=== PATIENT | female | born 1955 | race Caucasian/White ===

== ENCOUNTER 2023-05-11 13:53 | Outpatient (OUT) | payer MEDICARE, OTHER, SELFPAY ==
--- NOTE | 2023-05-11 14:03 | MM_ITS ---
Patient Name: BETH DONOVAN MR#: [id number] : 1955 Exam Date: 05/11/2023 Ordering Doctor: DR ADI GRANT M.D. RADIOLOGY REPORT PROCEDURE: MM TOMOSYNTHESIS SCREENING BI COMPARISON: MG MAMM SCREEN 3D ALFA CAD, 05/11/2022. MG MAMM SCREEN 3D ALFA CAD, 05/05/2021. MG MAMM SCREEN ALFA W CAD, 05/05/2020. MG MAMM ALFA SCRN W CAD DIG, 04/19/2013. INDICATIONS: screening Calculator Name NCI Breast Cancer Risk Assessment Tool 5 Year Breast Cancer Risk 3.00% Lifetime Breast Cancer Risk 10.60% Personal Breast Cancer No Personal Ovarian Cancer No Treatments None Family Cancers Mother with breast cancer at age 75; Aunt-maternal with breast cancer at age ~70; Brother with kidney cancer at age ~50. LOCATION: [facility] BREAST COMPOSITION: Almost entirely fatty. FINDINGS: DIAGNOSTIC CATEGORY 2--BENIGN FINDING: RIGHT BREAST: No significant suspicious finding. Scattered benign-appearing calcifications are present. No significant change has occurred. LEFT BREAST: No significant suspicious finding. Scattered benign-appearing calcifications are present. No significant change has occurred. RECOMMENDATIONS: ROUTINE MAMMOGRAM AND CLINICAL EVALUATION IN 12 MONTHS. PLEASE NOTE: A NORMAL MAMMOGRAM DOES NOT EXCLUDE THE POSSIBILITY OF BREAST CANCER. A CLINICALLY SUSPICIOUS PALPABLE LUMP SHOULD BE BIOPSIED. Dictated by: Abdias Romeo M.D. on 05/11/2023 at 15:47 Approved by: Abdias Romeo M.D. on 05/11/2023 at 15:53
== END 2023-05-11 13:54 | disposition home or self-care (01) ==
LOC: MAMMO 13:58
PROVIDERS: PCP Internal Medicine; Visit Provider Internal Medicine
DX: Z12.31 Encounter for screening mammogram for malignant neoplasm of breast (principal); Z80.3 Family history of malignant neoplasm of breast; Z80.8 Family history of malignant neoplasm of other organs or systems
CPT/HCPCS: 77063; 77067

== ENCOUNTER 2023-05-14 23:20 | Inpatient (IN) | payer MEDICARE, OTHER, SELFPAY ==
[2023-05-14 23:23] VITALS: BP 176/76; PULSE 74; RESP 16; TEMP 37.1; O2SAT 95; BMI 44.6
--- OUTSIDE RECORDS SUMMARY | 2023-05-14 23:28 | XMS_ITS | CCD ---
Author Name Unknown Address [address] [place] [address] Organization [facility] Care Team Providers Care Ultimate Hoops Trainer Name Role Phone Ronnie Murphy Unavailable Unavailable Update Needed Unavailable Unavailable Asad Joiner Unavailable Unavailable Unavailable Unavailable Unavailable Ronnie Murphy Unavailable Unavailable Luana Cox Unavailable Unavailable Update Needed Unavailable Unavailable Unavailable Unavailable Unavailable Unavailable Unavailable Unavailable Bello Hilton II Primary Care Unavail able Irma, Dr. Nguyễn Referring Unavaila ble Traboulssyevgeniy, Dr. Nguyễn Attending Unavaila ble LAVERTU, Dr. RONNIE Clark Referring Unavailabl e KATHERINE, Dr. RONNIE Clark Attending UnavailBello Whatley IIxton Primary Care Unavail able Lilliam Montejo Unavailable Nikki Manning Unavailable MISC, DR GONZALEZ Attending Unavailable MISC, DR GONZALEZ Consulting Unavailable MISC, DR GONZALEZ Primary Care Unavailable MISC, DR GONZALEZ Admitting Unavailable ZIEBER, DR ABDIAS Chowdhury Consulting Unavailable DR BELLO HILTON Primary Care Unavailable HEMMER, DR MIKALA Greenberg Attending Unavailable HEMMER, DR MIKALA Greenberg Admitting Unavailable HEMMER, DR MIKALA Greenberg Consulting Unavailable LILLIAM MONTEJO Admitting Unavailable MISCortez, DR GONZALEZ Primary Care Unavailable LILLIAM MONTEJO Attending Unavailable LILLIAM MONTEJO Consulting Unavailable MISC, DR GONZALEZ Primary Care Unavailable MAYCO RENEE Attending Unavailable MAYCO RENEE Consulting Unavailable MAYCO RENEE Admitting Unavailable ANASTACIO BARBOZA Consulting Unavailable [place], Zeyad Consulting Unavailable Unavailable Primary Care Provider UnavailRONNIE Pierson Attending Unavailable Ben Wasserman Admitting Unavailab Ben Melendez Attending Unavailab Bello Yost Primary Care Unavailable Bello Hilton Primary Care Unavailable Lilliam Montejo Admitting Unavailable Lilliam Montejo Attending Unavailable Medications Current Medications Medication Drug Class(es) Dates Sig (Normalized) Sig (Original) 0.5 ML tirzepatide 5 MG/ML Auto-Injector [Mounjaro] (7 sources) Start: 10-19-2022 Mounjaro 2.5 MG/0.5ML as directed Subcutaneous weekly for 30 days E11.65 Rx Bin [id number], Group: [id number], PCN 3F, ID: [id number] Sep, Active Mounjaro 2.5 MG/ 0.5ML as directed Subcutaneous weekly for 30 days E11 Rx Bin [id number], Group: [id number], PCN 3F, ID: [id number]-- NOT covered Not-Taking Mounjaro 2.5 MG/ 0.5ML as directed Subcutaneous weekly for 30 days E11 Rx Bin [id number], Group: [id number], PCN 3F, ID: [id number]-- NOT covered Active Cholecalciferol (14 sources) Vitamin D Vitamin D3 1.25 MG (18725 UT) TAKE 1 CAPSULE BY MOUTH WEEKLY FOR 56 DAYS for 56 Not-Taking/PRN take 1 capsule by mouth once rishi ly Cholecalciferol 1.25 MG (15340 UT) 1 capsule Orally weekly for 56 days when complete take 4000 u daily OTC Active levothyroxine sodium 0.1 mg oral tablet (20 sources) l-Thyroxine Start: 01-09-2021 take 1 tablet by mouth once daily levothyroxine (Synthroid, Levoxyl) 100 mcg tablet Take 1 tablet (100 mcg) by mouth once daily. 0 01/09/2021 Active Start: 01-09-2021 Levothyroxine Sodium 100 MCG Oral Tablet Quantity: 30 Refills: 0 Ordered: 07-Feb-2021 DO Start : 09-Jan-2021 Active take 1 tablet by poli th once daily in the morning Synthroid 100 MCG 1 tablet in the morning on an empty stomach Orally Once a day Active End: 02-22-2023 levothyroxine (Synthroid) 25 mcg tablet Synthroid 25 MCG Oral Tablet Refills: 0 Active 0 02/22/2023 Discontinued (Therapy completed) Synthroid 25 MCG Oral Tablet Quantity: 0 Refills: 0 Ordered: 11-Dec-2013 DO Active LORazepam 0.5 mg oral tablet (14 sources) Benzodiazepine LORazepam (Ativa n) 0.5 mg tablet Ativan 0.5 MG Oral Tablet Refills: 0 Active 0 Active Ativan 0.5 MG Or al Tablet Quantity: 0 Refills: 0 Ordered: 11-Dec-2013 DO Active metFORMIN hydrochloride 500 mg oral tablet (16 sources) Biguanide take 1 tablet by poli th every twenty-four hours metFORMIN HCl 500 MG 1 tablet with a meal Orally Once a day Active take 1 tablet by poli th twice daily at mealtime metFORMIN (Glucophage) 500 mg tablet Adal e 1 tablet (500 mg) by mouth 2 times a day with meals. 0 Active omeprazole 20 mg delayed release oral capsule (20 sources) Proton Pump Inhibitor Start: 08-02-2019 take 1 capsule by mouth twice daily omeprazole (PriLOSEC) [address] capsule Take 1 capsule (20 mg) by mouth 2 times a day. 0 02/12/2020 Active Start: 05-11-2018 take 1 tablet by poli th twice daily Omeprazole 20 MG Oral Tablet Delayed Release TAKE 1 TABLET BY MOUTH TWICE DAILY Quantity: 180 Refills: 2 Ronnie Murphy MD Start : 11-May-2018 Active risperiDONE 2 mg oral tablet (20 sources) Atypical Antipsychotic Start: 11-28-2014 take 1 tablet by mouth once daily at bedtime risperiDONE (RisperDAL) 2 mg tablet Take 1 tablet (2 mg) by mouth once daily at bedtime. 0 11/28/2014 Active Start: 11-28-2014 risperiDONE 2 MG Oral Tablet Quantity: 30 Refills: 0 Ordered: 17-Jan-2015 DO Start : 28-Nov-2014 Active simvastatin 40 mg oral tablet (20 sources) HMG-CoA Reductase Inhibitor take 1 tablet by mouth every twenty-four hours Zocor 40 MG 1 tablet in the evening Orally Once a day Active Simvastatin 40 M G Oral Tablet Quantity: 0 Refills: 0 Ordered: 11-Dec-2013 DO Active 24 hr venlafaxine 75 mg extended release oral capsule (20 sources) Serotonin and Norepinephrine Reuptake Inhibitor take 1 capsule by mouth every twelve hours Effexor XR 75 MG 1 capsule with food Orally bid Active take 1 tablet by poli th twice daily at mealtime venlafaxine (Effexor) 75 mg tablet Take 1 tablet (75 mg) by mouth 2 times a day with meals. 0 Active Effexor 75 MG TA BS Quantity: 0 Refills: 0 Ordered: 11-Dec-2013 DO Active Completed/Discontinued Medications Medication Drug Class(es) Dates Sig (Normalized) Sig (Original) dexamethasone 6 mg oral tablet (12 sources) Corticosteroid Start: 04-20-2020 take 1 tablet by mouth every twenty-four hours dexAMETHasone 6 MG 1 tablet Orally Once a day for 5 day(s) Apr, Not-Taking/PRN dextromethorphan hydrobromide 30 mg / pyrilamine maleate 30 mg oral tablet (12 sources) Uncompetitive F-cvxajw-H-aspartat e Receptor Antagonist, Sigma-1 Agonist Start: 04-20-2020 take 1 tablet by mouth every six hours [place] DMT 30-30 MG 1 tablet Orally every 6 hours for 7 days Apr, Not-Taking/PRN 12 hr hyoscyamine sulfate 0.375 mg extended release oral tablet (4 sources) Start: 10-17-2014 take 1 tablet by mouth every twelve hours as needed Hyoscyamine Sulfate ER 0.375 MG Oral Tablet Extended Release 12 Hour TAKE 1 TABLET BY MOUTH EVERY 12 HOURS NEEDED FOR SWEATING Quantity: 60 Refills: 0 Start : 17-Oct-2014 Active 3 ml liraglutide 6 mg/ml pen injector (4 sources) GLP-1 Receptor Agonist Start: 02-01-2023 Victoza 18 MG/3ML 0.6 mg Subcutaneous daily for 30 days Start Victoza at 0.6 mg sq daily x 1 week, increase by 0.6 mg weekly to max dose of 1.8 mg. Hold escalation for toleration issues and call prescriber for instructions. Jan, Not-Taking/PRN mounjaro 2.5 mg/0.5ml solution pen-injector (1 source) Mounjaro 2.5 MG/0.5ML as directed Subcutaneous weekly for 30 days E11.65 Rx Bin [id number], Group: [id number], PCN 3F, ID: [id number]-- NOT covered Not-Taking/PRN 0.25 mg, 0.5 mg dose 1.5 ml semaglutide 1.34 mg/ml pen injector (8 sources) End: 02-22-2023 semaglutide (Ozempic) 0.25 mg or 0.5 mg(2 mg/1.5 mL) pen injector 1 (one) time per week. 0 02/22/2023 Discontinued (Therapy completed) Ozempic (0.25 or 0.5 MG/DOSE) 2 MG/1.5ML SOPN weekly Quantity: 0 Refills: 0 Ordered: 01-Jun-2022 DO Active terbinafine 250 mg oral tablet (4 sources) Allylamine Antifungal Start: 09-25-2015 take 1 tablet by mouth once daily Terbinafine HCl - 250 MG Oral Tablet TAKE 1 TABLET EVERY DAY Quantity: 30 Refills: 0 Start : 25-Sep-2015 Active Problems Active Problems Problem Classification Problem Date Documented Da te Episodic/Chronic Acute bronchitis (16 sources) Acute bronchitis; Translations: [Acute bronchitis] Episodic Anxiety disorders (16 sources) Mixed anxiety and depressive disorder; Translations: [Other specified anxiety disorders] Chronic Chronic obstructive pulmonary disease and bronchiectasis (16 sources) Bronchitis; Translations: [Bronchitis, not specified as acute or chronic] Episodic Diabetes mellitus with complications (17 sources) Type II diabetes mellitus uncontrolled; Translations: [Type 2 diabetes mellitus with hyperglycemia] Onset: 3 Chronic Diabetes mellitus without complication (4 sources) Diabetes mellitus; Translations: [Diabetes mellitus without mention of complication, type II or unspecified type, not stated as uncontrolled] Onset: 3 01-23-2023 Chronic Disorders of lipid metabolism (20 sources) Hyperlipidemia; Translations: [Other and unspecified hyperlipidemia] Onset: 3 Chronic Esophageal disorders (17 sources) Gastroesophageal reflux disease; Translations: [Esophageal reflux] Onset: 3 01-23-2023 Chronic Fluid and electrolyte disorders (1 source) Dehydration; Translations: [DEHYDRATION] Onset: 3 Episodic Genitourinary symptoms and ill-defined conditions (1 source) Personal history of urinary (tract) infections; Translations: [PERS HX URINARY TRACT INFECTIONS] Onset: 3 Episodic Heart valve disorders (1 source) Rheumatic disorders of both mitral and aortic valves; Translations: [RHEUMATIC D/O MITRAL AORTIC VALVES] Onset: 3 Chronic Malaise and fatigue (6 sources) Other fatigue; Translations: [Weakness] Onset: 3 Episodic Menopausal disorders (1 source) Hormone replacement therapy; Translations: [HORMONE REPLACEMENT THERAPY] Onset: 3 Episodic Nausea and vomiting (1 source) Nausea with vomiting, unspecified; Translations: [NAUSEA WITH VOMITING UNSPECIFIED] Onset: 3 Episodic Nutritional deficiencies (14 sources) Vitamin D deficiency; Translations: [Vitamin D deficiency, unspecified] Onset: 3 Chronic Other aftercare (1 source) intermodal dispatcher (current) use of oral hypoglycemic drugs; Translations: [PRODUCT DEVELOPMENT WORKER USE ORAL HYPOGLYCEMIC DX] Onset: 3 Episodic Other aftercare (1 source) Other intermodal dispatcher (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; Translations: [OTH PRODUCT DEVELOPMENT WORKER CURRENT DRUG THERAPY] Onset: 3 Episodic Other ear and sense organ disorders (12 sources) Impacted cerumen; Translations: [Impacted cerumen] Episodic Other gastrointestinal disorders (17 sources) Dysphagia; Translations: [Dysphagia, unspecified] Onset: 3 01-23-2023 Episodic Other gastrointestinal disorders (5 sources) Heartburn; Translations: [HEARTBURN] Onset: 3 Episodic Other gastrointestinal disorders (1 source) Diarrhea, unspecified; Translations: [DIARRHEA UNSPECIFIED] Onset: 3 Episodic Other lower respiratory disease (4 sources) Dyspnea; Translations: [Other respiratory abnormalities] Onset: 3 01-23-2023 Episodic Other lower respiratory disease (4 sources) Snoring Episodic Other nutritional; endocrine; and metabolic disorders (16 sources) Body mass index 40+ - severely obese; Translations: [Morbid obesity] Onset: 3 01-23-2023 Chronic Other nutritional; endocrine; and metabolic disorders (20 sources) Obesity; Translations: [Obesity, unspecified] Chronic Other nutritional; endocrine; and metabolic disorders (12 sources) Obesity, unspecified; Translations: [OBESITY UNSPECIFIED] Onset: 3 Chronic Other nutritional; endocrine; and metabolic disorders (8 sources) Body mass index (BMI) 40.0-44.9, adult Chronic Other screening for suspected conditions (not mental disorders or infectious disease) (8 sources) Echocardiogram abnormal; Translations: [Nonspecific (abnormal) findings on radiological and other examination of other intrathoracic organs] Onset: 3 Episodic Other upper respiratory disease (18 sources) Stenosis of trachea; Translations: [Other diseases of trachea and bronchus] Onset: 3 02-22-2023 Episodic Other upper respiratory disease (2 sources) Other specified diseases of upper respiratory tract; Translations: [Other specified diseases of upper respiratory tract] Onset: 3 Episodic Residual codes; unclassified (3 sources) Sleep apnea; Translations: [Unspecified sleep apnea] Chronic Residual codes; unclassified (13 sources) Obstructive sleep apnea syndrome; Translations: [Obstructive sleep apnea (adult) (pediatric)] Onset: 3 01-23-2023 Chronic Residual codes; unclassified (9 sources) Obstructive sleep apnea (adult) (pediatric); Translations: [OBSTRUCTIVE SLEEP APNEA] Onset: 3 Chronic Residual codes; unclassified (1 source) Never smoked any substance; Translations: [Other specified health status] Onset: 3 01-23-2023 Episodic Thyroid disorders (20 sources) Hypothyroidism; Translations: [Unspecified acquired hypothyroidism] Onset: 3 Chronic Comment on above: Added by Problem Lis t Migration; 2013-02-28; Moved to Suppressed Mar 24 2013 9:03PM; Unclassified (1 source) CONTACT W/AND (SUSP) EXPOS COVID-19; Translations: [CONTACT W/AND (SUSP) EXPOS COVID-19] Onset: 3 Unclassified (1 source) Dietary counseling and surveillance; Translations: [Dietary counseling and surveillance] Onset: 3 Past or Other Problems Problem Classification Problem Date Documented Da te Episodic/Chronic Other lower respiratory disease (1 source) Other forms of dyspnea; Translations: [OTHER FORMS OF DYSPNEA] Onset: 05-13-2022 Episodic Residual codes; unclassified (1 source) Localized edema; Translations: [LOCALIZED EDEMA] Onset: 05-13-2022 Episodic Residual codes; unclassified (1 source) Family history of malignant neoplasm of breast; Translations: [FAMILY HX MALIG NEOPLASM OF BREAST] Onset: 05-13-2022 Episodic Residual codes; unclassified (1 source) Family history of malignant neoplasm of kidney; Translations: [FAM HX MALIGNANT NEOPLASM KIDNEY] Onset: 05-13-2022 Episodic Unclassified (1 source) Exposure to 2019 novel coronavirus; Translations: [Contact with and (suspected) exposure to COVID19] Unclassified (3 sources) Never smoked tobacco; Translations: [Never a smoker] Unclassified (1 source) Onset: 02-22-2023 02-22-2023 NEGATED: Highlighted row has not occurred!Residual codes; unclassified (12 sources) Disease Episodic Results Test Name Value Interpretation Reference Range Facility GLYCOHEMOGLOBIN A1Con 2022 ADA RECOMMENDATION SEE BELOW Normal [facility] Comment on above: Result Comment: ADA RECOMMENDED LIMIT 4.0 - 6.0 ADA THERAPEUTIC TARGET < 7.0 ACTION SUGGESTED > 7.0 Performed By: #### P TT, PT #### [facility] [address] [place] [address] Dr. Vivian Fall Glucose [Mass/Vol] 120 mg/dL Normal [facility] Comment on above: Performed By: #### P TT, PT #### [facility] [address] [place] [address] Dr. Vivian Fall HbA1c (Bld) [Mass fraction] 5.8 % Normal 4.5-6.2 [facility] Comment on above: Performed By: #### P TT, PT #### [facility] [address] [place] [address] Dr. Vivian Fall LIPID PROFILEon 09-02-2022 CHOL-HDL RATIO NORM SEE BELOW Normal [facility] Comment on above: Result Comment: 3.3 - 4.4 LOW RISK 4.4 - 7.1 AVERAGE RISK 7.1 - 11.0 MODERATE RISK >11.0 HIGH RISK Performed By: #### P TT, PT #### [facility] [address] [place] [address] Dr. Vivian Fall Cholesterol [Mass/Vol] 171 mg/dL Normal <=200 [facility] Comment on above: Performed By: #### P TT, PT #### [facility] [address] [place] [address] Dr. Vivian Fall Cholesterol in HDL [Mass/Vol] 52 mg/dL Normal 40-60 [facility] Comment on above: Performed By: #### P TT, PT #### [facility] [address] [address] [address] Vivian Fall Cholesterol in LDL [Mass/Vol] 89.8 mg/dL Normal [facility] Comment on above: Performed By: #### P TT, PT #### [facility] [address] [place] [address] Dr. Vivian Fall Cholesterol.total/ Cholesterol in HDL [Mass ratio] 3.3 {ratio} Normal [facility] Comment on above: Performed By: #### P TT, PT #### [facility] [address] [place] [address] Dr. Vivian Fall HDL NORMAL > or = 60 mg/dl - LO W CARDIOVASCULAR RISK <40 mg/dl - HIGH CARDIOVASCULAR RISK Normal [facility] Comment on above: Performed By: #### P TT, PT #### [facility] [address] [place] [address] Dr. Vivian Fall LDL CALC NORMAL SEE BELOW Normal [facility] Comment on above: Result Comment: <100 mg/dl OPTIMAL 100 - 129 mg/dl NEAR OR ABOVE OPTIMAL 130 - 159 mg/dl BORDERLINE HIGH 160 - 189 mg/dl HIGH >190 mg/dl VERY HIGH Performed By: #### P TT, PT #### [facility] [address] [place] [address] Dr. Vivian Fall Triglyceride [Mass/Vol] 146 mg/dL Normal <=150 [facility] Comment on above: Performed By: #### P TT, PT #### [facility] [address] [place] [address] Dr. Vivian Fall VLDL CALC 29.2 mg/dL Normal [facility] Comment on above: Performed By: #### P TT, PT #### [facility] [address] [place] [address] Dr. Vivian Fall PROF 14(COMP METB)on 023 Albumin [Mass/Vol] 3.6 g/dL Normal 3.4-5.0 [facility] Comment on above: Performed By: #### C MP, LIPID #### [facility] [address] [place] [address] Dr. Vivian Fall Albumin/Globulin [Mass ratio] 0.9 {ratio} Normal [facility] Comment on above: Performed By: #### C MP, LIPID #### [facility] [address] [place] [address] Dr. Vivian Fall ALP [Catalytic activity/Vol] 81 U/L Normal 46-116 [facility] Comment on above: Performed By: #### C MP, LIPID #### [facility] [address] [place] [address] Dr. Vivian Fall ALT [Catalytic activity/Vol] 22 U/L Normal 14-59 [facility] Comment on above: Performed By: #### C MP, LIPID #### [facility] [address] [place] [address] Dr. iVvian Fall Anion gap [Moles/Vol] 12.5 mmol/L Normal [facility] Comment on above: Performed By: #### C MP, LIPID #### [facility] [address] [place] [address] Dr. Vivian Fall AST [Catalytic activity/Vol] 15 U/L Normal 15-37 [facility] Comment on above: Performed By: #### C MP, LIPID #### [facility] [address] [place] [address] Dr. Vivian Fall Bilirubin [Mass/Vol] 0.6 mg/dL Normal 0.2-1.0 [facility] Comment on above: Performed By: #### C MP, LIPID #### [facility] [address] [place] [address] Dr. Vivian Fall Calcium [Mass/Vol] 9.1 mg/dL Normal 8.5-10.1 [facility] Comment on above: Performed By: #### C MP, LIPID #### [facility] [address] [place] [address] Dr. Vivian Fall Chloride [Moles/Vol] 103 mmol/L Normal 98-107 [facility] Comment on above: Performed By: #### C MP, LIPID #### [facility] [address] [place] [address] Dr. Vivian Fall CO2 [Moles/Vol] 27.6 mmol/L Normal 21.0-32.0 [facility] Comment on above: Performed By: #### C MP, LIPID #### [facility] [address] [place] [address] Dr. Vivian Fall Creatinine [Mass/Vol] 0.78 mg/dL Normal 0.55-1.02 [facility] Comment on above: Performed By: #### C MP, LIPID #### [facility] [address] [place] [address] Dr. Vivian Fall EGFR-AF BRAZILIAN >60 Normal >=60 [facility] Comment on above: Performed By: #### C MP, LIPID #### [facility] [address] [place] [address] Dr. Vivian Fall EGFR-NON AF BRAZILIAN >60 Normal >=60 [facility] Comment on above: Performed By: #### C MP, LIPID #### [facility] [address] [place] [address] Dr. Vivian Fall Globulin (S) [Mass/Vol] 3.8 g/dL Normal [facility] Comment on above: Performed By: #### C MP, LIPID #### [facility] [address] [place] [address] Dr. Vivian Fall Glucose [Mass/Vol] 105 mg/dL Normal 74-106 [facility] Comment on above: Performed By: #### C MP, LIPID #### [facility] [address] [place] [address] Dr. Vivian Fall Potassium [Moles/Vol] 4.1 mmol/L Normal 3.5-5.1 [facility] Comment on above: Performed By: #### C MP, LIPID #### [facility] [address] [place] [address] Dr. Vivian Fall Protein [Mass/Vol] 7.4 g/dL Normal 6.4-8.2 [facility] Comment on above: Performed By: #### C MP, LIPID #### [facility] [address] [place] [address] Dr. Vivian Fall Sodium [Moles/Vol] 139 mmol/L Normal 136-145 [facility] Comment on above: Performed By: #### C MP, LIPID #### [facility] [address] [place] [address] Dr. Vivian Fall Urea nitrogen [Mass/Vol] 11.0 mg/dL Normal 7.0-18.0 [facility] Comment on above: Performed By: #### C MP, LIPID #### [facility] [address] [place] [address] Dr. Vivian Fall Urea nitrogen/Creatinin e [Mass ratio] 14.1 mg/mg Normal [facility] Comment on above: Performed By: #### C MP, LIPID #### [facility] [address] [place] [address] Dr. Vivian Fall VITAMIN B12on 09-02-2022 Cobalamin (Vitamin B12) [Mass/Vol] 373.0 pg/mL Normal 193.0-986.0 [facility] Comment on above: Performed By: #### P TT, PT #### [facility] [address] [place] [address] Dr. Vivian Fall VITAMIN D 25 OHon 09-02-2022 VIT D 25-OH 16.1 ng/mL Normal [facility] Comment on above: Performed By: #### P TT, PT #### [facility] [address] [place] [address] Dr. Vivian Fall VIT D RANGES SEE BELOW Normal [facility] Comment on above: Result Comment: <20 ng/mL Vit D deficient 20 - <30 ng/mL Vit D insufficient 30 - 100 ng/mL Vit D sufficient >100 ng/mL Potential Toxicity Performed By: #### P TT, PT #### [facility] [address] [place] [address] Dr. Vivian Fall BNPon 06-29-2022 Natriuretic peptide B (Bld) [Mass/Vol] 223.0 pg/mL Normal <=900.0 [facility] Comment on above: Performed By: #### C MP, HSTROPN, BNP #### [facility] [address] [place] [address] Dr. Vivian Fall CBC AUTO DIFFon 06-29-2022 BASO # 0.0 103/ul Normal 0.0-0.1 [facility] Comment on above: Performed By: #### C BC #### [facility] [address] [place] [address] Dr. Vivian Fall Basophils/100 WBC (Bld) 0.2 % Normal 0.2-2.0 [facility] Comment on above: Performed By: #### C BC #### [facility] [address] [place] [address] Dr. Vivian Fall EO # 0.0 103/ul Normal 0.0-0.7 [facility] [facility] Comment on above: Performed By: #### C BC #### [facility] [address] [place] [address] Dr. Vivian Fall Eosinophils/100 WBC (Bld) 0.0 % Critically low 0.9-7.0 [facility] Comment on above: Performed By: #### C BC #### [facility] [address] [place] [address] Dr. Vivian Fall Erythrocyte distribution width (RBC) [Ratio] 13.0 % Normal 11.0-15.0 [facility] Comment on above: Performed By: #### C BC #### [facility] [address] [place] [address] Dr. Vivian Fall Hematocrit (Bld) [Volume fraction] 36.2 % Normal 36.0-48.0 [facility] Comment on above: Performed By: #### C BC #### [facility] [address] [place] [address] Dr. Vivian Fall Hemoglobin (Bld) [Mass/Vol] 12.2 g/dL Normal 12.0-16.0 [facility] Comment on above: Performed By: #### C BC #### [facility] [address] [place] [address] Dr. Vivian Fall IG # 0.08 10e3/ul Critically high 0.00-0.03 [facility] Comment on above: Performed By: #### C BC #### [facility] [address] [address] [address] Vivian Fall IG % 1.3 % Critically high 0.0-0.5 [facility] Comment on above: Performed By: #### C BC #### [facility] [address] [place] [address] Dr. Vivian Fall LYMPH # 0.3 103/ul Critically low 1.2-3.8 [facility] Comment on above: Performed By: #### C BC #### [facility] [address] [place] [address] Dr. Vivian Fall Lymphocytes/100 WBC (Bld) 4.2 % Critically low 20.5-60.0 [facility] Comment on above: Performed By: #### C BC #### [facility] [address] [place] [address] Dr. Vivian Fall MANUAL DIFF REQ NO Normal [facility] Comment on above: Performed By: #### C BC #### [facility] [address] [place] [address] Dr. Vivian Fall MCH (RBC) [Entitic mass] 29.2 pg Normal 26.7-34.0 [facility] Comment on above: Performed By: #### C BC #### [facility] [address] [place] [address] Dr. Vivian Fall MCHC (RBC) [Mass/Vol] 33.7 g/dL Normal 29.9-35.2 [facility] Comment on above: Performed By: #### C BC #### [facility] [address] [place] [address] Dr. Vivian Fall MCV (RBC) [Entitic vol] 86.6 fL Normal 81.0-99.0 [facility] Comment on above: Performed By: #### C BC #### [facility] [address] [place] [address] Dr. Vivian Fall MONO # 0.2 103/ul Critically low 0.3-0.8 [facility] Comment on above: Performed By: #### C BC #### [facility] [address] [place] [address] Dr. Vivian Fall Monocytes/100 WBC (Bld) 3.5 % Normal 1.7-12.0 [facility] Comment on above: Performed By: #### C BC #### [facility] [address] [place] [address] Dr. Vivian Fall NEUT # 5.7 103/ul Normal 1.4-6.5 [facility] Comment on above: Performed By: #### C BC #### [facility] [address] [place] [address] Dr. Vivian Fall Neutrophils/100 WBC (Bld) 90.8 % Critically high 43.0-75.0 [facility] Comment on above: Performed By: #### C BC #### [facility] [address] [place] [address] Dr. Vivian Fall Platelet mean volume (Bld) [Entitic vol] 9.8 fL Normal 9.5-13.5 [facility] Comment on above: Performed By: #### C BC #### [facility] [address] [place] [address] Dr. Vivian Fall PLT 224 103/ul Normal 150-450 [facility] Comment on above: Performed By: #### C BC #### [facility] [address] [place] [address] Dr. Vivian Fall RBC 4.18 106/ul Critically low 4.20-5.40 [facility] Comment on above: Performed By: #### C BC #### [facility] [address] [place] [address] Dr. Vivian Fall WBC 6.3 103/ul Normal 4.0-11.0 [facility] Comment on above: Performed By: #### C BC #### [facility] [address] [place] [address] ABD/PELVIS WO CONon 06-29 CT ABD/PELVIS WO CON EXAMINATION: CT ABD/PELVIS WO CON, 06/29/2022 10:19 AM EST HISTORY: Altered mental status. COMPARISON: None. TECHNIQUE: CT scan of the abdomen and pelvis was performed without IV contrast. CT dose reduction technique was used, including Automated Exposure Control. FINDINGS: Lower chest: Unremarkable. Solid organs: The liver is enlarged measuring 21.5 cm in longitudinal dimension. There may be a gallstone within the gallbladder however this is not definite. There is no biliary dilatation. There is moderate fatty infiltration of the pancreatic head and mild fatty infiltration of the pancreatic body and tail. The pancreas is otherwise unremarkable. The spleen is normal size. There is a nonspecific 1.2 cm right adrenal nodule measuring 37 Hounsfield units. The left adrenal gland is unremarkable. The right kidney is nonrotated, a variant of normal. The bilateral kidneys are otherwise unremarkable. Bowel: There is a moderate amount of stool within the colon. The colon is unremarkable. The appendix is unremarkable. The distal esophagus, stomach and small bowel are unremarkable. The bowel gas pattern is nonobstructive. Vasculature: There is a small atheromatous calcification at the origin of the left main renal artery. The abdominal aorta is normal size. The inferior vena cava is unremarkable. Inflammation: There is no free air or free fluid. There is no inflammatory process. Lymphadenopathy: The gastrohepatic lymph nodes measure up to 1.5 x 0.6 cm. The periportal lymph nodes measure up to 1.5 x 1.0 cm and 1.5 x 1.3 cm. The periportal lymph nodes measure up to 1.8 x 0.8 cm and 1.8 x 1.2 cm. There are no pathologically enlarged mesenteric, retroperitoneal, iliac chain, pelvic or inguinal lymph nodes. Pelvis: The urinary bladder is almost completely collapsed and otherwise grossly unremarkable. The uterus and adnexal regions are grossly unremarkable. Osseous: Multilevel degenerative changes spine. IMPRESSION: Nonobstructive bowel gas pattern with a moderate amount of stool within the colon. There is no inflammatory process. The liver is enlarged measuring 21.5 cm in longitudinal dimension. There may be a gallstone within the gallbladder however this is not definite. There is no biliary dilatation. Moderate fatty infiltration of the pancreatic head and mild fatty infiltration of the pancreatic body and tail. Nonspecific 1.2 cm right adrenal nodule measuring 37 Hounsfield units. Mildly enlarged periportal and portacaval lymph nodes measuring up to 1.5 x 1.3 cm within the periportal region and 1.8 x 1.2 cm within the portal caval region. A follow-up CT examination of the abdomen/pelvis with intravenous contrast in 3 months is recommended to confirm stability. Electronically authenticated by: ANASTACIO BARBOZA Date: 2022-06-29 11:26 Normal [facility] CULTURE BLOODon 06-29-2022 Microscopic examination of blood, culture Culture Observations: NO GROWTH AT 5 DAYS. Isolate 1 BC_[id number] Normal [facility] Comment on above: Performed By: #### P TT, PT #### [facility] [address] [place] [address] Dr. Vivian Fall Microscopic examination of blood, culture Culture Observations: NO GROWTH AT 5 DAYS. Isolate 1 BC_[id number] Normal [facility] Comment on above: Performed By: #### P TT, PT #### [facility] [address] [place] [address] Dr. Vivian Fall CULTURE URINEon 06-29-2022 CULTURE URINE Culture Observations : NO GROWTH. Normal [facility] Comment on above: Performed By: #### P TT, PT #### [facility] [address] [place] [address] Dr. Vivian Fall Covid-19 PCR (CVDTBH)on 06-03 SARS-CoV-2 (COVID-19) RNA JONY+probe Ql (Unsp spec) Not detected Normal NOT DETECTED [facility] Comment on above: Result Comment: When diagnostic testing is negative, the possibility of a false negative should be considered in the context of a patient's recent exposures and the presence of clinical signs and symptoms consistent with SARS-CoV-2. This test is not yet approved or cleared by the [place] FDA. When there are no FDA-approved or cleared tests available, and other criteria are met, FDA can make tests available under an emergency access mechanism called an Emergency Use Authorization (EUA). The EUA for this test is supported by the Engineering Librarian of Health and Human Service's declaration that circumstances exist to justify the emergency use of in vitro diagnostics for the detection and/or diagnosis of the virus that causes COVID-19. This EUA will remain in effect for the duration of the COVID-19 declaration justifying emergency of IVDs, unless it is terminated or revoked by the FDA (after which the test may no longer be used). Performed By: #### C VDTBH #### [facility] [address] [place] [address] Dr. Vivian Fall ER URINE PROFILEon 3 Bilirubin Ql (U) SMALL Abnormal NEGATIVE [facility] Comment on above: Performed By: #### P TT, PT #### [facility] [address] [place] [address] Dr. Vivian Fall Clarity (U) CLEAR Normal CLEAR [facility] Comment on above: Performed By: #### P TT, PT #### [facility] [address] [address] [address] Vivian Fall Color (U) DK. YELLOW Normal YELLOW [facility] Comment on above: Performed By: #### P TT, PT #### [facility] [address] [place] [address] Dr. Vivian LANGE A micrscopic examina tion will be performed if indicated. Normal [facility] Comment on above: Performed By: #### P TT, PT #### [facility] [address] [place] [address] Dr. Vivian Fall Glucose Ql (U) Negative Normal NEGATIVE [facility] Comment on above: Performed By: #### P TT, PT #### [facility] [address] [place] [address] Dr. Vivian Fall Hemoglobin Ql (U) TRACE-INTACT Abnormal NEGATIVE [facility] Comment on above: Performed By: #### P TT, PT #### [facility] [address] [place] [address] Dr. Vivian Fall Ketones Ql (U) Negative Normal NEGATIVE [facility] Comment on above: Performed By: #### P TT, PT #### [facility] [address] [place] [address] Dr. Vivian Fall LEUKOCYTES Negative Normal NEGATIVE [facility] Comment on above: Performed By: #### P TT, PT #### [facility] [address] [place] [address] Dr. Vivian Fall Nitrite Ql (U) Negative Normal NEGATIVE [facility] Comment on above: Performed By: #### P TT, PT #### [facility] [address] [place] [address] Dr. Vivian Fall pH (U) 6.0 [pH] Normal 5-9 [facility] Comment on above: Performed By: #### P TT, PT #### [facility] [address] [place] [address] Dr. Vivian Fall Protein (U) [Mass/Vol] 100 mg/dL Abnormal NEGATIVE/ TRACE [facility] Comment on above: Performed By: #### P TT, PT #### [facility] [address] [place] [address] Dr. Vivian Fall SPEC GRAVITY >=1.030 Abnormal 1.005-<=1.02 5 [facility] Comment on above: Performed By: #### P TT, PT #### [facility] [address] [place] [address] Dr. Vivian Fall UR MICRO IND INDICATED Normal [facility] Comment on above: Performed By: #### P TT, PT #### [facility] [address] [place] [address] Dr. Vivian Fall Urobilinogen Qn (U) 1.0 {Nia'U}/dL Normal 0.2 - 1.0 [facility] Comment on above: Performed By: #### P TT, PT #### [facility] [address] [place] [address] Dr. Vivian Fall LACTATE/LACTIC ACIDon 2022 Lactate [Moles/Vol] 1.3 mmol/L Normal 0.4-1.9 [facility] Comment on above: Performed By: #### L ACT #### [facility] [address] [place] [address] Dr. Vivian Fall Lactate [Moles/Vol] 3.1 mmol/L Critically high 0.4-1.9 [facility] Comment on above: Performed By: #### L ACT #### [facility] [address] [place] [address] Dr. Vivian Fall LIPASEon 06-29-2022 Lipase [Catalytic activity/Vol] 88.0 U/L Normal 73.0-393.0 [facility] Comment on above: Performed By: #### L IPA #### [facility] [address] [place] [address] Dr. Vivian Fall PROF 14(COMP METB)on 023 Albumin [Mass/Vol] 3.4 g/dL Normal 3.4-5.0 [facility] Comment on above: Performed By: #### C MP, HSTROPN, BNP #### [facility] [address] [place] [address] Dr. Vivian Fall Albumin/Globulin [Mass ratio] 0.9 {ratio} Normal [facility] Comment on above: Performed By: #### C MP, HSTROPN, BNP #### [facility] [address] [place] [address] Dr. Vivian Fall ALP [Catalytic activity/Vol] 145 U/L Critically high 46-116 [facility] Comment on above: Performed By: #### C MP, HSTROPN, BNP #### [facility] [address] [place] [address] Dr. Vivian Fall ALT [Catalytic activity/Vol] 454 U/L Critically high 14-59 [facility] Comment on above: Performed By: #### C MP, HSTROPN, BNP #### [facility] [address] [place] [address] Dr. Vivian Fall Anion gap [Moles/Vol] 15.7 mmol/L Normal [facility] Comment on above: Performed By: #### C MP, HSTROPN, BNP #### [facility] [address] [place] [address] Dr. Vivian Fall AST [Catalytic activity/Vol] 404 U/L Critically high 15-37 [facility] Comment on above: Performed By: #### C MP, HSTROPN, BNP #### [facility] [address] [place] [address] Dr. Vivian Fall Bilirubin [Mass/Vol] 1.4 mg/dL Critically high 0.2-1.0 [facility] Comment on above: Performed By: #### C MP, HSTROPN, BNP #### [facility] [address] [place] [address] Dr. Vivian Fall Calcium [Mass/Vol] 8.7 mg/dL Normal 8.5-10.1 [facility] Comment on above: Performed By: #### C MP, HSTROPN, BNP #### [facility] [address] [address] [address] Vivian Fall Chloride [Moles/Vol] 94 mmol/L Critically low 98-107 [facility] Comment on above: Performed By: #### C MP, HSTROPN, BNP #### [facility] [address] [place] [address] Dr. Vivian Fall CO2 [Moles/Vol] 22.0 mmol/L Normal 21.0-32.0 [facility] Comment on above: Performed By: #### C MP, HSTROPN, BNP #### [facility] [address] [place] [address] Dr. Vivian Fall Creatinine [Mass/Vol] 1.30 mg/dL Critically high 0.55-1.02 [facility] Comment on above: Performed By: #### C MP, HSTROPN, BNP #### [facility] [address] [place] [address] Dr. Vivian Fall EGFR-AF BRAZILIAN 50 mL/min/1.73m2 Critically low >=60 [facility] Comment on above: Performed By: #### C MP, HSTROPN, BNP #### [facility] [address] [place] [address] Dr. Vivian Fall EGFR-NON AF BRAZILIAN 41 mL/min/1.73m2 Critically low >=60 [facility] Comment on above: Performed By: #### C MP, HSTROPN, BNP #### [facility] [address] [place] [address] Dr. Vivian Fall Globulin (S) [Mass/Vol] 3.7 g/dL Normal [facility] Comment on above: Performed By: #### C MP, HSTROPN, BNP #### [facility] [address] [place] [address] Dr. Vivian Fall Glucose [Mass/Vol] 166 mg/dL Critically high 74-106 [facility] Comment on above: Performed By: #### C VERONIKA HSTROPN, BNP #### [facility] [address] [address] [address] Vivian Fall Potassium [Moles/Vol] 3.7 mmol/L Normal 3.5-5.1 [facility] Comment on above: Performed By: #### C VERONIKA HSTROPN, BNP #### [facility] [address] [address] [address] Vivian Fall Protein [Mass/Vol] 7.1 g/dL Normal 6.4-8.2 [facility] Comment on above: Performed By: #### C VERONIKA HSTROPN, BNP #### [facility] [address] [place] [address] Dr. Vivian Fall Sodium [Moles/Vol] 128 mmol/L Critically low 136-145 [facility] Comment on above: Performed By: #### C VERONIKA, HSTROPN, BNP #### [facility] [address] [address] [address] Vivian Fall Urea nitrogen [Mass/Vol] 15.0 mg/dL Normal 7.0-18.0 [facility] Comment on above: Performed By: #### C VERONIKA HSTROPN, BNP #### [facility] [address] [place] [address] Dr. Vivian Fall Urea nitrogen/Creatinin e [Mass ratio] 11.5 mg/mg Normal [facility] Comment on above: Performed By: #### C MP, HSTROPN, BNP #### [facility] [address] [place] [address] Dr. Vivian Fall PROTIMEon 06-29-2022 INR Coag (PPP) [Relative time] 1.08 {INR} [facility] Comment on above: Performed By: #### P TT, PT #### [facility] [address] [place] [address] Dr. Vivian Fall INR GUIDELINES SEE BELOW Normal [facility] Comment on above: Result Comment: DEEJAY RED INR: 2.0 - 3.0 CONDITIONS NOT LISTED BELOW 2.5 - 3.5 FOR PROSTHETIC HEART VALVE REPLACEMENT 2.5 - 3.5 RECURRENT THROMBOSIS Performed By: #### P TT, PT #### [facility] [address] [place] [address] Dr. Vivian Fall PT Coag (PPP) [Time] 11.4 s Normal 9.0-11.6 [facility] Comment on above: Performed By: #### P TT, PT #### [facility] [address] [place] [address] Dr. Vivian Fall PTTon 06-29-2022 aPTT Coag (Bld) [Time] 32.2 s Normal 22.3-36.2 [facility] Comment on above: Performed By: #### P TT, PT #### [facility] [address] [place] [address] Dr. Vivian Fall TROPONIN, HIGH SENSITIVITYon 06-29-2022 HSTROP 5.8 pg/mL Normal 4.0-51.3 [facility] Comment on above: Result Comment: CUT- OFF POINTS HAVE BEEN ESTABLISHED BASED ON THE FOURTH UNIVERSAL DEFINITIONS OF MYOCARDIAL INFARCTION. THE UPPER REFERENCE LIMIT (URL) OF TROPONIN, DEFINED THE 99TH PERCENTILE OF cTnI DISTRIBUTION IN A REFERENCE POPULATION, HAS BEEN CONFIRMED THE DECISION THRESHOLD FOR [place] DIAGNOSIS. Performed By: #### C MP, HSTROPN, BNP #### [facility] [address] [place] [address] Dr. Vivian Fall URINE MICROSCOPIC ONLYon BACTERIA SMALL Abnormal NONE SEEN [facility] Comment on above: Performed By: #### P TT, PT #### [facility] [address] [place] [address] Dr. Vivian Fall Bacteria identified Cx Nom (U) INDICATED Normal [facility] Comment on above: Performed By: #### P TT, PT #### [facility] [address] [place] [address] Dr. Vivian Fall CAST NONE SEEN Normal NONE SEEN [facility] Comment on above: Performed By: #### P TT, PT #### [facility] [address] [place] [address] Dr. Vivian Fall Crystals LM Nom (Urine sed) NONE SEEN Normal NONE SEEN [facility] Comment on above: Performed By: #### P TT, PT #### [facility] [address] [place] [address] Dr. Vivian Fall Epithelial cells LM Ql (Urine sed) FEW Abnormal NONE SEEN /RARE [facility] Comment on above: Performed By: #### P TT, PT #### [facility] [address] [place] [address] Dr. Vivian Fall MUCOUS SMALL Abnormal NONE SEEN [facility] Comment on above: Performed By: #### P TT, PT #### [facility] [address] [place] [address] Dr. Vivian Fall RBC 0-2 Normal 0-2 [facility] Comment on above: Performed By: #### P TT, PT #### [facility] [address] [place] [address] Dr. Vivian Fall WBC 0-2 Abnormal NONE SEEN [facility] Comment on above: Performed By: #### P TT, PT #### [facility] [address] [place] [address] Dr. Vivian Fall XR CHEST 1 Von 06-29-2022 XR CHEST 1 V EXAM: XR CHEST 1 V HISTORY: Altered mental status COMPARISON: None. TECHNIQUE: Frontal view of the chest. FINDINGS: No focal consolidations or pleural effusions. Cardiomegaly. Thoracic spine spondylosis. IMPRESSION: No acute disease. Cardiomegaly. 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 : dyspnea Morbid obesity with BMI of 40.0-44.9, adult, Sleep apnea Healthy Weight Tips; Status:Complete - Retrospective Authorization; Done: 01Jun2022 Some eating tips that can help you lose weight.; Status:Complete - Retrospective Authorization; Done: 01Jun2022 SocHx: Never a smoker Tobacco Use Screening; Status:Complete; Done: 01Jun2022 Patient Instructions Please bring all medicines, vitamins, and herbal supplements with you when you come to the office. Prescriptions will not be filled unless you are compliant with your follow up appointments or have a follow up appointment scheduled as per instruction of your physician. Refills should be requested at the time of your visit. Lexiscan Stress Test. Follow up in 3 months The provider reviewed the following test(s) and result(s) with the patient: ECG Chief Complaint BETH DONOVAN is being seen for a consultation for LVH. History of Present Illness Patient is here for cardiovascular evaluation for abnormal echocardiogram. She is a 67-year-old morbidly obese white female with history of sleep apnea who had the actual recorded measurement does not meet the criteria for that the actual measurement does not meet the criteria for LVH and a question RV dilatation but the study was of very poor quality. Patient admitted to functional class II and may be 3 shortness of breath. She can walk 1-2 blocks but developed shortness of breath. She admits to sedentary lifestyle. She reports history of sleep apnea but she is compliant with her CPAP. The patient have a history of tracheal stenosis and was seen by ENT in the past. The patient had multiple risk factor for ischemic heart disease including age, hyperlipidemia and diabetes mellitus in addition sedentary lifestyle and morbid obesity Plan 1. Borderline abnormal poor quality echocardiogram read at an outlying institution. It suggest ventricular hypertrophy even though the actual measurement does not meet the criteria for LVH in addition there was questionable RV dilatation which I suspect could be related to sleep apnea this quality of the study was poor and limited. 2. Symptoms of dyspnea on exertion appears to be multifactorial related to morbid obesity, sedentary lifestyle and history of tracheal stenosis however underlying ischemic heart disease has to be excluded patient functional class I she is morbidly obese unable to do a treadmill stress test 3. Diabetes mellitus 4. Morbid obesity 5. Sleep apnea compliant with CPAP 6. Hyperlipidemia 7. Reported history of tracheal stenosis has been seen by ENT Plan 1. I reassured the patient in regard to her echo finding that appears to be nonspecific and could be consistent with sleep apnea 2. I recommended proceeding with Lexiscan myocardial fusion study in view of complaint of shortness of breath functional class almost 3 with inability to do treadmill due to morbid obesity 3. We discussed primary prevention for coronary artery disease at great length 4. I encouraged her to continue her efforts to lose weight and exercise 5. Follow-up after testing is done Surgical History Problems History of Breast surgery History of Complete colonoscopy History of Hernia repair Current Meds Medication NameInstruction Effexor 75 MG TABSTAKE 1 TABLET TWICE DAILY WITH MEALS. Levothyroxine Sodium 100 MCG Oral TabletTAKE 1 TABLET DAILY. metFORMIN HCl - 500 MG Oral TabletTAKE 1 TABLET DAILY WITH FOOD. Omeprazole 20 MG Oral Capsule Delayed ReleaseTAKE 1 CAPSULE BY MOUTH TWICE A DAY Ozempic (0.25 or 0.5 MG/DOSE) 2 MG/1.5ML Subcutaneous Solution Pen-injectorweekly risperiDONE 2 MG Oral TabletTAKE 1 TABLET AT BEDTIME. Simvastatin 40 MG Oral TabletTAKE 1 TABLET AT BEDTIME. Allergies Medication No Known Drug Allergies Recorded By: Luana Cox; 04/09/2013 12:10:16 PM Family History Mother Family history of malignant neoplasm of breast (V16.3) (Z80.3) Father Family history of Family history of congestive heart failure (V17.49) (Z82.49) Family history of diabetes mellitus (V18.0) (Z83.3) Sister Family history of diabetes mellitus (V18.0) (Z83.3) Brother Family history of malignant neoplasm of kidney (V16.51) (Z80.51) Social H (more content not included)... Normal [employer] Tobacco Screening.on 023 Adult depression screening assessment No -[facility] 250 DO Work Phone: Fall risk assessment a) No falls within the last year [facility] 250 DO Work Phone: Tobacco use status [facility] b) No [facility] [place] 250 DO Work Phone: ECHOCARDIO M/2D COMPLETEon 0 05-11-2022 ECHOCARDIO M/2D COMPLETE Patient: BETH DONOVAN Exam Date: 05/11/2022 : 1955 Gender:F Ordering : DR MIKALA SINGH Admission #: [id number] Family : Order #: [id number] CLICK HERE TO VIEW EXAM ECHOCARDIOGRAM REPORT PROCEDURE: CARDIO PULMONARY ECHOCARDIO M/2D COMP INDICATIONS: Dyspnea on exertion, obstructive sleep apnea, diabetes COMPARISON: None. DESCRIPTION: COMPLETE ECHOCARDIOGRAM Real-time transthoracic echocardiography with 2D, M-mode, spectral and color flow Doppler performed. QUALITY: Technically difficult due to patient's condition. 67 258# BP 134/70 LEFT VENTRICLE: Normal chamber size. Mild concentric left ventricular hypertrophy. LV EF: Normal left ventricular ejection fraction, (>55%). Cannot comment on regional wall motion abnormalities. DIASTOLIC: Normal diastolic function. ATRIAL SEPTUM: Inadequately seen. LEFT ATRIUM: Normal chamber size. RIGHT ATRIUM: Mild dilatation. RIGHT VENTRICLE: Poorly seen. Appears enlarged. Systolic function appears reduced. TRICUSPID VALVE: Normal mobility and thickness. No regurgitation. Unable to assess right-sided pressures due to lack of measurable tricuspid regurgitation. MITRAL VALVE: Normal mobility and thickness. No evidence of mitral valve stenosis. There is no mitral annular calcification. No mitral regurgitation. AORTIC VALVE: Normal trileaflet appearance. No visible sclerosis. Normal leaflet mobility. No evidence of aortic valve stenosis. No aortic regurgitation. AORTIC ROOT: Normal diameter and appearance. PULMONIC VALVE: Not well visualized. No stenosis. No regurgitation. PERICARDIUM: No evidence of pericardial effusion. IVC: Collapses with inspirations. IVC is normal in size. CONCLUSION: Global left ventricular systolic function is difficult to assess but appears preserved; visually estimated ejection fraction is 60 to 65%. Cannot comment on regional wall motion abnormalities. Mild left ventricular hypertrophy. Normal diastolic function. The right atrium is dilated. The right ventricle is poorly seen but appears enlarged with reduced systolic function. Valves are poorly seen; no significant valvular abnormalities. Adult Echocardiography Procedure Report Left Ventricle LVEDD (3.7 - 5.6 cm): 4.52 cm LVESD (2.2 - 4.0 cm): 2.95 cm LVIVS thickness (0.6 - 1.2 cm): 1.04 cm LVPW thickness (0.5 - 1.0 cm): 1.11 cm e': 0.09 m/s E - e': 6.61 LVOT Max Gradient: 3.85 mm[Hg] Peak Velocity (LVOT): 0.98 m/s LVOT Diameter 2.17 cm Left Ventricular Ejection Fraction: 64.11 %, 64.11 % Left Atrium LA Volume Index (2D A2C): 73.12 ml, 73.12 ml Left Atrium Systolic Dimension: 3.72 cm Mitral Valve MV E to A Ratio: 0.77 Mitral Valve A-Wave Peak Velocity: 0.77 m/s Mitral Valve E-Wave Peak Velocity: 0.59 m/s Right Ventricle Aorta AO Root Diam: 3.36 cm Aortic Valve AoV Area (Peak Michael): 3.10 cm2, 3.10 cm2 Peak Velocity(Antegrade Flow): 1.17 m/s Peak Gradient(Antegrade Flow): 5.48 mm[Hg] Tricuspid Valve Peak Velocity: 0.66 m/s Pulmonic Valve Mean Gradient: 2.15 mm[Hg], 2.49 mm[Hg] Mean Velocity: 0.67 m/s, 0.72 m/s Peak Velocity: 1.01 m/s, 1.09 m/s, 1.10 m/s Peak Gradient: 4.85 mm[Hg], 4.10 mm[Hg], 4.78 mm[Hg] Right Atrium Right Atrium Systolic Pressure: 69.94 ml, 69.94 ml Dictated by: Joseline Alarcon M.D. on 05/13/2022 at 10:49 Approved by: Joseline Alarcon M.D. on 05/13/2022 at 10:52 Normal [facility] MG MAMM SCREEN 3D ALFA CADon 05-11-2022 MG MAMM SCREEN 3D ALFA CAD Patient: BETH DONOVAN Exam Date: 05/11/2022 : 1955 Gender:F Ordering : DR MIKALA SINGH Admission #: [id number] Family : Order #: [id number] CLICK HERE TO VIEW EXAM RADIOLOGY REPORT PROCEDURE: MAMMOGRAM SCREENING 3D BILATERAL CAD COMPARISON: MG MAMM SCREEN ALFA W CAD, 05/05/2020. MG MAMM SCREEN ALFA W CAD, 05/01/2019. DIGITIZED_MAMMO, 03/13/2009. MG MAMM SCREEN 3D ALFA CAD, 05/05/2021. INDICATIONS: Screening mammography Calculator Name NCI Breast Cancer Risk Assessment Tool 5 Year Breast Cancer Risk 3.00% Lifetime Breast Cancer Risk 11.00% Personal Breast Cancer No Personal Ovarian Cancer No Treatments None Family Cancers Mother with breast cancer at age 75; Aunt-maternal with breast cancer at age 70; Brother with kidney cancer at age 50. LOCATION: [facility] BREAST COMPOSITION: Almost entirely fatty. FINDINGS: DIAGNOSTIC CATEGORY 2--BENIGN FINDING: RIGHT BREAST: No significant suspicious finding. Scattered benign-appearing calcifications are present. No significant change has occurred. LEFT BREAST: No significant suspicious finding. Scattered benign-appearing calcifications are present. Stable, chronic scarring within lower breast adjacent skin surface. No significant change has occurred. RECOMMENDATIONS: ROUTINE MAMMOGRAM AND CLINICAL EVALUATION IN 12 MONTHS. PLEASE NOTE: A NORMAL MAMMOGRAM DOES NOT EXCLUDE THE POSSIBILITY OF BREAST CANCER. A CLINICALLY SUSPICIOUS PALPABLE LUMP SHOULD BE BIOPSIED. Dictated by: Abdias Romeo M.D. on 05/11/2022 at 14:19 Approved by: Abdias Romeo M.D. on 05/11/2022 at 14:26 Normal [facility] Established Visit (Otolaryng ology)on 02-09-2022 Established Visit (Otolaryngology) Diagnoses/Problems Tracheal stenosis (519.19) (J39.8) Esophageal reflux (530.81) (K21.9) Patient Discussion/Summary 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 Esophageal reflux for which we renewed her prescription for omeprazole. I will see her in 1 year. Provider Impressions 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 Esophageal reflux for which we renewed her prescription for omeprazole. I will see her in 1 year. Chief Complaint Follow-up regarding tracheal stenosis History of Present IllnessThis patient presented with a tracheal stenosis. I first saw her back in 2010 when the first dilation was done. She ended up being redilated in April of 2016. She seems to have had some issues going up stairs and doing any exercise. That does not seem to be worse than previously. At the same time it feels like it is somewhat limiting. She had a CT scan of her trachea done on March 03, 2021. I personally reviewed that scan. It does show a stenotic segment. I do not believe that the stenotic segment is stenosed in more than 40%. On March 19, 2021 she was brought to the operating room for CO2 laser and dilation. She is here today for follow-up. Her breathing has remained stable. Active Problems Bronchitis (490) (J40) Bronchitis, acute (466.0) (J20.9) Dysphagia (787.20) (R13.10) Esophageal reflux (530.81) (K21.9) Tracheal stenosis (519.19) (J39.8) Family History Family history of malignant neoplasm of breast (V16.3) (Z80.3) Family history of Family history of congestive heart failure (V17.49) (Z82.49) Family history of diabetes mellitus (V18.0) (Z83.3) Family history of malignant neoplasm of kidney (V16.51) (Z80.51) Social History Never a smoker No alcohol use Allergies No Known Drug Allergies Recorded By: Luana Cox; 04/09/2013 12:10:16 PM Current Meds Medication NameInstruction Ativan 0.5 MG Oral Tablet Effexor 75 MG TABS Levothyroxine Sodium 100 MCG Oral Tablet Omeprazole 20 MG Oral Capsule Delayed ReleaseTAKE ONE CAPSULE BY MOUTH TWICE A DAY risperiDONE 2 MG Oral Tablet Simvastatin 40 MG Oral Tablet Synthroid 25 MCG Oral Tablet Vitals Vital Signs Recorded: 09Feb2022 03:01PM Height5 ft 4 in Novvfg274 lb BMI Jsrxkbrceg34.35 kg/m2 BSA Calculated2.22 Tobacco Useb) No Falls Screening (Age 18+)c) Not medically indicated Physical Exam A flexible laryngoscopy was carried out. Under topical Xylocaine and Eleuterio-Synephrine the scope was introduced through the nostril. The nasopharynx, base of tongue, hypopharynx, and larynx are visualized. The vocal cords are normally mobile. I was not able to pass the scope below that area. 'Scores and Scales' Signatures Electronically signed by : Ronnie Murphy MD; Feb 09 2022 3:21PM EST (Author) Normal [facility] Tobacco Screening.on 022 Fall risk assessment c) Not medically indicated MG-Ot olaryng ology-[facility] Work Phone: Tobacco use status CP b) No MG-Otolaryng ology-[facility] Work Phone: Coding Summary.on 05-18-2021 Coding Summary. [id number] Gh0bWw +PGhlYWQ+GW2NTDXuO83xlQLqa M3HJ3kPHW0ZQAYSFGUJSA4OHP8 mxLU7TUejY7PcehRe DtbmmFSrUC86PSg4CID3lVgnGN dkzQ7khLLlB9t6ZeJhVN41pS05 JEffIUXwXvS1VgTkggrktNUg D7agMsVckUTsUfk+PHRhYmxlIH qzODFiITjqYDLnIqIbxLzbNP4b My0xLRJlZIZbxIimfMVuYoJf a2gxZSYtANeoCO0guAipG6XwwL B4CPTnh6z0Ex23gED+PHRkIHN0 sVfcWGjhh759ZmNkr1pgUMD9 tRKoFFprPZV7S85tl9M1WYGpBH GnKGO3nXS1tO3zgOtxzawrX8Pa mWCzWvV8RDQ8cPOdcY4fmOtc jsfcgX9oWib+V40ILZ8KVOMCEF 2XNds7T8YwIwjhyJM+AW42DXGr JC60jATmiPQip2ulaJk4TtHl MGSkFOH5yJpwGJqaa7CgBWYzQ2 5vxEHjd2Z9QIOawCzckFNuXrHz wUX8nQ7mJAtgzkkpb2nrwzmj Kliyb0lwoh47xC64B35cONamLQ QpWNY9SCIyVFJweLdwqo8cjN2o Ii8+RUrvm8bto6tzwEw2DaQo LYWjjeUizWqmVXY2v7HyJv83F8 TdpJmkp8UgZgs5xw92ePZcd6U4 sPB7WSegLQVytO7gFApzLvJ6 EFEeBtPmuP20pYUsVKyyVw1ddW eclQmwPQ3sYRKysumvSKZvwU4p GHJdnGXynWltPB7jIYWrmeri a737XxIyAMD3CLJwsJDeM3AnfP 4xTlAcZGIzFHArG8FzhZJyFDkq M200IVbaVeH0AIBkunJlJ6Ez OGMzyXcsGnG7w9F5Ci0Yu9Vpjp rbXJY4YDniRTOtUsP4LzIaZyK5 I9FsKmk2QZZkaRooIH1hI8Nm FQUkwzvhypshjKG6LXVnJPMqiN 86yIZbMBnwQo6oq7D9h457UXCa BJEkkN39Lr6esGsxDNOlvLCR mK5knryuz1lfikpyXrPgUKAcEI z5KCt7ICEzwFbhMyZhQGV4TqE9 OKU7bABguS2eiShysyxdiI0q Oyc+O32dbQ3gMCS2XRI1hjrkDX NzpjGiZC68ML27G8NcFozsoJFa bGU+LWWwddJmqMhtAI3hGdMo j1tli4ZrISauX1EzTXWzFMqcUe h8UFVkEFD2hYS8gB6sRIBwOYts j7Y6kDP4P1SbvyCoco7ui6vt MKJzLDxjT59nsLTca3C1DHWjoD N7MLYyjKloRwKysK93Bdf+PGNv gCwky5VwKdgjt2dbq3pqjYl6 KtUgGHUnvnRlrAwfKQB6k4XdCg 61P16iBXjtUIUoDLAfTKVgFNOm oSairo6doV7pEr3+PGNvbCB3 sKY9eH8uEBJjNuZ0QMylZ613Sg VoeNDxPjiyr2sgs1fmzPg8KaHw ZABeffJbyKjrFJU0i6WkSt35 M98sFOjsYEUnVPAtSQAxBCQppR rlgx2giR8gKk0+GU8kc3gxog68 hJ20oOR+RMOyJLF4kZdwLRng DEPkhT8hYDjoHxJ6ZPEdWjQscO 77lVUqOMnrEt9snAgnnYftAB1z PIKnanzgr590JrRhf9otGECm vRRyDQtaKBV5J70qu7A5IPTyVP ZvCVD2oGL1zO0ncLglsfdczFAa oIiiynMajGliBZgeTWonG184 IHRvcDsnPlBhdGllbnQgTmFtZT n0P2WyWps6PGYxxRcbGH9wbNJd WXoiTp9znPjuiAdyTR9xQUKu vmgnk676KpWap1cwLPZpvIHiTW cjCTN1Z23xo3D1OCAcQGXiXSE6 uYT0cT9pjTnusohddFMllPbz lxSjjRpiDCmaWVnwX891PUWsmM tjSqMzkcHxGJJqaPT7EM24OD68 xHWko3U9tUR5H8TqFTFnkdrs slyuxCW2TXJuEWOthR58Fd8ksK zwTb8bEIHgFPY3MENzbZYxY3Nf zP3cSwXhLXYlWEJjP2YwhNRm OFnoF906LUgiKaE1LWHboaCcT9 YhTNMwiUpySgJ7w7Z6Vx7PN6E7 RW12DV97nGFrh1T3oUG9T4Ep WHVhierxcjumyLM7EDYgUMPicM 18Yr7cgXkvIi2pFLDdCHM3YBEt bENdU2XylA3kAhBeRJMtDRZa G3VpeVEiXEhnZ527DRgeMsV0AM OtgeCqX3CeRDFqxPlxSyR1b8Z5 Zp8NZRr0RE18LN62jVMwu6M5 hCE4W1ZlPTLrqvyrzfadmCV9HU NuVUNplU33Cj9wtTztVa3xXDXg HQV2VTUutOVcS4HivD5mSkDy TEPyECMmJ0XuiRShUSlfH265HW rkFxD1FICqhwCqD5XcCCXuhUwz UoQ6r5V6Ba9NDEUlQH62PYQ8 qIB6KA91QU71Q9KbZkmzoTPosJ U+PHRhYmxlIHdpZHRoPScxMDAl FiQtbQdnBS2uBo9qXLCaLDTc iLwjnKUuXlXsd0roVURoDRanBL 2cfOmyI7MfeQS9GIUzn3v3Lu52 Y75xJ0DogWI+BVLisBF2oWS8 mG6oWnSkEnO5PHlaR105VeSvsI PvTncfl5iyb0lutWb7YlM4EITn gyMzoRgxTYF1s3SdTz03N19l IHdpZHRoPSIxNSUiIHZhbGlnbj 2deX0wXw9+BNBpnLW6hHK8iI0f CoIaAmL5AFnlW081XuTiqTLd Jqjyj0svw5sbtIl6DjJpYCMhga NitEsnTVJ5x6EdOk68P7UhhVsx c3MmEij6em73vUDgq2F0pEY5 O3YpDGTktkkibOHrhGdqFB3aLJ HunwacZCEngZ6gVYNjP1r1QaMy TuV8XBleN6NfzjR5OUQieIGp UOokBCS7A12df7H1KOFyGQZpVI S1xEJ4bL0sdFdojynghHIoyYnj lkRmcKxqPPcbCMljL776ZJTr dNibBOTvaK6mIUBpqUAkfLbnWF 4wNTBpbjsnPkdJVFRJTkdFUiwg YK3QFPF4J1RnZxh4XIEykInb WD4jdMQsLOmiKs5bbDkvdTlwLD 6dLNTlzzrmUNTmuM7tSNGjyCNw qCnoHT6oSNPmlzgmj812ChUv CPZ7BPFfnVZnH3MvoY4lPtCuBN MxSRPoP7WuyARfQJezQ175QBgb MyS5XWGgzqErQ8CwUNKadBkj RjT9f3U5Zi6dOQ3cXK8lZKZ7GK 55ZQ37nQCtp9A0zTR7W9BdVETc hixvnxppmZA8XUGtVWSryI21 bAVxVYdyZa9oc0N0s518BABaXY CmhQ93Sn2khUclNDFolYBRgI5d glnjf1teockxUhPwTISoKWv4 UOt3OMHkfIrkRkHmXVU0GmX1AT X5sPWtsZ3bzObwresysP2yQpk+ OvXfKQItplU7B1McWrq6AOWc cSwlIO8kiLUpWXctIx9qjBgmqM ckKO3cVUJgsegtTHMxyG7kVPAj nRNniZjbAV3kLCJienkaw683 UbQqERZ2BVVmuSRgC8ZkiS0yRj GdTHNwTKCkH3TvvOPpPYlnQ759 PBkwYqR8TQUqxjOaF0ArFACm iManFvI2o5E3Vj3HBG4rxQJ9J0 HhTbh1SOYmhMawAM1fqHNrZFgk Gk9vhSreoQwwHS5tODEmemqf NDHjnG7gNAWwbIJceFejRC7gWR Svrdjit467UjWrIJW5WNLvjTSa X8GbnF7mTzIoPBBpTRFdD1Mr eETzWHvaO341VExlYgB1WRTfkn MeL5RzONHaiZpjHqJ3o8T7Wg8F BCE8cxSdkfc1L6YnSyfraJW+ CB17VPUoDW69mTEwxOCak5lhiB q5GeOvWAJmOSY8uYsrZKevv4Kh JFGjA64nnYBrd1E7AXKscSic eGLiVaRcpQJ1jP7gAKcrpetqe4 pmzzltBjcae6xvvs55yO14A11y IHdpZHRoPSIzMCUiIHZhbGln rf7maF7qWz6+IMYjfYC2nZE9mU 9bRfUcEsO1OPdfW070IwCsvSNa Pqlus2ycz5rlxNw0QlZlWMYt mpIsoGqgOKC1q0NrSm14C08gST pxAHDcILZkYLHtSXPcyQfhdo7o zO8tWn9+BY4mj2hiev33rY71 dHI+HBTqVYJ2qWyzRPhwZSVrgG 2xSRiaYiL0CMKrSyTbyQ63dIHl LCpiNj3kgLtcpByyDS3kAHCi aemsh868BbSgk5inACUvfDXfUU tlZOD9T83rx3Q0FOSxVEJaTJX0 fEW3zQ5hnOiisaetoEPonGjz trKyhQuzKAplHEykI251SZAjbB hrMyKfmCDuY1zsanUZGP4oCbge dGQ+MCMeDDH3pVzuKHspDYBs nP6yCOQwW6a1SbKaFjE6UEtoT8 AfmgZ3GRElcLWvGCSjiDHQjY7f yeles7rmupwiTjWeFRFfJBe3 XOo1ISFejOrvJnIsCRX4WdH9UL O4hFCsoO2ehGdqlniawV2fDuo+ RklOOjwvdGQ+JFAoKMG1wMok TPdsELOnmQ9tYFVvS9m3KaKvYo A3PVzzE9XiddH8BCPtwKZtJWPj vDLNfI7bqeyue9fbidnfWtGv YQPdPSm0JKq6APGenCapFmCvPA D0MaJ1YLS9nSZxrJ4egVeqltxf aM2yOsc+TVJOOjwvdGQ+PHRk GTB5eAebJYwoGLIjmZ4nRWLcY1 f9LzYyOiO5SPffE6WeqhP3BIAg lVNqYHAmqSQZnL8mejknw5tp bhwkCsXoZPFhBCz8UGa8LHYllN qqXuSbIKG7BcB8STB7pHUdrI7m mKnwqrilqI3vPxd+ZUP7FGJ9 BQ72XT57N7ToZjzeoIUajRP+PH RhYmxlIHdpZHRoPScxMDAlJyBz gPjcAK2iCf1pJRFnZSXplZrz cHNl (more content not included)... Normal [facility] Priority Order-Les 2021 Priority Order-STAT Comment Invalid Interpretation Code [facility] Comment on above: Result Comment: Rece ived Performed at: [facility] [id number] PhD Anita Hughes Performed By: #### S ARS-CoV-2, JONY, [id number] #### [facility] [address] [place] [id number] SARS-CoV-2, NAAon 05-16-2021 SARS-CoV-2 (COVID-19) RNA JONY+probe Ql (Resp) Not detected Invalid Interpretation Code Not Detected [facility] Comment on above: Result Comment: This nucleic acid amplification test was developed and its performance characteristics determined by [employer]. Nucleic acid amplification tests include RT-PCR and TMA. This test has not been FDA cleared or approved. This test has been authorized by FDA under an Emergency Use Authorization (EUA). This test is only authorized for the duration of time the declaration that circumstances exist justifying the authorization of the emergency use of in vitro diagnostic tests for detection of SARS-CoV-2 virus and/or diagnosis of COVID-19 infection under section 564(b)(1) of the Act, 21 U.S.C. 360bbb-3(b) (1), unless the authorization is terminated or revoked sooner. When diagnostic testing is negative, the possibility of a false negative result should be considered in the context of a patient's recent exposures and the presence of clinical signs and symptoms consistent with COVID-19. An individual without symptoms of COVID-19 and who is not shedding SARS-CoV-2 virus would expect to have a negative (not detected) result in this assay. Performed at: [address] [id number] PhD Anita Hughes Performed By: #### S ARS-CoV-2, JONY, [id number] #### [facility] [address] [place] [address] Consent for Treatmenton 05-02 Consent for Treatment [id number]:[address] [facility] Reference Laboratory Testing Ordered By: [facility] [employer] on 05-15-2021 SARS-CoV-2 (COVID-19) RNA JONY+probe Ql (Resp) Not detected Invalid Interpretation Code Not Detected [facility] Comment on above: Result Comment: This nucleic acid amplification test was developed and its performance characteristics determined by [facility]. Nucleic acid amplification tests include RT-PCR and TMA. This test has not been FDA cleared or approved. This test has been authorized by FDA under an Emergency Use Authorization (EUA). This test is only authorized for the duration of time the declaration that circumstances exist justifying the authorization of the emergency use of in vitro diagnostic tests for detection of SARS-CoV-2 virus and/or diagnosis of COVID-19 infection under section 564(b)(1) of the Act, 21 U.S.C. 360bbb-3(b) (1), unless the authorization is terminated or revoked sooner. When diagnostic testing is negative, the possibility of a false negative result should be considered in the context of a patient's recent exposures and the presence of clinical signs and symptoms consistent with COVID-19. An individual without symptoms of COVID-19 and who is not shedding SARS-CoV-2 virus would expect to have a negative (not detected) result in this assay. Performed at: [facility] [id number] PhD Anita Hughes Tobacco Screening.on 021 Fall risk assessment a) No falls within the last year [facility] Work Phone: Tobacco use status [facility] b) No [facility] Work Phone: Coronavirus 2019 RNA by PCR, Screening Asymptomticon 03-17-2021 Coronavirus 2019 RNA by PCR, Screening Asymptomtic Not detected Normal See Below [facility] Work Phone: Comment on above: SOURCE: Nasal, Nasop haryngealReference Range: Not Detected.This assay is designed to detect the N, ORF1ab and/or S genes of SARS-CoV-2 via nucleic acid amplification. A Negative (NOT DETECTED) result does not preclude 2019-nCoV infection since the adequacy of sample collection and/or low viral burden may result in presence of viral nucleic acids below the clinical sensitivity of this test method. Negative (NOT DETECTED) result should not be used as the sole basis for treatment or other patient management decisions. Rather negative results should be combined with clinical observations, patient history, and epidemiological information to make patient management decisions.Fact sheet for providers: https://www.fda.gov/media/200799/downloadFact sheet for patients: https://www.fda.gov/media/582261/downloadThis test has received FDA Emergency Use Authorization (EUA) and has been verified by [facility] ([facility]). This test is only authorized for the duration of time that circumstances exist to justify the authorization of the emergency use of in vitro diagnostic tests for the detection of SARS-CoV-2 virus and/or diagnosis of COVID-19 infection under section 564(b)(1) of the Act, 21 U.S.C. 360bbb-3(b)(1), unless the authorization is terminated or revoked sooner. [facility] is certified under CLIA-88 as qualified to perform high complexity testing. Testing is performed in the [facility] laboratories located at [address] [place] [address] [place] [address]. Laboratory - Blood bankon ABO group Nom (Bld) O [facility] Work Phone: 1 41 Blood group antibody screen Ql Negative [facility] Work Phone: 1 41 Rh immune globulin screen (Bld) [Interp] Positive [facility] Work Phone: [phone] Laboratory - Chemistry and C hemistry - challengeon 03-13-2021 Anion gap [Moles/Vol] 13 mmol/L 10 - 20 [facility] Work Phone: 41 Calcium [Mass/Vol] 9.3 mg/dL 8.6 - 10.6 [facility] Work Phone: 41 Chloride [Moles/Vol] 102 mmol/L 98 - 107 [facility] Work Phone: 1 41 CO2 [Moles/Vol] 28 mmol/L 21 - 32 [facility] Work Phone: 41 Creatinine [Mass/Vol] 0.77 mg/dL See Below [facility] Work Phone: 41 Comment on above: Reference Range: 0.5 0 - 1.05 Glucose [Mass/Vol] 95 mg/dL 74 - 99 [facility] Work Phone: [phone] Potassium [Moles/Vol] 5.2 mmol/L 3.5 - 5.3 [facility] Work Phone: 41 Sodium [Moles/Vol] 138 mmol/L 136 - 145 [facility] Work Phone: 41 Urea nitrogen [Mass/Vol] 19 mg/dL 6 - 23 [facility] Work Phone: Laboratory - Hematology and Cell countson 03-13-2021 Erythrocyte distribution width (RBC) [Ratio] 12.8 % See Below [facility] Work Phone: [phone] Comment on above: Reference Range: 11. 5 - 14.5 Hematocrit (Bld) [Volume fraction] 38.6 % See Below [facility] Work Phone: [phone] Comment on above: Reference Range: 36. 0 - 46.0 Hemoglobin (Bld) [Mass/Vol] 11.8 g/dL below low threshold See Below [facility] Work Phone: Comment on above: Reference Range: 12. 0 - 16.0 MCHC (RBC) [Mass/Vol] 30.6 g/dL below low threshold See Below [facility] Work Phone: [phone] Comment on above: Reference Range: 32. 0 - 36.0 MCV (RBC) [Entitic vol] 96 fL 80 - 100 [facility] Work Phone: [phone] Platelets (Bld) [#/Vol] 325 10*3/uL 150 - 450 [facility] Work Phone: [phone] RBC (Bld) [#/Vol] 4.01 {x10E12/L} See Below [facility] Work Phone: [phone] Comment on above: Reference Range: 4.0 0 - 5.20 WBC (Bld) [#/Vol] 8.6 10*3/uL 4.4 - 11.3 [facility] Work Phone: No Panel Informationon 03-13 >60 >60 [facility] Work Phone: Comment on above: CALCULATIONS OF LINO MATED GFR ARE PERFORMED USING THE MDRD STUDY EQUATION FOR THE IDMS-TRACEABLE CREATININE METHODS. CLIN CHEM 2007;53:766-72 0.0 {/100_WBC} 0.0-0.0 [facility]tolary ng [facility] Work Phone: 41 [email or web address] [email or web address]&Date=04-11&Time=10%3a52%3a43%3a 00&TestType=ECG&Site=1&Out putType=PDF&Ext=PDF [facility] Work Phone: 41 Normal sinus rhythm [facility] Work Phone: 41 Normal [facility] Work Phone: [phone] [facility] Work Phone: [phone] [facility] Work Phone: [phone] [facility] Work Phone: [phone] [facility] Work Phone: [phone] [facility] Work Phone: [phone] [facility] Work Phone: [phone] [facility] Work Phone: [phone] [facility] Work Phone: [phone] [facility] Work Phone: [phone] [facility] Work Phone: [phone] [facility] Work Phone: [phone] [facility] Work Phone: [phone] [facility] Work Phone: [phone] [facility] Work Phone: CT Chest without Contraston 03-03-2021 CT Chest WO contrast Normal [facility] Work Phone: Tobacco Screening.on 021 Fall risk assessment a) No falls within the last year [facility] Work Phone: Tobacco use status [facility] b) No [facility] Work Phone: Tobacco Screening.on 021 Fall risk assessment c) Not medically indicated [facility] Work Phone: Tobacco use status CP b) No [facility] Work Phone: Vital Signs Date Time Vital Sign Value Performing Clinician Facility 02-22-2023 14:36-0400 Body height 163.8 cm Ronnie Murphy MD Work Phone: [facility] 02-22-2023 14:36-0400 Body mass index (BMI) [Ratio] 43.09 kg/m2 Ronnie Murphy MD Work Phone: [facility] 02-22-2023 14:36-0400 Body weight 115.67 kg Ronnie Murphy MD Work Phone: [facility] 02-15-2023 13:00-0400 Body height 165.1 cm Nikki Manning Other [facility] Other 02-15-2023 13:00-0400 Body mass index (BMI) [Ratio] 42.16 kg/m2 Nikki Fitt Other [facility] Other 02-15-2023 13:00-0400 Body weight 114.94 kg Nikki Fitt Other [facility] Other 02-01-2023 10:15-0400 Body height 165.1 cm Lilliam Scally Other [facility] Other 02-01-2023 10:15-0400 Body mass index (BMI) [Ratio] 42.2 kg/m2 Lliliam Scally Other [facility] Other 02-01-2023 10:15-0400 Body weight 115.03 kg Lililam Scally Other [facility] Other 02-01-2023 10:15-0400 Diastolic blood pressure 78 mm[Hg] Lilliam Scally Other [facility] Other 02-01-2023 10:15-0400 Respiratory rate 20 /min Lilliam Scally Other [facility] Other 02-01-2023 10:15-0400 SaO2% (BldA) [Mass fraction] 96 % Lilliam Scally Other [facility] Other 02-01-2023 10:15-0400 Systolic blood pressure 130 mm[Hg] Lilliam Scally Other [facility] Other 12-22-2022 13:00-0400 Body height 165.1 cm Nikki Fitt Other [facility] Other 12-22-2022 13:00-0400 Body mass index (BMI) [Ratio] 41.73 kg/m2 Nikki Fitt Other [facility] Other 12-22-2022 13:00-0400 Body weight 113.76 kg Nikki Fitt Other [facility] Other 10-19-2022 10:15-0400 Body height 165.1 cm Lilliam Scally Other [facility] Other 10-19-2022 10:15-0400 Body mass index (BMI) [Ratio] 41.41 kg/m2 Lilliam Scally Other [facility] Other 10-19-2022 10:15-0400 Body weight 112.9 kg Lilliam Scally Other [facility] Other 10-19-2022 10:15-0400 Diastolic blood pressure 72 mm[Hg] Lilliam Scally Other [facility] Other 10-19-2022 10:15-0400 Respiratory rate 18 /min Lilliam Scally Other [facility] Other 10-19-2022 10:15-0400 SaO2% (BldA) [Mass fraction] 96 % Lilliam Scally Other [facility] Other 10-19-2022 10:15-0400 Systolic blood pressure 110 mm[Hg] Lilliam Scally Other [facility] Other 10-19-2022 08:15-0400 Body height 165.1 cm Nikki Fitt Other [facility] Other 07-27-2022 10:45-0400 Body height 165.1 cm Lilliam Scally Other [facility] Other 07-27-2022 10:45-0400 Body mass index (BMI) [Ratio] 41.08 kg/m2 Lilliam Scally Other [facility] Other 07-27-2022 10:45-0400 Body weight 111.99 kg Lilliam Scally Other [facility] Other 07-27-2022 10:45-0400 Diastolic blood pressure 72 mm[Hg] Lilliam Scally Other [facility] Other 07-27-2022 10:45-0400 Respiratory rate 20 /min Lilliam Scally Other [facility] Other 07-27-2022 10:45-0400 SaO2% (BldA) [Mass fraction] 97 % Lilliam Scally Other [facility] Other 07-27-2022 10:45-0400 Systolic blood pressure 109 mm[Hg] Lilliam Scally Other [facility] Other 06-15-2022 09:15-0500 Body height 165.1 cm Nikki Manning Other [facility] Other 06-01-2022 13:03-0500 Body height 163.83 cm Gopi Solis MD Work Phone: [place] [address] DO Work Phone: 06-01-2022 13:03-0500 Body mass index (BMI) [Ratio] 43.6 kg/m2 Gopi Solis MD Work Phone: [facility] 250 DO Work Phone: 06-01-2022 13:03-0500 Body surface area Derived from formula 2.19 m2 Gopi Solis MD Work Phone: [facility] DO Work Phone: 06-01-2022 13:03-0500 Body weight 117.03 kg Gopi Solis MD Work Phone: [facility] DO Work Phone: 06-01-2022 13:03-0500 Diastolic blood pressure 62 mm[Hg] Gopi Solis MD Work Phone: [facility] DO Work Phone: 06-01-2022 13:03-0500 Heart rate 76 /min Gopi Solis MD Work Phone: [facility] DO Work Phone: 06-01-2022 13:03-0500 Systolic blood pressure 126 mm[Hg] Gopi Solis MD Work Phone: [facility] DO Work Phone: 06-01-2022 12:30-0500 Body height 165.1 cm Lilliam Scally Other [facility] Other 06-01-2022 12:30-0500 Body mass index (BMI) [Ratio] 42.85 kg/m2 Lilliam Scally Other [facility] Other 06-01-2022 12:30-0500 Body weight 116.8 kg Lilliam Scally Other [facility] Other 06-01-2022 12:30-0500 Diastolic blood pressure 70 mm[Hg] Lilliam Scally Other [facility] Other 06-01-2022 12:30-0500 Respiratory rate 20 /min Lilliam Scally Other [facility] Other 06-01-2022 12:30-0500 SaO2% (BldA) [Mass fraction] 97 % Lillima Scally Other [facility] Other 06-01-2022 12:30-0500 Systolic blood pressure 112 mm[Hg] Lilliam Scally Other [facility] Other 02-09-2022 15:01-0400 Body height 162.56 cm Ronnie Murphy MD Work Phone: IN-Hvxufophtjeuuf-Wzt [place] Work Phone: 02-09-2022 15:01-0400 Body mass index (BMI) [Ratio] 46.35 kg/m2 Ronnie Murphy MD Work Phone: LF-Qkahhnpdgwshlb-Rxr [place] Work Phone: 02-09-2022 15:01-0400 Body surface area Derived from formula 2.22 m2 Ronnie Murphy MD Work Phone: CH-Alobazkkkntlfm-Elc [place] Work Phone: 02-09-2022 15:01-0400 Body weight 122.47 kg Ronnie Murphy MD Work Phone: UI-Eymrvowivigtjc-Djs [place] Work Phone: 03-31-2021 15:33-0500 Body height 162.56 cm Ronnie Murphy MD Work Phone: SI-Veodhzbcabpvka-Mtm [place] Work Phone: 03-31-2021 15:33-0500 Body mass index (BMI) [Ratio] 46.52 kg/m2 Ronnie Murphy MD Work Phone: MH-Xalgqryrzeukzp-Dpy [place] Work Phone: 03-31-2021 15:33-0500 Body surface area Derived from formula 2.23 m2 Ronnie Murphy MD Work Phone: MR-Tqvixyrntlkjhe-Bfd [place] Work Phone: 03-31-2021 15:33-0500 Body temperature 97.2 [degF] Ronnie Murphy MD Work Phone: TR-Avalprhydsgiab-Qqb [place] Work Phone: 03-31-2021 15:33-0500 Body weight 122.93 kg Ronnie Murphy MD Work Phone: FI-Qbyoltpvkoxkqd-Ckf t[place] Work Phone: 03-03-2021 12:52-0400 Body height 162.56 cm Ronnie Murphy MD Work Phone: MS-Hpeyuwhlolltaz-Hpn [place] Work Phone: 03-03-2021 12:52-0400 Body mass index (BMI) [Ratio] 46.35 kg/m2 Ronnie Murphy MD Work Phone: HD-Dwezmzrjmmrjvv-Jcb [place] Work Phone: 03-03-2021 12:52-0400 Body surface area Derived from formula 2.22 m2 Ronnie Murphy MD Work Phone: YQ-Rxhbpgvvmnzzkg-Pci t[place] Work Phone: 03-03-2021 12:52-0400 Body weight 122.47 kg Ronnie Murphy MD Work Phone: RK-Fptfayqltaoqco-Obd [place] Work Phone: 02-10-2021 15:05-0400 Body height 162.56 cm Ronnie Murphy MD Work Phone: RM-Hrzoakyownghds-Fur [place] Work Phone: 02-10-2021 15:05-0400 Body mass index (BMI) [Ratio] 46 kg/m2 Ronnie Murphy MD Work Phone: GP-Yzemgqmxfszfqu-Urx [place] Work Phone: 02-10-2021 15:05-0400 Body surface area Derived from formula 2.22 m2 Ronnie Murphy MD Work Phone: OQ-Iffkpsaapvyxpa-Emo [place] Work Phone: 02-10-2021 15:05-0400 Body temperature 97.4 [degF] Ronnie Murphy MD Work Phone: FJ-Yqvoaqemfhshwf-Qie [place] Work Phone: 02-10-2021 15:05-0400 Body weight 121.56 kg Ronnie Murphy MD Work Phone: HP-Slfkofncqjibuh-Ocq [place] Work Phone: Encounters Encounter Date Encounter Type Care Provider Facility Start: 04-13-2023 End: 04-13-2023 ambulatory Lilliam Montejo Other [facility] Other Start: 04-13-2023 Telephone encounter Lilliam Mcbride [facility] Start: 03-18-2023 End: 03-18-2023 ambulatory Lilliam Montejo Other [facility] Other Start: 03-18-2023 Telephone encounter Lilliam Mcbride [facility] Start: 03-15-2023 ambulatory Bello Hilton Facility:[facility] Start: 02-22-2023 End: 02-22-2023 ambulatory [facility] Start: 02-22-2023 End: 02-22-2023 Office outpatient visit 15 minutes Ronnie Murphy MD Work Phone: [facility] Comment on above: Tracheal stenosis (P rimary Dx) Start: 02-15-2023 ([facility] RD FU) [facility] F/ U 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 Nikki Manning [facility] Start: 02-15-2023 End: 02-15-2023 ambulatory Nikki Manning Other [facility] Other Start: 02-01-2023 [facility] Weight Management f/u Lilliam Montejo [facility] Start: 02-01-2023 End: 02-01-2023 ambulatory Lilliamcarlos Montejo Other [facility] Other Start: 01-27-2023 Rx Renewal Luana Cox OUTREACH CONSULTANT-TELEVISION ANNOUNCER Work Phone: KD-Rbauyywrvmyrob-Lcza n [place] [address] Work Phone: Start: 01-11-2023 ambulatory Ben Mcbride acility:[facility] Start: 01-05-2023 End: 01-05-2023 ambulatory Lilliam Alexandreclark Other [facility] Other Start: 01-05-2023 Telephone encounter [facility]illiam [facility] Start: 12-22-2022 ([facility] WMNI) WMN Init ial Provider Nikki Manning [facility] Start: 12-22-2022 End: 12-22-2022 ambulatory Nikki Manning Other [facility] Other Start: 10-19-2022 [facility] Weight Management f/u Lilliam Montejo [facility] Start: 10-19-2022 End: 10-19-2022 ambulatory Nikki Fitt Other [facility] Other Start: 10-19-2022 IBT FOR OBESITY GROU P 2-10 30M Nikki Ciprianot [facility] Start: 09-02-2022 End: 09-03-2022 ambulatory LILLIAM MONTEJO Facility:[facility] Start: 08-05-2022 End: 08-05-2022 ambulatory Lilliam Montejo Other [facility] Other Start: 08-05-2022 Telephone encounter Lilliam Montejo [facility] Start: 07-27-2022 ([facility]CCC[facility]NF/U) Weight Management f/u Lilliam Montejo [facility] Start: 07-27-2022 End: 07-27-2022 ambulatory Lilliam Montejo Other [facility] Other Start: 06-29-2022 End: 06-29-[address] DOCTOR SHANKS Facility:[facility] Start: 06-15-2022 End: 06-15-2022 ambulatory Nikki Fitt Other [facility] Other Start: 06-15-2022 IBT FOR OBESITY GROU P 2-10 30M [facility] Start: 06-01-2022 Office consultation new/estab patient 60 min [facility] Work Phone: Start: 06-01-2022 Office outpatient ne w 45 minutes Gopi Solis MD Work Phone: [facility] 250 DO Work Phone: Start: 06-01-2022 (FCCC[facility]NF/U) Weight Management f/u Lilliam Montejo [facility] Start: 06-01-2022 End: 06-01-2022 ambulatory Bello Hilton II Facility:[id number] Start: 05-17-2022 End: 05-18-[address] DOCTOR SHANKS Facility:[facility] Start: 05-11-2022 End: 05-12-[address] ABDIAS ROMEO Facility:[facility] Start: 04-28-2022 Rx Change Luana Cox OUTREACH CONSULTANT-TELEVISION ANNOUNCER Work Phone: WG-Ucmsckjcymhtbi-Nizw n [place] [address] Work Phone: Start: 02-09-2022 Office outpatient vi sit 15 minutes Ronnie Murphy MD Work Phone: JO-Pwtnpshftmlpcw-Pxdx [place] Work Phone: Start: 02-09-[address] RONNIE MURPHY Fa cility:[id number] Start: 05-15-2021 End: 08-13-2021 Patient encounter procedure BELLO HILTON [facility] Start: 04-16-2021 Rx Renewal Ronnie Murphy MD Work Phone: HU-Lnbruqtmbvcvao-Ithw n [place] [address] Work Phone: Start: 03-31-2021 Office outpatient vi sit 15 minutes Ronnie Murphy MD Work Phone: RS-Gpquwheaqqhgoi-Qkzm [place] Work Phone: Start: 03-19-2021 [facility], Provider: Ronnie Murphy, Status: Pen, Time: 9:00 AM Ronnie Murphy MD Work Phone: UH-Stzfmikiephxzl-Eakj man Work Phone: Start: 03-18-2021 Chart Update Ronnie Murphy MD Work Phone: BP-Bvlmpanjwyhpjd-Hdcf man Work Phone: Start: 03-04-2021 Chart Update Ronnie Murphy MD Work Phone: GB-Wgmsnkkabhtgay-Qnln [place] Work Phone: Start: 02-11-2021 Telephone encounter Luana Espinosa ndt OUTREACH CONSULTANT-TELEVISION ANNOUNCER Work Phone: NP-Nlgfhveupykepb-Nych rban Work Phone: Start: 02-10-2021 Office outpatient vi sit 15 minutes Ronnie Murphy MD Work Phone: GQ-Nlfahrituvxval-Otue [place] Work Phone: Start: 02-12-2020 Patient encounter procedure Ronnie Ellisu RK-Pkoandihvkxgps-Jokt rban Work Phone: Start: 08-22-2018 Patient encounter procedure Ronnie Lavkwabenanicholas UT-Mionlahknlnpea-Hiun n [place] [address] Work Phone: Start: 02-28-2018 Patient encounter procedure Ronnie Ellisu EI-Rldvaayplfrkpg-Noqf n [place] [address] Work Phone: Start: 08-23-2017 Patient encounter procedure Ronnie Ellisu TE-Lknmkqhdnxbgxk-Wwel n [place] [address] Work Phone: Start: 02-22-2017 Patient encounter procedure Ronnie Murphy NX-Iqlopnqidfpumy-Hhpe n [place] [address] Work Phone: Procedures Date Procedure Procedure Detail Performing Clinician Start: 05-11-2022 Mammography Ronnie mcdowell MD Work Phone: Start: 2019 Total colonoscopy Brigitte Daugherty MD Work Phone: Hernia repair Gopi ovalle MD Work Phone: Operation on breast Gopi Solis MD Work Phone: Plan of Treatment Date Care Activity Detail Author Start: 02-21-2024 End: 02-21-2024 Patient encounter procedure 02/21/2024 1:15 PM EDT Office Visit [facility] [address] [place] [address] [place] [address] [place] [address] [facility] Start: 05-11-2023 Screening for malignant neoplasm of breast Mammogram [facility] Start: 02-22-2023 FUV, Provider: Ronnie Murphy, Status: Pen, Time: 2:45 PM FUV, Provider: Ronnie Murphy, Status: Pen, Time: 2:45 PM CK-Mafsvmgfomjdbu-Fqu [place] Work Phone: Start: 12-31-2022 Influenza vaccination Influenza Vaccine (#1) [facility] Start: 08-10-2022 FUV, Provider: Gopi Solis, Status: Pen, Time: 12:50 PM FUV, Provider: Gopi Solis, Status: Pen, Time: 12:50 PM [facility] 250 DO Work Phone: Start: 07-13-2022 REST ONLY, Provider: DI HHVI NUCLEAR 01,[id number], Status: Pen, Time: 12:30 PM REST ONLY, Provider: DI HHVI NUCLEAR 01,[id number], Status: Pen, Time: 12:30 PM [facility] 250 DO Work Phone: Start: 07-12-2022 STRESSNUC2, Provider: DI HHVI NUCLEAR 01,[id number], Status: Pen, Time: 12:30 PM STRESSNUC2, Provider: DI HHVI NUCLEAR 01,[id number], Status: Pen, Time: 12:30 PM [facility] DO Work Phone: Start: 07-06-2022 COVID-19 Vaccine (4 - Pfizer series) COVID-19 Vaccine (4 - Pfizer series) [facility] Start: 02-09-2022 FUV, Provider: Ronnie Murphy, Status: Pen, Time: 2:50 PM FUV, Provider: Ronine Murphy, Status: Pen, Time: 2:50 PM VO-Ahqcghbdalikew-Mpa [place] Work Phone: Start: 03-31-2021 POV, Provider: Ronnie Murphy, Status: Pen, Time: 3:00 PM POV, Provider: Ronnie Murphy, Status: Pen, Time: 3:00 PM XY-Grekyobkwzzyft-Lti dman Work Phone: Start: 03-19-2021 [facility] [place]: Ronnie Murphy, Status: Pen, Time: 9:00 AM [facility], Provider: Ronnie Murphy, Status: Pen, Time: 9:00 AM TY-Tfwxxixygesank-Xgt [place] Work Phone: Start: 03-03-2021 FUV, Provider: Ronnie Murphy, Status: Pen, Time: 1:00 PM FUV, Provider: Ronnie Murphy, Status: Pen, Time: 1:00 PM VT-Hbanneybtgghrj-Jxd [place] Work Phone: Start: 2017 Hepatitis B Vaccines (1 of 3 - Risk 3-dose series) Hepatitis B Vaccines (1 of 3 - Risk 3-dose series) [facility] Start: 2007 Zoster Vaccines (1 of 2) Zoster Vaccines (1 of 2) [facility] Start: 1979 DTaP/Tdap/Td Vaccines (1 - Tdap) DTaP/Tdap/Td Vaccines (1 - Tdap) [facility] Start: 1978 Screening for malignant neoplasm of cervix [facility] Start: 1976 Hepatitis A Vaccines (1 of 2 - Risk 2-dose series) Hepatitis A Vaccines (1 of 2 - Risk 2-dose series) [facility] Start: 1976 Urine screening for protein Diabetes: Urine Protein Screening [facility] Start: 1975 Hepatitis C screening Hepatitis C Screening [facility] Start: 1967 Diabetic foot examination Diabetes: Foot Exam [facility] Start: 1967 Glaucoma screening Diabetes: Retinopathy Screening [facility] Start: 1963 Pneumococcal Vaccine: 65+ Years (1 - PCV) Pneumococcal Vaccine: 65+ Years (1 - PCV) [facility] Start: 1958 MMR Vaccines (1 of 1 - Standard series) MMR Vaccines (1 of 1 - Standard series) [facility] Start: 1957 Hemoglobin A1c measurement Diabetes: Hemoglobin A1C [facility] Start: 1957 Lipid panel Lipid Panel [facility] Start: 1957 Screening for malignant neoplasm of colon [facility] Start: 1957 Screening for osteoporosis Bone Density Scan [facility] Start: 1957 Thyroid stimulating hormone measurement TSH Level [facility] Start: 1957 Yearly Adult Physical Yearly Adult Physical [facility] Immunizations Immunization Date Immunization Notes Care Provider Fa cility 05-11-2022 Pfizer COVID-19 Vac Bivalent 30 MCG/0.3ML Intramuscular Suspension Gopi Solis MD Work Phone: [facility] 250 DO Work Phone: 04-02-2021 Pfizer-BioNTech COVID-19 Vacc 30 MCG/0.3ML Intramuscular Suspension Gopi Solis MD Work Phone: [facility] 250 DO Work Phone: 09-15-2020 Pfizer-BioNTech COVID-19 Vacc 30 MCG/0.3ML Intramuscular Suspension Gopi Solis MD Work Phone: [facility] 250 DO Work Phone: 08-25-2020 Pfizer-BioNTech COVID-19 Vacc 30 MCG/0.3ML Intramuscular Suspension Gopi Solis MD Work Phone: [facility] 250 DO Work Phone: Payers Date Payer Category Payer Private Health Insurance [id number] 2022 Self-pay 1959 Private Health Insurance [id number] 1957 Unknown [id number] 2.16. [id number] 1957 Unknown [id number] 2.16. [id number] 1957 Unknown [id number] 2.16.84 [id number] 1957 Unknown [id number] 2.16.84 [id number] 1957 Unknown [id number] 2.16.84 [id number] 1957 Unknown [id number] 2.16.84 [id number] 1957 Unknown [id number] 2.16.8 [id number] Unknown Unknown [id number] Unknown [id number] Unknown [id number] 2.16.8 [id number] Unknown [id number] 2.16.8 [id number] Social History Date Type Detail Facility Start: 02-22-2023 Never a smoker Never a smoker [facility]: Comment on above: pop 3 daily; Start: 02-22-2023 Sex Assigned At Female [facility] Start: 02-22-2023 Tobacco smoking status NHIS Never smoked tobacco [facility] Start: 02-22-2023 Tobacco use and exposure Smokeless tobacco non-user [facility] Work Phone: Start: 1955 Sex Assigned At Not on file [facility] Work Phone: Start: 02-12-2023 End: 02-22-2023 Exposure to SARS-CoV-2 (event) Not sure [facility] NEGATED: Highlighted row - - AC-Gedkgwyluvdruj-Wd m in [place] [address] Work Phone: Medical Equipment Procedure Code Equipment Code Equipment Origin al Text Equipment Identifier Dates Pen [place] 32G X 4 MM Start: 02-01-2023 Laser Engineerin luana Hwg 500 Fiber Case [id number] Start: 03-19-2021 Comment on above: Description: Convert ed from [facility]. Please see archived information for full log information. Additional Information:per bill only jdr 03/28/2021 1456pm Functional Status Date Assessment Result Facility NEGATED: Highlighted row Functional performance Functional status health issues are not documented Disease SR-Dhmkhabiakfezk-V [place] [address] Work Phone: Mental Status Date Assessment Result Facility NEGATED: Highlighted row Cognitive function [Interpretation] Cognitive status health issues are not documented Disease XF-Gwcxbmljbmjple-O [place] [address] Work Phone: Clinical Notes 03-03-2021 to 02-22-2023 Ronnie Murphy MD - 02/22/2023 2:45 PM EDT Note Date & Type Note Facility 02-22-2023 History of Present illness Narrative Provider Impressions 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 I do believe that the stenotic segment is well-healed and this probably will not get worse. The patient was encouraged to lose weight. Reflux laryngitis for which she is on omeprazole. I will see her in 1 year. Chief Complaint Follow-up regarding tracheal stenosis History of Present Illness This patient presented with a tracheal stenosis. I first saw her back in 2010 when the first dilation was done. She ended up being redilated in April of 2016. She seems to have had some issues going up stairs and doing any exercise. That does not seem to be worse than previously. At the same time it feels like it is somewhat limiting. She had a CT scan of her trachea done on March 03, 2021. I personally reviewed that scan. It does show a stenotic segment. I do not believe that the stenotic segment is stenosed in more than 40%. On March 19, 2021 she was brought to the operating room for CO2 laser and dilation. She is here today for follow-up. She was diagnosed as being diabetic and has been put on Ozempic. She lost 25 pounds with that and that really helped her breathing. She really does not have any significant issues. She does have some throat irritation most likely from reflux. She continues to use omeprazole. Physical Exam A flexible laryngoscopy was carried out. Under topical Xylocaine and Eleuterio-Synephrine the scope was introduced through the nostril. The nasopharynx, base of tongue, hypopharynx, and larynx are visualized. The vocal cords are normally mobile. I was able to pass the scope into the upper trachea. The stenotic segment is a few centimeters below the vocal cords. It is definitely not more than 30 to 40%. There is no evidence of any inflammation. documented in this encounter [facility] Work Phone: 02-15-2023 Evaluation note Encounter Date Diagnosis Assessment Notes Jan, Obesity (ICD-10 - E66.9) Jan, BMI 40.0-44.9, adult (ICD-10 - Z68.41) Jan, Other Summary of Visit: (A) discussed plate method and adding fiber foods to recipes she is already comfortable making (B) quick veggies to add to meals including fresh, frozen or canned (C) storage tips to keep produce longer (D) tips for using spices, turmeric Patient set the following goals: - try to add green beans, salad or other veggie/fruit w/ dinner; PARTIALLY MET, ON-GOING [employer] Other [id number] Evaluation note* Encounter Date Diagnosis Assessment Notes Treatment Notes Treatment Clinical Notes Jan, Obesity (ICD-10 - E66.9) [facility], then sent to [facility] preferred pharmacy. Sent to [facility] preferred. Jan, BMI 40.0-44.9, adult (ICD-10 - Z68.41) Jan, Hypothyroid (ICD-10 - E03.9) Interval surveillance and optimization Jan, Diabetes type 2, uncontrolled (ICD-10 - E11.65) jacquie Sheldon 11/30/2022 Discussed how diabetes II delayed or avoided with lifestyle changes such as, losing weight, being active, improving dietary intake. Discussed the risks for diabetes. Explained that weight loss of 5-10% can have significant impact. Consistent with weight management recommendations , encouraged diet rich in fruits, vegetables, low fat dairy, low in red meat sweets and refined grains. Stay away from soda and fruit juice. Increase activity 30 minutes most days of the week. Jan, Anxiety and depressi on (ICD-10 - F41.8) Consideration mental health to assure proper goal setting and strategies for success Jan, Heartburn (ICD-10 - R12) Dis cussed possibility of worsening of reflux with GLP-1 medications. Weight loss can also contribute to resolution of Jan, Hyperlipidemia (ICD- 10 - E78.5) Discussed risks of elevated LDL. Encouraged intake of foods low in saturated fat as well as supplements (jamel, fish oil). Discussed LDL contributing to insulin resistance and increase cardiovascular risk factors. Jan, Snores (ICD-10 - R06.83) Jan, RYANNE (obstructive sle ep apnea) (ICD-10 - G47.33) Attention to sleep hygiene: Sleep at least 6 hours without interruption per 24 hours, best during same time of night. Avoid interruptions in sleep, turn off cell phones, engage friends and family to respect sleep time. This is difficult at first but remain in bed for at least 3 hours at a time and increased for 1 week until reset of the sleep-wake cycle. Consider discussion with PCP if no increased feelings of restfulness/vigila nce during awake hours. Might necessitate sleep adjunct.. Encourage vigilance to CPAP Jan, Vitamin D deficiency (ICD-10 - E55.9) Jan, Hypertriglyceridemia (ICD-10 - E78.1) Jan, Fatigue (ICD-10 - R53.83) Jan, Other I have spent 30 minutes with this patient and over 50% of the visit was counseling done by myself, Moira NICHOLS. [employer] Other 08-23-2023 Evaluation note* Encounter Date Diagnosis Assessment Notes Treatment Notes Treatment Clinical Notes Nov, Obesity (ICD-10 - E66.9) Nov, BMI 40.0-44.9, adult (ICD-10 - Z68.41) Nov, Other Summary of Visi t: (A) discussed plate method and adding fiber foods to recipes she is already comfortable making (B) quick ingredient foods (C) storage tips to keep produce longer Patient set the following goals: - try to add green beans, salad or other veggie/fruit w/ dinner [employer] Other 06-20-2023 Evaluation note* Encounter Date Diagnosis Assessment Notes Treatment Notes Treatment Clinical Notes Sep, Obesity, unspecified classification, unspecified obesity type, unspecified whether serious comorbidity present (ICD-10 - E66.9) Sep, BMI 40.0-44.9, adult (ICD-10 - Z68.41) Sep, Other Summary of Visi t: (A) Presentation of Plate Method discussed (B) Sample meal ideas reviewed (C) exercise recommendations reviewed Patient set the following goals: - patient set personal goal using given handout. [employer] Other 06-20-2023 Evaluation note* Encounter Date Diagnosis Assessment Notes Treatment Notes Treatment Clinical Notes Sep, Obesity (ICD-10 - E66.9) [facility], then sent to non preferred pharmacy. Sent to [facility] per [facility] preferred. Sep, BMI 40.0-44.9, adult (ICD-10 - Z68.41) Sep, Hypothyroid (ICD-10 - E03.9) Interval surveillance and optimization Sep, Diabetes type 2, uncontrolled (ICD-10 - E11.65) Discussed how diabetes II delayed or avoided with lifestyle changes such as, losing weight, being active, improving dietary intake. Discussed the risks for diabetes. Explained that weight loss of 5-10% can have significant impact. Consistent with weight management recommendations, encouraged diet rich in fruits, vegetables, low fat dairy, low in red meat sweets and refined grains. Stay away from soda and fruit juice. Increase activity 30 minutes most days of the week. Sep, Anxiety and depressi on (ICD-10 - F41.8) Consideration mental health to assure proper goal setting and strategies for success Sep, Heartburn (ICD-10 - R12) Dis cussed possibility of worsening of reflux with GLP-1 medications. Weight loss can also contribute to resolution of Sep, Hyperlipidemia (ICD- 10 - E78.5) Discussed risks of elevated LDL. Encouraged intake of foods low in saturated fat as well as supplements (jamle, fish oil). Discussed LDL contributing to insulin resistance and increase cardiovascular risk factors. Sep, Snores (ICD-10 - R06.83) Sep, RYANNE (obstructive sle ep apnea) (ICD-10 - G47.33) Attention to sleep hygiene: Sleep at least 6 hours without interruption per 24 hours, best during same time of night. Avoid interruptions in sleep, turn off cell phones, engage friends and family to respect sleep time. This is difficult at first but remain in bed for at least 3 hours at a time and increased for 1 week until reset of the sleep-wake cycle. Consider discussion with PCP if no increased feelings of restfulness/vigila nce during awake hours. Might necessitate sleep adjunct.. Encourage vigilance to CPAP Sep, Vitamin D deficiency (ICD-10 - E55.9) Sep, Hypertriglyceridemia (ICD-10 - E78.1) Sep, Fatigue (ICD-10 - R53.83) Sep, Other I have spent 30 minutes with this patient and over 50% of the visit was counseling done by myself, Moira NICHOLS. [employer] Other 03-28-2023 Evaluation note* Encounter Date Diagnosis Assessment Notes Treatment Notes Treatment Clinical Notes Jun, Obesity (ICD-10 - E66.9) [facility] sent wrong diagnosis code, then sent to non preferred pharmacy. Sent to [facility] per [facility] preferred. Jun, BMI 40.0-44.9, adult (ICD-10 - Z68.41) Jun, Hypothyroid (ICD-10 - E03.9) Interval surveillance and optimization Jun, Diabetes type 2, uncontrolled (ICD-10 - E11.65) Discussed how diabetes II delayed or avoided with lifestyle changes such as, losing weight, being active, improving dietary intake. Discussed the risks for diabetes. Explained that weight loss of 5-10% can have significant impact. Consistent with weight management recommendations, encouraged diet rich in fruits, vegetables, low fat dairy, low in red meat sweets and refined grains. Stay away from soda and fruit juice. Increase activity 30 minutes most days of the week. Jun, Anxiety and depressi on (ICD-10 - F41.8) Consideration mental health to assure proper goal setting and strategies for success Jun, Heartburn (ICD-10 - R12) Dis cussed possibility of worsening of reflux with GLP-1 medications. Weight loss can also contribute to resolution of Jun, Hyperlipidemia (ICD- 10 - E78.5) Discussed risks of elevated LDL. Encouraged intake of foods low in saturated fat as well as supplements (jamel, fish oil). Discussed LDL contributing to insulin resistance and increase cardiovascular risk factors. Jun, Snores (ICD-10 - R06.83) Jun, RYANNE (obstructive sle ep apnea) (ICD-10 - G47.33) Attention to sleep hygiene: Sleep at least 6 hours without interruption per 24 hours, best during same time of night. Avoid interruptions in sleep, turn off cell phones, engage friends and family to respect sleep time. This is difficult at first but remain in bed for at least 3 hours at a time and increased for 1 week until reset of the sleep-wake cycle. Consider discussion with PCP if no increased feelings of restfulness/vigila nce during awake hours. Might necessitate sleep adjunct.. Encourage vigilance to CPAP Jun, Vitamin D deficiency (ICD-10 - E55.9) Jun, Hypertriglyceridemia (ICD-10 - E78.1) Jun, Fatigue (ICD-10 - R53.83) Jun, Other I have spent 30 minutes with this patient and over 50% of the visit was counseling done by myself, Moira NICHOLS. [employer] Other 02-14-2023 Evaluation note* Encounter Date Diagnosis Assessment Notes Treatment Notes Treatment Clinical Notes Jun, Obesity, unspecified classification, unspecified obesity type, unspecified whether serious comorbidity present (ICD-10 - E66.9) Jun, BMI 40.0-44.9, adult (ICD-10 - Z68.41) Jun, Other Summary of Visi t: (A) Presentation of Plate Method discussed (B) Sample meal ideas reviewed (C) exercise recommendations reviewed Patient set the following goals: - patient set personal goal using given handout. [employer] Other 01-31-2023 Evaluation note* Encounter Date Diagnosis Assessment Notes Treatment Notes Treatment Clinical Notes May, Obesity (ICD-10 - E66.9) first sent wrong diagnosis code, then sent to non preferred pharmacy. Sent to [facility] per [facility] preferred. May, BMI 40.0-44.9, adult (ICD-10 - Z68.41) May, Hypothyroid (ICD-10 - E03.9) Interval surveillance and optimization May, Diabetes type 2, uncontrolled (ICD-10 - E11.65) Discussed how diabetes II delayed or avoided with lifestyle changes such as, losing weight, being active, improving dietary intake. Discussed the risks for diabetes. Explained that weight loss of 5-10% can have significant impact. Consistent with weight management recommendations, encouraged diet rich in fruits, vegetables, low fat dairy, low in red meat sweets and refined grains. Stay away from soda and fruit juice. Increase activity 30 minutes most days of the week. May, Anxiety and depression (ICD-10 - F41.8) Consideration mental health to assure proper goal setting and strategies for success May, Heartburn (ICD-10 - R12) Discussed possibility of worsening of reflux with GLP-1 medications. Weight loss can also contribute to resolution of May, Hyperlipidemia (ICD-10 - E78.5) Discussed risks of elevated LDL. Encouraged intake of foods low in saturated fat as well as supplements (jamel, fish oil). Discussed LDL contributing to insulin resistance and increase cardiovascular risk factors. May, Snores (ICD-10 - R06.83) May, RYANNE (obstructive sleep apnea) (ICD-10 - G47.33) Attention to sleep hygiene: Sleep at least 6 hours without interruption per 24 hours, best during same time of night. Avoid interruptions in sleep, turn off cell phones, engage friends and family to respect sleep time. This is difficult at first but remain in bed for at least 3 hours at a time and increased for 1 week until reset of the sleep-wake cycle. Consider discussion with PCP if no increased feelings of restfulness/vigilanc e during awake hours. Might necessitate sleep adjunct.. Encourage vigilance to CPAP May, Other I have spent 30 minutes with this patient and over 50% of the visit was counseling done by myself, Moira NICHOLS. [employer] Other 01-31-2023 History of Present illness Narrative* Patient is here for cardiovascular evaluation for abnormal echocardiogram. She is a 67-year-old morbidly obese white female with history of sleep apnea who had the actual recorded measurement does not meet the criteria for that the actual measurement does not meet the criteria for LVH and a question RV dilatation but the study was of very poor quality. Patient admitted to functional class II and may be 3 shortness of breath. She can walk 1-2 blocks but developed shortness of breath. She admits to sedentary lifestyle. She reports history of sleep apnea but she is compliant with her CPAP. The patient have a history of tracheal stenosis and was seen by ENT in the past. The patient had multiplerisk factor for ischemic heart disease including age, hyperlipidemia and diabetes mellitus in addition sedentary lifestyle and morbid obesity * Plan * 1. Borderline abnormal poor quality echocardiogram read at an outlying institution. It suggest ventricular hypertrophy even though the actual measurement does not meet the criteria for LVH in addition there was questionable RV dilatation which I suspect could be related to sleep apnea this quality of the study was poor and limited. * 2. Symptoms of dyspnea on exertion appears to be multifactorial related to morbid obesity, sedentary lifestyle and history of tracheal stenosis however underlying ischemic heart disease has to be excluded patient functional class I she is morbidly obese unable to do a treadmill stress test * 3. Diabetes mellitus * 4. Morbid obesity * 5. Sleep apnea compliant with CPAP * 6. Hyperlipidemia * 7. Reported history of tracheal stenosis has been seen by ENT * Plan * 1. I reassured the patient in regard to her echo finding that appears to be nonspecific and could be consistent with sleep apnea * 2. I recommended proceeding with Lexiscan myocardial fusion study in view of complaint of shortnessof breath functional class almost 3 with inability to do treadmill due to morbid obesity * 3. We discussed primary prevention for coronary artery disease at great length * 4. I encouraged her to continue her efforts to lose weight and exercise * 5. Follow-up after testing is done [place] [id number] DO Work Phone: 1(978) 211-783711-02-2021 History of Present illness NarrativeThis patient presented with a tracheal stenosis. I first saw her back in 2010 when the first dilation was done. She ended up being redilated in April of 2016. She seems to have had some issues going up stairs and doing any exercise. That does not seem to be worse than previously. At the same time it feels like it is somewhat limiting. She had a CT scan of her trachea done on March 03, 2021. I personally reviewed that scan. It does show a stenotic segment. I do not believe that the stenoticsegment is stenosed in more than 40%. On March 19, 2021 she was brought to the operating room for CO2 laser and dilation. She is here today for follow-up. She is doing much better and is very pleased with the results. [facility] Work Phone: 1(844) 983-285311-02-2021 History of Present illness NarrativeThis patient presented with a tracheal stenosis. I first saw her back in 2010 when the first dilation was done. She ended up being redilated in April of 2016. She seems to have had some issues going up stairs and doing any exercise. That does not seem to be worse than previously. At the same time it feels like it is somewhat limiting. She had a CT scan of her trachea done on March 03, 2021. I personally reviewed that scan. It does show a stenotic segment. I do not believe that the stenoticsegment is stenosed in more than 40%. On March 19, 2021 she was brought to the operating room for CO2 laser and dilation. She is here today for follow-up. Her breathing has remained stable.[facility] Work Phone: chief complaint Narrative - ReportedBETH DONOVAN is being seen for a consultation for LVH.-[facility] DO Work Phone: Evaluation + Plan note No data available for this section [facility] noteNo InformationNortEncompass Health [facility] [employer] Other Evaluation note* Diagnosis Tracheal stenosis- Primary Other diseases of trachea and bronchus documented in this encounter [facility] Work Phone: History general Narrative - Reported* Type Description Date Medical History thyroid disease Medical History Cholesterol Medical History depression Medical History acid reflux Medical History bipolar Surgical History breast reduction Surgical History throat surgery Surgical History hernia Hospitalization History see surgical hx [facility] [employer] Other Hisjraq general Narrative - Reported* Type Description Date Medical History thyroid disease Medical History Cholesterol Medical History depression Medical History acid reflux Medical History bipolar Surgical History breast reduction Surgical History throat surgery Surgical History hernia Hospitalization History see surgical hx Hospitalization History UTI [facility] 07/2022 [facility] Other History of Present illness NarrativeThis patient presented with a tracheal stenosis. I first saw her back in 2010 when the first dilation was done. She ended up being redilated in April of 2016. She seems to have had some issues going up stairs and doing any exercise. That does not seem to be worse than previously. At the same time it feels like it is somewhat tuxrnjptBN-Oesexhtmqjglrq-Gxzexcdb Work Phone: Hospital Discharge instructions No data available for this section [facility] Family History No Family History Records Found Mother Name Dates Details Family history of malignant neoplasm of breast(V16.3, Z80.3) Status:Active Father Name Dates Details Family history of diabetes m ellitus(V18.0, Z83.3) Status:Active Family history of congestive heart failure(V17.49, Z82.49) Status:Active Family history of Status:Active Brother Name Dates Details Family history of malignant neoplasm of kidney(V16.51, Z80.51) Status:Active Mother Name Dates Details Family history of malignant neoplasm of breast(V16.3, Z80.3) Status:Active Father Name Dates Details Family history of diabetes m ellitus(V18.0, Z83.3) Status:Active Family history of congestive heart failure(V17.49, Z82.49) Status:Active Family history of Status:Active Brother Name Dates Details Family history of malignant neoplasm of kidney(V16.51, Z80.51) Status:Active Mother Name Dates Details Family history of malignant neoplasm of breast(V16.3, Z80.3) Status:Active Father Name Dates Details Family history of diabetes m ellitus(V18.0, Z83.3) Status:Active Family history of congestive heart failure(V17.49, Z82.49) Status:Active Family history of (7 99.9, R99) Status:Active Brother Name Dates Details Family history of malignant neoplasm of kidney(V16.51, Z80.51) Status:Active Mother Name Dates Details Family history of malignant neoplasm of breast(V16.3, Z80.3) Status:Active Father Name Dates Details Family history of diabetes m ellitus(V18.0, Z83.3) Status:Active Family history of congestive heart failure(V17.49, Z82.49) Status:Active Family history of (7 99.9, R99) Status:Active Brother Name Dates Details Family history of malignant neoplasm of kidney(V16.51, Z80.51) Status:Active Unknown Family Member Name Dates Details Family history of malignant neoplasm of breast: Mother(V16.3, Z80.3) Status:Active Family history of malignant neoplasm of kidney: Brother(V16.51, Z80.51) Status:Active Family history of diabetes m ellitus: Father(V18.0, Z83.3) Status:Active Family history of congestive heart failure: Father(V17.49, Z82.49) Status:Active : Father Status:Active Unknown Family Member Name Dates Details Family history of malignant neoplasm of breast: Mother(V16.3, Z80.3) Status:Active Family history of malignant neoplasm of kidney: Brother(V16.51, Z80.51) Status:Active Family history of diabetes m ellitus: Father(V18.0, Z83.3) Status:Active Family history of congestive heart failure: Father(V17.49, Z82.49) Status:Active : Father Status:Active Unknown Family Member Name Dates Details Family history of malignant neoplasm of breast: Mother(V16.3, Z80.3) Status:Active Family history of malignant neoplasm of kidney: Brother(V16.51, Z80.51) Status:Active Family history of diabetes m ellitus: Father(V18.0, Z83.3) Status:Active Family history of congestive heart failure: Father(V17.49, Z82.49) Status:Active : Father Status:Active Unknown Family Member Name Dates Details Family history of malignant neoplasm of breast: Mother(V16.3, Z80.3) Status:Active Family history of malignant neoplasm of kidney: Brother(V16.51, Z80.51) Status:Active Family history of diabetes m ellitus: Father(V18.0, Z83.3) Status:Active Family history of congestive heart failure: Father(V17.49, Z82.49) Status:Active : Father Status:Active Unknown Family Member Name Dates Details Family history of malignant neoplasm of breast: Mother(V16.3, Z80.3) Status:Active Family history of malignant neoplasm of kidney: Brother(V16.51, Z80.51) Status:Active Family history of diabetes m ellitus: Father(V18.0, Z83.3) Status:Active Family history of congestive heart failure: Father(V17.49, Z82.49) Status:Active : Father Status:Active Unknown Family Member Name Dates Details Family history of malignant neoplasm of breast: Mother(V16.3, Z80.3) Status:Active Family history of malignant neoplasm of kidney: Brother(V16.51, Z80.51) Status:Active Family history of diabetes m ellitus: Father(V18.0, Z83.3) Status:Active Family history of congestive heart failure: Father(V17.49, Z82.49) Status:Active : Father Status:Active Unknown Family Member Name Dates Details Family history of malignant neoplasm of breast: Mother(V16.3, Z80.3) Status:Active Family history of malignant neoplasm of kidney: Brother(V16.51, Z80.51) Status:Active Family history of diabetes m ellitus: Father(V18.0, Z83.3) Status:Active Family history of congestive heart failure: Father(V17.49, Z82.49) Status:Active : Father Status:Active Unknown Family Member Name Dates Details Family history of malignant neoplasm of breast: Mother(V16.3, Z80.3) Status:Active Family history of malignant neoplasm of kidney: Brother(V16.51, Z80.51) Status:Active Family history of diabetes m ellitus: Father(V18.0, Z83.3) Status:Active Family history of congestive heart failure: Father(V17.49, Z82.49) Status:Active : Father Status:Active Unknown Family Member Name Dates Details Family history of malignant neoplasm of breast: Mother(V16.3, Z80.3) Status:Active Family history of malignant neoplasm of kidney: Brother(V16.51, Z80.51) Status:Active Family history of diabetes m ellitus: Father(V18.0, Z83.3) Status:Active Family history of congestive heart failure: Father(V17.49, Z82.49) Status:Active : Father Status:Active Unknown Family Member Name Dates Details Family history of malignant neoplasm of breast: Mother(V16.3, Z80.3) Status:Active Family history of malignant neoplasm of kidney: Brother(V16.51, Z80.51) Status:Active Family history of congestive heart failure: Father(V17.49, Z82.49) Status:Active : Father Status:Active Family history of diabetes m ellitus: Father, Sister(V18.0, Z83.3) Status:Active Unknown Family Member Name Dates Details Family history of malignant neoplasm of breast: Mother(V16.3, Z80.3) Status:Active Family history of malignant neoplasm of kidney: Brother(V16.51, Z80.51) Status:Active Family history of congestive heart failure: Father(V17.49, Z82.49) Status:Active : Father Status:Active Family history of diabetes m ellitus: Father, Sister(V18.0, Z83.3) Status:Active Unknown Family Member Name Dates Details Family history of malignant neoplasm of breast: Mother(V16.3, Z80.3) Status:Active Family history of malignant neoplasm of kidney: Brother(V16.51, Z80.51) Status:Active Family history of congestive heart failure: Father(V17.49, Z82.49) Status:Active : Father Status:Active Family history of diabetes m ellitus: Father, Sister(V18.0, Z83.3) Status:Active Chief Complaint Follow-up regarding tracheal stenosisFollow-up regarding tracheal stenosis Follow-up regarding tracheal stenosis Summary Purpose Advance Directives No Advanced Directives Records FoundNo Advanced Directives Records FoundNo Advanced Directives Records FoundNo Advanced Directives Records FoundNo Advanced Directives Records FoundNo Advanced Directives Records Found Additional Source Comments INFORMATION SOURCE (unrecogn ized section and content) DATE CREATED AUTHOR [facility]15/2021 [facility] DATE CREATED AUTHOR AUTHOR'S ORGANIZ ATION 06/02/2022 [facility] DATE CREATED AUTHOR AUTHOR'S ORGANIZ ATION 06/02/2022 [employer] DATE CREATED AUTHOR AUTHOR'S ORGANIZ ATION 09/09/2022 [facility] DATE CREATED AUTHOR AUTHOR'S ORGANIZ ATION 02/27/2023 [facility] DATE CREATED AUTHOR AUTHOR'S ORGANIZ ATION 05/06/2023 [facility] REASON FOR VISIT (unrecogniz ed section and content) Reason Comments Follow-up FOR RECORDS PERTAINING TO PATIENTS WHO ARE OR HAVE BEEN ENROLLED IN A CHEMICAL DEPENDENCY/SUBSTANCEABUSE PROGRAM, SOME INFORMATION MAY BE OMITTED. This clinical summary was aggregated from multiple sources. Caution should be exercised in using it in the provision of clinical care. This summary normalizes information from multiple sources, and as a consequence, information in this document may materially change the coding, format and clinical context of patient data. In addition, data may be omitted in some cases. CLINICAL DECISIONS SHOULD BE BASED ON THE PRIMARY CLINICAL RECORDS. [employer] [facility]. provides no warranty or guarantee of the accuracy or completeness of information in this document.
--- NOTE | 2023-05-14 23:45 | ED_ITS ---
HPI - Abdominal Pain General Chief Complaint: Abdominal Pain Stated Complaint: abd pain Time Seen by Provider: 05/14/23 23:44 Source: patient Mode of arrival: walk-in Limitations: no limitations History of Present Illness HPI narrative: presents complaining of pain from her hiatal hernia. Points to epigastric area as site of burning pain that started last PM. States she takes prilosec daily. Took tums last night without improvement. No dyspnea. Burning pain now radiating into her right chest. No nausea MD elicited complaint: Reports abdominal pain Related Data Home Medications Medication Instructions Recorded Confirmed levothyroxine 100 mcg tablet 100 mcg PO DAILY 05/15/23 05/15/23 lorazepam 0.5 mg tablet 0.5 mg PO PRN anxiety 05/15/23 metformin 500 mg tablet 500 mg PO DAILY 05/15/23 05/15/23 omeprazole 20 mg capsule,delayed 20 mg PO BID 05/15/23 05/15/23 release risperidone 2 mg tablet 2 mg PO .HS 05/15/23 05/15/23 simvastatin 40 mg tablet 40 mg PO DAILY 05/15/23 05/15/23 venlafaxine 75 mg tablet 75 mg PO Q12H 05/15/23 05/15/23 Allergies Allergy/AdvReac Type Severity Reaction Status Date / Time No Known Drug Allergies Allergy Verified 05/14/23 23:32 Review of Systems ROS Status of ROS 10 or more systems reviewed and unremark able except as noted in history and below [facility] Social History Smoking status: Former smoker Exam Constitutional Vital Signs, click to edit/add: Last Vital Signs Temp 98.8 F 05/14/23 23:23 Pulse 74 05/15/23 02:44 Resp 18 05/15/23 02:44 BP 141/69 05/15/23 02:44 Pulse Ox 94 L 05/15/23 02:44 O2 Del Method Room Air 05/15/23 02:44 Common normals: no apparent distress, oriented x3, no limitations, healthy appearing, alert and well nourished [facility] Common normals: normocephalic and head/scalp atraumatic Eye Common normals: EOMs intact bilaterally and conjunctivae normal Respiratory Common normals: normal respiratory effort, no retractions, no use of accessory muscles and clear to auscultation bilaterally Cardio Common normals: regular rate, regular rhythm, S1 normal heart sound and S2 normal heart sound GI Other: epigastric mild tenderness. no guarding Extremity Common normals: normal to inspection and full ROM Neuro Common normals: oriented x3, CN's II-XII intact bilaterally, moves all extremities, no focal motor deficits and no sensory deficits noted Psych Appearance: grossly normal Course Vital Signs Vital signs: Vital Signs Temperature 98.8 F 05/14/23 23:23 Pulse Rate 74 05/14/23 23:23 Respiratory Rate 16 05/14/23 23:23 Blood Pressure 176/76 H 05/14/23 23:23 Pulse Oximetry 95 05/14/23 23:23 Oxygen Delivery Method Room Air 05/14/23 23:23 Temperature 98.8 F 05/14/23 23:23 Pulse Rate 74 05/15/23 02:44 Respiratory Rate 18 05/15/23 02:44 Blood Pressure 141/69 05/15/23 02:44 Pulse Oximetry 94 L 05/15/23 02:44 Oxygen Delivery Method Room Air 05/15/23 02:44 MDM - Abdominal Pain MDM Narrative Medical decision making narrative: diabetic overweight patient presents with epigastric pain. labs unremarkable including normal troponin and LFTs. CT with findings of possible cholecystitis. US without evidence of cholecystitis but she does have a stone in the gallbladder neck. She is afebrile . WBC 12. Discussed with transactional paralegal surgeon Dr Salvador. He questions if there may be another cause for her pain. She continues to have pain despite several doses of narcotics. Will plan admission for pain control. Lab Data Labs: Lab Results 05/14/23 Range/Units 00:00 WBC 12.3 H (4.0-11.0) 10^3/uL RBC 3.97 L (4.20-5.40) 10^6/uL Hgb 11.7 L (12.0-16.0) g/dL Hct 36.2 (36.0-48.0) % MCV 91.2 (81.0-99.0) fL MCH 29.5 (26.7-34.0) pg MCHC 32.3 (29.9-35.2) g/dL RDW 12.6 (11.0-15.0) % Plt Count 317 (150-450) 10^3/uL MPV 9.7 (9.5-13.5) fL Neut % (Auto) 77.0 H (43.0-75.0) % Lymph % (Auto) 14.7 L (20.5-60.0) % [place] % (Auto) 6.4 (1.7-12.0) % Eos % (Auto) 0.7 L (0.9-7.0) % Baso % (Auto) 0.5 (0.2-2.0) % Neut # (Auto) 9.5 H (1.4-6.5) 10^3/uL Lymph # (Auto) 1.8 (1.2-3.8) 10^3/uL [place] # (Auto) 0.8 (0.3-0.8) 10^3/uL Eos # (Auto) 0.1 (0.0-0.7) 10^3/uL Baso # (Auto) 0.1 (0.0-0.1) 10^3/uL Abs Immat Gran (auto) 0.09 H (0.00-0.03) 10^3/uL Imm/Tot Granulo (auto) 0.7 H (0.0-0.5) % Sodium 138 (136-145) mmol/L Potassium 4.1 (3.5-5.1) mmol/L Chloride 102 (98-107) mmol/L Carbon Dioxide 27.8 (21.0-32.0) mmol/L Anion Gap 12.3 BUN 14.0 (7.0-18.0) mg/dL Creatinine 0.83 (0.55-1.02) mg/dL Est GFR ( Amer) >60 (>=60) Est GFR (Non-Af Amer) >60 (>=60) BUN/Creatinine Ratio 16.9 Glucose 117 H (74-106) mg/dL Calcium 8.8 (8.5-10.1) mg/dL Total Bilirubin 0.4 (0.2-1.0) mg/dL AST 14 L (15-37) U/L ALT 24 (14-59) U/L Alkaline Phosphatase 85 (46-116) U/L Troponin I High Sens 4.0 (4.0-51.3) pg/mL Total Protein 7.2 (6.4-8.2) g/dL Albumin 3.6 (3.4-5.0) g/dL Globulin 3.6 g/dL Albumin/Globulin Ratio 1.0 Lipase 24.0 (16.0-77.0) U/L Imaging Data US - abdomen: Radiologist's impression: ITS Impressions Chest X-Ray 05/14/23 23:49 IMPRESSION: No acute cardiopulmonary abnormalities. Electronically authenticated by: GAIL HOLBROOK Date: 05/15/2023 00:38 Abdomen/Pelvis CT 05/14/23 23:51 IMPRESSION: There is some mild pericholecystic edema with a tiny hyperdensity near the gallbladder neck which may represent a small stone. Right upper quadrant sonography is recommended for further evaluation. Electronically authenticated by: MP KELLEY Date: 05/15/2023 01:31 Upper Quadrant Ultrasound 05/15/23 01:43 IMPRESSION: 1. Large 2.5 cm stone in the gallbladder neck. No sonographic findings of cholecystitis. 2. Hepatomegaly. Electronically authenticated by: STEPHY BOYD Date: 05/15/2023 05:41 Discharge Plan Discharge Chief Complaint: Abdominal Pain Clinical Impression: Abdominal pain, Cholelithiasis Prescriptions / Home Meds: No Action venlafaxine 75 mg tablet 75 mg PO Q12H risperidone 2 mg tablet 2 mg PO .HS levothyroxine 100 mcg tablet 100 mcg PO DAILY simvastatin 40 mg tablet 40 mg PO DAILY omeprazole 20 mg capsule,delayed release(DR/EC) 20 mg PO BID metformin 500 mg tablet 500 mg PO DAILY lorazepam 0.5 mg tablet 0.5 mg PO PRN (Reason: anxiety) Referrals: ADI GRANT [Primary Care Provider] - 1 week
--- NOTE | 2023-05-14 23:49 | ECG_ITS ---
[facility] Test Date: 2023-05-14 Pat Name: BETH DONOVAN Department: Room: - Gender: Female [employer]member: : 1955 Requested By: ADI GRANT Order Number: [id number] Reading MD: SALVADOR CERVANTES Measurements Intervals [place] Rate: 69 P: 25 AK: 178 QRS: 29 QRSD: 88 T: 15 QT: 394 QTc: 413 Interpretive Statements 1100 Sinus rhythm 8102 Low QRS voltage in chest leads 9120 atypical ECG Compared to ECG 06/29/2022 09:42:22 Sinus tachycardia no longer present Electronically Signed On 05-15-2023 9:23:41 EST by SALVADOR CERVANTES
--- NOTE | 2023-05-14 23:49 | XR_ITS ---
The [address] [address] Patient Name: BETH DONOVAN MRN: [id number] date: 1955 Sex: F Assigned Patient Location: ER Current Patient Location: ER Accession/Order Number: [id number] Exam Date: 05/14/2023 00:20 Report Date: 05/15/2023 00:38 At the request of: OLGA ADAMS Procedure: XR chest 1V EXAM: XR chest 1V HISTORY: The patient is a 68-year-old female with chest pain COMPARISON: None. FINDINGS: The lungs are underinflated but clear with no confluent airspace infiltrates, pleural effusions, or pneumothoraces. Cardiac silhouette is at the upper limit of normal. There is no radiographic evidence of sanjuana pulmonary edema. The trachea is midline. XR/XR chest 1V IMPRESSION: No acute cardiopulmonary abnormalities. Electronically authenticated by: GAIL HOLBROOK Date: 05/15/2023 00:38
--- NOTE | 2023-05-14 23:51 | CT_ITS ---
The [address] [address] Patient Name: BETH DONOVAN MRN: [id number] date: 1955 Sex: F Assigned Patient Location: ER Current Patient Location: ER Accession/Order Number: [id number] Exam Date: 05/14/2023 23:59 Report Date: 05/15/2023 01:31 At the request of: OLGA ADAMS Procedure: CT abdomen pelvis w con CT ABDOMEN AND PELVIS WITH CONTRAST: INDICATION: epigastric pain. COMPARISON: 06/29/2022. TECHNIQUE:Multiple thin section transaxial slices were acquired through the abdomen and pelvis with intravenous contrast. Coronal and sagittal reconstructed images were reviewed. Oral contrastWas not administered. FINDINGS: LOWER CHEST: Chronic interstitial airspace densities are present in the lung bases. LIVER: The liver is unremarkable. GALLBLADDER AND BILIARY SYSTEM: No obvious ductal dilation. There Is a tiny hyperdensity in the gallbladder neck which may represent a tiny stone. However, there is faint pericholecystic edema. SPLEEN: The spleen is unremarkable. PANCREAS: The pancreas is unremarkable. ADRENAL GLANDS: The adrenal glands are unremarkable. KIDNEYS AND URETERS: There is no hydronephrosis of the kidneys.There is a simple cyst in the upper right kidney measuring 1.5 cm. The ureters are within normal limits without obstructing urologic calcifications. VASCULATURE: No aneurysm of the abdominal aorta. PERITONEUM/RETROPERITONEUM: Peritoneum/retroperitoneum is unremarkable. LYMPH NODES: No suspicious lymphadenopathy. GASTROINTESTINAL TRACT: The bowel is normal in caliber.There are no acute inflammatory changes of the bowel.The appendix is visualized and is not inflamed. BLADDER: The urinary bladder is unremarkable. REPRODUCTIVE SYSTEM: Reproductive system is unremarkable. BODY WALL: There is a tiny fat-containing umbilical hernia. BONES: There is mild degenerative disc disease in the lumbar spine. CT/CT abdomen pelvis w con IMPRESSION: There is some mild pericholecystic edema with a tiny hyperdensity near the gallbladder neck which may represent a small stone. Right upper quadrant sonography is recommended for further evaluation. Electronically authenticated by: MP KELLEY Date: 05/15/2023 01:31
[2023-05-14 23:58] VITALS: PULSE 69
[2023-05-15] VITALS (12 sets, daily range): BP systolic 131–170; BP diastolic 64–84; PULSE 69–84; RESP 16–22; TEMP 36.8–37.1; O2SAT 91–97; BMI 44.7
--- NOTE | 2023-05-15 | CONS_ITS ---
CONSULTATION DATE: 05/15/2023 REASON FOR CONSULTATION: Abdominal pain, cholelithiasis. HISTORY OF PRESENT ILLNESS: Patient is a 68-year-old female with history of type 2 diabetes, hypothyroidism, hypercholesterolemia, obstructive sleep apnea, bipolar 1 disorder, obesity, who presented to the emergency room early this morning with upper abdominal pain. She initially described it as an epigastric burning pain, radiating into the chest and right upper quadrant. It began approximately 7:30 last even, was persistent. She did have several episodes of nausea and vomiting that just did not look like that she had eaten. No bowel changes. No fevers. She denies any history of similar type pain. Does have a long history of reflux and she has been on omeprazole b.i.d. for several years. She does report that she had a fatty meal earlier in the day and then at a bag of microwave popcorn; shortly after that, developed the symptoms. On emergency room evaluation, she was found to have mild leukocytosis, normal liver function tests. She underwent a CT scan which revealed evidence of some mild pericholecystic edema. I then recommended ultrasound. Ultrasound was performed which revealed a 2.5 mm stone in the neck of the gallbladder. No sonographic Tapia?s sign. No pericholecystic fluid or gallbladder wall thickening. There was noted to be hepatomegaly. Common bile duct was normal at 4.4 mm. Patient continued to have pain despite morphine and several doses of fentanyl. Because of her persistent pain, she was admitted for observation. Patient denies any history of fatty food intolerance or similar types of pain. Her only abdominal surgery has been a remote right inguinal hernia as an . She denies aspirin, nonsteroidal anti-inflammatory drug use. There is no history of pancreatitis or jaundice. No family history of GI malignancy or inflammatory bowel disease. She denies alcohol use or tobacco use. She is a former smoker. ALLERGIES: Patient has no known drug allergies. MEDICATIONS: Her home medications include levothyroxine, lorazepam, metformin, omeprazole, risperidone, simvastatin and venlafaxine. PAST SURGICAL HISTORY: As noted in the HPI. SOCIAL HISTORY: Patient is . She denies alcohol. She is a former smoker. Denies illicit drug use. FAMILY HISTORY: Noncontributory. REVIEW OF SYSTEMS: Ten system review of systems is negative for recent weight loss or weight gain. She denies increased fatigue or light-headedness. Has had no earache or tinnitus. No sinus congestion. No sore throat or hoarseness. Some pain radiating into the chest and right upper quadrant. No palpitations. No syncope. No chronic cough, shortness of breath or hemoptysis. She has had the abdominal pain, nausea and vomiting which have now resolved. No diarrhea, constipation or decreased caliber of the stool. No melena, hematochezia or bright red blood per rectum. No dysuria, frequency, urgency or hematuria. No headaches, seizures or tremors. No easy bruising or bleeding. No heat or cold intolerance. No polydipsia, polyphagia or polyuria. PHYSICAL EXAM: VITAL SIGNS: Patient?s vital signs are stable. Blood pressure is 131/77. Pulse is 71 and regular. Respiratory rate is 18. She is afebrile. O2 saturation is 91% on room air. GENERAL: In general, she is an obese female, in no acute distress. HEENT: Normocephalic, atraumatic. Sclerae anicteric. Conjunctiva are not injected. Oral mucosa is moist without lesions. NECK: Supple. There is no adenopathy, thyromegaly or JVD. LUNGS: Clear bilaterally. CARDIAC EXAM: Regular rhythm and rate without appreciable murmurs, rubs or gallops. ABDOMEN: Obese, soft. There are positive bowel sounds. There is mild epigastric and right upper quadrant tenderness without peritoneal signs. No masses. No hepatosplenomegaly. No hernias. No CVA tenderness. SKIN: Warm and dry without lesions, rashes or ulcers. NEURO EXAM: Non-focal. Non-lateralizing. Patient is awake, alert, oriented with appropriate affect. Laboratory evaluation, CT and ultrasound images were personally reviewed. ASSESSMENT: A 68-year-old female with upper abdominal pain, overall most likely consistent with a severe episode of biliary colic, as well as possible exacerbation of gastroesophageal reflux disease. PLAN: Currently, there is no evidence of acute cholecystitis; however, Dr. Harp has ordered a HIDA scan, which they are coming to take the patient down for right now. So, we will have more information later today. Patient has already been started on the antibiotics, pain control and her pain has improved. I would recommend supportive care. If her pain persists or she does have evidence of obstruction of the gallbladder, would likely proceed with cholecystectomy tomorrow. Indications, risks, benefits, alternatives of proceeding with laparoscopic cholecystectomy were explained extensively to the patient, including the risks of bleeding, infection, bile duct injury, bowel injury, need for intraoperative cholangiogram, postoperative ERCP or open procedure. All of her questions were answered. Informed consent was obtained. We will make her NPO after midnight in case she will require surgery tomorrow. Thank you for allowing me to participate in her care. I would be happy to follow with you during her hospital course. CC: Bello Hilton M.D. ORESTES
[2023-05-15 00:05] LABS: Basophils Absolute Auto 0.1 10^3/uL (0.0-0.1); Basophils Percent Auto 0.5 % (0.2-2.0); Eosinophils Absolute Auto 0.1 10^3/uL (0.0-0.7); Eosinophils Percent Auto 0.7 % (0.9-7.0); Hematocrit 36.2 % (36.0-48.0); Hemoglobin 11.7 g/dL (12.0-16.0); Immature Granulocytes Abs Auto 0.09 10^3/uL (0.00-0.03); Immature Granulocytes Pct Auto 0.7 % (0.0-0.5); Lymphocytes Absolute Auto 1.8 10^3/uL (1.2-3.8); Lymphocytes Percent Auto 14.7 % (20.5-60.0); Mean Corpuscular HGB Conc 32.3 g/dL (29.9-35.2); Mean Corpuscular Hemoglobin 29.5 pg (26.7-34.0); Mean Corpuscular Volume 91.2 fL (81.0-99.0); Mean Platelet Volume 9.7 fL (9.5-13.5); Monocytes Absolute Auto 0.8 10^3/uL (0.3-0.8); Monocytes Percent Auto 6.4 % (1.7-12.0); Neutrophils Absolute Auto 9.5 10^3/uL (1.4-6.5); Platelet Count 317 10^3/uL (150-450); Red Blood Count 3.97 10^6/uL (4.20-5.40); Red Cell Distribution Width 12.6 % (11.0-15.0); White Blood Count 12.3 10^3/uL (4.0-11.0)
[2023-05-15] MEDS: lidocaine HCL 15 ML, MAG HYDROX/ALUMINUM HYD/SIMETH 30 ML, HYOSCYAMINE SULFATE 0.25 MG PO (00:08)
[2023-05-15 00:32] LABS: Alanine Aminotransferase 24 U/L (14-59); Albumin Level 3.6 g/dL (3.4-5.0); Alkaline Phosphatase 85 U/L (46-116); Anion Gap 12.3; Aspartate Amino Transferase 14 U/L (15-37); BUN Creatinine Ratio 16.9; Bilirubin Total 0.4 mg/dL (0.2-1.0); Calcium 8.8 mg/dL (8.5-10.1); Carbon Dioxide 27.8 mmol/L (21.0-32.0); Chloride 102 mmol/L (98-107); Estimated GFR (African America >60 (>=60); Estimated GFR (Non-African Ame >60 (>=60); Globulin 3.6 g/dL; Glucose 117 mg/dL (74-106); Potassium 4.1 mmol/L (3.5-5.1); Sodium 138 mmol/L (136-145); Total Protein 7.2 g/dL (6.4-8.2)
[2023-05-15] MEDS: MORPHINE SULFATE 4 MG/ML VIAL IV (01:13)
--- NOTE | 2023-05-15 01:43 | US_ITS ---
The [address] [address] Patient Name: BETH DONOVAN MRN: [id number] date: 1955 Sex: F Assigned Patient Location: ER Current Patient Location: ER Accession/Order Number: [id number] Exam Date: 05/15/2023 01:55 Report Date: 05/15/2023 05:41 At the request of: OLGA ADAMS Procedure: US right upper quadrant EXAM: US right upper quadrant HISTORY: cholecystitis COMPARISON: CT abdomen pelvis, 05/15/2023. TECHNIQUE: Sonographic images of the right upper quadrant were obtained in standard projections. FINDINGS: There is a shadowing 2.5 cm stone in the gallbladder neck. No gallbladder wall thickening or pericholecystic fluid is seen. The sonographic Tapia's sign is reported negative. The common bile duct is normal at 4.4 mm. The pancreas is moderately obscured by bowel gas, but is grossly unremarkable in its visualized portions. The liver is mildly enlarged, but is otherwise unremarkable. Normal hepatopedal flow is documented. The right kidney appears normal and measures 10.7 x 4.8 x 4.8 cm with a normal cortical thickness of 1.1 cm. No free fluid is seen. US/US right upper quadrant IMPRESSION: 1. Large 2.5 cm stone in the gallbladder neck. No sonographic findings of cholecystitis. 2. Hepatomegaly. Electronically authenticated by: STEPHY BOYD Date: 05/15/2023 05:41
--- NOTE | 2023-05-15 02:51 | PC.NURSE ---
US at cart side.
[2023-05-15] MEDS: FENTANYL CITRATE/PF 100 MCG/2 ML VIAL IV ×2 (03:26→05:49)
--- OUTSIDE RECORDS SUMMARY | 2023-05-15 07:42 | XMS_ITS | CCD ---
Author Name Unknown Address [address] [place] [address] Organization [facility] Care Team Providers Care Staff Electrical Engineer Name Role Phone Ronnie Murphy Unavailable Unavailable [...] weekly for 30 days E11.65 Rx Bin [id number], Group: [id number], PCN 3F, ID: [id number] Sep, Active Mounjaro 2.5 MG/ 0.5ML as directed Subcutaneous weekly for 30 days E11 Rx Bin [id number], Group: [id number], PCN 3F, ID: [id number]-- NOT covered Not-Taking Mounjaro 2.5 MG/ 0.5ML as directed Subcutaneous weekly for 30 days E11 Rx Bin [id number], Group: [id number], PCN 3F, ID: [id number]-- NOT covered Active Cholecalciferol (14 sources) Vitamin D Vitamin D3 1.25 MG (54730 UT) TAKE 1 CAPSULE BY MOUTH WEEKLY FOR 56 DAYS for 56 Not-Taking/PRN take 1 capsule by mouth once rishi ly Cholecalciferol 1.25 MG (29879 UT) 1 capsule Orally weekly for 56 [...] 30 mg oral tablet (12 sources) Uncompetitive Q-rmrfcd-D-aspartat e Receptor Antagonist, Sigma-1 Agonist Start: 04-20-2020 take 1 tablet by mouth every six hours [place] DMT 30-30 MG 1 tablet Orally every [...] weekly for 30 days E11.65 Rx Bin [id number], Group: [id number], PCN 3F, ID: [id number]-- NOT covered Not-Taking/PRN 0.25 mg, 0.5 mg [...] Onset: 3 Chronic Other aftercare (1 source) 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 Vivian Fall Glucose [Mass/Vol] 120 mg/dL Normal [facility] Comment on above: Performed By: #### P TT, PT #### [facility] [address] [place] [address] Dr. Vivian Fall HbA1c (Bld) [Mass fraction] 5.8 % Normal 4.5-6.2 [facility] Comment on above: Performed By: #### P TT, PT #### [facility] [address] [place] [address] Dr. Vivian Fall LIPID PROFILEon 09-02-2022 CHOL-HDL RATIO NORM SEE BELOW Normal [facility] Comment on above: Result Comment: 3.3 - 4.4 LOW RISK 4.4 - 7.1 AVERAGE RISK 7.1 - 11.0 MODERATE RISK >11.0 HIGH RISK Performed By: #### P TT, PT #### [facility] [address] [place] [address] Dr. Vivian Fall Cholesterol [Mass/Vol] 171 mg/dL Normal <=200 [facility] Comment on above: Performed By: #### P TT, PT #### [facility] [address] [place] [address] Dr. Vivian Fall Cholesterol in HDL [Mass/Vol] 52 mg/dL Normal 40-60 [facility] Comment on above: Performed By: #### P TT, PT #### [facility] [address] [address] [address] Vivian Fall Cholesterol in LDL [Mass/Vol] 89.8 mg/dL Normal [facility] Comment on above: Performed By: #### P TT, PT #### [facility] [address] [place] [address] Dr. Vivian Fall Cholesterol.total/ Cholesterol in HDL [Mass ratio] 3.3 {ratio} Normal [facility] Comment on above: Performed By: #### P TT, PT #### [facility] [address] [place] [address] Dr. Vivian Fall HDL NORMAL > or = 60 mg/dl - LO W CARDIOVASCULAR RISK <40 mg/dl - HIGH CARDIOVASCULAR RISK Normal [facility] Comment on above: Performed By: #### P TT, PT #### [facility] [address] [place] [address] Dr. Vivian Fall LDL CALC NORMAL SEE BELOW Normal [facility] Comment on above: Result Comment: <100 mg/dl OPTIMAL 100 - 129 mg/dl NEAR OR ABOVE OPTIMAL 130 - 159 mg/dl BORDERLINE HIGH 160 - 189 mg/dl HIGH >190 mg/dl VERY HIGH Performed By: #### P TT, PT #### [facility] [address] [place] [address] Dr. Vivian Fall Triglyceride [Mass/Vol] 146 mg/dL Normal <=150 [facility] Comment on above: Performed By: #### P TT, PT #### [facility] [address] [place] [address] Dr. Vivian Fall VLDL CALC 29.2 mg/dL Normal [facility] Comment on above: Performed By: #### P TT, PT #### [facility] [address] [place] [address] Dr. Vivian Fall PROF 14(COMP METB)on 023 Albumin [Mass/Vol] 3.6 g/dL Normal 3.4-5.0 [facility] Comment on above: Performed By: #### C MP, LIPID #### [facility] [address] [place] [address] Dr. Vivian Fall Albumin/Globulin [Mass ratio] 0.9 {ratio} Normal [facility] Comment on above: Performed By: #### C MP, LIPID #### [facility] [address] [place] [address] Dr. Vivian Fall ALP [Catalytic activity/Vol] 81 U/L Normal 46-116 [facility] Comment on above: Performed By: #### C MP, LIPID #### [facility] [address] [place] [address] Dr. Vivian Fall ALT [Catalytic activity/Vol] 22 U/L Normal 14-59 [facility] Comment on above: Performed By: #### C MP, LIPID #### [facility] [address] [place] [address] Dr. Vivian Fall Anion gap [Moles/Vol] 12.5 mmol/L Normal [facility] Comment on above: Performed By: #### C MP, LIPID #### [facility] [address] [place] [address] Dr. Vivian Fall AST [Catalytic activity/Vol] 15 U/L Normal 15-37 [facility] Comment on above: Performed By: #### C MP, LIPID #### [facility] [address] [place] [address] Dr. Vivian Fall Bilirubin [Mass/Vol] 0.6 mg/dL Normal 0.2-1.0 [facility] Comment on above: Performed By: #### C MP, LIPID #### [facility] [address] [place] [address] Dr. Vivian Fall Calcium [Mass/Vol] 9.1 mg/dL Normal 8.5-10.1 [facility] Comment on above: Performed By: #### C MP, LIPID #### [facility] [address] [place] [address] Dr. Vivian Fall Chloride [Moles/Vol] 103 mmol/L Normal 98-107 [facility] Comment on above: Performed By: #### C MP, LIPID #### [facility] [address] [place] [address] Dr. Vivian Fall CO2 [Moles/Vol] 27.6 mmol/L Normal 21.0-32.0 [facility] Comment on above: Performed By: #### C MP, LIPID #### [facility] [address] [place] [address] Dr. Vivian Fall Creatinine [Mass/Vol] 0.78 mg/dL Normal 0.55-1.02 [facility] Comment on above: Performed By: #### C MP, LIPID #### [facility] [address] [place] [address] Dr. Vivian Fall EGFR-AF TRINIDADIAN >60 Normal >=60 [facility] Comment on above: Performed By: #### C MP, LIPID #### [facility] [address] [place] [address] Dr. Vivian Fall EGFR-NON AF TRINIDADIAN >60 Normal >=60 [facility] Comment on above: Performed By: #### C MP, LIPID #### [facility] [address] [place] [address] Dr. Vivian Fall Globulin (S) [Mass/Vol] 3.8 g/dL Normal [facility] Comment on above: Performed By: #### C MP, LIPID #### [facility] [address] [place] [address] Dr. Vivian Fall Glucose [Mass/Vol] 105 mg/dL Normal 74-106 [facility] Comment on above: Performed By: #### C MP, LIPID #### [facility] [address] [place] [address] Dr. Vivian Fall Potassium [Moles/Vol] 4.1 mmol/L Normal 3.5-5.1 [facility] Comment on above: Performed By: #### C MP, LIPID #### [facility] [address] [place] [address] Dr. Vivian Fall Protein [Mass/Vol] 7.4 g/dL Normal 6.4-8.2 [facility] Comment on above: Performed By: #### C MP, LIPID #### [facility] [address] [place] [address] Dr. Vivian Fall Sodium [Moles/Vol] 139 mmol/L Normal 136-145 [facility] Comment on above: Performed By: #### C MP, LIPID #### [facility] [address] [place] [address] Dr. Vivian Fall Urea nitrogen [Mass/Vol] 11.0 mg/dL Normal 7.0-18.0 [facility] Comment on above: Performed By: #### C MP, LIPID #### [facility] [address] [place] [address] Dr. Vivian Fall Urea nitrogen/Creatinin e [Mass ratio] 14.1 mg/mg Normal [facility] Comment on above: Performed By: #### C MP, LIPID #### [facility] [address] [place] [address] Dr. Vivian Fall VITAMIN B12on 09-02-2022 Cobalamin (Vitamin B12) [Mass/Vol] 373.0 pg/mL Normal 193.0-986.0 [facility] Comment on above: Performed By: #### P TT, PT #### [facility] [address] [place] [address] Dr. Vivian Fall VITAMIN D 25 OHon 09-02-2022 VIT D 25-OH 16.1 ng/mL Normal [facility] Comment on above: Performed By: #### P TT, PT #### [facility] [address] [place] [address] Dr. Vivian Fall VIT D RANGES SEE BELOW Normal [facility] Comment on above: Result Comment: <20 ng/mL Vit D deficient 20 - <30 ng/mL Vit D insufficient 30 - 100 ng/mL Vit D sufficient >100 ng/mL Potential Toxicity Performed By: #### P TT, PT #### [facility] [address] [place] [address] Dr. Vivian Fall BNPon 06-29-2022 Natriuretic peptide B (Bld) [Mass/Vol] 223.0 pg/mL Normal <=900.0 [facility] Comment on above: Performed By: #### C MP, HSTROPN, BNP #### [facility] [address] [place] [address] Dr. Vivian Fall CBC AUTO DIFFon 06-29-2022 BASO # 0.0 103/ul Normal 0.0-0.1 [facility] Comment on above: Performed By: #### C BC #### [facility] [address] [place] [address] Dr. Vivian Fall Basophils/100 WBC (Bld) 0.2 % Normal 0.2-2.0 [facility] Comment on above: Performed By: #### C BC #### [facility] [address] [place] [address] Dr. Vivian Fall EO # 0.0 103/ul Normal 0.0-0.7 [facility] Comment on above: Performed By: #### C BC #### [facility] [address] [place] [address] Dr. Vivian Fall Eosinophils/100 WBC (Bld) 0.0 % Critically low 0.9-7.0 [facility] Comment on above: Performed By: #### C BC #### [facility] [address] [place] [address] Dr. Vivian Fall Erythrocyte distribution width (RBC) [Ratio] 13.0 % Normal 11.0-15.0 [facility] Comment on above: Performed By: #### C BC #### [facility] [address] [place] [address] Dr. Vivian Fall Hematocrit (Bld) [Volume fraction] 36.2 % Normal 36.0-48.0 [facility] Comment on above: Performed By: #### C BC #### [facility] [address] [place] [address] Dr. Vivian Fall Hemoglobin (Bld) [Mass/Vol] 12.2 g/dL Normal 12.0-16.0 [facility] Comment on above: Performed By: #### C BC #### [facility] [address] [place] [address] Dr. Vivian Fall IG # 0.08 10e3/ul Critically high 0.00-0.03 [facility] Comment on above: Performed By: #### C BC #### [facility] [address] [address] [address] Vivian Fall IG % 1.3 % Critically high 0.0-0.5 [facility] Comment on above: Performed By: #### C BC #### [facility] [address] [place] [address] Dr. Vivian Fall LYMPH # 0.3 103/ul Critically low 1.2-3.8 [facility] Comment on above: Performed By: #### C BC #### [facility] [address] [place] [address] Dr. Vivian Fall Lymphocytes/100 WBC (Bld) 4.2 % Critically low 20.5-60.0 [facility] Comment on above: Performed By: #### C BC #### [facility] [address] [place] [address] Dr. Vivian Fall MANUAL DIFF REQ NO Normal [facility] Comment on above: Performed By: #### C BC #### [facility] [address] [place] [address] Dr. Vivian Fall MCH (RBC) [Entitic mass] 29.2 pg Normal 26.7-34.0 [facility] Comment on above: Performed By: #### C BC #### [facility] [address] [place] [address] Dr. Vivian Fall MCHC (RBC) [Mass/Vol] 33.7 g/dL Normal 29.9-35.2 [facility] Comment on above: Performed By: #### C BC #### [facility] [address] [place] [address] Dr. Vivian Fall MCV (RBC) [Entitic vol] 86.6 fL Normal 81.0-99.0 [facility] Comment on above: Performed By: #### C BC #### [facility] [address] [place] [address] Dr. Vivian Fall MONO # 0.2 103/ul Critically low 0.3-0.8 [facility] Comment on above: Performed By: #### C BC #### [facility] [address] [place] [address] Dr. Vivian Fall Monocytes/100 WBC (Bld) 3.5 % Normal 1.7-12.0 [facility] Comment on above: Performed By: #### C BC #### [facility] [address] [place] [address] Dr. Vivian Fall NEUT # 5.7 103/ul Normal 1.4-6.5 [facility] Comment on above: Performed By: #### C BC #### [facility] [address] [place] [address] Dr. Vivian Fall Neutrophils/100 WBC (Bld) 90.8 % Critically high 43.0-75.0 [facility] Comment on above: Performed By: #### C BC #### [facility] [address] [place] [address] Dr. Vivian Fall Platelet mean volume (Bld) [Entitic vol] 9.8 fL Normal 9.5-13.5 [facility] Comment on above: Performed By: #### C BC #### [facility] [address] [place] [address] Dr. Vivian Fall PLT 224 103/ul Normal 150-450 [facility] Comment on above: Performed By: #### C BC #### [facility] [address] [place] [address] Dr. Vivian Fall RBC 4.18 106/ul Critically low 4.20-5.40 [facility] Comment on above: Performed By: #### C BC #### [facility] [address] [place] [address] Dr. Vivian Fall WBC 6.3 103/ul Normal 4.0-11.0 [facility] Comment on above: Performed By: #### C BC #### [facility] [address] [place] [address] ABD/PELVIS WO CONon [...] ANASTACIO BARBOZA Date: 2022-06-29 11:26 Normal [facility] CULTURE BLOODon 06-29-2022 Microscopic examination of blood, culture Culture Observations: NO GROWTH AT 5 DAYS. Isolate 1 BC_BA_NA Normal [facility] Comment on above: Performed By: #### P TT, PT #### [facility] [address] [place] [address] Dr. Vivian Fall Microscopic examination of blood, culture Culture Observations: NO GROWTH AT 5 DAYS. Isolate 1 BC_BA_NA Normal [facility] Comment on above: Performed By: #### P TT, PT #### [facility] [address] [place] [address] Dr. Vivian Fall CULTURE URINEon 06-29-2022 CULTURE URINE Culture Observations : NO GROWTH. Normal [facility] Comment on above: Performed By: #### P TT, PT #### [facility] [address] [place] [address] Dr. Vivian Fall Covid-19 PCR (CVDTBH)on 06-03 SARS-CoV-2 (COVID-19) RNA JONY+probe Ql (Unsp spec) Not detected Normal NOT DETECTED [facility] Comment on above: Result Comment: When [...] for this test is supported by the Baggage [employer] Agent of Health and Human Service's declaration that [...] used). Performed By: #### C VDTBH #### [facility] [address] [place] [address] Dr. Vivian Fall ER URINE PROFILEon 3 Bilirubin Ql (U) SMALL Abnormal NEGATIVE [facility] Comment on above: Performed By: #### P TT, PT #### [facility] [address] [place] [address] Dr. Vivian Fall Clarity (U) CLEAR Normal CLEAR [facility] Comment on above: Performed By: #### P TT, PT #### [facility] [address] [address] [address] Vivian Fall Color (U) DK. YELLOW Normal YELLOW [facility] Comment on above: Performed By: #### P TT, PT #### [facility] [address] [place] [address] Dr. Vivian LANGE A micrscopic examina tion will be performed if indicated. Normal [facility] Comment on above: Performed By: #### P TT, PT #### [facility] [address] [place] [address] Dr. Vivian Fall Glucose Ql (U) Negative Normal NEGATIVE [facility] Comment on above: Performed By: #### P TT, PT #### [facility] [address] [place] [address] Dr. Vivian Fall Hemoglobin Ql (U) TRACE-INTACT Abnormal NEGATIVE [facility] Comment on above: Performed By: #### P TT, PT #### [facility] [address] [place] [address] Dr. Vivian Fall Ketones Ql (U) Negative Normal NEGATIVE [facility] Comment on above: Performed By: #### P TT, PT #### [facility] [address] [place] [address] Dr. Vivian Fall LEUKOCYTES Negative Normal NEGATIVE [facility] Comment on above: Performed By: #### P TT, PT #### [facility] [address] [place] [address] Dr. Vivian Fall Nitrite Ql (U) Negative Normal NEGATIVE [facility] Comment on above: Performed By: #### P TT, PT #### [facility] [address] [place] [address] Dr. Vivian Fall pH (U) 6.0 [pH] Normal 5-9 [facility] Comment on above: Performed By: #### P TT, PT #### [facility] [address] [place] [address] Dr. Vivian Fall Protein (U) [Mass/Vol] 100 mg/dL Abnormal NEGATIVE/ TRACE [facility] Comment on above: Performed By: #### P TT, PT #### [facility] [address] [place] [address] Dr. Vivian Fall SPEC GRAVITY >=1.030 Abnormal 1.005-<=1.02 5 [facility] Comment on above: Performed By: #### P TT, PT #### [facility] [address] [place] [address] Dr. Vivian Fall UR MICRO IND INDICATED Normal [facility] Comment on above: Performed By: #### P TT, PT #### [facility] [address] [place] [address] Dr. Vivian Fall Urobilinogen Qn (U) 1.0 {Nia'U}/dL Normal 0.2 - 1.0 [facility] Comment on above: Performed By: #### P TT, PT #### [facility] [address] [place] [address] Dr. Vivian Fall LACTATE/LACTIC ACIDon 2022 Lactate [Moles/Vol] 1.3 mmol/L Normal 0.4-1.9 [facility] Comment on above: Performed By: #### L ACT #### [facility] [address] [place] [address] Dr. Vivian Fall Lactate [Moles/Vol] 3.1 mmol/L Critically high 0.4-1.9 [facility] Comment on above: Performed By: #### L ACT #### [facility] [address] [place] [address] Dr. Vivian Fall LIPASEon 06-29-2022 Lipase [Catalytic activity/Vol] 88.0 U/L Normal 73.0-393.0 [facility] Comment on above: Performed By: #### L IPA #### [facility] [address] [place] [address] Dr. Vivian Fall PROF 14(COMP METB)on 023 Albumin [Mass/Vol] 3.4 g/dL Normal 3.4-5.0 [facility] Comment on above: Performed By: #### C MP, HSTROPN, BNP #### [facility] [address] [place] [address] Dr. Vivian Fall Albumin/Globulin [Mass ratio] 0.9 {ratio} Normal [facility] Comment on above: Performed By: #### C MP, HSTROPN, BNP #### [facility] [address] [place] [address] Dr. Vivian Fall ALP [Catalytic activity/Vol] 145 U/L Critically high 46-116 [facility] Comment on above: Performed By: #### C MP, HSTROPN, BNP #### [facility] [address] [place] [address] Dr. Vivian Fall ALT [Catalytic activity/Vol] 454 U/L Critically high 14-59 [facility] Comment on above: Performed By: #### C MP, HSTROPN, BNP #### [facility] [address] [place] [address] Dr. Vivian Fall Anion gap [Moles/Vol] 15.7 mmol/L Normal [facility] Comment on above: Performed By: #### C MP, HSTROPN, BNP #### [facility] [address] [place] [address] Dr. Vivian Fall AST [Catalytic activity/Vol] 404 U/L Critically high 15-37 [facility] Comment on above: Performed By: #### C MP, HSTROPN, BNP #### [facility] [address] [place] [address] Dr. Vivian Fall Bilirubin [Mass/Vol] 1.4 mg/dL Critically high 0.2-1.0 [facility] Comment on above: Performed By: #### C MP, HSTROPN, BNP #### [facility] [address] [place] [address] Dr. Vivian Fall Calcium [Mass/Vol] 8.7 mg/dL Normal 8.5-10.1 [facility] Comment on above: Performed By: #### C MP, HSTROPN, BNP #### [facility] [address] [address] [address] Vivian Fall Chloride [Moles/Vol] 94 mmol/L Critically low 98-107 [facility] Comment on above: Performed By: #### C MP, HSTROPN, BNP #### [facility] [address] [place] [address] Dr. Vivian Fall CO2 [Moles/Vol] 22.0 mmol/L Normal 21.0-32.0 [facility] Comment on above: Performed By: #### C MP, HSTROPN, BNP #### [facility] [address] [place] [address] Dr. Vivian Fall Creatinine [Mass/Vol] 1.30 mg/dL Critically high 0.55-1.02 [facility] Comment on above: Performed By: #### C MP, HSTROPN, BNP #### [facility] [address] [place] [address] Dr. Vivian Fall EGFR-AF TRINIDADIAN 50 mL/min/1.73m2 Critically low >=60 [facility] Comment on above: Performed By: #### C MP, HSTROPN, BNP #### [facility] [address] [place] [address] Dr. Vivian Fall EGFR-NON AF TRINIDADIAN 41 mL/min/1.73m2 Critically low >=60 [facility] Comment on above: Performed By: #### C MP, HSTROPN, BNP #### [facility] [address] [place] [address] Dr. Vivian Fall Globulin (S) [Mass/Vol] 3.7 g/dL Normal [facility] Comment on above: Performed By: #### C MP, HSTROPN, BNP #### [facility] [address] [place] [address] Dr. Vivian Fall Glucose [Mass/Vol] 166 mg/dL Critically high 74-106 [facility] Comment on above: Performed By: #### C VERONIKA HSTROPN, BNP #### [facility] [address] [address] [address] Vivian Fall Potassium [Moles/Vol] 3.7 mmol/L Normal 3.5-5.1 [facility] Comment on above: Performed By: #### C VERONIKA HSTROPN, BNP #### [facility] [address] [address] [address] Vivian Fall Protein [Mass/Vol] 7.1 g/dL Normal 6.4-8.2 [facility] Comment on above: Performed By: #### C VERONIKA HSTROPN, BNP #### [facility] [address] [place] [address] Dr. Vivian Fall Sodium [Moles/Vol] 128 mmol/L Critically low 136-145 [facility] Comment on above: Performed By: #### C VERONIKA, HSTROPN, BNP #### [facility] [address] [address] [address] Vivian Fall Urea nitrogen [Mass/Vol] 15.0 mg/dL Normal 7.0-18.0 [facility] Comment on above: Performed By: #### C VERONIKA HSTROPN, BNP #### [facility] [address] [place] [address] Dr. Vivian Fall Urea nitrogen/Creatinin e [Mass ratio] 11.5 mg/mg Normal [facility] Comment on above: Performed By: #### C MP, HSTROPN, BNP #### [facility] [address] [place] [address] Dr. Vivian Fall PROTIMEon 06-29-2022 INR Coag (PPP) [Relative time] 1.08 {INR} [facility] Comment on above: Performed By: #### P TT, PT #### [facility] [address] [place] [address] Dr. Vivian Fall INR GUIDELINES SEE BELOW Normal [facility] Comment on above: Result Comment: DEEJAY RED INR: 2.0 - 3.0 CONDITIONS NOT LISTED BELOW 2.5 - 3.5 FOR PROSTHETIC HEART VALVE REPLACEMENT 2.5 - 3.5 RECURRENT THROMBOSIS Performed By: #### P TT, PT #### [facility] [address] [place] [address] Dr. Vivian Fall PT Coag (PPP) [Time] 11.4 s Normal 9.0-11.6 [facility] Comment on above: Performed By: #### P TT, PT #### [facility] [address] [place] [address] Dr. Vivian Fall PTTon 06-29-2022 aPTT Coag (Bld) [Time] 32.2 s Normal 22.3-36.2 [facility] Comment on above: Performed By: #### P TT, PT #### [facility] [address] [place] [address] Dr. Vivian Fall TROPONIN, HIGH SENSITIVITYon 06-29-2022 HSTROP 5.8 pg/mL Normal 4.0-51.3 [facility] Comment on above: Result Comment: CUT- OFF POINTS HAVE BEEN ESTABLISHED BASED ON THE FOURTH UNIVERSAL DEFINITIONS OF MYOCARDIAL INFARCTION. THE UPPER REFERENCE LIMIT (URL) OF TROPONIN, DEFINED THE 99TH PERCENTILE OF cTnI DISTRIBUTION IN A REFERENCE POPULATION, HAS BEEN CONFIRMED THE DECISION THRESHOLD FOR [place] DIAGNOSIS. Performed By: #### C MP, HSTROPN, BNP #### [facility] [address] [place] [address] Dr. Vivian Fall URINE MICROSCOPIC ONLYon BACTERIA SMALL Abnormal NONE SEEN [facility] Comment on above: Performed By: #### P TT, PT #### [facility] [address] [place] [address] Dr. Vivian Fall Bacteria identified Cx Nom (U) INDICATED Normal [facility] Comment on above: Performed By: #### P TT, PT #### [facility] [address] [place] [address] Dr. Vivian Fall CAST NONE SEEN Normal NONE SEEN [facility] Comment on above: Performed By: #### P TT, PT #### [facility] [address] [place] [address] Dr. Vivian Fall Crystals LM Nom (Urine sed) NONE SEEN Normal NONE SEEN [facility] Comment on above: Performed By: #### P TT, PT #### [facility] [address] [place] [address] Dr. Vivian Fall Epithelial cells LM Ql (Urine sed) FEW Abnormal NONE SEEN /RARE [facility] Comment on above: Performed By: #### P TT, PT #### [facility] [address] [place] [address] Dr. Vivian Fall MUCOUS SMALL Abnormal NONE SEEN [facility] Comment on above: Performed By: #### P TT, PT #### [facility] [address] [place] [address] Dr. Vivian Fall RBC 0-2 Normal 0-2 [facility] Comment on above: Performed By: #### P TT, PT #### [facility] [address] [place] [address] Dr. Vivian Fall WBC 0-2 Abnormal NONE SEEN [facility] Comment on above: Performed By: #### P TT, PT #### [facility] [address] [place] [address] Dr. Vivian Fall XR CHEST 1 Von 06-29-2022 XR CHEST 1 V EXAM: XR CHEST 1 V HISTORY: Altered mental status COMPARISON: None. TECHNIQUE: Frontal view of the chest. FINDINGS: No focal consolidations or pleural effusions. Cardiomegaly. Thoracic spine spondylosis. IMPRESSION: No acute disease. Cardiomegaly. Electronically authenticated by: ZEYAD SOFIA Date: 2022-06-29 10:38 Normal [facility] Office Visit (Cardiology)on 06-01-2022 Follow-up visit Diagnoses/Problems Assessed Abnormal echocardiogram (793.2) (R93.1) Never a smoker Hypothyroidism (244.9) (E03.9) Added by Problem List Migration; 2013-02-28; Moved to [facility] Mar 24 2013 9:03PM Hyperlipidemia (272.4) [...] Social H (more content not included)... Normal [facility] Tobacco Screening.on 023 Adult depression screening assessment No -[facility] [address] DO Work Phone: Fall risk assessment a) No falls within the last year [facility] [place] [address] DO Work Phone: Tobacco use status [facility] b) No [facility] [place] [address] DO Work Phone: ECHOCARDIO M/2D COMPLETEon 0 05-11-2022 ECHOCARDIO M/2D COMPLETE Patient: BETH DONOVAN Exam Date: 05/11/2022 : 1955 Gender:F Ordering : DR MIKALA SINGH Admission #: [id number] Family : Order #: [id number] CLICK HERE TO VIEW EXAM ECHOCARDIOGRAM REPORT [...] Alarcon M.D. on 05/13/2022 at 10:52 Normal [facility] MG MAMM SCREEN 3D ALFA CADon 05-11-2022 MG MAMM SCREEN 3D ALFA CAD Patient: BETH DONOVAN Exam Date: 05/11/2022 : 1955 Gender:F Ordering : DR MIKALA SINGH Admission #: [id number] Family : Order #: [id number] CLICK HERE TO VIEW EXAM RADIOLOGY REPORT [...] kidney cancer at age 52. LOCATION: [facility] BREAST COMPOSITION: Almost entirely fatty. FINDINGS: [...] M.D. on 05/11/2022 at 14:26 Normal [facility] Established Visit (Otolaryng ology)on 02-09-2022 Established [...] Recorded: 09Feb2022 03:01PM Height5 ft 4 in Ojvmzq395 lb BMI Ojncxvpodb59.35 kg/m2 BSA Calculated2.22 Tobacco Useb) No Falls [...] assessment c) Not medically indicated [facility] Work Phone: Tobacco use status CP b) No [facility] Work Phone: Coding Summary.on 05-18-2021 Coding Summary. CD:[id number] Gh0bWw +PGhlYWQ+ED3JIFGvR71ucWVtz C6RK9uULT7LJJUZLDSKIL1CBR1 prAS4KYotM0OcjhYx CpbrdSPzJS33WXq6NOV5yVqrFG cjbG6qyUIiT5g3OoMjXD09qU03 VRprYGSfCjO7KvHherkyqXWb A3anCkNsoBXqUiz+PHRhYmxlIH leFURqZWyiZFJqTmVzkNduOE7j Je0iHCFcMTBnrKsusDNdJyDq q5jyYXAgBErpEF6ezMbiQ3FtbR Q4ONIwv6m2Pn85pTU+PHRkIHN0 fIdqSMalt813BhEyz3ihGFH5 iWLqSEmgOTB7L10gx9H9IFQgSG EjOYM1iVT0bC6hbFecgojmS7Hl oEWgFtH1YIH0zONwsO0aeCpb qzkzlU4nYya+A60GYS8NYVGJEK 3PGqq6A5UcZkokpHE+WG36XHRw KL98jRXjiTJnd9yhwRq8SxTi VHKsRWG1rPmyGOhoh7OmEVEgF8 0kpLMjq4Q7RJQdeCcmvLJyDeZs oGF6fB1lJIjilppwk6wmvvlt Inwti6ffyk58pR45B75iIHttNU TjGRE8IDEjHJOohEukou2tfH4k Ii8+KDidz3amf2tekCq5VkUm KMSoyxRfiCfkPFB2h2OpAx18K3 NgoOrbg1FgEvg0qw30aCUaq5E6 eFG3BUafNABfoB0zSAqvZpQ5 QGJoLoXjeI06rIZbWXsfKj8xiE tllWmrUH7nWQRzsbwfYKEfcM7a POLcbSPudRdlDI2pZMBvfcqq f000LuAuVKM9IRAzcBZuS2UgaX 2jUiSlVJLnWNWeK8FnwYIyFPqa D933XZwzOhE0NJKdspNbL1Xg SACvpPveSxX9p5U2Nn6Zv1Bxgx ncEGV0ADlhLTMeVnL9BbCeWcV4 B8ZbVaz4IIBwhYlxEU3hH1Ay LFXnnxpjxfyjgVY8YTRiUKJtbK 44zVLzBJylCh4ph0Y6a821RBZr FSRjdZ14Zd7kkKcfJGOkgJBD uP2ypuejz5skyjwdJpAuADZeQB v1JFl4RTBsfVqhOzBuQXT0ZnV7 LFV3jQEjrR2efPhqipxdfQ3o Oyc+P57asE5jRRF9GRT4fsgtMH GglhMdVW48XH02O8LwMsviuNMp bGU+JOJdpvBunHmbAB8gRtRx p1qtl1UuLXuaT9VyJNJdAQtaSv d2AAQqVDL9gHZ4xE8nYINmRBun l2I9lAV9Z1DquhKbch9ub8yc QYFgJMovE57mgFWlx6Z7TFEpxZ P8KBDriTudUtLngY36Izh+PGNv bOqxa4OxAvqoq0idq8ttjFu9 WcDoKYYvsmTwfTyaFNU6m3OjMq 88W06kEQzpETAeRIWcNOVwTMFl sKqabx1qmY9uQx7+PGNvbCB3 pLV4fR2sNQEbDfB9OJxnR842Pq ItiWBgXaclc9cyh0jjbQj1GhXs QMDrcnDrdBiqVXN0i4MxMj60 J85tSJylJLVtYTTfDRPzQQEozG ersi6sxY5tKu2+JH1nq3tfkd07 xM25iIS+ONAwIHI0lDnmXCbf JQWhxO8cUDhpGfB9RZHeBjYxaS 66mNTrHSmsZp5ppTixeSmlKT3b JITugnyly442VdKcr2ywCGDl lNObVTgtBZJ7F99jd1R9RSZdPF UrYVT3qRB8zP7sbCvdbzxcmFMd nCjaxjHhbXlzKZshHIlnY137 IHRvcDsnPlBhdGllbnQgTmFtZT m4A3SzCmi4XNDpvSywSF7zhFYh WXhdLk2cnWbuiVzdWW1lEIMj ngouh675WiKyq4ivIOYvjDWuGZ jiLOB1F55id4J3MGVhLSAkYPB4 nKJ4tQ4sjNedadnvxXNlrVlt vkAzgNnrIEunTVzfI201NBVxrL tpDbTaatOwTICtbBW6AP85BF50 sLRtm4Q6rLD7J5XiWTQkowht epdhzCC4FDTwJAFheR06Uz5yvZ isMx6zQANjBVW0KSSuvGRfK3Fy vI0sPfKgXYChUZZyA3FigQQu RTbeK364KKbpFrL5XLHruyKoD5 RnOEOuxHweNfZ3r5A4Lx5WM6J9 VK79PC85pJUgg7H2uSA8D6Wr YOAgbnorochpaRO6FLMnTHOfzG 25Vj4suYbgLc9rNQOjRCK1KPAp dKTjJ5JmuC4zKxZpEHWePSOx I8FufBPcSHjfQ022XPmdAhX9PQ XtwcKqB1ZaMNUmlZqiBeV5n8M2 Gh1NOFo2II49CS94gELaq2V3 yOF8F4IlXJJxjdrhfztulGF1ES OiPUQceO98Pi9khXbgYt7rFBXs OQG0VPGkxGNrI9YsmN0aEqYl VOBiFRWgN3RccIMaNQrhV745MH iqGeO4AWSoruHcZ4DvXMJgnWiv DsM7a8Q7Lf2SFLViJB79QKW6 uHU1JV58MW33F7UyHqpxdDIowO U+PHRhYmxlIHdpZHRoPScxMDAl DeIbhZsgAR9nAw0aPZHkECSe iEtmpOTjRrGog7lvOWXhFSljYH 6rkYbxK7DckHC1GAMhn5o3Yk07 I14rK1LdxUN+BDFfiFU8iGV3 aZ7tJlUrZqB7PLmuW918ScWhyO JdNhhel0lep6rkkTl7TkI4YMXr bdZcuKodOYN0m8PmBl36R79l IHdpZHRoPSIxNSUiIHZhbGlnbj 0niZ4gPn6+JRVyaYG0aBE5yE0k IxBuOsK6RVpaJ731MvYofTZq Lgtts5vom6ynpRl9OhTfFSWxun MvxEumAZG8g5AkJg14Q1XqwVxu f2WoWlk3ud10mPZeo0T5vRR0 T1LqYCSajvaenXVqtEwvGP1iWW VfqwjtPBQqrR6nFCZtV1q9KqCa SzQ8RFpqJ0XonlN6XSWhsNHk XIcyADS4V04rm3D8RAExKEJyKF C0uXW9kX7vvKjlosxluFHtnAyc hnCzjSanTBetXEmmQ302QOXe iQvnTNYioK0pKWPlzASxaPmuUB 4wNTBpbjsnPkdJVFRJTkdFUiwg SG9IXAA6C4EhSbz6FSTbaKgg JT4kvRCwBYodYz0oeJyovYvrLP 3dWEYypzpbYMQsqR9tSJYadCTs mHhuVS7iBWMjykgds251ZpJl AEI1ZNHjyOPhV8YtcN7hMaDgRN CaYEVcA6YpwWWxUHorS360UYza CoH3XLJbwmFbA6PaDDYujQre FwE7e8N0Bv1sJV2cUU4dWVR5RW 19RL15sCWhk8K8cPQ7F2UnWTAu gbsvoxhvuQS7JIWkKXRzyM71 eCWaTLnsYm7va3V5i496TDByQC TusI04Ci8zmOicMMSnxLAMvZ0x qxhpb6ealvnvYcFjJWIlHIj0 BOh8CUNecSjlUrCqOBB5GgR3JT D1aGEwaJ0oyIcaqhkixM4sDci+ XqUuIHQvmoJ8S2QiEwd7ADJc cWzjLF5olQMyXTwqWz4bvFwhaB ayLH3hAKGsjztqZQZpxU5zCXJz rHYfjQffBI1uHOIkbmqph004 TwQfEIH8IZYlcSAqK1MlbT7eEv GfUDYmUVSdE0ZohFKdQBdfJ342 JLrsRrQ9FUFiqiYkF2DbSJAy nQrxBeX9s2I1Gb7XAG3jwPO1N9 GzOoo6LMBxtDofCP8owRUgIZgu Uj3woLqypFgrWP4tEKEiilrp QALueR1aZKMbqUHraOmuTW0eFK Ltdsqzo552AgCkTHM2YTAcuGKs P4KkuP3gOdIyDCRjSASkL5Rj kHGnWGkhN038SOcnSzD9SHXwrv VrH7BpDFIwbDkvAbN0i0M3Fk5A BXR2imZctcz1B3MaSeusxUP+ TS01PQNdNZ22kKThgAUqd8cajX c1HtTiAJVpVUI7qUrqIBpbc6Cc QMCzY73tdMEbr5T1AHPaiVvm nBOoZoOafNC2yV8jJVtdbkmxj7 ffroquNrhvs9zktk01zF59S95n IHdpZHRoPSIzMCUiIHZhbGln ea4zmP0nZq9+EILoyPO6cKL7sU 6sMuJzPxM1BGjpY910BhKdrFQh Pmcxo5lku4wkxMm5EgTuPYXb sgWprGntSYT9u1VnSe80M72lCH qoBSVfTRUmVYLrCJQsuEounv2o dA7iZr6+IS2pa2nhlj69wT57 dHI+UFEsSRO0bYbbWXyjLLZzcX 8hFUioRtR9PDFrZhVfjT70pXNr AApzSv4hbUkbcVkkEK4oTVWq rkqzx426BnBou6qwPCXrvTSpLH hmYAK1C71lm9H8KZQqARLkIMH1 tFB0zQ8rpMorxqpqzWChoNjc wsLgqSjjMFczFVgmH577BIErmM zfAuMiiVEpG4cxdqXBQF3xHzca dGQ+PJUrUYA1sFacPEulKSAt lV8vVVPvQ3w1OfQsTvO8ASoeE1 QsmsQ1OOCvqBEqUQTgbWFEfD3i igmkp1zapuxqOkXoPRGbKBo1 CIy4VRCvxWezYcAwHDK1GdL8TJ Q1dYVgjE4xvFppmbmssO0yXpo+ RklOOjwvdGQ+RWXrTEF6qYks UUsrDMYqfE2jJETwE1b6KvYlAv R0YKxjX1BjqcS1MZHzrKGgWVPx jGOPjE9fclump1shdsqfKbWi IWMuLPz9UCx4JDKhcZxxOdTcGT G6ZhX2IDM2iAGdfR4gvWexeeie oP7mMcr+TVJOOjwvdGQ+PHRk XKE5lQvaVPfyTKOqkL4iNMBjV9 e9EzOvRpQ4MQlvX4RkoeI5HKGo aDVcLNMtcDEOnG9lauhfa9wf nrnhKzJtXEWzCZq3AYc8FRYjnG vqGwRhSOZ6IhQ4DFD0tETjvV3v lHzyzzhboP7tOyn+QYP2DCQ9 TL76TT69U3OcXwxauNZheIE+PH RhYmxlIHdpZHRoPScxMDAlJyBz cNbrAM5mHv7sQZAoGLPjiDzh cHNl (more content not included)... Normal [facility] Priority Order-Les 2021 Priority Order-STAT Comment Invalid Interpretation Code [facility] Comment on above: Result Comment: Rece ived Performed at: [facility] [id number] PhD Anita Hughes Performed By: #### S ARS-CoV-2, JONY, [id number] #### [facility] [address] [place] [address] SARS-CoV-2, NAAon 05-16-2021 SARS-CoV-2 (COVID-19) RNA JONY+probe Ql (Resp) Not detected Invalid Interpretation Code Not Detected [facility] Comment on above: Result Comment: This nucleic acid amplification test was developed and its performance characteristics determined by [facility]. Nucleic acid amplification tests include RT-PCR and [...] detected) result in this assay. Performed at: [address] [id number] PhD Anita Hughes Performed By: #### S ARS-CoV-2, JONY, [id number] #### [facility] [address] [place] [address] Consent for Treatmenton 05-02 Consent for Treatment [id number]:[address] [facility] Reference Laboratory Testing Ordered By: [facility] on 05-15-2021 SARS-CoV-2 (COVID-19) RNA JONY+probe Ql (Resp) Not detected Invalid Interpretation Code Not Detected [facility] [employer] Comment on above: Result Comment: This nucleic acid amplification test was developed and its performance characteristics determined by [facility]. Nucleic acid amplification tests include RT-PCR and [...] detected) result in this assay. Performed at: [facility] [id number] PhD Anita Hughes Tobacco Screening.on 021 Fall [...] make patient management decisions.Fact sheet for providers: https://www.fda.gov/media/792946/downloadFact sheet for patients: https://www.fda.gov/media/377995/downloadThis test has received FDA Emergency Use Authorization (EUA) and has been verified by [facility] ([facility]). This test is only authorized for the duration of time that circumstances exist to justify the authorization of the emergency use of in vitro diagnostic tests for the detection of SARS-CoV-2 virus and/or diagnosis of COVID-19 infection under section 564(b)(1) of the Act, 21 U.S.C. 360bbb-3(b)(1), unless the authorization is terminated or revoked sooner. [facility] is certified under CLIA-88 as qualified to perform high complexity testing. Testing is performed in the [facility] laboratories located at [address] [place] [address] [place] [address]. Laboratory - Blood bankon ABO group Nom [...] Calcium [Mass/Vol] 9.3 mg/dL 8.6 - 10.6 [facility] Work Phone: 41 Chloride [Moles/Vol] 102 mmol/L 98 - 107 [facility] [facility] Work Phone: [phone] CO2 [Moles/Vol] 28 mmol/L 21 - 32 [facility] [facility] Work Phone: 41 Creatinine [Mass/Vol] 0.77 mg/dL See Below [facility] [facility] Work Phone: [phone] Comment on above: Reference Range: 0.5 0 - 1.05 Glucose [Mass/Vol] 95 mg/dL 74 - 99 [facility] [facility] Work Phone: 41 Potassium [Moles/Vol] 5.2 mmol/L 3.5 - 5.3 [facility] [facility] Work Phone: 41 Sodium [Moles/Vol] 138 mmol/L 136 - 145 [facility] [facility] Work Phone: 41 Urea nitrogen [Mass/Vol] 19 mg/dL 6 - 23 [facility] [facility] Work Phone: Laboratory - Hematology and Cell countson 03-13-2021 Erythrocyte distribution width (RBC) [Ratio] 12.8 % See Below [facility] [facility] Work Phone: [phone] Comment on above: Reference Range: 11. 5 - 14.5 Hematocrit (Bld) [Volume fraction] 38.6 % See Below [facility] [facility] Work Phone: [phone] Comment on above: Reference Range: 36. 0 - 46.0 Hemoglobin (Bld) [Mass/Vol] 11.8 g/dL below low threshold See Below [facility] [facility] Work Phone: Comment on above: Reference Range: 12. 0 - 16.0 MCHC (RBC) [Mass/Vol] 30.6 g/dL below low threshold See Below [facility] [facility] Work Phone: [phone] Comment on above: Reference Range: 32. 0 - 36.0 MCV (RBC) [Entitic vol] 96 fL 80 - 100 [facility] [facility] Work Phone: [phone] Platelets (Bld) [#/Vol] 325 10*3/uL 150 - 450 [facility] [facility] Work Phone: [phone] RBC (Bld) [#/Vol] 4.01 {x10E12/L} See Below [facility] [facility] Work Phone: [phone] Comment on above: Reference Range: 4.0 0 [...] Work Phone: 41 [email or web address] [email or web address] [email or web address] [email or web address]&Date=04-11&Time=10%3a52%3a43%3a 00&TestType=ECG&Site=1&Out putType=PDF&Ext=PDF [facility] Work Phone: [...] 40 1 [facility] Work Phone: [phone] [facility] Work Phone: [phone] [facility] Work Phone: [phone] [facility] Work Phone: [phone] [facility] Work Phone: [phone] [facility] Work Phone: [phone] [facility] Work Phone: [phone] [facility] Work Phone: CT Chest without Contraston 03-03-2021 CT Chest WO contrast Normal [facility] [facility] Work Phone: Tobacco Screening.on 021 Fall risk assessment a) No falls within the last year [facility] [facility] Work Phone: Tobacco use status [facility] b) No [facility] [facility] Work Phone: Tobacco Screening.on 021 Fall risk assessment c) Not medically indicated [facility] [facility] Work Phone: Tobacco use status CP b) No [facility] [facility] Work Phone: Vital Signs Date Time Vital Sign Value Performing Clinician Facility 02-22-2023 14:36-0400 Body height 163.8 cm Ronnie Murphy MD Work Phone: [facility] 02-22-2023 14:36-0400 Body mass index (BMI) [Ratio] 43.09 kg/m2 Ronnie Murphy MD Work Phone: [facility] 02-22-2023 14:36-0400 Body weight 115.67 kg Ronnie Murphy MD Work Phone: [facility] 02-15-2023 13:00-0400 Body height 165.1 cm Nikki Manning Other [facility] Other 02-15-2023 13:00-0400 Body mass index (BMI) [Ratio] 42.16 kg/m2 Nikki Fitt Other [facility] Other 02-15-2023 13:00-0400 Body weight 114.94 kg Nikki Fitt Other [facility] Other 02-01-2023 10:15-0400 Body height 165.1 cm Lilliam Scally Other [facility] Other 02-01-2023 10:15-0400 Body mass index (BMI) [Ratio] 42.2 kg/m2 Lilliam Scally Other [facility] Other 02-01-2023 10:15-0400 Body weight 115.03 kg Lilliam Scally Other [facility] Other 02-01-2023 10:15-0400 Diastolic blood pressure 78 mm[Hg] Lilliam Scally Other [facility] Other 02-01-2023 10:15-0400 Respiratory rate 20 /min Lilliam Scally Other [facility] Other 02-01-2023 10:15-0400 SaO2% (BldA) [Mass fraction] 96 % Lilliam Scally Other [facility] Other 02-01-2023 10:15-0400 Systolic blood pressure 130 mm[Hg] Lilliam Scally Other [facility] Other 12-22-2022 13:00-0400 Body height 165.1 cm Nikki Fitt Other [facility] Other 12-22-2022 13:00-0400 Body mass index (BMI) [Ratio] 41.73 kg/m2 Nikki Fitt Other [facility] Other 12-22-2022 13:00-0400 Body weight 113.76 kg Nikki Fitt Other [facility] Other 10-19-2022 10:15-0400 Body height 165.1 cm Lilliam Scally Other [facility] Other 10-19-2022 10:15-0400 Body mass index (BMI) [Ratio] 41.41 kg/m2 Lilliam Scally Other [facility] Other 10-19-2022 10:15-0400 Body weight 112.9 kg Lilliam Scally Other [facility] Other 10-19-2022 10:15-0400 Diastolic blood pressure 72 mm[Hg] Lilliam Scally Other [facility] Other 10-19-2022 10:15-0400 Respiratory rate 18 /min Lilliam Scally Other [facility] Other 10-19-2022 10:15-0400 SaO2% (BldA) [Mass fraction] 96 % Lilliam Scally Other [facility] Other 10-19-2022 10:15-0400 Systolic blood pressure 110 mm[Hg] Lilliam Scally Other [facility] Other 10-19-2022 08:15-0400 Body height 165.1 cm Nikki Fitt Other [facility] Other 07-27-2022 10:45-0400 Body height 165.1 cm Lilliam Scally Other [facility] Other 07-27-2022 10:45-0400 Body mass index (BMI) [Ratio] 41.08 kg/m2 Lilliam Scally Other [facility] Other 07-27-2022 10:45-0400 Body weight 111.99 kg Lilliam Scally Other [facility] Other 07-27-2022 10:45-0400 Diastolic blood pressure 72 mm[Hg] Lilliam Scally Other [facility] Other 07-27-2022 10:45-0400 Respiratory rate 20 /min Lilliam Scally Other [facility] Other 07-27-2022 10:45-0400 SaO2% (BldA) [Mass fraction] 97 % Lilliam Scally Other [facility] Other 07-27-2022 10:45-0400 Systolic blood pressure 109 mm[Hg] Lilliam Scally Other [facility] Other 06-15-2022 09:15-0500 Body height 165.1 cm Nikki Manning Other [facility] Other 06-01-2022 13:03-0500 Body height 163.83 cm Gopi Solis MD Work Phone: [place] [address] DO Work Phone: 06-01-2022 13:03-0500 Body mass index (BMI) [Ratio] 43.6 kg/m2 Gopi Solis MD Work Phone: [facility] DO Work Phone: 06-01-2022 13:03-0500 Body surface area Derived from formula 2.19 m2 Gopi Solis MD Work Phone: [facility] DO Work Phone: 06-01-2022 13:03-0500 Body weight 117.03 kg Gopi Solis MD Work Phone: [facility] DO Work Phone: 06-01-2022 13:03-0500 Diastolic blood pressure 62 mm[Hg] Gopi Solis MD Work Phone: [facility] DO Work Phone: 06-01-2022 13:03-0500 Heart rate 76 /min Gopi Solis MD Work Phone: [facility] DO Work Phone: 06-01-2022 13:03-0500 Systolic blood pressure 126 mm[Hg] Gopi Solis MD Work Phone: [facility] DO Work Phone: 06-01-2022 12:30-0500 Body height 165.1 cm Lilliam Scally Other [facility] Other 06-01-2022 12:30-0500 Body mass index (BMI) [Ratio] 42.85 kg/m2 Lilliam Scally Other [facility] Other 06-01-2022 12:30-0500 Body weight 116.8 kg Lilliam Scally Other [facility] Other 06-01-2022 12:30-0500 Diastolic blood pressure 70 mm[Hg] Lilliam Scally Other [facility] Other 06-01-2022 12:30-0500 Respiratory rate 20 /min Lilliam Scally Other [facility] Other 06-01-2022 12:30-0500 SaO2% (BldA) [Mass fraction] 97 % Lilliam Scally Other [facility] Other 06-01-2022 12:30-0500 Systolic blood pressure 112 mm[Hg] Lilliam Scally Other [facility] Other 02-09-2022 15:01-0400 Body height 162.56 cm Ronnie Murphy MD Work Phone: YP[facility]Kwwhnvfbmroexj[facility] [place] Work Phone: 02-09-2022 15:01-0400 Body mass index (BMI) [Ratio] 46.35 kg/m2 Ronnie Murphy MD Work Phone: QQ-Yzmbrfhjxnccuz-Tab [place] Work Phone: 02-09-2022 15:01-0400 Body surface area Derived from formula 2.22 m2 Ronnie Murphy MD Work Phone: TT-Yucnnosmldueux-Frb [place] Work Phone: 02-09-2022 15:01-0400 Body weight 122.47 kg Ronnie Murphy MD Work Phone: XN-Ultfhuwrfamijb-Vgb [place] Work Phone: 03-31-2021 15:33-0500 Body height 162.56 cm Ronnie Murphy MD Work Phone: BF-Bhbbvkeicietot-Spm [place] Work Phone: 03-31-2021 15:33-0500 Body mass index (BMI) [Ratio] 46.52 kg/m2 Ronnie Murphy MD Work Phone: LQ-Xhlxwuwopfgtnd-Ryz [place] Work Phone: 03-31-2021 15:33-0500 Body surface area Derived from formula 2.23 m2 Ronnie Murphy MD Work Phone: LJ-Qltiohssnpjhzm-Tue [place] Work Phone: 03-31-2021 15:33-0500 Body temperature 97.2 [degF] Ronnie Murphy MD Work Phone: UZ-Uhypydmsjkuide-Iec [place] Work Phone: 03-31-2021 15:33-0500 Body weight 122.93 kg Ronnie Murphy MD Work Phone: XT-Slfgvonuoenlzh-Dzg [place] Work Phone: 03-03-2021 12:52-0400 Body height 162.56 cm Ronnie Murphy MD Work Phone: IS-Axwjvmrydshzqm-Aaj [place] Work Phone: 03-03-2021 12:52-0400 Body mass index (BMI) [Ratio] 46.35 kg/m2 Ronnie Murphy MD Work Phone: AD-Dzvqyzwbiqqudc-Pen [place] Work Phone: 03-03-2021 12:52-0400 Body surface area Derived from formula 2.22 m2 Ronnie Murphy MD Work Phone: OD-Xpuisndeiaqdsa-Hgl [place] Work Phone: 03-03-2021 12:52-0400 Body weight 122.47 kg Ronnie Murphy MD Work Phone: KU-Fxaflxdryhrpkj-Htf [place] Work Phone: 02-10-2021 15:05-0400 Body height 162.56 cm Ronnie Murphy MD Work Phone: YI-Pbnngkxacexrnd-Tyn [place] Work Phone: 02-10-2021 15:05-0400 Body mass index (BMI) [Ratio] 46 kg/m2 Ronnie Murphy MD Work Phone: BB-Rwfkoyqgxqdpyx-Uom [place] Work Phone: 02-10-2021 15:05-0400 Body surface area Derived from formula 2.22 m2 Ronnie Murphy MD Work Phone: OX-Pgzserocyqhjha-Ivi [place] Work Phone: 02-10-2021 15:05-0400 Body temperature 97.4 [degF] Ronnie Murphy MD Work Phone: XE-Wupdlivlxxocxd-Dnz [place] Work Phone: 02-10-2021 15:05-0400 Body weight 121.56 kg Ronnie Murphy MD Work Phone: ED-Cbxvophgpjterm-Ptp [place] Work Phone: Encounters Encounter Date Encounter Type Care Provider Facility Start: 04-13-2023 End: 04-13-2023 ambulatory Lilliam Montejo Other [facility] Other Start: 04-13-2023 Telephone encounter Lilliam Mcbride [facility] Start: 03-18-2023 End: 03-18-2023 ambulatory Lilliam Montejo Other [facility] Other Start: 03-18-2023 Telephone encounter Lilliam Mcbride [facility] Start: 03-15-2023 ambulatory Bello Hilton Facility[facility] [facility] Start: 02-22-2023 End: 02-22-2023 ambulatory [facility] Start: 02-22-2023 End: 02-22-2023 Office outpatient visit 15 minutes Ronnie Murphy MD Work Phone: [facility] [place][note 2] Comment on above: Tracheal stenosis (P rimary Dx) Start: 02-15-2023 ([facility] RD FU) [facility] F/ U Registerd History Instructor Nikki Manning [facility] Start: 02-15-2023 End: 02-15-2023 ambulatory Nikki Manning Other [employer] Other Start: [facility]20[facility] Weight Management f/u Lilliam Montejo [facility] Start: 02-01-2023 End: 02-01-2023 ambulatory Lilliamcarlos Montejo Other [employer] Other Start: 01-27-2023 Rx Renewal Luana Cox COMMUNITY DEVELOPMENT COORDINATOR-DOCUMENT REVIEW SPECIALIST Work Phone: DI-Tnbugsoczgjdtp-Kfpv n [place] [address] Work Phone: Start: 01-11-2023 ambulatory Ben Mcbride acility:[facility] Start: 01-05-2023 End: 01-05-2023 ambulatory Lilliam Alexandreclark Other [employer] Other Start: 01-05-2023 Telephone encounter [facility]am [facility] Start: 12-22-2022 ([facility] WMNI) WMN Init ial Provider Nikki Manning [facility] Start: 12-22-2022 End: 12-22-2022 ambulatory Nikki Manning Other [employer] Other Start: 10-19-2022 [facility] Weight Management f/u Lilliam Montejo [facility] Start: 10-19-2022 End: 10-19-2022 ambulatory Nikki Fitt Other [employer] Other Start: 10-19-2022 IBT FOR OBESITY GROU P 2-10 30M Nikki Ciprianot [facility] Start: 09-02-2022 End: 09-03-2022 ambulatory LILLIAM MONTEJO Facility:H1 Start: 08-05-2022 End: 08-05-2022 ambulatory Lilliam Montejo Other [employer] Other Start: 08-05-2022 Telephone encounter Lilliam Montejo [facility] Start: 07-27-2022 ([facility]/U) Weight Management f/u Lilliam Montejo [facility] Start: 07-27-2022 End: 07-27-2022 ambulatory Lilliam Montejo Other [employer] Other Start: 06-29-2022 End: 06-29-[address] DOCTOR SHANKS Facility:H1 Start: 06-15-2022 End: 06-15-2022 ambulatory Nikki Fitt Other [employer] Other Start: 06-15-2022 IBT FOR OBESITY GROU P 2-10 30M [facility] Start: 06-01-2022 Office consultation new/estab patient 60 min [facility]: Start: 06-01-2022 Office outpatient ne w 45 minutes Gopi Solis MD Work Phone: [facility] 250 DO Work Phone: Start: 06-01-2022 (FCCC[facility]NF/U) Weight Management f/u Lilliam Montejo [facility] Start: 06-01-2022 End: 06-01-2022 ambulatory Bello Hilton II Facility:[id number] Start: 05-17-2022 End: 05-18-[address] DOCTOR SHANKS Facility:H1 Start: 05-11-2022 End: 05-12-[address] ABDIAS ROMEO Facility:H1 Start: 04-28-2022 Rx Change Luana Cox COMMUNITY DEVELOPMENT COORDINATOR-DOCUMENT REVIEW SPECIALIST Work Phone: RI-Bhfflklvctydke-Jfnx n [place] [address] Work Phone: Start: 02-09-2022 Office outpatient vi sit 15 minutes Ronnie Murphy MD Work Phone: CE-Sopvphbisolgra-Cqrh [place] Work Phone: Start: 02-09-[address] RONNIE MURPHY Fa cility:[id number] Start: 05-15-2021 End: 08-13-2021 Patient encounter procedure BELLO HILTON [facility] Start: 04-16-2021 Rx Renewal Ronnie Murphy MD Work Phone: IF-Wyybxwdbiemmze-Svrj n [place] [address] Work Phone: Start: 03-31-2021 Office outpatient vi sit 15 minutes Ronnie Murphy MD Work Phone: KM-Vougigkoiqmzqs-Lwjq [place] Work Phone: Start: 03-19-2021 [facility], Provider: Ronnie Murphy, Status: Pen, Time: 9:00 AM Ronnie Murphy MD Work Phone: PS-Ttvukkschumtjy-Cjxy man Work Phone: Start: 03-18-2021 Chart Update Ronnie Murphy MD Work Phone: YN-Jtsayqzpdljtvt-Wjlh man Work Phone: Start: 03-04-2021 Chart Update Ronnie Murphy MD Work Phone: LS-Agslevmquqdtal-Lwlr [place] Work Phone: Start: 02-11-2021 Telephone encounter Luana Espinosa ndt COMMUNITY DEVELOPMENT COORDINATOR-DOCUMENT REVIEW SPECIALIST Work Phone: TE-Krouknhiyhcuog-Vazn rban Work Phone: Start: 02-10-2021 Office outpatient vi sit 15 minutes Ronnie Murphy MD Work Phone: AM-Cbvsqyzdyghjvb-Gkdh [place] Work Phone: Start: 02-12-2020 Patient encounter procedure Ronnie Ellisu UX-Guebzdjyhkqigx-Dqdo rban Work Phone: Start: 08-22-2018 Patient encounter procedure Ronnie Lavkwabenanicholas CV-Jrpeaaewibggrz-Gjgd n [place] [address] Work Phone: Start: 02-28-2018 Patient encounter procedure Ronnie Ellisu OZ-Wwcfuuqvkyclqf-Nrtb n [place] [address] Work Phone: Start: 08-23-2017 Patient encounter procedure Ronnie Ellisu CM-Yvpxnyswoxfhvp-Hmqr n [place] [address] Work Phone: Start: 02-22-2017 Patient encounter procedure Ronnie Murphy GH-Wqpckamdcdnllb-Tulp n [place] [address] Work Phone: Procedures Date Procedure Procedure Detail Performing Clinician Start: 05-11-2022 Mammography Ronnie mcdowell MD Work Phone: Start: 2019 Total colonoscopy Brigitte Daugherty MD Work Phone: Hernia repair Gopi ovalle MD Work Phone: Operation on breast Gopi Solis MD Work Phone: Plan of Treatment Date Care Activity Detail Author Start: 02-21-2024 End: 02-21-2024 Patient encounter procedure 02/21/2024 1:15 PM EDT Office Visit [facility] [place][note 2] [address] [facility] [address] [place] [address] [place] [address] [place] [address] [facility] [place][note 2] Start: 05-11-2023 Screening for malignant neoplasm of breast Mammogram [facility] Start: 02-22-2023 FUV, Provider: Ronnie Murphy, Status: Pen, Time: 2:45 PM FUV, Provider: Ronnie Murphy, Status: Pen, Time: 2:45 PM DC-Vlnxaxexrrmxek-Enm tlake Work Phone: Start: 12-31-2022 Influenza vaccination Influenza Vaccine (#1) [facility] Start: 08-10-2022 FUV, Provider: Gopi Solis, Status: Pen, Time: 12:50 PM FUV, Provider: Gopi Solis, Status: Pen, Time: 12:50 PM [facility] 250 DO Work Phone: Start: 07-13-2022 REST ONLY, Provider: DI HHVI NUCLEAR 01,[id number], Status: Pen, Time: 12:30 PM REST ONLY, Provider: DI HHVI NUCLEAR 01,[id number], Status: Pen, Time: 12:[address] [facility] 250 DO Work Phone: Start: 07-12-2022 STRESSNUC2, Provider: DI HHVI NUCLEAR 01,[id number], Status: Pen, Time: 12:30 PM STRESSNUC2, Provider: DI HHVI NUCLEAR 01,[id number], Status: Pen, Time: 12:[address] [facility] 250 DO Work Phone: Start: 07-06-2022 COVID-19 Vaccine (4 - Pfizer series) COVID-19 Vaccine (4 - Pfizer series) [facility] Start: 02-09-2022 FUV, Provider: Ronnie Murphy, Status: Pen, Time: 2:50 PM FUV, Provider: Ronnie Murphy, Status: Pen, Time: 2:50 PM PI-Zldqujhnberkyn-Yvm tlake Work Phone: Start: 03-31-2021 POV, Provider: Ronnie Murphy, Status: Pen, Time: 3:00 PM POV, Provider: Ronnie Murphy, Status: Pen, Time: 3:00 PM ZN-Pdzikyhwheplnn-Zkf dman Work Phone: Start: 03-19-2021 [facility] Provider: Ronnie Murphy, Status: Pen, Time: 9:00 AM [facility], Provider: Ronnie Murphy, Status: Pen, Time: 9:00 AM ZI-Auqvjvgvultzcy-Gss tlake Work Phone: Start: 03-03-2021 FUV, Provider: Ronnie Murphy, Status: Pen, Time: 1:00 PM FUV, Provider: Ronnie Murphy, Status: Pen, Time: 1:00 PM HL-Dokarigejfwods-Kjd urban Work Phone: Start: 2017 Hepatitis B Vaccines (1 of 3 - Risk 3-dose series) Hepatitis B Vaccines (1 of 3 - Risk 3-dose series) [facility] Start: 2007 Zoster Vaccines (1 of 2) Zoster Vaccines (1 of 2) [facility] Start: 1979 DTaP/Tdap/Td Vaccines (1 - Tdap) DTaP/Tdap/Td Vaccines (1 - Tdap) [facility] Start: 1978 Screening for malignant neoplasm of cervix [facility] Start: 1976 Hepatitis A Vaccines (1 of 2 - Risk 2-dose series) Hepatitis A Vaccines (1 of 2 - Risk 2-dose series) [facility] Start: 1976 Urine screening for protein Diabetes: Urine Protein Screening [facility] Start: 1975 Hepatitis C screening Hepatitis C Screening [facility] Start: 1967 Diabetic foot examination Diabetes: Foot Exam [facility] Start: 1967 Glaucoma screening Diabetes: Retinopathy Screening [facility] Start: 1963 Pneumococcal Vaccine: 65+ Years (1 - PCV) Pneumococcal Vaccine: 65+ Years (1 - PCV) [facility] Start: 1958 MMR Vaccines (1 of 1 - Standard series) MMR Vaccines (1 of 1 - Standard series) [facility] Start: 1957 Hemoglobin A1c measurement Diabetes: Hemoglobin A1C [facility] Start: 1957 Lipid panel Lipid Panel [facility] Start: 1957 Screening for malignant neoplasm of colon [facility] Start: 1957 Screening for osteoporosis Bone Density Scan [facility] Start: 1957 Thyroid stimulating hormone measurement TSH Level [facility] Start: 1957 Yearly Adult Physical Yearly Adult Physical [facility] Immunizations Immunization Date Immunization Notes Care Provider Fa cility 05-11-2022 Pfizer COVID-19 Vac Bivalent 30 MCG/0.3ML Intramuscular Suspension Gopi Solis MD Work Phone: [facility] 250 DO Work Phone: 04-02-2021 Pfizer-BioNTech COVID-19 Vacc 30 MCG/0.3ML Intramuscular Suspension Gopi Solis MD Work Phone: [facility] 250 DO Work Phone: 09-15-2020 Pfizer-BioNTech COVID-19 Vacc 30 MCG/0.3ML Intramuscular Suspension Gopi Solis MD Work Phone: [facility] 250 DO Work Phone: 08-25-2020 Pfizer-BioNTech COVID-19 Vacc 30 MCG/0.3ML Intramuscular Suspension Gopi Solis MD Work Phone: [facility] 250 DO Work Phone: Payers Date Payer Category Payer Private Health Insurance [id number] 2022 Self-pay 1959 Private Health Insurance [id number] 1957 Unknown [id number] 2.16. [id number] 1957 Unknown [id number] 2.16. [id number] 1957 Unknown [id number] 2.16.84 [id number] 1957 Unknown [id number] 2.16.84 [id number] 1957 Unknown [id number] 2.16.84 [id number] 1957 Unknown [id number] 2.16.84 [id number] 1957 Unknown [id number] 2.16.8 [id number] Unknown Unknown [id number] Unknown [id number] Unknown [id number] 2.16.8 [id number] Unknown [id number] 2.16.8 [id number] Social History Date Type Detail Facility Start: 02-22-2023 Never a smoker Never a smoker [facility] Work Phone: Comment on above: pop 3 daily; Start: 02-22-2023 Sex Assigned At Female [facility] Start: 02-22-2023 Tobacco smoking status NHIS Never smoked tobacco [facility] Start: 02-22-2023 Tobacco use and exposure Smokeless tobacco non-user [facility] Work Phone: Start: 1955 Sex Assigned At Not on file [facility] Work Phone: Start: 02-12-2023 End: 02-22-2023 Exposure to SARS-CoV-2 (event) Not sure [facility] NEGATED: Highlighted row - - VC-Dnrooatfbsoqgs-Tb m in [place] [address] Work Phone: Medical Equipment Procedure Code Equipment Code Equipment Origin al Text Equipment Identifier Dates Pen [place] 32G X 4 MM Start: 02-01-2023 Laser Engineerin luana Hwg 500 Fiber Case [id number] Start: 03-19-2021 Comment on above: Description: Convert ed from [facility]. Please see archived information for full log information. Additional Information:per bill only jdr 03/28/2021 1456pm Functional Status Date Assessment Result Facility NEGATED: Highlighted row Functional performance Functional status health issues are not documented Disease NF-Nyoummuvwvbaoo-X [place] [address] Work Phone: Mental Status Date Assessment Result Facility NEGATED: Highlighted row Cognitive function [Interpretation] Cognitive status health issues are not documented Disease LO-Dnfhbjfpmislem-G [place] [address] Work Phone: Clinical Notes 03-03-2021 to 02-22-2023 [...] of any inflammation. documented in this encounter [facility] Work Phone: 02-15-2023 Evaluation note Encounter [...] other veggie/fruit w/ dinner; PARTIALLY MET, ON-GOING [employer] Other [id number] Evaluation note* Encounter Date Diagnosis Assessment Notes Treatment Notes Treatment Clinical Notes Jan, Obesity (ICD-10 - E66.9) [facility] sent wrong diagnosis code, then sent to [...] was counseling done by myself, Moira NICHOLS. [facility] Other 08-23-2023 Evaluation note* Encounter Date Diagnosis [...] beans, salad or other veggie/fruit w/ dinner [facility] Other 06-20-2023 Evaluation note* Encounter Date Diagnosis [...] patient set personal goal using given handout. [employer] Other 06-20-2023 Evaluation note* Encounter Date Diagnosis Assessment Notes Treatment Notes Treatment Clinical Notes Sep, Obesity (ICD-10 - E66.9) [facility] sent wrong diagnosis code, then sent to non preferred pharmacy. Sent to [facility] per [facility] preferred. Sep, BMI 40.0-44.9, adult (ICD-10 - [...] was counseling done by myself, Moira NICHOLS. [facility] Other 03-28-2023 Evaluation note* Encounter Date Diagnosis Assessment Notes Treatment Notes Treatment Clinical Notes Jun, Obesity (ICD-10 - E66.9) [facility] sent wrong diagnosis code, then sent to non preferred pharmacy. Sent to [facility] per [facility] preferred. Jun, BMI 40.0-44.9, adult (ICD-10 - [...] was counseling done by myself, Moira NICHOLS. [facility] Other 02-14-2023 Evaluation note* Encounter Date Diagnosis [...] patient set personal goal using given handout. [facility] Other 01-31-2023 Evaluation note* Encounter Date Diagnosis Assessment Notes Treatment Notes Treatment Clinical Notes May, Obesity (ICD-10 - E66.9) first sent wrong diagnosis code, then sent to non preferred pharmacy. Sent to [facility] per [facility] preferred. May, BMI 40.0-44.9, adult (ICD-10 - [...] was counseling done by myself, Moira NICHOLS. [facility] Other 01-31-2023 History of Present illness Narrative* [...] * 5. Follow-up after testing is done [place] [address] DO Work Phone: 1(147) 603-146111-02-2021 History of Present illness NarrativeThis patient presented [...] and is very pleased with the results. CO-Kdqqtzdzejtdrf-Epjfzkmq Work Phone: 1(260) 381-423411-02-2021 History of Present illness NarrativeThis patient presented [...] today for follow-up. Her breathing has remained stable.GR-Idlbtjwiusuabg-Jecpeptm Work Phone: chief complaint Narrative - ReportedBETH DONOVAN is being seen for a consultation for [facility]H.-[facility] 250 DO Work Phone: Evaluation + Plan note No data available for this section [facility] noteNo InformationNortSt. [facility] [employer] Other Evaluation note* Diagnosis Tracheal stenosis- Primary Other diseases of trachea and bronchus documented in this encounter [facility] Work Phone: History general Narrative - Reported* Type Description Date Medical History thyroid disease Medical History Cholesterol Medical History depression Medical History acid reflux Medical History bipolar Surgical History breast reduction Surgical History throat surgery Surgical History hernia Hospitalization History see surgical hx [facility] [employer] Other Hisbzpy general Narrative - Reported* Type Description Date Medical History thyroid disease Medical History Cholesterol Medical History depression Medical History acid reflux Medical History bipolar Surgical History breast reduction Surgical History throat surgery Surgical History hernia Hospitalization History see surgical hx Hospitalization History [facility] ER 07/2022 [employer] Other History of Present illness NarrativeThis patient [...] time it feels like it is somewhat bnztjaojVB-Pvoyvqibtjcaid-Zdpfbuze Work Phone: Hospital Discharge instructions No data available for this section [facility] Family History No Family History Records Found [...] and content) DATE CREATED AUTHOR 08/15/2021 [facility] DATE CREATED AUTHOR AUTHOR'S ORGANIZ ATION 06/02/2022 [facility] DATE CREATED AUTHOR AUTHOR'S ORGANIZ ATION 06/02/2022 [employer] DATE CREATED AUTHOR AUTHOR'S ORGANIZ ATION 09/09/2022 [facility] DATE CREATED AUTHOR AUTHOR'S ORGANIZ ATION 02/27/2023 [facility] DATE CREATED AUTHOR AUTHOR'S ORGANIZ ATION 05/06/2023 [facility] REASON FOR VISIT (unrecogniz ed section and [...] BE BASED ON THE PRIMARY CLINICAL RECORDS. [employer] [facility]. provides no warranty or guarantee of the accuracy or completeness of information in this document.
--- OUTSIDE RECORDS SUMMARY | 2023-05-15 07:42 | XMS_ITS | CCD ---
Author Name Unknown Address [address] [place] [address] Organization [facility] Care Team Providers Care Manager Technology Name Role Phone Ronnie Murphy Unavailable Unavailable [...] weekly for 30 days E11.65 Rx Bin [id number], Group: [id number], PCN 3F, ID: [id number] Sep, Active Mounjaro 2.5 MG/ 0.5ML as directed Subcutaneous weekly for 30 days E11 Rx Bin [id number], Group: [id number], PCN 3F, ID: [id number]-- NOT covered Not-Taking Mounjaro 2.5 MG/ 0.5ML as directed Subcutaneous weekly for 30 days E11 Rx Bin [id number], Group: [id number], PCN 3F, ID: [id number]-- NOT covered Active Cholecalciferol (14 sources) Vitamin D Vitamin D3 1.25 MG (53030 UT) TAKE 1 CAPSULE BY MOUTH WEEKLY FOR 56 DAYS for 56 Not-Taking/PRN take 1 capsule by mouth once rishi ly Cholecalciferol 1.25 MG (21021 UT) 1 capsule Orally weekly for 56 [...] 30 mg oral tablet (12 sources) Uncompetitive K-kiltsa-Z-aspartat e Receptor Antagonist, Sigma-1 Agonist Start: 04-20-2020 take 1 tablet by mouth every six hours [place] DMT 30-30 MG 1 tablet Orally every [...] weekly for 30 days E11.65 Rx Bin [id number], Group: [id number], PCN 3F, ID: [id number]-- NOT covered Not-Taking/PRN 0.25 mg, 0.5 mg [...] Onset: 3 Chronic Other aftercare (1 source) 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 Vivian Fall Glucose [Mass/Vol] 120 mg/dL Normal [facility] Comment on above: Performed By: #### P TT, PT #### [facility] [address] [place] [address] Dr. Vivian Fall HbA1c (Bld) [Mass fraction] 5.8 % Normal 4.5-6.2 [facility] Comment on above: Performed By: #### P TT, PT #### [facility] [address] [place] [address] Dr. Vivian Fall LIPID PROFILEon 09-02-2022 CHOL-HDL RATIO NORM SEE BELOW Normal [facility] Comment on above: Result Comment: 3.3 - 4.4 LOW RISK 4.4 - 7.1 AVERAGE RISK 7.1 - 11.0 MODERATE RISK >11.0 HIGH RISK Performed By: #### P TT, PT #### [facility] [address] [place] [address] Dr. Vivian Fall Cholesterol [Mass/Vol] 171 mg/dL Normal <=200 [facility] Comment on above: Performed By: #### P TT, PT #### [facility] [address] [place] [address] Dr. Vivian Fall Cholesterol in HDL [Mass/Vol] 52 mg/dL Normal 40-60 [facility] Comment on above: Performed By: #### P TT, PT #### [facility] [address] [address] [address] Vivian Fall Cholesterol in LDL [Mass/Vol] 89.8 mg/dL Normal [facility] Comment on above: Performed By: #### P TT, PT #### [facility] [address] [place] [address] Dr. Vivian Fall Cholesterol.total/ Cholesterol in HDL [Mass ratio] 3.3 {ratio} Normal [facility] Comment on above: Performed By: #### P TT, PT #### [facility] [address] [place] [address] Dr. Vivian Fall HDL NORMAL > or = 60 mg/dl - LO W CARDIOVASCULAR RISK <40 mg/dl - HIGH CARDIOVASCULAR RISK Normal [facility] Comment on above: Performed By: #### P TT, PT #### [facility] [address] [place] [address] Dr. Vivian Fall LDL CALC NORMAL SEE BELOW Normal [facility] Comment on above: Result Comment: <100 mg/dl OPTIMAL 100 - 129 mg/dl NEAR OR ABOVE OPTIMAL 130 - 159 mg/dl BORDERLINE HIGH 160 - 189 mg/dl HIGH >190 mg/dl VERY HIGH Performed By: #### P TT, PT #### [facility] [address] [place] [address] Dr. Vivian Fall Triglyceride [Mass/Vol] 146 mg/dL Normal <=150 [facility] Comment on above: Performed By: #### P TT, PT #### [facility] [address] [place] [address] Dr. Vivian Fall VLDL CALC 29.2 mg/dL Normal [facility] Comment on above: Performed By: #### P TT, PT #### [facility] [address] [place] [address] Dr. Vivian Fall PROF 14(COMP METB)on 023 Albumin [Mass/Vol] 3.6 g/dL Normal 3.4-5.0 [facility] Comment on above: Performed By: #### C MP, LIPID #### [facility] [address] [place] [address] Dr. Vivian Fall Albumin/Globulin [Mass ratio] 0.9 {ratio} Normal [facility] Comment on above: Performed By: #### C MP, LIPID #### [facility] [address] [place] [address] Dr. Vivian Fall ALP [Catalytic activity/Vol] 81 U/L Normal 46-116 [facility] Comment on above: Performed By: #### C MP, LIPID #### [facility] [address] [place] [address] Dr. Vivian Fall ALT [Catalytic activity/Vol] 22 U/L Normal 14-59 [facility] Comment on above: Performed By: #### C MP, LIPID #### [facility] [address] [place] [address] Dr. Vivian Fall Anion gap [Moles/Vol] 12.5 mmol/L Normal [facility] Comment on above: Performed By: #### C MP, LIPID #### [facility] [address] [place] [address] Dr. Vivian Fall AST [Catalytic activity/Vol] 15 U/L Normal 15-37 [facility] Comment on above: Performed By: #### C MP, LIPID #### [facility] [address] [place] [address] Dr. Vivian Fall Bilirubin [Mass/Vol] 0.6 mg/dL Normal 0.2-1.0 [facility] Comment on above: Performed By: #### C MP, LIPID #### [facility] [address] [place] [address] Dr. Vivian Fall Calcium [Mass/Vol] 9.1 mg/dL Normal 8.5-10.1 [facility] Comment on above: Performed By: #### C MP, LIPID #### [facility] [address] [place] [address] Dr. Vivian Fall Chloride [Moles/Vol] 103 mmol/L Normal 98-107 [facility] Comment on above: Performed By: #### C MP, LIPID #### [facility] [address] [place] [address] Dr. Vivian Fall CO2 [Moles/Vol] 27.6 mmol/L Normal 21.0-32.0 [facility] Comment on above: Performed By: #### C MP, LIPID #### [facility] [address] [place] [address] Dr. Vivian Fall Creatinine [Mass/Vol] 0.78 mg/dL Normal 0.55-1.02 [facility] Comment on above: Performed By: #### C MP, LIPID #### [facility] [address] [place] [address] Dr. Vivian Fall EGFR-AF FAROESE >60 Normal >=60 [facility] Comment on above: Performed By: #### C MP, LIPID #### [facility] [address] [place] [address] Dr. Vivian Fall EGFR-NON AF FAROESE >60 Normal >=60 [facility] Comment on above: Performed By: #### C MP, LIPID #### [facility] [address] [place] [address] Dr. Vivian Fall Globulin (S) [Mass/Vol] 3.8 g/dL Normal [facility] Comment on above: Performed By: #### C MP, LIPID #### [facility] [address] [place] [address] Dr. Vivian Fall Glucose [Mass/Vol] 105 mg/dL Normal 74-106 [facility] Comment on above: Performed By: #### C MP, LIPID #### [facility] [address] [place] [address] Dr. Vivian Fall Potassium [Moles/Vol] 4.1 mmol/L Normal 3.5-5.1 [facility] Comment on above: Performed By: #### C MP, LIPID #### [facility] [address] [place] [address] Dr. Vivian Fall Protein [Mass/Vol] 7.4 g/dL Normal 6.4-8.2 [facility] Comment on above: Performed By: #### C MP, LIPID #### [facility] [address] [place] [address] Dr. Vivian Fall Sodium [Moles/Vol] 139 mmol/L Normal 136-145 [facility] Comment on above: Performed By: #### C MP, LIPID #### [facility] [address] [place] [address] Dr. Vivian Fall Urea nitrogen [Mass/Vol] 11.0 mg/dL Normal 7.0-18.0 [facility] Comment on above: Performed By: #### C MP, LIPID #### [facility] [address] [place] [address] Dr. Vivian Fall Urea nitrogen/Creatinin e [Mass ratio] 14.1 mg/mg Normal [facility] Comment on above: Performed By: #### C MP, LIPID #### [facility] [address] [place] [address] Dr. Vivian Fall VITAMIN B12on 09-02-2022 Cobalamin (Vitamin B12) [Mass/Vol] 373.0 pg/mL Normal 193.0-986.0 [facility] Comment on above: Performed By: #### P TT, PT #### [facility] [address] [place] [address] Dr. Vivian Fall VITAMIN D 25 OHon 09-02-2022 VIT D 25-OH 16.1 ng/mL Normal [facility] Comment on above: Performed By: #### P TT, PT #### [facility] [address] [place] [address] Dr. Vivian Fall VIT D RANGES SEE BELOW Normal [facility] Comment on above: Result Comment: <20 ng/mL Vit D deficient 20 - <30 ng/mL Vit D insufficient 30 - 100 ng/mL Vit D sufficient >100 ng/mL Potential Toxicity Performed By: #### P TT, PT #### [facility] [address] [place] [address] Dr. Vivian Fall BNPon 06-29-2022 Natriuretic peptide B (Bld) [Mass/Vol] 223.0 pg/mL Normal <=900.0 [facility] Comment on above: Performed By: #### C MP, HSTROPN, BNP #### [facility] [address] [place] [address] Dr. Vivian Fall CBC AUTO DIFFon 06-29-2022 BASO # 0.0 103/ul Normal 0.0-0.1 [facility] Comment on above: Performed By: #### C BC #### [facility] [address] [place] [address] Dr. Vivian Fall Basophils/100 WBC (Bld) 0.2 % Normal 0.2-2.0 [facility] Comment on above: Performed By: #### C BC #### [facility] [address] [place] [address] Dr. Vivian Fall EO # 0.0 103/ul Normal 0.0-0.7 [facility] Comment on above: Performed By: #### C BC #### [facility] [address] [place] [address] Dr. Vivian Fall Eosinophils/100 WBC (Bld) 0.0 % Critically low 0.9-7.0 [facility] Comment on above: Performed By: #### C BC #### [facility] [address] [place] [address] Dr. Vivian Fall Erythrocyte distribution width (RBC) [Ratio] 13.0 % Normal 11.0-15.0 [facility] Comment on above: Performed By: #### C BC #### [facility] [address] [place] [address] Dr. Vivian Fall Hematocrit (Bld) [Volume fraction] 36.2 % Normal 36.0-48.0 [facility] Comment on above: Performed By: #### C BC #### [facility] [address] [place] [address] Dr. Vivian Fall Hemoglobin (Bld) [Mass/Vol] 12.2 g/dL Normal 12.0-16.0 [facility] Comment on above: Performed By: #### C BC #### [facility] [address] [place] [address] Dr. Vivian Fall IG # 0.08 10e3/ul Critically high 0.00-0.03 [facility] Comment on above: Performed By: #### C BC #### [facility] [address] [address] [address] Vivian Fall IG % 1.3 % Critically high 0.0-0.5 [facility] Comment on above: Performed By: #### C BC #### [facility] [address] [place] [address] Dr. Vivian Fall LYMPH # 0.3 103/ul Critically low 1.2-3.8 [facility] Comment on above: Performed By: #### C BC #### [facility] [address] [place] [address] Dr. Vivian Fall Lymphocytes/100 WBC (Bld) 4.2 % Critically low 20.5-60.0 [facility] Comment on above: Performed By: #### C BC #### [facility] [address] [place] [address] Dr. Vivian Fall MANUAL DIFF REQ NO Normal [facility] Comment on above: Performed By: #### C BC #### [facility] [address] [place] [address] Dr. Vivian Fall MCH (RBC) [Entitic mass] 29.2 pg Normal 26.7-34.0 [facility] Comment on above: Performed By: #### C BC #### [facility] [address] [place] [address] Dr. Vivian Fall MCHC (RBC) [Mass/Vol] 33.7 g/dL Normal 29.9-35.2 [facility] Comment on above: Performed By: #### C BC #### [facility] [address] [place] [address] Dr. Vivian Fall MCV (RBC) [Entitic vol] 86.6 fL Normal 81.0-99.0 [facility] Comment on above: Performed By: #### C BC #### [facility] [address] [place] [address] Dr. Vivian Fall MONO # 0.2 103/ul Critically low 0.3-0.8 [facility] Comment on above: Performed By: #### C BC #### [facility] [address] [place] [address] Dr. Vivian Fall Monocytes/100 WBC (Bld) 3.5 % Normal 1.7-12.0 [facility] Comment on above: Performed By: #### C BC #### [facility] [address] [place] [address] Dr. Vivian Fall NEUT # 5.7 103/ul Normal 1.4-6.5 [facility] Comment on above: Performed By: #### C BC #### [facility] [address] [place] [address] Dr. Vivian Fall Neutrophils/100 WBC (Bld) 90.8 % Critically high 43.0-75.0 [facility] Comment on above: Performed By: #### C BC #### [facility] [address] [place] [address] Dr. Vivian Fall Platelet mean volume (Bld) [Entitic vol] 9.8 fL Normal 9.5-13.5 [facility] Comment on above: Performed By: #### C BC #### [facility] [address] [place] [address] Dr. Vivian Fall PLT 224 103/ul Normal 150-450 [facility] Comment on above: Performed By: #### C BC #### [facility] [address] [place] [address] Dr. Vivian Fall RBC 4.18 106/ul Critically low 4.20-5.40 [facility] Comment on above: Performed By: #### C BC #### [facility] [address] [place] [address] Dr. Vivian Fall WBC 6.3 103/ul Normal 4.0-11.0 [facility] Comment on above: Performed By: #### C BC #### [facility] [address] [place] [address] ABD/PELVIS WO CONon [...] ANASTACIO BARBOZA Date: 2022-06-29 11:26 Normal [facility] CULTURE BLOODon 06-29-2022 Microscopic examination of blood, culture Culture Observations: NO GROWTH AT 5 DAYS. Isolate 1 BC_BA_NA Normal [facility] Comment on above: Performed By: #### P TT, PT #### [facility] [address] [place] [address] Dr. Vivian Fall Microscopic examination of blood, culture Culture Observations: NO GROWTH AT 5 DAYS. Isolate 1 BC_BA_NA Normal [facility] Comment on above: Performed By: #### P TT, PT #### [facility] [address] [place] [address] Dr. Vivian Fall CULTURE URINEon 06-29-2022 CULTURE URINE Culture Observations : NO GROWTH. Normal [facility] Comment on above: Performed By: #### P TT, PT #### [facility] [address] [place] [address] Dr. Vivian Fall Covid-19 PCR (CVDTBH)on 06-03 SARS-CoV-2 (COVID-19) RNA JONY+probe Ql (Unsp spec) Not detected Normal NOT DETECTED [facility] Comment on above: Result Comment: When diagnostic [...] for this test is supported by the Director Of Strategic Communications of Health and Human Service's declaration that [...] used). Performed By: #### C VDTBH #### [facility] [address] [place] [address] Dr. Vivian Fall ER URINE PROFILEon 3 Bilirubin Ql (U) SMALL Abnormal NEGATIVE [facility] Comment on above: Performed By: #### P TT, PT #### [facility] [address] [place] [address] Dr. Vivian Fall Clarity (U) CLEAR Normal CLEAR [facility] Comment on above: Performed By: #### P TT, PT #### [facility] [address] [address] [address] Vivian Fall Color (U) DK. YELLOW Normal YELLOW [facility] Comment on above: Performed By: #### P TT, PT #### [facility] [address] [place] [address] Dr. Vivian LANGE A micrscopic examina tion will be performed if indicated. Normal [facility] Comment on above: Performed By: #### P TT, PT #### [facility] [address] [place] [address] Dr. Vivian Fall Glucose Ql (U) Negative Normal NEGATIVE [facility] Comment on above: Performed By: #### P TT, PT #### [facility] [address] [place] [address] Dr. Vivian Fall Hemoglobin Ql (U) TRACE-INTACT Abnormal NEGATIVE [facility] Comment on above: Performed By: #### P TT, PT #### [facility] [address] [place] [address] Dr. Vivian Fall Ketones Ql (U) Negative Normal NEGATIVE [facility] Comment on above: Performed By: #### P TT, PT #### [facility] [address] [place] [address] Dr. Vivian Fall LEUKOCYTES Negative Normal NEGATIVE [facility] Comment on above: Performed By: #### P TT, PT #### [facility] [address] [place] [address] Dr. Vivian Fall Nitrite Ql (U) Negative Normal NEGATIVE [facility] Comment on above: Performed By: #### P TT, PT #### [facility] [address] [place] [address] Dr. Vivian Fall pH (U) 6.0 [pH] Normal 5-9 [facility] Comment on above: Performed By: #### P TT, PT #### [facility] [address] [place] [address] Dr. Vivian Fall Protein (U) [Mass/Vol] 100 mg/dL Abnormal NEGATIVE/ TRACE [facility] Comment on above: Performed By: #### P TT, PT #### [facility] [address] [place] [address] Dr. Vivian Fall SPEC GRAVITY >=1.030 Abnormal 1.005-<=1.02 5 [facility] Comment on above: Performed By: #### P TT, PT #### [facility] [address] [place] [address] Dr. Vivian Fall UR MICRO IND INDICATED Normal [facility] Comment on above: Performed By: #### P TT, PT #### [facility] [address] [place] [address] Dr. Vivian Fall Urobilinogen Qn (U) 1.0 {Nia'U}/dL Normal 0.2 - 1.0 [facility] Comment on above: Performed By: #### P TT, PT #### [facility] [address] [place] [address] Dr. Vivian Fall LACTATE/LACTIC ACIDon 2022 Lactate [Moles/Vol] 1.3 mmol/L Normal 0.4-1.9 [facility] Comment on above: Performed By: #### L ACT #### [facility] [address] [place] [address] Dr. Vivian Fall Lactate [Moles/Vol] 3.1 mmol/L Critically high 0.4-1.9 [facility] Comment on above: Performed By: #### L ACT #### [facility] [address] [place] [address] Dr. Vivian Fall LIPASEon 06-29-2022 Lipase [Catalytic activity/Vol] 88.0 U/L Normal 73.0-393.0 [facility] Comment on above: Performed By: #### L IPA #### [facility] [address] [place] [address] Dr. Vivian Fall PROF 14(COMP METB)on 023 Albumin [Mass/Vol] 3.4 g/dL Normal 3.4-5.0 [facility] Comment on above: Performed By: #### C MP, HSTROPN, BNP #### [facility] [address] [place] [address] Dr. Vivian Fall Albumin/Globulin [Mass ratio] 0.9 {ratio} Normal [facility] Comment on above: Performed By: #### C MP, HSTROPN, BNP #### [facility] [address] [place] [address] Dr. Vivian Fall ALP [Catalytic activity/Vol] 145 U/L Critically high 46-116 [facility] Comment on above: Performed By: #### C MP, HSTROPN, BNP #### [facility] [address] [place] [address] Dr. Vivian Fall ALT [Catalytic activity/Vol] 454 U/L Critically high 14-59 [facility] Comment on above: Performed By: #### C MP, HSTROPN, BNP #### [facility] [address] [place] [address] Dr. Vivian Fall Anion gap [Moles/Vol] 15.7 mmol/L Normal [facility] Comment on above: Performed By: #### C MP, HSTROPN, BNP #### [facility] [address] [place] [address] Dr. Vivian Fall AST [Catalytic activity/Vol] 404 U/L Critically high 15-37 [facility] Comment on above: Performed By: #### C MP, HSTROPN, BNP #### [facility] [address] [place] [address] Dr. Vivian Fall Bilirubin [Mass/Vol] 1.4 mg/dL Critically high 0.2-1.0 [facility] Comment on above: Performed By: #### C MP, HSTROPN, BNP #### [facility] [address] [place] [address] Dr. Vivian Fall Calcium [Mass/Vol] 8.7 mg/dL Normal 8.5-10.1 [facility] Comment on above: Performed By: #### C MP, HSTROPN, BNP #### [facility] [address] [address] [address] Vivian Fall Chloride [Moles/Vol] 94 mmol/L Critically low 98-107 [facility] Comment on above: Performed By: #### C MP, HSTROPN, BNP #### [facility] [address] [place] [address] Dr. Vivian Fall CO2 [Moles/Vol] 22.0 mmol/L Normal 21.0-32.0 [facility] Comment on above: Performed By: #### C MP, HSTROPN, BNP #### [facility] [address] [place] [address] Dr. Vivian Fall Creatinine [Mass/Vol] 1.30 mg/dL Critically high 0.55-1.02 [facility] Comment on above: Performed By: #### C MP, HSTROPN, BNP #### [facility] [address] [place] [address] Dr. Vivian Fall EGFR-AF FAROESE 50 mL/min/1.73m2 Critically low >=60 [facility] Comment on above: Performed By: #### C MP, HSTROPN, BNP #### [facility] [address] [place] [address] Dr. Vivian Fall EGFR-NON AF FAROESE 41 mL/min/1.73m2 Critically low >=60 [facility] Comment on above: Performed By: #### C MP, HSTROPN, BNP #### [facility] [address] [place] [address] Dr. Vivian Fall Globulin (S) [Mass/Vol] 3.7 g/dL Normal [facility] Comment on above: Performed By: #### C MP, HSTROPN, BNP #### [facility] [address] [place] [address] Dr. Vivian Fall Glucose [Mass/Vol] 166 mg/dL Critically high 74-106 [facility] Comment on above: Performed By: #### C VERONIKA HSTROPN, BNP #### [facility] [address] [address] [address] Vivian Fall Potassium [Moles/Vol] 3.7 mmol/L Normal 3.5-5.1 [facility] Comment on above: Performed By: #### C VERONIKA HSTROPN, BNP #### [facility] [address] [address] [address] Vivian Fall Protein [Mass/Vol] 7.1 g/dL Normal 6.4-8.2 [facility] Comment on above: Performed By: #### C VERONIKA HSTROPN, BNP #### [facility] [address] [place] [address] Dr. Vivian Fall Sodium [Moles/Vol] 128 mmol/L Critically low 136-[address] [facility] Comment on above: Performed By: #### C VERONIKA, HSTROPN, BNP #### [facility] [address] [address] [address] Vivian Fall Urea nitrogen [Mass/Vol] 15.0 mg/dL Normal 7.0-18.0 [facility] Comment on above: Performed By: #### C VERONIKA HSTROPN, BNP #### [facility] [address] [place] [address] Dr. Vivian Fall Urea nitrogen/Creatinin e [Mass ratio] 11.5 mg/mg Normal [facility] Comment on above: Performed By: #### C MP, HSTROPN, BNP #### [facility] [address] [place] [address] Dr. Vivian Fall PROTIMEon 06-29-2022 INR Coag (PPP) [Relative time] 1.08 {INR} [facility] Comment on above: Performed By: #### P TT, PT #### [facility] [address] [place] [address] Dr. Vivian Fall INR GUIDELINES SEE BELOW Normal [facility] Comment on above: Result Comment: DEEJAY RED INR: 2.0 - 3.0 CONDITIONS NOT LISTED BELOW 2.5 - 3.5 FOR PROSTHETIC HEART VALVE REPLACEMENT 2.5 - 3.5 RECURRENT THROMBOSIS Performed By: #### P TT, PT #### [facility] [address] [place] [address] Dr. Vivian Fall PT Coag (PPP) [Time] 11.4 s Normal 9.0-11.6 [facility] Comment on above: Performed By: #### P TT, PT #### [facility] [address] [place] [address] Dr. Vivian Fall PTTon 06-29-2022 aPTT Coag (Bld) [Time] 32.2 s Normal 22.3-36.2 [facility] Comment on above: Performed By: #### P TT, PT #### [facility] [address] [place] [address] Dr. Vivian Fall TROPONIN, HIGH SENSITIVITYon 06-29-2022 HSTROP 5.8 pg/mL Normal 4.0-51.3 [facility] Comment on above: Result Comment: CUT- OFF POINTS HAVE BEEN ESTABLISHED BASED ON THE FOURTH UNIVERSAL DEFINITIONS OF MYOCARDIAL INFARCTION. THE UPPER REFERENCE LIMIT (URL) OF TROPONIN, DEFINED THE 99TH PERCENTILE OF cTnI DISTRIBUTION IN A REFERENCE POPULATION, HAS BEEN CONFIRMED THE DECISION THRESHOLD FOR OR DIAGNOSIS. Performed By: #### C MP, HSTROPN, BNP #### [facility] [address] [place] [address] Dr. Vivian Fall URINE MICROSCOPIC ONLYon BACTERIA SMALL Abnormal NONE SEEN [facility] Comment on above: Performed By: #### P TT, PT #### [facility] [address] [place] [address] Dr. Vivian Fall Bacteria identified Cx Nom (U) INDICATED Normal [facility] Comment on above: Performed By: #### P TT, PT #### [facility] [address] [place] [address] Dr. Vivian Fall CAST NONE SEEN Normal NONE SEEN [facility] Comment on above: Performed By: #### P TT, PT #### [facility] [address] [place] [address] Dr. Vivian aFll Crystals LM Nom (Urine sed) NONE SEEN Normal NONE SEEN [facility] Comment on above: Performed By: #### P TT, PT #### [facility] [address] [place] [address] Dr. Vivian Fall Epithelial cells LM Ql (Urine sed) FEW Abnormal NONE SEEN /RARE [facility] Comment on above: Performed By: #### P TT, PT #### [facility] [address] [place] [address] Dr. Vivian Fall MUCOUS SMALL Abnormal NONE SEEN [facility] Comment on above: Performed By: #### P TT, PT #### [facility] [address] [place] [address] Dr. Vivian Fall RBC 0-2 Normal 0-2 [facility] Comment on above: Performed By: #### P TT, PT #### [facility] [address] [place] [address] Dr. Vivian Fall WBC 0-2 Abnormal NONE SEEN [facility] Comment on above: Performed By: #### P TT, PT #### [facility] [address] [place] [address] Dr. Vivian Fall XR CHEST 1 Von 06-29-2022 XR CHEST 1 V EXAM: XR CHEST 1 V HISTORY: Altered mental status COMPARISON: None. TECHNIQUE: Frontal view of the chest. FINDINGS: No focal consolidations or pleural effusions. Cardiomegaly. Thoracic spine spondylosis. IMPRESSION: No acute disease. Cardiomegaly. Electronically authenticated by: ZEYAD SOFIA Date: 2022-06-29 10:38 Normal [facility] Office Visit (Cardiology)on 06-01-2022 Follow-up visit Diagnoses/Problems Assessed Abnormal echocardiogram (793.2) (R93.1) Never a smoker Hypothyroidism (244.9) (E03.9) Added by Problem List Migration; 2013-02-28; Moved to [facility] Mar 24 2013 9:03PM Hyperlipidemia (272.4) (E78.5) [...] Social H (more content not included)... Normal [employer] Tobacco Screening.on 023 Adult depression screening assessment No -[facility] [address] DO Work Phone: Fall risk assessment a) No falls within the last year [facility] [place] 250 DO Work Phone: Tobacco use status [facility] b) No [facility] [place] 250 DO Work Phone: ECHOCARDIO M/2D COMPLETEon 0 05-11-2022 ECHOCARDIO M/2D COMPLETE Patient: BETH DONOVAN Exam Date: 05/11/2022 : 1955 Gender:F Ordering : DR MIKALA SINGH Admission #: [id number] Family : Order #: [id number] CLICK HERE TO VIEW EXAM ECHOCARDIOGRAM REPORT [...] Alarcon M.D. on 05/13/2022 at 10:52 Normal [facility] MG MAMM SCREEN 3D ALFA CADon 05-11-2022 MG MAMM SCREEN 3D ALFA CAD Patient: BETH DONOVAN Exam Date: 05/11/2022 : 1955 Gender:F Ordering : DR MIKALA SINGH Admission #: [id number] Family : Order #: [id number] CLICK HERE TO VIEW EXAM RADIOLOGY REPORT [...] kidney cancer at age 52. LOCATION: [facility] BREAST COMPOSITION: Almost entirely fatty. FINDINGS: DIAGNOSTIC [...] M.D. on 05/11/2022 at 14:26 Normal [facility] Established Visit (Otolaryng ology)on 02-09-2022 Established Visit [...] Allergies No Known Drug Allergies Recorded By: Luaan Cox; 04/09/2013 12:10:16 PM Current Meds Medication NameInstruction Ativan 0.5 MG Oral Tablet Effexor 75 MG TABS Levothyroxine Sodium 100 MCG Oral Tablet Omeprazole 20 MG Oral Capsule Delayed ReleaseTAKE ONE CAPSULE BY MOUTH TWICE A DAY risperiDONE 2 MG Oral Tablet Simvastatin 40 MG Oral Tablet Synthroid 25 MCG Oral Tablet Vitals Vital Signs Recorded: 09Feb2022 03:01PM Height5 ft 4 in Lxmdqr082 lb BMI Janhfejckb71.35 kg/m2 BSA Calculated2.22 Tobacco Useb) No Falls [...] assessment c) Not medically indicated [facility] Work Phone: Tobacco use status CP b) No [facility] Work Phone: Coding Summary.on 05-18-2021 Coding Summary. [id number] Gh0bWw +PGhlYWQ+BH9GORAxA44hnNUdz M6XK0kOFT2ZHSNQRLHBMU2MEP9 tlPU4EHwbG0IeyzDz QhldzQEsPF22KZu6POR1dJxbQW pfpM3gqQHeF9c7ZlTxZV92fN30 FDbvSCGyPfQ4IyXusabnzRFi W1ogGxBajUVcHox+PHRhYmxlIH zgLXZiTXdxUSBxRkUxfJhdNQ6c Vg3pTOQlQIScaPpiyMRdSoNj z6bzMPLxHLjaCA8hwSltS9OeaO C9CWRwq3r8Ff50bWU+PHRkIHN0 zYlkBTkek860RtDqo1ziBAY6 nIRsRIphZSX6U60so8G0SHRaDP GgBRD0cZK3kA2lbArdpapzJ4Za jZUyVgZ2CSQ8fEJpjY5jfWvo xtorwF7dSsu+U39BFY9GLQDDQA 4CGtj7N4PjLduapQP+AJ96ZFFl JG97rTLtiEEre1yvrXc7HuIf GJViPJE4oCoqCWgsb4ErEBKgJ2 7unDPwu4J1XETnyQeiaMIlRyQw pGM9wA7cIAiwltgex8xeclgu Yahkx3xebp78fX95F54oEGrzOR WmSIZ3OVFlVOGtwNgjob1mkN2m Ii8+ZZvnj4wik7slvEm1NnBj ZGWfgiSabJhcEXH7d8VfBv44R1 KgvUjzl7SyExp2hx52mJOjf9Y0 fPA6OMiqBFYxbX7fLKdrBrD3 VFOnYqLzrG90lBJhBVsgSg2yiH ddwZqmDR1hSBJjswwvQSFdiQ2k KVOjmAFjpGwyTD6qUQJyuwuy c508AeRpCKP8TAEiuKXmX2EqlQ 2kLhRpJKLuSZSuT4FobZTqSAzd W752WXiiBsY9VXHuywYbX2Sp LNJhtNpsHuJ6w8D7Iz8Cg6Ptql czKPC4YEtcXWNqYaR2RhUdJpR8 A2ZaXgt5XCNfqJoePO0tB9Le WCTxqhqccgynoAQ4LBXeMKLqjL 06kNWvDZjbUg4oy3H3r285GLIq GGIwsZ26Wl4evCrnQSCyoABS aF7tgzzyp8guqwptCcMtRDQaJN j0LKv7DADtyGqhMcIhQQN0IdU1 MTO9cFNdrC3hhAiphqijvK2u Oyc+K93fvX5tHFA5YFM2vtzcBT GjeiHrBM93IJ81O1FkUdaluEUv bGU+TWWqcpNnhLnsJZ9qElMx i3kpx5RvDDgkW4OfUMHdSYdcYz n6FIOxKBR1yBW1vV0dRPOoITac z2W2yMQ1Z3SsedEkha7gz5wc VIXzQAebY78vrHUiv6J2XJZbqI I5VCTobJgkCyAmnT50Ojh+PGNv eYycg5YkZzvck7inc3wcdDl2 AtFfJJSnxrUdqUcqQQB2z1VvUf 52Z68kVMkiPSEcZNEtDBIxRXNn wPozbd1cqA7qYk1+PGNvbCB3 zIU0fS3yQSFxYgW8ROobD275Fm EwsXOzDqghn9ybw5uktCt4EcKl VXBhcvLziFhoAJQ4b3KlUb16 Z98fFEdtANOsSJBcEBVaTAIrgF atnb1buS3lBx3+XV5jl8nqwm54 aT94zLT+CKZgRDX4ePyoRVyh NXUdlX0zDCrhHlC0SQPlHaFehA 39sGGlCDswPz2gnGzjnGdcJD1x IONipqlth839FdNae4leRQVk nUZiJCacNRQ4B58ru0Z3MBVeRW QsSBZ7wDG1qG8cmXkzledtvMPl rKerbfJmbWwvAHnmZBdcX510 IHRvcDsnPlBhdGllbnQgTmFtZT z6P5MyDsy0HFAvhDqbFS9otOGl SGejYw2ocAdklFqdXQ9oNJRh vpgyj321NeGfo0zkFEJqsFPvTC ijRKH9Y44tb8L4RKTxGBLfETX9 zKI2mD1poVwtpiehcHIefCtv nnAshJjyDSfjLCncP875MVQggG mcEdRktmVkXCQoxAH4QP75TU75 rWXil7S2nKK2T3JqESJpokdb cblguRJ2TPNzQGGitK39Ji0tvQ ajKm6hRTOrXWL2GDHomPVlA8Yl kY1uWdWhSXCsSQFyO7EzlEIs GFdxM525FVonKoA5ZYGsjdOsU6 HnNUTtjAmeJeN8h2N1Gl9UL0W8 JL46AS87dOVyi1S8uTS0G6Xf LJWanwlpiqnqvBA6RBVuIABswN 87Fh2ziCekVl3kWIKcUGM6IVWr iKIuS4NueZ9zCbHgYSThPKLd B0OvtKZkYAayE115GInqOwX1AE VjxcRjH6WaQMQvlJboNoL8s8Q4 Sm3PTQk4IM65AB46dPBmy0B8 hXD5K1EiCEAmiygcrqhhcUJ8KZ OdCJZtuK43Lx3ooUcdVa2oDEYf RCT9NHGmkOGxE4OreD3tVlJk MOGuVXZcA5IodZWmQJkpF854XF fuVnD0BLMvvyOaF6ElIJNmpXcb NlS5u2L1Gd7XMNWbMZ27UAH4 vBD2DM62CZ44R6MrGjleuZZeyM U+PHRhYmxlIHdpZHRoPScxMDAl JgYadSqkXJ5gRk3hSIMxKLUw cJavyKSwIhLgs6uySHWpZHfrRW 0wkQzvN3OjmTT2TBFpr4y4Ct93 G79wF7GfcHH+RRRqsPM9lIX8 zZ9wSiZrOdJ7YQqjC562EyRrfL WcRztmb6aul5egmHl2LcO2KMHj wkWayBxgGRT4l5NuIp63K92m IHdpZHRoPSIxNSUiIHZhbGlnbj 8iqS1bDa4+GIUzpFU9cBC5bU4u BuAoZqC6TXubZ934ZjOrqHLj Exqyx3stn5pkqPf2QcIoBSJyar WawQobVER9n8OrHw69E4GysDjv m5HdGby3kt09eUFfw1F7tGN5 G7JxHEHwdvnxoBKjeUdcAB7rAC BgivkxEYPjhP0aDDOjH6m5GeYl FkX0HWoxQ5BjgvT6XFLiwMPp MHcgKDR5O91jo7Q9TKNwABSzYO T7eFW0jD3wqYfzrhteuDVbbYxv nnTnnKjfOGgcSKypN357STGo xVwiJYNlzT6xJIVccOMccWhbLL 4wNTBpbjsnPkdJVFRJTkdFUiwg YT9PSEI6E4XmHzh0SQCnzDmn KE1thIAuXPoiXb8toZjshXjvPJ 2qHPWnfuloAOHcfX4lDALorMZf yPkzOW3lYLPkwruky589SwJn LXT9SISsaESpS7KtkY3uEcAyIK AgDYAiH0NzxPZeAUocB291WJsh AuV2UZDytaNgY0MfVUNzrKxo FdE8m5I9Xr4cEM5qDH4jCAF1DH 59YE47tIMpq5T9dDG0Y6OnAMPb zozqcxrqeZO0QVFhVHGxnL74 sREeGFatKm7ry1F6d004ZOMsND OwaK28Co5beWelLLBfqDYTlJ7c nhtxf7hibpczGoMcFDMhKNg2 ISh8SPCcpYvkVyAoNZM0LlA3VV L2hVLvpB4ipOnmgbjbtM1qImf+ NiLdQYNibgN5A9IjOlu7UCAh gKjzYC9mkBEaCXolSk4ulTyjhA jcRL1nVEUjejkpMRTsyF1tYFBv cZBuxWyfOF3hATFyuenmw684 FcLeYVD8CIUayPLbQ7TahF4vZu XvNNAePSPzV3MsvDCzUHthN426 GFgvJxN2NGNrwtLoA8IgOATa xAkvVdS8v2H8Nn5WLM6vaNN6T0 PcBlg4EKOtpXcyOY2nwWQyGSew Ki0xgQovxPheGA8bDMRlttcp TQDzhA6vAOCkyHQgrQcdOK8uNC Lfdvzmu192HxDtLDO6GUZceBUv V0HqhU3zKzTsATUjJPWzO6Hd dGSsGOenN733NRtwGsO3FXXskw DdL4PdZMTxvPyrFfK8o8A7Fz8J UOA4hyFmxsc8V3KtMsxjcPT+ SN66ONZyGZ78wINwhPRmm1byfM b8UlVmQIFcAZP9aGfxGWrbe5Zr NDXsH75feORuj8H8UXTwmVph nEBeUnLskZT5nX1cXFitlhvxq5 ifednsEuovb7coyz99jT42T28p IHdpZHRoPSIzMCUiIHZhbGln vg9sxQ3sQf9+KXHikED9qOX5cL 0nRsSsTqN1NMgnQ465XzKsuBUm Kfctj3qod9labGp1JtGpPKEv uxZejYzuCUV1u1PzKc65B81cVE nqEZXqNULgIJFzYCKzqHrorr4x hS9bCs5+CC0ox8tefa80rR15 dHI+LEPbTHC4fBwyRPutDOGquE 4tTBkoByG3GLGlVvRgtD83gUBp KLvaFg4sjLxwiDuiWL0mHDZx povib727PlEfd7ilBWPiyNBmDO poDLU8G31mu6I8VRLcKLHxJRO9 wQV1tZ8moIdnsffweEUyuTkd pgHdhBcjYEivKYmbR205EHAupJ pwFwWkzOEtR1pkixWAAT5iEajd dGQ+ZXWrKSJ8kJqcUTxiLBXa qB8lDYWqA5y7WxCzUgC1KMcfK5 RfvzF8HOVdoFLtDCVisJMFrU1d vpdtl5inewihLcOzKVQxWHb8 SNc7LEDtsItoHkPdJWV7ShX8LH D0hLUivH7tpGoovtyfhV3kJey+ RklOOjwvdGQ+BXMxCCA7uGoc VBepNPLtqV0lBEWjX9s6HfDzNv P3BCozT9SlbkZ9NXVnfKNkOQSx wPWZnV4qhexoo7xfvxlrMhHe UZQkGIs4HFl6CKVzwEzdAuLmGI I8NnZ0KRD8yCGqqS5utUzssjkd pX9xLcy+TVJOOjwvdGQ+PHRk HLG2pOlqGFthVOEjtQ9rCOYqC1 r8PhWyAnJ4RTaxQ2QrjiO3VISy bEFcVRWpgPUKcK2fcfyop6dt uijiIzOoMBDxMJe8HNk3GZFfvI atNyKvXVG1YlJ2ILT6qEGwpZ6x lZgcihzcqC7nDqf+NNP2QVT0 DU96DV50Y4IkZqfhsOVrpMV+PH RhYmxlIHdpZHRoPScxMDAlJyBz oSowQG7oLc0tAQLcGKFibIsc cHNl (more content not included)... Normal [facility] Priority Order-Les 2021 Priority Order-STAT Comment Invalid Interpretation Code [facility] Comment on above: Result Comment: Rece ived Performed at: [facility] [id number] PhD Anita Hughes Performed By: #### S ARS-CoV-2, JONY, [id number] #### [facility] [address] [place] [address] SARS-CoV-2, NAAon 05-16-2021 SARS-CoV-2 (COVID-19) RNA JONY+probe Ql (Resp) Not detected Invalid Interpretation Code Not Detected [facility] Comment on above: Result Comment: This nucleic acid amplification test was developed and its performance characteristics determined by [employer]. Nucleic acid amplification tests include RT-PCR and [...] detected) result in this assay. Performed at: [address] [id number] PhD Anita Hughes Performed By: #### S ARS-CoV-2, JONY, [id number] #### [facility] [address] [place] [address] Consent for Treatmenton 05-02 Consent for Treatment [id number]:127 Normal [facility] Reference Laboratory Testing Ordered By: [facility] on 05-15-2021 SARS-CoV-2 (COVID-19) RNA JONY+probe Ql (Resp) Not detected Invalid Interpretation Code Not Detected [facility] Comment on above: Result Comment: This nucleic acid amplification test was developed and its performance characteristics determined by [employer]. Nucleic acid amplification tests include RT-PCR and [...] detected) result in this assay. Performed at: [facility] [id number] PhD Anita Hughes Tobacco Screening.on 021 Fall [...] make patient management decisions.Fact sheet for providers: https://www.fda.gov/media/972567/downloadFact sheet for patients: https://www.fda.gov/media/646597/downloadThis test has received FDA Emergency Use Authorization (EUA) and has been verified by [facility] ([facility]). This test is only authorized for the duration of time that circumstances exist to justify the authorization of the emergency use of in vitro diagnostic tests for the detection of SARS-CoV-2 virus and/or diagnosis of COVID-19 infection under section 564(b)(1) of the Act, 21 U.S.C. 360bbb-3(b)(1), unless the authorization is terminated or revoked sooner. [facility] is certified under CLIA-88 as qualified to perform high complexity testing. Testing is performed in the [facility] laboratories located at [address] [place] [address] [place] [address]. Laboratory - Blood bankon ABO group Nom [...] Calcium [Mass/Vol] 9.3 mg/dL 8.6 - 10.6 [facility] [facility] Work Phone: 41 Chloride [Moles/Vol] 102 mmol/L 98 - 107 [facility] [facility] Work Phone: [phone] CO2 [Moles/Vol] 28 mmol/L 21 - 32 [facility] [facility] Work Phone: 41 Creatinine [Mass/Vol] 0.77 mg/dL See Below [facility] [facility] Work Phone: [phone] Comment on above: Reference Range: 0.5 0 - 1.05 Glucose [Mass/Vol] 95 mg/dL 74 - 99 [facility] [facility] [facility] Work Phone: 41 Potassium [Moles/Vol] 5.2 mmol/L 3.5 - 5.3 [facility] [facility] Work Phone: 41 Sodium [Moles/Vol] 138 mmol/L 136 - 145 [facility] [facility] [facility] Work Phone: 41 Urea nitrogen [Mass/Vol] 19 mg/dL 6 - 23 [facility] [facility] Work Phone: Laboratory - Hematology and Cell countson 03-13-2021 Erythrocyte distribution width (RBC) [Ratio] 12.8 % See Below [facility] [facility] Work Phone: [phone] Comment on above: Reference Range: 11. 5 - 14.5 Hematocrit (Bld) [Volume fraction] 38.6 % See Below [facility] [facility] Work Phone: [phone] Comment on above: Reference Range: 36. 0 - 46.0 Hemoglobin (Bld) [Mass/Vol] 11.8 g/dL below low threshold See Below [facility] [facility] Work Phone: Comment on above: Reference Range: 12. 0 - 16.0 MCHC (RBC) [Mass/Vol] 30.6 g/dL below low threshold See Below [facility] [facility] Work Phone: [phone] Comment on above: Reference Range: 32. 0 - 36.0 MCV (RBC) [Entitic vol] 96 fL 80 - 100 [facility] [facility] Work Phone: [phone] Platelets (Bld) [#/Vol] 325 10*3/uL 150 - 450 [facility] [facility] Work Phone: [phone] RBC (Bld) [#/Vol] 4.01 {x10E12/L} See Below [facility] Work Phone: [phone] Comment on above: Reference Range: 4.0 0 [...] Work Phone: 41 [email or web address]?R [email or web address]?Nicole xrfSK=[id number]&Date=04-11&Time=10%3a52%3a43%3a 00&TestType=ECG&Site=1&Out putType=PDF&Ext=PDF [facility] [facility] Work Phone: [...] 40 1 [facility] [facility] Work Phone: [phone] [facility] [facility] Work Phone: [phone] [facility] [facility] Work Phone: [phone] [facility] Work Phone: [phone] [facility] Work Phone: [phone] [facility] Work Phone: [phone] [facility] [facility] Work Phone: [phone] [facility] [facility] Work Phone: CT Chest without Contraston 03-03-2021 CT Chest WO contrast Normal [facility] [facility] Work Phone: Tobacco Screening.on 021 Fall risk assessment a) No falls within the last year [facility] [facility] Work Phone: Tobacco use status [facility] b) No [facility] [facility] Work Phone: Tobacco Screening.on 021 Fall risk assessment c) Not medically indicated [facility] [facility] Work Phone: Tobacco use status CP b) No [facility] [facility] Work Phone: Vital Signs Date Time Vital Sign Value Performing Clinician Facility 02-22-2023 14:36-0400 Body height 163.8 cm Ronnie Murphy MD Work Phone: [facility] 02-22-2023 14:36-0400 Body mass index (BMI) [Ratio] 43.09 kg/m2 Ronnie Murphy MD Work Phone: [facility] 02-22-2023 14:36-0400 Body weight 115.67 kg Ronnie Murphy MD Work Phone: [facility] 02-15-2023 13:00-0400 Body height 165.1 cm Nikki Manning Other [facility] Other 02-15-2023 13:00-0400 Body mass index (BMI) [Ratio] 42.16 kg/m2 Nikki Fitt Other [facility] Other 02-15-2023 13:00-0400 Body weight 114.94 kg Nikki Fitt Other [facility] Other 02-01-2023 10:15-0400 Body height 165.1 cm Lilliam Scally Other [facility] Other 02-01-2023 10:15-0400 Body mass index (BMI) [Ratio] 42.2 kg/m2 Lilliam Scally Other [facility] Other 02-01-2023 10:15-0400 Body weight 115.03 kg Lilliam Scally Other [facility] Other 02-01-2023 10:15-0400 Diastolic blood pressure 78 mm[Hg] Lilliam Scally Other [facility] Other 02-01-2023 10:15-0400 Respiratory rate 20 /min Lilliam Scally Other [facility] Other 02-01-2023 10:15-0400 SaO2% (BldA) [Mass fraction] 96 % Lilliam Scally Other [facility] Other 02-01-2023 10:15-0400 Systolic blood pressure 130 mm[Hg] Lilliam Scally Other [facility] Other 12-22-2022 13:00-0400 Body height 165.1 cm Nikki Fitt Other [facility] Other 12-22-2022 13:00-0400 Body mass index (BMI) [Ratio] 41.73 kg/m2 Nikki Fitt Other [facility] Other 12-22-2022 13:00-0400 Body weight 113.76 kg Nikki Fitt Other [facility] Other 10-19-2022 10:15-0400 Body height 165.1 cm Lilliam Scally Other [facility] Other 10-19-2022 10:15-0400 Body mass index (BMI) [Ratio] 41.41 kg/m2 Lilliam Scally Other [facility] Other 10-19-2022 10:15-0400 Body weight 112.9 kg Lilliam Scally Other [facility] Other 10-19-2022 10:15-0400 Diastolic blood pressure 72 mm[Hg] Lilliam Scally Other [facility] Other 10-19-2022 10:15-0400 Respiratory rate 18 /min Lilliam Scally Other [facility] Other 10-19-2022 10:15-0400 SaO2% (BldA) [Mass fraction] 96 % Lilliam Scally Other [facility] Other 10-19-2022 10:15-0400 Systolic blood pressure 110 mm[Hg] Lilliam Scally Other [facility] Other 10-19-2022 08:15-0400 Body height 165.1 cm Nikki Fitt Other [employer] Other 07-27-2022 10:45-0400 Body height 165.1 cm Lilliam Scally Other [facility] Other 07-27-2022 10:45-0400 Body mass index (BMI) [Ratio] 41.08 kg/m2 Lilliam Scally Other [facility] Other 07-27-2022 10:45-0400 Body weight 111.99 kg Lilliam Scally Other [facility] Other 07-27-2022 10:45-0400 Diastolic blood pressure 72 mm[Hg] Lilliam Scally Other [facility] Other 07-27-2022 10:45-0400 Respiratory rate 20 /min Lilliam Scally Other [facility] Other 07-27-2022 10:45-0400 SaO2% (BldA) [Mass fraction] 97 % Lilliam Scally Other [facility] Other 07-27-2022 10:45-0400 Systolic blood pressure 109 mm[Hg] Lilliam Scally Other [facility] Other 06-15-2022 09:15-0500 Body height 165.1 cm Nikki Manning Other [employer] Other 06-01-2022 13:03-0500 Body height 163.83 cm Gopi Solis MD Work Phone: [place] [id number] DO Work Phone: 06-01-2022 13:03-0500 Body mass index (BMI) [Ratio] 43.6 kg/m2 Gopi Solis MD Work Phone: [facility] DO Work Phone: 06-01-2022 13:03-0500 Body surface area Derived from formula 2.19 m2 Gopi Solis MD Work Phone: [facility] DO Work Phone: 06-01-2022 13:03-0500 Body weight 117.03 kg Gopi Solis MD Work Phone: [facility] DO Work Phone: 06-01-2022 13:03-0500 Diastolic blood pressure 62 mm[Hg] Gopi Solis MD Work Phone: [facility] DO Work Phone: 06-01-2022 13:03-0500 Heart rate 76 /min Gopi Solis MD Work Phone: [facility] DO Work Phone: 06-01-2022 13:03-0500 Systolic blood pressure 126 mm[Hg] Gopi Solis MD Work Phone: [facility] DO Work Phone: 06-01-2022 12:30-0500 Body height 165.1 cm Lilliam Scally Other [employer] Other 06-01-2022 12:30-0500 Body mass index (BMI) [Ratio] 42.85 kg/m2 Lilliam Scally Other [employer] Other 06-01-2022 12:30-0500 Body weight 116.8 kg Lilliam Scally Other [facility] Other 06-01-2022 12:30-0500 Diastolic blood pressure 70 mm[Hg] Lilliam Scally Other [employer] Other 06-01-2022 12:30-0500 Respiratory rate 20 /min Lilliam Scally Other [facility] Other 06-01-2022 12:30-0500 SaO2% (BldA) [Mass fraction] 97 % Lilliam Scally Other [employer] Other 06-01-2022 12:30-0500 Systolic blood pressure 112 mm[Hg] Lilliam Scally Other [employer] Other 02-09-2022 15:01-0400 Body height 162.56 cm Ronnie Murphy MD Work Phone: [facility] [place] Work Phone: 02-09-2022 15:01-0400 Body mass index (BMI) [Ratio] 46.35 kg/m2 Ronnie Murphy MD Work Phone: KX[facility]Kuadohqypfjpgi[facility] [place] Work Phone: 02-09-2022 15:01-0400 Body surface area Derived from formula 2.22 m2 Ronnie Murphy MD Work Phone: XE[facility]Tovqgjseydzgip[facility] [place] Work Phone: 02-09-2022 15:01-0400 Body weight 122.47 kg Ronnie Murphy MD Work Phone: JV-Iqbrotocqnskqp-[place] [place] Work Phone: 03-31-2021 15:33-0500 Body height 162.56 cm Ronnie Murphy MD Work Phone: RU-Hghpcqrgpstgsq-[place] Work Phone: 03-31-2021 15:33-0500 Body mass index (BMI) [Ratio] 46.52 kg/m2 Ronnie Murphy MD Work Phone: RP-Sqsbgtjcmwukwu-[place]du [place] Work Phone: 03-31-2021 15:33-0500 Body surface area Derived from formula 2.23 m2 Ronnie Murphy MD Work Phone: OT-Sychtilhilvdvo-[facility] [place] Work Phone: 03-31-2021 15:33-0500 Body temperature 97.2 [degF] Ronnie Murphy MD Work Phone: CY-Xtwgweqzphwmdz-[facility]qi [place] Work Phone: 03-31-2021 15:33-0500 Body weight 122.93 kg Ronnie Murphy MD Work Phone: RK-Kmlozbvutfezqo-[facility]qa [place] Work Phone: 03-03-2021 12:52-0400 Body height 162.56 cm Ronnie Murphy MD Work Phone: DK-Mgdazfdsiqdrsv-[place] Work Phone: 03-03-2021 12:52-0400 Body mass index (BMI) [Ratio] 46.35 kg/m2 Ronnie Murphy MD Work Phone: EL-Iswpnfxqccdmyz-Pds [place] Work Phone: 03-03-2021 12:52-0400 Body surface area Derived from formula 2.22 m2 Ronnie Murphy MD Work Phone: GG-Rrzyxvrcwrnbme-[place] Work Phone: 03-03-2021 12:52-0400 Body weight 122.47 kg Ronnie Murphy MD Work Phone: DW-Nheskvfoddkrlm-Jcy [place] Work Phone: 02-10-2021 15:05-0400 Body height 162.56 cm Ronnie Murphy MD Work Phone: DS-Nrwbxutltyyiqy-[facility]za [place] Work Phone: 02-10-2021 15:05-0400 Body mass index (BMI) [Ratio] 46 kg/m2 Ronnie Murphy MD Work Phone: VV-Vieaffsdeifdne-Jst tlake Work Phone: 02-10-2021 15:05-0400 Body surface area Derived from formula 2.22 m2 Ronnie Murphy MD Work Phone: VQ-Xqhqbzfadoyisb-Blv tlake Work Phone: 02-10-2021 15:05-0400 Body temperature 97.4 [degF] Ronnie Murphy MD Work Phone: LG-Fmsgjveldmwphm-Euw tlake Work Phone: 02-10-2021 15:05-0400 Body weight 121.56 kg Ronnie Murphy MD Work Phone: KW-Vkhuipijrtlibn-Zxv tlake Work Phone: Encounters Encounter Date Encounter Type Care Provider Facility Start: 04-13-2023 End: 04-13-2023 ambulatory Lilliam Montejo Other [facility] Other Start: 04-13-2023 Telephone encounter Lilliam Mcbride [facility] Start: 03-18-2023 End: 03-18-2023 ambulatory Lilliam Montejo Other [facility] Other Start: 03-18-2023 Telephone encounter Lilliam Mcbride [facility] Start: 03-15-2023 ambulatory Bello Hilton Facility:[facility] Start: 02-22-2023 End: 02-22-2023 ambulatory [facility] Ambulatory Start: 02-22-2023 End: 02-22-2023 Office outpatient visit 15 minutes Ronnie Murphy MD Work Phone: [facility] Comment on above: Tracheal stenosis (P rimary Dx) Start: 02-15-2023 ([facility] RD FU) 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 WMNI) WMN Init ial Provider Nikki Manning [facility] Start: 12-22-2022 End: 12-22-2022 ambulatory Nikki Manning Other [facility] Other Start: 10-19-2022 [facility] Weight Management f/u Lilliam Montejo [facility] Start: 10-19-2022 End: 10-19-2022 ambulatory Nikki Fitt Other [facility] Other Start: 10-19-2022 IBT FOR OBESITY GROU P 2-10 30M Nikki Ciprianot [facility] Start: 09-02-2022 End: 09-03-2022 ambulatory LILLIAM MONTEJO Facility:[facility] Start: 08-05-2022 End: 08-05-2022 ambulatory Lilliam Montejo Other [facility] Other Start: 08-05-2022 Telephone encounter Lilliam Montejo F [facility] Start: 07-27-2022 (FCCCWMNF/U) Weight Management f/u Lilliam Montejo [facility] Start: 07-27-2022 End: 07-27-2022 ambulatory Lilliam Montejo Other [facility] Other Start: 06-29-2022 End: 06-29-[address] DOCTOR SHANKS Facility:[facility] Start: 06-15-2022 End: 06-15-2022 ambulatory Nikki Fitt Other [facility] Other Start: 06-15-2022 IBT FOR OBESITY GROU P 2-10 30M [facility] Start: 06-01-2022 Office consultation new/estab patient 60 min [facility] Work Phone: Start: 06-01-2022 Office outpatient ne w 45 minutes Goip Solis MD Work Phone: [facility] 250 DO Work Phone: Start: 06-01-2022 (FCCCWMNF/U) Weight Management f/u Lilliam Montejo [facility] Start: 06-01-2022 End: 06-01-2022 ambulatory Bello Hilton II Facility:[id number] Start: 05-17-2022 End: 05-18-[address] DOCTOR SHANKS Facility:[facility] Start: 05-11-2022 End: 05-12-[address] ABDIAS ROMEO Facility:[facility]1 Start: 04-28-2022 Rx Change Luana Cox 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 RONNIE MURPHY Fa cility:[id number] Start: 05-15-2021 End: 08-13-2021 Patient encounter procedure BELLO HILTON [facility] Start: 04-16-2021 Rx Renewal Ronnie Murphy MD Work Phone: GN-Khygmirsrpgizz-Wttm n [place] 4500 Work Phone: Start: 03-31-2021 Office outpatient vi sit 15 minutes Ronnie Murphy MD Work Phone: IW-Ayccvmwrodzbkn-Yqdw lake Work Phone: Start: 03-19-2021 [facility], Provider: Ronnie Murphy, Status: Pen, Time: 9:00 AM Ronnie Murphy MD Work Phone: TR-Fxykuqopiwgkfl-Ogrv man Work Phone: Start: 03-18-2021 Chart Update Ronnie Murphy MD Work Phone: CG-Djessejrbmwszn-Fuyr man Work Phone: Start: 03-04-2021 Chart Update Ronnie Murphy MD Work Phone: PF-Buuewwtkcrscrc-Syih lake Work Phone: Start: 02-11-2021 Telephone encounter Luana Espinosa ndt 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-[employer] Work Phone: BC-Oxiwrivcjxvijp-Ncob rban Work Phone: Start: 02-10-2021 Office outpatient vi sit 15 minutes Ronnie Murphy MD Work Phone: BI-Kflnwlreichacw-Qvfl lake Work Phone: Start: 02-12-2020 Patient encounter procedure Ronnie Ellisu MD-Tawdutrcmqnury-Bbzi rban Work Phone: Start: 08-22-2018 Patient encounter procedure Ronnie Lavkwabenanicholas DE-Bnczldwtktsrum-Zqht n [address]00 Work Phone: Start: 02-28-2018 Patient encounter procedure Ronnie Ellisu WF-Vdfbgckcpihmkm-Suid n [address] 4500 Work Phone: Start: 08-23-2017 Patient encounter procedure Ronnie Ellisu YK-Rmfldvunwvqewf-Aikb n [address]00 Work Phone: Start: 02-22-2017 Patient encounter procedure Ronnie Murphy KG-Dmotvcahzdqhje-Oagf n [address]00 Work Phone: Procedures Date Procedure Procedure Detail Performing Clinician Start: 05-11-2022 Mammography Ronnie mcdowell MD Work Phone: Start: 2019 Total colonoscopy Brigitte Daugherty MD Work Phone: Hernia repair Gopi ovalle MD Work Phone: Operation on breast Gopi Solis MD Work Phone: Plan of Treatment Date Care Activity Detail Author Start: 02-21-2024 End: 02-21-2024 Patient encounter procedure 02/21/2024 1:15 PM EDT Office Visit [facility] [address] [facility] [address] [place] [address] [place] [address] [place] [address] [facility] Start: 05-11-2023 Screening for malignant neoplasm of breast Mammogram [facility] Start: 02-22-2023 FUV, Provider: Ronnie Murphy, Status: Pen, Time: 2:45 PM FUV, Provider: Ronnie Murphy, Status: Pen, Time: 2:45 PM JS-Tqpdovcexnbges-Jfp tlake Work Phone: Start: 12-31-2022 Influenza vaccination Influenza Vaccine (#1) [facility] Start: 08-10-2022 FUV, Provider: Gopi Solis, Status: Pen, Time: 12:50 PM FUV, Provider: Gopi Solis, Status: Pen, Time: 12:50 PM [facility] 250 DO Work Phone: Start: 07-13-2022 REST ONLY, Provider: DI HHVI NUCLEAR 01,[id number], Status: Pen, Time: 12:30 PM REST ONLY, Provider: DI HHVI NUCLEAR 01,[id number], Status: Pen, Time: 12:30 PM [facility]iley 250 DO Work Phone: Start: 07-12-2022 STRESSNUC2, Provider: DI HHVI NUCLEAR 01,[id number], Status: Pen, Time: 12:30 PM STRESSNUC2, Provider: DI HHVI NUCLEAR 01,[id number], Status: Pen, Time: 12:30 PM [facility] 250 DO Work Phone: Start: 07-06-2022 COVID-19 Vaccine (4 - Pfizer series) COVID-19 Vaccine (4 - Pfizer series) [facility] Start: 02-09-2022 FUV, Provider: Ronnie Murphy, Status: Pen, Time: 2:50 PM FUV, Provider: Ronnie Murphy, Status: Pen, Time: 2:50 PM QM-Otfxvlhqaczqet-Xby tlake Work Phone: Start: 03-31-2021 POV, Provider: Ronnie Murphy, Status: Pen, Time: 3:00 PM POV, Provider: Ronnie Murphy, Status: Pen, Time: 3:00 PM VA-Lkbvzrhtybluiw-Gle dman Work Phone: Start: 03-19-2021 [facility]: Ronnie Murphy, Status: Pen, Time: 9:00 AM SUR[facility], Provider: Ronnie Murphy, Status: Pen, Time: 9:00 AM DP-Cewlwbytndduok-Umd tlake Work Phone: Start: 03-03-2021 FUV, Provider: Ronnie Murphy, Status: Pen, Time: 1:00 PM FUV, Provider: Ronnie Murphy, Status: Pen, Time: 1:00 PM RM-Glyuudsxzjnvul-Cho urban Work Phone: Start: 2017 Hepatitis B Vaccines (1 of 3 - Risk 3-dose series) Hepatitis B Vaccines (1 of 3 - Risk 3-dose series) [facility] Start: 2007 Zoster Vaccines (1 of 2) Zoster Vaccines (1 of 2) [facility] Start: 1979 DTaP/Tdap/Td Vaccines (1 - Tdap) DTaP/Tdap/Td Vaccines (1 - Tdap) [facility] Start: 1978 Screening for malignant neoplasm of cervix [facility] Start: 1976 Hepatitis A Vaccines (1 of 2 - Risk 2-dose series) Hepatitis A Vaccines (1 of 2 - Risk 2-dose series) [facility] Start: 1976 Urine screening for protein Diabetes: Urine Protein Screening [facility] Start: 1975 Hepatitis C screening Hepatitis C Screening [facility] Start: 1967 Diabetic foot examination Diabetes: Foot Exam [facility] Start: 1967 Glaucoma screening Diabetes: Retinopathy Screening [facility] Start: 1963 Pneumococcal Vaccine: 65+ Years (1 - PCV) Pneumococcal Vaccine: 65+ Years (1 - PCV) [facility] Start: 1958 MMR Vaccines (1 of 1 - Standard series) MMR Vaccines (1 of 1 - Standard series) [facility] Start: 1957 Hemoglobin A1c measurement Diabetes: Hemoglobin A1C [facility] Start: 1957 Lipid panel Lipid Panel [facility] Start: 1957 Screening for malignant neoplasm of colon [facility] Start: 1957 Screening for osteoporosis Bone Density Scan [facility] Start: 1957 Thyroid stimulating hormone measurement TSH Level [facility] Start: 1957 Yearly Adult Physical Yearly Adult Physical [facility] Immunizations Immunization Date Immunization Notes Care Provider Fa cility 05-11-2022 Pfizer COVID-19 Vac Bivalent 30 MCG/0.3ML Intramuscular Suspension Gopi Solis MD Work Phone: [facility] 250 DO Work Phone: 04-02-2021 Pfizer-BioNTech COVID-19 Vacc 30 MCG/0.3ML Intramuscular Suspension Gopi Solis MD Work Phone: [facility] 250 DO Work Phone: 09-15-2020 Pfizer-BioNTech COVID-19 Vacc 30 MCG/0.3ML Intramuscular Suspension Gopi Solis MD Work Phone: [facility] 250 DO Work Phone: 08-25-2020 Pfizer-BioNTech COVID-19 Vacc 30 MCG/0.3ML Intramuscular Suspension Gopi Solis MD Work Phone: [facility] 250 DO Work Phone: Payers Date Payer Category Payer Private Health Insurance [id number] 2022 Self-pay 1959 Private Health Insurance [id number] 1957 Unknown [id number] 2.16. [id number] 1957 Unknown [id number] 2.16. [id number] 1957 Unknown [id number] 2.16.84 [id number] 1957 Unknown [id number] 2.16.84 [id number] 1957 Unknown [id number] 2.16.84 [id number] 1957 Unknown [id number] 2.16.84 [id number] 1957 Unknown [id number] 2.16.8 [id number] Unknown Unknown [id number] Unknown [id number] [id number] [id number] Unknown [id number] 2.16.8 [id number] Unknown [id number] 2.16.8 [id number] Social History Date Type Detail Facility Start: 02-22-2023 Never a smoker Never a smoker [facility] Work [facility]: Comment on above: pop 3 daily; Start: 02-22-2023 Sex Assigned At Female [facility] Start: 02-22-2023 Tobacco smoking status NHIS Never smoked tobacco [facility] Start: 02-22-2023 Tobacco use and exposure Smokeless tobacco non-user [facility] Work Phone: Start: 1955 Sex Assigned At Not on file [facility] Work Phone: Start: 02-12-2023 End: 02-22-2023 Exposure to SARS-CoV-2 (event) Not sure [facility] NEGATED: Highlighted row - - KW-Cfizxhuinvhhtj-Lm m in [place] [address] Work Phone: Medical Equipment Procedure Code Equipment Code Equipment Origin al Text Equipment Identifier Dates Pen [place] 32G X 4 MM Start: 02-01-2023 Laser Engineerin luana Hwg 500 Fiber Case [id number] Start: 03-19-2021 Comment on above: Description: Convert ed from [email or web address] Please see archived information for full log information. Additional Information:per bill only jdr 03/28/2021 1456pm Functional Status Date Assessment Result Facility NEGATED: Highlighted row Functional performance Functional status health issues are not documented Disease VH-Pifqqakmcnsdxx-I [place] [address] Work Phone: Mental Status Date Assessment Result Facility NEGATED: Highlighted row Cognitive function [Interpretation] Cognitive status health issues are not documented Disease CN-Ctlrkaffwitryh-K [place] [address] Work Phone: Clinical Notes 03-03-2021 to 02-22-2023 [...] of any inflammation. documented in this encounter [facility] Work Phone: 02-15-2023 Evaluation note Encounter Date [...] other veggie/fruit w/ dinner; PARTIALLY MET, ON-GOING [facility] Other [id number] Evaluation note* Encounter Date Diagnosis Assessment Notes Treatment Notes Treatment Clinical Notes Jan, Obesity (ICD-10 - E66.9) [facility] sent wrong diagnosis code, then [...] was counseling done by myself, Moira NICHOLS. [facility] Other 08-23-2023 Evaluation note* Encounter Date Diagnosis [...] beans, salad or other veggie/fruit w/ dinner [facility] Other 06-20-2023 Evaluation note* Encounter Date Diagnosis [...] patient set personal goal using given handout. [facility] Other 06-20-2023 Evaluation note* Encounter Date Diagnosis Assessment Notes Treatment Notes Treatment Clinical Notes Sep, Obesity (ICD-10 - E66.9) [facility] sent wrong diagnosis code, then sent to non preferred pharmacy. Sent to [facility] per [facility] preferred. Sep, BMI 40.0-44.9, adult (ICD-10 [...] was counseling done by myself, Moira NICHOLS. [facility] Other 03-28-2023 Evaluation note* Encounter Date Diagnosis Assessment Notes Treatment Notes Treatment Clinical Notes Jun, Obesity (ICD-10 - E66.9) [facility] sent wrong diagnosis code, then sent to non preferred pharmacy. Sent to [facility] per [facility] preferred. Jun, BMI 40.0-44.9, adult (ICD-10 [...] was counseling done by myself, Moira NICHOLS. [facility] Other 02-14-2023 Evaluation note* Encounter Date Diagnosis [...] patient set personal goal using given handout. [facility] Other 01-31-2023 Evaluation note* Encounter Date Diagnosis Assessment Notes Treatment Notes Treatment Clinical Notes May, Obesity (ICD-10 - E66.9) first sent wrong diagnosis code, then sent to non preferred pharmacy. Sent to [facility] [place] per [facility] preferred. May, BMI 40.0-44.9, adult (ICD-10 [...] was counseling done by myself, Moira NICHOLS. [facility] Other 01-31-2023 History of Present illness Narrative* [...] * 5. Follow-up after testing is done [place] [address] DO Work Phone: 1(927) 272-131411-02-2021 History of Present illness NarrativeThis patient presented [...] and is very pleased with the results. SD-Qavmrtutxmdfnq-Lrtgiylv Work Phone: 1(559) 303-595311-02-2021 History of Present illness NarrativeThis patient presented [...] today for follow-up. Her breathing has remained stable.LS-Kzmaknulkfqdsf-Hcvfjvcq Work Phone: chief complaint Narrative - ReportedBETH DONOVAN is being seen for a consultation for [facility].-[facility] 250 DO Work Phone: Evaluation + Plan note No data available for this section [facility] noteNo InformationNortKaleida Health LOYAL3 Other Evaluation note* Diagnosis Tracheal stenosis- Primary Other diseases of trachea and bronchus documented in this encounter [facility] Work Phone: History general Narrative - Reported* Type Description Date Medical History thyroid disease Medical History Cholesterol Medical History depression Medical History acid reflux Medical History bipolar Surgical History breast reduction Surgical History throat surgery Surgical History hernia Hospitalization History see surgical hx [employer] LOYAL3 Other Hisfijd general Narrative - Reported* Type Description Date Medical History thyroid disease Medical History Cholesterol Medical History depression Medical History acid reflux Medical History bipolar Surgical History breast reduction Surgical History throat surgery Surgical History hernia Hospitalization History see surgical hx Hospitalization History [facility]TI [facility] ER 07/2022 [place] Other History of Present illness NarrativeThis patient [...] time it feels like it is somewhat lpihxvicAY-Smbpohfcwcpnks-Qkqspipi Work Phone: Hospital Discharge instructions No data available for this section [facility] Family History No Family History Records Found [...] and content) DATE CREATED AUTHOR [facility]/15/2021 [facility] DATE CREATED AUTHOR AUTHOR'S ORGANIZ ATION 06/02/2022 [facility] DATE CREATED AUTHOR AUTHOR'S ORGANIZ ATION 06/02/2022 [employer] DATE CREATED AUTHOR AUTHOR'S ORGANIZ ATION 09/09/2022 [facility] DATE CREATED AUTHOR AUTHOR'S ORGANIZ ATION 02/27/2023 [facility] DATE CREATED AUTHOR AUTHOR'S ORGANIZ ATION 05/06/2023 [facility] REASON FOR VISIT (unrecogniz ed section [...] BE BASED ON THE PRIMARY CLINICAL RECORDS. [address] [facility]. provides no warranty or guarantee of the accuracy or completeness of information in this document.
[2023-05-15] MEDS: LORAZEPAM 0.5 MG TABLET PO (09:36)
[2023-05-15] MEDS: METRONIDAZOLE 250 MG TABLET 500 MG PO ×2 (09:36→21:07)
[2023-05-15] MEDS: DOCUSATE SODIUM 100 MG CAPSULE PO (09:36)
[2023-05-15] MEDS: LACTATED RINGER'S SOLUTION 1,000 ML 125 ML IV ×2 (09:37→20:27)
[2023-05-15] MEDS: CEFTRIAXONE 1,000 MG in 0.9 % SODIUM CHLORIDE 50 ML 100 MG IV (09:37)
[2023-05-15] MEDS: OMEPRAZOLE 20 MG CAPSULE.DR PO (09:38)
[2023-05-15] MEDS: VENLAFAXINE HCL ER 75 MG CAPSULE PO ×2 (09:46→20:26)
[2023-05-15] MEDS: LEVOTHYROXINE SODIUM 100 MCG TABLET PO (09:46)
[2023-05-15] MEDS: OXYCODONE HCL 5 MG TABLET PO ×2 (09:46→23:48)
--- NOTE | 2023-05-15 10:56 | PM.HP ---
H&P: HPI History of Present Illness Chief complaint: abd pain Narrative: 68 y o female was in her usual state of health when last evening after eating her meal (large bag of popcorn), she experienced sudden onset acute abdominal pain in her epigastric region with radiation to her RUQ, associated with nausea and three episodes of vomiting. Pain was persistent, sharp, with periods of worsening cramping sensation. She tried OTC TUMS with no improvement and presented to ED when her pain did not resolved. Her work up in ED was suspicious for possible symptomatic cholelithiasis vs acute cholecystitis. She was admitted for further management of her pain and continued care. She has prior hx of hiatal hernia. On evaluation today, she endorsed Epigastric pain along with RUQ with positive tapia's sign and epigastric tenderness. She denies diarrhea, constipation ,fever and vomiting anymore. Review of Systems ROS Status of ROS 10 or more systems reviewed and unremarkable except as noted in history and below [facility] Medical History (Updated 05/15/23 @ 11:03 by Shaikh Loyd MD) Bipolar 1 disorder ?F31.9 - Bipolar disorder, unspecified (ICD-10) Hypercholesteremia ?E78.00 - Pure hypercholesterolemia, unspecified (ICD-10) Hypothyroidism ?E03.9 - Hypothyroidism, unspecified (ICD-10) Sleep apnea ?G47.30 - Sleep apnea, unspecified (ICD-10) Diabetes ?E11.9 - Type 2 diabetes mellitus without complications (ICD-10) Surgical History (Updated 05/15/23 @ 07:50 by Katlyn Painter) H/O bilateral breast reduction surgery ?Z98.890 - Other specified postprocedural states (ICD-10) H/O hernia repair ?Z98.890 - Other specified postprocedural states (ICD-10) ?Z87.19 - Personal history of other diseases of the digestive system (ICD-10) Family History (Updated 05/15/23 @ 07:51 by Katlyn Painter) Father Family history of CHF (congestive heart failure) Family history of COPD (chronic obstructive pulmonary disease) Family history of diabetes mellitus Brother Family history of cancer Mother Family history of cancer Family history of stroke Social History (Updated 05/15/23 @ 07:54 by Katlyn Painter) Within the past year, how often did you have a drink containing alcohol: never Score interpretation: A score less than 3 is consistent with normal alcohol consumption. 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 [employer] Known occupational exposures/hazards: No Highest level of school completed/degree received: Associate degree: occupational, technical, vocational program Do you want help with school or training: No Are you now , , , , never or living with a partner: In a typical week, how many times do you talk on the telephone with family, friends, or neighbors: 3 or more times per week How often do you attend congregational or yazdanism services: 1-3 times per year Do you belong to any clubs or organizations such as congregational groups unions, [employer] or athletic groups, or school groups: no Total score: 2 Score interpretation: A score of greater than or equal to 2 indicates the lowest level of social isolation. Little interest or pleasure in doing things: not at all Feeling down, depressed, or hopeless: not at all Feel stressed/tense/nervous/anxious/difficulty sleeping: not at all Due to disability, difficulty making decisions: No Do you think of yourself as: straight/heterosexual Gender Identity: female Meds Home Medications and Allergies Home Medications Medication Instructions Recorded Confirmed Type levothyroxine 100 mcg tablet 100 mcg PO DAILY 05/15/23 05/15/23 History lorazepam 0.5 mg tablet 0.5 mg PO .QD PRN anxiety 05/15/23 05/15/23 History metformin 500 mg tablet 500 mg PO DAILY 05/15/23 05/15/23 History omeprazole 20 mg capsule,delayed 20 mg PO BID 05/15/23 05/15/23 History release risperidone 2 mg tablet 2 mg PO .HS 05/15/23 05/15/23 History simvastatin 40 mg tablet 40 mg PO DAILY 05/15/23 05/15/23 History venlafaxine 75 mg tablet 75 mg PO Q12H 05/15/23 05/15/23 History Allergies Allergy/AdvReac Type Severity Reaction Status Date / Time No Known Drug Allergies Allergy Verified 05/14/23 23:32 Exam Constitutional Vital Signs, click to edit/add: Last Vital Signs Temp 98.3 F 05/15/23 08:24 Pulse 71 05/15/23 08:24 Resp 18 05/15/23 08:24 BP 131/77 05/15/23 09:46 Pulse Ox 91 L 05/15/23 08:24 O2 Del Method Room Air 05/15/23 08:24 Documenting provider has reviewed patient's vital signs: yes Common normals: no apparent distress General appearance: cooperative and comfortable Nutritional appearance: obese Respiratory Common normals: normal respiratory effort, no use of accessory muscles and clear to auscultation bilaterally Effort & inspection: able to speak in complete sentences Cardio Common normals: no JVD, regular rate, regular rhythm, S1 normal heart sound and S2 normal heart sound GI Common normals: Normal to inspection, nondistended, normoactive bowel sounds present, soft to palpation and no hepatosplenomegaly Palpation: tender Details: epigastric, RUQ and Tapia's sign Rectal Exam - Female: deferred Extremity Common normals: no clubbing, cyanosis or edema Neuro Common normals: oriented x3, moves all extremities, no focal motor deficits and no sensory deficits noted Psych Common normals: mental status grossly normal, thought process normal, denies homicidal ideation and denies suicidal ideation Results Labs Labs: Short CBC 05/14/23 Range/Units 00:00 WBC 12.3 H (4.0-11.0) 10^3/uL Hgb 11.7 L (12.0-16.0) g/dL Hct 36.2 (36.0-48.0) % Plt Count 317 (150-450) 10^3/uL BMP 05/14/23 00:00 Sodium 138 Potassium 4.1 Chloride 102 Carbon Dioxide 27.8 BUN 14.0 Creatinine 0.83 Glucose 117 H Calcium 8.8 Liver Function 05/14/23 Range/Units 00:00 Total Bilirubin 0.4 (0.2-1.0) mg/dL AST 14 L (15-37) U/L ALT 24 (14-59) U/L Alkaline Phosphatase 85 (46-116) U/L Albumin 3.6 (3.4-5.0) g/dL Assessment and Plan Assessment and Plan (1) Cholelithiasis: Assessment and Plan: Epigastric and RUQ pain with possible acute cholecystitis vs symptomatic cholelithiasis. Ordered HIDA scan. Empirically treat with rocephin/flagyl. General Surgery consult. Qualifiers: Cholelithiasis location: bile duct Cholecystitis presence: with cholecystitis Cholecystitis acuity: acute Biliary obstruction: without biliary obstruction Qualified Code(s): K80.42 - Calculus of bile duct with acute cholecystitis without obstruction (2) Hypothyroidism: Assessment and Plan: C/w levothyroxine Qualifiers: Hypothyroidism type: unspecified Qualified Code(s): E03.9 - Hypothyroidism, unspecified (3) Sleep apnea: Assessment and Plan: CPAP qhs Qualifiers: Sleep apnea type: unspecified type Qualified Code(s): G47.30 - Sleep apnea, unspecified (4) Hypercholesteremia: Assessment and Plan: C/w simvastatin Plan NPO until HIDA scan. Clear liquid diet afterwards and based on what surgery recommends - will make NPO after MN
--- NOTE | 2023-05-15 14:55 | NM_ITS ---
The [address] [address] Patient Name: BETH DONOVAN MRN: [id number] date: 1955 Sex: F Assigned Patient Location: MS Current Patient Location: Accession/Order Number: [id number] Exam Date: 05/15/2023 14:55 Report Date: 05/15/2023 19:42 At the request of: SHAIKH ADALID Procedure: NM hepatobiliary w pharm EXAM: NM HEPATOBILIARY W PHARM HISTORY: 68-year-old female with abdominal pain in the right upper quadrant with nausea Right upper quadrant abdominal pain. COMPARISON: Abdominal ultrasound dated 05/15/2023 CT scan abdomen pelvis 05/15/2023 TECHNIQUE/DOSE: 5.2 millicuries of technetium 99m Choletec are administered with immediate postinjection imaging as per institutional protocol. 8 oz of Ensure po FINDINGS: The liver demonstrates prompt uptake. The gallbladder is not seen by 90 minutes. There is adequate biliary to bowel transit. The Ejection Fraction equals: 56% at 60 minutes (Normal EF > 35%) (No EF at 20 mins nor 40 mins) NM/NM hepatobiliary w pharm IMPRESSION: 1. Nonvisualization of the gallbladder at 90 mins. 2. No EF at 20 mins nor 40 mins 3. Ejection Fraction equals: 56% at 60 minutes Electronically authenticated by: KATE FOSTER Date: 05/15/2023 19:42
--- NOTE | 2023-05-15 15:10 | PM.GSCN ---
History of Present Illness Consult details Consult date: 05/15/23 Requesting physician: Shaikh Loyd Narrative: patient seen/examined/chart and x-ray images reviewed; consult dictated; 68 yo female with less than 24 hr h/o upper abd pain, mild leukocytosis, 2.5 cm stone in neck of gallbladder, but US without signs of obstruction or inflammation; likely episode of biliary colic, with possible exacerbation of GERD as well; patient just taken down for HIDA scan, will await results; plan NPO after MDN in case cholecystectomy is required; will follow. [facility] Medical History (Updated 05/15/23 @ 11:03 by Shaikh Loyd MD) Bipolar 1 disorder ?F31.9 - Bipolar disorder, unspecified (ICD-10) Hypercholesteremia ?E78.00 - Pure hypercholesterolemia, unspecified (ICD-10) Hypothyroidism ?E03.9 - Hypothyroidism, unspecified (ICD-10) Sleep apnea ?G47.30 - Sleep apnea, unspecified (ICD-10) Diabetes ?E11.9 - Type 2 diabetes mellitus without complications (ICD-10) Surgical History (Updated 05/15/23 @ 07:50 by Katlyn Painter) H/O bilateral breast reduction surgery ?Z98.890 - Other specified postprocedural states (ICD-10) H/O hernia repair ?Z98.890 - Other specified postprocedural states (ICD-10) ?Z87.19 - Personal history of other diseases of the digestive system (ICD-10) Family History (Updated 05/15/23 @ 07:51 by Katlyn Painter) Father Family history of CHF (congestive heart failure) Family history of COPD (chronic obstructive pulmonary disease) Family history of diabetes mellitus Brother Family history of cancer Mother Family history of cancer Family history of stroke Social History (Updated 05/15/23 @ 07:54 by Katlyn Painter) Within the past year, how often did you have a drink containing alcohol: never Score interpretation: A score less than 3 is consistent with normal alcohol consumption. 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 [employer] Known occupational exposures/hazards: No Highest level of school completed/degree received: Associate degree: occupational, technical, vocational program Do you want help with school or training: No Are you now , , , , never or living with a partner: In a typical week, how many times do you talk on the telephone with family, friends, or neighbors: 3 or more times per week How often do you attend yarsani or congregational services: 1-3 times per year Do you belong to any clubs or organizations such as yarsani groups unions, fraternal or athletic groups, or school groups: no Total score: 2 Score interpretation: A score of greater than or equal to 2 indicates the lowest level of social isolation. Little interest or pleasure in doing things: not at all Feeling down, depressed, or hopeless: not at all Feel stressed/tense/nervous/anxious/difficulty sleeping: not at all Due to disability, difficulty making decisions: No Do you think of yourself as: straight/heterosexual Gender Identity: female Meds Home Medications and Allergies Home Medications Medication Instructions Recorded Confirmed Type levothyroxine 100 mcg tablet 100 mcg PO DAILY 05/15/23 05/15/23 History lorazepam 0.5 mg tablet 0.5 mg PO .QD PRN anxiety 05/15/23 05/15/23 History metformin 500 mg tablet 500 mg PO DAILY 05/15/23 05/15/23 History omeprazole 20 mg capsule,delayed 20 mg PO BID 05/15/23 05/15/23 History release risperidone 2 mg tablet 2 mg PO .HS 05/15/23 05/15/23 History simvastatin 40 mg tablet 40 mg PO DAILY 05/15/23 05/15/23 History venlafaxine 75 mg tablet 75 mg PO Q12H 05/15/23 05/15/23 History Allergies Allergy/AdvReac Type Severity Reaction Status Date / Time No Known Drug Allergies Allergy Verified 05/14/23 23:32 Exam Constitutional Vital Signs, click to edit/add: Last Vital Signs Temp 98.3 F 05/15/23 08:24 Pulse 71 05/15/23 08:24 Resp 18 05/15/23 08:24 BP 131/77 05/15/23 09:46 Pulse Ox 91 L 05/15/23 08:24 O2 Del Method Room Air 05/15/23 08:24 Results Labs Labs: Abnormal lab results 05/14/23 Range/Units 00:00 WBC 12.3 H (4.0-11.0) 10^3/uL RBC 3.97 L (4.20-5.40) 10^6/uL Hgb 11.7 L (12.0-16.0) g/dL Neut % (Auto) 77.0 H (43.0-75.0) % Lymph % (Auto) 14.7 L (20.5-60.0) % Eos % (Auto) 0.7 L (0.9-7.0) % Neut # (Auto) 9.5 H (1.4-6.5) 10^3/uL Abs Immat Gran (auto) 0.09 H (0.00-0.03) 10^3/uL Imm/Tot Granulo (auto) 0.7 H (0.0-0.5) % Glucose 117 H (74-106) mg/dL AST 14 L (15-37) U/L Diabetes panel 05/14/23 Range/Units 00:00 Sodium 138 (136-145) mmol/L Potassium 4.1 (3.5-5.1) mmol/L Chloride 102 (98-107) mmol/L Carbon Dioxide 27.8 (21.0-32.0) mmol/L BUN 14.0 (7.0-18.0) mg/dL Creatinine 0.83 (0.55-1.02) mg/dL Glucose 117 H (74-106) mg/dL Calcium 8.8 (8.5-10.1) mg/dL AST 14 L (15-37) U/L ALT 24 (14-59) U/L Alkaline Phosphatase 85 (46-116) U/L Total Protein 7.2 (6.4-8.2) g/dL Albumin 3.6 (3.4-5.0) g/dL Calcium panel 05/14/23 Range/Units 00:00 Calcium 8.8 (8.5-10.1) mg/dL Albumin 3.6 (3.4-5.0) g/dL Pituitary panel 05/14/23 Range/Units 00:00 Sodium 138 (136-145) mmol/L Potassium 4.1 (3.5-5.1) mmol/L Chloride 102 (98-107) mmol/L Carbon Dioxide 27.8 (21.0-32.0) mmol/L BUN 14.0 (7.0-18.0) mg/dL Creatinine 0.83 (0.55-1.02) mg/dL Glucose 117 H (74-106) mg/dL Calcium 8.8 (8.5-10.1) mg/dL Adrenal panel 05/14/23 Range/Units 00:00 Sodium 138 (136-145) mmol/L Potassium 4.1 (3.5-5.1) mmol/L Chloride 102 (98-107) mmol/L Carbon Dioxide 27.8 (21.0-32.0) mmol/L BUN 14.0 (7.0-18.0) mg/dL Creatinine 0.83 (0.55-1.02) mg/dL Glucose 117 H (74-106) mg/dL Calcium 8.8 (8.5-10.1) mg/dL Total Bilirubin 0.4 (0.2-1.0) mg/dL AST 14 L (15-37) U/L ALT 24 (14-59) U/L Alkaline Phosphatase 85 (46-116) U/L Total Protein 7.2 (6.4-8.2) g/dL Albumin 3.6 (3.4-5.0) g/dL All other labs normal. Assessment and Plan Assessment and Plan (1) Cholelithiasis: Qualifiers: Biliary obstruction: without biliary obstruction Cholecystitis acuity: acute Cholecystitis presence: with cholecystitis Cholelithiasis location: bile duct Qualified Code(s): K80.42 - Calculus of bile duct with acute cholecystitis without obstruction (2) Hypothyroidism: Qualifiers: Hypothyroidism type: unspecified Qualified Code(s): E03.9 - Hypothyroidism, unspecified (3) Sleep apnea: Qualifiers: Sleep apnea type: unspecified type Qualified Code(s): G47.30 - Sleep apnea, unspecified (4) Hypercholesteremia:
[2023-05-15] MEDS: ENOXAPARIN SODIUM 40 MG/0.4 ML SYRINGE SUBQ (17:58)
[2023-05-15] MEDS: ATORVASTATIN CALCIUM 20 MG TABLET PO (20:26)
[2023-05-15 20:56] LABS: Glucometer 143 mg/dL (74-106)
[2023-05-15] MEDS: risperiDONE 1 MG TABLET 2 MG PO (21:07)
[2023-05-15] MEDS: PANTOPRAZOLE SODIUM 40 MG VIAL IV (22:17)
[2023-05-16] VITALS (18 sets, daily range): BP systolic 116–168; BP diastolic 61–81; PULSE 84–98; RESP 14–26; TEMP 36.6–37.2; O2SAT 86–97
--- NOTE | 2023-05-16 | OP_ITS ---
OPERATION DATE: 05/16/2023 PREOPERATIVE DIAGNOSIS: Cholecystitis. POSTOPERATIVE DIAGNOSIS: Acute and chronic gangrenous cholecystitis with cholelithiasis and chronic gallbladder obstruction. PROCEDURE: Laparoscopic cholecystectomy. SURGEON: Mayito Salvador M.D. ANESTHESIA: General endotracheal. ESTIMATED BLOOD LOSS: Less than 25 mL. INDICATIONS AND CONSENT: Patient is a 68-year-old female with history of worsening upper abdominal pain over the last several days. Workup revealed mild leukocytosis as well as large stone in the neck of the gallbladder. Ultrasound was equivocal for cholecystitis with no wall thickening; however, HIDA scan revealed non-visualization of the gallbladder. The patient has had persistent pain. Indications, risks, benefits, alternatives of proceeding with laparoscopic cholecystectomy were explained extensively to the patient, including risks of bleeding, infection, bile duct injury, bowel injury, need for intraoperative cholangiogram, postoperative ERCP, open procedure, blood clot, pulmonary embolus, heart attack, anesthetic complications, need for further surgery or open procedure. All of her questions were answered. Informed consent was obtained. PROCEDURE: Patient was brought to the operating room, placed in the supine position. General anesthesia was induced. She was prepped and draped in the usual sterile fashion. A supraumbilical incision was made with the scalpel blade and carried down through subcutaneous tissue using blunt dissection. The fascia was grasped and incised. Two 0 Vicryl stay sutures placed in either side of the midline fascia. The Gomez trocar was then inserted and secured using the stay sutures. The abdomen was then insufflated with carbon dioxide to a pressure of 15 mm/Hg. The scope was then inserted and the abdomen upper abdomen was visualized. There were noted to be dense omental adhesions covering the gallbladder. Three 5 mm ports were then placed; one in the subxiphoid area, two in the right subcostal area, all under direct visualization. Patient was placed in reverse Trendelenburg position with the right side up. Omentum was freed up and the gallbladder was noted to be markedly distended, hemorrhagic and gangrenous. It was aspirated with an aspirating needle for clear bile consistent with long standing obstruction. After aspiration, the gallbladder was able to be grasped at the fundus with an atraumatic grasper and retracted cephalad and to the patient?s right. Dense adhesions were freed up from the body of the gallbladder and infundibulum. The infundibulum was grasped with a tooth grasper and retracted laterally and inferiorly. Dissection was begun just below the infundibulum, where the cystic duct and cystic artery were carefully dissected out. There was noted to be a large, inflamed lymph node of Calot that was freed up. Small vessel branches were controlled with regular clips. The infundibulum was completely freed up and the cystic duct and cystic artery were skeletonized and the critical view of safety was obtained. The cystic duct was clipped with two Hem-O-Christen clips proximally towards the common duct, one distally towards the gallbladder, as well as the artery. These were then divided. The gallbladder was then taken down from the liver bed using electrocautery. There were noted to be some chronic inflammatory changes, as well as some purulence within the gallbladder bed. Once the gallbladder was completely removed, it was brought out in an Endocatch bag through the umbilical port site, which had to be enlarged due to the large stone within the infundibulum of the gallbladder. The upper abdomen was then copiously irrigated until clear. There was good hemostasis. There was minimal oozing from adhesions but no active bleeding, no bile leakage from the liver bed. A 15 round J-P drain was then placed in the liver bed and brought out through the lateral port site. It was secured to the skin using a 3-0 nylon suture and placed to closed bulb suction. The remaining ports were removed direct visualization. There was good hemostasis. The abdomen was deflated. The umbilical fascia was closed with 0 Vicryl figure of eight suture as well as a 2- 0 Prolene figure of eight suture. Subcutaneous tissues were infiltrated with 0.5% Marcaine. The skin was then closed with interrupted 4-0 subcuticular Monocryl suture and skin glue. Sterile pressure dressings were applied. Sponge and needle counts were correct x2 per nursing personnel. Patient tolerated procedure well, was extubated and sent to recovery room in good condition. CC: Bello Hilton M.D. ORESTES
[2023-05-16] MEDS: LACTATED RINGER'S SOLUTION 1,000 ML 125 ML IV ×3 (04:31→23:09)
[2023-05-16 05:12] LABS: Basophils Absolute Auto 0.1 10^3/uL (0.0-0.1); Basophils Percent Auto 0.4 % (0.2-2.0); Eosinophils Percent Auto 0.1 % (0.9-7.0); Hematocrit 34.2 % (36.0-48.0); Hemoglobin 11.4 g/dL (12.0-16.0); Immature Granulocytes Abs Auto 0.06 10^3/uL (0.00-0.03); Immature Granulocytes Pct Auto 0.4 % (0.0-0.5); Lymphocytes Absolute Auto 1.7 10^3/uL (1.2-3.8); Lymphocytes Percent Auto 11.5 % (20.5-60.0); Mean Corpuscular HGB Conc 33.3 g/dL (29.9-35.2); Mean Corpuscular Hemoglobin 30.2 pg (26.7-34.0); Mean Corpuscular Volume 90.7 fL (81.0-99.0); Mean Platelet Volume 9.8 fL (9.5-13.5); Monocytes Absolute Auto 1.5 10^3/uL (0.3-0.8); Monocytes Percent Auto 9.7 % (1.7-12.0); Neutrophils Absolute Auto 11.7 10^3/uL (1.4-6.5); Neutrophils Percent Auto 77.9 % (43.0-75.0); Platelet Count 289 10^3/uL (150-450); Red Blood Count 3.77 10^6/uL (4.20-5.40); Red Cell Distribution Width 12.9 % (11.0-15.0); White Blood Count 15.1 10^3/uL (4.0-11.0)
[2023-05-16 05:47] LABS: Alanine Aminotransferase 21 U/L (14-59); Albumin Globulin Ratio 0.8; Alkaline Phosphatase 78 U/L (46-116); Anion Gap 10.3; Aspartate Amino Transferase 11 U/L (15-37); BUN Creatinine Ratio 8.9; Calcium 8.7 mg/dL (8.5-10.1); Carbon Dioxide 28.5 mmol/L (21.0-32.0); Chloride 99 mmol/L (98-107); Estimated GFR (African America >60 (>=60); Estimated GFR (Non-African Ame >60 (>=60); Globulin 3.8 g/dL; Glucose 134 mg/dL (74-106); Potassium 3.8 mmol/L (3.5-5.1); Sodium 134 mmol/L (136-145); Total Protein 6.8 g/dL (6.4-8.2)
[2023-05-16] MEDS: CEFTRIAXONE 1,000 MG in 0.9 % SODIUM CHLORIDE 50 ML 100 MG IV (09:45)
[2023-05-16] MEDS: PANTOPRAZOLE SODIUM 40 MG VIAL IV ×2 (09:45→20:30)
--- NOTE | 2023-05-16 10:49 | CM.NOTE ---
Rounds made with Dr. Harp, pt will go to OR today around 11:30 and possible discharge to home after OR.
[2023-05-16 10:58] LABS: Glucometer 126 mg/dL (74-106)
--- NOTE | 2023-05-16 12:03 | P.PN_ITS ---
<Statement entered by Shaikh Loyd MD - 05/16/23 12:47> This documentation has been reviewed and approved. Seen and examined. Doing well. Exam: Laying in bed, morbidly obese, NAD RUQ and epigastric tenderness, non distended Assessment and Plan Acute cholecystitis/biliary colic: on Rocephin/Flagyl. NPO for cholecystectomy. Possible discharge later today. Progress Note: Subjective Subjective Interval history: 05/16/23 0950 The pt is resting in bed visiting with her spouse. Dr Salvador plans to take her for a cholecystectomy at 1100 today. The pt is NPO pending surgery. She continues to report no nausea but her epigastric/RUQ pain is persistent, although improved from admission. D/C possible later today vs tomorrow pending surgical/post op course and Dr Salvador recommendations. Exam Constitutional Vital Signs, click to edit/add: Last Vital Signs Temp 98.8 F 05/16/23 04:56 Pulse 84 05/16/23 04:56 Resp 16 05/16/23 04:56 BP 123/72 05/16/23 04:56 Pulse Ox 91 L 05/16/23 04:56 O2 Del Method Room Air 05/16/23 04:56 Common normals: no apparent distress, oriented x3 and alert General appearance: cooperative Orientation/consciousness: Yes awake HENMO Common normals: normocephalic, head/scalp atraumatic and hearing grossly normal bilaterally Eye Common normals: PERRL, EOMs intact bilaterally, conjunctivae normal and no scleral icterus General eye: normal appearance of both eyes Chest Common normals: inspection of chest normal Chest: symmetrical chest wall rise Respiratory Common normals: normal respiratory effort, no use of accessory muscles and clear to auscultation bilaterally Effort & inspection: able to speak in complete sentences Cardio Common normals: regular rate, regular rhythm, S1 normal heart sound, S2 normal heart sound, no murmurs and peripheral pulses 2+ throughout GI Common normals: Normal to inspection, nondistended, normoactive bowel sounds present, soft to palpation and no hepatosplenomegaly Palpation: tender Details: epigastric and RUQ; no guarding, not rigid and no rebound tenderness present Bladder/kidney exam: bladder normal to palpation Extremity Common normals: normal to inspection and no calf tenderness General: edema (Trace bilat insteps); no clubbing and no cyanosis Neuro Common normals: CN's II-XII intact bilaterally, moves all extremities, no focal motor deficits and no sensory deficits noted Psych Common normals: mental status grossly normal Progress Note: Objective Labs Labs: Short CBC 05/16/23 Range/Units 04:56 WBC 15.1 H (4.0-11.0) 10^3/uL Hgb 11.4 L (12.0-16.0) g/dL Hct 34.2 L (36.0-48.0) % Plt Count 289 (150-450) 10^3/uL BMP 05/16/23 04:56 Sodium 134 L Potassium 3.8 Chloride 99 Carbon Dioxide 28.5 BUN 7.0 Creatinine 0.79 Glucose 134 H Calcium 8.7 Liver Function 05/16/23 Range/Units 04:56 Total Bilirubin 1.0 (0.2-1.0) mg/dL AST 11 L (15-37) U/L ALT 21 (14-59) U/L Alkaline Phosphatase 78 (46-116) U/L Albumin 3.0 L (3.4-5.0) g/dL Imaging NM HIDA scan: Attestation: I have reviewed the pertinent imaging results. Radiologist's impression: FINDINGS: The liver demonstrates prompt uptake. The gallbladder is not seen by 90 minutes. There is adequate biliary to bowel transit. The Ejection Fraction equals: 56% at 60 minutes (Normal EF > 35%) (No EF at 20 mins nor 40 mins) Progress Note: A&P Assessment and Plan (1) Cholelithiasis: Assessment and Plan: ACUTE * Epigastric and RUQ pain persist * N/V resolved * Leukocytosis worse today, 15.1 up from 12.3 on admission * Continue IVPB Rocephin and Flagyl * OR for cholecystectomy today per Dr Salvador - we appreciate his assistance with this pt's care * NPO pending surgery * Possible D/C home later today or in the AM pending surgical/post op course * CBC, CMP in AM if not discharged Qualifiers: Biliary obstruction: without biliary obstruction Cholecystitis acuity: acute Cholecystitis presence: with cholecystitis Cholelithiasis location: bile duct Qualified Code(s): K80.42 - Calculus of bile duct with acute cholecystitis without obstruction (2) Hypothyroidism: Assessment and Plan: CHRONIC * Continue home levothyroxine Qualifiers: Hypothyroidism type: unspecified Qualified Code(s): E03.9 - Hypothyroidism, unspecified (3) Sleep apnea: Assessment and Plan: CHRONIC * CPAP at [facility] Qualifiers: Sleep apnea type: unspecified type Qualified Code(s): G47.30 - Sleep apnea, unspecified (4) Hypercholesteremia: Assessment and Plan: CHRONIC * Continue home statin
[2023-05-16] MEDS: BUPIVACAINE HCL 0.5% PF 50 MG/10 ML VIAL 20 ML INJ (13:14)
[2023-05-16] MEDS: LACTATED RINGER'S SOLUTION 1,000 ML 50 ML IV (13:19)
[2023-05-16] MEDS: HYDROMORPHONE HCL 0.5 MG/0.5 ML SYRINGE IV ×2 (13:50→16:15)
[2023-05-16] MEDS: VENLAFAXINE HCL ER 75 MG CAPSULE PO ×2 (14:39→20:56)
[2023-05-16] MEDS: METRONIDAZOLE 250 MG TABLET 500 MG PO ×2 (15:11→21:00)
[2023-05-16 15:57] LABS: Glucometer 139 mg/dL (74-106)
--- NOTE | 2023-05-16 16:02 | CM.NOTE ---
Medicare Outpatient Observation Notice discussed with pt, pt verbalizes understanding and signs paper. Original given to pt and copy placed on pt's chart.
[2023-05-16] MEDS: ENOXAPARIN SODIUM 40 MG/0.4 ML SYRINGE SUBQ (17:52)
--- NOTE | 2023-05-16 20:34 | PC.NURSE ---
Upon entry into room patient resting with eyes closed snoring respiration. Pain medication withheld at this d/t patient current status.
[2023-05-16] MEDS: ATORVASTATIN CALCIUM 20 MG TABLET PO (20:56)
[2023-05-16] MEDS: risperiDONE 1 MG TABLET 2 MG PO (21:00)
[2023-05-16 21:01] LABS: Glucometer 139 mg/dL (74-106)
[2023-05-16] MEDS: OXYCODONE HCL 5 MG TABLET PO (21:08)
[2023-05-17 05:16] VITALS: BP 125/68; PULSE 89; RESP 20; TEMP 36.6; O2SAT 91
[2023-05-17 05:45] LABS: Basophils Absolute Auto 0.1 10^3/uL (0.0-0.1); Basophils Percent Auto 0.4 % (0.2-2.0); Eosinophils Percent Auto 0.2 % (0.9-7.0); Hematocrit 31.9 % (36.0-48.0); Hemoglobin 9.9 g/dL (12.0-16.0); Immature Granulocytes Abs Auto 0.07 10^3/uL (0.00-0.03); Immature Granulocytes Pct Auto 0.6 % (0.0-0.5); Lymphocytes Absolute Auto 1.3 10^3/uL (1.2-3.8); Mean Corpuscular Hemoglobin 29.6 pg (26.7-34.0); Mean Corpuscular Volume 95.2 fL (81.0-99.0); Monocytes Absolute Auto 1.3 10^3/uL (0.3-0.8); Monocytes Percent Auto 10.7 % (1.7-12.0); Neutrophils Absolute Auto 9.8 10^3/uL (1.4-6.5); Neutrophils Percent Auto 78.1 % (43.0-75.0); Platelet Count 265 10^3/uL (150-450); Red Blood Count 3.35 10^6/uL (4.20-5.40); Red Cell Distribution Width 13.2 % (11.0-15.0); White Blood Count 12.5 10^3/uL (4.0-11.0)
[2023-05-17] MEDS: METRONIDAZOLE 250 MG TABLET 500 MG PO (05:58)
[2023-05-17] MEDS: OXYCODONE HCL 5 MG TABLET PO (05:59)
[2023-05-17] MEDS: LEVOTHYROXINE SODIUM 100 MCG TABLET PO (05:59)
[2023-05-17 06:06] LABS: Alanine Aminotransferase 32 U/L (14-59); Albumin Globulin Ratio 0.7; Albumin Level 2.5 g/dL (3.4-5.0); Alkaline Phosphatase 76 U/L (46-116); Anion Gap 10.3; Aspartate Amino Transferase 32 U/L (15-37); BUN Creatinine Ratio 5.7; Bilirubin Total 0.7 mg/dL (0.2-1.0); Calcium 8.2 mg/dL (8.5-10.1); Chloride 97 mmol/L (98-107); Estimated GFR (African America >60 (>=60); Estimated GFR (Non-African Ame >60 (>=60); Globulin 3.7 g/dL; Glucose 148 mg/dL (74-106); Potassium 4.3 mmol/L (3.5-5.1); Sodium 134 mmol/L (136-145); Total Protein 6.2 g/dL (6.4-8.2)
[2023-05-17 07:37] LABS: Glucometer 146 mg/dL (74-106)
[2023-05-17 07:47] VITALS: RESP 18
[2023-05-17 07:48] VITALS: BP 159/66; PULSE 96; RESP 18; O2SAT 91
[2023-05-17] MEDS: LACTATED RINGER'S SOLUTION 1,000 ML 125 ML IV (08:40)
[2023-05-17] MEDS: VENLAFAXINE HCL ER 75 MG CAPSULE PO (08:40)
[2023-05-17 09:00] VITALS: RESP 18; O2SAT 92
[2023-05-17] MEDS: CEFTRIAXONE 1,000 MG in 0.9 % SODIUM CHLORIDE 50 ML 50 MG IV (09:07)
[2023-05-17] MEDS: 0.9 % SODIUM CHLORIDE 250 ML 10 ML IV (09:08)
[2023-05-17] MEDS: PANTOPRAZOLE SODIUM 40 MG VIAL IV (09:08)
--- NOTE | 2023-05-17 10:19 | CM.NOTE ---
Rounds made with Dr. Harp, discussed discharge to home today. Pt can discharge after seen by general surgeon.
[2023-05-17 10:58] VITALS: O2SAT 92
[2023-05-17 11:09] LABS: Glucometer 126 mg/dL (74-106)
--- NOTE | 2023-05-17 12:20 | PM.GSPN ---
Progress Note: A&P Assessment and Plan (1) Cholelithiasis: Qualifiers: Biliary obstruction: without biliary obstruction Cholecystitis acuity: acute Cholecystitis presence: with cholecystitis Cholelithiasis location: bile duct Qualified Code(s): K80.42 - Calculus of bile duct with acute cholecystitis without obstruction (2) Hypothyroidism: Qualifiers: Hypothyroidism type: unspecified Qualified Code(s): E03.9 - Hypothyroidism, unspecified (3) Sleep apnea: Qualifiers: Sleep apnea type: unspecified type Qualified Code(s): G47.30 - Sleep apnea, unspecified (4) Hypercholesteremia: (5) Calculus of gallbladder with acute and chronic cholecystitis with obstruction: Assessment and Plan: doing well; drain removed; ok for discharge; no lifting > 10 lbs for 4 weeks; f/u next week, my nurse will call to schedule f/u appointment next week; may shower, no tub baths. Subjective Subjective Interval history: POD # 1 s/p LS cholecystectomy for acute and chronic gangrenous cholecystitis with cholelithiasis and chronic gallbladder obstruction; pain controlled, no N/V; afeb, taking regular diet, voiding well. off oxygen. Exam Narrative Exam Narrative: abd: obese, soft, incisions without erythema or drainage, no ecchymoses; selene with serosanguineous drainage. Constitutional Vital Signs, click to edit/add: Last Vital Signs Temp 97.8 F 05/17/23 05:16 Pulse 96 H 05/17/23 07:48 Resp 18 05/17/23 07:48 BP 159/66 H 05/17/23 07:48 Pulse Ox 92 L 05/17/23 10:58 O2 Del Method Nasal Cannula 05/17/23 10:58 O2 Flow Rate 2 05/17/23 10:58
--- NOTE | 2023-05-17 13:04 | P.DS_ITS ---
<Statement entered by Shaikh Loyd MD - 05/17/23 17:22> This documentation has been reviewed and approved. Seen and examined. Doing well. Pain is well controlled. Tolerating PO diet. JENN drained removed by the Surgeon Exam: NAD, laying in bed NT,ND, Bowel sounds are audible Assessment and Plan: Acute cholecystitis s/p cholecystectomy Morbid obesity Stable for discharge. Will need PO antibiotics. F/u with PCP in one week. She should also follow up with Dr Salvador in 1-2 weeks DS: Providers Provider Date of admission: 05/16/23 15:21 Primary care physician: ADI HILTON Consults: 05/15/23 10:18 Consult to General Surgeon Routine Consulting Provider: Mayito Salvador Reason for consultation: Cholelithiasis Discharging clinician: Christina Hebert DS: Diagnosis Discharge Diagnosis (1) Calculus of gallbladder with acute and chronic cholecystitis with obstruction: (2) Cholelithiasis: Qualifiers: Biliary obstruction: without biliary obstruction Cholecystitis acuity: acute Cholecystitis presence: with cholecystitis Cholelithiasis location: bile duct Qualified Code(s): K80.42 - Calculus of bile duct with acute cholecystitis without obstruction (3) Hypothyroidism: Qualifiers: Hypothyroidism type: unspecified Qualified Code(s): E03.9 - Hypothyroidism, unspecified (4) Sleep apnea: Qualifiers: Sleep apnea type: unspecified type Qualified Code(s): G47.30 - Sleep apnea, unspecified (5) Hypercholesteremia: DS: Summary Hospital Course Hospital Course: The pt was admitted with severe abdominal pain and vomiting from suspected acute cholecystitis from cholelithiasis and suspected biliary obstruction noted on CT abdomen and US RUQ. She was seen in consult by Dr Salvador, general surgeon, and underwent a lap cholecystectomy on 05/16/23. Her gallbladder was found to be gangrenous and chronically obstructed. Her postop course was unremarkable and she was able to tolerate a regular diet well. Her pain was adequately controlled with PO pain medications. Her JENN drain was removed by the surgical service on the day of discharge. She is being discharged home in stable condition. She should follow the post op instructions provided by Dr Salvador and follow up with him next week as scheduled. She was prescribed pain medication by the surgical service at discharge. Status at Discharge Functional status at discharge: independent ambulation Time Spent with Patient Time attestation: Total time spent providing and/or coordinating discharge services: Time spent: less than 30 minutes Specific discharge activities: Physical exam, discussion of discharge plan, questions answered. Exam Constitutional Vital Signs, click to edit/add: Last Vital Signs Temp 97.8 F 05/17/23 05:16 Pulse 96 H 05/17/23 07:48 Resp 18 05/17/23 07:48 BP 159/66 H 05/17/23 07:48 Pulse Ox 92 L 05/17/23 10:58 O2 Del Method Nasal Cannula 05/17/23 10:58 O2 Flow Rate 2 05/17/23 10:58 Common normals: no apparent distress, oriented x3 and alert General appearance: cooperative Orientation/consciousness: Yes awake HENMT Common normals: normocephalic and head/scalp atraumatic Eye Common normals: PERRL, EOMs intact bilaterally, conjunctivae normal and no scleral icterus Respiratory Common normals: normal respiratory effort, no use of accessory muscles and clear to auscultation bilaterally Effort & inspection: able to speak in complete sentences and symmetric chest movement Auscultation: diminished lung sounds (BLL) Cardio Common normals: no JVD, regular rate, regular rhythm, S1 normal heart sound, S2 normal heart sound, no murmurs and peripheral pulses 2+ throughout GI Common normals: Normal to inspection, nondistended, normoactive bowel sounds present and soft to palpation Palpation: tender (Epigastric, RUQ, Maeve-incisional) Bladder/kidney exam: bladder normal to palpation Extremity Common normals: normal to inspection, full ROM and normal capillary refill General: edema (Tr-1+ Bilat insteps); no clubbing and no cyanosis Neuro Common normals: moves all extremities, no focal motor deficits and no sensory deficits noted Speech: speech normal Psych Common normals: mental status grossly normal and activity/motor behavior normal DS: Data Data Completed and Pending Labs on day of discharge: Labs from last 24 hours 05/17/23 05/17/23 05/17/23 11:07 07:36 04:35 WBC 12.5 H RBC 3.35 L Hgb 9.9 L Hct 31.9 L MCV 95.2 MCH 29.6 MCHC 31.0 RDW 13.2 Plt Count 265 MPV 10.0 Neut % (Auto) 78.1 H Lymph % (Auto) 10.0 L [place] % (Auto) 10.7 Eos % (Auto) 0.2 L Baso % (Auto) 0.4 Neut # (Auto) 9.8 H Lymph # (Auto) 1.3 [place] # (Auto) 1.3 H Eos # (Auto) 0.0 Baso # (Auto) 0.1 Abs Immat Gran (auto) 0.07 H Imm/Tot Granulo (auto) 0.6 H Sodium 134 L Potassium 4.3 Chloride 97 L Carbon Dioxide 31.0 Anion Gap 10.3 BUN 4.0 L Creatinine 0.70 Est GFR ( Amer) >60 Est GFR (Non-Af Amer) >60 BUN/Creatinine Ratio 5.7 Glucose 148 H Calcium 8.2 L Total Bilirubin 0.7 AST 32 ALT 32 Alkaline Phosphatase 76 Total Protein 6.2 L Albumin 2.5 L Globulin 3.7 Albumin/Globulin Ratio 0.7 POC Glucose 126 H 146 H 05/16/23 05/16/23 21:00 15:56 WBC RBC Hgb Hct MCV MCH MCHC RDW Plt Count MPV Neut % (Auto) Lymph % (Auto) [place] % (Auto) Eos % (Auto) Baso % (Auto) Neut # (Auto) Lymph # (Auto) [place] # (Auto) Eos # (Auto) Baso # (Auto) Abs Immat Gran (auto) Imm/Tot Granulo (auto) Sodium Potassium Chloride Carbon Dioxide Anion Gap BUN Creatinine Est GFR ( Amer) Est GFR (Non-Af Amer) BUN/Creatinine Ratio Glucose Calcium Total Bilirubin AST ALT Alkaline Phosphatase Total Protein Albumin Globulin Albumin/Globulin Ratio POC Glucose 139 [address] scan - abdomen: Radiologist's impression: IMPRESSION: There is some mild pericholecystic edema with a tiny hyperdensity near the gallbladder neck which may represent a small stone. Right upper quadrant sonography is recommended for further evaluation. US - abdomen: Radiologist's impression: IMPRESSION: 1. Large 2.5 cm stone in the gallbladder neck. No sonographic findings of cholecystitis. 2. Hepatomegaly. NM HIDA Scan: Radiologist's impression: IMPRESSION: 1. Nonvisualization of the gallbladder at 90 mins. 2. No EF at 20 mins nor 40 mins 3. Ejection Fraction equals: 56% at 60 minutes Chest x-ray: Radiologist's impression: IMPRESSION: No acute cardiopulmonary abnormalities. Discharge Plan Discharge Disposition: Home, Self-Care Condition: Fair Discharge Medications: New oxycodone 5 mg Tablet 5 mg PO Q6H PRN (Reason: pain 5-7) Qty: 14 0RF Continued venlafaxine 75 mg tablet 75 mg PO Q12H risperidone 2 mg tablet 2 mg PO .HS levothyroxine 100 mcg tablet 100 mcg PO DAILY simvastatin 40 mg tablet 40 mg PO DAILY omeprazole 20 mg capsule,delayed release(DR/EC) 20 mg PO BID metformin 500 mg tablet 500 mg PO DAILY lorazepam 0.5 mg tablet 0.5 mg PO .QD PRN (Reason: anxiety) Activity: return to work once cleared by your PCP/specialist Activity Detail: may shower, no tub baths for 2 weeks; keep drain site covered until it scabs over; no lifting > 10 lbs for 4 weeks; f/u next week, my nurse w ill call tomorrow to schedule follow up appointment. Diet: advance to your usual diet Patient Instructions: Oxycodone, Rapid Release (By mouth), Laparoscopic Cholecystectomy (DC) Activity Restrictions/Additional Instructions: - OK to shower, no tub baths for 2 weeks - Keep drain site covered until it scabs over - No lifting > 10 lbs for 4 weeks Forms: Portal Instructions Follow Up Appointments: @ 4pm with Dr. Hilton [phone] . @ 2:20pm with Dr. Salvador [address] [facility] (shared office with Dr. Mullins) [phone] Discharge Date/Time: 05/17/23 14:40
--- NOTE | 2023-05-18 13:44 | CM.DCFOLLOWU ---
Person spoke with: patient How are you feeling? not too bad How is your pain? a little sore Did you understand your discharge instructions? yes Do you have any questions about your discharge instructions? no Were you given any prescriptions at discharge? yes Were you able to get your prescriptions filled? yes Do you understand how to take your medications as ordered? yes Do you have any questions about your follow up appointment and do you plan to keep your follow up appointment? no questions, reviewed follow up apts with patient Is there anything else that you would like to discuss? no Questions/Comments/Concerns/Other:
== END 2023-05-17 14:40 | disposition home or self-care (01) | DRG 418 ==
LOC: ER 05-15 07:32 → MS 05-15 07:40
PROVIDERS: Surgery; Admitting Provider Internal Medicine; Emergency Provider Internal Medicine; PCP Internal Medicine; Visit Provider Nurse Practitioner
PROC: 0FT44ZZ Resection of Gallbladder, Percutaneous Endoscopic Approach (ICD-10-PCS; principal; 2023-05-16 11:00)
DX: K80.13 Calculus of gallbladder with acute and chronic cholecystitis with obstruction (principal); Z68.41 Body mass index [BMI] 40.0-44.9, adult; K82.A1 Gangrene of gallbladder in cholecystitis; K21.9 Gastro-esophageal reflux disease without esophagitis; K44.9 Diaphragmatic hernia without obstruction or gangrene; E03.9 Hypothyroidism, unspecified; G47.30 Sleep apnea, unspecified; E78.00 Pure hypercholesterolemia, unspecified; E11.9 Type 2 diabetes mellitus without complications; F31.9 Bipolar disorder, unspecified; E66.01 Morbid (severe) obesity due to excess calories; Z87.891 Personal history of nicotine dependence; Z98.890 Other specified postprocedural states; Z79.890 Hormone replacement therapy; Z79.84 Long term (current) use of oral hypoglycemic drugs; Z79.899 Other long term (current) drug therapy; Z82.3 Family history of stroke; Z83.3 Family history of diabetes mellitus; Z80.9 Family history of malignant neoplasm, unspecified; Z82.5 Family history of asthma and other chronic lower respiratory diseases; Z82.49 Family history of ischemic heart disease and other diseases of the circulatory system
CPT/HCPCS: 36415; 71045; 74177; 76705; 78227; 80053; 82948; 83690; 84484; 85025; 88304; 93005; 94761; 96365; 96366; 96372; 96375; 96376; 99285; A9537; G0378; J0330; J0665; J0696; J1100; J1170; J1650; J2250; J2270; J2371; J2405; J2704; J3010; Q9967

== ENCOUNTER 2024-04-17 07:56 | Outpatient (OUT) | payer MEDICARE, OTHER, SELFPAY ==
--- OUTSIDE RECORDS SUMMARY | 2024-04-17 08:17 | XMS_ITS | CCD ---
Author Organization [facility] CliniSymn Care Team Providers Care Website Project Manager Name Role Phone Ronnie Murphy Unavailable Unavailable Update Needed Unavailable Unavailable Asad Joiner Unavailable Unavailable Unavailable Unavailable Unavailable Ronnie Murphy Unavailable Unavailable Cox, Luana Unavailable Unavailable Update Needed Unavailable Unavailable Unavailable Unavailable Unavailable Unavailable Unavailable Unavailable Bello Hilton II Primary Care Unavail able Irma, Dr. Nguyễn Referring Unavaila ble Irma, Dr. Nguyễn Attending Unavaila ble KRYSERTU, Dr. RONNIE Clark Referring Unavailabl e KATHERINE, Dr. RONNIE Clark Attending Unavailabl e Bello Hilton II Primary Care Unavail able Guerita Lilliam Unavailable Nikki Manning Unavailable MISC, DR GONZALEZ Attending Unavailable MISC, DR GONZALEZ Consulting Unavailable MISC, DR GONZALEZ Primary Care Unavailable MISC, DR GONZALEZ Admitting Unavailable ZIEBER, DR CAROL Chowdhury Consulting Unavailable YOBANI, DR JOSHI Primary Care Unavailable HEMMER, DR MIKALA Greenberg Attending Unavailable HEMMER, DR MIKALA Greenberg Admitting Unavailable HEMMER, DR MIKALA Greenberg Consulting Unavailable SCALLY, LILLIAM Admitting Unavailable MISC, DR GONZALEZ Primary Care Unavailable SCALLY, LILLIAM Attending Unavailable SCALLY, LILLIAM Consulting Unavailable MISC, DR GONZALEZ Primary Care Unavailable MAYCO RENEE Attending Unavailable MAYCO RENEE Consulting Unavailable MAYCO RENEE Admitting Unavailable ANASTACIO BARBOZA Consulting Unavailable Newquang, Zeyad Consulting Unavailable Unavailable Primary Care Provider Unavailpoonam Montejo APRN Lilliam Toro Attending Provider TANESHA Hilton Primary Care Provider MD Mayito Yang Attending Provider BELLO HILTON Primary Care Physician Emiliano Lagos Attending Unavailable Mayito YANG Attending Unavailable SHAIKH CORDOBA Referring Unavailable Mayito YANG Attending Unavailable TANESHA Hilton Primary Care Provider MD Mayito Yang Attending Provider ORVILLE Montejo Attending Provider DO Serg Boucher Emergency Provider MD Ben Wasserman Attending Provider Yobani, II Bello Primary Care Provider ORVILLE Montejo Attending Provider Yobani, II Bello Primary Care Provider MD Ben Wasserman Attending Provider CRISTINA HUBBARD Attending Unavailable CRISTINA HUBBARD Attending Unavailable MIKALA MOE Attending Unavailable DENISE SÁNCHEZ Attending Unavailable CRISTINA HUBBARD Attending Unavailable Bello Hilton MD Primary Care Provider Belol Hilton MD Primary Care Provider RONNIE MURPHY Attending Unavailable BELLO HILTON Primary Care Unavailable DOMINIC SALDANA Attending Unavailable BELLO HILTON Primary Care Unavailable Scally, Lilliam C Admitting Unavailable Scally Lilliam C Attending Unavailable Bello Hilton Primary Care Unavailable Scally, Lilliam C Admitting Unavailable Scally, Lilliam C Attending Unavailable Bello Hilton Primary Care Unavailable Lux, Ben Admitting Unavailab le Lux, Ben Attending Unavailab Bello Yost Primary Care Unavailable Serg Boucher Admitting Unavailable Serg Boucher Attending Unavailable Bello Hilton Primary Care Unavailable Bello Hilton Primary Care Unavailable Mayito Yang Admitting Unavailable Mayito Yang Attending Unavailable BELLO HILTON Primary Care Unavailable Allergies Allergy Classification Reported Allergen(s) Allergy Type Date of Onset Reaction(s) Facility (1 source) No Known Medication Allergies; Translations: [No Known Medication Allergies] Propensity to adverse reactions (disorder) [facility] Repository Medications Current Medications Medication Drug Class(es) Dates Sig (Normalized) Sig (Original) 0.25 MG, 0.5 MG Dose 3 ML semaglutide 0.68 MG/ML Pen Injector [Ozempic] (1 source) Start: 06-03-2023 Ozempic 2 mg/3 mL (0.25 mg or 0.5 mg dose) subcutaneous solution 0.25 mg, SubCutaneous, qWeek, Refills(s) 0 Start Date: 06/03/23 Status: Ordered 0.5 ML tirzepatide 5 MG/ML Auto-Injector [Mounjaro] (7 sources) Start: 10-19-2022 Mounjaro 2.5 MG/0.5ML as directed Subcutaneous weekly for 30 days E11.65 Rx Bin [id number], [id number], ID: [id number] Sep, Active Mounjaro 2.5 MG/ 0.5ML as directed Subcutaneous weekly for 30 days E11.65 Rx Bin [id number], Group: [id number], ID: [id number]-- NOT covered Not-Taking Mounjaro 2.5 MG/ 0.5ML as directed Subcutaneous weekly for 30 days E11.65 Rx Bin [id number], Group[id number], ID: [id number]-- NOT covered Active azithromycin 250 mg oral tablet (5 sources) Macrolide Antimicrobial Start: 10-06-2023 End: 02-19-2024 take 2 tablets by mouth once daily, then take 1 tablet by mouth once daily azithromycin (Zithromax) 250 MG tablet Indications: Acute bronchitis, unspecified organism Take 2 tablets (500 mg) by mouth Daily for 1 day, THEN 1 tablet (250 mg) Daily for 4 days. 6 tablet 02/14/2024 02/19/2024 Active levothyroxine sodium 0.1 mg oral tablet (20 sources) l-Thyroxine Start: 05-18-2023 take 1 tablet by mouth once daily levothyroxine 100 mcg (0.1 mg) Tab 100 mcg = 1 tab(s), Oral, Daily, Refills(s) 0 Start Date: 05/18/23 Status: Ordered Start: 01-09-2021 take 1 tablet by poli th once daily in the morning levothyroxine (Synthroid, Levoxyl) 100 MCG tablet Indications: Hypothyroidism, unspecified (CMS/HCC) TAKE 1 TABLET BY MOUTH EVERY DAY IN THE MORNING ON EMPTY STOMACH FOR 90 DAYS 100 tablet 3 06/01/2023 Active Start: 01-09-2021 Levothyroxine Sodium 100 MCG [...] DO Active LORazepam 0.5 mg oral tablet (20 sources) Benzodiazepine Start: 03-15-2023 take 1 tablet by mouth every twenty-four hours as needed for anxiety LORazepam (Ativan) 0.5 MG tablet Take 0.5 mg by mouth Daily as needed for anxiety 03/15/2023 Active Ativan 0.5 MG Or al Tablet Quantity: 0 Refills: 0 Ordered: 11-Dec-2013 DO Active metFORMIN hydrochloride 500 mg oral tablet (20 sources) Biguanide Start: 05-15-2023 take 1 tablet by mouth once daily at mealtime metFORMIN (Glucophage) 500 MG tablet Indications: Type 2 diabetes mellitus without complication, without long-term current use of insulin (CMS/HCC) TAKE 1 TABLET BY MOUTH EVERY DAY WITH A MEAL FOR 90 DAYS 100 tablet 3 06/01/2023 Active take 1 tablet by mouth twice rishi ly metFORMIN (Glucophage) 500 mg tablet Take 1 tablet (500 mg) by mouth 2 times daily (morning and late afternoon). Active methylPREDNISolone (2 sources) Corticosteroid Start: 02-14-2024 End: 02-21-2024 methylPREDNISolone (Medrol Dospak) 4 MG tablets Indications: Acute bronchitis, unspecified organism Follow schedule on package instructions 21 tablet 02/14/2024 02/21/2024 Active omeprazole 20 mg delayed release oral capsule (20 sources) Proton Pump Inhibitor Start: 08-02-2019 End: 02-21-2024 take 1 capsule by mouth in the morning omeprazole (PriLOSEC) [address] capsule Take 20 mg by mouth in the morning and 20 mg in the evening. Take before meals. 06/01/2023 Active Start: 05-11-2018 take 1 tablet by ploi th twice daily Omeprazole 20 MG Oral Tablet Delayed Release TAKE 1 TABLET BY MOUTH TWICE DAILY Quantity: 180 Refills: 2 Ronnie Murphy MD Start : 11-May-2018 Active Start: 05-10-2018 omeprazole 20 mg, Oral, Daily, Oral, 0 Refill(s), Refills(s) 0 Start Date: 05/10/18 Status: Ordered ozempic (0.25 or 0.5 mg/dose ) 2 mg/3ml solution pen-injector (4 sources) Start: 06-07-2023 Ozempic (0.25 or 0.5 MG/DOSE) 2 MG/3ML 0.25 mg Subcutaneous weekly for 30 days Via samples Jun, Active Ozempic (0.25 or 0.5 MG/DOSE) 2 MG/3ML 0.25 mg Subcutaneous weekly for 90 days Active inject 0.5 mg by sub cutaneous injection every week Ozempic (0.25 or 0.5 MG/DOSE) 2 MG/3ML 0.5 mg Subcutaneous weekly for 90 days Active risperiDONE 2 mg oral tablet (20 sources) Atypical Antipsychotic Start: 11-28-2014 risperi DONE 2 MG Oral Tablet Quantity: 30 Refills: 0 Ordered: 17-Jan-2015 DO Start : 28-Nov-2014 Active Start: 12-25-2012 take 1 tablet by poli th in the morning risperiDONE (RisperDAL) 2 MG tablet Take 2 mg by mouth in the morning. 12/25/2012 Active 0.25 mg, 0.5 mg dose 1.5 ml semaglutide 1.34 mg/ml pen injector (12 sources) End: 02-22-2023 inject 0.25 mg by subcutaneous injection every week semaglutide (Ozempic, 0.25 or 0.5 MG/DOSE,) 2 MG/1.5ML solution pen-injector Inject 0.25 mg under the skin 1 (one) time per week. Active Ozempic (0.25 or 0.5 MG/DOSE) 2 MG/1.5ML SOPN weekly Quantity: 0 Refills: 0 Ordered: 01-Jun-2022 DO Active Semaglutide (7 sources) Start: 06-20-2023 Semaglutide (Ozempic) 0.25 mg or 0.5 mg (2 mg/3 mL) pen injector Active 0.5 MG SUBCUT every week June 20, 2023 1:00am PAP approved thru simvastatin 40 mg oral tablet (20 sources) HMG-CoA Reductase Inhibitor Start: 04-04-2023 take 1 tablet by mouth once daily in the evening simvastatin (Zocor) 40 MG tablet Indications: Mixed hyperlipidemia (CMS/HCC) TAKE 1 TABLET BY MOUTH EVERY DAY IN THE EVENING FOR 90 DAYS 100 tablet 3 04/04/2023 Active Simvastatin 40 M G Oral Tablet Quantity: 0 Refills: 0 Ordered: 11-Dec-2013 DO Active venlafaxine 75 mg oral tablet (20 sources) Serotonin and Norepinephrine Reuptake Inhibitor Start: 08-01-2023 take 75 mg by mouth twice daily Venlafaxine Active 75 MG PO Twice daily August 01, 2023 12:00am Start: 05-15-2023 Effexor XR 75 mg Cap-ER 75 mg = 1 cap(s), Oral, BID, Oral, 0 Refill(s), Refills(s) 0 Start Date: 05/15/23 Status: Ordered take 1 capsule by [facility] every twenty-four hours in the morning venlafaxine XR (Effexor XR) 75 MG 24 hr capsule Take 75 mg by mouth in the morning and 75 mg before bedtime. Active Effexor 75 MG TA BS Quantity: 0 Refills: 0 Ordered: 11-Dec-2013 DO Active Completed/Discontinued Medications Medication Drug Class(es) Dates Sig (Normalized) Sig (Original) acetaminophen 325 mg / HYDROcodone bitartrate 5 mg oral tablet (7 sources) Opioid Agonist Start: 08-06-2023 End: 08-09-2023 take 1 tablet by mouth every four to six hours Hydrocodone-Acetamin ophen Discontinued 1 TAB PO EVERY 4-6 HOURS 10 3 August 06, 2023 August 09, 2023 11:41am cholecalciferol 0.05 mg oral capsule (20 sources) Vitamin D Start: 08-01-2023 End: 10-19-2023 take 50 ug by mouth once daily Cholecalciferol (Vitamin D3) Discontinued 50 MCG PO Daily August 01, 2023 12:00am October 19, 2023 11:08am Vitamin D3 1.25 MG (37786 UT) TAKE 1 CAPSULE BY MOUTH WEEKLY FOR 56 DAYS for 56 Not-Taking/PRN take 1 capsule by [facility] every twenty-four hours Vitamin D3 50 MCG (2000 UT) 1 capsule Or ally Once a day Active take 1 capsule by mouth once rishi ly Cholecalciferol 1.25 MG (72216 UT) 1 capsule Orally weekly for 56 days when complete take 4000 u daily OTC Not-Taking/PRN take 1 capsule by mouth once rishi ly Cholecalciferol 1.25 MG (57932 UT) 1 capsule Orally weekly for 56 days when complete take 4000 u daily OTC Active dexamethasone 6 mg oral tablet (16 sources) Corticosteroid Start: 04-20-2020 take 1 tablet by mouth every twenty-four hours dexAMETHasone 6 MG 1 tablet Orally Once a day for 5 day(s) Apr, Not-Taking/PRN dextromethorphan hydrobromide 30 mg / pyrilamine maleate 30 mg oral tablet (16 sources) Uncompetitive F-nmhujy-A-[place]part[place] te Receptor Antagonist, Sigma-1 Agonist Start: 04-20-2020 take 1 tablet by mouth every six hours [place] DMT 30-30 MG 1 tablet Orally every [...] 3 ml liraglutide 6 mg/ml pen injector (8 sources) GLP-1 Receptor Agonist Start: 02-01-2023 Victoza 18 MG/3ML 0.6 mg Subcutaneous daily for 30 days Start Victoza at 0.6 mg sq daily x 1 week, increase by 0.6 mg weekly to max dose of 1.8 mg. Hold escalation for toleration issues and call prescriber for instructions. Jan, Not-Taking/PRN mounjaro 2.5 mg/0.5ml solution pen-injector (5 sources) Mounjaro 2.5 MG/0.5ML as directed Subcutaneous weekly for 30 days E11.65 Rx Bin [id number], Group: [id number], [facility], ID: [id number]-- NOT covered Not-Taking/PRN predniSONE 50 mg oral tablet (7 sources) Start: 08-06-2023 End: 08-09-2023 take 50 mg by mouth once daily Prednisone Discontinued 50 MG PO Daily 09 03August 06, 2023 12:00am August 09, 2023 11:41am terbinafine 250 mg oral tablet (4 sources) Allylamine Antifungal Start: 09-25-2015 take 1 tablet by mouth once daily Terbinafine HCl - 250 MG Oral Tablet TAKE 1 TABLET EVERY DAY Quantity: 30 Refills: 0 Start : 25-Sep-2015 Active Problems Active Problems Problem Classification Problem Date Documented Da te Episodic/Chronic Acute bronchitis (18 sources) Acute bronchitis; Translations: [Acute bronchitis] 02-14-2024 Episodic Allergic reactions (8 sources) Allergic condition; Translations: [Allergy, unspecified, initial encounter] 10-05-2023 Episodic Anxiety disorders (20 sources) Mixed anxiety and depressive disorder; Translations: [Other specified anxiety disorders] Chronic Biliary tract disease (2 sources) Acute cholecystitis; Translations: [Acute cholecystitis] Onset: 4 Episodic Chronic obstructive pulmonary disease and bronchiectasis (16 sources) Bronchitis; Translations: [Bronchitis, not specified as acute or chronic] Episodic Diabetes mellitus with complications (20 sources) Type II diabetes mellitus uncontrolled; Translations: [Type 2 diabetes mellitus with hyperglycemia] Onset: 3 Chronic Diabetes mellitus without complication (20 sources) Diabetes mellitus; Translations: [Diabetes mellitus without mention of complication, type II or unspecified type, not stated as uncontrolled] Onset: 3 01-23-2023 Chronic Disorders of lipid metabolism (20 sources) Hyperlipidemia; Translations: [Other and unspecified hyperlipidemia] Onset: 3 Chronic Esophageal disorders (20 sources) Gastroesophageal reflux disease; Translations: [Esophageal reflux] Onset: 1 01-23-2023 Chronic Fluid and electrolyte disorders (1 source) Dehydration; Translations: [DEHYDRATION] Onset: 3 Episodic Genitourinary symptoms and ill-defined conditions (1 source) Personal history of urinary (tract) infections; Translations: [PERS HX URINARY TRACT INFECTIONS] Onset: 3 Episodic Heart valve disorders (7 sources) Rheumatic disorders of both mitral and aortic valves; 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] Onset: 8 09-21-2022 Chronic Malaise and fatigue (20 sources) Other fatigue; Translations: [Weakness] Onset: 3 Episodic Menopausal disorders (2 sources) Decreased estrogen level; Translations: [Other primary ovarian failure] 02-14-2024 Chronic Menopausal disorders (1 source) Hormone replacement therapy; Translations: [HORMONE REPLACEMENT THERAPY] Onset: 3 Episodic Mood disorders (20 sources) Bipolar disorder; Translations: [Bipolar disorder, unspecified] Onset: 8 08-01-2023 Chronic Nausea and vomiting (1 source) Nausea with vomiting, unspecified; Translations: [NAUSEA WITH VOMITING UNSPECIFIED] Onset: 3 Episodic Nutritional deficiencies (20 sources) Vitamin D deficiency; Translations: [Vitamin D deficiency, unspecified] Onset: 3 Chronic Other aftercare (1 source) alf (current) use of oral hypoglycemic drugs; 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] Onset: 3 Episodic Other aftercare (1 source) Other retirement (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; Translations: [OTH HALFWAY CURRENT DRUG THERAPY] Onset: 3 Episodic Other and ill-defined heart disease (8 sources) Right ventricular systolic dysfunction; Translations: [Other ill-defined heart diseases] Onset: 3 09-21-2022 Chronic Other and ill-defined heart disease (8 sources) Left ventricular hypertrophy; Translations: [Cardiomegaly] Onset: 3 09-21-2022 Chronic Other connective tissue disease (4 sources) Trigger finger of left hand; Translations: [Trigger finger, unspecified finger] 02-14-2024 Episodic Other ear and sense organ disorders (16 sources) Impacted cerumen; Translations: [Impacted cerumen] Episodic Other endocrine disorders (8 sources) Disorder of adrenal gland; Translations: [Disorder of adrenal gland, unspecified] 08-01-2023 Chronic Other endocrine disorders (12 sources) Disorder of adrenal gland, unspecified; Translations: [Unspecified disorder of adrenal glands] Onset: 4 Chronic Other gastrointestinal disorders (6 sources) Heartburn; Translations: [HEARTBURN] Onset: 3 Episodic Other gastrointestinal disorders (1 source) Diarrhea, unspecified; Translations: [DIARRHEA UNSPECIFIED] Onset: 3 Episodic Other gastrointestinal disorders (7 sources) Heartburn; Translations: [Heartburn] 08-01-2023 Episodic Other lower respiratory disease (12 sources) Snoring; Translations: [Other respiratory abnormalities] Episodic Other lower respiratory disease (7 sources) Snoring; Translations: [Snoring] 08-01-2023 Episodic Other nutritional; endocrine; and metabolic disorders (20 sources) Body mass index 40+ - severely obese; Translations: [Morbid obesity] Onset: 3 01-23-2023 Chronic Other nutritional; endocrine; and metabolic disorders (20 sources) Obesity; Translations: [Obesity, unspecified] 08-01-2023 Chronic Other nutritional; endocrine; and metabolic disorders (20 sources) Obesity, unspecified; Translations: [Obesity, unspecified] Onset: 3 Chronic Other nutritional; endocrine; and metabolic disorders (16 sources) Body mass index (BMI) 40.0-44.9, adult; Translations: [Body Mass Index 40.0-44.9, adult] Chronic Other nutritional; endocrine; and metabolic disorders (6 sources) Lipoprotein deficiency disorder; Translations: [Lipoprotein deficiency] Onset: 3 09-21-2022 Chronic Other nutritional; endocrine; and metabolic disorders (4 sources) Morbid obesity; Translations: [Morbid (severe) obesity due to excess calories] Onset: 3 09-21-2022 Chronic Other upper respiratory disease (4 sources) Allergic rhinitis; Translations: [Allergic rhinitis, unspecified] Onset: 3 09-21-2022 Chronic Other upper respiratory disease (2 sources) Other specified diseases of upper respiratory tract; Translations: [Other specified diseases of upper respiratory tract] Onset: Episodic Other upper respiratory infections (4 sources) Acute pharyngitis, unspecified; Translations: [Acute pharyngitis] 10-05-2023 Episodic Residual codes; unclassified (4 sources) Sleep apnea; Translations: [Unspecified sleep apnea] 05-18-2023 Chronic Residual codes; unclassified (20 sources) Obstructive sleep apnea syndrome; Translations: [Obstructive sleep apnea (adult) (pediatric)] Onset: 8 01-23-2023 Chronic Residual codes; unclassified (17 sources) Obstructive sleep apnea (adult) (pediatric); Translations: [Obstructive sleep apnea (adult)(pediatric)] Onset: 3 Chronic Residual codes; unclassified (6 sources) Dependence on biphasic positive airway pressure ventilation; Translations: [Dependence on other enabling machines and devices] Onset: 3 09-21-2022 Chronic Thyroid disorders (20 sources) Hypothyroidism; Translations: [Unspecified acquired hypothyroidism] Onset: 8 Chronic Comment on above: Added by Problem Lis t Migration; 2013-02-28; Moved to Suppressed Mar 24 2013 9:03PM; Outside Source Comme nt: Comment on above: Added by Problem List Migration; 2013-02-28; Moved to Suppressed Mar 24 2013 9:03PM; Unclassified (1 source) CONTACT W/AND (SUSP) EXPOS COVID-19; Translations: [CONTACT W/AND (SUSP) EXPOS COVID-19] Onset: 3 Unclassified (2 sources) Patient encounter status 02-14-2024 Past or Other Problems Problem Classification Problem Date Documented Da te Episodic/Chronic Administrative/social admission (1 source) Dietary counseling and surveillance; Translations: [Dietary counseling and surveillance] Onset: 06-07-2023 Episodic Lymphadenitis (6 sources) Disorder of intra-abdominal lymph nodes; Translations: [Localized enlarged lymph nodes] Onset: 09-22-2022 09-22-2022 Episodic Other and unspecified benign neoplasm (6 sources) Tubular adenoma of colon; Translations: [Benign neoplasm of colon, unspecified] Onset: 09-21-2022 09-21-2022 Episodic Other connective tissue disease (1 source) Pain in left arm; Translations: [Pain in left arm] Onset: 08-06-2023 Episodic Other gastrointestinal disorders (18 sources) Dysphagia; Translations: [Dysphagia, unspecified] Onset: 01-23-2023 01-23-2023 Episodic Other gastrointestinal disorders (4 sources) Esophageal dysphagia; Translations: [Other dysphagia] Onset: 09-21-2022 09-21-2022 Episodic Other liver diseases (6 sources) Large liver; Translations: [Hepatomegaly, not elsewhere classified] Onset: 09-22-2022 09-22-2022 Episodic Other lower respiratory disease (5 sources) Dyspnea; Translations: [Other respiratory abnormalities] Onset: 01-23-2023 01-23-2023 Episodic Other lower respiratory disease (1 source) Other forms of dyspnea; Translations: [OTHER FORMS OF DYSPNEA] Onset: 05-13-2022 Episodic Other lower respiratory disease (6 sources) Dyspnea on exertion; Translations: [Other forms of dyspnea] Onset: 09-21-2022 09-21-2022 Episodic Other nervous system disorders (1 source) Paresthesia of skin; Translations: [Paresthesia of skin] Onset: 08-06-2023 Episodic Other non-epithelial cancer of skin (4 sources) Basal cell carcinoma of cheek; Translations: [Basal cell carcinoma of skin of other parts of face] Onset: 09-21-2022 09-21-2022 Episodic Other non-traumatic joint disorders (8 sources) Pain in left shoulder; Translations: [Left shoulder pain] Onset: 08-06-2023 08-06-2023 Episodic Other screening for suspected conditions (not mental disorders or infectious disease) (20 sources) Echocardiogram abnormal; Translations: [Nonspecific (abnormal) findings on radiological and other examination of other intrathoracic organs] Onset: 05-11-2022 Episodic Other upper respiratory disease (20 sources) Stenosis of trachea; Translations: [Other diseases of trachea and bronchus] Onset: 09-21-2022 02-22-2023 Episodic Pancreatic disorders (not diabetes) (19 sources) Other specified diseases of pancreas; Translations: [Fatty pancreas] Onset: 09-22-2022 Episodic Residual codes; unclassified (1 source) Localized edema; Translations: [LOCALIZED EDEMA] Onset: 05-13-2022 Episodic Residual codes; unclassified (1 source) Family history of malignant neoplasm of breast; Translations: [FAMILY HX MALIG NEOPLASM OF BREAST] Onset: 05-13-2022 Episodic Residual codes; unclassified (1 source) Family history of malignant neoplasm of kidney; Translations: [FAM HX MALIGNANT NEOPLASM KIDNEY] Onset: 05-13-2022 Episodic Residual codes; unclassified (6 sources) Never smoked any substance; Translations: [Other specified health status] Onset: 01-23-2023 01-23-2023 Episodic Residual codes; unclassified (6 sources) Edema of lower extremity; Translations: [Localized edema] Onset: 09-21-2022 09-21-2022 Episodic Unclassified (1 source) Exposure to 2019 novel coronavirus; Translations: [Contact with and (suspected) exposure to COVID19] Unclassified (3 sources) Never smoked tobacco; Translations: [Never a smoker] Unclassified (2 sources) Onset: 02-22-2023 02-22-2023 NEGATED: Highlighted row has not occurred!Residual codes; unclassified (12 sources) Disease Episodic Results Test Name Value Interpretation Reference Range Facility Corticotropinon 04-10-2024 Corticotropin (P) [Mass/Vol] 37.5 pg/mL Normal 7.2-63.3 [facility] Comment on above: Result Comment: INTE RPRETIVE INFORMATION: Adrenocorticotropic Hormone Reference interval based on samples collected between 7 a.m. and 10 a.m. No reference intervals established for p.m. collections. Pediatric reference values are the same as adults (Acta Paediatr Scand 1981;70:341-345). This assay measures intact ACTH 1-39; some types of synthetic ACTH and ACTH fragments are not detected by this assay. Performed By: [facility] [address] [place] [address] Leather Carver: Geronimo Gomez MD, PhD CLIA Number: [id number] Performed By: #### 2 141-0 #### [facility] (VICTOR MMIN[facility]) ([id number]) [address] [place] [address] Cortisolon 04-10-2024 Cortisol [Mass/Vol] 9.7 ug/dL Normal 2.5-20.0 [facility] Comment on above: Performed By: #### 2 143-6 #### IDANIA Alexandre ([id number]) [facility] ([facility]) [address] [place] [address] Dehydroepiandrosterone sulfa meena 04-10-2024 DHEA-S [Mass/Vol] 106 ug/dL Normal 13-130 [facility] Comment on above: Order Comment: [facility]-BASED REFERENCE RANGES: PUBERTAL (CHELSEA) STAGE MALE FEMALE I 5 - 265 5 - 125 II 15 - 380 15 - 150 III 60 - 505 20 - 535 IV 65 - 560 35 - 485 V 165 - 500 75 - 530 Biotin interference may cause falsely elevated results. Patients taking a Biotin dose of up to 5 mg/day should refrain from taking Biotin for 24 hours before sample collection. Providers may contact their local laboratory for further information. Performed By: #### 2 191-5 #### IDANIA Alexandre ([id number]) [facility] ([facility]) [address] [place] [address] Dexamethasoneon 04-10-2024 Dexamethasone [Mass/Vol] <50.0 [facility] Comment on above: Result Comment: INTE RPRETIVE INFORMATION: Dexamethasone, Serum or Plasma by LC-MS/MS Adults baseline: Less than 50 ng/dL 8:00 AM draw following 1 mg dexamethasone between 11:00 pm and 12:00 am the previous evenin - 295 ng/dL 8:00 AM draw following 8 mg dexamethasone (4 x 2 mg doses) between 11:00 pm and 12:00 am the previous evenin - 2850 ng/dL This test was developed and its performance characteristics determined by [facility]. It has not been cleared or approved by the US Food and Drug Administration. This test was performed in a CLIA certified laboratory and is intended for clinical purposes. Performed By: [facility] [address] [place] [address] Leather Carver: Geronimo Gomez MD, PhD [place] Number: [id number] Performed By: #### 1 4062-4 #### [facility] (VICTOR MMIN[facility]) ([id number]) [address] [place] [address] HbA1c (Bld) [Mass fraction]o n 04-10-2024 Average glucose Estimated from glycated hemoglobin (Bld) [Mass/Vol] 123 mg/dL Normal Not Established [facility] Comment on above: Order Comment: Diagn osis of Diabetes-Adults Non-Diabetic: < or = 5.6% Increased risk for developing diabetes: 5.7-6.4% Diagnostic of diabetes: > or = 6.5% Performed By: #### 4 548-4 #### IDANIA Alexandre ([id number]) [facility] ([facility]) [address] [place] [address] Hemoglobin A1c/Hemoglobin.to magdiel 04-10-2024 HbA1c (Bld) [Mass fraction] 5.9 % High See comment [facility] Comment on above: Order Comment: Diagn osis of Diabetes-Adults Non-Diabetic: < or = 5.6% Increased risk for developing diabetes: 5.7-6.4% Diagnostic of diabetes: > or = 6.5% Performed By: #### 4 548-4 #### IDANIA Alexandre ([id number]) [facility] ([facility]) [id number] [place], [place] [id number] METANEPHRINES PLASMAon 04-10 Annotation comment [Interpretation] Narrative See Note Normal [facility] Comment on above: Result Comment: INTE RPRETIVE INFORMATION: Metanephrines, Plasma (Free) This test is useful in the detection of pheochromocytoma, a rare neuroendocrine tumor. The majority of patients with pheochromocytoma have a plasma normetanephrine concentration in excess of 2.2 nmol/L and/or a metanephrine concentration in excess of 1.1 nmol/L. Increased concentrations of these analytes serve as confirmation for diagnosis. Patients with essential hypertension and plasma concentrations of normetanephrine below 0.9 nmol/L and a metanephrine concentration below 0.5 nmol/L, can be excluded from further testing. If clinical suspicion remains, repeat testing or testing for metanephrines in a 24-hr. urine specimen should be considered. This test was developed and its performance characteristics determined by [facility]. It has not been cleared or approved by the US Food and Drug Administration. This test was performed in a CLIA certified laboratory and is intended for clinical purposes. Performed By: [facility] [address] [place] [address] Leather Carver: Geronimo Gomez MD, PhD CLIA Number: [id number] Performed By: #### M ETPL #### [facility] ([id number]) [address] [place] [address] Metanephrines [Moles/Vol] <0.10 Normal 0.00-0.49 [facility] Comment on above: Performed By: #### M ETPL #### [facility] ([id number]) [address] [place] [address] Normetanephrine Free [Moles/Vol] 0.51 nmol/L Normal 0.00-0.89 [facility] Comment on above: Performed By: #### M ETPL #### [facility] ([id number]) [address] [place] [address] Renal function 2000 panelon 04-10-2024 Albumin BCP dye [Mass/Vol] 4.3 g/dL Normal 3.4-5.0 [facility] Comment on above: Performed By: #### 2 4362-6 #### IDANIA Alexandre ([id number]) [facility] ([facility]) [address] [place] [address] Anion gap [Moles/Vol] 14 mmol/L Normal 10-20 [facility] Comment on above: Performed By: #### 2 4362-6 #### IDANIA MASTERSON L ([id number]) [facility] ([facility]) [address] [place] [address] Calcium [Mass/Vol] 9.7 mg/dL Normal 8.6-10.6 [facility] Comment on above: Performed By: #### 2 4362-6 #### IDANIA MASTERSON L ([id number]) [facility] ([facility]) [address] [place] [address] Chloride [Moles/Vol] 102 mmol/L Normal 98-107 [facility] Comment on above: Performed By: #### 2 4362-6 #### IDANIA MASTERSON L ([id number]) [facility] ([facility]) [address] [place] [address] CO2 [Moles/Vol] 28 mmol/L Normal 21-32 [facility] Comment on above: Performed By: #### 2 4362-6 #### IDANIA Alexandre ([id number]) [facility] ([facility]) [address] [place] [address] Creatinine [Mass/Vol] 0.67 mg/dL Normal 0.50-1.05 [facility] Comment on above: Performed By: #### 2 4362-6 #### IDANIA Alexandre ([id number]) [facility] ([facility]) [address] [place] [address] GFR/1.73 sq M.predicted MDRD (S/P/Bld) [Vol rate/Area] mL/min/{1.73_m2} Normal >60 [facility] Comment on above: Result Comment: Calc ulations of estimated GFR are performed using the 2020 CKD-EPI Study Refit equation without the race variable for the IDMS-Traceable creatinine methods. https://jasn.asnjournals.org/content/early/ASN.2020 511202 Performed By: #### 2 4362-6 #### IDANIA Alexandre ([id number]) [facility] ([facility]) [address] [place] [address] Glucose [Mass/Vol] 101 mg/dL High 74-99 [facility] Comment on above: Performed By: #### 2 4362-6 #### IDANIA Alexandre ([id number]) [facility] ([facility]) [address] [place] [address] Phosphate [Mass/Vol] 3.9 mg/dL Normal 2.5-4.9 [facility] Comment on above: Result Comment: The performance characteristics of phosphorus testing in heparinized plasma have been validated by the individual laboratory site where testing is performed. Testing on heparinized plasma is not approved by the FDA; however, such approval is not necessary. Performed By: #### 2 4362-6 #### IDANIA Alexandre ([id number]) [facility] ([facility]) [address] [place] [address] Potassium [Moles/Vol] 4.4 mmol/L Normal 3.5-5.3 [facility] Comment on above: Performed By: #### 2 4362-6 #### IDANIA Alexandre ([id number]) [facility] ([facility]) [address] [place] [address] Sodium [Moles/Vol] 140 mmol/L Normal 136-145 [facility] Comment on above: Performed By: #### 2 4362-6 #### IDANIA Alexandre ([id number]) [facility] ([facility]) [address] [place] [address] Urea nitrogen [Mass/Vol] 12 mg/dL Normal 6-23 [facility] Comment on above: Performed By: #### 2 4362-6 #### IDANIA Alexandre ([id number]) [facility] ([facility]) [address] [place] [address] Thyroperoxidase Abon 024 TPO Ab Qn 275 [IU]/mL High <=60 [facility] Comment on above: Order Comment: Negat dorothy: <=60 U/mL Positive: >60 U/mL Performed By: #### 8 099-4 #### IDANIA Alexandre ([id number]) [facility] ([facility]) [address] [place] [address] Thyrotropinon 04-10-2024 TSH Qn 3.61 m[IU]/L Normal 0.44-3.98 [facility] Comment on above: Order Comment: TSH t esting is performed using different testing methodology at [facility] than at other [facility]. Direct result comparisons should only be made within the same method. Performed By: #### 3 016-3 #### IDANIA Alexandre ([id number]) [facility] ([facility]) [address] [place] [address] Thyroxine.freeon 12-10-2024 Free T4 [Mass/Vol] 1.46 ng/dL Normal 0.78-1.48 [facility] Comment on above: Order Comment: Thyro xine Free testing is performed using different testing methodology at [facility] than at other [facility]. Direct result comparisons should only be made within the same method. Performed By: #### 3 024-7 #### IDANIA Alexandre ([id number]) [facility] ([facility]) [address] [place] [address] Laboratory - Hematology and Cell countson 02-14-2024 HbA1c (Bld) [Mass fraction] 5.9 % [facility] No Panel Informationon 02-13 [facility] Creatinine [Mass/volume] in UrineOrdered By: Lilliam Montejo on 10-19-2023 Creatinine (U) [Mass/Vol] 162.00 mg/dL [facility] Comment on above: No reference range e stablished HbA1c HPLC (Bld) [Mass fract ion]on 10-19-2023 HbA1c (Bld) [Mass fraction] 6.0 % [facility] MicroAlb Creat Ratio,Uon Creatinine, Urine (Random) 162.00 mg/dL Normal [facility] Comment on above: Result Comment: No r eference range established Performed By: #### U RMACRERAT ####[place] [address] [place] [address] [facility] Microalbumin/Creatinine Ratio 4.3 mg/g Normal 0.0-30.0 [facility] Comment on above: Result Comment: 30-3 00 mg/g indicates an increased risk for diabetic nephropathy. Greater than 300 mg/g is consistent with clinical nephropathy. (Am. J. Kidney Disease 1995, 25:107) PERFORMED BY: [facility] [address] [place] [address] PATHOLOGIST MANAGER ARCHITECTURE OLAMIDE NICE M.D. Performed By: #### U RMACRERAT ####[place] [address] [place] [address] [facility] Microalbumin [Mass/volume] i n UrineOrdered By: Lilliam Montejo on 10-19-2023 Albumin DL <= 20 mg/L (U) [Mass/Vol] 0.7 mg/dL Normal 0.0-1.8 [facility] Comment on above: Performed By: #### U RMACRERAT ####[facility] [address] No Panel Informationon 10-18 Bedside Glucose 98 [facility] Urine microalbumin/creatinin e mass ratioOrdered By: Lilliam Montejo on 10-19-2023 Albumin/Creatinine DL <= 20 mg/L (U) [Mass ratio] 4.3 mg/g 0.0-30.0 [facility] Comment on above: 30-300 mg/g indicate s an increased risk for diabetic nephropathy. Greater than 300 mg/g is consistent with clinical nephropathy. (Am. J. Kidney Disease 1995, 25:107) No Panel InformationOrdered By: Maricel Jones on 10-05-2023 Quick Strep (POC) [facility] US venous duplex UE LTon US venous duplex UE LT [facility] [address] [place] [address] Ultrasound Report Signed Patient: Bette Villafana MR#: [id number] 969 : 1955 Acct:[id number] Age/Sex: 68 / F ADM Date: 08/06/23 Loc: ER Room: Type: [facility] ER Attending Dr: Ordering Provider: Serg Boucher DO Date of Service: 08/06/23 US/US venous duplex UE LT: arm pain Copies to: Serg Boucher DO Left upper extremity venous duplex examination Indication for study: Left arm pain PROCEDURE: Color-flow duplex scanning is used to interrogate the venous anatomy of the left upper extremity. The left jugular vein is compressible with good color flow. The right and left subclavian veins and the left axillary vein show good compressibility, color-flow, and augmentation. The paired brachial veins, basilic vein, and cephalic vein all compress. US/US venous duplex UE LT IMPRESSION: No evidence for deep vein thrombosis or superficial thrombophlebitis in the left upper extremity Impression dictated by: Isacc Martinez M.D.08/08/2023 9:31 AM Dictation Location: [place] [address] Tech: Camila De Anda Transcribed By: MARIBETH 08/08/23930 Dictated By: Isacc Martinez MD 08/08/23930 Signed By: 08/08/23930 Normal [facility] Activated partial thrombopla stin time (aPTT) in platelet poor plasma by coagulation aOrdered By: Serg Boucher on 08-06-2023 aPTT Coag (PPP) [Time] 27.8 s 25.1-36.5 [facility] Comment on above: A hematocrit value g reater than 55% may lead to inaccurate results in coagulation testing. Patients having hematocrit values >55% require a special collection tube for coagulation studies. Please contact the laboratory at [phone] for redraw instructions. Automated basophil %Ordered By: Serg Boucher on 08-06-2023 Basophils/100 WBC (Bld) 1.1 % Normal . [facility] Comment on above: Performed By: #### B MP, CBC, CK, PTT, HS TROP, BNP, PT #### [facility] [address] [place] [address] Automated basophil countOrde red By: Serg Boucher on 08-06-2023 Basophils (Bld) [#/Vol] 0.1 10*3/uL Normal 0.0-0.2 [facility] Comment on above: Result Comment: PERF ORMED BY: [place] [address] PATHOLOGIST MANAGER ARCHITECTURE OLAMIDE NICE M.D. Performed By: #### B MP, CBC, CK, PTT, HS TROP, BNP, PT #### [facility] [address] [place] [address] Automated blood monocyte cou ntOrdered By: Serg Boucher on 08-06-2023 Monocytes (Bld) [#/Vol] 0.8 10*3/uL Normal 0.0-0.8 [facility] Comment on above: Performed By: #### B MP, CBC, CK, PTT, HS TROP, BNP, PT #### [address] Automated eosinophil %Ordere d By: Serg Boucher on 08-06-2023 Eosinophils/100 WBC (Bld) 1.0 % Normal . [facility] Comment on above: Performed By: #### B MP, CBC, CK, PTT, HS TROP, BNP, PT #### [address] Automated eosinophil countOr dered By: Serg Boucher on 08-06-2023 Eosinophils (Bld) [#/Vol] 0.1 10*3/uL Normal 0.0-0.45 [facility] Comment on above: Performed By: #### B MP, CBC, CK, PTT, HS TROP, BNP, PT #### [address] Automated monocyte %Ordered By: Serg Boucher on 08-06-2023 Monocytes/100 WBC (Bld) 6.7 % Normal . [facility] Comment on above: Performed By: #### B MP, CBC, CK, PTT, HS TROP, BNP, PT #### [address] Automated neutrophil %Ordere d By: Serg Boucher on 08-06-2023 Neutrophils/100 WBC (Bld) 74.6 % Normal . [facility] Comment on above: Performed By: #### B MP, CBC, CK, PTT, HS TROP, BNP, PT #### [address] BNP ser/plasOrdered By: Delores Boucher on 08-06-2023 Natriuretic peptide B (Bld) [Mass/Vol] 38.0 pg/mL Normal 5-100 [facility] Comment on above: Result Comment: PERF ORMED BY: [place] [address] PATHOLOGIST MANAGER ARCHITECTURE OLAMIDE NICE M.D. Performed By: #### B MP, CBC, CK, PTT, HS TROP, BNP, PT #### [address] Basic Metabolic Panelon Creatinine Clr Calc Pharmacy 88.45 Normal [facility] Comment on above: Result Comment: PERF ORMED BY: [place] [address] PATHOLOGIST MANAGER ARCHITECTURE OLAMIDE NICE M.D. Performed By: #### B MP, CBC, CK, PTT, HS TROP, BNP, PT #### [address] GFR/1.73 sq M.predicted MDRD (S/P/Bld) [Vol rate/Area] mL/min/{1.73_m2} Normal [facility] Comment on above: Performed By: #### B MP, CBC, CK, PTT, HS TROP, BNP, PT #### [place] [address] [place] Calcium [Mass/volume] in Ser um or PlasmaOrdered By: Serg Boucher on 08-06-2023 Calcium [Mass/Vol] 8.7 mg/dL Normal 8.6-10.3 [facility] Comment on above: Performed By: #### B MP, CBC, CK, PTT, HS TROP, BNP, PT #### [place] [address] [place] Carbon dioxide, total [Moles /volume] in Serum or PlasmaOrdered By: Serg Boucher on 08-06-2023 CO2 [Moles/Vol] 26.4 mmol/L Normal 21.0-31.0 [facility] Comment on above: Performed By: #### B MP, CBC, CK, PTT, HS TROP, BNP, PT #### [place] [address] [place] Chloride [Moles/volume] in S julieth or PlasmaOrdered By: Serg Boucher on 08-06-2023 Chloride [Moles/Vol] 106 mmol/L Normal 98-107 [facility] Comment on above: Performed By: #### B MP, CBC, CK, PTT, HS TROP, BNP, PT #### [address] Complete Blood Count Auto Di ffon 08-06-2023 Mean Corpuscular HGB Conc 32.5 g/dL Normal 32.0-35.0 [facility] Comment on above: Performed By: #### B MP, CBC, CK, PTT, HS TROP, BNP, PT #### [address] Monocytes/100 WBC (Bld) 15.33 % Normal 0.00-20.00 [facility] Comment on above: Performed By: #### B MP, CBC, CK, PTT, HS TROP, BNP, PT #### [address] NRBC% 0.1 /100{WBC} Normal 0-0.5 [facility] Comment on above: Performed By: #### B MP, CBC, CK, PTT, HS TROP, BNP, PT #### [address] Creatine kinase [Enzymatic a ctivity/volume] in Serum or PlasmaOrdered By: Serg Boucher on 08-06-2023 CK [Catalytic activity/Vol] 91 U/L Normal 30-223 [facility] Comment on above: Performed By: #### B MP, CBC, CK, PTT, HS TROP, BNP, PT #### [address] Creatinine [Mass/volume] in Serum or PlasmaOrdered By: Serg Boucher on 08-06-2023 Creatinine [Mass/Vol] 0.67 mg/dL Normal 0.60-1.20 [facility] Comment on above: Performed By: #### B MP, CBC, CK, PTT, HS TROP, BNP, PT #### [address] ECG 12 lead ECGon 08-06-2023 ECG 12 lead ECG [facility] Main [facility] [address] [place] [address] Electrocardiograph Report Signed Patient: Bette Villafana MR#: [id number] 969 : 1955 Acct:[id number] Age/Sex: 68 / F ADM Date: 08/06/23 Loc: ER Room: Type: [facility] ER Attending Dr: Ordering Provider: Serg Boucher DO Date of Service: 08/06/2310/23/1033 ECG/ECG 12 lead ECG: Extremity Injury, Upper Copies to: Test Reason : Blood Pressure : / mmHG Vent. Rate : 075 BPM Atrial Rate : 075 BPM P-R Int : 138 ms QRS Dur : 086 ms QT Int : 370 ms P-R-T Axes : 021 013 020 degrees QTc Int : 413 ms Normal sinus rhythm Nonspecific T wave abnormality Abnormal ECG When compared with ECG of 27-JUL-2008 16:56, Nonspecific T wave abnormality now evident in Inferior leads Nonspecific T wave abnormality now evident in Lateral leads Confirmed by Serg Boucher DO ([id number]) on 08/06/2023 2:48:28 PM Referred By: Electronically Signed By:Serg Boucher DO Transcribed By: MUS Signed By Serg Boucher DO 4 1448 Normal [facility] Erythrocyte distribution wid th [Ratio] by Automated countOrdered By: Serg Boucher on 08-06-2023 Erythrocyte distribution width (RBC) [Ratio] 14.6 % Normal 11.9-15.3 [facility] Comment on above: Performed By: #### B MP, CBC, CK, PTT, HS TROP, BNP, PT #### [facility] [address] [place] [address] [place] Erythrocytes [#/volume] in B lood by Automated countOrdered By: Serg Boucher on 08-06-2023 RBC (Bld) [#/Vol] 3.68 10*6/uL Normal 3.60-5.00 [facility] Comment on above: Performed By: #### B MP, CBC, CK, PTT, HS TROP, BNP, PT #### [facility] [address] [place] [id number] [place] Glucose [Mass/volume] in Ser um or PlasmaOrdered By: Serg Boucher on 08-06-2023 Glucose [Mass/Vol] 111 mg/dL High 70-100 [facility] Comment on above: ADA recommended refe rence rangeRandom Glucose Reference Range is dependent on time and content of last meal. Glucose of more than 200 mg/dL in a nonstressed, ambulatory subject supports the diagnosis of Diabetes Mellitus. Result Comment: [place] om Glucose Reference Range is dependent on time and content of last meal. Glucose of more than 200 mg/dL in a nonstressed, ambulatory subject supports the diagnosis of Diabetes Mellitus. ADA recommended reference range Performed By: #### B MP, CBC, CK, PTT, HS TROP, BNP, PT #### [address] Hematocrit [Volume Fraction] of Blood by Automated countOrdered By: Serg Boucher on 08-06-2023 Hematocrit (Bld) [Volume fraction] 33.0 % Low 34.0-46.4 [facility] Comment on above: Performed By: #### B MP, CBC, CK, PTT, HS TROP, BNP, PT #### [address] Hemoglobin [Mass/volume] in BloodOrdered By: Serg Boucher on 08-06-2023 Hemoglobin (Bld) [Mass/Vol] 10.7 g/dL Low 11.8-15.4 [facility] Comment on above: Performed By: #### B MP, CBC, CK, PTT, HS TROP, BNP, PT #### [address] INR in Platelet poor plasma by Coagulation assayOrdered By: Serg Boucher on 08-06-2023 INR Coag (PPP) [Relative time] 1.0 {INR} Normal [facility] Comment on above: INR Therapeutic Rang e A) Pre- and Peroperative OAT started two weeks before surgery. NOT HIP SURGERY: 1.5 - 2.5 HIP SURGERY: 2 - 3B) Primary and secondary prevention of venous THROMBOSIS: 2 - 3C) Active venous thrombosis, pulmonary embolismand prevention of recurrent venous thrombosis: 2 - 3D) Prevention of arterial thromboembolismincluding patients with mechanical heart valves: 3 - 4.5 Result Comment: INR Therapeutic Range A) Pre- and Peroperative OAT started two weeks before surgery. NOT HIP SURGERY: 1.5 - 2.5 HIP SURGERY: 2 - 3 B) Primary and secondary prevention of venous THROMBOSIS: 2 - 3 C) Active venous thrombosis, pulmonary embolism and prevention of recurrent venous thrombosis: 2 - 3 D) Prevention of arterial thromboembolism including patients with mechanical heart valves: 3 - 4.5 Performed By: #### B MP, CBC, CK, PTT, HS TROP, BNP, PT #### [facility] [address] Leukocytes [#/volume] correc julian for nucleated erythrocytes in Blood by Automated counOrdered By: Serg Boucher on 08-06-2023 WBC corrected for nucl RBC Auto (Bld) [#/Vol] 11.6 10*3/uL 3.8-11.6 [facility] Leukocytes [#/volume] in Blo od by Automated countOrdered By: Serg Boucher on 08-06-2023 WBC (Bld) [#/Vol] 11.6 10*3/uL Normal 3.8-11.6 [facility] Comment on above: Performed By: #### B MP, CBC, CK, PTT, HS TROP, BNP, PT #### [place] [address] [place] Lymphocytes [#/volume] in Bl ood by Automated countOrdered By: Serg Boucher on 08-06-2023 Lymphocytes (Bld) [#/Vol] 1.9 10*3/uL Normal 1.00-4.8 [facility] Comment on above: Performed By: #### B MP, CBC, CK, PTT, HS TROP, BNP, PT #### [facility] [address] [place] [address] [place] Lymphocytes/100 leukocytes i n Blood by Automated countOrdered By: Serg Boucher on 08-06-2023 Lymphocytes/100 WBC (Bld) 16.6 % Normal . [facility] Comment on above: Performed By: #### B MP, CBC, CK, PTT, HS TROP, BNP, PT #### [place] [address] [place] MCH [Entitic mass] by Automa julian countOrdered By: Serg Boucher on 08-06-2023 MCH (RBC) [Entitic mass] 29.2 pg Normal 24.7-34.3 [facility] Comment on above: Performed By: #### B MP, CBC, CK, PTT, HS TROP, BNP, PT #### [facility] [address] MCHC Auto (RBC) [Mass/Vol]Or dered By: Serg Boucher on 08-06-2023 MCHC (RBC) [Mass/Vol] 32.5 g/dL 32.0-35.0 [facility] MCV [Entitic volume] by Auto mated countOrdered By: Serg Boucher on 08-06-2023 MCV (RBC) [Entitic vol] 89.6 fL Normal 80-100 [facility] Comment on above: Performed By: #### B MP, CBC, CK, PTT, HS TROP, BNP, PT #### [facility] [address] [place] [address] Monocyte distribution width [Entitic volume] in Blood by AutomatedOrdered By: Serg Boucher on 08-06-2023 Monocyte distribution width Auto (Bld) [Entitic vol] 15.33 % 0.00-20.00 [facility] Neutrophils [#/volume] in Bl ood by Automated countOrdered By: Serg Boucher on 08-06-2023 Neutrophils (Bld) [#/Vol] 8.7 10*3/uL High 1.8-7.7 [facility] Comment on above: Performed By: #### B MP, CBC, CK, PTT, HS TROP, BNP, PT #### [facility] [address] [place] [address] No Panel InformationOrdered By: Serg Boucher on 08-06-2023 Estimated GFR (CKD-EPI) > 60.0 mL/Min [facility] Creatinine Clearance (Chem 88.45 [facility] Nucleated erythrocytes [Pres ence] in Blood by Automated countOrdered By: Serg Boucher on 08-06-2023 Nucleated RBC Auto Ql (Bld) 0.1 /100{WBC} 0-0.5 [facility] Partial Thromboplastin Timeo n 08-06-2023 aPTT Coag (Bld) [Time] 27.8 s Normal 25.1-36.5 [facility] Comment on above: Result Comment: A he matocrit value greater than 55% may lead to inaccurate results in coagulation testing. Patients having hematocrit values >55% require a special collection tube for coagulation studies. Please contact the laboratory at [phone] for redraw instructions. PERFORMED BY: [place] [address] PATHOLOGIST MANAGER ARCHITECTURE OLAMIDE NICE M.D. Performed By: #### B MP, CBC, CK, PTT, HS TROP, BNP, PT #### [address] Platelet mean volume [Entiti c volume] in Blood by Automated countOrdered By: Serg Boucher on 08-06-2023 Platelet mean volume (Bld) [Entitic vol] 7.7 fL Normal 6.3-10.7 [facility] Comment on above: Performed By: #### B MP, CBC, CK, PTT, HS TROP, BNP, PT #### [address] Platelets [#/volume] in Bloo d by Automated countOrdered By: Serg Boucher on 08-06-2023 Platelets (Bld) [#/Vol] 322 10*3/uL Normal 150-450 [facility] Comment on above: Performed By: #### B MP, CBC, CK, PTT, HS TROP, BNP, PT #### [address] Potassium [Moles/volume] in Serum or PlasmaOrdered By: Serg Boucher on 08-06-2023 Potassium [Moles/Vol] 3.9 mmol/L Normal 3.5-5.1 [facility] Comment on above: Performed By: #### B MP, CBC, CK, PTT, HS TROP, BNP, PT #### [address] Prothrombin time (PT)Ordered By: Serg Boucher on 04-06-2024 PT Coag (PPP) [Time] 11.4 s Normal 9.0-12.9 [facility] Comment on above: A hematocrit value g reater than 55% may lead to inaccurate results in coagulation testing. Patients having hematocrit values >55% require a special collection tube for coagulation studies. Please contact the laboratory at [phone] for redraw instructions. Result Comment: A he matocrit value greater than 55% may lead to inaccurate results in coagulation testing. Patients having hematocrit values >55% require a special collection tube for coagulation studies. Please contact the laboratory at [phone] for redraw instructions. Performed By: #### B MP, CBC, CK, PTT, HS TROP, BNP, PT #### [address] Serum or plasma anion gap de terminationOrdered By: Serg Boucher on 08-06-2023 Anion gap [Moles/Vol] 7.5 mmol/L Normal 6.0-15.0 [facility] Comment on above: Performed By: #### B MP, CBC, CK, PTT, HS TROP, BNP, PT #### [address] Sodium [Moles/volume] in Ser um or PlasmaOrdered By: Serg Boucher on 08-06-2023 Sodium [Moles/Vol] 136 mmol/L Normal 136-145 [facility] Comment on above: Performed By: #### B MP, CBC, CK, PTT, HS TROP, BNP, PT #### [address] Troponin I High Sensitivityo n 08-06-2023 Troponin I High Sensitivity 3.0 pg/mL Normal 0.0-15.0 [facility] Comment on above: Result Comment: PERF ORMED BY: [place] [address] PATHOLOGIST MANAGER ARCHITECTURE OLAMIDE NICE M.D. Performed By: #### B MP, CBC, CK, PTT, HS TROP, BNP, PT #### [address] Troponin I.cardiac [Mass/vol ume] in Serum or Plasma by Detection limit <= 0.01 ng/Ordered By: Serg Boucher on 08-06-2023 Troponin I.cardiac DL <= 0.01 ng/mL [Mass/Vol] 3.0 pg/mL 0.0-15.0 [facility] Urea nitrogen [Mass/volume] in Serum or PlasmaOrdered By: Serg Boucher on 08-06-2023 Urea nitrogen [Mass/Vol] 11 mg/dL Normal 7-25 [facility] Comment on above: Performed By: #### B MP, CBC, CK, PTT, HS TROP, BNP, PT #### [facility] [address] XR shoulder LT min 2V*on XR shoulder LT min 2V* [facility] [address] [address] [place] [address] XRay Report Signed Patient: Bette Villafana MR#: [id number] : 1955 Acct:[id number] Age/Sex: 68 / F ADM Date: 08/06/23 Loc: ER Room: Type: [facility] ER Attending Dr: Copies to: Serg Boucher DO Ordering Provider: Serg Boucher DO Date of Service: 08/06/23 XR/XR chest 1V portable: Extremity Injury, Upper ([id number]) XR/XR shoulder LT min 2V*: Extremity Injury, Upper SINGLE VIEW CHEST left shoulder 4 views CLINICAL HISTORY: Left upper arm and numbness on Tuesday. Shortness of breath on exertion. COMPARISON: None FINDINGS: Chest: Heart is normal size. Lungs are clear. No free air. Left shoulder: Mild degenerative changes of the AC and glenohumeral joints without acute bony process. XR/XR chest 1V portable IMPRESSION: CHEST DEMONSTRATES NO ACUTE FINDINGS. LEFT SHOULDER DEMONSTRATES MILD DEGENERATIVE CHANGES WITHOUT ACUTE BONY PROCESS. Impression dictated by: Dexter Flaherty Jr., D.O.08/06/2023 11:22 AM Dictation Location: [place] [address] Transcribed By: [facility] 08/06/23 1122 Dictated By: Dexter Flaherty Jr, DO 08/06/23 1120 Signed By: 08/06/23 1122 Normal [facility] Ambulatory Visit Summaryon 0 06-03-2023 Ambulatory Visit Summary BETTE VILLAFANA :1955 Visit Date:06/03/2023 Ambulatory Visit Instructions Your Diagnosis Gangrenous cholecystitis Your Care Team Attending Physician - Yolis FALK, Emiliano Correa Primary Care Physician - BELLO HILTON MD This Is Your Medications List levothyroxine (levothyroxine 100 mcg (0.1 mg) Tab) lorazepam (Ativan 0.5 mg Tab) metformin (metformin 500 mg Tab) omeprazole risperidone (Risperdal 2 mg Tab) semaglutide (Ozempic 2 mg/3 mL (0.25 mg or 0.5 mg dose) subcutaneous solution) simvastatin (Zocor 40 mg Tab) venlafaxine (Effexor XR 75 mg Cap-ER) Procedures Performed Laparoscopic cholecystectomy (05/16/2023), Breast reduction (2001), History of hernia repair (1962). Discharge Vitals Heart Rate (Peripheral) 91 Blood Pressure 109/78 Height 163 cm Height 64 in Weight 113 kg Weight 248.6 lb BMI 42.53 What to do next Scheduled Follow-Up Appointments Tuesday 2:20 PM EST With: CELIA FALK, Mayito Chowdhury Where: General Surgery Janesl/Kendell Flanagan [facility] General Surgery Office/Clini c Noteon 06-03-2023 General Surgery Office/Clinic Note Chief Complaint s/p cholecystectomy by HPI Staff Bette is a 68 y.o. female here for s/p cholecystectomy done on 05/16/[address] Yang at [facility] Patient denies excessive bleeding/pain/discharge/ fever/chills. last colonoscopy at 64 y.o. [facility] History of Present Illness Bette Villafana is a 68-year-old female status post laparoscopic cholecystectomy performed by Dr. Yang. He is out of town. I am seeing the patient as a postop visit for him. Surgery was done on 05/16/2023 for cholecystitis where she was found to have [id number] gangrenous cholecystitis. During the procedure, a drain was placed on the operative site. The patient had the drain removed already. The patient is tolerating a regular diet, reports some gas, is passing bowel movements without difficulty. Review of Systems PHQ Score Initial Depression Screen Score: 0 SCORE Constitutional: No fever, no sweats, no weight loss. Eyes: No glasses, no blurred vision, no visual loss. ENMT: No dentures, no hoarseness, no swallowing difficulties, no hearing loss, no ear infection(s), no nose bleeds. Cardiovascular: Normal blood pressure, no chest pain, regular heartbeat, no heart murmur. Respiratory: No shortness of breath, no cough, no wheezing, no asthma. Gastrointestinal: No nausea, no vomiting, no diarrhea, no constipation, no blood in stool, no change in bowel habits, no abdominal pain, no hepatitis. Genitourinary: No kidney stones, no urine infection, no difficulty passing urine. Musculoskeletal: No pain, no weakness. Skin: No changing moles, no rash, no skin lumps. Neurologic: No seizures, no epilepsy, no headache. Psychiatric: No emotional, no psychiatric problem. Endocrine: No thyroid, no diabetes. Heme/Lymph: No bleeding problems, no anemia, no blood clots, no transfusions. Allergy/Immunologic: No swollen lymph nodes/glands, no IV drug abuse. Other: Additional ROS info: Except as noted in the above Review of Systems and in the History of Present Illness, all other systems have been reviewed and are negative or noncontributory. Physical Exam Vitals & Measurements HR: 91(Peripheral) BP: 109/78 HT: 64 in HT: 163 cm WT: 113 kg WT: 248.6 lb BMI: 42.53 General: No acute distress Respiratory: Unlabored breathing on room air Cardiac: Regular rate and rhythm Abdomen: Soft nontender nondistended. Incisions are clean, dry, intact and healing well. Assessment/Plan The patient is a 68-year-old female status post laparoscopic cholecystectomy performed at [facility] by Dr. Yang for gangrenous cholecystitis. 1. 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 We will provide a note for this. Portions of this record may have been created with voice recognition artificial intelligence software, specifically [employer], [employer] and or [employer]. Substitutions may have occurred voice recognition and artificial intelligence software. Documentation services were performed after patient or guardian consented to allow uchoose to record this visit. JONAH employee benefits specialist and provider reviewed before signing. JONAH: Tiana Drake Follow-up No qualifying data available Problem List/Past Medical History Ongoing Diabetes mellitus Gangrenous cholecystitis Gastroesophageal reflux disease Hyperlipidemia Hypothyroidism Mixed anxiety and depressive disorder Sleep apnea Stenosis of trachea Vitamin D deficiency Historical No qualifying data Procedure/Surgical History Laparoscopic cholecystectomy (05/16/2023), Breast reduction (2001), History of hernia repair (1962). Medications Ativan 0.5 mg Tab Effexor XR 75 mg Cap-ER, 75 mg= 1 cap(s), Oral, BID levothyroxine 100 mcg (0.1 mg) Tab, 100 mcg= 1 tab(s), Oral, Daily metformin 500 mg Tab, 500 mg= 1 tab(s), Oral, Daily omeprazole, 20 mg, Oral, Daily Ozempic 2 mg/3 mL (0.25 mg or 0.5 mg dose) subcutaneous solution, 0.25 mg, SubCutaneous, qWeek Risperdal 2 mg Tab, 4 mg= 2 tab(s), Oral, Bedtime Zocor 40 mg Tab, 40 mg= 1 tab(s), Oral, qPM Allergies No Known Allergies No Known Medication Allergies Social History Tobacco Never (less than 100 in lifetime) Tobacco Use:. Never Smokeless Tobacco Use:. Cigarettes, 06/03/2023 Family History COPD: Father. Diabetes mellitus type 2: Father. Heart failure: Father. Stroke: Mother. Immunizations Vaccine Date Status Comments influenza virus vaccine, inactivated - Not Given Postpone due to refusal SARS-CoV-2 (COVID-19) [id number] 05/11/2022 Recorded SARS-CoV-2 (COVID-19) mRNA BNT-162b2 vax 04/02/2021 Recorded SARS-CoV-2 (COVID-19) mRNA BNT-162b2 vax 09/15/2020 Recorded SARS-CoV-2 (COVID-19) mRNA BNT-162b2 vax 08/25/2020 Recorded Normal [facility] Comment on above: Result Comment: Elec tronically Signed By: Yolis FALK, Emiliano Correa\.br\Date and Time Signed: 06/03/23 09:25 EST\.br\Electronically Co-Signed By: Tiana Drake\.br\Date and Time Co-Signed: 06/03/23 09:08 EST Provider Letteron 06-03-2023 Provider Letter (Inserted Image. Mira ble to display) June 03, 2023 BET[place] [address] : 1955 To Whom It May Concern, Please excuse above patient from work. Date of Illness: From: 05/16/2023 To: 06/18/2023 May Return to Work On: 06/18/2023 Restrictions: No restrictions Comments: _ Sincerely, Emiliano Lagos MD [facility] General Surgery [facility] Pathology Noteon 05-26-2023 Pathology Note [id number]#1.00TIF F [facility] Consultation Noteon 05-18-19 24 Consultation Note [id number]#1.00TIF F [facility] Consultation Note [id number]#1.00TIFF [facility] Consultation Note [id number]#1.00TIF F [facility] Lab Reportson 05-18-2023 Lab Reports [id number]#1.00TIF F [facility] Lab Reports [id number]#1.00TIFF [facility] Lab Reports [id number]#1.00TIFF [facility] Operative Reporton Operative Report [id number]#1.00TIF F Normal [facility] Laboratory - Chemistry and C hemistry - challengeon 05-17-2023 Albumin [Mass/Vol] 2.5 g/dL [facility] ALP [Catalytic activity/Vol] 76 U/L [facility] ALT [Catalytic activity/Vol] 32 U/L [facility] AST [Catalytic activity/Vol] 32 U/L [facility] Bilirubin [Mass/Vol] 0.7 mg/dL [facility] Calcium [Mass/Vol] 8.2 mg/dL [facility] Chloride [Moles/Vol] 97 mmol/L [facility] CO2 [Moles/Vol] 31 mmol/L [facility] Creatinine [Mass/Vol] 0.70 mg/dL [facility] GFR/1.73 sq M.predicted MDRD (S/P/Bld) [Vol rate/Area] mL/min/{1.73_m2} [facility] Glucose [Mass/Vol] 148 mg/dL [facility] Potassium [Moles/Vol] 4.3 mmol/L [facility] Protein [Mass/Vol] 6.2 g/dL [facility] Sodium [Moles/Vol] 134 mmol/L [facility] Urea nitrogen [Mass/Vol] 4.0 mg/dL [facility] No Panel Informationon 05-17 Estimated GFR (Non- > 60 mL/min [facility] Claudio 05-16-2023 L Specimen: [id number] Received: 05/18/23 Status: NEDA Rivas Num: [id number] Spec Type: Surgical Subm Dr: Mayito Yang MD FACS Tissues: A Gallbladder (GALLBLADDER/CONTENTS) Procedures: HE, Gross/Micro L3 Age/ Patient Sex Location Account Attending Physician Bette Villafana 68/F [facility]ELL [id number] Mayito Yang MD FACS SPEC NUM: [id number] RECD: 05/18/23 STATUS: NEDA IRVAS NUM: [id number] BOONE: 05/16/[address]: Mayito Yang MD FACS ENTERED: 05/18/[address] [facility] [address]: Nery Zaragoza SPEC TYPE: Surgical DEPT: STACIA PATTEN ORDERED: HE, Gross/Micro L3 ORDERED: HE, Gross/Micro L3 Pathological Diagnosis Gallbladder, cholecystectomy: - Severe cholelithiasis including 1 large gallstone (3.2 cm) - Moderate calculus chronic cholecystitis, including patchy mild to moderate chronic inflammation in the thickened wall - Moderate to severe acute cholecystitis are also apparent, likely due to severe compression dilatation of the mucosa from stone impaction - No evidence of intestinal metaplasia or glandular dysplasia identified Clinical Information Cholecystitis Gross Description Received in formalin labeled with the patient's name, date of and gallbladder is a multifocally disrupted 8.7 x 5.5 x 4 cm gallbladder. The serosa is gary-gonzalez and dull with diffuse subserosal accumulation of adipose tissue. Grossly, the cystic duct appears to be patent. However, no expression of bile can be evaluated. There is no lymph node identified. The mucosa is red-brown and velvety with adherent gonzalez-gary material. There is no bile present within the lumen. The wall is 0.1-0.2 cm thick with up to 0.4 cm of subserosal adipose tissue. There is a 3.2 x 2.8 x 2.5 cm granular gary-yellow stone present.. Insurance Sales Professional sections are submitted in 1 cassette as follows: Specimen: [id number] Received: 05/18/23 Status: NEDA Rivas Num: [id number] Spec Type: Surgical Subm Dr: Mayito Yang MD FACS Tissues: A Gallbladder (GALLBLADDER/CONTENTS) Procedures: CHANDLER, Gross/Micro L3 Patient: Bette Villafana [id number] (Continued) Specimen: [id number] Received: 05/18/23 (Continued) Gross Description (Continued) Signed (signature on file) Hoda Fall MD 05/20/23 0942 Specimen: [id number] Received: 05/18/23 Status: NEDA Keri Num: [id number] Spec Type: Surgical Subm Dr: Mayito Yang MD FACS Tissues: A Gallbladder (GALLBLADDER/CONTENTS) Procedures: Lois ARTEAGA/Iván L3 Patient: LedyBette Hubbard [id number] (Continued) Specimen: [id number] Received: 05/18/23 (Continued) Gross Description (Continued) A1 - Cystic duct margin, and traveling sales representative body, and fundus section CPT Codes 31923 Specimen: [id number] Received: 05/18/23 Status: NEDA Rivas Num: [id number] Spec Type: Surgical Subm Dr: Mayito Yang MD FACS Tissues: A Gallbladder (GALLBLADDER/CONTENTS) Procedures: Lois ARTEAGA/Iván L3 Patient: LedyBette [id number] (Continued) Signed (signature on file) Hoda Fall MD 05/20/23 0942 Normal [facility] Laboratory - Chemistry and C hemistry - challengeon 05-16-2023 Albumin [Mass/Vol] 3.0 g/dL [facility] ALP [Catalytic activity/Vol] 78 U/L [facility] ALT [Catalytic activity/Vol] 21 U/L [facility] AST [Catalytic activity/Vol] 11 U/L [facility] Bilirubin [Mass/Vol] 1.0 mg/dL [facility] Calcium [Mass/Vol] 8.7 mg/dL [facility] Chloride [Moles/Vol] 99 mmol/L [facility] CO2 [Moles/Vol] 28.5 mmol/L [facility] Creatinine [Mass/Vol] 0.79 mg/dL [facility] GFR/1.73 sq M.predicted MDRD (S/P/Bld) [Vol rate/Area] mL/min/{1.73_m2} [facility] Glucose [Mass/Vol] 134 mg/dL [facility] Potassium [Moles/Vol] 3.8 mmol/L [facility] Protein [Mass/Vol] 6.8 g/dL [facility] Sodium [Moles/Vol] 134 mmol/L [facility] Urea nitrogen [Mass/Vol] 7.0 mg/dL [facility] No Panel Informationon 05-16 Estimated GFR (Non- > 60 mL/min [facility] GLYCOHEMOGLOBIN A1Con 2022 ADA RECOMMENDATION SEE BELOW Normal [facility] Comment on above: Result Comment: ADA RECOMMENDED LIMIT 4.0 - 6.0 ADA THERAPEUTIC TARGET < 7.0 ACTION SUGGESTED > 7.0 Performed By: #### P TT, PT #### [facility] [address] [place] [address] [address] Vivian Fall Glucose [Mass/Vol] 120 mg/dL Normal [facility] Comment on above: Performed By: #### P TT, PT #### [facility] [address] [place] [address] [address] Vivian Fall HbA1c (Bld) [Mass fraction] 5.8 % Normal 4.5-6.2 [facility] Comment on above: Performed By: #### P TT, PT #### [facility] [address] [place] [address] [address] Vivian Fall LIPID PROFILEon 09-02-2022 CHOL-HDL RATIO NORM SEE BELOW Normal [facility] Comment on above: Result Comment: 3.3 - 4.4 LOW RISK 4.4 - 7.1 AVERAGE RISK 7.1 - 11.0 MODERATE RISK >11.0 HIGH RISK Performed By: #### P TT, PT #### [facility] [address] [place] [address] [address] Vivian Fall Cholesterol [Mass/Vol] 171 mg/dL Normal <=200 Th [facility] Comment on above: Performed By: #### P TT, PT #### [facility] [address] [place] [address] [address] Vivian Fall Cholesterol in HDL [Mass/Vol] 52 mg/dL Normal 40-60 [facility] Comment on above: Performed By: #### P TT, PT #### [facility] [address] [place] [address] [address] Vivian Fall Cholesterol in LDL [Mass/Vol] 89.8 mg/dL Normal [facility] Comment on above: Performed By: #### P TT, PT #### [facility] [address] [place] [address] [address] Vivian Fall Cholesterol.total/Jeannie sterol in HDL [Mass ratio] 3.3 {ratio} Normal [facility] Comment on above: Performed By: #### P TT, PT #### [facility] [address] [place] [address] [address] Vivian Fall HDL NORMAL > or = 60 mg/dl - LO W CARDIOVASCULAR RISK <40 mg/dl - HIGH CARDIOVASCULAR RISK Normal [facility] Comment on above: Performed By: #### P TT, PT #### [facility] [address] [place] [address] Dr. Vivian Fall LDL CALC NORMAL SEE BELOW Normal [facility] Comment on above: Result Comment: <100 mg/dl OPTIMAL 100 - 129 mg/dl NEAR OR ABOVE OPTIMAL 130 - 159 mg/dl BORDERLINE HIGH 160 - 189 mg/dl HIGH >190 mg/dl VERY HIGH Performed By: #### P TT, PT #### [facility] [address] [place] [address] Dr. Vivian Fall Triglyceride [Mass/Vol] 146 mg/dL Normal <=150 T [facility] Comment on above: Performed By: #### P TT, PT #### [facility] [address] [place] [address] Dr. Vivian Fall VLDL CALC 29.2 mg/dL Normal [facility] Comment on above: Performed By: #### P TT, PT #### [facility] [address] [place] [address] Dr. Vivian Fall PROF 14(COMP METB)on 023 Albumin [Mass/Vol] 3.6 g/dL Normal 3.4-5.0 [facility] Comment on above: Performed By: #### C MP, LIPID #### [facility] [address] [place] [address] Dr. Vivian Fall Albumin/Globulin [Mass ratio] 0.9 {ratio} Normal [facility] Comment on above: Performed By: #### C MP, LIPID #### [facility] [address] [place] [address] Dr. Vivian Fall ALP [Catalytic activity/Vol] 81 U/L Normal 46-[address] [facility] Comment on above: Performed By: #### C MP, LIPID #### [facility] [address] [place] [address] Dr. Vivian Fall ALT [Catalytic activity/Vol] 22 U/L Normal 14-[address] [facility] Comment on above: Performed By: #### C MP, LIPID #### [facility] [address] [place] [address] Dr. Vivian Fall Anion gap [Moles/Vol] 12.5 mmol/L Normal Th e [facility] Comment on above: Performed By: #### C MP, LIPID #### [facility] [address] [place] [address] Dr. Vivian Fall AST [Catalytic activity/Vol] 15 U/L Normal 15-37 [facility] Comment on above: Performed By: #### C MP, LIPID #### [facility] [address] [place] [address] Dr. Vivian Fall Bilirubin [Mass/Vol] 0.6 mg/dL Normal 0.2-1.0 [facility] Comment on above: Performed By: #### C MP, LIPID #### [facility] [address] [place] [address] Dr. Vivian Fall Calcium [Mass/Vol] 9.1 mg/dL Normal 8.5-10.1 [facility] Comment on above: Performed By: #### C MP, LIPID #### [facility] [address] [place] [address] Dr. Vivian Fall Chloride [Moles/Vol] 103 mmol/L Normal 98-107 [facility] Comment on above: Performed By: #### C MP, LIPID #### [facility] [address] [place] [address] Dr. Vivian Fall CO2 [Moles/Vol] 27.6 mmol/L Normal 21.0-32.0 [facility] Comment on above: Performed By: #### C MP, LIPID #### [facility] [address] [place] [address] Dr. Vivian Fall Creatinine [Mass/Vol] 0.78 mg/dL Normal 0.55-1.[address] [facility] Comment on above: Performed By: #### C MP, LIPID #### [facility] [address] [place] [address] Dr. Vivian Fall EGFR-AF FILIPINO >60 Normal >=60 [facility] Comment on above: Performed By: #### C MP, LIPID #### [facility] [address] [place] [address] Dr. Vivian Fall EGFR-NON AF FILIPINO >60 Normal >=60 [facility] Comment on above: Performed By: #### C MP, LIPID #### [facility] [address] [place] [address] Dr. Vivian Fall Globulin (S) [Mass/Vol] 3.8 g/dL Normal [facility] Comment on above: Performed By: #### C MP, LIPID #### [facility] [address] [place] [address] Dr. Vivian Fall Glucose [Mass/Vol] 105 mg/dL Normal 74-106 [facility] Comment on above: Performed By: #### C MP, LIPID #### [facility] [address] [place] [address] Dr. Vivian Fall Potassium [Moles/Vol] 4.1 mmol/L Normal 3.5-5.1 [facility] Comment on above: Performed By: #### C MP, LIPID #### [facility] [address] [place] [address] Dr. Vivian Fall Protein [Mass/Vol] 7.4 g/dL Normal 6.4-8.2 [facility] Comment on above: Performed By: #### C MP, LIPID #### [facility] [address] [place] [address] Dr. Vivian Fall Sodium [Moles/Vol] 139 mmol/L Normal 136-145 [facility] Comment on above: Performed By: #### C MP, LIPID #### [facility] [address] [place] [address] Dr. Vivian Fall Urea nitrogen [Mass/Vol] 11.0 mg/dL Normal 7.0-18.0 [facility] Comment on above: Performed By: #### C MP, LIPID #### [facility] [address] [place] [address] Dr. Vivian Fall Urea nitrogen/Creatinine [Mass ratio] 14.1 mg/mg Normal [facility] Comment on above: Performed By: #### C MP, LIPID #### [facility] [address] [place] [address] Dr. Vivian Fall VITAMIN B12on 05-04-2023 Cobalamin (Vitamin B12) [Mass/Vol] 373.0 pg/mL Normal 193.0-986.0 [facility] Comment on above: Performed By: #### P TT, PT #### [facility] [address] [place] [address] Dr. Vivian Fall VITAMIN D 25 OHon 09-02-2022 VIT D 25-OH 16.1 ng/mL Normal [facility] Comment on above: Performed By: #### P TT, PT #### [facility] [address] [place] [address] Dr. Vivian Fall VIT D RANGES SEE BELOW Normal [facility] Comment on above: Result Comment: <20 ng/mL Vit D deficient 20 - <30 ng/mL Vit D insufficient 30 - 100 ng/mL Vit D sufficient >100 ng/mL Potential Toxicity Performed By: #### P TT, PT #### [facility] [address] [place] [address] Dr. Vivian Fall BNPon 06-29-2022 Natriuretic peptide B (Bld) [Mass/Vol] 223.0 pg/mL Normal <=900.0 [facility] Comment on above: Performed By: #### C MP, HSTROPN, BNP #### [facility] [address] [place] [address] Dr. Vivian Fall CBC AUTO DIFFon 06-29-2022 BASO # 0.0 103/ul Normal 0.0-0.1 [facility] Comment on above: Performed By: #### C BC #### [facility] [address] [place] [address] Dr. Vivian Fall Basophils/100 WBC (Bld) 0.2 % Normal 0.2-2.0 [facility] Comment on above: Performed By: #### C BC #### [facility] [address] [place] [address] Dr. Vivian Fall EO # 0.0 103/ul Normal 0.0-0.7 [facility] Comment on above: Performed By: #### C BC #### [facility] [address] [place] [address] Dr. Vivian Fall Eosinophils/100 WBC (Bld) 0.0 % Critically low 0.9-7.[address] [facility] Comment on above: Performed By: #### C BC #### [facility] [address] [place] [address] Dr. Vivian Fall Erythrocyte distribution width (RBC) [Ratio] 13.0 % Normal 11.0-15.0 [facility] Comment on above: Performed By: #### C BC #### [facility] [address] [place] [address] Dr. Vivian Fall Hematocrit (Bld) [Volume fraction] 36.2 % Normal 36.0-48.0 [facility] Comment on above: Performed By: #### C BC #### [facility] [address] [place] [address] Dr. Vivian Fall Hemoglobin (Bld) [Mass/Vol] 12.2 g/dL Normal 12.0-16.0 [facility] Comment on above: Performed By: #### C BC #### [facility] [address] [place] [address] Dr. Vivian Fall IG # 0.08 10e3/ul Critically high 0.00-0.03 [facility] Comment on above: Performed By: #### C BC #### [facility] [address] [place] [address] Dr. Vivian Fall IG % 1.3 % Critically high 0.0-0.[address] [facility] Comment on above: Performed By: #### C BC #### [facility] [address] [place] [address] Dr. Vivian Fall LYMPH # 0.3 103/ul Critically low 1.2-3.[address] [facility] Comment on above: Performed By: #### C BC #### [facility] [address] [place] [address] Dr. Vivian Fall Lymphocytes/100 WBC (Bld) 4.2 % Critically low 20.5-60.0 [facility] Comment on above: Performed By: #### C BC #### [facility] [address] [place] [address] Dr. Vivian Fall MANUAL DIFF REQ NO Normal [facility] Comment on above: Performed By: #### C BC #### [facility] [address] [place] [address] Dr. Vivian Fall MCH (RBC) [Entitic mass] 29.2 pg Normal 26.7-34.0 [facility] Comment on above: Performed By: #### C BC #### [facility] [address] [place] [address] Dr. Vivian Fall MCHC (RBC) [Mass/Vol] 33.7 g/dL Normal 29.9-35.2 [facility] Comment on above: Performed By: #### C BC #### [facility] [address] [place] [address] Dr. Vivian Fall MCV (RBC) [Entitic vol] 86.6 fL Normal 81.0-99.0 [facility] Comment on above: Performed By: #### C BC #### [facility] [address] [place] [address] Dr. Vivian Fall MONO # 0.2 103/ul Critically low 0.3-0.8 [facility] Comment on above: Performed By: #### C BC #### [facility] [address] [place] [address] Dr. Vivian Fall Monocytes/100 WBC (Bld) 3.5 % Normal 1.7-12.0 [facility] Comment on above: Performed By: #### C BC #### [facility] [address] [place] [address] Dr. Vivian Fall NEUT # 5.7 103/ul Normal 1.4-6.5 [facility] Comment on above: Performed By: #### C BC #### [facility] [address] [place] [address] Dr. Vivian Fall Neutrophils/100 WBC (Bld) 90.8 % Critically high 43.0-75.0 [facility] Comment on above: Performed By: #### C BC #### [facility] [address] [place] [address] Dr. Vivian Fall Platelet mean volume (Bld) [Entitic vol] 9.8 fL Normal 9.5-13.5 [facility] Comment on above: Performed By: #### C BC #### [facility] [address] [place] [address] Dr. Vivian Fall PLT 224 103/ul Normal 150-[address] [facility] Comment on above: Performed By: #### C BC #### [facility] [address] [place] [address] Dr. Vivian Fall RBC 4.18 106/ul Critically low 4.20-5.40 [facility] Comment on above: Performed By: #### C BC #### [facility] [address] [place] [address] Dr. Vivian Fall WBC 6.3 103/ul Normal 4.0-11.0 [facility] Comment on above: Performed By: #### C BC #### [facility] [address] [place] [address] ABD/PELVIS WO CONon [...] by: ANASTACIO BARBOZA Date: 2022-06-29 11:26 Normal [facility] CULTURE BLOODon 06-29-2022 Microscopic examination of blood, culture Culture Observations: NO GROWTH AT 5 DAYS. Isolate 1 BC_BA_NA Normal [facility] Comment on above: Performed By: #### P TT, PT #### [facility] [address] [address] [address] Vivian Fall Microscopic examination of blood, culture Culture Observations: NO GROWTH AT 5 DAYS. Isolate 1 BC_BA_NA Normal [facility] Comment on above: Performed By: #### P TT, PT #### [facility] [address] [address] [address] Vivian Fall CULTURE URINEon 06-29-2022 CULTURE URINE Culture Observations : NO GROWTH. Normal [facility] Comment on above: Performed By: #### P TT, PT #### [facility] [address] [place] [address] Dr. Vivian Fall [facility] SARS-CoV-2 (COVID-19) RNA JONY+probe Ql (Unsp spec) Not detected Normal NOT DETECTED [facility] Comment on above: Result Comment: When [...] for this test is supported by the [employer] of [employer] and Human Service's declaration that [...] used). Performed By: #### C VDTBH #### [facility] [address] [place] [address] Dr. Vivian Fall ER URINE PROFILEon 3 Bilirubin Ql (U) SMALL Abnormal NEGATIVE [facility] Comment on above: Performed By: #### P TT, PT #### [facility] [address] [place] [address] Dr. Vivian Fall Clarity (U) CLEAR Normal CLEAR [facility] Comment on above: Performed By: #### P TT, PT #### [facility] [address] [place] [address] Dr. Vivian Fall Color (U) DK. YELLOW Normal YELLOW [facility] Comment on above: Performed By: #### P TT, PT #### [facility] [address] [place] [address] Dr. Vivian Fall ERUAHD A micrscopic examina tion will be performed if indicated. Normal [facility] Comment on above: Performed By: #### P TT, PT #### [facility] [address] [place] [address] Dr. Vivian Fall Glucose Ql (U) Negative Normal NEGATIVE [facility] Comment on above: Performed By: #### P TT, PT #### [facility] [address] [place] [address] Dr. Vivian Fall Hemoglobin Ql (U) TRACE-INTACT Abnormal NEGATIVE [facility] Comment on above: Performed By: #### P TT, PT #### [facility] [address] [place] [address] Dr. Vivian Fall Ketones Ql (U) Negative Normal NEGATIVE [facility] Comment on above: Performed By: #### P TT, PT #### [facility] [address] [place] [address] Dr. Vivian Fall LEUKOCYTES Negative Normal NEGATIVE [facility] Comment on above: Performed By: #### P TT, PT #### [facility] [address] [place] [address] Dr. Vivian Fall Nitrite Ql (U) Negative Normal NEGATIVE [facility] Comment on above: Performed By: #### P TT, PT #### [facility] [address] [place] [address] Dr. Vivian Fall pH (U) 6.0 [pH] Normal 5-9 [facility] Comment on above: Performed By: #### P TT, PT #### [facility] [address] [place] [address] Dr. Vivian Fall Protein (U) [Mass/Vol] 100 mg/dL Abnormal NEGAT DOROTHY/ TRACE [facility] Comment on above: Performed By: #### P TT, PT #### [facility] [address] [place] [address] Dr. Vivian Fall SPEC GRAVITY >=1.030 Abnormal 1.005-<=1.02 5 [facility] Comment on above: Performed By: #### P TT, PT #### [facility] [address] [place] [address] Dr. Vivian Fall UR MICRO IND INDICATED Normal [facility] Comment on above: Performed By: #### P TT, PT #### [facility] [address] [place] [address] Dr. Vivian Fall Urobilinogen Qn (U) 1.0 {Nia'U}/dL Normal 0.2 - 1. [address] [facility] Comment on above: Performed By: #### P TT, PT #### [facility] [address] [place] [address] Dr. Vivian Fall LACTATE/LACTIC ACIDon 2022 Lactate [Moles/Vol] 1.3 mmol/L Normal 0.4-1.9 [facility] Comment on above: Performed By: #### L ACT #### [facility] [address] [place] [address] Dr. Vivian Fall Lactate [Moles/Vol] 3.1 mmol/L Critically high 0.4-1.[address] [facility] Comment on above: Performed By: #### L ACT #### [facility] [address] [place] [address] Dr. Vivian Fall LIPASEon 06-29-2022 Lipase [Catalytic activity/Vol] 88.0 U/L Normal 73.0-393.0 [facility] Comment on above: Performed By: #### L IPA #### [facility] [address] [place] [address] Dr. Vivian Fall PROF 14(COMP METB)on 023 Albumin [Mass/Vol] 3.4 g/dL Normal 3.4-5.0 [facility] Comment on above: Performed By: #### C MP, HSTROPN, BNP #### [facility] [address] [place] [address] Dr. Vivian Fall Albumin/Globulin [Mass ratio] 0.9 {ratio} Normal [facility] Comment on above: Performed By: #### C MP, HSTROPN, BNP #### [facility] [address] [place] [address] Dr. Vivian Fall ALP [Catalytic activity/Vol] 145 U/L Critically high 46-116 [facility] Comment on above: Performed By: #### C MP, HSTROPN, BNP #### [facility] [address] [place] [address] Dr. Vivian Fall ALT [Catalytic activity/Vol] 454 U/L Critically high 14-59 [facility] Comment on above: Performed By: #### C MP, HSTROPN, BNP #### [facility] [address] [place] [address] Dr. Vivian Fall Anion gap [Moles/Vol] 15.7 mmol/L Normal Th e [facility] Comment on above: Performed By: #### C MP, HSTROPN, BNP #### [facility] [address] [place] [address] Dr. Vivian Fall AST [Catalytic activity/Vol] 404 U/L Critically high 15-37 [facility] Comment on above: Performed By: #### C MP, HSTROPN, BNP #### [facility] [address] [place] [address] Dr. Vivian Fall Bilirubin [Mass/Vol] 1.4 mg/dL Critically high 0.2-1.0 [facility] Comment on above: Performed By: #### C MP, HSTROPN, BNP #### [facility] [address] [place] [address] Dr. Vivian Fall Calcium [Mass/Vol] 8.7 mg/dL Normal 8.5-10.[address] [facility] Comment on above: Performed By: #### C MP, HSTROPN, BNP #### [facility] [address] [place] [address] Dr. Vivian Fall Chloride [Moles/Vol] 94 mmol/L Critically low 98-[address] [facility] Comment on above: Performed By: #### C MP, HSTROPN, BNP #### [facility] [address] [place] [address] Dr. Vivian Fall CO2 [Moles/Vol] 22.0 mmol/L Normal 21.0-32.[address] [facility] Comment on above: Performed By: #### C MP HSTROPN, BNP #### [facility] [address] [place] [address] Dr. Vivian Fall Creatinine [Mass/Vol] 1.30 mg/dL Critically high 0.55-1.02 [facility] Comment on above: Performed By: #### C MP, HSTROPN, BNP #### [facility] [address] [place] [address] Dr. Vivian Fall EGFR-AF FILIPINO 50 mL/min/1.73m2 Critically low >=60 [facility] Comment on above: Performed By: #### C MP, HSTROPN, BNP #### [facility] [address] [place] [address] Dr. Vivian Fall EGFR-NON AF FILIPINO 41 mL/min/1.73m2 Critically low >=60 [facility] Comment on above: Performed By: #### C MP, HSTROPN, BNP #### [facility] [address] [place] [address] Dr. Vivian Fall Globulin (S) [Mass/Vol] 3.7 g/dL Normal [facility] Comment on above: Performed By: #### C MP, HSTROPN, BNP #### [facility] [address] [place] [address] Dr. Vivian Fall Glucose [Mass/Vol] 166 mg/dL Critically high 74-106 [facility] Comment on above: Performed By: #### C MP, HSTROPN, BNP #### [facility] [address] [place] [address] Dr. Vivian Fall Potassium [Moles/Vol] 3.7 mmol/L Normal 3.5-5.1 [facility] Comment on above: Performed By: #### C MP, HSTROPN, BNP #### [facility] [address] [place] [address] Dr. Vivian Fall Protein [Mass/Vol] 7.1 g/dL Normal 6.4-8.2 [facility] Comment on above: Performed By: #### C MP, HSTROPN, BNP #### [facility] [address] [place] [address] Dr. Vivian Fall Sodium [Moles/Vol] 128 mmol/L Critically low 136-145 [facility] Comment on above: Performed By: #### C DEVI BANDATROPEduardo, BNP #### [facility] [address] [place] [address] Dr. Vivian Fall Urea nitrogen [Mass/Vol] 15.0 mg/dL Normal 7.0-18.0 [facility] Comment on above: Performed By: #### C VERONIKA HSTROPN, BNP #### [facility] [address] [place] [address] Dr. Vivian Fall Urea nitrogen/Creatinine [Mass ratio] 11.5 mg/mg Normal [facility] Comment on above: Performed By: #### C DEVI BANDATRFROYLAN, BNP #### [facility] [address] [place] [address] Dr. Vivian Fall PROTIMEon 06-29-2022 INR Coag (PPP) [Relative time] 1.08 {INR} Normal [facility] Comment on above: Performed By: #### P TT, PT #### [facility] [address] [place] [address] Dr. Vivian Fall INR GUIDELINES SEE BELOW Normal [facility] Comment on above: Result Comment: DEEJAY RED INR: 2.0 - 3.0 CONDITIONS NOT LISTED BELOW 2.5 - 3.5 FOR PROSTHETIC HEART VALVE REPLACEMENT 2.5 - 3.5 RECURRENT THROMBOSIS Performed By: #### P TT, PT #### [facility] [address] [place] [address] Dr. Vivian Fall PT Coag (PPP) [Time] 11.4 s Normal 9.0-11.6 [facility] Comment on above: Performed By: #### P TT, PT #### [facility] [address] [place] [address] Dr. Vivian Fall PTTon 06-29-2022 aPTT Coag (Bld) [Time] 32.2 s Normal 22.3-36.2 [facility] Comment on above: Performed By: #### P TT, PT #### [facility] [address] [place] [address] Dr. Vivian Fall TROPONIN, HIGH SENSITIVITYon 06-29-2022 HSTROP 5.8 pg/mL Normal 4.0-51.[address] [facility] Comment on above: Result Comment: CUT- OFF POINTS HAVE BEEN ESTABLISHED BASED ON THE FOURTH UNIVERSAL DEFINITIONS OF MYOCARDIAL INFARCTION. THE UPPER REFERENCE LIMIT (URL) OF TROPONIN, DEFINED THE 99TH PERCENTILE OF cTnI DISTRIBUTION IN A REFERENCE POPULATION, HAS BEEN CONFIRMED THE DECISION THRESHOLD FOR VA DIAGNOSIS. Performed By: #### C MP, HSTROPN, BNP #### [facility] [address] [place] [address] Dr. Vivian Fall URINE MICROSCOPIC ONLYon BACTERIA SMALL Abnormal NONE SEEN [facility] Comment on above: Performed By: #### P TT, PT #### [facility] [address] [place] [address] Dr. Vivian Fall Bacteria identified Cx Nom (U) INDICATED Normal [facility] Comment on above: Performed By: #### P TT, PT #### [facility] [address] [place] [address] Dr. Vivian Fall CAST NONE SEEN Normal NONE SEEN [facility] Comment on above: Performed By: #### P TT, PT #### [facility] [address] [place] [address] Dr. Vivian Fall Crystals LM Nom (Urine sed) NONE SEEN Normal NONE SEEN [facility] Comment on above: Performed By: #### P TT, PT #### [facility] [address] [place] [address] Dr. Vivian Fall Epithelial cells LM Ql (Urine sed) FEW Abnormal NONE SEEN /RARE [facility] Comment on above: Performed By: #### P TT, PT #### [facility] [address] [place] [address] Dr. Vivian Fall MUCOUS SMALL Abnormal NONE SEEN [facility] Comment on above: Performed By: #### P TT, PT #### [facility] [address] [place] [address] Dr. Vivian Fall RBC 0-2 Normal 0-[address] [facility] Comment on above: Performed By: #### P TT, PT #### [facility] [address] [place], [place] [address] Dr. Vivian Fall WBC 0-2 Abnormal NONE SEEN [facility] Comment on above: Performed By: #### P TT, PT #### [facility] [address] [place], [place] [address] Dr. Vivian Fall XR CHEST 1 Von 06-29-2022 XR CHEST 1 V EXAM: XR CHEST 1 V HISTORY: Altered mental status COMPARISON: None. TECHNIQUE: Frontal view of the chest. FINDINGS: No focal consolidations or pleural effusions. Cardiomegaly. Thoracic spine spondylosis. IMPRESSION: No acute disease. Cardiomegaly. Electronically authenticated by: ZEYAD SOFIA Date: 2022-06-29 10:38 Normal [facility] Office Visit (Cardiology)on 06-01-2022 Follow-up visit Diagnoses/Problems Assessed Abnormal echocardiogram (793.2) (R93.1) Never a smoker Hypothyroidism (244.9) (E03.9) Added by Problem List Migration; 2013-02-28; Moved to [facility] Mar 24 2013 9:03PM Hyperlipidemia (272.4) [...] result(s) with the patient: ECG Chief Complaint BETTE VILLAFANA is being seen for a consultation for [...] Social H (more content not included)... Normal [employer] Tobacco Screening.on 023 Adult depression screening assessment No [facility] [employer] DO Work Phone: Fall risk assessment a) No falls within the last year [facility] [employer] DO Work Phone: Tobacco use status [facility] b) No [facility] [employer] DO Work Phone: ECHOCARDIO M/2D COMPLETEon 0 05-11-2022 ECHOCARDIO M/2D COMPLETE Patient: BETTE VILLAFANA Exam Date: 05/11/2022 : 1955 Gender:F Ordering : DR MIKALA MOE PA Admission #: [id number] Family : Order #: [id number] CLICK HERE TO VIEW EXAM ECHOCARDIOGRAM REPORT [...] Alarcon M.D. on 05/13/2022 at 10:52 Normal [facility] MAMM SCREEN 3D ALFA CADon 05-11-2022 MG MAMM SCREEN 3D ALFA CAD Patient: BETTE VILLAFANA Exam Date: 05/11/2022 : 1955 Gender:F Ordering : DR MIKALA SINGH Admission #: [id number] Family : Order #: [id number] CLICK HERE TO VIEW EXAM RADIOLOGY REPORT [...] kidney cancer at age 52. LOCATION: [facility] BREAST COMPOSITION: Almost entirely fatty. FINDINGS: [...] PALPABLE LUMP SHOULD BE BIOPSIED. Dictated by: Carol Ascencio M.D. on 05/11/2022 at 14:19 Approved by: Carol Ascencio M.D. on 05/11/2022 at 14:26 Normal [facility] Established Visit (Otolaryng ology)on 02-09-2022 Established [...] Recorded: 09Feb2022 03:01PM Height5 ft 4 in [id number] lb BMI Vabspjbvai72.35 kg/m2 BSA Calculated2.22 Tobacco Useb) No Falls [...] Feb 09 2022 3:21PM EST (Author) Normal [employer] Tobacco Screening.on Fall risk assessment c) Not medically indicated [employer] Phone: Tobacco use status [facility] b) No M [employer] Work Phone: Reference Laboratory Testing Ordered By: [facility] DomainUser on 05-15-2021 SARS-CoV-2 (COVID-19) RNA JONY+probe Ql (Resp) Not detected Invalid Interpretation Code Not Detected [facility] Comment on above: Result Comment: This nucleic acid amplification test was developed and its performance characteristics determined by [employer]. Nucleic acid amplification tests include RT-PCR and [...] detected) result in this assay. Performed at: [address] [id number] PhD Anita Hughes Tobacco Screening.on Fall risk assessment a) No falls within the last year [employer] Work Phone: Tobacco use status [facility] b) No M LISNR Phone: Coronavirus 2019 RNA by PCR, Screening Asymptomticon 03-17-2021 Coronavirus 2019 RNA by PCR, Screening Asymptomtic Not detected Normal See Below [employer] Work Phone: Comment on above: SOURCE: Nasal, [...] make patient management decisions.Fact sheet for providers: https://www.fda.gov/media/114918/downloadFact sheet for patients: https://www.fda.gov/media/245925/downloadThis test has received FDA Emergency Use Authorization (EUA) and has been verified by [facility] ([facility]). This test is only authorized for the duration of time that circumstances exist to justify the authorization of the emergency use of in vitro diagnostic tests for the detection of SARS-CoV-2 virus and/or diagnosis of COVID-19 infection under section 564(b)(1) of the Act, 21 U.S.C. 360bbb-3(b)(1), unless the authorization is terminated or revoked sooner. [facility] is certified under CLIA-88 as qualified to perform high complexity testing. Testing is performed in the [facility] laboratories located at [address] [place] [address]. Laboratory - Blood bankon ABO group Nom (Bld) O MG-Ot olaryn gology-Gabriela man Work Phone: [phone] Blood group antibody screen Ql Negative MG-Otolaryn gology-Gabriela man Work Phone: [phone] Rh immune globulin screen (Bld) [Interp] Positive MG-Otolary n gology-Gabriela man Work Phone: [phone] Laboratory - Chemistry and C hemistry - challengeon 03-13-2021 Anion gap [Moles/Vol] 13 mmol/L 10 - 20 MG- Otolaryn gology-Gabriela man Work Phone: [phone] Calcium [Mass/Vol] 9.3 mg/dL 8.6 - 10.6 MG-[place] laryn gology-Gabriela man Work Phone: [phone] Chloride [Moles/Vol] 102 mmol/L 98 - 107 MG-O tolaryn gology-Gabriela man Work Phone: [phone] CO2 [Moles/Vol] 28 mmol/L 21 - 32 MG-Otolar yn gology-Gabriela man Work Phone: [phone] Creatinine [Mass/Vol] 0.77 mg/dL See Below MG- Otolaryn gology-Gabriela man Work Phone: [phone] Comment on above: Reference Range: 0.5 0 - 1.05 Glucose [Mass/Vol] 95 mg/dL 74 - 99 MG-Efra maldonado Work Phone: [phone] Potassium [Moles/Vol] 5.2 mmol/L 3.5 - 5.3 MG- [place] maldonado Work Phone: [phone] Sodium [Moles/Vol] 138 mmol/L 136 - 145 MG-Efra maldonado Work Phone: Urea nitrogen [Mass/Vol] 19 mg/dL 6 - 23 MG-[place] maldonado Work Phone: [phone] Laboratory - Hematology and Cell countson 03-13-2021 Erythrocyte distribution width (RBC) [Ratio] 12.8 % See Below -[place] maldonado Work Phone: [phone] Comment on above: Reference Range: 11. 5 - 14.5 Hematocrit (Bld) [Volume fraction] 38.6 % See Below -[place] maldonado Work Phone: [phone] Comment on above: Reference Range: 36. 0 - 46.0 Hemoglobin (Bld) [Mass/Vol] 11.8 g/dL below low threshold See Below -[place] maldonado Work Phone: [phone] Comment on above: Reference Range: 12. 0 - 16.0 MCHC (RBC) [Mass/Vol] 30.6 g/dL below low threshold See Below -[place] maldonado Work Phone: [phone] Comment on above: Reference Range: 32. 0 - 36.0 MCV (RBC) [Entitic vol] 96 fL 80 - 100 M G-[place] maldonado Work Phone: [phone] Platelets (Bld) [#/Vol] 325 10*3/uL 150 - 450 MG-[place] maldonado Work Phone: [phone] RBC (Bld) [#/Vol] 4.01 {x10E12/L} See Below MG -Otolaryn gology-Gabriela man Work Phone: [phone] Comment on above: Reference Range: 4.0 0 - 5.20 WBC (Bld) [#/Vol] 8.6 10*3/uL 4.4 - 11.3 MG-Efra laryn gology-Gabriela man Work Phone: [phone] No Panel Informationon 03-13 >60 >60 MG-Otolaryn gology-Gabriela man Work Phone: [phone] Comment on above: CALCULATIONS OF LINO MATED GFR ARE PERFORMED USING THE MDRD STUDY EQUATION FOR THE IDMS-TRACEABLE CREATININE METHODS. CLIN CHEM 2007;53:766-72 0.0 {/100_WBC} 0.0-0.0 MG-Otolary n gology-Gabriela man Work Phone: [phone] [email or web address]?RetrieveTestByDateTim e?ZcxetfdOM=[id number]&Da te=04-11-2021&Time=10%3a 52%3a43%3a00&TestType=EC G&Site=1&OutputType=PDF& Ext=PDF MG-Otolaryn gology-Gabriela man Work Phone: [phone] Normal sinus rhythm MG-Ot olaryn gology-Gabriela man Work Phone: [phone] Normal MG-Otolaryn gology-Gabriela man Work Phone: [phone] MG-Otolaryn gology-Gabriela man Work Phone: [phone] MG-Otolaryn gology-Gabriela man Work Phone: - [phone] MG-Otolaryn gology-Gabriela man Work Phone: [phone] 1 MG-Otolaryn gology-Gabriela man Work Phone: [phone] MG-Otolaryn gology-Gabriela man Work Phone: 12 1 MG-Otolaryn gology-Gabriela man Work Phone: [phone] 40 1 MG-Otolaryn gology-Gabriela man Work Phone: [phone] 59 1 MG-Otolaryn gology-Gabriela man Work Phone: [phone] -20 1 MG-Otolaryn gology-Gabriela man Work Phone: [phone] 1 MG-Otolaryn gology-Gabriela man Work Phone: [phone] 1 MG-Otolaryn gology-Gabriela man Work Phone: [phone] 86 1 MG-Otolaryn gology-Gabriela man Work Phone: [phone] 156 1 MG-Otolaryn gology-Gabriela man Work Phone: [phone] 74 1 MG-Otolaryn gology-Gabriela man Work Phone: [phone] Chest without Contraston 03-03-2021 CT Chest WO contrast Normal MG-O tolaryn gology-[place] terrell Work Phone: Tobacco Screening.on Fall risk assessment a) No falls within the last year MG-Otolaryn gology-[place] Work Phone: Tobacco use status [facility] b) No M G-Otolaryn gology-Compa terrell Work Phone: Tobacco Screening.on Fall risk assessment c) Not medically indicated MG-Otolaryn gology-[place] Work Phone: Tobacco use status [facility] b) No M G-Otolaryn gology-Compa terrell Work Phone: Vital Signs Date Time Vital Sign Value Performing Clinician Facility 02-21-2024 13:25-0400 Body height 162.6 cm Ronnie Murphy MD Work Phone: [facility] 02-21-2024 13:25-0400 Body mass index (BMI) [Ratio] 44.11 kg/m2 Ronnie Murphy MD Work Phone: [facility] 02-21-2024 13:25-0400 Body weight 116.57 kg Ronnie Murphy MD Work Phone: [facility] 02-14-2024 08:57-0400 Body height 165.1 cm Cristina Hubbard [employer] Work Phone: [facility] 02-14-2024 08:57-0400 Body mass index (BMI) [Ratio] 43.93 kg/m2 Cristina Hubbard [employer] Work Phone: [facility] 02-14-2024 08:57-0400 Body weight 119.75 kg Cristina Hubbard [employer] Work Phone: [facility] 02-14-2024 08:57-0400 Diastolic blood pressure 66 mm[Hg] Cristina Hubbard [employer] Work Phone: [facility] 02-14-2024 08:57-0400 Heart rate 81 /min Cristina Hubbard [employer] Work Phone: [facility] 02-14-2024 08:57-0400 SaO2% (BldA) [Mass fraction] 95 % Cristina Hubbard [employer] Work Phone: [facility] 02-14-2024 08:57-0400 Systolic blood pressure 128 mm[Hg] Cristina Hubbard [employer] Work Phone: [facility] 12-20-2023 11:22-0400 Body height 164.08 cm II Bello Hilton Work Phone: [facility] 12-20-2023 11:22-0400 Body mass index (BMI) [Ratio] 43.5 kg/m2 II Bello Hilton Work Phone: [facility] 12-20-2023 11:22-0400 Body weight 117.22 kg II Bello Hilton Work Phone: [facility] 12-20-2023 11:22-0400 Diastolic blood pressure 73 mm[Hg] II Bello Hilton Work Phone: [facility] 12-20-2023 11:22-0400 Heart rate 79 /min II Bello Hilton Work Phone: [facility] 12-20-2023 11:22-0400 Respiratory rate 18 /min II Bello Hilton Work Phone: [facility] 12-20-2023 11:22-0400 SaO2% (BldA) [Mass fraction] 96 % II Bello Hilton Work Phone: [facility] 12-20-2023 11:22-0400 Systolic blood pressure 114 mm[Hg] II Bello Hilton Work Phone: [facility] 10-19-2023 11:10-0400 Body height 164.08 cm II Bello Hilton Work Phone: [facility] 10-19-2023 11:10-0400 Body mass index (BMI) [Ratio] 43.3 kg/m2 II Bello Hilton Work Phone: [facility] 10-19-2023 11:10-0400 Body weight 116.62 kg II Bello Hilton Work Phone: [facility] 10-19-2023 11:10-0400 Diastolic blood pressure 69 mm[Hg] II Bello Hilton Work Phone: [facility] 10-19-2023 11:10-0400 Heart rate 76 /min II Bello Hilton Work Phone: [facility] 10-19-2023 11:10-0400 Respiratory rate 18 /min II Bello Hilton Work Phone: [facility] 10-19-2023 11:10-0400 SaO2% (BldA) [Mass fraction] 97 % II Bello Hilton Work Phone: [facility] 10-19-2023 11:10-0400 Systolic blood pressure 117 mm[Hg] II Bello Hilton Work Phone: [facility] 10-05-2023 10:09-0400 Body height 164.08 cm II Bello Hilton Work Phone: [facility] 10-05-2023 10:090400 Body mass index (BMI) [Ratio] 42.8 kg/m2 II Bello Hilton Work Phone: [facility] 10-05-2023 10:09-0400 Body temperature 96.6 [degF] II Bello Hilton Work Phone: [facility] 10-05-2023 10:09-0400 Body weight 115.32 kg II Bello Hilton Work Phone: [facility] 10-05-2023 10:09-0400 Diastolic blood pressure 80 mm[Hg] II Bello Hilton Work Phone: [facility] 10-05-2023 10:09-0400 Heart rate 90 /min II Bello Hilton Work Phone: [facility] 10-05-2023 10:09-0400 Respiratory rate 18 /min II Bello Hilton Work Phone: [facility] 10-05-2023 10:09-0400 SaO2% (BldA) [Mass fraction] 96 % II Bello Hilton Work Phone: [facility] 10-05-2023 10:09-0400 Systolic blood pressure 130 mm[Hg] II Bello Hilton Work Phone: [facility] 08-09-2023 11:20-0400 Body height 165.1 cm II Bello Hilton Work Phone: [facility] 08-09-2023 11:20-0400 Body mass index (BMI) [Ratio] 43.2 kg/m2 II Bello Hilton Work Phone: [facility] 08-09-2023 11:20-0400 Body weight 117.67 kg II Bello Hilton Work Phone: [facility] 08-09-2023 11:20-0400 Diastolic blood pressure 76 mm[Hg] II Bello Hilton Work Phone: [facility] 08-09-2023 11:20-0400 Heart rate 73 /min II Bello Hilton Work Phone: [facility] 08-09-2023 11:20-0400 Respiratory rate 18 /min II Bello Hilton Work Phone: [facility] 08-09-2023 11:20-0400 SaO2% (BldA) [Mass fraction] 96 % II Bello Hilton Work Phone: [facility] 08-09-2023 11:20-0400 Systolic blood pressure 138 mm[Hg] II Bello Hilton Work Phone: [facility] 08-06-2023 11:30-0400 Diastolic blood pressure 70 mm[Hg] II Bello Hilton Work Phone: [facility] 08-06-2023 11:30-0400 Heart rate 76 /min II Bello Hilton Work Phone: [facility] 08-06-2023 11:30-0400 Respiratory rate 18 /min II Bello Hilton Work Phone: [facility] 08-06-2023 11:30-0400 SaO2% (BldA) [Mass fraction] 95 % II Bello Hilton Work Phone: [facility] 08-06-2023 11:30-0400 Systolic blood pressure 142 mm[Hg] II Bello Hilton Work Phone: [facility] 08-06-2023 10:34-0400 Body height 166.37 cm II Bello Hilton Work Phone: [facility] 08-06-2023 10:34-0400 Body weight 117 kg II Bello Hilton Work Phone: [facility] 08-06-2023 10:33-0400 Body temperature 98.6 [degF] II Bello Hilton Work Phone: [facility] 07-05-2023 11:09-0500 Body height 165.1 cm II Bello Hilton Work Phone: [facility] 07-05-2023 11:09-0500 Body mass index (BMI) [Ratio] 41.3 kg/m2 II Bello Hilton Work Phone: [facility] 07-05-2023 11:09-0500 Body weight 112.71 kg II Bello Hilton Work Phone: [facility] 06-07-2023 10:30-0500 Body height 165.1 cm Lilliam Scally Other [facility] Other 06-07-2023 10:30-0500 Body mass index (BMI) [Ratio] 41.71 kg/m2 Lilliam Scally Other [facility] Other 06-07-2023 10:30-0500 Body weight 113.72 kg Lilliam Scally Other [facility] Other 06-07-2023 10:30-0500 Diastolic blood pressure 72 mm[Hg] Lilliam Scally Other [facility] Other 06-07-2023 10:30-0500 Respiratory rate 18 /min Lilliam Scally Other [facility] Other 06-07-2023 10:30-0500 SaO2% (BldA) [Mass fraction] 97 % Lilliam Scally Other [facility] Other 06-07-2023 10:30-0500 Systolic blood pressure 114 mm[Hg] Lilliam Scally Other [facility] Other 06-03-2023 08:24-0500 Diastolic blood pressure 78 mm[Hg] Emiliano Lagos [facility] 06-03-2023 08:24-0500 Heart rate 91 /min Emiliano Lagos [facility] 06-03-2023 08:24-0500 Systolic blood pressure 109 mm[Hg] Emiliano Lagos [facility] 02-22-2023 14:36-0400 Body height 163.8 cm Ronnie Murphy MD Work Phone: [facility] 02-22-2023 14:36-0400 Body mass index (BMI) [Ratio] 43.09 kg/m2 Ronnie Murphy MD Work Phone: [facility] 02-22-2023 14:36-0400 Body weight 115.67 kg Ronnie Murphy MD Work Phone: [facility] 02-15-2023 13:00-0400 Body height 165.1 cm Nikki Fitt Other [facility] Other 02-15-2023 13:00-0400 Body mass index (BMI) [Ratio] 42.16 kg/m2 Nikki Fitt Other [facility] Other 02-15-2023 13:00-0400 Body weight 114.94 kg Nikki Fitt Other [facility] Other 02-01-2023 10:15-0400 Body height 165.1 cm Lilliam Alexandrely Other [facility] Other 02-01-2023 10:15-0400 Body mass index (BMI) [Ratio] 42.2 kg/m2 Lilliam Scally Other [facility] Other 02-01-2023 10:15-0400 Body weight 115.03 kg Lilliam Scally Other [facility] Other 02-01-2023 10:15-0400 Diastolic blood pressure 78 mm[Hg] Lilliam Scally Other [facility] Other 02-01-2023 10:15-0400 Respiratory rate 20 /min Lilliam Scally Other [facility] Other 02-01-2023 10:15-0400 SaO2% (BldA) [Mass fraction] 96 % Lilliam Scally Other [facility] Other 02-01-2023 10:15-0400 Systolic blood pressure 130 mm[Hg] Lilliam Scally Other [facility] Other 12-22-2022 13:00-0400 Body height 165.1 cm Nikki Fitt Other [facility] Other 12-22-2022 13:00-0400 Body mass index (BMI) [Ratio] 41.73 kg/m2 Nikki Fitt Other [facility] Other 12-22-2022 13:00-0400 Body weight 113.76 kg Nikki Fitt Other [facility] Other 10-19-2022 10:15-0400 Body height 165.1 cm Lilliam Scally Other [facility] Other 10-19-2022 10:15-0400 Body mass index (BMI) [Ratio] 41.41 kg/m2 Lilliam Scally Other [facility] Other 10-19-2022 10:15-0400 Body weight 112.9 kg Lilliam Scally Other [facility] Other 10-19-2022 10:15-0400 Diastolic blood pressure 72 mm[Hg] Lilliam Scally Other [facility] Other 10-19-2022 10:15-0400 Respiratory rate 18 /min Lilliam Scally Other [facility] Other 10-19-2022 10:15-0400 SaO2% (BldA) [Mass fraction] 96 % Lilliam Scally Other [facility] Other 10-19-2022 10:15-0400 Systolic blood pressure 110 mm[Hg] Lilliam Scally Other [facility] Other 10-19-2022 08:15-0400 Body height 165.1 cm Nikki Manning Other [facility] Other 07-27-2022 10:45-0400 Body height 165.1 cm Lilliam Scally Other [facility] Other 07-27-2022 10:45-0400 Body mass index (BMI) [Ratio] 41.08 kg/m2 Lilliam Scally Other [facility] Other 07-27-2022 10:45-0400 Body weight 111.99 kg Lilliam Scally Other [facility] Other 07-27-2022 10:45-0400 Diastolic blood pressure 72 mm[Hg] Lilliam Scally Other [facility] Other 07-27-2022 10:45-0400 Respiratory rate 20 /min Lilliam Montejo Other [facility] Other 07-27-2022 10:45-0400 SaO2% (BldA) [Mass fraction] 97 % Lilliam Montejo Other [facility] Other 07-27-2022 10:45-0400 Systolic blood pressure 109 mm[Hg] Lilliam Montejo Other [facility] Other 06-15-2022 09:15-0500 Body height 165.1 cm Nikki Fitt Other [facility] Other 06-01-2022 13:03-0500 Body height 163.83 cm Gopi Solis MD Work Phone: [facility] DO Work Phone: 06-01-2022 13:03-0500 Body mass index (BMI) [Ratio] 43.6 kg/m2 Gopi Solis MD Work Phone: [facility] DO Work Phone: 06-01-2022 13:03-0500 Body surface area Derived from formula 2.19 m2 Gopi Solis MD Work Phone: [facility] 250 DO Work Phone: 06-01-2022 13:03-0500 Body weight 117.03 kg Gopi Solis MD Work Phone: [facility] DO Work Phone: 06-01-2022 13:03-0500 Diastolic blood pressure 62 mm[Hg] Gopi Solis MD Work Phone: [facility] DO Work Phone: 06-01-2022 13:03-0500 Heart rate 76 /min Gopi Solis MD Work Phone: [facility] DO Work Phone: 06-01-2022 13:03-0500 Systolic blood pressure 126 mm[Hg] Gopi Solis MD Work Phone: [facility] DO Work Phone: 06-01-2022 12:30-0500 Body height 165.1 cm Lilliam Scally Other [facility] Other 06-01-2022 12:30-0500 Body mass index (BMI) [Ratio] 42.85 kg/m2 Lilliam Scally Other [facility] Other 06-01-2022 12:30-0500 Body weight 116.8 kg Lilliam Scally Other [facility] Other 06-01-2022 12:30-0500 Diastolic blood pressure 70 mm[Hg] Lilliam Scally Other [facility] Other 06-01-2022 12:30-0500 Respiratory rate 20 /min Lilliam Scally Other [facility] Other 06-01-2022 12:30-0500 SaO2% (BldA) [Mass fraction] 97 % Lilliam Scally Other [facility] Other 06-01-2022 12:30-0500 Systolic blood pressure 112 mm[Hg] Lilliam Scally Other [facility] Other 02-09-2022 15:01-0400 Body height 162.56 cm Ronnie Murphy MD Work Phone: BN-Obsclwovouosmt-Ivk [facility] Work Phone: 02-09-2022 15:01-0400 Body mass index (BMI) [Ratio] 46.35 kg/m2 Ronnie Murphy MD Work Phone: KU-Cjjdowkluujgqo-Ova [place] Work Phone: 02-09-2022 15:01-0400 Body surface area Derived from formula 2.22 m2 Ronnie Murphy MD Work Phone: DD-Lfbslpavmvjfyo-Kff tlake Work Phone: 02-09-2022 15:01-0400 Body weight 122.47 kg Ronnie Murphy MD Work Phone: QS-Abnnaslwyjszoi-Swp t[place] Work Phone: 03-31-2021 15:33-0500 Body height 162.56 cm Ronnie Murphy MD Work Phone: MH-Sutaocmxihtdjc-Jmb tlake Work Phone: 03-31-2021 15:33-0500 Body mass index (BMI) [Ratio] 46.52 kg/m2 Ronnie Murphy MD Work Phone: ZS-Vequyekazyjncl-Aja [place]lake Work Phone: 03-31-2021 15:33-0500 Body surface area Derived from formula 2.23 m2 Ronnie Murphy MD Work Phone: LD-Fauadupxjjolbp-Sog tlake Work Phone: 03-31-2021 15:33-0500 Body temperature 97.2 [degF] Ronnie Murphy MD Work Phone: KZ-Utdiwogqdqdpet-Qyc tlake Work Phone: 03-31-2021 15:33-0500 Body weight 122.93 kg Ronnie Murphy MD Work Phone: GO-Zfrtteglzxdvqt-Kbo tlake Work Phone: 03-03-2021 12:52-0400 Body height 162.56 cm Ronnie Murphy MD Work Phone: VR-Kxgydcokofjrva-Zve tlake Work Phone: 03-03-2021 12:52-0400 Body mass index (BMI) [Ratio] 46.35 kg/m2 Ronnie Murphy MD Work Phone: IA-Gyqrypaoynhcka-Qip tlake Work Phone: 03-03-2021 12:52-0400 Body surface area Derived from formula 2.22 m2 Ronnie Murphy MD Work Phone: QU-Gwmpilvdjlhudl-Bqc tlake Work Phone: 03-03-2021 12:52-0400 Body weight 122.47 kg Ronnie Murphy MD Work Phone: SI-Evmcesskqrzedz-Ihi t[place] Work Phone: 02-10-2021 15:05-0400 Body height 162.56 cm Ronnie Murphy MD Work Phone: AP-Mrdfcvuzhtgutl-Xae tlake Work Phone: 02-10-2021 15:05-0400 Body mass index (BMI) [Ratio] 46 kg/m2 Ronnie Murphy MD Work Phone: YE-Velcwfznkwmijh-Uiu [place] Work Phone: 02-10-2021 15:05-0400 Body surface area Derived from formula 2.22 m2 Ronnie Murphy MD Work Phone: QD-Cyormoamjfgsah-Btg t[place] Work Phone: 02-10-2021 15:05-0400 Body temperature 97.4 [degF] Ronnie Murphy MD Work Phone: MR-Nhercuckvopkeh-Fas [place] Work Phone: 02-10-2021 15:05-0400 Body weight 121.56 kg Ronnie Murphy MD Work Phone: QS-Gxvdjqzjhwkrnp-Cid t[place] Work Phone: Encounters Encounter Date Encounter Type Care Provider Facility Start: 04-10-2024 ambulatory Ben Mcbride acility:[facility] Start: 04-10-2024 End: 04-10-2024 ambulatory BELLO HILTON [facility] Start: 04-10-2024 End: 04-10-2024 ambulatory [facility] Ambulatory Start: 03-05-2024 End: 03-06-2024 Telephone encounter Bello Hilton MD Work Phone: [facility] Start: 02-21-2024 End: 02-21-[address] [facility] Start: 02-21-2024 End: 02-21-2024 Office outpatient visit 15 minutes Ronnie Murphy MD Work Phone: [facility] Comment on above: Tracheal stenosis (P rimary Dx); Gastroesophageal reflux disease without esophagitis Start: 02-14-2024 End: 02-14-2024 Bamboo flowsheet Cristina Hubbard [employer] Work Phone: [facility] Start: 02-14-2024 End: 02-14-2024 Bamboo flowsheet Cristina Hubbard [employer] Work Phone: [facility] Start: 02-14-2024 End: 02-14-2024 Assay of hemosiderin, quant Cristina Hubbard [employer] Work Phone: [facility] Start: 02-14-2024 End: 02-14-2024 Patient encounter procedure Cristina Hubbard NP Work Phone: [facility] Comment on above: Medicare annual well ness visit, subsequent (Primary Dx); Obstructive sleep apnea; BiPAP (biphasic positive airway pressure) dependence; Dyspnea on exertion; Decreased right ventricular systolic function; LVH (left ventricular hypertrophy); Mitral valve insufficiency and aortic valve stenosis; Gastroesophageal reflux disease without esophagitis; Hepatomegaly; Intra-abdominal lymphadenopathy; Tubular adenoma of colon; Lower extremity edema; Acquired hypothyroidism ([facility]/HCC); Morbid obesity with BMI of 40.0-44.9, adult ([facility]); Type 2 diabetes mellitus without complication, without long-term current use of insulin ([facility]); Bipolar 1 disorder, depressed, partial remission ([facility]); Mixed hyperlipidemia ([facility]); Lipoprotein deficiency disorder ([facility]); Routine general medical examination at health care facility; Acute bronchitis, unspecified organism; Estrogen deficiency; Screening for heart disease; Trigger finger of left hand, unspecified finger; Type 2 diabetes mellitus with other specified complication ([facility]) Start: 02-14-2024 End: 02-14-2024 ambulatory CRISTINA HUBBARD Not Available Start: 12-20-2023 End: 12-20-2023 ambulatory II Bello Hilton Work Phone: [facility] Work Phone: Start: 12-20-2023 End: 12-20-2023 Patient encounter procedure II Bello Yobani Work Phone: [facility] Work Phone: Start: 10-25-2023 Registered Recurring II Bello Hilton Work Phone: [facility] Start: 10-19-2023 End: 10-19-2023 Departed Referred II Bello Yobani Work Phone: [facility] Work Phone: Start: 10-19-2023 End: 10-19-2023 ambulatory II Bello Hilton Work Phone: [facility] Work Phone: Start: 10-19-2023 End: 10-19-2023 Patient encounter procedure II Bello Hilton Work Phone: [facility] Work Phone: Start: 10-06-2023 End: 10-06-2023 ambulatory DENISE SÁNCHEZ Not Available Start: 10-05-2023 End: 10-05-2023 ambulatory II Bello Hilton Work Phone: [facility] Work Phone: Start: 10-05-2023 End: 10-05-2023 Patient encounter procedure II Bello Hilton Work Phone: [facility] Work Phone: Start: 08-09-2023 End: 08-09-2023 ambulatory II Bello Hilton Work Phone: [facility] Work Phone: Start: 08-09-2023 End: 08-09-2023 Patient encounter procedure II Bello Hilton Work Phone: [facility] Work Phone: Start: 08-06-2023 End: 08-06-2023 Emergency department patient visit II Bello Hilton Work Phone: [facility]Emer[facility] Room Work Phone: Start: 07-22-2023 End: 07-22-2023 ambulatory MIKALA MOE Not Available Start: 07-05-2023 End: 07-05-2023 Patient encounter procedure II Bello Hilton Work Phone: [facility] [place] Work Phone: Start: 06-28-2023 End: 06-28-2023 ambulatory CRISTINA HUBBARD Not Available Start: 06-14-2023 Registered Recurring II Bello Hilton Work Phone: [facility]- Credible Start: 06-07-2023 (FCCCWMNF/U) Weight Management f/u Lilliam Montejo [facility] Start: 06-07-2023 End: 06-07-2023 ambulatory Lilliam Montejo [employer] Other Start: 06-07-2023 Registered Recurring II Bello Hilton Work Phone: [facility] Work Phone: Start: 06-03-2023 End: 06-04-2023 ambulatory Emiliano Lagos Facility:[facility] Start: 06-03-2023 End: 06-03-2023 Patient encounter procedure Emiliano Lagos [facility] [place] Start: 06-01-2023 End: 06-01-2023 ambulatory CRISTINA HUBBARD Not Available Start: 05-25-2023 End: 05-25-2023 ambulatory Lilliam Montejo Other [facility] Other Start: 05-25-2023 Telephone encounter [facility] Start: 05-17-2023 ambulatory Emiliano Lagos Facility:[facility] Start: 05-17-2023 Non-patient / Non-visit II Jac reddviktoria Hilton Work Phone: [facility] Work Phone: Start: 05-16-2023 Telephone encounter [facility] Start: 05-16-2023 End: 05-16-2023 ambulatory II Bello Hilton Work Phone: [facility] Other Start: 05-16-2023 End: 05-16-2023 Departed Referred II Bello Hilton Work Phone: [facility] Start: 05-16-2023 Non-patient / Non-visit II Jac Hilton Work Phone: [facility] Work Phone: Start: 05-15-2023 End: 05-17-2023 ambulatory SHAIKH ADALID Facility:[id number] Start: 04-13-2023 End: 04-13-2023 ambulatory Lilliam Montejo Other [facility] Other Start: 04-13-2023 Telephone encounter [facility] Start: 03-18-2023 End: 03-18-2023 ambulatory Lilliam Montejo Other [facility] Other Start: 03-18-2023 Telephone encounter [facility] Start: 03-15-2023 Registered Recurring II Bello Hilton Work Phone: [facility] Work Phone: Start: 02-22-2023 End: 02-22-2023 Office outpatient visit 15 minutes Ronnie Murphy MD Work Phone: [facility] Comment on above: Tracheal stenosis (P rimary Dx) Start: 02-15-2023 ([facility] FU) [facility] F/ U [employer] Systems Engineer Nikki Manning [facility] Start: 02-15-2023 End: 02-15-2023 ambulatory Nikki Manning Other [facility] Other Start: 02-01-2023 ([facility]) Weight Management f/u Lilliamjose g Montejo [facility] Start: 02-01-2023 End: 02-01-2023 ambulatory Lilliam Montejo Other [facility] Other Start: 01-27-2023 Rx Renewal Luana Cox MENTAL HEALTH AIDE-COATING OPERATOR Work Phone: BN-Thhkwxvgzupuex-Wcqt n [place] [address] Work Phone: Start: 01-05-2023 End: 01-05-2023 ambulatory Lilliam Montejo Other [facility] Other Start: 01-05-2023 Telephone encounter [facility] Start: 12-22-2022 ([facility] WMNI) WMN Init ial Provider Nikki Manning [facility] Start: 12-22-2022 End: 12-22-2022 ambulatory Nikki Fitt Other [facility] Other Start: 10-19-2022 ([facility]) Weight Management f/u Lilliam Alexandrely [facility] Start: 10-19-2022 End: 10-19-2022 ambulatory Nikki Fitt Other [facility] Other Start: 10-19-2022 IBT FOR OBESITY GROU P 2-10 30M Nikki Fitleslie [facility] Start: 09-02-2022 End: 09-03-2022 ambulatory LILLIAM MONTEJO Facility:[facility] Start: 08-05-2022 End: 08-05-2022 ambulatory Lilliam Montejo Other [facility] Other Start: 08-05-2022 Telephone encounter [facility] Start: 07-27-2022 ([facility] Weight Management f/u Lilliam Alexandrely [facility] Start: 07-27-2022 End: 07-27-2022 ambulatory Lilliam Alexandrely Other [facility] Other Start: 06-29-2022 End: 06-29-[address] DOCTOR SHANKS Facility:[facility] Start: 06-15-2022 End: 06-15-2022 ambulatory Nikki Fitt Other [facility] Other Start: 06-15-2022 IBT FOR OBESITY GROU P 2-10 30M [facility] Start: 06-01-2022 Office consultation new/estab patient 60 min Gopi Solis MD Work Phone: [facility] [address] DO Work Phone: Start: 06-01-2022 Office outpatient ne w 45 minutes Gopi Solis MD Work Phone: [facility] DO Work Phone: Start: 06-01-2022 (FCCCWMNF/U) Weight Management f/u Lilliam [facility] Start: 06-01-2022 End: 06-01-2022 ambulatory Bello Hilton II Facility: Start: 05-17-2022 End: 05-18-[address] DOCTOR SHANKS Facility:[facility] Start: 05-11-2022 End: 05-12-[address] CAROL ASCENCIO Facility:[facility] Start: 04-28-2022 Rx Change Luana Cox MENTAL HEALTH AIDE-COATING OPERATOR Work Phone: QI-Tgtjgpdybqwdja-Jjwb n [place] [address] Work Phone: Start: 02-09-2022 Office outpatient vi sit 15 minutes Ronnie Murphy MD Work Phone: O[place]-Fszufnghtlcdqn-[place] Work Phone: Start: 02-09-[address] RONNIE MURPHY Fa cility:[id number] Start: 05-15-2021 End: 08-13-2021 Patient encounter procedure BELLO HILTON [facility] Start: 04-16-2021 Rx Renewal Ronnie Murphy MD Work Phone: GW-Rycrfjksomlrtw-Ctvc n [place] [address] Work Phone: Start: 03-31-2021 Office outpatient vi sit 15 minutes Ronnie Murphy MD Work Phone: SF-Vkzyiwinsikyrg-Fpgk hoffmeister Work Phone: Start: 03-19-2021 [facility], Provider: Ronnie Murphy, Status: Pen, Time: 9:00 AM Ronnie Murphy MD Work Phone: PG-Zjoobqsuygyjin-Oaht man Work Phone: Start: 03-18-2021 Chart Update Ronnie Murphy MD Work Phone: NI-Knhhsewqhtikfy-Ewtj man Work Phone: Start: 03-04-2021 Chart Update Ronnie Murphy MD Work Phone: LK-Uuzoqfvjvpklls-Xdpq [place] Work Phone: Start: 02-11-2021 Telephone encounter Luana Espinosa ndt MENTAL HEALTH AIDE-COATING OPERATOR Work Phone: JV-Gzlrdzmqelbujz-Ucdv rban Work Phone: Start: 02-10-2021 Office outpatient vi sit 15 minutes Ronnie Murphy MD Work Phone: CN-Ukebhablxxnfmg-Xuuc [place] Work Phone: Start: 02-12-2020 Patient encounter procedure Ronnie Ellisu VY-Shqpttcjygicgb-Eqwo rban Work Phone: Start: 08-22-2018 Patient encounter procedure Ronnieacosta Ellisu EI-Ldgzbzufmvbpiv-Ssdl n [place] [address] Work Phone: Start: 02-28-2018 Patient encounter procedure Ronnie Ellisu HP-Lnhiqtrdonxatf-Yrbo n [place] [address] Work Phone: Start: 08-23-2017 Patient encounter procedure Ronnie Ellisu MH-Jxgonmxticnzeb-Zifr n [place] [address] Work Phone: Start: 02-22-2017 Patient encounter procedure Ronnie Ellisu CH-Dehsckhpjpcche-Lucf n [place] [address] Work Phone: Procedures Date Procedure Procedure Detail Performing Clinician Start: 02-15-2024 Lipid 1996 panel - S julieth or Plasma Ronnie Murphy MD Work Phone: Start: 02-15-2024 Thyrotropin [Units/v olume] in Serum or Plasma Ronnie Murphy MD Work Phone: Start: 02-14-2024 Hemoglobin glycosylated a1c Cristina Hubbard NP Work Phone: Start: 10-05-2023 Quick Strep (POC) II Warren Hilton Work Phone: Start: 08-06-2023 Duplex scan veins of upper limb II Bello Hilton Work Phone: Start: 08-06-2023 Plain chest X-ray II Warren Hilton Work Phone: Start: 08-06-2023 Plain X-ray of left shoulder II Bello Hilton Work Phone: Start: 05-16-2023 Laparoscopic cholecystectomy Emiliano Lagos Start: 05-11-2023 Mammography Cristina fox BRANCH MAKER Work Phone: Start: 05-11-2022 Mammography Ronnie mcdowell MD Work Phone: Start: 2019 Total colonoscopy Brigitte Daugherty MD Work Phone: Start: 07-14-2018 Colonoscopy Cristina fox BRANCH MAKER Work Phone: Start: 2001 Reduction mammoplasty J ohn Yolis Start: 1962 History of hernia repair Emiliano Lagos Hernia repair Gopi ovalle MD Work Phone: Operation on breast Gopi Solis MD Work Phone: Plan of Treatment Date Care Activity Detail Author Start: 07-14-2028 Screening for malign ant neoplasm of colon [facility] Start: 02-26-2025 End: 02-26-2025 Patient encounter procedure 02/26/2025 1:15 PM EDT Office Visit [facility] [address] [place] [address] [place] [address] [place] [address] [facility] Start: 02-14-2025 Lipid panel Lipid Panel [facility] Start: 02-14-2025 Thyroid stimulating hormone measurement TSH Level [facility] Start: 02-14-2025 Urine screening for protein Diabetes: Urine Protein Screening [facility] Start: 02-13-2025 Medicare Annual Wellness (AWV) Medicare Annual Wellness (AWV) [facility] Start: 02-13-2025 Pneumococcal Vaccine : 65+ Years (1 of 2 - PCV) Pneumococcal Vaccine: 65+ Years (1 of 2 - PCV) [facility] Comment on above: Postponed from 05/02 (Patient Refused) Start: 01-25-2025 Glaucoma screening Diabetes: R etinopathy Screening [facility] Start: 10-18-2024 Urine screening for protein Diabetes: Urine Protein Screening [facility] Start: 05-16-2024 Hemoglobin A1c measurement Diabetes: Hemoglobin A1C [facility] Start: 05-11-2024 Screening for malign ant neoplasm of breast Mammogram [facility] Start: 04-10-2024 Influenza vaccination Influenza Vacc ine (#1) [facility] Comment on above: Postponed from 12/31 (Patient Refused) Start: 04-10-2024 End: 04-10-2024 Patient encounter procedure 04/10/2024 8:20 AM EST Office Visit [facility] [address] [place] [address] [place] [address] [address] Department [place] [address] [facility] Start: 02-21-2024 End: 02-21-2024 Patient encounter procedure 02/21/2024 1:15 PM EDT Office Visit [facility] [address] [place] [address] [place] [address] [place] [address] [facility] Start: 02-14-2024 End: 02-13-2025 CBC panel - Blood by Automated count CBC Lab Routine Medicare annual wellness visit, subsequent Gastroesophageal reflux disease without esophagitis Lower extremity edema Type 2 diabetes mellitus without complication, without long-term current use of insulin (CMS/HCC) Expected: 02/14/2024 (Approximate), Expires: 02/13/2025 [facility] Comment on above: Expected: 02/14/2024 (Approximate), Expires: 02/13/2025 Start: 02-14-2024 End: 02-13-2025 Comprehensive metabolic 2000 panel - Serum or Plasma Comprehensive metabolic panel Lab Routine Medicare annual wellness visit, subsequent Type 2 diabetes mellitus without complication, without long-term current use of insulin (CMS/HCC) Expected: 02/14/2024 (Approximate), Expires: 02/13/2025 [facility] [employer] Comment on above: Expected: 02/14/2024 (Approximate), Expires: 02/13/2025 Start: 02-14-2024 End: 02-13-2025 DXA Skeletal system Views for bone density DEXA bone density Imaging Routine Medicare annual wellness visit, subsequent Estrogen deficiency Expected: 02/14/2024 (Approximate), Expires: 02/13/2025 [facility] Work Phone: Comment on above: Expected: 02/14/2024 (Approximate), Expires: 02/13/2025 Start: 02-14-2024 End: 02-13-2025 Lipid 1996 panel - Serum or Plasma Lipid panel Lab Routine Medicare annual wellness visit, subsequent Type 2 diabetes mellitus without complication, without long-term current use of insulin (CMS/HCC) Mixed hyperlipidemia (CMS/HCC) Expected: 02/14/2024 (Approximate), Expires: 02/13/2025 [facility] Comment on above: Expected: 02/14/2024 (Approximate), Expires: 02/13/2025 Start: 02-14-2024 End: 02-13-2025 Microalbumin/Creatinine panel in random Urine Microalbumin / creatinine, urine ratio Lab Routine Medicare annual wellness visit, subsequent Type 2 diabetes mellitus without complication, without long-term current use of insulin (CMS/HCC) Expected: 02/14/2024 (Approximate), Expires: 02/13/2025 [facility] Comment on above: Expected: 02/14/2024 (Approximate), Expires: 02/13/2025 Start: 02-14-2024 End: 02-13-2025 Thyrotropin [Units/volume] in Serum or Plasma TSH Lab Routine Medicare annual wellness visit, subsequent Acquired hypothyroidism (CMS/HCC) Expected: 02/14/2024 (Approximate), Expires: 02/13/2025 [facility] Comment on above: Expected: 02/14/2024 (Approximate), Expires: 02/13/2025 Start: 02-14-2024 End: 02-14-2024 Patient encounter procedure 02/14/2024 9:00 AM EDT Office Visit [facility] [address] [facility] [address] [place] [address] Cristina Hubbard NP [address] [facility] [address] [place] [address] Arrived [facility] Comment on above: Arrived Start: 01-01-2024 COVID-19 Vaccine ( season) COVID-19 Vaccine ( season) [facility] Start: 01-01-2024 Influenza vaccination Influenza Vacc ine (#1) [facility] Start: 12-15-2023 Medicare Annual Wellness (AWV) Medicare Annual Wellness (AWV) [facility] Start: 09-20-2023 Hemoglobin A1c measurement Diabetes: Hemoglobin A1C [facility] Start: 08-06-2023 Duplex scan veins of upper limb US venous duplex UE LT [facility] Start: 08-06-2023 US Upper extremity v ein - left [facility] Start: 06-14-2023 ambulatory Ambulatory Facility: [facility] Start: 05-11-2023 Screening for malign ant neoplasm of breast Mammogram [facility] Start: 02-22-2023 FUV, Provider: Ronnie Murphy, Status: Pen, Time: 2:45 PM FUV, Provider: Ronnie Murphy, Status: Pen, Time: 2:45 PM UJ-Jjcbucktiqabnj-C [place] Work Phone: Start: 12-31-2022 Influenza vaccination Influenza Vacc ine (#1) [facility] Start: 08-10-2022 FUV, Provider: Gopi Solis, Status: Pen, Time: 12:50 PM FUV, Provider: Gopi Solis, Status: Pen, Time: 12:50 [facility] Work Phone: Start: 07-13-2022 REST ONLY, Provider: CHASITY HHVI NUCLEAR 01,[id number], Status: Pen, Time: 12:30 PM REST ONLY, Provider: CHASITY HHVI NUCLEAR 01,[id number], Status: Pen, Time: 12:30 PM [facility] Work Phone: Start: 07-12-2022 STRESSNUC2, Provider : CHASITY HHVI NUCLEAR 01,[id number], Status: Pen, Time: 12:30 PM STRESSNUC2, Provider: CHASITY HHVI NUCLEAR 01,[id number], Status: Pen, Time: 12:30 PM [facility] Work Phone: Start: 07-06-2022 COVID-19 Vaccine (4 - Pfizer series) COVID-19 Vaccine (4 - Pfizer series) [facility] Start: 02-09-2022 FUV, Provider: Ronnie Murphy, Status: Pen, Time: 2:50 PM FUV, Provider: Ronnie Murphy, Status: Pen, Time: 2:50 PM QU-Mamkllcojwqsqr-L [place] Work Phone: Start: 03-31-2021 POV, Provider: Ronnie Murphy, Status: Pen, Time: 3:00 PM POV, Provider: Ronnie Murphy, Status: Pen, Time: 3:00 PM LI-Srajvjfpgvjztp-M eidman Work Phone: Start: 03-19-2021 SURGC, Provider: Ronnie Murphy, Status: Pen, Time: 9:00 AM SURGCMC, Provider: Ronnie Murphy, Status: Pen, Time: 9:00 AM JG-Phghxazeutllub-P [place] Work Phone: Start: 03-03-2021 FUV, Provider: Ronnie Murphy, Status: Pen, Time: 1:00 PM FUV, Provider: Ronnie Murphy, Status: Pen, Time: 1:00 PM HQ-Mocbnngqavdldo-L [place] Work Phone: Start: 2017 Hepatitis B Vaccines (1 of 3 - Risk 3-dose series) Hepatitis B Vaccines (1 of 3 - Risk 3-dose series) [facility] Start: 2017 RSV High Risk: (Elde rly (60+) or Population) (1 - Risk 60-74 years 1-dose series) RSV High Risk: (Elderly (60+) or Population) (1 - Risk 60-74 years 1-dose series) [facility] Start: 2007 Zoster Vaccines (1 o f 2) Zoster Vaccines (1 of 2) [facility] Start: 1979 DTaP/Tdap/Td Vaccine s (1 - Tdap) DTaP/Tdap/Td Vaccines (1 - Tdap) [facility] Start: 1978 Screening for malign ant neoplasm of cervix [facility] Start: 1976 Hepatitis A Vaccines (1 of 2 - Risk 2-dose series) Hepatitis A Vaccines (1 of 2 - Risk 2-dose series) [facility] Start: 1976 Urine screening for protein Diabetes: Urine Protein Screening [facility] Start: 1975 Hepatitis C screening Hepatitis C [facility] Start: 1967 Diabetic foot examination Diabetes: Foot Exam [facility] Start: 1967 Glaucoma screening Diabetes: R etinopathy Screening [facility] Start: 1963 Pneumococcal Vaccine : 65+ Years (1 - PCV) Pneumococcal Vaccine: 65+ Years (1 - PCV) [facility] Start: 1963 Pneumococcal Vaccine : 65+ Years (1 of 2 - PCV) Pneumococcal Vaccine: 65+ Years (1 of 2 - PCV) [facility] Start: 1958 MMR Vaccines (1 of 1 - Standard series) MMR Vaccines (1 of 1 - Standard series) [facility] Start: 1957 Hemoglobin A1c measurement Diabetes: Hemoglobin A1C [facility] Start: 1957 Lipid panel Lipid Panel [facility] Start: 1957 Screening for malign ant neoplasm of colon [facility] Start: 1957 Screening for osteoporosis Bone Density Scan [facility] Start: 1957 Thyroid stimulating hormone measurement TSH Level [facility] Start: 1957 Yearly Adult Physical Yearly Adult P hysical [facility] CT for calcium scori ng WO contrast and CTA W contrast IV Heart and coronary arteries CT heart calcium scoring wo IV contrast Imaging Routine Decreased right ventricular systolic function LVH (left ventricular hypertrophy) Type 2 diabetes mellitus without complication, without long-term current use of insulin (CMS/HCC) Mixed hyperlipidemia ([facility]/HCC) Screening for heart disease Ordered: 02/14/2024 [facility] Comment on above: Ordered: 02/14/2024 Patient Education Shoulder Pain (DC) [facility] Work Phone: Patient referral [facility] Work Phone: [facility] Immunizations Immunization Date Immunization Notes Care Provider Bart han 05-11-2022 Moderna SARS-CoV-2 Vaccination Cristina Hubbard BRANCH MAKER Work Phone: [facility] 05-11-2022 Pfizer COVID-19 Vac Bivalent 30 MCG/0.3ML Intramuscular Suspension Gopi Solis MD Work Phone: [facility] [address] DO Work Phone: 04-02-2021 Pfizer-BioNTech COVID-19 Vacc 30 MCG/0.3ML Intramuscular Suspension Gopi Solis MD Work Phone: [facility] [place] 09-15-2020 Pfizer-BioNTech COVID-19 Vacc 30 MCG/0.3ML Intramuscular Suspension Gopi Solis MD Work Phone: [facility] [place] 08-25-2020 Pfizer-BioNTech COVID-19 Vacc 30 MCG/0.3ML Intramuscular Suspension Gopi Solis MD Work Phone: [facility] [place] 03-01-2015 tetanus toxoid, adsorbed Cristina Hubbard NP Work Phone: [facility] NEGATED: Highlighted row has not occurred!06-03-2023 influenza virus vaccine, unspecified formulation Emiliano Lagos [facility] [place] Payers Date Payer Category Payer Medicare [id number] 2023 Unknown [id number] 2023 Miscellaneous or Other [facility] [id number] 2023 Unknown [id number] 2022 Private Health Insurance [id number] 2022 Medicare [id number] 2022 Self-pay 2021 Private Health Insurance COV ID [id number] Private Health Insurance [id number] 1957 Unknown [id number] 2.16.840.1.569239.3.579. 2.356 1957 Unknown [id number] 2.16.840.1.584659.3.579. 2.356 1957 Unknown [id number] 2.16.840.1.069354.3.579. 2.593 1957 Unknown [id number] 2.16.840.1.478264.3.579. 2.593 1957 Unknown [id number] 2.16.840.1.275315.3.579. 2.593 1957 Unknown [id number] 2.16.840.1.082260.3.579. 2.593 1957 Unknown [id number] 2.16.840.1.195352.3.579. 2.727 1957 Unknown [id number] 2.16.840.1.296886.3.579. 2.727 1957 Unknown [id number] 2.16.840.1.205713.3.579. 2.727 1957 Unknown [id number] 2.16.840.1.542089.3.579. 2.727 1957 Unknown [id number] 2.16.840.1.704839.3.579. 2.727 1957 Unknown [id number] 2.16.840.1.606201.3.579. 2.1259 1957 Unknown [id number] 2.16.840.1.361676.3.579. 2.1259 1957 Unknown [id number] 2.16.840.1.621918.3.579. 2.1259 1957 Unknown [id number] 2.16.840.1.204360.3.579. 2.1259 1957 Unknown [id number] 2.16.840.1.435751.3.579. 2.1259 1957 Unknown [id number] 2.16.840.1.968868.3.579. 2.1244 1957 Unknown [id number] 2.16.840.1.594210.3.579. 2.1244 1957 Unknown [id number] 2.16840.1.415555.3.579. 2.1245 Medicare Medicare- Part A Only [id number] Unknown Unknown [id number] Unknown [id number] 2.16840.1.339640.19 Unknown HCAP/HFA/FAP Active [id number] Unknown [id number] 2.16840.1.742234.3.579. 2.531 Unknown [id number] 2.16840.1.729889.3.579. 2.531 Unknown [id number] 2.16.840.1.712687.3.579. 2.531 Unknown [id number] 2.16840.1.186740.3.579. 2.531 Unknown [id number] 2.0.1.511579.3.579. 2.531 Social History Date Type Detail Facility Start: 02-22-2023 End: 02-14-2024 Never a smoker Never a smoker HO-Rqpwvlqsqxghzd-Jy gemini ramos Work Phone: Comment on above: pop 3 daily; Start: 02-22-2023 End: 02-14-2024 Sex Assigned At Female [facility] Start: 09-22-2022 End: 02-22-2023 Tobacco smoking status NHIS Never smoked tobacco [facility] Start: 09-22-2022 End: 10-24-2023 Tobacco use and exposure Smokeless tobacco non-user [facility] Work Phone: Start: 1955 [facility] Work Phone: Start: 02-12-2023 End: 02-21-2024 Exposure to SARS-CoV-2 (event) Not sure [facility] Start: 1955 Sex Assigned At Female F [facility] Tobacco smoking status Never [facility] Start: 10-06-2023 End: 02-14-2024 Alcoholic beverage intake Lifetime non-drinker (finding) [facility] Start: 10-04-2022 Alcohol Comment Caffeine intak e: none [facility] NEGATED: Highlighted row - - YG-Tfntctckemflfw-Au m in [place] [address] Work Phone: Medical Equipment Procedure Code Equipment Code Equipment Origin al Text Equipment Identifier Dates Pen [place] 32G X 4 MM Start: 02-01-2023 Laser Engineerin g Hwg 500 Fiber Case [id number] Start: 03-19-2021 Comment on above: Description: Convert ed from [facility]. Please see archived information for full log information. Additional Information:per bill only jdr 03/28/2021 1456pm Functional Status Date Assessment Result Facility 06-03-2023 Functional Status N/A [facility] [place] NEGATED: Highlighted row Functional performance Functional status health issues are not documented Disease JY-Bhmeqnazmfauqy-I in [place] [address] Work Phone: Mental Status Date Assessment Result Facility NEGATED: Highlighted row Cognitive function [Interpretation] Cognitive status health issues are not documented Disease BH-Adtsgdavqifllo-Y [place] [address] Work Phone: Clinical Notes 03-03-2021 to 03-05-2024 Telephone Encounter - Justine Bell - 03/05/2024 3:25 PM ESTTelephone Encounter - Justine Bell - 03/05/2024 3:25 PM Vijay Murphy MD - 02/21/2024 1:15 PM EDT Note Date & Type Note Facility 03-05-2024 Telephone encounter Note [facility] office called and stated that they tried to contact the patient to schedule appt for the referral that was sent to them but tired to two weeks to contact and is unable to get ahold of them. [facility] 03-05-2024 Miscellaneous Notes [facility] office called and stated that they tried to contact the patient to schedule appt for the referral that was sent to them but tired to two weeks to contact and is unable to get ahold of them. documented in this encounter [facility] 02-21-2024 History of Present illness Narrative Provider Impressions 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 I do believe that the stenotic segment is well-healed and this probably will not get worse. The patient was encouraged to lose weight. Reflux laryngitis for which she is on omeprazole. He was instructed to try to cut down the dosage of his weight. The prescription was reviewed. I will see her in 1 year. [...] from reflux. She continues to use omeprazole. She uses 20 mg twice daily. Physical Exam A flexible laryngoscopy was carried [...] of any inflammation. documented in this encounter [facility] Work Phone: 02-14-2024 History of Present illness Narrative HPI Med Refill Additional comments: Metformin, levothyroxine,simvastain--[facility] Last edited by Shantel Bahena LPN on 02/14/2024 9:06 AM. Images from the original note were not included. Subjective : Chief Complaint: Bette Villafana is an 68 y.o. female here for an annual wellness visit. I have reviewed and reconciled the history and medication list with the patient today. Current Outpatient Medications Medication Sig Dispense Refill levothyroxine (Synthroid, Levoxyl) 100 MCG tablet TAKE 1 TABLET BY MOUTH EVERY DAY IN THE MORNING ON EMPTY STOMACH FOR 90 DAYS 100 tablet 3 LORazepam (Ativan) 0.5 MG tablet Take 0.5 mg by mouth Daily as needed for anxiety metFORMIN (Glucophage) 500 MG tablet TAKE 1 TABLET BY MOUTH EVERY DAY WITH A MEAL FOR 90 DAYS 100 tablet 3 omeprazole (PriLOSEC) [address] capsule Take 20 mg by mouth in the morning and 20 mg in the evening. Take before meals. risperiDONE (RisperDAL) 2 MG tablet Take 2 mg by mouth in the morning. semaglutide (Ozempic, 0.25 or 0.5 MG/DOSE,) 2 MG/1.5ML solution pen-injector Inject 0.25 mg under the skin 1 (one) time per week. simvastatin (Zocor) 40 MG tablet TAKE 1 TABLET BY MOUTH EVERY DAY IN THE EVENING FOR 90 DAYS 100 tablet 3 venlafaxine XR (Effexor XR) 75 MG 24 hr capsule Take 75 mg by mouth in the morning and 75 mg before bedtime. No current facility-administered medications for this visit. Review of Systems Constitutional: Negative. HENT: Positive for congestion. Respiratory: Positive for cough. Cardiovascular: Negative. Gastrointestinal: Negative. Genitourinary: Negative. Musculoskeletal: Negative. Skin: Negative. Neurological: Negative. Psychiatric/Behavioral: Negative. All other systems reviewed and are negative. List of current healthcare providers: Patient Care Team: Bello Hilton MD as PCP - General (Internal Medicine) Medicare Annual Visit Over the past 2 weeks, how often have you been bothered by any of the following problems? Little interest or pleasure in doing things: Not at all Feeling down, depressed, or hopeless: Not at all Patient Health Questionnaire-2 Score: 0 [place] Fall Risk History of Falling, Immediate or Within 3 Months: No Secondary Diagnosis: No Ambulatory Aid: Walks without aid/bedrest/nurse assist Health Risk Assessment Form Do you need help eating, bathing, using the toilet, dressing, or getting around your home?: No Can you prepare your own meals?: Yes Can you do your own housework without help?: Yes Can you shop for groceries or clothes without help?: Yes Do you exercise for about 20 minutes 3 or more days a week?: Yes How confident are you that you can control and manage most of your health problems?: Very confident Can you mange your money, credit cards and accounts, pay bills and taxes?: Yes Cognitive Screening Three Word Registration: Apple, Watch, Padmini Clock Drawing: Normal Clock - 2 Three Word Recall: All 3 words correct - 3 Total Score (0-5 Points): 5 Pain Assessment Pain Score: 2 Advance Care Planning Do you have a living will?: No Do you have a medical power of real estate associate attorney?: No Objective : BP 128/66 Pulse 81 Ht 5' 5 Wt 264 lb SpO2 95% BMI 43.93 kg/m No results found. Physical Exam Vitals reviewed. Constitutional: Appearance: Normal appearance. HENT: Head: Normocephalic. Right Ear: Tympanic membrane normal. Left Ear: Tympanic membrane normal. Nose: Nose normal. Mouth/Throat: Mouth: Mucous membranes are moist. Pharynx: Oropharynx is clear. Eyes: Conjunctiva/sclera: Conjunctivae normal. Pupils: Pupils are equal, round, and reactive to light. Cardiovascular: Rate and Rhythm: Normal rate and regular rhythm. Heart sounds: Normal heart sounds. Pulmonary: Effort: Pulmonary effort is normal. Breath sounds: Wheezing present. Comments: Nonproductive cough Abdominal: General: Bowel sounds are normal. Palpations: Abdomen is soft. Musculoskeletal: General: Normal range of motion. Cervical back: Neck supple. Skin: General: Skin is warm and dry. Neurological: General: No focal deficit present. Mental Status: She is alert and oriented to person, place, and time. Psychiatric: Mood and Affect: Mood normal. Behavior: Behavior normal. Assessment/Plan : The following health maintenance schedule was reviewed with the patient and provided in printed form in the after visit summary: Health Maintenance Topic Date Due Pneumococcal Vaccine: 65+ Years (1 of 2 - PCV) Never done Diabetes: Hemoglobin A1C 09/20/2023 Medicare Annual Wellness (AWV) 12/15/2023 Influenza Vaccine (1) Never done Mammogram 05/11/2024 Diabetes: Urine Protein Screening 10/18/2024 Diabetes: Retinopathy Screening 01/25/2025 Colorectal Cancer Screening 07/14/2028 Advance Care Planning Educated on Living will and DPOA 1. Medicare annual wellness visit, subsequent (Primary) Reviewed all relevant preventative screenings with the patient in detail. Medicare Wellness form completed and will be scanned into patient's chart. All needed testing was ordered. Will continue with yearly Medicare Wellness exams. - POCT Glycated hemoglobin, total - DEXA bone density; Future - TSH; Future - Lipid panel; Future - Microalbumin / creatinine, urine ratio; Future - CBC; Future - Comprehensive metabolic panel; Future - TSH - Lipid panel - Microalbumin / creatinine, urine ratio - CBC - Comprehensive metabolic panel 2. Obstructive sleep apnea This is a chronic medical condition that is stable since last assessment. No changes in treatment are suggested at this time. 3. BiPAP (biphasic positive airway pressure) dependence This is a chronic medical condition that is stable since last assessment. No changes in treatment are suggested at this time. 4. Dyspnea on exertion This is a chronic medical condition that is stable since last assessment. No changes in treatment are suggested at this time. 5. Decreased right ventricular systolic function This is a chronic medical condition that is stable since last assessment. No changes in treatment are suggested at this time. - CT heart calcium scoring wo IV contrast 6. LVH (left ventricular hypertrophy) This is a chronic medical condition that is stable since last assessment. No changes in treatment are suggested at this time. - CT heart calcium scoring wo IV contrast 7. Mitral valve insufficiency and aortic valve stenosis This is a chronic medical condition that is stable since last assessment. No changes in treatment are suggested at this time. 8. Gastroesophageal reflux disease without esophagitis GERD discussed with the patient. Pt educated regarding avoiding high acid food triggers such as caffeine products, fruits high in acid, spicy foods, and tomato based products. Advsied to avoid all NSAIDS medications, i.e. Motrin, Aleve. Ok to use Tylenol prn. Encouraged pt to avoid laying down immediately after meals. - CBC; Future - CBC 9. Hepatomegaly This is a chronic medical condition that is stable since last assessment. No changes in treatment are suggested at this time. 10. Intra-abdominal lymphadenopathy This is a chronic medical condition that is stable since last assessment. No changes in treatment are suggested at this time. 11. Tubular adenoma of colon This is a chronic medical condition that is stable since last assessment. No changes in treatment are suggested at this time. 12. Lower extremity edema This is a chronic medical condition that is stable since last assessment. No changes in treatment are suggested at this time. - CBC; Future - CBC 13. Acquired hypothyroidism (CMS/HCC) This is a chronic medical condition that is stable since last assessment. No changes in treatment are suggested at this time. - TSH; Future - TSH 14. Morbid obesity with BMI of 40.0-44.9, adult (CMS/HCC) Discussed goal of BMI < 30. Advised on weight loss options. Encouraged diet and exercise. Discussed with patient appropriate lifestyle modification changes necessary for weight management, heart healthy eating and overall health promotion. Discussed minimizing high carb, high sugar, high sodium, portion control, and processed foods while making healthy choice replacements. Additionally discussed recommendations of 30 minutes of aerobic exercise at least 5 days per week, that includes, walking, and chair exercises. . Instructed importance of drinking adequate water consumption (if not on fluid restriction) with minimal sugar and caffiene. 15. Type 2 diabetes mellitus without complication, without long-term current use of insulin (CMS/HCC) We discussed today, the importance of proper diabetic control. We discussed possible complications of diabetes, including loss of vision, renal failure, increased risk of heart attacks and strokes, blood vessel and/or nerve damage. We discussed the recommended changes to reduce your blood sugars and minimize the risk of these complications. We discussed diabetic goals, including keeping A1C <7.0% and blood pressure < 130/70. The plan for achieving these goals is adherence to medications, diet, and regular activity as discussed during today's visit. We discussed current barriers to achieving these goals. We discussed dietary goals. We discussed calorie counting, as well as decreasing carbohydrate and simple sugar intake. Reviewed portion control with the patient. If the patient still has questions on this, a referral to a Dietitian can be arranged. I reviewed medications that aid in diabetic control. We discussed proper dosing and educated the patient on possible side effects and complications. The patient verbalized understanding of these instructions. - POCT Glycated hemoglobin, total - Lipid panel; Future - Microalbumin / creatinine, urine ratio; Future - CBC; Future - Comprehensive metabolic panel; Future - Lipid panel - Microalbumin / creatinine, urine ratio - CBC - Comprehensive metabolic panel - CT heart calcium scoring wo IV contrast 16. Bipolar 1 disorder, depressed, partial remission ([facility]) This is a chronic medical condition that is stable since last assessment. No changes in treatment are suggested at this time. 17. Mixed hyperlipidemia ([facility]) This is a chronic medical condition that is stable since last assessment. No changes in treatment are suggested at this time. - Lipid panel; Future - Lipid panel - CT heart calcium scoring wo IV contrast 18. 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) This is a chronic medical condition that is stable since last assessment. No changes in treatment are suggested at this time. 19. [facility] Reviewed all relevant preventative screenings with the patient in detail. Medicare Wellness form completed and will be scanned into patient's chart. All needed testing was ordered. Will continue with yearly Medicare Wellness exams. 20. Acute bronchitis, unspecified organism Start the above medications as directed. Advised of potential side effects of the steroid. Patient is to take the steroid with food. Can take Tessalon Perles prn for cough. Increase water intake, get plenty of rest. Can take Tylenol prn for any discomfort or fever. No other anti-inflammatories while on steroid. Cough into elbow. Wash hands often. Advised patient that cough can linger with bronchitis. Follow up in our office if no improvement in one week. - azithromycin (Zithromax) 250 MG tablet; Take 2 tablets (500 mg) by mouth Daily for 1 day, THEN 1 tablet (250 mg) Daily for 4 days. Dispense: 6 tablet; Refill: 0 - methylPREDNISolone (Medrol Dospak) 4 MG tablets; Follow schedule on package instructions Dispense: 21 tablet; Refill: 0 21. Estrogen deficiency Await resuts - DEXA bone density; Future 22. Screening for heart disease Await testing - CT heart calcium scoring wo IV contrast 23. Trigger finger of left hand, unspecified finger Await referral - Ambulatory referral to Orthopaedic Surgery; Future No orders of the defined types were placed in this encounter. Electronically signed by Cristina Hubbard NP on February 14, 2024 documented in this encounter [facility] 06-07-2023 Evaluation note Encounter Date Diagnosis Assessment Notes Jun, Obesity (ICD-10 - E66.9) Jun, Diabetes type 2, uncontrolled (ICD-10 - E11.65) sample Ozempic prepared after appt. Discussed how diabetes can be impacted with lifestyle changes such as, losing weight, being active, improving dietary intake. Discussed the risks for diabetes. Explained that weight loss of 5-10% can have significant impact. Consistent with weight management recommendati ons, encouraged diet rich in fruits, vegetables, low fat dairy, low in red meat sweets and refined grains. Stay away from soda and fruit juice. Increase activity 30 minutes most days of the week. Jun, BMI 40.0-44.9, adult (ICD-10 - Z68.41) Jun, Hypothyroid (ICD-10 - E03.9) Interval surveillance and optimization Jun, Anxiety and depression (ICD-10 - F41.8) Consideration mental health to assure proper goal setting and strategies for success Jun, Heartburn (ICD-10 - R12) Discussed possibility of worsening of reflux with GLP-1 medications. Weight loss can also contribute to resolution of Jun, Hyperlipidemia (ICD-10 - E78.5) Discussed risks of elevated LDL. Encouraged intake of foods low in saturated fat as well as supplements (jamel, fish oil). Discussed LDL contributing to insulin resistance and increase cardiovascular risk factors. Jun, Snores (ICD-10 - R06.83) Jun, RYANNE (obstructive sleep apnea) (ICD-10 - G47.33) [...] with PCP if no increased feelings of restfulness/vig ilance during awake hours. Might necessitate sleep adjunct.. 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 [facility] 10-24-2023 History of Present illness Narrative* Ronnie Murphy MD - 02/22/2023 2:45 PM EDT Provider Impressions Tracheal stenosis. Her breathing has [...] was carried out. Under topical Xylocaine and Eleuterio- Synephrine the scope was introduced through the nostril. The nasopharynx, base of tongue, hypopharynx, and larynx are visualized. The vocal cords are normally mobile. I was able to pass the scope into the upper trachea. The stenotic segment is a few centimeters below the vocal cords. It is definitely not more than 30 to 40%.There is no evidence of any inflammation. documented in this [facility] Work Phone: 1(128) 502-534710-17-2023 Evaluation note* Encounter Date Diagnosis Assessment Notes Treatment Notes Treatment Clinical Notes Jan, Obesity (ICD-10 - E66.9) Jan, BMI 40.0-44.9, adult (ICD-10 - Z68.41) Jan, Other Summary of Visi t: (A) discussed [...] other veggie/fruit w/ dinner; PARTIALLY MET, ON-GOING [facility] Other 10-03-2023 Evaluation note* Encounter Date Diagnosis Assessment Notes Treatment Notes Treatment Clinical Notes Jan, Obesity (ICD-10 - E66.9) [facility] sent wrong diagnosis code, then sent to non preferred pharmacy. Sent to [facility] per [facility] preferred. Jan, BMI 40.0-44.9, adult (ICD-10 - Z68.41) Jan, Hypothyroid (ICD-10 - E03.9) Interval surveillance and optimization Jan, Diabetes type 2, uncontrolled (ICD-10 - E11.65) sample Monalisa 11/30/2022 Discussed how diabetes II delayed or [...] was counseling done by myself, Moira NICHOLS. [facility] Other 08-23-2023 Evaluation note* Encounter Date Diagnosis [...] beans, salad or other veggie/fruit w/ dinner [facility] 06-20-2023 Evaluation note* Encounter Date Diagnosis [...] patient set personal goal using given handout. [facility] Other 06-20-2023 Evaluation note* Encounter Date Diagnosis Assessment Notes Treatment Notes Treatment Clinical Notes Sep, Obesity (ICD-10 - E66.9) fir st sent wrong diagnosis code, then sent to non preferred pharmacy. Sent to [facility] per [place] preferred. Sep, BMI 40.0-44.9, adult (ICD-10 - [...] was counseling done by myself, Moira NICHOLS. [facility] Other 03-28-2023 Evaluation note* Encounter Date Diagnosis Assessment Notes Treatment Notes Treatment Clinical Notes Jun, Obesity (ICD-10 - E66.9) fir st sent wrong diagnosis code, then sent to non preferred pharmacy. Sent to [facility] per [facility] preferred. Jun, BMI 40.0-44.9, adult (ICD-10 - [...] was counseling done by myself, Moira NICHOLS. [facility] Other 02-14-2023 Evaluation note* Encounter Date Diagnosis [...] patient set personal goal using given handout. [facility] Other 01-31-2023 Evaluation note* Encounter Date Diagnosis Assessment Notes Treatment Notes Treatment Clinical Notes May, Obesity (ICD-10 - E66.9) first sent wrong diagnosis code, then sent to non preferred pharmacy. Sent to [facility] per [facility] preferred. May, BMI 40.0-44.9, adult (ICD-10 - [...] was counseling done by myself, Moira NICHOLS. [facility] Other 01-31-2023 History of Present illness Narrative* [...] * 5. Follow-up after testing is done [facility] [address] DO Work Phone: 1(163) 394-682211-02-2021 History of Present illness NarrativeThigemini patient presented with a tracheal stenosis. I [...] and is very pleased with the results. [facility] Work Phone: 1(449) 474-378711-02-2021 History of Present illness NarrativeThis patient presented [...] today for follow-up. Her breathing has remained stable.[facility] Work Phone: chigi complaint Narrative - ReportedAMY LEDY is being seen for a consultation for [facility] DO Work Phone: Evaluation + Plan note No data available for this section [facility] Future Appointments Appointment Date:06/14/2023 02:20:00 PM Scheduled Provider:Mayito YANG MD Location:[facility] Appointment Type:[address] General Surgery [place] Evaluzdjnj noteNo [employer] Other Evaluation note* Diagnosis Tracheal stenosis- Primary Other diseases of trachea and bronchus documented in this encounter [facility] Work Phone: Evaluation noteNo assessment information available [facility] Work Phone: Evaluation note* Diagnosis Onset Date Resolution Status Abnormal CT of the abdomen a cute Acid reflux acute Adrenal abnormality acute Anxiety and depression acute Bipolar disorder acute BMI 40.0-44.9, adult acute Diabetes type 2, uncontrolled acute Fatigue acute Fatty pancreas acute Hyperlipidemia acute Hypertriglyceridemia acute Hypothyroid acute Obesity acute RYANNE (obstructive sleep apnea) acute Snores acute Vitamin D deficiency acute [facility] Work Phone: Evaluation note* Diagnosis Onset Date Resolution Status Abnormal CT of the abdomen a cute Acid reflux acute Adrenal abnormality acute Anxiety and depression acute Bipolar disorder acute BMI 40.0-44.9, adult acute Diabetes type 2, uncontrolled acute Fatigue acute Fatty pancreas acute Hyperlipidemia acute Hypertriglyceridemia acute Hypothyroid acute Obesity acute RYANNE (obstructive sleep apnea) acute Snores acute Vitamin D deficiency acute Allergies acute Sore throat noneactive [facility] Work Phone: Evaluation note* Diagnosis Onset Date Resolution Status Abnormal CT of the abdomen a cute Acid reflux acute Adrenal abnormality acute Anxiety and depression acute Bipolar disorder acute BMI 40.0-44.9, adult acute Diabetes type 2, uncontrolled acute Fatigue acute Fatty pancreas acute Hyperlipidemia acute Hypertriglyceridemia acute Hypothyroid acute Obesity acute RYANNE (obstructive sleep apnea) acute Snores acute Vitamin D deficiency acute Allergies acute Sore throat noneactive Abnormal CT of the abdomen a cute Acid reflux acute Adrenal abnormality acute Anxiety and depression acute Bipolar disorder acute BMI 40.0-44.9, adult acute Diabetes type 2, uncontrolled acute Fatigue acute Fatty pancreas acute Hyperlipidemia acute Hypertriglyceridemia acute Hypothyroid acute Obesity acute RYANNE (obstructive sleep apnea) acute Snores acute Vitamin D deficiency acute [facility] Work Phone: Evaluation note* Diagnosis Onset Date Resolution Status Allergies acute Sore throat noneactive Abnormal CT of the abdomen a cute Acid reflux acute Adrenal abnormality acute Anxiety and depression acute Bipolar disorder acute BMI 40.0-44.9, adult acute Diabetes type 2, uncontrolled acute Fatigue acute Fatty pancreas acute Hyperlipidemia acute Hypertriglyceridemia acute Hypothyroid acute Obesity acute RYANNE (obstructive sleep apnea) acute Snores acute Vitamin D deficiency acute [facility] Work Phone: Evaluation note* Diagnosis Medicare annual wellness visit, subsequent- Primary Obstructive sleep apnea Obstructive sleep apnea (adult) (pediatric) BiPAP (biphasic positive airway pressure) dependence Dependence on other enabling machine Dyspnea on exertion Other dyspnea and respiratory abnormality Decreased right ventricular systolic function LVH (left ventricular hypertrophy) Cardiomegaly Mitral valve insufficiency and aortic valve stenosis Gastroesophageal reflux disease without esophagitis Esophageal reflux Hepatomegaly Intra-abdominal lymphadenopathy Tubular adenoma of colon Benign neoplasm of colon Lower extremity edema Edema Acquired hypothyroidism (CMS/HCC) Unspecified hypothyroidism Morbid obesity with BMI of 40.0-44.9, adult (CMS/HCC) Type 2 diabetes mellitus without complication, without long-term current use of insulin (CMS/HCC) Bipolar 1 disorder, depressed, partial remission (CMS/HCC) Mixed hyperlipidemia (CMS/HCC) Mixed hyperlipidemia Lipoprotein deficiency disorder (CMS/HCC) Lipoprotein deficiencies Routine general medical examination at health care facility Routine general medical examination at a health care facility Acute bronchitis, unspecified organism Estrogen deficiency Other ovarian failure Screening for heart disease Screening for other and unspecified cardiovascular conditions Trigger finger of left hand, unspecified finger Type 2 diabetes mellitus with other specified complication (CMS/HCC) documented in this encounter [facility] Healthcare[facility]* Diagnosis Tracheal stenosis- Primary Other diseases of trachea and bronchus Gastroesophageal reflux disease without esophagitis Esophageal reflux documented in this encounter [facility] Work Phone: Hiszcfl general Narrative - Reported* Type Description Date Medical History thyroid disease Medical History Cholesterol Medical History depression Medical History acid reflux Medical History bipolar Surgical History breast reduction Surgical History throat surgery Surgical History hernia Hospitalization History see surgical hx [facility] Other [facility] general Narrative - Reported* Type Description Date Medical History thyroid disease Medical History Cholesterol Medical History depression Medical History acid reflux Medical History bipolar Surgical History breast reduction Surgical History throat surgery Surgical History hernia Hospitalization History see surgical hx Hospitalization History [facility] 07/2022 [facility] general Narrative - Reported* Type Description Date Medical History thyroid disease Medical History Cholesterol Medical History depression Medical History acid reflux Medical History bipolar Medical History gall bladder disease Surgical History breast reduction Surgical History throat surgery Surgical History hernia Surgical History [facility] 05-16-2023 Hospitalization History see surgical hx Hospitalization History [facility] ER 07/2022 [place] Other History of Present illness NarrativeThis patient [...] time it feels like it is somewhat [id number]-Pksjaskhrhleru-Hfviqgkv Work Phone: Hospital Discharge instructions No data available for this section [facility] Additional Instructions Follow-up with your primary care doctor Return to ED if develop worsening symptoms [facility] Work Phone: Progress note No data available for this section [facility] General Surgery [place] Family History No Family History Records Found [...] diabetes m ellitus: Father, Sister(V18.0, Z83.3) Status:Active Relationship Condition Age at Onset Recorded Date/T lelo father Diabetes mellitus Unknown Unknown family member Unknown Not Specified Diabetes mellitus Unknown Family history of mental disorder Unknown Relationship Condition Age at Onset Recorded Date/T lelo father Diabetes mellitus Unknown Unknown family member Unknown Not Specified Family history of mental disorder Unknow n Malignant neoplasm Unknown brother Diabetes mellitus Unknown brother Malignant neoplasm Unknown Relationship Condition Age at Onset Recorded Date/T lelo father Diabetes mellitus Unknown Unknown family member Unknown Not Specified Family history of mental disorder Unknow n Malignant neoplasm Unknown brother Diabetes mellitus Unknown brother Malignant neoplasm Unknown Malignant neoplasm of kidney Unknown Relationship Condition Age at Onset Recorded Date/T lelo father Diabetes mellitus Unknown Unknown family member Unknown mother Family history of mental disorder Unknown Malignant neoplasm Unknown brother Diabetes mellitus Unknown brother Malignant neoplasm Unknown Malignant neoplasm of kidney Unknown Chief Complaint Follow-up regarding tracheal stenosisFollow-up regarding tracheal stenosis Follow-up regarding tracheal stenosis Summary Purpose Advance Directives No Advanced Directives Records Found Advance Directive Response Recorded Date/ Time Advance Directives No May 26, 2023 6:39pm Advance Directive Response Recorded Date/ Time Advance Directives No October 04 10:01am Reason for Referral Reason CT abdomen and pelvi s done June 2022 noting moderate fatty infiltrate of the pancreatic head and mild fatty infiltration of the pancreatic body and tail, otherwise unremarkable. Nonspecific 1.2 cm right adrenal nodule measuring 37 Hounsfield units left adrenal unremarkable send 06/2022 CT abdomen and pelvis report Diagnosis 1 Obesity (E66.9) Diagnosis 2 Adrenal abnormality (E27.9) Diagnosis 3 Fatty pancreas (K86. 89) Referral Organization [facility] Referring Provider First Name Lilliam Referring Provider Last Name Guerita Referring Provider Specialty Nurse Pract itioner Referred Organization Unknown Facility Referred Provider Specialty Endocrinolog y Referral Priority Routine Chief Complaint and Reason for Visit Chief Complaint Congestion, sore thr oat WMN f/u e11.9 BH 8-10 week f/u WMN f/u Reason for Visit Allergies Sore throat Abnormal CT of the abdomen Acid reflux Adrenal abnormality Anxiety and depression Bipolar disorder BMI 40.0-44.9, adult Diabetes type 2, uncontrolled Fatigue Fatty pancreas Hyperlipidemia Hypertriglyceridemia Hypothyroid Obesity RYANNE (obstructive sleep apnea) Snores Vitamin D deficiency Chief Complaint left arm pain Congestion, sore throat WMN f/u Reason for Visit Abnormal CT of the a bdomen Acid reflux Adrenal abnormality Anxiety and depression Bipolar disorder BMI 40.0-44.9, adult Diabetes type 2, uncontrolled Fatigue Fatty pancreas Hyperlipidemia Hypertriglyceridemia Hypothyroid Obesity RYANNE (obstructive sleep apnea) Snores Vitamin D deficiency Allergies Sore throat Abnormal CT of the abdomen Acid reflux Adrenal abnormality Anxiety and depression Bipolar disorder BMI 40.0-44.9, adult Diabetes type 2, uncontrolled Fatigue Fatty pancreas Hyperlipidemia Hypertriglyceridemia Hypothyroid Obesity RYANNE (obstructive sleep apnea) Snores Vitamin D deficiency Chief Complaint left arm pain Congestion, sore throat Reason for Visit Abnormal CT of the a bdomen Acid reflux Adrenal abnormality Anxiety and depression Bipolar disorder BMI 40.0-44.9, adult Diabetes type 2, uncontrolled Fatigue Fatty pancreas Hyperlipidemia Hypertriglyceridemia Hypothyroid Obesity RYANNE (obstructive sleep apnea) Snores Vitamin D deficiency Allergies Sore throat Chief Complaint Follow Up left arm pain Reason for Visit Abnormal CT of the a bdomen Acid reflux Adrenal abnormality Anxiety and depression Bipolar disorder BMI 40.0-44.9, adult Diabetes type 2, uncontrolled Fatigue Fatty pancreas Hyperlipidemia Hypertriglyceridemia Hypothyroid Obesity RYANNE (obstructive sleep apnea) Snores Vitamin D deficiency Chief Complaint Cholecystitis Obesity Follow Up left arm pain Chief Complaint Cholecystitis Obesity Follow Up left arm pain Additional Source Comments INFORMATION SOURCE (unrecogn ized section and content) DATE CREATED AUTHOR 06/02/2022 [facility] DATE CREATED AUTHOR AUTHOR'S ORGANIZ ATION 06/02/2022 [employer] DATE CREATED AUTHOR AUTHOR'S ORGANIZ ATION 09/09/2022 [facility] DATE CREATED AUTHOR AUTHOR'S ORGANIZ ATION 06/10/2023 [facility] DATE CREATED AUTHOR AUTHOR'S ORGANIZ ATION 02/16/2024 [facility] DATE CREATED AUTHOR AUTHOR'S ORGANIZ ATION 04/13/2024 [facility] DATE CREATED AUTHOR AUTHOR'S ORGANIZ ATION 04/13/2024 [facility] DATE CREATED AUTHOR AUTHOR'S ORGANIZ ATION 04/16/2024 [facility] REASON FOR VISIT (unrecogniz ed section and content) Reason Comments Follow-up Reason Comments Medicare Annual Wellness Visit Subsequen t Med Refill Metformin, levothyro xine,simvastain--[facility] Care Teams (unrecognized sec tion and content) Team Status: Active Member Role Status Melvin Hilton II MD Primary Care Provider Active Team Status: Inactive Member Role Status Dates Bello Hilton II MD Primary Care Provider Active Start: July 05, 2023 End: July 05, [address] LD Attending Provider Active Start: July 05, 2023 End: July 05, 2023 Team Status: Inactive Member Role Status Melvin Hilton II MD Primary Care Provider Active Start: August 06, 2023 End: August 06, 2023 Serg Boucher DO Emergency Provider Active Sta rt: August 06, 2023 End: August 06, 2023 Team Status: Inactive Member Role Status Melvin Hilton II MD Primary Care Provider Active Start: August 09, 2023 End: August 09, 2023 Lilliam Montejo APRN Attending Provider Active Start: August 09, 2023 End: August 09, 2023 Team Status: Active Member Role Status Melvin Montejo APRN Attending Provider Active Start: March 15, 2023 Bello Hilton II MD Primary Care Provider Active Start: March 15, 2023 Team Status: Inactive Member Role Status Melvin Hilton II MD Primary Care Provider Active Start: May 16, 2023 End: May 16, 2023 Mayito Yang MD FACS Attending Provider Active Start: May 16, 2023 End: May 16, 2023 Team Status: Active Member Role Status Melvin Hilton II MD Primary Care Provid er, Attending Provider Active Start: May 16, 2023 Team Status: Active Member Role Status Melvin Hilton II MD Primary Care Provid er, Attending Provider Active Start: May 17, 2023 Team Status: Active Member Role Status Melvin Montejo APRN Attending Provider Active Start: June 07, 2023 Bello Hilton II MD Primary Care Provider Active Start: June 07, 2023 Team Status: Active Member Role Status Dates Bello Hilton II MD Primary Care Provider Active Start: June 14, 2023 Ben Wasserman MD Attending Provider Active Start: June 14, 2023 Team Status: Inactive Member Role Status Dates Bello Hilton II MD Primary Care Provider Active Start: October 05, 2023 End: October 05, 2023 Maricel Jones APRN Attending Provider Active S tart: October 05, 2023 End: October 05, 2023 Team Status: Inactive Member Role Status Dates Bello Hilton II MD Primary Care Provider Active Start: October 19, 2023 End: October 19, 2023 Lilliam Montejo APRN Attending Provider Active Start: October 19, 2023 End: October 19, 2023 Team Status: Inactive Member Role Status Dates Bello Hilton II MD Primary Care Provider Active Start: October 05, 2023 End: October 05, 2023 Maricel Jones [place] [employer]DERS Attending Provider Active Start: October 05, 2023 End: October 05, 2023 Team Status: Active Member Role Status Dates Bello Hilton II MD Primary Care Provider Active Start: October 25, 2023 Ben Wasserman MD Attending Provider Active Start: October 25, 2023 Team Status: Inactive Member Role Status Dates Bello Hilton II MD Primary Care Provider Active Start: December 20, 2023 End: December 20, 2023 Lilliam Montejo APRN Attending Provider Active Start: December 20, 2023 End: December 20, 2023 Website Project Manager Relationship Specialty Start Date End Date Bello Hilton MD [address] [facility] [address] [place] [address] PCP - General Internal Medicine 09/21/22 Website Project Manager Relationship Specialty Start Date End Date Bello Hilton MD [address] [facility] [address] [place] [address] PCP - General Internal Medicine 09/21/22 Website Project Manager Relationship Specialty Start Date End Date Bello Hilton MD [address] [facility] [address] [place] [address] PCP - General Internal Medicine 02/21/24 Website Project Manager Relationship Specialty Start Date End Date Bello Hilton MD [address] [facility] [address] [place] [address] PCP - General Internal Medicine 09/21/22 Goals (unrecognized section and content) Goals may be documented in a n alternate section FOR RECORDS PERTAINING TO PATIENTS WHO ARE [...] BE BASED ON THE PRIMARY CLINICAL RECORDS. [employer] provides no warranty or guarantee of the accuracy or completeness of information in this document.
[2024-04-18 11:08] LABS: DHEA-Sulfate 34.8 ug/dL (20.4-186.6)
[2024-04-18 13:07] LABS: ACTH, Plasma 1.8 pg/mL (7.2-63.3)
== END 2024-04-17 07:57 | disposition home or self-care (01) ==
LOC: LAB 07:59
PROVIDERS: PCP Internal Medicine
DX: E27.9 Disorder of adrenal gland, unspecified (principal)
CPT/HCPCS: 36415; 80299; 82024; 82533; 82627

== ENCOUNTER 2024-04-18 07:10 | Outpatient (OUT) | payer MEDICARE, OTHER, SELFPAY ==
[2024-04-18 07:55] LABS: Estimated GFR (African America >60 (>=60 mL/min/1.73m^2); Estimated GFR (Non-African Ame >60 (>=60 mL/min/1.73m^2)
--- NOTE | 2024-04-18 08:32 | CT_ITS ---
[address] [address] Patient Name: BETH DONOVAN MRN: [id number] date: 1955 Sex: F Assigned Patient Location: LAB Current Patient Location: Accession/Order Number: [id number] Exam Date: 04/18/2024 08:05 Report Date: 04/19/2024 05:04 At the request of: NON-STAFF PHYSICIAN Procedure: CT abdomen wo/w con EXAMINATION: CT abdomen wo/w con HISTORY: Adrenal nodule, E27.9 COMPARISON: CT abdomen pelvis 05/15/2023 TECHNIQUE: Axial, Coronal, and Sagittal images were obtained without and/or with IV contrast as indicated by examination type. Dose reduction techniques were achieved by using automated exposure control and/or adjustment of mA and/or kV according to patient size and/or use of iterative reconstruction technique FINDINGS: LUNG BASES: No visible pulmonary or pleural disease. LIVER: No enlargement, atrophy, abnormal density, or significant focal lesion. BILIARY: Cholecystectomy. PANCREAS: No lesion, fluid collection, ductal dilatation, or atrophy. SPLEEN: No enlargement or focal lesion. ADRENALS: 1.0 cm right adrenal nodule with 71% absolute washout and 48% relative washout which are both predicted of an adrenal adenoma. KIDNEYS: Small right renal cyst. No mass, obstruction, or calcification. BOWEL/MESENTERY: No visible mass, obstruction, or bowel wall thickening. AORTA/VASCULAR: No aneurysm or dissection. RETROPERITONEUM: No mass or adenopathy. ABDOMINAL WALL: No mass or hernia. BONES: No bony lesion or fracture. OTHER: Negative. CT/CT abdomen wo/w con IMPRESSION: 1. Right adrenal gland 1.0 cm nodule most compatible with a benign adenoma. No additional follow-up recommended at this time. Electronically authenticated by: CAROL ASCENCIO Date: 04/19/2024 05:04
== END 2024-04-18 07:11 | disposition home or self-care (01) ==
LOC: LAB 07:10
PROVIDERS: Radiology Diagnostic Radiology; PCP Internal Medicine
DX: E27.9 Disorder of adrenal gland, unspecified (principal)
CPT/HCPCS: 36415; 74170; 82565; Q9967

== ENCOUNTER 2024-05-30 12:50 | Outpatient (OUT) | payer MEDICARE, OTHER, SELFPAY ==
--- NOTE | 2024-05-30 12:52 | MM_ITS ---
Patient Name: BETH DONOVAN MR#: [id number] : 1955 Exam Date: 05/30/2024 Ordering Doctor: DR ADI GRANT M.D. RADIOLOGY REPORT PROCEDURE: MM TOMOSYNTHESIS SCREENING BI COMPARISON: MM TOMOSYNTHESIS SCREENING BI, 05/11/2023. MG MAMM SCREEN 3D AFLA CAD, 05/11/2022. MG MAMM SCREEN 3D ALFA CAD, 05/05/2021. MG MAMM ALFA SCRN W CAD DIG, 04/19/2013. INDICATIONS: Screening Calculator Name NCI Breast Cancer Risk Assessment Tool 5 Year Breast Cancer Risk 3.00% Lifetime Breast Cancer Risk 10.20% Personal Breast Cancer No Personal Ovarian Cancer No Treatments None Family Cancers Mother with breast cancer at age 75; Aunt-maternal with breast cancer at age ~70; Brother with kidney cancer at age ~50. LOCATION: [facility] BREAST COMPOSITION: The breasts are almost entirely fatty. FINDINGS: DIAGNOSTIC CATEGORY 2--BENIGN FINDING: RIGHT BREAST: No significant suspicious finding. Scattered benign-appearing calcifications are present. No significant change has occurred. LEFT BREAST: No significant suspicious finding. Scattered benign-appearing calcifications are present. No significant change has occurred. RECOMMENDATIONS: ROUTINE MAMMOGRAM AND CLINICAL EVALUATION IN 12 MONTHS. PLEASE NOTE: A NORMAL MAMMOGRAM DOES NOT EXCLUDE THE POSSIBILITY OF BREAST CANCER. A CLINICALLY SUSPICIOUS PALPABLE LUMP SHOULD BE BIOPSIED. Dictated by: Abdias Romeo M.D. on 05/31/2024 at 16:06 Approved by: Abdias Romeo M.D. on 05/31/2024 at 16:08
--- OUTSIDE RECORDS SUMMARY | 2024-05-30 13:12 | XMS_ITS | CCD ---
Author Organization [facility] CliniSypr Care Team Providers Care Commutator Operator Name Role Phone Ronnie Murphy Unavailable Unavailable Update Needed Unavailable Unavailable Asad Joiner Unavailable Unavailable Unavailable Unavailable Unavailable Ronnie Murphy Unavailable Unavailable Cox, Luana Unavailable Unavailable Update Needed Unavailable Unavailable Unavailable Unavailable Unavailable Unavailable Unavailable Unavailable Bello Hilton II Primary Care Unavail able Irma, Dr. Nguyễn Referring Unavaila ble Trabherb, Dr. Nguyễn Attending Unavaila ble KRYSERTU, Dr. RONNIE Clark Referring Unavailabl e KRYSERTParveen, Dr. RONNIE Clark Attending Unavailabl e Bello Hilton IIxton Primary Care Unavail able Guerita Lilliam Unavailable [...] [employer] Consulting Unavailable Unavailable Primary Care Provider Unavailabl e Guerita, DYNAMITE CARTRIDGE CRIMPER Lilliam C Attending Provider TANESHA Hilton Primary Care Provider [phone] MD Mayito Yang Attending Provider [phone] BELLO HILTON Primary Care Physician Emiliano Lagos Attending Unavailable Mayito YANG Attending Unavailable SHAIKH CORDOBA Referring Unavailable Mayito YANG Attending Unavailable TANESHA Hilton Primary Care Provider MD Mayito Yang Attending Provider ORVILLE Montejo Attending Provider DO Serg Boucher Emergency Provider MD Ben Wasserman Attending Provider Yobani, II Bello Primary Care Provider [phone] ORVILLE Montejo Attending Provider Yobani, II Bello Primary Care Provider MD Ben Wasserman Attending Provider CRISTINA HUBBARD Attending Unavailable CRISTINA HUBBARD Attending Unavailable MIKALA MOE Attending Unavailable DENISE SÁNCHEZ Attending Unavailable CRISTINA HUBBARD Attending Unavailable Bello Hilton MD Primary Care Provider Bello Hilton MD Primary Care Provider BELLO HILTON Primary Care Unavailable RONNIE MURPHY Attending Unavailable BELLO HILTON Primary Care Unavailable DOMINIC SALDANA Attending Unavailable BELLO HILTON Primary Care Unavailable Guerita, Lilliam C Admitting Unavailable Guerita Lilliam C Attending Unavailable Bello Hilton Primary Care Unavailable Scally, Lilliam C Admitting Unavailable Scalclark, Lilliam C Attending Unavailable Bello Hilton Primary Care Unavailable Lux, Ben Admitting Unavailab le Ben Wasserman Attending Unavailab le Bello Hilton Primary Care Unavailable Serg Boucher Admitting Unavailable Serg Boucher Attending Unavailable Bello Hilton Primary Care Unavailable Bello Hilton Primary Care Unavailable Mayito Yang Admitting Unavailable Mayito Yang Attending Unavailable Allergies Allergy Classification Reported Allergen(s) Allergy Type Date of Onset Reaction(s) Facility (1 source) No Known Medication Allergies; Translations: [No Known Medication Allergies] Propensity to adverse reactions (disorder) [facility] Repository Medications Current Medications Medication Drug Class(es) [...] weekly for 30 days E11.65 Rx Bin [id number], Group: [id number], [facility] 3F, ID: [id number] Sep, Active Mounjaro 2.5 MG/ 0.5ML as directed Subcutaneous weekly for 30 days E11.65 Rx Bin [id number], Group: [id number], [facility] 3F, ID: [id number]-- NOT covered Not-Taking Mounjaro 2.5 MG/ 0.5ML as directed Subcutaneous weekly for 30 days E11.65 Rx Bin [id number], Group: [id number], [facility] 3F, ID: [id number]-- NOT covered Active azithromycin 250 mg oral [...] 4 days. 6 tablet 02/14/2024 02/19/2024 Active dexamethasone 1 mg oral tablet (17 sources) Corticosteroid Start: 04-10-2024 take 1 tablet by mouth once in the evening dexAMETHasone (Decadron) 1 mg tablet Indications: Adrenal nodule Take 1 tablet (1 mg) by mouth 1 time for 1 dose. -take 1mg of dexamethasone around 10- 11 pm, blood work at 8am 1 tablet 04/10/2024 Active Start: 04-20-2020 take 1 tablet by poli th every twenty-four hours dexAMETHasone 6 MG 1 tablet Orally Once a day for 5 day(s) Apr, Not-Taking/PRN levothyroxine sodium 0.1 mg oral tablet (20 sources) l-Thyroxine Start: 05-18-2023 take 1 tablet by mouth once daily levothyroxine 100 mcg (0.1 mg) Tab 100 mcg = 1 tab(s), Oral, Daily, Refills(s) 0 Start Date: 05/18/23 Status: Ordered Start: 01-09-2021 take 1 tablet by poli th once daily levothyroxine (Synthroid, Levoxyl) 100 mcg tablet Take 1 tablet (100 mcg) by mouth once daily. 01/09/2021 Active Start: 01-09-2021 Levothyroxine Sodium 100 [...] End: 02-21-2024 take 1 capsule by mouth twice daily omeprazole (PriLOSEC) [address] capsule Indications: Tracheal stenosis , Gastroesophageal reflux disease without esophagitis Take 1 capsule (20 mg) by mouth 2 times a day. 180 capsule 2 02/21/2024 Active Start: 05-11-2018 take 1 tablet by [...] 12-25-2012 take 1 tablet by poli th once daily at bedtime risperiDONE (RisperDAL) 2 mg tablet Take 1 tablet (2 mg) by mouth once daily at bedtime. 11/28/2014 Active 0.25 mg, 0.5 mg dose 1.5 ml semaglutide 1.34 mg/ml pen injector (15 sources) End: 02-22-2023 semaglutide (Ozempic) 0.25 m g or 0.5 mg(2 mg/1.5 mL) pen injector Inject under the skin 1 (one) time per [...] tablet (20 sources) HMG-CoA Reductase Inhibitor Start: 03-27-2024 take 1 tablet by mouth once daily in the evening simvastatin (Zocor) 40 MG tablet Indications: Mixed hyperlipidemia (CMS/HCC) TAKE 1 TABLET BY MOUTH EVERY DAY IN THE EVENING FOR 90 DAYS 100 tablet 3 03/27/2024 Active Start: 04-04-2023 take [address] [facility] once daily in the evening simvastatin (Zocor) [...] 05/15/23 Status: Ordered take 1 capsule by [facility] every twenty-four hours in the morning venlafaxine [...] 19, 2023 11:08am Vitamin D3 1.25 MG (57826 UT) TAKE 1 CAPSULE BY MOUTH WEEKLY FOR 56 DAYS for 56 Not-Taking/PRN take 1 capsule by mo uth every twenty-four hours Vitamin D3 50 MCG (2000 UT) 1 capsule Or ally Once a day Active take 1 capsule by mouth once rishi ly Cholecalciferol 1.25 MG (68445 UT) 1 capsule Orally weekly for 56 days when complete take 4000 u daily OTC Not-Taking/PRN take 1 capsule by mouth once rishi ly Cholecalciferol 1.25 MG (06027 UT) 1 capsule Orally weekly for 56 days when complete take 4000 u daily OTC Active dextromethorphan hydrobromide 30 mg / pyrilamine maleate 30 mg oral tablet (16 sources) Uncompetitive Q-ospveg-I-aspartate Receptor Antagonist, Sigma-1 Agonist Start: 04-20-2020 take 1 tablet by mouth every six hours [place] DMT 30-30 MG 1 tablet Orally every [...] weekly for 30 days E11.65 Rx Bin [id number], Group: [id number], [facility] 3F, ID: [id number]-- NOT covered Not-Taking/PRN predniSONE 50 mg oral [...] INFECTIONS] Onset: 3 Episodic Heart valve disorders (9 sources) Rheumatic disorders of both mitral and [...] Onset: 3 Chronic Other aftercare (1 source) him analyst (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) use of oral hypoglycemic drugs; Translations: [FDC USE ORAL HYPOGLYCEMIC DX] Onset: 3 Episodic Other aftercare (1 source) Other frame hand (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; Translations: [OTH FDC CURRENT DRUG THERAPY] Onset: 3 Episodic Other and ill-defined heart disease (10 sources) Right ventricular systolic dysfunction; Translations: [Other ill-defined heart diseases] Onset: 3 09-21-2022 Chronic Other and ill-defined heart disease (10 sources) Left ventricular hypertrophy; Translations: [Cardiomegaly] Onset: [...] Translations: [Unspecified disorder of adrenal glands] Onset: Chronic Other endocrine disorders (1 source) Adrenal mass; Translations: [Disorder of adrenal gland, unspecified] 04-10-2024 Chronic Other gastrointestinal disorders (6 sources) Heartburn; Translations: [HEARTBURN] Onset: Episodic Other gastrointestinal disorders (1 source) Diarrhea, unspecified; Translations: [DIARRHEA UNSPECIFIED] Onset: Episodic Other gastrointestinal disorders (7 sources) Heartburn; Translations: [Heartburn] 08-01-2023 Episodic Other gastrointestinal disorders (1 source) Adrenal mass 04-15-2024 Episodic Other lower respiratory disease (12 sources) [...] sources) Obesity, unspecified; Translations: [Obesity, unspecified] Onset: Chronic Other nutritional; endocrine; and metabolic disorders (16 sources) Body mass index (BMI) 40.0-44.9, adult; Translations: [Body Mass Index 40.0-44.9, adult] Chronic Other nutritional; endocrine; and metabolic disorders (8 sources) Lipoprotein deficiency disorder; Translations: [Lipoprotein deficiency] Onset: 3 09-21-2022 Chronic Other nutritional; endocrine; and metabolic disorders (6 sources) Morbid obesity; Translations: [Morbid (severe) obesity due to excess calories] Onset: 3 09-21-2022 Chronic Other upper respiratory disease (6 sources) Allergic rhinitis; Translations: [Allergic rhinitis, unspecified] Onset: 3 09-21-2022 Chronic Other upper respiratory disease (2 sources) Other specified diseases of upper respiratory tract; Translations: [Other specified diseases of upper respiratory tract] Onset: 3 Episodic Other upper respiratory infections (4 sources) [...] (adult)(pediatric)] Onset: 3 Chronic Residual codes; unclassified (8 sources) Dependence on biphasic positive airway pressure [...] counseling and surveillance] Onset: 06-07-2023 Episodic Lymphadenitis (8 sources) Disorder of intra-abdominal lymph nodes; Translations: [Localized enlarged lymph nodes] Onset: 09-22-2022 09-22-2022 Episodic Other and unspecified benign neoplasm (8 sources) Tubular adenoma of colon; Translations: [Benign neoplasm of colon, unspecified] Onset: 09-21-2022 09-21-2022 Episodic Other connective tissue disease (1 source) Pain in left arm; Translations: [Pain in left arm] Onset: 08-06-2023 Episodic Other gastrointestinal disorders (19 sources) Dysphagia; Translations: [Dysphagia, unspecified] Onset: 01-23-2023 01-23-2023 Episodic Other gastrointestinal disorders (6 sources) Esophageal dysphagia; Translations: [Other dysphagia] Onset: 09-21-2022 09-21-2022 Episodic Other liver diseases (8 sources) Large liver; Translations: [Hepatomegaly, not elsewhere classified] Onset: 09-22-2022 09-22-2022 Episodic Other lower respiratory disease (6 sources) Dyspnea; Translations: [Other respiratory abnormalities] Onset: 01-23-2023 01-23-2023 Episodic Other lower respiratory disease (1 source) Other forms of dyspnea; Translations: [OTHER FORMS OF DYSPNEA] Onset: 05-13-2022 Episodic Other lower respiratory disease (8 sources) Dyspnea on exertion; Translations: [Other forms of dyspnea] Onset: 09-21-2022 09-21-2022 Episodic Other nervous system disorders (1 source) Paresthesia of skin; Translations: [Paresthesia of skin] Onset: 08-06-2023 Episodic Other non-epithelial cancer of skin (6 sources) Basal cell carcinoma of cheek; Translations: [...] 09-21-2022 02-22-2023 Episodic Pancreatic disorders (not diabetes) (20 sources) Other specified diseases of pancreas; Translations: [...] KIDNEY] Onset: 05-13-2022 Episodic Residual codes; unclassified (9 sources) Never smoked any substance; Translations: [Other specified health status] Onset: 01-23-2023 01-23-2023 Episodic Residual codes; unclassified (8 sources) Edema of lower extremity; Translations: [Localized edema] Onset: 09-21-2022 09-21-2022 Episodic Unclassified (1 source) Exposure to 2019 novel coronavirus; Translations: [Contact with and (suspected) exposure to COVID19] Unclassified (3 sources) Never smoked tobacco; Translations: [Never a smoker] Unclassified (3 sources) Onset: 02-22-2023 02-22-2023 NEGATED: Highlighted row has not occurred!Residual codes; unclassified (12 sources) Disease Episodic Results Test Name Value Interpretation Reference Range Facility ALL DHEA SULFATEon DHEA-SULFATE 34.8 ug/dL 20.4 - 186.6 ug/dL [facility] CORTISOLon 04-18-2024 Interpretation and review of laboratory results Abnormal [facility] CORTISOL 0.4 ug/dL Abnormal 6.2 - 19.4 ug/dL [facility] Comment on above: Please Note: The ref erence interval and flagging for this test is for an AM collection. If this is a PM collection please use: Cortisol PM: 2.3-11.9 Performed at: [address] [id number] Geotechnical Intern: Saul Howard PhD, Phone: [phone] No Panel Informationon 04-18 [facility] CREATININEon 04-18-2024 Creatinine [Mass/Vol] 0.89 mg/dL 0.55 - 1.02 mg/dL [facility] GFR/1.73 sq M.predicted CKD-EPI (S/P/Bld) [Vol rate/Area] >60 >=60 mL/min/1.73m 2 [facility] EGFR-NON AF SENEGALESE >60 >=60 mL/min/1.73m 2 [facility] Catecholamines 3 panel (P) [ Mass/Vol]on 04-17-2024 DOPamine [Mass/Vol] <30 0 - 48 pg/mL [facility] EPINEPHrine (P) [Mass/Vol] <15 0 - 62 pg/mL [facility] Norepinephrine (P) [Mass/Vol] 624 pg/mL 0 - 874 pg/mL [facility] Performed at: - [address] [id number] Geotechnical Intern: Estrella Leggett MD, Phone: [phone] [facility] Metanephrines Plasmaon 04-13 Annotation comment [Interpretation] Narrative See Note [facility] Comment on above: INTERPRETIVE INFORMA TION: Metanephrines, Plasma (Free) This test is useful [...] developed and its performance characteristics determined by [facility]. It has not been cleared or approved by the US Food and Drug Administration. This test was performed in a CLIA certified laboratory and is intended for clinical purposes. Performed By: [facility] [address] [place] [address] Occupational Therapy Assist: Geronimo Gomez MD, PhD CLIA Number: [id number] Metanephrines [Moles/Vol] <0.10 0.00 - 0.49 nmol/L [facility] Normetanephrine Free [Moles/Vol] 0.51 nmol/L 0.00 - 0.89 nmol/L [facility] Dexamethasoneon 04-12-2024 Dexamethasone [Mass/Vol] <50.0 ng/dL [facility] Comment on above: INTERPRETIVE INFORMA TION: Dexamethasone, Serum or Plasma by LC-MS/MS Adults [...] developed and its performance characteristics determined by [facility]. It has not been cleared or approved by the US Food and Drug Administration. This test was performed in a CLIA certified laboratory and is intended for clinical purposes. Performed By: [facility] [address] [place] [address] Occupational Therapy Assist: Geronimo Gomez MD, PhD CLIA Number: [id number] Dexamethasone [Mass/Vol]on 1 06-13-2023 [facility] Adrenocorticotropic Hormone (ACTH)on 04-11-2024 Corticotropin (P) [Mass/Vol] 37.5 pg/mL 7.2 - 63.3 pg/mL [facility] Comment on above: INTERPRETIVE INFORMA TION: Adrenocorticotropic Hormone Reference interval based on samples collected between 7 a.m. and 10 a.m. No reference intervals established for p.m. collections. Pediatric reference values are the same as adults (Acta Paediatr Scand 1981;70:341-345). This assay measures intact ACTH 1-39; some types of synthetic ACTH and ACTH fragments are not detected by this assay. Performed By: [facility] [address] [place], [place] [id number] Occupational Therapy Assist: Geronimo Gomez MD, PhD CLIA Number: [id number] Corticotropin (P) [Mass/Vol] on 04-11-2024 [facility] Catecholamines 3 panel (P) [ Mass/Vol]on 04-10-2024 DOPamine [Mass/Vol] <30 Normal 0-48 [facility] Comment on above: Order Comment: TSH t esting is performed using different testing methodology at [facility] than at [facility]. Direct result comparisons should only be made within the same method. Performed By: #### 3 016-3 #### IDANIA Alexandre ([id number]) [facility] ([facility]) [address] [place] [address] EPINEPHrine (P) [Mass/Vol] <15 Normal 0-[address] [facility] Comment on above: Order Comment: TSH t esting is performed using different testing methodology at [facility] than at [facility]. Direct result comparisons should only be made within the same method. Performed By: #### 3 016-3 #### IDANIA Alexandre ([id number]) [facility] ([facility]) [address] [place] [address] Norepinephrine (P) [Mass/Vol] 624 pg/mL Normal 0-[address] [facility] Comment on above: Order Comment: TSH t esting is performed using different testing methodology at [facility] than at [facility]. Direct result comparisons should only be made within the same method. Performed By: #### 3 016-3 #### IDANIA Alexandre ([id number]) [facility] ([facility]) [address] [place] [address] Corticotropinon 04-10-2024 Corticotropin (P) [Mass/Vol] 37.5 pg/mL Normal 7.2-63.[address] [facility] Comment on above: Result Comment: INTE [...] not detected by this assay. Performed By: [facility] [address] [place] [address] Occupational Therapy Assist: Geronimo Gomez MD, PhD CLIA Number: [id number] Performed By: #### 2 141-0 #### DARNELL CAROLYNN MONCADA) ([id number]) [address] [place] [address] Cortisolon 04-10-2024 Cortisol [Mass/Vol] 9.7 ug/dL 2.5 - 20 .0 ug/dL [facility] Cortisol [Mass/Vol] 9.7 ug/dL Normal 2.5-20.0 [facility] Comment on above: Performed By: #### 2 143-6 #### IDANIA Alexandre ([id number]) [facility] ([facility]) [address] [place] [address] Cortisol [Mass/Vol]on 2023 Interpretation and review of laboratory results Normal [facility] DHEA-S [Mass/Vol]on 04-10-20 24 MATURITY-BASED REFER ENCE RANGES: PUBERTAL (CHELSEA) STAGE MALE FEMALE --- I 5 - 265 5 - 125 [...] contact their local laboratory for further information. [facility] DHEA-Sulfateon 04-10-2024 DHEA-S [Mass/Vol] 106 ug/dL 13 - 130 ug/dL [facility] Dehydroepiandrosterone sulfa meena 04-10-2024 DHEA-S [Mass/Vol] 106 ug/dL Normal 13-130 [facility] Comment on above: Order Comment: [facility] ITY-BASED REFERENCE RANGES: PUBERTAL (CHELSEA) STAGE MALE FEMALE [...] By: #### 2 191-5 #### IDANIA Alexandre ([id number]) [facility] ([facility]) [id number] [place] [address] Dexamethasoneon 04-10-2024 Dexamethasone [Mass/Vol] <50.[address] [facility] Comment on above: Result Comment: INTE [...] developed and its performance characteristics determined by [facility]. It has not been cleared or approved by the US Food and Drug Administration. This test was performed in a CLIA certified laboratory and is intended for clinical purposes. Performed By: [facility] [address] [place] [address] Occupational Therapy Assist: Geronimo Gomez MD, PhD CLIA Number: [id number] Performed By: #### 1 4062-4 #### [facility] ([id number]) [address] [place] [address] Free T4 [Mass/Vol]on 024 Interpretation and review of laboratory results Normal [facility] Thyroxine Free testi ng is performed using different testing methodology at [facility] than at other [facility]. Direct result comparisons should only be made within the same method. [facility] HbA1c (Bld) [Mass fraction]o n 04-10-2024 Average glucose Estimated from glycated hemoglobin (Bld) [Mass/Vol] 123 mg/dL Not Established [facility] Interpretation and review of laboratory results Abnormal [facility] Diagnosis of Diabetes-Adults Non-Diabetic: < or = 5.6% Increased risk for developing diabetes: 5.7-6.4% Diagnostic of diabetes: > or = 6.5% [facility] Average glucose Estimated from glycated hemoglobin (Bld) [Mass/Vol] 123 mg/dL Normal Not Established [facility] Comment on above: Order Comment: Diagn osis of Diabetes-Adults Non-Diabetic: < or = 5.6% Increased risk for developing diabetes: 5.7-6.4% Diagnostic of diabetes: > or = 6.5% Performed By: #### 4 548-4 #### IDANIA Alexandre ([id number]) [facility] ([facility]) [address] [place] [address] Hemoglobin A1Con 04-10-2024 HbA1c (Bld) [Mass fraction] 5.9 % High See comment [facility] Hemoglobin A1c/Hemoglobin.to magdiel 04-10-2024 HbA1c (Bld) [Mass fraction] 5.9 % High See comment [facility] Comment on above: Order Comment: Diagn osis of Diabetes-Adults Non-Diabetic: < or = 5.6% Increased risk for developing diabetes: 5.7-6.4% Diagnostic of diabetes: > or = 6.5% Performed By: #### 4 548-4 #### IDANIA Alexandre ([id number]) [facility] ([facility]) [address] [place], [place] [id number] METANEPHRINES PLASMAon 04-10 Annotation comment [Interpretation] Narrative See Note Normal [facility] Comment on above: Result Comment: INTE [...] developed and its performance characteristics determined by [facility]. It has not been cleared or approved by the US Food and Drug Administration. This test was performed in a CLIA certified laboratory and is intended for clinical purposes. Performed By: [facility] [address] [place] [address] Occupational Therapy Assist: Geronimo Gomez MD, PhD CLIA Number: [id number] Performed By: #### M ETPL #### [facility] ([facility]) ([id number]) [address] [place] [address] Metanephrines [Moles/Vol] <0.10 Normal 0.00-0.[address] [facility] Comment on above: Performed By: #### M ETPL #### [facility] ([facility]) ([id number]) [address] [place] [address] Normetanephrine Free [Moles/Vol] 0.51 nmol/L Normal 0.00-0.[address] [facility] Comment on above: Performed By: #### M ETPL #### [facility] ([facility]) ([id number]) [address] [place] [address] No Panel Informationon 04-10 Interpretation and review of laboratory results Normal [facility] Renal function 2000 panelon 04-10-2024 Albumin BCP dye [Mass/Vol] 4.3 g/dL 3.4 - 5.0 g/dL [facility] Anion gap [Moles/Vol] 14 mmol/L 10 - 2 0 mmol/L [facility] Calcium [Mass/Vol] 9.7 mg/dL 8.6 - 10. 6 mg/dL [facility] Chloride [Moles/Vol] 102 mmol/L 98 - 10 7 mmol/L [facility] CO2 [Moles/Vol] 28 mmol/L 21 - 32 mmol/L [facility] Creatinine [Mass/Vol] 0.67 mg/dL 0.50 - 1.05 mg/dL [facility] eGFR - PINF [facility] Comment on above: Calculations of huang mated GFR are performed using the 2020 CKD-EPI Study Refit equation without the race variable for the IDMS-Traceable creatinine methods. https://jasn.asnjournals.org/content/early/ASN.2020 246417 Glucose [Mass/Vol] 101 mg/dL High 74 - 99 mg/dL [facility] Interpretation and review of laboratory results Abnormal [facility] Phosphate [Mass/Vol] 3.9 mg/dL 2.5 - 4 .9 mg/dL [facility] Comment on above: The performance shanna acteristics of phosphorus testing in heparinized plasma have been validated by the individual laboratory site where testing is performed. Testing on heparinized plasma is not approved by the FDA; however, such approval is not necessary. Potassium [Moles/Vol] 4.4 mmol/L 3.5 - 5.3 mmol/L [facility] Sodium [Moles/Vol] 140 mmol/L 136 - 145 mmol/L [facility] Urea nitrogen [Mass/Vol] 12 mg/dL 6 - 23 mg/dL [facility] Albumin BCP dye [Mass/Vol] 4.3 g/dL Normal 3.4-5.[address] [facility] Comment on above: Performed By: #### 2 4362-6 #### IDANIA Alexandre ([id number]) [facility] ([facility]) [id number] [place] [address] Anion gap [Moles/Vol] 14 mmol/L Normal 10-20 [facility] Comment on above: Performed By: #### 2 4362-6 #### IDANIA Alexandre ([id number]) [facility] ([facility]) [id number] [place] [address] Calcium [Mass/Vol] 9.7 mg/dL Normal 8.6-10.6 [facility] Comment on above: Performed By: #### 2 4362-6 #### IDANIA Alexandre ([id number]) [facility] ([facility]) [address] [place] [address] Chloride [Moles/Vol] 102 mmol/L Normal 98-107 [facility] Comment on above: Performed By: #### 2 4362-6 #### IDANIA MASTERSON L ([id number]) [facility] ([facility]) [address] [place] [address] CO2 [Moles/Vol] 28 mmol/L Normal 21-32 [facility] Comment on above: Performed By: #### 2 4362-6 #### IDANIA Alexandre ([id number]) [facility] ([facility]) [address] [place] [address] Creatinine [Mass/Vol] 0.67 mg/dL Normal 0.50-1.05 [facility] Comment on above: Performed By: #### 2 4362-6 #### IDANIA lAexandre ([id number]) [facility] ([facility]) [address] [place] [address] GFR/1.73 sq M.predicted MDRD (S/P/Bld) [Vol rate/Area] mL/min/{1.73_m2} Normal >[address] [facility] Comment on above: Result Comment: Calc ulations of estimated GFR are performed using the 2020 CKD-EPI Study Refit equation without the race variable for the IDMS-Traceable creatinine methods. https://jasn.asnjournals.org/content//ASN.2020 081391 Performed By: #### 2 4362-6 #### IDANIA Alexandre ([id number]) [facility] ([facility]) [address] [place] [address] Glucose [Mass/Vol] 101 mg/dL High 74-99 [facility] Comment on above: Performed By: #### 2 4362-6 #### IDANIA Alexandre ([id number]) [facility] ([facility]) [address] [place] [address] Phosphate [Mass/Vol] 3.9 mg/dL Normal 2.5-4.9 [facility] Comment on above: Result Comment: The performance characteristics of phosphorus testing in heparinized plasma have been validated by the individual laboratory site where testing is performed. Testing on heparinized plasma is not approved by the FDA; however, such approval is not necessary. Performed By: #### 2 4362-6 #### IDANIA Alexandre ([id number]) [facility] ([facility]) [address] [place] [address] Potassium [Moles/Vol] 4.4 mmol/L Normal 3.5-5.3 [facility] Comment on above: Performed By: #### 2 4362-6 #### IDANIA Alexandre ([id number]) [facility] ([facility]) [address] [place] [address] Sodium [Moles/Vol] 140 mmol/L Normal 136-145 [facility] Comment on above: Performed By: #### 2 4362-6 #### IDANIA Alexandre ([id number]) [facility] ([facility]) [address] [place] [address] Urea nitrogen [Mass/Vol] 12 mg/dL Normal 6-[address] [facility] Comment on above: Performed By: #### 2 4362-6 #### IDANIA Alexandre ([id number]) [facility] ([facility]) [address] [place] [address] TPO Ab Qnon 04-10-2024 Interpretation and review of laboratory results Abnormal [facility] Negative: <=60 U/mL Positive: >60 U/mL [facility] TSH Qnon 04-10-2024 TSH testing is perfo rmed using different testing methodology at [facility] than at other [facility]. Direct result comparisons should only be made within the same method. [facility] Thyroid Peroxidase (TPO) Ant ibodyon 04-10-2024 TPO Ab Qn 275 [IU]/mL High NINF [facility] Thyroid Stimulating Hormoneo n 04-10-2024 TSH Qn 3.61 m[IU]/L [facility] Thyroperoxidase Abon 024 TPO Ab Qn 275 [IU]/mL High <=[address] [facility] Comment on above: Order Comment: Negat dorothy: <=60 U/mL Positive: >60 U/mL Performed By: #### 8 099-4 #### IDANIA Alexandre ([id number]) [facility] ([facility]) [address] [place] [address] Thyrotropinon 04-10-2024 TSH Qn 3.61 m[IU]/L Normal 0.44-3.[address] [facility] Comment on above: Order Comment: TSH t esting is performed using different testing methodology at [facility] than at other [facility]. Direct result comparisons should only be made within the same method. Performed By: #### 3 016-3 #### IDANIA Alexandre ([id number]) [facility] ([facility]) [address] [place] [address] Thyroxine, Freeon 04-10-2024 Free T4 [Mass/Vol] 1.46 ng/dL 0.78 - 1. 48 ng/dL [facility] Thyroxine.freeon 04-10-2024 Free T4 [Mass/Vol] 1.46 ng/dL Normal 0.78-1.48 [facility] Comment on above: Order Comment: Thyro xine Free testing is performed using different testing methodology at [facility] than at other [facility]. Direct result comparisons should only be made within the same method. Performed By: #### 3 024-7 #### IDANIA Alexandre ([id number]) [facility] ([facility]) [address] [place], [place] [id number] Laboratory - Hematology and Cell countson 02-14-2024 HbA1c (Bld) [Mass fraction] 5.9 % [facility] No Panel Informationon 02-13 [facility] Creatinine [Mass/volume] in UrineOrdered By: Lilliam Montejo on 10-19-2023 Creatinine (U) [Mass/Vol] 162.00 mg/dL [facility] Comment on above: No reference range e stablished HbA1c HPLC (Bld) [Mass fract ion]on 06-19-2024 HbA1c (Bld) [Mass fraction] 6.0 % [facility] MicroAlb Creat Ratio,Uon Creatinine, Urine (Random) 162.00 mg/dL Normal [facility] Comment on above: Result Comment: No r eference range established Performed By: #### U RMACRERAT #### [address] Microalbumin/Creatinine Ratio 4.3 mg/g Normal 0.0-30.0 [facility] Comment on above: Result Comment: 30-3 00 mg/g indicates an increased risk for diabetic nephropathy. Greater than 300 mg/g is consistent with clinical nephropathy. (Am. J. Kidney Disease 1994, 25:107) PERFORMED BY: [place] [address] PATHOLOGIST PULP MIXER OLAMIDE NICE M.D. Performed By: #### U RMACRERAT #### [address] Microalbumin [Mass/volume] i n UrineOrdered By: Lilliam Montejo on 10-19-2023 Albumin DL <= 20 mg/L (U) [Mass/Vol] 0.7 mg/dL Normal 0.0-1.8 [facility] Comment on above: Performed By: #### U RMACRERAT #### [address] No Panel Informationon 10-18 Bedside Glucose 98 [facility] Urine microalbumin/creatinin e mass ratioOrdered By: Lilliam Montejo on 10-19-2023 Albumin/Creatinine DL <= 20 mg/L (U) [Mass ratio] 4.3 mg/g 0.0-30.0 [facility] Comment on above: 30-300 mg/g indicate s an increased risk for diabetic nephropathy. Greater than 300 mg/g is consistent with clinical nephropathy. (Am. J. Kidney Disease 1994, 25:107) No Panel InformationOrdered By: Maricel Jones on 10-05-2023 Quick Strep (POC) [facility] US venous duplex UE LTon US venous duplex UE LT [facility] [address] Ultrasound Report Signed Patient: Bette Villafana MR#: [id number] 969 : 1955 Acct:[id number] Age/Sex: 68 / F ADM Date: 08/06/23 Loc: ER Room: Type: [facility] ER Attending Dr: Ordering Provider: Serg Boucher [...] Isacc Martinez M.D.08/08/2023 9:31 AM Dictation Location: [place] [address] Tech: Camila De Anda Transcribed By: MARIBETH 08/08/23930 Dictated By: Isacc Martinez MD 08/08/23930 Signed By: 08/08/23930 Normal [facility] Activated partial thrombopla stin time (aPTT) in platelet poor plasma by coagulation aOrdered By: Serg Boucher on 08-06-2023 aPTT Coag (PPP) [Time] 27.8 s 25.1-36.5 [facility] Comment on above: A hematocrit value g reater than 55% may lead to inaccurate results in coagulation testing. Patients having hematocrit values >55% require a special collection tube for coagulation studies. Please contact the laboratory at [phone] for redraw instructions. Automated basophil %Ordered By: Serg Boucher on 08-06-2023 Basophils/100 WBC (Bld) 1.1 % Normal . [facility] Comment on above: Performed By: #### B MP, CBC, CK, PTT, HS TROP, BNP, PT #### [address] Automated basophil countOrde red By: Serg Boucher on 08-06-2023 Basophils (Bld) [#/Vol] 0.1 10*3/uL Normal 0.0-0.2 [facility] Comment on above: Result Comment: PERF ORMED BY: [place] [address] PATHOLOGIST PULP MIXER OLAMIDE NICE M.D. Performed By: #### B MP, CBC, CK, PTT, HS TROP, BNP, PT #### [address] Automated blood monocyte cou ntOrdered By: Serg Boucher on 08-06-2023 Monocytes (Bld) [#/Vol] 0.8 10*3/uL Normal 0.0-0.8 [facility] Comment on above: Performed By: #### B MP, CBC, CK, PTT, HS TROP, BNP, PT #### [address] Automated eosinophil %Ordere d By: Serg Boucher on 08-06-2023 Eosinophils/100 WBC (Bld) 1.0 % Normal . [facility] Comment on above: Performed By: #### B MP, CBC, CK, PTT, HS TROP, BNP, PT #### [address] Automated eosinophil countOr dered By: Serg Boucher on 08-06-2023 Eosinophils (Bld) [#/Vol] 0.1 10*3/uL Normal 0.0-0.45 [facility] Comment on above: Performed By: #### B MP, CBC, CK, PTT, HS TROP, BNP, PT #### [address] Automated monocyte %Ordered By: Serg Boucher on 08-06-2023 Monocytes/100 WBC (Bld) 6.7 % Normal . [facility] Comment on above: Performed By: #### B MP, CBC, CK, PTT, HS TROP, BNP, PT #### [facility] [address] Automated neutrophil %Ordere d By: Serg Boucher on 08-06-2023 Neutrophils/100 WBC (Bld) 74.6 % Normal . [facility] Comment on above: Performed By: #### B MP, CBC, CK, PTT, HS TROP, BNP, PT #### [facility] [address] BNP ser/plasOrdered By: Delores Boucher on 08-06-2023 Natriuretic peptide B (Bld) [Mass/Vol] 38.0 pg/mL Normal 5-100 [facility] Comment on above: Result Comment: PERF ORMED BY: [place] [address] PATHOLOGIST PULP MIXER OLAMIDE NICE M.D. Performed By: #### B MP, CBC, CK, PTT, HS TROP, BNP, PT #### [address] Basic Metabolic Panelon 04-0 Creatinine Clr Calc Pharmacy 88.45 Normal [facility] Comment on above: Result Comment: PERF ORMED BY: [place] [address] PATHOLOGIST PULP MIXER OLAMIDE NICE M.D. Performed By: #### B MP, CBC, CK, PTT, HS TROP, BNP, PT #### [address] GFR/1.73 sq M.predicted MDRD (S/P/Bld) [Vol rate/Area] mL/min/{1.73_m2} Normal [facility] Comment on above: Performed By: #### B MP, CBC, CK, PTT, HS TROP, BNP, PT #### [address] Calcium [Mass/volume] in Ser um or PlasmaOrdered By: Serg Boucher on 08-06-2023 Calcium [Mass/Vol] 8.7 mg/dL Normal 8.6-10.3 [facility] Comment on above: Performed By: #### B MP, CBC, CK, PTT, HS TROP, BNP, PT #### [address] Carbon dioxide, total [Moles /volume] in Serum or PlasmaOrdered By: Serg Boucher on 08-06-2023 CO2 [Moles/Vol] 26.4 mmol/L Normal 21.0-31.0 [facility] Comment on above: Performed By: #### B MP, CBC, CK, PTT, HS TROP, BNP, PT #### [address] Chloride [Moles/volume] in S julieth or PlasmaOrdered By: Serg Boucher on 08-06-2023 Chloride [Moles/Vol] 106 mmol/L Normal 98-[address] [facility] Comment on above: Performed By: #### B MP, CBC, CK, PTT, HS TROP, BNP, PT #### [address] Complete Blood Count Auto Di ffon 08-06-2023 Mean Corpuscular HGB Conc 32.5 g/dL Normal 32.0-35.0 [facility] Comment on above: Performed By: #### B MP, CBC, CK, PTT, HS TROP, BNP, PT #### [facility] [address] [place] [address] [place] Monocytes/100 WBC (Bld) 15.33 % Normal 0.00-20.00 [facility] Comment on above: Performed By: #### B MP, CBC, CK, PTT, HS TROP, BNP, PT #### [address] NRBC% 0.1 /100{WBC} Normal 0-0.5 [facility] Comment on above: Performed By: #### B MP, CBC, CK, PTT, HS TROP, BNP, PT #### [address] [place] [address] [place] Creatine kinase [Enzymatic a ctivity/volume] in Serum or PlasmaOrdered By: Serg Boucher on 08-06-2023 CK [Catalytic activity/Vol] 91 U/L Normal 30-223 [facility] Comment on above: Performed By: #### B MP, CBC, CK, PTT, HS TROP, BNP, PT #### [facility] [address] [place] [address] [place] Creatinine [Mass/volume] in Serum or PlasmaOrdered By: Serg Boucher on 08-06-2023 Creatinine [Mass/Vol] 0.67 mg/dL Normal 0.60-1.20 [facility] Comment on above: Performed By: #### B MP, CBC, CK, PTT, HS TROP, BNP, PT #### [facility] [address] ECG 12 lead ECGon 08-06-2023 ECG 12 lead ECG [facility] [place] [address] [place] [address] Electrocardiograph Report Signed Patient: Bette Vlilafana MR#: [id number] 969 : 1955 Acct:[id number] Age/Sex: 68 / F ADM Date: 08/06/23 Loc: ER Room: Type: [facility] ER Attending Dr: Ordering Provider: Serg Boucher [...] Lateral leads Confirmed by Serg Boucher DO ([id number]) on 08/06/2023 2:48:28 PM Referred By: Electronically Signed By:Serg Boucher DO Transcribed By: MUS Signed By Serg Boucher DO 4 1448 Normal [facility] Erythrocyte distribution wid th [Ratio] by Automated countOrdered By: Serg Boucher on 08-06-2023 Erythrocyte distribution width (RBC) [Ratio] 14.6 % Normal 11.9-15.3 [facility] Comment on above: Performed By: #### B MP, CBC, CK, PTT, HS TROP, BNP, PT #### [facility] [address] Erythrocytes [#/volume] in B lood by Automated countOrdered By: Serg Boucher on 08-06-2023 RBC (Bld) [#/Vol] 3.68 10*6/uL Normal 3.60-5.00 [facility] Comment on above: Performed By: #### B MP, CBC, CK, PTT, HS TROP, BNP, PT #### [facility] [address] Glucose [Mass/volume] in Ser um or PlasmaOrdered By: Serg Boucher on 08-06-2023 Glucose [Mass/Vol] 111 mg/dL High 70-100 [facility] Comment on above: ADA recommended refe rence rangeRandom Glucose Reference Range is dependent on time and content of last meal. Glucose of more than 200 mg/dL in a nonstressed, ambulatory subject supports the diagnosis of Diabetes Mellitus. Result Comment: [place] Glucose Reference Range is dependent on time and content of last meal. Glucose of more than 200 mg/dL in a nonstressed, ambulatory subject supports the diagnosis of Diabetes Mellitus. ADA recommended reference range Performed By: #### B MP, CBC, CK, PTT, HS TROP, BNP, PT #### [facility] [address] [place] [id number] [place] Hematocrit [Volume Fraction] of Blood by Automated countOrdered By: Serg Boucher on 08-06-2023 Hematocrit (Bld) [Volume fraction] 33.0 % Low 34.0-46.4 [facility] Comment on above: Performed By: #### B MP, CBC, CK, PTT, HS TROP, BNP, PT #### [facility] [address] Hemoglobin [Mass/volume] in BloodOrdered By: Serg Boucher on 08-06-2023 Hemoglobin (Bld) [Mass/Vol] 10.7 g/dL Low 11.8-15.4 [facility] Comment on above: Performed By: #### B MP, CBC, CK, PTT, HS TROP, BNP, PT #### [facility] [address] INR in Platelet poor plasma by Coagulation assayOrdered By: Serg Boucher on 08-06-2023 INR Coag (PPP) [Relative time] 1.0 {INR} Normal [facility] Comment on above: INR Therapeutic Rang e [...] CBC, CK, PTT, HS TROP, BNP, PT ####[facility] [address] Leukocytes [#/volume] correc julian for nucleated erythrocytes in Blood by Automated counOrdered By: Serg Boucher on 08-06-2023 WBC corrected for nucl RBC Auto (Bld) [#/Vol] 11.6 10*3/uL 3.8-11.6 [facility] Leukocytes [#/volume] in Blo od by Automated countOrdered By: Serg Boucher on 08-06-2023 WBC (Bld) [#/Vol] 11.6 10*3/uL Normal 3.8-11.6 [facility] Comment on above: Performed By: #### B MP, CBC, CK, PTT, HS TROP, BNP, PT #### [address] Lymphocytes [#/volume] in Bl ood by Automated countOrdered By: Serg Boucher on 08-06-2023 Lymphocytes (Bld) [#/Vol] 1.9 10*3/uL Normal 1.00-4.8 [facility] Comment on above: Performed By: #### B MP, CBC, CK, PTT, HS TROP, BNP, PT #### [address] Lymphocytes/100 leukocytes i n Blood by Automated countOrdered By: Serg Boucher on 08-06-2023 Lymphocytes/100 WBC (Bld) 16.6 % Normal . [facility] Comment on above: Performed By: #### B MP, CBC, CK, PTT, HS TROP, BNP, PT #### [address] MCH [Entitic mass] by Automa julian countOrdered By: Serg Boucher on 08-06-2023 MCH (RBC) [Entitic mass] 29.2 pg Normal 24.7-34.3 [facility] Comment on above: Performed By: #### B MP, CBC, CK, PTT, HS TROP, BNP, PT #### [address] MCHC Auto (RBC) [Mass/Vol]Or dered By: Serg Boucher on 08-06-2023 MCHC (RBC) [Mass/Vol] 32.5 g/dL 32.0-35.0 [facility] MCV [Entitic volume] by Auto mated countOrdered By: Serg Boucher on 08-06-2023 MCV (RBC) [Entitic vol] 89.6 fL Normal 80-100 [facility] Comment on above: Performed By: #### B MP, CBC, CK, PTT, HS TROP, BNP, PT #### [address] Monocyte distribution width [Entitic volume] in Blood by AutomatedOrdered By: Serg Boucher on 08-06-2023 Monocyte distribution width Auto (Bld) [Entitic vol] 15.33 % 0.00-20.00 [facility] Neutrophils [#/volume] in Bl ood by Automated countOrdered By: Serg Boucher on 08-06-2023 Neutrophils (Bld) [#/Vol] 8.7 10*3/uL High 1.8-7.7 [facility] Comment on above: Performed By: #### B MP, CBC, CK, PTT, HS TROP, BNP, PT #### [facility] [address] No Panel InformationOrdered By: Serg Boucher on 08-06-2023 Estimated GFR (CKD-EPI) > 60.0 mL/Min [facility] Creatinine Clearance (Chem 88.45 [facility] Nucleated erythrocytes [Pres ence] in Blood by Automated countOrdered By: Serg Boucher on 08-06-2023 Nucleated RBC Auto Ql (Bld) 0.1 /100{WBC} 0-0.5 [facility] Partial Thromboplastin Timeo n 08-06-2023 aPTT Coag (Bld) [Time] 27.8 s Normal 25.1-36.5 [facility] Comment on above: Result Comment: A he matocrit value greater than 55% may lead to inaccurate results in coagulation testing. Patients having hematocrit values >55% require a special collection tube for coagulation studies. Please contact the laboratory at [phone] for redraw instructions. PERFORMED BY: [facility] [address] [place] [address] PATHOLOGIST PULP MIXER OLAMIDE NICE M.D. Performed By: #### B MP, CBC, CK, PTT, HS TROP, BNP, PT ####[facility] Cpz[address] Platelet mean volume [Entiti c volume] in Blood by Automated countOrdered By: Serg Boucher on 08-06-2023 Platelet mean volume (Bld) [Entitic vol] 7.7 fL Normal 6.3-10.7 [facility] Comment on above: Performed By: #### B MP, CBC, CK, PTT, HS TROP, BNP, PT #### [facility] [address] Platelets [#/volume] in Bloo d by Automated countOrdered By: Serg Boucher on 08-06-2023 Platelets (Bld) [#/Vol] 322 10*3/uL Normal 150-450 [facility] Comment on above: Performed By: #### B MP, CBC, CK, PTT, HS TROP, BNP, PT #### [facility] [address] Potassium [Moles/volume] in Serum or PlasmaOrdered By: Serg Boucher on 08-06-2023 Potassium [Moles/Vol] 3.9 mmol/L Normal 3.5-5.1 [facility] Comment on above: Performed By: #### B MP, CBC, CK, PTT, HS TROP, BNP, PT #### [facility] [address] Prothrombin time (PT)Ordered By: Serg Boucher on 08-06-2023 PT Coag (PPP) [Time] 11.4 s Normal 9.0-12.[address] [facility] Comment on above: A hematocrit value g reater than 55% may lead to inaccurate results in coagulation testing. Patients having hematocrit values >55% require a special collection tube for coagulation studies. Please contact the laboratory at [phone] for redraw instructions. Result Comment: A he matocrit value greater than 55% may lead to inaccurate results in coagulation testing. Patients having hematocrit values >55% require a special collection tube for coagulation studies. Please contact the laboratory at [phone] for redraw instructions. Performed By: #### B MP, CBC, CK, PTT, HS TROP, BNP, PT ####[facility] [address] Serum or plasma anion gap de terminationOrdered By: Serg Boucher on 08-06-2023 Anion gap [Moles/Vol] 7.5 mmol/L Normal 6.0-15.0 [facility] Comment on above: Performed By: #### B MP, CBC, CK, PTT, HS TROP, BNP, PT #### [address] Sodium [Moles/volume] in Ser um or PlasmaOrdered By: Serg Boucher on 08-06-2023 Sodium [Moles/Vol] 136 mmol/L Normal 136-145 [facility] Comment on above: Performed By: #### B MP, CBC, CK, PTT, HS TROP, BNP, PT #### [address] Troponin I High Sensitivityo n 08-06-2023 Troponin I High Sensitivity 3.0 pg/mL Normal 0.0-15.0 [facility] Comment on above: Result Comment: PERF ORMED BY: [place] [address] PATHOLOGIST PULP MIXER OLAMIDE NICE M.D. Performed By: #### B MP, CBC, CK, PTT, HS TROP, BNP, PT #### [address] Troponin I.cardiac [Mass/vol ume] in Serum or Plasma by Detection limit <= 0.01 ng/Ordered By: Serg Boucher on 08-06-2023 Troponin I.cardiac DL <= 0.01 ng/mL [Mass/Vol] 3.0 pg/mL 0.0-15.0 [facility] Urea nitrogen [Mass/volume] in Serum or PlasmaOrdered By: Serg Boucher on 08-06-2023 Urea nitrogen [Mass/Vol] 11 mg/dL Normal 7-25 [facility] Comment on above: Performed By: #### B MP, CBC, CK, PTT, HS TROP, BNP, PT #### [place] [address] [place] XR shoulder LT min 2V*on XR shoulder LT min 2V* [facility] Main [address] [address] XRay Report Signed Patient: Bette Villafana MR#: [id number] 969 : 1955 Acct:[id number] Age/Sex: 68 / F ADM Date: 08/06/23 Loc: ER Room: Type: [facility] ER Attending Dr: Copies to: Serg Boucher DO Ordering Provider: Serg Boucher DO Date of Service: 08/06/23 XR/XR chest 1V portable: Extremity Injury, Upper ([id number]) XR/XR shoulder LT min 2V*: Extremity Injury, [...] Flaherty Jr., D.O.08/06/2023 11:22 AM Dictation Location: [facility]15 Transcribed By: [facility] 08/06/23 1122 Dictated By: Dexter Flaherty Jr, DO 08/06/23 1120 Signed By: 08/06/23 1122 Normal [facility] Ambulatory Visit Summaryon 0 06-03-2023 [...] CELIA FALK, Mayito Chowdhury Where: General Surgery Nill/Said Diana Flanagan [facility] General Surgery Office/Clini c Noteon 06-03-2023 General Surgery Office/Clinic Note Chief Complaint s/p cholecystectomy by HPI Staff Bette is a 68 y.o. female here for s/p cholecystectomy done on 05/16/[address] Yang at [facility] Patient denies excessive bleeding/pain/discharge/ fever/chills. last colonoscopy at 64 y.o. [facility] History of Present Illness Bette Villafana is a 68-year-old female status post laparoscopic cholecystectomy performed by Dr. Yang. He is out of town. I am seeing the patient as a postop visit for him. Surgery was done on 05/16/2023 for cholecystitis where she was found to have [id number] gangrenous cholecystitis. During the procedure, a drain [...] female status post laparoscopic cholecystectomy performed at [facility] by Dr. Yang for gangrenous cholecystitis. 1. 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 We will provide a note for this. Portions of this record may have been created with voice recognition artificial intelligence software, specifically M[employer], [employer] and or [employer]. Substitutions may have occurred voice recognition and artificial intelligence software. Documentation services were performed after patient or guardian consented to allow [address] to record this visit. 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 JONAH: [...] Given Postpone due to refusal SARS-CoV-2 (COVID-19) mRNAMUL.[id number] 05/11/2022 Recorded SARS-CoV-2 (COVID-19) mRNA BNT-162b2 vax 04/02/2021 Recorded SARS-CoV-2 (COVID-19) mRNA BNT-162b2 vax 09/15/2020 Recorded SARS-CoV-2 (COVID-19) mRNA BNT-162b2 vax 08/25/2020 Recorded Normal [facility] Comment on above: Result Comment: Elec tronically Signed By: Emiliano Lagos MD\.br\Date and Time Signed: 06/03/23 09:25 EST\.br\Electronically Co-Signed By: Tiana Drake\.br\Date and Time Co-Signed: 06/03/23 09:08 EST Provider Letteron 06-03-2023 Provider Letter (Inserted Image. Mira ble to display) June 03, 2023 BETTE VILLA[address]NA [address] [place] [address] : 1955 To Whom It May Concern, Please excuse above patient from work. Date of Illness: From: 05/16/2023 To: 06/18/2023 May Return to Work On: 06/18/2023 Restrictions: No restrictions Comments: _ Sincerely, Emiliano Lagos MD [facility] General Surgery [facility] Pathology Noteon 05-26-2023 Pathology Note [id number]#1.00TIF F [facility] Consultation Noteon 05-18-19 24 Consultation Note [id number]#1.00TIF F [facility] Consultation Note [id number]#1.00TIFF [facility] Consultation Note [id number]#1.00TIF F [facility] Lab Reportson 05-18-2023 Lab Reports [id number]#1.00TIF F [facility] Lab Reports [id number]#1.00TIFF [facility] Lab Reports [id number]#1.00TIFF [facility] Operative Reporton 4 Operative Report [id number]#1.00TIF F [facility] Laboratory - Chemistry and C hemistry - challengeon 05-17-2023 Albumin [Mass/Vol] 2.5 g/dL [facility] ALP [Catalytic activity/Vol] 76 U/L [facility] ALT [Catalytic activity/Vol] 32 U/L [facility] AST [Catalytic activity/Vol] 32 U/L [facility] Bilirubin [Mass/Vol] 0.7 mg/dL [facility] Calcium [Mass/Vol] 8.2 mg/dL [facility] Chloride [Moles/Vol] 97 mmol/L [facility] CO2 [Moles/Vol] 31 mmol/L [facility] Creatinine [Mass/Vol] 0.70 mg/dL [facility] GFR/1.73 sq M.predicted MDRD (S/P/Bld) [Vol rate/Area] mL/min/{1.73_m2} [facility] Glucose [Mass/Vol] 148 mg/dL [facility] Potassium [Moles/Vol] 4.3 mmol/L [facility] Protein [Mass/Vol] 6.2 g/dL [facility] Sodium [Moles/Vol] 134 mmol/L [facility] Urea nitrogen [Mass/Vol] 4.0 mg/dL [facility] No Panel Informationon 05-17 Estimated GFR (Non- > 60 mL/min [facility] Claudio 05-16-2023 L Specimen: [id number] Received: 05/18/23 Status: SOUT Req Num: [id number] Spec Type: Surgical Subm Dr: Mayito Yang MD FACS Tissues: A Gallbladder (GALLBLADDER/CONTENTS) Procedures: HE, Gross/Micro L3 Age/ Patient Sex Location Account Attending Physician Bette Villafana 68/F LABELL [id number] Mayito Yang MD FACS SPEC NUM: [id number] RECD: 05/18/23 STATUS: SOUT REQ NUM: [id number] BOONE: 05/16/[address]: Mayito Yang MD FACS ENTERED: 05/18/[address]: Nery Ortiz SPEC TYPE: Surgical DEPT: STACIA PATTEN ORDERED: [...] x 2.5 cm granular gary-yellow stone present.. Linen Folder sections are submitted in 1 cassette as follows: Specimen: [id number] Received: 05/18/23 Status: NEDA Emjoy Num: [id number] Spec Type: Surgical Subm Dr: Mayito Yang MD FACS Tissues: A Gallbladder (GALLBLADDER/CONTENTS) Procedures: CHANDLER, Gross/Micro L3 Patient: Bette Villafana [id number] (Continued) Specimen: [id number] Received: 05/18/23 (Continued) Gross Description (Continued) Signed (signature on file) Hoda Fall MD 05/20/23 0942 Specimen: [id number] Received: 05/18/23 Status: NEDA Saavedra Num: [id number] Spec Type: Surgical Subm Dr: Mayito Yang MD FACS Tissues: A Gallbladder (GALLBLADDER/CONTENTS) Procedures: CHANDLER Gross/Micro L3 Patient: Bette Villafana [id number] (Continued) Specimen: [id number] Received: 05/18/23 (Continued) Gross Description (Continued) A1 - Cystic duct margin, and senior human resources representative body, and fundus section CPT Codes 20524 Specimen: [id number] Received: 05/18/23 Status: NEDA Saavedra Num: [id number] Spec Type: Surgical Subm Dr: Mayito Yang MD FACS Tissues: A Gallbladder (GALLBLADDER/CONTENTS) Procedures: CHANDLER, Gross/Iván L3 Patient: Bette Villafana [id number] (Continued) Signed (signature on file) Hoda Fall MD 05/20/23 0942 Normal [facility] - Chemistry and C hemistry - challengeon 05-16-2023 Albumin [Mass/Vol] 3.0 g/dL [facility] ALP [Catalytic activity/Vol] 78 U/L [facility] ALT [Catalytic activity/Vol] 21 U/L [facility] AST [Catalytic activity/Vol] 11 U/L [facility] Bilirubin [Mass/Vol] 1.0 mg/dL [facility] Calcium [Mass/Vol] 8.7 mg/dL [facility] Chloride [Moles/Vol] 99 mmol/L [facility] CO2 [Moles/Vol] 28.5 mmol/L [facility] Creatinine [Mass/Vol] 0.79 mg/dL [facility] GFR/1.73 sq M.predicted MDRD (S/P/Bld) [Vol rate/Area] mL/min/{1.73_m2} [facility] Glucose [Mass/Vol] 134 mg/dL [facility] Potassium [Moles/Vol] 3.8 mmol/L [facility] Protein [Mass/Vol] 6.8 g/dL [facility] Sodium [Moles/Vol] 134 mmol/L [facility] Urea nitrogen [Mass/Vol] 7.0 mg/dL [facility] No Panel Informationon 05-16 Estimated GFR (Non- > 60 mL/min [facility] GLYCOHEMOGLOBIN A1Con 2022 ADA RECOMMENDATION SEE BELOW Normal [facility] Comment on above: Result Comment: ADA RECOMMENDED LIMIT 4.0 - 6.0 ADA THERAPEUTIC TARGET < 7.0 ACTION SUGGESTED > 7.0 Performed By: #### P TT, PT #### [facility] [address] [place] [address] Dr. Vivian Fall Glucose [Mass/Vol] 120 mg/dL Normal [facility] Comment on above: Performed By: #### P TT, PT #### [facility] [address] [address] [address] Vivian Fall HbA1c (Bld) [Mass fraction] 5.8 % Normal 4.5-6.2 [facility] Comment on above: Performed By: #### P TT, PT #### [facility] [address] [address] [address] Vivian Fall LIPID PROFILEon 09-02-2022 CHOL-HDL RATIO NORM SEE BELOW Normal [facility] Comment on above: Result Comment: 3.3 - 4.4 LOW RISK 4.4 - 7.1 AVERAGE RISK 7.1 - 11.0 MODERATE RISK >11.0 HIGH RISK Performed By: #### P TT, PT #### [facility] [address] [place] [address] Dr. Vivian Fall Cholesterol [Mass/Vol] 171 mg/dL Normal <=200 Th [facility] Comment on above: Performed By: #### P TT, PT #### [facility] [address] [address] [address] Vivian Fall Cholesterol in HDL [Mass/Vol] 52 mg/dL Normal 40-60 [facility] Comment on above: Performed By: #### P TT, PT #### [facility] [address] [address] [address] Vivian Fall Cholesterol in LDL [Mass/Vol] 89.8 mg/dL Normal [facility] Comment on above: Performed By: #### P TT, PT #### [facility] [address] [place] [address] Dr. Vivian Fall Cholesterol.total/Jeannie sterol in HDL [Mass ratio] 3.3 {ratio} Normal [facility] Comment on above: Performed By: #### P TT, PT #### [facility] [address] [place] [address] Dr. Vivian Fall HDL NORMAL > or = 60 mg/dl - LO W CARDIOVASCULAR RISK <40 mg/dl - HIGH CARDIOVASCULAR RISK Normal [facility] Comment on above: Performed By: #### P TT, PT #### [facility] [address] [place] [address] Dr. Vivian Fall LDL CALC NORMAL SEE BELOW Normal [facility] Comment on above: Result Comment: <100 mg/dl OPTIMAL 100 - 129 mg/dl NEAR OR ABOVE OPTIMAL 130 - 159 mg/dl BORDERLINE HIGH 160 - 189 mg/dl HIGH >190 mg/dl VERY HIGH Performed By: #### P TT, PT #### [facility] [address] [place] [address] Dr. Vivian Fall Triglyceride [Mass/Vol] 146 mg/dL Normal <=150 T [facility] Comment on above: Performed By: #### P TT, PT #### [facility] [address] [address] [address] Vivian Fall VLDL CALC 29.2 mg/dL Normal [facility] Comment on above: Performed By: #### P TT, PT #### [facility] [address] [place] [address] Dr. Vivian Fall PROF 14(COMP METB)on 023 Albumin [Mass/Vol] 3.6 g/dL Normal 3.4-5.0 [facility] Comment on above: Performed By: #### C MP, LIPID #### [facility] [address] [place] [address] Dr. Vivian Fall Albumin/Globulin [Mass ratio] 0.9 {ratio} Normal [facility] Comment on above: Performed By: #### C MP, LIPID #### [facility] [address] [place] [address] Dr. Vivian Fall ALP [Catalytic activity/Vol] 81 U/L Normal 46-116 [facility] Comment on above: Performed By: #### C MP, LIPID #### [facility] [address] [place] [address] Dr. Vivian Fall ALT [Catalytic activity/Vol] 22 U/L Normal 14-59 [facility] Comment on above: Performed By: #### C MP, LIPID #### [facility] [address] [place] [address] Dr. Vivian Fall Anion gap [Moles/Vol] 12.5 mmol/L Normal [facility] Comment on above: Performed By: #### C MP, LIPID #### [facility] [address] [place] [address] Dr. Vivian Fall AST [Catalytic activity/Vol] 15 U/L Normal 15-37 [facility] Comment on above: Performed By: #### C MP, LIPID #### [facility] [address] [place] [address] Dr. Vivian Fall Bilirubin [Mass/Vol] 0.6 mg/dL Normal 0.2-1.0 [facility] Comment on above: Performed By: #### C MP, LIPID #### [facility] [address] [place] [address] Dr. Vivian Fall Calcium [Mass/Vol] 9.1 mg/dL Normal 8.5-10.1 [facility] Comment on above: Performed By: #### C MP, LIPID #### [facility] [address] [address] [address] Vivian Fall Chloride [Moles/Vol] 103 mmol/L Normal 98-107 [facility] Comment on above: Performed By: #### C MP, LIPID #### [facility] [address] [address] [address] Vivian Fall CO2 [Moles/Vol] 27.6 mmol/L Normal 21.0-32.0 [facility] Comment on above: Performed By: #### C MP, LIPID #### [facility] [address] [place] [address] Dr. Vivian Fall Creatinine [Mass/Vol] 0.78 mg/dL Normal 0.55-1.02 [facility] Comment on above: Performed By: #### C MP, LIPID #### [facility] [address] [place] [address] Dr. Vivian Fall EGFR-AF SENEGALESE >60 Normal >=60 [facility] Comment on above: Performed By: #### C MP, LIPID #### [facility] [address] [place] [address] Dr. Vivian Fall EGFR-NON AF SENEGALESE >60 Normal >=60 [facility] Comment on above: Performed By: #### C MP, LIPID #### [facility] [address] [place] [address] Dr. Vivian Fall Globulin (S) [Mass/Vol] 3.8 g/dL Normal T [facility] Comment on above: Performed By: #### C MP, LIPID #### [facility] [address] [place] [address] Dr. Vivian Fall Glucose [Mass/Vol] 105 mg/dL Normal 74-106 [facility] Comment on above: Performed By: #### C MP, LIPID #### [facility] [address] [place] [address] Dr. Vivian Fall Potassium [Moles/Vol] 4.1 mmol/L Normal 3.5-5.1 [facility] Comment on above: Performed By: #### C MP, LIPID #### [facility] [address] [place] [address] Dr. Vivian Fall Protein [Mass/Vol] 7.4 g/dL Normal 6.4-8.2 [facility] Comment on above: Performed By: #### C MP, LIPID #### [facility] [address] [address] [address] Vivian Fall Sodium [Moles/Vol] 139 mmol/L Normal 136-145 [facility] Comment on above: Performed By: #### C MP, LIPID #### [facility] [address] [place] [address] Dr. Vivian Fall Urea nitrogen [Mass/Vol] 11.0 mg/dL Normal 7.0-18.0 [facility] Comment on above: Performed By: #### C MP, LIPID #### [facility] [address] [place] [address] Dr. Vivian Fall Urea nitrogen/Creatinine [Mass ratio] 14.1 mg/mg Normal [facility] Comment on above: Performed By: #### C MP, LIPID #### [facility] [address] [place] [address] Dr. Vivian Fall VITAMIN B12on 09-02-2022 Cobalamin (Vitamin B12) [Mass/Vol] 373.0 pg/mL Normal 193.0-986.0 [facility] Comment on above: Performed By: #### P TT, PT #### [facility] [address] [place] [address] Dr. Vivian Fall VITAMIN D 25 OHon 09-02-2022 VIT D 25-OH 16.1 ng/mL Normal [facility] Comment on above: Performed By: #### P TT, PT #### [facility] [address] [place] [address] Dr. Vivian Fall VIT D RANGES SEE BELOW Normal [facility] Comment on above: Result Comment: <20 ng/mL Vit D deficient 20 - <30 ng/mL Vit D insufficient 30 - 100 ng/mL Vit D sufficient >100 ng/mL Potential Toxicity Performed By: #### P TT, PT #### [facility] [address] [place] [address] Dr. Vivian Fall BNPon 06-29-2022 Natriuretic peptide B (Bld) [Mass/Vol] 223.0 pg/mL Normal <=900.0 [facility] Comment on above: Performed By: #### C MP, HSTROPN, BNP #### [facility] [address] [place] [address] Dr. Vivian Fall CBC AUTO DIFFon 06-29-2022 BASO # 0.0 103/ul Normal 0.0-0.1 [facility] Comment on above: Performed By: #### C BC #### [facility] [address] [place] [address] Dr. Vivian Fall Basophils/100 WBC (Bld) 0.2 % Normal 0.2-2.0 [facility] Comment on above: Performed By: #### C BC #### [facility] [address] [place] [address] Dr. Vivian Fall EO # 0.0 103/ul Normal 0.0-0.7 [facility] Comment on above: Performed By: #### C BC #### [facility] [address] [place] [address] Dr. Vivian Fall Eosinophils/100 WBC (Bld) 0.0 % Critically low 0.9-7.0 [facility] Comment on above: Performed By: #### C BC #### [facility] [address] [place] [address] Dr. Vivian Fall Erythrocyte distribution width (RBC) [Ratio] 13.0 % Normal 11.0-15.0 [facility] Comment on above: Performed By: #### C BC #### [facility] [address] [place] [address] Dr. Vivian Fall Hematocrit (Bld) [Volume fraction] 36.2 % Normal 36.0-48.0 [facility] Comment on above: Performed By: #### C BC #### [facility] [address] [place] [address] Dr. Vivian Fall Hemoglobin (Bld) [Mass/Vol] 12.2 g/dL Normal 12.0-16.0 [facility] Comment on above: Performed By: #### C BC #### [facility] [address] [place] [address] Dr. Vivian Fall IG # 0.08 10e3/ul Critically high 0.00-0.03 [facility] Comment on above: Performed By: #### C BC #### [facility] [address] [place] [address] Dr. Vivian Fall IG % 1.3 % Critically high 0.0-0.5 [facility] Comment on above: Performed By: #### C BC #### [facility] [address] [place] [address] Dr. Vivian Fall LYMPH # 0.3 103/ul Critically low 1.2-3.8 [facility] Comment on above: Performed By: #### C BC #### [facility] [address] [place] [address] Dr. Vivian Fall Lymphocytes/100 WBC (Bld) 4.2 % Critically low 20.5-60.0 [facility] Comment on above: Performed By: #### C BC #### [facility] [address] [place] [address] Dr. Vivian Fall MANUAL DIFF REQ NO Normal [facility] Comment on above: Performed By: #### C BC #### [facility] [address] [place] [address] Dr. Vivian Fall MCH (RBC) [Entitic mass] 29.2 pg Normal 26.7-34.0 [facility] Comment on above: Performed By: #### C BC #### [facility] [address] [place] [address] Dr. Vivian Fall MCHC (RBC) [Mass/Vol] 33.7 g/dL Normal 29.9-35.2 [facility] Comment on above: Performed By: #### C BC #### [facility] [address] [place] [address] Dr. Vivian Fall MCV (RBC) [Entitic vol] 86.6 fL Normal 81.0-99.0 [facility] Comment on above: Performed By: #### C BC #### [facility] [address] [place] [address] Dr. Vivian Fall MONO # 0.2 103/ul Critically low 0.3-0.8 [facility] Comment on above: Performed By: #### C BC #### [facility] [address] [place] [address] Dr. Vivian Fall Monocytes/100 WBC (Bld) 3.5 % Normal 1.7-12.0 [facility] Comment on above: Performed By: #### C BC #### [facility] [address] [place] [address] Dr. Vivian Fall NEUT # 5.7 103/ul Normal 1.4-6.5 [facility] Comment on above: Performed By: #### C BC #### [facility] [address] [place] [address] Dr. Vivian Fall Neutrophils/100 WBC (Bld) 90.8 % Critically high 43.0-75.0 [facility] Comment on above: Performed By: #### C BC #### [facility] [address] [place] [address] Dr. Vivian Fall Platelet mean volume (Bld) [Entitic vol] 9.8 fL Normal 9.5-13.5 [facility] Comment on above: Performed By: #### C BC #### [facility] [address] [place] [address] Dr. Vivian Fall PLT 224 103/ul Normal 150-450 [facility] Comment on above: Performed By: #### C BC #### [facility] [address] [place] [address] Dr. Vivian Fall RBC 4.18 106/ul Critically low 4.20-5.40 [facility] Comment on above: Performed By: #### C BC #### [facility] [address] [place] [address] Dr. Vivian Fall WBC 6.3 103/ul Normal 4.0-11.0 [facility] Comment on above: Performed By: #### C BC #### [facility] [address] [place] [address] ABD/PELVIS WO CONon [...] ANASTACIO BARBOZA Date: 2022-06-29 11:26 Normal [facility] CULTURE BLOODon 06-29-2022 Microscopic examination of blood, culture Culture Observations: NO GROWTH AT 5 DAYS. Isolate 1 BC_BA_NA Normal [facility] Comment on above: Performed By: #### P TT, PT #### [facility] [address] [place] [address] Dr. Vivian Fall Microscopic examination of blood, culture Culture Observations: NO GROWTH AT 5 DAYS. Isolate 1 BC_BA_NA Normal [facility] Comment on above: Performed By: #### P TT, PT #### [facility] [address] [address] [address] Vivian Fall CULTURE URINEon 06-29-2022 CULTURE URINE Culture Observations : NO GROWTH. Normal [facility] Comment on above: Performed By: #### P TT, PT #### [facility] [address] [place] [address] Dr. Vivian Fall [facility] SARS-CoV-2 (COVID-19) RNA JONY+probe Ql (Unsp spec) Not detected Normal NOT DETECTED [facility] Comment on above: Result Comment: When [...] for this test is supported by the [place] of Health and Human Service's declaration that [...] longer be used). Performed By: #### C VDTB #### [facility] [address] [place] [address] Dr. Vivian Fall ER URINE PROFILEon 3 Bilirubin Ql (U) SMALL Abnormal NEGATIVE [facility] Comment on above: Performed By: #### P TT, PT #### [facility] [address] [place] [address] Dr. Vivian Fall Clarity (U) CLEAR Normal CLEAR [facility] Comment on above: Performed By: #### P TT, PT #### [facility] [address] [place] [address] Dr. Vivian Fall Color (U) DK. YELLOW Normal YELLOW [facility] Comment on above: Performed By: #### P TT, PT #### [facility] [address] [place] [address] Dr. Vivian Fall ERUAHD A micrscopic examina tion will be performed if indicated. Normal [facility] Comment on above: Performed By: #### P TT, PT #### [facility] [address] [place] [address] Dr. Vivian Fall Glucose Ql (U) Negative Normal NEGATIVE [facility] Comment on above: Performed By: #### P TT, PT #### [facility] [address] [place] [address] Dr. Vivian Fall Hemoglobin Ql (U) TRACE-INTACT Abnormal NEGATIVE [facility] Comment on above: Performed By: #### P TT, PT #### [facility] [address] [place] [address] Dr. Vivian Fall Ketones Ql (U) Negative Normal NEGATIVE [facility] Comment on above: Performed By: #### P TT, PT #### [facility] [address] [place] [address] Dr. Vivian Fall LEUKOCYTES Negative Normal NEGATIVE [facility] Comment on above: Performed By: #### P TT, PT #### [facility] [address] [place] [address] Dr. Vivian Fall Nitrite Ql (U) Negative Normal NEGATIVE [facility] [place] Comment on above: Performed By: #### P TT, PT #### [facility] [address] [place] [address] Dr. Vivian Fall pH (U) 6.0 [pH] Normal 5-9 [facility] Comment on above: Performed By: #### P TT, PT #### [facility] [address] [place] [address] Dr. Vivian Fall Protein (U) [Mass/Vol] 100 mg/dL Abnormal NEGAT DOROTHY/ TRACE [facility] Comment on above: Performed By: #### P TT, PT #### [facility] [address] [place] [address] Dr. Vivian Fall SPEC GRAVITY >=1.030 Abnormal 1.005-<=1.02 5 [facility] Comment on above: Performed By: #### P TT, PT #### [facility] [address] [place] [address] Dr. Vivian Fall UR MICRO IND INDICATED Normal [facility] Comment on above: Performed By: #### P TT, PT #### [facility] [address] [place] [address] Dr. Vivian Fall Urobilinogen Qn (U) 1.0 {Nia'U}/dL Normal 0.2 - 1. 0 [facility] Comment on above: Performed By: #### P TT, PT #### [facility] [address] [place] [address] Dr. Vivian Fall LACTATE/LACTIC ACIDon 2022 Lactate [Moles/Vol] 1.3 mmol/L Normal 0.4-1.9 [facility] Comment on above: Performed By: #### L ACT #### [facility] [address] [place] [address] Dr. Vivian Fall Lactate [Moles/Vol] 3.1 mmol/L Critically high 0.4-1.9 [facility] Comment on above: Performed By: #### L ACT #### [facility] [address] [place] [address] Dr. Vivian Fall LIPASEon 06-29-2022 Lipase [Catalytic activity/Vol] 88.0 U/L Normal 73.0-393.0 [facility] Comment on above: Performed By: #### L IPA #### [facility] [address] [place] [address] Dr. Vivian Fall PROF 14(COMP METB)on 023 Albumin [Mass/Vol] 3.4 g/dL Normal 3.4-5.0 [facility] Comment on above: Performed By: #### C MP, HSTROPN, BNP #### [facility] [address] [place] [address] Dr. Vivian Fall Albumin/Globulin [Mass ratio] 0.9 {ratio} Normal [facility] Comment on above: Performed By: #### C MP, HSTROPN, BNP #### [facility] [address] [place] [address] Dr. Vivian Fall ALP [Catalytic activity/Vol] 145 U/L Critically high 46-116 [facility] Comment on above: Performed By: #### C MP, HSTROPN, BNP #### [facility] [address] [place] [address] Dr. Vivian Fall ALT [Catalytic activity/Vol] 454 U/L Critically high 14-59 [facility] Comment on above: Performed By: #### C MP, HSTROPN, BNP #### [facility] [address] [place] [address] Dr. Vivian Fall Anion gap [Moles/Vol] 15.7 mmol/L Normal [facility] Comment on above: Performed By: #### C MP, HSTROPN, BNP #### [facility] [address] [place] [address] Dr. Vivian Fall AST [Catalytic activity/Vol] 404 U/L Critically high 15-37 [facility] Comment on above: Performed By: #### C MP, HSTROPN, BNP #### [facility] [address] [place] [address] Dr. Vivian Fall Bilirubin [Mass/Vol] 1.4 mg/dL Critically high 0.2-1.0 [facility] Comment on above: Performed By: #### C MP, HSTROPN, BNP #### [facility] [address] [place] [address] Dr. Vivian Fall Calcium [Mass/Vol] 8.7 mg/dL Normal 8.5-10.1 [facility] Comment on above: Performed By: #### C MP, HSTROPN, BNP #### [facility] [address] [place] [address] Dr. Vivian Fall Chloride [Moles/Vol] 94 mmol/L Critically low 98-107 [facility] Comment on above: Performed By: #### C MP, HSTROPN, BNP #### [facility] [address] [place] [address] Dr. Vivian Fall CO2 [Moles/Vol] 22.0 mmol/L Normal 21.0-32.0 [facility] Comment on above: Performed By: #### C MP, HSTROPN, BNP #### [facility] [address] [place] [address] Dr. Vivian Fall Creatinine [Mass/Vol] 1.30 mg/dL Critically high 0.55-1.02 [facility] Comment on above: Performed By: #### C MP, HSTROPN, BNP #### [facility] [address] [place] [address] Dr. Vivian Fall EGFR-AF SENEGALESE 50 mL/min/1.73m2 Critically low >=60 [facility] Comment on above: Performed By: #### C MP, HSTROPN, BNP #### [facility] [address] [place] [address] Dr. Vivian Fall EGFR-NON AF SENEGALESE 41 mL/min/1.73m2 Critically low >=60 [facility] Comment on above: Performed By: #### C MP, HSTROPN, BNP #### [facility] [address] [place] [address] Dr. iVvian Fall Globulin (S) [Mass/Vol] 3.7 g/dL Normal [facility] Comment on above: Performed By: #### C MP, HSTROPN, BNP #### [facility] [address] [address] [address] Vivian Fall Glucose [Mass/Vol] 166 mg/dL Critically high 74-106 [facility] Comment on above: Performed By: #### C MP, HSTROPN, BNP #### [facility] [address] [place] [address] Dr. Vivian Fall Potassium [Moles/Vol] 3.7 mmol/L Normal 3.5-5.1 [facility] Comment on above: Performed By: #### C MP, HSTROPN, BNP #### [facility] [address] [place] [address] Dr. Vivian Fall Protein [Mass/Vol] 7.1 g/dL Normal 6.4-8.2 [facility] Comment on above: Performed By: #### C MP, HSTROPN, BNP #### [facility] [address] [address] [address] Vivian Fall Sodium [Moles/Vol] 128 mmol/L Critically low 136-145 [facility] Comment on above: Performed By: #### C MP, HSTROPN, BNP #### [facility] [address] [place] [address] Dr. Vivian Fall Urea nitrogen [Mass/Vol] 15.0 mg/dL Normal 7.0-18.0 [facility] Comment on above: Performed By: #### C MP, HSTROPN, BNP #### [facility] [address] [place] [address] Dr. Vivian Fall Urea nitrogen/Creatinine [Mass ratio] 11.5 mg/mg Normal [facility] Comment on above: Performed By: #### C MP, HSTROPN, BNP #### [facility] [address] [address] [address] Vivian Fall PROTIMEon 06-29-2022 INR Coag (PPP) [Relative time] 1.08 {INR} Normal [facility] Comment on above: Performed By: #### P TT, PT #### [facility] [address] [place] [address] Dr. Vivian Fall INR GUIDELINES SEE BELOW Normal [facility] Comment on above: Result Comment: DEEJAY RED INR: 2.0 - 3.0 CONDITIONS NOT LISTED BELOW 2.5 - 3.5 FOR PROSTHETIC HEART VALVE REPLACEMENT 2.5 - 3.5 RECURRENT THROMBOSIS Performed By: #### P TT, PT #### [facility] [address] [place] [address] Dr. Vivian Fall PT Coag (PPP) [Time] 11.4 s Normal 9.0-11.6 [facility] Comment on above: Performed By: #### P TT, PT #### [facility] [address] [place] [address] Dr. Vivian Fall PTTon 06-29-2022 aPTT Coag (Bld) [Time] 32.2 s Normal 22.3-36.2 [facility] Comment on above: Performed By: #### P TT, PT #### [facility] [address] [place] [address] Dr. Vivian Fall TROPONIN, HIGH SENSITIVITYon 06-29-2022 HSTROP 5.8 pg/mL Normal 4.0-51.3 [facility] Comment on above: Result Comment: CUT- OFF POINTS HAVE BEEN ESTABLISHED BASED ON THE FOURTH UNIVERSAL DEFINITIONS OF MYOCARDIAL INFARCTION. THE UPPER REFERENCE LIMIT (URL) OF TROPONIN, DEFINED THE 99TH PERCENTILE OF cTnI DISTRIBUTION IN A REFERENCE POPULATION, HAS BEEN CONFIRMED THE DECISION THRESHOLD FOR [place] DIAGNOSIS. Performed By: #### C MP, HSTROPN, BNP #### [facility] [address] [place] [address] Dr. Vivian Fall URINE MICROSCOPIC ONLYon BACTERIA SMALL Abnormal NONE SEEN [facility] Comment on above: Performed By: #### P TT, PT #### [facility] [address] [place] [address] Dr. Vivian Fall Bacteria identified Cx Nom (U) INDICATED Normal [facility] Comment on above: Performed By: #### P TT, PT #### [facility] [address] [address] [address] Vivian Fall CAST NONE SEEN Normal NONE SEEN [facility] Comment on above: Performed By: #### P TT, PT #### [facility] [address] [place] [address] Dr. Vivian Fall Crystals LM Nom (Urine sed) NONE SEEN Normal NONE SEEN [facility] Comment on above: Performed By: #### P TT, PT #### [facility] [address] [place] [address] Dr. Vivian Fall Epithelial cells LM Ql (Urine sed) FEW Abnormal NONE SEEN /RARE [facility] Comment on above: Performed By: #### P TT, PT #### [facility] [address] [place] [address] Dr. Vivian Fall MUCOUS SMALL Abnormal NONE SEEN [facility] Comment on above: Performed By: #### P TT, PT #### [facility] [address] [place] [address] Dr. Vivian Fall RBC 0-2 Normal 0-2 [facility] Comment on above: Performed By: #### P TT, PT #### [facility] [address] [place] [address] Dr. Vivian Fall WBC 0-2 Abnormal NONE SEEN [facility] Comment on above: Performed By: #### P TT, PT #### [facility] [address] [place] [address] Dr. Vivian Fall XR CHEST 1 Von 06-29-2022 XR CHEST 1 V EXAM: XR CHEST 1 V HISTORY: Altered mental status COMPARISON: None. TECHNIQUE: Frontal view of the chest. FINDINGS: No focal consolidations or pleural effusions. Cardiomegaly. Thoracic spine spondylosis. IMPRESSION: No acute disease. Cardiomegaly. Electronically authenticated by: ZEYAD SOFIA Date: 2022-06-29 10:38 Normal [facility] Office Visit (Cardiology)on 06-01-2022 Follow-up visit Diagnoses/Problems Assessed Abnormal echocardiogram (793.2) (R93.1) Never a smoker Hypothyroidism (244.9) (E03.9) Added by Problem List Migration; 2013-02-28; Moved to Suppressed Mar 24 2013 9:03PM Hyperlipidemia (272.4) (E78.5) [...] Social H (more content not included)... Normal [employer] Tobacco Screening.on 023 Adult depression screening assessment No -[facility] [employer] Seeds-Codecademyy 250 DO Work Phone: Fall risk assessment a) No falls within the last year -[facility] Marketing Munchy 250 DO Work Phone: Tobacco use status CPHS b) No M -[facility] Heart-Tapingou дмитрий 250 DO Work Phone: ECHOCARDIO M/2D COMPLETEon 0 05-11-2022 ECHOCARDIO M/2D COMPLETE Patient: BETTE VILLAFANA Exam Date: 05/11/2022 : 1955 Gender:F Ordering : DR MIKALA MOE PA Admission #: [id number] Family : Order #: [id number] CLICK HERE TO VIEW EXAM ECHOCARDIOGRAM REPORT [...] M.D. on 05/13/2022 at 10:52 Normal [facility] MAMM SCREEN 3D ALFA CADon 05-11-2022 MG MAMM SCREEN 3D ALFA CAD Patient: BETTE VILLAFANA Exam Date: 05/11/2022 : 1955 Gender:F Ordering : DR MIKALA MOE PA Admission #: [id number] Family : Order #: [id number] CLICK HERE TO VIEW EXAM RADIOLOGY REPORT [...] kidney cancer at age 52. LOCATION: [facility] BREAST COMPOSITION: Almost entirely fatty. FINDINGS: [...] M.D. on 05/11/2022 at 14:26 Normal [facility] Established Visit (Otolaryng ology)on 02-09-2022 Established [...] Recorded: 09Feb2022 03:01PM Height5 ft 4 in Giiftt620 lb BMI Wsswajmbky77.35 kg/m2 BSA Calculated2.22 Tobacco Useb) No Falls [...] Feb 09 2022 3:21PM EST (Author) Normal [employer] Tobacco Screening.on Fall risk assessment c) Not medically indicated [facility] Work Phone: Tobacco use status CP b) No M [employer] Work Phone: Reference Laboratory Testing Ordered By: [facility] DomainUser on 05-15-2021 SARS-CoV-2 (COVID-19) RNA JONY+probe Ql (Resp) Not detected Invalid Interpretation Code Not Detected [facility] [employer] Comment on above: Result Comment: This nucleic acid amplification test was developed and its performance characteristics determined by [employer]. Nucleic acid amplification tests include RT-PCR and [...] detected) result in this assay. Performed at: [address] [id number] PhD [facility] Tobacco Screening.on 11-30-2 021 Fall risk assessment a) No falls within the last year Abby terrell Work Phone: Tobacco use status CPHS b) No M Evelio terrell Work Phone: Coronavirus 2019 RNA by PCR, Screening Asymptomticon 03-17-2021 Coronavirus 2019 RNA by PCR, Screening Asymptomtic Not detected Normal See Below Abby maldonado Work Phone: Comment on above: SOURCE: Nasal, [...] make patient management decisions.Fact sheet for providers: https://www.fda.gov/media/690671/downloadFact sheet for patients: https://www.fda.gov/media/829947/downloadThis test has received FDA Emergency Use Authorization (EUA) and has been verified by [facility] ([facility]). This test is only authorized for the duration of time that circumstances exist to justify the authorization of the emergency use of in vitro diagnostic tests for the detection of SARS-CoV-2 virus and/or diagnosis of COVID-19 infection under section 564(b)(1) of the Act, 21 U.S.C. 360bbb-3(b)(1), unless the authorization is terminated or revoked sooner. [facility] is certified under CLIA-88 as qualified to perform high complexity testing. Testing is performed in the [facility] laboratories located at [address] [place] [address]. Laboratory - Blood bankon ABO group Nom (Bld) O Savanah maldonado Work Phone: [phone] Blood group antibody screen Ql Negative [facility]-Otol[facility] [employer]ology-Gabriela man Work Phone: [phone] Rh immune globulin screen (Bld) [Interp] Positive MG-Otolary n yanicky-Gabriela man Work Phone: [phone] Laboratory - Chemistry and C hemistry - challengeon 03-13-2021 Anion gap [Moles/Vol] 13 mmol/L 10 - 20 MG- Otolaryn gology-Gabriela man Work Phone: [phone] Calcium [Mass/Vol] 9.3 mg/dL 8.6 - 10.6 MG-Efra laryn yanicky-Gabriela man Work Phone: [phone] Chloride [Moles/Vol] 102 mmol/L 98 - 107 MG-O tolaryn yanicky-Gabriela man Work Phone: [phone] CO2 [Moles/Vol] 28 mmol/L 21 - 32 MG-Otolar yn yanicky-Gabriela man Work Phone: [phone] Creatinine [Mass/Vol] 0.77 mg/dL See Below MG- Otolaryn yanicky-Gabriela man Work Phone: [phone] Comment on above: Reference Range: 0.5 0 - 1.05 Glucose [Mass/Vol] 95 mg/dL 74 - 99 [facility]-[place] laryn yanicky-Gabriela man Work Phone: [phone] Potassium [Moles/Vol] 5.2 mmol/L 3.5 - 5.3 MG- Otolaryn gology-Gabriela man Work Phone: [phone] Sodium [Moles/Vol] 138 mmol/L 136 - 145 [facility]-[place] laryn gology-Gabriela man Work Phone: [phone] Urea nitrogen [Mass/Vol] 19 mg/dL 6 - 23 MG-Otolaryn gology-Gabriela man Work Phone: [phone] Laboratory - Hematology and Cell countson 03-13-2021 Erythrocyte distribution width (RBC) [Ratio] 12.8 % See Below MG-Otolaryn gology-Gabriela man Work Phone: [phone] Comment on above: Reference Range: 11. 5 - 14.5 Hematocrit (Bld) [Volume fraction] 38.6 % See Below MGInsightlyOtolarchavez DocLandingradhay-Gabriela [employer] Work Phone: [phone] Comment on above: Reference Range: 36. 0 - 46.0 Hemoglobin (Bld) [Mass/Vol] 11.8 g/dL below low threshold See Below MG-Otolaryn yanicky-Gabriela [employer] Work Phone: [phone] Comment on above: Reference Range: 12. 0 - 16.0 MCHC (RBC) [Mass/Vol] 30.6 g/dL below low threshold See Below MG-Otolaryn [employer]Landingradhay-Gabriela [employer] Work Phone: [phone] Comment on above: Reference Range: 32. 0 - 36.0 MCV (RBC) [Entitic vol] 96 fL 80 - 100 M G-Otisra DocLandingmechelleInsightlyGabriela [employer] Work Phone: [phone] Platelets (Bld) [#/Vol] 325 10*3/uL 150 - 450 MG-Otolarchavez garciaInsightlyGabriela [employer] Work Phone: [phone] RBC (Bld) [#/Vol] 4.01 {x10E12/L} See Below MG InsightlyOtolarchavez herndonyInsightlyGabriela [employer] Work Phone: [phone] Comment on above: Reference Range: 4.0 0 - 5.20 WBC (Bld) [#/Vol] 8.6 10*3/uL 4.4 - 11.3 [facility]-[place] larchavez garciaInsightlyGabriela [employer] Work Phone: [phone] No Panel Informationon 03-13 >60 >60 MG-Otolaryn DocLandingradhayInsightlyGabriela [employer] Work Phone: [phone] Comment on above: CALCULATIONS OF HUANG MATED GFR ARE PERFORMED USING THE MDRD STUDY EQUATION FOR THE IDMS-TRACEABLE CREATININE METHODS. CLIN CHEM 2007;53:766-72 0.0 {/100_WBC} 0.0-0.0 MG-Otolary n joseInsightlyGabriela [employer] Work Phone: [phone] http://[email or web address] 1:80 80/musescripts/museweb.d ll?RetrieveTestByDateTim e?KbzfvmoWN=[id number]&Da te=04-11-2021&Time=10%3a 52%3a43%3a00&TestType=EC G&Site=1&OutputType=PDF& Ext=PDF MG-Otolaryn gology-Gabriela man Work Phone: [phone] Normal sinus rhythm MG-Ot olaryn gology-Gabriela man Work Phone: [phone] Normal MG-Otolaryn gology-Gabriela man Work Phone: [phone] 1 MG-Otolaryn gology-Gabriela man Work Phone: [phone] 1 MG-Otolaryn gology-Gabriela man Work Phone: [phone] 1 MG-Otolaryn gology-Gabriela man Work Phone: [phone] 1 MG-Otolaryn gology-Gabriela man Work Phone: [phone] 1 MG-Otolaryn gology-Gabriela man Work Phone: [phone] 1 MG-Otolaryn gology-Gabriela man Work Phone: [phone] 40 1 MG-Otolaryn gology-Gabriela man Work Phone: [phone] 1 MG-Otolaryn gology-Gabriela man Work Phone: [phone] -20 1 MG-Otolaryn gology-Gabriela man Work Phone: [phone] 1 MG-Otolaryn gology-Gabriela man Work Phone: [phone] 1 MG-Otolaryn gology-Gabriela man Work Phone: [phone] 1 MG-Otolaryn gology-Gabriela man Work Phone: [phone] 1 MG-Otolaryn gology-Gabriela man Work Phone: [phone] 1 MG-Otolaryn gology-Gabriela man Work Phone: [phone] Chest without Contraston 03-03-2021 CT Chest WO contrast Normal MG-O tolaryn [employer] terrell Work Phone: Tobacco Screening.on Fall risk assessment a) No falls within the last year MG-Otolaryn [employer]-Compa terrell Work Phone: Tobacco use status [facility] b) No M G-Otolaryn [employer] terrell Work Phone: Tobacco Screening.on Fall risk assessment c) Not medically indicated MG-Otolaryn [employer] terrell Work Phone: Tobacco use status CP b) No M G-Otolaryn [employer] terrell Work Phone: Vital Signs Date Time Vital Sign Value Performing Clinician Facility 04-10-2024 08:36-0500 Body height 162.6 cm Dominic Saldana MD Work Phone: [facility] 04-10-2024 08:36-0500 Body mass index (BMI) [Ratio] 45.49 kg/m2 Dominic Saldana MD Work Phone: [facility] 04-10-2024 08:36-0500 Body temperature 97.9 [degF] Dominic Saldana MD Work Phone: [facility] 04-10-2024 08:36-0500 Body weight 120.2 kg Dominic Saldana MD Work Phone: [facility] 04-10-2024 08:36-0500 Diastolic blood pressure 75 mm[Hg] Dominic Saldana MD Work Phone: [facility] 04-10-2024 08:36-0500 Heart rate 77 /min Dominic Saldana MD Work Phone: [facility] 04-10-2024 08:36-0500 Systolic blood pressure 123 mm[Hg] Dominic Saldana MD Work Phone: [facility] 02-21-2024 13:25-0400 Body height 162.6 cm Ronnie Murphy MD Work Phone: [facility] 02-21-2024 13:25-0400 Body mass index (BMI) [Ratio] 44.11 kg/m2 Ronnie Murphy MD Work Phone: [facility] 02-21-2024 13:25-0400 Body weight 116.57 kg Ronnie Murphy MD Work Phone: [facility] 02-14-2024 08:57-0400 Body height 165.1 cm Cristina Hubbard CONVERTER OPERATOR Work Phone: [facility] 02-14-2024 08:57-0400 Body mass index (BMI) [Ratio] 43.93 kg/m2 Cristina Hubbard CONVERTER OPERATOR Work Phone: [facility] 02-14-2024 08:57-0400 Body weight 119.75 kg Cristina Hubbard CONVERTER OPERATOR Work Phone: [facility] 02-14-2024 08:57-0400 Diastolic blood pressure 66 mm[Hg] Cristina Hubbard CONVERTER OPERATOR Work Phone: [facility] 02-14-2024 08:57-0400 Heart rate 81 /min Cristina Hubbard CONVERTER OPERATOR Work Phone: [facility] 02-14-2024 08:57-0400 SaO2% (BldA) [Mass fraction] 95 % Cristina Hubbard CONVERTER OPERATOR Work Phone: [facility] 02-14-2024 08:57-0400 Systolic blood pressure 128 mm[Hg] Cristina Hubbard CONVERTER OPERATOR Work Phone: [facility] 12-20-2023 11:22-0400 Body height 164.08 cm II Bello Hilton Work Phone: [facility] 12-20-2023 11:22-0400 Body mass index (BMI) [Ratio] 43.5 kg/m2 II Bello Hilton Work Phone: [facility] 12-20-2023 11:22-0400 Body weight 117.22 kg II Bello Hilton Work Phone: [facility] 12-20-2023 11:22-0400 Diastolic blood pressure 73 mm[Hg] II Bello Hilton Work Phone: [facility] 12-20-2023 11:22-0400 Heart rate 79 /min II Bello Hilton Work Phone: [facility] 12-20-2023 11:22-0400 Respiratory rate 18 /min II Bello Hilton Work Phone: [facility] 12-20-2023 11:22-0400 SaO2% (BldA) [Mass fraction] 96 % II Bello Hilton Work Phone: [facility] 12-20-2023 11:22-0400 Systolic blood pressure 114 mm[Hg] II Bello Hilton Work Phone: [facility] 10-19-2023 11:10-0400 Body height 164.08 cm II Bello Hilton Work Phone: [facility] 10-19-2023 11:10-0400 Body mass index (BMI) [Ratio] 43.3 kg/m2 II Bello Hilton Work Phone: [facility] 10-19-2023 11:10-0400 Body weight 116.62 kg II Bello Hilton Work Phone: [facility] 10-19-2023 11:10-0400 Diastolic blood pressure 69 mm[Hg] II Bello Hilton Work Phone: [facility] 10-19-2023 11:10-0400 Heart rate 76 /min II Bello Hilton Work Phone: [facility] 10-19-2023 11:10-0400 Respiratory rate 18 /min II Blelo Hilton Work Phone: [facility] 10-19-2023 11:10-0400 SaO2% (BldA) [Mass fraction] 97 % II Bello Hilton Work Phone: [facility] 10-19-2023 11:10-0400 Systolic blood pressure 117 mm[Hg] II Bello Hilton Work Phone: [facility] 10-05-2023 10:09-0400 Body height 164.08 cm II Bello Hilton Work Phone: [facility] 10-05-2023 10:09-0400 Body mass index (BMI) [Ratio] 42.8 kg/m2 II Bello Hilton Work Phone: [facility] 10-05-2023 10:090400 Body temperature 96.6 [degF] II Bello Hilton Work Phone: [facility] 10-05-2023 10:09-0400 Body weight 115.32 kg II Bello Hilton Work Phone: [facility] 10-05-2023 10:09-0400 Diastolic blood pressure 80 mm[Hg] II Bello Hilton Work Phone: [facility] 10-05-2023 10:09-0400 Heart rate 90 /min II Bello Hilton Work Phone: [facility] 10-05-2023 10:09-0400 Respiratory rate 18 /min II Bello Hilton Work Phone: [facility] 10-05-2023 10:09-0400 SaO2% (BldA) [Mass fraction] 96 % II Bello Hilton Work Phone: [facility] 10-05-2023 10:09-0400 Systolic blood pressure 130 mm[Hg] II Bello Hilton Work Phone: [facility] 08-09-2023 11:20-0400 Body height 165.1 cm II Bello Hilton Work Phone: [facility] 08-09-2023 11:20-0400 Body mass index (BMI) [Ratio] 43.2 kg/m2 II Bello Hilton Work Phone: [facility] 08-09-2023 11:20-0400 Body weight 117.67 kg II Bello Hilton Work Phone: [facility] 08-09-2023 11:20-0400 Diastolic blood pressure 76 mm[Hg] II Bello Hilton Work Phone: [facility] 08-09-2023 11:20-0400 Heart rate 73 /min II Bello Hilton Work Phone: [facility] 08-09-2023 11:20-0400 Respiratory rate 18 /min II Bello Hilton Work Phone: [facility] 08-09-2023 11:20-0400 SaO2% (BldA) [Mass fraction] 96 % II Bello Hilton Work Phone: [facility] 08-09-2023 11:20-0400 Systolic blood pressure 138 mm[Hg] II Bello Hilton Work Phone: [facility] 08-06-2023 11:30-0400 Diastolic blood pressure 70 mm[Hg] II Bello Hilton Work Phone: [facility] 08-06-2023 11:30-0400 Heart rate 76 /min II Bello Hilton Work Phone: [facility] 08-06-2023 11:30-0400 Respiratory rate 18 /min II Bello Hilton Work Phone: [facility] 08-06-2023 11:30-0400 SaO2% (BldA) [Mass fraction] 95 % II Bello Hilton Work Phone: [facility] 08-06-2023 11:30-0400 Systolic blood pressure 142 mm[Hg] II Bello Hilton Work Phone: [facility] 08-06-2023 10:34-0400 Body height 166.37 cm II Bello Hilton Work Phone: [facility] 08-06-2023 10:34-0400 Body weight 117 kg II Bello Hilton Work Phone: [facility] 08-06-2023 10:33-0400 Body temperature 98.6 [degF] II Bello Hilton Work Phone: [facility] 07-05-2023 11:09-0500 Body height 165.1 cm II Bello Hilton Work Phone: [facility] 07-05-2023 11:09-0500 Body mass index (BMI) [Ratio] 41.3 kg/m2 II Bello Hilton Work Phone: [facility] 07-05-2023 11:09-0500 Body weight 112.71 kg II Bello Hilton Work Phone: [facility] 06-07-2023 10:30-0500 Body height 165.1 cm Lilliam Scally Other [employer] Other 06-07-2023 10:30-0500 Body mass index (BMI) [Ratio] 41.71 kg/m2 Lilliam Scally Other [employer] Other 06-07-2023 10:30-0500 Body weight 113.72 kg Lilliam Scally Other [employer] Other 06-07-2023 10:30-0500 Diastolic blood pressure 72 mm[Hg] Lilliam Scally Other [employer] Other 06-07-2023 10:30-0500 Respiratory rate 18 /min Lilliam Scally Other [employer] Other 06-07-2023 10:30-0500 SaO2% (BldA) [Mass fraction] 97 % Lilliam Scally Other [employer] Other 06-07-2023 10:30-0500 Systolic blood pressure 114 mm[Hg] Lilliam Schroederly Other [employer] Other 06-03-2023 08:24-0500 Diastolic blood pressure 78 mm[Hg] Emiliano Lagos [facility] [place] 06-03-2023 08:24-0500 Heart rate 91 /min Emiliano Bossharinder [facility] [place] 06-03-2023 08:24-0500 Systolic blood pressure 109 mm[Hg] Emiliano Lagos [facility] [place] 02-22-2023 14:36-0400 Body height 163.8 cm Ronnie Murphy MD Work Phone: [facility] 02-22-2023 14:36-0400 Body mass index (BMI) [Ratio] 43.09 kg/m2 Ronnie Murphy MD Work Phone: [facility] 02-22-2023 14:36-0400 Body weight 115.67 kg Ronnie Murphy MD Work Phone: [facility] 02-15-2023 13:00-0400 Body height 165.1 cm Nikki Fitt Other [employer] Other 02-15-2023 13:00-0400 Body mass index (BMI) [Ratio] 42.16 kg/m2 Nikki Fitt Other [employer] Other 02-15-2023 13:00-0400 Body weight 114.94 kg Nikki Fitt Other [employer] Other 02-01-2023 10:15-0400 Body height 165.1 cm Lilliam Montejo Other [employer] Other 02-01-2023 10:15-0400 Body mass index (BMI) [Ratio] 42.2 kg/m2 Lilliam Scally Other [employer] Other 02-01-2023 10:15-0400 Body weight 115.03 kg Lilliam Scally Other [employer] Other 02-01-2023 10:15-0400 Diastolic blood pressure 78 mm[Hg] Lilliam Scally Other [employer] Other 02-01-2023 10:15-0400 Respiratory rate 20 /min Lilliam Scally Other [employer] Other 02-01-2023 10:15-0400 SaO2% (BldA) [Mass fraction] 96 % Lilliam Scally Other [employer] Other 02-01-2023 10:15-0400 Systolic blood pressure 130 mm[Hg] Lilliam Scally Other [employer] Other 12-22-2022 13:00-0400 Body height 165.1 cm Nikki Fitt Other [employer] Other 12-22-2022 13:00-0400 Body mass index (BMI) [Ratio] 41.73 kg/m2 Nikki Fitt Other [employer] Other 12-22-2022 13:00-0400 Body weight 113.76 kg Nikki Fitt Other [employer] Other 10-19-2022 10:15-0400 Body height 165.1 cm Lilliam Scally Other [employer] Other 10-19-2022 10:15-0400 Body mass index (BMI) [Ratio] 41.41 kg/m2 Lilliam Scally Other [employer] Other 10-19-2022 10:15-0400 Body weight 112.9 kg Lilliam Scally Other [employer] Other 10-19-2022 10:15-0400 Diastolic blood pressure 72 mm[Hg] Lilliam Scally Other [employer] Other 10-19-2022 10:15-0400 Respiratory rate 18 /min Lilliam Scally Other [employer] Other 10-19-2022 10:15-0400 SaO2% (BldA) [Mass fraction] 96 % Lilliam Scally Other [employer] Other 10-19-2022 10:15-0400 Systolic blood pressure 110 mm[Hg] Lilliam Scally Other [employer] Other 10-19-2022 08:15-0400 Body height 165.1 cm Nikki Manning Other [employer] Other 07-27-2022 10:45-0400 Body height 165.1 cm Lilliam Scally Other [employer] Other 07-27-2022 10:45-0400 Body mass index (BMI) [Ratio] 41.08 kg/m2 Lilliam Scally Other [employer] Other 07-27-2022 10:45-0400 Body weight 111.99 kg Lilliamjose g Schroederly Other [employer] Other 07-27-2022 10:45-0400 Diastolic blood pressure 72 mm[Hg] Lilliam Scally Other [employer] Other 07-27-2022 10:45-0400 Respiratory rate 20 /min Lilliam Scally Other [employer] Other 07-27-2022 10:45-0400 SaO2% (BldA) [Mass fraction] 97 % Lilliam Scally Other [employer] Other 07-27-2022 10:45-0400 Systolic blood pressure 109 mm[Hg] Lilliam Scally Other [employer] Other 06-15-2022 09:15-0500 Body height 165.1 cm Nikki Manning Other [employer] Other 06-01-2022 13:03-0500 Body height 163.83 cm Gopi Solis MD Work Phone: [facility] [employer] 250 DO Work Phone: 06-01-2022 13:03-0500 Body mass index (BMI) [Ratio] 43.6 kg/m2 Gopi Solis MD Work Phone: [facility] 250 DO Work Phone: 06-01-2022 13:03-0500 Body surface area Derived from formula 2.19 m2 Gopi Solis MD Work Phone: [facility] 250 DO Work Phone: 06-01-2022 13:03-0500 Body weight 117.03 kg Gopi Solis MD Work Phone: [facility] 250 DO Work Phone: 06-01-2022 13:03-0500 Diastolic blood pressure 62 mm[Hg] Gopi Solis MD Work Phone: [facility] 250 DO Work Phone: 06-01-2022 13:03-0500 Heart rate 76 /min Gopi Solis MD Work Phone: [facility] 250 DO Work Phone: 06-01-2022 13:03-0500 Systolic blood pressure 126 mm[Hg] Gopi Solis MD Work Phone: [facility] 250 DO Work Phone: 06-01-2022 12:30-0500 Body height 165.1 cm Lilliam Scally Other [employer] Other 06-01-2022 12:30-0500 Body mass index (BMI) [Ratio] 42.85 kg/m2 Lilliam Scally Other [employer] Other 06-01-2022 12:30-0500 Body weight 116.8 kg Lilliam Scally Other [employer] Other 06-01-2022 12:30-0500 Diastolic blood pressure 70 mm[Hg] Lilliam Scally Other [employer] Other 06-01-2022 12:30-0500 Respiratory rate 20 /min Lilliam Scally Other [employer] Other 06-01-2022 12:30-0500 SaO2% (BldA) [Mass fraction] 97 % Lilliam Montejo Other [employer] Other 06-01-2022 12:30-0500 Systolic blood pressure 112 mm[Hg] Lilliam Montejo Other [employer] Other 02-09-2022 15:01-0400 Body height 162.56 cm Ronnie Murphy MD Work Phone: QH-Siiujmbzucwifm-Cfc [place] Work Phone: 02-09-2022 15:01-0400 Body mass index (BMI) [Ratio] 46.35 kg/m2 Ronnie Murphy MD Work Phone: MC-Mwkwdzguyfqmug-Ine [place] Work Phone: 02-09-2022 15:01-0400 Body surface area Derived from formula 2.22 m2 Ronnie Murphy MD Work Phone: MV-Boyzeeoylkopgn-Wpm tlake Work Phone: 02-09-2022 15:01-0400 Body weight 122.47 kg Ronnie Murphy MD Work Phone: AU-Ybvzckqoveciid-Fxx [place]lake Work Phone: 03-31-2021 15:33-0500 Body height 162.56 cm Ronnie Murphy MD Work Phone: IP-Ytuxgtwpsgnlxu-Tiy [place] Work Phone: 03-31-2021 15:33-0500 Body mass index (BMI) [Ratio] 46.52 kg/m2 Ronnie Murphy MD Work Phone: OK-Xjbsauwbiinvkl-Wfy [place]lake Work Phone: 03-31-2021 15:33-0500 Body surface area Derived from formula 2.23 m2 Ronnie Murphy MD Work Phone: XY-Lxxygrntnikpak-Vvk [place]lake Work Phone: 03-31-2021 15:33-0500 Body temperature 97.2 [degF] Ronnie Murphy MD Work Phone: CH-Kjwzrzsieeypzl-Lip [place] Work Phone: 03-31-2021 15:33-0500 Body weight 122.93 kg Ronnie Murphy MD Work Phone: GZ-Qqnohoeldpyazo-Vjo [place]lake Work Phone: 03-03-2021 12:52-0400 Body height 162.56 cm Ronnie Murphy MD Work Phone: ZH-Ouajjgzxpopzfg-Oos [place] Work Phone: 03-03-2021 12:52-0400 Body mass index (BMI) [Ratio] 46.35 kg/m2 Ronnie Murphy MD Work Phone: ED-Zfbkxjnjmtijnp-Uww [place] Work Phone: 03-03-2021 12:52-0400 Body surface area Derived from formula 2.22 m2 Ronnie Murphy MD Work Phone: OZ-Crnwtkpxthkcni-Zox tlake Work Phone: 03-03-2021 12:52-0400 Body weight 122.47 kg Ronnie Murphy MD Work Phone: IJ-Sdveruojbwenkw-Lun [place] Work Phone: 02-10-2021 15:05-0400 Body height 162.56 cm Ronnie Murphy MD Work Phone: CY-Wrwvpsqnrfhemd-Bry [place] Work Phone: 02-10-2021 15:05-0400 Body mass index (BMI) [Ratio] 46 kg/m2 Ronnie Murphy MD Work Phone: AB-Rkuptyloitvepm-Qyu [place] Work Phone: 02-10-2021 15:05-0400 Body surface area Derived from formula 2.22 m2 Ronnie Murphy MD Work Phone: ZR-Neupnzddvdkfey-Zrc [place] Work Phone: 02-10-2021 15:05-0400 Body temperature 97.4 [degF] Ronnie Murphy MD Work Phone: FI-Vkooufmcrnwphb-Njp [place] Work Phone: 02-10-2021 15:05-0400 Body weight 121.56 kg Ronnie Murphy MD Work Phone: IW-Jhddqjpmrweysc-Ken [place] Work Phone: Encounters Encounter Date Encounter Type Care Provider Facility Start: 05-08-2024 ambulatory Ben Mcbride acility:[facility] Start: 04-18-2024 End: 04-18-2024 Clinisync Result Encounter Generic External Data Provider [facility] External Department Unsolicited Start: 04-18-2024 End: 04-18-2024 Clinisync Result Encounter Generic External Data Provider [facility] External Department Unsolicited Start: 04-17-2024 End: 04-18-2024 Clinisync Result Encounter Generic External Data Provider [facility] External Department Unsolicited Start: 04-17-2024 End: 04-18-2024 Clinisync Result Encounter Generic External Data Provider [facility] External Department Unsolicited Start: 04-10-2024 End: 04-10-2024 ambulatory BELLO [facility] Start: 04-10-2024 End: 04-10-2024 ambulatory [facility] Start: 04-10-2024 End: 04-10-2024 Office outpatient new 60 minutes Dominic Saldana MD Work Phone: [facility] Comment on above: Adrenal nodule (Prim stefano Dx); Hypothyroidism, unspecified type; Type 2 diabetes mellitus without complication, without long-term current use of insulin (Multi) Start: 03-05-2024 End: 03-06-2024 Telephone encounter Bello Hilton MD Work Phone: [facility] Start: 02-21-2024 End: 02-21-2024 ambulatory [facility] Start: 02-21-2024 End: 02-21-2024 Office outpatient visit 15 minutes Ronnie Murphy MD Work Phone: [facility] Comment on above: Tracheal stenosis (P rimary Dx); Gastroesophageal reflux disease without esophagitis Start: 02-14-2024 End: 02-14-2024 Bamboo flowsheet Cristina Hubbard CONVERTER OPERATOR Work Phone: [facility] Start: 02-14-2024 End: 02-14-2024 Bamboo flowsheet Cristina Hubbard CONVERTER OPERATOR Work Phone: [facility] Start: 02-14-2024 End: 02-14-2024 Assay of hemosiderin, quant Cristina Hubbard CONVERTER OPERATOR Work Phone: [facility] Start: 02-14-2024 End: 02-14-2024 Patient encounter procedure Cristina Hubbard CONVERTER OPERATOR Work Phone: [facility] Comment on above: Medicare annual well ness visit, subsequent (Primary Dx); Obstructive sleep apnea; BiPAP (biphasic positive airway pressure) dependence; Dyspnea on exertion; Decreased right ventricular systolic function; LVH (left ventricular hypertrophy); Mitral valve insufficiency and aortic valve stenosis; Gastroesophageal reflux disease without esophagitis; Hepatomegaly; Intra-abdominal lymphadenopathy; Tubular adenoma of colon; Lower extremity edema; Acquired hypothyroidism (CMS/HCC); Morbid obesity with BMI of 40.0-44.9, adult (CMS/HCC); Type 2 diabetes mellitus without complication, without long-term current use of insulin (CMS/HCC); Bipolar 1 disorder, depressed, partial remission (CMS/HCC); Mixed hyperlipidemia (CMS/HCC); Lipoprotein deficiency disorder (CMS/HCC); Routine general medical examination at health care facility; Acute bronchitis, unspecified organism; Estrogen deficiency; Screening for heart disease; Trigger finger of left hand, unspecified finger; Type 2 diabetes mellitus with other specified complication (CMS/HCC) Start: 02-14-2024 End: 02-14-2024 ambulatory CRISTINA Yari CHAVEZSTEVIE Not Available Start: 12-20-2023 End: 12-20-2023 ambulatory II Bello Hilton Work Phone: [facility] Work Phone: Start: 12-20-2023 End: 12-20-2023 Patient encounter procedure II Bello Hilton Work Phone: [facility] Physician [facility] Work Phone: Start: 10-25-2023 Registered Recurring II Bello Hilton Work Phone: [facility] Start: 10-19-2023 End: 10-19-2023 Departed Referred II Bello Hilton Work Phone: [facility] Work Phone: Start: 10-19-2023 End: 10-19-2023 ambulatory II Bello Hilton Work Phone: [facility] Work Phone: Start: 10-19-2023 End: 10-19-2023 Patient encounter procedure II Bello Hilton Work Phone: [facility] Physician [facility] Work Phone: Start: 10-06-2023 End: 10-06-2023 ambulatory DENISE Cortez PRINCESS Not Available Start: 10-05-2023 End: 10-05-2023 ambulatory II Bello Hilton Work Phone: [facility] Work Phone: Start: 10-05-2023 End: 10-05-2023 Patient encounter procedure II Bello Hilton Work Phone: [facility] Physician [facility] Work Phone: Start: 08-09-2023 End: 08-09-2023 ambulatory II Bello Hilton Work Phone: [facility] Work Phone: Start: 08-09-2023 End: 08-09-2023 Patient encounter procedure II Bello Hilton Work Phone: [facility] Physician Group-[facility] Work Phone: Start: 08-06-2023 End: 08-06-2023 Emergency department patient visit II Bello Hilton Work Phone: [facility]Emergency [facility] Work Phone: Start: 07-22-2023 End: 07-22-2023 ambulatory MIKALA MOE Not Available Start: 07-05-2023 End: 07-05-2023 Patient encounter procedure II Bello Hilton Work Phone: [facility] Physician Group-[facility] Work Phone: Start: 06-28-2023 End: 06-28-2023 ambulatory CRISTINA HUBBARD Not Available Start: 06-14-2023 Registered Recurring II Bello Hilton Work Phone: [facility] Credible Start: 06-07-2023 (FCCCWMNF/U) Weight Management f/u Lilliam Montejo [facility] Start: 06-07-2023 End: 06-07-2023 ambulatory Lilliam Toro [employer] Other Start: 06-07-2023 Registered Recurring II Bello Hilton Work Phone: [facility] Work Phone: Start: 06-03-2023 End: 06-04-2023 ambulatory Emiliano Lagos Facility:[facility] Start: 06-03-2023 End: 06-03-2023 Patient encounter procedure Emiliano Lagos [facility] [place] Start: 06-01-2023 End: 06-01-2023 ambulatory CRISTINA HUBBARD Not Available Start: 05-25-2023 End: 05-25-2023 ambulatory Lilliam Montejo Other [employer] Other Start: 05-25-2023 Telephone encounter Lilliam justice [facility] Start: 05-17-2023 ambulatory Emiliano Lagos Facility:[facility] Start: 05-17-2023 Non-patient / Non-visit II Jac Hilton Work Phone: [facility] Physician [facility] Work Phone: Start: 05-16-2023 Telephone encounter Lilliam [facility] Start: 05-16-2023 End: 05-16-2023 ambulatory II Bello Hilton Work Phone: [facility] [employer] Other Start: 05-16-2023 End: 05-16-2023 Departed Referred II Bello Hilton Work Phone: [facility] Start: 05-16-2023 Non-patient / Non-visit II Jac Hilton Work Phone: [facility] Work Phone: Start: 05-15-2023 End: 05-17-2023 ambulatory SHAIKH ADALID Facility:[id number] Start: 04-13-2023 End: 04-13-2023 ambulatory Lilliam Montejo Other [facility] [employer] Other Start: 04-13-2023 Telephone encounter Lilliam [facility] Start: 03-18-2023 End: 03-18-2023 ambulatory Lilliam Montejo Other [place] [employer] Other Start: 03-18-2023 Telephone encounter Lilliam [facility] Start: 03-15-2023 Registered Recurring II Bello Hilton Work Phone: [facility] Work Phone: Start: 02-22-2023 End: 02-22-2023 Office outpatient visit 15 minutes Ronnie Murphy MD Work Phone: [facility] Comment on above: Tracheal stenosis (P rimary Dx) Start: 02-15-2023 ([facility] RD FU) [facility] F/ U [employer] Management Aide Nikki Manning [facility] Start: 02-15-2023 End: 02-15-2023 ambulatory Nikki Fitt Other [employer] Other Start: 02-01-2023 [facility] Weight Management f/u Lilliam Guerita [facility] Start: 02-01-2023 End: 02-01-2023 ambulatory Lilliam Montejo Other [employer] Other Start: 01-27-2023 Rx Renewal Luana Cox DYNAMITE [employer] CRIMPER-BUSINESS ACCOUNT LEADER Work Phone: WG-Murfwbvzsmemmt-Djjf n [place] [address] Work Phone: Start: 01-05-2023 End: 01-05-2023 ambulatory Lilliam Montejo Other [employer] Other Start: 01-05-2023 Telephone encounter Lilliam Montejo [facility] Start: 12-22-2022 ([facility] WMNI) WMN Init ial Provider Nikki Manning [facility] Start: 12-22-2022 End: 12-22-2022 ambulatory Nikki Fitt Other [employer] Other Start: 10-19-2022 [facility] Weight Management f/u Lilliam Montejo [facility] Start: 10-19-2022 End: 10-19-2022 ambulatory Nikki Fitt Other [employer] Other Start: 10-19-2022 IBT FOR OBESITY GROU P 2-10 30M Nikki [facility] Start: 09-02-2022 End: 09-03-2022 ambulatory LILLIAM MONTEJO Facility:[facility] Start: 08-05-2022 End: 08-05-2022 ambulatory Lilliam Montejo Other [employer] Other Start: 08-05-2022 Telephone encounter [facility] Start: 07-27-2022 (FCCCWMNF/U) Weight Management f/u Lilliam Montejo [facility] Start: 07-27-2022 End: 07-27-2022 ambulatory Lilliam Montejo Other [employer] Other Start: 06-29-2022 End: 06-29-[address] DOCTOR SHANKS Facility:[facility] Start: 06-15-2022 End: 06-15-2022 ambulatory Nikki Cotaleslie Other [employer] Other Start: 06-15-2022 IBT FOR OBESITY GROU P 2-10 30M Nikki [facility] Start: 06-01-2022 Office consultation new/estab patient 60 min Gopi Solis MD [facility] Work Phone: Start: 06-01-2022 Office outpatient ne w 45 minutes Gopi Solis MD Work Phone: [facility] 250 DO Work Phone: Start: 06-01-2022 (FCCCWMNF/U) Weight Management f/u Lilliam Montejo [facility] Start: 06-01-2022 End: 06-01-2022 ambulatory Bello Hilton II Facility: Start: 05-17-2022 End: 05-18-[address] DOCTOR SHANKS Facility:[facility] Start: 05-11-2022 End: 05-12-[address] CAROL ASCENCIO Facility:[facility] Start: 04-28-2022 Rx Change Luana Moralest [employer]-BUSINESS ACCOUNT LEADER Work Phone: SC-Fbntjvuziiwilf-Ittw n [place] [address] Work Phone: Start: 02-09-2022 Office outpatient vi sit 15 minutes Ronnie Murphy MD Work Phone: TL-Svhjzxdxnnlmfy-[place] Work Phone: Start: 02-09-[address] RONNIE MURPHY Fa cility:[id number] Start: 05-15-2021 End: 08-13-2021 Patient encounter procedure BELLO HILTON [facility] Start: 04-16-2021 Rx Renewal Ronnie Murphy MD Work Phone: NH-Wiqqijbznzdjue-Qpbj n [place] [address] Work Phone: Start: 03-31-2021 Office outpatient vi sit 15 minutes Ronnie Murphy MD Work Phone: QT-Vtdoqoxzgszark-Zats [place] Work Phone: Start: 03-19-2021 [facility], Provider: Ronnie Murphy, Status: Pen, Time: 9:00 AM Ronnie Murphy MD Work Phone: OT-Mqvbotmbaieqdk-Ggvd man Work Phone: Start: 03-18-2021 Chart Update Ronnie Murphy MD Work Phone: XV-Ttcpzmqccfkqbp-Skmo man Work Phone: Start: 03-04-2021 Chart Update Ronnie Murphy MD Work Phone: AP-Ffrbywfpcwbzub-Dkyb [place] Work Phone: Start: 02-11-2021 Telephone encounter Luana Espinosa ndt [employer]IM[employer]-BUSINESS ACCOUNT LEADER Work Phone: OD-Jmncyvzstoltxe-Sthv rban Work Phone: Start: 02-10-2021 Office outpatient vi sit 15 minutes Ronnie Murphy MD Work Phone: RV-Lfzpvuhinugnrt-Vccm [place] Work Phone: Start: 02-12-2020 Patient encounter procedure Ronnie Murphy TL-Xsayiricftatvp-Kpoa rban Work Phone: Start: 08-22-2018 Patient encounter procedure Ronnie Murphy UJ-Trahzukjtndzfj-Rdah n [place] [address] Work Phone: Start: 02-28-2018 Patient encounter procedure Ronnie Murphy TY-Zrqobijwlngqyk-Bfmu n [place] [address] Work Phone: Start: 08-23-2017 Patient encounter procedure Ronnie Murphy AX-Lodaxizcijbnjf-Yphv n [place] [address] Work Phone: Start: 02-22-2017 Patient encounter procedure Ronnie Murphy HT-Rebivimjrvuthc-Rnbi n [place] [address] Work Phone: Procedures Date Procedure Procedure Detail Performing Clinician Start: 04-18-2024 [facility] CREATININE Generic External Data Provider Start: 04-17-2024 ALL DHEA SULFATE Generi c External Data Provider Start: 04-17-2024 [facility] CORTISOL Generic E xternal Data Provider Start: 04-10-2024 Thyrotropin [Units/v olume] in Serum or Plasma Dominic Saldana MD Work Phone: Start: 02-15-2024 Lipid 1996 panel - S julieth or Plasma Ronnie Murphy MD Work Phone: Start: 02-15-2024 Thyrotropin [Units/v olume] in Serum or Plasma Ronnie Murphy MD Work Phone: Start: 02-14-2024 Hemoglobin glycosylated a1c Cristina Hubbard NP Work Phone: Start: 10-05-2023 Quick Strep (POC) II Da kenisha Hilton Work Phone: Start: 08-06-2023 Duplex scan veins of upper limb II Bello Hilton Work Phone: Start: 08-06-2023 Plain chest X-ray II Da kenisha Hilton Work Phone: Start: 08-06-2023 Plain X-ray of left shoulder II Bello Hilton Work Phone: Start: 05-16-2023 Laparoscopic cholecystectomy Emiliano Yolis Start: 05-11-2023 Mammography Cristina fox CONVERTER OPERATOR Work Phone: Start: 05-11-2022 Mammography Ronnie mcdowell MD Work Phone: Start: 2019 Total colonoscopy Brigitte Daugherty MD Work Phone: Start: 07-14-2018 Colonoscopy Cristina fox CONVERTER OPERATOR Work Phone: Start: 2001 Reduction mammoplasty J ohn Yolis Start: 1962 History of hernia repair Emiliano Lagos Hernia repair Gopi ovalle MD Work Phone: Operation on breast Gopi Solis MD Work Phone: Plan of Treatment Date Care Activity Detail Author Start: 07-14-2028 Screening for malign ant neoplasm of colon [facility] Start: 04-10-2025 Thyroid stimulating hormone measurement TSH Level [facility] Start: 02-26-2025 End: 02-26-2025 Patient encounter procedure 02/26/2025 1:15 PM EDT Office Visit [facility] [address] [place] [address] [place] [address] [place] [address] [facility] Start: 02-14-2025 Lipid panel Lipid Panel [facility] Start: 02-14-2025 Thyroid stimulating hormone measurement TSH Level [facility] [facility] Start: 02-14-2025 Urine screening for protein Diabetes: Urine Protein Screening [facility] Start: 02-13-2025 Medicare Annual Wellness (AWV) Medicare Annual Wellness (AWV) [facility] Start: 02-13-2025 Pneumococcal Vaccine : 65+ Years (1 of 2 - PCV) Pneumococcal Vaccine: 65+ Years (1 of 2 - PCV) [facility] Comment on above: Postponed from 05/02 (Patient Refused) Start: 01-25-2025 Glaucoma screening Diabetes: R etinopathy Screening [facility] Start: 10-18-2024 Urine screening for protein Diabetes: Urine Protein Screening [facility] Start: 08-22-2024 End: 08-22-2024 Patient encounter procedure 08/22/2024 4:30 PM EDT Appointment [facility] [address] [place] [id number] [facility] Start: 08-07-2024 End: 08-07-2024 Patient encounter procedure 08/07/2024 10:20 AM EDT Office Visit [facility] [address] [place] [phone] [place] [address] Department [place] [address] [facility] Start: 07-09-2024 Hemoglobin A1c measurement Diabetes: Hemoglobin A1C [facility] Start: 05-16-2024 Hemoglobin A1c measurement Diabetes: Hemoglobin A1C [facility] Start: 05-11-2024 Screening for malign ant neoplasm of breast Mammogram [facility] Start: 04-10-2024 End: 04-10-2025 CT Adrenal gland WO and W contrast IV CT adrenals w and wo IV contrast Imaging Routine Adrenal nodule Expected: 04/10/2024, Expires: 04/10/2025 [facility] Service Area Work Phone: Comment on above: Expected: 04/10/2024 , Expires: 04/10/2025 Start: 04-10-2024 Influenza vaccination Influenza Vacc ine (#1) [facility] Comment on above: Postponed from 12/31 (Patient Refused) Start: 04-10-2024 End: 04-10-2024 Patient encounter procedure 04/10/2024 8:20 AM EST Office Visit [facility] [address] [place] [address] [place] [address] [address] Department [place] [address] [facility] Start: 02-21-2024 End: 02-21-2024 Patient encounter procedure 02/21/2024 1:15 PM EDT Office Visit [facility] [address] [place] [address] [place] [address] [place] [address] [facility] Start: 02-14-2024 End: 02-13-2025 CBC panel - Blood by Automated count CBC Lab Routine Medicare annual wellness visit, subsequent Gastroesophageal reflux disease without esophagitis Lower extremity edema Type 2 diabetes mellitus without complication, without long-term current use of insulin ([facility]) Expected: 02/14/2024 (Approximate), Expires: 02/13/2025 [facility] Comment on above: Expected: 02/14/2024 (Approximate), Expires: 02/13/2025 Start: 02-14-2024 End: 02-13-2025 Comprehensive metabolic 2000 panel - Serum or Plasma Comprehensive metabolic panel Lab Routine Medicare annual wellness visit, subsequent Type 2 diabetes mellitus without complication, without long-term current use of insulin ([facility]/HCC) Expected: 02/14/2024 (Approximate), Expires: 02/13/2025 [facility] Comment on above: Expected: 02/14/2024 (Approximate), Expires: 02/13/2025 Start: 02-14-2024 End: 02-13-2025 DXA Skeletal system Views for bone density DEXA bone density Imaging Routine Medicare annual wellness visit, subsequent Estrogen deficiency Expected: 02/14/2024 (Approximate), Expires: 02/13/2025 [facility] Work Phone: Comment on above: Expected: 02/14/2024 (Approximate), Expires: 02/13/2025 Start: 02-14-2024 End: 02-13-2025 Lipid 1996 panel - Serum or Plasma Lipid panel Lab Routine Medicare annual wellness visit, subsequent Type 2 diabetes mellitus without complication, without long-term current use of insulin ([facility]) Mixed hyperlipidemia ([facility]/HCC) Expected: 02/14/2024 (Approximate), Expires: 02/13/2025 [facility] Comment on above: Expected: 02/14/2024 (Approximate), Expires: 02/13/2025 Start: 02-14-2024 End: 02-13-2025 Microalbumin/Creatinine panel in random Urine Microalbumin / creatinine, urine ratio Lab Routine Medicare annual wellness visit, subsequent Type 2 diabetes mellitus without complication, without long-term current use of insulin ([facility]/HCC) Expected: 02/14/2024 (Approximate), Expires: 02/13/2025 [facility] Comment on above: Expected: 02/14/2024 (Approximate), Expires: 02/13/2025 Start: 02-14-2024 End: 02-13-2025 Thyrotropin [Units/volume] in Serum or Plasma TSH Lab Routine Medicare annual wellness visit, subsequent Acquired hypothyroidism ([facility]/HCC) Expected: 02/14/2024 (Approximate), Expires: 02/13/2025 [facility] Comment on above: Expected: 02/14/2024 (Approximate), Expires: 02/13/2025 Start: 02-14-2024 End: 02-14-2024 Patient encounter procedure 02/14/2024 9:00 AM EDT Office Visit [facility] [address] [facility] [address] [place] [address] Cristina Hubbard NP [address] [facility] [address] [place] [address] Arrived [facility] Comment on above: Arrived Start: 01-01-2024 COVID-19 Vaccine ( season) COVID-19 Vaccine ( season) [facility] Start: 01-01-2024 COVID-19 Vaccine ( season) COVID-19 Vaccine ( season) [facility] Start: 01-01-2024 Influenza vaccination Influenza Vacc ine (#1) [facility] Start: 12-15-2023 Medicare Annual Wellness (AWV) Medicare Annual Wellness (AWV) [facility] Start: 09-20-2023 Hemoglobin A1c measurement Diabetes: Hemoglobin A1C [facility] Start: 08-06-2023 Duplex scan veins of upper limb US venous duplex UE LT [facility] Start: 08-06-2023 US Upper extremity v ein - left [facility] Start: 06-14-2023 ambulatory Ambulatory Facility: [facility] Start: 05-11-2023 Screening for malign ant neoplasm of breast Mammogram [facility] Start: 02-22-2023 FUV, Provider: Ronnie Murphy, Status: Pen, Time: 2:45 PM FUV, Provider: Ronnie Murpyh, Status: Pen, Time: 2:45 PM RA-Gbjqshqbnoogmm-Y [place] Work Phone: Start: 12-31-2022 Influenza vaccination Influenza Vacc ine (#1) [facility] Start: 08-10-2022 FUV, Provider: Gopi Solis, Status: Pen, Time: 12:50 PM FUV, Provider: Gopi Solis, Status: Pen, Time: 12:50 PM [facility] [address] DO Work Phone: Start: 07-13-2022 REST ONLY, Provider: CHASITY REINAI NUCLEAR 01,[id number], Status: Pen, Time: 12:30 PM REST ONLY, Provider: CHASITY HHVI NUCLEAR 01,[id number], Status: Pen, Time: 12:30 PM [facility] [address] DO Work Phone: Start: 07-12-2022 STRESSNUC2, Provider : CHASITY HHVI NUCLEAR 01,[id number], Status: Pen, Time: 12:30 PM STRESSNUC2, Provider: CHASITY HHVI NUCLEAR 01,[id number], Status: Pen, Time: 12:30 PM [facility] [address] DO Work Phone: Start: 07-06-2022 COVID-19 Vaccine (4 - Pfizer series) COVID-19 Vaccine (4 - Pfizer series) [facility] Start: 02-09-2022 FUV, Provider: Ronnie Murphy, Status: Pen, Time: 2:50 PM FUV, Provider: Ronnie Murphy, Status: Pen, Time: 2:50 PM XT-Erzrfyjqpuiswn-K [place] Work Phone: Start: 03-31-2021 POV, Provider: Ronnie Murphy, Status: Pen, Time: 3:00 PM POV, Provider: Ronnie Murphy, Status: Pen, Time: 3:00 PM OU-Juqqpjveocymld-Z [place] Work Phone: Start: 03-19-2021 [facility] Provider: Ronnie Murphy, Status: Pen, Time: 9:00 AM [facility], Provider: Ronnie Murphy, Status: Pen, Time: 9:00 AM DJ-Rcunzgdydcdcrh-K [place] Work Phone: Start: 03-03-2021 FUV, Provider: Ronnie Murphy, Status: Pen, Time: 1:00 PM FUV, Provider: Ronnie Murphy, Status: Pen, Time: 1:00 PM JL-Dmfqjglqugultq-N [place] Work Phone: Start: 2017 Hepatitis B Vaccines (1 of 3 - Risk 3-dose series) Hepatitis B Vaccines (1 of 3 - Risk 3-dose series) [facility] Start: 2017 RSV High Risk: (Elde rly (60+) or Population) (1 - Risk 60-74 years 1-dose series) RSV High Risk: (Elderly (60+) or Population) (1 - Risk 60-74 years 1-dose series) [facility] Start: 2007 Zoster Vaccines (1 o f 2) Zoster Vaccines (1 of 2) [facility] Start: 1979 DTaP/Tdap/Td Vaccine s (1 - Tdap) DTaP/Tdap/Td Vaccines (1 - Tdap) [facility] Start: 1978 Screening for malign ant neoplasm of cervix [facility] Start: 1976 Hepatitis A Vaccines (1 of 2 - Risk 2-dose series) Hepatitis A Vaccines (1 of 2 - Risk 2-dose series) [facility] Start: 1976 Pneumococcal vaccination Pneumococcal Vaccine (1 of 2 - PCV) [facility] Start: 1976 Urine screening for protein Diabetes: Urine Protein Screening [facility] Start: 1975 Hepatitis C screening Hepatitis C Sc reening [facility] Start: 1967 Diabetic foot examination Diabetes: Foot Exam [facility] Start: 1967 Glaucoma screening Diabetes: R etinopathy Screening [facility] Start: 1963 Pneumococcal Vaccine : 65+ Years (1 - PCV) Pneumococcal Vaccine: 65+ Years (1 - PCV) [facility] Start: 1963 Pneumococcal Vaccine : 65+ Years (1 of 2 - PCV) Pneumococcal Vaccine: 65+ Years (1 of 2 - PCV) [facility] Start: 1958 MMR Vaccines (1 of 1 - Standard series) MMR Vaccines (1 of 1 - Standard series) [facility] Start: 1957 Hemoglobin A1c measurement Diabetes: Hemoglobin A1C [facility] Start: 1957 Lipid panel Lipid Panel [facility] Start: 1957 Screening for malign ant neoplasm of colon [facility] Start: 1957 Screening for osteoporosis Bone Density Scan [facility] Start: 1957 Thyroid stimulating hormone measurement TSH Level [facility] Start: 1957 Yearly Adult Physical Yearly Adult P hysical [facility] CT for calcium scori ng WO contrast and CTA W contrast IV Heart and coronary arteries CT heart calcium scoring wo IV contrast Imaging Routine Decreased right ventricular systolic function LVH (left ventricular hypertrophy) Type 2 diabetes mellitus without complication, without long-term current use of insulin (CMS/HCC) Mixed hyperlipidemia (CMS/HCC) Screening for heart disease Ordered: 02/14/2024 [facility] Comment on above: Ordered: 02/14/2024 Patient Education Shoulder Pain (DC) [facility] Work Phone: Patient referral [facility] Work Phone: [facility] Immunizations Immunization Date Immunization Notes Care Provider Fa cility 05-11-2022 Moderna SARS-CoV-2 Vaccination Cristina Hubbard CONVERTER OPERATOR Work Phone: [facility] 05-11-2022 Pfizer COVID-19 Vac Bivalent 30 MCG/0.3ML Intramuscular Suspension Gopi Solis MD Work Phone: [facility] [address] DO Work Phone: 04-02-2021 Pfizer-BioNTech COVID-19 Vacc 30 MCG/0.3ML Intramuscular Suspension Gopi Solis MD Work Phone: [facility] 09-15-2020 Pfizer-BioNTech COVID-19 Vacc 30 MCG/0.3ML Intramuscular Suspension oGpi Solis MD Work Phone: [facility] 08-25-2020 Pfizer-BioNTech COVID-19 Vacc 30 MCG/0.3ML Intramuscular Suspension Gopi Solis MD Work Phone: [facility] 03-01-2015 tetanus toxoid, adsorbed Cristina Hubbard CONVERTER OPERATOR Work Phone: [facility] NEGATED: Highlighted row has not occurred!06-03-2023 influenza virus vaccine, unspecified formulation Emiliano Lagos [facility] [place] Payers Date Payer Category Payer Medicare [id number] 2023 Unknown [id number] 2023 Miscellaneous or Other [facility] [id number] 2023 Unknown [id number] 2022 Private Health Insurance [id number]. [id number] 2022 Medicare [id number] 2022 Self-pay 2021 Private Health Insurance COV ID 1959 Private Health Insurance [id number] 1957 Unknown [id number] 2.16.840.1.724865.3.579. 2.356 1957 Unknown [id number] 2.16.840.1.794961.3.579. 2.356 1957 Unknown [id number] 2.16.840.1.555142.3.579. 2.593 1957 Unknown [id number] 2.16.840.1.047980.3.579. 2.593 1957 Unknown [id number] 2.16.840.1.423137.3.579. 2.593 1957 Unknown [id number] 2.16.840.1.197764.3.579. 2.593 1957 Unknown [id number] 2.16.840.1.526130.3.579. 2.727 1957 Unknown [id number] 2.16.840.1.505702.3.579. 2.727 1957 Unknown [id number] 2.16.840.1.771009.3.579. 2.7 1957 Unknown [id number] 2.16.840.1.790731.3.579. 2. 1957 Unknown [id number] 2.16.840.1.493434.3.579. 2. 1957 Unknown [id number] 2.16.840.1.406965.3.579. 2.1258 1957 Unknown [id number] 2.16.840.1.696459.3.579. 2.1258 1957 Unknown [id number] 2.16.840.1.117759.3.579. 2.1258 1957 Unknown [id number] 2.16.840.1.725616.3.579. 2.1258 1957 Unknown [id number] 2.16840.1.672766.3.579. 2.1258 1957 Unknown [id number] 2.16840.1.406295.3.579. 2.1245 1957 Unknown [id number] 2.16840.1.730321.3.579. 2.1244 1957 Unknown [id number] 2.16840.1.053502.3.579. 2.124 Medicare Medicare- Part A Only [id number] Unknown Unknown [id number] Unknown [id number] 2.16840.1.952262.19 Unknown HCAP/HFA/FAP Active [id number] Unknown [id number] 2.16840.1.541173.3.579. 2.531 Unknown [id number] 2.16.840.1.277627.3.579. 2.531 Unknown [id number] 2.16.840.1.839431.3.579. 2.531 Unknown [id number] 2.16.840.1.614327.3.579. 2.531 Unknown [id number] 2.16.840.1.581641.3.579. 2.531 Social History Date Type Detail Facility Start: 02-22-2023 End: 02-21-2024 Never a smoker Never a smoker UQ-Chctohuzpvnaol-Qt [facility] Work Phone: Comment on above: pop 3 daily; Start: 02-22-2023 End: 02-21-2024 Sex Assigned At Female [facility] Start: 09-22-2022 End: 02-22-2023 Tobacco smoking status NHIS Never smoked tobacco [facility] Start: 09-22-2022 End: 02-22-2023 Tobacco use and exposure Smokeless tobacco non-user [facility] Work Phone: Start: 1955 Sex Assigned At Not on file U [facility] Work Phone: Start: 02-12-2023 End: 04-10-2024 Exposure to SARS-CoV-2 (event) Not sure [facility] Start: 1955 Sex Assigned At Female F [facility] Tobacco smoking status Never [facility] [place] Start: 10-06-2023 End: 02-14-2024 Alcoholic beverage intake Lifetime non-drinker (finding) [facility] Start: 10-04-2022 Alcohol Comment Caffeine intak e: none [facility] NEGATED: Highlighted row - - OD-Dvydanzqszgiso-Cz m in [place] [address] Work Phone: Medical Equipment Procedure Code Equipment Code Equipment Origin al Text Equipment Identifier Dates Pen [place] 32G X 4 MM Start: 02-01-2023 Laser Sanjiv craft Hwg 500 Fiber Case [id number] Start: 03-19-2021 Comment on above: Description: Convert ed from [facility]. Please see archived information for full log information. Additional Information:per bill only jdr 03/28/2021 1456pm Functional Status Date Assessment Result Facility 06-03-2023 Functional Status N/A [facility] [place] NEGATED: Highlighted row Functional performance Functional status health issues are not documented Disease NM-Dmnpgaexfsftrk-L in [place] [address] Work Phone: Mental Status Date Assessment Result Facility NEGATED: Highlighted row Cognitive function [Interpretation] Cognitive status health issues are not documented Disease TY-Houbuitpjtlrzk-M [facility] 0260 Work Phone: Clinical Notes 03-03-2021 to 04-10-2024 Assessment & Plan Note - Dominic Saldana MD - 04/10/2024 8:20 AM ESTAssessment & Plan Note - Dominic Saldana MD - 04/10/2024 8:20 AM Leland Saldana MD - 04/10/2024 8:20 AM EST Note Date & Type Note Facility 04-10-2024 Evaluation + Plan note Associated Problem(s): Hypothyroidism Orders: Thyroid Stimulating Hormone; Future Thyroid Peroxidase (TPO) Antibody; Future Thyroxine, Free; Future [facility] Work Phone: 04-10-2024 Evaluation + Plan note Associated Problem(s): Diabetes (Multi) Orders: Hemoglobin A1C; Future [facility] Work Phone: 04-10-2024 History of Present illness Narrative Patient is sent at the request of No ref. provider found for my opinion regarding Type 2 diabetes. My final recommendations will be communicated back to the requesting provider by way of shared medical record. Subjective Bette Villafana is a 68 y.o. female who presents for initial visit for evaluation of Type 2 diabetes mellitus. The initial diagnosis of diabetes was made in 2022 . At diagnosis it was 6.6%. The patient does have a known family history of diabetes. Father and brothers. One brother had kidney cancer and had to take the adrenal glands both out October 2023 6% In 2021 started ozempic in April lost 25 lbs. 0.25 mg initially currently on 0.5 mg (for around 6 months) Had a GB attack had cholecystectomy May 2023. In 2022 UTI and pyelonephropathy Jun 2022: 1.2 cm right adrenal nodule measuring 37 HU. Left adrenal gland unremarkable Current meds: Metformin 500 mg daily with lunch Ozempic 0.5 mg weekly Tuesday 3 bouts of diarrhea a week usually 1 hour of Metformin Levothyroxine 100 mcg daily takes appropriately Omeprazole 20 mg once daily since Jan before was BID Simvastatin 40 mg Venlafaxine 75 mg BID and risperidone Bipolar, sleep apnea on CPAP Was previously on phen 1978 Regular pepsi 4 a day The patient is not currently checking the blood glucose 0 times per day. 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 Eggs with 1-2 toasts Lunch: pizza 2 pieces Pork chops, tacos, lasagna , beef roast Snack: pepsi and chips. Numbness tingling in hands No proximal weakness No easy bruising Foot size grew 1/2 size Hot flashes and night sweats Eenrgy low. Tried to exercise but cannot breath and gets tired Echo normal Restrictive lung disease Breast and kidney cancer in family Foot Exam: No numbness or tingling Eye Exam: summer no retinopathy started cataracts Lipid Panel: On simvastatin 40 mg Urine Albumin: UACR neg in October 2023 Review of Systems all pertinent systems reviewed and are otherwise negative Objective BP 123/75 (BP Location: Right arm, Patient Position: Sitting, BP Cuff Size: Large adult) Pulse 77 Temp 36.6 C (97.9 F) Ht 1.626 m (5' 4 ) Wt 120 kg (265 lb) BMI 45.49 kg/m Physical Exam Constitutional: General: She is not in acute distress. Appearance: Normal appearance. She is obese. HENT: Head: Normocephalic and atraumatic. Eyes: Extraocular Movements: Extraocular movements intact. Pupils: Pupils are equal, round, and reactive to light. Cardiovascular: Rate and Rhythm: Normal rate and regular rhythm. Pulmonary: Effort: Pulmonary effort is normal. No respiratory distress. Breath sounds: Normal breath sounds. Abdominal: General: Bowel sounds are normal. Palpations: Abdomen is soft. Tenderness: There is no abdominal tenderness. Skin: Coloration: Skin is not jaundiced or pale. Findings: No erythema or rash. Neurological: General: No focal deficit present. Mental Status: She is alert and oriented to person, place, and time. Deep Tendon Reflexes: Reflexes normal. Psychiatric: Mood and Affect: Mood normal. Behavior: Behavior normal. Lab Review Glucose (mg/dL) Date Value 03/13/2021 95 Bicarbonate (mmol/L) Date Value 03/13/2021 28 Urea Nitrogen (mg/dL) Date Value 03/13/2021 19 Creatinine (mg/dL) Date Value 03/13/2021 0.77 No results found for: CHOL No results found for: HDL No results found for: LDLCALC No results found for: TRIG No components found for: CHOLHDL No results found for: TSH No results found for: ALBUR , [id number] Health Maintenance: Assessment/Plan Bette Villafana is a 68 y.o. female who presents for initial visit for evaluation of Type 2 diabetes mellitus. The initial diagnosis of diabetes was made in 2022. At diagnosis it was 6.6%. The patient does have a known family history of diabetes. Father and brothers. One brother had kidney cancer and had to take the adrenal glands both out October 2023 6% In 2021 started ozempic in April lost 25 lbs. 0.25 mg initially currently on 0.5 mg (for around 6 months) Had a GB attack had cholecystectomy May 2023. In 2022 UTI and pyelonephropathy Jun 2022: 1.2 cm right adrenal nodule measuring 37 HU. Left adrenal gland unremarkable Current meds: Metformin 500 mg daily with lunch Ozempic 0.5 mg weekly Tuesday 3 bouts of diarrhea a week usually 1 hour of Metformin Levothyroxine 100 mcg daily takes appropriately Omeprazole 20 mg once daily since Jan before was BID Simvastatin 40 mg Venlafaxine 75 mg BID and risperidone Bipolar, sleep apnea on CPAP Was previously on phen 1978 Regular pepsi 4 a day The patient is not currently checking the blood glucose 0 times per day. Numbness tingling in hands No proximal weakness No easy bruising Foot size grew 1/2 size Hot flashes and night sweats Eenrgy low. Tried to exercise but cannot breath and gets tired Echo normal Restrictive lung disease Breast and kidney cancer in family Foot Exam: No numbness or tingling Eye Exam: summer no retinopathy started cataracts Lipid Panel: On simvastatin 40 mg Urine Albumin: UACR neg in October 2023 Plan: Blood work today Dexamethasone suppression test next week Dexamethasone suppression test -take 1mg of dexamethasone around 10- 11 pm -the following morning, around 8am (Time sensitive) you should go to the lab and get your bloodwork done -this test is best done if you got good sleep at night and you follow your usual night routing CT adrenals with and without contrast For diabetes and weight Increase ozempic to 1 mg If continues have issues with diarrhea stop metformin We discussed with patient dietary changes RTC in 4 months Assessment & Plan Adrenal nodule Orders: Adrenocorticotropic Hormone (ACTH); Future Cortisol; Future DHEA-Sulfate; Future Renal Function Panel; Future Metanephrines Plasma; Future Catecholamines, Fractionated, Plasma; Future Thyroid Stimulating Hormone; Future Thyroid Peroxidase (TPO) Antibody; Future Thyroxine, Free; Future Adrenocorticotropic Hormone (ACTH); Future Cortisol AM; Future Dexamethasone; Future dexAMETHasone (Decadron) 1 mg tablet; Take 1 tablet (1 mg) by mouth 1 time for 1 dose. -take 1mg of dexamethasone around 10- 11 pm, blood work at 8am DHEA-Sulfate; Future CT adrenals w and wo IV contrast; Future Hypothyroidism, unspecified type Orders: Thyroid Stimulating Hormone; Future Thyroid Peroxidase (TPO) Antibody; Future Thyroxine, Free; Future Type 2 diabetes mellitus without complication, without long-term current use of insulin (Multi) Orders: Hemoglobin A1C; Future . documented in this encounter [facility] Work Phone: 04-10-2024 Instructions Dominic Saldana MD - 04/10/2024 8:20 AM EST Blood work today Dexamethasone suppression test next week Dexamethasone suppression test -take 1mg of dexamethasone around 10- 11 pm -the following morning, around 8am (Time sensitive) you should go to the lab and get your bloodwork done -this test is best done if you got good sleep at night and you follow your usual night routing CT adrenals with and without contrast For diabetes and weight Increase ozempic to 1 mg If you continue have issues with diarrhea stop metformin 1.Recommended Plate method - 1/2 of plate w/ veggies/fruits - 1/4 of plate w/ lean proteins - 1/4 of plate w/ carbs 2. Each meal should have 3-4 oz of lean protein - Limit red meat 3. Avoid processed foods 4. Increase your water intake- shoot for 1/2 of your body weight in oz 5. Weigh yourself at least weekly (in the morning) 6. Get at least 30mins of exercise daily (total of 200 min per week) 7. Don't forget about the weights: weight training can boost your metabolism/ help burn fat and build muscle 8. Sleep is important for weight loss aim for at least 7hrs documented in this encounter [facility] Work Phone: 04-10-2024 Miscellaneous Notes Associated Problem(s): Hypothyroidism Orders: Thyroid Stimulating Hormone; Future Thyroid Peroxidase (TPO) Antibody; Future Thyroxine, Free; Future Associated Problem(s): Diabetes (Multi) Orders: Hemoglobin A1C; Future documented in this encounter [facility] Work Phone: 03-05-2024 Telephone encounter Note [facility] office called and stated that they tried to contact the patient to schedule appt for the referral that was sent to them but tired to two weeks to contact and is unable to get ahold of them. [facility] 03-05-2024 Miscellaneous Notes [facility] office called and stated that they tried to contact the patient to schedule appt for the referral that was sent to them but tired to two weeks to contact and is unable to get ahold of them. documented in this encounter [facility] 02-21-2024 History of Present illness [...] of any inflammation. documented in this encounter [facility] Work Phone: 02-14-2024 History of Present [...] Do you have a medical power of executive pilot?: No Objective : BP 128/66 Pulse 81 [...] complication, without long-term current use of insulin ([facility]/HCC) We discussed today, the importance of proper [...] 16. Bipolar 1 disorder, depressed, partial remission (CMS/HCC) This is a chronic medical condition that is stable since last assessment. No changes in treatment are suggested at this time. 17. Mixed hyperlipidemia (CMS/HCC) This is a chronic medical condition that is stable since last assessment. No changes in treatment are suggested at this time. - Lipid panel; Future - Lipid panel - CT heart calcium scoring wo IV contrast 18. Lipoprotein deficiency disorder (CMS/HCC) This is a chronic medical condition that is stable since last assessment. No changes in treatment are suggested at this time. 19. Routine general medical examination at health care facility Reviewed all relevant preventative screenings with [...] February 14, 2024 documented in this encounter [facility] 06-07-2023 Evaluation note Encounter Date [...] was counseling done by myself, Moira NICHOLS. [employer] Other 10-24-2023 History of Present illness Narrative* [...] evidence of any inflammation. [facility]: 1(254) 506-741110-17-2023 Evaluation note* Encounter Date Diagnosis Assessment Notes [...] other veggie/fruit w/ dinner; PARTIALLY MET, ON-GOING [employer] Other 10-03-2023 Evaluation note* Encounter Date Diagnosis Assessment Notes Treatment Notes Treatment Clinical Notes Jan, Obesity (ICD-10 - E66.9) fir st sent [...] was counseling done by myself, Moira NICHOLS. [employer] Other 08-23-2023 Evaluation note* Encounter Date Diagnosis [...] beans, salad or other veggie/fruit w/ dinner [employer] Other 06-20-2023 Evaluation note* Encounter Date Diagnosis [...] patient set personal goal using given handout. [employer] Other 06-20-2023 Evaluation note* Encounter Date Diagnosis Assessment Notes Treatment Notes Treatment Clinical Notes Sep, Obesity (ICD-10 - E66.9) [facility] sent wrong diagnosis code, then sent to non preferred pharmacy. Sent to [facility] per [facility] preferred. Sep, BMI 40.0-44.9, adult (ICD-10 [...] was counseling done by myself, Moira NICHOLS. [employer] Other 03-28-2023 Evaluation note* Encounter Date Diagnosis Assessment Notes Treatment Notes Treatment Clinical Notes Jun, Obesity (ICD-10 - E66.9) [facility] sent wrong diagnosis code, then sent to non preferred pharmacy. Sent to [facility] per [facility] preferred. Jun, BMI 40.0-44.9, adult (ICD-10 - [...] was counseling done by myself, Moira NICHOLS. [employer] Other 02-14-2023 Evaluation note* Encounter Date Diagnosis [...] patient set personal goal using given handout. [employer] Other 01-31-2023 Evaluation note* Encounter Date Diagnosis Assessment Notes Treatment Notes Treatment Clinical Notes May, Obesity (ICD-10 - E66.9) first sent wrong diagnosis code, then sent to non preferred pharmacy. Sent to [facility] per [facility] preferred. May, BMI 40.0-44.9, adult (ICD-10 [...] was counseling done by myself, Moira NICHOLS. [employer] Other 01-31-2023 History of Present illness Narrative* [...] * 5. Follow-up after testing is done [facility] [employer] DO Work Phone: 1(314) 631-977111-02-2021 History of Present illness NarrativeThis patient presented [...] and is very pleased with the results. [facility] Work Phone: 1([phone]) 111-502611-02-2021 History of Present illness NarrativeThis patient presented [...] today for follow-up. Her breathing has remained stable.[facility] Work Phone: chief complaint Narrative - Yoandy VILLAFANA is being seen for a consultation for [facility] [employer] DO Work Phone: Evaluation + Plan note No data available for this section [facility] Future Appointments Appointment Date:06/14/2023 02:20:00 PM Scheduled Provider:Mayito YANG MD Location:[facility] Appointment Type:[facility] [address] [facility] General Surgery [place] evaluation noteNo InformationNort [employer] Other evaluation note* Diagnosis Tracheal stenosis- Primary Other diseases of trachea and bronchus documented in this encounter [facility] Work Phone: Evaluargvo noteNo assessment information available [facility] Work Phone: evaluation note* Diagnosis Onset Date Resolution Status Abnormal CT of the abdomen a cute Acid reflux acute Adrenal abnormality acute Anxiety and depression acute Bipolar disorder acute BMI 40.0-44.9, adult acute Diabetes type 2, uncontrolled acute Fatigue acute Fatty pancreas acute Hyperlipidemia acute Hypertriglyceridemia acute Hypothyroid acute Obesity acute RYANNE (obstructive sleep apnea) acute Snores acute Vitamin D deficiency acute [facility] Work Phone: evaluation note* Diagnosis Onset Date Resolution Status Abnormal [...] deficiency acute Allergies acute Sore throat noneactive [facility] Work Phone: evaluyfzfm note* Diagnosis Onset Date Resolution Status Abnormal [...] acute Snores acute Vitamin D deficiency acute [facility] Work Phone: Evaluation note* Diagnosis Onset Date [...] acute Snores acute Vitamin D deficiency acute [facility] Work Phone: Evaluation note* Diagnosis Medicare annual [...] specified complication (CMS/HCC) documented in this encounter [facility] Healthcare[facility]* Diagnosis Tracheal stenosis- Primary Other diseases of trachea and bronchus Gastroesophageal reflux disease without esophagitis Esophageal reflux documented in this encounter [facility] Work Phone: Evaluation note* Diagnosis Adrenal nodule- Primary Benign neoplasm of adrenal gland Hypothyroidism, unspecified type Type 2 diabetes mellitus without complication, without long-term current use of insulin (Multi) documented in this encounter [facility] Work Phone: History general Narrative - Reported* Type Description Date Medical History thyroid disease Medical History Cholesterol Medical History depression Medical History acid reflux Medical History bipolar Surgical History breast reduction Surgical History throat surgery Surgical History hernia Hospitalization History see surgical hx [facility] [employer] Other Hisrsen general Narrative - Reported* Type Description Date Medical History thyroid disease Medical History Cholesterol Medical History depression Medical History acid reflux Medical History bipolar Surgical History breast reduction Surgical History throat surgery Surgical History hernia Hospitalization History see surgical hx Hospitalization History [facility] ER 07/2022 [employer] [facility] [employer] Other Hisllnb general Narrative - Reported* Type Description Date Medical History thyroid disease Medical History Cholesterol Medical History depression Medical History acid reflux Medical History bipolar Medical History gall bladder disease Surgical History breast reduction Surgical History throat surgery Surgical History hernia Surgical History [facility] 05-16-2023 Hospitalization History see surgical hx Hospitalization History [facility] ER 07/2022 [facility] [employer] Other History of Present illness NarrativeThis patient [...] time it feels like it is somewhat ojjzditqKX-Yfnajlsyevpmhh-[facility] Work Phone: Hospital Discharge instructions No data available for this section [facility] Additional Instructions Follow-up with your primary care doctor Return to ED if develop worsening symptoms [facility] Work Phone: Progress note No data available for this section [facility] General Surgery [place] Family History No Family History Records Found [...] 3 Fatty pancreas (K86. 89) Referral Organization [facility] Referring Provider First Name Lilliam [...] Vitamin D deficiency Chief Complaint Cholecystitis Obesity BH Follow Up left arm pain Chief Complaint Cholecystitis Obesity Follow Up left arm pain Additional Source Comments INFORMATION SOURCE (unrecogn ized section and content) DATE CREATED AUTHOR 06/02/2022 [facility] DATE CREATED AUTHOR AUTHOR'S ORGANIZ ATION 06/02/2022 [employer] DATE CREATED AUTHOR AUTHOR'S ORGANIZ ATION 09/09/2022 [facility] DATE CREATED AUTHOR AUTHOR'S ORGANIZ ATION 06/10/2023 [place] [facility] DATE CREATED AUTHOR AUTHOR'S ORGANIZ ATION 02/16/2024 [facility] DATE CREATED AUTHOR AUTHOR'S ORGANIZ ATION 04/20/2024 [facility] DATE CREATED AUTHOR AUTHOR'S ORGANIZ ATION 04/23/2024 [facility] DATE CREATED AUTHOR AUTHOR'S ORGANIZ ATION 05/14/2024 [facility] REASON FOR VISIT (unrecogniz ed section and content) Reason Comments Follow-up Reason Comments Medicare Annual Wellness Visit Subsequen t Med Refill Metformin, levothyro xine,simvastain--[facility] Reason Comments Diabetes Care Teams (unrecognized sec tion and content) Team Status: Active Member Role Status Melvin Hilton II MD Primary Care Provider Active Team Status: Inactive Member Role Status Melvin Hilton II MD Primary Care Provider Active Start: July 05, 2023 End: July 05, 2023 LLOYD Kenyon Attending Provider Active Start: July 05, 2023 [...] 05, 2023 End: October 05, 2023 Maricel SAUNDERS APRN Attending Provider Active Start: October 05, 2023 [...] December 20, 2023 End: December 20, 2023 Commutator Operator Relationship Specialty Start Date End Date Bello Hilton MD [address] [facility] [address] [place] [address] PCP - General Internal Medicine 09/21/22 Commutator Operator Relationship Specialty Start Date End Date Bello Hilton MD [address] [facility] [address] [place] [address] PCP - General Internal Medicine 09/21/22 Commutator Operator Relationship Specialty Start Date End Date Bello Hilton MD [address] [facility] [address] [place] [address] PCP - General Internal Medicine 02/21/24 Commutator Operator Relationship Specialty Start Date End Date Belol Hilton MD [address] [facility] [address] [place] [address] PCP - General Internal Medicine 09/21/22 Commutator Operator Relationship Specialty Start Date End Date Bello Hilton MD [address] [facility] [address] [place] [address] PCP - General Internal Medicine 09/21/22 Commutator Operator Relationship Specialty Start Date End Date Bello Hilton MD [address] [facility] [address] [place] [address] PCP - General Internal Medicine 02/21/24 Goals (unrecognized section and content) Goals may [...] BE BASED ON THE PRIMARY CLINICAL RECORDS. [employer]. provides no warranty or guarantee of the accuracy or completeness of information in this document.
== END 2024-05-30 12:51 | disposition home or self-care (01) ==
LOC: MAMMO 12:50
PROVIDERS: PCP Internal Medicine; Visit Provider Internal Medicine
DX: Z12.31 Encounter for screening mammogram for malignant neoplasm of breast (principal); Z80.3 Family history of malignant neoplasm of breast; Z80.51 Family history of malignant neoplasm of kidney
CPT/HCPCS: 77063; 77067

== ENCOUNTER 2024-10-02 14:07 | Outpatient (OUT) | payer MEDICARE, OTHER, SELFPAY ==
[2024-10-02 15:15] LABS: Thyroid Stimulating Hormone 2.837 uIU/mL (0.358-3.740)
[2024-10-02 15:28] LABS: Free T4 1.23 ng/dL (0.76-1.46)
[2024-10-05 18:10] LABS: IGF-1 80 ng/mL (52-196)
== END 2024-10-02 14:08 | disposition home or self-care (01) ==
PROVIDERS: PCP Internal Medicine; Visit Provider Student in an Organized Health Care Education/Training Program
DX: E03.9 Hypothyroidism, unspecified (principal); E66.813 Obesity, class 3; E66.01 Morbid (severe) obesity due to excess calories; Z68.41 Body mass index [BMI] 40.0-44.9, adult
CPT/HCPCS: 36415; 84305; 84439; 84443

== ENCOUNTER 2025-02-02 11:43 | Outpatient (OUT) | payer MEDICARE, OTHER, SELFPAY ==
--- OUTSIDE RECORDS SUMMARY | 2025-02-02 11:46 | XMS_ITS | CCD ---
Author Organization [facility] CliniSynv Care Team Providers Care Tacking Stitch Remover Name Role Phone Ronnie Murphy Unavailable Unavailable [...] DR JOSHI Primary Care Unavailable HEMMER, DR ZULMA Greenberg Attending Unavailable HEMMER, DR ZULMA Greenberg Admitting Unavailable HEMMER, DR ZULMA Greenberg Consulting Unavailable SCALLY, LILLIAM Admitting Unavailable MISC, DR GONZALEZ Primary Care Unavailable SCALLY, LILLIAM Attending Unavailable SCALLY, LILLIAM Consulting Unavailable MISC, DR GONZALEZ Primary Care Unavailable MAYCO RENEE Attending Unavailable MAYCO RENEE Consulting Unavailable MAYCO RENEE Admitting Unavailable ANASTACIO BARBOZA Consulting Unavailable Newatia, Zeyad Consulting Unavailable Unavailable Primary Care Provider Unavailabl e Guerita, ECONOMIC GEOGRAPHER Lilliam C Attending Provider TANESHA Hilton Primary Care Provider MD Mayito Yang Attending Provider BELLO HILTON Primary Care Physician [phone] Emiliano Lagos Attending Unavailable Mayito YANG Attending Unavailable SHAIKH CORDOBA Referring Unavailable Mayito YANG Attending Unavailable Hilton, II Bello Primary Care Provider MD Mayito Yang Attending Provider ORVILLE Dexter Attending Provider DO Serg Boucher Emergency Provider [phone] MD Ben Wasserman Attending Provider Yobani, II Bello Primary Care Provider ORVILLE Dexter Attending Provider Hilton, II Bello Primary Care Provider MD Ben Wasserman Attending Provider Bello Hilton MD Primary Care Provider Bello Hilton MD Primary Care Provider Yobani II Bello Primary Care Provider Ben Wasserman MD Attending Provider RONNIE MURPHY Attending Unavailable YOBANI BELLO B Primary Care Unavailable KORTBAWI, ROUBA Attending Unavailable YOBANI BELLO B Primary Care Unavailable KORARIANAAWI, ROUBA Attending Unavailable BELLO HILTON B Primary Care Unavailable YOBANI BELLO B Primary Care Unavailable CRISTINA HUBBARD Referring Unavailable YOABNI BELLO B Primary Care Unavailable Cora BUI, Cristina Greenberg Unavailable [phone] ZULMA MOE Attending Unavailable CRISTINA HUBBARD Attending Unavailable DENISE SÁNCHEZ Attending Unavailable CRISTINA HUBBARD Attending Unavailable Hilton II Bello Primary Care Provider Lilliam Dexter APRN Attending Provider Ben Wasserman MD Attending Provider [phone] Caryl Meléndez MD Attending Provider [phone] Caryl Meléndez Admitting Unavailable Caryl Meléndez Attending Unavailable Bello Hilton Primary Care Unavailable Bello Hilton Primary Care Unavailable Ben Wasserman Admitting Unavailab Ben Melendez Attending Unavailab Bello Yost II Primary Care Provider [phone] Lilliam Dexter APRN Attending Provider Maricel Shultz RD Attending Provider Unavailable Allergies Allergy Classification Reported Allergen(s) Allergy Type Date of Onset Reaction(s) Facility (1 source) No Known Medication Allergies; Translations: [No Known Medication Allergies] Propensity to adverse reactions (disorder) [facility] Repository Medications Current Medications Medication Drug [...] weekly for 30 days E11 Rx Bin [id number], Group: [id number], PCN 3F, ID: [id number] Sep, Active Mounjaro 2.5 MG/ 0.5ML as directed Subcutaneous weekly for 30 days E11 Rx Bin [id number], Group: [id number], PCN 3F, ID: [id number]-- NOT covered Not-Taking Mounjaro 2.5 MG/ 0.5ML as directed Subcutaneous weekly for 30 days E11 Rx Bin [id number], Group: [id number], PCN 3F, ID: [id number]-- NOT covered Active azithromycin 250 mg oral [...] 4 days. 6 tablet 02/14/2024 02/19/2024 Active cholecalciferol 0.05 mg oral capsule (20 sources) Vitamin D Start: 08-01-2023 take 1 capsule by mouth once daily cholecalciferol (Vitamin D-3) 50 MCG (2000 UT) capsule Take 2,000 Units by mouth Daily 08/01/2023 Active Start: 08-01-2023 End: 10-19-2023 take 1 capsule by mouth once daily Cholecalciferol (Vitamin D3) 50 mcg (2,000 unit) capsule Discontinued 50 MCG PO Daily August 01, 2023 12:00am October 19, 2023 11:08am Vitamin D3 1.25 MG (47370 UT) TAKE 1 CAPSULE BY MOUTH WEEKLY FOR 56 DAYS for 56 Not-Taking/PRN take 1 capsule by [facility] every twenty-four hours Vitamin D3 50 MCG (2000 UT) 1 capsule Orally Once a day Active take 1 capsule by [facility] once daily Cholecalciferol 1.25 MG (45161 UT) 1 capsule Orally weekly for 56 days when complete take 4000 u daily OTC Not-Taking/PRN take 1 capsule by [facility] once daily Cholecalciferol 1.25 MG (01262 UT) 1 capsule Orally weekly for 56 days when complete take 4000 u daily OTC Active dexamethasone 1 mg oral tablet (18 sources) Corticosteroid Start: 04-10-2024 take 1 tablet by mouth once in the evening dexAMETHasone (Decadron) 1 mg tablet Indications: Adrenal nodule Take 1 tablet (1 mg) by mouth 1 time for 1 dose. -take 1mg of dexamethasone around 10- 11 pm, blood work at 8am 1 tablet 04/10/2024 Active Start: 04-20-2020 take 1 tablet by [facility] every twenty-four hours dexAMETHasone 6 MG 1 tablet Orally Once a day for 5 day(s) Apr, Not-Taking/PRN hydrocortisone 10 mg/ml / neomycin 3.5 mg/ml / polymyxin b [id number] unt/ml otic suspension (4 sources) Aminoglycoside Antibacterial, Polymyxin-class Antibacterial, Corticosteroid Start: 09-03-2024 End: 09-18-2024 tciufhzd-porhzitfq-rldrigggz isone (Cortisporin) 3.5-81887-0 otic suspension Indications: Other infective acute otitis externa of right ear Administer 3 drops into the right ear in the morning and 3 drops at noon and 3 drops in the evening and 3 drops before bedtime. Do all this for [address] in affected ear. 10 mL 09/03/2024 09/18/2024 Discontinued (Other) levothyroxine sodium 0.1 mg oral tablet (20 sources) l-Thyroxine Start: 05-18-2023 take 1 tablet by mouth once daily levothyroxine 100 mcg (0.1 mg) Tab 100 mcg = 1 tab(s), Oral, Daily, Refills(s) 0 Start Date: 05/18/23 Status: Ordered Start: 01-09-2021 take 1 tablet by [facility] once daily Levothyroxine 100 mcg tablet Active 100 MCG PO Daily August 01, 2023 12:00am Complies with drug therapy Start: 01-09-2021 Levothyroxine Sodium 100 MCG Oral [...] 0 Refills: 0 Ordered: 11-Dec-2013 DO Active meclizine hydrochloride 25 mg oral tablet (8 sources) Antiemetic Start: 09-03-2024 End: 09-03-2024 take 1 tablet by mouth three times daily as needed for dizziness meclizine (Antivert) 25 MG tablet Indications: Dizziness Take 1 tablet (25 mg) by mouth 3 (three) times a day as needed for dizziness 30 tablet 09/03/2024 Active metFORMIN hydrochloride 500 mg oral tablet (20 sources) Biguanide Start: 08-20-2024 take 1 tablet by mouth once daily at mealtime metFORMIN (Glucophage) 500 MG tablet Indications: Type 2 diabetes mellitus without complication, without long-term current use of insulin TAKE 1 TABLET BY MOUTH EVERY DAY WITH A MEAL 100 tablet 3 08/20/2024 Active Start: 05-15-2023 End: 07-04-2024 take 1 tablet by mouth once daily Metformin 500 mg tablet Discontinued 500 MG PO Daily August 01, 2023 12:00am July 04, 2024 3:09pm take 1 tablet by [facility] twice daily metFORMIN (Glucophage) 500 mg tablet Take 1 tablet (500 mg) by mouth 2 times daily (morning and late afternoon). Active methylPREDNISolone (2 sources) Corticosteroid Start: 02-14-2024 End: 02-21-2024 methylPREDNISolone (Medrol Dospak) 4 MG tablets Indications: Acute bronchitis, unspecified organism Follow schedule on package instructions 21 tablet 02/14/2024 02/21/2024 Active omeprazole 20 mg delayed release oral capsule (20 sources) Proton Pump Inhibitor Start: 12-13-2024 take 1 capsule by mouth once daily Omeprazole 20 mg capsule,delayed release(DR/EC) Active 20 MG PO Daily December 13, 2024 9:19am Complies with drug therapy Start: 08-02-2019 End: 12-13-2024 take 1 capsule by mouth twice daily Omeprazole 20 mg capsule,delayed release(DR/EC) Discontinued 20 MG PO Twice daily August 01, 2023 12:00am December 13, 2024 9:19am Start: 05-11-2018 take 1 tablet by poli [...] mg Subcutaneous weekly for 90 days Active Respiratory Therapy Supplies (CareTouch CPAP & BIPAP Hose) [facility] (4 sources) Start: 09-18-2024 End: 09-18-2025 Respiratory Therapy Supplies (CareTouch CPAP & BIPAP Hose) [facility] Indications: BiPAP (biphasic positive airway pressure) dependence 1 Dose at bedtime 1 each 1 09/18/2024 09/18/2025 Active Respiratory Therapy Supplies (Reusable Comfortseal Mask-MED) [facility] (4 sources) Start: 09-18-2024 Respiratory Th erapy Supplies (Reusable Comfortseal Mask-MED) [facility] Indications: BiPAP (biphasic positive airway pressure) dependence 1 Device at bedtime Mirage Activa LT Mask Eak-IKGT-YthCvl for CPAP 1 each 1 09/18/2024 Active risperiDONE 2 mg oral tablet (20 sources) Atypical Antipsychotic Start: 11-28-2014 risperi DONE 2 MG Oral Tablet Quantity: 30 Refills: 0 Ordered: 17-Jan-2015 DO Start : 28-Nov-2014 Active Start: 12-25-2012 take 1 tablet by poli once daily Risperidone 2 mg tablet Active 2 MG PO Daily August 01, 2023 12:00am Complies with drug therapy 0.25 mg, 0.5 mg dose 1.5 ml semaglutide 1.34 mg/ml pen injector (20 sources) End: 02-22-2023 inject 0.25 mg by subcutaneous injection every week semaglutide (Ozempic, 0.25 or 0.5 MG/DOSE,) 2 MG/1.5ML solution pen-injector Inject 0.25 mg under the skin 1 (one) time per week. Active Ozempic (0.25 or 0.5 MG/DOSE) 2 MG/1.5ML SOPN weekly Quantity: 0 Refills: 0 Ordered: 01-Jun-2022 DO Active Semaglutide (5 sources) Start: 11-07-2024 inject 1 mg by subcutaneous in jection every week Start: 11-07-2024 inject 1 mg by subcu taneous injection every week Semaglutide (Ozempic) 1 mg/dose (4 mg/3 mL) pen injector Active 1 MG SUBCUT every week November 07, 2024 12:00am Complies with drug therapy simvastatin 40 mg oral tablet (20 sources) HMG-CoA Reductase Inhibitor Start: 04-04-2023 take 1 tablet by mouth once daily Simvastatin 40 mg tablet Active 40 MG PO Daily August 01, 2023 12:00am Complies with drug therapy Simvastatin 40 M G Oral Tablet Quantity: 0 Refills: 0 Ordered: 11-Dec-2013 DO Active venlafaxine 75 mg oral tablet (20 sources) Serotonin and Norepinephrine Reuptake Inhibitor Start: 08-01-2023 take 1 tablet by mouth twice daily Venlafaxine 75 mg tablet Active 75 MG PO Twice daily August 01, 2023 12:00am Complies with drug therapy Start: 05-15-2023 Effexor XR 75 mg Cap-ER 75 mg = 1 cap(s), Oral, BID, Oral, 0 Refill(s), Refills(s) 0 Start Date: 05/15/23 Status: Ordered take 1 capsule by [facility] every twenty-four hours in the morning venlafaxine XR (Effexor XR) 75 MG 24 hr capsule Take 75 mg by mouth in the morning and 75 mg before bedtime. Active Effexor 75 MG TA BS Quantity: 0 Refills: 0 Ordered: 11-Dec-2013 DO Active Completed/Discontinued Medications Medication Drug Class(es) Dates Sig (Normalized) Sig (Original) acetaminophen 325 mg / HYDROcodone bitartrate 5 mg oral tablet (13 sources) Opioid Agonist Start: 08-06-2023 End: 08-09-2023 take 1 tablet by mouth every four to six hours as needed for pain Hydrocodone-Aceta minophen 5-325 mg tablet Discontinued 1 TAB PO EVERY 4-6 HOURS as needed for pain 10 August 06, 2023 August 09, 2023 11:41am dextromethorphan hydrobromide 30 mg / pyrilamine maleate 30 mg oral tablet (16 sources) Uncompetitive U-ohqpdg-L-aspartat e Receptor Antagonist, Sigma-1 Agonist Start: 04-20-2020 take 1 tablet by mouth every six hours [place] DMT 30-30 MG 1 tablet Orally every [...] weekly for 30 days E11.65 Rx Bin [id number], Group: [id number], PCN 3F, ID: [id number]-- NOT covered Not-Taking/PRN predniSONE 50 mg oral tablet (13 sources) Start: 08-06-2023 End: 08-09-2023 take 1 tablet by mouth once daily Prednisone 50 mg tablet Discontinued 50 MG PO Daily 09 03August 06, 2023 12:00am August 09, 2023 11:41am Semaglutide (13 sources) Start: 06-20-2023 End: 11-07-2024 Semaglutide (Ozempic) 0.25 mg or 0.5 mg (2 mg/3 mL) pen injector Discontinued 0.5 MG SUBCUT every week June 20, 2023 1:00am November 07, 2024 1:47pm PAP approved thru Start: 06-20-2023 Semaglutide (O zempic) 0.25 mg or 0.5 mg (2 mg/3 mL) pen injector Active 0.5 MG SUBCUT every week June 20, 2023 1:00am PAP approved thru terbinafine 250 mg oral tablet (4 sources) Allylamine Antifungal Start: 09-25-2015 take 1 tablet by mouth once daily Terbinafine HCl - 250 MG Oral Tablet TAKE 1 TABLET EVERY DAY Quantity: 30 Refills: 0 Start : 25-Sep-2015 Active Problems Active Problems Problem Classification Problem Date Documented Da te Episodic/Chronic Acute bronchitis (18 sources) Acute bronchitis; Translations: [Acute bronchitis] 02-14-2024 Episodic Allergic reactions (14 sources) Allergic condition; Translations: [Allergy, unspecified, initial encounter] 10-05-2023 Episodic Anxiety disorders (20 sources) Mixed anxiety and depressive disorder; Translations: [Other specified anxiety disorders] Onset: 5 Chronic Chronic obstructive pulmonary disease and bronchiectasis (16 sources) Bronchitis; Translations: [Bronchitis, not specified as acute or chronic] Episodic Conditions associated with dizziness or vertigo (2 sources) Dizziness; Translations: [Dizziness and giddiness] 09-03-2024 Episodic Diabetes mellitus with complications (20 sources) [...] INFECTIONS] Onset: 3 Episodic Heart valve disorders (17 sources) Rheumatic disorders of both mitral and [...] Onset: 3 Chronic Other aftercare (1 source) jail (current) use of oral hypoglycemic drugs; Translations: [LOGISTICS OPERATIONS DIRECTOR USE ORAL HYPOGLYCEMIC DX] Onset: 3 Episodic Other aftercare (1 source) Other superintendent terminal (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; Translations: [OTH LOGISTICS OPERATIONS DIRECTOR CURRENT DRUG THERAPY] Onset: 3 Episodic Other and ill-defined heart disease (18 sources) Right ventricular systolic dysfunction; Translations: [Other ill-defined heart diseases] Onset: 3 09-21-2022 Chronic Other and ill-defined heart disease (18 sources) Left ventricular hypertrophy; Translations: [Cardiomegaly] Onset: 3 09-21-2022 Chronic Other and ill-defined heart disease (3 sources) Cardiomegaly; Translations: [Cardiomegaly] Onset: 5 08-22-2024 Chronic Other and ill-defined heart disease (3 sources) Heart disease; Translations: [Other ill-defined heart diseases] Onset: 5 08-22-2024 Chronic Other and ill-defined heart disease (1 source) Cardiomegaly; Translations: [Cardiomegaly] Onset: 5 Chronic Other and ill-defined heart disease (1 source) Other ill-defined heart diseases; Translations: [Other ill-defined heart diseases] Onset: 5 Chronic Other connective tissue disease (4 sources) Trigger finger of left hand; Translations: [Trigger finger, unspecified finger] 02-14-2024 Episodic Other ear and sense organ disorders (16 sources) Impacted cerumen; Translations: [Impacted cerumen] Episodic Other ear and sense organ disorders (2 sources) Impacted cerumen in right ear; Translations: [Impacted cerumen, right ear] 09-03-2024 Episodic Other ear and sense organ disorders (2 sources) Acute infective otitis externa; Translations: [Other infective otitis externa, right ear] 09-03-2024 Episodic Other endocrine disorders (20 sources) Disorder of adrenal gland; Translations: [Disorder of adrenal gland, unspecified] Onset: 5 08-01-2023 Chronic Other endocrine disorders (12 sources) Disorder of adrenal gland, unspecified; Translations: [Unspecified disorder of adrenal glands] Onset: 4 Chronic Other endocrine disorders (2 sources) Adrenal mass; Translations: [Disorder of adrenal gland, unspecified] 04-10-2024 Chronic Other gastrointestinal disorders (6 sources) Heartburn; Translations: [HEARTBURN] Onset: 3 Episodic Other gastrointestinal disorders (1 source) Diarrhea, unspecified; Translations: [DIARRHEA UNSPECIFIED] Onset: 3 Episodic Other gastrointestinal disorders (13 sources) Heartburn; Translations: [Heartburn] 08-01-2023 Episodic Other gastrointestinal disorders (1 source) Adrenal mass 04-15-2024 Episodic Other lower respiratory disease (12 sources) Snoring; Translations: [Other respiratory abnormalities] Episodic Other lower respiratory disease (13 sources) Snoring; Translations: [Snoring] 08-01-2023 Episodic Other lower respiratory disease (20 sources) Dyspnea on exertion; Translations: [Other forms of dyspnea] Onset: 3 09-21-2022 Episodic Other lower respiratory disease (1 source) Shortness of breath; Translations: [Shortness of breath] Onset: 5 Episodic Other non-traumatic joint disorders (13 sources) Pain in left shoulder; Translations: [Left shoulder pain] 08-06-2023 Episodic Other nutritional; endocrine; and metabolic disorders (20 sources) Body mass index 40+ - severely obese; Translations: [Morbid obesity] Onset: 3 01-23-2023 Chronic Other nutritional; endocrine; and metabolic disorders (20 sources) Obesity; Translations: [Obesity, unspecified] 08-01-2023 Chronic Other nutritional; endocrine; and metabolic disorders (20 sources) Obesity, unspecified; Translations: [Obesity, unspecified] Onset: 3 Chronic Other nutritional; endocrine; and metabolic disorders (18 sources) Body mass index (BMI) 40.0-44.9, adult; Translations: [Body Mass Index 40.0-44.9, adult] Onset: 5 Chronic Other nutritional; endocrine; and metabolic disorders (16 sources) Lipoprotein deficiency disorder; Translations: [Lipoprotein deficiency] Onset: 3 09-21-2022 Chronic Other nutritional; endocrine; and metabolic disorders (14 sources) Morbid obesity; Translations: [Morbid (severe) obesity due to excess calories] Onset: 3 09-21-2022 Chronic Other nutritional; endocrine; and metabolic disorders (1 source) Severe obesity; Translations: [Class 3 severe obesity with serious comorbidity and body mass index (BMI) of 40.0 to 44.9 in adult, unspecified obesity type] 07-19-2024 Chronic Other nutritional; endocrine; and metabolic disorders (2 sources) Morbid (severe) obesity due to excess calories; Translations: [Morbid (severe) obesity due to excess calories (Multi)] Onset: 5 Chronic Other nutritional; endocrine; and metabolic disorders (14 sources) Abnormal weight gain; Translations: [Abnormal weight gain] 09-21-2024 Episodic Other screening for suspected conditions (not mental disorders or infectious disease) (20 sources) Echocardiogram abnormal; Translations: [Nonspecific (abnormal) findings on radiological and other examination of other intrathoracic organs] Onset: 3 Episodic Other upper respiratory disease (14 sources) Allergic rhinitis; Translations: [Allergic rhinitis, unspecified] Onset: 3 09-21-2022 Chronic Other upper respiratory infections (4 sources) Acute pharyngitis, unspecified; Translations: [Acute pharyngitis] 10-05-2023 Episodic Pancreatic disorders (not diabetes) (20 sources) Other specified diseases of pancreas; Translations: [Fatty pancreas] Onset: 3 Episodic Residual codes; unclassified (4 sources) Sleep apnea; Translations: [Unspecified sleep apnea] 05-18-2023 Chronic Residual codes; unclassified (20 sources) Obstructive sleep apnea syndrome; Translations: [Obstructive sleep apnea (adult) (pediatric)] Onset: 8 01-23-2023 Chronic Residual codes; unclassified (17 sources) Obstructive sleep apnea (adult) (pediatric); Translations: [Obstructive sleep apnea (adult)(pediatric)] Onset: 3 Chronic Residual codes; unclassified (18 sources) Dependence on biphasic positive airway pressure ventilation; Translations: [Dependence on other enabling machines and devices] Onset: 3 09-21-2022 Chronic Residual codes; unclassified (7 sources) Dependent edema; Translations: [Edema, unspecified] 11-08-2024 Episodic Residual codes; unclassified (7 sources) Impaired exercise tolerance; Translations: [Other general symptoms and signs] 11-08-2024 Episodic Thyroid disorders (20 sources) Hypothyroidism; Translations: [...] W/AND (SUSP) EXPOS COVID-19] Onset: 3 Unclassified (3 sources) Patient encounter status 02-14-2024 Unclassified (1 source) Obesity, class 3; Translations: [Obesity, class 3] Onset: 5 Unclassified (2 sources) R68.89 - Other general symptoms and signs,R60.9 - Edema, unspecified,Z68.42 - Body mass index [BMI] 45.0-49.9, adult Past or Other Problems Problem Classification Problem Date Documented Da te Episodic/Chronic Biliary tract disease (9 sources) Acute cholecystitis; Translations: [Acute cholecystitis] Onset: 06-03-2023 Resolved: 09-03-2024 Episodic Lymphadenitis (16 sources) Disorder of intra-abdominal lymph nodes; Translations: [Localized enlarged lymph nodes] Onset: 09-22-2022 09-22-2022 Episodic Other and unspecified benign neoplasm (16 sources) Tubular adenoma of colon; Translations: [Benign neoplasm of colon, unspecified] Onset: 09-21-2022 09-21-2022 Episodic Other gastrointestinal disorders (20 sources) Dysphagia; Translations: [Dysphagia, unspecified] Onset: 01-23-2023 01-23-2023 Episodic Other gastrointestinal disorders (14 sources) Esophageal dysphagia; Translations: [Other dysphagia] Onset: 09-21-2022 09-21-2022 Episodic Other liver diseases (16 sources) Large liver; Translations: [Hepatomegaly, not elsewhere classified] Onset: 09-22-2022 09-22-2022 Episodic Other lower respiratory disease (8 sources) Dyspnea; Translations: [Other respiratory abnormalities] Onset: 01-23-2023 01-23-2023 Episodic Other lower respiratory disease (1 source) Other forms of dyspnea; Translations: [OTHER FORMS OF DYSPNEA] Onset: 05-13-2022 Episodic Other non-epithelial cancer of skin (14 sources) Basal cell carcinoma of cheek; Translations: [Basal cell carcinoma of skin of other parts of face] Onset: 09-21-2022 09-21-2022 Episodic Other upper respiratory disease (20 sources) Stenosis of trachea; Translations: [Other diseases of trachea and bronchus] Onset: 09-21-2022 02-22-2023 Episodic Other upper respiratory disease (2 sources) Other specified diseases of upper respiratory tract; Translations: [Other specified diseases of upper respiratory tract] Onset: 01-23-2023 Episodic Residual codes; unclassified (1 source) Localized edema; Translations: [LOCALIZED EDEMA] Onset: 05-13-2022 Episodic Residual codes; unclassified (1 source) Family history of malignant neoplasm of breast; Translations: [FAMILY HX MALIG NEOPLASM OF BREAST] Onset: 05-13-2022 Episodic Residual codes; unclassified (1 source) Family history of malignant neoplasm of kidney; Translations: [FAM HX MALIGNANT NEOPLASM KIDNEY] Onset: 05-13-2022 Episodic Residual codes; unclassified (19 sources) Never smoked any substance; Translations: [Other specified health status] Onset: 01-23-2023 01-23-2023 Episodic Residual codes; unclassified (16 sources) Edema of lower extremity; Translations: [Localized edema] Onset: 09-21-2022 09-21-2022 Episodic Unclassified (1 source) Exposure to 2019 novel coronavirus; Translations: [Contact with and (suspected) exposure to COVID19] Unclassified (3 sources) Never smoked tobacco; Translations: [Never a smoker] Unclassified (5 sources) Onset: 02-22-2023 02-22-2023 Unclassified (1 source) Obesity, class 3; Translations: [Obesity, class 3] Onset: 07-19-2024 NEGATED: Highlighted row has not occurred!Residual codes; unclassified (12 sources) Disease Episodic Results Test Name Value Interpretation Reference Range Facility [facility] ECG *CARDIOLOGY ONLY*on 12-13-2024 [facility] ECG *CARDIOLOGY ONLY* [facility] Main [place] [address] [place] [address] Electrocardiograph Report Signed Patient: Bette Villafana MR#: [id number] : 1955 Acct:[id number] Age/Sex: 69 / F ADM Date: 12/13/24 Loc: [facility] Room: Type: [facility] Attending Dr: Caryl Meléndez MD Ordering Provider: Caryl Meléndez MD Date of Service: 12/13/24 ECG/[facility] ECG *CARDIOLOGY ONLY*: R06.02 - Shortness of breath Copies to: Test Reason : Blood Pressure : */* mmHG Vent. Rate : 87 BPM Atrial Rate : 87 BPM P-R Int : 160 ms QRS Dur : 78 ms QT Int : 352 ms P-R-T Axes : 43 28 74 degrees QTcB Int : 423 ms Normal sinus rhythm Low voltage QRS Nonspecific T wave abnormality Abnormal ECG Confirmed by Caryl Meléndez ([id number]) on 12/14/2024 12:51:23 PM Referred By: Electronically Signed By: Caryl Meléndez Transcribed By: MUS Signed By Caryl Meléndez MD 5 [id number] Normal [facility] ALL THYROID STIM HORMONEon 0 10-02-2024 TSH Qn 2.837 m[IU]/L [facility] No Panel Informationon 09-03 SAMANTHA Bañuelos 09/03/2024 2:09 PM Ear Cerumen Removal Date/Time: 09/03/2024 1:55 PM Performed by: SAMANTHA Bañuelos Authorized by: SAMANTHA Bañuelos Consent: Consent obtained: Verbal Consent given by: Patient Risks, benefits, and alternatives were discussed: yes Risks discussed: Bleeding, infection, pain, TM perforation, incomplete removal and dizziness Alternatives discussed: No treatment, alternative treatment and referral Procedure details: Location: R ear Procedure type: curette Procedure type comment: Irrigation with warm water and hydrogen peroxide Procedure outcomes: cerumen removed Post-procedure details: Inspection: Ear canal clear and TM intact Hearing quality: Improved Procedure completion: Tolerated well, no immediate complications [facility] CARDIAC SCORING WO IV CON TRASTon 08-22-2024 CT CARDIAC SCORING WO IV CONTRAST Interpreted By: Sergio Pena, STUDY: CT CARDIAC SCORING WO IV CONTRAST; 08/22/2024 4:24 pm INDICATION: Signs/Symptoms:CAD Screening. COMPARISON: None. ACCESSION NUMBER(S): [id number] ORDERING CLINICIAN: INTERFACE UNSPECIFIELDPROVIDER TECHNIQUE: Using prospective ECG gating, CT scan of the coronary arteries was performed without intravenous contrast. Coronary calcium scoring was performed according to the method of Agatston. FINDINGS: The score and distribution of calcium in the coronary arteries is as follows: LM 0, LAD 0, LCx 2.77, RCA 0, Total 2.8 The visualized mid/lower ascending thoracic aorta measures 3.7 cm in diameter. The heart is normal in size. No pericardial effusion is present. No gross evidence of mediastinal or hilar lymphadenopathy or masses is identified. The visualized segments of the lungs are normally expanded. The visualized subdiaphragmatic structures appear intact. Multilevel degenerative changes in visualized portion of the thoracic spine. IMPRESSION: 1. Coronary artery calcium score of 2.8*. *Coronary artery calcium scoring may be helpful in predicting the risk for future coronary heart disease events. According to the [employer] Clinical Expert Consensus Task Force, such testing provides important prognostic information in patients with more than one coronary heart disease risk factor. The coronary artery calcium score correlates with the annual risk of a non-fatal myocardial infarction or coronary heart disease . Coronary artery score Annual Risk 0-99 0.4% 100-399 1.3% >400 2.4% These three breakpoints correspond to lower, intermediate and high risk states for future coronary events. Such information should be used, along with appropriate clinical judgment, to make decisions regarding the intensity of risk factor management strategies to treat blood lipids and to modify other non-lipid coronary risk factors. Reference: [place] P et al. Circulation. 2007; 115:402-426 MACRO: None Signed by: Masoodalverto Thornton Mark 08/23/2024 12:00 PM Dictation workstation: [id number] [facility] MM TOMOSYNTHESIS SCREENING B Ion 05-31-2024 [place] [address] Mammography Report Signed Patient: BETTE VILLAFANA MR#: [id number] : 1955 Acct:[id number] Age/Sex: 69 / F ADM Date: 05/30/24 Loc: MAMMO Attending Dr: BELLO HILTON Ordering Physician: BELLO HILTON Results: Date of Service: 05/30/24 Follow Up: Procedure(s): MM tomosynthesis screening BI Accession Number(s): [id number] cc: BELLO HILTON Patient Name: BETTE VILLAFANA MR#: [id number] : 1955 Exam Date: 05/30/2024 Ordering Doctor: DR BELLO HILTON M.D. RADIOLOGY REPORT PROCEDURE: MM TOMOSYNTHESIS SCREENING BI COMPARISON: MM TOMOSYNTHESIS SCREENING BI, 05/11/2023. MG MAMM SCREEN 3D ALFA CAD, 05/11/2022. MG MAMM SCREEN 3D ALFA CAD, 05/05/2021. MG MAMM ALFA SCRN W CAD DIG, 04/19/2013. INDICATIONS: Screening Calculator Name NCI Breast Cancer Risk Assessment Tool 5 Year Breast Cancer Risk 3.00% Lifetime Breast Cancer Risk 10.20% Personal Breast Cancer No Personal Ovarian Cancer No Treatments None Family Cancers Mother with breast cancer at age 75; Aunt-maternal with breast cancer at age 70; Brother with kidney cancer at age 50. LOCATION: [facility] BREAST COMPOSITION: The breasts are almost entirely fatty. FINDINGS: DIAGNOSTIC CATEGORY 2--BENIGN FINDING: RIGHT BREAST: No significant suspicious finding. Scattered benign-appearing calcifications are present. No significant change has occurred. LEFT BREAST: No significant suspicious finding. Scattered benign-appearing calcifications are present. No significant change has occurred. RECOMMENDATIONS: ROUTINE MAMMOGRAM AND CLINICAL EVALUATION IN 12 MONTHS. PLEASE NOTE: A NORMAL MAMMOGRAM DOES NOT EXCLUDE THE POSSIBILITY OF BREAST CANCER. A CLINICALLY SUSPICIOUS PALPABLE LUMP SHOULD BE BIOPSIED. Dictated by: Carol Ascencio M.D. on 05/31/2024 at 16:06 Approved by: Carol Ascencio M.D. on 05/31/2024 at 16:08 Dictated By: Carol Ascencio M.D. Signed By: 05/31/24 1609 DD/ 1609 TD/TT: Road Mixer Operator: [facility] Radiology, Radiologi MD leonid - 05/31/2024 [place] [address] Mammography Report Signed Patient: BETTE VILLAFANA MR#: [id number] : 1955 Acct:[id number] Age/Sex: 69 / F ADM Date: 05/30/24 Loc: MAMMO Attending Dr: BELLO HILTON Ordering Physician: BELLO HILTON Results: Date of Service: 05/30/24 Follow Up: Procedure(s): MM tomosynthesis screening BI Accession Number(s): [id number] cc: BELLO HILTON Patient Name: BETTE VILLAFANA MR#: [id number] : 1955 Exam Date: 05/30/2024 Ordering Doctor: DR BELLO HILTON M.D. RADIOLOGY REPORT PROCEDURE: MM TOMOSYNTHESIS SCREENING BI COMPARISON: MM TOMOSYNTHESIS SCREENING BI, 05/11/2023. MG MAMM SCREEN 3D ALFA CAD, 05/11/2022. MG MAMM SCREEN 3D ALFA CAD, 05/05/2021. MG MAMM ALFA SCRN W CAD DIG, 04/19/2013. INDICATIONS: Screening Calculator Name NCI Breast Cancer Risk Assessment Tool 5 Year Breast Cancer Risk 3.00% Lifetime Breast Cancer Risk 10.20% Personal Breast Cancer No Personal Ovarian Cancer No Treatments None Family Cancers Mother with breast cancer at age 75; Aunt-maternal with breast cancer at age 70; Brother with kidney cancer at age 50. LOCATION: [facility] BREAST COMPOSITION: The breasts are almost entirely fatty. FINDINGS: DIAGNOSTIC CATEGORY 2--BENIGN FINDING: RIGHT BREAST: No significant suspicious finding. Scattered benign-appearing calcifications are present. No significant change has occurred. LEFT BREAST: No significant suspicious finding. Scattered benign-appearing calcifications are present. No significant change has occurred. RECOMMENDATIONS: ROUTINE MAMMOGRAM AND CLINICAL EVALUATION IN 12 MONTHS. PLEASE NOTE: A NORMAL MAMMOGRAM DOES NOT EXCLUDE THE POSSIBILITY OF BREAST CANCER. A CLINICALLY SUSPICIOUS PALPABLE LUMP SHOULD BE BIOPSIED. Dictated by: Carol Ascencio M.D. on 05/31/2024 at 16:06 Approved by: Carol Ascencio M.D. on 05/31/2024 at 16:08 Dictated By: Carol Ascencio M.D. Signed By: 05/31/241608 DD/ 08 TD/TT: Road Mixer Operator: [facility] Radiology Study observation (narrative) [facility] MM TOMOSYNTHESIS SCREENING B IOrdered By: Radiologist Radiology on 05-31-2024 [facility] Work Phone: ALL DHEA SULFATEon DHEA-SULFATE 34.8 ug/dL 20.4 - 186.6 ug/dL [facility] CORTISOLon 04-18-2024 Interpretation and review of laboratory results Abnormal [facility] CORTISOL 0.4 ug/dL Abnormal 6.2 - 19.4 ug/dL [facility] Comment on above: Please Note: The ref erence interval and flagging for this test is for an AM collection. If this is a PM collection please use: Cortisol PM: 2.3-11.9 Performed at: [address] [id number] Germ Drier: Saul Howard PhD, Phone: [phone] No Panel Informationon 04-18 [facility] CREATININEon 04-18-2024 Creatinine [Mass/Vol] 0.89 mg/dL 0.55 - 1.02 mg/dL [facility] GFR/1.73 sq M.predicted CKD-EPI (S/P/Bld) [Vol rate/Area] >60 >=60 mL/min/1.73m 2 [facility] EGFR-NON AF RUSSIAN >60 >=60 mL/min/1.73m 2 [facility] Catecholamines 3 panel (P) [ Mass/Vol]on 04-17-2024 DOPamine [Mass/Vol] <30 0 - 48 pg/mL [facility] EPINEPHrine (P) [Mass/Vol] <15 0 - 62 pg/mL [facility] Norepinephrine (P) [Mass/Vol] 624 pg/mL 0 - 874 pg/mL [facility] Performed at: [address] [id number] Germ Drier: Estrella Leggett MD, Phone: [phone] [facility] Metanephrines Plasmaon 04-13 Annotation comment [Interpretation] Narrative See Note [facility] Comment on above: INTERPRETIVE INFORMA TION: Metanephrines, [...] developed and its performance characteristics determined by [facility]. It has not been cleared or approved by the US Food and Drug Administration. This test was performed in a CLIA certified laboratory and is intended for clinical purposes. Performed By: [facility] [address] [place] [address] Tube Mounter: Geronimo Gomez MD, PhD CLIA Number: [id number] Metanephrines [Moles/Vol] <0.10 0.00 - 0.49 nmol/L [facility] Normetanephrine Free [Moles/Vol] 0.51 nmol/L 0.00 - 0.89 nmol/L [facility] Dexamethasoneon 04-12-2024 Dexamethasone [Mass/Vol] <50.0 ng/dL [facility] Comment on above: INTERPRETIVE INFORMA TION: Dexamethasone, [...] developed and its performance characteristics determined by [facility]. It has not been cleared or approved by the US Food and Drug Administration. This test was performed in a CLIA certified laboratory and is intended for clinical purposes. Performed By: [facility] [address] [place] [address] Tube Mounter: Geronimo Gomez MD, PhD CLIA Number: [id number] Dexamethasone [Mass/Vol]on 06-13-2023 [facility] Adrenocorticotropic Hormone (ACTH)on 04-11-2024 Corticotropin (P) [Mass/Vol] 37.5 pg/mL 7.2 - 63.3 pg/mL [facility] Comment on above: INTERPRETIVE INFORMA TION: Adrenocorticotropic Hormone Reference interval based on samples collected between 7 a.m. and 10 a.m. No reference intervals established for p.m. collections. Pediatric reference values are the same as adults (Acta Paediatr Scand 1981;70:341-345). This assay measures intact ACTH 1-39; some types of synthetic ACTH and ACTH fragments are not detected by this assay. Performed By: [facility] [address] [place] [address] Tube Mounter: Geronimo Gomez MD, PhD CLIA Number: [id number] Corticotropin (P) [Mass/Vol] on 04-11-2024 [facility] Catecholamines 3 panel (P) [ Mass/Vol]on 04-10-2024 DOPamine [Mass/Vol] <30 Normal 0-48 [facility] Comment on above: Order Comment: TSH t esting is performed using different testing methodology at [facility] than at other [facility]. Direct result comparisons should only be made within the same method. Performed By: #### 3 016-3 #### IDANIA Alexandre ([id number]) [facility] ([facility]) [address] [place] [address] EPINEPHrine (P) [Mass/Vol] <15 Normal 0-62 [facility] Comment on above: Order Comment: TSH t esting is performed using different testing methodology at [facility] than at [facility]. Direct result comparisons should only be made within the same method. Performed By: #### 3 016-3 #### IDANIA Alexandre ([id number]) [facility] ([facility]) [address] [place] [address] Norepinephrine (P) [Mass/Vol] 624 pg/mL Normal 0-874 [facility] Comment on above: Order Comment: TSH t esting is performed using different testing methodology at [facility] than at other [facility]. Direct result comparisons should only be made within the same method. Performed By: #### 3 016-3 #### IDANIA Alexandre ([id number]) [facility] ([facility]) [address] [place] [address] Corticotropinon 04-10-2024 Corticotropin (P) [Mass/Vol] 37.5 pg/mL Normal 7.2-63.3 [facility] Comment on above: Result Comment: INTE RPRETIVE INFORMATION: Adrenocorticotropic Hormone Reference interval based on samples collected between 7 a.m. and 10 a.m. No reference intervals established for p.m. collections. Pediatric reference values are the same as adults (Acta Paediatr Scand 1981;70:341-345). This assay measures intact ACTH 1-39; some types of synthetic ACTH and ACTH fragments are not detected by this assay. Performed By: [facility] [address] [place] [address] Tube Mounter: Geronimo Gomez MD, PhD CLIA Number: [id number] Performed By: #### 2 141-0 #### [facility]) ([id number]) [address] [place] [address] Cortisolon 04-10-2024 Cortisol [Mass/Vol] 9.7 ug/dL 2.5 - 20 .0 ug/dL [facility] Cortisol [Mass/Vol] 9.7 ug/dL Normal 2.5-20.0 [facility] Comment on above: Performed By: #### 2 143-6 #### IDANIA Alexandre ([id number]) [facility] ([facility]) [id number] [place], [place] [id number] Cortisol [Mass/Vol]on 2023 Interpretation and review of laboratory results Normal [facility] DHEA-S [Mass/Vol]on 04-10-20 MATURITY-BASED REFER ENCE RANGES: PUBERTAL (CHELSEA) STAGE [...] contact their local laboratory for further information. [facility] DHEA-Sulfateon 04-10-2024 DHEA-S [Mass/Vol] 106 ug/dL 13 - 130 ug/dL [facility] Dehydroepiandrosterone sulfa meena 04-10-2024 DHEA-S [Mass/Vol] 106 ug/dL Normal 13-130 [facility] Comment on above: Order Comment: ÓSCAR Y-BASED REFERENCE RANGES: PUBERTAL (CHELSEA) STAGE MALE FEMALE [...] By: #### 2 191-5 #### IDANIA Alexandre ([id number]) [facility] ([facility]) [address] [place] [address] Dexamethasoneon 04-10-2024 Dexamethasone [Mass/Vol] <50.0 Normal [facility] Comment on above: Result Comment: INTE RPRETIVE [...] developed and its performance characteristics determined by [facility]. It has not been cleared or approved by the US Food and Drug Administration. This test was performed in a CLIA certified laboratory and is intended for clinical purposes. Performed By: [facility] [address] [place] [address] Tube Mounter: Geronimo Gomez MD, PhD CLIA Number: [id number] Performed By: #### 1 4062-4 #### [facility] ([id number]) [address] [place] [address] Free T4 [Mass/Vol]on 024 Interpretation and review of laboratory results Normal [facility] Thyroxine Free testi ng is performed using different testing methodology at [facility] than at other [facility]. Direct result comparisons should only be made within the same method. [facility] HbA1c (Bld) [Mass fraction]o n 04-10-2024 Average glucose Estimated from glycated hemoglobin (Bld) [Mass/Vol] 123 mg/dL Not Established [facility] Interpretation and review of laboratory results Abnormal [facility] Diagnosis of Diabetes-Adults Non-Diabetic: < or = 5.6% Increased risk for developing diabetes: 5.7-6.4% Diagnostic of diabetes: > or = 6.5% [facility] Average glucose Estimated from glycated hemoglobin (Bld) [Mass/Vol] 123 mg/dL Normal Not Established [facility] Comment on above: Order Comment: Diagn osis of Diabetes-Adults Non-Diabetic: < or = 5.6% Increased risk for developing diabetes: 5.7-6.4% Diagnostic of diabetes: > or = 6.5% Performed By: #### 4 548-4 #### IDANIA Alexandre ([id number]) [facility] ([facility]) [id number] [place] [address] Hemoglobin A1Con 04-10-2024 HbA1c (Bld) [Mass fraction] 5.9 % High See comment [facility] Hemoglobin A1c/Hemoglobin.to magdiel 04-10-2024 HbA1c (Bld) [Mass fraction] 5.9 % High See comment [facility] Comment on above: Order Comment: Diagn osis of Diabetes-Adults Non-Diabetic: < or = 5.6% Increased risk for developing diabetes: 5.7-6.4% Diagnostic of diabetes: > or = 6.5% Performed By: #### 4 548-4 #### IDANIA Alexandre ([id number]) [facility] ([facility]) [address] [place] [address] METANEPHRINES PLASMAon 04-10 Annotation comment [Interpretation] Narrative See Note Normal [facility] Comment on above: Result Comment: INTE RPRETIVE [...] developed and its performance characteristics determined by [facility]. It has not been cleared or approved by the US Food and Drug Administration. This test was performed in a CLIA certified laboratory and is intended for clinical purposes. Performed By: [facility] [address] [place] [address] Tube Mounter: Geronimo Gomez MD, PhD CLIA Number: [id number] Performed By: #### M ETPL #### [facility] ([facility]) ([id number]) [address] [place] [address] Metanephrines [Moles/Vol] <0.10 Normal 0.00-0.49 [facility] Comment on above: Performed By: #### M ETPL #### [facility] ([facility]) ([id number]) [address] [place] [address] Normetanephrine Free [Moles/Vol] 0.51 nmol/L Normal 0.00-0.89 [facility] Comment on above: Performed By: #### M ETPL #### [facility] ([facility]) ([id number]) [address] [place] [address] No Panel Informationon 04-10 Interpretation and review of laboratory results Normal [facility] Renal function 2000 panelon 04-10-2024 Albumin BCP dye [Mass/Vol] 4.3 g/dL 3.4 - 5.0 g/dL [facility] Anion gap [Moles/Vol] 14 mmol/L 10 - 2 0 mmol/L [facility] Calcium [Mass/Vol] 9.7 mg/dL 8.6 - 10. 6 mg/dL [facility] Chloride [Moles/Vol] 102 mmol/L 98 - 10 7 mmol/L [facility] CO2 [Moles/Vol] 28 mmol/L 21 - 32 mmol/L [facility] Creatinine [Mass/Vol] 0.67 mg/dL 0.50 - 1.05 mg/dL [facility] eGFR - PINF [facility] Comment on above: Calculations of huang mated GFR are performed using the 2020 CKD-EPI Study Refit equation without the race variable for the IDMS-Traceable creatinine methods. https://jasn.asnjournals.org/content//ASN.2020 511693 Glucose [Mass/Vol] 101 mg/dL High 74 - 99 mg/dL [facility] Interpretation and review of laboratory results Abnormal [facility] Phosphate [Mass/Vol] 3.9 mg/dL 2.5 - 4 .9 mg/dL [facility] Comment on above: The performance shanna acteristics of phosphorus testing in heparinized plasma have been validated by the individual laboratory site where testing is performed. Testing on heparinized plasma is not approved by the FDA; however, such approval is not necessary. Potassium [Moles/Vol] 4.4 mmol/L 3.5 - 5.3 mmol/L [facility] Sodium [Moles/Vol] 140 mmol/L 136 - 145 mmol/L [facility] Urea nitrogen [Mass/Vol] 12 mg/dL 6 - 23 mg/dL [facility] Albumin BCP dye [Mass/Vol] 4.3 g/dL Normal 3.4-5.0 [facility] Comment on above: Performed By: #### 2 4362-6 #### IDANIA Alexandre ([id number]) [facility] ([facility]) [id number] [place] [address] Anion gap [Moles/Vol] 14 mmol/L Normal 10-20 [facility] Comment on above: Performed By: #### 2 4362-6 #### IDANIA Alexandre ([id number]) [facility] ([facility]) [id number] [place] [address] Calcium [Mass/Vol] 9.7 mg/dL Normal 8.6-10.6 [facility] Comment on above: Performed By: #### 2 4362-6 #### IDANIA Alexandre ([id number]) [facility] ([facility]) [address] [place] [address] Chloride [Moles/Vol] 102 mmol/L Normal 98-107 [facility] Comment on above: Performed By: #### 2 4362-6 #### IDANIA Alexandre ([id number]) [facility] ([facility]) [id number] [place] [address] CO2 [Moles/Vol] 28 mmol/L Normal 21-32 [facility] Comment on above: Performed By: #### 2 4362-6 #### IDANIA Alexandre ([id number]) [facility] ([facility]) [address] [place] [address] Creatinine [Mass/Vol] 0.67 mg/dL Normal 0.50-1.05 [facility] Comment on above: Performed By: #### 2 4362-6 #### IDANIA Alexandre ([id number]) [facility] ([facility]) [address] [place] [address] GFR/1.73 sq M.predicted MDRD (S/P/Bld) [Vol rate/Area] mL/min/{1.73_m2} Normal >60 [facility] Comment on above: Result Comment: Calc ulations of estimated GFR are performed using the 2020 CKD-EPI Study Refit equation without the race variable for the IDMS-Traceable creatinine methods. https://jasn.asnjournals.org/content/early//ASN.2020 163801 Performed By: #### 2 4362-6 #### IDANIA Alexandre ([id number]) [facility] ([facility]) [address] [place] [address] Glucose [Mass/Vol] 101 mg/dL High 74-99 [facility] Comment on above: Performed By: #### 2 4362-6 #### IDANIA Alexandre ([id number]) [facility] ([facility]) [address] [place] [address] Phosphate [Mass/Vol] 3.9 mg/dL Normal 2.5-4.9 [facility] Comment on above: Result Comment: The performance characteristics of phosphorus testing in heparinized plasma have been validated by the individual laboratory site where testing is performed. Testing on heparinized plasma is not approved by the FDA; however, such approval is not necessary. Performed By: #### 2 4362-6 #### IDANIA Alexandre ([id number]) [facility] ([facility]) [address] [place] [address] Potassium [Moles/Vol] 4.4 mmol/L Normal 3.5-5.3 [facility] Comment on above: Performed By: #### 2 4362-6 #### IDANIA Alexandre ([id number]) [facility] ([facility]) [address] [place] [address] Sodium [Moles/Vol] 140 mmol/L Normal 136-145 [facility] Comment on above: Performed By: #### 2 4362-6 #### IDANIA Alexandre ([id number]) [facility] ([facility]) [id number] [place] [address] Urea nitrogen [Mass/Vol] 12 mg/dL Normal 6-23 [facility] Comment on above: Performed By: #### 2 4362-6 #### IDANIA Alexandre ([id number]) [facility] ([facility]) [id number] [place] [address] TPO Ab Qnon 04-10-2024 Interpretation and review of laboratory results Abnormal [facility] Negative: <=60 U/mL Positive: >60 U/mL [facility] TSH Qnon 04-10-2024 TSH testing is perfo rmed using different testing methodology at [facility] than at other [facility]. Direct result comparisons should only be made within the same method. [facility] Thyroid Peroxidase (TPO) Ant ibodyon 04-10-2024 TPO Ab Qn 275 [IU]/mL High NINF [facility] Thyroid Stimulating Hormoneo n 04-10-2024 TSH Qn 3.61 m[IU]/L [facility] Thyroperoxidase Abon 024 TPO Ab Qn 275 [IU]/mL High <=60 [facility] Comment on above: Order Comment: Negat dorothy: <=60 U/mL Positive: >60 U/mL Performed By: #### 8 099-4 #### IDANIA Alexandre ([id number]) [facility] ([facility]) [id number] [place] [id number] Thyrotropinon 04-10-2024 TSH Qn 3.61 m[IU]/L Normal 0.44-3.98 [facility] Comment on above: Order Comment: TSH t esting is performed using different testing methodology at [facility] than at other [place] [facility]. Direct result comparisons should only be made within the same method. Performed By: #### 3 016-3 #### IDANIA Alexandre ([id number]) [facility] ([facility]) [address] [id number] Thyroxine, Freeon 04-10-2024 Free T4 [Mass/Vol] 1.46 ng/dL 0.78 - 1. 48 ng/dL [facility] Thyroxine.freeon 04-10-2024 Free T4 [Mass/Vol] 1.46 ng/dL Normal 0.78-1.48 [facility] Comment on above: Order Comment: Thyro xine Free testing is performed using different testing methodology at [facility] than at other [facility] [place] [facility]. Direct result comparisons should only be made within the same method. Performed By: #### 3 024-7 #### IDANIA Alexandre ([id number]) [facility] ([facility]) [address] [id number] Laboratory - Hematology and Cell countson 02-14-2024 HbA1c (Bld) [Mass fraction] 5.9 % [facility] No Panel Informationon 02-13 [facility] Creatinine [Mass/volume] in UrineOrdered By: Lilliam Dexter on 10-19-2023 Creatinine (U) [Mass/Vol] 162.00 mg/dL [facility] Comment on above: No reference range e stablished HbA1c HPLC (Bld) [Mass fract ion]on 10-19-2023 HbA1c (Bld) [Mass fraction] 6.0 % [facility] Microalbumin [Mass/volume] i n UrineOrdered By: Lilliam Dexter on 10-19-2023 Albumin DL <= 20 mg/L (U) [Mass/Vol] 0.7 mg/dL 0.0-1.8 [facility] No Panel Informationon 10-18 Bedside Glucose 98 [facility] Urine microalbumin/creatinin e mass ratioOrdered By: Lilliam Dexter on 10-19-2023 Albumin/Creatinine DL <= 20 mg/L (U) [Mass ratio] 4.3 mg/g 0.0-30.0 [facility] Comment on above: 30-300 mg/g indicate s an increased risk for diabetic nephropathy. Greater than 300 mg/g is consistent with clinical nephropathy. (Am. J. Kidney Disease 1995, 25:107) No Panel InformationOrdered By: Maricel Jones on 10-05-2023 Quick Strep (POC) [facility] Activated partial thrombopla stin time (aPTT) in platelet poor plasma by coagulation aOrdered By: Serg Boucher on 08-06-2023 aPTT Coag (PPP) [Time] 27.8 s 25.1-36.5 [facility] Comment on above: A hematocrit value g reater than 55% may lead to inaccurate results in coagulation testing. Patients having hematocrit values >55% require a special collection tube for coagulation studies. Please contact the laboratory at [phone] for redraw instructions. Basophils Auto (Bld) [#/Vol] Ordered By: Serg Boucher on 08-06-2023 Basophils (Bld) [#/Vol] 0.1 10*3/uL 0.0-0.2 [facility] Basophils/100 WBC Auto (Bld) Ordered By: Serg Boucher on 08-06-2023 Basophils/100 WBC (Bld) 1.1 % . [facility] Calcium [Mass/volume] in Ser um or PlasmaOrdered By: Serg Boucher on 08-06-2023 Calcium [Mass/Vol] 8.7 mg/dL 8.6-10.3 [facility] Carbon dioxide, total [Moles /volume] in Serum or PlasmaOrdered By: Serg Boucher on 08-06-2023 CO2 [Moles/Vol] 26.4 mmol/L 21.0-31.0 [facility] Chloride [Moles/volume] in S julieth or PlasmaOrdered By: Serg Boucher on 08-06-2023 Chloride [Moles/Vol] 106 mmol/L 98-107 [facility] Creatine kinase [Enzymatic a ctivity/volume] in Serum or PlasmaOrdered By: Serg Boucher on 08-06-2023 CK [Catalytic activity/Vol] 91 U/L 30-223 [facility] Creatinine [Mass/volume] in Serum or PlasmaOrdered By: Serg Boucher on 08-06-2023 Creatinine [Mass/Vol] 0.67 mg/dL 0.60-1.20 [facility] Eosinophils Auto (Bld) [#/Vo l]Ordered By: Serg Boucher on 08-06-2023 Eosinophils (Bld) [#/Vol] 0.1 10*3/uL 0.0-0.45 [facility] Eosinophils/100 WBC Auto (Bl d)Ordered By: Serg Boucher on 08-06-2023 Eosinophils/100 WBC (Bld) 1.0 % . [facility] Erythrocyte distribution wid th Auto (RBC) [Ratio]Ordered By: Serg Boucher on 08-06-2023 Erythrocyte distribution width (RBC) [Ratio] 14.6 % 11.9-15.3 [facility] Glucose [Mass/volume] in Ser um or PlasmaOrdered By: Serg Boucher on 08-06-2023 Glucose [Mass/Vol] 111 mg/dL 70-100 [facility] Comment on above: ADA recommended refe rence rangeRandom Glucose Reference Range is dependent on time and content of last meal. Glucose of more than 200 mg/dL in a nonstressed, ambulatory subject supports the diagnosis of Diabetes Mellitus. Hematocrit Auto (Bld) [Volum e fraction]Ordered By: Serg Boucher on 08-06-2023 Hematocrit (Bld) [Volume fraction] 33.0 % 34.0-46.4 [facility] Hemoglobin [Mass/volume] in BloodOrdered By: Serg Boucher on 08-06-2023 Hemoglobin (Bld) [Mass/Vol] 10.7 g/dL 11.8-15.4 [facility] INR in Platelet poor plasma by Coagulation assayOrdered By: Serg Boucher on 08-06-2023 INR Coag (PPP) [Relative time] 1.0 {INR} [facility] Comment on above: INR Therapeutic Rang [...] with mechanical heart valves: 3 - 4.5 Leukocytes [#/volume] correc julian for nucleated erythrocytes in Blood by Automated counOrdered By: Serg Boucher on 08-06-2023 WBC corrected for nucl RBC Auto (Bld) [#/Vol] 11.6 10*3/uL 3.8-11.6 [facility] Lymphocytes Auto (Bld) [#/Vo l]Ordered By: Serg Boucher on 08-06-2023 Lymphocytes (Bld) [#/Vol] 1.9 10*3/uL 1.00-4.8 [facility] Lymphocytes/100 WBC Auto (Bl d)Ordered By: Serg Boucher on 08-06-2023 Lymphocytes/100 WBC (Bld) 16.6 % . [facility] MCH Auto (RBC) [Entitic mass ]Ordered By: Serg Boucher on 08-06-2023 MCH (RBC) [Entitic mass] 29.2 pg 24.7-34.3 [facility] MCHC Auto (RBC) [Mass/Vol]Or dered By: Serg Boucher on 08-06-2023 MCHC (RBC) [Mass/Vol] 32.5 g/dL 32.0-35.0 [facility] MCV Auto (RBC) [Entitic vol] Ordered By: Serg Boucher on 08-06-2023 MCV (RBC) [Entitic vol] 89.6 fL 80-100 [facility] Monocyte distribution width [Entitic volume] in Blood by AutomatedOrdered By: Serg Boucher on 08-06-2023 Monocyte distribution width Auto (Bld) [Entitic vol] 15.33 % 0.00-20.00 [facility] Monocytes Auto (Bld) [#/Vol] Ordered By: Serg Boucher on 08-06-2023 Monocytes (Bld) [#/Vol] 0.8 10*3/uL 0.0-0.8 [facility] Monocytes/100 WBC Auto (Bld) Ordered By: Serg Boucher on 08-06-2023 Monocytes/100 WBC (Bld) 6.7 % . [facility] Natriuretic peptide B [Mass/ Vol]Ordered By: Serg Boucher on 08-06-2023 Natriuretic peptide B (Bld) [Mass/Vol] 38.0 pg/mL 5-100 [facility] Neutrophils Auto (Bld) [#/Vo l]Ordered By: Serg Boucher on 08-06-2023 Neutrophils (Bld) [#/Vol] 8.7 10*3/uL 1.8-7.7 [facility] Neutrophils/100 WBC Auto (Bl d)Ordered By: Serg Boucher on 08-06-2023 Neutrophils/100 WBC (Bld) 74.6 % . [facility] No Panel InformationOrdered By: Serg Boucher on 08-06-2023 Estimated GFR (CKD-EPI) > 60.0 mL/Min [facility] Creatinine Clearance (Chem 88.45 [facility] Nucleated erythrocytes [Pres ence] in Blood by Automated countOrdered By: Serg Boucher on 08-06-2023 Nucleated RBC Auto Ql (Bld) 0.1 /100{WBC} 0-0.5 [facility] Platelet mean volume Auto (B ld) [Entitic vol]Ordered By: Serg Boucher on 08-06-2023 Platelet mean volume (Bld) [Entitic vol] 7.7 fL 6.3-10.7 [facility] Platelets Auto (Bld) [#/Vol] Ordered By: Serg Boucher on 08-06-2023 Platelets (Bld) [#/Vol] 322 10*3/uL 150-450 [facility] Potassium [Moles/volume] in Serum or PlasmaOrdered By: Serg Boucher on 08-06-2023 Potassium [Moles/Vol] 3.9 mmol/L 3.5-5.1 [facility] Prothrombin time (PT)Ordered By: Serg Boucher on 08-06-2023 PT Coag (PPP) [Time] 11.4 s 9.0-12.9 [facility] Comment on above: A hematocrit value g reater than 55% may lead to inaccurate results in coagulation testing. Patients having hematocrit values >55% require a special collection tube for coagulation studies. Please contact the laboratory at [phone] for redraw instructions. RBC Auto (Bld) [#/Vol]Ordere d By: Serg Boucher on 08-06-2023 RBC (Bld) [#/Vol] 3.68 10*6/uL 3.60-5.[address] [facility] Serum or plasma anion gap de terminationOrdered By: Serg Boucher on 08-06-2023 Anion gap [Moles/Vol] 7.5 mmol/L 6.0-15.0 [facility] Sodium [Moles/volume] in Ser um or PlasmaOrdered By: Serg Boucher on 08-06-2023 Sodium [Moles/Vol] 136 mmol/L 136-145 [facility] Troponin I.cardiac [Mass/vol ume] in Serum or Plasma by Detection limit <= 0.01 ng/Ordered By: Serg Boucher on 08-06-2023 Troponin I.cardiac DL <= 0.01 ng/mL [Mass/Vol] 3.0 pg/mL 0.0-15.0 [facility] Urea nitrogen [Mass/volume] in Serum or PlasmaOrdered By: Serg Boucher on 08-06-2023 Urea nitrogen [Mass/Vol] 11 mg/dL 7-25 [facility] WBC Auto (Bld) [#/Vol]Ordere d By: Serg Boucher on 08-06-2023 WBC (Bld) [#/Vol] 11.6 10*3/uL 3.8-11.[address] [facility] Ambulatory Visit Summaryon 0 06-03-2023 Ambulatory Visit Summary BETTE VILLAFANA :1955 Visit Date:06/03/2023 Ambulatory Visit Instructions Your Diagnosis Gangrenous cholecystitis Your Care Team Attending Physician - Yolis FALK, Emiliano Correa Primary Care Physician - YOBANI FALK, BELLO Brown This Is Your Medications List levothyroxine (levothyroxine [...] CELIA FALK, Mayito Chowdhury Where: General Surgery Celia/Kendell Flanagan [facility] General Surgery Office/Clini c Noteon 06-03-2023 General Surgery Office/Clinic Note Chief Complaint s/p cholecystectomy by HPI Staff Bette is a 68 y.o. female here for s/p cholecystectomy done on 05/16/[address] Yang at [facility] Patient denies excessive bleeding/pain/discharge/ fever/chills. last colonoscopy at 64 y.o. [facility] History of Present Illness Bette Villafana is a 68-year-old female status post laparoscopic cholecystectomy performed by Dr. Yang. He is out of town. I am seeing the patient as a postop visit for him. Surgery was done on 05/16/2023 for cholecystitis where she was found to have [id number] gangrenous cholecystitis. During the procedure, a drain [...] female status post laparoscopic cholecystectomy performed at [facility] by Dr. Yang for gangrenous cholecystitis. 1. 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 We will provide a note for this. Portions of this record may have been created with voice recognition artificial intelligence software, specifically [employer] and or [employer]. Substitutions may have occurred voice recognition and artificial intelligence software. Documentation services were performed after patient or guardian consented to allow [employer] to record this visit. JONAH streaming media specialist and provider reviewed before signing. JONAH: [...] Given Postpone due to refusal SARS-CoV-2 (COVID-19) [id number] 05/11/2022 Recorded SARS-CoV-2 (COVID-19) mRNA BNT-162b2 vax 04/02/2021 Recorded SARS-CoV-2 (COVID-19) mRNA BNT-162b2 vax 09/15/2020 Recorded SARS-CoV-2 (COVID-19) mRNA BNT-162b2 vax 08/25/2020 Recorded Normal [facility] Comment on above: Result Comment: Elec tronically Signed By: Emiliano Lagos MD\.br\Date and Time Signed: 06/03/23 09:25 EST\.br\Electronically Co-Signed By: Tiana Drake\.br\Date and Time Co-Signed: 06/03/23 09:08 EST Provider Letteron 06-03-2023 Provider Letter (Inserted Image. Mira ble to display) June 03, 2023 BETTE [address]ILLAFANA [address] [place] [address] : 1955 To Whom It May Concern, Please excuse above patient from work. Date of Illness: From: 05/16/2023 To: 06/18/2023 May Return to Work On: 06/18/2023 Restrictions: No restrictions Comments: _ Sincerely, Emiliano Lagos MD [facility] General Surgery [facility] Pathology Noteon 05-26-2023 Pathology Note [id number]#1.00TIF F [facility] Consultation Noteon 05-18-19 Consultation Note [id number]#1.00TIF F [facility] Consultation Note [id number]#1.00TIFF [facility] Consultation Note [id number]#1.00TIF F [facility] Lab Reportson 05-18-2023 Lab Reports [id number]#1.00TIF F [facility] Lab Reports [id number]#1.00TIFF [facility] Lab Reports [id number]#1.00TIFF [facility] Operative Reporton Operative Report [id number]#1.00TIF F [facility] Laboratory - Chemistry and C hemistry - challengeon 05-17-2023 Albumin [Mass/Vol] 2.5 g/dL [facility] ALP [Catalytic activity/Vol] 76 U/L [facility] ALT [Catalytic activity/Vol] 32 U/L [facility] AST [Catalytic activity/Vol] 32 U/L [facility] Bilirubin [Mass/Vol] 0.7 mg/dL [facility] Calcium [Mass/Vol] 8.2 mg/dL [facility] Chloride [Moles/Vol] 97 mmol/L [facility] CO2 [Moles/Vol] 31 mmol/L [facility] Creatinine [Mass/Vol] 0.70 mg/dL [facility] GFR/1.73 sq M.predicted MDRD (S/P/Bld) [Vol rate/Area] mL/min/{1.73_m2} [facility] Glucose [Mass/Vol] 148 mg/dL [facility] Potassium [Moles/Vol] 4.3 mmol/L [facility] Protein [Mass/Vol] 6.2 g/dL [facility] Sodium [Moles/Vol] 134 mmol/L [facility] Urea nitrogen [Mass/Vol] 4.0 mg/dL [facility] No Panel Informationon 05-17 Estimated GFR (Non- > 60 mL/min [facility] Laboratory - Chemistry and C hemistry - challengeon 05-16-2023 Albumin [Mass/Vol] 3.0 g/dL [facility] ALP [Catalytic activity/Vol] 78 U/L [facility] ALT [Catalytic activity/Vol] 21 U/L [facility] AST [Catalytic activity/Vol] 11 U/L [facility] Bilirubin [Mass/Vol] 1.0 mg/dL [facility] Calcium [Mass/Vol] 8.7 mg/dL [facility] Chloride [Moles/Vol] 99 mmol/L [facility] CO2 [Moles/Vol] 28.5 mmol/L [facility] Creatinine [Mass/Vol] 0.79 mg/dL [facility] GFR/1.73 sq M.predicted MDRD (S/P/Bld) [Vol rate/Area] mL/min/{1.73_m2} [facility] Glucose [Mass/Vol] 134 mg/dL [facility] Potassium [Moles/Vol] 3.8 mmol/L [facility] Protein [Mass/Vol] 6.8 g/dL [facility] Sodium [Moles/Vol] 134 mmol/L [facility] Urea nitrogen [Mass/Vol] 7.0 mg/dL [facility] No Panel Informationon 05-16 Estimated GFR (Non- > 60 mL/min [facility] GLYCOHEMOGLOBIN A1Con 2022 ADA RECOMMENDATION SEE BELOW Normal [facility] Comment on above: Result Comment: ADA RECOMMENDED LIMIT 4.0 - 6.0 ADA THERAPEUTIC TARGET < 7.0 ACTION SUGGESTED > 7.0 Performed By: #### P TT, PT #### [facility] [address] [place] [address] Dr. Vivian Fall Glucose [Mass/Vol] 120 mg/dL Normal [facility] Comment on above: Performed By: #### P TT, PT #### [facility] [address] [place] [address] Dr. Vivian Fall HbA1c (Bld) [Mass fraction] 5.8 % Normal 4.5-6.2 [facility] Comment on above: Performed By: #### P TT, PT #### [facility] [address] [place] [address] Dr. Vivian Fall LIPID PROFILEon 09-02-2022 CHOL-HDL RATIO NORM SEE BELOW Normal [facility] Comment on above: Result Comment: 3.3 - 4.4 LOW RISK 4.4 - 7.1 AVERAGE RISK 7.1 - 11.0 MODERATE RISK >11.0 HIGH RISK Performed By: #### P TT, PT #### [facility] [address] [place] [address] Dr. Vivian Fall Cholesterol [Mass/Vol] 171 mg/dL Normal <=200 Th [facility] Comment on above: Performed By: #### P TT, PT #### [facility] [address] [place] [address] Dr. Vivian Fall Cholesterol in HDL [Mass/Vol] 52 mg/dL Normal 40-60 [facility] Comment on above: Performed By: #### P TT, PT #### [facility] [address] [place] [address] Dr. Vivian Fall Cholesterol in LDL [Mass/Vol] 89.8 mg/dL Normal [facility] Comment on above: Performed By: #### P TT, PT #### [facility] [address] [place] [address] Dr. Vivian Fall Cholesterol.total/Jeannie sterol in HDL [Mass ratio] 3.3 {ratio} Normal [facility] Comment on above: Performed By: #### P TT, PT #### [facility] [address] [address] [address] Vivian Fall HDL NORMAL > or = 60 mg/dl - LO W CARDIOVASCULAR RISK <40 mg/dl - HIGH CARDIOVASCULAR RISK Normal [facility] Comment on above: Performed By: #### P TT, PT #### [facility] [address] [address] [address] Vivian Fall LDL CALC NORMAL SEE BELOW Normal [facility] Comment on above: Result Comment: <100 mg/dl OPTIMAL 100 - 129 mg/dl NEAR OR ABOVE OPTIMAL 130 - 159 mg/dl BORDERLINE HIGH 160 - 189 mg/dl HIGH >190 mg/dl VERY HIGH Performed By: #### P TT, PT #### [facility] [address] [place] [address] Dr. Vivian Fall Triglyceride [Mass/Vol] 146 mg/dL Normal <=150 T [facility] Comment on above: Performed By: #### P TT, PT #### [facility] [address] [place] [address] Dr. Vivian Fall VLDL CALC 29.2 mg/dL Normal [facility] Comment on above: Performed By: #### P TT, PT #### [facility] [address] [place] [address] Dr. Vivian Fall PROF 14(COMP METB)on 023 Albumin [Mass/Vol] 3.6 g/dL Normal 3.4-5.0 [facility] Comment on above: Performed By: #### C MP, LIPID #### [facility] [address] [place] [address] Dr. Vivian Fall Albumin/Globulin [Mass ratio] 0.9 {ratio} Normal [facility] Comment on above: Performed By: #### C MP, LIPID #### [facility] [address] [place] [address] Dr. Vivian Fall ALP [Catalytic activity/Vol] 81 U/L Normal 46-116 [facility] Comment on above: Performed By: #### C MP, LIPID #### [facility] [address] [address] [address] Vivian Fall ALT [Catalytic activity/Vol] 22 U/L Normal 14-59 [facility] Comment on above: Performed By: #### C MP, LIPID #### [facility] [address] [address] [address] Vivian Fall Anion gap [Moles/Vol] 12.5 mmol/L Normal Th [facility] Comment on above: Performed By: #### C MP, LIPID #### [facility] [address] [address] [address] Vivian Fall AST [Catalytic activity/Vol] 15 U/L Normal 15-37 [facility] Comment on above: Performed By: #### C MP, LIPID #### [facility] [address] [place] [address] Dr. Vivian Fall Bilirubin [Mass/Vol] 0.6 mg/dL Normal 0.2-1.0 [facility] Comment on above: Performed By: #### C MP, LIPID #### [facility] [address] [address] [address] Vivian Fall Calcium [Mass/Vol] 9.1 mg/dL Normal 8.5-10.1 [facility] Comment on above: Performed By: #### C MP, LIPID #### [facility] [address] [address] [address] Vivian Fall Chloride [Moles/Vol] 103 mmol/L Normal 98-107 [facility] Comment on above: Performed By: #### C MP, LIPID #### [facility] [address] [address] [address] Vivian Fall CO2 [Moles/Vol] 27.6 mmol/L Normal 21.0-32.0 [facility] Comment on above: Performed By: #### C MP, LIPID #### [facility] [address] [address] [address] Vivian Fall Creatinine [Mass/Vol] 0.78 mg/dL Normal 0.55-1.02 [facility] Comment on above: Performed By: #### C MP, LIPID #### [facility] [address] [address] [address] Vivian Fall EGFR-AF RUSSIAN >60 Normal >=60 [facility] Comment on above: Performed By: #### C MP, LIPID #### [facility] [address] [address] [address] Vivian Fall EGFR-NON AF RUSSIAN >60 Normal >=60 [facility] Comment on above: Performed By: #### C MP, LIPID #### [facility] [address] [address] [address] Vivian Fall Globulin (S) [Mass/Vol] 3.8 g/dL Normal T [facility] Comment on above: Performed By: #### C MP, LIPID #### [facility] [address] [place] [address] Dr. Vivian Fall Glucose [Mass/Vol] 105 mg/dL Normal 74-106 [facility] Comment on above: Performed By: #### C MP, LIPID #### [facility] [address] [place] [address] Dr. Vivian Fall Potassium [Moles/Vol] 4.1 mmol/L Normal 3.5-5.1 [facility] Comment on above: Performed By: #### C MP, LIPID #### [facility] [address] [place] [address] Dr. Vivian Fall Protein [Mass/Vol] 7.4 g/dL Normal 6.4-8.2 [facility] Comment on above: Performed By: #### C MP, LIPID #### [facility] [address] [address] [address] Vivian Fall Sodium [Moles/Vol] 139 mmol/L Normal 136-145 [facility] Comment on above: Performed By: #### C MP, LIPID #### [facility] [address] [address] [address] Vivian Fall Urea nitrogen [Mass/Vol] 11.0 mg/dL Normal 7.0-18.0 [facility] Comment on above: Performed By: #### C MP, LIPID #### [facility] [address] [place] [address] Dr. Vivian Fall Urea nitrogen/Creatinine [Mass ratio] 14.1 mg/mg Normal [facility] Comment on above: Performed By: #### C MP, LIPID #### [facility] [address] [place] [address] Dr. Vivian Fall VITAMIN B12on 09-02-2022 Cobalamin (Vitamin B12) [Mass/Vol] 373.0 pg/mL Normal 193.0-986.0 [facility] Comment on above: Performed By: #### P TT, PT #### [facility] [address] [place] [address] Dr. Vivian Fall VITAMIN D 25 OHon 09-02-2022 VIT D 25-OH 16.1 ng/mL Normal [facility] Comment on above: Performed By: #### P TT, PT #### [facility] [address] [place] [address] Dr. Vivian Fall VIT D RANGES SEE BELOW Normal [facility] Comment on above: Result Comment: <20 ng/mL Vit D deficient 20 - <30 ng/mL Vit D insufficient 30 - 100 ng/mL Vit D sufficient >100 ng/mL Potential Toxicity Performed By: #### P TT, PT #### [facility] [address] [place] [address] Dr. Vivian Fall BNPon 06-29-2022 Natriuretic peptide B (Bld) [Mass/Vol] 223.0 pg/mL Normal <=900.0 [facility] Comment on above: Performed By: #### C MP, HSTROPN, BNP #### [facility] [address] [place] [address] Dr. Vivian Fall CBC AUTO DIFFon 06-29-2022 BASO # 0.0 103/ul Normal 0.0-0.1 [facility] Comment on above: Performed By: #### C BC #### [facility] [address] [place] [address] Dr. Vivian Fall Basophils/100 WBC (Bld) 0.2 % Normal 0.2-2.0 [facility] Comment on above: Performed By: #### C BC #### [facility] [address] [address] [address] Vivian Fall EO # 0.0 103/ul Normal 0.0-0.7 [facility] Comment on above: Performed By: #### C BC #### [facility] [address] [place] [address] Dr. Vivian Fall Eosinophils/100 WBC (Bld) 0.0 % Critically low 0.9-7.0 [facility] Comment on above: Performed By: #### C BC #### [facility] [address] [place] [address] Dr. Vivian Fall Erythrocyte distribution width (RBC) [Ratio] 13.0 % Normal 11.0-15.0 [facility] Comment on above: Performed By: #### C BC #### [facility] [address] [place] [address] Dr. Vivian Fall Hematocrit (Bld) [Volume fraction] 36.2 % Normal 36.0-48.0 [facility] Comment on above: Performed By: #### C BC #### [facility] [address] [place] [address] Dr. Vivian Fall Hemoglobin (Bld) [Mass/Vol] 12.2 g/dL Normal 12.0-16.0 [facility] Comment on above: Performed By: #### C BC #### [facility] [address] [place] [address] Dr. Vivian Fall IG # 0.08 10e3/ul Critically high 0.00-0.03 [facility] Comment on above: Performed By: #### C BC #### [facility] [address] [place] [address] Dr. Vivian Fall IG % 1.3 % Critically high 0.0-0.5 [facility] Comment on above: Performed By: #### C BC #### [facility] [address] [place] [address] Dr. Vivian Fall LYMPH # 0.3 103/ul Critically low 1.2-3.8 [facility] Comment on above: Performed By: #### C BC #### [facility] [address] [place] [address] Dr. Vivian Fall Lymphocytes/100 WBC (Bld) 4.2 % Critically low 20.5-60.0 [facility] Comment on above: Performed By: #### C BC #### [facility] [address] [place] [address] Dr. Vivian Fall MANUAL DIFF REQ NO Normal [facility] Comment on above: Performed By: #### C BC #### [facility] [address] [place] [address] Dr. Vivian Fall MCH (RBC) [Entitic mass] 29.2 pg Normal 26.7-34.0 [facility] Comment on above: Performed By: #### C BC #### [facility] [address] [place] [address] Dr. Vivian Fall MCHC (RBC) [Mass/Vol] 33.7 g/dL Normal 29.9-35.2 [facility] Comment on above: Performed By: #### C BC #### [facility] [address] [place] [address] Dr. Vivian Fall MCV (RBC) [Entitic vol] 86.6 fL Normal 81.0-99.0 [facility] Comment on above: Performed By: #### C BC #### [facility] [address] [place] [address] Dr. Vivian Fall MONO # 0.2 103/ul Critically low 0.3-0.8 [facility] Comment on above: Performed By: #### C BC #### [facility] [address] [place] [address] Dr. Vivian Fall Monocytes/100 WBC (Bld) 3.5 % Normal 1.7-12.0 [facility] Comment on above: Performed By: #### C BC #### [facility] [address] [place] [address] Dr. Vivian Fall NEUT # 5.7 103/ul Normal 1.4-6.5 [facility] Comment on above: Performed By: #### C BC #### [facility] [address] [address] [address] Vivian Fall Neutrophils/100 WBC (Bld) 90.8 % Critically high 43.0-75.0 [facility] Comment on above: Performed By: #### C BC #### [facility] [address] [place] [address] Dr. Vivian Fall Platelet mean volume (Bld) [Entitic vol] 9.8 fL Normal 9.5-13.5 [facility] Comment on above: Performed By: #### C BC #### [facility] [address] [place] [address] Dr. Vivian Fall PLT 224 103/ul Normal 150-450 [facility] Comment on above: Performed By: #### C BC #### [facility] [address] [place] [address] Dr. Vivian Fall RBC 4.18 106/ul Critically low 4.20-5.40 [facility] Comment on above: Performed By: #### C BC #### [facility] [address] [place] [address] Dr. Vivian Fall WBC 6.3 103/ul Normal 4.0-11.0 [facility] Comment on above: Performed By: #### C BC #### [facility] [address] [place] [address] ABD/PELVIS WO CONon [...] BARBOZA Date: 2022-06-29 11:26 Normal [facility] CULTURE BLOODon 06-29-2022 Microscopic examination of blood, culture Culture Observations: NO GROWTH AT 5 DAYS. Isolate 1 BC_BA_NA Normal [facility] Comment on above: Performed By: #### P TT, PT #### [facility] [address] [place] [address] Dr. Vivian Fall Microscopic examination of blood, culture Culture Observations: NO GROWTH AT 5 DAYS. Isolate 1 BC_BA_NA Normal [facility] Comment on above: Performed By: #### P TT, PT #### [facility] [address] [place] [address] Dr. Vivian Fall CULTURE URINEon 06-29-2022 CULTURE URINE Culture Observations : NO GROWTH. Normal [facility] Comment on above: Performed By: #### P TT, PT #### [facility] [address] [place] [address] Dr. Vivian Fall Covid-19 PCR (CVDTB)on 06-03 SARS-CoV-2 (COVID-19) RNA JONY+probe Ql (Unsp spec) Not detected Normal NOT DETECTED [facility] Comment on above: Result Comment: [...] for this test is supported by the [place] of Health and Human Service's declaration that [...] Performed By: #### C VDTBH #### [facility] [address] [place] [address] Dr. Vivian Fall ER URINE PROFILEon 3 Bilirubin Ql (U) SMALL Abnormal NEGATIVE [facility] Comment on above: Performed By: #### P TT, PT #### [facility] [address] [place] [address] Dr. Vivian Fall Clarity (U) CLEAR Normal CLEAR [facility] Comment on above: Performed By: #### P TT, PT #### [facility] [address] [place] [address] Dr. Vivian Fall Color (U) DK. YELLOW Normal YELLOW [facility] Comment on above: Performed By: #### P TT, PT #### [facility] [address] [place] [address] Dr. Vivian LANGE A micrscopic examina tion will be performed if indicated. Normal [facility] Comment on above: Performed By: #### P TT, PT #### [facility] [address] [place] [address] Dr. Vivian Fall Glucose Ql (U) Negative Normal NEGATIVE [facility] Comment on above: Performed By: #### P TT, PT #### [facility] [address] [place] [address] Dr. Vivian Fall Hemoglobin Ql (U) TRACE-INTACT Abnormal NEGATIVE [facility] Comment on above: Performed By: #### P TT, PT #### [facility] [address] [place] [address] Dr. Vivian Fall Ketones Ql (U) Negative Normal NEGATIVE [facility] Comment on above: Performed By: #### P TT, PT #### [facility] [address] [place] [address] Dr. Vivian Fall LEUKOCYTES Negative Normal NEGATIVE [facility] Comment on above: Performed By: #### P TT, PT #### [facility] [address] [place] [address] Dr. Vivian Fall Nitrite Ql (U) Negative Normal NEGATIVE [facility] Comment on above: Performed By: #### P TT, PT #### [facility] [address] [place] [address] Dr. Vivian Fall pH (U) 6.0 [pH] Normal 5-9 [facility] Comment on above: Performed By: #### P TT, PT #### [facility] [address] [place] [address] Dr. Vivian Fall Protein (U) [Mass/Vol] 100 mg/dL Abnormal NEGAT DOROTHY/ TRACE [facility] Comment on above: Performed By: #### P TT, PT #### [facility] [address] [place] [address] Dr. Vivian Fall SPEC GRAVITY >=1.030 Abnormal 1.005-<=1.02 5 [facility] Comment on above: Performed By: #### P TT, PT #### [facility] [address] [place] [address] Dr. Vivian Fall UR MICRO IND INDICATED Normal [facility] Comment on above: Performed By: #### P TT, PT #### [facility] [address] [place] [address] Dr. Vivian Fall Urobilinogen Qn (U) 1.0 {Nia'U}/dL Normal 0.2 - 1. 0 [facility] Comment on above: Performed By: #### P TT, PT #### [facility] [address] [place] [address] Dr. Vivian Fall LACTATE/LACTIC ACIDon 2022 Lactate [Moles/Vol] 1.3 mmol/L Normal 0.4-1.9 [facility] Comment on above: Performed By: #### L ACT #### [facility] [address] [place] [address] Dr. Vivian Fall Lactate [Moles/Vol] 3.1 mmol/L Critically high 0.4-1.9 [facility] Comment on above: Performed By: #### L ACT #### [facility] [address] [place] [address] Dr. Vivian Fall LIPASEon 06-29-2022 Lipase [Catalytic activity/Vol] 88.0 U/L Normal 73.0-393.0 [facility] Comment on above: Performed By: #### L IPA #### [facility] [address] [place] [address] Dr. Vivian Fall PROF 14(COMP METB)on 023 Albumin [Mass/Vol] 3.4 g/dL Normal 3.4-5.0 [facility] Comment on above: Performed By: #### C MP, HSTROPN, BNP #### [facility] [address] [address] [address] Vivian Fall Albumin/Globulin [Mass ratio] 0.9 {ratio} Normal [facility] Comment on above: Performed By: #### C MP, HSTROPN, BNP #### [facility] [address] [address] [address] Vivian Fall ALP [Catalytic activity/Vol] 145 U/L Critically high 46-116 [facility] Comment on above: Performed By: #### C MP, HSTROPN, BNP #### [facility] [address] [address] [address] Vivian Fall ALT [Catalytic activity/Vol] 454 U/L Critically high 14-59 [facility] Comment on above: Performed By: #### C MP, HSTROPN, BNP #### [facility] [address] [address] [address] Vivian Fall Anion gap [Moles/Vol] 15.7 mmol/L Normal [facility] Comment on above: Performed By: #### C MP, HSTROPN, BNP #### [facility] [address] [address] [address] Vivian Fall AST [Catalytic activity/Vol] 404 U/L Critically high 15-37 [facility] Comment on above: Performed By: #### C MP, HSTROPN, BNP #### [facility] [address] [place] [address] Dr. Vivian Fall Bilirubin [Mass/Vol] 1.4 mg/dL Critically high 0.2-1.0 [facility] Comment on above: Performed By: #### C MP, HSTROPN, BNP #### [facility] [address] [address] [address] Vivian Fall Calcium [Mass/Vol] 8.7 mg/dL Normal 8.5-10.1 [facility] Comment on above: Performed By: #### C MP, HSTROPN, BNP #### [facility] [address] [address] [address] Vivian Fall Chloride [Moles/Vol] 94 mmol/L Critically low 98-107 [facility] Comment on above: Performed By: #### C MP, HSTROPN, BNP #### [facility] [address] [address] [address] Vivian Fall CO2 [Moles/Vol] 22.0 mmol/L Normal 21.0-32.0 [facility] Comment on above: Performed By: #### C MP, HSTROPN, BNP #### [facility] [address] [place] [address] Dr. Vivian Fall Creatinine [Mass/Vol] 1.30 mg/dL Critically high 0.55-1.02 [facility] Comment on above: Performed By: #### C MP, HSTROPN, BNP #### [facility] [address] [place] [address] Dr. Vivian Fall EGFR-AF RUSSIAN 50 mL/min/1.73m2 Critically low >=60 [facility] Comment on above: Performed By: #### C MP, HSTROPN, BNP #### [facility] [address] [place] [address] Dr. Vivian Fall EGFR-NON AF RUSSIAN 41 mL/min/1.73m2 Critically low >=60 [facility] Comment on above: Performed By: #### C MP, HSTROPN, BNP #### [facility] [address] [place] [address] Dr. Vivian Fall Globulin (S) [Mass/Vol] 3.7 g/dL Normal [facility] Comment on above: Performed By: #### C MP, HSTROPN, BNP #### [facility] [address] [place] [address] Dr. Vivian Fall Glucose [Mass/Vol] 166 mg/dL Critically high 74-106 [facility] Comment on above: Performed By: #### C MP, HSTROPN, BNP #### [facility] [address] [place] [address] Dr. Vivian Fall Potassium [Moles/Vol] 3.7 mmol/L Normal 3.5-5.1 [facility] Comment on above: Performed By: #### C MP, HSTROPN, BNP #### [facility] [address] [place] [address] Dr. Vivian Fall Protein [Mass/Vol] 7.1 g/dL Normal 6.4-8.2 [facility] Comment on above: Performed By: #### C MP, HSTROPN, BNP #### [facility] [address] [place] [address] Dr. Vivian Fall Sodium [Moles/Vol] 128 mmol/L Critically low 136-145 [facility] Comment on above: Performed By: #### C MP, HSTROPN, BNP #### [facility] [address] [place] [address] Dr. Vivian Fall Urea nitrogen [Mass/Vol] 15.0 mg/dL Normal 7.0-18.0 [facility] Comment on above: Performed By: #### C MP, HSTROPN, BNP #### [facility] [address] [place] [address] Dr. Vivian Fall Urea nitrogen/Creatinine [Mass ratio] 11.5 mg/mg Normal [facility] Comment on above: Performed By: #### C MP, HSTROPN, BNP #### [facility] [address] [place] [address] Dr. Vivian Fall PROTIMEon 06-29-2022 INR Coag (PPP) [Relative time] 1.08 {INR} Normal [facility] Comment on above: Performed By: #### P TT, PT #### [facility] [address] [place] [address] Dr. Vivian Fall INR GUIDELINES SEE BELOW Normal [facility] Comment on above: Result Comment: DEEJAY RED INR: 2.0 - 3.0 CONDITIONS NOT LISTED BELOW 2.5 - 3.5 FOR PROSTHETIC HEART VALVE REPLACEMENT 2.5 - 3.5 RECURRENT THROMBOSIS Performed By: #### P TT, PT #### [facility] [address] [place] [address] Dr. Vivian Fall PT Coag (PPP) [Time] 11.4 s Normal 9.0-11.6 [facility] Comment on above: Performed By: #### P TT, PT #### [facility] [address] [place] [address] Dr. Vivian Fall PTTon 06-29-2022 aPTT Coag (Bld) [Time] 32.2 s Normal 22.3-36.2 Th [facility] Comment on above: Performed By: #### P TT, PT #### [facility] [address] [place] [address] Dr. Vivian Fall TROPONIN, HIGH SENSITIVITYon 06-29-2022 HSTROP 5.8 pg/mL Normal 4.0-51.3 [facility] Comment on above: Result Comment: CUT- OFF POINTS HAVE BEEN ESTABLISHED BASED ON THE FOURTH UNIVERSAL DEFINITIONS OF MYOCARDIAL INFARCTION. THE UPPER REFERENCE LIMIT (URL) OF TROPONIN, DEFINED THE 99TH PERCENTILE OF cTnI DISTRIBUTION IN A REFERENCE POPULATION, HAS BEEN CONFIRMED THE DECISION THRESHOLD FOR NH DIAGNOSIS. Performed By: #### C MP, HSTROPN, BNP #### [facility] [address] [place] [address] Dr. Vivian Fall URINE MICROSCOPIC ONLYon BACTERIA SMALL Abnormal NONE SEEN [facility] Comment on above: Performed By: #### P TT, PT #### [facility] [address] [place] [address] Dr. Vivian Fall Bacteria identified Cx Nom (U) INDICATED Normal [facility] Comment on above: Performed By: #### P TT, PT #### [facility] [address] [place] [address] Dr. Vivian Fall CAST NONE SEEN Normal NONE SEEN [facility] Comment on above: Performed By: #### P TT, PT #### [facility] [address] [place] [address] Dr. Vivian Fall Crystals LM Nom (Urine sed) NONE SEEN Normal NONE SEEN [facility] Comment on above: Performed By: #### P TT, PT #### [facility] [address] [place] [address] Dr. Vivian Fall Epithelial cells LM Ql (Urine sed) FEW Abnormal NONE SEEN /RARE [facility] Comment on above: Performed By: #### P TT, PT #### [facility] [address] [address] [address] Vivian Fall MUCOUS SMALL Abnormal NONE SEEN [facility] Comment on above: Performed By: #### P TT, PT #### [facility] [address] [address] [address] Vivian Fall RBC 0-2 Normal 0-2 [facility] Comment on above: Performed By: #### P TT, PT #### [facility] [address] [id number] Vivian Fall WBC 0-2 Abnormal NONE SEEN [facility] Comment on above: Performed By: #### P TT, PT #### [facility] [address] [address] [address] Vivian Fall XR CHEST 1 Von 06-29-2022 XR CHEST 1 V EXAM: XR CHEST 1 V HISTORY: Altered mental status COMPARISON: None. TECHNIQUE: Frontal view of the chest. FINDINGS: No focal consolidations or pleural effusions. Cardiomegaly. Thoracic spine spondylosis. IMPRESSION: No acute disease. Cardiomegaly. Electronically authenticated by: ZEYAD SOFIA Date: 2022-06-29 10:38 Normal [facility] Office Visit (Cardiology)on 06-01-2022 Follow-up visit Diagnoses/Problems Assessed Abnormal echocardiogram (793.2) (R93.1) Never a smoker Hypothyroidism (244.9) (E03.9) Added by Problem List Migration; 2013-02-28; Moved to [facility] Mar 24 2013 9:03PM Hyperlipidemia (272.4) [...] Social H (more content not included)... Normal [employer] Tobacco Screening.on 023 Adult depression screening assessment No [facility] [employer] 250 DO Work Phone: Fall risk assessment a) No falls within the last year [facility] [employer] 250 DO Work Phone: Tobacco use status [facility] b) No M -[facility] [employer] 250 DO Work Phone: ECHOCARDIO M/2D COMPLETEon 0 05-11-2022 ECHOCARDIO M/2D COMPLETE Patient: BETTE VILLAFANA Exam Date: 05/11/2022 : 1955 Gender:F Ordering : DR ZULMA SINGH Admission #: [id number] Family : Order #: [id number] CLICK HERE TO VIEW EXAM ECHOCARDIOGRAM REPORT [...] Alarcon M.D. on 05/13/2022 at 10:52 Normal [facility] MAMM SCREEN 3D ALFA CADon 05-11-2022 MG MAMM SCREEN 3D ALFA CAD Patient: BETTE VILLAFANA Exam Date: 05/11/2022 : 1955 Gender:F Ordering : DR ZULMA MOE PA Admission #: [id number] Family : Order #: [id number] CLICK HERE TO VIEW EXAM RADIOLOGY REPORT [...] cancer at age 52. LOCATION: [facility] BREAST COMPOSITION: Almost entirely fatty. [...] on 05/11/2022 at 14:26 Normal [facility] Established Visit (Otolaryng ology)on 02-09-2022 [...] Recorded: 09Feb2022 03:01PM Height5 ft 4 in Hdezog188 lb BMI Bsrfglemwg08.35 kg/m2 BSA Calculated2.22 Tobacco Useb) No Falls [...] Feb 09 2022 3:21PM EST (Author) Normal [employer] Tobacco Screening.on 022 Fall risk assessment c) Not medically indicated [employer] Work Phone: Tobacco use status [facility] b) No M [employer] Work Phone: Reference Laboratory Testing Ordered By: [facility] [employer] on 05-15-2021 SARS-CoV-2 (COVID-19) RNA JONY+probe Ql (Resp) Not detected Invalid Interpretation Code Not Detected [facility] [employer] Comment on above: Result Comment: This nucleic acid amplification test was developed and its performance characteristics determined by [employer]. Nucleic acid amplification tests include RT-PCR and [...] detected) result in this assay. Performed at: [address] [id number] PhD Anita [facility] Tobacco Screening.on 021 Fall risk assessment a) No falls within the last year [employer] Work Phone: Tobacco use status [facility] b) No M [employer] Work Phone: Coronavirus 2019 RNA by PCR, Screening Asymptomticon 03-17-2021 Coronavirus 2019 RNA by PCR, Screening Asymptomtic Not detected Normal See Below [employer] Work Phone: Comment on above: SOURCE: Nasal, [...] make patient management decisions.Fact sheet for providers: https://www.fda.gov/media/524118/downloadFact sheet for patients: https://www.fda.gov/media/497056/downloadThis test has received FDA Emergency Use Authorization (EUA) and has been verified by [facility] ([facility]). This test is only authorized for the duration of time that circumstances exist to justify the authorization of the emergency use of in vitro diagnostic tests for the detection of SARS-CoV-2 virus and/or diagnosis of COVID-19 infection under section 564(b)(1) of the Act, 21 U.S.C. 360bbb-3(b)(1), unless the authorization is terminated or revoked sooner. [facility] is certified under CLIA-88 as qualified to perform high complexity testing. Testing is performed in the [facility] laboratories located at [address] [place] [address]. Laboratory - Blood bankon ABO group Nom (Bld) O MG-[employer] Work Phone: [phone] Blood group antibody screen Ql Negative MG-[facility] Work Phone: [phone] Rh immune globulin screen (Bld) [Interp] Positive MG-Otolary n [employer] Work Phone: [phone] Laboratory - Chemistry and C hemistry - challengeon 03-13-2021 Anion gap [Moles/Vol] 13 mmol/L 10 - 20 MG- Otolaryn gology-Gabriela man Work Phone: [phone] Calcium [Mass/Vol] 9.3 mg/dL 8.6 - 10.6 MG-Efra laryn [employer]ology-[employer] Work Phone: [phone] Chloride [Moles/Vol] 102 mmol/L 98 - 107 MG-O andreas garcia-Gabriela man Work Phone: [phone] CO2 [Moles/Vol] 28 mmol/L 21 - 32 MG-Otolar ryleen yanicky-Gabriela man Work Phone: [phone] Creatinine [Mass/Vol] 0.77 mg/dL See Below MG- Otolaryn shleiaogy-Gabriela man Work Phone: [phone] Comment on above: Reference Range: 0.5 0 - 1.05 Glucose [Mass/Vol] 95 mg/dL 74 - 99 MG-Efra marthayn yanicky-Gabriela man Work Phone: [phone] Potassium [Moles/Vol] 5.2 mmol/L 3.5 - 5.3 MG- Otolaryn yanicky-Gabriela man Work Phone: [phone] Sodium [Moles/Vol] 138 mmol/L 136 - 145 MG-[place] marthayn yanicky-Gabriela man Work Phone: [phone] Urea nitrogen [Mass/Vol] 19 mg/dL 6 - 23 MG-Otolaryn yanicky-Gabriela man Work Phone: [phone] Laboratory - Hematology and Cell countson 03-13-2021 Erythrocyte distribution width (RBC) [Ratio] 12.8 % See Below MG-Otolaryn yanicky-Gabriela man Work Phone: [phone] Comment on above: Reference Range: 11. 5 - 14.5 Hematocrit (Bld) [Volume fraction] 38.6 % See Below MG-Otolaryn sheliaogy-Gabriela man Work Phone: [phone] Comment on above: Reference Range: 36. 0 - 46.0 Hemoglobin (Bld) [Mass/Vol] 11.8 g/dL below low threshold See Below MG-Otolaryn sheliaogy-Gabriela man Work Phone: [phone] Comment on above: Reference Range: 12. 0 - 16.0 MCHC (RBC) [Mass/Vol] 30.6 g/dL below low threshold See Below MG-Otolaryn yanicky-Gabriela man Work Phone: [phone] Comment on above: Reference Range: 32. 0 - 36.0 MCV (RBC) [Entitic vol] 96 fL 80 - 100 M G-Otolaryn gology-Gabriela man Work Phone: [phone] Platelets (Bld) [#/Vol] 325 10*3/uL 150 - 450 MG-Otolaryn gology-Gabriela man Work Phone: [phone] RBC (Bld) [#/Vol] 4.01 {x10E12/L} See Below MG -Otolaryn gology-Gabriela man Work Phone: [phone] Comment on above: Reference Range: 4.0 0 - 5.20 WBC (Bld) [#/Vol] 8.6 10*3/uL 4.4 - 11.3 MG-[place] laryn gology-Gabriela man Work Phone: [phone] No Panel Informationon 03-13 >60 >60 MG-Otolaryn gology-Gabriela man Work Phone: [phone] Comment on above: CALCULATIONS OF HUANG MATED GFR ARE PERFORMED USING THE MDRD STUDY EQUATION FOR THE IDMS-TRACEABLE CREATININE METHODS. CLIN CHEM 2007;53:766-72 0.0 {/100_WBC} 0.0-0.0 MG-Otolary n gology-Gabriela man Work Phone: [phone] [email or web address]?RetrieveTestByDateTim e?QoqysofEV=[id number]&Da te=04-11-2021&Time=10%3a 52%3a43%3a00&TestType=EC G&Site=1&OutputType=PDF& Ext=PDF MG-Otolaryn gology-Gabriela man Work Phone: [phone] Normal sinus rhythm MG-Ot olaryn gology-Gabriela man Work Phone: [phone] Normal MG-Otolaryn gology-Gabriela man Work Phone: [phone] MG-Otolaryn gology-Gabriela man Work Phone: [phone] MG-Otolaryn gology-Gabriela man Work Phone: [phone] 199 1 MG-Otolaryn gology-[employer]riela man Work Phone: [phone] 140 1 MG-Otolaryn gology-Gabriela man Work Phone: [phone] 218 1 MG-Otolaryn gology-Gabriela man Work Phone: [phone] 12 1 MG-Otolaryn gology-Gabriela man Work Phone: 40 1 MG-Otolaryn gology-[employer]riela man Work Phone: [phone] 59 1 MG-Otolaryn gology-Gabriela man Work Phone: [phone] [phone] 1 MG-Otolaryn gology-Gabriela man Work Phone: [phone] 432 1 MG-Otolaryn gology-Gabriela man Work Phone: [phone] 1 MG-Otolaryn gology-Gabriela man Work Phone: 86 1 MG-Otolaryn gology-Gabriela man Work Phone: [phone] 156 1 MG-Otolaryn gology-Gabriela man Work Phone: [phone] 74 1 MG-Otolaryn gology-Gabriela man Work Phone: [phone] Chest without Contraston 03-03-2021 CT Chest WO contrast Normal MG-O tolaryn [employer] Work Phone: Tobacco Screening.on Fall risk assessment a) No falls within the last year MG-Otolaryn [employer] Work Phone: Tobacco use status [facility] b) No M G-Otolaryn [employer] Work Phone: Tobacco Screening.on Fall risk assessment c) Not medically indicated MG-Otolaryn [employer] Work Phone: Tobacco use status [facility] b) No M G-Otolaryn [employer] Work Phone: Vital Signs Date Time Vital Sign Value Performing Clinician Facility 01-02-2025 13:07-0400 Body height 160.81 cm Bello Hilton II Work Phone: [facility] 01-02-2025 13:07-0400 Body mass index (BMI) [Ratio] 46.3 kg/m2 Bello Hilton II Work Phone: [facility] 01-02-2025 13:07-0400 Body weight 119.95 kg Bello Hilton II Work Phone: [facility] 01-02-2025 13:07-0400 Diastolic blood pressure 77 mm[Hg] Bello Hilton II Work Phone: [facility] 01-02-2025 13:07-0400 Heart rate 85 /min Bello Hilton II Work Phone: [facility] 01-02-2025 13:07-0400 Respiratory rate 20 /min Bello Hilton II Work Phone: [facility] 01-02-2025 13:07-0400 SaO2% (BldA) [Mass fraction] 96 % Bello Hilton II Work Phone: [facility] 01-02-2025 13:07-0400 Systolic blood pressure 105 mm[Hg] Bello Hilton II Work Phone: [facility] 12-13-2024 09:32-0400 Body height 162.56 cm Bello Hilton II Work Phone: [facility] 12-13-2024 09:32-0400 Body mass index (BMI) [Ratio] 48.4 kg/m2 Bello Hilton II Work Phone: [facility] 12-13-2024 09:32-0400 Body weight 127.91 kg Bello Hilton II Work Phone: [facility] 12-13-2024 09:32-0400 Diastolic blood pressure 74 mm[Hg] Bello Hilton II Work Phone: [facility] 12-13-2024 09:32-0400 Heart rate 84 /min Bello Hilton II Work Phone: [facility] 12-13-2024 09:32-0400 Respiratory rate 18 /min Bello Hilton II Work Phone: [facility] 12-13-2024 09:32-0400 SaO2% (BldA) [Mass fraction] 93 % Bello Hilton II Work Phone: [facility] 12-13-2024 09:32-0400 Systolic blood pressure 124 mm[Hg] Bellojered Hilton II Work Phone: [facility] 11-07-2024 13:40-0400 Body height 160.81 cm Bello Hilton II Work Phone: [facility] 11-07-2024 13:40-0400 Body mass index (BMI) [Ratio] 46.8 kg/m2 Bello Hilton II Work Phone: [facility] 11-07-2024 13:40-0400 Body weight 121.2 kg Bello Hilton II Work Phone: [facility] 11-07-2024 13:40-0400 Diastolic blood pressure 65 mm[Hg] Bello Hilton II Work Phone: [facility] 11-07-2024 13:40-0400 Heart rate 82 /min Bellojered Hilton II Work Phone: [facility] 11-07-2024 13:40-0400 Respiratory rate 20 /min Bello Hilton II Work Phone: [facility] 11-07-2024 13:40-0400 SaO2% (BldA) [Mass fraction] 96 % Bellojered Hilton II Work Phone: [facility] 11-07-2024 13:40-0400 Systolic blood pressure 104 mm[Hg] Bello Hilton II Work Phone: [facility] 09-19-2024 14:26-0400 Body height 160.91 cm Bello Hilton II Work Phone: [facility] 09-19-2024 [phone] Body mass index (BMI) [Ratio] 46.8 kg/m2 Bello Hilton II Work Phone: [facility] 09-19-2024 14:26-0400 Body weight 121.25 kg Bello Hilton II Work Phone: [facility] 09-19-2024 14:26-0400 Diastolic blood pressure 75 mm[Hg] Bello Hilton II Work Phone: [facility] 09-19-2024 14:26-0400 Heart rate 80 /min Bello Hilton II Work Phone: [facility] 09-19-2024 14:26-0400 Respiratory rate 20 /min Bello Hilton II Work Phone: [facility] 09-19-2024 14:26-0400 SaO2% (BldA) [Mass fraction] 96 % Bello Hilton II Work Phone: [facility] 09-19-2024 14:26-0400 Systolic blood pressure 121 mm[Hg] Bello Hilton II Work Phone: [facility] 09-18-2024 10:30-0400 Body height 165.1 cm Cristina Hubbard [employer]OSPICE [employer]TEER Work Phone: [facility] 09-18-2024 10:30-0400 Body mass index (BMI) [Ratio] 44.6 kg/m2 Cristina Hubbard HOSPICE V[employer]UNTEER Work Phone: [facility] 09-18-2024 10:30-0400 Body weight 121.56 kg Cristina Hubbard HOSPICE V[employer]TEER Work Phone: [facility] 09-18-2024 10:30-0400 Diastolic blood pressure 80 mm[Hg] Cristina Hubbard HOSPICE VOLUNTEER Work Phone: [facility] 09-18-2024 10:30-0400 Heart rate 80 /min Cristina Hubbard HOSPICE V[employer]UNTEER Work Phone: [facility] 09-18-2024 10:30-0400 SaO2% (BldA) [Mass fraction] 95 % Cristina Hubbard HOSPICE VOLUNTEER Work Phone: [facility] 09-18-2024 10:30-0400 Systolic blood pressure 122 mm[Hg] Cristina Hubbard HOSPICE VOLUNTEER Work Phone: [facility] 09-03-2024 13:36-0400 Body height 165.1 cm Zulma Hemmer PA Work Phone: [facility] 09-03-2024 13:36-0400 Body mass index (BMI) [Ratio] 44.73 kg/m2 Zulma Hemmer PA Work Phone: [facility] 09-03-2024 13:36-0400 Body weight 121.93 kg Zulma Hemmer PA Work Phone: [facility] 09-03-2024 13:36-0400 Diastolic blood pressure 68 mm[Hg] Zulma Hemmer PA Work Phone: [facility] 09-03-2024 13:36-0400 Heart rate 81 /min Zulma Hemmer PA Work Phone: [facility] 09-03-2024 13:36-0400 Respiratory rate 16 /min Zulma Hemmer PA Work Phone: [facility] 09-03-2024 13:36-0400 SaO2% (BldA) [Mass fraction] 95 % Zulma Hemmer PA Work Phone: [facility] 09-03-2024 13:36-0400 Systolic blood pressure 112 mm[Hg] Zulma Hemmer PA Work Phone: [facility] 07-19-2024 09:44-0400 Body height 164.5 cm Dominic Saldana MD Work Phone: [facility] 07-19-2024 09:44-0400 Body mass index (BMI) [Ratio] 44.27 kg/m2 Dominic Saldana MD Work Phone: [facility] 07-19-2024 09:44-0400 Body temperature 97.5 [degF] Dominic Saldana MD Work Phone: [facility] 07-19-2024 09:44-0400 Body weight 119.75 kg Dominic Sladana MD Work Phone: [facility] 07-19-2024 09:44-0400 Diastolic blood pressure 74 mm[Hg] Dominic Saldana MD Work Phone: [facility] 07-19-2024 09:44-0400 Systolic blood pressure 134 mm[Hg] Dominic Saldana MD Work Phone: [facility] 07-04-2024 14:06-0500 Diastolic blood pressure 66 mm[Hg] Bello Hilton II Work Phone: [facility] 07-04-2024 14:06-0500 Heart rate 77 /min Bello Hilton II Work Phone: [facility] 07-04-2024 14:06-0500 Respiratory rate 18 /min Bello Hilton II Work Phone: [facility] 07-04-2024 14:06-0500 SaO2% (BldA) [Mass fraction] 95 % Bello Hilton II Work Phone: [facility] 07-04-2024 14:06-0500 Systolic blood pressure 124 mm[Hg] Bello Hilton II Work Phone: [facility] 04-10-2024 08:36-0500 Body height 162.6 cm Dominic Saldana MD Work Phone: [facility] 04-10-2024 08:36-0500 Body mass index (BMI) [Ratio] 45.49 kg/m2 Dominic Saldana MD Work Phone: [facility] 04-10-2024 08:36-0500 Body temperature 97.9 [degF] Dominic Saldana MD Work Phone: [facility] 04-10-2024 08:36-0500 Body weight 120.2 kg Dominic Saldana MD Work Phone: [facility] 04-10-2024 08:36-0500 Diastolic blood pressure 75 mm[Hg] Dominic Saldana MD Work Phone: [facility] 04-10-2024 08:36-0500 Heart rate 77 /min Dominic Saldana MD Work Phone: [facility] 04-10-2024 08:36-0500 Systolic blood pressure 123 mm[Hg] Dominic Saldana MD Work Phone: [facility] 02-21-2024 13:25-0400 Body height 162.6 cm Ronnie Murphy MD Work Phone: [facility] 02-21-2024 13:25-0400 Body mass index (BMI) [Ratio] 44.11 kg/m2 Ronnie Murphy MD Work Phone: [facility] 02-21-2024 13:25-0400 Body weight 116.57 kg Ronnie Murphy MD Work Phone: [facility] 02-14-2024 08:57-0400 Body height 165.1 cm Cristina Hubbard NP Work Phone: [facility] 02-14-2024 08:57-0400 Body mass index (BMI) [Ratio] 43.93 kg/m2 Cristina Hubbard HOSPICE VOLUNTEER Work Phone: [facility] 02-14-2024 08:57-0400 Body weight 119.75 kg Cristina Hubbard HOSPICE VOLUNTEER Work Phone: [facility] 02-14-2024 08:57-0400 Diastolic blood pressure 66 mm[Hg] Cristina Hubbard HOSPICE VOLUNTEER Work Phone: [facility] 02-14-2024 08:57-0400 Heart rate 81 /min Cristina Hubbard HOSPICE VOLUNTEER Work Phone: [facility] 02-14-2024 08:57-0400 SaO2% (BldA) [Mass fraction] 95 % Cristina Hubbard HOSPICE VOLUNTEER Work Phone: [facility] 02-14-2024 08:57-0400 Systolic blood pressure 128 mm[Hg] Cristina Hubbard HOSPICE VOLUNTEER Work Phone: [facility] 12-20-2023 11:22-0400 Body height 164.08 cm II Bello Hilton Work Phone: [facility] 12-20-2023 11:22-0400 Body mass index (BMI) [Ratio] 43.5 kg/m2 II Bello Hilton Work Phone: [facility] 12-20-2023 11:22-0400 Body weight 117.22 kg II Bello Hilton Work Phone: [facility] 12-20-2023 11:22-0400 Diastolic blood pressure 73 mm[Hg] II Bello Hilton Work Phone: [facility] 12-20-2023 11:22-0400 Heart rate 79 /min II Bello Hilton Work Phone: [facility] 12-20-2023 11:22-0400 Respiratory rate 18 /min II Bello Hilton Work Phone: [facility] 12-20-2023 11:22-0400 SaO2% (BldA) [Mass fraction] 96 % II Bello Hilton Work Phone: [facility] 12-20-2023 11:22-0400 Systolic blood pressure 114 mm[Hg] II Bello Hilton Work Phone: [facility] 10-19-2023 11:10-0400 Body height 164.08 cm II Bello Hilton Work Phone: [facility] 10-19-2023 11:10-0400 Body mass index (BMI) [Ratio] 43.3 kg/m2 II Bello Hilton Work Phone: [facility] 10-19-2023 11:10-0400 Body weight 116.62 kg II Bello Hilton Work Phone: [facility] 10-19-2023 11:10-0400 Diastolic blood pressure 69 mm[Hg] II Bello Hilton Work Phone: [facility] 10-19-2023 11:10-0400 Heart rate 76 /min II Bello Hilton Work Phone: [facility] 10-19-2023 11:10-0400 Respiratory rate 18 /min II Bello Hilton Work Phone: [facility] 10-19-2023 11:10-0400 SaO2% (BldA) [Mass fraction] 97 % II Bello Hilton Work Phone: [facility] 10-19-2023 11:10-0400 Systolic blood pressure 117 mm[Hg] II Bello Hilton Work Phone: [facility] 10-05-2023 10:09-0400 Body height 164.08 cm II Bello Hilton Work Phone: [facility] 10-05-2023 10:09-0400 Body mass index (BMI) [Ratio] 42.8 kg/m2 II Bello Hilton Work Phone: [facility] 10-05-2023 10:09-0400 Body temperature 96.6 [degF] II Bello Hilton Work Phone: [facility] 10-05-2023 10:09-0400 Body weight 115.32 kg II Bello Hilton Work Phone: [facility] 10-05-2023 10:09-0400 Diastolic blood pressure 80 mm[Hg] II Bello Hilton Work Phone: [facility] 10-05-2023 10:09-0400 Heart rate 90 /min II Bello Hilton Work Phone: [facility] 10-05-2023 10:09-0400 Respiratory rate 18 /min II Bello Hilton Work Phone: [facility] 10-05-2023 10:09-0400 SaO2% (BldA) [Mass fraction] 96 % II Bello Hilton Work Phone: [facility] 10-05-2023 10:09-0400 Systolic blood pressure 130 mm[Hg] II Bello Hilton Work Phone: [facility] 08-09-2023 11:20-0400 Body height 165.1 cm II Bello Hilton Work Phone: [facility] 08-09-2023 11:20-0400 Body mass index (BMI) [Ratio] 43.2 kg/m2 II Bello Hilton Work Phone: [facility] 08-09-2023 11:20-0400 Body weight 117.67 kg II Bello Hilton Work Phone: [facility] 08-09-2023 11:20-0400 Diastolic blood pressure 76 mm[Hg] II Bello Hilton Work Phone: [facility] 08-09-2023 11:20-0400 Heart rate 73 /min II Bello Hilton Work Phone: [facility] 08-09-2023 11:20-0400 Respiratory rate 18 /min II Bello Hilton Work Phone: [facility] 08-09-2023 11:20-0400 SaO2% (BldA) [Mass fraction] 96 % II Bello Hilton Work Phone: [facility] 08-09-2023 11:20-0400 Systolic blood pressure 138 mm[Hg] II Bello Hilton Work Phone: [facility] 08-06-2023 11:30-0400 Diastolic blood pressure 70 mm[Hg] II Bello Hilton Work Phone: [facility] 08-06-2023 11:30-0400 Heart rate 76 /min II Bello Hilton Work Phone: [facility] 08-06-2023 11:30-0400 Respiratory rate 18 /min II Bello Hilton Work Phone: [facility] 08-06-2023 11:30-0400 SaO2% (BldA) [Mass fraction] 95 % II Bello Hilton Work Phone: [facility] 08-06-2023 11:30-0400 Systolic blood pressure 142 mm[Hg] II Bello Hilton Work Phone: [facility] 08-06-2023 10:34-0400 Body height 166.37 cm II Bello Hilton Work Phone: [facility] 08-06-2023 10:34-0400 Body weight 117 kg II Bello Hilton Work Phone: [facility] 08-06-2023 10:33-0400 Body temperature 98.6 [degF] II Bello Hilton Work Phone: [facility] 07-05-2023 11:09-0500 Body height 165.1 cm II Bello Hilton Work Phone: [facility] 07-05-2023 11:09-0500 Body mass index (BMI) [Ratio] 41.3 kg/m2 II Bello Hilton Work Phone: [facility] 07-05-2023 11:09-0500 Body weight 112.71 kg II Bello Hilton Work Phone: [facility] 06-07-2023 10:30-0500 Body height 165.1 cm Lilliam Scally Other [employer] Other 06-07-2023 10:30-0500 Body mass index (BMI) [Ratio] 41.71 kg/m2 Lilliam Scally Other [employer] Other 06-07-2023 10:30-0500 Body weight 113.72 kg Lilliam Scally Other [employer] Other 06-07-2023 10:30-0500 Diastolic blood pressure 72 mm[Hg] Lilliamjose g Schroederly Other [employer] Other 06-07-2023 10:30-0500 Respiratory rate 18 /min Lilliamjose g Schroederly Other [employer] Other 06-07-2023 10:30-0500 SaO2% (BldA) [Mass fraction] 97 % Lilliam Schroederly Other [employer] Other 06-07-2023 10:30-0500 Systolic blood pressure 114 mm[Hg] Lilliam Scally Other [employer] Other 06-03-2023 08:24-0500 Diastolic blood pressure 78 mm[Hg] Emiliano Lagos [facility] [place] 06-03-2023 08:24-0500 Heart rate 91 /min Emiliano Lagos [facility] [place] 06-03-2023 08:24-0500 Systolic blood pressure 109 mm[Hg] Emiliano Lagos [facility] [place] 02-22-2023 14:36-0400 Body height 163.8 cm Ronnie Murphy MD Work Phone: [facility] 02-22-2023 14:36-0400 Body mass index (BMI) [Ratio] 43.09 kg/m2 Ronnie Murphy MD Work Phone: [facility] 02-22-2023 14:36-0400 Body weight 115.67 kg Ronnie Murphy MD Work Phone: [facility] 02-15-2023 13:00-0400 Body height 165.1 cm Nikki Manning Other [employer] Other 02-15-2023 13:00-0400 Body mass index (BMI) [Ratio] 42.16 kg/m2 Nikki Fitt Other [employer] Other 02-15-2023 13:00-0400 Body weight 114.94 kg Nikki Fitt Other [employer] Other 02-01-2023 10:15-0400 Body height 165.1 cm Lilliam Scally Other [employer] Other 02-01-2023 10:15-0400 Body mass index (BMI) [Ratio] 42.2 kg/m2 Lilliam Scally Other [employer] Other 02-01-2023 10:15-0400 Body weight 115.03 kg Lilliam Scally Other [employer] Other 02-01-2023 10:15-0400 Diastolic blood pressure 78 mm[Hg] Lilliam Scally Other [employer] Other 02-01-2023 10:15-0400 Respiratory rate 20 /min Lilliam Scally Other [employer] Other 02-01-2023 10:15-0400 SaO2% (BldA) [Mass fraction] 96 % Lilliam Scally Other [employer] Other 02-01-2023 10:15-0400 Systolic blood pressure 130 mm[Hg] Lilliam Scally Other [employer] Other 12-22-2022 13:00-0400 Body height 165.1 cm Nikki Fitt Other [employer] Other 12-22-2022 13:00-0400 Body mass index (BMI) [Ratio] 41.73 kg/m2 Nikki Fitt Other [employer] Other 12-22-2022 13:00-0400 Body weight 113.76 kg Nikki Fitt Other [employer] Other 10-19-2022 10:15-0400 Body height 165.1 cm Lilliam Scally Other [employer] Other 10-19-2022 10:15-0400 Body mass index (BMI) [Ratio] 41.41 kg/m2 Lilliam Scally Other [employer] Other 10-19-2022 10:15-0400 Body weight 112.9 kg Lilliam Scally Other [employer] Other 10-19-2022 10:15-0400 Diastolic blood pressure 72 mm[Hg] Lilliam Scally Other [employer] Other 10-19-2022 10:15-0400 Respiratory rate 18 /min Lilliam Scally Other [employer] Other 10-19-2022 10:15-0400 SaO2% (BldA) [Mass fraction] 96 % Lilliam Scally Other [employer] Other 10-19-2022 10:15-0400 Systolic blood pressure 110 mm[Hg] Lilliam Scally Other [employer] Other 10-19-2022 08:15-0400 Body height 165.1 cm Nikki Fitt Other [employer] Other 07-27-2022 10:45-0400 Body height 165.1 cm Lilliam Scally Other [employer] Other 07-27-2022 10:45-0400 Body mass index (BMI) [Ratio] 41.08 kg/m2 Lilliam Scally Other [employer] Other 07-27-2022 10:45-0400 Body weight 111.99 kg Lilliam Scally Other [employer] Other 07-27-2022 10:45-0400 Diastolic blood pressure 72 mm[Hg] Lilliam Scally Other [employer] Other 07-27-2022 10:45-0400 Respiratory rate 20 /min Lilliam Scally Other [employer] Other 07-27-2022 10:45-0400 SaO2% (BldA) [Mass fraction] 97 % Lilliam Scally Other [employer] Other 07-27-2022 10:45-0400 Systolic blood pressure 109 mm[Hg] Lilliam Scally Other [employer] Other 06-15-2022 09:15-0500 Body height 165.1 cm Nikki Fitt Other [employer] Other 06-01-2022 13:03-0500 Body height 163.83 cm Gopi Solis MD Work Phone: [facility] DO Work Phone: 06-01-2022 13:03-0500 Body mass index (BMI) [Ratio] 43.6 kg/m2 Gopi Solis MD Work Phone: [facility] DO Work Phone: 06-01-2022 13:03-0500 Body surface area Derived from formula 2.19 m2 Gopi Solis MD Work Phone: [facility] [facility] DO Work Phone: 06-01-2022 13:03-0500 Body weight 117.03 kg Gopi Solis MD Work Phone: [facility] DO Work Phone: 06-01-2022 13:03-0500 Diastolic blood pressure 62 mm[Hg] Gopi Solis MD Work Phone: [facility] DO Work Phone: 06-01-2022 13:03-0500 Heart rate 76 /min Gopi Solis MD Work Phone: [facility] DO Work Phone: 06-01-2022 13:03-0500 Systolic blood pressure 126 mm[Hg] Gopi Solis MD Work Phone: [facility] DO Work Phone: 06-01-2022 12:30-0500 Body height 165.1 cm Lilliam Dexter Other [employer] Other 06-01-2022 12:30-0500 Body mass index (BMI) [Ratio] 42.85 kg/m2 Lilliam Dexter Other [employer] Other 06-01-2022 12:30-0500 Body weight 116.8 kg Lilliam Scally Other [employer] Other 06-01-2022 12:30-0500 Diastolic blood pressure 70 mm[Hg] Lilliam Scally Other [employer] Other 06-01-2022 12:30-0500 Respiratory rate 20 /min Lilliam Scally Other [employer] Other 06-01-2022 12:30-0500 SaO2% (BldA) [Mass fraction] 97 % Lilliam Scally Other [employer] Other 06-01-2022 12:30-0500 Systolic blood pressure 112 mm[Hg] Lilliam Scally Other [employer] Other 02-09-2022 15:01-0400 Body height 162.56 cm oRnnie Murphy MD Work Phone: PC-Iqxemrhljtxemp-Faq [place] Work Phone: 02-09-2022 15:01-0400 Body mass index (BMI) [Ratio] 46.35 kg/m2 Ronnie Murphy MD Work Phone: LW-Kcbkmxzrxsimof-Mko [place] Work Phone: 02-09-2022 15:01-0400 Body surface area Derived from formula 2.22 m2 Ronnie Murphy MD Work Phone: GW-Jcphnjwcogkbmd-Fsd [place] Work Phone: 02-09-2022 15:01-0400 Body weight 122.47 kg Ronnie Murphy MD Work Phone: OI-Lnjydxwsmrbcck-Zdi [place] Work Phone: 03-31-2021 15:33-0500 Body height 162.56 cm Ronnie Murphy MD Work Phone: IP-Hunrzrkylgoqfp-Gpe [place] Work Phone: 03-31-2021 15:33-0500 Body mass index (BMI) [Ratio] 46.52 kg/m2 Ronnie Murphy MD Work Phone: RQ-Atxgevoflfysyr-Cgw [place] Work Phone: 03-31-2021 15:33-0500 Body surface area Derived from formula 2.23 m2 Ronnie Murphy MD Work Phone: FL-Gemtbdbydszkxk-Eak [place] Work Phone: 03-31-2021 15:33-0500 Body temperature 97.2 [degF] Ronnie Murphy MD Work Phone: XG-Fmpzgtqpcyvsnz-Otz [place] Work Phone: 03-31-2021 15:33-0500 Body weight 122.93 kg Ronnie Murphy MD Work Phone: QS-Msktpnuyoipznm-Yuz [place] Work Phone: 03-03-2021 12:52-0400 Body height 162.56 cm Ronnie Murphy MD Work Phone: LZ-Jeaxflljjanfng-Ryb [place] Work Phone: 03-03-2021 12:52-0400 Body mass index (BMI) [Ratio] 46.35 kg/m2 Ronnie Murphy MD Work Phone: YI-Kichknxlcwthue-Drr [place] Work Phone: 03-03-2021 12:52-0400 Body surface area Derived from formula 2.22 m2 Ronnie Murphy MD Work Phone: MF-Pbrcfqwowgsuxh-Cgr [place] Work Phone: 03-03-2021 12:52-0400 Body weight 122.47 kg Ronnie Murphy MD Work Phone: BT-Ozojeqavgcoioo-Jjj [place] Work Phone: 02-10-2021 15:05-0400 Body height 162.56 cm Ronnie Murphy MD Work Phone: YF-Ingdkftqovphhd-Rip [place] Work Phone: 02-10-2021 15:05-0400 Body mass index (BMI) [Ratio] 46 kg/m2 Ronnie Murphy MD Work Phone: JQ-Tttcmmmozmmjlk-Ciu [place] Work Phone: 02-10-2021 15:05-0400 Body surface area Derived from formula 2.22 m2 Ronnie Murphy MD Work Phone: NE-Yijqjrtfwkjjum-Sae [place] Work Phone: 02-10-2021 15:05-0400 Body temperature 97.4 [degF] Ronnie Murphy MD Work Phone: QI-Vpxatfhryewvhg-Ocg [place] Work Phone: 02-10-2021 15:05-0400 Body weight 121.56 kg Ronnie Murphy MD Work Phone: PY-Mgulsbztiynhak-Hmx tlake Work Phone: Encounters Encounter Date Encounter Type Care Provider Facility Start: 01-02-2025 End: 01-02-2025 ambulatory Bello Hilton II Work Phone: [facility] Work Phone: Start: 01-02-2025 End: 01-02-2025 Patient encounter procedure Lilliam Dexter ECONOMIC GEOGRAPHER -[facility] Work Phone: Start: 12-19-2024 End: 12-19-2024 ambulatory Bello Hilton II Work Phone: [facility] Work Phone: Start: 12-19-2024 End: 12-19-2024 Patient encounter procedure Maricel Shultz -[facility] Work Phone: Start: 12-13-2024 End: 12-13-2024 ambulatory Bello Hilton II Work Phone: [facility] Work Phone: Start: 12-13-2024 End: 12-13-2024 Patient encounter procedure Caryl Meléndez MD -[facility] Work Phone: Start: 11-07-2024 End: 11-07-2024 ambulatory Bello Hilton II Work Phone: [facility] Work Phone: Start: 11-07-2024 End: 11-07-2024 Patient encounter procedure Lilliam Toro Guerita [facility] Work Phone: Start: 10-09-2024 End: 10-10-2024 Telephone encounter Belol Hilton MD Work Phone: [facility] Comment on above: Med Refill Start: 10-09-2024 ambulatory Bello Hilton Facility:[facility] Start: 10-09-2024 Registered Recurring Sujatha Wasserman MD -[facility] Start: 10-02-2024 End: 10-02-2024 Clinisync Result Encounter Generic External Data Provider [facility] Department Unsolicited Start: 10-02-2024 End: 10-02-2024 Clinisync Result Encounter Generic External Data Provider [facility] External Department Unsolicited Start: 09-19-2024 End: 09-19-2024 Patient encounter procedure Lilliam Toro Guerita [facility] -[facility] Work Phone: Start: 09-18-2024 End: 09-18-2024 Office outpatient visit 25 minutes Cristina Hubbard HOSPICE VOLUNTEER Work Phone: [facility] Comment on above: BiPAP (biphasic posi tive airway pressure) dependence (Primary Dx) Start: 09-18-2024 End: 09-18-2024 ambulatory CRISTINA HUBBARD Not Available Start: 09-03-2024 End: 09-03-2024 Bamboo flowsheet Zulma SINGH Work Phone: [facility] Start: 09-03-2024 End: 09-03-2024 Bamboo flowsheet Zulma Moe PA Work Phone: [facility] Start: 09-03-2024 End: 09-03-2024 Office outpatient visit 15 minutes Zulma SINGH Work Phone: [facility] Comment on above: Right ear impacted c erumen (Primary Dx); Dizziness; Other infective acute otitis externa of right ear Start: 09-03-2024 End: 09-03-2024 ambulatory ZULMA MOE Not Available Start: 08-22-2024 End: 08-22-2024 Subsequent hospital visit by physician Ricardo [id number] [facility] Comment on above: Encounter for screen ing for cardiovascular disorders; Mixed hyperlipidemia; Type 2 diabetes mellitus without complications; Cardiomegaly; Other ill-defined heart diseases Start: 08-22-2024 End: 08-22-2024 ambulatory CRISTINA HUBBARD [facility] Start: 07-19-2024 End: 07-19-2024 Office outpatient visit 25 minutes Dominic Saldana MD Work Phone: [facility] Comment on above: Hypothyroidism, unsp ecified type (Primary Dx); Class 3 severe obesity with serious comorbidity and body mass index (BMI) of 40.0 to 44.9 in adult, unspecified obesity type; Adrenal nodule; Type 2 diabetes mellitus without complication, without long-term current use of insulin (Multi) Start: 07-19-2024 End: 07-19-2024 [facility] Start: 07-04-2024 End: 07-04-2024 ambulatory Bello Hilton II Work Phone: [facility] Work Phone: Start: 07-04-2024 End: 07-04-2024 Patient encounter procedure Bello Hilton II Work Phone: [facility] Work Phone: Start: 07-03-2024 Registered Recurring Bello Mendes rry II Work Phone: [facility] Credible Start: 05-31-2024 End: 05-31-2024 Clinisync Result Encounter Bello Hilton MD Work Phone: [facility] Unsolicited Start: 05-31-2024 End: 05-31-2024 Clinisync Result Encounter Bello Hilton MD Work Phone: [facility] External Department Unsolicited Start: 04-18-2024 End: [...] Unsolicited Start: 04-10-2024 End: 04-10-2024 ambulatory BELLO HILTON [facility] Start: 04-10-2024 End: 04-10-2024 ambulatory [facility] Ambulatory Start: 04-10-2024 End: 04-10-2024 Office outpatient new 60 minutes Dominic Saldana MD Work Phone: [facility] Comment on above: Adrenal nodule (Prim stefano Dx); Hypothyroidism, unspecified type; Type 2 diabetes mellitus without complication, without long-term current use of insulin (Multi) Start: 03-05-2024 End: 03-06-2024 Telephone encounter Bello Hilton MD Work Phone: [facility] Start: 02-21-2024 End: 02-21-2024 ambulatory [facility] Ambulatory Start: 02-21-2024 End: 02-21-2024 Office outpatient visit 15 minutes Ronnie Murphy MD Work Phone: [facility] Comment on above: Tracheal stenosis (P rimary Dx); Gastroesophageal reflux disease without esophagitis Start: 02-14-2024 End: 02-14-2024 Bamboo flowsheet Cristina Hubbard HOSPICE VOLUNTEER Work Phone: [facility] Start: 02-14-2024 End: 02-14-2024 Bamboo flowsheet Cristina Hubbard HOSPICE VOLUNTEER Work Phone: [facility] Start: 02-14-2024 End: 02-14-2024 Assay of hemosiderin, quant Cristina Hubbard HOSPICE VOLUNTEER Work Phone: [facility] Start: 02-14-2024 End: 02-14-2024 Patient encounter procedure Cristina Hubbard HOSPICE VOLUNTEER Work Phone: [facility] Comment on [...] (CMS/HCC) Start: 02-14-2024 End: 02-14-2024 ambulatory CRISTINA HUBBARD Not Available Start: 12-20-2023 End: 12-20-2023 ambulatory II Bello Hilton Work Phone: [facility] Work Phone: Start: 12-20-2023 End: 12-20-2023 Patient encounter procedure II Bello Hilton Work Phone: [facility] Work Phone: Start: 10-25-2023 Registered Recurring II Bello Hilton Work Phone: [facility] Start: 10-19-2023 End: 10-19-2023 Departed Referred II Bello Hilton Work Phone: [facility] Work Phone: Start: 10-19-2023 End: 10-19-2023 ambulatory II Bello Hilton Work Phone: [facility] Work Phone: Start: 10-19-2023 End: 10-19-2023 Patient encounter procedure II Bello Hilton Work Phone: [facility] Work Phone: Start: 10-06-2023 End: 10-06-2023 ambulatory DENISE SÁNCHEZ Not Available Start: 10-05-2023 End: 10-05-2023 ambulatory II Bello Hilton Work Phone: [facility] Work Phone: Start: 10-05-2023 End: 10-05-2023 Patient encounter procedure II Bello Hilton Work Phone: [facility] Work Phone: Start: 08-09-2023 End: 08-09-2023 ambulatory II Bello Hilton Work Phone: [facility] Work Phone: Start: 08-09-2023 End: 08-09-2023 Patient encounter procedure II Bello Hilton Work Phone: [facility] Work Phone: Start: 08-06-2023 End: 08-06-2023 Emergency department patient visit II Bello Hilton Work Phone: [facility]-Emergency Room Work Phone: Start: 07-05-2023 End: 07-05-2023 Patient encounter procedure II Bello Hilton Work Phone: [facility] Work Phone: Start: 06-14-2023 Registered Recurring II Bello Hilton Work Phone: [facility] Credible Start: 06-07-2023 [facility] Weight Management f/u Lilliam Dexter [facility] Start: 06-07-2023 End: 06-07-2023 ambulatory Lilliam Dexter Other [employer] Other Start: 06-07-2023 Registered Recurring II Bello Hilton Work Phone: [facility] Work Phone: Start: 06-03-2023 End: 06-04-2023 ambulatory Emiliano Lagos Facility:[facility] Start: 06-03-2023 End: 06-03-2023 Patient encounter procedure Emiliano Lagos [facility] [place] Start: 05-25-2023 End: 05-25-2023 ambulatory Lilliam Dexter Other [employer] Other Start: 05-25-2023 Telephone encounter Lilliam Alexandreclark [facility] Start: 05-17-2023 ambulatory Emiliano Lagos Facility:[facility] Start: 05-17-2023 Non-patient / Non-visit II Jac Hilton Work Phone: [facility] [facility] Work Phone: Start: 05-16-2023 Telephone encounter Lilliam Alexandreclark [facility] Start: 05-16-2023 End: 05-16-2023 ambulatory II Bello Hilton Work Phone: [employer] Other Start: 05-16-2023 End: 05-16-2023 Departed Referred II Bello Yobani Work Phone: [facility] Start: 05-16-2023 Non-patient / Non-visit II Jac whatley Hilton Work Phone: [facility] Work Phone: Start: 05-15-2023 End: 05-17-2023 ambulatory SHAIKH ADALID Facility:CD:[id number] Start: 04-13-2023 End: 04-13-2023 ambulatory Lilliam Guerita Other [employer] Other Start: 04-13-2023 Telephone encounter Lilliam [facility] Start: 03-18-2023 End: 03-18-2023 ambulatory Lilliam Guerita Other [employer] Other Start: 03-18-2023 Telephone encounter L[facility]am [facility] Start: 03-15-2023 Registered Recurring II Bello Hilton Work Phone: [facility] Work Phone: Start: 02-22-2023 End: 02-22-2023 Office outpatient visit 15 minutes Ronnie Murphy MD Work Phone: [facility] Comment on above: Tracheal stenosis (P rimary Dx) Start: 02-15-2023 ([facility] RD FU) [facility] F/ U Registerd Electrical Technician Instructor Nikki Manning [facility] Start: 02-15-2023 End: 02-15-2023 ambulatory Nikki Manning Other [employer] Other Start: 02-01-2023 ([facility] Weight Management f/u Lilliam Dexter [facility] Start: 02-01-2023 End: 02-01-2023 ambulatory Lilliam Scally Other [employer] Other Start: 01-27-2023 Rx Renewal Luana Cox ECONOMIC GEOGRAPHER-TRANSIT COACH OPERATOR Work Phone: QG-Fusjnpfggibjbj-Pitm n [place] [address] Work Phone: Start: 01-05-2023 End: 01-05-2023 ambulatory Lilliam Scally Other [employer] Other Start: 01-05-2023 Telephone encounter Lilliam Alexandreclark [facility] Start: 12-22-2022 ([facility] WMNI) WMN Init ial Provider Nikki Manning [facility] Start: 12-22-2022 End: 12-22-2022 ambulatory Nikki Fitt Other [employer] Other Start: 10-19-2022 ([facility] Weight Management f/u Lilliam Dexter [facility] Start: 10-19-2022 End: 10-19-2022 ambulatory Nikki Fitt Other [employer] Other Start: 10-19-2022 IBT FOR OBESITY GROU P 2-10 30M Nikki Manning [facility] Start: 09-02-2022 End: 09-03-2022 ambulatory LILLIAM SCALLY Facility:[facility] Start: 08-05-2022 End: 08-05-2022 ambulatory Lilliam Scally Other [employer] Other Start: 08-05-2022 Telephone encounter Lilliam Alexandreclark [facility] Start: 07-27-2022 ([facility]) Weight Management f/u Lilliamcarlos Dexter [facility] Start: 07-27-2022 End: 07-27-2022 ambulatory Lilliam Scally Other [facility] Other Start: 06-29-2022 End: 06-29-[address] DOCTOR SHANKS Facility:[facility] Start: 06-15-2022 End: 06-15-2022 ambulatory Nikki Manning Other [place] Other Start: 06-15-2022 IBT FOR OBESITY GROU P 2-10 30M Nikkiblanca Manning [facility] Start: 06-01-2022 Office consultation new/estab patient 60 min Gopi Solis MD Work Phone: [facility] DO Work Phone: Start: 06-01-2022 Office outpatient ne w 45 minutes Gopi Solis MD Work Phone: [facility] [address] DO Work Phone: Start: 06-01-2022 (FCCCWMNF/U) Weight Management f/u Lilliam Dexter [facility] Start: 06-01-2022 End: 06-01-2022 ambulatory Bello Hilton II Facility: Start: 05-17-2022 End: 05-18-[address] DOCTOR SHANKS Facility:[facility] Start: 05-11-2022 End: 05-12-[address] CAROL ASCENCIO Facility:[facility] Start: 04-28-2022 Rx Change Luana Cox ECONOMIC GEOGRAPHER-TRANSIT COACH OPERATOR Work Phone: XH-Kzpsjxekurvdki-Zhko n [place] [address] Work Phone: Start: 02-09-2022 Office outpatient vi sit 15 minutes Ronnie Murphy MD Work Phone: UV-Wgmynjstlqkcni-Zwcn [place] Work Phone: Start: 02-09-[address] RONNIE MURPHY Fa cility:[id number] Start: 05-15-2021 End: 08-13-2021 Patient encounter procedure BELLO HILTON [facility] Start: 04-16-2021 Rx Renewal Ronnie Murphy MD Work Phone: GZ-Crklcsxdgzkbei-Ckrk n [place] [address] Work Phone: Start: 03-31-2021 Office outpatient vi sit 15 minutes Ronnie Murphy MD Work Phone: AJ-Nbroviqxwajeyq-Dyet [place] Work Phone: Start: 03-19-2021 [facility], Provider: Ronnie Murphy, Status: Pen, Time: 9:00 AM Ronnie Murphy MD Work Phone: IQ-Helzfkluyecszy-Zdot man Work Phone: Start: 03-18-2021 Chart Update Ronnie Murphy MD Work Phone: PS-Ibftqceypdyrmq-Cfet man Work Phone: Start: 03-04-2021 Chart Update Ronnie Murphy MD Work Phone: VF-Zacxgfzzbiesnn-Fdfp [place] Work Phone: Start: 02-11-2021 Telephone encounter Luana Espinosa ndt ECONOMIC GEOGRAPHER-TRANSIT COACH OPERATOR Work Phone: EQ-Ygismqdknufegf-Gpdi rban Work Phone: Start: 02-10-2021 Office outpatient vi sit 15 minutes Ronnie Murphy MD Work Phone: YH-Seyaygfgsuoatz-Kjzx [place] Work Phone: Start: 02-12-2020 Patient encounter procedure Ronnie Murphy HS-Kkcpcjhmsiwdil-Gwis rban Work Phone: Start: 08-22-2018 Patient encounter procedure Ronnie Murphy BN-Pyaqhgbnuicbks-Jehs n [place] [address] Work Phone: Start: 02-28-2018 Patient encounter procedure Ronnie Murphy KR-Hmjusoekqywoco-Bucv n [place] [address] Work Phone: Start: 08-23-2017 Patient encounter procedure Ronnie Murphy JD-Ysxftnwtanomao-Fdsm n [place] [address] Work Phone: Start: 02-22-2017 Patient encounter procedure Ronnie Murphy DG-Ohnosifraaedzf-Tnpn n [place] [address] Work Phone: Procedures Date Procedure Procedure Detail Performing Clinician Start: 10-02-2024 ALL THYROID STIM HORMONE Generic External Data Provider Start: 09-03-2024 Removal impacted cer umen instrumentation unilat Zulma SINGH Work Phone: Start: 05-31-2024 MM TOMOSYNTHESIS SCR EENING BI Bello Hilton MD Work Phone: Start: 05-31-2024 Mammography Bello quezada MD Work Phone: Start: 04-18-2024 TBH CREATININE Generic External Data [...] Plain X-ray of left shoulder II Bello iHlton Work Phone: Start: 05-16-2023 Laparoscopic cholecystectomy Emiliano Lagos Start: 05-11-2023 Mammography Cristina fox NP Work Phone: Start: 05-11-2022 Mammography Ronnie mcdowell MD Work Phone: Start: 2019 Total colonoscopy Brigitte Daugherty MD Work Phone: Start: 07-14-2018 Colonoscopy Cristina fox HOSPICE VOLUNTEER Work Phone: Start: 2001 Reduction mammoplasty J ohn Yolis Start: 1962 History of hernia repair Emiliano Lagos Hernia repair Gopi ovalle MD Work Phone: Operation on breast Gopi Solis MD Work Phone: Plan of Treatment Date Care Activity Detail Author Start: 07-14-2028 Screening for malign ant neoplasm of colon [facility] Start: 07-16-2025 End: 07-16-2025 Patient encounter procedure 07/16/2025 10:00 AM EDT Office Visit [facility] [address] [place] [address] [place] [address] Department of [place] [address] [facility] Start: 05-31-2025 Screening for malign ant neoplasm of breast Mammogram [facility] Start: 04-10-2025 Thyroid stimulating hormone measurement TSH Level [facility] Start: 02-26-2025 End: 02-26-2025 Patient encounter procedure 02/26/2025 1:15 PM EDT Office Visit [facility] [address] [place] [id number] [place] [address] [place] [address] [facility] Start: 02-14-2025 Lipid panel Lipid Panel [facility] Start: 02-14-2025 Thyroid stimulating hormone measurement TSH Level [facility] Start: 02-14-2025 Urine screening for protein Diabetes: Urine Protein Screening [facility] Start: 02-13-2025 Medicare Annual Wellness (AWV) Medicare Annual Wellness (AWV) [facility] Start: 02-13-2025 Pneumococcal Vaccine : 65+ Years (1 of 2 - PCV) Pneumococcal Vaccine: 65+ Years (1 of 2 - PCV) [facility] Comment on above: Postponed from 05/02 (Patient Refused) Postponed from 05/02 (Patient Refused) Start: 01-25-2025 Glaucoma screening Diabetes: R etinopathy Screening [facility] Start: 12-31-2024 Influenza vaccination Influenz a Vaccine (Season Ended) [facility] Start: 12-13-2024 [facility] Start: 11-08-2024 Patient referral [facility] Work Phone: Start: 10-18-2024 Urine screening for protein Diabetes: Urine Protein Screening [facility] Start: 09-10-2024 End: 07-19-2025 IGF-I IGF-I Lab Routine Hypothyroidism, unspecified type Class 3 severe obesity with serious comorbidity and body mass index (BMI) of 40.0 to 44.9 in adult, unspecified obesity type Expected: 09/10/2024 (Approximate), Expires: 07/19/2025 [facility] Work Phone: Comment on above: Expected: 09/10/2024 (Approximate), Expires: 07/19/2025 Start: 09-10-2024 End: 07-19-2025 Thyrotropin [Units/volume] in Serum or Plasma Thyroid Stimulating Hormone Lab Routine Hypothyroidism, unspecified type Class 3 severe obesity with serious comorbidity and body mass index (BMI) of 40.0 to 44.9 in adult, unspecified obesity type Expected: 09/10/2024 (Approximate), Expires: 07/19/2025 [facility] Service Area Work Phone: Comment on above: Expected: 09/10/2024 (Approximate), Expires: 07/19/2025 Start: 09-10-2024 End: 07-19-2025 Thyroxine (T4) free [Mass/volume] in Serum or Plasma Thyroxine, Free Lab Routine Hypothyroidism, unspecified type Class 3 severe obesity with serious comorbidity and body mass index (BMI) of 40.0 to 44.9 in adult, unspecified obesity type Expected: 09/10/2024 (Approximate), Expires: 07/19/2025 [facility] Work Phone: Comment on above: Expected: 09/10/2024 (Approximate), Expires: 07/19/2025 Start: 09-03-2024 End: 09-03-2024 Patient encounter procedure 09/03/2024 1:30 PM EDT Office Visit [facility] [address] [place] [address] Zulma Moe PA [address] [place] [address] Arrived [facility] Comment on above: Arrived Start: 08-22-2024 End: 08-22-2024 Patient encounter procedure 08/22/2024 4:30 PM EDT Appointment [facility] [address] [place] [phone] [facility] Start: 08-07-2024 End: 08-07-2024 Patient encounter procedure 08/07/2024 10:20 AM EDT Office Visit [facility] [address] [place] [phone] [place] [address] [address] Department of [place] [address] [facility] Start: 07-09-2024 Hemoglobin A1c measurement Diabetes: Hemoglobin A1C [facility] Start: 05-16-2024 Hemoglobin A1c measurement Diabetes: Hemoglobin A1C [facility] Start: 05-11-2024 Screening for malign ant neoplasm of breast Mammogram [facility] Start: 04-10-2024 End: 04-10-2025 CT Adrenal gland WO and W contrast IV CT adrenals w and wo IV contrast Imaging Routine Adrenal nodule Expected: 04/10/2024, Expires: 04/10/2025 [facility] Service Area Work Phone: Comment on above: Expected: 04/10/2024 , Expires: 04/10/2025 Start: 04-10-2024 Influenza vaccination Influenza Vacc ine (#1) [facility] Comment on above: Postponed from 12/31 (Patient Refused) Start: 04-10-2024 End: 04-10-2024 Patient encounter procedure 04/10/2024 8:20 AM EST Office Visit [facility] [address] [place] [address] [place] [address] [address] Department of [place] [address] [facility] Start: 02-21-2024 End: 02-21-2024 Patient encounter procedure 02/21/2024 1:15 PM EDT Office Visit [facility] [address] [place] [phone] [place] [address] [facility] [place] [address] [facility] Start: 02-14-2024 End: 02-13-2025 CBC panel - Blood by Automated count CBC Lab Routine Medicare annual wellness visit, subsequent Gastroesophageal reflux disease without esophagitis Lower extremity edema Type 2 diabetes mellitus without complication, without long-term current use of insulin ([facility]/HCC) Expected: 02/14/2024 (Approximate), Expires: 02/13/2025 [facility] Comment on above: Expected: 02/14/2024 (Approximate), Expires: 02/13/2025 Start: 02-14-2024 End: 02-13-2025 Comprehensive metabolic 2000 panel - Serum or Plasma Comprehensive metabolic panel Lab Routine Medicare annual wellness visit, subsequent Type 2 diabetes mellitus without complication, without long-term current use of insulin (CMS/HCC) Expected: 02/14/2024 (Approximate), Expires: 02/13/2025 [facility] Comment on above: Expected: 02/14/2024 (Approximate), Expires: 02/13/2025 Start: 02-14-2024 End: 02-13-2025 DXA Skeletal system Views for bone density DEXA bone density Imaging Routine Medicare annual wellness visit, subsequent Estrogen deficiency Expected: 02/14/2024 (Approximate), Expires: 02/13/2025 [facility] Work Phone: Comment on above: Expected: 02/14/2024 (Approximate), Expires: 02/13/2025 Start: 02-14-2024 End: 02-13-2025 Lipid 1996 panel - Serum or Plasma Lipid panel Lab Routine Medicare annual wellness visit, subsequent Type 2 diabetes mellitus without complication, without long-term current use of insulin (CMS/HCC) Mixed hyperlipidemia (CMS/HCC) Expected: 02/14/2024 (Approximate), Expires: 02/13/2025 [facility] Comment on above: Expected: 02/14/2024 (Approximate), Expires: 02/13/2025 Start: 02-14-2024 End: 02-13-2025 Microalbumin/Creatinine panel in random Urine Microalbumin / creatinine, urine ratio Lab Routine Medicare annual wellness visit, subsequent Type 2 diabetes mellitus without complication, without long-term current use of insulin (CMS/HCC) Expected: 02/14/2024 (Approximate), Expires: 02/13/2025 [facility] Comment on above: Expected: 02/14/2024 (Approximate), Expires: 02/13/2025 Start: 02-14-2024 End: 02-13-2025 Thyrotropin [Units/volume] in Serum or Plasma TSH Lab Routine Medicare annual wellness visit, subsequent Acquired hypothyroidism (CMS/HCC) Expected: 02/14/2024 (Approximate), Expires: 02/13/2025 [facility] Comment on above: Expected: 02/14/2024 (Approximate), Expires: 02/13/2025 Start: 02-14-2024 End: 02-14-2024 Patient encounter procedure 02/14/2024 9:00 AM EDT Office Visit [facility] [address] [place] [id number] Cristina Hubbard [facility] [address] [place] [address] Arrived [facility] Comment on above: Arrived Start: 01-01-2024 COVID-19 Vaccine () COVID-19 Vaccine () [facility] Start: 01-01-2024 COVID-19 Vaccine () COVID-19 Vaccine () [facility] Start: 01-01-2024 Influenza vaccination Influenza Vacc ine (#1) [facility] Start: 12-15-2023 Medicare Annual Wellness (AWV) Medicare Annual Wellness (AWV) [facility] Start: 09-20-2023 Hemoglobin A1c measurement Diabetes: Hemoglobin A1C [facility] Start: 08-06-2023 Duplex scan veins of upper limb US venous duplex UE LT [facility] Start: 08-06-2023 US Upper extremity v ein - left [facility] Start: 06-14-2023 ambulatory Ambulatory Facility:[facility] Start: 05-11-2023 Screening for malign ant neoplasm of breast Mammogram [facility] Start: 02-22-2023 FUV, Provider: Ronnie Murphy, Status: Pen, Time: 2:45 PM FUV, Provider: Ronnie Murphy, Status: Pen, Time: 2:45 PM FW-Ngaddxrizqznoq-N [place] Work Phone: Start: 12-31-2022 Influenza vaccination Influenza Vacc ine (#1) [facility] Start: 08-10-2022 FUV, Provider: Gopi Solis, Status: Pen, Time: 12:50 PM FUV, Provider: Gopi Solis, Status: Pen, Time: 12:50 PM [facility] 250 DO Work Phone: Start: 07-13-2022 REST ONLY, Provider: CHASITY HHVI NUCLEAR 01,[id number], Status: Pen, Time: 12:30 PM REST ONLY, Provider: CHASITY HHVI NUCLEAR 01,[id number], Status: Pen, Time: 12:30 PM [facility] Work Phone: Start: 07-12-2022 STRESSNUC2, Provider : CHASITY HHVI NUCLEAR 01,[id number], Status: Pen, Time: 12:30 PM STRESSNUC2, Provider: CHASITY HHVI NUCLEAR 01,[id number], Status: Pen, Time: 12:30 PM [facility] Work Phone: Start: 07-06-2022 COVID-19 Vaccine (4 - Pfizer series) COVID-19 Vaccine (4 - Pfizer series) [facility] Start: 02-09-2022 FUV, Provider: Ronnie Murphy, Status: Pen, Time: 2:50 PM FUV, Provider: Ronnie Murphy, Status: Pen, Time: 2:50 PM ZS-Lkjndmijgrqrfu-U [place] Work Phone: Start: 03-31-2021 POV, Provider: Ronnie Murphy, Status: Pen, Time: 3:00 PM POV, Provider: Ronnie Murphy, Status: Pen, Time: 3:00 PM PO-Aygbsdwyodumlo-N eidman Work Phone: Start: 03-19-2021 SURGCMC, Provider: Ronnie Murphy, Status: Pen, Time: 9:00 AM SURGCMC, Provider: Ronnie Murphy, Status: Pen, Time: 9:00 AM MW-Xouwtovrximahe-G [place] Work Phone: Start: 03-03-2021 FUV, Provider: Ronnie Murphy, Status: Pen, Time: 1:00 PM FUV, Provider: Ronnie Murphy, Status: Pen, Time: 1:00 PM WB-Rfaoyaidxatpvh-F mook Work Phone: Start: 2017 Hepatitis B Vaccines (1 of 3 - Risk 3-dose series) Hepatitis B Vaccines (1 of 3 - Risk 3-dose series) [facility] Start: 2017 RSV High Risk: (Elde rly (60+) or Population) (1 - Risk 60-74 years 1-dose series) RSV High Risk: (Elderly (60+) or Population) (1 - Risk 60-74 years 1-dose series) [facility] Start: 2007 Zoster Vaccines (1 o f 2) Zoster Vaccines (1 of 2) [facility] Start: 1979 DTaP/Tdap/Td Vaccine s (1 - Tdap) DTaP/Tdap/Td Vaccines (1 - Tdap) [facility] Start: 1978 Screening for malign ant neoplasm of cervix [facility] Start: 1976 Hepatitis A Vaccines (1 of 2 - Risk 2-dose series) Hepatitis A Vaccines (1 of 2 - Risk 2-dose series) [facility] Start: 1976 Pneumococcal vaccination Pneumococcal Vaccine (1 of 2 - PCV) [facility] Start: 1976 Urine screening for protein Diabetes: Urine Protein Screening [facility] Start: 1975 Hepatitis C screening Hepatitis C Sc reening [facility] Start: 1967 Diabetic foot examination Diabetes: Foot Exam [facility] Start: 1967 Glaucoma screening Diabetes: R etinopathy Screening [facility] Start: 1963 Pneumococcal Vaccine : 65+ Years (1 - PCV) Pneumococcal Vaccine: 65+ Years (1 - PCV) [facility] Start: 1963 Pneumococcal Vaccine : 65+ Years (1 of 2 - PCV) Pneumococcal Vaccine: 65+ Years (1 of 2 - PCV) [facility] Start: 1958 MMR Vaccines (1 of 1 - Standard series) MMR Vaccines (1 of 1 - Standard series) [facility] Start: 1957 Hemoglobin A1c measurement Diabetes: Hemoglobin A1C [facility] Start: 1957 Lipid panel Lipid Panel [facility] Start: 1957 Medicare Annual Wellness Visit Medicare Annual Wellness Visit (AWV) [facility] Start: 1957 Screening for malign ant neoplasm of colon [facility] Start: 1957 Screening for osteoporosis Bone Density Scan [facility] Start: 1957 Thyroid stimulating hormone measurement TSH Level [facility] Start: 1957 Yearly Adult Physical Yearly Adult P hysical [facility] Comprehensive metabo lic 2000 panel - Serum or Plasma [facility] CT for calcium scori ng WO contrast and CTA W contrast IV Heart and coronary arteries CT heart calcium scoring wo IV contrast Imaging Routine Decreased right ventricular systolic function LVH (left ventricular hypertrophy) Type 2 diabetes mellitus without complication, without long-term current use of insulin (CMS/HCC) Mixed hyperlipidemia (CMS/HCC) Screening for heart disease Ordered: 02/14/2024 [facility] Comment on above: Ordered: 02/14/2024 End: 08-22-2024 CT for calcium scoring WO contrast and CTA W contrast IV Heart and coronary arteries [facility] Service Area Work Phone: Comment on above: Once for 1 Occurrenc es starting 08/22/2024 until 08/22/2024 Patient Education Shoulder Pain (DC) [facility] Work Phone: Patient referral [facility] Work Phone: US Heart Transthoracic [facility] Immunizations Immunization Date Immunization Notes Care Provider Fa cility 05-11-2022 Moderna SARS-CoV-2 Vaccination Cristina Hubbard NP Work Phone: [facility] Yi Fang Education 05-11-2022 Pfizer COVID-19 Vac Bivalent 30 MCG/0.3ML Intramuscular Suspension Gopi Solis MD Work Phone: [facility] 250 DO Work Phone: 04-02-2021 Pfizer-BioNTech COVID-19 Vacc 30 MCG/0.3ML Intramuscular Suspension Gopi Solis MD Work Phone: [facility] [place] 09-15-2020 Pfizer-BioNTech COVID-19 Vacc 30 MCG/0.3ML Intramuscular Suspension Gopi Solis MD Work Phone: [facility] [place] 08-25-2020 Pfizer-BioNTech COVID-19 Vacc 30 MCG/0.3ML Intramuscular Suspension Gopi Solis MD Work Phone: [facility] [place] 03-01-2015 tetanus toxoid, adsorbed Cristina Hubbard NP Work Phone: [facility] NEGATED: Highlighted row has not occurred!06-03-2023 influenza virus vaccine, unspecified formulation Emiliano Lagos [facility] [place] Payers Date Payer Category Payer Medicare [id number] 2023 Medicare [id number] 2023 Unknown [id number] 2023 Miscellaneous or Other [facility] [place] [address] [id number]. [id number] 2023 Unknown [id number] 2022 Self-pay 2022 Private Health Insurance [id number] 2021 Private Health Insurance COV ID 1959 Private Health Insurance [id number] 1957 Unknown [id number] 2.16.840.1.076060.3.579. 2.356 1957 Unknown [id number] 2.16.840.1.119212.3.579. 2.356 1957 Unknown [id number] 2.16.840.1.808191.3.579. 2.593 1957 Unknown [id number] 2.16.840.1.033450.3.579. 2.593 1957 Unknown [id number] 2.16.840.1.250810.3.579. 2.593 1957 Unknown [id number] 2.16.840.1.770504.3.579. 2.593 1957 Unknown [id number] 2.16.840.1.430972.3.579. 2.727 1957 Unknown [id number] 2.16.840.1.169827.3.579. 2.727 1957 Unknown [id number] 2.16.840.1.036987.3.579. 2.727 1957 Unknown [id number] 2.16.840.1.604721.3.579. 2.727 1957 Unknown [id number] 2.16.840.1.626938.3.579. 2.727 1957 Unknown [id number] 2.16.840.1.867852.3.579. 2.1244 1957 Unknown [id number] 2.16.840.1.495762.3.579. 2.1244 1957 Unknown [id number] 2.16.840.1.773272.3.579. 2.1244 1957 Unknown [id number] 2.16.840.1.193571.3.579. 2.1245 1957 Unknown [id number] 2.16.840.1.338964.3.579. 2.1245 1957 Unknown [id number] 2.16.840.1.138991.3.579. 2.1259 1957 Unknown [id number] 2.16.840.1.849968.3.579. 2.1259 1957 Unknown [id number] 2.16.840.1.805623.3.579. 2.1259 1957 Unknown [id number] 2.16.840.1.917439.3.579. 2.1259 Medicare Medicare- Part A Only [id number] Unknown Unknown [id number] Unknown [id number] 2.160.1.512670.19 Unknown HCAP/HFA/FAP Active [id number] Unknown [id number] 2.160.1.372842.3.579. 2.531 Unknown [id number] 2.0.1.094026.3.579. 2.531 Social History Date Type Detail Facility Start: 02-22-2023 End: 09-03-2024 Never a smoker Never a smoker IC-Wnoogwzfwvmjio-Wn s tldru Work Phone: Comment on above: pop 3 daily; Start: 02-22-2023 End: 09-03-2024 Sex Assigned At Female [facility] Start: 02-22-2023 End: 09-19-2024 Tobacco smoking status NHIS Never smoked tobacco [facility] Start: 09-22-2022 End: 02-22-2023 Tobacco use and exposure Smokeless tobacco non-user [facility] Work Phone: Start: 1955 Sex Assigned At Not on file U [facility] Work Phone: Start: 02-12-2023 End: 08-22-2024 Exposure to SARS-CoV-2 (event) Not sure [facility] Start: 1955 Sex Assigned At Female F [facility] Tobacco smoking status Never [facility] [place] Start: 10-06-2023 End: 09-18-2024 Alcoholic beverage intake Lifetime non-drinker (finding) [facility] Start: 10-04-2022 Alcohol Comment Caffeine intak e: none [facility] Start: 07-04-2024 Sex Female (finding) [facility] NEGATED: Highlighted row - - CV-Wifxypjawejspj-Zy m in [place] [address] Work Phone: Medical Equipment Procedure Code Equipment Code Equipment Origin al Text Equipment Identifier Dates Pen [facility] 32G X 4 MM Start: 02-01-2023 Laser [employer] Hwg 500 Fiber Case [id number] Start: 03-19-2021 Comment on above: Description: Convert ed from [facility] Acute. Please see archived information for full log information. Additional Information:per bill only jdr 03/28/2021 1456pm Functional Status Date Assessment Result Facility 09-03-2024 Patient Health Questionnaire 2 item (PHQ-2) [Reported] [facility] 06-03-2023 Functional Status N/A [facility] [place] NEGATED: Highlighted row Functional performance Functional status health issues are not documented Disease CF-Sbywdqwoptgtmd-Eq min [place] [address] Work Phone: Mental Status Date Assessment Result Facility NEGATED: Highlighted row Cognitive function [Interpretation] Cognitive status health issues are not documented Disease XN-Jwhbqzhhkyqdts-Q dmin [place] [address] Work Phone: Clinical Notes 03-03-2021 to 11-07-2024 Note Date & Type Note Facility 11-07-2024 Evaluation note Diagnosis Onset Date Resolution Abnormal weight gain acute November 07, 2024 1:36pm Acid reflux acute November 07 1:36pm Adrenal abnormality acute November 07, 2024 1:36pm Anxiety and depression acute Ju ly 2024 1:36pm Bipolar disorder acute October 1:36pm BMI 45.0-49.9, adult acute November 07, 2024 1:36pm Diabetes type 2, uncontrolled acute November 07, 2024 1:36pm Fatigue acute November 07, 2024 1:36pm 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, 2024 1:36pm Hyperlipidemia acute November 07, 2024 1:36pm Hypothyroid acute November 07 1:36pm Obesity acute November 07, 2024 1:36pm RYANNE (obstructive sleep apnea) acute November 07, 2024 1:36pm Vitamin D deficiency acute November 07, 2024 1:36pm Anxiety and depression acute Au 2024 9:13am BMI 45.0-49.9, adult acute 2024 9:13am Dependent edema acute December 132024 9:13am Diabetes type 2, uncontrolled acute December 13 9:13am GOETZ (dyspnea on exertion) acute December 13 9:13am Exercise intolerance acute 2024 9:13am Hyperlipidemia acute November 9:13am Hypothyroid acute December 13, 2024 9:13am RYANNE (obstructive sleep apnea) acute December 13 9:13am [facility] Work Phone: 1(786) 666-461207-09-2025 Evaluation note* Diagnosis Onset Date Resolution Status Admit Date Abnormal weight gain acute November 07, 2024 1:36pm Acid reflux acute November 07 1:36pm Adrenal abnormality acute November 07, 2024 1:36pm Anxiety and depression acute Ju ly 2024 1:36pm Bipolar disorder acute October 1:36pm BMI 45.0-49.9, adult acute November 07, 2024 1:36pm Diabetes type 2, uncontrolled acute November 07, 2024 1:36pm Fatigue acute November 07, 2024 1:36pm 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, 2024 1:36pm Hyperlipidemia acute November 07, 2024 1:36pm Hypothyroid acute November 07 1:36pm Obesity acute November 07, 2024 1:36pm RYANNE (obstructive sleep apnea) acute November 07, 2024 1:36pm Vitamin D deficiency acute November 07, 2024 1:36pm Anxiety and depression acute Au 2024 9:13am BMI 45.0-49.9, adult acute 2024 9:13am Dependent edema acute December 132024 9:13am Diabetes type 2, uncontrolled acute December 13, 2024 9:13am GOETZ (dyspnea on exertion) acute December 13, 2024 9:13am Exercise intolerance acute 2024 9:13am Hyperlipidemia acute November 9:13am Hypothyroid acute December 13, 2024 9:13am RYANNE (obstructive sleep apnea) acute December 13, 2024 9:13am Abnormal weight gain acute Dec 1:00pm Acid reflux acute December 1:00pm Adrenal abnormality acute mb2024 1:00pm Anxiety and depression acute Se ptember 2024 1:00pm Bipolar disorder acute Decemb r 2024 1:00pm BMI 45.0-49.9, adult acute Dec 1:00pm Diabetes type 2, uncontrolled acute January 02, 2025 1:00pm Fatigue acute January 02, 2025 1:00pm Fatty pancreas acute January 02, 2025 1:00pm Hyperlipidemia acute January 02, 2025 1:00pm Hypothyroid acute December 1:00pm Obesity acute January 02, 2025 1:00pm RYANNE (obstructive sleep apnea) acute January 02, 2025 1:00pm Vitamin D deficiency acute Dec 1:00pm [facility] Work Phone: 1(644) 319-513006-10-2025 Telephone encounter Note* Telephone Encounter - Christina Mercer MA - 10/09/2024 10:24 AM EDT Faxed order and paperwork [facility] [id number] Miscellaneous Notes* Telephone Encounter - Christina Mercer MA - 10/09/2024 10:24 AM EDT Faxed order and paperwork * Telephone Encounter - Justine Bell - 10/09/2024 9:54 AM EDT Patient is due for a new rx for sleep machine hose/mask to [facility] fax number is [phone] documented in this encounterWashington [facility] [id number] Telephone encounter Note* Telephone Encounter - Justine Bell - 10/09/2024 9:54 AM EDT Patient is due for a new rx for sleep machine hose/mask to [facility] fax number is [phone] [id number] Evaluation note* Diagnosis Onset Date Resolution Status Admit Date Abnormal weight gain acute September 19, 2024 2:00pm Acid reflux acute September 19 2:00pm Adrenal abnormality acute August 312024 2:00pm Anxiety and depression acute 2024 2:00pm Bipolar disorder acute August 2:00pm BMI 45.0-49.9, adult acute September 19, 2024 2:00pm Diabetes type 2, uncontrolled acute September 19, 2024 2:00pm Fatigue acute September 19, 2024 2:00pm Fatty pancreas acute September 19, 2024 2:00pm Hyperlipidemia acute September 19, 2024 2:00pm Hypothyroid acute September 19 2:00pm Obesity acute September 19, 2024 2:00pm RYANNE (obstructive sleep apnea) acute September 19, 2024 2:00pm Vitamin D deficiency acute September 19, 2024 2:00pm Abnormal weight gain acute November 07, 2024 1:36pm Acid reflux acute November 07 1:36pm Adrenal abnormality acute November 07, 2024 1:36pm Anxiety and depression acute Ju ly 2024 1:36pm Bipolar disorder acute October 1:36pm BMI 45.0-49.9, adult acute November 07, 2024 1:36pm Diabetes type 2, uncontrolled acute November 07, 2024 1:36pm Fatigue acute November 07, 2024 1:36pm 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, 2024 1:36pm Hyperlipidemia acute November 07, 2024 1:36pm Hypothyroid acute November 07 1:36pm Obesity acute November 07, 2024 1:36pm RYANNE (obstructive sleep apnea) acute November 07, 2024 1:36pm Vitamin D deficiency acute November 07, 2024 1:36pm [facility] Work Phone: 1([phone]) 500-901705-21-2025 Evaluation note* Diagnosis Onset Date Resolution Status Admit Date Abnormal weight gain acute September 19, 2024 2:00pm Acid reflux acute September 19 2:00pm Adrenal abnormality acute August 312024 2:00pm Anxiety and depression acute Ma 2024 2:00pm Bipolar disorder acute August 2:00pm BMI 45.0-49.9, adult acute September 19, 2024 2:00pm Diabetes type 2, uncontrolled acute September 19, 2024 2:00pm Fatigue acute September 19, 2024 2:00pm Fatty pancreas acute September 19, 2024 2:00pm Hyperlipidemia acute September 19, 2024 2:00pm Hypothyroid acute September 19 2:00pm Obesity acute September 19, 2024 2:00pm RYANNE (obstructive sleep apnea) acute September 19, 2024 2:00pm Vitamin D deficiency acute September 19, 2024 2:00pm Abnormal weight gain acute November 07, 2024 1:36pm Acid reflux acute November 07 1:36pm Adrenal abnormality acute November 07, 2024 1:36pm Anxiety and depression acute Ju ly 2024 1:36pm Bipolar disorder acute October 1:36pm BMI 45.0-49.9, adult acute November 07, 2024 1:36pm Diabetes type 2, uncontrolled acute November 07, 2024 1:36pm Fatigue acute November 07, 2024 1:36pm 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, 2024 1:36pm Hyperlipidemia acute November 07, 2024 1:36pm Hypothyroid acute November 07 1:36pm Obesity acute November 07, 2024 1:36pm RYANNE (obstructive sleep apnea) acute November 07, 2024 1:36pm Vitamin D deficiency acute November 07, 2024 1:36pm Anxiety and depression acute 2024 9:13am BMI 45.0-49.9, adult acute 2024 9:13am Dependent edema acute December 132024 9:13am Diabetes type 2, uncontrolled acute December 13, 2024 9:13am GOETZ (dyspnea on exertion) acute December 13, 2024 9:13am Exercise intolerance acute 2024 9:13am Hyperlipidemia acute November 9:13am Hypothyroid acute December 13, 2024 9:13am RYANNE (obstructive sleep apnea) acute December 13, 2024 9:13am [facility] Work Phone: 1(315) 617-523005-20-2025 History of Present illness Narrative* Cristina Hubbard NP - 09/18/2024 10:30 AM EDT Images from the original note were not included. HPI Sleep Apnea Additional comments: Needing notes for apnea supplies Last edited by Christina Mercer MA on 09/18/2024 7:01 AM. Subjective Patient ID: Bette Villafana is a 69 y.o. female who presents for Sleep Apnea (Needing notes for apnea supplies). Pt is here due to needing notes for her sleep apnea mask and supplies , pt went to [facility] sleep study.Wearing every night. Mask is 6 months old and pt is in need of a new mask. Pt is using a Mirage Activa LT Mask Elx-HEOI-OyjDai. Feels well rested in the morning. No more daytime drowsiness. Current Outpatient Medications on File Prior to Visit Medication Sig Dispense Refill cholecalciferol (Vitamin D-3) 50 MCG (1999) capsule Take 2,000 Units by mouth Daily levothyroxine (Synthroid, Levoxyl) 100 MCG tablet TAKE 1 TABLET BY MOUTH EVERY DAY IN THE MORNING ON EMPTY STOMACH FOR 90 DAYS 90 tablet 4 LORazepam (Ativan) 0.5 MG tablet Take 0.5 mg by mouth Daily as needed for anxiety meclizine (Antivert) 25 MG tablet Take 1 tablet (25 mg) by mouth 3 (three) times a day as needed for dizziness 30 tablet 0 metFORMIN (Glucophage) 500 MG tablet TAKE 1 TABLET BY MOUTH EVERY DAY WITH A MEAL 100 tablet 3 omeprazole (PriLOSEC) [address] capsule Take 20 mg by mouth in the morning and 20 mg in the evening.Take before meals. risperiDONE (RisperDAL) 2 MG tablet [...] mouth in the morning and 75 mg beforebedtime. No current facility-administered medications on file prior to visit. I have reviewed and reconciled the history and medication list with the patient today. No Known Allergies Social History Tobacco Use Smoking status: Never Smokeless tobacco: Never Vaping Use Vaping status: Never Used Substance Use Topics Alcohol use: Never Comment: Caffeine intake: none Drug use: Never Family History Problem Relation Name Age of Onset Diabetes Father Heart failure Sister Cancer Sister Kidney cancer Sibling Heart failure Sibling Sister , diagnosed with cancer Past Medical History: Diagnosis Date Abnormal glucose tolerance test Acute sinusitis Anemia Asthma Basal cell carcinoma (BCC) of right cheek 01/02/2021 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 bronchus Gangrenous cholecystitis 09/03/2024 GERD (gastroesophageal reflux disease) Hyperlipidemia (CMS/HCC) Hypertension (CMS/HCC) Idiopathic subglottic tracheal stenosis 2008 Obesity Thyroid disease (CMS/HCC) Past Surgical History: Procedure Laterality Date CHOLECYSTECTOMY 05/16/2023 EXCISION HIDRADENITIS OF INGUINAL / UMBILICAL AREA FEMINIZING AUGMENTATION MAMMOPLASTY Bilateral HERNIA REPAIR 1963 OTHER SURGICAL HISTORY 04/2016 Laryngoscopy, Bronchoscopy & Tracheal Dilation; 2010 and 03/19/2021 OTHER SURGICAL HISTORY 2009 laser/dilation;Disease:subglottic/tracheal stenosis; 2012 [place] BRNCHSC W/TRACHEAL/BRONCHIAL DILAT/CLSD RDCTJ FX 2007 endoscopy w/ tracheal dilitation Visit Vitals Smoking Status Never Review of Systems Constitutional: Negative. HENT: Negative. Eyes: Negative. Respiratory: Positive for apnea. Cardiovascular: Negative. Gastrointestinal: Negative. Genitourinary: Negative. Musculoskeletal: Negative. Skin: Negative. Neurological: Negative. Psychiatric/Behavioral: Negative. All other systems reviewed and are negative. Endocrine: Negative. Objective Physical Exam Vitals reviewed. Constitutional: Appearance: Normal appearance. HENT: Head: Normocephalic. Nose: Nose normal. Mouth/Throat: Mouth: Mucous membranes are moist. Pharynx: Oropharynx is clear. Cardiovascular: Rate and Rhythm: Normal rate. Pulmonary: Effort: Pulmonary effort is normal. Skin: General: Skin is warm and dry. Neurological: General: No focal deficit present. Mental Status: She is alert and oriented to person, place, and time. Psychiatric: Mood and Affect: Mood normal. Behavior: Behavior normal. Thought Content: Thought content normal. Judgment: Judgment normal. Assessment/Plan Diagnoses and all orders for this visit: BiPAP (biphasic positive airway pressure) dependence - Respiratory Therapy Supplies (CareTouch CPAP & BIPAP Hose) misc; 1 Dose at bedtime - Respiratory Therapy Supplies (Reusable Comfortseal Mask-MED) misc; 1 Device at bedtime Mirage Activa LT Mask [id number] for CPAP Pt needs supplies. Her CPAP is still beneficial for her. The company that she was using told her that she needed to be seen in the office. No follow-ups on file. documented in this encounterWashington University Medical [id number] History of Present illness Narrative* SAMANTHA Bañuelos - 09/03/2024 1:30 PM EDTAssociated Order(s): Ear Cerumen Removal Images from the original note were not included. Subjective Patient ID: Bette Villafana is a 69 y.o. female who presents for plugged ear and vertigo. Bette is present today for evaluation of plugged ear. Admits woke up this morning and her right ear feels plugged, painful and she was dizzy she was off balance when she got up and when she took a shower and she remains dizzy. She did take a meclizine this morning and it did help. Current Outpatient Medications on File Prior to Visit Medication Sig Dispense Refill cholecalciferol (Vitamin D-3) 50 MCG (1999 UT) capsule Take 2,000 Units by mouth Daily [DISCONTINUED] meclizine (Antivert) 25 MG tablet Take 25 mg by mouth 3 (three) times a day as needed for dizziness levothyroxine (Synthroid, Levoxyl) 100 MCG tablet TAKE 1 TABLET BY MOUTH EVERY DAY IN THE MORNING ON EMPTY STOMACH FOR 90 DAYS 90 tablet 4 LORazepam (Ativan) 0.5 MG tablet Take 0.5 mg by mouth Daily as needed for anxiety metFORMIN (Glucophage) 500 MG tablet TAKE 1 TABLET BY MOUTH EVERY DAY WITH A MEAL 100 tablet 3 omeprazole (PriLOSEC) [address] capsule Take 20 mg by mouth in the morning and 20 mg in the evening.Take before meals. risperiDONE (RisperDAL) 2 MG tablet [...] mouth in the morning and 75 mg beforebedtime. No current facility-administered medications on file prior to visit. I have reviewed and reconciled the history and medication list with the patient today. No Known Allergies Social History Tobacco Use Smoking status: Never Smokeless tobacco: Never Vaping Use Vaping status: Never Used Substance Use Topics Alcohol use: Never Comment: Caffeine intake: none Drug use: Never Family History Problem Relation Name Age of Onset Diabetes Father Heart failure Sister Cancer Sister Kidney cancer Sibling Heart failure Sibling Sister , diagnosed with cancer Past Medical History: Diagnosis Date Abnormal glucose tolerance test Acute sinusitis Anemia Asthma Basal cell carcinoma (BCC) of right cheek 01/02/2021 Mohs Cholecystitis 05/16/2023 Cholelithiasis 05/15/2023 Depression (CMS/HCC) Disease of trachea and bronchus Disease of trachea and bronchus Gangrenous cholecystitis 09/03/2024 GERD (gastroesophageal reflux disease) Hyperlipidemia (CMS/HCC) Hypertension (CMS/HCC) Idiopathic subglottic tracheal stenosis 2008 Obesity Thyroid disease (CMS/HCC) Past Surgical History: Procedure Laterality Date CHOLECYSTECTOMY 05/16/2023 EXCISION HIDRADENITIS OF INGUINAL / UMBILICAL AREA FEMINIZING AUGMENTATION MAMMOPLASTY Bilateral HERNIA REPAIR 1963 OTHER SURGICAL HISTORY 04/2016 Laryngoscopy, Bronchoscopy & Tracheal Dilation; 2010 and 03/19/2021 OTHER SURGICAL HISTORY 2008 laser/dilation;Disease:subglottic/tracheal stenosis; 2011 [place] BRNCHSC W/TRACHEAL/BRONCHIAL DILAT/CLSD RDCTJ FX 2007 endoscopy w/ tracheal dilitation Visit Vitals BP 112/68 Pulse 81 Resp 16 Ht 5' 5 Wt 268 lb 12.8 oz SpO2 95% BMI 44.73 kg/m Smoking Status Never BSA 2.37 m Review of Systems Constitutional: Negative for chills, fatigue and fever. HENT: Ear feels plugged Respiratory: Negative for cough, shortness of breath and wheezing. Cardiovascular: Negative for chest pain, palpitations and leg swelling. Gastrointestinal: Negative for abdominal pain, constipation, diarrhea, nausea and vomiting. Skin: Negative for rash. Neurological: Positive for dizziness. Objective Physical Exam Constitutional: General: She is not in acute distress. Appearance: She is well-developed. She is obese. HENT: Head: Normocephalic and atraumatic. Right Ear: There is impacted cerumen. Left Ear: Tympanic membrane normal. Ears: Comments: Mild cerumen in left canal. Pain with pressure over the right tragus. Eyes: General: No scleral icterus. Conjunctiva/sclera: Conjunctivae normal. Cardiovascular: Rate and Rhythm: Normal rate and regular rhythm. Heart sounds: Normal heart sounds. No murmur heard. Pulmonary: Effort: Pulmonary effort is normal. No respiratory distress. Breath sounds: Normal breath sounds. No wheezing, rhonchi or rales. Skin: General: Skin is warm and dry. Neurological: General: No focal deficit present. Mental Status: She is alert and oriented to person, place, and time. Cranial Nerves: No cranial nerve deficit. Motor: No weakness. Psychiatric: Mood and Affect: Mood normal. Behavior: Behavior normal. Ear Cerumen Removal Date/Time: 09/03/2024 1:55 PM Performed by: SAMANTHA Bañuelos Authorized by: SAMANTHA Bañuelos Consent: Consent obtained: Verbal Consent given by: Patient Risks, benefits, and alternatives were discussed: yes Risks discussed: Bleeding, infection, pain, TM perforation, incomplete removal and dizziness Alternatives discussed: No treatment, alternative treatment and referral Procedure details: Location: R ear Procedure type: curette Procedure type comment: Irrigation with warm water and hydrogen peroxide Procedure outcomes: cerumen removed Post-procedure details: Inspection: Ear canal clear and TM intact Hearing quality: Improved Procedure completion: Tolerated well, no immediate complications Assessment/Plan Diagnoses and all orders for this visit: Right ear impacted cerumen - Ear Cerumen Removal Right ear irrigated today successfully. Pt tolerated this well. No cerumen remaining in canal. Dizziness - meclizine (Antivert) 25 MG tablet; Take 1 tablet (25 mg) by mouth 3 (three) times a day as neededfor dizziness Refill provided on the above. She can continue to use it as needed. It may cause drowsiness. She has taken it in the past with good relief of symptoms. Other infective acute otitis externa of right ear - bgrijhoy-qmisdbtjn-gqlhjavwhfjolk (Cortisporin) 3.5-31298-5 otic suspension; Administer 3 drops into the right ear in the morning and 3 drops at noon and 3 drops in the evening and 3 drops before bedtime. Do all this for [address] in affected ear. Right ear canal was diffusely erythematous with mild swelling, visible after irrigation. TM was intact and clear. Pt noted immediate improvement in hearing in the right ear following irrigation. Start Cortisporin otic as prescribed. Contact office if this does not improve. Follow up in about 5 months (around 02/14/2025) for Medicare Wellness Visit. documented in this encounterWashington University Medical [id number] Evaluation + Plan note* Assessment & Plan Note - Dominic Saldana MD - 07/19/2024 9:40 AM EDTAssociated Problem(s): Hypothyroidism Orders: Thyroid Stimulating Hormone; Future Thyroxine, Free; Future IGF-I; Future [facility] Work Phone: 1(307) 413-199903-20-2025 Evaluation + Plan note* Assessment & Plan Note - Dominic Saldana MD - 07/19/2024 9:40 AM EDTAssociated Problem(s): Diabetes (Multi) [facility] Work Phone: 1(426) 898-412703-20-2025 History of Present illness Narrative* Dominic Saldana MD - 07/19/2024 9:40 AM EDT Patient coming in for follow up for T2DM Subjective Bette Villafana is a 69 y.o. female who presents for follow up for Type 2 diabetes mellitus. Lab Results Component Value Date HGBA1C 5.9 (H) 04/10/2024 Bette Villafana is a 69 y.o. female who presents for initial visit for evaluation of Type 2 diabetes mellitus. The initial diagnosis of diabetes was made in 2022. At diagnosis it was 6.6%. One brother had kidney cancer and had to take the adrenal glands both out Last A1c in Apr was 5.9% In 2021 started ozempic in April lost 25 lbs. 0.25 mg initially currently on 0.5 mg (for around 6 months) Had a GB attack had cholecystectomy May 2023. In 2022 UTI and pyelonephropathy Jun 2022: 1.2 cm right adrenal nodule measuring 37 HU. Left adrenal gland unremarkable Current meds: Stopped Metformin 500 mg daily with lunch Ozempic 0.5 mg weekly Tuesday 3 bouts of diarrhea a week usually 1 hour of Metformin now improved Levothyroxine 100 mcg daily takes appropriately Omeprazole 20 mg once daily since Jan before was BID Simvastatin 40 mg Venlafaxine 75 mg BID and risperidone Bipolar, sleep apnea on CPAP Numbness tingling in hands No proximal weakness [...] Urine Albumin: UACR neg in October 2023 CT abdomen showed ADRENALS: 1.0 cm right adrenal nodule with 71% absolute washout and 48% relative washout which are both predicted of an adrenal adenoma. Blood work done after last visit showed normal catecholamines and baseline cortisol Dex suppression test cortisol 0.4 with dex 452 AntiTPO postive. Review of Systems all pertinent systems reviewed and are otherwise negative Objective BP 134/74 (BP Location: Left arm, Patient Position: Sitting, BP Cuff Size: Large adult) Temp 36.4C (97.5 F) Ht 1.645 m (5' 4.75 ) Wt 120 kg (264 lb) BMI 44.27 kg/m Physical Exam Constitutional: General: She is [...] normal. Lab Review Glucose (mg/dL) Date Value 04/10/2024 101 (H) 03/13/2021 95 Hemoglobin A1C (%) Date Value 04/10/2024 5.9 (H) Bicarbonate (mmol/L) Date Value 04/10/2024 28 03/13/2021 28 Urea Nitrogen (mg/dL) Date Value 04/10/2024 12 03/13/2021 19 Creatinine (mg/dL) Date Value 04/10/2024 0.67 03/13/2021 0.77 No results found for: CHOL No results found for: HDL No results found for: LDLCALC No results found for: TRIG No components found for: CHOLHDL Lab Results Component Value Date TSH 3.61 04/10/2024 No results found for: PRAMOD , [id number] Health Maintenance: Assessment/Plan Bette Villafana is a 69 y.o. female who presents for follow up for Type 2 diabetes mellitus and hypothyroidism The initial diagnosis of diabetes was made in 2022. At diagnosis it was 6.6%. One brother had kidney cancer and had to take the adrenal glands both out Last A1c in Apr was 5.9% In 2021 started ozempic in April lost 25 lbs. 0.25 mg initially currently on 0.5 mg (for around 6 months) Had a GB attack had cholecystectomy May 2023. In 2022 UTI and pyelonephropathy Jun 2022: 1.2 cm right adrenal nodule measuring 37 HU. Left adrenal gland unremarkable Current meds: Stopped Metformin 500 mg daily with lunch Ozempic 0.5 mg weekly Tuesday 3 bouts of diarrhea a week usually 1 hour of Metformin now improved Levothyroxine 100 mcg daily takes appropriately. TSH 3.61 Omeprazole 20 mg once daily since Jan before was BID Simvastatin 40 mg Venlafaxine 75 mg BID and risperidone Bipolar, sleep apnea on CPAP Numbness tingling in hands Foot size grew 1/2 size Hot flashes and night sweats Echo normal Restrictive lung disease Foot Exam: No numbness or tingling Eye Exam: summer no retinopathy started cataracts Lipid Panel: On simvastatin 40 mg Urine Albumin: UACR neg in October 2023 Plan: Increase levothyroxine to 100 mcg 7.5 tabs per week to be taken on an empty stomach on its own 30min before other meds or food Blood work in 6 weeks For the adrenal nodule Follow up in 1 year T2DM/ weight Increase ozempic to 1 mg RTC in 1 year Assessment & Plan Hypothyroidism, unspecified type Orders: Thyroid Stimulating Hormone; Future Thyroxine, Free; Future IGF-I; Future Class 3 severe obesity with serious comorbidity and body mass index (BMI) of 40.0 to 44.9 in adult,unspecified obesity type Orders: Thyroid Stimulating Hormone; Future Thyroxine, Free; Future IGF-I; Future Adrenal nodule Type 2 diabetes mellitus without complication, without long-term current use of insulin [facility] Work Phone: 1(118) 357-754203-20-2025 Instructions* Patient Instructions* Dominic Saldana MD - 07/19/2024 9:40 AM EDT For your thyroid Increase levothyroxine to 100 mcg 7.5 tabs per week to be taken on an empty stomach on its own 30min before other meds or food Blood work in 6 weeks For the adrenal nodule Follow up in 1 year T2DM/ weight Increase ozempic to 1 mg RTC in 1 year [facility] Work Phone: 1(864) 543-110503-20-2025 Miscellaneous Notes* Assessment & Plan Note - Dominic Saldana MD - 07/19/2024 9:40 AM EDTAssociated Problem(s): Hypothyroidism Orders: Thyroid Stimulating Hormone; Future Thyroxine, Free; Future IGF-I; Future * Assessment & Plan Note - Dominic Saldana MD - 07/19/2024 9:40 AM EDTAssociated Problem(s): Diabetes (Multi) [facility] Work Phone: 1(428) 215-996212-10-2024 Evaluation + Plan note* Assessment & Plan Note - Dominic Saldana MD - 04/10/2024 8:20 AM ESTAssociated Problem(s): Hypothyroidism Orders: Thyroid Stimulating Hormone; Future Thyroid Peroxidase (TPO) Antibody; Future Thyroxine, Free; Future [facility] Work Phone: 1([phone]) 150-641612-10-2024 Evaluation + Plan note* Assessment & Plan Note - Dominic Saldana MD - 04/10/2024 8:20 AM ESTAssociated Problem(s): Diabetes (Multi) Orders: Hemoglobin A1C; Future [facility] Work Phone: 1([phone]) 842-523312-10-2024 History of Present illness Narrative* Dominic Saldana MD - 04/10/2024 8:20 AM EST Patient is sent at the request of [...] . At diagnosis it was 6.6%. The patientdoes have a known family history of diabetes. [...] times per day. Diet: terrible works in [employer] Breakfast: Cheerios 1/2 bowl 1 % [...] TSH No results found for: ALBUR , [id number] Health Maintenance: Assessment/Plan Bette Villafana is a [...] go to the lab and get your bloodworkdone -this test is best done if you [...] 1 time for 1 dose. -take 1mg ofdexamethasone around 10- 11 pm, blood work at 8am DHEA-Sulfate; Future CT adrenals w and wo IV contrast; Future Hypothyroidism, unspecified type Orders: Thyroid Stimulating Hormone; Future Thyroid Peroxidase (TPO) Antibody; Future Thyroxine, Free; Future Type 2 diabetes mellitus without complication, without long-term current use of insulin (Multi) Orders: Hemoglobin A1C; Future . [facility] Work Phone: 1(586) 501-145012-10-2024 Instructions* Patient Instructions* Dominic Saldana MD - 04/10/2024 8:20 AM EST Blood work today Dexamethasone suppression test next week Dexamethasone suppression test -take 1mg of dexamethasone around 10- 11 pm -the following morning, around 8am (Time sensitive) you should go to the lab and get your bloodworkdone -this test is best done if you [...] for at least 7hrs documented in this [facility]Mer[facility] Work Phone: 1(156) 767-199112-10-2024 Miscellaneous Notes* Assessment & Plan Note - Dominic Saldana MD - 04/10/2024 8:20 AM ESTAssociated Problem(s): Hypothyroidism Orders: Thyroid Stimulating Hormone; Future Thyroid Peroxidase (TPO) Antibody; Future Thyroxine, Free; Future * Assessment & Plan Note - Dominic Saldana MD - 04/10/2024 8:20 AM ESTAssociated Problem(s): Diabetes (Multi) Orders: Hemoglobin A1C; Future documented in [facility]Mer[facility] Work Phone: 1([phone]) 310-161311-04-2024 Telephone encounter Note* Telephone Encounter - Justine Bell - 03/05/2024 3:25 PM EST [facility] and stated that they tried to contact the patient to schedule appt for the referral that was sent to them but tired to two weeks to contact and is unable to get ahold of them. [facility] [id number] Miscellaneous Notes* Telephone Encounter - Justine Bell - 03/05/2024 3:25 PM EST [facility] and stated that they tried to contact the patient to schedule appt for the referral that was sent to them but tired to two weeks to contact and is unable to get ahold of them. documented in this encounterWashington University Medical [id number] History of Present illness Narrative* Ronnie Murphy MD - 02/21/2024 1:15 PM EDT Provider Impressions Tracheal stenosis. Her [...] evidence of any inflammation. documented in this [facility] Work Phone: 1(201) 341-483410-15-2024 History of Present illness Narrative* Shantel Bahena LPN - 02/14/2024 9:00 AM EDT HPI Med Refill Additional comments: Metformin, levothyroxine,simvastain--[facility] Last edited by Shantel Bahena LPN on 02/14/2024 9:06 AM. * Cristina Yari Hubbard, HOSPICE VOLUNTEER - 02/14/2024 9:00 AM EDT Images from the original note were not [...] the morning and 20 mg in the evening.Take before meals. risperiDONE (RisperDAL) 2 MG tablet [...] mouth in the morning and 75 mg beforebedtime. No current facility-administered medications for this visit. [...] Do you have a medical power of bankruptcy attorney?: No Objective : BP 128/66 Pulse [...] All needed testing was ordered. Will continue withyearly Medicare Wellness exams. - POCT Glycated hemoglobin, [...] CBC; Future - CBC 13. Acquired hypothyroidism ([facility]) This is a chronic medical condition that is stable since last assessment. No changes in treatment are suggested at this time. - TSH; Future - TSH 14. Morbid obesity with BMI of 40.0-44.9, adult ([facility]) Discussed goal of BMI < 30. Advised on weight loss options. Encouraged diet and exercise. Discussed with patient appropriate lifestyle modification changes necessary for weight management, heart healthy eating and overall health promotion. Discussed minimizing high carb, high sugar, high sodium,portion control, and processed foods while making healthy choice replacements. Additionally discussed recommendations of 30 minutes of aerobic exercise at least 5 days per week, that includes, walking, and chair exercises. . Instructed importance of drinking adequate water consumption (if not on fluid restriction) with minimal sugar and caffiene. 15. Type 2 diabetes mellitus without complication, without long-term current use of insulin ([facility]) We discussed today, the importance of proper [...] control with the patient. If the patient stillhas questions on this, a referral to a Dietitian can be arranged. I reviewed medications that aid in diabetic control. We discussed proper dosing and educated the patient on possible side effects andcomplications. The patient verbalized understanding of these instructions. [...] time. 19. Routine general medical examination at [facility] care facility Reviewed all relevant preventative screenings with the patient in detail. Medicare Wellness form completed and will be scanned into patient's chart. All needed testing was ordered. Will continue withyearly Medicare Wellness exams. 20. Acute bronchitis, unspecified organism Start the above medications as directed. Advised of potential side effects of the steroid. Patient is to take the steroid with food. Can take Tessalon Perles prn for cough. Increase water intake, getplenty of rest. 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 [employer] Other 10-24-2023 History of Present illness Narrative* [...] evidence of any inflammation. [facility] Work Phone: [phone]) 964-726310-17-2023 Evaluation note* Encounter Date Diagnosis Assessment Notes [...] other veggie/fruit w/ dinner; PARTIALLY MET, ON-GOING [employer] Other 10-03-2023 Evaluation note* Encounter Date Diagnosis Assessment Notes Treatment Notes Treatment Clinical Notes Jan, Obesity (ICD-10 - E66.9) [facility] sent wrong diagnosis code, then sent to non preferred pharmacy. Sent to [facility] per [facility] preferred. Jan, BMI 40.0-44.9, adult (ICD-10 - [...] was counseling done by myself, Moira NICHOLS. [employer] Other 08-23-2023 Evaluation note* Encounter Date Diagnosis [...] beans, salad or other veggie/fruit w/ dinner [employer] Other 06-20-2023 Evaluation note* Encounter Date Diagnosis [...] patient set personal goal using given handout. [employer] Other 06-20-2023 Evaluation note* Encounter Date Diagnosis Assessment Notes Treatment Notes Treatment Clinical Notes Sep, Obesity (ICD-10 - E66.9) fir st sent wrong diagnosis code, then sent to non preferred pharmacy. Sent to [facility] per [facility] preferred. Sep, BMI 40.0-44.9, adult (ICD-10 - [...] was counseling done by myself, Moira NICHOLS. [employer] Other 03-28-2023 Evaluation note* Encounter Date Diagnosis Assessment Notes Treatment Notes Treatment Clinical Notes Jun, Obesity (ICD-10 - E66.9) [facility] sent wrong diagnosis code, then sent to non preferred pharmacy. Sent to [facility] per [facility] preferred. Jun, BMI 40.0-44.9, adult (ICD-10 - [...] was counseling done by myself, Moira NICHOLS. [employer] Other 02-14-2023 Evaluation note* Encounter Date Diagnosis [...] patient set personal goal using given handout. [employer] Other 01-31-2023 Evaluation note* Encounter Date Diagnosis Assessment Notes Treatment Notes Treatment Clinical Notes May, Obesity (ICD-10 - E66.9) first sent wrong diagnosis code, then sent to non preferred pharmacy. Sent to [facility]. May, BMI 40.0-44.9, adult (ICD-10 - [...] was counseling done by myself, Moira NICHOLS. [employer] Other 01-31-2023 History of Present illness Narrative* [...] abnormal poor [facility]. It suggest ventricular hypertrophy even though [...] * 5. Follow-up after testing is done [facility] [address] DO Work Phone: 1([phone]) 862-692611-02-2021 History of Present illness NarrativeThis patient presented [...] and is very pleased with the results. [facility] Work Phone: 1(605) 249-756811-02-2021 History of Present illness NarrativeThis patient presented [...] today for follow-up. Her breathing has remained stable.[facility] Work Phone: chiaz complaint Narrative - ReportedBETTE VILLAFANA is being seen for a consultation for [facility] 250 DO Work Phone: Evaluation + Plan note No data available for this section [facility] Future Appointments Appointment Date:06/14/2023 02:20:00 PM Scheduled Provider:Mayito YANG MD Location:[facility] Appointment Type:[address] General Surgery [place] Evaluation noteNo Chloe + IsabelNoSparkfly [place] Other Evaluation note* Diagnosis Tracheal stenosis- Primary Other diseases of trachea and bronchus documented in this encounter [facility] Work Phone: Evaluation noteNo assessment information available [facility] Work Phone: evaluation note* Diagnosis Onset Date Resolution Status Abnormal CT of the abdomen a cute Acid reflux acute Adrenal abnormality acute Anxiety and depression acute Bipolar disorder acute BMI 40.0-44.9, adult acute Diabetes type 2, uncontrolled acute Fatigue acute Fatty pancreas acute Hyperlipidemia acute Hypertriglyceridemia acute Hypothyroid acute Obesity acute RYANNE (obstructive sleep apnea) acute Snores acute Vitamin D deficiency acute [facility] Work Phone: Evaluation note* Diagnosis [...] deficiency acute Allergies acute Sore throat noneactive [facility] Work Phone: Evaluation note* Diagnosis Onset [...] acute Snores acute Vitamin D deficiency acute [facility] Work Phone: Evaluation note* Diagnosis Onset [...] acute Snores acute Vitamin D deficiency acute [facility] Work Phone: Evaluation note* Diagnosis Medicare [...] specified complication (CMS/HCC) documented in this encounter [facility] HealthcareEvaluation note* Diagnosis Tracheal stenosis- Primary Other diseases of trachea and bronchus Gastroesophageal reflux disease without esophagitis Esophageal reflux documented in this encounter [facility] Work Phone: Evaluation note* Diagnosis Adrenal nodule- Primary Benign neoplasm of adrenal gland Hypothyroidism, unspecified type Type 2 diabetes mellitus without complication, without long-term current use of insulin (Multi) documented in this encounter [facility] Work Phone: Evaluation note* Diagnosis Adrenal nodule- Primary Benign neoplasm of adrenal gland Hypothyroidism, unspecified type Type 2 diabetes mellitus without complication, without long-term current use of insulin Hypothyroidism, unspecified type- Primary Class 3 severe obesity with serious comorbidity and body mass index (BMI) of 40.0 to 44.9 in adult, unspecified obesity type Adrenal nodule Benign neoplasm of adrenal gland Type 2 diabetes mellitus without complication, without long-term current use of insulin documented in this encounter [facility] Work Phone: Evaluation note* Diagnosis Adrenal nodule- Primary Benign neoplasm of adrenal gland Hypothyroidism, unspecified type Type 2 diabetes mellitus without complication, without long-term current use of insulin Hypothyroidism, unspecified type- Primary Class 3 severe obesity with serious comorbidity and body mass index (BMI) of 40.0 to 44.9 in adult, unspecified obesity type Adrenal nodule Benign neoplasm of adrenal gland Type 2 diabetes mellitus without complication, without long-term current use of insulin Encounter for screening for cardiovascular disorders Mixed hyperlipidemia Type 2 diabetes mellitus without complications Cardiomegaly Other ill-defined heart diseases documented in this encounter [facility] Work Phone: Evaluation note* Diagnosis Right ear impacted cerumen- Primary Impacted cerumen Dizziness Dizziness and giddiness Other infective acute otitis externa of right ear documented in this encounter [facility]* Diagnosis BiPAP (biphasic positive airway pressure) dependence- Primary Dependence on other enabling machine documented in this encounter [facility] general Narrative - Reported* Type Description Date Medical History thyroid disease Medical History Cholesterol Medical History depression Medical History acid reflux Medical History bipolar Surgical History breast reduction Surgical History throat surgery Surgical History hernia Hospitalization History see surgical hx [facility] Other Hisngli general Narrative - Reported* Type Description Date Medical History thyroid disease Medical History Cholesterol Medical History depression Medical History acid reflux Medical History bipolar Surgical History breast reduction Surgical History throat surgery Surgical History hernia Hospitalization History see surgical hx Hospitalization History [facility] 07/2022 [facility] Other Hisjjpa general Narrative - Reported* Type Description Date Medical History thyroid disease Medical History Cholesterol Medical History depression Medical History acid reflux Medical History bipolar Medical History gall bladder disease Surgical History breast reduction Surgical History throat surgery Surgical History hernia Surgical History [facility] Hospitalization History see surgical hx Hospitalization History [facility] 07/2022 [facility] Other History of Present illness NarrativeThis patient [...] time it feels like it is somewhat [id number] Work Phone: Hospital Discharge instructions No data available for this section [facility] Additional Instructions Follow-up with your primary care doctor [facility] ED if develop worsening [facility] Work Phone: Progress note No data available for this section [facility] General Surgery [place] [facility] for referral (narrative)No reason for referral [facility] Work Phone: Reqzaf for visit Narrative* Imaging (Routine) - Authorized Specialty Diagnoses / Procedures Referred By Contac t Referred To Contact Radiology Diagnoses Encounter for screening for cardiovascular disorders Mixed hyperlipidemia Type 2 diabetes mellitus without complications Cardiomegaly Other ill-defined heart diseases Procedures CT cardiac scoring wo IV contrast Cristina Hubbard, ECONOMIC GEOGRAPHER-CLINICAL MOLECULAR GENETICIST [address] [facility] [address] [place] [address] Phone: tel: fax: Referral ID Status Reason Start Date Expiration Date Visits Requested Visits Authorized [id number] Authorized Perform Procedure 4 02/17/2025 1 1 [facility] Work Phone: Family History Mother Name Dates Details Family history of [...] Date/T lelo father Diabetes mellitus Unknown Unknown Heart disease Unknown family member Unknown mother Family history of mental disorder Unknown Malignant neoplasm Unknown brother Diabetes mellitus Unknown brother Malignant neoplasm Unknown Malignant neoplasm of kidney Unknown Chief Complaint Follow-up regarding tracheal stenosisFollow-up regarding tracheal stenosis Follow-up regarding tracheal stenosis Summary Purpose Advance Directives Advance Directive Response Recorded Date/ Time Advance [...] 3 Fatty pancreas (K86. 89) Referral Organization [facility] Referring Provider First Name Lilliam Referring Provider Last Name Guerita Referring Provider Specialty Nurse Pract itioner Referred Organization Unknown Facility Referred Provider Specialty Endocrinolog y Referral Priority Routine Chief Complaint and Reason for Visit Chief Complaint Admit Date October 09, 2024 10:0 0am 6-8 week-WMN f/u November 07, 2024 1:36p m unclear history of congestive heart pe r patient. December 13, 2024 9:13am R06.02 December 13, 2024 9: 15am Reason for Visit Admit Date Abnormal weight gain November 07, 2024 1:36 pm Acid reflux November 07, 2024 1:36p m Adrenal abnormality November 07, 2024 1:36p m Anxiety and depression November 07, 2024 1: 36pm Bipolar disorder November 07, 2024 1:36p m BMI 45.0-49.9, adult November 07, 2024 1:36 pm Diabetes type 2, uncontrolled November 07, 2024 1:36pm Fatigue November 07, 2024 1:36p m Fatty pancreas November 07, 2024 1:36p m Hyperlipidemia November 07, 2024 1:36p m Hypothyroid November 07, 2024 1:36p m Obesity November 07, 2024 1:36p m RYANNE (obstructive sleep apnea) November 07, 2024 1:36pm Vitamin D deficiency November 07, 2024 1:36 pm Anxiety and depression December 13, 2024 9:13am BMI 45.0-49.9, adult December 13, 2024 9 :13am Dependent edema December 13, 2024 9: 13am Diabetes type 2, uncontrolled November 9:13am GOETZ (dyspnea on exertion) December 13, 2 025 9:13am Exercise intolerance December 13, 2024 9 :13am Hyperlipidemia December 13, 2024 9: 13am Hypothyroid December 13, 2024 9: 13am RYANNE (obstructive sleep apnea) November 9:13am Chief Complaint Admit Date WMN f/u September 19, 2024 2:00p m BH October 09, 2024 10:0 0am 6-8 week-WMN f/u November 07, 2024 1:36p m Reason for Visit Admit Date Abnormal weight gain September 19, 2024 2:00 pm Acid reflux September 19, 2024 2:00p m Adrenal abnormality September 19, 2024 2:00p m Anxiety and depression September 19, 2024 2: 00pm Bipolar disorder September 19, 2024 2:00p m BMI 45.0-49.9, adult September 19, 2024 2:00 pm Diabetes type 2, uncontrolled September 19, 2024 2:00pm Fatigue September 19, 2024 2:00p m Fatty pancreas September 19, 2024 2:00p m Hyperlipidemia September 19, 2024 2:00p m Hypothyroid September 19, 2024 2:00p m Obesity September 19, 2024 2:00p m RYANNE (obstructive sleep apnea) September 19, 2024 2:00pm Vitamin D deficiency September 19, 2024 2:00 pm Abnormal weight gain November 07, 2024 1:36 pm Acid reflux November 07, 2024 1:36p m Adrenal abnormality November 07, 2024 1:36p m Anxiety and depression November 07, 2024 1: 36pm Bipolar disorder November 07, 2024 1:36p m BMI 45.0-49.9, adult November 07, 2024 1:36 pm Diabetes type 2, uncontrolled November 07, 2024 1:36pm Fatigue November 07, 2024 1:36p m Fatty pancreas November 07, 2024 1:36p m Hyperlipidemia November 07, 2024 1:36p m Hypothyroid November 07, 2024 1:36p m Obesity November 07, 2024 1:36p m RYANNE (obstructive sleep apnea) November 07, 2024 1:36pm Vitamin D deficiency November 07, 2024 1:36 pm Chief Complaint Admit Date July 03, 2024 3:00 am WMN f/u July 04, 2024 1:57 pm Chief Complaint Congestion, sore thr oat WMN f/u e11.9 8-10 week f/u WMN f/u Reason for [...] section and content) DATE CREATED AUTHOR 06/02/2022 [facility] DATE CREATED AUTHOR AUTHOR'S ORGANIZ ATION 06/02/2022 [employer] DATE CREATED AUTHOR AUTHOR'S ORGANIZ ATION 09/09/2022 [facility] DATE CREATED AUTHOR AUTHOR'S ORGANIZ ATION 06/10/2023 [facility] DATE CREATED AUTHOR AUTHOR'S ORGANIZ ATION 08/06/2024 [facility] DATE CREATED AUTHOR AUTHOR'S ORGANIZ ATION 08/28/2024 [facility] DATE CREATED AUTHOR AUTHOR'S ORGANIZ ATION 09/19/2024 [facility] EPIC DATE CREATED AUTHOR AUTHOR'S ORGANIZ ATION 12/15/2024 [facility] REASON FOR VISIT (unrecogniz ed section and content) Reason Comments Follow-up Reason Comments Medicare Annual Wellness Visit Subsequen t Med Refill Metformin, levothyro xine,simvastain--[facility] Reason Comments Diabetes Reason Comments Diabetes Reason Comments Sleep Apnea Needing notes for ap [employer] Reason Onset Date Comments Med Refill 10/09/2024 Care Teams (unrecognized sec tion and content) Team Status: Active Member Role Status Dates Bello Hilton II MD Primary Care Provider Active Team Status: Active Member Role Status Dates Bello Hilton II MD Primary Care Provider Active Start: October 09, 2024 Ben Wasserman MD Attending Provider Active Start: October 09, 2024 Team Status: Inactive Member Role Status Dates Bello Hilton II MD Primary Care Provider Active Start: November 07, 2024 End: November 07, 2024 Lilliam Dexter APRN Attending Provider Active Start: November 07, 2024 End: November 07, 2024 Team Status: Inactive Member Role Status Dates Bello Hilton II MD Primary Care Provider Active Start: December 13, 2024 End: December 13, 2024 Caryl Meléndez MD Attending Provider Active Sta rt: December 13, 2024 End: December 13, 2024 Team Status: Inactive Member Role Status Melvin Hilton II MD Primary Care Provider Active Start: December 19, 2024 End: December 19, 2024 LLOYD Kenyon Attending Provider Active Start: December 19, 2024 End: December 19, 2024 Team Status: Inactive Member Role Status Melvin Hilton II MD Primary Care Provider Active Start: September 19, 2024 End: September 19, 2024 Lilliam Dexter , ECONOMIC GEOGRAPHER Attending Provider Active Start: September 19, 2024 End: September 19, 2024 Team Status: Active Member Role Status Melvin Hilton II MD Primary Care Provider Active Start: July 03, 2024 Ben Wasserman MD Attending Provider Active Start: July 03, 2024 Team Status: Inactive Member Role Status Melvin Hilton II MD Primary Care Provider Active Start: July 04, 2024 End: July 04, 2024 Lilliam Dexter , ECONOMIC GEOGRAPHER Attending Provider Active Start: July 04, 2024 End: July 04, 2024 Team Status: Inactive Member Role Status Melvin [...] 09, 2023 End: August 09, 2023 Lilliam Dexter , ECONOMIC GEOGRAPHER Attending Provider Active Start: August 09, 2023 End: August 09, 2023 Team Status: Active Member Role Status Dates Lilliam Dexter , ECONOMIC GEOGRAPHER Attending Provider Active Start: March 15, 2023 Bello Hilton II MD Primary Care Provider Active Start: March 15, 2023 Team Status: Inactive Member Role Status Dates Bello Hilton II MD Primary Care Provider Active Start: May 16, 2023 End: May 16, 2023 Mayito Yang MD [facility] Attending Provider Active Start: May 16, 2023 End: May 16, 2023 Team Status: Active Member Role Status Dates Bello Hilton II MD Primary Care Provid er, Attending Provider Active Start: May 16, 2023 Team Status: Active Member Role Status Dates Bello Hilton II MD Primary Care Provid er, Attending Provider Active Start: May 17, 2023 Team Status: Active Member Role Status Dates Lilliam Dexter APRN Attending Provider Active Start: June 07, [...] 19, 2023 End: October 19, 2023 Lilliam Dexter APRN Attending Provider Active Start: October 19, [...] 20, 2023 End: December 20, 2023 Lilliam Dexter APRN Attending Provider Active Start: December 20, 2023 End: December 20, 2023 Tacking Stitch Remover Relationship Specialty Start Date End Date Bello Hilton MD [address] [place] [address] PCP - General Internal Medicine 09/21/22 Tacking Stitch Remover Relationship Specialty Start Date End Date Bello Hilton MD [address] [place] [address] PCP - General Internal Medicine 09/21/22 Tacking Stitch Remover Relationship Specialty Start Date End Date Bello Hilton MD [address] [place] [address] PCP - General Internal Medicine 02/21/24 Tacking Stitch Remover Relationship Specialty Start Date End Date Bello Hilton MD [address] [place] [address] PCP - General Internal Medicine 09/21/22 Tacking Stitch Remover Relationship Specialty Start Date End Date Bello Hilton MD [address] [place] [address] PCP - General Internal Medicine 09/21/22 Tacking Stitch Remover Relationship Specialty Start Date End Date Bello Hilton MD [address] [place] [address] PCP - General Internal Medicine 02/21/24 Tacking Stitch Remover Relationship Specialty Start Date End Date Bello Hilton MD [address] [place] [address] PCP - General Internal Medicine 02/21/24 Tacking Stitch Remover Relationship Specialty Start Date End Date Bello Hilton MD [address] [place] [address] PCP - General Internal Medicine 02/21/24 Tacking Stitch Remover Relationship Specialty Start Date End Date Bello Hilton MD [address] [place] [address] PCP - General Internal Medicine 09/21/22 Cristina Hubbard, HOSPICE VOLUNTEER [address] [place] [address] PCP - ACO Reach 06/08/24 Tacking Stitch Remover Relationship Specialty Start Date End Date Bello Hilton MD [address] [place] [address] PCP - General Internal Medicine 09/21/22 Cristina Hubbard, HOSPICE VOLUNTEER [address] [place] [address] PCP - ACO Reach 06/08/24 Tacking Stitch Remover Relationship Specialty Start Date End Date Bello Hilton MD [address] [place] [address] PCP - General Internal Medicine 09/21/22 Cristina Hubbard, HOSPICE VOLUNTEER [address] [place] [address] PCP - ACO Reach 06/08/24 Tacking Stitch Remover Relationship Specialty Start Date End Date Bello Hilton MD [address] [place] [address] PCP - General Internal Medicine 09/21/22 Cristina Hubbard, HOSPICE VOLUNTEER [address] [place] [address] PCP - ACO Reach 06/08/24 Tacking Stitch Remover Relationship Specialty Start Date End Date Bello Hilton MD [address] [place] [address] PCP - General Internal Medicine 09/21/22 Cristina Hubbard NP [address] [place] [address] PCP - ACO Reach 06/08/24 Team Status: Active Member Role Status Dates Bello Hilton II MD Primary Care Provider Active Start: December 13, 2024 Caryl Meléndez MD Attending Provider Active Sta rt: December 13, 2024 Team Status: Inactive Member Role Status Dates Bello Hilton II MD Primary Care Provider Active Start: January 02, 2025 End: January 02, 2025 Lilliam Dexter APRN Attending Provider Active Start: January 02, 2025 End: January 02, 2025 Goals (unrecognized section and content) Goals may [...] BE BASED ON THE PRIMARY CLINICAL RECORDS. [employer] provides no warranty or guarantee of the accuracy or completeness of information in this document.
[2025-02-02 12:15] LABS: Hematocrit 37.8 % (36.0-48.0); Hemoglobin 12.5 g/dL (12.0-16.0); Immature Granulocytes Abs Auto 0.10 10^3/uL (0.00-0.03); Immature Granulocytes Pct Auto 1.3 % (0.0-0.5); Lymphocytes Absolute Auto 1.6 10^3/uL (1.2-3.8); Mean Corpuscular HGB Conc 33.1 g/dL (29.9-35.2); Mean Corpuscular Hemoglobin 30.0 pg (26.7-34.0); Mean Corpuscular Volume 90.6 fL (81.0-99.0); Platelet Count 324 10^3/uL (150-450); Red Blood Count 4.17 10^6/uL (4.20-5.40); White Blood Count 7.6 10^3/uL (4.0-11.0)
[2025-02-02 12:32] LABS: Alanine Aminotransferase 25 U/L (14-59); Albumin Globulin Ratio 0.9; Albumin Level 3.7 g/dL (3.4-5.0); Alkaline Phosphatase 100 U/L (46-116); Anion Gap 12.3; Aspartate Amino Transferase 10 U/L (15-37); Blood Urea Nitrogen 11.0 mg/dL (7.0-18.0); Calcium 9.0 mg/dL (8.5-10.1); Carbon Dioxide 27.9 mmol/L (21.0-32.0); Chloride 101 mmol/L (98-107); Estimated GFR (African America >60 (>=60 mL/min/1.73m^2); Estimated GFR (Non-African Ame >60 (>=60 mL/min/1.73m^2); Globulin 3.9 g/dL; Glucose 115 mg/dL (74-106); Potassium 4.2 mmol/L (3.5-5.1); Sodium 137 mmol/L (136-145); Total Protein 7.6 g/dL (6.4-8.2)
[2025-02-02 12:35] LABS: Cholesterol 169 mg/dL (<=200); HDL Cholesterol 53 mg/dL (40-60); Triglycerides 160 mg/dL (<=150); VLDL CHOLESTEROL 32.0 mg/dL
== END 2025-02-02 11:44 | disposition home or self-care (01) ==
PROVIDERS: PCP Internal Medicine; Visit Provider Internal Medicine
DX: Z00.00 Encounter for general adult medical examination without abnormal findings (principal); R06.00 Dyspnea, unspecified; E03.9 Hypothyroidism, unspecified; E11.9 Type 2 diabetes mellitus without complications; E78.2 Mixed hyperlipidemia
CPT/HCPCS: 36415; 80053; 80061; 82043; 82570; 83036; 85025

== ENCOUNTER 2025-02-13 14:03 | Outpatient (OUT) | payer MEDICARE, OTHER, SELFPAY ==
--- OUTSIDE RECORDS SUMMARY | 2025-02-13 14:11 | XMS_ITS | CCD ---
Author Organization [facility] Care Team Providers Care Poker Supervisor Name Role Phone Ronnie Murphy Unavailable Unavailable Update Needed Unavailable Unavailable Asad Joiner Unavailable Unavailable Unavailable Unavailable Unavailable Ronnie Murphy Unavailable Unavailable Luana Cox Unavailable Unavailable Update Needed Unavailable Unavailable Unavailable Unavailable Unavailable Unavailable Unavailable Unavailable Bello Hilton II Primary Care Unavail able Irma, Dr. Nguyễn Referring Unavaila ble Traboulssi, Dr. Nguyễn Attending Unavaila ble LAVERTU, Dr. RONNIE Clark Referring Unavailabl e KRYSERTParveen, Dr. ORNNIE Clark Attending UnavailBello Whatley II Lipscomb Primary Care Unavail able Lilliam Montejo Unavailable Nikki Manning Unavailable MISC, DR GONZALEZ Attending Unavailable MISC, DR GONZALEZ Consulting Unavailable MISC, DR GONZALEZ Primary Care Unavailable MISC, DR GONZALEZ Admitting Unavailable ZIEBER, DR CAROL Chowdhury Consulting Unavailable YOBANI, DR JOSHI Primary Care Unavailable HEMMER, DR ZULMA Greenberg Attending Unavailable HEMMER, DR ZULMA Greenberg Admitting Unavailable HEMMER, DR ZULMA Greenberg Consulting Unavailable GUSTABO, LILLIAM Admitting Unavailable MISC, DR GONZALEZ Primary Care Unavailable LILLIAM MONTEJO Attending Unavailable LILLIAM MONTEJO Consulting Unavailable MISC, DR GONZALEZ Primary Care Unavailable MAYCO RENEE Attending Unavailable MAYCO RENEE Consulting Unavailable MAYCO RENEE Admitting Unavailable ANASTACIO BARBOZA Consulting Unavailable Newatia, Zeyad Consulting Unavailable Unavailable Primary Care Provider UnavailORVILLE Brewer Attending Provider TANESHA Hilton Primary Care Provider MD Mayito Yang Attending Provider BELLO HILTON Primary Care Physician Emiliano Lagos Attending Unavailable Mayito YANG Attending Unavailable SHAIKH CORDOBA Referring Unavailable Mayito YANG Attending Unavailable TANESHA Hilton Primary Care Provider MD Mayito Yang Attending Provider [phone] ORVILLE Montejo Attending Provider DO Serg Boucher Emergency Provider MD Ben Wasserman Attending Provider [phone] TANESHA Hilton Primary Care Provider ORVILLE Montejo Attending Provider TANESHA Hilton Primary Care Provider MD Ben Wasserman Attending Provider Bello Hilton MD Primary Care Provider Bello Hilton MD Primary Care Provider Bello Hilton II Primary Care Provider Ben Wasserman MD Attending Provider BELLO HILTON Primary Care Unavailable CRISTINA HUBBARD Referring Unavailable BELLO HILTON Primary Care Unavailable Cristina Hubbard NP Unavailable Bello Hilton II Primary Care Provider Lilliam Montejo APRN Attending Provider Ben Wasserman MD Attending Provider Caryl Meléndez MD Attending Provider [phone] Caryl Meléndez Admitting Unavailable Caryl Meléndez Attending Unavailable Bello Hilton Primary Care Unavailable Bello Hilton Primary Care Unavailable Ben Wasserman Admitting Unavailab Ben Melendez Attending Unavailab le Yobani IIBello Primary Care Provider [phone] Lilliam Montejo APRN Attending Provider Maricel Shultz RD Attending Provider Unavailable RONNIE MURPHY Attending Unavailable BELLO HILTON Primary Care Unavailable DOMINIC SALDANA Attending Unavailable BELLO HILTON Primary Care Unavailable DOMINIC SALDANA Attending Unavailable BELLO HILTON Primary Care Unavailable ZULMA MOE Attending Unavailable CRITSINA HUBBARD Attending Unavailable CRISTINA HUBBARD Attending Unavailable ZULMA MOE Attending Unavailable Allergies Allergy Classification Reported Allergen(s) Allergy Type Date of Onset Reaction(s) Facility (1 source) No Known Medication Allergies; Translations: [No Known Medication Allergies] Propensity to adverse reactions (disorder) [facility] Repository Medications Current Medications Medication Drug [...] weekly for 30 days E11.65 Rx Bin [id number], Group: [id number], PCN 3F, ID: [id number] Sep, Active Mounjaro 2.5 MG/ 0.5ML as directed Subcutaneous weekly for 30 days E11 Rx Bin [id number], Group: [id number], PCN 3F, ID: [id number]-- NOT covered Not-Taking Mounjaro 2.5 MG/ 0.5ML as directed Subcutaneous weekly for 30 days Rx Bin [id number], Group: [id number], PCN 3F, ID: [id number]-- NOT covered Active azithromycin 250 mg oral [...] 19, 2023 11:08am Vitamin D3 1.25 MG (34181 UT) TAKE 1 CAPSULE BY MOUTH WEEKLY FOR 56 DAYS for 56 Not-Taking/PRN take 1 capsule by [facility] every twenty-four hours Vitamin D3 50 MCG (2000 UT) 1 capsule Orally Once a day Active take 1 capsule by [facility] once daily Cholecalciferol 1.25 MG (08500 UT) 1 capsule Orally weekly for 56 days when complete take 4000 u daily OTC Not-Taking/PRN take 1 capsule by [facility] once daily Cholecalciferol 1.25 MG (47372 UT) 1 capsule Orally weekly for 56 [...] Active Start: 04-20-2020 take 1 tablet by [facility] every twenty-four hours dexAMETHasone 6 MG 1 tablet Orally Once a day for 5 day(s) Apr, Not-Taking/PRN hydrocortisone 10 mg/ml / neomycin 3.5 mg/ml / polymyxin b 55752 unt/ml otic suspension (4 sources) Aminoglycoside Antibacterial, Polymyxin-class Antibacterial, Corticosteroid Start: 09-03-2024 End: 09-18-2024 qftoadvz-botkauhcb-ywegozofr isone (Cortisporin) 3.5-84755-2 otic suspension Indications: Other infective acute otitis [...] Levoxyl) 100 MCG tablet Indications: Hypothyroidism, unspecified TAKE 1 TABLET BY MOUTH EVERY DAY IN THE MORNING ON EMPTY STOMACH FOR 90 DAYS 90 tablet 4 06/25/2024 Active Start: 01-09-2021 Levothyroxine Sodium 100 MCG [...] Active meclizine hydrochloride 25 mg oral tablet (12 sources) Antiemetic Start: 09-03-2024 End: 02-07-2025 take 1 tablet by mouth three times daily as needed for dizziness meclizine (Antivert) 25 MG tablet Indications: Dizziness Take 1 tablet (25 mg) by mouth 3 (three) times a day as needed for dizziness 30 tablet 09/03/2024 02/07/2025 Discontinued (Therapy completed) metFORMIN hydrochloride 500 mg oral tablet (20 sources) Biguanide Start: 08-20-2024 End: 02-07-2025 take 1 tablet by mouth once daily at mealtime metFORMIN (Glucophage) 500 MG tablet Indications: Type 2 diabetes mellitus without complication, without long-term current use of insulin (HCC) TAKE 1 TABLET BY MOUTH EVERY DAY WITH A MEAL 100 tablet 3 08/20/2024 02/07/2025 Discontinued (Other) Start: 05-15-2023 End: 07-04-2024 take 1 tablet by mouth once daily Metformin 500 mg tablet Discontinued 500 MG PO Daily August 01, 2023 12:00am July 04, 2024 3:09pm take 1 tablet by poli th twice daily metFORMIN (Glucophage) 500 mg [...] capsule (20 sources) Proton Pump Inhibitor Start: 06-01-2023 take 1 capsule by mouth in the morning omeprazole (PriLOSEC) [address] capsule Take 20 mg by mouth in the morning and 20 mg in the evening. Take before meals. 06/01/2023 Active Start: 08-02-2019 End: 12-13-2024 take 1 capsule [...] Therapy Supplies (CareTouch CPAP & BIPAP Hose) [facility] (8 sources) Start: 09-18-2024 End: 09-18-2025 Respiratory Therapy Supplies (CareTouch CPAP & BIPAP Hose) [facility] Indications: BiPAP (biphasic positive airway pressure) dependence 1 Dose at bedtime 1 each 1 09/18/2024 09/18/2025 Active Respiratory Therapy Supplies (Reusable Comfortseal Mask-MED) misc (8 sources) Start: 09-18-2024 Respiratory Th erapy Supplies (Reusable Comfortseal Mask-MED) [facility] Indications: BiPAP (biphasic positive airway pressure) dependence 1 Device at bedtime Mirage Activa LT Mask Nih-CARX-FwoBot for CPAP 1 each 1 09/18/2024 Active [...] tablet (20 sources) HMG-CoA Reductase Inhibitor Start: 02-07-2025 take 1 tablet by mouth at bedtime simvastatin (Zocor) 40 MG tablet Indications: Mixed hyperlipidemia Take 1 tablet (40 mg) by mouth at bedtime 100 tablet 3 02/07/2025 Active Start: 02-07-2025 take 1 tablet by poli th at bedtime simvastatin (Zocor) 40 MG tablet Indications: Mixed hyperlipidemia Take 1 tablet (40 mg) by mouth at bedtime 100 tablet 3 02/07/2025 Active Start: 04-04-2023 End: 02-07-2025 take 1 tablet by mouth once daily in the evening simvastatin (Zocor) 40 MG tablet Indications: Mixed hyperlipidemia TAKE 1 TABLET BY MOUTH EVERY DAY IN THE EVENING FOR 90 DAYS 100 tablet 3 03/27/2024 02/07/2025 Discontinued (Reorder) Simvastatin 40 M G Oral Tablet Quantity: [...] 05/15/23 Status: Ordered take 1 capsule by [facility] every twenty-four hours in the [...] 30 mg oral tablet (16 sources) Uncompetitive M-lwhpyz-U-aspartat e Receptor Antagonist, Sigma-1 Agonist Start: 04-20-2020 take 1 tablet by mouth every six hours Wiseman DMT 30-30 MG 1 tablet Orally every [...] weekly for 30 days E11.65 Rx Bin [id number], Group: [id number], PCN 3F, ID: [id number]-- NOT covered Not-Taking/PRN predniSONE 50 mg oral [...] Acute bronchitis; Translations: [Acute bronchitis] 02-14-2024 Episodic Administrative/social admission (2 sources) Patient encounter status; Translations: [Other specified counseling] 02-07-2025 Episodic Allergic reactions (14 sources) Allergic condition; Translations: [Allergy, unspecified, initial encounter] 10-05-2023 Episodic Anxiety disorders (20 sources) Mixed anxiety and depressive disorder; Translations: [Other specified anxiety disorders] Onset: Chronic Chronic obstructive pulmonary disease and bronchiectasis [...] type, not stated as uncontrolled] Onset: 3 Resolved: 5 01-23-2023 Chronic Disorders of lipid metabolism (20 [...] INFECTIONS] Onset: 3 Episodic Heart valve disorders (20 sources) Rheumatic disorders of both mitral and aortic valves; 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] Onset: 8 09-21-2022 Chronic Lymphadenitis (20 sources) Disorder of intra-abdominal lymph nodes; Translations: [Localized enlarged lymph nodes] Onset: 3 09-22-2022 Episodic Malaise and fatigue (20 sources) Other fatigue; Translations: [Weakness] Onset: 3 Episodic Menopausal disorders (4 sources) Decreased estrogen level; Translations: [Other primary [...] Onset: 3 Chronic Other aftercare (1 source) half-way (current) use of oral hypoglycemic drugs; Translations: [[facility] USE ORAL HYPOGLYCEMIC DX] Onset: 3 Episodic Other aftercare (1 source) Other intermission coordinator (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; Translations: [OTH [facility] CURRENT DRUG THERAPY] Onset: 3 Episodic Other and ill-defined heart disease (20 sources) Right ventricular systolic dysfunction; Translations: [Other ill-defined heart diseases] Onset: 3 09-21-2022 Chronic Other and ill-defined heart disease (20 sources) Left ventricular hypertrophy; Translations: [Cardiomegaly] Onset: [...] ill-defined heart diseases] Onset: 5 Chronic Other and unspecified benign neoplasm (20 sources) Tubular adenoma of colon; Translations: [Benign neoplasm of colon, unspecified] Onset: 3 09-21-2022 Episodic Other connective tissue disease (4 sources) Trigger [...] Translations: [Heartburn] 08-01-2023 Episodic Other gastrointestinal disorders (20 sources) Esophageal dysphagia; Translations: [Other dysphagia] Onset: 3 09-21-2022 Episodic Other gastrointestinal disorders (1 source) Adrenal mass 04-15-2024 Episodic Other liver diseases (20 sources) Large liver; Translations: [Hepatomegaly, not elsewhere classified] Onset: 3 09-22-2022 Episodic Other lower respiratory disease (12 sources) Snoring; Translations: [Other respiratory abnormalities] Episodic Other lower respiratory disease (13 sources) Snoring; Translations: [Snoring] 08-01-2023 Episodic Other lower respiratory disease (20 sources) Dyspnea on exertion; Translations: [Other forms of dyspnea] Onset: 3 09-21-2022 Episodic Other lower respiratory disease (1 source) Shortness of breath; Translations: [Shortness of breath] Onset: 5 Episodic Other non-epithelial cancer of skin (20 sources) Basal cell carcinoma of cheek; Translations: [Basal cell carcinoma of skin of other parts of face] Onset: 3 Resolved: 5 09-21-2022 Episodic Other non-traumatic joint disorders (13 sources) [...] nutritional; endocrine; and metabolic disorders (20 sources) Lipoprotein deficiency disorder; Translations: [Lipoprotein deficiency] [...] Episodic Other upper respiratory disease (18 sources) Allergic rhinitis; Translations: [Allergic rhinitis, unspecified] Onset: 3 09-21-2022 Chronic Other upper respiratory disease (2 sources) Allergic rhinitis due to pollen; Translations: [Allergic rhinitis due to pollen] 02-07-2025 Chronic Other upper respiratory disease (20 sources) Stenosis of trachea; Translations: [Other diseases of trachea and bronchus] Onset: 3 02-22-2023 Episodic Other upper respiratory infections (4 sources) [...] (adult)(pediatric)] Onset: 3 Chronic Residual codes; unclassified (20 sources) Dependence on biphasic positive airway pressure ventilation; Translations: [Dependence on other enabling machines and devices] Onset: 3 09-21-2022 Chronic Residual codes; unclassified (20 sources) Edema of lower extremity; Translations: [Localized edema] Onset: 3 09-21-2022 Episodic Residual codes; unclassified (7 sources) Dependent edema; [...] W/AND (SUSP) EXPOS COVID-19] Onset: 3 Unclassified (5 sources) Patient encounter status 02-14-2024 Unclassified (2 sources) R68.89 - Other general symptoms and signs,R60.9 - Edema, unspecified,Z68.42 - Body mass index [BMI] 45.0-49.9, adult Unclassified (1 source) Obesity, class 3; Translations: [Obesity, class 3] Onset: 5 Past or Other Problems Problem Classification Problem Date Documented Da te Episodic/Chronic Biliary tract disease (13 sources) Acute cholecystitis; Translations: [Acute cholecystitis] Onset: 06-03-2023 Resolved: 09-03-2024 Episodic Mood disorders (2 sources) Mood disorders Onset: 02-07-2025 02-07-2025 Other gastrointestinal disorders (20 sources) Dysphagia; Translations: [Dysphagia, unspecified] Onset: 01-23-2023 01-23-2023 Episodic Other lower respiratory disease (8 sources) Dyspnea; Translations: [Other respiratory abnormalities] Onset: 01-23-2023 01-23-2023 Episodic Other lower respiratory disease (1 source) Other forms of dyspnea; Translations: [OTHER FORMS OF DYSPNEA] Onset: 05-13-2022 Episodic Other nutritional; endocrine; and metabolic disorders (18 sources) Morbid obesity; Translations: [Morbid (severe) obesity due to excess calories] Onset: 09-21-2022 Resolved: 02-07-2025 09-21-2022 Chronic Other upper respiratory disease (2 [...] KIDNEY] Onset: 05-13-2022 Episodic Residual codes; unclassified (20 sources) Never smoked any substance; Translations: [Other specified health status] Onset: 01-23-2023 Resolved: 02-07-2025 01-23-2023 Episodic Unclassified (1 source) Exposure to 2019 [...] Name Value Interpretation Reference Range Facility ALL CBC WITH AUTO DIFFon BASOPHILS ABSOLUTE AUTO 0.1 N [facility] Basophils/100 WBC (Bld) 0.7 % 0.2 - 2.0 % [facility] Eosinophils/100 WBC (Bld) 1 % 0.9 - 7.0 % [facility] Erythrocyte distribution width (RBC) [Ratio] 12.8 % 11.0 - 15.0 % [facility] Hematocrit (Bld) [Volume fraction] 37.8 % 36.0 - 48.0 % [facility] Hemoglobin (Bld) [Mass/Vol] 12.5 g/dL 12.0 - 16.0 g/dL [facility] IMMATURE GRANULOCYTES ABS AUTO 0.1 High [facility] Immature granulocytes/100 WBC (Bld) 1.3 % High 0.0 - 0.5 % [facility] LYMPHOCYTES ABSOLUTE AUTO 1.6 [facility] Lymphocytes/100 WBC (Bld) 20.4 % Low 20.5 - 60.0 % [facility] MCH (RBC) [Entitic mass] 30 pg 26.7 - 34.0 pg [facility] MCHC (RBC) [Mass/Vol] 33.1 g/dL 29.9 - 35.2 g/dL [facility] MCV (RBC) [Entitic vol] 90.6 fL 81.0 - 99.0 fL [facility] MONOCYTES ABSOLUTE AUTO 0.5 N [facility] Monocytes/100 WBC (Bld) 6.4 % 1.7 - 12.0 % [facility] NEUTROPHILS ABSOLUTE AUTO 5.4 [facility] Neutrophils/100 WBC (Bld) 70.2 % 43.0 - 75.0 % [facility] Platelet mean volume (Bld) [Entitic vol] 9.8 fL 9.5 - 13.5 fL [facility] EO # 0.1 [facility] TB PLT 324 [facility] RBC 4.17 Low [facility] WBC 7.6 [facility] MLR HEMOGLOBIN A1Con 025 Glucose [Mass/Vol] 137 mg/dL [facility] HbA1c (Bld) [Mass fraction] 6.4 % High 4.5 - 6.2 % [facility] Comment on above: ADA RECOMMENDED LIMI T 4.0 - 6.0 ADA THERAPEUTIC TARGET < 7.0 ACTION SUGGESTED > 7.0 No Panel Informationon 02-02 Interpretation and review of laboratory results Abnormal [facility] MICROALB CREAT RATIO RAN DOMon 02-02-2025 CREATININE URINE RANDOM 193.94 mg/dL 20.0 0 - 300.00 mg/dL [facility] MICROALBUMIN URINE RANDOM <1.3 NINF - 30.0 mg/dL [facility] FPG ECG *CARDIOLOGY ONLY*on 12-13-2024 FPG ECG *CARDIOLOGY ONLY* [facility] [place] [address] [place] [address] Electrocardiograph Report Signed Patient: Bette Villafana MR#: [id number] : 1955 Acct:[id number] Age/Sex: 69 / F ADM Date: 12/13/24 Loc: EKGCARDIO Room: Type: [facility] Attending Dr: Caryl Meléndez MD Ordering Provider: [...] abnormality Abnormal ECG Confirmed by Caryl Meléndez ([id number]) on 12/14/2024 12:51:23 PM Referred By: Electronically Signed By: Caryl Meléndez Transcribed By: MUS Signed By Caryl Meléndez MD 5 1251 Normal [facility] ALL THYROID STIM HORMONEon 0 10-02-2024 TSH Qn 2.837 m[IU]/L [facility] No Panel Informationon 09-03 SAMANTHA Bañuelos 09/03/2024 [...] INDICATION: Signs/Symptoms:CAD Screening. COMPARISON: None. ACCESSION NUMBER(S): [id number] ORDERING CLINICIAN: INTERFACE UNSPECIFIELDPROVIDER TECHNIQUE: Using prospective [...] coronary heart disease events. According to the [employer] Clinical Expert Consensus [...] modify other non-lipid coronary risk factors. Reference: Elisa P et al. Circulation. 2007; 115:402-426 MACRO: None Signed by: Sergio Flores 08/23/2024 12:00 PM Dictation workstation: [id number] [facility] MM TOMOSYNTHESIS SCREENING B Ion 05-31-2024 [facility] [address] [place] [address] Mammography Report Signed Patient: BETTE VILLAFANA MR#: [id number] : 1955 Acct:[id number] Age/Sex: 69 / F ADM Date: 05/30/24 Loc: MAMMO Attending Dr: BELLO HILTON Ordering Physician: BELLO HILTON Results: Date of Service: 05/30/24 Follow Up: Procedure(s): MM tomosynthesis screening BI Accession Number(s): [id number] cc: YOBANIBELLO Patient Name: BETTE VILLAFANA MR#: [id number] : 1955 Exam Date: 05/30/2024 Ordering Doctor: [...] kidney cancer at age 52. LOCATION: [facility] BREAST COMPOSITION: The breasts are almost entirely [...] Ascencio M.D. Signed By: 05/31/24 1609 DD/ 08 TD/TT: Spa Director: [facility] Radiology, Tejinderogyevgeniy jaquez MD - 05/31/2024 [place] [address] Mammography Report Signed Patient: BETTE VILLAFANA MR#: [id number] : 1955 Acct:[id number] Age/Sex: 69 / F ADM Date: 05/30/24 Loc: MAMMO Attending Dr: BELLO HILTON Ordering Physician: BELLO HILTON Results: Date of Service: 05/30/24 Follow Up: Procedure(s): MM tomosynthesis screening BI Accession Number(s): [id number] cc: BELLO HILTON Patient Name: BETTE VILLAFANA MR#: [id number] : 1955 Exam Date: 05/30/2024 Ordering Doctor: [...] kidney cancer at age 52. LOCATION: [facility] BREAST COMPOSITION: The breasts are almost entirely [...] M.D. Signed By: 05/31/241608 DD/ 08 TD/TT: Spa Director: [facility] Radiology Study observation (narrative) [facility] MM TOMOSYNTHESIS SCREENING B IOrdered By: Radiologist Radiology on 05-31-2024 [facility] Work Phone: ALL DHEA SULFATEon DHEA-SULFATE 34.8 ug/dL 20.4 - 186.6 ug/dL [facility] CORTISOLon 04-18-2024 Interpretation and review of laboratory results Abnormal [facility] CORTISOL 0.4 ug/dL Abnormal 6.2 - 19.4 ug/dL [facility] Comment on above: Please Note: The ref erence interval and flagging for this test is for an AM collection. If this is a PM collection please use: Cortisol PM: 2.3-11.9 Performed at: [facility] [place] [facility] [place] [id number] Educational Institution Curator: Saul Howard PhD, Phone: [phone] No Panel Informationon 04-18 [facility] CREATININEon 04-18-2024 Creatinine [Mass/Vol] 0.89 mg/dL 0.55 - 1.02 mg/dL [facility] GFR/1.73 sq M.predicted CKD-EPI (S/P/Bld) [Vol rate/Area] >60 >=60 mL/min/1.73m 2 [facility] EGFR-NON AF [place] >60 >=60 mL/min/1.73m 2 [facility] Catecholamines 3 panel (P) [ Mass/Vol]on 04-17-2024 DOPamine [Mass/Vol] <30 0 - 48 pg/mL [facility] EPINEPHrine (P) [Mass/Vol] <15 0 - 62 pg/mL [facility] Norepinephrine (P) [Mass/Vol] 624 pg/mL 0 - 874 pg/mL [facility] Performed at: [address] [place], [place] [address] [address] [id number] Educational Institution Curator: Estrella Leggett MD, Phone: [phone] [facility] Metanephrines Plasmaon 04-13 Annotation comment [Interpretation] Narrative See Note [facility] Comment on above: INTERPRETIVE INFORMA TION: [...] developed and its performance characteristics determined by [employer]. It has not been cleared or approved by the US Food and Drug Administration. This test was performed in a CLIA certified laboratory and is intended for clinical purposes. Performed By: [employer] [address] [place] [address] Credit Balance Specialist: Geronimo Gomez MD, PhD CLIA Number: [id number] Metanephrines [Moles/Vol] <0.10 0.00 - 0.49 nmol/L [facility] Normetanephrine Free [Moles/Vol] 0.51 nmol/L 0.00 - 0.89 nmol/L [facility] Dexamethasoneon 04-12-2024 Dexamethasone [Mass/Vol] <50.0 ng/dL [facility] Comment on above: INTERPRETIVE INFORMA TION: [...] developed and its performance characteristics determined by [employer]. It has not been cleared or approved by the US Food and Drug Administration. This test was performed in a CLIA certified laboratory and is intended for clinical purposes. Performed By: [employer] [address] [place] [address] Credit Balance Specialist: Geronimo Gomez MD, PhD CLIA Number: [id number] Dexamethasone [Mass/Vol]on 06-13-2023 [facility] Adrenocorticotropic Hormone (ACTH)on 04-11-2024 Corticotropin (P) [Mass/Vol] 37.5 pg/mL 7.2 - 63.3 pg/mL [facility] Comment on above: INTERPRETIVE INFORMA TION: Adrenocorticotropic Hormone Reference interval based on samples collected between 7 a.m. and 10 a.m. No reference intervals established for p.m. collections. Pediatric reference values are the same as adults (Acta Paediatr Scand 1981;70:341-345). This assay measures intact ACTH 1-39; some types of synthetic ACTH and ACTH fragments are not detected by this assay. Performed By: [employer] [address] [place] [address] Credit Balance Specialist: Geronimo Gomez MD, PhD CLIA Number: [id number] Corticotropin (P) [Mass/Vol] on 04-11-2024 [facility] Catecholamines 3 panel (P) [ Mass/Vol]on 04-10-2024 DOPamine [Mass/Vol] <30 Normal 0-48 [place] Comment on above: Order Comment: TSH t esting is performed using different testing methodology at [facility] than at other [facility]. Direct result comparisons should only be made within the same method. Performed By: #### 3 016-3 #### IDANIA Alexandre ([id number]) [facility] ([facility]) [address] [place] [address] EPINEPHrine (P) [Mass/Vol] <15 Normal 0-62 [facility] Comment on above: Order Comment: TSH t esting is performed using different testing methodology at [facility] than at other [facility]. Direct result comparisons should only be made within the same method. Performed By: #### 3 016-3 #### IDANIA Alexandre ([id number]) [facility] ([facility]) [address] [place] [address] Norepinephrine (P) [Mass/Vol] 624 pg/mL Normal 0-[address] [facility] Comment on above: Order Comment: TSH t esting is performed using different testing methodology at [facility] than at other [facility]. Direct result comparisons should only be made within the same method. Performed By: #### 3 016-3 #### IDANIA Alexandre ([id number]) [facility] ([facility]) [address] [place] [address] Corticotropinon 04-10-2024 Corticotropin (P) [Mass/Vol] 37.5 pg/mL Normal 7.2-63.[address] [facility] Comment [...] not detected by this assay. Performed By: [employer] [address] [place] [address] Credit Balance Specialist: Geronimo Gomez MD, PhD CLIA Number: [id number] Performed By: #### 2 141-0 #### [facility]andraVICTOR MM[facility]ESH) ([id number]) [address] [place] [address] Cortisolon 04-10-2024 Cortisol [Mass/Vol] 9.7 ug/dL 2.5 - 20 .0 ug/dL [facility] Cortisol [Mass/Vol] 9.7 ug/dL Normal 2.5-20.0 [place] Comment on above: Performed By: #### 2 143-6 #### IDANIA Alexandre ([id number]) [facility] ([facility]) [id number] [place] [address] Cortisol [Mass/Vol]on 2023 Interpretation and review of laboratory results Normal [facility] DHEA-S [Mass/Vol]on 04-10-20 24 MATURITY-BASED REFER ENCE [...] contact their local laboratory for further information. [facility] DHEA-Sulfateon 04-10-2024 DHEA-S [Mass/Vol] 106 ug/dL 13 - 130 ug/dL [facility] Dehydroepiandrosterone sulfa meena 04-10-2024 DHEA-S [Mass/Vol] 106 ug/dL Normal 13-130 [facility] Comment on above: Order Comment: [facility]FER[facility] RANGES: PUBERTAL (CHELSEA) STAGE MALE FEMALE [...] By: #### 2 191-5 #### IDANIA Alexandre ([id number]) [facility] ([facility]) [id number] [place] [address] Dexamethasoneon 04-10-2024 Dexamethasone [Mass/Vol] <50.[address] [facility] Comment [...] developed and its performance characteristics determined by [employer]. It has not been cleared or approved by the US Food and Drug Administration. This test was performed in a CLIA certified laboratory and is intended for clinical purposes. Performed By: [employer] [address] [place] [address] Credit Balance Specialist: Geronimo Gomez MD, PhD CLIA Number: [id number] Performed By: #### 1 4062-4 #### [facility] ([id number]) [address] [place] [address] Free T4 [Mass/Vol]on 024 Interpretation and review of laboratory results Normal [facility] Thyroxine Free testi ng is performed using different testing methodology at [facility] than at other [facility]. Direct result comparisons should only be made within the same method. [facility] HbA1c (Bld) [Mass fraction]o n 04-10-2024 Average glucose Estimated from glycated hemoglobin (Bld) [Mass/Vol] 123 mg/dL Not Established [facility] Interpretation and review of laboratory results Abnormal [facility] Diagnosis of Diabetes-Adults Non-Diabetic: < or = 5.6% Increased risk for developing diabetes: 5.7-6.4% Diagnostic of diabetes: > or = 6.5% [facility] Average glucose Estimated from glycated hemoglobin (Bld) [Mass/Vol] 123 mg/dL Normal Not Established [facility] Comment on above: Order Comment: Diagn osis of Diabetes-Adults Non-Diabetic: < or = 5.6% Increased risk for developing diabetes: 5.7-6.4% Diagnostic of diabetes: > or = 6.5% Performed By: #### 4 548-4 #### IDANIA Alexandre ([id number]) [facility] ([facility]) [address] [place] [address] Hemoglobin A1Con 04-10-2024 HbA1c (Bld) [Mass fraction] 5.9 % High See comment [facility] Hemoglobin A1c/Hemoglobin.to magdiel 04-10-2024 HbA1c (Bld) [Mass fraction] 5.9 % High See comment [facility] Comment on above: Order Comment: Diagn osis of Diabetes-Adults Non-Diabetic: < or = 5.6% Increased risk for developing diabetes: 5.7-6.4% Diagnostic of diabetes: > or = 6.5% Performed By: #### 4 548-4 #### IDANIA Alexandre ([id number]) [facility] ([facility]) [address] [place] [address] METANEPHRINES PLASMAon 04-10 Annotation comment [Interpretation] Narrative See Note Normal [facility] Comment [...] developed and its performance characteristics determined by [employer]. It has not been cleared or approved by the US Food and Drug Administration. This test was performed in a CLIA certified laboratory and is intended for clinical purposes. Performed By: [employer] [address] [place] [address] Credit Balance Specialist: Geronimo Gomez MD, PhD CLIA Number: [id number] Performed By: #### M ETPL #### [facility] ([facility] MM[facility]) ([id number]) [address] [place] [address] Metanephrines [Moles/Vol] <0.10 Normal 0.00-0.[address] [facility] Comment on above: Performed By: #### M ETPL #### [facility] ([facility]) ([id number]) [address] [place] [address] Normetanephrine Free [Moles/Vol] 0.51 nmol/L Normal 0.00-0.[address] [facility] Comment on above: Performed By: #### M ETPL #### [facility] ([facility]) ([id number]) [address] [place] [address] No Panel Informationon 04-10 Interpretation and review of laboratory results Normal [facility] Renal function 2000 panelon 04-10-2024 Albumin BCP dye [Mass/Vol] 4.3 g/dL 3.4 - 5.0 g/dL [facility] Anion gap [Moles/Vol] 14 mmol/L 10 - 2 0 mmol/L [facility] Calcium [Mass/Vol] 9.7 mg/dL 8.6 - 10. 6 mg/dL [facility] Chloride [Moles/Vol] 102 mmol/L 98 - 10 7 mmol/L [facility] CO2 [Moles/Vol] 28 mmol/L 21 - 32 mmol/L [facility] Creatinine [Mass/Vol] 0.67 mg/dL 0.50 - 1.05 mg/dL [facility] eGFR - PINF [facility] Comment on above: Calculations of huang mated GFR are performed using the 2020 CKD-EPI Study Refit equation without the race variable for the IDMS-Traceable creatinine methods. https://jasn.asnjournals.org/content/early//ASN.2020 465829 Glucose [Mass/Vol] 101 mg/dL High 74 - 99 mg/dL [facility] Interpretation and review of laboratory results Abnormal [facility] Phosphate [Mass/Vol] 3.9 mg/dL 2.5 - 4 .9 mg/dL [facility] Comment on above: The performance shanna acteristics of phosphorus testing in heparinized plasma have been validated by the individual laboratory site where testing is performed. Testing on heparinized plasma is not approved by the FDA; however, such approval is not necessary. Potassium [Moles/Vol] 4.4 mmol/L 3.5 - 5.3 mmol/L [facility] Sodium [Moles/Vol] 140 mmol/L 136 - 145 mmol/L [facility] Urea nitrogen [Mass/Vol] 12 mg/dL 6 - 23 mg/dL [facility] Albumin BCP dye [Mass/Vol] 4.3 g/dL Normal 3.4-5.[address] [facility] Comment on above: Performed By: #### 2 4362-6 #### IDANIA Alexandre ([id number]) [facility] ([facility]) [id number] [place] [address] Anion gap [Moles/Vol] 14 mmol/L Normal 10-20 [facility] Comment on above: Performed By: #### 2 4362-6 #### IDANIA Alexandre ([id number]) [facility] ([facility]) [address] [place] [address] Calcium [Mass/Vol] 9.7 mg/dL Normal 8.6-10.6 [facility] Comment on above: Performed By: #### 2 4362-6 #### IDANIA Alexandre ([id number]) [facility] ([facility]) [id number] [place] [address] Chloride [Moles/Vol] 102 mmol/L Normal 98-107 [facility] Comment on above: Performed By: #### 2 4362-6 #### IDANIA Alexandre ([id number]) [facility] ([facility]) [address] [place] [address] CO2 [Moles/Vol] 28 mmol/L Normal 21-32 [facility] Comment on above: Performed By: #### 2 4362-6 #### IDANIA Alexandre ([id number]) [facility] ([facility]) [address] [place] [address] Creatinine [Mass/Vol] 0.67 mg/dL Normal 0.50-1.05 [facility] Comment on above: Performed By: #### 2 4362-6 #### IDANIA Alexandre ([id number]) [facility] ([facility]) [address] [place] [address] GFR/1.73 sq M.predicted MDRD (S/P/Bld) [Vol rate/Area] mL/min/{1.73_m2} Normal >[address] [facility] Comment on above: Result Comment: Calc ulations of estimated GFR are performed using the 2020 CKD-EPI Study Refit equation without the race variable for the IDMS-Traceable creatinine methods. https://jasn.asnjournals.org/content/early//ASN.2020 808073 Performed By: #### 2 4362-6 #### IDANIA Alexandre ([id number]) [facility] ([facility]) [address] [place] [address] Glucose [Mass/Vol] 101 mg/dL High 74-99 [facility] Comment on above: Performed By: #### 2 4362-6 #### IDANIA Alexandre ([id number]) [facility] ([facility]) [address] [place] [address] Phosphate [Mass/Vol] 3.9 mg/dL Normal 2.5-4.9 [facility] Comment on above: Result Comment: The performance characteristics of phosphorus testing in heparinized plasma have been validated by the individual laboratory site where testing is performed. Testing on heparinized plasma is not approved by the FDA; however, such approval is not necessary. Performed By: #### 2 4362-6 #### IDANIA Alexandre ([id number]) [facility] ([facility]) [address] [place] [address] Potassium [Moles/Vol] 4.4 mmol/L Normal 3.5-5.3 [facility] Comment on above: Performed By: #### 2 4362-6 #### IDANIA Alexandre ([id number]) [facility] ([facility]) [address] [place] [address] Sodium [Moles/Vol] 140 mmol/L Normal 136-145 [facility] Comment on above: Performed By: #### 2 4362-6 #### IDANIA Alexandre ([id number]) [facility] ([facility]) [address] [place] [address] Urea nitrogen [Mass/Vol] 12 mg/dL Normal 6-[address] [facility] Comment on above: Performed By: #### 2 4362-6 #### IDANIA Alexandre ([id number]) [facility] ([facility]) [address] [place] [address] TPO Ab Qnon 04-10-2024 Interpretation and review of laboratory results Abnormal [facility] Negative: <=60 U/mL Positive: >60 U/mL [facility] TSH Qnon 04-10-2024 TSH testing is perfo rmed using different testing methodology at [facility] than at other [facility]. Direct result comparisons should only be made within the same method. [facility] Thyroid Peroxidase (TPO) Ant ibodyon 04-10-2024 TPO Ab Qn 275 [IU]/mL High NINF [facility] Thyroid Stimulating Hormoneo n 04-10-2024 TSH Qn 3.61 m[IU]/L [facility] Thyroperoxidase Abon 024 TPO Ab Qn 275 [IU]/mL High <=[address] [facility] Comment on above: Order Comment: Negat dorothy: <=60 U/mL Positive: >60 U/mL Performed By: #### 8 099-4 #### IDANIA Alexandre ([id number]) [facility] ([facility]) [address] [place] [address] Thyrotropinon 04-10-2024 TSH Qn 3.61 m[IU]/L Normal 0.44-3.[address] [facility] Comment on above: Order Comment: TSH t esting is performed using different testing methodology at [facility] than at other [facility]. Direct result comparisons should only be made within the same method. Performed By: #### 3 016-3 #### IDANIA Alexandre ([id number]) [facility] ([facility]) [address] [place] [address] Thyroxine, Freeon 04-10-2024 Free T4 [Mass/Vol] 1.46 ng/dL 0.78 - 1. 48 ng/dL [facility] Thyroxine.freeon 04-10-2024 Free T4 [Mass/Vol] 1.46 ng/dL Normal 0.78-1.48 [facility] Comment on above: Order Comment: Thyro xine Free testing is performed using different testing methodology at [facility] than at other [facility]. Direct result comparisons should only be made within the same method. Performed By: #### 3 024-7 #### IDANIA Alexandre ([id number]) [facility] ([facility]) [address] [place], [place] [id number] Laboratory - Hematology and Cell countson 02-14-2024 HbA1c (Bld) [Mass fraction] 5.9 % [facility] No Panel Informationon 02-13 [facility] Creatinine [Mass/volume] in UrineOrdered By: Lilliam Montejo on 10-19-2023 Creatinine (U) [Mass/Vol] 162.00 mg/dL [facility] Comment on above: No reference range e stablished HbA1c HPLC (Bld) [Mass fract ion]on 10-19-2023 HbA1c (Bld) [Mass fraction] 6.0 % [facility] Microalbumin [Mass/volume] i n UrineOrdered By: Lilliam Montejo on 10-19-2023 Albumin DL <= 20 mg/L (U) [Mass/Vol] 0.7 mg/dL 0.0-1.8 [facility] No Panel Informationon 10-18 Bedside Glucose 98 [facility] Urine microalbumin/creatinin e mass ratioOrdered By: Lilliam Montejo on 10-19-2023 Albumin/Creatinine DL <= 20 mg/L (U) [Mass ratio] 4.3 mg/g 0.0-30.0 [facility] Comment on above: 30-300 mg/g indicate s an increased risk for diabetic nephropathy. Greater than 300 mg/g is consistent with clinical nephropathy. (Am. J. Kidney Disease 1995, 25:107) No Panel InformationOrdered By: Maricel Jones on 10-05-2023 Quick Strep (POC) [facility] Activated partial thrombopla stin time (aPTT) in platelet poor plasma by coagulation aOrdered By: Serg Boucher on 08-06-2023 aPTT Coag (PPP) [Time] 27.8 s 25.1-36.5 [facility] Comment on above: A hematocrit value g reater than 55% may lead to inaccurate results in coagulation testing. Patients having hematocrit values >55% require a special collection tube for coagulation studies. Please contact the laboratory at [phone] for redraw instructions. Basophils Auto (Bld) [#/Vol] Ordered By: Serg Boucher on 08-06-2023 Basophils (Bld) [#/Vol] 0.1 10*3/uL 0.0-0.2 [facility] Basophils/100 WBC Auto (Bld) Ordered By: Serg Boucher on 08-06-2023 Basophils/100 WBC (Bld) 1.1 % . [facility] Calcium [Mass/volume] in Ser um or PlasmaOrdered By: Serg Boucher on 08-06-2023 Calcium [Mass/Vol] 8.7 mg/dL 8.6-10.3 [facility] Carbon dioxide, total [Moles /volume] in Serum or PlasmaOrdered By: Serg Boucher on 08-06-2023 CO2 [Moles/Vol] 26.4 mmol/L 21.0-31.0 [facility] Chloride [Moles/volume] in S julieth or PlasmaOrdered By: Sreg Boucher on 08-06-2023 Chloride [Moles/Vol] 106 mmol/L 98-107 [facility] Creatine kinase [Enzymatic a ctivity/volume] in Serum or PlasmaOrdered By: Serg Boucher on 08-06-2023 CK [Catalytic activity/Vol] 91 U/L 30-223 [facility] Creatinine [Mass/volume] in Serum or PlasmaOrdered By: Serg Boucher on 08-06-2023 Creatinine [Mass/Vol] 0.67 mg/dL 0.60-1.20 [facility] Eosinophils Auto (Bld) [#/Vo l]Ordered By: Serg Boucher on 08-06-2023 Eosinophils (Bld) [#/Vol] 0.1 10*3/uL 0.0-0.45 [facility] Eosinophils/100 WBC Auto (Bl d)Ordered By: Serg Boucher on 08-06-2023 Eosinophils/100 WBC (Bld) 1.0 % . [facility] Erythrocyte distribution wid th Auto (RBC) [Ratio]Ordered By: Serg Boucher on 08-06-2023 Erythrocyte distribution width (RBC) [Ratio] 14.6 % 11.9-15.3 [facility] Glucose [Mass/volume] in Ser um or PlasmaOrdered By: Serg Boucher on 08-06-2023 Glucose [Mass/Vol] 111 mg/dL 70-100 [facility] Comment on above: ADA recommended refe rence rangeRandom Glucose Reference Range is dependent on time and content of last meal. Glucose of more than 200 mg/dL in a nonstressed, ambulatory subject supports the diagnosis of Diabetes Mellitus. Hematocrit Auto (Bld) [Volum e fraction]Ordered By: Serg Boucher on 08-06-2023 Hematocrit (Bld) [Volume fraction] 33.0 % 34.0-46.4 [facility] Hemoglobin [Mass/volume] in BloodOrdered By: Serg Boucher on 08-06-2023 Hemoglobin (Bld) [Mass/Vol] 10.7 g/dL 11.8-15.4 [facility] INR in Platelet poor plasma by Coagulation assayOrdered By: Serg Boucher on 08-06-2023 INR Coag (PPP) [Relative time] 1.0 {INR} [facility] Comment on above: INR Therapeutic Rang e [...] RBC Auto (Bld) [#/Vol] 11.6 10*3/uL 3.8-11.6 [facility] Lymphocytes Auto (Bld) [#/Vo l]Ordered By: Serg Boucher on 08-06-2023 Lymphocytes (Bld) [#/Vol] 1.9 10*3/uL 1.00-4.8 [facility] Lymphocytes/100 WBC Auto (Bl d)Ordered By: Serg Boucher on 08-06-2023 Lymphocytes/100 WBC (Bld) 16.6 % . [facility] MCH Auto (RBC) [Entitic mass ]Ordered By: Serg Boucher on 08-06-2023 MCH (RBC) [Entitic mass] 29.2 pg 24.7-34.3 [facility] MCHC Auto (RBC) [Mass/Vol]Or dered By: Serg Boucher on 08-06-2023 MCHC (RBC) [Mass/Vol] 32.5 g/dL 32.0-35.[address] [facility] MCV Auto (RBC) [Entitic vol] Ordered By: Serg Boucher on 08-06-2023 MCV (RBC) [Entitic vol] 89.6 fL 80-100 [facility] Monocyte distribution width [Entitic volume] in Blood by AutomatedOrdered By: Serg Boucher on 08-06-2023 Monocyte distribution width Auto (Bld) [Entitic vol] 15.33 % 0.00-20.00 [facility] Monocytes Auto (Bld) [#/Vol] Ordered By: Serg Boucher on 08-06-2023 Monocytes (Bld) [#/Vol] 0.8 10*3/uL 0.0-0.8 [facility] Monocytes/100 WBC Auto (Bld) Ordered By: Serg Boucher on 08-06-2023 Monocytes/100 WBC (Bld) 6.7 % . [facility] Natriuretic peptide B [Mass/ Vol]Ordered By: Serg Boucher on 08-06-2023 Natriuretic peptide B (Bld) [Mass/Vol] 38.0 pg/mL 5-100 [facility] Neutrophils Auto (Bld) [#/Vo l]Ordered By: Serg Boucher on 08-06-2023 Neutrophils (Bld) [#/Vol] 8.7 10*3/uL 1.8-7.7 [facility] Neutrophils/100 WBC Auto (Bl d)Ordered By: Serg Boucher on 08-06-2023 Neutrophils/100 WBC (Bld) 74.6 % . [facility] No Panel InformationOrdered By: Serg Boucher on 08-06-2023 Estimated GFR (CKD-EPI) > 60.0 mL/Min [facility] Creatinine Clearance (Chem 88.45 [facility] Nucleated erythrocytes [Pres ence] in Blood by Automated countOrdered By: Serg Boucher on 08-06-2023 Nucleated RBC Auto Ql (Bld) 0.1 /100{WBC} 0-0.5 [facility] Platelet mean volume Auto (B ld) [Entitic vol]Ordered By: Serg Boucher on 08-06-2023 Platelet mean volume (Bld) [Entitic vol] 7.7 fL 6.3-10.7 [facility] Platelets Auto (Bld) [#/Vol] Ordered By: Serg Boucher on 08-06-2023 Platelets (Bld) [#/Vol] 322 10*3/uL 150-450 [facility] Potassium [Moles/volume] in Serum or PlasmaOrdered By: Serg Boucher on 08-06-2023 Potassium [Moles/Vol] 3.9 mmol/L 3.5-5.1 [facility] Prothrombin time (PT)Ordered By: Serg Boucher on 08-06-2023 PT Coag (PPP) [Time] 11.4 s 9.0-12.9 [facility] Comment on above: A hematocrit value g reater than 55% may lead to inaccurate results in coagulation testing. Patients having hematocrit values >55% require a special collection tube for coagulation studies. Please contact the laboratory at [phone] for redraw instructions. RBC Auto (Bld) [#/Vol]Ordere d By: Serg Boucher on 08-06-2023 RBC (Bld) [#/Vol] 3.68 10*6/uL 3.60-5.00 [facility] Serum or plasma anion gap de terminationOrdered By: Serg Boucher on 08-06-2023 Anion gap [Moles/Vol] 7.5 mmol/L 6.0-15.0 [facility] Sodium [Moles/volume] in Ser um or PlasmaOrdered By: Serg Boucher on 08-06-2023 Sodium [Moles/Vol] 136 mmol/L 136-145 [facility] Troponin I.cardiac [Mass/vol ume] in Serum or Plasma by Detection limit <= 0.01 ng/Ordered By: Serg Boucher on 08-06-2023 Troponin I.cardiac DL <= 0.01 ng/mL [Mass/Vol] 3.0 pg/mL 0.0-15.0 [facility] Urea nitrogen [Mass/volume] in Serum or PlasmaOrdered By: Serg Boucher on 08-06-2023 Urea nitrogen [Mass/Vol] 11 mg/dL 7-25 [facility] WBC Auto (Bld) [#/Vol]Ordere d By: Serg Boucher on 08-06-2023 WBC (Bld) [#/Vol] 11.6 10*3/uL 3.8-11.6 [facility] Ambulatory Visit Summaryon 0 06-03-2023 Ambulatory [...] Follow-Up Appointments Tuesday 2:20 PM EST With: Mayito YANG MD Where: General Surgery Madeleine/Kendell [facility] General Surgery Office/Clini c Noteon 06-03-2023 General Surgery Office/Clinic Note Chief Complaint s/p cholecystectomy by HPI Staff Bette is a 68 y.o. female here for s/p cholecystectomy done on 05/16/[address] Yang at [facility] Patient denies excessive bleeding/pain/discharge/ fever/chills. last colonoscopy at 64 y.o. [facility] History of Present Illness Bette Villafana is a 68-year-old female status post laparoscopic cholecystectomy performed by Dr. Yang. He is out of town. I am seeing the patient as a postop visit for him. Surgery was done on 05/16/2023 for cholecystitis where she was found to have [id number] gangrenous cholecystitis. During the procedure, a drain [...] female status post laparoscopic cholecystectomy performed at [facility] by Dr. Yang for gangrenous cholecystitis. 1. 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 We will provide a note for this. Portions of this record may have been created with voice recognition artificial intelligence software, specifically [employer], [employer] and or [employer]. Substitutions may have occurred voice recognition and artificial intelligence software. Documentation services were performed after patient or guardian consented to allow [employer] to record this visit. JONAH global marketing specialist and provider reviewed before signing. JONAH: [...] Given Postpone due to refusal SARS-CoV-2 (COVID-19) [id number] 05/11/2022 Recorded SARS-CoV-2 (COVID-19) mRNA BNT-162b2 vax 04/02/2021 Recorded SARS-CoV-2 (COVID-19) mRNA BNT-162b2 vax 09/15/2020 Recorded SARS-CoV-2 (COVID-19) mRNA BNT-162b2 vax 08/25/2020 Recorded [facility] Comment on above: Result Comment: Elec tronically Signed By: Emiliano Lagos MD\.br\Date and Time Signed: 06/03/23 09:25 EST\.br\Electronically Co-Signed By: Tiana Drake\.br\Date and Time Co-Signed: 06/03/23 09:08 EST Provider Letteron 06-03-2023 Provider Letter (Inserted Image. [employer] ble to display) June 03, 2023 BETTE V[address]FANA [address] [place] [id number] : 1955 To Whom It May Concern, Please excuse above patient from work. Date of Illness: From: 05/16/2023 To: 06/18/2023 May Return to Work On: 06/18/2023 Restrictions: No restrictions Comments: _ Sincerely, Emiliano Lagos MD [facility] General Surgery [facility] Pathology Noteon 05-26-2023 Pathology Note [id number]#1.00TIF F [facility] Consultation Noteon 05-18-19 Consultation Note [id number]#1.00TIF F [facility] Consultation Note [id number]#1.00TIFF [facility] Consultation Note [id number]#1.00TIF F [facility] Lab Reportson 05-18-2023 Lab Reports [id number]#1.00TIF F [facility] Lab Reports [id number]#1.00TIFF [facility] Lab Reports [id number]#1.00TIFF [facility] Operative Reporton Operative Report [id number]#1.00TIF F [facility] Laboratory - Chemistry and C hemistry - challengeon 05-17-2023 Albumin [Mass/Vol] 2.5 g/dL [facility] ALP [Catalytic activity/Vol] 76 U/L [facility] ALT [Catalytic activity/Vol] 32 U/L [facility] AST [Catalytic activity/Vol] 32 U/L [facility] Bilirubin [Mass/Vol] 0.7 mg/dL [facility] Calcium [Mass/Vol] 8.2 mg/dL [facility] Chloride [Moles/Vol] 97 mmol/L [facility] CO2 [Moles/Vol] 31 mmol/L [facility] Creatinine [Mass/Vol] 0.70 mg/dL [facility] GFR/1.73 sq M.predicted MDRD (S/P/Bld) [Vol rate/Area] mL/min/{1.73_m2} [facility] Glucose [Mass/Vol] 148 mg/dL [facility] Potassium [Moles/Vol] 4.3 mmol/L [facility] Protein [Mass/Vol] 6.2 g/dL [facility] Sodium [Moles/Vol] 134 mmol/L [facility] Urea nitrogen [Mass/Vol] 4.0 mg/dL [facility] No Panel Informationon 05-17 Estimated GFR (Non- > 60 mL/min [facility] Laboratory - Chemistry and C hemistry - challengeon 05-16-2023 Albumin [Mass/Vol] 3.0 g/dL [facility] ALP [Catalytic activity/Vol] 78 U/L [facility] ALT [Catalytic activity/Vol] 21 U/L [facility] AST [Catalytic activity/Vol] 11 U/L [facility] Bilirubin [Mass/Vol] 1.0 mg/dL [facility] Calcium [Mass/Vol] 8.7 mg/dL [facility] Chloride [Moles/Vol] 99 mmol/L [facility] CO2 [Moles/Vol] 28.5 mmol/L [facility] Creatinine [Mass/Vol] 0.79 mg/dL [facility] GFR/1.73 sq M.predicted MDRD (S/P/Bld) [Vol rate/Area] mL/min/{1.73_m2} [facility] Glucose [Mass/Vol] 134 mg/dL [facility] Potassium [Moles/Vol] 3.8 mmol/L [facility] Protein [Mass/Vol] 6.8 g/dL [facility] Sodium [Moles/Vol] 134 mmol/L [facility] Urea nitrogen [Mass/Vol] 7.0 mg/dL [facility] No Panel Informationon 05-16 Estimated GFR (Non- > 60 mL/min [facility] GLYCOHEMOGLOBIN A1Con 2022 ADA RECOMMENDATION SEE BELOW Normal [facility] Comment on above: Result Comment: ADA RECOMMENDED LIMIT 4.0 - 6.0 ADA THERAPEUTIC TARGET < 7.0 ACTION SUGGESTED > 7.0 Performed By: #### P TT, PT #### [facility] [address] [address] [address] Vivian Fall Glucose [Mass/Vol] 120 mg/dL Normal [facility] Comment on above: Performed By: #### P TT, PT #### [facility] [address] [address] [address] Vivian Fall HbA1c (Bld) [Mass fraction] 5.8 % Normal 4.5-6.2 [facility] Comment on above: Performed By: #### P TT, PT #### [facility] [address] [address] [address] Vivian Fall LIPID PROFILEon 09-02-2022 CHOL-HDL RATIO NORM SEE BELOW Normal [facility] Comment on above: Result Comment: 3.3 - 4.4 LOW RISK 4.4 - 7.1 AVERAGE RISK 7.1 - 11.0 MODERATE RISK >11.0 HIGH RISK Performed By: #### P TT, PT #### [facility] [address] [address] [address] Vivian Fall Cholesterol [Mass/Vol] 171 mg/dL Normal <=200 Th [facility] Comment on above: Performed By: #### P TT, PT #### [facility] [address] [address] [address] Vivian Fall Cholesterol in HDL [Mass/Vol] 52 mg/dL Normal 40-60 [facility] Comment on above: Performed By: #### P TT, PT #### [facility] [address] [address] [address] Vivian Fall Cholesterol in LDL [Mass/Vol] 89.8 mg/dL Normal [facility] Comment on above: Performed By: #### P TT, PT #### [facility] [address] [address] [address] Vivian Fall Cholesterol.total/Jeannie sterol in HDL [Mass ratio] 3.3 {ratio} Normal [facility] Comment on above: Performed By: #### P TT, PT #### [facility] [address] [address] [address] Viivan Fall HDL NORMAL > or = 60 mg/dl - LO W CARDIOVASCULAR RISK <40 mg/dl - HIGH CARDIOVASCULAR RISK Normal [facility] Comment on above: Performed By: #### P TT, PT #### [facility] [address] [place] [address] Dr. Vivian Fall LDL CALC NORMAL SEE BELOW Normal [facility] Comment on above: Result Comment: <100 mg/dl OPTIMAL 100 - 129 mg/dl NEAR OR ABOVE OPTIMAL 130 - 159 mg/dl BORDERLINE HIGH 160 - 189 mg/dl HIGH >190 mg/dl VERY HIGH Performed By: #### P TT, PT #### [facility] [address] [place] [address] Dr. Vivian Fall Triglyceride [Mass/Vol] 146 mg/dL Normal <=150 T [facility] Comment on above: Performed By: #### P TT, PT #### [facility] [address] [place] [address] Dr. Vivian Fall VLDL CALC 29.2 mg/dL Normal [facility] Comment on above: Performed By: #### P TT, PT #### [facility] [address] [place] [address] Dr. Vivian Fall PROF 14(COMP METB)on 023 Albumin [Mass/Vol] 3.6 g/dL Normal 3.4-5.0 [facility] Comment on above: Performed By: #### C MP, LIPID #### [facility] [address] [place] [address] Dr. Vivian Fall Albumin/Globulin [Mass ratio] 0.9 {ratio} Normal [facility] Comment on above: Performed By: #### C MP, LIPID #### [facility] [address] [place] [address] Dr. Vivian Fall ALP [Catalytic activity/Vol] 81 U/L Normal 46-116 [facility] Comment on above: Performed By: #### C MP, LIPID #### [facility] [address] [place] [address] Dr. Vivian Fall ALT [Catalytic activity/Vol] 22 U/L Normal 14-59 [facility] Comment on above: Performed By: #### C MP, LIPID #### [facility] [address] [place] [address] Dr. Vivian Fall Anion gap [Moles/Vol] 12.5 mmol/L Normal [facility] Comment on above: Performed By: #### C MP, LIPID #### [facility] [address] [place] [address] Dr. Vivian Fall AST [Catalytic activity/Vol] 15 U/L Normal 15-37 [facility] Comment on above: Performed By: #### C MP, LIPID #### [facility] [address] [place] [address] Dr. Vivian Fall Bilirubin [Mass/Vol] 0.6 mg/dL Normal 0.2-1.0 [facility] Comment on above: Performed By: #### C MP, LIPID #### [facility] [address] [place] [address] Dr. Vivian Fall Calcium [Mass/Vol] 9.1 mg/dL Normal 8.5-10.1 [facility] Comment on above: Performed By: #### C MP, LIPID #### [facility] [address] [place] [address] Dr. Vivian Fall Chloride [Moles/Vol] 103 mmol/L Normal 98-107 [facility] Comment on above: Performed By: #### C MP, LIPID #### [facility] [address] [place] [address] Dr. Vivian Fall CO2 [Moles/Vol] 27.6 mmol/L Normal 21.0-32.0 [facility] Comment on above: Performed By: #### C MP, LIPID #### [facility] [address] [place] [address] Dr. Vivian Fall Creatinine [Mass/Vol] 0.78 mg/dL Normal 0.55-1.02 [facility] Comment on above: Performed By: #### C MP, LIPID #### [facility] [address] [place] [address] Dr. Vivian Fall EGFR-AF PORTUGUESE >60 Normal >=60 [facility] Comment on above: Performed By: #### C MP, LIPID #### [facility] [address] [place] [address] Dr. Vivian aFll EGFR-NON AF PORTUGUESE >60 Normal >=60 [facility] Comment on above: Performed By: #### C MP, LIPID #### [facility] [address] [place] [address] Dr. Vivian Fall Globulin (S) [Mass/Vol] 3.8 g/dL Normal T [facility] Comment on above: Performed By: #### C MP, LIPID #### [facility] [address] [place] [address] Dr. Vivian Fall Glucose [Mass/Vol] 105 mg/dL Normal 74-106 [facility] Comment on above: Performed By: #### C MP, LIPID #### [facility] [address] [place] [address] Dr. Vivian Fall Potassium [Moles/Vol] 4.1 mmol/L Normal 3.5-5.1 [facility] Comment on above: Performed By: #### C MP, LIPID #### [facility] [address] [place] [address] Dr. Vivian Fall Protein [Mass/Vol] 7.4 g/dL Normal 6.4-8.2 [facility] Comment on above: Performed By: #### C MP, LIPID #### [facility] [address] [place] [address] Dr. Vivian Fall Sodium [Moles/Vol] 139 mmol/L Normal 136-145 [facility] Comment on above: Performed By: #### C MP, LIPID #### [facility] [address] [place] [address] Dr. Vivian Fall Urea nitrogen [Mass/Vol] 11.0 mg/dL Normal 7.0-18.0 [facility] Comment on above: Performed By: #### C MP, LIPID #### [facility] [address] [place] [address] Dr. Vivian Fall Urea nitrogen/Creatinine [Mass ratio] 14.1 mg/mg Normal [facility] Comment on above: Performed By: #### C MP, LIPID #### [facility] [address] [place] [address] Dr. Vivian Fall VITAMIN B12on 09-02-2022 Cobalamin (Vitamin B12) [Mass/Vol] 373.0 pg/mL Normal 193.0-986.0 [facility] Comment on above: Performed By: #### P TT, PT #### [facility] [address] [place] [address] Dr. Vivian Fall VITAMIN D 25 OHon 09-02-2022 VIT D 25-OH 16.1 ng/mL Normal [facility] Comment on above: Performed By: #### P TT, PT #### [facility] [address] [place] [address] Dr. Vivian Fall VIT D RANGES SEE BELOW Normal [facility] Comment on above: Result Comment: <20 ng/mL Vit D deficient 20 - <30 ng/mL Vit D insufficient 30 - 100 ng/mL Vit D sufficient >100 ng/mL Potential Toxicity Performed By: #### P TT, PT #### [facility] [address] [place] [address] Dr. Vivian Fall BNPon 06-29-2022 Natriuretic peptide B (Bld) [Mass/Vol] 223.0 pg/mL Normal <=900.0 [facility] Comment on above: Performed By: #### C MP, HSTROPN, BNP #### [facility] [address] [place] [address] Dr. Vivian Fall CBC AUTO DIFFon 06-29-2022 BASO # 0.0 103/ul Normal 0.0-0.1 [facility] Comment on above: Performed By: #### C BC #### [facility] [address] [place] [address] Dr. Vivian Fall Basophils/100 WBC (Bld) 0.2 % Normal 0.2-2.0 [facility] Comment on above: Performed By: #### C BC #### [facility] [address] [place] [address] Dr. Vivian Fall EO # 0.0 103/ul Normal 0.0-0.7 [facility] Comment on above: Performed By: #### C BC #### [facility] [address] [place] [address] Dr. Vivian Fall Eosinophils/100 WBC (Bld) 0.0 % Critically low 0.9-7.0 [facility] Comment on above: Performed By: #### C BC #### [facility] [address] [place] [address] Dr. Vivian Fall Erythrocyte distribution width (RBC) [Ratio] 13.0 % Normal 11.0-15.0 [facility] Comment on above: Performed By: #### C BC #### [facility] [address] [place] [address] Dr. Vivian Fall Hematocrit (Bld) [Volume fraction] 36.2 % Normal 36.0-48.0 [facility] Comment on above: Performed By: #### C BC #### [facility] [address] [place] [address] Dr. Vivian Fall Hemoglobin (Bld) [Mass/Vol] 12.2 g/dL Normal 12.0-16.0 [facility] Comment on above: Performed By: #### C BC #### [facility] [address] [place] [address] Dr. Vivian Fall IG # 0.08 10e3/ul Critically high 0.00-0.03 [facility] Comment on above: Performed By: #### C BC #### [facility] [address] [place] [address] Dr. Vivian Fall IG % 1.3 % Critically high 0.0-0.5 [facility] Comment on above: Performed By: #### C BC #### [facility] [address] [place] [address] Dr. Vivian Fall LYMPH # 0.3 103/ul Critically low 1.2-3.8 [facility] Comment on above: Performed By: #### C BC #### [facility] [address] [place] [address] Dr. Vivian Fall Lymphocytes/100 WBC (Bld) 4.2 % Critically low 20.5-60.0 [facility] Comment on above: Performed By: #### C BC #### [facility] [address] [place] [address] Dr. Vivian Fall MANUAL DIFF REQ NO Normal [facility] Comment on above: Performed By: #### C BC #### [facility] [address] [place] [address] Dr. Vivian Fall MCH (RBC) [Entitic mass] 29.2 pg Normal 26.7-34.0 [facility] Comment on above: Performed By: #### C BC #### [facility] [address] [place] [address] Dr. Vivian Fall MCHC (RBC) [Mass/Vol] 33.7 g/dL Normal 29.9-35.2 [facility] Comment on above: Performed By: #### C BC #### [facility] [address] [place] [address] Dr. Vivian Fall MCV (RBC) [Entitic vol] 86.6 fL Normal 81.0-99.0 [facility] Comment on above: Performed By: #### C BC #### [facility] [address] [place] [address] Dr. Vivian Fall MONO # 0.2 103/ul Critically low 0.3-0.8 [facility] Comment on above: Performed By: #### C BC #### [facility] [address] [place] [address] Dr. Vivian Fall Monocytes/100 WBC (Bld) 3.5 % Normal 1.7-12.0 [facility] Comment on above: Performed By: #### C BC #### [facility] [address] [place] [address] Dr. Vivian Fall NEUT # 5.7 103/ul Normal 1.4-6.5 [facility] Comment on above: Performed By: #### C BC #### [facility] [address] [place] [address] Dr. Vivian Fall Neutrophils/100 WBC (Bld) 90.8 % Critically high 43.0-75.0 [facility] Comment on above: Performed By: #### C BC #### [facility] [address] [place] [address] Dr. Vivian Fall Platelet mean volume (Bld) [Entitic vol] 9.8 fL Normal 9.5-13.5 [facility] Comment on above: Performed By: #### C BC #### [facility] [address] [address] [address] Vivian Fall PLT 224 103/ul Normal 150-450 [facility] Comment on above: Performed By: #### C BC #### [facility] [address] [address] [address] Vivian Fall RBC 4.18 106/ul Critically low 4.20-5.40 [facility] Comment on above: Performed By: #### C BC #### [facility] [address] [address] [address] Vivian Fall WBC 6.3 103/ul Normal 4.0-11.0 [facility] Comment on above: Performed By: #### C BC #### [facility] [address] [place] [address] ABD/PELVIS WO CONon [...] ANASTACIO BARBOZA Date: 2022-06-29 11:26 Normal [facility] CULTURE BLOODon 06-29-2022 Microscopic examination of blood, culture Culture Observations: NO GROWTH AT 5 DAYS. Isolate 1 BC_BA_NA Normal [facility] Comment on above: Performed By: #### P TT, PT #### [facility] [address] [address] [address] Vivian Fall Microscopic examination of blood, culture Culture Observations: NO GROWTH AT 5 DAYS. Isolate 1 BC_BA_NA Normal [facility] Comment on above: Performed By: #### P TT, PT #### [facility] [address] [address] [address] Vivian Fall CULTURE URINEon 06-29-2022 CULTURE URINE Culture Observations : NO GROWTH. Normal [facility] Comment on above: Performed By: #### P TT, PT #### [facility] [address] [place] [address] Dr. Vivian Fall Covid-19 PCR (CVDTB)on 06-03 SARS-CoV-2 (COVID-19) RNA JONY+probe Ql (Unsp spec) Not detected Normal NOT DETECTED [facility] Comment on above: Result Comment: When [...] for this test is supported by the Purchasing [employer] of Health and Human Service's declaration that [...] used). Performed By: #### C VDTBH #### [facility] [address] [place] [address] Dr. Vivian Fall ER URINE PROFILEon 3 Bilirubin Ql (U) SMALL Abnormal NEGATIVE [facility] Comment on above: Performed By: #### P TT, PT #### [facility] [address] [place] [address] Dr. Vivian Fall Clarity (U) CLEAR Normal CLEAR [facility] Comment on above: Performed By: #### P TT, PT #### [facility] [address] [place] [address] Dr. Vivian Fall Color (U) DK. YELLOW Normal YELLOW [facility] Comment on above: Performed By: #### P TT, PT #### [facility] [address] [place] [address] Dr. Vivian Fall ERUAHD A micrscopic examina tion will be performed if indicated. Normal [facility] Comment on above: Performed By: #### P TT, PT #### [facility] [address] [place] [address] Dr. Vivian Fall Glucose Ql (U) Negative Normal NEGATIVE [facility] Comment on above: Performed By: #### P TT, PT #### [facility] [address] [place] [address] Dr. Vivian Fall Hemoglobin Ql (U) TRACE-INTACT Abnormal NEGATIVE [facility] Comment on above: Performed By: #### P TT, PT #### [facility] [address] [place] [address] Dr. Vivian Fall Ketones Ql (U) Negative Normal NEGATIVE [facility] Comment on above: Performed By: #### P TT, PT #### [facility] [address] [place] [address] Dr. Vivian Fall LEUKOCYTES Negative Normal NEGATIVE [facility] Comment on above: Performed By: #### P TT, PT #### [facility] [address] [place] [address] Dr. Vivian Fall Nitrite Ql (U) Negative Normal NEGATIVE [facility] Comment on above: Performed By: #### P TT, PT #### [facility] [address] [place] [address] Dr. Vivian Fall pH (U) 6.0 [pH] Normal 5-9 [facility] Comment on above: Performed By: #### P TT, PT #### [facility] [address] [place] [address] Dr. Vivian Fall Protein (U) [Mass/Vol] 100 mg/dL Abnormal NEGAT DOROTHY/ TRACE [facility] Comment on above: Performed By: #### P TT, PT #### [facility] [address] [place] [address] Dr. Vivian Fall SPEC GRAVITY >=1.030 Abnormal 1.005-<=1.02 5 [facility] Comment on above: Performed By: #### P TT, PT #### [facility] [address] [place] [address] Dr. Vivian Fall UR MICRO IND INDICATED Normal [facility] Comment on above: Performed By: #### P TT, PT #### [facility] [address] [place] [address] Dr. Vivian Fall Urobilinogen Qn (U) 1.0 {Nia'U}/dL Normal 0.2 - 1. 0 [facility] Comment on above: Performed By: #### P TT, PT #### [facility] [address] [place] [address] Dr. Vivian Fall LACTATE/LACTIC ACIDon 2022 Lactate [Moles/Vol] 1.3 mmol/L Normal 0.4-1.9 [facility] Comment on above: Performed By: #### L ACT #### [facility] [address] [place] [address] Dr. Vivian Fall Lactate [Moles/Vol] 3.1 mmol/L Critically high 0.4-1.9 [facility] Comment on above: Performed By: #### L ACT #### [facility] [address] [place] [address] Dr. Vivian Fall LIPASEon 06-29-2022 Lipase [Catalytic activity/Vol] 88.0 U/L Normal 73.0-393.0 [facility] Comment on above: Performed By: #### L IPA #### [facility] [address] [place] [address] Dr. Vivian Fall PROF 14(COMP METB)on 023 Albumin [Mass/Vol] 3.4 g/dL Normal 3.4-5.0 [facility] Comment on above: Performed By: #### C MP, HSTROPN, BNP #### [facility] [address] [place] [address] Dr. Vivian Fall Albumin/Globulin [Mass ratio] 0.9 {ratio} Normal [facility] Comment on above: Performed By: #### C MP, HSTROPN, BNP #### [facility] [address] [place] [address] Dr. Vivian Fall ALP [Catalytic activity/Vol] 145 U/L Critically high 46-116 [facility] Comment on above: Performed By: #### C MP, HSTROPN, BNP #### [facility] [address] [address] [address] Vivian Fall ALT [Catalytic activity/Vol] 454 U/L Critically high 14-59 [facility] Comment on above: Performed By: #### C MP, HSTROPN, BNP #### [facility] [address] [place] [address] Dr. Vivian Fall Anion gap [Moles/Vol] 15.7 mmol/L Normal [facility] Comment on above: Performed By: #### C MP, HSTROPN, BNP #### [facility] [address] [place] [address] Dr. Vivian Fall AST [Catalytic activity/Vol] 404 U/L Critically high 15-37 [facility] Comment on above: Performed By: #### C MP, HSTROPN, BNP #### [facility] [address] [place] [address] Dr. Vivian Fall Bilirubin [Mass/Vol] 1.4 mg/dL Critically high 0.2-1.0 [facility] Comment on above: Performed By: #### C MP, HSTROPN, BNP #### [facility] [address] [place] [address] Dr. Vivian Fall Calcium [Mass/Vol] 8.7 mg/dL Normal 8.5-10.1 [facility] Comment on above: Performed By: #### C MP, HSTROPN, BNP #### [facility] [address] [place] [address] Dr. Vivian Fall Chloride [Moles/Vol] 94 mmol/L Critically low 98-107 [facility] Comment on above: Performed By: #### C MP, HSTROPN, BNP #### [facility] [address] [place] [address] Dr. Vivian Fall CO2 [Moles/Vol] 22.0 mmol/L Normal 21.0-32.0 [facility] Comment on above: Performed By: #### C MP, HSTROPN, BNP #### [facility] [address] [place] [address] Dr. Vivian Fall Creatinine [Mass/Vol] 1.30 mg/dL Critically high 0.55-1.02 [facility] Comment on above: Performed By: #### C MP, HSTROPN, BNP #### [facility] [address] [place] [address] Dr. Vivian Fall EGFR-AF PORTUGUESE 50 mL/min/1.73m2 Critically low >=60 [facility] Comment on above: Performed By: #### C MP, HSTROPN, BNP #### [facility] [address] [place] [address] Dr. Vivian Fall EGFR-NON AF [place]UGUESE 41 mL/min/1.73m2 Critically low >=60 [facility] Comment on above: Performed By: #### C MP, HSTROPN, BNP #### [facility] [address] [place] [address] Dr. Vivian Fall Globulin (S) [Mass/Vol] 3.7 g/dL Normal [facility] Comment on above: Performed By: #### C MP, HSTROPN, BNP #### [facility] [address] [place] [address] Dr. Vivian Fall Glucose [Mass/Vol] 166 mg/dL Critically high 74-106 [facility] Comment on above: Performed By: #### C MP, HSTROPN, BNP #### [facility] [address] [place] [address] Dr. Vivian Fall Potassium [Moles/Vol] 3.7 mmol/L Normal 3.5-5.1 [facility] Comment on above: Performed By: #### C MP, HSTROPN, BNP #### [facility] [address] [place] [address] Dr. Vivian Fall Protein [Mass/Vol] 7.1 g/dL Normal 6.4-8.2 [facility] Comment on above: Performed By: #### C MP, HSTROPN, BNP #### [facility] [address] [place] [address] Dr. Vivian Fall Sodium [Moles/Vol] 128 mmol/L Critically low 136-145 Th [facility] Comment on above: Performed By: #### C DEVI BANDATROPN, BNP #### [facility] [address] [place] [address] Dr. Vivian Fall Urea nitrogen [Mass/Vol] 15.0 mg/dL Normal 7.0-18.0 [facility] Comment on above: Performed By: #### C VERONIKA HSTROPN, BNP #### [facility] [address] [place] [address] Dr. Vivian Fall Urea nitrogen/Creatinine [Mass ratio] 11.5 mg/mg Normal [facility] Comment on above: Performed By: #### C DEVI BANDATRFROYLAN, BNP #### [facility] [address] [place] [address] Dr. Vivian Fall PROTIMEon 06-29-2022 INR Coag (PPP) [Relative time] 1.08 {INR} Normal [facility] Comment on above: Performed By: #### P TT, PT #### [facility] [address] [place] [address] Dr. Vivian Fall INR GUIDELINES SEE BELOW Normal [facility] Comment on above: Result Comment: DEEJAY RED INR: 2.0 - 3.0 CONDITIONS NOT LISTED BELOW 2.5 - 3.5 FOR PROSTHETIC HEART VALVE REPLACEMENT 2.5 - 3.5 RECURRENT THROMBOSIS Performed By: #### P TT, PT #### [facility] [address] [place] [address] Dr. Vivian Fall PT Coag (PPP) [Time] 11.4 s Normal 9.0-11.6 [facility] Comment on above: Performed By: #### P TT, PT #### [facility] [address] [place] [address] Dr. Vivian Fall PTTon 06-29-2022 aPTT Coag (Bld) [Time] 32.2 s Normal 22.3-36.2 Th [facility] Comment on above: Performed By: #### P TT, PT #### [facility] [address] [place] [address] Dr. Vivian Fall TROPONIN, HIGH SENSITIVITYon 06-29-2022 HSTROP 5.8 pg/mL Normal 4.0-51.3 [facility] Comment on above: Result Comment: CUT- OFF POINTS HAVE BEEN ESTABLISHED BASED ON THE FOURTH UNIVERSAL DEFINITIONS OF MYOCARDIAL INFARCTION. THE UPPER REFERENCE LIMIT (URL) OF TROPONIN, DEFINED THE 99TH PERCENTILE OF cTnI DISTRIBUTION IN A REFERENCE POPULATION, HAS BEEN CONFIRMED THE DECISION THRESHOLD FOR GA DIAGNOSIS. Performed By: #### C MP, HSTROPN, BNP #### [facility] [address] [place] [address] Dr. Vivian Fall URINE MICROSCOPIC ONLYon BACTERIA SMALL Abnormal NONE SEEN [facility] Comment on above: Performed By: #### P TT, PT #### [facility] [address] [place] [address] Dr. Vivian Fall Bacteria identified Cx Nom (U) INDICATED Normal [facility] Comment on above: Performed By: #### P TT, PT #### [facility] [address] [place] [address] Dr. Vivian Fall CAST NONE SEEN Normal NONE SEEN [facility] Comment on above: Performed By: #### P TT, PT #### [facility] [address] [place] [address] Dr. Vivian Fall Crystals LM Nom (Urine sed) NONE SEEN Normal NONE SEEN [facility] Comment on above: Performed By: #### P TT, PT #### [facility] [address] [place] [address] Dr. Vivian Fall Epithelial cells LM Ql (Urine sed) FEW Abnormal NONE SEEN /RARE [facility] Comment on above: Performed By: #### P TT, PT #### [facility] [address] [place] [address] Dr. Vivian Fall MUCOUS SMALL Abnormal NONE SEEN [facility] Comment on above: Performed By: #### P TT, PT #### [facility] [address] [place] [address] Dr. Vivian Fall RBC 0-2 Normal 0-2 [facility] Comment on above: Performed By: #### P TT, PT #### [facility] [address], [place] [address] Dr. Vivian Fall WBC 0-2 Abnormal NONE SEEN [facility] Comment on above: Performed By: #### P TT, PT #### [facility] [address] [place], [place] [address] Dr. Vivian Fall XR CHEST 1 Von 06-29-2022 XR CHEST 1 V EXAM: XR CHEST 1 V HISTORY: Altered mental status COMPARISON: None. TECHNIQUE: Frontal view of the chest. FINDINGS: No focal consolidations or pleural effusions. Cardiomegaly. Thoracic spine spondylosis. IMPRESSION: No acute disease. Cardiomegaly. Electronically authenticated by: ZEYAD SOFIA Date: 2022-06-29 10:38 Normal [facility] Office Visit (Cardiology)on 06-01-2022 Follow-up visit [...] Social H (more content not included)... Normal [facility] Tobacco Screening.on 023 Adult depression screening assessment No [facility] Work Phone: Fall risk assessment a) No falls within the last year [facility] Work Phone: Tobacco use status [facility] b) No [facility] DO Work Phone: ECHOCARDIO M/2D COMPLETEon 0 05-11-2022 ECHOCARDIO M/2D COMPLETE Patient: BETTE VILLAFANA Exam Date: 05/11/2022 : 1955 Gender:F Ordering : DR ZULMA MOE PA Admission #: [id number] Family : Order #: [id number] CLICK HERE TO VIEW EXAM ECHOCARDIOGRAM REPORT [...] M.D. on 05/13/2022 at 10:52 Normal [facility] MAMM SCREEN 3D ALFA CADon 05-11-2022 MG MAMM SCREEN 3D ALFA CAD Patient: BETTE VILLAFANA Exam Date: 05/11/2022 : 1955 Gender:F Ordering : DR ZULMA SINGH Admission #: [id number] Family : Order #: [id number] CLICK HERE TO VIEW EXAM RADIOLOGY REPORT [...] kidney cancer at age 52. LOCATION: [facility] BREAST COMPOSITION: Almost entirely fatty. FINDINGS: [...] M.D. on 05/11/2022 at 14:26 Normal [facility] Established Visit (Otolaryng ology)on 02-09-2022 Established [...] Recorded: 09Feb2022 03:01PM Height5 ft 4 in Piwrgs924 lb BMI Vvltsxxgio12.35 kg/m2 BSA Calculated2.22 Tobacco Useb) No Falls [...] Feb 09 2022 3:21PM EST (Author) Normal [facility] Tobacco Screening.on Fall risk assessment c) Not medically indicated [facility] Work Phone: Tobacco use status [facility] b) No [facility] Work Phone: Reference Laboratory Testing Ordered By: [facility] DomainUser on 05-15-2021 SARS-CoV-2 (COVID-19) RNA JONY+probe Ql (Resp) Not detected Invalid Interpretation Code Not Detected [facility] [employer] Comment on above: Result Comment: This nucleic acid amplification test was developed and its performance characteristics determined by [employer]. Nucleic acid amplification tests include RT-PCR and [...] result in this assay. Performed at: [address] [id number] PhD [facility] Tobacco Screening.on Fall risk assessment a) No falls within the last year [employer] Work Phone: Tobacco use status [facility] b) No [facility] [employer] Work Phone: Coronavirus 2019 RNA by PCR, Screening Asymptomticon 03-17-2021 Coronavirus 2019 RNA by PCR, Screening Asymptomtic Not detected Normal See Below [employer] Work Phone: Comment on above: SOURCE: Nasal, [...] make patient management decisions.Fact sheet for providers: https://www.fda.gov/media/143316/downloadFact sheet for patients: https://www.fda.gov/media/728458/downloadThis test has received FDA Emergency Use Authorization (EUA) and has been verified by [facility] ([facility]). This test is only authorized for the duration of time that circumstances exist to justify the authorization of the emergency use of in vitro diagnostic tests for the detection of SARS-CoV-2 virus and/or diagnosis of COVID-19 infection under section 564(b)(1) of the Act, 21 U.S.C. 360bbb-3(b)(1), unless the authorization is terminated or revoked sooner. [facility] is certified under CLIA-88 as qualified to perform high complexity testing. Testing is performed in the [facility] laboratories located at [address] [place] [address]. Laboratory - Blood bankon ABO group Nom (Bld) O MG-Ot olaryn [facility]ology-[employer] [facility] Work Phone: [phone] Blood group antibody screen Ql Negative [facility]-Otol[facility] man Work Phone: [phone] Rh immune globulin screen (Bld) [Interp] Positive [facility]-Otolary n gology-[facility]ela man Work Phone: [phone] Laboratory - Chemistry and C hemistry - challengeon 03-13-2021 Anion gap [Moles/Vol] 13 mmol/L 10 - 20 MG- Otolaryn gology-[facility]ela man Work Phone: [phone] Calcium [Mass/Vol] 9.3 mg/dL 8.6 - 10.6 [facility] laryn gology-Gabriela man Work Phone: [phone] Chloride [Moles/Vol] 102 mmol/L 98 - 107 MG-O tolaryn gology-Gabriela man Work Phone: [phone] CO2 [Moles/Vol] 28 mmol/L 21 - 32 MG-Otolar yn gology-Gabriela man Work Phone: [phone] Creatinine [Mass/Vol] 0.77 mg/dL See Below MG- [place] gology-[facility]ela man Work Phone: [phone] Comment on above: Reference Range: 0.5 0 - 1.05 Glucose [Mass/Vol] 95 mg/dL 74 - 99 MG-Efra maldonado Work Phone: [phone] Potassium [Moles/Vol] 5.2 mmol/L 3.5 - 5.3 [facility]- [place] maldonado Work Phone: [phone] Sodium [Moles/Vol] 138 mmol/L 136 - 145 [facility]-Efra maldonado Work Phone: [phone] Urea nitrogen [Mass/Vol] 19 mg/dL 6 - 23 [facility]-[place] maldonado Work Phone: [phone] Laboratory - Hematology and Cell countson 03-13-2021 Erythrocyte distribution width (RBC) [Ratio] 12.8 % See Below [facility] Work Phone: [phone] Comment on above: Reference Range: 11. 5 - 14.5 Hematocrit (Bld) [Volume fraction] 38.6 % See Below -[place] maldonado Work Phone: [phone] Comment on above: Reference Range: 36. 0 - 46.0 Hemoglobin (Bld) [Mass/Vol] 11.8 g/dL below low threshold See Below -[place] maldonado Work Phone: [phone] Comment on above: Reference Range: 12. 0 - 16.0 MCHC (RBC) [Mass/Vol] 30.6 g/dL below low threshold See Below [facility] maldonado Work Phone: [phone] Comment on above: Reference Range: 32. 0 - 36.0 MCV (RBC) [Entitic vol] 96 fL 80 - 100 M [facility] [employer] Work Phone: [phone] Platelets (Bld) [#/Vol] 325 10*3/uL 150 - 450 [facility]-[place] maldonado Work Phone: [phone] RBC (Bld) [#/Vol] 4.01 {x10E12/L} See Below MG -Otolaryn gology-[facility]ela man Work Phone: [phone] Comment on above: Reference Range: 4.0 0 - 5.20 WBC (Bld) [#/Vol] 8.6 10*3/uL 4.4 - 11.3 [facility] laryn gology-Gabriela man Work Phone: [phone] Panel Informationon 03-13 >60 >60 MG-Otolaryn gology-[facility]ela man Work Phone: [phone] Comment on above: CALCULATIONS OF HUANG MATED GFR ARE PERFORMED USING THE MDRD STUDY EQUATION FOR THE IDMS-TRACEABLE CREATININE METHODS. CLIN CHEM 2007;53:766-72 0.0 {/100_WBC} 0.0-0.0 MG-Otolary n gology-Gabriela man Work Phone: [phone] [email or web address]?RetrieveTestByDateTim e?FgecutzOD=[email or web address]&Da te=04-11-2021&Time=10%3a 52%3a43%3a00&TestType=EC G&Site=1&OutputType=PDF& Ext=PDF [facility]tol[facility] gology-[facility] man Work Phone: [phone] Normal sinus rhythm MG-Ot olaryn gology-[facility]ela man Work Phone: [phone] Normal MG-[facility]tolaryn gology-[facility] man Work Phone: [phone] MG-[facility]tolaryn gology-[facility] man Work Phone: [phone] MG-[facility]tol[facility]ology-[facility] man Work Phone: [phone] MG-[place]tol[facility] gology-[facility]ela man Work Phone: [phone] 1 MG-[facility]tolaryn gology-[employer] man Work Phone: [phone] 1 MG-Otolaryn gology-[facility]riela man Work Phone: 12 1 MG-Otolaryn gology-[facility]riela man Work Phone: [phone] 1 MG-Otolaryn gology-[facility]ela man Work Phone: [phone] 1 MG-Otolaryn gology-[facility]ela man Work Phone: [phone] -20 1 MG-[facility]tolaryn gology-[facility]ela man Work Phone: [phone] 1 MG-[facility]tolaryn gology-[facility] man Work Phone: [phone] 1 MG-[facility]tol[facility] gology-[facility] man Work Phone: [phone] 1 MG-[facility]tolaryn gology-[facility]ela man Work Phone: [phone] 1 MG-Otolaryn gology-[facility] man Work Phone: [phone] 1 [facility]tol[facility] gology-[facility]ela man Work Phone: CT Chest without Contraston 03-03-2021 CT Chest WO contrast Normal MG-[facility] tolaryn gology-[employer] Work Phone: Tobacco Screening.on Fall risk assessment a) No falls within the last year MG-[facility]tol[facility] [employer] Work Phone: Tobacco use status [facility] b) No M G-Otolaryn [employer] Work Phone: Tobacco Screening.on Fall risk assessment c) Not medically indicated [facility]-[place] [employer] Work Phone: Tobacco use status [facility] b) No M G-[place] [employer] Work Phone: Vital Signs Date Time Vital Sign Value Performing Clinician Facility 02-07-2025 09:17-040 Body height 165.1 cm Zulma SINGH Work Phone: [facility] 02-07-2025 09:17-0400 Body mass index (BMI) [Ratio] 43.97 kg/m2 Zulma Hemmer PA Work Phone: [facility] 02-07-2025 09:17-0400 Body weight 119.84 kg Zulma Hemmer PA Work Phone: [facility] 02-07-2025 09:17-0400 Diastolic blood pressure 76 mm[Hg] Zulma Hemmer PA Work Phone: [facility] 02-07-2025 09:17-0400 Heart rate 76 /min Zulma Hemmer PA Work Phone: [facility] 02-07-2025 09:17-0400 Respiratory rate 16 /min Zulma Hemmer PA Work Phone: [facility] 02-07-2025 09:17-0400 SaO2% (BldA) [Mass fraction] 96 % Zulma Hemmer PA Work Phone: [facility] 02-07-2025 09:17-0400 Systolic blood pressure 118 mm[Hg] Zulma Hemmer PA Work Phone: [facility] 01-02-2025 13:07-0400 Body height 160.81 cm Bello Hilton II Work Phone: [facility] 01-02-2025 13:07-0400 Body mass index (BMI) [Ratio] 46.3 kg/m2 Bello Hilton II Work Phone: [facility] 01-02-2025 13:07-0400 Body weight 119.95 kg Bellojered Hilton II Work Phone: [facility] 01-02-2025 13:07-0400 Diastolic blood pressure 77 mm[Hg] Bello Hilton II Work Phone: [facility] 01-02-2025 13:07-0400 Heart rate 85 /min Bello Hilton II Work Phone: [facility] 01-02-2025 13:07-0400 Respiratory rate 20 /min Bello Hilton II Work Phone: [facility] 01-02-2025 13:07-0400 SaO2% (BldA) [Mass fraction] 96 % Bello Hilton II Work Phone: [facility] 01-02-2025 13:07-0400 Systolic blood pressure 105 mm[Hg] Bello Hilton II Work Phone: [facility] 12-13-2024 09:32-0400 Body height 162.56 cm Bello Hilton II Work Phone: [facility] 12-13-2024 09:32-0400 Body mass index (BMI) [Ratio] 48.4 kg/m2 Bello Hilton II Work Phone: [facility] 12-13-2024 09:32-0400 Body weight 127.91 kg Bello Hilton II Work Phone: [facility] 12-13-2024 09:32-0400 Diastolic blood pressure 74 mm[Hg] Bello Hilton II Work Phone: [facility] 12-13-2024 09:32-0400 Heart rate 84 /min Bello Hilton II Work Phone: [facility] 12-13-2024 09:32-0400 Respiratory rate 18 /min Bellojered Hilton II Work Phone: [facility] 12-13-2024 09:32-0400 SaO2% (BldA) [Mass fraction] 93 % Bellojered Hilton II Work Phone: [facility] 12-13-2024 09:32-0400 Systolic blood pressure 124 mm[Hg] Bello Hilton II Work Phone: [facility] 11-07-2024 13:40-0400 Body height 160.81 cm Bello Hilton II Work Phone: [facility] 11-07-2024 13:40-0400 Body mass index (BMI) [Ratio] 46.8 kg/m2 Bello Hilton II Work Phone: [facility] 11-07-2024 13:40-0400 Body weight 121.2 kg Bello Hilton II Work Phone: [facility] 11-07-2024 13:40-0400 Diastolic blood pressure 65 mm[Hg] Bello Hilton II Work Phone: [facility] 11-07-2024 13:40-0400 Heart rate 82 /min Bello Hilton II Work Phone: [facility] 11-07-2024 13:40-0400 Respiratory rate 20 /min Bello Hilton II Work Phone: [facility] 11-07-2024 13:40-0400 SaO2% (BldA) [Mass fraction] 96 % Bello Hilton II Work Phone: [facility] 11-07-2024 13:40-0400 Systolic blood pressure 104 mm[Hg] Bello Hilton II Work Phone: [facility] 09-19-2024 14:26-0400 Body height 160.91 cm Bello Hilton II Work Phone: [facility] 09-19-2024 14:26-0400 Body mass index (BMI) [Ratio] 46.8 kg/m2 Bellojreed Hilton II Work Phone: [facility] 09-19-2024 14:26-0400 Body weight 121.25 kg Bellojered Hilton II Work Phone: [facility] 09-19-2024 14:26-0400 Diastolic blood pressure 75 mm[Hg] Bello Hilton II Work Phone: [facility] 09-19-2024 14:26-0400 Heart rate 80 /min Bello Hilton II Work Phone: [facility] 09-19-2024 14:26-0400 Respiratory rate 20 /min Bello Hilton II Work Phone: [facility] 09-19-2024 14:26-0400 SaO2% (BldA) [Mass fraction] 96 % Bello Hilton II Work Phone: [facility] 09-19-2024 14:26-0400 Systolic blood pressure 121 mm[Hg] Bello Hilton II Work Phone: [facility] 09-18-2024 10:30-0400 Body height 165.1 cm Cristina Hubbard [employer] Work Phone: [facility] 09-18-2024 10:30-0400 Body mass index (BMI) [Ratio] 44.6 kg/m2 Cristina Hubbard [employer] F[employer] Work Phone: [facility] 09-18-2024 10:30-0400 Body weight 121.56 kg Cristina Hubbard [employer] Work Phone: [facility] 09-18-2024 10:30-0400 Diastolic blood pressure 80 mm[Hg] Cristina Hubbard [employer] F[employer]ER Work Phone: [facility] 09-18-2024 10:30-0400 Heart rate 80 /min Cristina Hubbard [employer] Work Phone: [facility] 09-18-2024 10:30-0400 SaO2% (BldA) [Mass fraction] 95 % Cristina Hubbard [employer] Work Phone: [facility] 09-18-2024 10:30-0400 Systolic blood pressure 122 mm[Hg] Cristina Hubbard [employer] Work Phone: [facility] 09-03-2024 13:36-0400 Body height 165.1 cm Zulma Hemmer PA Work Phone: [facility] 09-03-2024 13:36-0400 Body mass index (BMI) [Ratio] 44.73 kg/m2 Zulma Hemmer PA Work Phone: [facility] 09-03-2024 13:36-0400 Body weight 121.93 kg Zulma Hemmer PA Work Phone: [facility] 09-03-2024 13:36-0400 Diastolic blood pressure 68 mm[Hg] Zulma Hemmer PA Work Phone: [facility] 09-03-2024 13:36-0400 Heart rate 81 /min Zulma Hemmer PA Work Phone: [facility] 09-03-2024 13:36-0400 Respiratory rate 16 /min Zulma SINGH Work Phone: [facility] 09-03-2024 13:36-0400 SaO2% (BldA) [Mass fraction] 95 % Zulma Moe PA Work Phone: [facility] 09-03-2024 13:36-0400 Systolic blood pressure 112 mm[Hg] Zulma Moe PA Work Phone: [facility] 07-19-2024 09:44-0400 Body height 164.5 cm Dominic Saldana MD Work Phone: [facility] 07-19-2024 09:44-0400 Body mass index (BMI) [Ratio] 44.27 kg/m2 Dominic Saldana MD Work Phone: [facility] 07-19-2024 09:44-0400 Body temperature 97.5 [degF] Dominic Saldana MD Work Phone: [facility] 07-19-2024 09:44-0400 Body weight 119.75 kg Dominic Saldana MD Work Phone: [facility] 07-19-2024 09:44-0400 Diastolic blood pressure 74 mm[Hg] Dominic Saldana MD Work Phone: [facility] 07-19-2024 09:44-0400 Systolic blood pressure 134 mm[Hg] Dominic Saldana MD Work Phone: [facility] 07-04-2024 14:06-0500 Diastolic blood pressure 66 mm[Hg] Bello Hilton II Work Phone: [facility] 07-04-2024 14:06-0500 Heart rate 77 /min Bello Hilton II Work Phone: [facility] 07-04-2024 14:06-0500 Respiratory rate 18 /min Bello Hilton II Work Phone: [facility] 07-04-2024 14:06-0500 SaO2% (BldA) [Mass fraction] 95 % Bello Hilton II Work Phone: [facility] 07-04-2024 14:06-0500 Systolic blood pressure 124 mm[Hg] Bello Hilton II Work Phone: [facility] 04-10-2024 08:36-0500 Body height 162.6 cm Dominic Saldana MD Work Phone: [facility] 04-10-2024 08:36-0500 Body mass index (BMI) [Ratio] 45.49 kg/m2 Dominic Saldana MD Work Phone: [facility] 04-10-2024 08:36-0500 Body temperature 97.9 [degF] Dominic Saldana MD Work Phone: [facility] 04-10-2024 08:36-0500 Body weight 120.2 kg Dominic Saldana MD Work Phone: [facility] 04-10-2024 08:36-0500 Diastolic blood pressure 75 mm[Hg] Dominic Saldana MD Work Phone: [facility] 04-10-2024 08:36-0500 Heart rate 77 /min Dominic Saldana MD Work Phone: [facility] 04-10-2024 08:36-0500 Systolic blood pressure 123 mm[Hg] Dominic Saldana MD Work Phone: [facility] 02-21-2024 13:25-0400 Body height 162.6 cm Ronnie Murphy MD Work Phone: [facility] 02-21-2024 13:25-0400 Body mass index (BMI) [Ratio] 44.11 kg/m2 Ronnie Murphy MD Work Phone: [facility] 02-21-2024 13:25-0400 Body weight 116.57 kg Ronnie Murphy MD Work Phone: [facility] 02-14-2024 08:57-0400 Body height 165.1 cm Cristina Hubbard [employer] Work Phone: [facility] 02-14-2024 08:57-0400 Body mass index (BMI) [Ratio] 43.93 kg/m2 Cristina Hubbard [employer] Work Phone: [facility] 02-14-2024 08:57-0400 Body weight 119.75 kg Cristina Hubbard [employer] Work Phone: [facility] 02-14-2024 08:57-0400 Diastolic blood pressure 66 mm[Hg] Cristina Hubbard [employer] Work Phone: [facility] 02-14-2024 08:57-0400 Heart rate 81 /min Cristina Hubbard [employer] Work Phone: [facility] 02-14-2024 08:57-0400 SaO2% (BldA) [Mass fraction] 95 % Cristina Hubbard [employer] Work Phone: [facility] 02-14-2024 08:57-0400 Systolic blood pressure 128 mm[Hg] Cristina Hubbard [employer] Work Phone: [facility] 12-20-2023 11:22-0400 Body height 164.08 cm II Bello Hilton Work Phone: [facility] 12-20-2023 11:22-0400 Body mass index (BMI) [Ratio] 43.5 kg/m2 II Bello Hilton Work Phone: [facility] 12-20-2023 11:22-0400 Body weight 117.22 kg II Bello Hilton Work Phone: [facility] 12-20-2023 11:22-0400 Diastolic blood pressure 73 mm[Hg] II Bello Hilton Work Phone: [facility] 12-20-2023 11:22-0400 Heart rate 79 /min II Bello Hilton Work Phone: [facility] 12-20-2023 11:22-0400 Respiratory rate 18 /min II Bello Hilton Work Phone: [facility] 12-20-2023 11:22-0400 SaO2% (BldA) [Mass fraction] 96 % II Bello Hilton Work Phone: [facility] 12-20-2023 11:22-0400 Systolic blood pressure 114 mm[Hg] II Bello Hilton Work Phone: [facility] 10-19-2023 11:10-0400 Body height 164.08 cm II Bello Hilton Work Phone: [facility] 10-19-2023 11:10-0400 Body mass index (BMI) [Ratio] 43.3 kg/m2 II Bello Hilton Work Phone: [facility] 10-19-2023 11:10-0400 Body weight 116.62 kg II Bello Hilton Work Phone: [facility] 10-19-2023 11:10-0400 Diastolic blood pressure 69 mm[Hg] II Bello Hilton Work Phone: [facility] 10-19-2023 11:10-0400 Heart rate 76 /min II Bello Hilton Work Phone: [facility] 10-19-2023 11:10-0400 Respiratory rate 18 /min II Bello Hilton Work Phone: [facility] 10-19-2023 11:10-0400 SaO2% (BldA) [Mass fraction] 97 % II Bello Hilton Work Phone: [facility] 10-19-2023 11:10-0400 Systolic blood pressure 117 mm[Hg] II Bello Hilton Work Phone: [facility] 10-05-2023 10:09-0400 Body height 164.08 cm II Bello Hilton Work Phone: [facility] 10-05-2023 10:09-0400 Body mass index (BMI) [Ratio] 42.8 kg/m2 II Bello Hilton Work Phone: [facility] 10-05-2023 10:09-0400 Body temperature 96.6 [degF] II Bello Hilton Work Phone: [facility] 10-05-2023 10:09-0400 Body weight 115.32 kg II Bello Hilton Work Phone: [facility] 10-05-2023 10:09-0400 Diastolic blood pressure 80 mm[Hg] II Bello Hilton Work Phone: [facility] 10-05-2023 10:09-0400 Heart rate 90 /min II Bello Hilton Work Phone: [facility] 10-05-2023 10:09-0400 Respiratory rate 18 /min II Bello Hilton Work Phone: [facility] 10-05-2023 10:09-0400 SaO2% (BldA) [Mass fraction] 96 % II Bello Hilton Work Phone: [facility] 10-05-2023 10:09-0400 Systolic blood pressure 130 mm[Hg] II Bello Hilton Work Phone: [facility] 08-09-2023 11:20-0400 Body height 165.1 cm II Bello Hilton Work Phone: [facility] 08-09-2023 11:20-0400 Body mass index (BMI) [Ratio] 43.2 kg/m2 II Bello Hilton Work Phone: [facility] 08-09-2023 11:20-0400 Body weight 117.67 kg II Bello Hilton Work Phone: [facility] 08-09-2023 11:20-0400 Diastolic blood pressure 76 mm[Hg] II Bello Hilton Work Phone: [facility] 08-09-2023 11:20-0400 Heart rate 73 /min II Bello Hilton Work Phone: [facility] 08-09-2023 11:20-0400 Respiratory rate 18 /min II Bello Hilton Work Phone: [facility] 08-09-2023 11:20-0400 SaO2% (BldA) [Mass fraction] 96 % II Bello Hilton Work Phone: [facility] 08-09-2023 11:20-0400 Systolic blood pressure 138 mm[Hg] II Bello Hilton Work Phone: [facility] 08-06-2023 11:30-0400 Diastolic blood pressure 70 mm[Hg] II Bello Hilton Work Phone: [facility] 08-06-2023 11:30-0400 Heart rate 76 /min II Bello Hilton Work Phone: [facility] 08-06-2023 11:30-0400 Respiratory rate 18 /min II Bello Hilton Work Phone: [facility] 08-06-2023 11:30-0400 SaO2% (BldA) [Mass fraction] 95 % II Bello Hilton Work Phone: [facility] 08-06-2023 11:30-0400 Systolic blood pressure 142 mm[Hg] II Bello Hilton Work Phone: [facility] 08-06-2023 10:34-0400 Body height 166.37 cm II Bello Hilton Work Phone: [facility] 08-06-2023 10:34-0400 Body weight 117 kg II Bello Hilton Work Phone: [facility] 08-06-2023 10:33-0400 Body temperature 98.6 [degF] II Bello Hilton Work Phone: [facility] 07-05-2023 11:09-0500 Body height 165.1 cm II Bello Hilotn Work Phone: [facility] 07-05-2023 11:09-0500 Body mass index (BMI) [Ratio] 41.3 kg/m2 II Bello Hilton Work Phone: [facility] 07-05-2023 11:09-0500 Body weight 112.71 kg II Bello Hilton Work Phone: [facility] 06-07-2023 10:30-0500 Body height 165.1 cm Lilliam Scally Other [employer] Other 06-07-2023 10:30-0500 Body mass index (BMI) [Ratio] 41.71 kg/m2 Lilliam Scally Other [employer] Other 06-07-2023 10:30-0500 Body weight 113.72 kg Lilliam Scally Other [employer] Other 06-07-2023 10:30-0500 Diastolic blood pressure 72 mm[Hg] Lilliam Scally Other [employer] Other 06-07-2023 10:30-0500 Respiratory rate 18 /min Lilliam Scally Other [employer] Other 06-07-2023 10:30-0500 SaO2% (BldA) [Mass fraction] 97 % Lilliam Scally Other [employer] Other 06-07-2023 10:30-0500 Systolic blood pressure 114 mm[Hg] Lilliam Scally Other [employer] Other 06-03-2023 08:24-0500 Diastolic blood pressure 78 mm[Hg] Emiliano Lagos [facility] 06-03-2023 08:24-0500 Heart rate 91 /min Emiliano Lagos [facility] [place] [facility] 06-03-2023 08:24-0500 Systolic blood pressure 109 mm[Hg] Emiliano Lagos [facility] [place] [facility] 02-22-2023 14:36-0400 Body height 163.8 cm Ronnie Murphy MD Work Phone: [facility] 02-22-2023 14:36-0400 Body mass index (BMI) [Ratio] 43.09 kg/m2 Ronnie Murphy MD Work Phone: [facility] 02-22-2023 14:36-0400 Body weight 115.67 kg Ronnie Murphy MD Work Phone: [facility] 02-15-2023 13:00-0400 Body height 165.1 cm Nikki Fitt Other [employer] Other 02-15-2023 13:00-0400 Body mass index (BMI) [Ratio] 42.16 kg/m2 Nikki Fitt Other [employer] Other 02-15-2023 13:00-0400 Body weight 114.94 kg Nikki Fitt Other [employer] Other 02-01-2023 10:15-0400 Body height 165.1 cm Lilliam Scally Other [employer] Other 02-01-2023 10:15-0400 Body mass index (BMI) [Ratio] 42.2 kg/m2 Lilliam Scally Other [employer] Other 02-01-2023 10:15-0400 Body weight 115.03 kg Lilliam Scally Other [employer] Other 02-01-2023 10:15-0400 Diastolic blood pressure 78 mm[Hg] Lilliam Scally Other [employer] Other 02-01-2023 10:15-0400 Respiratory rate 20 /min Lilliam Scally Other [employer] Other 02-01-2023 10:15-0400 SaO2% (BldA) [Mass fraction] 96 % Lilliam Scally Other [employer] Other 02-01-2023 10:15-0400 Systolic blood pressure 130 mm[Hg] Lilliam Scally Other [employer] Other 12-22-2022 13:00-0400 Body height 165.1 cm Nikki Fitt Other [employer] Other 12-22-2022 13:00-0400 Body mass index (BMI) [Ratio] 41.73 kg/m2 Nikki Fitt Other [employer] Other 12-22-2022 13:00-0400 Body weight 113.76 kg Nikki Fitt Other [employer] Other 10-19-2022 10:15-0400 Body height 165.1 cm Lilliam Scally Other [employer] Other 10-19-2022 10:15-0400 Body mass index (BMI) [Ratio] 41.41 kg/m2 Lilliam Scally Other [employer] Other 10-19-2022 10:15-0400 Body weight 112.9 kg Lililam Scally Other [employer] Other 10-19-2022 10:15-0400 Diastolic blood pressure 72 mm[Hg] Lilliam Scally Other [employer] Other 10-19-2022 10:15-0400 Respiratory rate 18 /min Lilliam Scally Other [employer] Other 10-19-2022 10:15-0400 SaO2% (BldA) [Mass fraction] 96 % Lilliam Scally Other [employer] Other 10-19-2022 10:15-0400 Systolic blood pressure 110 mm[Hg] Lilliam Scally Other [employer] Other 10-19-2022 08:15-0400 Body height 165.1 cm Nikki Fitt Other [employer] Other 07-27-2022 10:45-0400 Body height 165.1 cm Lilliam Scally Other [employer] Other 07-27-2022 10:45-0400 Body mass index (BMI) [Ratio] 41.08 kg/m2 Lilliam Scally Other [employer] Other 07-27-2022 10:45-0400 Body weight 111.99 kg Lilliam Scally Other [employer] Other 07-27-2022 10:45-0400 Diastolic blood pressure 72 mm[Hg] Lilliam Scally Other [employer] Other 07-27-2022 10:45-0400 Respiratory rate 20 /min Lilliam Scally Other [employer] Other 07-27-2022 10:45-0400 SaO2% (BldA) [Mass fraction] 97 % Lilliam Montejo Other [employer] Other 07-27-2022 10:45-0400 Systolic blood pressure 109 mm[Hg] Lilliam Montejo Other [employer] Other 06-15-2022 09:15-0500 Body height 165.1 cm Nikki Manning Other [employer] Other 06-01-2022 13:03-0500 Body height 163.83 cm Gopi Solis MD Work Phone[facility] DO Work Phone: 06-01-2022 13:03-0500 Body mass index (BMI) [Ratio] 43.6 kg/m2 Gopi Solis MD Work Phone[facility] 250 DO Work Phone: 06-01-2022 13:03-0500 Body surface area Derived from formula 2.19 m2 Gopi Solis MD Work Phone: [facility] 250 DO Work Phone: 06-01-2022 13:03-0500 Body weight 117.03 kg Gopi Solis MD Work Phone[facility] 250 DO Work Phone: 06-01-2022 13:03-0500 Diastolic blood pressure 62 mm[Hg] Gopi Solis MD Work Phone: [facility] DO Work Phone: 01-31-2023 13:03-0500 Heart rate 76 /min Gopi Solis MD Work Phone[facility] DO Work Phone: 06-01-2022 13:03-0500 Systolic blood pressure 126 mm[Hg] Gopi Solis MD Work Phone[facility] DO Work Phone: 06-01-2022 12:30-0500 Body height 165.1 cm Lilliam Scally Other [employer] Other 06-01-2022 12:30-0500 Body mass index (BMI) [Ratio] 42.85 kg/m2 Lilliam Scally Other [employer] Other 06-01-2022 12:30-0500 Body weight 116.8 kg Lilliam Scally Other [employer] Other 06-01-2022 12:30-0500 Diastolic blood pressure 70 mm[Hg] Lilliam Scally Other [employer] Other 06-01-2022 12:30-0500 Respiratory rate 20 /min Lilliam Scally Other [employer] Other 06-01-2022 12:30-0500 SaO2% (BldA) [Mass fraction] 97 % Lilliam Scally Other [employer] Other 06-01-2022 12:30-0500 Systolic blood pressure 112 mm[Hg] Lilliam Scally Other [employer] Other 02-09-2022 15:01-0400 Body height 162.56 cm Ronnie Murphy MD Work Phone: FP-Hpkklovrbqfgof-Oma [facility] Work Phone: 02-09-2022 15:01-0400 Body mass index (BMI) [Ratio] 46.35 kg/m2 Ronnie Murphy MD Work Phone: OX-Rwrtqbjwxjwzjg-Zxe [place] Work Phone: 02-09-2022 15:01-0400 Body surface area Derived from formula 2.22 m2 Ronnie Murphy MD Work Phone: AA-Czjdvsdvxzftjw-Evt [place] Work Phone: 02-09-2022 15:01-0400 Body weight 122.47 kg Ronnie Murphy MD Work Phone: XM-Oyofnkpyfmavio-Suw [place] Work Phone: 03-31-2021 15:33-0500 Body height 162.56 cm Ronnie Murphy MD Work Phone: QN-Fjjqikysldldby-Mui [place] Work Phone: 03-31-2021 15:33-0500 Body mass index (BMI) [Ratio] 46.52 kg/m2 Ronnie Murphy MD Work Phone: RW-Hdclddkwehbzar-Wca [place] Work Phone: 03-31-2021 15:33-0500 Body surface area Derived from formula 2.23 m2 Ronnie Murphy MD Work Phone: RY-Pkjoxgmygldwbk-Ezh [place] Work Phone: 03-31-2021 15:33-0500 Body temperature 97.2 [degF] Ronnie Murphy MD Work Phone: RK-Eulftwyetaxoyf-Kdk [place]lake Work Phone: 03-31-2021 15:33-0500 Body weight 122.93 kg Ronnie Murphy MD Work Phone: KG-Bolldwedeyfngt-Yym [place] Work Phone: 03-03-2021 12:52-0400 Body height 162.56 cm Ronnie Murphy MD Work Phone: YT-Nusvungtqkhmom-Gvf tlake Work Phone: 03-03-2021 12:52-0400 Body mass index (BMI) [Ratio] 46.35 kg/m2 Ronnie Murphy MD Work Phone: QA-Tqkkejecwyexxi-Shd tlake Work Phone: 03-03-2021 12:52-0400 Body surface area Derived from formula 2.22 m2 Ronnie Murphy MD Work Phone: CN-Gmxjtwmjxcdpnm-Yzj tlake Work Phone: 03-03-2021 12:52-0400 Body weight 122.47 kg Ronnie Murphy MD Work Phone: BL-Imzfisoddensuh-Vjb tlake Work Phone: 02-10-2021 15:05-0400 Body height 162.56 cm Ronnie Murphy MD Work Phone: AC-Feavwredptqvsn-Npm tlake Work Phone: 02-10-2021 15:05-0400 Body mass index (BMI) [Ratio] 46 kg/m2 Ronnie Murphy MD Work Phone: LH-Cullircwahvkmo-Bhu [place] Work Phone: 02-10-2021 15:05-0400 Body surface area Derived from formula 2.22 m2 Ronnie Murphy MD Work Phone: MB-Uymoyuurihkjgc-Dxz tlake Work Phone: 02-10-2021 15:05-0400 Body temperature 97.4 [degF] Ronnie Murphy MD Work Phone: BB-Sfcyqvukmfqiuj-Ueg tlake Work Phone: 02-10-2021 15:05-0400 Body weight 121.56 kg Ronnie Muprhy MD Work Phone: YD-Itguelqbjszsls-Whf t[place] Work Phone: Encounters Encounter Date Encounter Type Care Provider Facility Start: 02-07-2025 End: 02-07-2025 Bamboo flowsheet Zulma SINGH Work Phone: [facility] Start: 02-07-2025 End: 02-07-2025 Bamboo flowsheet Zulma SINGH Work Phone: [facility] Start: 02-07-2025 End: 02-07-2025 Patient encounter procedure Zulma SINGH Work Phone: [facility] Comment on above: Medicare annual [facility] visit, subsequent (Primary Dx); ACP (advance care planning); Obstructive sleep apnea; BiPAP (biphasic positive airway pressure) dependence; Dyspnea on exertion; Tracheal stenosis; Abnormal electrocardiogram; Decreased right ventricular systolic function; LVH (left ventricular hypertrophy); Mitral valve insufficiency and aortic valve stenosis; Adrenal abnormality (HCC); Esophageal dysphagia; Gastroesophageal reflux disease without esophagitis; Fatty pancreas (HCC); Hepatomegaly; Intra-abdominal lymphadenopathy; Tubular adenoma of colon; Lower extremity edema; Acquired hypothyroidism; Type 2 diabetes mellitus with other specified complication, without long-term current use of insulin (HCC); Morbid obesity with BMI of 40.0-44.9, adult ([facility]-HCC); Thyrotoxicosis without thyroid storm, unspecified thyrotoxicosis type; Vitamin D deficiency; Allergic rhinitis due to pollen, unspecified seasonality; Anxiety and depression; Screening for malignant neoplasm of colon; Bipolar 1 disorder, depressed, partial remission (HCC); Estrogen deficiency; History of basal cell carcinoma; Lipoprotein deficiency disorder; Mixed hyperlipidemia Start: 02-07-2025 End: 02-07-2025 ambulatory ZULMA MOE Not Available Start: 02-02-2025 End: 02-02-2025 Clinisync Result Encounter Bello Hilton MD Work Phone: [facility] Unsolicited Start: 02-02-2025 End: 02-02-2025 Clinisync Result Encounter Bello Hilton MD Work Phone: [facility] Unsolicited Start: 01-02-2025 End: 01-02-2025 ambulatory Bello Hilton II Work Phone: [facility] Work Phone: Start: 01-02-2025 End: 01-02-2025 Patient encounter procedure Lilliam Toro Gustabo [employer] -[facility] Work Phone: Start: 12-19-2024 End: 12-19-2024 ambulatory Bello Hilton II Work Phone: [facility] Work Phone: Start: 12-19-2024 End: 12-19-2024 Patient encounter procedure Maricel Shultz -[facility] Work Phone: Start: 12-13-2024 End: 12-13-2024 ambulatory Bello Hilton II Work Phone: [facility] Work Phone: Start: 12-13-2024 End: 12-13-2024 Patient encounter procedure Caryl Meléndez MD -[facility] Work Phone: Start: 11-07-2024 End: 11-07-2024 ambulatory Bello Hilton II Work Phone: [facility] Work Phone: Start: 11-07-2024 End: 11-07-2024 Patient encounter procedure Lilliam Toro Gustabo [employer] -[facility] Work Phone: Start: 10-09-2024 End: 10-10-2024 Telephone encounter Bello Hilton MD Work Phone: [facility] Comment on above: Med Refill Start: 10-09-2024 ambulatory Bello Hilton Facility:[facility] Start: 10-09-2024 Registered Recurring Sujatha Wasserman MD -[facility] Start: 10-02-2024 End: 10-02-2024 Clinisync Result Encounter Generic External Data Provider [facility] External [facility] Unsolicited Start: 10-02-2024 End: 10-02-2024 Clinisync Result Encounter Generic External Data Provider [facility] External [facility] Unsolicited Start: 09-19-2024 End: 09-19-2024 Patient encounter procedure Lilliam Montejo [employer] -[facility] Work Phone: Start: 09-18-2024 End: 09-18-2024 Office outpatient visit 25 minutes rCistina Hubbard CAR FILLER Work Phone: [facility] Comment on [...] 09-03-2024 Office outpatient visit 15 minutes Zulma Moe PA Work Phone: [facility] Comment on above: Right ear impacted c erumen (Primary Dx); Dizziness; Other infective acute otitis externa of right ear Start: 09-03-2024 End: 09-03-2024 ambulatory ZULMA MOE Not Available Start: 08-22-2024 End: 08-22-2024 Subsequent hospital visit by physician Ricardo [id number] [facility] Comment on above: Encounter for screen ing for cardiovascular disorders; Mixed hyperlipidemia; Type 2 diabetes mellitus without complications; Cardiomegaly; Other ill-defined heart diseases Start: 08-22-2024 End: 08-22-2024 ambulatory CRISTINA HUBBARD [facility] Start: 07-19-2024 End: 07-19-2024 Office outpatient visit 25 minutes Dominic Saldana MD Work Phone: [facility] Comment on above: Hypothyroidism, unsp ecified type (Primary Dx); Class 3 severe obesity with serious comorbidity and body mass index (BMI) of 40.0 to 44.9 in adult, unspecified obesity type; Adrenal nodule; Type 2 diabetes mellitus without complication, without long-term current use of insulin (Multi) Start: 07-19-2024 End: 07-19-2024 ambulatory [facility] Ambulatory Start: 07-04-2024 End: 07-04-2024 ambulatory Bello Hilton II Work Phone: [facility] Work Phone: Start: 07-04-2024 End: 07-04-2024 Patient encounter procedure Bello Hilton II Work Phone: [facility] Work Phone: Start: 07-03-2024 Registered Recurring Bello guevara II Work Phone: [facility] Start: 05-31-2024 End: 05-31-2024 Clinisync Result [...] End: 04-10-2024 ambulatory BELLO HILTON [facility] Start: 04-10-2024 End: 04-10-2024 ambulatory [facility] Ambulatory Start: 04-10-2024 End: 04-10-2024 Office outpatient new 60 minutes Dominic Saldana MD Work Phone: [facility] Comment on above: Adrenal nodule (Prim stefano Dx); Hypothyroidism, unspecified type; Type 2 diabetes mellitus without complication, without long-term current use of insulin (Multi) Start: 03-05-2024 End: 03-06-2024 Telephone encounter Bello Hilton MD Work Phone: [facility] Start: 02-21-2024 End: 02-21-2024 ambulatory [facility] Ambulatory Start: 02-21-2024 End: 02-21-2024 Office outpatient visit 15 minutes Ronnie Murphy MD Work Phone: [facility] Comment on above: Tracheal stenosis (P rimary Dx); Gastroesophageal reflux disease without esophagitis Start: 02-14-2024 End: 02-14-2024 Bamboo flowsheet Cristina Hubbard CAR FILLER Work Phone: [facility] Start: 02-14-2024 End: 02-14-2024 Bamboo flowsheet Cristina Hubbard CAR FILLER Work Phone: [facility] Start: 02-14-2024 End: 02-14-2024 Assay of hemosiderin, quant Cristina Hubbard CAR FILLER Work Phone: [facility] Start: 02-14-2024 End: 02-14-2024 Patient encounter [...] complication, without long-term current use of insulin ([facility]); Bipolar 1 disorder, depressed, partial remission ([facility]); Mixed hyperlipidemia (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); Routine general medical examination at health care facility; Acute bronchitis, unspecified organism; Estrogen deficiency; Screening for heart disease; Trigger finger of left hand, unspecified finger; Type 2 diabetes mellitus with other specified complication ([facility]) Start: 02-14-2024 End: 02-14-2024 ambulatory CRISTINA HUBBARD Not Available Start: 12-20-2023 End: 12-20-2023 ambulatory II Bello Hilton Work Phone: [facility] Work Phone: Start: 12-20-2023 End: 12-20-2023 Patient encounter procedure II Bello Hilton Work Phone: [facility] Work Phone: Start: 10-25-2023 Registered Recurring II Bello Hilton Work Phone: [facility] Start: 10-19-2023 End: 10-19-2023 Departed Referred II Bello Hilton Work Phone: [facility] Work Phone: Start: 10-19-2023 End: 10-19-2023 ambulatory II Bello Hilton Work Phone: [facility] Work Phone: Start: 10-19-2023 End: 10-19-2023 Patient encounter procedure II Bello Hilton Work Phone: [facility] Work Phone: Start: 10-05-2023 End: 10-05-2023 ambulatory II Bello Hilton Work Phone: [facility] Work Phone: Start: 10-05-2023 End: 10-05-2023 Patient encounter procedure II Bello Hilton Work Phone: [facility] Work Phone: Start: 08-09-2023 End: 08-09-2023 ambulatory II Bello Hilton Work Phone: [facility] Work Phone: Start: 08-09-2023 End: 08-09-2023 Patient encounter procedure II Bello Hilton Work Phone: [facility] Work Phone: Start: 08-06-2023 End: 08-06-2023 Emergency department patient visit II Bello Hilton Work Phone: [facility] Work Phone: Start: 07-05-2023 End: 07-05-2023 Patient encounter procedure II Bello Hilton Work Phone: [facility] Work Phone: Start: 06-14-2023 Registered Recurring II Bello Hilton Work Phone: [facility] Start: 06-07-2023 (FCCCWMNF/U) Weight Management f/u Lilliam Montejo [facility] Start: 06-07-2023 End: 06-07-2023 ambulatory Lilliam Montejo Other [employer] Other Start: 06-07-2023 Registered Recurring II Bello Hilton Work Phone: [facility] Work Phone: Start: 06-03-2023 End: 06-04-2023 ambulatory Emiliano Lagos Facility:[facility] Start: 06-03-2023 End: 06-03-2023 Patient encounter procedure Emiliano Lagos [facility] [place] Start: 05-25-2023 End: 05-25-2023 ambulatory Lilliam Montejo Other [employer] Other Start: 05-25-2023 Telephone encounter [facility] Start: 05-17-2023 ambulatory Emiliano Lagos Facility:[facility] Start: 05-17-2023 Non-patient / Non-visit II Jac Hilton Work Phone: [facility] Work Phone: Start: 05-16-2023 Telephone encounter [facility] Start: 05-16-2023 End: 05-16-2023 ambulatory II Bello Hilton Work Phone: [employer] Other Start: 05-16-2023 End: 05-16-2023 Departed Referred II Bello Hilton Work Phone: [facility] Start: 05-16-2023 Non-patient / Non-visit II Jac reddviktoria Hilton Work Phone: [facility] Work Phone: Start: 05-15-2023 End: 05-17-2023 ambulatory SHAIKH ADALID Facility:[id number] Start: 04-13-2023 End: 04-13-2023 ambulatory Lilliam Montejo Other [employer] Other Start: 04-13-2023 Telephone encounter [facility] Start: 03-18-2023 End: 03-18-2023 ambulatory Lilliam Montejo Other [employer] Other Start: 03-18-2023 Telephone encounter [facility] Start: 03-15-2023 Registered Recurring II Bello Hilton Work Phone: [facility] Work Phone: Start: 02-22-2023 End: 02-22-2023 Office outpatient visit 15 minutes Ronnie Murphy MD Work Phone: [facility] Comment on above: Tracheal stenosis (P rimary Dx) Start: 02-15-2023 ([facility] RD FU) [facility] F/ U Registerd [employer] Technician Nikki Manning [facility] Start: 02-15-2023 End: 02-15-2023 ambulatory Nikki Fitt Other [employer] Other Start: 02-01-2023 [facility] Weight Management f/u Lilliamjose g Schroederclark [facility] Start: 02-01-2023 End: 02-01-2023 ambulatory Lilliam Montejo Other [employer] Other Start: 01-27-2023 Rx Renewal Luana Cox [employer] Work Phone: LT-Zaxdnjrkycryvz-Efpl [address] [place] [address] Work Phone: Start: 01-05-2023 End: 01-05-2023 ambulatory Lilliam Montejo Other [employer] Other Start: 01-05-2023 Telephone encounter Lilliam Montejo [facility] [facility] Start: 12-22-2022 ([facility] WMNI) WMN Init ial Provider Nikki Manning [facility] Start: 12-22-2022 End: 12-22-2022 ambulatory Nikki Fitt Other [employer] Other Start: 10-19-2022 [facility] Weight Management f/u Lilliam Gustabo [facility] Start: 10-19-2022 End: 10-19-2022 ambulatory Nikki Fitt Other [employer] Other Start: 10-19-2022 IBT FOR OBESITY GROU P 2-10 30M Nikkiblanca Manning [facility] Start: 09-02-2022 End: 09-03-2022 ambulatory LILLIAM MONTEJO Facility:[facility] Start: 08-05-2022 End: 08-05-2022 ambulatory Lilliam Montejo Other [employer] Other Start: 08-05-2022 Telephone encounter Lilliam Mcbride [facility] Start: 07-27-2022 (FCCCWMNF/U) [facility] Start: 07-27-2022 End: 07-27-2022 ambulatory Lilliam Montejo Other [employer] Other Start: 06-29-2022 End: 06-29-[address] DOCTOR SHANKS Facility:[facility] Start: 06-15-2022 End: 06-15-2022 ambulatory Nikki Cotat Other [employer] Other Start: 06-15-2022 IBT FOR OBESITY GROU P 2-10 30M [facility] Start: 06-01-2022 Office consultation new/estab patient 60 min Gopi Solis MD Work Phone: [facility] 250 DO Work Phone: Start: 06-01-2022 Office outpatient ne w 45 minutes Gopi Solis MD Work Phone: [facility] 250 DO Work Phone: Start: 06-01-2022 ([id number]) Weight Management f/u Lilliamjose g Schroederclark [facility] Start: 06-01-2022 End: 06-01-2022 ambulatory Bello Hilton II Facility:[id number] Start: 05-17-2022 End: 05-18-[address] DOCTOR SHANKS Facility:H1 Start: 05-11-2022 End: 05-12-[address] CAROL ASCENCIO Facility:H1 Start: 04-28-2022 Rx Change Luana Moralest DEMAND PLANNER-SEAPORT PLANNING MANAGER Work Phone: SR-Hpzcwvttdflwms-Gsrx n [place] [address] Work Phone: Start: 02-09-2022 Office outpatient vi sit 15 minutes Ronnie Murphy MD Work Phone: BE-Ctstszpbnjbixj-Jgku lake Work Phone: Start: 02-09-[address] RONNIE MURPHY Fa cility:[id number] Start: 05-15-2021 End: 08-13-2021 Patient encounter procedure BELLO Brown YOBANI [facility] Start: 04-16-2021 Rx Renewal Ronnie Murphy MD Work Phone: US-Ofbfuwbsaihoyo-Mbll n [place] [address] Work Phone: Start: 03-31-2021 Office outpatient vi sit 15 minutes Ronnie Murphy MD Work Phone: HK-Hrfoxkrjczpeyk-Pjqv lake Work Phone: Start: 03-19-2021 [facility], Provider: Ronnie Murphy, Status: Pen, Time: 9:00 AM Ronnie Murphy MD Work Phone: DI-Whndxycdfpfyzz-Mshz man Work Phone: Start: 03-18-2021 Chart Update Ronnie Murphy MD Work Phone: ML-Idahntldrsqdti-Stdn man Work Phone: Start: 03-04-2021 Chart Update Ronnie Murphy MD Work Phone: VF-Leyzalmgeqpbtn-Oufa lake Work Phone: Start: 02-11-2021 Telephone encounter Luana Espinosa muralit DEMAND PLANNER-SEAPORT PLANNING MANAGER Work Phone: ZT-Mdsiynuibtfosp-Glrw rban Work Phone: Start: 02-10-2021 Office outpatient vi sit 15 minutes Ronnie Murphy MD Work Phone: UU-Trnrwmbftafxyb-Nqmh [place] Work Phone: Start: 02-12-2020 Patient encounter procedure Ronnie Murphy GH-Jajkdogunkpbqc-Rmaz rban Work Phone: Start: 08-22-2018 Patient encounter procedure Ronnie Murphy YV-Uryqvwzpbbonsc-Hdhy n [place] [address] Work Phone: Start: 02-28-2018 Patient encounter procedure Ronnie Murphy JT-Drdwdvciwksyje-Bdpx n [place] [address] Work Phone: Start: 08-23-2017 Patient encounter procedure Ronnie Murphy XJ-Glelklhfllajfh-Vkbu n [place] [address] Work Phone: Start: 02-22-2017 Patient encounter procedure Ronnie Murphy US-Gcwnzakjialbmh-Ptum n [place] [address] Work Phone: Procedures Date Procedure Procedure Detail Performing Clinician Start: 02-02-2025 ALL CBC WITH AUTO DIFF Bello Hilton MD Work Phone: Start: 02-02-2025 MLR HEMOGLOBIN A1C Kevin Hilton MD Work Phone: Start: 02-02-2025 [facility] MICROALB CREAT R ATIO RANDOM Bello Hilton MD Work Phone: Start: 10-02-2024 ALL THYROID STIM HORMONE Generic [...] Work Phone: Start: 07-14-2018 Colonoscopy Cristina fox NP Work Phone: Start: 2001 Reduction mammoplasty J ohn Yolis Start: 1962 History of hernia repair Emiliano Lagos Hernia repair Gopi ovalle MD Work Phone: Operation on breast Gopi Solis MD Work Phone: Plan of Treatment Date Care Activity Detail Author Start: 07-14-2028 Screening for malign ant neoplasm of colon [facility] Start: 02-07-2026 Medicare Annual Wellness (AWV) Medicare Annual Wellness (AWV) [facility] Start: 10-29-2025 Influenza vaccination Influenza Vacc ine (#1) [facility] Comment on above: Postponed from 12/31 (Patient Refused) Start: 07-16-2025 End: 07-16-2025 Patient encounter procedure 07/16/2025 10:00 AM EDT Office Visit [facility] [address] [place] [address] [place] [address] Department of Medicine-[place] [address] [facility] Start: 05-31-2025 Screening for malign ant neoplasm of breast Mammogram [facility] Start: 04-10-2025 Thyroid stimulating hormone measurement TSH Level [facility] Start: 02-26-2025 End: 02-26-2025 Patient encounter procedure 02/26/2025 1:15 PM EDT Office Visit [facility] [address] [place] [address] [place] [address] [place] [address] [facility] Start: 02-14-2025 Lipid panel Lipid Panel [facility] Start: 02-14-2025 Thyroid stimulating hormone measurement TSH Level [facility] Start: 02-14-2025 Urine screening for protein Diabetes: Urine Protein Screening [facility] Start: 02-13-2025 Medicare Annual Wellness (AWV) Medicare Annual Wellness (AWV) [facility] Start: 02-13-2025 Pneumococcal Vaccine : 65+ Years (1 of 2 - PCV) Pneumococcal Vaccine: 65+ Years (1 of 2 - PCV) [facility] Comment on above: Postponed from 05/02 (Patient Refused) Postponed from 05/02 (Patient Refused) Start: 02-07-2025 End: 02-07-2026 DXA Skeletal system Views for bone density DEXA bone density Imaging Routine Estrogen deficiency Expected: 02/07/2025, Expires: 02/07/2026 [facility] Work Phone: Comment on above: Expected: 02/07/2025 , Expires: 02/07/2026 Start: 02-07-2025 End: 02-07-2025 Patient encounter procedure [facility] Comment on above: Arrived Start: 01-25-2025 Glaucoma screening Diabetes: R etinopathy Screening [facility] Start: 12-31-2024 Influenza vaccination [facility] Start: 12-13-2024 [facility] Start: 11-08-2024 Patient referral [facility] Work Phone: Start: 10-18-2024 Urine screening for protein Diabetes: Urine Protein Screening [facility] Start: 09-10-2024 End: 07-19-2025 IGF-I IGF-I Lab Routine Hypothyroidism, unspecified type Class 3 severe obesity with serious comorbidity and body mass index (BMI) of 40.0 to 44.9 in adult, unspecified obesity type Expected: 09/10/2024 (Approximate), Expires: 07/19/2025 [facility] Work Phone: Comment on above: Expected: 09/10/2024 (Approximate), Expires: 07/19/2025 Start: 09-10-2024 End: 07-19-2025 Thyrotropin [Units/volume] in Serum or Plasma Thyroid Stimulating Hormone Lab Routine Hypothyroidism, unspecified type Class 3 severe obesity with serious comorbidity and body mass index (BMI) of 40.0 to 44.9 in adult, unspecified obesity type Expected: 09/10/2024 (Approximate), Expires: 07/19/2025 [facility] Service Area Work Phone: Comment on above: Expected: 09/10/2024 (Approximate), Expires: 07/19/2025 Start: 09-10-2024 End: 07-19-2025 Thyroxine (T4) free [Mass/volume] in Serum or Plasma Thyroxine, Free Lab Routine Hypothyroidism, unspecified type Class 3 severe obesity with serious comorbidity and body mass index (BMI) of 40.0 to 44.9 in adult, unspecified obesity type Expected: 09/10/2024 (Approximate), Expires: 07/19/2025 [facility] Work Phone: Comment on above: Expected: 09/10/2024 (Approximate), Expires: 07/19/2025 Start: 09-03-2024 End: 09-03-2024 Patient encounter procedure 09/03/2024 1:30 PM EDT Office Visit [facility] [address] [place] [id number] Zulma Moe PA [address] [place] [address] Arrived [facility] Comment on above: Arrived Start: 08-22-2024 End: 08-22-2024 Patient encounter procedure 08/22/2024 4:[address] [facility] [address] [place] [phone] [facility] Start: 08-07-2024 End: 08-07-2024 Patient encounter procedure 08/07/2024 10:20 AM EDT Office Visit [facility] [address] [place] [phone] [place] [address] [address] Department of [place] [address] [facility] Start: 07-09-2024 Hemoglobin A1c measurement Diabetes: Hemoglobin A1C [facility] Start: 05-16-2024 Hemoglobin A1c measurement Diabetes: Hemoglobin A1C [facility] Start: 05-11-2024 Screening for malign ant neoplasm of breast Mammogram [facility] Start: 04-10-2024 End: 04-10-2025 CT Adrenal gland WO and W contrast IV CT adrenals w and wo IV contrast Imaging Routine Adrenal nodule Expected: 04/10/2024, Expires: 04/10/2025 [facility] Service Area Work Phone: Comment on above: Expected: 04/10/2024 , Expires: 04/10/2025 Start: 04-10-2024 Influenza vaccination Influenza Vacc ine (#1) [facility] Comment on above: Postponed from 12/31 (Patient Refused) Start: 04-10-2024 End: 04-10-2024 Patient encounter procedure 04/10/2024 8:20 AM EST Office Visit [facility] [address] [place] [address] [place] [address] Department of [place] [address] [facility] Start: 02-21-2024 End: 02-21-2024 Patient encounter procedure 02/21/2024 1:15 PM EDT Office Visit [facility] [address] [place] [phone] [place] [address] [place] [address] [facility] Start: 02-14-2024 End: 02-13-2025 CBC panel - Blood by Automated count CBC Lab Routine Medicare annual wellness visit, subsequent Gastroesophageal reflux disease without esophagitis Lower extremity edema Type 2 diabetes mellitus without complication, without long-term current use of insulin ([facility]) Expected: 02/14/2024 (Approximate), Expires: 02/13/2025 [facility] Comment on above: Expected: 02/14/2024 (Approximate), Expires: 02/13/2025 Start: 02-14-2024 End: 02-13-2025 Comprehensive metabolic 2000 panel - Serum or Plasma Comprehensive metabolic panel Lab Routine Medicare annual wellness visit, subsequent Type 2 diabetes mellitus without complication, without long-term current use of insulin (CMS/HCC) Expected: 02/14/2024 (Approximate), Expires: 02/13/2025 [facility] Comment on above: Expected: 02/14/2024 (Approximate), Expires: 02/13/2025 Start: 02-14-2024 End: 02-13-2025 DXA Skeletal system Views for bone density DEXA bone density Imaging Routine Medicare annual wellness visit, subsequent Estrogen deficiency Expected: 02/14/2024 (Approximate), Expires: 02/13/2025 [facility] Work Phone: Comment on above: Expected: 02/14/2024 (Approximate), Expires: 02/13/2025 Start: 02-14-2024 End: 02-13-2025 Lipid 1996 panel - Serum or Plasma Lipid panel Lab Routine Medicare annual wellness visit, subsequent Type 2 diabetes mellitus without complication, without long-term current use of insulin (CMS/HCC) Mixed hyperlipidemia (CMS/HCC) Expected: 02/14/2024 (Approximate), Expires: 02/13/2025 [facility] Comment on above: Expected: 02/14/2024 (Approximate), Expires: 02/13/2025 Start: 02-14-2024 End: 02-13-2025 Microalbumin/Creatinine panel in random Urine Microalbumin / creatinine, urine ratio Lab Routine Medicare annual wellness visit, subsequent Type 2 diabetes mellitus without complication, without long-term current use of insulin (CMS/HCC) Expected: 02/14/2024 (Approximate), Expires: 02/13/2025 [facility] Comment on above: Expected: 02/14/2024 (Approximate), Expires: 02/13/2025 Start: 02-14-2024 End: 02-13-2025 Thyrotropin [Units/volume] in Serum or Plasma TSH Lab Routine Medicare annual wellness visit, subsequent Acquired hypothyroidism (CMS/HCC) Expected: 02/14/2024 (Approximate), Expires: 02/13/2025 [facility] Comment on above: Expected: 02/14/2024 (Approximate), Expires: 02/13/2025 Start: 02-14-2024 End: 02-14-2024 Patient encounter procedure 02/14/2024 9:00 AM EDT Office Visit [facility] [address] [facility] [address] [place] [address] Cristina Hubbard, CAR FILLER [address] [facility] [address] [place] [address] Arrived [facility] Comment on above: Arrived Start: 01-01-2024 COVID-19 Vaccine ( season) COVID-19 Vaccine ( season) [facility] Start: 01-01-2024 COVID-19 Vaccine ( season) COVID-19 Vaccine () [facility] Start: 01-01-2024 Influenza vaccination Influenza Vacc ine (#1) [facility] Start: 12-15-2023 Medicare Annual Wellness (AWV) Medicare Annual Wellness (AWV) [facility] Start: 09-20-2023 Hemoglobin A1c measurement Diabetes: Hemoglobin A1C [facility] Start: 08-06-2023 Duplex scan veins of upper limb US venous duplex UE LT [facility] Start: 08-06-2023 US Upper extremity v ein - left [facility] Start: 07-15-2023 Screening for malign ant neoplasm of colon [facility] Start: 06-14-2023 ambulatory Ambulatory Facility:Luana Zaragoza Start: 05-11-2023 Screening for malign ant neoplasm of breast Mammogram [facility] Start: 02-22-2023 FUV, Provider: Ronnie Murphy, Status: Pen, Time: 2:45 PM FUV, Provider: Ronnie Murphy, Status: Pen, Time: 2:45 PM CD-Gzshtsgvlnrvvb-J [place] Work Phone: Start: 12-31-2022 Influenza vaccination Influenza Vacc ine (#1) [facility] Start: 08-10-2022 FUV, Provider: Gopi Solis, Status: Pen, Time: 12:50 PM FUV, Provider: Gopi Solis, Status: Pen, Time: 12:50 PM -[facility] 250 DO Work Phone: Start: 07-13-2022 REST ONLY, Provider: CHASITY HHVI NUCLEAR 01,[id number], Status: Pen, Time: 12:30 PM REST ONLY, Provider: CHASITY HHVI NUCLEAR 01,[id number], Status: Pen, Time: 12:30 PM [facility] 250 DO Work Phone: Start: 07-12-2022 STRESSNUC2, Provider : CHASITY HHVI NUCLEAR 01,[id number], Status: Pen, Time: 12:30 PM STRESSNUC2, Provider: CHASITY HHVI NUCLEAR 01,[id number], Status: Pen, Time: 12:30 PM [facility] 250 DO Work Phone: Start: 07-06-2022 COVID-19 Vaccine (4 - Pfizer series) COVID-19 Vaccine (4 - Pfizer series) [facility] Start: 02-09-2022 FUV, Provider: Ronnie Murphy, Status: Pen, Time: 2:50 PM FUV, Provider: Ronnie Murphy, Status: Pen, Time: 2:50 PM OY-Rfeedqdmnxnrer-I [place] Work Phone: Start: 03-31-2021 POV, Provider: Ronnie Murphy, Status: Pen, Time: 3:00 PM POV, Provider: Ronnie Murphy, Status: Pen, Time: 3:00 PM JP-Hoyrglqmjfhydu-D eidman Work Phone: Start: 03-19-2021 SURGC, Provider: Ronnie Murphy, Status: Pen, Time: 9:00 AM SURGCMC, Provider: Ronnie Murphy, Status: Pen, Time: 9:00 AM UJ-Wgurkcknedpgrt-Y [place] Work Phone: Start: 03-03-2021 FUV, Provider: Ronnie Murphy, Status: Pen, Time: 1:00 PM FUV, Provider: Ronnie Murphy, Status: Pen, Time: 1:00 PM LH-Tzwrwnuxuboedf-A uburban Work Phone: Start: 2017 Hepatitis B Vaccines (1 of 3 - Risk 3-dose series) Hepatitis B Vaccines (1 of 3 - Risk 3-dose series) [facility] Start: 2017 RSV High Risk: (Elde rly (60+) or Population) (1 - Risk 60-74 years 1-dose series) RSV High Risk: (Elderly (60+) or Population) (1 - Risk 60-74 years 1-dose series) [facility] Start: 2007 Zoster Vaccines (1 o f 2) Zoster Vaccines (1 of 2) [facility] Start: 1979 DTaP/Tdap/Td Vaccine s (1 - Tdap) DTaP/Tdap/Td Vaccines (1 - Tdap) [facility] Start: 1978 Screening for malign ant neoplasm of cervix [facility] Start: 1976 Hepatitis A Vaccines (1 of 2 - Risk 2-dose series) Hepatitis A Vaccines (1 of 2 - Risk 2-dose series) [facility] Start: 1976 Pneumococcal vaccination Pneumococcal Vaccine (1 of 2 - PCV) [facility] Start: 1976 Urine screening for protein Diabetes: Urine Protein Screening [facility] Start: 1975 Hepatitis C screening Hepatitis C Sc reening [facility] Start: 1967 Diabetic foot examination Diabetes: Foot Exam [facility] Start: 1967 Glaucoma screening Diabetes: R etinopathy Screening [facility] Start: 1963 Pneumococcal Vaccine : 65+ Years (1 - PCV) Pneumococcal Vaccine: 65+ Years (1 - PCV) [facility] Start: 1963 Pneumococcal Vaccine : 65+ Years (1 of 2 - PCV) Pneumococcal Vaccine: 65+ Years (1 of 2 - PCV) [facility] Start: 1958 MMR Vaccines (1 of 1 - Standard series) MMR Vaccines (1 of 1 - Standard series) [facility] Start: 1957 Hemoglobin A1c measurement Diabetes: Hemoglobin A1C [facility] Start: 1957 Lipid panel Lipid Panel [facility] Start: 1957 Medicare Annual Wellness Visit Medicare Annual Wellness Visit (AWV) [facility] Start: 1957 Screening for malign ant neoplasm of colon [facility] Start: 1957 Screening for osteoporosis Bone Density Scan [facility] Start: 1957 Thyroid stimulating hormone measurement TSH Level [facility] Start: 1957 Yearly Adult Physical Yearly Adult P hysical [facility] Comprehensive metabo lic 2000 panel - Serum or Plasma [facility] CT for calcium scori ng WO contrast and CTA W contrast IV Heart and coronary arteries CT heart calcium scoring wo IV contrast Imaging Routine Decreased right ventricular systolic function LVH (left ventricular hypertrophy) Type 2 diabetes mellitus without complication, without long-term current use of insulin (CMS/HCC) Mixed hyperlipidemia (CMS/HCC) Screening for heart disease Ordered: 02/14/2024 [facility] Comment on above: Ordered: 02/14/2024 End: 08-22-2024 CT for calcium scoring WO contrast and CTA W contrast IV Heart and coronary arteries [facility] Service Area Work Phone: Comment on above: Once for 1 Occurrenc es starting 08/22/2024 until 08/22/2024 Patient Education Shoulder Pain (DC) [facility] Work Phone: Patient referral [facility] Work Phone: Heart Transthoracic [facility] Immunizations Immunization Date Immunization Notes Care Provider Bart han 05-11-2022 Modern SARS-CoV-2 Vaccination Cristina Hubbard NP Work Phone: [facility] 05-11-2022 Pfizer COVID-19 Vac Bivalent 30 MCG/0.3ML Intramuscular Suspension Gopi Solis MD Work Phone: [facility] [place] 250 DO Work Phone: 04-02-2021 Pfizer-BioNTech COVID-19 Vacc 30 MCG/0.3ML Intramuscular Suspension Gopi Solis MD Work Phone: [facility] [place] 09-15-2020 Pfizer-BioNTech COVID-19 Vacc 30 MCG/0.3ML Intramuscular Suspension Gopi Solis MD Work Phone: [facility] [place] 08-25-2020 Pfizer-BioNTech COVID-19 Vacc 30 MCG/0.3ML Intramuscular Suspension Gopi Solis MD Work Phone: [facility] [place] 03-01-2015 tetanus toxoid, adsorbed Cristina Hubbard NP Work Phone: [facility] NEGATED: Highlighted row has not occurred!06-03-2023 influenza virus vaccine, unspecified formulation Emiliano Bossharinder [facility] [place] Payers Date Payer Category Payer Medicare [id number] 2023 Medicare [id number] 2023 Unknown [id number] 2023 Miscellaneous or Other [facility] [id number] 2023 Unknown [id number] 2022 Self-pay 2022 Private Health Insurance [id number] 2021 Private Health Insurance COV ID 1959 Private Health Insurance [id number] 1957 Unknown [id number] 2.16.840.1.852074.3.579. 2.356 1957 Unknown [id number] 2.16.840.1.124512.3.579. 2.356 1957 Unknown [id number] 2.16.840.1.517999.3.579. 2.593 1957 Unknown [id number] 2.16.840.1.440058.3.579. 2.593 1957 Unknown [id number] 2.16.840.1.204289.3.579. 2.593 1957 Unknown [id number] 2.16.840.1.222251.3.579. 2.593 1957 Unknown [id number] 2.16.840.1.587758.3.579. 2.727 1957 Unknown [id number] 2.16.840.1.691850.3.579. 2.727 1957 Unknown [id number] 2.16.840.1.275266.3.579. 2.727 1957 Unknown [id number] 2.16.840.1.503210.3.579. 2.727 1957 Unknown [id number] 2.16.840.1.603855.3.579. 2.727 1957 Unknown [id number] 2.16.840.1.392137.3.579. 2.1245 1957 Unknown [id number] 2.16.840.1.046794.3.579. 2.1245 1957 Unknown [id number] 2.16.840.1.429344.3.579. 2.1244 1957 Unknown [id number] 2.16.840.1.124511.3.579. 2.1244 1957 Unknown [id number] 2.16.840.1.410754.3.579. 2.1244 1957 Unknown [id number] 2.16.840.1.471962.3.579. 2.1259 1957 Unknown [id number] 2.16.840.1.612582.3.579. 2.1259 1957 Unknown [id number] 2.16.840.1.111247.3.579. 2.1259 1957 Unknown [id number] 2.16.840.1.597933.3.579. 2.1259 Medicare Medicare- Part A Only [id number] Unknown Unknown [id number] Unknown [id number] 2.16.840.1.599483.19 Unknown HCAP/HFA/FAP Active [id number] Unknown [id number] 2.16.840.1.817129.3.579. 2.531 Unknown [id number] 2.16.840.1.518702.3.579. 2.531 Social History Date Type Detail Facility Start: 02-22-2023 End: 02-07-2025 Never a smoker Never a smoker PX-Ppxufzhvsplgge-Ix gemini ramos Work Phone: Comment on above: pop 3 daily; Start: 02-22-2023 End: 02-07-2025 Sex Assigned At Female [facility] Start: 09-22-2022 End: 02-22-2023 Tobacco smoking status NHIS Never smoked tobacco [facility] Start: 09-22-2022 End: 02-22-2023 Tobacco use and exposure Smokeless tobacco non-user [facility] Work Phone: Start: 1955 Sex Assigned At Not on file U [facility] Work Phone: Start: 02-12-2023 End: 08-22-2024 Exposure to SARS-CoV-2 (event) Not sure [facility] Start: 1955 Sex Assigned At Female F [facility] Tobacco smoking status Never [facility] Start: 10-06-2023 End: 02-07-2025 Alcoholic beverage intake Lifetime non-drinker (finding) [facility] Start: 10-04-2022 Alcohol Comment Caffeine intak e: none [facility] Start: 07-04-2024 Sex Female (finding) [facility] NEGATED: Highlighted row - - DG-Svqhyruijaoqwt-Uj m in [place] [address] Work Phone: Medical Equipment Procedure Code Equipment Code Equipment Origin al Text Equipment Identifier Dates Pen [place] 32G X 4 MM Start: 02-01-2023 Laser Engineerin luana Hwg 500 Fiber Case [id number] Start: 03-19-2021 Comment on above: Description: Convert ed from [facility]. Please see archived information for full log information. Additional Information:per bill only jdr 03/28/2021 1456pm Functional Status Date Assessment Result Facility 02-07-2025 Patient Health Questionnaire 2 item (PHQ-2) [Reported] [facility] 09-03-2024 Patient Health Questionnaire 2 item (PHQ-2) [Reported] [facility] 06-03-2023 Functional Status N/A [facility] NEGATED: Highlighted row Functional performance Functional status health issues are not documented Disease OD-Ordojzhqvexivl-Hv min [place] [id number] Work Phone: Mental Status Date Assessment Result Facility NEGATED: Highlighted row Cognitive function [Interpretation] Cognitive status health issues are not documented Disease SU-Wrfdxdmdotibnv-B dmin [place] [address] Work Phone: Clinical Notes 03-03-2021 to 02-07-2025 SAMANTHA Bañuelos - 02/07/2025 9:00 AM EDT Note Date & Type Note Facility 02-07-2025 History of Presen t illness Narrative Images from the original note were not included. HPI Med Refill Additional comments: Simvastatin Last edited by Jany Nino LPN on 02/07/2025 9:11 AM. Subjective Patient ID: Bette Villafana is a 69 y.o. female who presents for Medicare Annual Wellness Visit Subsequent and Med Refill (Simvastatin). Med Refill Pertinent negatives include no abdominal pain, arthralgias, chest pain, chills, congestion, coughing, fatigue, fever, nausea, numbness, rash, sore throat or vomiting. Medicare Wellness Over the past 2 weeks, how often have you been bothered by any of the following problems? Little interest or pleasure in doing things: Not at all Feeling down, depressed, or hopeless: Not at all Patient Health Questionnaire-2 Score: 0 Over the past 2 weeks, how often have you been bothered by any of the following problems? Trouble falling or staying asleep, or sleeping too much: Not at all Feeling tired or having little energy: Not at all Poor appetite or overeating: Not at all Feeling bad about yourself - or that you are a failure or have let yourself or your family down: Not at all Trouble concentrating on things, such as reading the newspaper or watching television: Not at all Moving or speaking so slowly that other people could have noticed? Or the opposite - being so fidgety or restless that you have been moving around a lot more than usual.: Not at all Thoughts that you would be better off or hurting yourself in some way: Not at all Patient Health Questionnaire-9 Score: 0 [place] Fall Risk History of Falling, Immediate or Within 3 Months: No Health Risk Assessment Form Do you need help eating, bathing, using the toilet, dressing, or getting around your home?: No Can you prepare your own meals?: Yes Can you do your own housework without help?: Yes Can you shop for groceries or clothes without help?: Yes Do you exercise for about 20 minutes 3 or more days a week?: No How confident are you that you can control and manage most of your health problems?: Very confident Can you mange your money, credit cards and accounts, pay bills and taxes?: Yes Vision Screening: Yes, no gross abnormalities Hearing Screening: Yes, no gross abnormalities Cognitive Screening Self Assessment: No overt cognitive deficiency is apparent by direct observation Three Word Registration: Leader, Season, Table Clock Drawing: Normal Clock - 2 Three Word Recall: All 3 words correct - 3 Total Score (0-5 Points): 5 Pain Assessment Pain Score: 0 - No pain Advance Care Planning Do you have a living will?: No (refuses living will paperwork) Do you have a medical power of plan examiner?: Yes Current Outpatient Medications on File Prior to Visit Medication Sig Dispense Refill omeprazole (PriLOSEC) [address] capsule Take 20 mg by mouth in the morning and 20 mg in the evening. Take before meals. (Patient taking differently: Take 20 mg by mouth in the morning. Take before meals.) cholecalciferol (Vitamin D-3) 50 MCG (1999 UT) capsule Take 2,000 Units by mouth Daily levothyroxine (Synthroid, Levoxyl) 100 MCG tablet TAKE 1 TABLET BY MOUTH EVERY DAY IN THE MORNING ON EMPTY STOMACH FOR 90 DAYS 90 tablet 4 LORazepam (Ativan) 0.5 MG tablet Take 0.5 mg by mouth Daily as needed for anxiety Respiratory Therapy Supplies (CareTouch CPAP & BIPAP Hose) misc 1 Dose at bedtime 1 each 1 Respiratory Therapy Supplies (Reusable Comfortseal Mask-MED) misc 1 Device at bedtime Mirage Activa LT Mask [id number] for CPAP 1 each 1 risperiDONE (RisperDAL) 2 MG tablet Take 2 mg by mouth in the morning. semaglutide (Ozempic, 0.25 or 0.5 MG/DOSE,) 2 MG/1.5ML solution pen-injector Inject 0.25 mg under the skin 1 (one) time per week. venlafaxine XR (Effexor XR) 75 MG 24 hr capsule Take 75 mg by mouth in the morning and 75 mg before bedtime. [DISCONTINUED] meclizine (Antivert) 25 MG tablet Take 1 tablet (25 mg) by mouth 3 (three) times a day as needed for dizziness 30 tablet 0 [DISCONTINUED] metFORMIN (Glucophage) 500 MG tablet TAKE 1 TABLET BY MOUTH EVERY DAY WITH A MEAL 100 tablet 3 [DISCONTINUED] simvastatin (Zocor) 40 MG tablet TAKE 1 TABLET BY MOUTH EVERY DAY IN THE EVENING FOR 90 DAYS 100 tablet 3 No current facility-administered medications on file prior [...] glucose tolerance test Acute sinusitis Anemia Asthma (HCC) Basal cell carcinoma (BCC) of right cheek 01/02/2021 Mohs Cholecystitis 05/16/2023 Cholelithiasis 05/15/2023 Depression Disease of trachea and bronchus Disease of trachea and bronchus Gangrenous cholecystitis 09/03/2024 GERD (gastroesophageal reflux disease) Hyperlipidemia Hypertension Idiopathic subglottic tracheal stenosis 2008 Obesity Thyroid disease Past Surgical History: Procedure Laterality Date CHOLECYSTECTOMY 05/16/2023 EXCISION HIDRADENITIS OF INGUINAL / UMBILICAL AREA FEMINIZING AUGMENTATION MAMMOPLASTY Bilateral HERNIA REPAIR 1963 OTHER SURGICAL HISTORY 04/2016 Laryngoscopy, Bronchoscopy & Tracheal Dilation; 2010 and 03/19/2021 OTHER SURGICAL HISTORY 2008 laser/dilation;Disease:subglottic/trac heal stenosis; 2011 [place] BRNCHSC W/TRACHEAL/BRONCHIAL DILAT/CLSD RDCTJ FX 2007 endoscopy w/ tracheal dilitation Visit Vitals BP 118/76 Pulse 76 Resp 16 Ht 5' 5 Wt 264 lb 3.2 oz SpO2 96% BMI 43.97 kg/m Smoking Status Never BSA 2.35 m Review of Systems Constitutional: Negative for chills, fatigue and fever. HENT: Negative for congestion, ear pain, rhinorrhea and sore throat. Eyes: Negative for pain, discharge and visual disturbance. Respiratory: Negative for cough, shortness of breath and wheezing. Cardiovascular: Negative for chest pain, palpitations and leg swelling. Gastrointestinal: Negative for abdominal pain, constipation, diarrhea, nausea and vomiting. Genitourinary: Negative for difficulty urinating, dysuria and frequency. Musculoskeletal: Negative for arthralgias and back pain. Skin: Negative for rash. Neurological: Negative for dizziness and numbness. Psychiatric/Behavioral: Negative for sleep disturbance. The patient is not nervous/anxious. Objective Physical Exam Constitutional: General: She is not in acute distress. Appearance: She is well-developed. She is obese. HENT: Head: Normocephalic and atraumatic. Right Ear: Tympanic membrane normal. Left Ear: There is impacted cerumen. Ears: Comments: Mild cerumen on right Nose: Nose normal. Mouth/Throat: Mouth: Mucous membranes are moist. Pharynx: No posterior oropharyngeal erythema. Eyes: General: No scleral icterus. Extraocular Movements: Extraocular movements intact. Conjunctiva/sclera: Conjunctivae normal. Pupils: Pupils are equal, round, and reactive to light. Neck: Vascular: No carotid bruit. Cardiovascular: Rate and Rhythm: Normal rate and regular rhythm. Heart sounds: Normal heart sounds. No murmur heard. Pulmonary: Effort: Pulmonary effort is normal. No respiratory distress. Breath sounds: No wheezing, rhonchi or rales. Comments: Coarse lung sounds Abdominal: General: Bowel sounds are normal. There is no distension. Palpations: Abdomen is soft. Tenderness: There is no abdominal tenderness. There is no guarding. Musculoskeletal: General: No swelling or deformity. Normal range of motion. Cervical back: Normal range of motion and neck supple. No tenderness. Skin: General: Skin is warm and dry. Capillary Refill: Capillary refill takes less than 2 seconds. Findings: No rash. Neurological: General: No focal deficit present. Mental Status: She is alert and oriented to person, place, and time. Cranial Nerves: No cranial nerve deficit. Sensory: No sensory deficit. Motor: No weakness. Gait: Gait normal. Deep Tendon Reflexes: Reflexes normal. Psychiatric: Mood and Affect: Mood normal. Behavior: Behavior normal. Thought Content: Thought content normal. Judgment: Judgment normal. Clinisync Result Encounter on 02/02/2025 Component Date Value Ref Range Status [facility] WBC 02/02/2025 7.6 4.0 - 11.0 10 3/uL Final [facility] RBC 02/02/2025 4.17 (L) 4.20 - 5.40 10 6/uL Final [facility] HGB 02/02/2025 12.5 12.0 - 16.0 g/dL Final [facility] HCT 02/02/2025 37.8 36.0 - 48.0 % Final [facility] MCV 02/02/2025 90.6 81.0 - 99.0 fL Final [facility] MCH 02/02/2025 30.0 26.7 - 34.0 pg Final [facility] MCHC 02/02/2025 33.1 29.9 - 35.2 g/dL Final [facility] RDW 02/02/2025 12.8 11.0 - 15.0 % Final [facility] PLT 02/02/2025 324 150 - 450 10 3/uL Final [facility] MPV 02/02/2025 9.8 9.5 - 13.5 fL Final NEUTROPHILS PERCENT AUTO 02/02/2025 70.2 43.0 - 75.0 % Final LYMPHOCYTES PERCENT AUTO 02/02/2025 20.4 (L) 20.5 - 60.0 % Final MONOCYTES PERCENT AUTO 02/02/2025 6.4 1.7 - 12.0 % Final [facility] EO % 02/02/2025 1.0 0.9 - 7.0 % Final BASOPHILS PERCENT AUTO 02/02/2025 0.7 0.2 - 2.0 % Final IMMATURE GRANULOCYTES PCT AUTO 02/02/2025 1.3 (H) 0.0 - 0.5 % Final NEUTROPHILS ABSOLUTE AUTO 02/02/2025 5.4 1.4 - 6.5 10 3/uL Final LYMPHOCYTES ABSOLUTE AUTO 02/02/2025 1.6 1.2 - 3.8 10 3/uL Final MONOCYTES ABSOLUTE AUTO 02/02/2025 0.5 0.3 - 0.8 10 3/uL Final [facility]H EO # 02/02/2025 0.1 0.0 - 0.7 10 3/uL Final BASOPHILS ABSOLUTE AUTO 02/02/2025 0.1 0.0 - 0.1 10 3/uL Final IMMATURE GRANULOCYTES ABS AUTO 02/02/2025 0.10 (H) 0.00 - 0.03 10 3/uL Final MICROALBUMIN URINE RANDOM 02/02/2025 <1.3 <=30.0 mg/dL Final CREATININE URINE RANDOM 02/02/2025 193.94 20.00 - 300.00 mg/dL Final GLYCOHEMOGLOBIN A1C 02/02/2025 6.4 (H) 4.5 - 6.2 % Final Comment: ADA RECOMMENDED LIMIT 4.0 - 6.0 ADA THERAPEUTIC TARGET < 7.0 ACTION SUGGESTED > 7.0 ESTIMATED AVERAGE GLUCOSE 02/02/2025 137 mg/dL Final SODIUM 02/02/2025 137 136 - 145 mmol/L Final POTASSIUM 02/02/2025 4.2 3.5 - 5.1 mmol/L Final CHLORIDE 02/02/2025 101 98 - 107 mmol/L Final CARBON DIOXIDE 02/02/2025 27.9 21.0 - 32.0 mmol/L Final ANION GAP 02/02/2025 12.3 Final GLUCOSE 02/02/2025 115 (H) 74 - 106 mg/dL Final BLOOD UREA NITROGEN 02/02/2025 11.0 7.0 - 18.0 mg/dL Final CREATININE 02/02/2025 0.75 0.55 - 1.02 mg/dL Final TBH EGFR-AF [place] 02/02/2025 >60 >=60 mL/min/1.73m 2 Final [facility] EGFR-NON AF [place] 02/02/2025 >60 >=60 mL/min/1.73m 2 Final BUN CREATININE RATIO 02/02/2025 14.7 Final CALCIUM 02/02/2025 9.0 8.5 - 10.1 mg/dL Final BILIRUBIN TOTAL 02/02/2025 0.6 0.2 - 1.0 mg/dL Final ASPARTATE AMINO TRANSFERASE 02/02/2025 10 (L) 15 - 37 U/L Final ALANINE AMINOTRANSFERASE 02/02/2025 25 14 - 59 U/L Final ALKALINE PHOSPHATASE 02/02/2025 100 46 - 116 U/L Final TOTAL PROTEIN 02/02/2025 7.6 6.4 - 8.2 g/dL Final ALBUMIN LEVEL 02/02/2025 3.7 3.4 - 5.0 g/dL Final GLOBULIN 02/02/2025 3.9 g/dL Final ALBUMIN GLOBULIN RATIO 02/02/2025 0.9 Final TRIGLYCERIDES 02/02/2025 160 (H) <=150 mg/dL Final CHOLESTEROL 02/02/2025 169 <=200 mg/dL Final HDL CHOLESTEROL 02/02/2025 53 40 - 60 mg/dL Final Comment: > or =60 mg/dl - LOW CARDIOVASCULAR RISK <40 mg/dl - HIGH CARDIOVASCULAR RISK LDL CHOLESTEROL CALCULATED 02/02/2025 84.0 mg/dL Final Comment: <100 mg/dl OPTIMAL 100-129 mg/dl NEAR OR ABOVE OPTIMAL 130-159 mg/dl BORDERLINE HIGH 160-189 mg/dl HIGH >190 mg/dl VERY HIGH VLDL CHOLESTEROL 02/02/2025 32.0 mg/dL Final CHOL HDL RATIO 02/02/2025 3.2 Final Comment: 3.3 - 4.4 LOW RISK 4.4 - 7.1 AVERAGE RISK 7.1 - 11.0 MODERATE RISK >11.0 HIGH RISK Assessment & Plan 1. Medicare annual wellness visit, subsequent (Primary) Reviewed all relevant preventative screenings with the patient in detail. Medicare Wellness form completed and will be scanned into patient's chart. All needed testing was ordered. Will continue with yearly Medicare Wellness exams. 2. ACP (advance care planning) Patient willing to discuss ACP. Pt has DPOA in place. 3. Obstructive sleep apnea Patient is compliant with BiPAP usage and perceives benefit from treatment. Treatment has been effective in controlling the patient's symptoms of Sleep Apnea. Will continue to monitor with routine follow up appointments. 4. BiPAP (biphasic positive airway pressure) dependence Patient is compliant with BiPAP usage and perceives benefit from treatment. Treatment has been effective in controlling the patient's symptoms of Sleep Apnea. Will continue to monitor with routine follow up appointments. 5. Dyspnea on exertion The patient is seeing a medical technologist clinical for this condition, treatment is deferred to that specialist. Correspondence from that specialist and any available testing were reviewed during today's visit. 6. Tracheal stenosis The patient is seeing a medical technologist clinical for this condition, treatment is deferred to that specialist. Correspondence from that specialist and any available testing were reviewed during today's visit. 7. Abnormal electrocardiogram The patient is seeing a medical technologist clinical for this condition, treatment is deferred to that specialist. Correspondence from that specialist and any available testing were reviewed during today's visit. 8. Decreased right ventricular systolic function The patient is seeing a medical technologist clinical for this condition, treatment is deferred to that specialist. Correspondence from that specialist and any available testing were reviewed during today's visit. 9. LVH (left ventricular hypertrophy) The patient is seeing a medical technologist clinical for this condition, treatment is deferred to that specialist. Correspondence from that specialist and any available testing were reviewed during today's visit. 10. 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 Correspondence from that specialist and any available testing were reviewed during today's visit. 11. Adrenal abnormality (HCC) The patient is seeing a medical technologist clinical for this condition, treatment is deferred to that specialist. Correspondence from that specialist and any available testing were reviewed during today's visit. 12. Esophageal dysphagia This is a chronic medical condition that is stable since last assessment. No changes in treatment are suggested at this time. Advised pt that our office can refill the Omeprazole for her when she needs her next refill. 13. Gastroesophageal reflux disease without esophagitis This is a chronic medical condition that is stable since last assessment. No changes in treatment are suggested at this time. Continue Omeprazole as prescribed. 14. Fatty pancreas (HCC) The patient is seeing a medical technologist clinical for this condition, treatment is deferred to that specialist. Correspondence from that specialist and any available testing were reviewed during today's visit. 15. Hepatomegaly The patient is seeing a medical technologist clinical for this condition, treatment is deferred to that specialist. Correspondence from that specialist and any available testing were reviewed during today's visit. 16. Intra-abdominal lymphadenopathy This is a chronic medical condition that is stable since last assessment. Will continue to monitor. 17. Tubular adenoma of colon History of, will continue to monitor with routine screenings. 18. Lower extremity edema This is a chronic medical condition that is stable since last assessment. Elevate legs as needed. Will continue to monitor. 19. Acquired hypothyroidism The patient is seeing a medical technologist clinical for this condition, treatment is deferred to that specialist. Correspondence from that specialist and any available testing were reviewed during today's visit. 20. Type 2 diabetes mellitus with other specified complication, without long-term current use of insulin ([facility]) Advised pt that her recent HgbA1c has increased to 6.4, but does remain controlled. She is currently on Ozempic. Will recheck in 3-6 months. 21. Morbid obesity with BMI of 40.0-44.9, adult ([facility]) Patient has lost 4 pounds since her last appointment. Encouraged portion control, decrease simple sugars and carbohydrates, gradually increase activity level. Aim for continued, gradual steady weight loss. 22. Thyrotoxicosis without thyroid storm, unspecified thyrotoxicosis type The patient is seeing a medical technologist clinical for this condition, treatment is deferred to that specialist. Correspondence from that specialist and any available testing were reviewed during today's visit. 23. Vitamin D deficiency This is a chronic medical condition that is stable since last assessment. No changes in treatment are suggested at this time. Continue with Vitamin D supplement daily. 24. Allergic rhinitis due to pollen, unspecified seasonality This is a chronic medical condition that is stable since last assessment. No concerns at this time. Will monitor. 25. Anxiety and depression This is a chronic medical condition that is stable since last assessment. No changes in treatment are suggested at this time. Continue Venlafaxine and Risperidone as prescribed. 26. Screening for malignant neoplasm of colon Provided pt with referral to have updated screening Colonoscopy. Will continue to monitor routinely. - Ambulatory referral to General Surgery; Future 27. Bipolar 1 disorder, depressed, partial remission (HCC) This is a chronic medical condition that is stable since last assessment. No changes in treatment are suggested at this time. Continue Venlafaxine and Risperidone as prescribed. 28. Estrogen deficiency Provided pt with order to have updated DEXA. Will continue to monitor every two years. - DEXA bone density; Future 29. History of basal cell carcinoma The patient is seeing a medical technologist clinical for this condition, treatment is deferred to that specialist. Correspondence from that specialist and any available testing were reviewed during today's visit. 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 Continue Simvastatin as prescribed. 31. Mixed hyperlipidemia Will continue to monitor with routine labs. Continue Simvastatin as prescribed. - simvastatin (Zocor) 40 MG tablet; Take 1 tablet (40 mg) by mouth at bedtime Dispense: 100 tablet; Refill: 3 Follow up in about 6 months (around 08/08/2025) for Diabetes. KAMAR SoteloC documented in this encounter [facility] 11-07-2024 Evaluation note Diagnosis Onset Date Resolution Abnormal weight gain acute November 07, 2024 1:36pm Acid reflux acute November 07 1:36pm Adrenal abnormality acute November 07, 2024 1:36pm Anxiety and depression acute Ju 2024 1:36pm Bipolar disorder acute October 1:36pm [...] (obstructive sleep apnea) acute December 13 9:13am [facility] Work Phone: 1(962) 398-444107-09-2025 Evaluation note* Diagnosis Onset Date Resolution Status Admit Date Abnormal weight gain acute November 07, 2024 1:36pm Acid reflux acute November 07 1:36pm Adrenal abnormality acute November 07, 2024 1:36pm Anxiety and depression acute 2024 1:36pm Bipolar disorder acute October 1:36pm [...] 07, 2024 1:36pm Anxiety and depression acute sherrill 2024 9:13am BMI 45.0-49.9, adult acute 2024 [...] Se ptember 2024 1:00pm Bipolar disorder acute Decembe r 2024 1:00pm BMI 45.0-49.9, adult acute Dec 1:00pm Diabetes type 2, uncontrolled acute January 02, 2025 1:00pm Fatigue acute January 02, 2025 1:00pm Fatty pancreas acute January 02, 2025 1:00pm Hyperlipidemia acute January 02, 2025 1:00pm Hypothyroid acute December 1:00pm Obesity acute January 02, 2025 1:00pm RYANNE (obstructive sleep apnea) acute January 02, 2025 1:00pm Vitamin D deficiency acute Dec 1:00pm [facility] Work Phone: 1(374) 173-630306-10-2025 Telephone encounter Note* Telephone Encounter - Christina Mercer MA - 10/09/2024 10:24 AM EDT Faxed order and paperwork [facility] [id number] Miscellaneous Notes* Telephone Encounter - Christina Mercer MA - 10/09/2024 10:24 AM EDT Faxed order and paperwork * Telephone Encounter - Justine Bell - 10/09/2024 9:54 AM EDT Patient is due for a new rx for sleep machine hose/mask to [employer] fax number is [phone] [id number] Telephone encounter Note* Telephone Encounter - Justine Bell - 10/09/2024 9:54 AM EDT Patient is due for a new rx for sleep machine hose/mask to [employer] fax number is [phone] [id number] Evaluation note* Diagnosis Onset Date Resolution Status [...] 2024 1:36pm Anxiety and depression acute 2024 1:36pm Bipolar disorder acute October 1:36pm [...] D deficiency acute November 07, 2024 1:36pm [facility] Work Phone: 1(984) 594-657105-21-2025 Evaluation note* Diagnosis Onset Date Resolution Status [...] 2024 1:36pm Anxiety and depression acute 2024 1:36pm Bipolar disorder acute October 1:36pm [...] acute 2024 9:13am BMI 45.0-49.9, adult acute Novu 2024 9:13am Dependent edema acute December 132024 9:13am Diabetes type 2, uncontrolled acute December 13, 2024 9:13am GOETZ (dyspnea on exertion) acute December 13, 2024 9:13am Exercise intolerance acute Augu 2024 9:13am Hyperlipidemia acute November 9:13am Hypothyroid acute December 13, 2024 9:13am RYANNE (obstructive sleep apnea) acute December 13, 2024 9:13am [facility] Work Phone: 1(554) 220-404705-20-2025 History of Present illness Narrative* Cristina Hubbard [...] mask and supplies , pt went to [facility] sleep study.Wearing every night. Mask is 6 months old and pt is in need of a new mask. Pt is using a Mirage Activa LT Mask [id number]. Feels well rested in the morning. No [...] OTHER SURGICAL HISTORY 2008 laser/dilation;Disease:subglottic/tracheal stenosis; [place] BRNCHSC W/TRACHEAL/BRONCHIAL DILAT/CLSD RDCTJ FX 2007 endoscopy [...] Device at bedtime Mirage Activa LT Mask [id number] for CPAP Pt needs supplies. Her CPAP is still beneficial for her. The company that she was using told her that she needed to be seen in the office. No follow-ups on file. documented in this encounterSaint [facility] [id number] History of Present illness Narrative* SAMANTHA Bañuelos [...] OTHER SURGICAL HISTORY 2008 laser/dilation;Disease:subglottic/tracheal stenosis; 2011 [place] BRNCHSC W/TRACHEAL/BRONCHIAL DILAT/CLSD RDCTJ FX 2007 endoscopy [...] acute otitis externa of right ear - fdurxitv-jovftbyhk-czlnywgzvjlpcy (Cortisporin) 3.5-62718-9 otic suspension; Administer 3 drops into the [...] for Medicare Wellness Visit. documented in this encounterSaint [facility] [id number] Evaluation + Plan note* Assessment & Plan Note - Dominic Saldana MD - 07/19/2024 9:40 AM EDTAssociated Problem(s): Hypothyroidism Orders: Thyroid Stimulating Hormone; Future Thyroxine, Free; Future IGF-I; Future [facility] Work Phone: 1(118) 905-413603-20-2025 Evaluation + Plan note* Assessment & Plan Note - Dominic Saldana MD - 07/19/2024 9:40 AM EDTAssociated Problem(s): Diabetes (Multi) [facility] Work Phone: 1(894) 369-686003-20-2025 History of Present illness Narrative* Dominic Saldana [...] TSH 3.61 04/10/2024 No results found for: ALBUR , [id number] Health Maintenance: Assessment/Plan Bette Villafana is a 69 y.o. female who presents for follow up for Type 2 diabetes mellitus and hypothyroidism The initial diagnosis of diabetes was made in 2022. At diagnosis it was 6.6%. One brother had kidney cancer and had to take the adrenal glands both out Last A1c in Dec was 5.9% In 2021 started ozempic in [...] current use of insulin documented in this [facility] Work Phone: 1(540) 699-509103-20-2025 Instructions* Patient Instructions* Dominic Saldana MD - [...] RTC in 1 year [facility]: 1(148) 974-789103-20-2025 Miscellaneous Notes* Assessment & Plan Note - Dominic Saldana MD - 07/19/2024 9:40 AM EDTAssociated Problem(s): Hypothyroidism Orders: Thyroid Stimulating Hormone; Future Thyroxine, Free; Future IGF-I; Future * Assessment & Plan Note - Dominic Saldana MD - 07/19/2024 9:40 AM EDTAssociated Problem(s): Diabetes (Multi) [facility]: 1(367) 254-271512-10-2024 Evaluation + Plan note* Assessment & Plan Note - Dominic Saldana MD - 04/10/2024 8:20 AM ESTAssociated Problem(s): Hypothyroidism Orders: Thyroid Stimulating Hormone; Future Thyroid Peroxidase (TPO) Antibody; Future Thyroxine, Free; Future [facility] Work Phone: 1(518) 725-915812-10-2024 Evaluation + Plan note* Assessment & Plan Note - Dominic Saldana MD - 04/10/2024 8:20 AM ESTAssociated Problem(s): Diabetes (Multi) Orders: Hemoglobin A1C; Future [facility] Work Phone: 1(577) 746-136712-10-2024 History of Present illness Narrative* Dominic Saldana [...] times per day. Diet: terrible works in [employer] Breakfast: Cheerios 1/2 bowl 1 % [...] TSH No results found for: ALBUR , [id number] Health Maintenance: Assessment/Plan Bette Villafana is a [...] Hemoglobin A1C; Future . documented in this [facility] Work Phone: 1(302) 328-630312-10-2024 Instructions* Patient Instructions* Dominic Saldana MD - [...] for at least 7hrs [facility] Work [facility]: 1([phone]) 972-108912-10-2024 Miscellaneous Notes* Assessment & Plan Note - Dominic Saldana MD - 04/10/2024 8:20 AM ESTAssociated Problem(s): Hypothyroidism Orders: Thyroid Stimulating Hormone; Future Thyroid Peroxidase (TPO) Antibody; Future Thyroxine, Free; Future * Assessment & Plan Note - Dominic Saldana MD - 04/10/2024 8:20 AM ESTAssociated Problem(s): Diabetes (Multi) Orders: Hemoglobin A1C; [facility] Phone: 1(545) 712-404411-04-2024 Telephone encounter Note* Telephone Encounter - Justine Bell - 03/05/2024 3:25 PM EST [facility] office called and stated that they tried to contact the patient to schedule appt for the referral that was sent to them but tired to two weeks to contact and is unable to get ahold of them. [id number] Miscellaneous Notes* Telephone Encounter - Justine Bell - 03/05/2024 3:25 PM EST [facility] office called and stated that they tried to contact the patient to schedule appt for the referral that was sent to them but tired to two weeks to contact and is unable to get ahold of them. documented in this encounterSaint [facility] [id number] History of Present illness Narrative* Ronnie Murphy [...] evidence of any inflammation. documented in this [facility] Work Phone: 1(293) 705-844310-15-2024 History of Present illness Narrative* Shantel Bahena LPN - 02/14/2024 9:00 AM EDT HPI Med Refill Additional comments: Metformin, levothyroxine,[facility]vastain--[facility] Last edited by Shantel Bahena LPN on 02/14/2024 9:06 AM. * Cristina Hubbard NP - 02/14/2024 9:00 AM EDT Images from [...] Do you have a medical power of plan examiner?: No Objective : BP 128/66 Pulse 81 [...] time. 19. Routine general medical examination at [facility] care facility Reviewed all relevant preventative [...] on February 14, 2024 documented in this encounterSaint [facility] [id number] Evaluation note* Encounter Date Diagnosis Assessment Notes [...] was counseling done by myself, Moira NICHOLS. [employer] Other 10-24-2023 History of Present illness Narrative* [...] evidence of any inflammation. [facility] Work Phone: 1([phone]) 350-219410-17-2023 Evaluation note* Encounter Date Diagnosis Assessment Notes [...] other veggie/fruit w/ dinner; PARTIALLY MET, ON-GOING [employer] Other 10-03-2023 Evaluation note* Encounter Date Diagnosis Assessment Notes Treatment Notes Treatment Clinical Notes Jan, Obesity (ICD-10 - E66.9) [facility] st sent wrong diagnosis code, then sent to non preferred pharmacy. [facility] Jan, BMI 40.0-44.9, adult (ICD-10 - [...] was counseling done by myself, Moira NICHOLS. [employer] Other 08-23-2023 Evaluation note* Encounter Date Diagnosis [...] beans, salad or other veggie/fruit w/ dinner [employer] Other 06-20-2023 Evaluation note* Encounter Date Diagnosis [...] patient set personal goal using given handout. [employer] Other 06-20-2023 Evaluation note* Encounter Date Diagnosis Assessment Notes Treatment Notes Treatment Clinical Notes Sep, Obesity (ICD-10 - E66.9) martin jaquez sent wrong diagnosis code, then sent to non preferred pharmacy. Sent to [facility] per [facility] preferred. Sep, BMI 40.0-44.9, adult (ICD-10 - [...] was counseling done by myself, Moira NICHOLS. [employer] Other 03-28-2023 Evaluation note* Encounter Date Diagnosis Assessment Notes Treatment Notes Treatment Clinical Notes Jun, Obesity (ICD-10 - E66.9) [facility] sent wrong diagnosis code, then sent to non preferred pharmacy. Sent to [facility] per [facility] preferred. Jun, BMI 40.0-44.9, adult (ICD-10 [...] was counseling done by myself, Moira NICHOLS. [employer] Other 02-14-2023 Evaluation note* Encounter Date Diagnosis [...] patient set personal goal using given handout. [employer] Other 01-31-2023 Evaluation note* Encounter Date Diagnosis Assessment Notes Treatment Notes Treatment Clinical Notes May, Obesity (ICD-10 - E66.9) first sent wrong diagnosis code, then sent to non preferred pharmacy. Sent to [facility] per [facility] preferred. May, BMI 40.0-44.9, adult (ICD-10 [...] was counseling done by myself, Moira NICHOLS. [employer] Other 01-31-2023 History of Present illness Narrative* [...] * 5. Follow-up after testing is done [facility] [employer] Work Phone: 1(197) 679-530511-02-2021 History of Present illness NarrativeThis patient presented [...] and is very pleased with the results. [facility] Work Phone: [phone]) 624-654511-02-2021 History of Present illness NarrativeThis patient presented [...] today for follow-up. Her breathing has remained stable.[facility] Work Phone: chinf complaint Narrative - ReportedBETTE VILLAFANA is being seen for a consultation for [facility].-[facility] 250 DO Work Phone: Evaluation + Plan note No data available for this section [facility] Future Appointments Appointment Date:06/14/2023 02:20:00 PM Scheduled Provider:Mayito YANG MD Location:[facility] Appointment Type:[address] General Surgery [place] Evaluation noteNo InformationNort [employer] Other Evaluation note* Diagnosis Tracheal stenosis- Primary Other diseases of trachea and bronchus documented in [facility] Work Phone: Evaluation noteNo assessment information available [facility] Work Phone: Evaluation note* Diagnosis Onset Date Resolution Status Abnormal CT of the abdomen a cute Acid reflux acute Adrenal abnormality acute Anxiety and depression acute Bipolar disorder acute BMI 40.0-44.9, adult acute Diabetes type 2, uncontrolled acute Fatigue acute Fatty pancreas acute Hyperlipidemia acute Hypertriglyceridemia acute Hypothyroid acute Obesity acute RYANNE (obstructive sleep apnea) acute Snores acute Vitamin D deficiency acute [facility] Work Phone: Evaluation note* Diagnosis Onset Date [...] deficiency acute Allergies acute Sore throat noneactive [facility] Work Phone: Evaluation note* Diagnosis Onset [...] acute Snores acute Vitamin D deficiency acute [facility] Work Phone: Evaluation note* Diagnosis Onset [...] acute Snores acute Vitamin D deficiency acute [facility] Work Phone: Evaluation note* Diagnosis Medicare [...] colon Lower extremity edema Edema Acquired hypothyroidism ([facility]) Unspecified hypothyroidism Morbid obesity with BMI of 40.0-44.9, adult ([facility]) Type 2 diabetes mellitus without complication, without [...] specified complication (CMS/HCC) documented in this encounter [facility] HealthcareEvaluation note* Diagnosis Tracheal stenosis- Primary Other diseases of trachea and bronchus Gastroesophageal reflux disease without esophagitis Esophageal reflux documented in [facility] Work Phone: Evaluation note* Diagnosis Adrenal nodule- Primary Benign neoplasm of adrenal gland Hypothyroidism, unspecified type Type 2 diabetes mellitus without complication, without long-term current use of insulin (Multi) documented in this encounter [facility] Work Phone: Evaluation note* Diagnosis Adrenal [...] use of insulin documented in this encounter [facility] Work Phone: Evaluation note* Diagnosis Adrenal [...] ill-defined heart diseases documented in this encounter [facility] Work Phone: Evaluation note* Diagnosis Right ear impacted cerumen- Primary Impacted cerumen Dizziness Dizziness and giddiness Other infective acute otitis externa of right ear documented in this encounter [facility]* Diagnosis BiPAP (biphasic positive airway pressure) dependence- Primary Dependence on other enabling machine documented in this encounter [facility] HealthcareEvaluation note* Diagnosis Medicare annual wellness visit, subsequent- Primary ACP (advance care planning) Other specified counseling Obstructive sleep apnea Obstructive sleep apnea (adult) (pediatric) BiPAP (biphasic positive airway pressure) dependence Dependence on other enabling machine Dyspnea on exertion Other dyspnea and respiratory abnormality Tracheal stenosis Other diseases of trachea and bronchus Abnormal electrocardiogram Nonspecific abnormal electrocardiogram (ECG) (EKG) Decreased right ventricular systolic function LVH (left ventricular hypertrophy) Cardiomegaly Mitral valve insufficiency and aortic valve stenosis Adrenal abnormality (HCC) Esophageal dysphagia Dysphagia, pharyngoesophageal phase Gastroesophageal reflux disease without esophagitis Esophageal reflux Fatty pancreas (HCC) Hepatomegaly Intra-abdominal lymphadenopathy Tubular adenoma of colon Benign neoplasm of colon Lower extremity edema Edema Acquired hypothyroidism Unspecified hypothyroidism Type 2 diabetes mellitus with other specified complication, without long-term current use of insulin (HCC) Morbid obesity with BMI of 40.0-44.9, adult ([facility]) Thyrotoxicosis without thyroid storm, unspecified thyrotoxicosis type Vitamin D deficiency Allergic rhinitis due to pollen, unspecified seasonality Anxiety and depression Screening for malignant neoplasm of colon Bipolar 1 disorder, depressed, partial remission ([facility]) Estrogen deficiency Other ovarian failure History of basal cell carcinoma Personal history of other malignant neoplasm of skin Lipoprotein deficiency disorder Lipoprotein deficiencies Mixed hyperlipidemia documented in this encounter [facility]History general Narrative - Reported* Type Description Date Medical History thyroid disease Medical History Cholesterol Medical History depression Medical History acid reflux Medical History bipolar Surgical History breast reduction Surgical History throat surgery Surgical History hernia Hospitalization History see surgical hx [employer] Other [employer] general Narrative - Reported* Type Description Date Medical History thyroid disease Medical History Cholesterol Medical History depression Medical History acid reflux Medical History bipolar Surgical History breast reduction Surgical History throat surgery Surgical History hernia Hospitalization History see surgical hx Hospitalization History [facility] 07/2022 [employer] Other HisSyntarga general Narrative - Reported* Type Description Date Medical History thyroid disease Medical History Cholesterol Medical History depression Medical History acid reflux Medical History bipolar Medical History gall bladder disease Surgical History breast reduction Surgical History throat surgery Surgical History hernia Surgical History cholecystectomy-[facility] 05-16-2023 Hospitalization History see surgical hx Hospitalization History [facility] 07/2022 [employer] Other History of Present illness NarrativeThis patient [...] time it feels like it is somewhat mgegmsvfKX[facility] Work Phone: Hospital Discharge instructions No data available for this section [facility] Additional Instructions Follow-up with your primary care doctor Return to ED if develop worsening symptoms or [facility] Work Phone: Progress note No data available for this section [facility] [place] Reason for referral (narrative)No reason for referral information availableProtestant [facility] Work Phone: Reason for visit Narrative* Imaging (Routine) - Authorized Specialty Diagnoses / Procedures Referred By Contac t Referred To Contact Radiology Diagnoses Encounter for screening for cardiovascular disorders Mixed hyperlipidemia Type 2 diabetes mellitus without complications Cardiomegaly Other ill-defined heart diseases Procedures CT cardiac scoring wo IV contrast Cristina Hubbard, DEMAND PLANNER-[employer]IRPORT OPERATIONS COORDINATOR [address] [address] Phone: tel: fax: Referral ID Status Reason Start Date Expiration Date Visits Requested Visits Authorized [id number] Authorized Perform Procedure 4 02/17/2025 1 1 [facility] Work Phone: Family History No Family History Records Found [...] 3 Fatty pancreas (K86. 89) Referral Organization [facility] Referring Provider First Name Lilliam Referring Provider Last Name Gustabo Referring Provider Specialty Nurse Thee vigil Referred Organization Unknown Facility Referred Provider Specialty [...] WMN f/u September 19, 2024 2:00p m October 09, 2024 10:0 0am 6-8 week-WMN [...] section and content) DATE CREATED AUTHOR 06/02/2022 [facility] DATE CREATED AUTHOR AUTHOR'S ORGANIZ ATION 06/02/2022 [employer] DATE CREATED AUTHOR AUTHOR'S ORGANIZ ATION 09/09/2022 [facility] DATE CREATED AUTHOR AUTHOR'S ORGANIZ ATION 06/10/2023 [facility] DATE CREATED AUTHOR AUTHOR'S ORGANIZ ATION 08/28/2024 [facility] DATE CREATED AUTHOR AUTHOR'S ORGANIZ ATION 12/15/2024 [facility] DATE CREATED AUTHOR AUTHOR'S ORGANIZ ATION 02/03/2025 [facility] DATE CREATED AUTHOR AUTHOR'S ORGANIZ ATION 02/09/2025 [facility] dical Specialists EPIC REASON FOR VISIT (unrecogniz ed section and content) Reason Comments Follow-up Reason Comments Medicare Annual Wellness Visit Subsequen t Med Refill Metformin, levothyro xine,[facility]ain--[facility] Reason Comments Diabetes Reason Comments Diabetes Reason Comments Sleep Apnea Needing notes for [employer] Reason Onset Date Comments Med Refill 10/09/2024 Reason Comments Medicare Annual Wellness Visit Subsequen t Med Refill Simvastatin Care Teams (unrecognized sec tion and content) Team Status: Active Member Role Status Melvin Hilton II MD Primary Care Provider Active Team Status: Active Member Role Status Melvin Hilton II MD Primary Care Provider Active Start: October 09, 2024 Ben Wasserman MD Attending Provider Active Start: October 09, 2024 Team Status: Inactive Member Role Status Melvin Hilton II MD Primary Care Provider Active Start: November 07, 2024 End: November 07, 2024 Lilliam Montejo APRN Attending Provider Active Start: November 07, [...] 19, 2024 End: September 19, 2024 Lilliam Montejo APRN Attending Provider Active Start: September 19, 2024 End: September 19, 2024 Team Status: Active Member Role Status Melvin Hilton II MD Primary Care Provider Active Start: July 03, 2024 Ben Wasserman MD Attending Provider Active Start: July 03, 2024 Team Status: Inactive Member Role Status Melvin Hilton II MD Primary Care Provider Active Start: July 04, 2024 End: July 04, 2024 Lilliam Montejo APRN Attending Provider Active Start: July 04, 2024 [...] August 06, 2023 End: August 06, 2023 eSrg Boucher DO Emergency Provider Active Sta rt: August 06, 2023 End: August 06, 2023 Team Status: Inactive Member Role Status Dates Bello Hilton II MD Primary Care Provider Active Start: August 09, 2023 End: August 09, 2023 Lilliam Montejo APRN Attending Provider Active Start: August 09, 2023 End: August 09, 2023 Team Status: Active Member Role Status Dates Lilliam Montejo APRN Attending Provider Active Start: March 15, 2023 Bello Hilton II MD Primary Care Provider Active Start: March 15, 2023 Team Status: Inactive Member Role Status Melvin Hilton II MD Primary Care Provider Active Start: May 16, 2023 End: May 16, 2023 Mayito Yang MD [facility] Attending Provider Active Start: May 16, 2023 End: May 16, 2023 Team Status: Active Member Role Status Melvin Hilton II MD Primary Care Provid er, Attending Provider Active Start: May 16, 2023 Team Status: Active Member Role Status Melvin Hilton II MD Primary Care Provid er, Attending Provider Active Start: May 17, 2023 Team Status: Active Member Role Status Dates Lilliam Montejo APRN Attending Provider Active Start: June [...] 2023 End: October 05, 2023 Maricel SAUNDERS , DEMAND PLANNER Attending Provider Active Start: October 05, 2023 [...] December 20, 2023 End: December 20, 2023 Poker Supervisor Relationship Specialty Start Date End Date Bello Hilton MD [address] [place] [address] PCP - General Internal Medicine 09/21/22 Poker Supervisor Relationship Specialty Start Date End Date Bello Hilton MD [address] [place] [address] PCP - General Internal Medicine 09/21/22 Poker Supervisor Relationship Specialty Start Date End Date Bello Hilton MD [address] [place] [address] PCP - General Internal Medicine 02/21/24 Poker Supervisor Relationship Specialty Start Date End Date Bello Hilton MD [address] [place] [address] PCP - General Internal Medicine 09/21/22 Poker Supervisor Relationship Specialty Start Date End Date Bello Hilton MD [address] [place] [address] PCP - General Internal Medicine 09/21/22 Poker Supervisor Relationship Specialty Start Date End Date Bello Hilton MD [address] [place] [address] PCP - General Internal Medicine 02/21/24 Poker Supervisor Relationship Specialty Start Date End Date Bello Hilton MD [address] [place] [address] PCP - General Internal Medicine 02/21/24 Poker Supervisor Relationship Specialty Start Date End Date Bello Hilton MD [address] [place] [address] PCP - General Internal Medicine 02/21/24 Poker Supervisor Relationship Specialty Start Date End Date Bello Hilton MD [address] [place] [address] PCP - General Internal Medicine 09/21/22 Cristina Hubbard, CAR FILLER [address] [place] [address] PCP - ACO Reach 06/08/24 Poker Supervisor Relationship Specialty Start Date End Date Bello Hilton MD [address] [place] [address] PCP - General Internal Medicine 09/21/22 Cristina Hubbard, CAR FILLER [address] [place] [address] PCP - ACO Reach 06/08/24 Poker Supervisor Relationship Specialty Start Date End Date Bello Hilton MD [address] [place] [address] PCP - General Internal Medicine 09/21/22 Cristina Hubbard, CAR FILLER [address] [place] [address] PCP - ACO Reach 06/08/24 Poker Supervisor Relationship Specialty Start Date End Date Bello Hilton MD [address] [place] [address] PCP - General Internal Medicine 09/21/22 Cristina Hubbard, CAR FILLER [address] [place] [address] PCP - ACO Reach 06/08/24 Poker Supervisor Relationship Specialty Start Date End Date Bello Hilton MD [address] [place] [address] PCP - General Internal Medicine 09/21/22 Cristina Hubbard, CAR FILLER [address] [place] [address] PCP - ACO Reach 06/08/24 Team Status: Active Member Role Status Dates Bello Hilton II MD Primary Care Provider Active Start: December 13, 2024 Caryl Meléndez MD Attending Provider Active Sta rt: December 13, 2024 Team Status: Inactive Member Role Status Dates Bello Hilton II MD Primary Care Provider Active Start: January 02, 2025 End: January 02, 2025 Lilliam Montejo APRN Attending Provider Active Start: January 02, 2025 End: January 02, 2025 Poker Supervisor Relationship Specialty Start Date End Date Bello Hilton MD [address] [place] [address] PCP - General Internal Medicine 09/21/22 Cristina Hubbard, CAR FILLER [address] [place] [address] PCP - ACO Reach 06/08/24 Poker Supervisor Relationship Specialty Start Date End Date Bello Hilton MD [address] [facility] [place] [address] PCP - General Internal Medicine 09/21/22 Cristina Hubbard, HAO [address] [facility] [place] [address] PCP - ACO Reach 06/08/24 Goals (unrecognized section and content) Goals may [...] BE BASED ON THE PRIMARY CLINICAL RECORDS. [employer] [facility]. provides no warranty or guarantee of the accuracy or completeness of information in this document.
== END 2025-02-13 14:04 | disposition home or self-care (01) ==
LOC: RAD 14:03
PROVIDERS: PCP Internal Medicine; Visit Provider Physician Assistant
DX: E28.39 Other primary ovarian failure (principal)
CPT/HCPCS: 77080

== ENCOUNTER 2025-02-27 15:02 | Outpatient (OUT) | payer MEDICARE, OTHER, SELFPAY ==
--- OUTSIDE RECORDS SUMMARY | 2025-02-26 20:20 | XMS_ITS | Continuity of Care Document ---
Author Organization [facility] Address [address] [place] [address] Phone Care Team Providers Care Addressograph Operator Name Role Phone Bello Hilton II Primary Care Provider [phone] Caryl Meléndez MD Attending Provider Maricel Shultz RD Attending Provider Unavailable Lilliam Dexter APRN Attending Provider [phone] Brian Mtz MD Referring Provider Care Teams Patient Care Team Team Status: Active Member Role/Relationship Status Dates Bello Hilton II MD Primary Care Provider Active Visit Care Team Team Status: Inactive Member Role/Relationship Status Dates Bello Hilton II MD Primary Care Provider Active Start: December 13, 2024 End: December 13, 2024Linwendy Meléndez MDAttending ProviderActiveStart: December 13, 2024 End: December 13, 2024 Visit Care Team Team Status: Inactive Member Role/Relationship Status Dates Bello Hilton II MD Primary Care Provider Active Start: December 13, 2024 End: December 13, 2024LinBen Begum ProviderActiveStart: December 13, 2024 End: December 13, 2024 Visit Care Team Team Status: Inactive Member Role/Relationship Status Melvin Hilton II MD Primary Care Provider Active Start: December 19, 2024 End: December 19jacobo Shultz RD LDAttending ProviderActiveStart: December 19, 2024 End: December 19, 2024 Visit Care Team Team Status: Inactive Member Role/Relationship Status Melvin Hilton II MD Primary Care Provider Active Start: January 02, 2025 End: January 02, 2025Martha Pineda ProviderActiveStart: January 02, 2025 End: January 02, 2025 Visit Care Team Team Status: Inactive Member Role/Relationship Status Dates Bello Hilton II MD Primary Care Provider Active Start: February 26, 2025 End: February 26, 2025Caryl Meléndez MDAttmarcelino ProviderActiveStart: February 26, 2025 End: February 26, 2025StAASHISH Toscanoeferring ProviderActiveStart: February 26, 2025 End: February 26, 2025 Chief Complaint and Reason for Visit Chief Complaint Admit Date unclear history of congestive heart pe r patient. December 13, 2024 9:13am R06.02 December 13, 2024 9: 15am 6-8 week-WMN f/u January 02, 2025 1:00pm R06.02 February 26, 2025 8 :27am Reason for Visit Admit Date Anxiety and depression December 13, 2024 9:13am BMI 45.0-49.9, adult December 13, 2024 9 :13am Dependent edema December 13, 2024 9: 13am Diabetes type 2, uncontrolled November 9:13am GOETZ (dyspnea on exertion) December 13, 9:13am Exercise intolerance December 13, 2024 9 :13am Hyperlipidemia December 13, 2024 9: 13am Hypothyroid December 13, 2024 9: 13am RYANNE (obstructive sleep apnea) November 9:13am Abnormal weight gain January 02, 2025 1:00pm Acid reflux January 02, 2025 1:00pm Adrenal abnormality January 02, 2025 1:00pm Anxiety and depression January 02 1:00pm Bipolar disorder January 02, 2025 1:00pm BMI 45.0-49.9, adult January 02, 2025 1:00pm Diabetes type 2, uncontrolled January 02, 2025 1:00pm Fatigue January 02, 2025 1:00pm Fatty pancreas January 02, 2025 1:00pm Hyperlipidemia January 02, 2025 1:00pm Hypothyroid January 02, 2025 1:00pm Obesity January 02, 2025 1:00pm RYANNE (obstructive sleep apnea) January 02, 2025 1:00pm Vitamin D deficiency January 02, 2025 1:00pm Allergies, Adverse Reactions, Alerts Allergen Type Severity Reaction Last Updated Verified Status No Known Allergies Allergy Unknown February 26, 2025 11:33amYesActive Social History Smoking Status Status Start Date End Date Date of Observa tion Never smoked tobacco (finding) September 19, 2024 2:35pm Observation Status Observation Response Date of Response Legal Sex [facility] (finding) [facility] 1955 Family History Relationship Condition Age at Onset Recorded Date/T lelo father Diabetes mellitus Unknown DeceasedUnknownHeart diseaseUnknownfamily memberDeceasedUnknownmotherFamily history of mental disorderUnknownMalignant neoplasmUnknownDeceasedUnknownHeart diseaseUnknownbrotherDiabetes mellitusUnknownbrotherMalignant neoplasmUnknown Malignant neoplasm of kidneyUnknown Problems Active Problems Problem Diagnosis/Recorded Date Onset Date Stat us Fatty pancreas August 01, 2023 10:20am Unknown Ac tive RYANNE (obstructive sleep apnea) August 01, 2023 10:20am Unknown Active Adrenal abnormality August 01, 2023 10:20am Unknown Active Adrenal abnormality January 10, 2024 12:56pm Unkno wn Active GOETZ (dyspnea on exertion) December 13, 2024 11:23am Un known Active Fatigue August 01, 2023 10:20am Unknown Acti ve Heartburn August 01, 2023 10:19am Unknown Acti ve Hypertriglyceridemia August 01, 2023 10:20am Unknown Active Abnormal weight gain September 21, 2024 2:25pm Unknown Active Bipolar disorder August 01, 2023 10:21am Unknown Active Depression August 01, 2023 10:22am Unknown Acti ve Hyperlipidemia August 01, 2023 10:20am Unknown Ac tive Allergies October 05, 2023 11:09am Unknown Activ e Hypothyroid August 01, 2023 10:20am Unknown Acti ve Diabetes type 2, uncontrolled August 01, 2023 10:20am Unknown Active Diabetes mellitus with hyperglycemia October 19, 2023 1 :02pm Unknown Active Snores August 01, 2023 10:20am Unknown Acti ve Abnormal CT of the abdomen August 19, 2023 12:31pm Un known Active BMI 45.0-49.9, adult September 21, 2024 2:26pm Unknown Active BMI 40.0-44.9, adult August 01, 2023 10:20am Unknown Active Anxiety and depression August 01, 2023 10:20am Unknown Active Dependent edema November 08, 2024 7:57am Unknown Ac tive Exercise intolerance November 08, 2024 7:56am Unknown Active Acid reflux August 01, 2023 10:22am Unknown Acti ve Vitamin D deficiency August 01, 2023 10:20am Unknown Active Obesity August 01, 2023 10:20am Unknown Acti ve Inactive/Resolved Problems Problem Diagnosis/Recorded Date Onset Date Stat us Left shoulder pain August 06, 2023 11:29am Unknown Resolved Medications Medication Status Dose Units Route Directions Qty Days Refills S tart Date Stop Date End Date Reason(s) Instructions Adherence Hydrocodone-Acetaminophen 5- 325 mg tablet Discontinued 1 TAB PO EVERY 4-6 HOURS as needed for pain 10 3 0 August 06, 2023 August 09, 2023 11:41amLeft shoulder pain Pain in left shoulderPrednisone 50 mg vgeuxlFmpvdqfnhmav94JGSTBauks109Bivat 2023 12:00amApril 2023 11:41amSemaglutide (Ozempic) 0.25 mg or 0.5 mg (2 mg/3 mL) pen injectorDiscontinued0.5MGSUBCUTevery weekFebruary 2023 1:00am November 07, 2024 1:47pmPAP approved thru holecalciferol (Vitamin D3) 50 mcg (2,000 unit) qptrcdpLitkqgpxyqax19ZEDCDHpdwzRgpaz 2023 12:00amJune 2023 11:08amMetformin 500 mg xgzpgcYxydjttfvngg455FJAYCuszqEtxjb 2023 12:00amMarch 2024 3:09pmOmeprazole 20 mg capsule,delayed release(DR/EC) Dwswttfaxwtf17VTEGJtikg dailyApril 2023 12:00amAugust 2024 9:19am Risperidone 2 mg fvlsooOesbvh5ZXYSGdpikLwhra 2023 12:00amUnknownSimvastatin 40 mg nptdndKoxtdk24JKWPNlqsgGzgph 2023 12:00amUnknownLevothyroxine 100 mcg dnsglrLhabbn373EDINVJpsbxHjhmt 2023 12:00amUnknownVenlafaxine 75 mg tablet Pulpuu87HXOFPavus dailyApril 2023 12:00amUnknownOmeprazole 20 mg capsule,delayed release(DR/EC)Zdsoeb93ARKQIqwwdDxcemx 2024 9:19amUnknown Semaglutide (Ozempic) 1 mg/dose (4 mg/3 mL) pen whygtjbxOlufpj3JKACTEWDfjjdp weekJuly 2024 12:00amUnknown Procedures Procedure Date Performed Status NM joselin perf SPECT rest & str February 26, 2025 12:00am active Relevant Diagnostic Tests and/or Laboratory Data Laboratory Results Test Collection Date/Time Result Date/Time Result Interpretation Reference Range Result Comment Performing Site B-Type Natriuretic Peptide February 26, 2025 9:00am February 26, 2025 9:56am 12.0 pg/mL 5-100[facility] [id number] [address] [place] [id number] Vital Signs Vital Reading Result Reference Range Collection Date/Time Height 64 [in_i] December 13, 2024 9:48bcWbbcel016.91 kgAugust 2024 9:32amHeart Rate84 /min 60-100Augus2024 9:32amRespiratory rate18 /aqd27-31Rbtbcd 2024 9:32amOxygen saturation by Pulse eodkrkrt34 %95-100gus2024 9:32amBP Iegppzig590 mm[Hg]100-140Augus2024 9:32amBP Cjddhxhdb36 mm[Hg]60-100 December 13, 2024 9:32amBMI (Body Mass Index)48.4 kg/k6Bjekfh 2024 9:32am Evpvwx55.31 [in_i]January 02, 2025 1:65bgRduroq399.95 kgSeptember 2024 1:07pmHeart Rate85 /ypp12-927Vlxldjtnc 3rd, 2025 1:07pmRespiratory rate20 /min 12-24Sept2024 1:07pmOxygen saturation by Pulse txonkoui12 %95-100 January 02, 2025 1:07pmBP Wdslvdqd407 mm[Hg]100-140Sept2024 1:07pm BP Idiglxola22 mm[Hg]60-100Sept2024 1:07pmBMI (Body Mass Index)46.3 kg/i5Krvqarpsj2024 1:42hiGmbmqn80 [in_i]February 26, 2025 11:33amWeight 117.93 [facility] 2024 11:33amHeart Rate73 /ijb37-024Jbxlrzc 2024 12:18pmBP Shhfdixk546 mm[Hg]100-140[facility] 2024 12:18pmBP Atlxfvyev91 mm[Hg]60-100[facility] 2024 12:18pm Advance Directives Advance Directive Response Recorded Date/ Time Advance Directives No October 04 10:01am Insurance Providers Guarantor Bette Villafana Address [address] [facility] [address]Txziydf Info.Home Phone: Payer Group Member ID Coverage Type Subscriber Relationship to Subscriber Effective Date Expiration Date [employer] Access [address] [address] [facility] [address] Work Phone: [phone] N Gittinger Id: [id number] [address] [place] [address] Home Phone: Email: [email or web address] S Gittinger Id: [id number] [address] [facility] [address] Home Phone: Email: [email or web address] Encounters Encounter Location(s) Arrival/Admit Date Discharge/Departure Date Discharge/Departure Disposition Provider(s) Departed Physician/ Provider Office Visit -[facility] Cardiology December 13, 2024 9:13am December 13, 2024 10:10am Discharged to home care or self care (routine discharge) Caryl Meléndez MD Departed Clinical -EKG Cardiology December 13, 2024 9:15am December 13, 2024 9:16am Discharged to home care or self care (routine discharge) Caryl Meléndez MD Departed Physician/ Provider Office Visit -[facility] December 19, 2024 10:21am December 19, 2024 11:59pm Discharged to home care or self care (routine discharge) Maricel Shultz Departed Physician/ Provider Office Visit -[facility] January 02, 2025 1:00pm January 02, 2025 1:51pm Discharged to home care or self care (routine discharge) Lilliam Dexter APRN Departed Clinical -Electrodiag nostics February 26, 2025 8:27am February 26, 2025 8:28am Discharged to home care or self care (routine discharge) Caryl Meléndez MD Recent Diagnosis Onset Date Admit Date Anxiety and depression Unknown December 132024 9:13am BMI 45.0-49.9, adult Unknown November 9:13am Dependent edema Unknown December 13 9:13am Diabetes type 2, uncontrolled Unknown [facility] 2024 9:13am GOETZ (dyspnea on exertion) Unknown December 13, 2024 9:13am Exercise intolerance Unknown November 9:13am Hyperlipidemia Unknown December 13 9:13am Hypothyroid Unknown December 13 9:13am RYANNE (obstructive sleep apnea) Unknown [facility] 2024 9:13am Abnormal weight gain Unknown January 022024 1:00pm Acid reflux Unknown January 02, 025 1:00pm Adrenal abnormality Unknown December 1:00pm Anxiety and depression Unknown January 02, 2025 1:00pm Bipolar disorder Unknown January 02, 2025 1:00pm BMI 45.0-49.9, adult Unknown January 022024 1:00pm Diabetes type 2, uncontrolled Unknown Se pt2024 1:00pm Fatigue Unknown January 02, 2 025 1:00pm Fatty pancreas Unknown January 02, 2 025 1:00pm Hyperlipidemia Unknown January 02, 2 025 1:00pm Hypothyroid Unknown January 02, 2 025 1:00pm Obesity Unknown January 02, 025 1:00pm RYANNE (obstructive sleep apnea) Unknown Se pt2024 1:00pm Vitamin D deficiency Unknown January 022024 1:00pm Assessments Diagnosis Onset Date Resolution Status Admit Date Anxiety and depression acuteAugust 2024 9:13amBMI 45.0-49.9, adultacuteAugust 2024 9:13am Dependent edemaacuteAugust 2024 9:13amDiabetes type 2, uncontrolledacute December 13, 2024 9:13amDOE (dyspnea on exertion)acuteAugust 2024 9:13am Exercise intoleranceacuteAugust 2024 9:13amHyperlipidemiaacuteAugust 2024 9:13amHypothyroidacuteAugust 2024 9:13amOSA (obstructive sleep apnea)acuteAugust 2024 9:13amAbnormal weight gainacuteSept2024 1:00pmAcid refluxacuteSept2024 1:00pmAdrenal abnormalityacute January 02, 2025 1:00pmAnxiety and depressionacuteSept2024 1:00pm Bipolar disorderacuteSept2024 1:00pmBMI 45.0-49.9, adultacute January 02, 2025 1:00pmDiabetes type 2, uncontrolledacuteSept2024 1:00pmFatigueacuteSept2024 1:00pmFatty pancreasacuteSept2024 1:00pmHyperlipidemiaacuteSept2024 1:00pmHypothyroidacute January 02, 2025 1:00pmObesityacuteSept2024 1:00pmOSA (obstructive sleep apnea)acuteSept2024 1:00pmVitamin D deficiencyacuteSept2024 1:00pm Plan of Treatment Author Caryl Meléndez [facility] 20[facility] 12:31pmAssessment: #Dyspnea on exertion: x 20-30 years now worsening #Type II DM #Hyperlipidemia #RYANNE on CPAP #Hypothyroidism #GERD #Obesity #Other: Benign adrenal nodule, anxiety/depression, bipolar disorder, panic attacks EKG 12/13/2024: Normal sinus with low voltage QRS, non specific T wave abnormality, rate 87 bpm Plan: -Normotensive and euvolemic on exam today. GOETZ is worsening overall. -Update echocardiogram to assess for any new cardiomyopathy, evaluate structure/function, assess for any valve disease -Obtain Lexiscan MPI to rule out ischemia in setting of GOETZ, type II DM, hyperlipidemia (cannot physically perform exercise due to obesity, GOETZ). -Update PFT's to assess lung function in setting of GOETZ -Update basic lab work: CMP, CBC (known previous anemia), BNP, TSH -Follow up after above work up is complete, sooner if needed. Attending attestation: I saw the patient personally on the day of encounter. I reviewed the relevant history, and performed the aguilera elements of the physical examination. I reviewed the relevant laboratory workup, radiological studies and the current treatment plan and I agree with Ainsley Mcgraw's FLIGHT SIMULATOR TEACHER note. Author Lilliam Schroederclark [facility]Authored[facility] 2024 1:14pm01/02/2025 returns for weight management follow-up. Feels her nutritional effort is good since her last visit she is logging her foods, she is been focusing on eating a lot of fruits and vegetables, she is walking and was swimming at least 2 times per week. She reports feeling mark, her pants fitting better and more comfortable. She been working with registered dietitian, incorporating veggies at [employer] having carrot sticks instead of chips or fries. She was told that her Pepsi was killing her and she has made concerted effort to reduce eliminate. Tolerating Ozempic 1 mg subcu weekly Does have RYANNE with CPAP had supply issue in the past, may need to revisit. 11/07/2024 returns for weight management follow-up. Reports her nutritional effort is good since her last visit. She has increased her water. did have a health scare with stents and for period of time decreased her soda but then crept back into her house. She has not found a consistent alternate. We did have a long discussion regarding intolerant to physical activity, extreme winded with short distances with prolonged recovery. She does allude to possible historical diagnosis of congestive heart failure but cannot confirm the details. She has also seen biodiesel engine specialist historically but unable to articulate but has had inhaler chronically in the past. She is agreeable to see cardiology Her mood today is good She is tolerating Ozempic 1 mg subcu weekly, occasional episodes of diarrhea likely related to food. She is hesitant but agreeable to registered dietitian. 07/04/2024. Returns for weight management follow-up. Feels her nutritional efforts are fair since her last visit. She has changed and no sugar Pepsi which is a big accomplishment for her. She does find eating and food choices a struggle. She is not doing any formal exercise, she is working 3 times per week and caring for her young grandson who takes a lot of energy. She did recently lose her mother. She did have dementia. She is adjusting to this new family dynamic. She previously lost her son-in-law suddenly. She did see endocrinology at [facility] for her adrenal incidentaloma. Had CT and labs and is awaiting follow-up September 03, 2024, unclear implications. Continues to tolerate Ozempic 0.5 mg subcu weekly. Has occasional diarrhea that does not correlate back to any specific day post dose. I did encourage her to monitor 24-hour intake prior to episode of diarrhea to see if she find food triggers such as fats, highly processed foods. She will let me know. She continues to defer registered dietitian. I feel like this could be very helpful but she is very resistant and felt it has not helped in the past. I will continue to encourage this. Highest Weight: 272 lbs Program Starting Weight: 269.9 lbs Current Weight: 265.7 lbs, down 1.1 lbs from last visit. down 4.2 lbs from start and down 6.3 from high weight. (Loss after after 2 second interval increases), on Ozempic 0.5 mg subcu weekly (PAP). Recent second family bereavement, defers RD. Current Weight: 264 point lbs +/-: Down Down 2.8 lbs since last visit, down 5.5 point lbs from original start and down 7.6 lbs high weight. Self-imposed goal of weight loss, increased energy Baseline body comp date: 09/19/2024 /due each visit or with precipitous gain or loss, details available upon request 01/02/2025 finalizing cardiology consult evaluation, questionable history of CHF, winded, prolonged recovery from exertion, cardiac risk factors, has been sees Dr. Sam.--Possible pulmonary implications Patient denies personal or family history of MTC or MENS syndrome (discussed in layman's terms). Patient denies history of pancreatitis Hx GLP1RA via samples, Ozempic and Mounjaro tolerated, insurance coverage challenges, now MCR and receiving Ozempic thru PAP, tolerating 0.5 mg subcu weekly, submitted for 1 mg subcu weekly ongoing, pending approval. Has 3 weeks left, may need samples or voucher Continue Ozempic 1.0 mg subcu weekly times approximately 3 doses Reviewed all Endo notes, most recently pending IGF???1, initiated on thyroid medication, adrenal incidentaloma not active, negative for hypercortisolism Constellation: Including but not limited to mild dorsocervical fat pad, insulin resistance, mildly round facies and mental health challenges adrenal incidentaloma Successfully eliminated regular soda. could consider CGM trial to assist with food challenges. Some concern for addictive type behaviors naltrexone. Currently on venlafaxine and risperidone. Trial of clinical counseling for gambling, did not identify concerns Caution with food triggers Consideration mental health to assure proper goal setting and strategies for success Reconsider RD and classes-- didn't help in past. challenged self efficacy with dietary changes-- continues to defer-- discussed need for calorie deficit via calorie counting, food restrictions or time restricted feeding with unprocessed foods during fed hours-- will try this, not eating past 5 pm avoid all or nothing behaviors RTC keep follow-up with Emil Flynn for now. Return to clinic 8-10 weeks to see provider, maintain engagement with Future Tests Future scheduled test information is unavailable Pending Tests Test Name Ordered Date Scheduled Date NM joselin perf SPECT rest & str February 26, 2025 9:43am February 26, 2025 12:00am Comprehensive Metabolic Panel December 13, 2024 10:08am Future Visits Future appointment information is unavailable Future Procedures Procedure Name Ordered Date Scheduled Date B-Type Natriuretic Peptide December 13, 2024 10: 08am Complete Blood Count Auto DiffAugust 2024 10:08amThyroid Stim Hormone w/RflxAugust 2024 10:08amPulmonary Function TestAugust 2024 10:08am Future Medications Future medication information is unavailable Patient Instructions Patient instructions are unavailable
--- OUTSIDE RECORDS SUMMARY | 2025-02-27 15:08 | XMS_ITS | Clinical Summary ---
Author Organization [facility] Address [address] [place] [address] Phone Care Team Providers Care Cement Finisher Helper Name Role Phone Bello Hilton MD Primary Care Provider [phone] Allergies No known active allergies Medications MedicationSigDispense QuantityRefillsLast FilledStart DateEnd DateStatus levothyroxine (Synthroid, Levoxyl) 100 mcg tablet Take 1 tablet (100 mcg) by mouth once daily.01/09/2021ctive LORazepam (Ativan) 0.5 mg tablet Ativan 0.5 MG Oral Tablet Refills: 0 ActiveActive risperiDONE (RisperDAL) 2 mg tablet Take 1 tablet (2 mg) by mouth once daily at bedtime.11/28/2014ctive simvastatin (Zocor) 40 mg tablet Take 1 tablet (40 mg) by mouth once daily at bedtime.Active venlafaxine (Effexor) 75 mg tablet Take 1 tablet (75 mg) by mouth 2 times daily (morning and late afternoon).Active metFORMIN (Glucophage) 500 mg tablet Take 1 tablet (500 mg) by mouth 2 times daily (morning and late afternoon). Active omeprazole (PriLOSEC) [address] capsule Indications:Tracheal stenosis,Gastroesophageal reflux disease without esophagitisTake 1 capsule (20 mg) by mouth 2 times a day. 180 capsule ctive semaglutide (Ozempic) 0.25 mg or 0.5 mg(2 mg/1.5 mL) pen injector Inject under the skin 1 (one) time per week.Active dexAMETHasone (Decadron) 1 mg tablet Indications:Adrenal noduleTake 1 tablet (1 mg) by mouth 1 time for 1 dose. -take 1mg of dexamethasone around 10- 11 pm, bloodwork at 8am 1 tablet 04/10/2024ctive Active Problems ProblemNoted DateDiagnosed XzbzMtlrwwaxt71/24/2023Esophageal ovhbhv5101/23/2023 Tracheal /24/2023bnormal hwnxypjmietefgtgl58/24/2023iabetes 01/23/2023 Assessment & Plan (08/03/2024 12:16 PM EDT): Assessment & Plan (04/20/2024 12:03 AM EST): Orders: Hemoglobin A1C; Future Mgedhpt5101/23/20232916Skpzqxqetaiqwi78/24/1878Fdsrxatwlyboka40/24/2023 Assessment & Plan (08/03/2024 12:16 PM EDT): Orders: Thyroid Stimulating Hormone; Future Thyroxine, Free; Future IGF-I; Future Assessment & Plan (04/20/2024 12:03 AM EST): Orders: Thyroid Stimulating Hormone; Future Thyroid Peroxidase (TPO) Antibody; Future Thyroxine, Free; Future Morbid obesity with BMI of 40.0-44.9, adult01/23/2023Never smoked any substance 01/23/2023OSA (obstructive sleep apnea)01/23/2023 Encounters DateTypeDepartmentCare DfbgNifinqpjwvz62/25/2025Refill [facility] [address] [place] [address] Ronnie Siddiqui MD Tracheal stenosis; Gastroesophageal reflux disease without esophagitisfrom Last 3 Months Immunizations ImmunizationAdministration DatesNext DuePfizer COVID-19 vaccine, bivalent, age 12 years and older (30 mcg/0.3 mL)05/11/2022 Family History Medical HistoryRelationNameCommentsKidney cancerBrotherDiabetesFatherHeart failureFatherBreast cancerMotherDiabetesSisterRelationNameStatusCommentsBrother FatherDeceasedMotherSister Social History Tobacco UseTypesPacks/DayYears UsedDateSmoking Tobacco: NeverSmokeless Tobacco: Never Tobacco Cessation:Counseling Given: Not Answered PHQ-2AnswerDate RecordedPatient Health Questionnaire-2 Jnmbs1613 CommentsUnknownSex and Gender InformationValueDate RecordedSex Assigned at Not on fileLegal ZezKicoic85/25/2022 12:02 PM ESTGender IdentityNot on file Sexual OrientationNot on file Last Filed Vital Signs Vital SignReadingTime TakenCommentsBlood Yjrvtgut929/7407/19/2024 9:44 AM EDT Eibmv498804/10/2024 8:36 AM MZJKbuewdexwdn92.4 ??C (97.5 ??F)07/19/2024 9:44 AM EDTRespiratory Rate--Oxygen Saturation--Inhaled Oxygen Concentration--Hybara405 kg (264 lb)07/19/2024 9:44 AM UQAUliaev313.5 cm (5' 4.75 )07/19/2024 9:44 AM EDT Body Mass Index44.27007/19/2024 9:44 AM EDT Plan of Treatment DateTypeDepartmentCare Team (Latest Contact Info)Occfrlusldu40/17/2026 10:30 AM EDTOffice Visit [facility] [address] [place] [address] [place] [address] Department [place] [address] Health MaintenanceDue DateLast DoneCommentsCT Wtutlupeovet96/01/1958FIT-DNA (Cologuard)1957FIT1957Medicare Annual Wellness Visit (AWV)1957 Gsbtfbankbvue85/01/1958MMR Vaccines (1 of 1 - Standard series)1958 Diabetes: Retinopathy Flrkdusgv00/01/1968Hepatitis C Cmvnaonyv04/01/1976 Hepatitis A Vaccines (1 of 2 - Risk 2-dose series)1976Pneumococcal Vaccine (1 of 2 - PCV)1976DTaP/Tdap/Td Vaccines (1 - Tdap)1979RSV High Risk: (Elderly (60+) or Population) (1 - Risk 50-74 years 1-dose series) 2007Zoster Vaccines (1 of 2)2007Hepatitis B Vaccines (1 of 3 - Risk 3-dose series)2017Bone Density Scan05/02/20224216Gaprljbuc85/10/2024 05/11/2022, 05/06/2021, 05/05/2021, Additional history existsDiabetes: Hemoglobin A1C/01/2024Influenza Vaccine (#1)5COVID-19 Vaccine (2 - season)3Diabetes: Urine Protein Cucokkvst41/, 06/22/2023Lipid PanelTSH Level/01/2024, 02/15/20246794Kowqefqcppy55Colorectal Cancer Apuiklpoq81/15/2029HIB VaccinesAged OutNo longer eligible based on patient's age to complete this topicHPV VaccinesAged OutNo longer eligible based on patient's age to complete this topicIPV VaccinesAged OutNo longer eligible based on patient's age to complete this topicMeningococcal VaccineAged OutNo longer eligible based on patient's age to complete this topicRotavirus Vaccines Aged OutNo longer eligible based on patient's age to complete this topic Medical Devices ImplantedTypeAreaManufacturerDevice IdentifierShelf Expiration DateModel / Serial / LotLaser Engineering Hwg 500 Fiber Case [id number] Implanted:Qty: 1 on 03/19/2021 by Ronnie Siddiqui MDUofL Health [facility] [id number] / / Description:Converted from [facility]. Please see archived information for full log information. Additional Information:per bill only jdr 03/28/2021 1456pm Procedures Procedure NamePriorityDate/TimeAssociated DiagnosisCommentsHEMOGLOBIN X4OPjakvqp 04/10/2024 10:47 AM EST Type 2 diabetes mellitus without complication, without long-term current use of insulin (Multi) NOADyzldxq12/10/2024 10:47 AM EST Adrenal nodule Hypothyroidism, unspecified type from Last 3 Months or Most Recently Relevant to Health Maintenance Results * Thyroid Stimulating Hormone (04/10/2024 10:47 AM EST)ComponentValueRef Range Test MethodAnalysis TimePerformed AtPathologist SignatureThyroid Stimulating Hormone3.610.44 - 3.98 mIU/L LAB IMMUNOASSAY METHOD 04/10/2024 1:06 PM [facility] LABSpecimen (Source)Anatomical Location / Laterality Collection Method / VolumeCollection TimeReceived TimeBloodVenous blood specimen / UnknownVenipuncture / Dufzazj9504/10/2024 10:47 AM EST04/10/2024 10:47 AM EST Narrative [facility] - 04/10/2024 1:06 PM EST TSH testing is performed using different testing methodology at [facility] than at other [facility]. Direct result comparisons should only be made within the same method. Authorizing ProviderResult TypeResult StatusRamya Saldana [facility] BLOOD ORDERABLESFinal ResultPerforming OrganizationAddressCity/State/ZIP CodePhone Number [facility] [address] [phone] * (ABNORMAL) Hemoglobin A1C (04/10/2024 10:47 AM EST)ComponentValueRef RangeTest MethodAnalysis TimePerformed AtPathologist SignatureHemoglobin A1C5.9(H)See comment %04/10/2024 1:36 PM [facility] LABEstimated Average Hejqsvk171Xbc Established mg/dL04/10/2024 1:36 PM [facility] LABSpecimen (Source)Anatomical Location / LateralityCollection Method / VolumeCollection TimeReceived Time BloodVenous blood specimen / UnknownVenipuncture / Yrjzvqz6104/10/2024 10:47 AM EST04/10/2024 10:47 AM EST Narrative [facility] - 04/10/2024 1:36 PM EST Diagnosis of Diabetes-Adults Non-Diabetic: < or = 5.6% Increased risk for developing diabetes: 5.7-6.4% Diagnostic of diabetes: > or = 6.5% Authorizing ProviderResult TypeResult StatusRamya Saldana [facility] BLOOD ORDERABLESFinal ResultPerforming OrganizationAddressCity/State/ZIP CodePhone Number [facility] [address] [phone] from Last 3 Months or Most Recently Relevant to Health Maintenance Insurance Care Teams Team MemberRelationshipSpecialtyStart DateEnd Date Bello Hilton MD [address] [facility] [address] [place] [address] PCP - GeneralInternal Nbmjwglc47/22/24
--- OUTSIDE RECORDS SUMMARY | 2025-02-27 15:08 | XMS_ITS | Encounter Summary ---
Author Organization [facility] Address [address] [place] [address] Care Team Providers Care Clarifier Operator Name Role Phone Bello Hilton MD Primary Care Provider [phone] Cristina Shepherd NP Unavailable [phone] Encounter Details DateTypeDepartmentCare Team (Latest Contact Info)Aqczzutxovk13/20/2025Orders Only [facility] [address] [place] [address] Unallocated, [facility] Provider, [address] [place] [address] Social History Tobacco UseTypesPacks/DayYears UsedDateSmoking Tobacco: NeverSmokeless Tobacco: NeverAlcohol UseStandard Drinks/WeekCommentsNever0 (1 standard drink = 0.6 oz pure alcohol)Caffeine intake: nonePHQ-2AnswerDate RecordedPatient Health Questionnaire-2 Jdxxc466CommentsUnknownSex and Gender InformationValueDate RecordedSex Assigned at BirthNot on fileLegal SexFemale 07/14/2022 7:24 PM EDTGender IdentityNot on fileSexual OrientationNot on file documented as of this encounter Plan of Treatment Not on file documented as of this encounter Procedures Procedure NamePriorityDate/TimeAssociated DiagnosisCommentsDEXA BONE DENSITY Zyruhue2402/18/2025 1:23 PM EDTdocumented in this encounter Results * DEXA bone density (02/18/2025 1:23 PM EDT)Anatomical RegionLateralityModality BodyRadiographic Imaging Narrative Authorizing ProviderResult TypeResult StatusNoms Provider Unallocated MDIMG DXA PROCEDURESFinal Result documented in this encounter Visit Diagnoses Not on filedocumented in this encounter Additional Health Concerns AssessmentNoted TimePHQ-9 Depression Total Score: 8:00 AM EDT documented as of this encounter Care Teams Team MemberRelationshipSpecialtyStart DateEnd Date Bello Hilton MD [address] [facility] [address] [place] [address] PCP - GeneralInternal Medicine09/21/22 Cristina Shepherd NP [address] [facility] [address] [place] [address] PCP - ACO Reach06/08/24documented as of this encounter
--- OUTSIDE RECORDS SUMMARY | 2025-02-27 15:08 | XMS_ITS | Clinical Summary ---
Author Organization [facility] Healthcare Address [address] [place] [address] Care Team Providers Care Console Attendant Name Role Phone Bello Hilton MD Primary Care Provider [phone] Cristina Shepherd NP Unavailable [phone] Allergies No known active allergies Medications MedicationSigDispense QuantityRefillsLast FilledStart DateEnd DateStatus risperiDONE (RisperDAL) 2 MG tablet Take 2 mg by mouth in the morning.12/25/2012ctive semaglutide (Ozempic, 0.25 or 0.5 MG/DOSE,) 2 MG/1.5ML solution pen-injector Inject 0.25 mg under the skin 1 (one) time per week.Active venlafaxine XR (Effexor XR) 75 MG 24 hr capsule Take 75 mg by mouth in the morning and 75 mg before bedtime.Active LORazepam (Ativan) 0.5 MG tablet Take 0.5 mg by mouth Daily as needed for ypdmyes1903/15/2023ctive omeprazole (PriLOSEC) [address] capsule Take 20 mg by mouth in the morning and 20 mg in the evening. Take before meals. 06/01/2023ctive levothyroxine (Synthroid, Levoxyl) 100 MCG tablet Indications:Hypothyroidism, unspecifiedTAKE 1 TABLET BY MOUTH EVERY DAY IN THE MORNING ON EMPTY STOMACH FOR 90 DAYS 90 tablet 5Active cholecalciferol (Vitamin D-3) 50 MCG (1999) capsule Take 2,000 Units by mouth Daily08/01/2023ctive Respiratory Therapy Supplies (CareTouch CPAP & BIPAP Hose) [facility] Indications:BiPAP (biphasic positive airway pressure) dependence1 Dose at bedtime 1 each /ctive Respiratory Therapy Supplies (Reusable Comfortseal Mask-MED) [facility] Indications:BiPAP (biphasic positive airway pressure) dependence1 Device at bedtime Mirage Activa LT Mask Xwz-WQRS-UdjBsx for CPAP 1 each 5Active simvastatin (Zocor) 40 MG tablet Indications:Mixed hyperlipidemiaTake 1 tablet (40 mg) by mouth at bedtime 100 tablet 5Active simvastatin (Zocor) 40 MG tablet Indications:Mixed hyperlipidemiaTAKE 1 TABLET BY MOUTH EVERY DAY IN THE EVENING FOR 90 DAYS 100 tablet 41Discontinued(Reorder) metFORMIN (Glucophage) 500 MG tablet Indications:Type 2 diabetes mellitus without complication, without long-term current use of insulin (HCC)TAKE 1 TABLET BY MOUTH EVERY DAY WITH A MEAL 100 tablet Discontinued(Other) meclizine (Antivert) 25 MG tablet Indications:DizzinessTake 1 tablet (25 mg) by mouth 3 (three) times a day as needed for dizziness 30 tablet Discontinued(Therapy completed) Active Problems ProblemNoted DateDiagnosed DateHistory of basal cell mbogpoomx48/09/2025nxiety and pamwtitdia78/05/2025drenal idboknzgggq95/05/2025bnormal electrocardiogram 01/23/20232174Izjqbiyb90/24/2023Morbid obesity with BMI of 40.0-44.9, adult 01/23/2023Intra-abdominal qekoqyblumqqjoj73/24/2023Fatty ohkiudxt36/24/2023 Mcsbqwnemeua49/24/2023llergic /23/2023iPAP (biphasic positive airway pressure) hlxnaejpnx97/23/2023ecreased right ventricular systolic function 09/21/2022yspnea on emlmwzcb89/23/2023Lipoprotein deficiency /23/2023 Lower extremity edema09/21/2022LVH (left ventricular hypertrophy)09/21/2022Mixed jqcikbydteduhy02/23/2023Esophageal rdrczuhjp14/23/1913Aluewdlnuiaini84/23/2023 Tracheal xgtfrrun51/23/2023Tubular adenoma of colon09/21/2022Vitamin D iktrupvykd12/11/2023Esophageal nqpxsn1406/30/2010cquired ptwocntbjdpnog37/07/2008 Bipolar 1 disorder, depressed, partial lcvysvfuw20/07/2008Mitral valve insufficiency and aortic valve gorsmqrc92/07/2008Obstructive sleep apnea 11/06/2007 Resolved Problems ProblemNoted DateDiagnosed DateResolved DateGangrenous sysatsxgzbmxi24/05/2025 09/03/2024Never smoked any ujhpfvcqp09asal cell carcinoma (BCC) of right cheekMorbidly obeseType 2 diabetes mellitus without complication, without long-term current use of insulin Encounters DateTypeDepartmentCare RgmrSqycgdcsuta88/20/2025Orders Only [facility] [address] [facility] [address] [place] [address] Unallocated, Angeles Carlisle MD 02/18/2025bstract [facility] [address] [facility] [address] [place] [address] Bello Hilton MD 02/08/2025bstract [facility] [address] [facility] [address] [place] [address] Bello Hilton MD 02/07/2025 9:00 AM EDTOffice Visit [facility] [address] [facility] [address] [place] [address] Zulma Glaser PA Medicare annual wellness visit, subsequent (Primary Dx); ACP (advance care [...] Morbid obesity with BMI of 40.0-44.9, adult (CMS-HCC); Thyrotoxicosis without thyroid storm, unspecified thyrotoxicosis type; Vitamin D deficiency; Allergic rhinitis due to pollen, unspecified seasonality; Anxiety and depression; Screening for malignant neoplasm of colon; Bipolar 1 disorder, depressed, partial remission (HCC); Estrogen deficiency; History of basal cell carcinoma; Lipoprotein deficiency disorder; Mixed ukvmcufvfvjcoa83/09/2025amboo flowsheet [facility] [address] [address] [place] [address] Zulma Glaser PA 02/07/20256124Pothrt63/04/2025linisync Result Encounter [facility] External Department Unsolicited Bello Hilton MD 01/29/2025Telephone [facility] [address] [address] [place] [address] Bello Hilton MD 01/28/2025bstract [facility] [place] [facility] [address] [facility] [address] [place] [address] Bello Hilton MD 01/22/2025Orders Only [facility] [place] [facility] [address] [address] [place] [address] Medicare annual wellness visit, subsequent; Estrogen bkqgcziuqk36/23/2025bstract [facility] [address] [address] [place] [address] Bello Hilton MD 01/15/2025Telephone [facility] [address] [place] [address] Bello Hilton MD 12/20/2024bstract [facility] [facility] [address] [address] [place] [address] Bello Hilton MD 12/18/2024Telephone [facility] [place] [facility] [address] [facility] [address] [place] [address] Bello Hilton MD 08/14/2025Abstract [facility] [place] [facility] [address] [address] [place] [address] Bello Hilton MD from Last 3 Months Immunizations ImmunizationAdministration DatesNext DueModerna SARS-CoV-2 Gptkadiyflc27/10/2023 Tetanus toxoid, qccxtxip20/31/2015 Family History Medical HistoryRelationNameCommentsDiabetesFatherHeart failureSiblingSister , diagnosed with cancerKidney cancerSiblingCancerSisterHeart failure SisterRelationNameStatusCommentsFatherDeceasedMotherAliveOtherAlivespouseSibling SisterDeceased Social History Tobacco UseTypesPacks/DayYears UsedDateSmoking Tobacco: NeverSmokeless Tobacco: Never Tobacco Cessation:Counseling Given: Not Answered Alcohol UseStandard Drinks/WeekCommentsNever0 (1 standard drink = 0.6 oz pure alcohol)Caffeine intake: nonePHQ-2AnswerDate RecordedPatient Health Questionnaire-2 Twcyq240CommentsUnknownSex and Gender InformationValueDate RecordedSex Assigned at BirthNot on fileLegal SexFemale 07/14/2022 7:24 PM EDTGender IdentityNot on fileSexual OrientationNot on file Last Filed Vital Signs Vital SignReadingTime TakenCommentsBlood Hgytlttl259/7602/07/2025 9:17 AM EDT Agwxf105302/07/2025 9:17 AM UDXOoyvxwuaxao09.2 ??C (99 ??F)07/22/2023 9:04 AM EDT Respiratory Zoij6527 9:17 AM EDTOxygen Otipdrwxvb21%02/07/2025 9:17 AM EDTInhaled Oxygen Concentration--Aajyos750 kg (264 lb 3.2 oz)02/07/2025 9:17 AM QTTAlpxsm624.1 cm (5' 5 )02/07/2025 9:17 AM EDTBody Mass Index43.9702/07/2025 9:17 AM EDT Plan of Treatment Health MaintenanceDue DateLast DoneCommentsCT Qdhiwlpydsby97/01/1958FIT-DNA 1955FIT1955FOBT1955 9124Ashobuhnlkgtp74/01/1958MMR Vaccines (1 of 1 - Standard series)1958DTaP/Tdap/Td Vaccines (1 - Tdap)1964Hepatitis A Vaccines (1 of 2 - Risk 2-dose series)1976Pneumococcal Vaccine: 65+ Years (1 of 2 - PCV)1976Hepatitis B Vaccines (1 of 3 - Risk 3-dose series) 05/02/20177607Mcrysvwjjjj46Colorectal Cancer Vxdqsjvre08/15/2024 Diabetes: Hemoglobin A1C/01/2024, 04/10/2024, 02/14/2024, Additional history existsCOVID-19 Vaccine (2024- season)/01/2023, 04/02/2021, 09/15/2020, Additional history existsDiabetes: Retinopathy Screening 509/, 3Diabetes: Urine Protein Zbcbvksbz08/16/2025 02/15/2024, 06/22/20237925Tinfitmiv18, 05/11/2023, 05/11/2023, Additional history existsInfluenza Vaccine (#1)10/29/2025Postponed from 12/31/2024 (Patient Refused)Medicare Annual Wellness (AWV), 02/14/2024, 12/14/2022HIB VaccinesAged OutNo longer eligible based on patient's age to complete this topicHPV VaccinesAged OutNo longer eligible based on patient's age to complete this topicIPV VaccinesAged OutNo longer eligible based on patient's age to complete this topicMeningococcal B VaccineAged OutNo longer eligible based on patient's age to complete this topicMeningococcal VaccineAged OutNo longer eligible based on patient's age to complete this topicRotavirus VaccinesAged OutNo longer eligible based on patient's age to complete this topic Procedures Procedure NamePriorityDate/TimeAssociated DiagnosisCommentsDEXA BONE DENSITY Myhdiqz2702/18/2025 1:23 PM EDTALL LIPID PROFILE (FASTING)Vwmhibd2902/02/2025 11:55 AM EDT [facility] CMP (CMP) (FOR REMOTE [facility] USE)Bozjgah4602/02/2025 11:55 AM EDT MLR HEMOGLOBIN R0VEgzhwcq62/04/2025 11:55 AM EDT ALL CBC WITH AUTO KFWKZmflzgo30/04/2025 11:55 AM EDT TBH MICROALB CREAT RATIO MQLYZHZardkyh53/04/2025 11:48 AM EDT MM TOMOSYNTHESIS SCREENING BI05/31/2024 4:09 PM EST MICROALBUMIN / CREATININE URINE TJZWBCagyhot62/16/2024 10:14 AM EDT Medicare annual wellness visit, subsequent Type 2 diabetes mellitus without complication, without long-term current use of insulin (HCC) POCT GLYCATED HEMOGLOBIN, GCYCIMbnwfvz92/15/2024 9:35 AM EDT Medicare annual wellness visit, subsequent Type 2 diabetes mellitus without complication, without long-term current use of insulin (HCC) DIABETIC RETINOPATHY SCREENING - OU - BOTH UEEUIhmfdjd04/26/2023 8:39 AM EDT PXUENWEWMTVVmiznko06/15/2019 12:00 PM EDT from Last 3 Months or Most Recently Relevant to Health Maintenance Results * DEXA bone density (02/18/2025 1:23 PM EDT)Anatomical RegionLateralityModality BodyRadiographic Imaging Narrative Authorizing ProviderResult TypeResult StatusNoms Provider Unallocated MDIMG DXA PROCEDURESFinal Result * (ABNORMAL) MLR HEMOGLOBIN A1C (02/02/2025 11:55 AM EDT)ComponentValueRef Range Test MethodAnalysis TimePerformed AtPathologist SignatureGLYCOHEMOGLOBIN A1C 6.4(H)4.5 - 6.2 %TBHComment: ADA RECOMMENDED LIMIT 4.0 - 6.0 ADA THERAPEUTIC TARGET < 7.0 ACTION SUGGESTED > 7.0 ESTIMATED AVERAGE PRAVZKD797mt/dLTBHSpecimen (Source)Anatomical Location / LateralityCollection Method / VolumeCollection TimeReceived Time02/02/2025 11:55 AM EDT1 12:08 PM EDT Narrative MARCELINA - 02/02/2025 12:30 PM EDT Authorizing ProviderResult TypeResult StatusDanijered Hilton MDCLINISYNCFinal ResultPerforming OrganizationAddressCity/State/ZIP CodePhone Number CLINISYVAL TBH * (ABNORMAL) [facility] CMP (CMP) (FOR REMOTE [facility] USE) (02/02/2025 11:55 AM EDT) ComponentValueRef RangeTest MethodAnalysis TimePerformed AtPathologist QhpdhnpfoVZDNCZ019656 - 145 mmol/LTBHPOTASSIUM4.23.5 - 5.1 mmol/LTBHCHLORIDE 23198 - 107 mmol/LTBHCARBON RAHVQAQ19.921.0 - 32.0 mmol/LTBHANION GAP12.3TBH LTUQTJD588(H)74 - 106 mg/dLTBHBLOOD UREA MXGIEJQK36.07.0 - 18.0 mg/dLTBH CREATININE0.750.55 - 1.02 mg/dLTBHTBH EGFR-AF CITIZEN [place]>60>=60 mL/min/1.73m 2 TBHTBH EGFR-NON AF CITIZEN OF [place]>60>=60 mL/min/1.73m 2TBHBUN CREATININE RATIO14.7 TBHCALCIUM9.08.5 - 10.1 mg/dLTBHBILIRUBIN TOTAL0.60.2 - 1.0 mg/dLTBHASPARTATE AMINO PFYSMLUPNDE34(L)15 - 37 U/LTBHALANINE BSKVWGVJSZZFHPHP4547 - 59 U/LTBH ALKALINE WAMNXZULKXT73249 - 116 U/LTBHTOTAL PROTEIN7.66.4 - 8.2 g/dLTBHALBUMIN LEVEL3.73.4 - 5.0 g/dLTBHGLOBULIN3.9g/dLTBHALBUMIN GLOBULIN RATIO0.9TBH Specimen (Source)Anatomical Location / LateralityCollection Method / Volume Collection TimeReceived Time02/02/2025 11:55 AM EDT1 12:08 PM EDT Narrative MARCELINA - 02/02/2025 12:33 PM EDT Authorizing ProviderResult TypeResult StatusDakenisha Hilton [facility] WEATHERFORDLINISYNCFinal ResultPerforming OrganizationAddressCity/State/ZIP CodePhone Number MARCELINA TB * (ABNORMAL) ALL LIPID PROFILE (FASTING) (02/02/2025 11:55 AM EDT)ComponentValue Ref RangeTest MethodAnalysis TimePerformed AtPathologist Signature PNHGVTNJPBOWW823(H)<=150 mg/cJTVEVEQFNVIGUHS887<=200 mg/dLTBHHDL DURSJEEGGXW88 40 - 60 mg/dLTBHComment: > or =60 mg/dl - LOW CARDIOVASCULAR RISK <40 mg/dl - HIGH CARDIOVASCULAR RISK LDL CHOLESTEROL MAMRLBUIXI99.0mg/dLTBHComment: <100 mg/dl OPTIMAL 100-129 mg/dl NEAR OR ABOVE OPTIMAL 130-159 mg/dl BORDERLINE HIGH 160-189 mg/dl HIGH >190 mg/dl VERY HIGH VLDL VMHAHQMGADH05.0mg/dLTBHCHOL HDL RATIO3.2TBHComment: 3.3 - 4.4 ?? LOW RISK 4.4 - 7.1 ?? AVERAGE RISK 7.1 - 11.0 ??MODERATE RISK >11.0 HIGH RISK Specimen (Source)Anatomical Location / LateralityCollection Method / Volume Collection TimeReceived Time02/02/2025 11:55 AM EDT1 12:08 PM EDT Narrative MARCELINA - 02/02/2025 12:40 PM EDT Authorizing ProviderResult TypeResult StatusBello Hilton [facility] WEATHERFORDLINISYNCUtica Psychiatric Centeral ResultPerforming OrganizationAddressty/State/ZIP CodePhone Number MARCELINA TB * (ABNORMAL) ALL CBC WITH AUTO DIFF (02/02/2025 11:55 AM EDT)ComponentValueRef RangeTest MethodAnalysis TimePerformed AtPathologist SignatureTBH WBC7.64.0 - 11.0 10 3/uLTBHTBH RBC4.17(L)4.20 - 5.40 10 6/uLTBHTBH HGB12.512.0 - 16.0 g/dL TBHTBH HCT37.836.0 - 48.0 %TBHTBH MCV90.681.0 - 99.0 fLTBHTBH MCH30.026.7 - 34.0 pgTBHTBH MCHC33.129.9 - 35.2 g/dLTBHTBH RDW12.811.0 - 15.0 %TBHTBH MMW393 150 - 450 10 3/uLTBHTBH MPV9.89.5 - 13.5 fLTBHNEUTROPHILS PERCENT AUTO70.243.0 - 75.0 %TBHLYMPHOCYTES PERCENT AUTO20.4(L)20.5 - 60.0 %TBHMONOCYTES PERCENT AUTO6.41.7 - 12.0 %TBHTBH EO %1.00.9 - 7.0 %TBHBASOPHILS PERCENT AUTO0.70.2 - 2.0 %TBHIMMATURE GRANULOCYTES PCT AUTO1.3(H)0.0 - 0.5 %TBHNEUTROPHILS ABSOLUTE AUTO5.41.4 - 6.5 10 3/uLTBHLYMPHOCYTES ABSOLUTE AUTO1.61.2 - 3.8 10 3/uLTBH MONOCYTES ABSOLUTE AUTO0.50.3 - 0.8 10 3/uLTBHTBH EO #0.10.0 - 0.7 10 3/uLTBH BASOPHILS ABSOLUTE AUTO0.10.0 - 0.1 10 3/uLTBHIMMATURE GRANULOCYTES ABS AUTO 0.10(H)0.00 - 0.03 10 3/uLTBHSpecimen (Source)Anatomical Location / Laterality Collection Method / VolumeCollection TimeReceived Time02/02/2025 11:55 AM EDT 02/02/2025 12:08 PM EDT Narrative CLINISYNC - 02/02/2025 12:30 PM EDT Authorizing ProviderResult TypeResult StatusDanijered Hilton MDCLINISYNCFinal ResultPerforming OrganizationAddressCity/State/ZIP CodePhone Number [facility] * TB MICROALB CREAT RATIO RANDOM (02/02/2025 11:48 AM EDT)ComponentValueRef RangeTest MethodAnalysis TimePerformed AtPathologist SignatureMICROALBUMIN URINE RANDOM<1.3<=30.0 mg/dLTBHCREATININE URINE QJBEJY418.9420.00 - 300.00 mg/dLTBHSpecimen (Source)Anatomical Location / LateralityCollection Method / VolumeCollection TimeReceived Time02/02/2025 11:48 AM EDT1 12:08 PM EDT Narrative CLINISYNC - 02/02/2025 12:30 PM EDT Authorizing ProviderResult TypeResult StatusDanijered Hilton MDCLINISYNCFinal ResultPerforming OrganizationAddressCity/State/ZIP CodePhone Number CLINISYNC TBH * MM TOMOSYNTHESIS SCREENING BI (05/31/2024 4:09 PM EST)Anatomical Region LateralityModalityOtherSpecimen (Source)Anatomical Location / Laterality Collection Method / VolumeCollection TimeReceived Time05/31/2024 4:09 PM EST Narrative 05/31/2024 4:09 PM EST [facility] ?[address] ? [place] [address] ? Mammography Report ? Signed ? Patient: BETTE VILLAFANA ?MR#: [id number] ?? : 1955 ?Acct:[id number] ?? Age/Sex: 69 / F ?ADM Date: 05/30/ ?? Loc: MAMMO ? Attending Dr: BELLO HILTON ? Ordering Physician: BELLO HILTON ? Results: ? Date of Service: 05/30/ ?Follow Up: ? Procedure(s): MM tomosynthesis screening BI ?? Accession Number(s): [id number] ? cc: BELLO HILTON ? Patient Name: ? BETTE ADOLFOCASIMIRO ? MR#: [id number] ? : 1955 ? Exam Date: 05/30/2024 ?? Ordering Doctor: DR BELLO HILTON M.D. ? RADIOLOGY REPORT ? PROCEDURE: ? MM TOMOSYNTHESIS SCREENING BI ? COMPARISON: ? MM TOMOSYNTHESIS SCREENING BI, 05/11/2023. ??MG MAMM SCREEN 3D ?? ALFA CAD, 05/11/2022. ??MG MAMM SCREEN 3D ALFA CAD, 05/05/2021. ??MG MAMM ALFA SCRN W ?? CAD DIG, 04/19/2013. ? INDICATIONS: ? Screening ? Calculator Name ? NCI Breast Cancer Risk Assessment Tool ?? 5 Year Breast Cancer Risk ? 3.00% ?? Lifetime Breast Cancer Risk ? 10.20% ?? Personal Breast Cancer ?No ?? Personal Ovarian Cancer ? No ?? Treatments ? None ?? Family Cancers ? Mother with breast cancer at age 75; Aunt-maternal with ?? breast cancer at age ??70; Brother with kidney cancer at age ??50. ? LOCATION: ? [facility] ? BREAST COMPOSITION: ? The breasts are almost entirely fatty. ? FINDINGS: ? DIAGNOSTIC CATEGORY 2--BENIGN FINDING: ? RIGHT BREAST: ??No significant suspicious finding. ??Scattered benign-appearing ?? calcifications are present. ??No significant change has occurred. ? LEFT BREAST: ??No significant suspicious finding. ??Scattered benign-appearing ?? calcifications are present. ??No significant change has occurred. ? RECOMMENDATIONS: ? ROUTINE MAMMOGRAM AND CLINICAL EVALUATION IN 12 MONTHS. ? PLEASE NOTE: ??A NORMAL MAMMOGRAM DOES NOT EXCLUDE THE POSSIBILITY OF BREAST ?? CANCER. ??A CLINICALLY SUSPICIOUS PALPABLE LUMP SHOULD BE BIOPSIED. ? Dictated by: Abdias Romeo M.D. on 05/31/2024 at 16:06 ? Approved by: Abdias Romeo M.D. on 05/31/2024 at 16:08 ? Dictated By: ?Abdias Romeo M.D. ? Signed By: ?05/31/24 1609 ? DD/ 1609 ? TD/TT: ? Artist Mannequin Coloring: Procedure Note Radiology, Radiologist, MD - 01/30/2025 [place] [address] Mammography Report Signed Patient: BETTE VILLAFANA SMR#: [id number] : 8Acct:[id number] Age/Sex: 69 / FADM Date: 05/30/24 Loc: MAMMO Attending Dr: BELLO HILTON Ordering Physician: BELLO HILTONResults: Date of Service: 05/30/24Follow Up: Procedure(s): MM tomosynthesis screening BI Accession Number(s): [id number] cc: NANDA HLITONEL Patient Name: BETTE VILLAFANA MR#: [id number] : 1955 Exam Date: 05/30/2024 Ordering Doctor: DR BELLO HILTON M.D. RADIOLOGY REPORT PROCEDURE: MM TOMOSYNTHESIS SCREENING BI COMPARISON: MM TOMOSYNTHESIS SCREENING BI, 05/11/2023. MG MAMM CCMISF1B ALFA CAD, 05/11/2022. MG MAMM SCREEN 3D ALFA CAD, 05/05/2021. MG MAMM BILSCRN W CAD DIG, 04/19/2013. INDICATIONS: Screening Calculator Name NCI Breast Cancer Risk Assessment Tool 5 Year Breast Cancer Risk 3.00% Lifetime Breast Cancer Risk 10.20% Personal Breast Cancer No Personal Ovarian Cancer No Treatments None Family Cancers Mother with breast cancer at age 75; Aunt-maternal with breast cancer at age 70; Brother with kidney cancer at age 50. LOCATION: [facility] BREAST COMPOSITION: The breasts are almost entirely fatty. FINDINGS: DIAGNOSTIC CATEGORY 2--BENIGN FINDING: RIGHT BREAST: No significant suspicious finding. Scatteredbenign-appearing calcifications are present. No significant change has occurred. LEFT BREAST: No significant suspicious finding. Scatteredbenign-appearing calcifications are present. No significant change has occurred. RECOMMENDATIONS: ROUTINE MAMMOGRAM AND CLINICAL EVALUATION IN 12 MONTHS. PLEASE NOTE: A NORMAL MAMMOGRAM DOES NOT EXCLUDE THE POSSIBILITY OFBREAST CANCER. A CLINICALLY SUSPICIOUS PALPABLE LUMP SHOULD BE BIOPSIED. Dictated by: Abdias Romeo M.D. on 05/31/2024 at 16:06 Approved by: Abdias Romeo M.D. on 05/31/2024 at 16:08 Dictated By: Abdias Romeo M.D. Signed By:05/31/241608 DD/ 08 TD/TT: Artist Mannequin Coloring: Authorizing ProviderResult TypeResult Iftikhar Hilton MDCLINISYNC IMAGING Final Result * Microalbumin / creatinine, urine ratio (02/15/2024 10:14 AM EDT)ComponentValue Ref RangeTest MethodAnalysis TimePerformed AtPathologist SignatureCREATININE, RANDOM DZREF33854 - 275 mg/dLQUESTALBUMIN, URINE1.3See Note: mg/dLQUEST Comment: Reference Range: Reference Range Not established ALBUMIN/CREATININE RATIO, RANDOM URINE6<30 mg/g creatQUESTComment: The ADA defines abnormalities in albumin excretion as follows: Albuminuria Category ?Result (mg/g creatinine) Normal to Mildly increased <30 Moderately increased ? 30-299 Severely increased > OR = 300 The ADA recommends that at least two of three specimens collected within a 3-6 month period be abnormal before considering a patient to be within a diagnostic category. Specimen (Source)Anatomical Location / LateralityCollection Method / Volume Collection TimeReceived TimeUrineUrine specimen obtained by clean catch procedure / Buiylku1602/15/2024 10:14 AM EDT1 10:14 AM EDT Narrative Resulting Agency Comment Performing Organization Information ?Site ID: [id number] ?Name: [employer] [facility] ?Address: [address] [place] [address], [address] [place] [id number] ?Director: Keyshawn Alfonso MD Authorizing ProviderResult TypeResult Tori Shepherd NPLAB URINE ORDERABLESFinal ResultPerforming OrganizationAddressCity/State/ZIP CodePhone Number [facility] * POCT Glycated hemoglobin, total (02/14/2024 9:35 AM EDT)ComponentValueRef RangeTest MethodAnalysis TimePerformed AtPathologist SignatureHemoglobin A1C 5.9Specimen (Source)Anatomical Location / LateralityCollection Method / Volume Collection TimeReceived PpnqLxewb45/15/2024 9:35 AM EDT Narrative Authorizing ProviderResult TypeResult Tori Shepherd NPPOINT OF CARE TEST ENTER/EDIT ORDERABLESFinal Result * Diabetic Retinopathy Screening - OU - Both Eyes (01/25/2023 8:39 AM EDT) ComponentValueRef RangeTest MethodAnalysis TimePerformed AtPathologist SignatureRESULTSNDRAnatomical RegionLateralityModalityHeadOther Narrative Authorizing ProviderResult TypeResult StatusZulma Glaser PAOPHTH PHOTOGRAPHY Final Result * Colonoscopy (07/14/2018 12:00 PM EDT)Anatomical RegionLateralityModality EndoscopySpecimen (Source)Anatomical Location / LateralityCollection Method / VolumeCollection TimeReceived Time07/14/2018 12:00 PM EDT Narrative 07/14/2018 12:00 PM EDT PERFORMED AT [facility] LOCATION:[id number] polyp-tub.adenoma-repeat 5 years Procedure Note CONVERSION, GENERIC - 09/15/2022 PERFORMED AT [facility] LOCATION:[id number] polyp-tub.adenoma-repeat 5 years Authorizing ProviderResult TypeResult StatusBello Hilton MDENDOSCOPY PROCEDURE ORDERABLESFinal Result from Last 3 Months or Most Recently Relevant to Health [place] [address] Care Teams Team MemberRelationshipSpecialtyStart DateEnd Bello Hilton MD [address] [address] [facility] - [facility]09/21/22 Cristina Shepherd NP [address] [facility] [address] [place] [address] PCP - ACO [facility]06/08/24
--- OUTSIDE RECORDS SUMMARY | 2025-02-27 15:08 | XMS_ITS | Encounter Summary ---
Author Organization [facility] Address [address] [place] [address] Care Team Providers Care Fitter'S Assistant Name Role Phone Bello Hilton MD Primary Care Provider [phone] Cristina Shepherd NP Unavailable [phone] Encounter Details DateTypeDepartmentCare Team (Latest Contact Info)Magmsnktydr15/19/2024Clinisync Result Encounter [facility] External Department Unsolicited Provider, Generic External Data Social History Tobacco UseTypesPacks/DayYears UsedDateSmoking Tobacco: NeverSmokeless Tobacco: NeverAlcohol UseStandard Drinks/WeekCommentsNever0 (1 standard drink = 0.6 oz pure alcohol)Caffeine intake: nonePHQ-2AnswerDate RecordedPatient Health Questionnaire-2 [id number] and Gender InformationValueDate RecordedSex Assigned at BirthNot on fileLegal SexFemale 07/14/2022 7:24 PM EDTGender IdentityNot on fileSexual OrientationNot on file documented as of this encounter Functional Status * Over the past 2 weeks, how often have you been bothered by any of the following problems?QuestionAnswerDate of AssessmentAuthorLittle interest or pleasure in doing thingsNot at all02/07/2025 8:00 AM Jany Beard LPN Feeling down, depressed, or hopelessNot at all02/07/2025 8:00 AM Jany Beard LPNPatient Health Questionnaire-2 [id number] 8:00 AM Jany Beard LPN * QuestionAnswerDate of AssessmentAuthorTrouble falling or staying asleep, or sleeping too muchNot at all02/07/2025 8:00 AM Jany Beard LPNFeeling tired or having little energyNot at all02/07/2025 8:00 AM Jany Beard LPNPoor appetite or overeatingNot at all02/07/2025 8:00 AM Jany Beard LPNFeeling bad about yourself - or that you are a failure or have let yourself or your family downNot at all02/07/2025 8:00 AM Jany Beard LPNTroujose concentrating on things, such as reading the newspaper or watching television Not at all02/07/2025 8:00 AM Jany Beard LPNMoving or speaking so slowly that other people could have noticed? Or the opposite - being so fidgety or restless that you have been moving around a lot more than usual.Not at all 02/07/2025 8:00 AM Jany Beard LPNThoughts that you would be better off or hurting yourself in some wayNot at all02/07/2025 8:00 AM Jany Beard LPNPatient Health Questionnaire-9 [id number] 8:00 AM Jany Beard LPN documented as of this encounter Plan of Treatment Not on file documented as of this encounter Procedures Procedure NamePriorityDate/TimeAssociated DiagnosisCommentsCT ABDOMEN WO/W CON 04/19/2024 5:04 AM EST documented in this encounter Results * CT ABDOMEN WO/W CON (04/19/2024 5:04 AM EST)Anatomical RegionLaterality ModalityRadiographic ImagingSpecimen (Source)Anatomical Location / Laterality Collection Method / VolumeCollection TimeReceived Time04/19/2024 5:04 AM EST Narrative 04/19/2024 5:07 AM EST [facility] ?[address] ? [place] [address] ? CT Scan Report ? Signed ? Patient: GITTINGER,BETTE S ?MR#: [id number] ?? : 1955 ?Acct:[id number] ?? Age/Sex: 68 / F ?ADM Date: 12/18/24 ?? Loc: LAB ? Attending Dr: Non-Staff Physician Migel ? Ordering Physician: Physician,Non-Staff Migel ?? Date of Service: 04/18/24 ?? Procedure(s): CT abdomen wo/w con ?? Accession Number(s): [id number] ? cc: JUANITABELLO ? [facility] ? [address] ? [place] [address] ? Patient Name: ?? BETTE VILLAFANA ? MRN: [facility]:[id number] ? date: 1955 ?Sex: F ?? Assigned Patient Location: LAB ?? Current Patient Location: ? Accession/Order Number: [id number] ?? Exam Date: 04/18/2024 ??08:05 ?Report Date: 04/19/2024 ??05:04 ? At the request of: ?? NON-STAFF ??PHYSICIAN ? Procedure: ??CT abdomen wo/w con ? EXAMINATION: CT abdomen wo/w con ? HISTORY: Adrenal nodule, E27.9 ? COMPARISON: CT abdomen pelvis 05/15/2023 ? TECHNIQUE: Axial, Coronal, and Sagittal images were obtained without and/or ?? with IV contrast as indicated by examination type. Dose reduction techniques ?? were achieved by using automated exposure control and/or adjustment of mA ?? and/or kV according to patient size and/or use of iterative reconstruction ?? technique ? FINDINGS: ?? LUNG BASES: No visible pulmonary or pleural disease. ?? LIVER: No enlargement, atrophy, abnormal density, or significant focal lesion. ?? BILIARY: Cholecystectomy. ?? PANCREAS: No lesion, fluid collection, ductal dilatation, or atrophy. ?? SPLEEN: No enlargement or focal lesion. ?? ADRENALS: 1.0 cm right adrenal nodule with 71% absolute washout and 48% ?? relative washout which are both predicted of an adrenal adenoma. ?? KIDNEYS: Small right renal cyst. No mass, obstruction, or calcification. ?? BOWEL/MESENTERY: No visible mass, obstruction, or bowel wall thickening. ?? AORTA/VASCULAR: No aneurysm or dissection. ?? RETROPERITONEUM: No mass or adenopathy. ?? ABDOMINAL WALL: No mass or hernia. ?? BONES: No bony lesion or fracture. ?? OTHER: Negative. ? CT/CT abdomen wo/w con ?? IMPRESSION: ? 1. Right adrenal gland 1.0 cm nodule most compatible with a benign adenoma. No ? additional follow-up recommended at this time. ? Electronically authenticated by: CAROL ??SILVA ?? Date: 04/19/2024 ??05:04 ? Dictated By: ?Carol Romeo M.D. ? Signed By: ?04/19/24506 ? DD/ 3 ? TD/TT: ? Book Critic: Procedure Note Radiology, Radiologist, MD - 04/19/2024 [place] [address] CT Scan Report Signed Patient: BETTE VILLAFANA SMR#: [id number] : 1955cct:[id number] Age/Sex: 68 / FADM Date: 04/18/24 Loc: LAB Attending Dr: Non-Staff Physician Migel Ordering Physician: Branden Brown M.D. Date of Service: 04/18/24 Procedure(s): CT abdomen wo/w con Accession Number(s): [id number] cc: BELLO HILTON [place] [address] Patient Name: BETTE VILLAFANA MRN: [id number] date: 1955 Sex: F Assigned Patient Location: LAB Current Patient Location: Accession/Order Number: [id number] Exam Date: 04/18/2024 08:05 Report Date: 04/19/2024 05:04 At the request of: NON-STAFF PHYSICIAN Procedure: CT abdomen wo/w con EXAMINATION: CT abdomen wo/w con HISTORY: Adrenal nodule, E27.9 COMPARISON: CT abdomen pelvis 05/15/2023 TECHNIQUE: Axial, Coronal, and Sagittal images were obtained withoutand/or with IV contrast as indicated by examination type. Dose reductiontechniques were achieved by using automated exposure control and/or adjustment of mA and/or kV according to patient size and/or use of iterative reconstruction technique FINDINGS: LUNG BASES: No visible pulmonary or pleural disease. LIVER: No enlargement, atrophy, abnormal density, or significant focallesion. BILIARY: Cholecystectomy. PANCREAS: No lesion, fluid collection, ductal dilatation, or atrophy. SPLEEN: No enlargement or focal lesion. ADRENALS: 1.0 cm right adrenal nodule with 71% absolute washout and 48% relative washout which are both predicted of an adrenal adenoma. KIDNEYS: Small right renal cyst. No mass, obstruction, or calcification. BOWEL/MESENTERY: No visible mass, obstruction, or bowel wall thickening. AORTA/VASCULAR: No aneurysm or dissection. RETROPERITONEUM: No mass or adenopathy. ABDOMINAL WALL: No mass or hernia. BONES: No bony lesion or fracture. OTHER: Negative. CT/CT abdomen wo/w con IMPRESSION: 1. Right adrenal gland 1.0 cm nodule most compatible with a benignadenoma. No additional follow-up recommended at this time. Electronically authenticated by: CAROL ROMEO Date: 04/19/2024 05:04 Dictated By: Carol Romeo M.D. Signed By:04/19/24 0507 DD/ 0504 TD/TT: Book Critic: Authorizing ProviderResult TypeResult StatusGeneric External Data ProviderIMG XR PROCEDURESFinal Result documented in this encounter Visit Diagnoses Not on filedocumented in this encounter Care Teams Team MemberRelationshipSpecialtyStart DateEnd Date Bello Hilton MD [address] [facility] [address] [place] [address] PCP - GeneralInternal Medicine09/21/22 Cristina Shepherd NP [address] [facility] [address] [place] [address] PCP - ACO Reach06/08/24documented as of this encounter
--- OUTSIDE RECORDS SUMMARY | 2025-02-27 15:08 | XMS_ITS | Encounter Summary ---
Author Organization [facility] Address [address] [facility] [place] [address] Care Team Providers Care Patient Care Coordinator Name Role Phone Bello Hilton MD Primary Care Provider [phone] Cristina Shepherd INSTRUCTOR ADJUNCT SURGICAL TECHNICIAN Unavailable [phone] Encounter Details DateTypeDepartmentCare Team (Latest Contact Info)Mtxthhxcgdf89/20/2025bstract [facility] [address] [facility] [address] [place] [address] Bello Hilton MD [address] [facility] [address] [place], [place] [address] Social History Tobacco UseTypesPacks/DayYears UsedDateSmoking Tobacco: NeverSmokeless Tobacco: NeverAlcohol UseStandard Drinks/WeekCommentsNever0 (1 standard drink = 0.6 oz pure alcohol)Caffeine intake: nonePHQ-2AnswerDate RecordedPatient Health Questionnaire-2 [id number] and Gender InformationValueDate RecordedSex Assigned at BirthNot on fileLegal SexFemale 07/14/2022 7:24 PM EDTGender IdentityNot on fileSexual OrientationNot on file documented as of this encounter Plan of Treatment Not on file documented as of this encounter Visit Diagnoses Not on filedocumented in this encounter Additional Health Concerns AssessmentNoted TimePHQ-9 Depression Total Score: 8:00 AM EDT documented as of this encounter Care Teams Team MemberRelationshipSpecialtyStart DateEnd Date Bello Hilton MD [address] [facility] [address] [place] [address] PCP - GeneralInternal Medicine09/21/22 Cristina Shepherd INSTRUCTOR ADJUNCT SURGICAL TECHNICIAN [address] [facility] [address] [place] [address] PCP - ACO Reach06/08/24documented as of this encounter
--- OUTSIDE RECORDS SUMMARY | 2025-02-27 15:08 | XMS_ITS | Encounter Summary ---
Author Organization [facility] Address [address] [place] [address] Care Team Providers Care Inside Phone Sales Name Role Phone Bello Hilton MD Primary Care Provider [phone] Cristina Shepherd ATTENDING ANESTHESIOLOGIST Unavailable [phone] Encounter Details DateTypeDepartmentCare Team (Latest Contact Info)Mkwchnbxjkp40/10/2024linisync Result Encounter [facility] External Department Unsolicited Bello Hilton MD [address] [facility] [address] [place] [address] Social History Tobacco UseTypesPacks/DayYears UsedDateSmoking Tobacco: NeverSmokeless Tobacco: NeverAlcohol UseStandard Drinks/WeekCommentsNever0 (1 standard drink = 0.6 oz pure alcohol)Caffeine intake: nonePHQ-2AnswerDate RecordedPatient Health Questionnaire-2 [id number] and Gender InformationValueDate RecordedSex Assigned at BirthNot [...] 8:00 AM Jany Beard LPNPatient Health Questionnaire-2 [id number] 8:00 AM Jany Beard LPN * QuestionAnswerDate of AssessmentAuthorTrouble falling or staying asleep, or sleeping too muchNot at all02/07/2025 8:00 AM EDTJany Nino LPNFeeling tired or having little energyNot at all02/07/2025 8:00 AM Jany Beard LPNPoor appetite or overeatingNot at all02/07/2025 8:00 AM Jany Beard LPNFeeling bad about yourself - or that you are a failure or have let yourself or your family downNot at all02/07/2025 8:00 AM Jany Beard LPNTrouble concentrating on things, such as reading the [...] 8:00 AM Jany Beard LPNPatient Health Questionnaire-9 [id number] 8:00 AM Jany Beard LPN documented as of this encounter Plan of Treatment Not on file documented as of this encounter Procedures Procedure NamePriorityDate/TimeAssociated DiagnosisCommentsMM TOMOSYNTHESIS SCREENING BI05/11/2023 3:54 PM EST documented in this encounter Results * MM TOMOSYNTHESIS SCREENING (05/11/2023 3:54 PM EST)Anatomical Region LateralityModalityOtherSpecimen (Source)Anatomical Location / Laterality Collection Method / VolumeCollection TimeReceived Time05/11/2023 3:54 PM EST Narrative 05/11/2023 3:54 PM EST [facility] ?[address] ? [place] [address] ? Mammography Report ? Signed ? Patient: GITTINGER,BETTE S ?MR#: [id number] ?? : 1955 ?Acct:[id number] ?? Age/Sex: 68 / F ?ADM Date: 01/10/24 ?? Loc: MAMMO ? Attending Dr: BELLO HILTON ? Ordering Physician: BELLO HILTON ? Results: ? Date of Service: 05/11/23 ?Follow Up: ? Procedure(s): MM tomosynthesis screening BI ?? Accession Number(s): [id number] ? cc: BELLO HILTON ? Patient Name: ? BETTE VILLAFANA ? MR#: [id number] ? : 1955 ? Exam Date: 05/11/2023 ?? Ordering Doctor: DR BELLO HILTON M.D. ? RADIOLOGY REPORT ? PROCEDURE: ? MM TOMOSYNTHESIS SCREENING BI ? COMPARISON: ? MG MAMM SCREEN 3D ALFA CAD, 05/11/2022. ??MG MAMM SCREEN 3D ALFA ?? CAD, 05/05/2021. ??MG MAMM SCREEN ALFA W CAD, 05/05/2020. ??MG MAMM ALFA SCRN W CAD ?? DIG, 04/19/2013. ? INDICATIONS: ? screening ? Calculator Name ? NCI Breast Cancer Risk Assessment Tool ?? 5 Year Breast Cancer Risk ? 3.00% ?? Lifetime Breast Cancer Risk ? 10.60% ?? Personal Breast Cancer ?No ?? Personal Ovarian Cancer ? No ?? Treatments ? None ?? Family Cancers ? Mother with breast cancer at age 75; Aunt-maternal with ?? breast cancer at age ??70; Brother with kidney cancer at age ??50. ? LOCATION: ? [facility] ? BREAST COMPOSITION: ? Almost entirely fatty. ? FINDINGS: ? DIAGNOSTIC CATEGORY [...] ? Dictated by: Abdias Romeo M.D. on 05/11/2023 at 15:47 ? Approved by: Abdias Romeo M.D. on 05/11/2023 at 15:53 ? Dictated By: ?Abdias Romeo M.D. ? Signed By: ?05/11/23 1554 ? DD/ ? TD/TT: ? Solar Sales Advisor: Procedure Note Radiology, Radiologist, MD - 05/11/2023 [place] [address] Mammography Report Signed Patient: BETTE VILLAFANA SMR#: [id number] : 8Acct:[id number] Age/Sex: 68 / FADM Date: 05/11/23 Loc: MAMMO Attending Dr: BELLO HILTON Ordering Physician: BELLO HILTONResults: Date of Service: 05/11/23Follow Up: Procedure(s): MM tomosynthesis screening BI Accession Number(s): [id number] cc: BELLO HILTON Patient Name: BETTE VILLAFANA MR#: [id number] : 1955 Exam Date: 05/11/2023 Ordering Doctor: DR BELLO HILTON M.D. RADIOLOGY REPORT PROCEDURE: MM TOMOSYNTHESIS SCREENING BI COMPARISON: MG MAMM SCREEN 3D ALFA CAD, 05/11/2022. MG MAMM SCREEN 3DBIL CAD, 05/05/2021. MG MAMM SCREEN ALFA W CAD, 05/05/2020. MG MAMM ALFA SCRN WCAD DIG, 04/19/2013. INDICATIONS: screening Calculator Name NCI Breast Cancer Risk Assessment Tool 5 Year Breast Cancer Risk 3.00% Lifetime Breast Cancer Risk 10.60% Personal Breast Cancer No Personal Ovarian Cancer No Treatments None Family Cancers Mother with breast cancer at age 75; Aunt-maternal with breast cancer at age 70; Brother with kidney cancer at age 50. LOCATION: [facility] BREAST COMPOSITION: Almost entirely fatty. FINDINGS: [...] BIOPSIED. Dictated by: Abdias Romeo M.D. on 05/11/2023 at 15:47 Approved by: Abdias Romeo M.D. on 05/11/2023 at 15:53 Dictated By: Abdias Romeo M.D. Signed By:05/11/23 1554 DD/ 1554 TD/TT: Solar Sales Advisor: Authorizing ProviderResult TypeResult StatusDakenisha Hilton MDCLINISYNC IMAGING Final Result documented in this encounter Visit Diagnoses Not on filedocumented in this encounter Care Teams Team MemberRelationshipSpecialtyStart DateEnd Date Bello Hilton MD [address] [facility] [address] [place] [address] PCP - GeneralInternal Medicine09/21/22 Cristina Shepherd NP [address] [facility] [address] [place] [address] PCP - ACO Reach06/08/24documented as of this encounter
--- OUTSIDE RECORDS SUMMARY | 2025-02-27 15:12 | XMS_ITS | CCD ---
Author Organization [facility] CliniSyor Care Team Providers Care Commuter Pilot Name Role Phone Ronnie Murphy Unavailable Unavailable [...] DR CAROL Chowdhury Consulting Unavailable YOBANI, DR MONSALVE Primary Care Unavailable HEMMER, DR ZULMA Greenberg [...] Unavailable Primary Care Provider Unavailabl e Guerita, ELECTRICAL FITTER Lilliam C Attending Provider TANESHA Hilton Primary Care Provider MD Mayito Ynag Attending Provider BELLO HILTON Primary Care Physician Emiliano Lagos Attending Unavailable Mayito YANG Attending Unavailable SHAIKH CORDOBA Referring Unavailable Mayito YANG Attending Unavailable Hilton, II Bello Primary Care Provider MD Mayito Yang Attending Provider ORVILLE Dexter Attending Provider DO Serg Boucher Emergency Provider MD Ben Wasserman Attending Provider Hilton, II Bello Primary Care Provider [phone] ORVILLE Dexter Attending Provider Hilton, II Bello Primary Care Provider [phone] MD Ben Wasserman Attending Provider Bello Hilton MD Primary Care Provider Bello Hilton MD Primary Care Provider Yobani II, Bello Primary Care Provider [phone] Ben Wasserman MD Attending Provider BELLO HILTON Primary Care Unavailable CRISTINA HUBBARD Referring Unavailable BELLO HILTON Primary Care Unavailable Cora HR SPECIALIST, Cristina Greenberg Unavailable Yobani IIBello Primary Care Provider ScalLilliam rodas APRN Attending Provider Ben Wasserman MD Attending Provider Caryl Meléndez MD Attending Provider Yobani IIBello Primary Care Provider ScalLilliam rodas APRN Attending Provider Maricel Shultz RD Attending Provider Unavailable RONNIE MURPHY Attending Unavailable BELLO HILTON B Primary Care Unavailable DOMINIC SALDANA Attending Unavailable BELLO HILTON B Primary Care Unavailable DOMINIC SALDANA Attending Unavailable HILTON, BELLO B Primary Care Unavailable ZULMA MOE Attending Unavailable CRISTINA HUBBARD Attending Unavailable CRISTINA HUBBARD Attending Unavailable ZULMA MOE Attending Unavailable Bello Hilton Primary Care Unavailable Caryl Meléndez Admitting Unavailable Caryl Meléndez Attending Unavailable Brian Mtz Referring Unavailable Sage Meléndeza Admitting Unavailable Caryl Meléndez Attending Unavailable Bello Hilton Primary Care Unavailable Ben Wasserman Admitting Unavailab Ben Melendez Attending Unavailab le Bello Hilton Primary Care Unavailable Allergies Allergy ClassificationReported Allergen(s)Allergy TypeDate of OnsetReaction(s) Facility (1 source)No Known Medication Allergies; Translations: [No Known Medication Allergies]Propensity to adverse reactions (disorder)[facility] Repository Medications Current Medications MedicationDrug Class(es)DatesSig (Normalized)Sig (Original)0.25 MG, 0.5 MG Dose 3 ML semaglutide 0.68 MG/ML Pen Injector [Ozempic] (1 source)Start: 06-24-8594Ujfguhb 2 mg/3 mL (0.25 mg or 0.5 mg dose) subcutaneous solution 0.25 mg, SubCutaneous, qWeek, Refills(s) 0 Start Date: 06/03/23 Status: Ordered0.5 ML tirzepatide 5 MG/ML Auto-Injector [Mounjaro] (7 sources)Start: 32-25-6066Zlvoxngo 2.5 MG/0.5ML as directed Subcutaneous weekly for 30 days E11. Rx Bin [id number], Group: [id number], PCN 3F, ID: [id number] Sep, ActiveMounjaro 2.5 MG/0.5ML as directed Subcutaneous weekly for 30 days E11 Rx Bin [id number], Group: [id number], PCN 3F, ID: [id number]-- NOT covered Not-TakingMounjaro 2.5 MG/0.5ML as directed Subcutaneous weekly for 30 days E11 Rx Bin [id number], Group: [id number], PCN 3F, ID: [id number]-- NOT covered Activeazithromycin 250 mg oral tablet (5 sources)Macrolide AntimicrobialStart: 10-06-2023 End: 86-24-5427hyei 2 tablets by mouth once daily, then take 1 tablet by mouth once dailyazithromycin (Zithromax) 250 MG tablet Indications: Acute bronchitis, unspecified organism Take 2 tablets (500 mg) by mouth Daily for 1 day, THEN 1 tablet (250 mg) Daily for 4 days. 6 tablet 02/14/2024 02/19/2024 Active cholecalciferol 0.05 mg oral capsule (20 sources)Vitamin DStart: 00-56-8657llqc 1 capsule by mouth once daily cholecalciferol (Vitamin D-3) 50 MCG (2000 UT) capsule Take 2,000 Units by mouth Daily 08/01/2023 ActiveStart: 08-01-2023 End: 18-37-9014vjgv 1 capsule by mouth once dailyCholecalciferol (Vitamin D3) 50 mcg (2,000 unit) capsule Discontinued 50 MCG PO Daily August 01, 2023 12:00am October 19, 2023 11:08amVitamin D3 1.25 MG (16117 UT) TAKE 1 CAPSULE BY MOUTH WEEKLY FOR 56 DAYS for 56 Not-Taking/PRNtake 1 capsule by mouth every twenty- four hoursVitamin D3 50 MCG (2000 UT) 1 capsule Orally Once a day Activetake 1 capsule by mouth once dailyCholecalciferol 1.25 MG (15892 UT) 1 capsule Orally weekly for 56 days when complete take 4000 u daily OTC Not-Taking/PRNtake 1 capsule by mouth once dailyCholecalciferol 1.25 MG (67257 UT) 1 capsule Orally weekly for 56 days when complete take 4000 u daily OTC Activedexamethasone 1 mg oral tablet (18 sources)CorticosteroidStart: 33-93-5884ypax 1 tablet by mouth once in the eveningdexAMETHasone (Decadron) 1 mg tablet Indications: Adrenal nodule Take 1 tablet (1 mg) by mouth 1 time for 1 dose. -take 1mg of dexamethasone around 10- 11 pm, blood work at 8am 1 tablet 04/10/2024 ActiveStart: 63-53-4008xyua 1 tablet by mouth every twenty-four hoursdexAMETHasone 6 MG 1 tablet Orally Once a day for 5 day(s) Apr, Not-Taking/PRNhydrocortisone 10 mg/ml / neomycin 3.5 mg/ml / polymyxin b 80402 unt/ml otic suspension (4 sources)Aminoglycoside Antibacterial, Polymyxin-class Antibacterial, CorticosteroidStart: 09-03-2024 End: 21-43-3271sykxhiqp-polymyxin-hydrocortisone (Cortisporin) 3.5-49353-3 otic suspension Indications: Other infective acute otitis externa of right ear Administer 3 drops into the right ear in the morning and 3 drops at noon and 3 drops in the evening and 3 drops before bedtime. Do all this for [address] inaffected ear. 10 mL 09/03/2024 09/18/2024 Discontinued (Other)levothyroxine sodium 0.1 mg oral tablet (20 sources)l-ThyroxineStart: 54-76-2035vyzj 1 tablet by mouth once daily levothyroxine 100 mcg (0.1 mg) Tab 100 mcg = 1 tab(s), Oral, Daily, Refills(s) 0 Start Date: 05/18/23 Status: OrderedStart: 04-56-1605oxzs 1 tablet by mouth once daily in the morninglevothyroxine (Synthroid, Levoxyl) 100 MCG tablet Indications: Hypothyroidism, unspecified TAKE 1 TABLET BY MOUTH EVERY DAY IN THE MORNING ON EMPTY STOMACH FOR 90 DAYS 90 tablet 4 06/25/2024 ActiveStart: 62-18-9011Nkdcqxwjypmwq Sodium 100 MCG Oral Tablet Quantity: 30 Refills: 0 Ordered: 07-Feb-2021 DO Start : 09-Jan-2021 Activetake 1 tablet by mouth once daily in the morningSynthroid 100 MCG 1 tablet in the morning on an empty stomach Orally Once a day Active End: 59-28-4326vucapdvzjfaoj (Synthroid) 25 mcg tablet Synthroid 25 MCG Oral Tablet Refills: 0 Active 0 02/22/2023iscontinued (Therapy completed)Synthroid 25 MCG Oral Tablet Quantity: 0 Refills: 0 Ordered: 11-Dec-2013 DO Active LORazepam 0.5 mg oral tablet (20 sources)BenzodiazepineStart: 28-61-8042xibj 1 tablet by mouth every twenty- four hours as needed for anxietyLORazepam (Ativan) 0.5 MG tablet Take 0.5 mg by mouth Daily as needed for anxiety 03/15/2023 ActiveAtivan 0.5 MG Oral Tablet Quantity: 0 Refills: 0 Ordered: 11-Dec-2013 DO Activemeclizine hydrochloride 25 mg oral tablet (12 sources)AntiemeticStart: 09-03-2024 End: 69-90-7802lvwi 1 tablet by mouth three times daily as needed for dizziness meclizine (Antivert) 25 MG tablet Indications: Dizziness Take 1 tablet (25 mg) by mouth 3 (three) times a day as needed for dizziness 30 tablet 09/03/2024 02/07/2025 Discontinued (Therapy completed)metFORMIN hydrochloride 500 mg oral tablet (20 sources)BiguanideStart: 08-20-2024 End: 30-50-8466nsnd 1 tablet by mouth once daily at mealtimemetFORMIN (Glucophage) 500 MG tablet Indications: Type 2 diabetes mellitus without complication, without long-term current use of insulin (HCC) TAKE 1 TABLET BY MOUTH EVERY DAY WITH A MEAL 100 tablet3 08/20/2024 02/07/2025 Discontinued (Other)Start: 05-15-2023 End: 25-31-2391lenh 1 tablet by mouth once dailyMetformin 500 mg tablet Discontinued 500 MG PO Daily August 01, 2023 12:00am July 04, 2024 3:09pmtake 1 tablet by mouth twice dailymetFORMIN (Glucophage) 500 mg tablet Take 1 tablet (500 mg) by mouth 2 times daily (morning and late afternoon). Active methylPREDNISolone (2 sources)CorticosteroidStart: 02-14-2024 End: 05-13-4645sotbeaKKVWZHMwojfr (Medrol Dospak) 4 MG tablets Indications: Acute bronchitis, unspecified organismFollow schedule on package instructions 21 tablet 02/14/2024 02/21/2024 Activeomeprazole 20 mg delayed release oral capsule (20 sources)Proton Pump InhibitorStart: 06-76-6908xxrp 1 capsule by mouth in the morningomeprazole (PriLOSEC) [address] capsule Take 20 mg by mouth in the morning and 20 mg in the evening.Take before meals. 06/01/2023 ActiveStart: 08-02-2019 End: 82-84-2774rpcv 1 capsule by mouth twice dailyOmeprazole 20 mg capsule,delayed release(DR/EC) Discontinued 20 MG PO Twice daily August 01, 2023 12:00am December 13, 2024 9:19amStart: 93-58-7940dluk 1 tablet by mouth twice dailyOmeprazole 20 MG Oral Tablet Delayed Release TAKE 1 TABLET BY MOUTH TWICE DAILY Quantity: 180 Refills: 2 Ronnie Murphy MD Start : 11-May-2018 Active Start: 93-08-8056mlswpohebu 20 mg, Oral, Daily, Oral, 0 Refill(s), Refills(s) 0 Start Date: 05/10/18 Status: Orderedozempic (0.25 or 0.5 mg/dose) 2 mg/3ml solution pen-injector (4 sources)Start: 88-11-1918Xndlyte (0.25 or 0.5 MG/DOSE) 2 MG/3ML 0.25 mg Subcutaneous weekly for 30 days Via samples Jun, ActiveOzempic (0.25 or 0.5 MG/DOSE) 2 MG/3ML 0.25 mg Subcutaneous weekly for 90 days Activeinject 0.5 mg by subcutaneous injection every weekOzempic (0.25 or 0.5 MG/DOSE) 2 MG/3ML 0.5 mg Subcutaneous weekly for 90 days ActiveRespiratory Therapy Supplies (CareTouch CPAP & [place]IPAP Hose[place] [facility] [place]Start: 09-18-2024 End: 63-24-3191Zueivdzfurw Therapy Supplies (CareTouch CPAP & BIPAP Hose[place] [facility] [place] BiPAP (biphasic positive airway pressure) dependence 1 Dose at bedtime 1 each 1 09/18/2024 09/18/2025 ActiveRespiratory Therapy Supplies (Reusable Comfortseal Mask-MED) [facility] ([facility])Start: 76-58-7032Zhmkpemswot Therapy Supplies (Reusable Comfortseal Mask-MED[place] [facility] [place]: BiPAP (biphasic positive airway pressure) dependence 1 Device at bedtime Mirage Activa LT Mask Cgk-GXEP-UnkVnm for CPAP 1 each 1 09/18/2024 ActiverisperiDONE 2 mg oral tablet (20 sources)Atypical AntipsychoticStart: 42-46-4073obiviwuHHFF 2 MG Oral Tablet Quantity: 30 Refills: 0 Ordered: 17-Jan-2015 DO Start : 28-Nov-2014 ActiveStart: 87-46-9697tloj 1 tablet by mouth in the morningrisperiDONE (RisperDAL) 2 MG tablet Take 2 mg by mouth in the morning. 12/25/2012 Active0.25 mg, 0.5 mg dose 1.5 ml semaglutide 1.34 mg/ml pen injector (20 sources) End: 94-51-0110uyqyqa 0.25 mg by subcutaneous injection every weeksemaglutide (Ozempic, 0.25 or 0.5 MG/DOSE,) 2 MG/1.5ML solution pen-injector Inject 0.25 mg under the skin 1 (one) time per week. ActiveOzempic (0.25 or 0.5 MG/DOSE) 2 MG/1.5ML SOPN weekly Quantity: 0 Refills: 0 Ordered: 01-Jun-2022 DOActive Semaglutide (5 sources)Start: 64-28-7742octikm 1 mg by subcutaneous injection every week Start: 91-72-9808wjucct 1 mg by subcutaneous injection every weekSemaglutide (Ozempic) 1 mg/dose (4 mg/3 mL) pen injector Active 1 MG SUBCUT every week November 07, 2024 12:00am Complies with drug therapysimvastatin 40 mg oral tablet (20 sources)HMG-CoA Reductase InhibitorStart: 79-82-0678xitt 1 tablet by mouth at bedtimesimvastatin (Zocor) 40 MG tablet Indications: Mixed hyperlipidemia Take 1 tablet (40 mg) by mouth at bedtime 100 tablet 3 02/07/2025 ActiveStart: 06-14-4620zgsa 1 tablet by mouth at bedtimesimvastatin (Zocor) 40 MG tablet Indications: Mixed hyperlipidemia Take 1 tablet (40 mg) by mouth at bedtime 100 tablet 3 02/07/2025 ActiveStart: 04-04-2023 End: 62-84-5376taie 1 tablet by mouth once daily in the eveningsimvastatin (Zocor) 40 MG tablet Indications: Mixed hyperlipidemia TAKE 1 TABLET BY MOUTH EVERY DAYIN THE EVENING FOR 90 DAYS 100 tablet 3 03/27/2024 02/07/2025 Discontinued (Reorder)Simvastatin 40 MG Oral Tablet Quantity: 0 Refills: 0 Ordered: 11-Dec-2013 DO Activevenlafaxine 75 mg oral tablet (20 sources)Serotonin and Norepinephrine Reuptake InhibitorStart: 66-41-7068hcui 1 tablet by mouth twice dailyVenlafaxine 75 mg tablet Active 75 MG PO Twice daily August 01, 2023 12:00am Complies with drug therapyStart: 32-40-1674Qjdqwjp XR 75 mg Cap-ER 75 mg = 1 cap(s), Oral, BID, Oral, 0 Refill(s), Refills(s) 0 Start Date: 05/15/23 Status: Orderedtake 1 capsule by mouth every twenty-four hours in the morningvenlafaxine XR (Effexor XR) 75 MG 24 hr capsule Take 75 mg by mouth in the morning and 75 mg beforebedtime. ActiveEffexor 75 MG TABS Quantity: 0 Refills: 0 Ordered: 11-Dec-2013 DO Active Completed/Discontinued Medications MedicationDrug Class(es)DatesSig (Normalized)Sig (Original)acetaminophen 325 mg / HYDROcodone bitartrate 5 mg oral tablet (13 sources)Opioid AgonistStart: 08-06-2023 End: 63-84-8994ooee 1 tablet by mouth every four to six hours as needed for pain Hydrocodone-Acetaminophen 5-325 mg tablet Discontinued 1 TAB PO EVERY 4-6 HOURS as needed for pain 10 August 06, 2023 August 09, 2023 11:41amdextromethorphan hydrobromide 30 mg / pyrilamine maleate 30 mg oral tablet (16 sources)Uncompetitive L-oxzmwt-E-aspartate Receptor Antagonist, Sigma-1 AgonistStart: 98-37-6767xkbs 1 tablet by mouth every six hoursCapron DMT 30-30 MG 1 tablet Orally every 6 hours for 7 days Apr, Not-Taking/PRN12 hr hyoscyamine sulfate 0.375 mg extended release oral tablet (4 sources)Start: 51-69-6479zgnw 1 tablet by mouth every twelve hours as needed Hyoscyamine Sulfate ER 0.375 MG Oral Tablet Extended Release 12 Hour TAKE 1 TABLET BY MOUTH EVERY 12 HOURS NEEDED FOR SWEATING Quantity: 60 Refills: 0 Start : 17-Oct-2014 Active3 ml liraglutide 6 mg/ml pen injector (8 sources)GLP-1 Receptor AgonistStart: 31-15-6445Cxnaock 18 MG/3ML 0.6 mg Subcutaneous daily for 30 days Start Victoza at 0.6 mg sq daily x 1 week, i ncrease by 0.6 mg weekly to max dose of 1.8 mg. Hold escalation for toleration issues and call prescriber for instructions. Jan, Not-Taking/PRNmounjaro 2.5 mg/0.5ml solution pen-injector (5 sources)Mounjaro 2.5 MG/0.5ML as directed Subcutaneous weekly for 30 days E11.65 Rx Bin [id number], Group: [id number], PCN 3F, ID: [id number]-- NOT covered Not-Taking/PRNpredniSONE 50 mg oral tablet (13 sources)Start: 08-06-2023 End: 24-33-3264cqjw 1 tablet by mouth once dailyPrednisone 50 mg tablet Discontinued 50 MG PO Daily 09 03August 06, 2023 12:00am August 09, 2023 11:41am Semaglutide (13 sources)Start: 06-20-2023 End: 66-62-8726Prfspsgzrkj (Ozempic) 0.25 mg or 0.5 mg (2 mg/3 mL) pen injector Discontinued 0.5 MG SUBCUT every week June 20, 2023 1:00am November 07, 2024 1:47pm PAP approved thru Start: 98-82-3688Hxnxncfzele (Ozempic) 0.25 mg or 0.5 mg (2 mg/3 mL) pen injector Active 0.5 MG SUBCUT every week June 20, 2023 1:00am PAP approved thru terbinafine 250 mg oral tablet (4 sources)Allylamine AntifungalStart: 83-12-0236rkhb 1 tablet by mouth once dailyTerbinafine HCl - 250 MG Oral Tablet TAKE 1 TABLET EVERY DAY Quantity: 30 Refills: 0 Start : 25-Sep-2015 Active Problems Active Problems Problem ClassificationProblemDateDocumented DateEpisodic/ChronicAcute bronchitis (18 sources)Acute bronchitis; Translations: [Acute bronchitis]29-88-2484Zagkvkaq Administrative/social admission (2 sources)Patient encounter status; Translations: [Other specified counseling] 11-65-6878FjudzenuIacvwiiy reactions (14 sources)Allergic condition; Translations: [Allergy, unspecified, initial encounter]54-31-4344TtzuxueiWvfagtv disorders (20 sources)Mixed anxiety and depressive disorder; Translations: [Other specified anxiety disorders]Onset: 40-10-8453InmsnisCcjuwha obstructive pulmonary disease and bronchiectasis (16 sources)Bronchitis; Translations: [Bronchitis, not specified as acute or chronic]EpisodicConditions associated with dizziness or vertigo (2 sources)Dizziness; Translations: [Dizziness and giddiness]52-47-8751Hsntmxpj Diabetes mellitus with complications (20 sources)Type II diabetes mellitus uncontrolled; Translations: [Type 2 diabetes mellitus with hyperglycemia]Onset: 01-73-3850OrixlymEyxouizt mellitus without complication (20 sources)Diabetes mellitus; Translations: [Diabetes mellitus without mention of complication, type II or unspecified type, not stated as uncontrolled]Onset: 09-21-2022 Resolved: 769972-53-1612FlxinjeNanqrojtm of lipid metabolism (20 sources)Hyperlipidemia; Translations: [Other and unspecified hyperlipidemia] Onset: 37-64-8112QfgcyewKblhoycuhx disorders (20 sources)Gastroesophageal reflux disease; Translations: [Esophageal reflux] Onset: 505864-10-8347UdlaforTyvuc and electrolyte disorders (1 source)Dehydration; Translations: [DEHYDRATION]Onset: 86-36-7190Uueqqbny Genitourinary symptoms and ill-defined conditions (1 source)Personal history of urinary (tract) infections; Translations: [PERS HX URINARY TRACT INFECTIONS]Onset: 87-64-3566YiepcjjcAnjuu valve disorders (20 sources)Rheumatic disorders of both mitral and aortic valves; 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]Onset: hronic Lymphadenitis (20 sources)Disorder of intra-abdominal lymph nodes; Translations: [Localized enlarged lymph nodes]Onset: 482684-45-5612SalasabbKclukec and fatigue (20 sources)Other fatigue; Translations: [Weakness]Onset: 67-10-5069Fgsirfed Menopausal disorders (4 sources)Decreased estrogen level; Translations: [Other primary ovarian failure]63-80-8168EixlnvtDntgwnpaty disorders (1 source)Hormone replacement therapy; Translations: [HORMONE REPLACEMENT THERAPY]Onset: 91-36-8118XtysfrnvArxr disorders (20 sources)Bipolar disorder; Translations: [Bipolar disorder, unspecified] Onset: 351797-79-7816QjilsryRenfmn and vomiting (1 source)Nausea with vomiting, unspecified; Translations: [NAUSEA WITH VOMITING UNSPECIFIED]Onset: 03-53-9879TupzamjvOdsgdrhqmuv deficiencies (20 sources)Vitamin D deficiency; Translations: [Vitamin D deficiency, unspecified]Onset: 70-43-5439KbgsaosTzykm aftercare (1 source)residential (current) use of oral hypoglycemic drugs; Translations: [METHOD CONSULTANT USE ORAL HYPOGLYCEMIC DX]Onset: 00-24-7726MzhxndjiZpqeu aftercare (1 source)Other [place] [facility] (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; Translations: [OTH SENIOR CARE CURRENT DRUG THERAPY]Onset: 76-82-1350JgordrorVmnka and ill-defined heart disease (20 sources)Right ventricular systolic dysfunction; Translations: [Other ill- defined heart diseases]Onset: 861356-41-4538PcswjgqYgkeq and ill-defined heart disease (20 sources)Left ventricular hypertrophy; Translations: [Cardiomegaly]Onset: 816520-44-0026GsodtzuKgvgn and ill-defined heart disease (3 sources)Cardiomegaly; Translations: [Cardiomegaly]Onset: ChronicOther and ill-defined heart disease (3 sources)Heart disease; Translations: [Other ill-defined heart diseases]Onset: 951051-37-7699ZxatvriFcgxa and ill-defined heart disease (1 source)Cardiomegaly; Translations: [Cardiomegaly]Onset: 04-29-1045Cvswojd Other and ill-defined heart disease (1 source)Other ill-defined heart diseases; Translations: [Other ill-defined heart diseases]Onset: 34-86-6320VmqepdcKjamg and unspecified benign neoplasm (20 sources)Tubular adenoma of colon; Translations: [Benign neoplasm of colon, unspecified]Onset: 882037-11-1970UifgvqsoVhnvu connective tissue disease (4 sources)Trigger finger of left hand; Translations: [Trigger finger, unspecified finger]40-27-3343RfogluanHhbqf ear and sense organ disorders (16 sources)Impacted cerumen; Translations: [Impacted cerumen]EpisodicOther ear and sense organ disorders (2 sources)Impacted cerumen in right ear; Translations: [Impacted cerumen, right ear]95-27-0055PuhusewwEiuul ear and sense organ disorders (2 sources)Acute infective otitis externa; Translations: [Other infective otitis externa, right ear]21-04-2960LzbhzjhsOgrxm endocrine disorders (20 sources)Disorder of adrenal gland; Translations: [Disorder of adrenal gland, unspecified]Onset: 101727-98-5938YghmeabGxuzs endocrine disorders (12 sources)Disorder of adrenal gland, unspecified; Translations: [Unspecified disorder of adrenal glands]Onset: 79-16-4665BqyfctfThwqj endocrine disorders (2 sources)Adrenal mass; Translations: [Disorder of adrenal gland, unspecified] 89-74-4640CifcgytXgytf gastrointestinal disorders (6 sources)Heartburn; Translations: [HEARTBURN]Onset: 51-17-1580BfzwvdezGetgn gastrointestinal disorders (1 source)Diarrhea, unspecified; Translations: [DIARRHEA UNSPECIFIED]Onset: 43-53-9411ZkubixiiKwcpe gastrointestinal disorders (13 sources)Heartburn; Translations: [Heartburn]26-41-5461FhsxezocMeftp gastrointestinal disorders (20 sources)Esophageal dysphagia; Translations: [Other dysphagia]Onset: 200919-36-9660YxizojdtFdicu gastrointestinal disorders (1 source)Adrenal zssw06-22-6668ZdgscvpyJwcvi liver diseases (20 sources)Large liver; Translations: [Hepatomegaly, not elsewhere classified] Onset: 239459-17-0376PfodqjtxLfsjx lower respiratory disease (12 sources)Snoring; Translations: [Other respiratory abnormalities]Episodic Other lower respiratory disease (13 sources)Snoring; Translations: [Snoring]09-98-4248BidrjiejXoubp lower respiratory disease (20 sources)Dyspnea on exertion; Translations: [Other forms of dyspnea]Onset: 849474-97-0040SgvntklfQcqku lower respiratory disease (1 source)Shortness of breath; Translations: [Shortness of breath]Onset: 57-51-4435DlpagmpwDicfn non-epithelial cancer of skin (20 sources)Basal cell carcinoma of cheek; Translations: [Basal cell carcinoma of skin of other parts of face]Onset: 09-21-2022 Resolved: 177134-83-1374AxfppacqLzyfa non-traumatic joint disorders (13 sources)Pain in left shoulder; Translations: [Left shoulder pain]08-06-2023 EpisodicOther nutritional; endocrine; and metabolic disorders (20 sources)Body mass index 40+ - severely obese; Translations: [Morbid obesity] Onset: 443682-30-3830WbepszwUjeho nutritional; endocrine; and metabolic disorders (20 sources)Obesity; Translations: [Obesity, unspecified]58-09-5147EajhpsgTlwpj nutritional; endocrine; and metabolic disorders (20 sources)Obesity, unspecified; Translations: [Obesity, unspecified]Onset: 44-69-8107FqcpuhxBvnav nutritional; endocrine; and metabolic disorders (18 sources)Body mass index (BMI) 40.0-44.9, adult; Translations: [Body Mass Index 40.0-44.9, adult]Onset: 87-75-7317VgueujtDvuya nutritional; endocrine; and metabolic disorders (20 sources)Lipoprotein deficiency disorder; Translations: [Lipoprotein deficiency]Onset: 703032-06-7024XxulnlhLxjxn nutritional; endocrine; and metabolic disorders (1 source)Severe obesity; Translations: [Class 3 severe obesity with serious comorbidity and body mass index (BMI) of 40.0 to 44.9 in adult, unspecified obesity type]62-91-8619PrnebuxFjjiq nutritional; endocrine; and metabolic disorders (2 sources)Morbid (severe) obesity due to excess calories; Translations: [Morbid (severe) obesity due to excess calories (Multi)]Onset: 48-32-8909LgwldleTmshe nutritional; endocrine; and metabolic disorders (14 sources)Abnormal weight gain; Translations: [Abnormal weight gain]09-21-2024 EpisodicOther screening for suspected conditions (not mental disorders or infectious disease) (20 sources)Echocardiogram abnormal; Translations: [Nonspecific (abnormal) findings on radiological and other examination of other intrathoracic organs] Onset: 85-99-6342BjzqfspeYhzyx upper respiratory disease (18 sources)Allergic rhinitis; Translations: [Allergic rhinitis, unspecified] Onset: 120852-43-3190EobodkhIeloh upper respiratory disease (2 sources)Allergic rhinitis due to pollen; Translations: [Allergic rhinitis due to pollen]23-08-5311PtnlokaFxuno upper respiratory disease (20 sources)Stenosis of trachea; Translations: [Other diseases of trachea and bronchus]Onset: 373500-89-2543YjfbljsrOvzzi upper respiratory infections (4 sources)Acute pharyngitis, unspecified; Translations: [Acute pharyngitis] 30-98-8631ToqfcgaiExhkfazlmb disorders (not diabetes) (20 sources)Other specified diseases of pancreas; Translations: [Fatty pancreas] Onset: 53-59-4081UsfzoclrRxznhbma codes; unclassified (4 sources)Sleep apnea; Translations: [Unspecified sleep apnea]88-81-5277Urluuui Residual codes; unclassified (20 sources)Obstructive sleep apnea syndrome; Translations: [Obstructive sleep apnea (adult) (pediatric)]Onset: 149092-67-5233QxeypziVbpamthm codes; unclassified (17 sources)Obstructive sleep apnea (adult) (pediatric); Translations: [Obstructive sleep apnea (adult)(pediatric)]Onset: 31-15-6708XkybvhpHtlgouzd codes; unclassified (20 sources)Dependence on biphasic positive airway pressure ventilation; Translations: [Dependence on other enabling machines and devices]Onset: 907978-81-9912MrsudjuNvpjkmkw codes; unclassified (20 sources)Edema of lower extremity; Translations: [Localized edema]Onset: 289821-52-4917GsfftrfpLjpsbndh codes; unclassified (7 sources)Dependent edema; Translations: [Edema, unspecified]66-29-8898Staudgun Residual codes; unclassified (7 sources)Impaired exercise tolerance; Translations: [Other general symptoms and signs]23-20-3876WgerxbxdRtzggvo disorders (20 sources)Hypothyroidism; Translations: [Unspecified acquired hypothyroidism] Onset: 89-01-0293TlkawbhIhijfgl on above:Added by Problem List Migration; 2013-02-28; Moved to Suppressed Mar 24 2013 9:03PM;Outside Source Comment: Comment on above: Added by Problem List Migration; 2013-02-28; Moved to Mares ppressed Mar 24 2013 9:03PM;Unclassified (1 source)CONTACT W/AND (SUSP) EXPOS COVID-19; Translations: [CONTACT W/AND (SUSP) EXPOS COVID-19]Onset: 62-09-5472Vuqrhlavmqex (5 sources)Patient encounter -11-1439Icenoqijuprq (2 sources)R68.89 - Other general symptoms and signs,R60.9 - Edema, unspecified,Z68.42 - Body mass index [BMI] 45.0-49.9, adultUnclassified (1 source)Obesity, class 3; Translations: [Obesity, class 3]Onset: 07-19-2024 Past or Other Problems Problem ClassificationProblemDateDocumented DateEpisodic/ChronicBiliary tract disease (13 sources)Acute cholecystitis; Translations: [Acute cholecystitis]Onset: 06-03-2023 Resolved: 84-13-4701XnhysoshYtcu disorders (2 sources)Mood disordersOnset: Other gastrointestinal disorders (20 sources)Dysphagia; Translations: [Dysphagia, unspecified]Onset: 01-23-2023 59-96-9771IkbnevqhCjkos lower respiratory disease (8 sources)Dyspnea; Translations: [Other respiratory abnormalities]Onset: 890257-20-2268BtfniubcSubta lower respiratory disease (1 source)Other forms of dyspnea; Translations: [OTHER FORMS OF DYSPNEA]Onset: 16-68-8296OjowrtewQgnec nutritional; endocrine; and metabolic disorders (18 sources)Morbid obesity; Translations: [Morbid (severe) obesity due to excess calories]Onset: 09-21-2022 Resolved: 332952-91-3254CaxevkfLojpq upper respiratory disease (2 sources)Other specified diseases of upper respiratory tract; Translations: [Other specified diseases of upper respiratory tract]Onset: 28-48-8654Mlxnvmbe Residual codes; unclassified (1 source)Localized edema; Translations: [LOCALIZED EDEMA]Onset: 05-13-2022 EpisodicResidual codes; unclassified (1 source)Family history of malignant neoplasm of breast; Translations: [FAMILY HX MALIG NEOPLASM OF BREAST]Onset: 44-64-7161GswruqkhFyquqkqh codes; unclassified (1 source)Family history of malignant neoplasm of kidney; Translations: [FAM HX MALIGNANT NEOPLASM KIDNEY]Onset: 78-87-7448WhfrkoceTbcshdtf codes; unclassified (20 sources)Never smoked any substance; Translations: [Other specified health status]Onset: 01-23-2023 Resolved: 967638-56-5961FcwbgamwYnnjvztxxrlj (1 source)Exposure to 2019 novel coronavirus; Translations: [Contact with and (suspected) exposure to COVID19]Unclassified (3 sources)Never smoked tobacco; Translations: [Never a smoker]Unclassified (5 sources)Onset: 890037-90-0374Ljyupnoymhpn (1 source)Obesity, class 3; Translations: [Obesity, class 3]Onset: 07-19-2024 NEGATED: Highlighted row has not occurred!Residual codes; unclassified (12 sources)DiseaseEpisodic Results Test NameValueInterpretationReference RangeFacilityB-Type Natriuretic Peptideon 38-06-9548Ujsdbiphnxx peptide B (Bld) [Mass/Vol]12.0 pg/mLNormal5-100The [facility] Physician GroupComment on above:Result Comment: PERFORMED BY: [place] [address] PATHOLOGIST TESTER VIBRATOR EQUIPMENT LEXUS COX M.D.Performed By: #### BNP #### [place] [address] USAALL CBC WITH AUTO DIFFon 41-99-1763BGOFOTFJX ABSOLUTE AUTO 0.1NOMS HealthcareBasophils/100 WBC (Bld)0.7 %0.2 - 2.0 %[facility] Eosinophils/100 WBC (Bld)1 %0.9 - 7.0 %NOMS HealthcareErythrocyte distribution width (RBC) [Ratio]12.8 %11.0 - 15.0 %NOMS HealthcareHematocrit (Bld) [Volume fraction]37.8 %36.0 - 48.0 %NOMS HealthcareHemoglobin (Bld) [Mass/Vol]12.5 g/dL 12.0 - 16.0 g/dLNOMS HealthcareIMMATURE GRANULOCYTES ABS AUTO0.1HighNOMS HealthcareImmature granulocytes/100 WBC (Bld)1.3 %High0.0 - 0.5 %[facility] LYMPHOCYTES ABSOLUTE AUTO1.6NOPemiscot Memorial Health SystemsLymphocytes/100 WBC (Bld)20.4 %Low 20.5 - 60.0 %[facility] CenterH (RBC) [Entitic mass]30 pg26.7 - 34.0 pgNOGolden Valley Memorial HospitalHC (RBC) [Mass/Vol]33.1 g/dL29.9 - 35.2 g/dLWestern Missouri Mental Health CenterV (RBC) [Entitic vol]90.6 fL81.0 - 99.0 fLNevada Regional Medical CenterMONOCYTES ABSOLUTE AUTO0.5NOPemiscot Memorial Health SystemsMonocytes/100 WBC (Bld)6.4 %1.7 - 12.0 %[facility] CenterNEUTROPHILS ABSOLUTE AUTO5.4NOPemiscot Memorial Health SystemsNeutrophils/100 WBC (Bld)70.2 %43.0 - 75.0 %[facility] CenterPlatelet mean volume (Bld) [Entitic vol]9.8 fL9.5 - 13.5 fLNevada Regional Medical CenterTB EO #0.1NOMS [facility] DIM375EVVCSt. Luke's Hospital RBC4.17LowNOSt. Luke's Hospital WBC7.6[facility] Medical CenterMLR HEMOGLOBIN A1Con 05-31-4025Yrmpwux [Mass/Vol]137 mg/dLNevada Regional Medical CenterHbA1c (Bld) [Mass fraction]6.4 %High4.5 - 6.2 %[facility] CenterComment on above:ADA RECOMMENDED LIMIT 4.0 - 6.0 ADA THERAPEUTIC TARGET < 7.0 ACTION SUGGESTED > 7.0 No Panel Informationon 16-86-8126Vnqpyyotdxhnrt and review of laboratory results AbnormalNOPemiscot Memorial Health SystemsCLINISYNCNOMS [facility] MICROALB CREAT RATIO RANDOMon 21-35-4182SPJQHZJECB URINE QGOVBK397.94 mg/dL20.00 - 300.00 mg/dLNevada Regional Medical Center MICROALBUMIN URINE RANDOM<1.3NINF - 30.0 mg/dLNevada Regional Medical CenterFPG ECG *CARDIOLOGY ONLY*on 42-45-3088ZCL ECG *CARDIOLOGY ONLY*[facility] [place] [address] Electrocardiograph Report Signed Patient: Bette Villafana MR#: [id number] : 1955 Acct:[id number] Age/Sex: 69 / F ADM Date: 12/13/24 Loc: EKGCARDIO Room: Type: [facility] Attending Dr: Caryl Meléndez MD Ordering [...] abnormality Abnormal ECG Confirmed by Caryl Meléndez ([id number]) on 12/14/2024 12:51:23 PM Referred By: Electronically Signed By: Caryl Meléndez Transcribed By: MUS Signed By Caryl Meléndez MD [address] [place] [address] Physician GroupALL THYROID STIM HORMONEon 10-02-2024 TSH Qn2.837 m[IU]/LNOMS HealthcareCLINISYNCNOMS HealthcareNo Panel Informationon 17-87-5384TwxndSAMANTHA Bañuelos 09/03/2024 2:09 PM Ear Cerumen Removal [...] Improved Procedure completion: Tolerated well, no immediate complicationsKindred HospitalS HealthcareCT CARDIAC SCORING WO IV CONTRASTon 75-01-0023DN CARDIAC SCORING WO IV CONTRASTInterpreted By: Sergio Pena, STUDY: CT CARDIAC SCORING WO IV CONTRAST; 08/22/2024 4:24 pm INDICATION: Signs/Symptoms:CAD Screening. COMPARISON: None. ACCESSION NUMBER(S): [id number] ORDERING CLINICIAN: INTERFACE UNSPECIFIELDPROVIDER TECHNIQUE: Using prospective [...] coronary heart disease events. According to the [employer] Clinical Expert Consensus [...] modify other non-lipid coronary risk factors. Reference: Stewart P et al. Circulation. 2007; 115:402-426 MACRO: None Signed by: Sergio Flores 08/23/2024 12:00 PM Dictation workstation: [id number] HospitalMM TOMOSYNTHESIS SCREENING BIon 66-60-1881[place] [address] Mammography Report Signed Patient: BETTE VILLAFANA MR#: [id number] : 1955 Acct:[id number] Age/Sex: 69 / F ADM Date: 05/30/24 Loc: MAMMO Attending Dr: BELLO HILTON Ordering Physician: HILTON,BELLO Results: Date of Service: 05/30/24 Follow Up: Procedure(s): MM tomosynthesis screening BI Accession Number(s): [id number] cc: BELLO HILTON Patient Name: BETTE VILLAFANA MR#: [id number] : 1955 Exam Date: 05/30/2024 Ordering Doctor: [...] cancer at age 52. LOCATION: [facility] BREAST COMPOSITION: The breasts are almost [...] Signed By: 05/31/24 1609 DD/ 1609 TD/TT: Street Light Repairer Helper:TBHRadiology, Radiologist, - 05/31/2024 [place] [address] Mammography Report Signed Patient: BETTE VILLAFANA MR#: [id number] : 1955 Acct:[id number] Age/Sex: 69 / F ADM Date: 05/30/24 Loc: MAMMO Attending Dr: BELLO HILTON Ordering Physician: BELLO HILTON Results: Date of Service: 05/30/24 Follow Up: Procedure(s): MM tomosynthesis screening BI Accession Number(s): [id number] cc: YOBANINANDABELLO Patient Name: BETTE VILLAFANA MR#: [id number] : 1955 Exam Date: 05/30/2024 Ordering Doctor: [...] cancer at age 52. LOCATION: [facility] BREAST COMPOSITION: The breasts are almost [...] Signed By: 05/31/24 1609 DD/ 1609 TD/TT: Street Light Repairer Helper: [facility] HOSPITALHaydee HealthcareRadiology Study observation (narrative)[facility] TOMOSYNTHESIS SCREENING BIOrdered By: Radiologist Radiology on 18-50-8419XSRANevada Regional Medical Center Work Phone: aLL DHEA SULFATEon 46-91-4654NRUT-MLYHXXH23.8 ug/dL 20.4 - 186.6 ug/dLFreeman Heart Institute CORTISOLon 68-88-5049Izogsxtfttprko and review of laboratory resultsAbnormalNortheast Regional Medical Center CORTISOL0.4 ug/dLAbnormal 6.2 - 19.4 ug/dLNevada Regional Medical CenterComment on above:Please Note: The reference interval and flagging for this test is for an AM collection. If this is a PM collection please use: Cortisol PM: 2.3-11.[address] Performed at: [facility] [id number] Psychic Reader: Saul Howard PhD, Phone: [phone] No Panel Informationon 03-74-6421ENNASYMLRRKCW HealthcareTBH CREATININEon 71-95-4721Itmfabxfve [Mass/Vol]0.89 mg/dL0.55 - 1.02 mg/dLNevada Regional Medical Center GFR/1.73 sq M.predicted CKD-EPI (S/P/Bld) [Vol rate/Area]>60>=60 mL/min/1.73m 2 [facility] Medical CenterTB EGFR-NON AF NIUEAN>60>=60 mL/min/1.73m 2NMercy Hospital Washington CLINISYErlanger East HospitalCatecholamines 3 panel (P) [Mass/Vol]on 04-17-2024 DOPamine [Mass/Vol]<300 - 48 pg/mLUnCentervilleEPINEPHrine (P) [Mass/Vol]<150 - 62 pg/mLUC Medical CenterNorepinephrine (P) [Mass/Vol]624 pg/mL0 - 874 pg/mLUnCentervillePerformed at: [facility] [id number] Psychic Reader: Estrella Leggett MD, Phone: [phone]entervilleMetanephrines Plasmaon 04-13-2024 Annotation comment [Interpretation] NarrativeSee NoteUnCentervilleComment on above:INTERPRETIVE INFORMATION: Metanephrines, Plasma (Free) This test is [...] developed and its performance characteristics determined by [employer]. It has not been cleared or approved by the US Food and Drug Administration. This test was performed in a CLIA certified laboratory and is intended for clinical purposes. Performed By: [employer] [address] [place] [address] Fax Machine Repairer: Geronimo Gomez MD, PhD CLIA Number: [id number] Metanephrines [Moles/Vol]<0.100.00 - 0.49 nmol/[facility]an Private HospitalNormetanephrine Free [Moles/Vol]0.51 nmol/L0.00 - 0.89 nmol/[facility] CenterDexamethasoneon 78-00-6937Tyhxkdbnbjctl [Mass/Vol]<50.0ng/dLUC Medical Center Comment on above:INTERPRETIVE INFORMATION: Dexamethasone, Serum or Plasma by LC-MS/MS [...] developed and its performance characteristics determined by [employer]. It has not been cleared or approved by the US Food and Drug Administration. This test was performed in a CLIA certified laboratory and is intended for clinical purposes. Performed By: [employer] [address] [place] [address] Fax Machine Repairer: Geronimo Gomez MD, PhD CLIA Number: [id number] Dexamethasone [Mass/Vol]on 27-08-9561PgdpphbbomCenterville Adrenocorticotropic Hormone (ACTH)on 99-42-1620Lqvcbosjyymvn (P) [Mass/Vol]37.5 pg/mL7.2 - 63.3 pg/mLUC Medical CenterComment on above: INTERPRETIVE INFORMATION: Adrenocorticotropic Hormone Reference interval based on samples collected between 7 a.m. and 10 a.m. No reference intervals established for p.m. collections. Pediatric reference values are the same as adults (Acta Paediatr Scand 1981;70:341-345). This assay measures intact ACTH 1-39; some types of synthetic ACTH and ACTH fragments are not detected by this assay. Performed By: [employer] [address] [place] [address] Fax Machine Repairer: Geronimo Gomez MD, PhD CLIA Number: [id number] Corticotropin (P) [Mass/Vol]on 99-81-1347ZaqbiqfadiCenterville Catecholamines 3 panel (P) [Mass/Vol]on 34-96-5882PUGfnnla [Mass/Vol]<30Normal 0-48UnMain Campus Medical CenterComment on above:Order Comment: TSH testing is performed using different testing methodology at [facility] than at other [facility]. Direct result comparisons should only be made within the same method.Performed By: #### 3016-3 #### IDANIA Alexandre ([id number]) [facility] ([facility]) [address] [place], [place] [address]QAPKHWQegel (P) [Mass/Vol]<97Effchg5-49NjdvaomkzkMain Campus Medical CenterComment on above:Order Comment: TSH testing is performed using different testing methodology at [facility] than at other [facility]. Direct result comparisons should only be made within the same method.Performed By: #### 3016-3 #### IDANIA Alexandre ([id number]) [facility] ([facility]) [address] [place], [place] [address]Sjzzxswsifxwtu (P) [Mass/Vol]624 pg/mLNormal0-874UnMain Campus Medical CenterComment on above:Order Comment: TSH testing is performed using different testing methodology at [facility] than at other [facility]. Direct result comparisons should only be made within the same method.Performed By: #### 3016-3 #### IDANIA Alexandre ([id number]) [facility] ([facility]) [address] [place] [address]Ziatngacrclmycj 92-38-5730Savmgabglnpwq (P) [Mass/Vol]37.5 pg/mLNormal7.2-63.3UnMain Campus Medical CenterComment on above:Result Comment: INTERPRETIVE INFORMATION: Adrenocorticotropic Hormone Reference interval based on samples collected between 7 a.m. and 10 a.m. No reference intervals established for p.m. collections. Pediatric reference values are the same as adults (Acta Paediatr Scand 1981;70:341-345). This assay measures intact ACTH 1-39; some types of synthetic ACTH and ACTH fragments are not detected by this assay. Performed By: [employer] [address] [place] [address] Fax Machine Repairer: Geronimo Gomez MD, PhD CLIA Number: [id number] By: #### 2141-0 #### [facility]) ([id number]) [address] [place], [place] [address]Kzvpmqqoce 50-85-0625Hqeztfjz [Mass/Vol]9.7 ug/dL2.5 - 20.0 ug/dLUC Medical CenterCortisol [Mass/Vol]9.7 ug/dLNormal 2.5-20.0UnMain Campus Medical CenterComment on above:Performed By: #### 2143-6 #### IDANIA Alexandre ([id number]) [facility] ([facility]) [address] [place] [address]Vxfsvcfv [Mass/Vol]on 74-41-0011Gfrohryhhmirsz and review of laboratory resultsNormalUniversWellstone Regional HospitalUnCentervilleDHEA-S [Mass/Vol]on 60-93-0025GYSDLLCM-BASED REFERENCE RANGES: PUBERTAL (CHELSEA) STAGE MALE FEMALE [...] may contact their local laboratory for further information.UC Medical CenterDHEA-Sulfateon 89-92-4157AURR-S [Mass/Vol]106 ug/dL13 - 130 ug/dLUC Medical Center Dehydroepiandrosterone sulfateon 74-04-8173JUGL-S [Mass/Vol]106 ug/dLNormal 13-130UnMain Campus Medical CenterComment on above:Order Comment: MATURITY-BASED REFERENCE RANGES: PUBERTAL (CHELSEA) STAGE MALE FEMALE [...] may contact their local laboratory for further information.Performed By: #### 2191-5 #### IDANIA Alexandre ([id number]) [facility] ([facility]) [address] [place], [place] [address]Ofbnglvxeruregj 31-40-4905Kfrpvjscxkanq [Mass/Vol]<50.0Normal [facility] Hamilton HospitalComment on above:Result Comment: INTERPRETIVE INFORMATION: Dexamethasone, Serum or Plasma by LC-MS/MS [...] developed and its performance characteristics determined by [employer]. It has not been cleared or approved by the US Food and Drug Administration. This test was performed in a CLIA certified laboratory and is intended for clinical purposes. Performed By: [employer] [facility] [address] [place] [address] Fax Machine Repairer: Geronimo Gomez MD, PhD CLIA Number: [id number] By: #### 03799-3 #### [facility]) ([id number]) [address] [place], [place] [address]Vehe T4 [Mass/Vol]on 31-23-8241Eukdyuaqrxrfeb and review of laboratory resultsNormalUSt. Rita's HospitalThyroxine Free testing is performed using different testing methodology [facility]. Direct result comparisons should only be made within the same method.[facility] HospitalHbA1c (Bld) [Mass fraction]on 42-50-2268Pkncdqd glucose Estimated from glycated hemoglobin (Bld) [Mass/Vol]123 mg/dLNot [facility]Med[facility]ostoria Community HospitalInterpretation and review of laboratory results AbnormalUC Medical CenterDiagnosis of Diabetes-Adults Non-Diabetic: < or = 5.6% Increased risk for developing diabetes: 5.7-6.4% Diagnostic of diabetes: > or = 6.5% [facility] HospitalAverage glucose Estimated from glycated hemoglobin (Bld) [Mass/Vol]123 mg/dLNormalNot [facility] Medical CenterComment on above:Order Comment: Diagnosis of Diabetes-Adults Non-Diabetic: < or = 5.6% Increased risk for developing diabetes: 5.7-6.4% Diagnostic of diabetes: > or = 6.5%Performed By: #### 4548-4 #### IDANIA Alexandre ([id number]) [facility] ([facility]) [id number] [place] [address]Cfveiofxer A1Con 51-89-2610MoX7n (Bld) [Mass fraction]5.9 % HighSee Hind General HospitalHemoglobin A1c/Hemoglobin.total on 63-58-3579HoY7k (Bld) [Mass fraction]5.9 %HighSee commentUnMain Campus Medical CenterComment on above:Order Comment: Diagnosis of Diabetes-Adults Non-Diabetic: < or = 5.6% Increased risk for developing diabetes: 5.7-6.4% Diagnostic of diabetes: > or = 6.5%Performed By: #### 4548-4 #### IDANIA Alexandre ([id number]) [facility] ([facility]) [address] [place] [address]OZYOJMPFDJZKY PLASMAon 58-93-6955Qulosrmdhu comment [Interpretation] NarrativeSee NoteNormalUniversTriHealthComment on above:Result Comment: INTERPRETIVE INFORMATION: Metanephrines, Plasma (Free) This test is [...] developed and its performance characteristics determined by [employer]. It has not been cleared or approved by the US Food and Drug Administration. This test was performed in a CLIA certified laboratory and is intended for clinical purposes. Performed By: [facility] [facility] [address] [place] [address] Fax Machine Repairer: Geronimo Gomez MD, PhD [place] Number: [id number] By: #### METPL #### [facility]) ([id number]) [address] [place], [place] [address]Kytitcjnbwwgp [Moles/Vol]<0.53Ezpxto8.00-0.49Fort Hamilton HospitalComment on above:Performed By: #### METPL #### [facility]) ([id number]) [address] [place], [place] [address]Vfjondckojutyhg Free [Moles/Vol]0.51 nmol/LNormal 0.00-0.89UnMain Campus Medical CenterComment on above:Performed By: #### METPL #### [facility]) ([id number]) [address] [place], [place] [address]Rc Panel Informationon 55-61-8440Lqapsoeboqozft and review of laboratory resultsNoBlanchard Valley Health System Blanchard Valley HospitalUnCentervilleRenal function 1999 panelon 60-61-8662Pszkpqb BCP dye [Mass/Vol]4.3 g/dL3.4 - 5.0 g/dLUnCentervilleAnion gap [Moles/Vol]14 mmol/L10 - 20 mmol/[facility] Private HospitalCalcium [Mass/Vol]9.7 mg/dL8.6 - 10.6 mg/dLUnCentervilleChloride [Moles/Vol]102 mmol/L98 - 107 mmol/[facility] Private HospitalCO2 [Moles/Vol]28 mmol/L21 - 32 mmol/[facility] Private HospitalCreatinine [Mass/Vol]0.67 mg/dL0.50 - 1.05 mg/dLUnCentervilleeGUniversity Hospitals Elyria Medical CenterComsparrow ionia hospital on above:Calculations of estimated GFR are performed using the 2020 CKD-EPI Study Refit equation without therace variable for the IDMS-Traceable creatinine methods. https://jasn.asnjournals.org/content//ASN.8204477473 Glucose [Mass/Vol]101 mg/pOTwtc95 - 99 mg/dLUnCenterville Interpretation and review of laboratory resultsAbnoBlanchard Valley Health System Blanchard Valley HospitalPhosphate [Mass/Vol]3.9 mg/dL2.5 - 4.9 mg/dLUnDunlap Memorial Hospital on above:The performance characteristics of phosphorus testing in heparinized plasma have been validated by the individual laboratory site where testing is performed. Testing on heparinized plasma is not approved by the FDA; however, such approval is not necessary.Potassium [Moles/Vol]4.4 mmol/L3.5 - 5.3 mmol/[facility] Private HospitalSodium [Moles/Vol]140 mmol/L136 - 145 mmol/[facility] Private HospitalUrea nitrogen [Mass/Vol]12 mg/dL6 - 23 mg/dLUC Medical CenterUnCenterville Albumin BCP dye [Mass/Vol]4.3 g/dLNormal3.4-5.0UnMain Campus Medical CenterComment on above:Performed By: #### 39452-7 #### IDANIA Alexandre ([id number]) [facility] ([facility]) [id number] [place] [address]Yiqbz gap [Moles/Vol]14 mmol/NBqpzvo09-66QivyweqbryMain Campus Medical CenterComment on above:Performed By: #### 43188-7 #### IDANIA Alexandre ([id number]) [facility] ([facility]) [address] [place] [address]Daoajac [Mass/Vol]9.7 mg/dLNormal8.6-10.6UnMain Campus Medical CenterComment on above:Performed By: #### 79091-7 #### IDANIA Alexandre ([id number]) [facility] ([facility]) [address] [place] [address]Vfpdcqad [Moles/Vol]102 mmol/YVkirgq76-971TuwrvcbvwkMain Campus Medical CenterComment on above:Performed By: #### 83127-7 #### IDANIA Alexandre ([id number]) [facility] ([facility]) [address] [place] [address]OK3 [Moles/Vol]28 mmol/CKwdjah42-27LrhcxgecohMain Campus Medical CenterComment on above:Performed By: #### 62828-9 #### IDANIA Alexandre ([id number]) [facility] ([facility]) [address] [place] [address]Zavocgrlxl [Mass/Vol]0.67 mg/dLNormal0.50-1.05UnMain Campus Medical CenterComment on above:Performed By: #### 92485-1 #### IDANIA Alexandre ([id number]) [facility] ([facility]) [address] [place], [place] [address]GYK/1.73 sq M.predicted MDRD (S/P/Bld) [Vol rate/Area] mL/min/{1.73_m2}Normal>60UnMain Campus Medical CenterComment on above:Result Comment: Calculations of estimated GFR are performed using the 2020 CKD-EPI Study Refit equation without the race variable for the IDMS-Traceable creatinine methods. https://jasn.asnjournals.org/content/early//ASN.7395504001Nninejdnn By: #### 06173-2 #### IDANIA Alexandre ([id number]) [facility] ([facility]) [address] [place] [address]Abvzltz [Mass/Vol]101 mg/iOHqjt93-99MhwxefndvwMain Campus Medical CenterComment on above:Performed By: #### 24367-0 #### IDANIA Alexandre ([id number]) [facility] ([facility]) [address] [place], [place] [address]Nyckwytck [Mass/Vol]3.9 mg/dLNormal2.5-4.9UnMain Campus Medical CenterComment on above:Result Comment: The performance characteristics of phosphorus testing in heparinized plasma have bee n validated by the individual laboratory site where testing is performed. Testing on heparinizedplasma is not approved by the FDA; however, such approval is not necessary.Performed By: #### 63602-0 #### IDANIA Alexandre ([id number]) [facility] ([facility]) [address] [place], [place] [address]Zrrxzdiex [Moles/Vol]4.4 mmol/LNormal3.5-5.3UnMain Campus Medical CenterComment on above:Performed By: #### 24135-3 #### IDANIA Alexandre ([id number]) [facility] ([facility]) [id number] [place] [address] 18009Bkbjbx [Moles/Vol]140 mmol/TUedhcn922-132BzcjazbhlsSamaritan Hospital Medical CenterComment on above:Performed By: #### 86195-2 #### IDANIA Alexandre ([id number]) [facility] ([facility]) [id number] [place] [address] 31872Gkly nitrogen [Mass/Vol]12 mg/dLNormal6-23Fort Hamilton HospitalComment on above:Performed By: #### 00524-2 #### IDANIA Alexandre ([id number]) [facility] ([facility]) [address] [place] [address] 43154EZL Ab Qnon 60-18-0333Xiomsbdsdsyikl and review of laboratory resultsAbnoBlanchard Valley Health System Blanchard Valley HospitalNegative: <=60 U/mL Positive: >60 U/mLUC Medical CenterUnCentervilleTS Qnon 15-05-0918FXT testing is performed using different testing methodology at [facility] than at other [facility]. Direct result comparisons should only be made within the same method. UC Medical CenterThyroid Peroxidase (TPO) Antibodyon 04-10-2024 TPO Ab Qn275 [IU]/mLHighNICleveland Clinic Avon HospitalThyroid Stimulating Hormoneon 22-58-5682YFQ Qn3.61 m[IU]/[facility] Thyroperoxidase Abon 27-05-1530LOA Ab Qn275 [IU]/mLHigh<=60Fort Hamilton HospitalComment on above:Order Comment: Negative: <=60 U/mL Positive: >60 U/mLPerformed By: #### [id number] #### IDANIA Alexandre ([id number]) [facility] ([facility]) [address] [place] [address] 13367Aevfdftpwmnib 83-07-4844YYL Qn3.61 m[IU]/LNormal0.44-3.98 Fort Hamilton HospitalComment on above:Order Comment: TSH testing is performed using different testing methodology at [facility] than at other [facility]. Direct result comparisons should only be made within the same method.Performed By: #### 3016-3 #### IDANIA Alexandre ([id number]) [facility] ([facility]) [address] [place], [place] [address]Cxrjqcaxp, Freeon 47-58-0970Ipul T4 [Mass/Vol]1.46 ng/dL0.78 - 1.48 ng/dLUnCentervilleThyroxine.freeon 32-44-0351Xwvn T4 [Mass/Vol]1.46 ng/dLNormal0.78-1.48[facility] Comment on above:Order Comment: Thyroxine Free testing is performed using different testing methodology at [facility] than at other [facility]. Direct result comparisons should only be made withinthe same method. Performed By: #### 3024-7 #### IDANIA Alexandre ([id number]) [facility] ([facility]) [address] [place], [place] [address]Tthughhxep - Hematology and Cell countson 38-55-0484KrI0d (Bld) [Mass fraction]5.9 %[facility] HealthcareNo Panel Informationon 50-71-4476HBRC HealthcareCreatinine [Mass/volume] in UrineOrdered By: Lilliam Dexter on 89-22-7514Xninpfxfxn (U) [Mass/Vol]162.00 mg/dLTrinity Health System West Campus Comment on above:No reference range dijvfdwsmdlBqE7h HPLC (Bld) [Mass fraction] on 86-28-1348QcY1c (Bld) [Mass fraction]6.0 %[facility] Microalbumin [Mass/volume] in UrineOrdered By: Lilliam Dexter on 10-19-2023 Albumin DL <= 20 mg/L (U) [Mass/Vol]0.7 mg/dL0.0-1.8[facility] CampusNo Panel Informationon 01-83-4681Lkmzyyy Zqnvsed48WbdvrdmueTrinity Health System West CampusUrine microalbumin/creatinine mass ratioOrdered By: Lilliam Dexter on 96-90-2464Eakyvud/Creatinine DL <= 20 mg/L (U) [Mass ratio]4.3 mg/g0.0-30.0 [facility] West CampusComment on above:30-300 mg/g indicates an increased risk for diabetic nephropathy. Greater than 300 mg/g is consistent with clinical nephropathy. (Am. J. Kidney Disease 1995, 25:107)No Panel InformationOrdered By: Maricel Jones on 86-59-3525Jnhnh Strep (POC)[facility] CampusActivated partial thromboplastin time (aPTT) in platelet poor plasma by coagulation aOrdered By: Serg Boucher on 01-98-2035mAAJ Coag (PPP) [Time]27.8 s25.1-36.5FCoshocton Regional Medical CenterComment on above:A hematocrit value greater than 55% may lead to inaccurate results in coagulation testing. Patientshaving hematocrit values >55% require a special collection tube for coagulation studies. Please contact the laboratory at [phone] for redraw instructions.Basophils Auto (Bld) [#/Vol]Ordered By: Serg Boucher on 10-06-6407Rrsvzgzhx (Bld) [#/Vol]0.1 10*3/uL0.0-0.2FCoshocton Regional Medical CenterBasophils/100 WBC Auto (Bld)Ordered By: Serg Boucher on 08-06-2023 Basophils/100 WBC (Bld)1.1 %.[facility] CampusCalcium [Mass/volume] in Serum or PlasmaOrdered By: Serg Boucher on 86-16-7780Uhcvtss [Mass/Vol]8.7 mg/dL8.6-10.3FCoshocton Regional Medical CenterCarbon dioxide, total [Moles/volume] in Serum or PlasmaOrdered By: Serg Boucher on 35-03-3519EA5 [Moles/Vol]26.4 mmol/L21.0-31.0Tr[facility] CampusChloride [Moles/volume] in Serum or PlasmaOrdered By: Serg Boucher on 13-11-3407Sdnidrdm [Moles/Vol]106 mmol/J09-329HtgibvztkTrinity Health System West CampusCreatine kinase [Enzymatic activity/volume] in Serum or PlasmaOrdered By: Serg Boucher on 22-86-6085UM [Catalytic activity/Vol]91 U/Z78-426SyagbgqqiTrinity Health System West CampusCreatinine [Mass/volume] in Serum or PlasmaOrdered By: Serg Boucher on 63-70-5572Wcpgdtbees [Mass/Vol]0.67 mg/dL0.60-1.20[facility] CampusEosinophils Auto (Bld) [#/Vol]Ordered By: Serg Boucher on 08-06-2023 Eosinophils (Bld) [#/Vol]0.1 10*3/uL0.0-0.45[facility] Eosinophils/100 WBC Auto (Bld)Ordered By: Serg Boucher on 08-06-2023 Eosinophils/100 WBC (Bld)1.0 %.[facility] CampusErythrocyte distribution width Auto (RBC) [Ratio]Ordered By: Serg Boucher on 08-06-2023 Erythrocyte distribution width (RBC) [Ratio]14.6 %11.9-15.3FCoshocton Regional Medical CenterGlucose [Mass/volume] in Serum or PlasmaOrdered By: Serg Boucher on 95-54-5446Sotfzfs [Mass/Vol]111 mg/lS35-819PpixvmuleTrinity Health System West Campus Comment on above:ADA recommended reference rangeRandom Glucose Reference Range is dependent on time and content of last meal. Glucose of more than 200 mg/dL in a nonstressed, ambulatory subject supports the diagnosisof Diabetes Mellitus. Hematocrit Auto (Bld) [Volume fraction]Ordered By: Serg Boucher on 08-06-2023 Hematocrit (Bld) [Volume fraction]33.0 %34.0-46.4FCoshocton Regional Medical CenterHemoglobin [Mass/volume] in BloodOrdered By: Serg Boucher on 08-06-2023 Hemoglobin (Bld) [Mass/Vol]10.7 g/dL11.8-15.4FCoshocton Regional Medical Center INR in Platelet poor plasma by Coagulation assayOrdered By: Serg Boucher on 54-12-1871ZZK Coag (PPP) [Relative time]1.0 {INR}[facility] System West CampusComment on above:INR Therapeutic Range A) Pre- and Peroperative OAT started two weeks before surgery. NOT HIP SURGERY: 1.5 - 2.5 HIP SURGERY: 2 - 3B) Primary and secondary prevention of venous THROMBOSIS: 2 - 3C) Active venous thrombosis, pulmonary embolismand prevention of recurrent venous thrombosis: 2 - 3D) Prevention of arterial thromboembolismincluding patients with mechanical heart valves: 3 - 4.5Leukocytes [#/volume] corrected for nucleated erythrocytes in Blood by Automated counOrdered By: Serg Boucher on 40-97-9157VRL corrected for nucl RBC Auto (Bld) [#/Vol]11.6 10*3/uL3.8-11.6FCoshocton Regional Medical CenterLymphocytes Auto (Bld) [#/Vol]Ordered By: Serg Boucher on 08-06-2023 Lymphocytes (Bld) [#/Vol]1.9 10*3/uL1.00-4.8[facility] Lymphocytes/100 WBC Auto (Bld)Ordered By: Serg Boucher on 08-06-2023 Lymphocytes/100 WBC (Bld)16.6 %.[facility] OhioH Auto (RBC) [Entitic mass]Ordered By: Serg Boucher on 46-34-7283AWC (RBC) [Entitic mass]29.2 pg24.7-34.3FCoshocton Regional Medical CenterMCHC Auto (RBC) [Mass/Vol]Ordered By: Serg Boucher on 48-52-4193KMBI (RBC) [Mass/Vol]32.5 g/dL32.0-35.0[facility] CampusMCV Auto (RBC) [Entitic vol]Ordered By: Serg Boucher on 49-18-2363NWP (RBC) [Entitic vol]89.6 bR35-564OupjpgqrjTrinity Health System West Campus Monocyte distribution width [Entitic volume] in Blood by AutomatedOrdered By: Serg Boucher on 99-65-9124Mrxazwbu distribution width Auto (Bld) [Entitic vol] 15.33 %0.00-20.00Tr[facility] West CampusMonocytes Auto (Bld) [#/Vol] Ordered By: Serg Boucher on 20-64-9864Wruedfktw (Bld) [#/Vol]0.8 10*3/uL0.0-0.8 [facility] CampusMonocytes/100 WBC Auto (Bld)Ordered By: Serg Boucher on 16-08-9859Kebhuzxtg/100 WBC (Bld)6.7 %.[facility] CampusNatriuretic peptide B [Mass/Vol]Ordered By: Serg Boucher on 08-06-2023 Natriuretic peptide B (Bld) [Mass/Vol]38.0 pg/mL5-100Tr[facility] West CampusNeutrophils Auto (Bld) [#/Vol]Ordered By: Serg Boucher on 08-06-2023 Neutrophils (Bld) [#/Vol]8.7 10*3/uL1.8-7.7FCoshocton Regional Medical Center Neutrophils/100 WBC Auto (Bld)Ordered By: Serg Boucher on 08-06-2023 Neutrophils/100 WBC (Bld)74.6 %.[facility] CampusNo Panel InformationOrdered By: Serg Boucher on 72-26-0146Qbjtqinfc GFR (CKD-EPI)> 60.0 mL/MinTrinity Health System West CampusPharmacy Creatinine Clearance (Chem88.45 [facility] CampusNucleated erythrocytes [Presence] in Blood by Automated countOrdered By: Serg Boucher on 80-60-3840Tfgzjdbzn RBC Auto Ql (Bld) 0.1 /100{WBC}0-0.5FCoshocton Regional Medical CenterPlatelet mean volume Auto (Bld) [Entitic vol]Ordered By: Serg Boucher on 49-21-6773Iilbsbnc mean volume (Bld) [Entitic vol]7.7 fL6.3-10.7FCoshocton Regional Medical CenterPlatelets Auto (Bld) [#/Vol]Ordered By: Serg Boucher on 18-47-2897Rgdjvmsru (Bld) [#/Vol]322 10*3/yR029-246OjviafqtoTrinity Health System West CampusPotassium [Moles/volume] in Serum or PlasmaOrdered By: Serg Boucher on 00-53-8899Damkvywja [Moles/Vol]3.9 mmol/L 3.5-5.1FCoshocton Regional Medical CenterProthrombin time (PT)Ordered By: Serg Boucher on 93-15-0533SS Coag (PPP) [Time]11.4 s9.0-12.9Tr[facility] West CampusComment on above:A hematocrit value greater than 55% may lead to inaccurate results in coagulation testing. Patientshaving hematocrit values >55% require a special collection tube for coagulation studies. Please contact the laboratory at [phone] for redraw instructions.RBC Auto (Bld) [#/Vol]Ordered By: Serg Boucher on 15-19-4532IBY (Bld) [#/Vol]3.68 10*6/uL3.60-5.00McKitrick Hospitalerum or plasma anion gap determinationOrdered By: Serg Boucher on 24-37-9037Pigzz gap [Moles/Vol]7.5 mmol/L6.0-15.0McKitrick Hospitalodium [Moles/volume] in Serum or PlasmaOrdered By: Serg Boucher on 33-20-0815Yicijp [Moles/Vol]136 mmol/J739-869SmltemzlsTrinity Health System West Campus Troponin I.cardiac [Mass/volume] in Serum or Plasma by Detection limit <= 0.01 ng/Ordered By: Serg Boucher on 57-88-5831Odwhmgur I.cardiac DL <= 0.01 ng/mL [Mass/Vol]3.0 pg/mL0.0-15.0[facility] CampusUrea nitrogen [Mass/volume] in Serum or PlasmaOrdered By: Serg Boucher on 13-15-5026Xafo nitrogen [Mass/Vol]11 mg/dL7-25Tr[facility] CampusWBC Auto (Bld) [#/Vol]Ordered By: Serg Boucher on 09-18-4315KDD (Bld) [#/Vol]11.6 10*3/uL 3.8-11.6FCoshocton Regional Medical CenterAmbulatory Visit Summaryon 06-03-2023 Ambulatory Visit Summary BETTE VILLAFANA :1955 [...] FALK, Mayito Chowdhury Where: General Surgery Celia/Kendell [facility] General Surgery Office/Clinic Noteon 35-37-6566Axrwfli Surgery Office/Clinic NoteChief Complaint s/p cholecystectomy by HPI Staff Bette is a 68 y.o. female here for s/p cholecystectomy done on 05/16/[address] Yang at [facility] Patient denies excessive bleeding/pain/discharge/fever/chills. last colonoscopy at 64 y.o. [facility] History of Present Illness Bette Villafana is a 68-year-old female status post laparoscopic cholecystectomy performed by Dr. Yang. He is out of town. I am seeing the patient as a postop visit for him. Surgery was done on 05/16/2023 for cholecystitis where she was found to have rsoju-nv-hjvsinm gangrenous cholecystitis. During the procedure, a drain [...] swallowing difficulties, no hearing loss, no ear infection(s),no nose bleeds. Cardiovascular: Normal blood pressure, no [...] status post laparoscopic cholecystectomy performed at [facility] by Dr. Yang for gangrenous cholecystitis. 1. 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 We will provide a note for this. Portions of this record may have been created with voice recognition artificial intelligence software, specifically Tap[employer], [employer] and or [employer]. Substitutions may have occurred voice recognition and artificial intelligence software. Documentation services were performed after patient or guardian consented to allow dev9k to record this visit. JONAH start up specialist and provider reviewed before signing. JONAH: [...] Given Postpone due to refusal SARS-CoV-2 (COVID-19) mRNAMUL.ORD![id number] 05/11/2022 Recorded SARS-CoV-2 (COVID-19) mRNA BNT-162b2 vax 04/02/2021 Recorded SARS-CoV-2 (COVID-19) mRNA BNT-162b2 vax 09/15/2020 Recorded SARS-CoV-2 (COVID-19) mRNA BNT-162b2 vax 08/25/2020 RecordedGood Samaritan HospitalComment on above:Result Comment: Electronically Signed By: Emiliano Lagos MD\.br\Date and Time Signed: 06/03/23 09:25 EST\.br\Electronically Co- Signed By: Tiana Drake\.br\Date and Time Co-Signed: 06/03/23 09:08 EST Provider Letteron [id number] Letter June 03, 2023 BETTE [place]ILLAFANA [address] [place] [address] : 1955 To Whom It May Concern, Please excuse above patient from work. Date of Illness: From: 05/16/2023 To: 06/18/2023 May Return to Work On: 06/18/2023 Restrictions: No restrictions Comments: _ Sincerely, Emiliano Lagos MD [facility] General SurgeryNoCoshocton Regional Medical CenterPathology Noteon 05-26-2023 Pathology [id number]#1.00TIFTogus VA Medical CenterConsultation Noteon 91-43-1533Lcpmybrhhxvz Note [id number]#1.00TIFFGood Samaritan HospitalConsultation [id number]#1.00TIFFKnoxville Lozada [facility] CampusConsultation Note [id number]#1.00TIFTogus VA Medical CenterLab Reportson 10-23-3413Uhj Reports [id number]#1.00TIFTogus VA Medical CenterLab [id number]#1.00TIFTogus VA Medical CenterLab [id number]#1.00TIFF [facility] Samaritan HospitalOperative Reporton 90-73-7740Qciwndlrp Report [id number]#1.00TIFTogus VA Medical CenterLaboratory - Chemistry and Chemistry - challengeon 03-23-4036Rjbhdhb [Mass/Vol]2.5 g/dLTrinity Health System West CampusALP [Catalytic activity/Vol] 76 U/LFCoshocton Regional Medical CenterALT [Catalytic activity/Vol]32 U/L [facility] CampusAST [Catalytic activity/Vol]32 U/[facility] Samaritan HospitalBilirubin [Mass/Vol]0.7 mg/dLTrinity Health System West CampusCalcium [Mass/Vol]8.2 mg/dLTrinity Health System West CampusChloride [Moles/Vol]97 mmol/Good Samaritan HospitalCO2 [Moles/Vol]31 mmol/L [facility] CampusCreatinine [Mass/Vol]0.70 mg/dLTrinity Health System West CampusGFR/1.73 sq M.predicted MDRD (S/P/Bld) [Vol rate/Area] mL/min/{1.73_m2}[facility] CampusGlucose [Mass/Vol]148 mg/dL [facility] CampusPotassium [Moles/Vol]4.3 mmol/LFCoshocton Regional Medical CenterProtein [Mass/Vol]6.2 g/dLMcKitrick Hospitalodium [Moles/Vol]134 mmol/[facility]aritan HospitalUrea nitrogen [Mass/Vol]4.0 mg/dLTrinity Health System West CampusNo Panel Informationon 36-78-5218Ymouiajgw GFR (Non-> 60 mL/minTrinity Health System West CampusLaboratory - Chemistry and Chemistry - challengeon 05-16-2023 Albumin [Mass/Vol]3.0 g/dLTrinity Health System West CampusALP [Catalytic activity/Vol]78 U/[facility]aritan HospitalALT [Catalytic activity/Vol] 21 U/[facility] Samaritan HospitalAST [Catalytic activity/Vol]11 U/L [facility] CampusBilirubin [Mass/Vol]1.0 mg/dLTrinity Health System West CampusCalcium [Mass/Vol]8.7 mg/dLTrinity Health System [facility] Campus Chloride [Moles/Vol]99 mmol/[facility] Samaritan HospitalCO2 [Moles/Vol] 28.5 mmol/[facility] HospitalCreatinine [Mass/Vol]0.79 mg/dL [facility] CampusGFR/1.73 sq M.predicted MDRD (S/P/Bld) [Vol rate/Area]mL/min/{1.73_m2}[facility] CampusGlucose [Mass/Vol]134 mg/dLTrinity Health System West CampusPotassium [Moles/Vol]3.8 mmol/LFCoshocton Regional Medical CenterProtein [Mass/Vol]6.8 g/dLMcKitrick Hospitalodium [Moles/Vol]134 mmol/[facility]aritan HospitalUrea nitrogen [Mass/Vol]7.0 mg/dLTrinity Health System West CampusNo Panel Informationon 29-72-8476Cfqgdtngh GFR (Non-> 60 mL/minTrinity Health System West CampusGLYCOHEMOGLOBIN A1Con 59-67-3682DOU RECOMMENDATIONSEE BELOWNormtx The [facility] HospitalComment on above:Result Comment: ADA RECOMMENDED LIMIT 4.0 - 6.0 ADA THERAPEUTIC TARGET < 7.0 ACTION SUGGESTED > 7.0Performed By: #### PTT, PT #### [facility] [address] [address] [address] Vivian FallGlucose [Mass/Vol]120 mg/dLNoCorey HospitalComment on above:Performed By: #### PTT, PT #### [facility] [address] [address] [address] Vivian FallHbA1c (Bld) [Mass fraction]5.8 %Normal4.5-6.2Avita Health SystemComment on above:Performed By: #### PTT, PT #### [facility] [address] [place] [address] Dr. Vivian FallLIPID PROFILEon 39-61-2267MBOK-HDL RATIO NORMSEE BELOWUpper Valley Medical CenterComment on above:Result Comment: 3.3 - 4.4 LOW RISK 4.4 - 7.1 AVERAGE RISK 7.1 - 11.0 MODERATE RISK >11.0 HIGH RISKPerformed By: #### PTT, PT #### [facility] [address] [place] [address] Dr. Vivian FallCholesterol [Mass/Vol]171 mg/dLNormal<=200The [facility] Comment on above:Performed By: #### PTT, PT #### [facility] [address] [place] [address] Dr. Vivian FallCholesterol in HDL [Mass/Vol]52 mg/rCYlithk29-51Mec [facility] HospitalComment on above:Performed By: #### PTT, PT #### [facility] [address] [place] [address] Dr. Vivian FallCholesterol in LDL [Mass/Vol]89.8 mg/dLNoCorey HospitalComsparrow ionia hospital on above:Performed By: #### PTT, PT #### [facility] [address] [address] [address] Vivian FallCholesterol.total/Cholesterol in HDL [Mass ratio]3.3 {ratio} NormalThe [facility] HospitalComment on above:Performed By: #### PTT, PT #### [facility] [address] [place] [address] Dr. Vivian Aguirre NORMAL> or = 60 mg/dl - LOW CARDIOVASCULAR RISK <40 mg/dl - HIGH CARDIOVASCULAR RISKUpper Valley Medical CenterComment on above:Performed By: #### PTT, PT #### [facility] [address] [place] [address] Dr. Vivian FallLDL CALC NORMALSEE BELOWUpper Valley Medical CenterComment on above:Result Comment: <100 mg/dl OPTIMAL 100 - 129 mg/dl NEAR OR ABOVE OPTIMAL 130 - 159 mg/dl BORDERLINE HIGH 160 - 189 mg/dl HIGH >190 mg/dl VERY HIGH Performed By: #### PTT, PT #### [facility] [address] [place] [address] Dr. Vivian FallTriglyceride [Mass/Vol]146 mg/dLNormal<=150The [facility] Comment on above:Performed By: #### PTT, PT #### [facility] [address] [place] [address] Dr. Vivian FallVLDL CALC29.2 mg/dLNoCorey HospitalComment on above: Performed By: #### PTT, PT #### [facility] [address] [place] [address] Dr. Vivian FallPROF 14(COMP METB)on 21-13-4623Juqycja [Mass/Vol]3.6 g/dLNormal 3.4-5.0The [facility] HospitalComment on above:Performed By: #### CMP, LIPID #### [facility] [address] [place] [address] Dr. Vivian FallAlbumin/Globulin [Mass ratio]0.9 {ratio}NormalThe [facility] HospitalComment on above:Performed By: #### CMP, LIPID #### [facility] [address] [address] [address] Vivian Ellison [Catalytic activity/Vol]81 U/FTlwihj49-548Yfo [facility] HospitalComment on above:Performed By: #### CMP, LIPID #### [facility] [address] [address] [address] Vivian BenitoT [Catalytic activity/Vol]22 U/QPxttmh25-80Qem [facility] HospitalComment on above:Performed By: #### CMP, LIPID #### [facility] [address] [address] [address] Vivian More gap [Moles/Vol]12.5 mmol/LNormalThe [facility] Comment on above:Performed By: #### CMP, LIPID #### [facility] [address] [address] [address] Vivian FallAST [Catalytic activity/Vol]15 U/UBsdrll71-73Hkg [facility] HospitalComment on above:Performed By: #### CMP, LIPID #### [facility] [address] [address] [address] Vivian FallBilirubin [Mass/Vol]0.6 mg/dLNormal0.2-1.0The [facility] Comment on above:Performed By: #### CMP, LIPID #### [facility] [address] [address] [address] Vivian FallCalcium [Mass/Vol]9.1 mg/dLNormal8.5-10.1The [facility] Comment on above:Performed By: #### CMP, LIPID #### [facility] [address] [address] [address] Vivian FallChloride [Moles/Vol]103 mmol/VZwozjn54-938Bdt [facility] Comment on above:Performed By: #### CMP, LIPID #### [facility] [address] [address] [address] Vivian FallCO2 [Moles/Vol]27.6 mmol/OKshhjc36.0-32.0The [facility] Comment on above:Performed By: #### CMP, LIPID #### [facility] [address] [address] [address] Vivian FallCreatinine [Mass/Vol]0.78 mg/dLNormal0.55-1.02[facility] Jewish Hospitalment on above:Performed By: #### CMP, LIPID #### [facility] [address] [address] [address] Vivian JacquesGFR-AF NIUEAN>60Normal>=60The [facility] HospitalComment on above:Performed By: #### CMP, LIPID #### [facility] [address] [address] [address] Vivian JacquesGFR-NON AF NIUEAN>60Normal>=60The [facility] HospitalComment on above:Performed By: #### CMP, LIPID #### [facility] [address] [address] [address] Vivian FallGlobulin (S) [Mass/Vol]3.8 g/dLNormalThe [facility] HospitalComment on above:Performed By: #### CMP, LIPID #### [facility] [address] [address] [address] Vivian FallGlucose [Mass/Vol]105 mg/gDWkmfdn21-516LyxAvita Health System Comment on above:Performed By: #### CMP, LIPID #### [facility] [address] [place] [address] Dr. Vivian FallPotassium [Moles/Vol]4.1 mmol/LNormal3.5-5.1The [facility] Comment on above:Performed By: #### CMP, LIPID #### [facility] [address] [address] [address] Vivian FallProtein [Mass/Vol]7.4 g/dLNormal6.4-8.2[facility] Comment on above:Performed By: #### CMP, LIPID #### [facility] [address] [address] [address] Vivian FallSodium [Moles/Vol]139 mmol/DZvkkkh569-060Mem [facility] Comment on above:Performed By: #### CMP, LIPID #### [facility] [address] [place] [address] Dr. Vivian Javier nitrogen [Mass/Vol]11.0 mg/dLNormal7.0-18.0The [facility] on above:Performed By: #### CMP, LIPID #### [facility] [address] [place] [address] Dr. Vivian FallUrea nitrogen/Creatinine [Mass ratio]14.1 mg/mgNoCorey HospitalComment on above:Performed By: #### CMP, LIPID #### [facility] [address] [place] [address] Dr. Vivian FallVITAMIN B12on 35-90-5446Gkdxylggx (Vitamin B12) [Mass/Vol]373.0 pg/yWTjwkik814.0-986.0The [facility] on above:Performed By: #### PTT, PT #### [facility] [address] [place] [address] Dr. Vivian FallVITAMIN D 25 OHon 19-03-1544JHQ D 25-OH16.1 ng/mLNormalThe [facility] on above:Performed By: #### PTT, PT #### [facility] [address] [place] [address] Dr. Vivian Viramontes [place] BELOWUpper Valley Medical CenterComsparrow ionia hospital on above: Result Comment: <20 ng/mL Vit D deficient 20 - <30 ng/mL Vit D insufficient 30 - 100 ng/mL Vit D sufficient >100 ng/mL Potential ToxicityPerformed By: #### PTT, PT #### [facility] [address] [place] [address] Dr. Vivian FallBNPon 01-90-8911Ixlzbuorril peptide B (Bld) [Mass/Vol]223.0 pg/mL Normal<=900.0The [facility] on above:Performed By: #### CMP, HSTROPN, BNP #### [facility] [address] [place] [address] Dr. Vivian Mariscal AUTO DIFFon 41-18-2748SNYK #0.0 103/ulNormal0.0-0.1The [facility] HospitalComment on above:Performed By: #### CBC #### [facility] [address] [place] [address] Dr. Vivian FallBasophils/100 WBC (Bld)0.2 %Normal0.2-2.0[facility] Comment on above:Performed By: #### CBC #### [facility] [address] [place] [address] Dr. Vivian Haq #0.0 103/ulNormal0.0-0.7The [facility] HospitalComment on above: Performed By: #### CBC #### [facility] [address] [place] [address] Dr. Vivian Jacquesosinophils/100 WBC (Bld)0.0 %Critically low0.9-7.0The [facility] HospitalComment on above:Performed By: #### CBC #### [facility] [address] [place] [address] Dr. Vivian Jacquesrythrocyte distribution width (RBC) [Ratio]13.0 %Dffltm20.0-15.0 The [facility] HospitalComment on above:Performed By: #### CBC #### [facility] [address] [place] [address] Dr. Vivian FallHematocrit (Bld) [Volume fraction]36.2 %Qhowyt52.0-48.0The [facility] HospitalComment on above:Performed By: #### CBC #### [facility] [address] [place] [address] Dr. Vivian FallHemoglobin (Bld) [Mass/Vol]12.2 g/jTHlffpa96.0-16.0The [facility] HospitalComment on above:Performed By: #### CBC #### [facility] [address] [place] [address] Dr. Vivian Wang #0.08 10e3/ulCritically high0.00-0.03[facility] Comment on above:Performed By: #### CBC #### [facility] [address] [place] [address] Dr. Vivian Wang %1.3 %Critically high0.0-0.5The [facility] HospitalComment on above:Performed By: #### CBC #### [facility] [address] [address] [address] Vivian Luke #0.3 103/ulCritically low1.2-3.8The [facility] Comment on above:Performed By: #### CBC #### [facility] [address] [address] [address] Vivian Ceballoshocytes/100 WBC (Bld)4.2 %Critically low20.5-60.0The [facility] HospitalComment on above:Performed By: #### CBC #### [facility] [address] [place] [address] Dr. Vivian Moe DIFF REQNONormalThe [facility] HospitalComment on above: Performed By: #### CBC #### [facility] [address] [place] [address] Dr. Vivian Gillette (RBC) [Entitic mass]29.2 wbMefmnd60.7-34.0The [facility] HospitalComment on above:Performed By: #### CBC #### [facility] [address] [place] [address] Dr. Vivian Gillette (RBC) [Mass/Vol]33.7 g/hFVpkleq60.9-35.2The [facility] HospitalComment on above:Performed By: #### CBC #### [facility] [address] [place] [address] Dr. Vivian Gillette (RBC) [Entitic vol]86.6 mKCaqljt64.0-99.0The [facility] HospitalComment on above:Performed By: #### CBC #### [facility] [address] [place] [address] Dr. Vivian Evangelista #0.2 103/ulCritically low0.3-0.8The [facility] HospitalComment on above:Performed By: #### CBC #### [facility] [address] [address] [address] Vivian Hornocytes/100 WBC (Bld)3.5 %Normal1.7-12.0The [facility] Comment on above:Performed By: #### CBC #### [facility] [address] [place] [address] Dr. Vivian SchwartzUT #5.7 103/ulNormal1.4-6.5The [facility] HospitalComment on above:Performed By: #### CBC #### [facility] [address] [place] [address] Dr. Vivian Schwartzutrophils/100 WBC (Bld)90.8 %Critically high43.0-75.0The [facility] HospitalComment on above:Performed By: #### CBC #### [facility] [address] [place] [address] Dr. Vivian Galeanolet mean volume (Bld) [Entitic vol]9.8 fLNormal9.5-13.5The [facility] HospitalComment on above:Performed By: #### CBC #### [facility] [address] [place] [address] Dr. Vivian FallPLT224 103/taYwqbnn194-069Cbl [facility] HospitalComment on above: Performed By: #### CBC #### [facility] [address] [place] [address] Dr. Vivian FallRBC4.18 106/ulCritically low4.20-5.40The [facility] HospitalComment on above:Performed By: #### CBC #### [facility] [address] [place] [address] Dr. Vivian FallWBC6.3 103/ulNormal4.0-11.0The [facility] HospitalComment on above: Performed By: #### CBC #### [facility] [address] [place] [address] Dr. Vivian FallCT ABD/PELVIS WO CONon 72-78-7197DJ ABD/PELVIS WO CONEXAMINATION: CT ABD/PELVIS WO CON, 06/29/2022 10:19 AM [...] Electronically authenticated by: ANASTACIO BARBOZA Date: 2022-06-29 11:26NormPeoples Hospital HospitalCULTURE BLOODon 08-95-4542Luvimnjwxff examination of blood, cultureCulture Observations: NO GROWTH AT 5 DAYS. Isolate 1 BC_BA_NANorOhioHealth Marion General HospitalComment on above:Performed By: #### PTT, PT #### [facility] [address] [address] [address] Vivian FallMicroscopic examination of blood, cultureCulture Observations: NO GROWTH AT 5 DAYS. Isolate 1 BC_BA_NANorOhioHealth Marion General HospitalComment on above:Performed By: #### PTT, PT #### [facility] [address] [place] [address] Dr. Vivian FallCULTURE URINEon 83-98-5148PWOQYNJ URINECulture Observations: NO GROWTH.NormalAvita Health SystemComment on above:Performed By: #### PTT, PT #### [facility] [address] [place] [address] Dr. Vivian FallCovid-19 PCR ([facility]VDWH[facility]TI[facility])on 87-72-1092XFEX-CoV-2 (COVID-19) RNA JONY+probe Ql (Unsp spec)Not detectedNormalNOT [facility] Comment on above:Result Comment: When diagnostic testing is negative, the [...] for this test is supported by the [place] of Health and Human Service's declaration that circumstances exist to justify the emergency use of in vitro diagnostics for the detection and/or diagnosis of the virus that causes COVID-19. This EUA will remain in effect for the duration of the COVID-19 declaration justifying emergency of IVDs, unless it is terminated or revoked by the FDA (after which the test may no longer be used).Performed By: #### CVDTBH #### [facility] [address] [place] [address] Dr. Vivian Adam URINE PROFILEon 40-77-9171Drnpuojae Ql (U)SMALLAbnormal NEGATIVEAvita Health SystemComment on above:Performed By: #### PTT, PT #### [facility] [address] [place] [address] Dr. Vivian FallClarity (U)CLEARNormalCLEARAvita Health SystemComment on above: Performed By: #### PTT, PT #### [facility] [address] [place] [address] Dr. Vivian Herr (U)DK. YELLOWNormalYELLOWAvita Health SystemComsparrow ionia hospital on above:Performed By: #### PTT, PT #### [facility] [address] [place] [address] Dr. Vivian DiazANISA micrscopic examination will be performed if indicated. NormalAvita Health SystemComment on above:Performed By: #### PTT, PT #### [facility] [address] [place] [address] Dr. Vivian FallGlucose Ql (U)NegativeNormalNEGATIVEAvita Health SystemComsparrow ionia hospital on above:Performed By: #### PTT, PT #### [facility] [address] [place] [address] Dr. Vivian FallHemoglobin Ql (U)TRACE-INTACTAbnormalNEGATIVEAvita Health SystemComment on above:Performed By: #### PTT, PT #### [facility] [address] [place] [address] Dr. Vivian FallKetones Ql (U)NegativeNormalNEGATIVEAvita Health SystemComsparrow ionia hospital on above:Performed By: #### PTT, PT #### [facility] [address] [place] [address] Dr. Vivian FallLEUKOCYTESNegativeNormalNEGATIVEAvita Health SystemComsparrow ionia hospital on above:Performed By: #### PTT, PT #### [facility] [address] [address] [address] Vivian Lopez Ql (U)NegativeNormalNEGATIVEThe [facility] HospitalComment on above:Performed By: #### PTT, PT #### [facility] [address] [place] [address] Dr. Vivian FallpH (U)6.0 [pH]Normal5-9The [facility] HospitalComment on above: Performed By: #### PTT, PT #### [facility] [address] [place] [address] Dr. Vivian FallProtein (U) [Mass/Vol]100 mg/dLAbnormalNEGATIVE/ TRACEThe [facility] HospitalComment on above:Performed By: #### PTT, PT #### [facility] [address] [place] [address] Dr. Vivian FallSPEC GRAVITY>=1.191Wvsisuzh2.005-<=1.025The [facility] Comment on above:Performed By: #### PTT, PT #### [facility] [address] [place] [address] Dr. Vivian Mejia MICRO INDINDICATEDNormalThe [facility] HospitalComment on above: Performed By: #### PTT, PT #### [facility] [address] [place] [address] Dr. Vivian Mondragonbilinogen Qn (U)1.0 {Nia'U}/dLNormal0.2 - 1.0The [facility] HospitalComment on above:Performed By: #### PTT, PT #### [facility] [address] [place] [address] Dr. Vivian FallLACTATE/LACTIC ACIDon 01-47-2729Ooaqupb [Moles/Vol]1.3 mmol/L Normal0.4-1.9The [facility] HospitalComment on above:Performed By: #### LACT #### [facility] [address] [place] [address] Dr. Vivian Mendozactate [Moles/Vol]3.1 mmol/LCritically high0.4-1.9The [facility] HospitalComment on above:Performed By: #### LACT #### [facility] [address] [place] [address] Dr. Vivian FallLIPASEon 64-69-0114Mnavub [Catalytic activity/Vol]88.0 U/LNormal 73.0-393.0The [facility] HospitalComment on above:Performed By: #### LIPA #### [facility] [address] [place] [address] Dr. Vivian FallPROF 14(COMP METB)on 70-48-0891Zoghzvp [Mass/Vol]3.4 g/dLNormal 3.4-5.0The [facility] HospitalComment on above:Performed By: #### CMP, HSTROPN, BNP #### [facility] [address] [place] [address] Dr. Vivian FallAlbumin/Globulin [Mass ratio]0.9 {ratio}NormalThe [facility] HospitalComment on above:Performed By: #### CMP, HSTROPN, BNP #### [facility] [address] [place] [address] Dr. Vivian BenitoP [Catalytic activity/Vol]145 U/LCritically zisr14-678Hxi [facility] Hospitalment on above:Performed By: #### CMP, HSTROPN, BNP #### [facility] [address] [place] [address] Dr. Vivian Bauman [Catalytic activity/Vol]454 U/LCritically qhjn00-88Dbd [facility] HospitalComment on above:Performed By: #### CMP, HSTROPN, BNP #### [facility] [address] [place] [address] Dr. Vivian More gap [Moles/Vol]15.7 mmol/LNormalThe [facility] Comment on above:Performed By: #### CMP, HSTROPN, BNP #### [facility] [address] [place] [address] Dr. Vivian FallAST [Catalytic activity/Vol]404 U/LCritically wlzu19-73Jnt [facility] HospitalComment on above:Performed By: #### CMP, HSTROPN, BNP #### [facility] [address] [place] [address] Dr. Vivian FallBilirubin [Mass/Vol]1.4 mg/dLCritically high0.2-1.0The [facility] HospitalComment on above:Performed By: #### CMP, HSTROPN, BNP #### [facility] [address] [place] [address] Dr. Vivian FallCalcium [Mass/Vol]8.7 mg/dLNormal8.5-10.1The [facility] Comment on above:Performed By: #### CMP, HSTROPN, BNP #### [facility] [address] [place] [address] Dr. Vivian FallChloride [Moles/Vol]94 mmol/LCritically skb75-353Gpg [facility] HospitalComment on above:Performed By: #### CMP, HSTROPN, BNP #### [facility] [address] [place] [address] Dr. Vivian FallCO2 [Moles/Vol]22.0 mmol/IGaqsjv06.0-32.0The [facility] Comment on above:Performed By: #### CMP, HSTROPN, BNP #### [facility] [address] [place] [address] Dr. Vivian FallCreatinine [Mass/Vol]1.30 mg/dLCritically high0.55-1.02The [facility] HospitalComment on above:Performed By: #### CMP, HSTROPN, BNP #### [facility] [address] [place] [address] Dr. Park ChangEGFR-AF EGKEQPPB85 mL/min/1.94m1Cgqehitohj low>=60The [facility] HospitalComment on above:Performed By: #### CMP, HSTROPN, BNP #### [facility] [address] [place] [address] Dr. Park ChangEGFR-NON AF GSDZQDWM20 mL/min/1.08d1Nprwdfuxao low>=60The [facility] HospitalComment on above:Performed By: #### CMP, HSTROPN, BNP #### [facility] [address] [address] [address] Vivian FallGlobulin (S) [Mass/Vol]3.7 g/dLNormSelect Medical Specialty Hospital - ColumbusComment on above:Performed By: #### CMP, HSTROPN, BNP #### [facility] [address] [place] [address] Dr. Vivian FallGlucose [Mass/Vol]166 mg/dLCritically rhdo70-118Azu [facility] HospitalComment on above:Performed By: #### CMP, HSTROPN, BNP #### [facility] [address] [place] [address] Dr. Vivian FallPotassium [Moles/Vol]3.7 mmol/LNormal3.5-5.1The [facility] Comment on above:Performed By: #### CMP, HSTROPN, BNP #### [facility] [address] [place] [address] Dr. Vivian FallProtein [Mass/Vol]7.1 g/dLNormal6.4-8.2The [facility] Comment on above:Performed By: #### CMP, HSTROPN, BNP #### [facility] [address] [place] [address] Dr. Vivian FallSodium [Moles/Vol]128 mmol/LCritically snt482-064Toq [facility] HospitalComment on above:Performed By: #### CMP, HSTROPN, BNP #### [facility] [address] [place] [address] Dr. Vivian FallUrea nitrogen [Mass/Vol]15.0 mg/dLNormal7.0-18.0The [facility] HospitalComment on above:Performed By: #### CMP, HSTROPN, BNP #### [facility] [address] [place] [address] Dr. Vivian FallUrea nitrogen/Creatinine [Mass ratio]11.5 mg/mgNoCorey HospitalComment on above:Performed By: #### CMP, HSTROPN, BNP #### [facility] [address] [place] [address] Dr. Vivian FallPROTIMEon 39-13-3924AZP Coag (PPP) [Relative time]1.08 {INR} NormalThe [facility] Hospitalment on above:Performed By: #### PTT, PT #### [facility] [address] [place] [address] Dr. Vivian Lopez GUIDELINESSEE BELOWNoalThBucyrus Community HospitalComment on above:Result Comment: DESIRED INR: 2.0 - 3.0 CONDITIONS NOT LISTED BELOW 2.5 - 3.5 FOR PROSTHETIC HEART VALVE REPLACEMENT 2.5 - 3.5 RECURRENT THROMBOSIS Performed By: #### PTT, PT #### [facility] [address] [place] [address] Dr. Vivian FallPT Coag (PPP) [Time]11.4 sNormal9.0-11.6The [facility] Comment on above:Performed By: #### PTT, PT #### [facility] [address] [place] [address] Dr. Vivian ParikhTon 23-35-1688bRQL Coag (Bld) [Time]32.2 mBinkzm76.3-36.2The [facility] HospitalComment on above:Performed By: #### PTT, PT #### [facility] [address] [place] [address] Dr. Vivian Avina, HIGH SENSITIVITYon 01-26-7334BIHISP0.8 pg/mLNormal 4.0-51.3The [facility] on above:Result Comment: CUT-OFF POINTS HAVE BEEN ESTABLISHED BASED ON THE FOURTH UNIVERSAL DEFINITIONS OF MYOCARDIAL INFARCTION. THE UPPER REFERENCE LIMIT (URL) OF TROPONIN, DEFINED THE 99TH PERCENTILE OF cTnI DISTRIBUTION IN A REFERENCE POPULATION, HAS BEEN CONFIRMED THE DECISION THRESHOLD FOR TN DIAGNOSIS.Performed By: #### CMP, HSTROPN, BNP #### [facility] [address] [place] [address] Dr. Vivian Box MICROSCOPIC ONLYon 73-01-0529CILZJOCPPFDWXRfdinkazCCYB SEEN The [facility] HospitalComment on above:Performed By: #### PTT, PT #### [facility] [address] [place] [address] Dr. Vivian Collins identified Cx Nom (U)INDICATEDNoalThBucyrus Community HospitalComsparrow ionia hospital on above:Performed By: #### PTT, PT #### [facility] [address] [place] [address] Dr. Vivian Garcia SEENNormalNONE SEENCleveland Clinic [facility] on above:Performed By: #### PTT, PT #### [facility] [address] [place] [address] Dr. Vivian FallCrystals LM Nom (Urine sed)NONE SEENNormalNONE SEENCleveland Clinic Akron General on above:Performed By: #### PTT, PT #### [facility] [address] [place] [address] Dr. Park ChangEstevethelial cells LM Ql (Urine sed)FEWAbnormalNONE SEEN /RAREThe [facility] HospitalComsparrow ionia hospital on above:Performed By: #### PTT, PT #### [facility] [address] [place] [address] Dr. Vivian DohertyCOUSSMALLAbnormalNONE SEENCleveland Clinic [facility] on above:Performed By: #### PTT, PT #### [facility] [address] [place] [address] Dr. Vivian BradyTowdhHXW8-1Hvcrsu5-3Oco [facility] HospitalComsparrow ionia hospital on above:Performed By: #### PTT, PT #### [facility] [address] [place] [address] Dr. Vivian FallWBC0-2AbnormalNONE SEENCleveland Clinic [facility] on above: Performed By: #### PTT, PT #### [facility] [address] [place] [address] Dr. Vivian FallXR CHEST 1 Von 63-36-1665JE CHEST 1 VEXAM: XR CHEST 1 V HISTORY: Altered mental status COMPARISON: None. TECHNIQUE: Frontal view of the chest. FINDINGS: No focal consolidations or pleural effusions. Cardiomegaly. Thoracic spine spondylosis. IMPRESSION: No acute disease. Cardiomegaly. Electronically authenticated by: ZEYAD SOFIA Date: 2022-06-29 10:38[facility] CenterOffice Visit (Cardiology)on 13-09-0619Rfoxkv-up visit Diagnoses/Problems Assessed Abnormal echocardiogram (793.2) (R93.1) Never a smoker Hypothyroidism (244.9) (E03.9) Added by Problem List Migration; 2013-02-28; Moved to [facility] Mar 24 2013 9:03PM Hyperlipidemia (272.4) (E78.5) [...] (V16.51) (Z80.51) Social H (more content not included)...NormalUH TouchworksTobacco Screening.on 01-39-4191Belof depression screening assessmentNo-[facility]-[employer] [address] DO Work Phone: Fall risk assessmenta) No falls within the last year [facility]-[employer] [address] DO Work Phone: Tobacco use status CPHSb) NoM-[facility]- [place] [address] DO Work Phone: ECHOCARDIO M/2D COMPLETEon 44-04-2961RNTCMMLXXV M/2D COMPLETEPatient: BETTE VILLAFANAJuliana Exam Date: 05/11/2022 : 1955 Gender:F Ordering : DR ZULMA MOE PA Admission #: [id number] Family : Order #: [id number] CLICK HERE TO VIEW EXAM ECHOCARDIOGRAM REPORT [...] by: Joseline Alarcon M.D. on 05/13/2022 at 10:52[facility] CenterMG MAMM SCREEN 3D ALFA CADon 06-17-2458PB MAMM SCREEN 3D ALFA CADPatient: BETTE VILLAFANA Exam Date: 05/11/2022 : 1955 Gender:F Ordering : DR ZULMA SINGH Admission #: [id number] Family : Order #: [id number] CLICK HERE TO VIEW EXAM RADIOLOGY REPORT [...] cancer at age 52. LOCATION: [facility] BREAST COMPOSITION: Almost entirely fatty. [...] by: Carol Ascencio M.D. on 05/11/2022 at 14:26NormalThe Diana HospitalEstablished Visit (Otolaryngology)on 85-98-6566Bsccbnadwrt Visit (Otolaryngology)Diagnoses/Problems Tracheal stenosis (519.19) (J39.8) Esophageal reflux (530.81) [...] does show a stenotic segment. I do notbelieve that the stenotic segment is stenosed in [...] Recorded: 09Feb2022 03:01PM Height5 ft 4 in Qkllqi833 lb BMI Tyihprznzi75.35 kg/m2 BSA Calculated2.22 Tobacco Useb) No Falls [...] MD; Feb 09 2022 3:21PM EST (Author) NormalUH TouchworksTobacco Screening.on 65-28-7470Ggba risk assessmentc) Not medically lvxomsmvwBY-Nsriopdizxnrxy-Ysxjowno Work Phone: Tobacco use status CPHSb) UrFO-Rzjvzbfulenxmq-Fyapikdt Work Phone: Reference Laboratory TestingOrdered By: Generated DomainUser on 25-73-7844UBLI-CoV-2 (COVID-19) RNA JONY+probe Ql (Resp)Not detectedInvalid Interpretation CodeNot [facility]edCOMM[facility] [place] SendOutsSSComment on above: Result Comment: This nucleic acid amplification test was developed and its performance characteristics determined by [employer]. Nucleic acid amplification tests include RT-PCR and [...] detected) result in this assay. Performed at: [address] [id number] PhD Anita French Screening.on 29-30-7872Ofar risk assessmenta) No falls within the last wqhrVL-Wriclchuisfxpr-Qclamqjd Work Phone: Tobacco use status CPHSb) GeCP-Mlypqspdxzhcmq-Uslghpco Work Phone: coronavirus 2019 RNA by PCR, Screening Asymptomticon 35-76-3090Jterrmsvrpb 2019 RNA by PCR, Screening AsymptomticNot detectedNormal See TkpgnQN-Wewvbodbvfpjhl-Xmlfibl Work Phone: comment on above:SOURCE: Nasal, NasopharyngealReference Range: Not Detected.This assay is designed to detect the N, ORF1ab and/or S genes of SARS-CoV-2 via nucleic acid amplification. A Negative (NOT DETECTED) resultdoes not preclude 2019-nCoV infection since the adequacy of sample collection and/or low viral burden may result in presence of viral nucleic acids below the clinical sensitivity of this test method.Negative (NOT DETECTED) result should not be used as the sole basis for treatment or other patient management decisions. Rather negative results should be combined with clinical observations, patienthistory, and epidemiological information to make patient management decisions.Fact sheet for providers: https://www.fda.gov/media/303559/downloadFact sheet for patients: https://www.fda.gov/media/327979/downloadThis test has received FDA Emergency Use Authorization (EUA) and has been verified by [facility] ([facility]). This test is only authorized for the duration of time that circumstances exist to justify the authorization of the emergency use of in vitro diagnostic tests for the detection of SARS-CoV-2 virus and/or diagnosis of COVID-19 infection under section 564(b)(1) of the Act, 21 U.S.C. 360bbb- 3(b)(1), unless the authorization is terminated or revoked sooner. [facility] is certified under CLIA-88 as qualified to perform high complexity testing. Testing is performed in the [facility] laboratories located at [address] [place] [address].Laboratory - Blood bankon 60-86-5908EJC group Nom (Bld)KSH-Wzlmkzoobdisnx-Zgxqefj Work Phone: [phone] group antibody screen QlNegative MX-Gkgsxafozsvacl-Skwuhip Work Phone: [phone] immune globulin screen (Bld) [Interp]Positive UJ-Sgbeevelwvnscy-Vlxxuli Work Phone: [phone] - Chemistry and Chemistry - challengeon 90-44-4279Jojdo gap [Moles/Vol]13 mmol/L10 - 13TH-Zkwlrltcbrnthm-Lrerwhm Work Phone: [phone] [Mass/Vol]9.3 mg/dL8.6 - 10.6 UV-Fznnaxiradogfo-Ziftwvw Work Phone: [phone] [Moles/Vol]102 mmol/L98 - 107 NY-Cnlifqjtiulvdx-Lmsnljq Work Phone: [phone] [Moles/Vol]28 mmol/L21 - 32 NE-Iadtjteqlcyimk-Ygncgwq Work Phone: [phone] [Mass/Vol]0.77 mg/dLSee Below HY-Kafhfnpyrhliqt-Yrtidfc Work Phone: [phone] on above:Reference Range: 0.50 - 1.05Glucose [Mass/Vol]95 mg/dL74 - 19II-Gbcsbmavztgzog-Whzpvds Work Phone: [phone] [Moles/Vol]5.2 mmol/L3.5 - 5.3 NP-Djqrcsfzfqffjs-Xlywkhu Work Phone: [phone] [Moles/Vol]138 mmol/L136 - 145 TC-Nigzcbrdxflesf-Auakmau Work Phone: [phone] nitrogen [Mass/Vol]19 mg/dL6 - 23 PY-Aieozyicssrxch-Eldbzhm Work Phone: [phone] - Hematology and Cell countson 03-13-2021 Erythrocyte distribution width (RBC) [Ratio]12.8 %See Below LV-Fculzohoakddzx-Ifuvgum Work Phone: [phone] on above:Reference Range: 11.5 - 14.5 Hematocrit (Bld) [Volume fraction]38.6 %See PwstlGQ-Aotcrscdukczgt-Wragmpb Work Phone: [phone] on above:Reference Range: 36.0 - 46.0 Hemoglobin (Bld) [Mass/Vol]11.8 g/dLbelow low thresholdSee Below HL-Quykzebobyhbkp-Hinpzlb Work Phone: [phone] on above:Reference Range: 12.0 - 16.0MCHC (RBC) [Mass/Vol]30.6 g/dLbelow low thresholdSee DftynMF-Upilqbgsrbmevo-Fjinhag Work Phone: [phone] on above:Reference Range: 32.0 - 36.0MCV (RBC) [Entitic vol]96 fL80 - 531TZ-Fmfdplljpfvnch-Iecfloe Work Phone: [phone] (Bld) [#/Vol]325 10*3/uL150 - 450 DH-Enxkeqzbauxkzd-Tsadsov Work Phone: [phone] (Bld) [#/Vol]4.01 {x10E12/L}See Below QF-Tfidxjaevzrezd-Hcaqgqn Work Phone: [phone] on above:Reference Range: 4.00 - 5.20WBC (Bld) [#/Vol]8.6 10*3/uL4.4 - 11.2JW-Mmoxcsvnbygnht-Hhxsslg Work Phone: [phone] Panel Informationon 03-13-2021>60>60 VI-Xuhuqxmdtygqjz-Tvhczjw Work Phone: [phone] on above:CALCULATIONS OF ESTIMATED GFR ARE PERFORMED USING THE MDRD STUDY EQUATION FOR THE IDMS-TRACEABLE CREATININE METHODS. CLIN CHEM 2007;53:766-720.0 {/100_WBC}0.0-0.8PD-Szhxgkinipetwa-Sqhujmg Work Phone: [email or web address]?Patien uTX=[id number]&Da te=04-11-2021&Time=10%3a52%3a43%3a00&TestType=ECG&Site=1&OutputType=PDF&Ext=PDF ZI-Dsxaoerjlmloky-Cltrskk Work Phone: [phone] sinus xkmxehYH-Hrifwdhfsoians-Mshdhtf Work Phone: [phone]-Mnlyewuqmydscp-Nishant Work Phone: [phone] 6NE-Kwiznawfnhunpi-Njwidzf Work Phone: [phone] 8YB-Odxgnvkwesktqx-Rceuzqn Work Phone: [phone] 6VC-Xwymnjpgzilfns-Dvzynnk Work Phone: [phone] 9GU-Udwebsrauwcuez-Nqpbzix Work Phone: [phone] 1NU-Pftfleizauehvf-Ftdtzfb Work Phone: [phone] 2YH-Zdmcpdawgrdrzk-Gmyjsxh Work Phone: [phone] 2IC-Heqsqfholokcdr-Ycmguqw Work Phone: [phone] 5SG-Yiwytxharnhtlt-Djoowpv Work Phone: [phone] 4JM-Rjxcqrignooaqg-Cazkwff Work Phone: [phone] 9VU-Kqxvjjbeqxtwuo-Kwfewjk Work Phone: [phone] 2IY-Jidhremkiaklaw-Cewujmw Work Phone: [phone] 8BO-Ctkhovmxrszzkr-Hkmmiow Work Phone: [phone] 0FC-Hrqrlmhjcqepzy-Rjmrvcd Work Phone: [phone] 7AD-Muqxktczwtxiuz-Bectyua Work Phone: [phone] Chest without Contraston 07-65-3652IN Chest WO jnffjakyTvkslkCG-Slhuajfcooutjx-Pozduqgy Work Phone: [phone] Screening.on 20-50-3127Kptj risk assessmenta) No falls within the last gxuoWR-Yaesgutvhcigaz-Zztpbvwx Work Phone: [phone] use status CPHSb) TjQL-Amzaxvcdlmpkaj-Stpaeriw Work Phone: [phone] Screening.on 00-91-7324Qggz risk assessmentc) Not medically nuigsfffsUX-Zxfvnzsgkvjcmr-Ogivczry Work Phone: [phone] use status CPb) DvHJ-Bondsjgnwlbujd-Fvstlsrl Work Phone: Vital Signs Date TimeVital SignValuePerforming KgiilybltCxvmvlvx24-16-5874 09:17-0400Body .1 cmZulma SINGH Work Phone: [facility]OP[facility] SystemsRslnfpjlzv68-15-9452 09:17-0400Body mass index (BMI) [Ratio]43.97 kg/t8VsuzqZulma SINGH Work Phone: [phone] Memorial Health SystemsHttmkazbmd48-79-0791 09:17-0400Body mfowxv435.84 kgZulma SINGH Work Phone: [facility]OP[facility] SystemsHmvetkxwyq73-76-7524 09:17-0400Diastolic blood qvedllnz35 mm[Hg]Zulma SINGH Work Phone: [phone] GamingPemiscot Memorial Health SystemsYnrkgvoouz50-16-7384 09:17-0400Heart rate76 /min Zulma Hemmer PA Work Phone: [facility] CenterKgxxxgjdgh57-73-4639 09:17-0400Respiratory rate16 /minZulma Mahoneymer PA Work Phone: [facility] CenterXhtjcjonpi54-32-1140 09:17-0884GfA6% (BldA) [Mass fraction]96 %Zulma Mahoneymer PA Work Phone: [phone]-[facility] CenterNntvqfveke75-69-9376 09:17-0400Systolic blood cdntjvdi085 mm[Hg]Zulma Mahoneymer PA Work Phone: [phone]09-03-2025 13:07-0400Body frrocv965.81 cmDajoiel Hilton II Work Phone: [phone])[address]09-03-2025 13:07-0400 Body mass index (BMI) [Ratio]46.3 kg/s0Dzmksy Hilton II Work Phone: 1(965)[address] [place], [place] 2231509-03-2025 13:07-0400 Body .95 kgDaniel Hilton II Work Phone: [phone])[address] [place], [place] 2231509-03-2025 13:07-0400 Diastolic blood uzxemlkp55 mm[Hg]Bello Hilton II Work Phone: 1(576)[address] [place], [place] 2231509-03-2025 13:07-0400 Heart rate85 /minDaniel Hilton II Work Phone: 1(743)[address] [place], [place] 2231509-03-2025 13:07-0400 Respiratory rate20 /minDaniel Hilton II Work Phone: 1(597)[address] [place], [place] 2231509-03-2025 13:07-0400 SaO2% (BldA) [Mass fraction]96 %Bello Hilton II Work Phone: 1(042)[address] [place], [place] 2231509-03-2025 13:07-0400 Systolic blood mm[Hg]Bello Hilton II Work Phone: 1(002)[address] [place], [place] 2231508-14-2025 09:32-0400 Body rsuxwe557.56 cmDaniel Hilton II Work Phone: [phone])[address]08-14-2025 09:32-0400 Body mass index (BMI) [Ratio]48.4 kg/p0Cfdrda Hilton II Work Phone: [phone])[address]08-14-2025 09:32-0400 Body xhrkog772.91 kgDaniel Hilton II Work Phone: [phone])[address]08-14-2025 09:32-0400 Diastolic blood ywgvtiqf03 mm[Hg]Bello Hilton II Work Phone: 1(022)74027 [address]08-14-2025 09:32-0400 Heart rate84 /minDaniel Hilton II Work Phone: 1(822)[address] [place], [place] 2231508-14-2025 09:32-0400 Respiratory rate18 /minDaniel Hilton II Work Phone: 1(275)[address] [place], [place] 2231508-14-2025 09:32-0400 SaO2% (BldA) [Mass fraction]93 %Bello Hilton II Work Phone: 1(672)[address] [place], [place] 2231508-14-2025 09:32-0400 Systolic blood abbiathq784 mm[Hg]Bello Hilton II Work Phone: [phone])[address]07-09-2025 13:40-0400 Body myukhq813.81 cmDaniel Hilton II Work Phone: 1(744)[address] [place], [place] 2231507-09-2025 13:40-0400 Body mass index (BMI) [Ratio]46.8 kg/z3Lgmhdt Hilton II Work Phone: [phone])[address]07-09-2025 13:40-0400 Body jzrgoe953.2 kgDaniel Hilton II Work Phone: 1(254)[address] [place], [place] 2231507-09-2025 13:40-0400 Diastolic blood mm[Hg]Bello Hilton II Work Phone: [phone])[address]07-09-2025 13:40-0400 Heart rate82 /minDaniel Hilton II Work Phone: 1(977)[address]07-09-2025 13:40-0400 Respiratory rate20 /minDaniel Hilton II Work Phone: 1(947)[address]07-09-2025 13:40-0400 SaO2% (BldA) [Mass fraction]96 %Bello Hilton II Work Phone: 1(832)006-[address] [place], [place] 9976007-09-2025 13:40-0400 Systolic blood angmklnn334 mm[Hg]Bello Hilton II Work Phone: 1(533)19127 [address]05-21-2025 14:26-0400 Body iirksj994.91 cmDaniel Hilton II Work Phone: [phone])[address]05-21-2025 14:26-0400 Body mass index (BMI) [Ratio]46.8 kg/a0Odwnpn Hilton II Work Phone: 1(058)[address] [place], [place] 2231505-21-2025 14:26-0400 Body zejmbn227.25 kgDaniel Hilton II Work Phone: 1(829)[address]05-21-2025 14:26-0400 Diastolic blood vbujtdxc11 mm[Hg]Bello Hilton II Work Phone: 1(468)67[address]05-21-2025 14:26-0400 Heart rate80 /minDaniel Hilton II Work Phone: 1(004)[address]05-21-2025 14:26-0400 Respiratory rate20 /minDaniel Hilton II Work Phone: 1(742)365[address]05-21-2025 14:26-0400 SaO2% (BldA) [Mass fraction]96 %Bello Hilton II Work Phone: 1(713)[address]05-21-2025 14:26-0400 Systolic blood tlwetbwk578 mm[Hg]Bello Hilton II Work Phone: 1(315)[address]05-20-2025 10:30-0400 Body cjunhc820.1 cmSherri Cora HR SPECIALIST Work Phone: [facility] CenterBswovxxunz74-49-7587 10:30-0400Body mass index (BMI) [Ratio]44.6 kg/t8QzwgvvCristina Woodardvely HR SPECIALIST Work Phone: [facility] CenterLvuglhefqx86-28-0691 10:30-0400Body oejvsx179.56 kgCristina Woodardvely HR SPECIALIST Work Phone: [facility] CenterAeqkwavpqw44-19-2472 10:30-0400Diastolic blood ofbgtfkz36 mm[Hg]Cristina Hubbard HR SPECIALIST Work Phone: [facility] CenterSngcwfyzhi09-75-6483 10:30-0400Heart rate80 /min Cristina Hubbard HR SPECIALIST Work Phone: [facility] CenterLyxdobdynw79-82-4061 10:30-9865OtX9% (BldA) [Mass fraction]95 %Cristina Hubbard HR SPECIALIST Work Phone: [facility] CenterQdvvirrods66-57-3244 10:30-0400Systolic blood jhhvpusw600 mm[Hg]Cristina Hubbard HR SPECIALIST Work Phone: [facility] CenterIefmlmtjzs65-37-6666 13:36-0400Body qhsnuu707.1 cmKarmaricarmen Hemmer PA Work Phone: [facility] CenterTjewobiciq26-50-3576 13:36-0400Body mass index (BMI) [Ratio]44.73 kg/m0Dytne Hemmer PA Work Phone: [facility] CenterOlgbgpdmry40-59-9553 13:36-0400Body drugvr479.93 kgKaren Hemmer PA Work Phone: [facility] CenterRqpinyvxtk57-90-8031 13:36-0400Diastolic blood mm[Hg]Zulma Hemmer PA Work Phone: [facility] CenterCnipasexwv25-19-5411 13:36-0400Heart rate81 /min Zulma Hemmer PA Work Phone: [facility]OP[facility] SystemsEyvxjyxcdf20-24-4824 13:36-0400Respiratory rate16 /minKaren Hemmer PA Work Phone: [facility] CenterCiasnzxmgg49-50-1972 13:36-6469ClE6% (BldA) [Mass fraction]95 %Zulma SINGH Work Phone: [facility] CenterLqiyzizxnm75-89-4311 13:36-0400Systolic blood xvdtberk551 mm[Hg]Zulma SINGH Work Phone: [facility] CenterDiulwfrcxe99-95-0635 09:44-0400Body .5 John Saldana MD Work Phone: [phone])[address]03-20-2025 09:44-0400 Body mass index (BMI) [Ratio]44.27 kg/m2UeznvDominic Saldana MD Work Phone: 1216)[address] [place], [place] 5971603-20-2025 09:44-0400 Body eljhkttsyyi87.5 [degF]Dominic Saldana MD Work Phone: [phone])[address] [place], [place] 5971603-20-2025 09:44-0400 Body cmealz660.75 kgDominic Saldana MD Work Phone: 1(216)[address] [place], [place] 5971603-20-2025 09:44-0400 Diastolic blood igqshllc84 mm[Hg]Dominic Saldana MD Work Phone: 1(216)[address] [place], [place] 5971603-20-2025 09:44-0400 Systolic blood mm[Hg]Dominic Saldana MD Work Phone: [address] [place], [place] 5971603-05-2025 14:06-0500 Diastolic blood iwbhrcdk71 mm[Hg]Bello Hilton II Work Phone: 1(017)118-[address] [place], [place] 0604003-05-2025 14:06-0500 Heart rate77 /Iva Hilton II Work Phone: [facility]03-05-2025 14:06-0500 Respiratory rate18 /Iva Hilton II Work Phone: 1(234)919-[address] [place], [place] 0604003-05-2025 14:06-0500 SaO2% (BldA) [Mass fraction]95 %Bello Hilton II Work Phone: [facility]03-05-2025 14:06-0500 Systolic blood mm[Hg]Bello Yobani ALMENDAREZ Work Phone: [facility]12-10-2024 08:36-0500 Body mbjojj817.6 John Saldana MD Work Phone: [facility]12-10-2024 08:36-0500 Body mass index (BMI) [Ratio]45.49 kg/z3TsukwDominic Saldana MD Work Phone: 1(216)[address]12-10-2024 08:36-0500 Body rsywqjinsdo14.9 [degF]Dominic Saldana MD Work Phone: 1(216)525-[address] [place], [place] 7903512-10-2024 08:36-0500 Body vcybcs891.2 kgDominic Saldana MD Work Phone: 1()[phone] [place], [place] 7903512-10-2024 08:36-0500 Diastolic blood rybsdxpb89 mm[Hg]Dominic Saldana MD Work Phone: 1()[phone]12-10-2024 08:36-0500 Heart rate77 /minDominic Saldana MD Work Phone: [phone]()[phone]12-10-2024 08:36-0500 Systolic blood stfoykce630 mm[Hg]Dominic Saldana MD Work Phone: [facility]10-22-2024 13:25-0400 Body ypmrqe748.6 Kavita Murphy MD Work Phone: [facility]10-22-2024 13:25-0400 Body mass index (BMI) [Ratio]44.11 kg/n2FefddtRonnie Murphy MD Work Phone: [facility]10-22-2024 13:25-0400 Body izhqps397.57 kgRonnie Murphy MD Work Phone: [facility]10-15-2024 08:57-0400 Body .1 Rafa Hubbard HR SPECIALIST Work Phone: [facility] CenterYebtanihaj74-68-9632 08:57-0400Body mass index (BMI) [Ratio]43.93 kg/u3OwshnaCristina Hubbard HR SPECIALIST Work Phone: [facility] CenterRxbvrcqnux63-41-9145 08:57-0400Body pqcjuf503.75 kgCristina Hubbard HR SPECIALIST Work Phone: [phone] [place], [place] [address]Qvlpqrvvjd75-83-6814 08:57-0400Diastolic blood qcodvuzg74 mm[Hg]Cristina Hubbard HR SPECIALIST Work Phone: 1(867)[facility] [place], [place] [address]Ewermyifqb34-73-8967 08:57-0400Heart rate81 /min Cristina Hubbard HR SPECIALIST Work Phone: 1(664)[facility]-9534[facility] CenterDfspeejqxf60-26-8123 08:57-3367YrL8% (BldA) [Mass fraction]95 %Cristina Hubbard HR SPECIALIST Work Phone: [facility] CenterOnawlclwob39-29-0678 08:57-0400Systolic blood gibxtmnk615 mm[Hg]Cristina Hubbard HR SPECIALIST Work Phone: 1(222)[facility]-[address] [place], [place] [address]Hfmrgjjdlr02-28-7987 11:22-0400Body nvhcut084.08 cmII Bello Hilton Work Phone: 1(508)[address]08-20-2024 11:22-0400 Body mass index (BMI) [Ratio]43.5 kg/m2II Bello Hilton Work Phone: 1(812)478-[address] [place], [place] 9976008-20-2024 11:22-0400 Body aonhqt284.22 kgII Belol Hilton Work Phone: 1(767)[address]08-20-2024 11:22-0400 Diastolic blood yovzkmlf88 mm[Hg]II Bello Hilton Work Phone: 1(060)156[address]08-20-2024 11:22-0400 Heart rate79 /minII Bello Hilton Work Phone: 1(356)434-[address] [place], [place] 9976008-20-2024 11:22-0400 Respiratory rate18 /minII Bello Hilton Work Phone: 1(843)[address]08-20-2024 11:22-0400 SaO2% (BldA) [Mass fraction]96 %II Bello Hilton Work Phone: 1(596)[address]27 [address]08-20-2024 11:22-0400 Systolic blood uimaaovk034 mm[Hg]II Bello Hilton Work Phone: 1(085)[address]06-19-2024 11:10-0400 Body mbibeo767.08 cmII Bello Hilton Work Phone: 1(758)[address]06-19-2024 11:10-0400 Body mass index (BMI) [Ratio]43.3 kg/m2II Bello Hilton Work Phone: 1(780)155[address]06-19-2024 11:10-0400 Body .62 kgII Bello Hilton Work Phone: 1(513)[address]06-19-2024 11:10-0400 Diastolic blood fnwbveyr82 mm[Hg]II Bello Hilton Work Phone: 1(879)50427 [address]06-19-2024 11:10-0400 Heart rate76 /minII Bello Hilton Work Phone: 1(015)269[address]06-19-2024 11:10-0400 Respiratory rate18 /minII Bello Hilton Work Phone: 1(962)40627 [address]06-19-2024 11:10-0400 SaO2% (BldA) [Mass fraction]97 %II Bello Hilton Work Phone: 1(737)[address]227 [address]06-19-2024 11:10-0400 Systolic blood huoaytud528 mm[Hg]II Bello Hilton Work Phone: 1(242)[address]06-05-2024 10:09-0400 Body .08 cmII Bello Hilton Work Phone: 1(200)[address]06-05-2024 10:09-0400 Body mass index (BMI) [Ratio]42.8 kg/m2II Bello Hilton Work Phone: 1(403)448-[address] [place], [place] 9976006-05-2024 10:09-0400 Body udwlhrkwfur31.6 [degF]II Bello Hilton Work Phone: 1(620)[address]06-05-2024 10:09-0400 Body biayge013.32 kgII Bello Hilton Work Phone: 1(606)705-[address] [place], [place] 9976006-05-2024 10:09-0400 Diastolic blood uzokyhgs38 mm[Hg]II Bello Hilton Work Phone: 1(282)[address]06-05-2024 10:09-0400 Heart rate90 /minII Bello Hilton Work Phone: 1(168)[address]06-05-2024 10:09-0400 Respiratory rate18 /minII Bello Hilton Work Phone: 1(181)32127 [address]06-05-2024 10:09-0400 SaO2% (BldA) [Mass fraction]96 %II Bello Hilton Work Phone: 1(901)[address]227 [address]06-05-2024 10:09-0400 Systolic blood lojqtzmj439 mm[Hg]II Bello Hilton Work Phone: 1(033)70927 [address]04-09-2024 11:20-0400 Body .1 cmII Bello Hilton Work Phone: 1(410)669-[address] [place], [place] 9976004-09-2024 11:20-0400 Body mass index (BMI) [Ratio]43.2 kg/m2II Bello Hilton Work Phone: 1(756)[address]127 [address]04-09-2024 11:20-0400 Body rexdgb408.67 kgII Bello Hilton Work Phone: 1(762)[address]04-09-2024 11:20-0400 Diastolic blood mm[Hg]II Bello Hilton Work Phone: 1(528)71127 [address]04-09-2024 11:20-0400 Heart rate73 /minII Bello Hilton Work Phone: 1(241)281-[address] [place], [place] 9976004-09-2024 11:20-0400 Respiratory rate18 /minII Bello Hilton Work Phone: 1(173)304-[address] [place], [place] 9976004-09-2024 11:20-0400 SaO2% (BldA) [Mass fraction]96 %II Bello Hilton Work Phone: 1(649)106-[address] [place], [place] 9976004-09-2024 11:20-0400 Systolic blood mlvehdco353 mm[Hg]II Bello Hilton Work Phone: 1(803)549-[address] [place], [place] 9976004-06-2024 11:30-0400 Diastolic blood gwctqrcu20 mm[Hg]II Bello Hilton Work Phone: 1(437)60927 [address]04-06-2024 11:30-0400 Heart rate76 /minII Bello Hilton Work Phone: 1(615)229-[address] [place], [place] 9976004-06-2024 11:30-0400 Respiratory rate18 /minII Bello Hilton Work Phone: 1(878)117-[address] [place], [place] 9976004-06-2024 11:30-0400 SaO2% (BldA) [Mass fraction]95 %II Bello Hilton Work Phone: 1(732)368-[address] [place], [place] 9976004-06-2024 11:30-0400 Systolic blood jwpyzsce333 mm[Hg]II Bello Hilton Work Phone: 1(171)004-[address] [place], [place] 9976004-06-2024 10:34-0400 Body onftnj149.37 cmII Bello Hilton Work Phone: 1(914)326-[address] [place], [place] 9976004-06-2024 10:34-0400 Body ksxeqb555 kgII Bello Hilton Work Phone: 1(387)057-[address] [place], [place] 9976004-06-2024 10:33-0400 Body aphomfkuoea67.6 [degF]II Bello Hilton Work Phone: 1(591)422-[address] [place], [place] 9976003-05-2024 11:09-0500 Body .1 cmII Bello Hilton Work Phone: [facility]03-05-2024 11:09-0500 Body mass index (BMI) [Ratio]41.3 kg/m2II Bello Hilton Work Phone: [facility]03-05-2024 11:09-0500 Body rizfjj265.71 kgII Bello Hilton Work Phone: [facility]02-06-2024 10:30-0500 Body ayhzcd210.1 cmDeelli Schroederly Other [employer] Other 02-06-2024 10:30-0500Body mass index (BMI) [Ratio] 41.71 kg/u7Ijufoqoelli Schroederly Other [employer] Other 02-06-2024 10:30-0500Body bblply335.72 kgDeelli Dexter Other [employer] Other 02-06-2024 10:30-0500Diastolic blood mm[Hg] Lilliam Scally Other [employer] Other 02-06-2024 10:30-0500Respiratory rate18 /minDeborah Scally Other [employer] Other 02-06-2024 10:30-4394OlD7% (BldA) [Mass fraction]97 % Lilliam Scally Other [employer] Other 02-06-2024 10:30-0500Systolic blood ncpsqmxy066 mm[Hg] Lilliam Scally Other [employer] Other 02-02-2024 08:24-0500Diastolic blood bejajijt40 mm[Hg] Emiliano Lagos [phone]-NksovW[facility] [place] 06-03-2023 08:24-0500Heart rate91 /Domenica Yolis [phone]-VmyvlWright-[facility] [place] 06-03-2023 08:24-0500Systolic blood tghwndji610 mm[Hg]Emiliano Lagos [phone]-SfipfWright-Pat[facility] [place] 02-22-2023 14:36-0400Body lkhsip292.8 Kavita Murphy MD Work Phone: [facility]10-24-2023 14:36-0400 Body mass index (BMI) [Ratio]43.09 kg/w9TaxahhRonnie Murphy MD Work Phone: [facility]10-24-2023 14:36-0400 Body yoqrxa902.67 kgRonnie Murphy MD Work Phone: [facility]10-17-2023 13:00-0400 Body yqfbyp626.1 cmDawn Fitt Other [facility] [employer] Other 10-17-2023 13:00-0400Body mass index (BMI) [Ratio] 42.16 kg/m2Dawn Fitt Other [facility] [employer] Other 10-17-2023 13:00-0400Body rhienz531.94 kgDawn Fitt Other [employer] Other 10-03-2023 10:15-0400Body peqysu201.1 [facility] [employer] Other [facility] [employer] Other 10-03-2023 10:15-0400Body mass index (BMI) [Ratio]42.2 kg/s4Gvqkwqf [employer] Other [employer] Other 10-03-2023 10:15-0400Body gbucic564.03 kgDeborah Scally Other [employer] Other 10-03-2023 10:15-0400Diastolic blood lhzfamog27 mm[Hg] Lilliam Scally Other [employer] Other 10-03-2023 10:15-0400Respiratory rate20 /minDeborah Scally Other [employer] Other 10-03-2023 10:15-2695VjU3% (BldA) [Mass fraction]96 % Lilliam Scally Other [employer] Other 10-03-2023 10:15-0400Systolic blood jxorzdsw310 mm[Hg] Lilliam Scally Other [employer] Other 08-23-2023 13:00-0400Body .1 cmDawn Fitt Other [employer] Other 08-23-2023 13:00-0400Body mass index (BMI) [Ratio] 41.73 kg/m2Dawn Fitt Other [employer] Other 08-23-2023 13:00-0400Body uiuhru869.76 kgDawn Fitt Other [employer] Other 06-20-2023 10:15-0400Body .1 cmDeborah Scally Other [employer] Other 06-20-2023 10:15-0400Body mass index (BMI) [Ratio] 41.41 kg/k5Jsymcex Scally Other [employer] Other 06-20-2023 10:15-0400Body zraeyg472.9 kgDeborah Scally Other [employer] Other 06-20-2023 10:15-0400Diastolic blood vdyqugye94 mm[Hg] Lilliam Scally Other [employer] Other 06-20-2023 10:15-0400Respiratory rate18 /minDeborah Scally Other [employer] Other 06-20-2023 10:15-7426ElM5% (BldA) [Mass fraction]96 % Lilliam Scally Other [employer]apps Other 06-20-2023 10:15-0400Systolic blood mm[Hg] Lilliam Scally Other nodoubleTwist Other 06-20-2023 08:15-0400Body pquidy633.1 cmDawn Fitt Other [employer]Twist Other 03-28-2023 10:45-0400Body lhoujj242.1 cmDeborah Scally Other [employer]Twist Other 03-28-2023 10:45-0400Body mass index (BMI) [Ratio] 41.08 kg/d6Hfubixv Scally Other [employer] Other 03-28-2023 10:45-0400Body ynsrxa138.99 kgDeborjolly Schroederly Other [facility] Other 03-28-2023 10:45-0400Diastolic blood owxznzdb25 mm[Hg] Lilliam Scally Other [employer] Other 03-28-2023 10:45-0400Respiratory rate20 /minDeborah Scally Other [facility] [employer] Other 03-28-2023 10:45-1749MjA4% (BldA) [Mass fraction]97 % Lilliam Scally Other [facility] Other 03-28-2023 10:45-0400Systolic blood luyfopwo761 mm[Hg] Lilliam Scally Other [facility] [employer] Other 02-14-2023 09:15-0500Body yvibmc228.1 cmDawn Fitt Other [facility] [employer] Other 01-31-2023 13:03-0500Body jeewuv353.83 cmGopi Solis MD Work Phone: mp-[facility] 250 DO Work Phone: [phone] 13:03-0500Body mass index (BMI) [Ratio]43.6 kg/v7PqfodffGopi Solis MD Work Phone: mp-[facility] 250 DO Work Phone: [phone] 13:03-0500Body surface area Derived from formula2.19 z1TsxfftgGopi Solis MD Work Phone: [facility] 250 DO Work Phone: [phone] 13:03-0500Body toespm816.03 kgGopi Solis MD Work Phone: [phone]-JvygyNorth Shore Health 250 DO Work Phone: [phone] 13:03-0500Diastolic blood gxwejubq57 mm[Hg] Gopi Solis MD Work Phone: [phone]-UxiytNorth Shore Health 250 DO Work Phone: [phone] 13:03-0500Heart rate76 /minGopi Solis MD Work Phone: [phone]-AggobNorth Shore Health 250 DO Work Phone: [phone] 13:03-0500Systolic blood djwharjv007 mm[Hg] Gopi Solis MD Work Phone: [phone]-FymztNorth Shore Health 250 DO Work Phone: [phone] 12:30-0500Body gkqbmi359.1 cmDeelli Dexter Other [employer] Other 01-31-2023 12:30-0500Body mass index (BMI) [Ratio] 42.85 kg/z2AuixhvlLilliam Dexter Other [employer] Other 01-31-2023 12:30-0500Body zmothn702.8 kgDeelli Dexter Other [employer]Twist Other 01-31-2023 12:30-0500Diastolic blood fdyeoyjy90 mm[Hg] Lilliam Dexter Other [employer]ist Other 01-31-2023 12:30-0500Respiratory rate20 /minDeboracarlos Dexter Other [facility] [employer] Other 01-31-2023 12:30-4138NoI6% (BldA) [Mass fraction]97 % Lilliam Dexter Other [facility] [employer] Other 01-31-2023 12:30-0500Systolic blood vjycxqce529 mm[Hg] Lilliam Dexter Other [facility] [employer] Other 10-11-2022 15:01-0400Body .56 Kavita Murphy MD Work Phone: [phone]-Badxnxvjvbequb-[employer] Work Phone: [phone] 15:01-0400Body mass index (BMI) [Ratio] 46.35 kg/v9TmbhqvRonnie Murphy MD Work Phone: [phone]-Ielazqwiwbgnna-[employer] Work Phone: 1([phone] 463-211710-11-2022 15:01-0400Body surface area Derived from formula2.22 f1YgacbqRonnie Murphy MD Work Phone: [phone]-Dlkntfwzaasicd-[employer] Work Phone: [phone] 15:01-0400Body .47 kgRonnie Murphy MD Work Phone: [phone]-Noiafybviwdxxr-[employer] Work Phone: 1([phone] 167-237711-30-2021 15:33-0500Body .56 Kavita Murphy MD Work Phone: YG-Jmhyumhaghdqlw-[employer] Work Phone: 1([phone] 15:33-0500Body mass index (BMI) [Ratio] 46.52 kg/n0EvhxgpRonnie Murphy MD Work Phone: [phone]-Spvizbcfndtswe-[employer] Work Phone: 1([phone]) 171-606811-30-2021 15:33-0500Body surface area Derived from formula2.23 f5QvbtdwRonnie Murphy MD Work Phone: [phone]-Reeqyiiriezeod-[employer] Work Phone: 1([phone]) 580-123111-30-2021 15:33-0500Body irfuebshvdj78.2 [degF]Ronnie Murphy MD Work Phone: [phone]-Hvxrmnlxfpvefs-[facility] Work Phone: 1(573) [phone] 15:33-0500Body owgxlz176.93 kgRonnie Murphy MD Work Phone: [phone]-Ejycztumrgrlbm-Christ Work Phone: 1([phone] 12:52-0400Body clvhin781.56 Kavita Murphy MD Work Phone: [phone]-Ewhpwzyljnakfa-[facility] Work Phone: 1(792) 924-908711-02-2021 12:52-0400Body mass index (BMI) [Ratio] 46.35 kg/q8PnadufRonnie Murphy MD Work Phone: [phone]-Qilwtvwzxrdorh-[facility] Work Phone: 1([phone] 310-922611-02-2021 12:52-0400Body surface area Derived from formula2.22 Ramakrishna Murphy MD Work Phone: [phone]-Hzfvxnqhzixesj-[employer] Work Phone: 1([phone] 390-973911-02-2021 12:52-0400Body .47 kgRonnie Murphy MD Work Phone: [phone]-Gtyzvfwfuhegqa-[facility] Work Phone: 1([phone] 369-621510-12-2021 15:05-0400Body kvxdir653.56 Kavita Murphy MD Work Phone: [phone]-Smymrxkkhrgdkd-[employer] Work Phone: [phone] 15:05-0400Body mass index (BMI) [Ratio]46 kg/z1KhnngoRonnie Murphy MD Work Phone: mg521-4523LQ-CjiclubvdsbppuBuzzDoes Work Phone: 1(638) [phone] 15:05-0400Body surface area Derived from formula2.22 r8FjtrcpRonnie Murphy MD Work Phone: mg034-8727CS-ApuwrdjqjtfqhcBuzzDoes Work Phone: 1(710) 950-314910-12-2021 15:05-0400Body zzdzlimvxpj87.4 [degF]Ronnie Murphy MD Work Phone: mg873-8926HX-AfxyspdzdbnafnBuzzDoes Work Phone: 1([phone] 15:05-0400Body yruhmr841.56 kgRonnie Murphy MD Work Phone: [phone]-YirhavxztpfeyuBuzzDoes Work Phone: Encounters Encounter DateEncounter TypeCare ProviderFacilityStart: 02-26-2025 End: 85-29-9830vclgtdhfxwHmvjnnl TannFacility:[facility] Start: 02-07-2025 End: 78-64-1490Edqmpu Jay Jay SINGH Work Phone: NOEX [facility] MedinceStart: 02-07-2025 End: 10-74-9062Vycjbivargas SINGH Work Phone: NOSB [facility] MedinceStart: 02-07-2025 End: 12-44-0636Mimhlob encounter Augusta SINGH Work Phone: NOMS [facility] Mead MedinceComment on above:Medicare annual wellness visit, subsequent (Primary Dx); ACP [...] Morbid obesity with BMI of 40.0-44.9, adult ([facility]); Thyrotoxicosis without thyroid storm, unspecified thyrotoxicosis type; Vitamin D deficiency; Allergic rhinitis due to pollen, unspecified seasonality; Anxiety and depression; Screening for malignant neoplasm of colon; Bipolar 1 disorder, depressed, partial remission (HCC); Estrogen deficiency; History of basal cell carcinoma; Lipoprotein deficiency disorder; Mixed hyperlipidemiaStart: 02-07-2025 End: 53-61-6196eeahiczlszWTDBJ M HEMMERNot AvailableStart: 02-02-2025 End: 59-82-6129Rfseaasif Result EncounterBello Hilton MD Work Phone: noms External Department UnsolicitedStart: 02-02-2025 End: 93-05-3515Hrshrgkdp Result EncounterBello Hilton MD Work Phone: noms External Department UnsolicitedStart: 01-02-2025 End: 04-55-2073hdcetvthzfYrwoxx Hilton II Work Phone: [facility] Work Phone: Start: 01-02-2025 End: 62-65-1251Hoplayy encounter procedureLilliam Dexter [facility] Work Phone: Start: 12-19-2024 End: 66-22-6737fuxxctpcgfAnpusy Hilton II Work Phone: [facility] Work Phone: Start: 12-19-2024 End: 61-23-1183Odjober encounter procedureMaricel ValenciaZuni Hospital Work Phone: Start: 12-13-2024 End: 97-38-8586kgkkyfwwiwOpekok Hilton II Work Phone: [facility] Work Phone: Start: 12-13-2024 End: 00-78-4652Sxcidbo encounter procedureCaryl Meléndez MD-[facility] Work Phone: Start: 11-07-2024 End: 12-29-7296xoimikormtQbyymf Berry II Work Phone: [facility] Work Phone: Start: 11-07-2024 End: 17-83-2380Zyapyih encounter procedureBrianelli Dexter [facility] Work Phone: Start: 10-09-2024 End: 54-20-4374Hxkhnddvs encounterDakenisha Hilton MD Work Phone: NOMS CI FMComment on above:Med RefillStart: 10-09-2024 ambulatoryBen WassermanFacility:[facility]Kit[facility] Hospitaltart: 31-45-6694Ltmklthbnr RecurringBen Wasserman MDOTHELLO [facility] CredibleStart: 10-02-2024 End: 81-26-6593Ayghsrnru Result EncounterGeneric External Data ProviderNOMS External Department UnsolicitedStart: 10-02-2024 End: 99-29-8942Bxloiianp Result EncounterGeneric External Data ProviderNOMS External Department UnsolicitedStart: 09-19-2024 End: 74-24-1806Wjykgce encounter procedureLilliam Dexter [facility] Work Phone: Start: 09-18-2024 End: 41-25-2536Xuvagg outpatient visit 25 minutesShgerhard Hubbard HR SPECIALIST Work Phone: NOMS CI FMComment on above:BiPAP (biphasic positive airway pressure) dependence (Primary Dx)Start: 09-18-2024 End: 73-82-0238yhusakhmedXCTCXA M SHIVELYNot AvailableStart: 09-03-2024 End: 07-97-9716Sxcacm flowsLupe SINGH Work Phone: NOM[facility] CI FMStart: 09-03-2024 End: 63-42-5057Dplndf flowsheetZulma SINGH Work Phone: NOM[facility] CI FMStart: 09-03-2024 End: 56-58-3766Omsjsw outpatient visit 15 minutesZulma SINGH Work Phone: NOMS CI FMComment on above:Right ear impacted cerumen (Primary Dx); Dizziness; Other infective acute otitis externa of right earStart: 09-03-2024 End: 72-03-9270txtrnzjzxwDVDWG M HEMMERNot AvailableStart: 08-22-2024 End: 66-27-2271Kuvkwvhpmh hospital visit by physicianEl[facility] Hpoh7542k [address] StreetComment on above:Encounter for screening for cardiovascular disorders; Mixed hyperlipidemia; Type 2 diabetes mellitus without complications; Cardiomegaly; Other ill-defined heart diseasesStart: 08-22-2024 End: 58-12-1478ejiaiyxlukYEMBBTMercy Health Lorain Hospitaltart: 07-19-2024 End: 73-96-8088Saolhk outpatient visit 25 minutesDominic Saldana MD Work Phone: [facility] [place]Comment on above: Hypothyroidism, unspecified type (Primary Dx); Class 3 severe obesity with serious comorbidity and body mass index (BMI) of 40.0 to 44.9 in adult,unspecified obesity type; Adrenal nodule; Type 2 diabetes mellitus without complication, without long-term current use of insulin (Multi)Start: 07-19-2024 End: 29-71-0393yudkxvukuoUWOHLMiller County Hospital AmbulatoryStart: 07-04-2024 End: 77-79-2582eimlqbkgrwTpdhgh Berry II Work Phone: [facility] Work Phone: Start: 07-04-2024 End: 19-52-2072Qxpudrg encounter procedureBello Hilton II Work Phone: [facility] Work Phone: Start: 36-34-9794Bdbbxzwxhg Shilpa Hilton II Work Phone: [facility] CredibleStart: 05-31-2024 End: 64-54-6231Dpvtbaovp Result EncounterBello Hilton MD Work Phone: noms External Department UnsolicitedStart: 05-31-2024 End: 48-22-3379Hqqzqvkkc Result EncounterBello Hilton MD Work Phone: noms External Department UnsolicitedStart: 04-18-2024 End: 06-25-1251Mzqvzytcl Result EncounterGeneric External Data ProviderNOMS External Department UnsolicitedStart: 04-18-2024 End: 63-37-7506Sbybfkhsl Result EncounterGeneric External Data ProviderNOMS External Department UnsolicitedStart: 04-17-2024 End: 31-85-8060Ampjzpacs Result EncounterGeneric External Data ProviderNOMS External Department UnsolicitedStart: 04-17-2024 End: 91-64-7608Geivamkam Result EncounterGeneric External Data ProviderNOMS External Department UnsolicitedStart: 04-10-2024 End: 34-44-7605ttqhjyrhppFBOBHQ B BERRYMercy Healthtart: 04-10-2024 End: 83-48-1724npivitiaazHDAVNMiller County Hospital AmbulatoryStart: 04-10-2024 End: 61-58-4784Mbhvmg outpatient new 60 Ila Saldana MD Work Phone: [facility] [place]Comment on above:Adrenal nodule (Primary Dx); Hypothyroidism, unspecified type; Type 2 diabetes mellitus without complication, without long-term current use of insulin (Multi)Start: 03-05-2024 End: 59-21-8390Juyrjigzq encounterBello Hilton MD Work Phone: noms FMStart: 02-21-2024 End: 70-75-6830yfbotbwgubKDKIREMyMichigan Medical Center Alma AmbulatoryStart: 02-21-2024 End: 54-91-8751Vhxsab outpatient visit 15 minutesRonnie Murphy MD Work Phone: uh [facility] HospitalComment on above:Tracheal stenosis (Primary Dx); Gastroesophageal reflux disease without esophagitisStart: 02-14-2024 End: 15-41-9979Qxifxu flowsIzabella Hubbard HR SPECIALIST Work Phone: noMS CI FMStart: 02-14-2024 End: 03-16-8845Vlalvk flowsIzabella uHbbard HR SPECIALIST Work Phone: NOMS CI FMStart: 02-14-2024 End: 65-69-8356Byxmj of hemosiderin, quantCristina Hubbard HR SPECIALIST Work Phone: NOWF HealthcareStart: 02-14-2024 End: 04-29-7395Wiwkisr encounter procedureSchilo Hubbard HR SPECIALIST Work Phone: noms CI FMComment on above:Medicare annual wellness visit, subsequent (Primary Dx); Obstructive sleep apnea; [...] 2 diabetes mellitus with other specified complication (CMS/HCC)Start: 02-14-2024 End: 29-75-9172iemlfowluvFKGHQV M SHIVELYNot AvailableStart: 12-20-2023 End: 85-31-7965ealthbybjaKV Bello Hilton Work Phone: [facility] Work Phone: Start: 12-20-2023 End: 57-55-1207Xljndkw encounter procedureII Bello Yobani Work Phone: [facility] Physician [facility] Work Phone: Start: 00-51-0613Shsqhgnxdb RecurringII Bello Hilton Work Phone: [facility]- CredibleStart: 10-19-2023 End: 87-94-4660Tcmzblyt ReferredII Bello Hilton Work Phone: [facility] Work Phone: Start: 10-19-2023 End: 45-19-7083yrgfdyvxzyCL Bello Yobani Work Phone: [facility] Work Phone: Start: 10-19-2023 End: 84-18-7712Fzydldf encounter procedureII Bello Yobani Work Phone: [facility] Physician [facility] Work Phone: Start: 10-05-2023 End: 39-19-2628luemlpwetcRW Bello Hilton Work Phone: [facility] Work Phone: Start: 10-05-2023 End: 48-30-9004Kvwyhmf encounter procedureII Bello Yobani Work Phone: [facility] Work Phone: Start: 08-09-2023 End: 10-34-2131bptipviulnHG Bello Yobani Work Phone: [facility] Work Phone: Start: 08-09-2023 End: 24-00-3326Jcwhgeg encounter procedureII Bello Hilton Work Phone: [facility] Physician [facility] Work Phone: Start: 08-06-2023 End: 65-11-3910Rzvlgzuoo department patient visitII Bello Hilton Work Phone: [facility]-Emergency Room Work Phone: Start: 07-05-2023 End: 63-90-5995Uycuvpf encounter procedureII Bello Hilton Work Phone: [facility] Work Phone: Start: 72-82-1473Lbilkojeut RecurringII Bello Hilton Work Phone: [facility]- CredibleStart: 06-07-2023([facility]CWMNF/U) Weight Management f/uDeboraGrove Hill Memorial Hospital Coordinated Care ClinicStart: 06-07-2023 End: 81-87-2475sppiiminwzXhtoylo Scally Other nodoubleTwist Other Start: 96-72-5486Tuljufevjf RecurringII Bello Hilton Work Phone: [facility]-Weight Management Work Phone: Start: 06-03-2023 End: 20-85-3133svlxtpmtioGmob E. MouranyFacility:[facility] CentersantosDCtart: 06-03-2023 End: 02-58-9611Fvhipsb encounter procedureEmiliano Lagos [phone]-NwvlhW[facility] [place] Start: 05-25-2023 End: 76-18-8796mpaxizgijiFqfxyio Scally Other [employer]capps Other Start: 32-53-5367Pszekjszr encounterDeJohn E. Fogarty [facility] Coordinated Care ClinicStart: 93-41-2815aaxpjyhlhqSbdi Mourany Facility:[facility] VinelandueStart: 46-14-8194Igh-patient / Non-visitII Bello Hilton Work Phone: [facility] Professional [facility] Work Phone: Start: 77-65-8780Wmddeboow encounterBrianst. michaels medical centerjolly Ariasevergreenhealth Coordinated Care ClinicStart: 05-16-2023 End: 99-27-6617tszwcezeeeQF Daniel Hilton Work Phone: [employer] Other Start: 05-16-2023 End: 78-36-9686Ijyhrsup ReferredII Bello Hilton Work Phone: [facility]-LAB Path Spec [facility] HospStart: 89-50-1381Djy-patient / Non-visitII Bello Hilton Work Phone: [facility] GroupConfluence [facility] Work Phone: Start: 05-15-2023 End: 12-33-3318cfijlqpcriGQBOAK FAWWADFacility:CD:[id number]: 04-13-2023 End: 83-78-6163uvfgopyugyZedlywv Scally Other [facility] Predict[employer] Other Start: 72-68-3343Aolbgucvt encounterBradley Hospital Coordinated Care ClinicStart: 03-18-2023 End: 79-97-8297npttiaxzmuFwedgmz Scally Other [facility] Predict[employer] Other Start: 60-18-8255Rqrklceps encounterBradley Hospital Coordinated Care ClinicStart: 99-22-1784Hawhbpweaj RecurringII Bello Hilton Work Phone: [facility]-Weight Management Work Phone: Start: 02-22-2023 End: 24-90-3792Qodqzc outpatient visit 15 Anna Murphy MD Work Phone: uh [facility] HospitalComment on above:Tracheal stenosis (Primary Dx)Start: 02-15-2023([facility] RD FU) [facility] F/U Registerd Cpc Nikki [place] Coordinated Care ClinicStart: 02-15-2023 End: 68-05-7494inaydxhlaeXtnf Fitt Other [facility] Predictry Other Start: 02-01-2023([facility]ALLSWMNF/U) Weight Management f/u Lilliam ScallyFirelands Coordinated Care ClinicStart: 02-01-2023 End: 42-64-7866zjsqkdidkmSesdoyh Scally Other [facility] Predictry Other Start: 66-38-5037Xt RenewalCheryl Cox ELECTRICAL FITTER-PALLET RECTIFIER Work Phone: [phone]-Rultfgxbjeekhk-[facility] 4500 Work Phone: Start: 01-05-2023 End: 03-17-3444wwjyupsyofFuuopvq Scally Other [facility] Predict[employer] Other Start: 07-11-7005Ecyfzjrar encounterBradley Hospital Coordinated Care ClinicStart: 12-22-2022([facility] WMNI) N Initial ProviderDawblanca [facility] Coordinated Care ClinicStart: 12-22-2022 End: 22-08-0696heahrbnwhfRrie Fitt Other [facility] Predict[employer] Other Start: 10-19-2022([facility] FALLSWMNF/U) Weight Management f/u Lilliam ScallyFirelands Coordinated Care ClinicStart: 10-19-2022 End: 20-94-4868vjsqqfssikAsse Fitt Other nodoubleTwist Other Start: 38-05-8637GJS [employer] 2-10 30MDawn [facility] Coordinated Care ClinicStart: 09-02-2022 End: 19-99-5095xguppfynllEMDRLCZ SCALLYFacility:V0Ewkrq: 08-05-2022 End: 92-01-0740secvcncfzfTzmhdge Scally Other Startcapps Other Start: 90-12-1773Pypwvicbs encounterDest. michaels medical centerjolly [facility] Coordinated Care ClinicStart: 07-27-2022(FCCCWMNF/U) Weight Management f/uDeborah Arturo Coordinated Care ClinicStart: 07-27-2022 End: 39-41-9137fkiydsiipkNkipipg Scally Other nodoubleTwist Other Start: 06-29-2022 End: 52-55-2665iagvaqrybbKP DOCTOR MISCFacility:G8Cthns: 06-15-2022 End: 04-02-3908ntyvjieqpyBxqo Fitt Other [facility] Predictry Other Start: 29-21-7741ITL FOR [employer] 2-10 30MDawn [facility] Coordinated Care ClinicStart: 97-63-9340Yjclbg consultation new/estab patient 60 Andrew Solis MD Work Phone: mp-[facility] 047 DO Work Phone: Start: 61-82-9507Hggnkg outpatient new 45 minutes Gopi Solis MD Work Phone: mp-[facility] 653 DO Work Phone: Start: 06-01-2022(FCCCWMNF/U) Weight Management f/u Lilliamcarlos Morris Coordinated Care ClinicStart: 06-01-2022 End: 53-12-0588imbyiifbuuFrnzdf Navajo Hilton IIFacility:[id number]: 05-17-2022 End: 31-11-5462zzpozrzvoaUL DOCTOR MISCFacility:Z4Pssnn: 05-11-2022 End: 72-10-3699tgypgafecmDC CAROL ASCENCIOFacility:F9Kbmob: 72-48-4968Hb Change Luana Cox ELECTRICAL FITTER-PALLET RECTIFIER Work Phone: [phone]-Jglzrxnmaeyhpp-Admin [place] [address] Work Phone: Start: 57-47-1891Cfwyzl outpatient visit 15 minutes Ronnie Murphy MD Work Phone: [phone]-Sxnaejrmwsnutt-Christ Work Phone: Start: 56-45-8716gqanwsmzdhFn. RONNIE MURPHY Facility:[id number]: 05-15-2021 End: 20-22-8245Ydwhpyd encounter Grant HILTON [facility] Start: 19-44-9735Ht Yuly Murphy MD Work Phone: [phone]-Qnjelsmrtxkgat-Admin [place] [address] Work Phone: Start: 93-94-6135Enqdvk outpatient visit 15 minutes Ronnie Murphy MD Work Phone: [phone]-Morsmckvvdcudw-Christ Work Phone: Start: 28-50-5594CXXPMCP, Provider: Ronnie Murphy, Status: Pen, Time: 9:00 Bear Murphy MD Work Phone: [phone]-Nlnjcuhhdpacro-Nishant Work Phone: [phone]: 44-15-1002Rxkmi Willian Murphy MD Work Phone: [phone]-Wxpxnsxotcrpdx-Nishant Work Phone: [phone]: 32-63-5014Jamth Willian Murphy MD Work Phone: VQ-Wpxurhfnuytekr-[employer] Work Phone: Start: 36-99-0183Ydihkgcfu encounterCheryl Cox ELECTRICAL FITTER-PALLET RECTIFIER Work Phone: [phone]-Buatqxofhmqblr-[place] Work Phone: start: 16-10-1661Khzicm outpatient visit 15 minutes Ronnie Murphy MD Work Phone: [phone]-Sgnyktljwplafc-[employer] Work Phone: Start: 64-46-8142Tvqchir encounter procedurePierre TuybwkqIY-Tccgytoadqqgxd-Efucetwm Work Phone: start: 98-81-0437Ewzfajp encounter procedurePierre VibvrkeGY-Ghoykwaabwxsql-Yjipj [place] [address] Work Phone: Start: 83-29-9381Rxuotbn encounter procedurePierre QswsbtgNK-Hgqoyffmfvdykw-Swxoc [place] [address] Work Phone: Start: 38-68-3949Lxpwzro encounter procedurePierre KcxyawnGU-Mhvwrshwybgqxn-Powcn [place] [address] Work Phone: Start: 30-96-3604Pvoexdv encounter procedurePierre QxsvhqxEA-Mjwoajyzxgcqoz-Yvnap [place] [address] Work Phone: Procedures DateProcedureProcedure DetailPerforming ClinicianStart: 39-18-4996RSC CBC WITH AUTO DIFFBello Hilton MD Work Phone: Start: 17-79-6430DJV HEMOGLOBIN D5ETpiajjBello Hilton MD Work Phone: Start: 57-66-6966POY MICROALB CREAT RATIO RANDOMBello Hilton MD Work Phone: Start: 26-78-7593RUO THYROID STIM HORMONEGeneric External Data ProviderStart: 44-80-3015Aietsim impacted cerumen instrumentation Job SINGH Work Phone: Start: 13-55-7566QG TOMOSYNTHESIS SCREENING Shimon Hilton MD Work Phone: Start: 83-23-5493QbhowntfslnTvmdlw Berry MD Work Phone: Start: 31-87-6941YDL CREATININEGeneric External Data ProviderStart: 82-69-9537XYW DHEA SULFATEGeneric External Data ProviderStart: 75-08-5688XYWJ CORTISOLGeneric External Data ProviderStart: 04-10-2024 Thyrotropin [Units/volume] in Serum or PlasmaDominic Saldana MD Work Phone: Start: 79-09-8739Oqvwg 1996 panel - Serum or Plasma Ronnie Murphy MD Work Phone: Start: 31-67-3716Wpjjezjvrlk [Units/volume] in Serum or PlasmaRonnie Murphy MD Work Phone: Start: 24-50-4906Hsmihpfcng glycosylated y9wSyjzhsCristina Hubbard HR SPECIALIST Work Phone: Start: 64-49-9366Xdwsy Strep (POC)II Bello Hilton Work Phone: Start: 69-05-3819Nxtsif scan veins of upper limbII Bello Hilton Work Phone: Start: 87-42-9856Whbwe chest X-rayII Bello Hilton Work Phone: Start: 76-65-4691Hraer X-ray of left shoulderII Bello Hilton Work Phone: Start: 20-92-1283Xszdjrfwbwsx cholecystectomyJohn Mourany Start: 43-81-1339GitgqkcmdfhVgpnce Shively HR SPECIALIST Work Phone: Start: 50-30-2969NrqlxwgacgrUlqyzh Lavertu MD Work Phone: Start: 45-67-9389Yxdob colonoscopyMoveronique Solis MD Work Phone: Start: 47-40-8222GlznjakjappRzhcbu Shively HR SPECIALIST Work Phone: Start: 20-29-8293Zcpsuqtkx mammoplastyJohn Mourany Start: 06-36-6763Sknpsrz of hernia repairEmiliano Lagos Hernia repairMoveronique Solis MD Work Phone: Operation on breastGopi Solis MD Work Phone: Plan of Treatment DateCare ActivityDetailAuthorStart: 00-61-7474Pdbyxhowa for malignant neoplasm of colonNOMS HealthcareStart: 10-09-2026Medicare Annual Wellness (AWV)Medicare Annual Wellness (AWV)[facility] HealthcareStart: 47-15-8323Toxpmsdae vaccination Influenza Vaccine (#1)NOMS HealthcareComment on above:Postponed from 12/31/2024 (Patient Refused)Start: 07-16-2025 End: 05-03-7711Vqfcksa encounter /17/2026 10:00 AM EDT Office Visit [facility] [place] [address] [place], [place] [place] [id number] [address] Department of Medicine- [place] [address] [facility] Inctart: 31-74-7901Hjiuuszvp for malignant neoplasm of breastMammogramNOMS HealthcareStart: 80-24-3269Yubdhgm stimulating hormone measurementTSAllianceHealth Ponca City – Ponca CityStart: 02-26-2025 End: 17-49-8460Gtpsakh encounter gkegverty76/28/2025 1:15 PM EDT Office Visit [facility] [place] [address] [place] [address] [place] [address] [place] [address] [facility] Inctart: 77-90-0062Ootce panelLipid PanelUC Medical Center Start: 80-58-9900Fjuzvop stimulating hormone measurementGalion HospitalUnCleveland Clinic Mercy Hospital: 50-74-0756Tmvjb screening for proteinDiabetes: Urine Protein ScreeningHolzer [facility] – [place]: 02-13-2025 Medicare Annual Wellness (AWV)Medicare Annual Wellness (AWV)[facility] Start: 31-27-7594Vaawuybwhlwy Vaccine: 65+ Years (1 of 2 - PCV)Pneumococcal Vaccine: 65+ Years (1 of 2 - PCV)[facility] HealthcareComment on above:Postponed from 1963 (Patient Refused)Postponed from 1976 (Patient Refused)Start: 02-07-2025 End: 29-00-0231PAA Skeletal system Views for bone densityDEXA bone density Imaging Routine Estrogen deficiency Expected: 02/07/2025, Expires: 02/07/2026 [facility] Work Phone: Comment on above:Expected: 02/07/2025, Expires: 02/07/2026Start: 02-07-2025 End: 52-02-1328Rtgoxpm encounter procedureNOAK [facility] MedinceComment on above:ArrivedStart: 44-78-3212Ettgxscu screeningDiabetes: Retinopathy Screening [facility] HealthcareStart: 56-25-4831Abmenfcnl vaccinationUC Medical CenterStsomers point: 69-84-6021UrnhegvdvMcKitrick Hospitaltart: 11-08-2024 [facility] Work Phone: Start: 72-19-1297Vtlfa screening for proteinDiabetes: Urine Protein ScreeningLAYTON HOSPITAL HealthcareStart: 09-10-2024 End: 66-52-5384TNC-IIGF-I Lab Routine Hypothyroidism, unspecified type Class 3 severe obesity with serious comorbidity and body mass index (BMI) of 40.0 to 44.9 in adult, unspecified obesity type Expected: 09/10/2024 (Approximate), Expires: 07/19/2025[facility] Work Phone: Comment on above:Expected: 09/10/2024 (Approximate), Expires: 07/19/2025Start: 09-10-2024 End: 27-80-3536Nnyxfzozgpx [Units/volume] in Serum or PlasmaThyroid Stimulating Hormone Lab Routine Hypothyroidism, unspecified type Class 3 severe obesity with serious comorbidity and body mass index (BMI) of 40.0 to 44.9 in adult, unspecified obesity type Expected: 09/10/2024 (Approximate), Expires: 07/19/2025 [facility] Service Area Work Phone: Comment on above:Expected: 09/10/2024 (Approximate), Expires: 07/19/2025Start: 09-10-2024 End: 40-30-4585Cdbwrfrqa (T4) free [Mass/volume] in Serum or PlasmaThyroxine, Free Lab Routine Hypothyroidism, unspecified type Class 3 severe obesity with serious comorbidity and body mass index (BMI) of 40.0 to 44.9 in adult, unspecified obesity type Expected: 09/10/2024 (Approximate), Expires: 07/19/2025 [facility] Work Phone: Comment on above:Expected: 09/10/2024 (Approximate), Expires: 07/19/2025Start: 09-03-2024 End: 90-36-4809Bhgfnpc encounter qycozzuyh16/05/2025 1:30 PM EDT Office Visit [facility] [address] [place] [address] Zulma Moe PA [address] [place] [address] ArrivedNOMS CI FMComment on above:ArrivedStart: 08-22-2024 End: 54-01-7799Burhgkw encounter fiwuwdfys33/23/2025 4:30 PM EDT Appointment [facility] [address] [place] [phone] [facility]: 08-07-2024 End: 79-38-8610Kdnwwld encounter idlembnqw56/08/2025 10:20 AM EDT Office Visit [facility] [address] [place], [place] [place] [address] [address] Department of Medicine- [place] [address] [facility] Inctart: 23-52-0375Wivcwjwhvs A1c measurementDiabetes: Hemoglobin N6RDzpskajyuwUC Medical CenterStart: 64-00-0306Gdowdebmct A1c measurementDiabetes: Hemoglobin P2ANSJE HealthcareStart: 04-45-6670Yonyplvbi for malignant neoplasm of breastMammogramNOAK HealthcareStart: 04-10-2024 End: 53-24-5787GZ Adrenal gland WO and W contrast IVCT adrenals w and wo IV contrast Imaging Routine Adrenal nodule Expected: 04/10/2024, Expires: 04/10[facility] Service Area Work Phone: Comment on above:Expected: 04/10/2024, Expires: 04/10/2025Start: 39-24-2207Elnwpkvdu vaccinationInfluenza Vaccine (#1)[facility] HealthcareComment on above:Postponed from 01/01/2024 (Patient Refused)Start: 04-10-2024 End: 68-14-2651Lbcwccp encounter cbycwaaqt78/10/2024 8:20 AM EST Office Visit [facility] [address] [place] [address] [place] [address] [address] Department of Medicine-[place] [address] [facility] Inctart: 02-21-2024 End: 98-67-2540Gmbhnnf encounter ezhwjgrnf63/22/2024 1:15 PM EDT Office Visit [facility] [address] [place] [address] [place] [address] [place] [address] [facility] Inctart: 02-14-2024 End: 45-41-4400VZC panel - Blood by Automated countCBC Lab Routine Medicare annual wellness visit, subsequent Gastroesophageal reflux disease without e sophagitis Lower extremity edema Type 2 diabetes mellitus without complication, without long-term current use of insulin (CMS/HCC) Expected: 02/14/2024 (Approximate), Expires: 02/13/2025NO[facility] HealthcareComment on above:Expected: 02/14/2024 (Approximate), Expires: 02/13/2025Start: 02-14-2024 End: 74-73-6426Lvkyxunnvokwy metabolic 2000 panel - Serum or PlasmaComprehensive metabolic panel Lab Routine Medicare annual wellness visit, subsequent Type 2 diabetes mellitus without complication, without long-term current use of insulin (CMS/HCC) Expected: 02/14/2024 (Approximate), Expires: 02/13/2025NO[facility] HealthcareComment on above:Expected: 02/14/2024 (Approximate), Expires: 02/13/2025Start: 02-14-2024 End: 30-02-8271GHB Skeletal system Views for bone densityDEXA bone density Imaging Routine Medicare annual wellness visit, subsequent Estrogen deficiency Expected: 02/14/2024 (Approximate), Expires: 02/13/2025[facility] Work Phone: Comment on above:Expected: 02/14/2024 (Approximate), Expires: 02/13/2025Start: 02-14-2024 End: 85-06-7046Urbul 1996 panel - Serum or PlasmaLipid panel Lab Routine Medicare annual wellness visit, subsequent Type 2 diabetes mellitus without complication, without long-term current use of insulin (CMS/HCC) Mixed hyperlipidemia (CMS/HCC) Expected: 02/14/2024 (Approximate), Expires: 02/13/2025 [facility] HealthcareComment on above:Expected: 02/14/2024 (Approximate), Expires: 02/13/2025Start: 02-14-2024 End: 93-83-7588Ijoxexggwmbw/Creatinine panel in random UrineMicroalbumin / creatinine, urine ratio Lab Routine Medicare annual wellness visit, subsequent Type 2 diabetes mellitus without complication, without long-term current use of insulin (CMS/HCC) Expected: 02/14/2024 (Approximate), Expires: 02/13/2025[facility] HealthcareComment on above:Expected: 02/14/2024 (Approximate), Expires: 02/13/2025Start: 02-14-2024 End: 84-62-8346Vmadxitwwlk [Units/volume] in Serum or PlasmaTSH Lab Routine Medicare annual wellness visit, subsequent Acquired hypothyroidism (CMS/HCC) Expected: 02/14/2024 (Approximate), Expires: 02/13/2025[facility] HealthcareComment on above:Expected: 02/14/2024 (Approximate), Expires: 02/13/2025Start: 02-14-2024 End: 87-66-9866Fhilpfg encounter qvsaxczgl01/15/2024 9:00 AM EDT Office Visit [facility] [address] [facility] [address] [place] [phone] Cristina Hubbard HR SPECIALIST [address] [facility] [address] [place] [address] ArrivedNOAK CI FMComment on above:ArrivedStart: 50-76-2017RVEXJ-19 Vaccine ( season)COVID-19 Vaccine ( season)[facility]: 66-31-9954BGYWQ-19 Vaccine ( season)COVID-19 Vaccine ( season)[facility]: 08-96-6579Hcwzncvrz vaccinationInfluenza Vaccine (#1)[facility] HealthcareStart: 08-15-2024Medicare Annual Wellness (AWV)Medicare Annual Wellness (AWV)[facility] HealthcareStart: 55-57-2063Itnmtlfxgb A1c measurement Diabetes: Hemoglobin O8WXVGK HealthcareStart: 05-50-7194Ipvipm scan veins of upper limbUS venous duplex UE [facility] CenterStart: 43-31-6851ZH Upper extremity vein - leftMcKitrick Hospitaltart: 99-42-8473Biykzdgvo for malignant neoplasm of colonNOAK HealthcareStart: 63-78-5519scziuuqvejRotvfnmrtlHfkyplsn: BellevueStart: 84-13-9727Diginxovl for malignant neoplasm of breastMammogramUnCleveland Clinic Mercy Hospital: 29-87-3421ZGL, Provider: Ronnie Murphy, Status: Pen, Time: 2:45 PMFUV, Provider: Ronnie Murphy, Status: Pen, Time: 2:45 WGTN-Liwdgrvkilxcxf-Vthuvuna Work Phone: Start: 03-98-1305Fesulegkb vaccinationInfluenza Vaccine (#1)[facility]: 04-41-8661AXA, Provider: Gopi Solis, Status: Pen, Time: 12:50 PMFUV, Provider: Gopi Solis, Status: Pen, Time: 12:50 PMMP-[facility] [address] DO Work Phone: Start: 65-84-8870JZGE ONLY, Provider: CHASITY REINAI NUCLEAR 01,[id number], Status: Pen, Time: 12:30 PMREST ONLY, Provider: CHASITY HHVI NUCLEAR 01,[id number], Status: Pen, Time: 12:30 PMMP-[facility] [address] DO Work Phone: Start: 67-94-5286DUMONOQAY2, Provider: CHASITY HHVI NUCLEAR 01,[id number], Status: Pen, Time: 12:30 PMSTRESSNUC2, Provider: CHASITY HHVI NUCLEAR 01,[id number], Status: Pen, Time: 12:30 PMMP-[facility] [address] DO Work Phone: Start: 37-43-9268GDGGT-19 Vaccine (4 - Pfizer series) COVID-19 Vaccine (4 - Pfizer series)[facility]: 63-72-7481GEG, Provider: Ronnie Murphy, Status: Pen, Time: 2:50 PMFUV, Provider: Ronnie Murphy, Status: Pen, Time: 2:50 JVLE-Amoutlfbhxztvy-Jxzeichz Work Phone: Start: 98-94-7099DWJ, Provider: Ronnie Murphy, Status: Pen, Time: 3:00 PMPOV, Provider: Ronnie Murphy, Status: Pen, Time: 3:00 RDKO-Hgadcbqklbsodv-Nuxgmht Work Phone: start: 10-40-2472JXMFMRX, Provider: Ronnie Murphy, Status: Pen, Time: 9:00 AMSURGCMC, Provider: Ronnie Murphy, Status: Pen, Time: 9:00 FLWB-Ktgsmfdgawvezu-Icytsqyn Work Phone: Start: 54-58-0090YDD, Provider: Ronnie Murphy, Status: Pen, Time: 1:00 PMFUV, Provider: Ronnie Murphy, Status: Pen, Time: 1:00 LRSC-Ggfrhepigyywlj-Egsheafp Work Phone: start: 49-13-7588Kwhlsxunn B Vaccines (1 of 3 - Risk 3-dose series)Hepatitis B Vaccines (1 of 3 - Risk 3-dose series)[facility]: 43-58-2306AGP High Risk: (Elderly (60+) or Population) (1 - Risk 60-74 years 1-dose series)RSV High Risk: (Elderly (60+) or Population) (1 - Risk 60-74 years 1-dose series)[facility]: 41-68-4367Omkvjs Vaccines (1 of 2)Zoster Vaccines (1 of 2) [facility]: 58-64-6847ZBoN/Tdap/Td Vaccines (1 - Tdap)DTaP/Tdap/Td Vaccines (1 - Tdap)[facility]: 66-71-6611Vmnrofthk for malignant neoplasm of cervixUnCleveland Clinic Mercy Hospital: 30-52-3251Safordelu A Vaccines (1 of 2 - Risk 2-dose series) Hepatitis A Vaccines (1 of 2 - Risk 2-dose series)[facility]: 15-91-7443Jgtmkhuevbaf vaccinationPneumococcal Vaccine (1 of 2 - PCV)[facility]: 28-39-4477Scevy screening for proteinDiabetes: Urine Protein ScreeningHolzer Medical Center – [place]: 50-00-4517Wzbqmngkj C screeningHepatitis C ScreeningHolzer Medical Center – [place]: 48-30-0597Mvpdqsdc foot examinationDiabetes: Foot ExamUnCleveland Clinic Mercy Hospital: 39-22-9107Askiazkb screeningDiabetes: Retinopathy ScreeningHolzer Medical Center – [place]: 28-90-7822Xeqhafeeqtuw Vaccine: 65+ Years (1 - PCV)Pneumococcal Vaccine: 65+ Years (1 - PCV)[facility]: 53-87-3714Lyiaavswqsjv Vaccine: 65+ Years (1 of 2 - PCV)Pneumococcal Vaccine: 65+ Years (1 of 2 - PCV)[facility] CenterSt[facility]: 64-10-0707QTO Vaccines (1 of 1 - Standard series)MMR Vaccines (1 of 1 - Standard series)[facility]: 25-88-1481Vyaorhhoed A1c measurementDiabetes: Hemoglobin Q8YLopdxkfkhhHolzer Medical Center – [place]: 21-16-1200Qufgb panelLipid PanelHolzer Medical Center – [place]: 01-01-1958Medicare Annual Wellness VisitMedicare Annual Wellness Visit (AWV) [facility]: 00-16-7306Dseydxolw for malignant neoplasm of colonHolzer Medical Center – [place]: 22-31-4392Khlvjesag for osteoporosisBone Density ScanHolzer Medical Center – [place]: 1957 Thyroid stimulating hormone measurementTSH [facility]: 14-66-4742Mbwtnx Adult PhysicalYearly Adult PhysicalUnCentervilleComprehensive metabolic 2000 panel - Serum or Plasma [facility] System West CampusCT for calcium scoring WO contrast and CTA W contrast IV Heart and coronary arteriesCT heart calcium scoring wo IV contrast Imaging Routine Decreased right ventricular systolic function LVH (left ventricular hypertrophy) Type 2 diabetes mellitus without complication, without long-term current use of insulin (CMS/HCC) Mixed hyperlipidemia (CMS/HCC) Screening for heart disease Ordered: 02/14/2024NO[facility] HealthcareComment on above: Ordered: 02/14/2024 End: 28-80-7807HS for calcium scoring WO contrast and CTA W contrast IV Heart and coronary arteriesLOVELACE WOMEN'S HOSPITAL Service Area Work Phone: Comment on above:Once for 1 Occurrences starting 08/22/2024 until 08/22/2024Patient EducationShoulder Pain (DC)[facility] Work Phone: Patient referralSt. [facility]'S [facility] Work Phone: US Heart TransthoracicPAM [facility] Immunizations Immunization DateImmunizationNotesCare OykelhwaYrqrvlin63-00-5685Rugtycy SARS-CoV-2 VaccinationSherri Cora HR SPECIALIST Work Phone: NOAK Rvdcwigiui63-87-1781Dnkqyw COVID-19 Vac Bivalent 30 MCG/0.3ML Intramuscular SuspensionGopi Solis MD Work Phone: [phone]-Qednw [facility] 250 DO Work Phone: [phone]-DfmIEess COVID-19 Vacc 30 MCG/0.3ML Intramuscular SuspensionGopi Solis MD Work Phone: General Surgery Lghwyajo94-97-1366Ltsuje-RemTFsuf COVID-19 Vacc 30 MCG/0.3ML Intramuscular SuspensionGopi Solis MD Work Phone: General Surgery Shpzfptl29-63-5405Ujdeta-KfnFVted COVID-19 Vacc 30 MCG/0.3ML Intramuscular SuspensionGopi Solis MD Work Phone: General Surgery Zzkokqzj19-91-7497kdwdrhm toxoid, adsorbedShgerhard Hubbard HR SPECIALIST Work Phone: NOAP HealthcareNEGATED: Highlighted row has not occurred!51-68-3864hikhqhouu virus vaccine, unspecified formulationJogabi Moharinder [phone]-DnixdWright-Pat[facility] [place] Payers DatePayer CategoryPayerPolicy ID2024Medicare [id number] [id number] [id number] or OtherMUTUAL [facility] [id number]-qyy29-08-6868Jcwqirg Health [id number]6-3951Avgixlf Health MtqntpujvCXSNX37-16-3384Fwyhvzy Health Lcuhcsycn3616798007-48-8877Sdjhrwh [id number] 2.840.1.682027.3.57[id number] 2.840.1.151284.3.57[id number] 2.16840.1.069901.3.57[id number] 2.16840.1.168980.3.57[id number] 2.16840.1.374659.3.57[id number] 2.16.840.1.353205.3.57[id number] 2.16.840.1.444962.3.57[id number] 2.16.840.1.378551.3.57[id number] 2.16.840.1.256692.3.57[id number] 2.16840.1.922532.3.579.[id number] 2.16840.1.147309.3.579.[id number] 2.16840.1.522742.3.579.[id number] 2.16840.1.201235.3.579.[id number] 2.16840.1.530304.3.579.2.[id number] 2.16840.1.111802.3.579.2.10[id number] 2.16840.1.257455.3.57[id number] 2.16840.1.300737.3.57[id number] 2.16840.1.974046.3.579.2.617259-12-5492Qnbbogo1509455 2.16840.1.118208.3.579.2.[id number] 2.840.1.562741.3.579.2.1259MedicareMedicare- Part A [id number] 2.16.840.1.278099.19UnknownHCAP/HFA/FAP [id number] gi7xa271-a991-99ck-257s-[id number] 2..840.1.0262[id number] 2.0.1.764839.3.579.2.531 [id number] 2..840.1.642591.3.579.2.531 Social History DateTypeDetailFacilityStart: 02-22-2023 End: 06-45-0013Vjmts a smokerNever a kcymmoGU-Mzrnelcekdbrpr-Okfvueqo Work Phone: comment on above:pop 3 daily;Start: 02-22-2023 End: 80-01-6611Qwk Assigned At [facility] HospitalFeSelect [facility] Special[facility]-Fairhilltart: 09-22-2022 End: 89-06-0828Eylgorg smoking status NHISNever smoked tobaccoUnCentervilleStart: 09-22-2022 End: 23-63-2749Iihuxaq use and exposureSmokeless tobacco non-userUnCenterville Work Phone: Start: 91-40-6051Oes Assigned At BirthNot on file [facility] Work Phone: Start: 02-12-2023 End: 32-93-7088Uskeskek to SARS-CoV-2 (event)Not sureUnCentervilleStart: 78-41-0459Via Assigned At [facility] CenterTobacco smoking statusNeverAshtabula County Medical Center [facility] Centertart: 10-06-2023 End: 16-21-0739Ibvukgzqr beverage intakeLifetime non-drinker (finding)[facility] HealthcareStart: 21-19-0653Geoingc CommentCaffeine intake: noneNOMS Healthcare Start: 97-80-7462MlkQcwazg (finding)[facility] CampusNEGATED: Highlighted row--XT-Luffptvnknnusy-Lteai [place] [address] Work Phone: Medical Equipment Procedure CodeEquipment CodeEquipment Original TextEquipment IdentifierDatesPen Webster 32G X 4 MMStart: 77-24-9628[employer] [address] [id number]: 93-45-8577Tlhfoqi on above:Description: Converted from [facility] Acute. Please see archived information for full log information. Additional Information:per bill only jdr 03/28/2021 1456pm Functional Status WfayRsgqlpzpytJyfltuAadyzlje96-01-3337Dscfgfw Health Questionnaire 2 item (PHQ- 2) [Reported][facility] CenterQjzuglbkhp09-34-7710Frflwtu Health Questionnaire 2 item (PHQ- 2) [Reported][facility] Medical CenterMkapcriyra06-72-0209Fgbxwyoryr StatusN/AFisherP & S Surgery Center HealthcareNEGATED: Highlighted rowFunctional performanceFunctional status health issues are not documented Disease SM-Nyxemohotbrkwr-Hkgft [address] Work Phone: Mental Status DateAssessmentResultFacilityNEGATED: Highlighted rowCognitive function [Interpretation]Cognitive status health issues are not documented Disease MU-Wkxlqyboavljbv-Nivvg [place] [id number] Work Phone: Clinical Notes 03-03-2021 to 02-07-2025 Note Date & CghgFqqnUlcnjytg22-21-5315 History of Present illness Narrative* SAMANTHA Bañuelos - 02/07/2025 9:00 AM EDT Images from the original [...] have a medical power of bankruptcy attorney?: Yes Current Outpatient Medications on File Prior to Visit Medication Sig Dispense Refill omeprazole (PriLOSEC) [address] capsule Take 20 mg by mouth in the morning and 20 mg in the evening.Take before meals. (Patient taking differently: Take 20 mg by mouth in the morning. Take before meals.) cholecalciferol (Vitamin D-3) 50 MCG (2000 UT) [...] Mask-MED) misc 1 Device at bedtime Mirage ActivaLT Mask Ydr-LHXL-NqqJtx for CPAP 1 each 1 risperiDONE (RisperDAL) 2 MG tablet Take 2 mg by mouth in the morning. semaglutide (Ozempic, 0.25 or 0.5 MG/DOSE,) 2 MG/1.5ML solution pen-injector Inject 0.25 mg under the skin 1 (one) time per week. venlafaxine XR (Effexor XR) 75 MG 24 hr capsule Take 75 mg by mouth in the morning and 75 mg beforebedtime. [DISCONTINUED] meclizine (Antivert) 25 MG tablet Take 1 tablet (25 mg) by mouth 3 (three) times a day as needed for dizziness 30 tablet 0 [DISCONTINUED] metFORMIN (Glucophage) 500 MG tablet TAKE 1 TABLET BY MOUTH EVERY DAY WITH A MEAL 100 tablet 3 [DISCONTINUED] simvastatin (Zocor) 40 MG tablet TAKE 1 TABLET BY MOUTH EVERY DAY IN THE EVENING FOR90 DAYS 100 tablet 3 No current facility-administered [...] OTHER SURGICAL HISTORY 2008 laser/dilation;Disease:subglottic/tracheal stenosis; 2011 AL BRNCHSC W/TRACHEAL/BRONCHIAL DILAT/CLSD RDCTJ FX 2007 endoscopy [...] 0.55 - 1.02 mg/dL Final TBH EGFR-AF NIUEAN 02/02/2025 >60 >=60 mL/min/1.73m 2 Final TBH EGFR-NON AF NIUEAN 02/02/2025 >60 >=60 mL/min/1.73m 2 Final BUN [...] ordered. Will continue withyearly Medicare Wellness exams. 2. ACP (advance care [...] exertion The patient is seeing a medical numerical control operator for this condition, treatment is deferred to that specialist. Correspondence from that specialist and any available testing were reviewed during today's visit. 6. Tracheal stenosis The patient is seeing a medical numerical control operator for this condition, treatment is deferred to that specialist. Correspondence from that specialist and any available testing were reviewed during today's visit. 7. Abnormal electrocardiogram The patient is seeing a medical numerical control operator for this condition, treatment is deferred to that specialist. Correspondence from that specialist and any available testing were reviewed during today's visit. 8. Decreased right ventricular systolic function The patient is seeing a medical numerical control operator for this condition, treatment is deferred to that specialist. Correspondence from that specialist and any available testing were reviewed during today's visit. 9. LVH (left ventricular hypertrophy) The patient is seeing a medical numerical control operator for this condition, treatment is deferred to that specialist. Correspondence from that specialist and any available testing were reviewed during today's visit. 10. Mitral valve insufficiency and aortic valve stenosis The patient is seeing a medical numerical control operator for this condition, treatment is deferred to that specialist. Correspondence from that specialist and any available testing were reviewed during today's visit. 11. Adrenal abnormality (HCC) The patient is seeing a medical numerical control operator for this condition, treatment is deferred to [...] (HCC) The patient is seeing a medical numerical control operator for this condition, treatment is deferred to that specialist. Correspondence from that specialist and any available testing were reviewed during today's visit. 15. Hepatomegaly The patient is seeing a medical numerical control operator for this condition, treatment is deferred to [...] hypothyroidism The patient is seeing a medical numerical control operator for this condition, treatment is deferred to that specialist. Correspondence from that specialist and any available testing were reviewed during today's visit. 20. Type 2 diabetes mellitus with other specified complication, without long- term current use of insulin ([facility]) Advised pt that her recent HgbA1c has increased to 6.4, but does remain controlled. She is currently on Ozempic. Will recheck in 3-6 months. 21. Morbid obesity with BMI of 40.0-44.9, adult ([facility]) Patient has lost 4 pounds since her last appointment. Encouraged portion control, decrease simple sugars and carbohydrates, gradually increase activity level. Aim for continued, gradual steady weightloss. 22. 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 No concerns at this time.Will monitor. 25. Anxiety and depression This is [...] carcinoma The patient is seeing a medical numerical control operator for this condition, treatment is deferred to [...] mg) by mouth at bedtime Dispense: 100 tablet;Refill: 3 Follow up in about 6 months (around 08/08/2025) for Diabetes. Zulma NORTON PA-C documented in this encounterNevada Regional Medical [id number] Evaluation note* Diagnosis Onset Date Resolution Status Admit Date Abnormal weight gain acuteJuly 2024 1:36pmAcid refluxacuteJuly 2024 1:36pmAdrenal abnormalityacuteJuly 2024 1:36pmAnxiety and depressionacuteJuly 2024 1:36pmBipolar disorderacuteJuly 2024 1:36pmBMI 45.0-49.9, adultacuteJuly 2024 1:36pmDiabetes type 2, uncontrolledacuteJuly 2024 1:36pmFatigue acuteJuly 2024 1:36pmFatty pancreasacuteJuly 2024 1:36pmHyperlipidemia acuteJuly 2024 1:36pmHypothyroidacuteJuly 2024 1:36pmObesityacuteJuly 2024 1:36pmOSA (obstructive sleep apnea)acuteJuly 2024 1:36pmVitamin D deficiencyacuteJuly 2024 1:36pmAnxiety and depressionacuteAugust 2024 9:13amBMI 45.0-49.9, adultacuteAugust 2024 9:13amDependent edemaacute [place] 2024 9:13amDiabetes type 2, uncontrolledacuteAugust 2024 9:13amDOE (dyspnea on exertion)acuteAugust 2024 9:13amExercise intolerance acuteAugust 2024 9:13amHyperlipidemiaacuteAugust 2024 9:13am HypothyroidacuteAugust 2024 9:13amOSA (obstructive sleep apnea)acuteAugust 2024 9:13am [facility] Work Phone: 1(232) 414-706007-09-2025 Evaluation note* Diagnosis Onset Date Resolution Status Admit Date Abnormal weight gain acuteJuly 2024 1:36pmAcid refluxacuteJuly 2024 1:36pmAdrenal abnormalityacuteJuly 2024 1:36pmAnxiety and depressionacuteJuly 2024 1:36pmBipolar disorderacuteJuly 2024 1:36pmBMI 45.0-49.9, adultacuteJuly 2024 1:36pmDiabetes type 2, uncontrolledacuteJuly 2024 1:36pmFatigue acuteJuly 2024 1:36pmFatty pancreasacuteJuly 2024 1:36pmHyperlipidemia acuteJuly 2024 1:36pmHypothyroidacuteJuly 2024 1:36pmObesityacuteJuly 2024 1:36pmOSA (obstructive sleep apnea)acuteJuly 2024 1:36pmVitamin D deficiencyacuteJuly 2024 1:36pmAnxiety and depressionacuteAugust 2024 9:13amBMI 45.0-49.9, adultacuteAugust 2024 9:13amDependent edemaacute [place] 2024 9:13amDiabetes type 2, uncontrolledacuteAugust 2024 9:13amDOE (dyspnea on exertion)acuteAugust 2024 9:13amExercise intolerance acuteAugust 2024 9:13amHyperlipidemiaacuteAugust 2024 9:13am HypothyroidacuteAugust 2024 9:13amOSA (obstructive sleep apnea)acuteAugust 2024 9:13amAbnormal weight gainacuteSept2024 1:00pmAcid reflux acuteSept2024 1:00pmAdrenal abnormalityacuteSept2024 1:00pmAnxiety and depressionacuteSept2024 1:00pmBipolar disorderacute January 02, 2025 1:00pmBMI 45.0-49.9, adultacuteSept2024 1:00pm Diabetes type 2, uncontrolledacuteSept2024 1:00pmFatigueacute January 02, 2025 1:00pmFatty pancreasacuteSept2024 1:00pm HyperlipidemiaacuteSept2024 1:00pmHypothyroidacuteSept2024 1:00pmObesityacuteSeptember 2024 1:00pmOSA (obstructive sleep apnea)acute January 02, 2025 1:00pmVitamin D deficiencyacuteSept2024 1:00pm [facility] Work Phone: 1(740) 739-581306-10-2025 Telephone encounter Note* Telephone Encounter - Christina Mercer MA - 10/09/2024 10:24 AM EDT Faxed order and paperwork [facility] [id number] Miscellaneous Notes* Telephone Encounter - Christina Mercer MA - 10/09/2024 10:24 AM EDT Faxed order and paperwork * Telephone Encounter - Justine Bell - 10/09/2024 9:54 AM EDT Patient is due for a new rx for sleep machine hose/mask to [facility] fax number is [phone] documented in this encounterNevada Regional Medical [id number] Telephone encounter Note* Telephone Encounter - Justine Bell - 10/09/2024 9:54 AM EDT Patient is due for a new rx for sleep machine hose/mask to [facility] fax number is [phone] [facility] CenterBmtwnvfejg62-17-3316 Evaluation note* Diagnosis Onset Date Resolution Status Admit Date Abnormal weight gain acuteMay 2024 2:00pmAcid refluxacuteMay 2024 2:00pmAdrenal abnormalityacuteMay 2024 2:00pmAnxiety and depressionacuteMay 2024 2:00pmBipolar disorderacuteMay 2024 2:00pmBMI 45.0-49.9, adultacuteMay 2024 2:00pmDiabetes type 2, uncontrolledacutey 2024 2:00pmFatigue acuteMay 2024 2:00pmFatty pancreasacuteMay 2024 2:00pmHyperlipidemia acuteMay 2024 2:00pmHypothyroidacuteMay 2024 2:00pmObesityacuteMay 2024 2:00pmOSA (obstructive sleep apnea)acuteMay 2024 2:00pmVitamin D deficiencyacuteMay 2024 2:00pmAbnormal weight gainacuteJuly 2024 1:36pmAcid refluxacuteJuly 2024 1:36pmAdrenal abnormalityacuteJuly 2024 1:36pmAnxiety and depressionacuteJuly 2024 1:36pmBipolar disorderacute November 07, 2024 1:36pmBMI 45.0-49.9, adultacuteJuly 2024 1:36pmDiabetes type 2, uncontrolledacuteJuly 2024 1:36pmFatigueacuteJuly 2024 1:36pmFatty pancreasacuteJuly 2024 1:36pmHyperlipidemiaacuteJuly 2024 1:36pm HypothyroidacuteJuly 2024 1:36pmObesityacuteJuly 2024 1:36pmOSA (obstructive sleep apnea)acuteJuly 2024 1:36pmVitamin D deficiencyacuteJuly 2024 1:36pm [facility] Work Phone: 1(991) 265-240805-21-2025 Evaluation note* Diagnosis Onset Date Resolution Status Admit Date Abnormal weight gain acuteSeptember 19, 2024 2:00pmAcid refluxacutey 2024 2:00pmAdrenal abnormalityacutey 2024 2:00pmAnxiety and depressionacutey 2024 2:00pmBipolar disorderacutey 2024 2:00pmBMI 45.0-49.9, adultacuteMay 2024 2:00pmDiabetes type 2, uncontrolledacutey 2024 2:00pmFatigue acuteMay 2024 2:00pmFatty pancreasacuteMay 2024 2:00pmHyperlipidemia acuteMay 2024 2:00pmHypothyroidacuteMay 2024 2:00pmObesityacuteMay 2024 2:00pmOSA (obstructive sleep apnea)acuteSeptember 19, 2024 2:00pmVitamin D deficiencyacuteSeptember 19, 2024 2:00pmAbnormal weight gainacuteJuly 2024 1:36pmAcid refluxacuteJuly 2024 1:36pmAdrenal abnormalityacuteJuly 2024 1:36pmAnxiety and depressionacuteJuly 2024 1:36pmBipolar disorderacute November 07, 2024 1:36pmBMI 45.0-49.9, adultacuteJuly 2024 1:36pmDiabetes type 2, uncontrolledacuteJuly 2024 1:36pmFatigueacuteJuly 2024 1:36pmFatty pancreasacuteJuly 2024 1:36pmHyperlipidemiaacuteJuly 2024 1:36pm HypothyroidacuteJuly 2024 1:36pmObesityacuteJuly 2024 1:36pmOSA (obstructive sleep apnea)acuteJuly 2024 1:36pmVitamin D deficiencyacuteJuly 2024 1:36pmAnxiety and depressionacuteAugust 2024 9:13amBMI 45.0- 49.9, adultacuteAugust 2024 9:13amDependent edemaacuteAugust 2024 9:13amDiabetes type 2, uncontrolledacuteAugust 2024 9:13amDOE (dyspnea on exertion)acuteAugust 2024 9:13amExercise intoleranceacuteAugust 2024 9:13amHyperlipidemiaacuteAugust 2024 9:13amHypothyroidacuteAugust 2024 9:13amOSA (obstructive sleep apnea)acuteAugust 2024 9:13am [facility] Work Phone: 1(708) 574-179905-20-2025 History of Present illness Narrative* Cristina Hubbard [...] mask and supplies , pt went to [facility] sleep study.Wearing every night. Mask is 6 months old and pt is in need of a new mask. Pt is using a Mirage Activa LT Mask [id number]. Feels well rested in the morning. No [...] (CMS/HCC) Hypertension (CMS/HCC) Idiopathic subglottic tracheal stenosis 2009 Obesity Thyroid disease (CMS/HCC) Past Surgical History: Procedure Laterality Date CHOLECYSTECTOMY 05/16/2023 EXCISION HIDRADENITIS OF INGUINAL / UMBILICAL AREA FEMINIZING AUGMENTATION MAMMOPLASTY Bilateral HERNIA REPAIR 1963 OTHER SURGICAL HISTORY 04/2016 Laryngoscopy, Bronchoscopy & Tracheal Dilation; 2010 and 03/19/2021 OTHER SURGICAL HISTORY 2008 laser/dilation;Disease:subglottic/tracheal stenosis; 2011 AL BRNCHSC W/TRACHEAL/BRONCHIAL DILAT/CLSD RDCTJ FX 2007 endoscopy [...] Device at bedtime Mirage Activa LT Mask Kbh-FRHM-[id number] for CPAP Pt needs supplies. Her CPAP is still beneficial for her. The company that she was using told her that she needed to be seen in the office. No follow-ups on file. documented in this encounterJeremy Ville [id number] History of Present illness Narrative* Zulma Moe, SAMANTHA - 09/03/2024 1:30 PM EDTAssociated Order(s): Ear [...] OTHER SURGICAL HISTORY 2008 laser/dilation;Disease:subglottic/tracheal stenosis; 2011 AL BRNCHSC W/TRACHEAL/BRONCHIAL DILAT/CLSD RDCTJ FX 2007 endoscopy [...] acute otitis externa of right ear - kxrjhtwl-qjbddxmzs-mmgwhikdtblukt (Cortisporin) 3.5-62802-5 otic suspension; Administer 3 drops into the [...] for Medicare Wellness Visit. documented in this encounterNevada Regional Medical [id number] Evaluation + Plan note* Assessment & Plan Note - Dominic Saldana MD - 07/19/2024 9:40 AM EDTAssociated Problem(s): Hypothyroidism Orders: Thyroid Stimulating Hormone; Future Thyroxine, Free; Future IGF-I; Future [facility] Work Phone: 1(444) 997-374903-20-2025 Evaluation + Plan note* Assessment & Plan Note - Dominic Saldana MD - 07/19/2024 9:40 AM EDTAssociated Problem(s): Diabetes (Multi) [facility] Work Phone: 1(270) 213-340703-20-2025 History of Present illness Narrative* Dominic Saldana [...] 04/10/2024 No results found for: ALBUR , [id number] Health Maintenance: Assessment/Plan Bette Villafana is a [...] current use of insulin documented in [facility]UC [facility] Work Phone: 1(345) 255-191503-20-2025 Instructions* Patient Instructions* Dominic Saldana MD - [...] RTC in 1 year documented in this encounterUC [facility] Center Work Phone: 1(641) 916-395403-20-2025 Miscellaneous Notes* Assessment & Plan Note - Dominic Saldana MD - 07/19/2024 9:40 AM EDTAssociated Problem(s): Hypothyroidism Orders: Thyroid Stimulating Hormone; Future Thyroxine, Free; Future IGF-I; Future * Assessment & Plan Note - Dominic Saldana MD - 07/19/2024 9:40 AM EDTAssociated Problem(s): Diabetes (Multi) documented in this encounterUC [facility] Center Work Phone: 1(279) 306-758212-10-2024 Evaluation + Plan note* Assessment & Plan Note - Dominic Saldana MD - 04/10/2024 8:20 AM ESTAssociated Problem(s): Hypothyroidism Orders: Thyroid Stimulating Hormone; Future Thyroid Peroxidase (TPO) Antibody; Future Thyroxine, Free; Future [facility] Work Phone: 1(241) 522-832412-10-2024 Evaluation + Plan note* Assessment & Plan Note - Dominic Saldana MD - 04/10/2024 8:20 AM ESTAssociated Problem(s): Diabetes (Multi) Orders: Hemoglobin A1C; Future [facility] Work Phone: 1(452) 668-272912-10-2024 History of Present illness Narrative* Dominic Saldana [...] times per day. Diet: terrible works in [employer] Breakfast: Cheerios 1/2 bowl 1 % [...] TSH No results found for: ALBUR , [id number] Health Maintenance: Assessment/Plan Bette Villafana is a [...] Hemoglobin A1C; Future . documented in this [facility] Work Phone: 1(577) 559-665712-10-2024 Instructions* Patient Instructions* Dominic Saldana MD - [...] for at least 7hrs documented in this encounterUC [facility] Center Work Phone: 1(236) 188-535212-10-2024 Miscellaneous Notes* Assessment & Plan Note - Dominic Saldana MD - 04/10/2024 8:20 AM ESTAssociated Problem(s): Hypothyroidism Orders: Thyroid Stimulating Hormone; Future Thyroid Peroxidase (TPO) Antibody; Future Thyroxine, Free; Future * Assessment & Plan Note - Dominic Saldana MD - 04/10/2024 8:20 AM ESTAssociated Problem(s): Diabetes (Multi) Orders: Hemoglobin A1C; Future documented in this encounterUC [facility] Center Work Phone: 1([phone]) 539-982311-04-2024 Telephone encounter Note* Telephone Encounter - Justine Bell - 03/05/2024 3:25 PM EST [facility] [place] [facility] called and stated that they tried to contact the patient to schedule appt for the referral that was sent to them but tired to two weeks to contact and is unable to get ahold of them. [facility] [id number] Miscellaneous Notes* Telephone Encounter - Justine Bell - 03/05/2024 3:25 PM EST [facility] called and stated that they tried to contact the patient to schedule appt for the referral that was sent to them but tired to two weeks to contact and is unable to get ahold of them. documented in this encounterNevada Regional Medical [id number] History of Present illness Narrative* Ronnie Murphy [...] evidence of any inflammation. documented in this [facility] Work Phone: 1(286) 557-113210-15-2024 History of Present illness Narrative* Shantel Bahena LPN - 02/14/2024 9:00 AM EDT HPI Med Refill Additional comments: Metformin, levothyroxine,simvastain--[facility] Last edited by Shantel Bahena LPN on 02/14/2024 9:06 AM. * Cristina Hubbard, HAO - 02/14/2024 9:00 AM EDT Images from [...] Morbid obesity with BMI of 40.0-44.9, adult ([facility]) Discussed goal of BMI < 30. Advised [...] complication, without long-term current use of insulin ([facility]) We discussed today, the importance of proper [...] time. 19. Routine general medical examination at [facility] facility Reviewed all relevant preventative screenings with [...] on February 14, 2024 documented in this encounterNevada Regional Medical [id number] Evaluation note* Encounter Date Diagnosis Assessment Notes Treatment Notes Treatment Clinical Notes Jun, Obesity (ICD-10 - E66.9) Jun,iabetes type 2, uncontrolled (ICD-10 - E11.65)sample Ozempic prepared after appt. Discussed how diabetes can be impacted with lifestyle changes such as, losing weight, being active,improving dietary intake. Discussed the risks for diabetes. Explained that weight loss of 5-10% canhave significant impact. Consistent with weight management recommendations, encouraged diet rich infruits, vegetables, low fat dairy, low in red meat sweets and refined grains. Stay away from soda an d fruit juice. Increase activity 30 minutes most days of the week. Jun,MI 40.0-44.9, adult (ICD-10 - Z68.41) Jun,Hypothyroid (ICD-10 - E03.9)Interval surveillance and optimization Jun,nxiety and depression (ICD-10 - F41.8)Consideration mental health to assure proper goal setting and strategies for success Jun,Heartburn (ICD-10 - R12)Discussed possibility of worsening of reflux with GLP-1 medications. Weight loss can also contribute to resolution of Jun,Hyperlipidemia (ICD-10 - E78.5)Discussed risks of elevated LDL. Encouraged intake of foods low in saturated fat as well as supplements (jamel, fish oil). Discussed LDL contributing to insulin resistance and increase cardiovascular risk factors. Jun,Snores (ICD-10 - R06.83) Jun,OSA (obstructive sleep apnea) (ICD-10 - G47.33)Attention to sleep hygiene: Sleep at least 6 [...] with PCP if no increased feelings of restfulness/vigilance during awake hours. Might necessitate sleep adjunct.. Encouragevigilance to CPAP Jun,Vitamin D deficiency (ICD-10 - E55.9) Jun,Hypertriglyceridemia (ICD-10 - E78.1) Jun,Fatigue (ICD-10 - R53.83) Jun,drenal abnormality (ICD-10 - E27.9) Jun,Fatty pancreas (ICD-10 - K86.89) Jun,OtherI have spent 30 minutes with this patient and over 50% of the visit was counseling done by myself, Moira NICHOLS. [employer] Other 10-24-2023 History of Present illness Narrative* [...] evidence of any inflammation. documented in this encounterUC [facility] Center Work Phone: 1([phone] 281-238910-17-2023 Evaluation note* Encounter Date Diagnosis Assessment Notes Treatment Notes Treatment Clinical Notes Jan, Obesity (ICD-10 - E66.9) Jan,MI 40.0-44.9, adult (ICD-10 - Z68.41) Jan,OtherSummary of Visit: (A) discussed plate method and adding fiber foods to recipes she is already comfortable making (B) quick veggies to add to meals including fresh, frozen or canned (C) storage tips to keep produce longer (D) tips for using spices, turmeric Patient set the following goals: - try to add green beans, salad or other veggie/fruit w/ dinner; PARTIALLY MET, ON-GOING [employer] Other 10-03-2023 Evaluation note* Encounter Date Diagnosis Assessment Notes Treatment Notes Treatment Clinical Notes Jan, Obesity (ICD-10 - E66.9) first sent wrong diagnosis code, then sent to non preferred pharmacy. [facility] to [facility] preferred. Jan,MI 40.0-44.9, adult (ICD-10 - Z68.41) Jan,Hypothyroid (ICD-10 - E03.9)Interval surveillance and optimization Jan,iabetes type 2, uncontrolled (ICD-10 - E11.65)sample Monalisa 11/30/2022 Discussed how diabetes II delayed [...] 30 minutes most days of the week. Jan,nxiety and depression (ICD-10 - F41.8)Consideration mental health to assure proper goal setting and strategies for success Jan,Heartburn (ICD-10 - R12)Discussed possibility of worsening of reflux with GLP-1 medications. Weight loss can also contribute to resolution of Jan,Hyperlipidemia (ICD-10 - E78.5)Discussed risks of elevated LDL. Encouraged intake of foods low in saturated fat as well as supplements (jamel, fish oil). Discussed LDL contributing to insulin resistance and increase cardiovascular risk factors. Jan,Snores (ICD-10 - R06.83) Jan,OSA (obstructive sleep apnea) (ICD-10 - G47.33)Attention to sleep hygiene: Sleep at least 6 [...] with PCP if no increased feelings of restfulness/vigilance during awake hours. Might necessitate sleep adjunct.. Encouragevigilance to CPAP Jan,Vitamin D deficiency (ICD-10 - E55.9) Jan,Hypertriglyceridemia (ICD-10 - E78.1) Jan,Fatigue (ICD-10 - R53.83) Jan,OtherI have spent 30 minutes with this patient and over 50% of the visit was counseling done by myself, Moira NICHOLS. [employer] Other 08-23-2023 Evaluation note* Encounter Date Diagnosis Assessment Notes Treatment Notes Treatment Clinical Notes Nov, Obesity (ICD-10 - E66.9) Nov,MI 40.0-44.9, adult (ICD-10 - Z68.41) Nov,OtherSummary of Visit: (A) discussed plate method and adding fiber foods to recipes she is already comfortable making (B) quick ingredient foods (C) storage tips to keep produce longer Patient set the following goals: - try to add green beans, salad or other veggie/fruit w/ dinner [employer] Other 06-20-2023 Evaluation note* Encounter Date Diagnosis Assessment Notes Treatment Notes Treatment Clinical Notes Sep, Obesity, unspecified classification, unspecified obesity type, unspecified whether serious comorbidity present (ICD-10 - E66.9) Sep,MI 40.0-44.9, adult (ICD-10 - Z68.41) Sep,OtherSummary of Visit: (A) Presentation of Plate Method discussed (B) Sample meal ideas reviewed (C) exercise recommendations reviewed Patient set the following goals: - patient set personal goal using given handout. [employer] Other 06-20-2023 Evaluation note* Encounter Date Diagnosis Assessment Notes Treatment Notes Treatment Clinical Notes Sep, Obesity (ICD-10 - E66.9) first sent wrong diagnosis code, then sent to non preferred pharmacy. Sent to [facility] preferred. Sep,MI 40.0-44.9, adult (ICD-10 - Z68.41) Sep,Hypothyroid (ICD-10 - E03.9)Interval surveillance and optimization Sep,iabetes type 2, uncontrolled (ICD-10 - E11.65)Discussed how diabetes II delayed or avoided with [...] 30 minutes most days of the week. Sep,nxiety and depression (ICD-10 - F41.8)Consideration mental health to assure proper goal setting and strategies for success Sep,Heartburn (ICD-10 - R12)Discussed possibility of worsening of reflux with GLP-1 medications. Weight loss can also contribute to resolution of Sep,Hyperlipidemia (ICD-10 - E78.5)Discussed risks of elevated LDL. Encouraged intake of foods low in saturated fat as well as supplements (jamel, fish oil). Discussed LDL contributing to insulin resistance and increase cardiovascular risk factors. Sep,Snores (ICD-10 - R06.83) Sep,OSA (obstructive sleep apnea) (ICD-10 - G47.33)Attention to sleep hygiene: Sleep at least 6 [...] with PCP if no increased feelings of restfulness/vigilance during awake hours. Might necessitate sleep adjunct.. Encouragevigilance to CPAP Sep,Vitamin D deficiency (ICD-10 - E55.9) Sep,Hypertriglyceridemia (ICD-10 - E78.1) Sep,Fatigue (ICD-10 - R53.83) Sep,OtherI have spent 30 minutes with this patient and over 50% of the visit was counseling done by myself, Moira NICHOLS. [employer] Other 03-28-2023 Evaluation note* Encounter Date Diagnosis Assessment Notes Treatment Notes Treatment Clinical Notes Jun, Obesity (ICD-10 - E66.9) first sent wrong diagnosis code, then sent to non preferred pharmacy. [facility] to [facility]. Jun,MI 40.0-44.9, adult (ICD-10 - Z68.41) Jun,Hypothyroid (ICD-10 - E03.9)Interval surveillance and optimization Jun,iabetes type 2, uncontrolled (ICD-10 - E11.65)Discussed how diabetes II delayed or avoided with [...] 30 minutes most days of the week. Jun,nxiety and depression (ICD-10 - F41.8)Consideration mental health to assure proper goal setting and strategies for success Jun,Heartburn (ICD-10 - R12)Discussed possibility of worsening of reflux with GLP-1 medications. Weight loss can also contribute to resolution of Jun,Hyperlipidemia (ICD-10 - E78.5)Discussed risks of elevated LDL. Encouraged intake of foods low in saturated fat as well as supplements (jamel, fish oil). Discussed LDL contributing to insulin resistance and increase cardiovascular risk factors. Jun,Snores (ICD-10 - R06.83) Jun,OSA (obstructive sleep apnea) (ICD-10 - G47.33)Attention to sleep hygiene: Sleep at least 6 [...] with PCP if no increased feelings of restfulness/vigilance during awake hours. Might necessitate sleep adjunct.. Encouragevigilance to CPAP Jun,Vitamin D deficiency (ICD-10 - E55.9) Jun,Hypertriglyceridemia (ICD-10 - E78.1) Jun,Fatigue (ICD-10 - R53.83) Jun,OtherI have spent 30 minutes with this patient and over 50% of the visit was counseling done by myself, Moira NICHOLS. [employer] Other 02-14-2023 Evaluation note* Encounter Date Diagnosis Assessment Notes Treatment Notes Treatment Clinical Notes Jun, Obesity, unspecified classification, unspecified obesity type, unspecified whether serious comorbidity present (ICD-10 - E66.9) Jun,MI 40.0-44.9, adult (ICD-10 - Z68.41) Jun,OtherSummary of Visit: (A) Presentation of Plate Method discussed (B) Sample meal ideas reviewed (C) exercise recommendations reviewed Patient set the following goals: - patient set personal goal using given handout. [employer] Other 01-31-2023 Evaluation note* Encounter Date Diagnosis Assessment Notes Treatment Notes Treatment Clinical Notes May, Obesity (ICD-10 - E66.9) first sent wrong diagnosis code, then sent to non preferred pharmacy. Sent to [facility] preferred. May,MI 40.0-44.9, adult (ICD-10 - Z68.41) May,Hypothyroid (ICD-10 - E03.9)Interval surveillance and optimization May,iabetes type 2, uncontrolled (ICD-10 - E11.65)Discussed how diabetes II delayed or avoided with [...] 30 minutes most days of the week. May,nxiety and depression (ICD-10 - F41.8)Consideration mental health to assure proper goal setting and strategies for success May,Heartburn (ICD-10 - R12)Discussed possibility of worsening of reflux with GLP-1 medications. Weight loss can also contribute to resolution of May,Hyperlipidemia (ICD-10 - E78.5)Discussed risks of elevated LDL. Encouraged intake of foods low in saturated fat as well as supplements (jamel, fish oil). Discussed LDL contributing to insulin resistance and increase cardiovascular risk factors. May,Snores (ICD-10 - R06.83) May,OSA (obstructive sleep apnea) (ICD-10 - G47.33)Attention to sleep hygiene: Sleep at least 6 [...] with PCP if no increased feelings of restfulness/vigilance during awake hours. Might necessitate sleep adjunct.. Encouragevigilance to CPAP May,OtherI have spent 30 minutes with this patient and over 50% of the visit was counseling done by myself, Moira NICHOLS. [employer] Other 01-31-2023 History of Present illness Narrative* [...] * 5. Follow-up after testing is done [facility] [address] DO Work Phone: 1(939) 390-403511-02-2021 History of Present illness NarrativeThis patient presented [...] and is very pleased with the results. [facility] Work Phone: 1(397) 412-470511-02-2021 History of Present illness NarrativeThis patient presented [...] today for follow-up. Her breathing has remained stable.ZS-Qlpwgnlcwnrieb-Tgzkvvoc Work Phone: chief complaint Narrative - Yoandy VILLAFANA is being seen for a consultation for LVH.[facility] [address] DO Work Phone: Evaluation + Plan note No data available for this section [facility] Future Appointments Appointment Date:06/14/2023 02:20:00 PM Scheduled Provider:Mayito YANG MD Location:[facility] Appointment Type:[address] General Surgery [place] Evaluation noteNo [facility] [facility] Other Evaluation note* Diagnosis Tracheal stenosis- Primary Other diseases of trachea and bronchus documented in this encounter [facility] Work Phone: Evaluation noteNo assessment information available [facility] Work Phone: evaluation note* Diagnosis Onset Date Resolution Status Abnormal CT of the abdomen acuteAcid refluxacuteAdrenal abnormalityacuteAnxiety and depressionacuteBipolar disorderacuteBMI 40.0-44.9, adultacuteDiabetes type 2, uncontrolledacuteFatigue acuteFatty pancreasacuteHyperlipidemiaacuteHypertriglyceridemiaacuteHypothyroid acuteObesityacuteOSA (obstructive sleep apnea)acuteSnoresacuteVitamin D deficiencyacute [facility] Work Phone: evaluation note* Diagnosis Onset Date Resolution Status Abnormal CT of the abdomen acuteAcid refluxacuteAdrenal abnormalityacuteAnxiety and depressionacuteBipolar disorderacuteBMI 40.0-44.9, adultacuteDiabetes type 2, uncontrolledacuteFatigue acuteFatty pancreasacuteHyperlipidemiaacuteHypertriglyceridemiaacuteHypothyroid acuteObesityacuteOSA (obstructive sleep apnea)acuteSnoresacuteVitamin D deficiencyacuteAllergiesacuteSore throatnoneactive [facility] Work Phone: evaluation note* Diagnosis Onset Date Resolution Status Abnormal CT of the abdomen acuteAcid refluxacuteAdrenal abnormalityacuteAnxiety and depressionacuteBipolar disorderacuteBMI 40.0-44.9, adultacuteDiabetes type 2, uncontrolledacuteFatigue acuteFatty pancreasacuteHyperlipidemiaacuteHypertriglyceridemiaacuteHypothyroid acuteObesityacuteOSA (obstructive sleep apnea)acuteSnoresacuteVitamin D deficiencyacuteAllergiesacuteSore throatnoneactiveAbnormal CT of the abdomen acuteAcid refluxacuteAdrenal abnormalityacuteAnxiety and depressionacuteBipolar disorderacuteBMI 40.0-44.9, adultacuteDiabetes type 2, uncontrolledacuteFatigue acuteFatty pancreasacuteHyperlipidemiaacuteHypertriglyceridemiaacuteHypothyroid acuteObesityacuteOSA (obstructive sleep apnea)acuteSnoresacuteVitamin D deficiencyacute [facility] Work Phone: Evaluation note* Diagnosis Onset Date Resolution Status Allergies acuteSore throatnoneactiveAbnormal CT of the abdomenacuteAcid refluxacuteAdrenal abnormalityacuteAnxiety and depressionacuteBipolar disorderacuteBMI 40.0-44.9, adultacuteDiabetes type 2, uncontrolledacuteFatigueacuteFatty pancreasacute HyperlipidemiaacuteHypertriglyceridemiaacuteHypothyroidacuteObesityacuteOSA (obstructive sleep apnea)acuteSnoresacuteVitamin D deficiencyacute [facility] Work Phone: Evaluation note* Diagnosis Medicare annual [...] specified complication (CMS/HCC) [facility] Diagnosis Tracheal stenosis- Primary Other diseases of trachea and bronchus Gastroesophageal reflux disease without esophagitis Esophageal reflux documented in this encounter [facility] Work Phone: Evaluation note* Diagnosis Adrenal nodule- Primary Benign neoplasm of adrenal gland Hypothyroidism, unspecified type Type 2 diabetes mellitus without complication, without long-term current use of insulin (Multi) documented in this encounter [facility] Work Phone: Evaluation note* Diagnosis Adrenal nodule- Primary Benign neoplasm of adrenal gland Hypothyroidism, unspecified type Type 2 diabetes mellitus without complication, without long-term current use of insulin Hypothyroidism, unspecified type- Primary Class 3 severe obesity with serious comorbidity and body mass index (BMI) of 40.0 to 44.9 in adult,unspecified obesity type Adrenal nodule Benign neoplasm of adrenal gland Type 2 diabetes mellitus without complication, without long-term current use of insulin documented in this encounter [facility] Work Phone: Evaluation note* Diagnosis Adrenal nodule- Primary Benign neoplasm of adrenal gland Hypothyroidism, unspecified type Type 2 diabetes mellitus without complication, without long-term current use of insulin Hypothyroidism, unspecified type- Primary Class 3 severe obesity with serious comorbidity and body mass index (BMI) of 40.0 to 44.9 in adult,unspecified obesity type Adrenal nodule Benign neoplasm of adrenal gland Type 2 diabetes mellitus without complication, without long-term current use of insulin Encounter for screening for cardiovascular disorders Mixed hyperlipidemia Type 2 diabetes mellitus without complications Cardiomegaly Other ill-defined heart diseases documented in this encounter [facility] Work Phone: Evaluation note* Diagnosis Right ear impacted cerumen- Primary Impacted cerumen Dizziness Dizziness and giddiness Other infective acute otitis externa of right ear documented in this encounter [facility]* Diagnosis BiPAP (biphasic positive airway pressure) dependence- Primary Dependence on other enabling machine documented in this encounter [facility]* Diagnosis Medicare annual wellness visit, [...] Morbid obesity with BMI of 40.0-44.9, adult ([facility]) Thyrotoxicosis without thyroid storm, unspecified thyrotoxicosis type Vitamin D deficiency Allergic rhinitis due to pollen, unspecified seasonality Anxiety and depression Screening for malignant neoplasm of colon Bipolar 1 disorder, depressed, partial remission ([facility]) Estrogen deficiency Other ovarian failure History of basal cell carcinoma Personal history of other malignant neoplasm of skin Lipoprotein deficiency disorder Lipoprotein deficiencies Mixed hyperlipidemia [facility] this [facility] Narrative - Reported* Type Description Date Medical History thyroid disease Medical HistoryCholesterolMedical HistorydepressionMedical Historyacid reflux Medical HistorybipolarSurgical Historybreast reductionSurgical Historythroat surgerySurgical HistoryherniaHospitalization Historysee surgical hx [facility] [employer] Other Hisjzjh general Narrative - Reported* Type Description Date Medical History thyroid disease Medical HistoryCholesterolMedical HistorydepressionMedical Historyacid reflux Medical HistorybipolarSurgical Historybreast reductionSurgical Historythroat surgerySurgical HistoryherniaHospitalization Historysee surgical hx [facility] [employer] Other Hisejje general Narrative - Reported* Type Description Date Medical History thyroid disease Medical HistoryCholesterolMedical HistorydepressionMedical Historyacid reflux Medical HistorybipolarMedical Historygall bladder diseaseSurgical Historybreast reductionSurgical Historythroat surgerySurgical HistoryherniaSurgical History [id number] Historysee surgical hxHospitalization History[facility] [employer] Other History of Present illness NarrativeThis patient [...] time it feels like it is somewhat mabzxuvoAY-Pfbelnzrpqbjej-Nyxkanvt Work Phone: Hospital Discharge instructions No data available for this section [facility] Additional Instructions Follow-up with your primary care doctor Return [facility] ED if develop worsening symptoms or [facility] Work Phone: Progress note No data available for this section [facility] [place] Reason for referral (narrative)No reason for referral information availableK[facility] Work Phone: Reason for visit Narrative* Imaging (Routine) - AuthorizedSpecialtyDiagnoses / ProceduresReferred By ContactReferred To ContactRadiology Diagnoses Encounter for screening for cardiovascular disorders Mixed hyperlipidemia Type 2 diabetes mellitus without complications Cardiomegaly Other ill-defined heart diseases Procedures CT cardiac scoring wo IV contrast Cristina Hubbard, ELECTRICAL FITTER-PSYCHIATRIC CLINICAL NURSE SPECIALIST [address] [place] [address] Phone: tel: fax: Referral IDStatusReasonStart DateExpiration DateVisits RequestedVisits [id number] Perform Procedure [facility] Work Phone: Family History No Family History Records Found Mother Name Dates Details Family history of malignant neoplasm of breast(V16.3, Z80.3) Status:Active Father Name Dates Details Family history of diabetes m ellitus(V18.0, Z83.3) Status:ActiveFamily history of congestive heart failure(V17.49, Z82.49) Status:ActiveFamily history of Status:Active Brother Name Dates Details Family history of malignant neoplasm of kidney(V16.51, Z80.51) Status:Active Mother Name Dates Details Family history of malignant neoplasm of breast(V16.3, Z80.3) Status:Active Father Name Dates Details Family history of diabetes m ellitus(V18.0, Z83.3) Status:ActiveFamily history of congestive heart failure(V17.49, Z82.49) Status:ActiveFamily history of Status:Active Brother Name Dates Details Family history of malignant neoplasm of kidney(V16.51, Z80.51) Status:Active Mother Name Dates Details Family history of malignant neoplasm of breast(V16.3, Z80.3) Status:Active Father Name Dates Details Family history of diabetes m ellitus(V18.0, Z83.3) Status:ActiveFamily history of congestive heart failure(V17.49, Z82.49) Status:ActiveFamily history of (799.9, R99) Status:Active Brother Name Dates Details Family history of malignant neoplasm of kidney(V16.51, Z80.51) Status:Active Mother Name Dates Details Family history of malignant neoplasm of breast(V16.3, Z80.3) Status:Active Father Name Dates Details Family history of diabetes m ellitus(V18.0, Z83.3) Status:ActiveFamily history of congestive heart failure(V17.49, Z82.49) Status:ActiveFamily history of (799.9, R99) Status:Active Brother Name Dates Details Family history of malignant neoplasm of kidney(V16.51, Z80.51) Status:Active Unknown Family Member Name Dates Details Family history of malignant neoplasm of breast: Mother(V16.3, Z80.3) Status:ActiveFamily history of malignant neoplasm of kidney: Brother(V16.51, Z80.51) Status:ActiveFamily history of diabetes mellitus: Father(V18.0, Z83.3) Status:ActiveFamily history of congestive heart failure: Father(V17.49, Z82.49) Status:ActiveDeceased: Father Status:Active Unknown Family Member Name Dates Details Family history of malignant neoplasm of breast: Mother(V16.3, Z80.3) Status:ActiveFamily history of malignant neoplasm of kidney: Brother(V16.51, Z80.51) Status:ActiveFamily history of diabetes mellitus: Father(V18.0, Z83.3) Status:ActiveFamily history of congestive heart failure: Father(V17.49, Z82.49) Status:ActiveDeceased: Father Status:Active Unknown Family Member Name Dates Details Family history of malignant neoplasm of breast: Mother(V16.3, Z80.3) Status:ActiveFamily history of malignant neoplasm of kidney: Brother(V16.51, Z80.51) Status:ActiveFamily history of diabetes mellitus: Father(V18.0, Z83.3) Status:ActiveFamily history of congestive heart failure: Father(V17.49, Z82.49) Status:ActiveDeceased: Father Status:Active Unknown Family Member Name Dates Details Family history of malignant neoplasm of breast: Mother(V16.3, Z80.3) Status:ActiveFamily history of malignant neoplasm of kidney: Brother(V16.51, Z80.51) Status:ActiveFamily history of diabetes mellitus: Father(V18.0, Z83.3) Status:ActiveFamily history of congestive heart failure: Father(V17.49, Z82.49) Status:ActiveDeceased: Father Status:Active Unknown Family Member Name Dates Details Family history of malignant neoplasm of breast: Mother(V16.3, Z80.3) Status:ActiveFamily history of malignant neoplasm of kidney: Brother(V16.51, Z80.51) Status:ActiveFamily history of diabetes mellitus: Father(V18.0, Z83.3) Status:ActiveFamily history of congestive heart failure: Father(V17.49, Z82.49) Status:ActiveDeceased: Father Status:Active Unknown Family Member Name Dates Details Family history of malignant neoplasm of breast: Mother(V16.3, Z80.3) Status:ActiveFamily history of malignant neoplasm of kidney: Brother(V16.51, Z80.51) Status:ActiveFamily history of diabetes mellitus: Father(V18.0, Z83.3) Status:ActiveFamily history of congestive heart failure: Father(V17.49, Z82.49) Status:ActiveDeceased: Father Status:Active Unknown Family Member Name Dates Details Family history of malignant neoplasm of breast: Mother(V16.3, Z80.3) Status:ActiveFamily history of malignant neoplasm of kidney: Brother(V16.51, Z80.51) Status:ActiveFamily history of diabetes mellitus: Father(V18.0, Z83.3) Status:ActiveFamily history of congestive heart failure: Father(V17.49, Z82.49) Status:ActiveDeceased: Father Status:Active Unknown Family Member Name Dates Details Family history of malignant neoplasm of breast: Mother(V16.3, Z80.3) Status:ActiveFamily history of malignant neoplasm of kidney: Brother(V16.51, Z80.51) Status:ActiveFamily history of diabetes mellitus: Father(V18.0, Z83.3) Status:ActiveFamily history of congestive heart failure: Father(V17.49, Z82.49) Status:ActiveDeceased: Father Status:Active Unknown Family Member Name Dates Details Family history of malignant neoplasm of breast: Mother(V16.3, Z80.3) Status:ActiveFamily history of malignant neoplasm of kidney: Brother(V16.51, Z80.51) Status:ActiveFamily history of diabetes mellitus: Father(V18.0, Z83.3) Status:ActiveFamily history of congestive heart failure: Father(V17.49, Z82.49) Status:ActiveDeceased: Father Status:Active Unknown Family Member Name Dates Details Family history of malignant neoplasm of breast: Mother(V16.3, Z80.3) Status:ActiveFamily history of malignant neoplasm of kidney: Brother(V16.51, Z80.51) Status:ActiveFamily history of congestive heart failure: Father(V17.49, Z82.49) Status:ActiveDeceased: Father Status:ActiveFamily history of diabetes mellitus: Father, Sister(V18.0, Z83.3) Status:Active Unknown Family Member Name Dates Details Family history of malignant neoplasm of breast: Mother(V16.3, Z80.3) Status:ActiveFamily history of malignant neoplasm of kidney: Brother(V16.51, Z80.51) Status:ActiveFamily history of congestive heart failure: Father(V17.49, Z82.49) Status:ActiveDeceased: Father Status:ActiveFamily history of diabetes mellitus: Father, Sister(V18.0, Z83.3) Status:Active Unknown Family Member Name Dates Details Family history of malignant neoplasm of breast: Mother(V16.3, Z80.3) Status:ActiveFamily history of malignant neoplasm of kidney: Brother(V16.51, Z80.51) Status:ActiveFamily history of congestive heart failure: Father(V17.49, Z82.49) Status:ActiveDeceased: Father Status:ActiveFamily history of diabetes mellitus: Father, Sister(V18.0, Z83.3) Status:Active Relationship Condition Age at Onset Recorded Date/T lelo father Diabetes mellitus Unknown DeceasedUnknownfamily memberDeceasedUnknownNot SpecifiedDiabetes mellitusUnknown Family history of mental disorderUnknown Relationship Condition Age at Onset Recorded Date/T lelo father Diabetes mellitus Unknown DeceasedUnknownfamily memberDeceasedUnknownNot SpecifiedFamily history of mental disorderUnknownMalignant neoplasmUnknownbrotherDiabetes mellitusUnknownbrother Malignant neoplasmUnknown Relationship Condition Age at Onset Recorded Date/T lelo father Diabetes mellitus Unknown DeceasedUnknownfamily memberDeceasedUnknownNot SpecifiedFamily history of mental disorderUnknownMalignant neoplasmUnknownbrotherDiabetes mellitusUnknownbrother Malignant neoplasmUnknownMalignant neoplasm of kidneyUnknown Relationship Condition Age at Onset Recorded Date/T lelo father Diabetes mellitus Unknown DeceasedUnknownfamily memberDeceasedUnknownmotherFamily history of mental disorderUnknownMalignant neoplasmUnknownbrotherDiabetes mellitusUnknownbrother Malignant neoplasmUnknownMalignant neoplasm of kidneyUnknown Relationship Condition Age at Onset Recorded Date/T lelo father Diabetes mellitus Unknown DeceasedUnknownHeart diseaseUnknownfamily memberDeceasedUnknownmotherFamily history of mental disorderUnknownMalignant neoplasmUnknownbrotherDiabetes mellitusUnknownbrotherMalignant neoplasmUnknownMalignant neoplasm of kidney Unknown Chief Complaint Follow-up [...] 3 Fatty pancreas (K86. 89) Referral Organization [facility] Referring Provider First Name Lilliam Referring Provider Last Name Guerita Referring Provider Specialty Nurse Pract itionechani Referred Organization Unknown Facility Referred Provider Specialty [...] WMN f/u e11.9 8-10 week f/u WMN f/uReason for VisitAllergies Sore throat Abnormal CT of the abdomen Acid reflux Adrenal abnormality Anxiety and depression Bipolar disorder BMI 40.0-44.9, adult Diabetes type 2, uncontrolled Fatigue Fatty pancreas Hyperlipidemia Hypertriglyceridemia Hypothyroid Obesity RYANNE (obstructive sleep apnea) Snores Vitamin D deficiency Chief Complaint left arm pain Congestion, sore throat WMN f/uReason for VisitAbnormal CT of the abdomen Acid reflux Adrenal [...] Chief Complaint left arm pain Congestion, sore throatReason for VisitAbnormal CT of the abdomen Acid reflux Adrenal abnormality Anxiety and depression Bipolar disorder BMI 40.0-44.9, adult Diabetes type 2, uncontrolled Fatigue Fatty pancreas Hyperlipidemia Hypertriglyceridemia Hypothyroid Obesity RYANNE (obstructive sleep apnea) Snores Vitamin D deficiency Allergies Sore throat Chief Complaint Follow Up left arm painReason for VisitAbnormal CT of the abdomen Acid reflux Adrenal [...] section and content) DATE CREATED AUTHOR 06/02/2022 [facility] DATE CREATED AUTHOR AUTHOR'S ORGANIZ ATION 06/02/2022 [employer] DATE CREATED AUTHOR AUTHOR'S ORGANIZ ATION 09/09/2022 [facility] DATE CREATED AUTHOR AUTHOR'S ORGANIZ ATION 06/10/2023 [facility] DATE CREATED AUTHOR AUTHOR'S ORGANIZ ATION 08/28/2024 [facility] DATE CREATED AUTHOR AUTHOR'S ORGANIZ ATION 02/03/2025 [facility] DATE CREATED AUTHOR AUTHOR'S ORGANIZ ATION 02/09/2025 [facility] DATE CREATED AUTHOR AUTHOR'S ORGANIZ ATION 02/27/2025 [facility] REASON FOR VISIT (unrecogniz ed section and content) ReasonCommentsFollow-upReasonCommentsMedicare Annual Wellness Visit Subsequent Med RefillMetformin, levothyroxine,simvastain--[facility] bellReasonCommentsDiabetes ReasonCommentsDiabetesReasonCommentsSleep ApneaNeeding notes for apnea supplies ReasonOnset DateCommentsMed Fgkuus8310/09/2024ReasonCommentsMedicare Annual Wellness Visit SubsequentMed RefillSimvastatin Care Teams (unrecognized sec tion and content) Team Status: Active Member Role Status Melvin Hilton II MD Primary Care Provider Active Team Status: Active Member Role Status Melvin Hilton II MD Primary Care Provider Active Start: October 09, 2024 Ben Romero ProviderActiveStart: October 09, 2024 Team Status: Inactive Member Role Status Melvin Hilton II MD Primary Care Provider Active Start: November 07, 2024 End: November 07, 2024Martha Pineda ProviderActiveStart: November 07, 2024 End: November 07, 2024 Team Status: Inactive Member Role Status Melvin Hilton II MD Primary Care Provider Active Start: December 13, 2024 End: December 13, 2024Ben Edgar ProviderActiveStart: December 13, 2024 End: December 13, 2024 Team Status: Inactive Member Role Status Melvin Hilton II MD Primary Care Provider Active Start: December 19, 2024 End: December 19LLOYD Woodruffttending ProviderActiveStart: December 19, 2024 End: December 19, 2024 Team Status: Inactive Member Role Status Melvin Hilton II MD Primary Care Provider Active Start: September 19, 2024 End: September 19, 2024Deelli Schroederly , APRNAttending ProviderActiveStart: September 19, 2024 End: September 19, 2024 Team Status: Active Member Role Status Melvin Hilton II MD Primary Care Provider Active Start: July 03, 2024 Ben Wasserman MDAttending ProviderActiveStart: July 03, 2024 Team Status: Inactive Member Role Status Melvin Hilton II MD Primary Care Provider Active Start: July 04, 2024 End: July 04, 2024Lilliam Schroederly , APRNAttending ProviderActiveStart: July 04, 2024 End: July 04, 2024 Team Status: Inactive Member Role Status Melvin Hilton II MD Primary Care Provider Active Start: July 05, 2023 End: July 04jacobo Shultz RD LDAttending ProviderActiveStart: July 05, 2023 End: July 05, 2023 Team Status: Inactive Member Role Status Melvin Hilton II MD Primary Care Provider Active Start: August 06, 2023 End: August 06, 2023Eliezer Adamson ProviderActiveStart: August 06, 2023 End: August 06, 2023 Team Status: Inactive Member Role Status Melvin Hilton II MD Primary Care Provider Active Start: August 09, 2023 End: August 08juanis Dexter , APRNAttending ProviderActiveStart: August 09, 2023 End: August 09, 2023 Team Status: Active Member Role Status Dates Lilliam Dexter , ELECTRICAL FITTER Attending Provider Active Start: March 15, 2023 Bello Hilton II [facility] ProviderActiveStart: March 15, 2023 Team Status: Inactive Member Role Status Melvin Hilton II MD Primary Care Provider Active Start: May 16, 2023 End: May 16, 2023Mayito Yang MD FACSAttending ProviderActiveStart: May 16, 2023 End: May 16, 2023 Team Status: Active Member Role Status Melvin Hilton II MD Primary Care Provid er, Attending Provider Active Start: May 16, 2023 Team Status: Active Member Role Status Melvin Hilton II MD Primary Care Provid er, Attending Provider Active Start: May 17, 2023 Team Status: Active Member Role Status Dates iLlliam Dexter , ELECTRICAL FITTER Attending Provider Active Start: June 07, 2023 Bello Hilton II [facility] ProviderActiveStart: June 07, 2023 Team Status: Active Member Role Status Dates Bello Hilton II MD Primary Care Provider Active Start: June 14, 2023 Ben Wasserman , MDAttending ProviderActiveStart: June 14, 2023 Team Status: Inactive Member Role Status Dates Bello Hilton II MD Primary Care Provider Active Start: October 05, 2023 End: October 04jacobo Jones , APRNAttending ProviderActiveStart: October 05, 2023 End: October 05, 2023 Team Status: Inactive Member Role Status Dates Bello Hilton II MD Primary Care Provider Active Start: October 19, 2023 End: October 18ebjose g Dexter , APRNAttending ProviderActiveStart: October 19, 2023 End: October 19, 2023 Team Status: Inactive Member Role Status Dates Bello Hilton II MD Primary Care Provider Active Start: October 05, 2023 End: October 04jacobo Jones - , APRNAttending ProviderActiveStart: October 05, 2023 End: October 05, 2023 Team Status: Active Member Role Status Dates Bello Hilton II MD Primary Care Provider Active Start: October 25, 2023 Ben Wasserman , MDAttending ProviderActiveStart: October 25, 2023 Team Status: Inactive Member Role Status Dates Bello Hilton II MD Primary Care Provider Active Start: December 20, 2023 End: December 19ebjose g Dexter , APRNAttending ProviderActiveStart: December 20, 2023 End: December 20, 2023Team MemberRelationshipSpecialtyStart DateEnd Date Bello Hilton MD [address] [facility] [address] [place] [address] PCP - GeneralInternal Medicine09/21/22Team MemberRelationshipSpecialtyStart Date End Date Bello Hilton MD [address] [facility] [address] [place] [address] PCP - GeneralInternal Medicine09/21/22Team MemberRelationshipSpecialtyStart Date End Date Bello Hilton MD [address] [place] [address] [place] [address] PCP - GeneralInternal Ddkrgeca52/22/24Team MemberRelationshipSpecialtyStart Date End Date Bello Hilton MD [address] [place] [address] [place] [address] PCP - GeneralInternal Medicine09/21/22am MemberRelationshipSpecialtyStart Date End Date Bello Hilton MD [address] [place] [address] [place] [address] PCP - GeneralInternal Medicine09/21/22Team MemberRelationshipSpecialtyStart Date End Date Bello Hilton MD [address] [place] [address] [place] [address] PCP - GeneralInternal Wtuqoscz48/22/24Team MemberRelationshipSpecialtyStart Date End Date Bello Hilton MD [address] [place] [address] [place] [address] PCP - GeneralInternal Yopnaucf40/22/24Team MemberRelationshipSpecialtyStart Date End Date Bello Hilton MD [address] [place] [address] [place] [address] PCP - GeneralInternal Phfsuxpx76/22/24Team MemberRelationshipSpecialtyStart Date End Date Bello Hilton MD [address] [place] [address] [place] [address] PCP - GeneralInternal Medicine09/21/22 Cristina Hubbard, HR SPECIALIST [address] [place] [address] [facility] - [facility]06/08/24Te MemberRelationshipSpecialtyStart DateEnd Bello Hilton MD [address] [place] [address] PCP - [facility]09/21/22 Cristina Hubbard, HR SPECIALIST [address] [place] [address] [facility] - [facility]06/08/24Te MemberRelationshipSpecialtyStart DateEnd Bello Hilton MD [address] [facility] [address] [place] [address] PCP - [facility]09/21/22 Cristina Hubbard, HR SPECIALIST [address] [place] [address] [facility]06/08/24Te MemberRelationshipSpecialtyStart DateEnd Bello Hilton MD [address] [place] [address] [facility]09/21/22 Cristina Hubbard, HR SPECIALIST [address] [place] [address] [facility]06/08/24Te MemberRelationshipSpecialtyStart DateEnd Date Bello Hilton MD [address] [place] [address] [facility] - [facility]09/21/22 Cristina Hubbard, HR SPECIALIST [address] [facility] [address] [place] [address] [facility]06/08/24 Team Status: Active Member Role Status Dates Bello Hilton II MD Primary Care Provider Active Start: December 13, 2024 Caryl Meléndez MIHIRchiquita ProviderActiveStart: December 13, 2024 Team Status: Inactive Member Role Status Dates Bello Hilton II MD Primary Care Provider Active Start: January 02, 2025 End: January 02, 2025Brianelli Dexter RODRIGOLaliaixareina ProviderActiveStart: January 02, 2025 End: January 02, 2025Team MemberRelationshipSpecialtyStart DateEnd Date Bello Hilton MD [address] [facility] [address] [place] [address] [facility] - [facility]09/21/22 Cristina Hubbard, HR SPECIALIST [address] [facility] [address] [place] [address] [facility]06/08/24Team MemberRelationshipSpecialtyStart DateEnd Date Bello Hilton MD [address] [facility] [address] [place] [address] [facility] - [facility]09/21/22 Cristina Hubbard, HR SPECIALIST [address] [facility] [address] [place] [address] [facility]06/08/24 Goals (unrecognized section and content) Goals may [...] BE BASED ON THE PRIMARY CLINICAL RECORDS. [facility]. provides no warranty or guarantee of the accuracy or completeness of information in this document.
[2025-02-27] MEDS: ALBUTEROL SULFATE 2.5 MG/3 ML VIAL NEB IH (15:43)
[2025-02-27 15:45] VITALS: PULSE 75; O2SAT 95
== END 2025-02-27 15:03 | disposition home or self-care (01) ==
PROVIDERS: PCP Internal Medicine; Visit Provider Internal Medicine
DX: R06.00 Dyspnea, unspecified (principal); R06.02 Shortness of breath; E78.1 Pure hyperglyceridemia
CPT/HCPCS: 94060; 94726; 94729

== ENCOUNTER 2025-04-23 13:01 | Outpatient (OUT) | payer MEDICARE, OTHER, SELFPAY ==
--- OUTSIDE RECORDS SUMMARY | 2025-04-23 13:04 | XMS_ITS | Clinical Summary ---
Author Organization [facility] Address [address] [place] [address], [address] [place] [address] Care Team Providers Care Longitudinal Float Operator Name Role Phone Unavailable Primary Care Provider Unavailabl e Social History Tobacco UseTypesPacks/DayYears UsedDateSmoking Tobacco: Never Assessed CommentsUnknownSex and Gender InformationValueDate RecordedSex Assigned at Not on fileLegal GinGqxbgt37/10/2013 9:17 AM ESTGender IdentityNot on fileSexual OrientationNot on file Plan of Treatment Not on file
--- OUTSIDE RECORDS SUMMARY | 2025-04-23 13:04 | XMS_ITS | Clinical Summary ---
Author Organization [facility] Healthcare Address [address] [place] [address] Care Team Providers Care Eddy Current Inspector Name Role Phone Bello Hilton MD Primary Care Provider [phone] Cristina Shepherd NP Unavailable Allergies No known active allergies Medications MedicationSigDispense [...] mg by mouth Daily as needed for ezhmtpy2303/15/2023ctive omeprazole (PriLOSEC) [address] capsule Take [...] Therapy Supplies (CareTouch CPAP & BIPAP Hose) [facility] Indications:BiPAP (biphasic positive airway pressure) dependence1 Dose at bedtime 1 each /6Active Respiratory Therapy Supplies (Reusable Comfortseal Mask-MED) [facility] Indications:BiPAP (biphasic positive airway pressure) dependence1 Device at bedtime Mirage Activa LT Mask Zow-HYJD-ObsPaq for CPAP 1 each 5Active simvastatin (Zocor) 40 MG tablet Indications:Mixed hyperlipidemiaTake 1 tablet (40 mg) by mouth at bedtime 100 tablet 5Active albuterol HFA (Ventolin HFA) 90 mcg/act inhaler Indications:Restrictive airway diseaseInhale 2 puffs every 6 (six) hours if needed for wheezing 18 g 5Active meclizine (Antivert) 25 MG tablet TAKE 2 TABLETS BY MOUTH IN THE MORNING AND BEFORE BEDTIME FOR 10 DAYS *MAY CAUSE DROWSINESS*5Active budesonide-formoterol (Symbicort) 160-4.5 MCG/ACT inhaler Indications:Restrictive airway diseaseInhale 2 puffs in the morning and 2 puffs before bedtime. Rinse mouth with water after use to reduce aftertaste and incidence of candidiasis. Do not swallow. 6 g 5Active benzonatate (Tessalon) 200 MG capsule Indications:Acute coughTake 1 capsule (200 mg) by mouth 3 (three) times a day as needed for cough for up to 7 days Do not crush or chew. 21 capsule 5Active Active Problems ProblemNoted DateDiagnosed DateRestrictive airway ouwxona6603/14/2025bnormal CT of the ueiantg1203/08/2025bnormal weight gain03/08/20251160Uxhhowbzc02/07/2025 Dependent edema03/08/2025Diabetes mellitus with bpswbhhuylpim83/07/2025Exercise kyjtyzpkbmm66/07/2025History of basal cell bydnraihc55/09/2025nxiety and hlfwzlveki20/05/2025drenal iezhnsgfdsa65/05/2025bnormal electrocardiogram 01/23/20237646Iwokievf70/24/2023Morbid obesity with BMI of 40.0-44.9, adult 01/23/2023Intra-abdominal zzbczeuqhcgsavb98/24/2023Fatty mszbyvjl36/24/2023 Hpmzupngbpec86/24/2023llergic dmgrqwin54/23/2023iPAP (biphasic positive airway pressure) /23/2023ecreased right ventricular systolic function 09/21/2022yspnea on vkhskquo03/23/2023Lipoprotein deficiency qnqfnpho72/23/2023 Lower extremity edema09/21/2022LVH (left ventricular hypertrophy)09/21/2022Mixed qilvurqwdrlvie49/23/2023Esophageal auxxydgno87/23/6506Rzlpykkicuxfvy41/23/2023 Tracheal emmqkrnz59/23/2023Tubular adenoma of colon09/21/2022Vitamin D eufmzbooqp27/11/2023Esophageal jioqai5906/30/2010cquired asltoffzpuvgyf68/07/2008 Bipolar 1 disorder, depressed, partial bzjwufjtd05/07/2008Mitral valve insufficiency and aortic valve nxcjoniv49/07/2008Obstructive sleep apnea 11/06/2007 Resolved Problems ProblemNoted DateDiagnosed DateResolved DateGangrenous mbevsezvkpsmh24/05/2025 09/03/2024Never smoked any ikkfoxndo45asal cell carcinoma (BCC) of right cheekMorbidly obeseType 2 diabetes mellitus without complication, without long-term current use of insulin Encounters DateTypeDepartmentCare LccjMdkivdyybdp81/22/2025[facility] [address] [facility] [address] [place] [address] Bello Hilton MD 04/04/2025bstract [facility] [address] [facility] [address] [place] [address] Bello Hilton MD 03/15/2025Refill [address] [place] [address] Zulma Glaser PA Restrictive airway ilermsw6603/14/2025Refill [facility] [address] [place] [address] Hemmer, Zulma M, PA Restrictive airway wubauny9303/14/2025bstract [facility] [place] [facility] [address] [place] [address] Bello Hilton MD 03/13/2025Telephone [facility] [place] [facility] [address] [place] [address] Zulma Glaser, PA 03/12/2025bstract [facility] [place] [facility] [address] [place] [address] Bello Hilton MD 03/08/2025 9:00 AM ESTOffice Visit [facility] [place] [facility] [address] [place] [address] Zulma Glaser, PA Bilateral impacted cerumen (Primary Dx); Vertigo; Dizziness; Acute dysfunction of left eustachian tube03/08/2025amboo flowsheet [facility] [place] [facility] [address] [place] [address] Zulma Glaser, PA 03/08/20259642Tgradf55/30/2025bstract [facility] [place] [facility] [address] [place] [address] Bello Hilton MD 02/28/2025bstract [facility] [place] [facility] [address] [place] [address] Bello Hilton MD 02/18/2025Orders Only [facility] [place] [facility] [address] [place] [address] Unallocated, Noms MD Orestes 02/18/2025bstract [facility] [place] [facility] [address] [place] [address] Bello Hilton MD 02/08/2025bstract [facility] [place] [facility] [address] [place] [address] Bello Hilton MD 02/07/2025 9:00 AM EDTOffice Visit [facility] [place] [facility] [address] [facility] [address] [place] [address] Zulma Glaser PA Medicare annual wellness visit, [...] Morbid obesity with BMI of 40.0-44.9, adult ([facility]); Thyrotoxicosis without thyroid storm, unspecified thyrotoxicosis type; Vitamin D deficiency; Allergic rhinitis due to pollen, unspecified seasonality; Anxiety and depression; Screening for malignant neoplasm of colon; Bipolar 1 disorder, depressed, partial remission ([facility]); Estrogen deficiency; History of basal cell carcinoma; Lipoprotein deficiency disorder; Mixed hwwsgikazdgnzm12/09/2025amboo flowsheet [facility] [place] [facility] [address] [facility] [address] [place] [address] Zulma Glaser PA 02/07/20251080Bpdhan38/04/2025linisync Result Encounter [facility] External Department Unsolicited Bello Hilton MD 01/29/2025Telephone [facility] [place] [facility] [address] [facility] [address] [place] [address] Bello Hilton MD 01/28/2025bstract [facility] [place] [facility] [address] [facility] [address] [place] [address] Bello Hilton MD 01/22/2025Orders Only [facility] [place] [facility] [address] [facility] [address] [place] [address] Medicare annual wellness visit, subsequent; Estrogen mbozhvczgl69/23/2025Abstract [facility] [place] [facility] [address] [place] [address] Bello Hilton MD from Last 3 Months Immunizations ImmunizationAdministration DatesNext DueModerna SARS-CoV-2 Guolebbwuxb83/10/2023 Tetanus toxoid, efxnjrwv42/31/2015 Family History Medical HistoryRelationNameCommentsDiabetesFatherHeart failureSiblingSister , diagnosed with cancerKidney cancerSiblingCancerSisterHeart failure SisterRelationNameStatusCommentsFatherDeceasedMotherAliveOtherAlivespouseSibling SisterDeceased Social History Tobacco UseTypesPacks/DayYears UsedDateSmoking Tobacco: NeverSmokeless Tobacco: Never Tobacco Cessation:Counseling Given: Not Answered Alcohol UseStandard Drinks/WeekCommentsNever0 (1 standard drink = 0.6 oz pure alcohol)Caffeine intake: nonePHQ-2AnswerDate RecordedPatient Health Questionnaire-2 Kfped270CommentsUnknownSex and Gender InformationValueDate RecordedSex Assigned at BirthNot on fileLegal SexFemale 07/14/2022 7:24 PM EDTGender IdentityNot on fileSexual OrientationNot on file Last Filed Vital Signs Vital SignReadingTime TakenCommentsBlood Frtpwlod085/7203/08/2025 9:11 AM EST Zdtmq941603/08/2025 9:11 AM TKBCinznrzpsmr67.2 ??C (99 ??F)07/22/2023 9:04 AM EDT Respiratory Eywy251305/08/2024 9:11 AM ESTOxygen Benznpkxad70%03/08/2025 9:11 AM ESTInhaled Oxygen Concentration--Ihkpye051 kg (264 lb 12.8 oz)03/08/2025 9:11 AM RMIVngmln660.1 cm (5' 5 )03/08/2025 9:11 AM ESTBody Mass Index44.0703/08/2025 9:11 AM EST Plan of Treatment Health MaintenanceDue DateLast DoneCommentsCT Dowzjmlcdluh20/01/1958FIT-DNA 1955FIT1955FOBT1955 4778Nbkdquwdsorof45/01/1958Pneumococcal Vaccine: 65+ Years (1 of 2 - PCV)05/02/19768894Lzglxobjyhw52 Colorectal Cancer Shiexrfgi24/15/2024Diabetes: Retinopathy Swhluarsj99/26/2025 01/25/2023, 3Diabetes: Hemoglobin A1C, 04/10/2024, 04/10/2024, Additional history qheegmIosiskcfd50, 05/11/2023, 05/11/2023, Additional history existsInfluenza Vaccine (#1)10/29/2025Postponed from 12/31/2024 (Patient Refused)Diabetes: Urine Protein Lssqqgjdr45/04/2026 02/02/2025, 02/15/2024, 02/03/2024, Additional history existsMedicare Annual Wellness (AWV), 02/14/2024, 12/14/2022 Procedures Procedure NamePriorityDate/TimeAssociated DiagnosisCommentsPR REMOVAL IMPACTED CERUMEN INSTRUMENTATION XEEXFCHnexgpn85/07/2025 9:55 AM EST Bilateral impacted cerumen DEXA BONE YCYTGZIVxshfrc20/20/2025 1:23 PM EDTALL LIPID PROFILE (FASTING)Routine 02/02/2025 11:55 AM EDT [facility] CMP (CMP) (FOR REMOTE [facility] USE)Vwgcnjr4302/02/2025 11:55 AM EDT MLR HEMOGLOBIN E9EZjbhtvz61/04/2025 11:55 AM EDT ALL CBC WITH AUTO SYQVUhafisk44/04/2025 11:55 AM EDT TBH MICROALB CREAT RATIO ZCDZAHQnvidod01/04/2025 11:48 AM EDT MM TOMOSYNTHESIS SCREENING BI05/31/2024 4:09 PM EST MICROALBUMIN / CREATININE URINE TQDZQPxxejwu11/16/2024 10:14 AM EDT Medicare annual wellness visit, subsequent Type 2 diabetes mellitus without complication, without long-term current use of insulin (HCC) POCT GLYCATED HEMOGLOBIN, VCPITPmetydv01/15/2024 9:35 AM EDT Medicare annual wellness visit, subsequent Type 2 diabetes mellitus without complication, without long-term current use of insulin (HCC) DIABETIC RETINOPATHY SCREENING - OU - BOTH MUANExehoul92/26/2023 8:39 AM EDT QZMDKFJDHKQCvfyhpm39/15/2019 12:00 PM EDT from Last 3 Months or Most Recently Relevant to Health Maintenance Results * PA REMOVAL IMPACTED CERUMEN INSTRUMENTATION UNILAT (03/08/2025 9:55 AM EST) Narrative Zulma Glaser PA - 03/08/2025 9:55 AM EST SAMANTHA Bañuelos 03/08/2025 10:43 AM Ear Cerumen Removal Date/Time: 03/08/2025 9:55 AM Performed by: SAMANTHA Bañuelos Authorized by: SAMANTHA Bañuelos ?? Consent: ??Consent obtained: ??Verbal ??Consent given by: ??Patient ??Risks, benefits, and alternatives were discussed: yes ?Risks discussed: ??Bleeding, infection, pain, TM perforation, incomplete removal and dizziness ??Alternatives discussed: ??No treatment, alternative treatment and referral Procedure details: ??Location: ??L ear and R ear ??Procedure type: curette ?Procedure type comment: ??Irrigation with warm water and hydrogen peroxide ??Procedure outcomes: cerumen removed ?? Post-procedure details: ??Inspection: ??Ear canal clear ??Hearing quality: ??Improved ??Procedure completion: ??Tolerated Comments: ?? Continued to have dizziness, but no worsening during or after procedure Authorizing ProviderResult TypeResult StatusZulma Glaser PAIN CLINIC/BEDSIDE ORDERABLESFinal Result * DEXA bone density (02/18/2025 1:23 PM EDT)Anatomical RegionLateralityModality BodyRadiographic Imaging Narrative Authorizing ProviderResult TypeResult StatusNoms Provider Unallocated MDIMG DXA PROCEDURESFinal Result * (ABNORMAL) MLR HEMOGLOBIN A1C (02/02/2025 11:55 AM EDT)ComponentValueRef Range Test MethodAnalysis TimePerformed AtPathologist SignatureGLYCOHEMOGLOBIN A1C 6.4(H)4.5 - 6.2 %TBHComment: ADA RECOMMENDED LIMIT 4.0 - 6.0 ADA THERAPEUTIC TARGET < 7.0 ACTION SUGGESTED > 7.0 ESTIMATED AVERAGE BLVAYEH647vo/dLTBHSpecimen (Source)Anatomical Location / LateralityCollection Method / VolumeCollection TimeReceived Time02/02/2025 11:55 AM EDT1 12:08 PM EDT Narrative [facility]IN[facility]NC - 02/02/2025 12:30 PM EDT Authorizing ProviderResult TypeResult StatusDanijered Hilton MDCLINISYNCFinal ResultPerforming OrganizationAddressCity/State/ZIP CodePhone Number CLINISYNC TB * (ABNORMAL) [facility] CMP (CMP) (FOR [facility] USE) (02/02/2025 11:55 AM EDT) ComponentValueRef RangeTest MethodAnalysis TimePerformed AtPathologist RugumkahpGJQSQN748960 - 145 mmol/LTBHPOTASSIUM4.23.5 - 5.1 mmol/LTBHCHLORIDE 74245 - 107 mmol/LTBHCARBON QYQCMTL35.921.0 - 32.0 mmol/LTBHANION GAP12.3TBH KTTVPZB828(H)74 - 106 mg/dLTBHBLOOD UREA OYMDLMDJ18.07.0 - 18.0 mg/dLTBH CREATININE0.750.55 - 1.02 mg/dLTBHTBH EGFR-AF ANGUILLAN>60>=60 mL/min/1.73m 2 TBHTBH EGFR-NON AF ANGUILLAN>60>=60 mL/min/1.73m 2TBHBUN CREATININE RATIO14.7 TBHCALCIUM9.08.5 - 10.1 mg/dLTBHBILIRUBIN TOTAL0.60.2 - 1.0 mg/dLTBHASPARTATE AMINO PTCZPKCVITS90(L)15 - 37 U/LTBHALANINE RABVEWNPAZYQMAVM2874 - 59 U/LTBH ALKALINE ZJDKNCHCNRW43484 - 116 U/LTBHTOTAL PROTEIN7.66.4 - 8.2 g/dLTBHALBUMIN LEVEL3.73.4 - 5.0 g/dLTBHGLOBULIN3.9g/dLTBHALBUMIN GLOBULIN RATIO0.9TBH Specimen (Source)Anatomical Location / LateralityCollection Method / Volume Collection TimeReceived Time02/02/2025 11:55 AM EDT1 12:08 PM EDT Narrative [facility]IN[facility] - 02/02/2025 12:33 PM EDT Authorizing ProviderResult TypeResult StatusDanijered Hilton MDCLINISYNCFinal ResultPerforming OrganizationAddressCity/State/ZIP CodePhone Number DAMIANNY TB * (ABNORMAL) ALL LIPID PROFILE (FASTING) (02/02/2025 11:55 AM EDT)ComponentValue Ref RangeTest MethodAnalysis TimePerformed AtPathologist Signature VYNFJLUFMETVI743(H)<=150 mg/iMWFGUXPHPGIQRCT871<=200 mg/dLTBHHDL XMNFZYKXWMT70 40 - 60 mg/dLTBHComment: > or =60 mg/dl - LOW CARDIOVASCULAR RISK <40 mg/dl - HIGH CARDIOVASCULAR RISK LDL CHOLESTEROL HCXDFLYUTW32.0mg/dLTBHComment: <100 mg/dl OPTIMAL 100-129 mg/dl NEAR OR ABOVE OPTIMAL 130-159 mg/dl BORDERLINE HIGH 160-189 mg/dl HIGH >190 mg/dl VERY HIGH VLDL XVVFYJUXNTB29.0mg/dLTBHCHOL HDL RATIO3.2TBHComment: 3.3 - 4.4 ?? LOW RISK 4.4 - 7.1 ?? AVERAGE RISK 7.1 - 11.0 ??MODERATE RISK >11.0 HIGH RISK Specimen (Source)Anatomical Location / LateralityCollection Method / Volume Collection TimeReceived Time02/02/2025 11:55 AM EDT1 12:08 PM EDT Narrative CLINISYNC - 02/02/2025 12:40 PM EDT Authorizing ProviderResult TypeResult StatusBello Hilton MDCLINISYNCFinal ResultPerforming OrganizationAddressty/State/ZIP CodePhone Number DAMIANNY TB * (ABNORMAL) ALL CBC WITH AUTO DIFF (02/02/2025 11:55 AM EDT)ComponentValueRef RangeTest MethodAnalysis TimePerformed AtPathologist SignatureTBH WBC7.64.0 - 11.0 10 3/uLTBHTBH RBC4.17(L)4.20 - 5.40 10 6/uLTBHTBH HGB12.512.0 - 16.0 g/dL TBHTBH HCT37.836.0 - 48.0 %TBHT MCV90.681.0 - 99.0 fLTBHTBH MCH30.026.7 - 34.0 pgTBHTBH MCHC33.129.9 - 35.2 g/dLTBHTBH RDW12.811.0 - 15.0 %TBHTBH IJV205 150 - 450 10 3/uLTBHTBH MPV9.89.5 - [...] ResultPerforming OrganizationAddressCity/State/ZIP CodePhone Number CLINISYNC TBH * TBH MICROALB CREAT RATIO RANDOM (02/02/2025 11:48 AM EDT)ComponentValueRef RangeTest MethodAnalysis TimePerformed AtPathologist SignatureMICROALBUMIN URINE RANDOM<1.3<=30.0 mg/dLTBHCREATININE URINE BWRAXM970.9420.00 - 300.00 mg/dLTBHSpecimen (Source)Anatomical Location / LateralityCollection Method / VolumeCollection TimeReceived Time02/02/2025 11:48 AM EDT1 12:08 PM EDT Narrative CLIN[facility]YNC - 02/02/2025 12:30 PM EDT Authorizing ProviderResult TypeResult StatusDakenisha Hilton MDCLINISYNCFinal ResultPerforming OrganizationAddressCity/State/ZIP CodePhone Number CLINISYNC TBH * MM TOMOSYNTHESIS SCREENING BI (05/31/2024 4:09 PM EST)Anatomical Region LateralityModalityOtherSpecimen (Source)Anatomical Location / Laterality Collection Method / VolumeCollection TimeReceived Time05/31/2024 4:09 PM EST Narrative 05/31/2024 4:09 PM EST [facility] ?[address] ? [place] [address] ? Mammography Report ? Signed ? Patient: ADOLFOTINGER,BETTE S ?MR#: [id number] ?? : 1955 ?Acct:[id number] ?? Age/Sex: 69 / F ?ADM Date: 05/30/24 ?? Loc: MAMMO ? Attending DrTyrel HILTON ? Ordering Physician: BELLO HILTON ? Results: ? Date of Service: 05/30/24 ?Follow Up: ? Procedure(s): MM tomosynthesis screening BI ?? Accession Number(s): [id number] ? cc: JUANITA,BELLO ? Patient Name: ? BETTE VILLAFANA ? MR#: [id number] ? : 1955 ? Exam Date: 05/30/2024 [...] at age ??52. ? LOCATION: ? [facility] ? BREAST COMPOSITION: ? The breasts are [...] By: ?Abdias Romeo M.D. ? Signed By: ?/30/25 1609 ? DD/ 1609 ? TD/TT: ? Vascular Ultrasound Technologist: Procedure Note Radiology, Radiologist, MD - 05/31/2024 [place] [address] Mammography Report Signed Patient: BETTE VILLAFANA SMR#: [id number] : 1955cct:[id number] Age/Sex: 69 / FADM Date: 05/30/24 Loc: MAMMO Attending Dr: BELLO HILTON Ordering Physician: BELLO HILTONResults: Date of Service: 05/30/24Follow Up: Procedure(s): MM tomosynthesis screening BI Accession Number(s): [id number] cc: BELLO HILTON Patient Name: BETTE VILLAFANA MR#: [id number] : 1955 Exam Date: 05/30/2024 Ordering Doctor: DR BELLO HILTON M.D. RADIOLOGY REPORT PROCEDURE: MM TOMOSYNTHESIS SCREENING BI COMPARISON: MM TOMOSYNTHESIS SCREENING BI, 05/11/2023. MG MAMM ZSCKHK6O ALFA CAD, 05/11/2022. MG MAMM SCREEN 3D [...] kidney cancer at age 52. LOCATION: [facility] BREAST COMPOSITION: The breasts are almost entirely [...] 16:08 Dictated By: Abdias Romeo M.D. Signed By:05/31/24 1609 DD/ 08 TD/TT: Vascular Ultrasound Technologist: Authorizing ProviderResult TypeResult StatusBello Hilton MDCLINISYNC IMAGING Final Result * Microalbumin / creatinine, urine ratio (02/15/2024 10:14 AM EDT)ComponentValue Ref RangeTest MethodAnalysis TimePerformed AtPathologist SignatureCREATININE, RANDOM DBJJL51778 - 275 mg/dLQUESTALBUMIN, URINE1.3See Note: mg/dLQUEST Comment: [...] specimen obtained by clean catch procedure / Vcjgyks9802/15/2024 10:14 AM EDT1 10:14 AM EDT Narrative Resulting Agency Comment Performing Organization Information ?Site ID: [id number] ?Name: [facility] ?Address: [address] [place] [address], [address] [place] [phone] ?Director: Keyshawn Alfonso MD Authorizing ProviderResult TypeResult StatusCristina Shepherd NPLAB URINE ORDERABLESFinal ResultPerforming OrganizationAddressCity/State/ZIP CodePhone Number [facility] * POCT Glycated hemoglobin, total (02/14/2024 9:35 AM EDT)ComponentValueRef RangeTest MethodAnalysis TimePerformed AtPathologist SignatureHemoglobin A1C 5.9Specimen (Source)Anatomical Location / LateralityCollection Method / Volume Collection TimeReceived GwdnXpqqp17/15/2024 9:35 AM EDT Narrative Authorizing ProviderResult TypeResult StatusCristina Shepherd NPPOINT OF CARE TEST ENTER/EDIT ORDERABLESFinal [...] Narrative 07/14/2018 12:00 PM EDT PERFORMED AT [facility] LOCATION:[id number] polyp-tub.adenoma-repeat 5 years Procedure Note CONVERSION, GENERIC - 09/15/2022 PERFORMED AT [facility] LOCATION:[id number] polyp-tub.adenoma-repeat 5 years Authorizing ProviderResult TypeResult StatusBello Hilton MDENDOSCOPY PROCEDURE ORDERABLESFinal Result from Last 3 Months or Most Recently Relevant to Health Maintenance Insurance Care Teams Team MemberRelationshipSpecialtyStart DateEnd Bello Hilton MD [address] [place] [address] PCP - GeneralInternal Medicine09/21/22 Cristina Shepherd NP [address] [place] [address] PCP - [facility]06/08/24
--- OUTSIDE RECORDS SUMMARY | 2025-04-23 13:04 | XMS_ITS | Clinical Summary ---
Author Organization [facility] Address [address] [place] [address] Phone Care Team Providers Care Plate And Weld Inspector Name Role Phone Bello Hilton MD Primary Care Provider Allergies No known active allergies Medications MedicationSigDispense [...] 1 tablet 04/10/2024ctive Active Problems ProblemNoted DateDiagnosed GgkoPinxkypkz81/24/2023Esophageal tneekz7501/23/2023 Tracheal /24/2023bnormal jvxxikpqytymxuhcj38/24/2023iabetes 01/23/2023 Assessment & Plan (08/03/2024 12:16 PM EDT): Assessment & Plan (04/20/2024 12:03 AM EST): Orders: Hemoglobin A1C; Future Rutfhen2901/23/20231019Alfvvpmijzljcm45/24/9639Cosknqqsmpyivu29/24/2023 Assessment & Plan (08/03/2024 12:16 PM EDT): Orders: Thyroid Stimulating Hormone; Future Thyroxine, Free; Future IGF-I; Future Assessment & Plan (04/20/2024 12:03 AM EST): Orders: Thyroid Stimulating Hormone; Future Thyroid Peroxidase (TPO) Antibody; Future Thyroxine, Free; Future Morbid obesity with BMI of 40.0-44.9, adult01/23/2023Never smoked any substance 01/23/2023OSA (obstructive sleep apnea)01/23/2023 Encounters DateTypeDepartmentCare ZvpkDuoexqsvhof67/25/2025Refill [facility] [address] [place] [address] Ronnie Siddiqui MD Tracheal stenosis; Gastroesophageal reflux disease without esophagitisfrom Last 3 Months Immunizations ImmunizationAdministration DatesNext DuePfizer COVID-19 vaccine, bivalent, age 12 years and older (30 mcg/0.3 mL)05/11/2022 Family History Medical HistoryRelationNameCommentsKidney cancerBrotherDiabetesFatherHeart failureFatherBreast cancerMotherDiabetesSisterRelationNameStatusCommentsBrother FatherDeceasedMotherSister Social History Tobacco UseTypesPacks/DayYears UsedDateSmoking Tobacco: NeverSmokeless Tobacco: Never Tobacco Cessation:Counseling Given: Not Answered PHQ-2AnswerDate RecordedPatient Health Questionnaire-2 Zzzmo5813 CommentsUnknownSex and Gender InformationValueDate RecordedSex Assigned at Not on fileLegal VbuTmbjsd28/25/2022 12:02 PM ESTGender IdentityNot on file Sexual OrientationNot on file Last Filed Vital Signs Vital SignReadingTime TakenCommentsBlood Bvhxfiby266/7407/19/2024 9:44 AM EDT Vjcdv703004/10/2024 8:36 AM PGISpmmitwwxhw86.4 ??C (97.5 ??F)07/19/2024 9:44 AM EDTRespiratory Rate--Oxygen Saturation--Inhaled Oxygen Concentration--Wcblry336 kg (264 lb)07/19/2024 9:44 AM MOEBzroai315.5 cm (5' 4.75 )07/19/2024 9:44 AM EDT Body Mass Index44.27007/19/2024 9:44 AM EDT Plan of Treatment DateTypeDepartmentCare Team (Latest Contact Info)Htvrpdrbcfg68/17/2026 10:30 AM EDTOffice Visit [facility] [address] [place] [phone] [place] [address] Department [place] [address] Health MaintenanceDue DateLast DoneCommentsCT Gpeaprcokbib04/01/1958FIT-DNA (Cologuard)1957FIT1957Medicare Annual Wellness Visit (AWV)1957 Jabkphhpvsqjy51/01/1958MMR Vaccines (1 of 1 - Standard series)1958 Diabetes: Retinopathy Gsehnprgg75/01/1968Hepatitis C Wmwlyltyk88/01/1976 Hepatitis A Vaccines (1 of 2 - Risk 2-dose series)1976Pneumococcal Vaccine (1 of 2 - PCV)1976DTaP/Tdap/Td Vaccines (1 - Tdap)1979RSV High Risk: (Elderly (60+) or Population) (1 - Risk 50-74 years 1-dose series) 2007Zoster Vaccines (1 of 2)2007Hepatitis B Vaccines (1 of 3 - Risk 3-dose series)2017Bone Density Scan05/02/20227121Fodurwktm39/10/2024 05/11/2022, 05/06/2021, 05/05/2021, Additional history existsDiabetes: Hemoglobin A1C/OVID-19 Vaccine (2 - season) Influenza Vaccine (#1)2024Diabetes: Urine Protein Zgqsspxdr94, 06/22/2023Lipid PanelTSH Level, 02/15/20241893Weohywvpbin39Colorectal Cancer Iqikqrqfg06/15/2029HIB VaccinesAged OutNo longer eligible based on patient's [...] / [employer] Hwg 500 Fiber Case [id number] Implanted:Qty: 1 on 03/19/2021 by Ronnie Siddiqui MDJennie [facility] [employer] [facility] [id number] / / Description:Converted from [facility] Acute. Please see archived information for full log information. Additional Information:per bill only jdr 03/28/2021 1456pm Procedures Procedure NamePriorityDate/TimeAssociated DiagnosisCommentsHEMOGLOBIN B8OKspzone 04/10/2024 10:47 AM EST Type 2 diabetes mellitus without complication, without long-term current use of insulin (Multi) KLSJsmdlmi31/10/2024 10:47 AM EST Adrenal nodule Hypothyroidism, unspecified type from Last 3 Months or Most Recently Relevant to Health Maintenance Results * Thyroid Stimulating Hormone (04/10/2024 10:47 AM EST)ComponentValueRef Range Test MethodAnalysis TimePerformed AtPathologist SignatureThyroid Stimulating Hormone3.610.44 - 3.98 mIU/L LAB IMMUNOASSAY METHOD 04/10/2024 1:06 PM [facility] LABSpecimen (Source)Anatomical Location / Laterality Collection Method / VolumeCollection TimeReceived TimeBloodVenous blood specimen / UnknownVenipuncture / Jqpktuz1304/10/2024 10:47 AM EST04/10/2024 10:47 AM EST Narrative [facility] - 04/10/2024 1:06 PM EST TSH testing is performed using different testing methodology at [facility] than at [facility]. Direct result comparisons should only be made within the same method. Authorizing ProviderResult TypeResult StatusRamya Saldana [facility] BLOOD ORDERABLESFinal ResultPerforming OrganizationAddressCity/State/ZIP CodePhone Number [facility] [address] [phone] * (ABNORMAL) Hemoglobin A1C (04/10/2024 10:47 AM EST)ComponentValueRef RangeTest MethodAnalysis TimePerformed AtPathologist SignatureHemoglobin A1C5.9(H)See comment %04/10/2024 1:36 PM [facility] LABEstimated Average Ijvpedu627Uxv Established mg/dL04/10/2024 1:36 PM [facility] LABSpecimen (Source)Anatomical Location / LateralityCollection Method / VolumeCollection TimeReceived Time BloodVenous blood specimen / UnknownVenipuncture / Bxefsam4704/10/2024 10:47 AM EST04/10/2024 10:47 AM EST Narrative [facility] - 04/10/2024 1:36 PM EST Diagnosis of Diabetes-Adults Non-Diabetic: < or = 5.6% Increased risk for developing diabetes: 5.7-6.4% Diagnostic of diabetes: > or = 6.5% Authorizing ProviderResult TypeResult StatusRamya SMITH BLOOD ORDERABLESFinal ResultPerforming OrganizationAddressCity/State/ZIP CodePhone Number [facility] [address] [phone] from Last 3 Months or Most Recently Relevant to Health Maintenance Insurance Care Teams Team MemberRelationshipSpecialtyStart DateEnd Date Bello Hilton MD [address] [facility] [address] [place] [address] PCP - GeneralInternal Rrxutblq47/22/24
--- OUTSIDE RECORDS SUMMARY | 2025-04-23 13:04 | XMS_ITS | Encounter Summary ---
Author Organization [facility] Address [address] [place] [address] Care Team Providers Care School Cafeteria Head Cook Name Role Phone Bello Hilton MD Primary Care Provider [phone] Cristina Shepherd TEACHER ASSISTANT Unavailable [phone] Encounter Details DateTypeDepartmentCare Team (Latest Contact Info)Kfdqjkusshy73/22/2025Telephone [facility] [address] [facility] [address] [place] [address] Bello Hilton MD [address] [place], [place] [id number] Social History Tobacco UseTypesPacks/DayYears UsedDateSmoking Tobacco: NeverSmokeless Tobacco: NeverAlcohol UseStandard Drinks/WeekCommentsNever0 (1 standard drink = 0.6 oz pure alcohol)Caffeine intake: nonePHQ-2AnswerDate RecordedPatient Health Questionnaire-2 Jvkxq71905/15/2024CommentsUnknownSex and Gender InformationValueDate RecordedSex Assigned at BirthNot on fileLegal SexFemale 07/14/2022 7:24 PM EDTGender IdentityNot on fileSexual OrientationNot on file documented as of this encounter Miscellaneous Notes * Telephone Encounter - Christina Mercer MA - 04/22/2025 4:08 PM EST Pt notified * Telephone Encounter - SAMANTHA Bañuelos - 04/22/2025 4:05 PM EST Benzonatate sent in for the cough. Encourage pt to stay hydrated, get plenty of rest. Follow up in the office next week if symptoms have not improved. * Telephone Encounter - Justine Ray - 04/22/2025 1:22 PM EST Patient called stating that they have been coughing for 2x weeks now. They are congested but everything that has come up is clear. They wondered if something could be sent to [facility] [place]. documented in this encounter Plan of Treatment Not on file documented as of this encounter Visit Diagnoses Diagnosis Acute cough- Primary documented in this encounter Additional Health Concerns AssessmentNoted TimePHQ-9 Depression Total Score: 010 8:00 AM EDT documented as of this encounter Care Teams Team MemberRelationshipSpecialtyStart DateEnd Date Bello Hilton MD [address] [facility] [address] [place] [address] PCP - GeneralInternal Medicine09/21/22 Cristina Shepherd NP [address] [place] [address] PCP - ACO Reach06/08/24documented as of this encounter
== END 2025-04-23 13:02 | disposition home or self-care (01) ==
LOC: PST 13:02
PROVIDERS: PCP Internal Medicine; Visit Provider Surgery
DX: Z01.818 Encounter for other preprocedural examination (principal); Z12.11 Encounter for screening for malignant neoplasm of colon

== ENCOUNTER 2025-05-01 07:27 | Day surgery (SDC) | payer MEDICARE, OTHER, SELFPAY ==
--- NOTE | 2025-05-01 | OP_ITS ---
OPERATION DATE: 05/01/2025 PREOPERATIVE DIAGNOSIS: Colorectal screening. Personal history of colon polyps. Last colonoscopy 2019. POSTOPERATIVE DIAGNOSIS: 5 mm sigmoid colon polyp. PROCEDURE: Colonoscopy to cecum. SURGEON: Mayito Salvador M.D. ANESTHESIA: Monitored anesthesia care. ESTIMATED BLOOD LOSS: Less than 1 mL. INDICATIONS AND CONSENT: Patient is a 69-year-old female with personal history of tubular adenomas. Last colonoscopy 2019. She now presents for surveillance colonoscopy. Indications, risks, benefits, alternatives of proceeding with colonoscopy were explained extensively to the patient, including the risks of bleeding, colon perforation or anesthetic complications. All of her questions were answered. Informed consent was obtained. PROCEDURE: Patient brought to the operating room, placed in the left lateral decubitus position. Monitored anesthesia care was provided. Rectal exam was performed which showed no masses or blood. The scope was inserted into the anal canal. Under direct visualization was advanced. With the aid of abdominal compression, it was advanced to the cecum where cecal markings were clearly identified. There was noted to be a fair prep with some liquid and semi-solid stool throughout the colon that was partially irrigated clear. Upon withdrawal of the scope, mucosal surfaces were carefully examined. There were no mass lesions or inflammatory changes. No significant diverticulosis. There was redundancy and a tortuous colon. Within the distal sigmoid, there was noted to be a 5 mm sessile polyp that was removed with cold snare with good hemostasis. Scope was retroflexed in the anal canal. There was no significant hemorrhoidal disease. Scope was then withdrawn. Patient tolerated procedure well, was sent to recovery room in good condition. f/u surveillance colonoscopy should be in 5 years. CC: Bello Hilton M.D. ORESTES
[2025-05-01 07:30] VITALS: BP 149/69; PULSE 82; TEMP 36.2; O2SAT 95; BMI 45.3
--- OUTSIDE RECORDS SUMMARY | 2025-05-01 07:30 | XMS_ITS | Encounter Summary ---
Author Organization [facility] Address [address] [place] [address] Care Team Providers Care District Recruiter Name Role Phone Bello Hilton MD Primary Care Provider [phone] Cristina Shepherd GOLF CART ATTENDANT Unavailable [phone] Encounter Details DateTypeDepartmentCare Team (Latest Contact Info)Hxfmidhzkcs91/23/2025Telephone [facility] [address] [place] [address] Bello Hilton MD [address] [place], [place] [id number] Social History Tobacco UseTypesPacks/DayYears UsedDateSmoking Tobacco: NeverSmokeless Tobacco: NeverAlcohol UseStandard Drinks/WeekCommentsNever0 (1 standard drink = 0.6 oz pure alcohol)Caffeine intake: nonePHQ-2AnswerDate RecordedPatient Health Questionnaire-2 Ytaid82905/15/2024CommentsUnknownSex and Gender InformationValueDate RecordedSex Assigned at BirthNot on fileLegal SexFemale 07/14/2022 7:24 PM EDTGender IdentityNot on fileSexual OrientationNot on file documented as of this encounter Miscellaneous Notes * Telephone Encounter - Shantel Bahena LPN - 04/23/2025 1:25 PM EST ORDER SENT SHE WILL BE DUE END OF MAY 2025 * Telephone Encounter - Varsha Jasmine - 04/23/2025 1:10 PM EST Patient called requesting an order be sent to [facility] for a mammogram. documented in this encounter Plan of Treatment NameTypePriorityAssociated DiagnosesOrder ScheduleBilateral screening mammogram ImagingRoutine Encounter for screening mammogram for breast cancer Expected: 05/24/2025 (Approximate), Expires: 06/24/2026documented as of this encounter Visit Diagnoses Diagnosis Encounter for screening mammogram for breast cancer documented in this encounter Additional Health Concerns AssessmentNoted TimePHQ-9 Depression Total Score: 8:00 AM EDT documented as of this encounter Care Teams Team MemberRelationshipSpecialtyStart DateEnd Date Bello Hilton MD [address] [place] [address] PCP - GeneralInternal Medicine09/21/22 Cristina Shepherd NP [address] [place], [place] [id number] PCP - ACO Reach06/08/24documented as of this encounter
--- OUTSIDE RECORDS SUMMARY | 2025-05-01 07:31 | XMS_ITS | Clinical Summary ---
Author Organization [facility] Healthcare Address [address] [place] [address] Care Team Providers Care Community Service Organization Director Name Role Phone Bello Hilton MD Primary Care Provider [phone] Cristina Shepherd NP Unavailable [phone] Allergies No known active allergies Medications MedicationSigDispense [...] mg by mouth Daily as needed for strspju8503/15/2023ctive omeprazole (PriLOSEC) [address] capsule Take [...] Therapy Supplies (CareTouch CPAP & BIPAP Hose) [facility] Indications:BiPAP (biphasic positive airway pressure) dependence1 Dose at bedtime 1 each 105/321405/6Active Respiratory Therapy Supplies (Reusable Comfortseal Mask-MED) [facility] Indications:BiPAP (biphasic positive airway pressure) dependence1 Device at bedtime Mirage Activa LT Mask Mvl-YMXK-MvaMkl for CPAP 1 each 5Active simvastatin (Zocor) [...] Do not crush or chew. 21 capsule Expired Active Problems ProblemNoted DateDiagnosed DateRestrictive airway eleycnj4503/14/2025bnormal CT of the lvskivh2503/08/2025bnormal weight gain03/08/20253251Esteqajli35/07/2025 Dependent edema03/08/2025Diabetes mellitus with wqrapayijtyzw87/07/2025Exercise ftmjcljyiwq68/07/2025History of basal cell txmitbehh83/09/2025nxiety and zhtiwtaatq82/05/2025drenal noypvjuzdqt71/05/2025bnormal electrocardiogram 01/23/20239998Arbtqqkw34/24/2023Morbid obesity with BMI of 40.0-44.9, adult 01/23/2023Intra-abdominal obleeidnmquwwul60/24/2023Fatty iexnkcsn53/24/2023 Pmztwdwzwdzy50/24/2023llergic jrnlphom84/23/2023iPAP (biphasic positive airway pressure) sohkvbgdnk77/23/2023ecreased right ventricular systolic function 09/21/2022yspnea on nviksdrc36/23/2023Lipoprotein deficiency uuaadmim15/23/2023 Lower extremity edema09/21/2022LVH (left ventricular hypertrophy)09/21/2022Mixed hnqvtdlajfiiyb61/23/2023Esophageal oyoxeedkm40/23/5394Mhqygfpvuebpfc18/23/2023 Tracheal tgtwfqya66/23/2023Tubular adenoma of colon09/21/2022Vitamin D ullbrrouln84/11/2023Esophageal binfgr8506/30/2010cquired yrhzpmolkncxzh84/07/2008 Bipolar 1 disorder, depressed, partial ymodwirss00/07/2008Mitral valve insufficiency and aortic valve souibkzk97/07/2008Obstructive sleep apnea 11/06/2007 Resolved Problems ProblemNoted DateDiagnosed DateResolved DateGangrenous blddkpgscwaeg32/05/2025 09/03/2024Never smoked any izmvbteyk44asal cell carcinoma (BCC) of right cheekMorbidly obeseType 2 diabetes mellitus without complication, without long-term current use of insulin Encounters DateTypeDepartmentCare OqhuRcacwbzzzxg64/23/2025Telephone [facility] [address] [facility] [[email or web address] [address] [place] [address] Bello Hilton MD 04/22/2025Telephone [facility] [address] [facility] [[email or web address]] [address] [place] [address] Bello Hilton MD 04/04/2025bstract [facility] [address] [facility] [[email or web address]] [address] [place] [address] Bello Hilton MD 03/15/2025Refill [facility] [address] [facility] [[email or web address]] [address] [place] [address] Hemmer, Zulma M, PA Restrictive airway niqfcsp2703/14/2025Refill [facility] [place] [facility] [address] [place] [address] Zulma Glaser, PA Restrictive airway nlynuhp5803/14/2025bstract [facility] [facility] [address] [place] [address] Bello Hilton MD 03/13/2025Telephone [facility] [place] [facility] [address] [place] [address] Zulma Glaser, PA 03/12/2025bstract [facility] [address] [place] [address] Bello Hilton MD 03/08/2025 9:00 AM ESTOffice Visit [facility] [facility] [address] [place] [address] Zulma Glaser, PA Bilateral impacted cerumen (Primary Dx); Vertigo; Dizziness; Acute dysfunction of left eustachian tube03/08/2025amboo flowsheet [facility] [address] [place] [address] Zulma Glaser, PA 03/08/20250864Klxivx21/30/2025bstract [facility] [address] [place] [address] Bello Hilton MD 02/28/2025bstract [facility] [address] [place] [address] Bello Hilton MD 02/18/2025Orders Only [facility] [address] [place] [address] Unallocated, Angeles Carlisle MD 02/18/2025bstract [facility] [address] [place] [address] Bello Hilton MD 02/08/2025bstract [facility] [place] [address] [address] [place] [phone] Bello Hilton MD 02/07/2025 9:00 AM EDTOffice Visit [facility] [place] [address] [address] [place] [address] Zulma Glasre PA Medicare annual wellness visit, subsequent (Primary [...] Morbid obesity with BMI of 40.0-44.9, adult ([facility]); Thyrotoxicosis without thyroid storm, unspecified thyrotoxicosis type; Vitamin D deficiency; Allergic rhinitis due to pollen, unspecified seasonality; Anxiety and depression; Screening for malignant neoplasm of colon; Bipolar 1 disorder, depressed, partial remission ([facility]); Estrogen deficiency; History of basal cell carcinoma; Lipoprotein deficiency disorder; Mixed abmqnxdhhngvcp14/09/2025amboo flowsheet [facility] [place] [address] [address] [place] [phone] Zulma Glaser PA 02/07/20251512Rsyhqx70/04/2025linisync Result Encounter [facility] External Department Unsolicited Bello Hilton MD 01/29/2025Telephone [facility] [place] [address] [address] [place] [phone] Bello Hilton MD from Last 3 Months Immunizations ImmunizationAdministration DatesNext DueModerna SARS-CoV-2 Uzwdzlajvev38/10/2023 Tetanus toxoid, apowwicm25/31/2015 Family History Medical HistoryRelationNameCommentsDiabetesFatherHeart failureSiblingSister , diagnosed with cancerKidney cancerSiblingCancerSisterHeart failure SisterRelationNameStatusCommentsFatherDeceasedMotherAliveOtherAlivespouseSibling SisterDeceased Social History Tobacco UseTypesPacks/DayYears UsedDateSmoking Tobacco: NeverSmokeless Tobacco: Never Tobacco Cessation:Counseling Given: Not Answered Alcohol UseStandard Drinks/WeekCommentsNever0 (1 standard drink = 0.6 oz pure alcohol)Caffeine intake: nonePHQ-2AnswerDate RecordedPatient Health Questionnaire-2 Eeprf468CommentsUnknownSex and Gender InformationValueDate RecordedSex Assigned at BirthNot on fileLegal SexFemale 07/14/2022 7:24 PM EDTGender IdentityNot on fileSexual OrientationNot on file Last Filed Vital Signs Vital SignReadingTime TakenCommentsBlood Qgnakyxs002/7203/08/2025 9:11 AM EST Jdtwl427803/08/2025 9:11 AM FDEXakaiqyrhgo71.2 ??C (99 ??F)07/22/2023 9:04 AM EDT Respiratory Flio780305/08/2024 9:11 AM ESTOxygen Qoahkwvpiw85%03/08/2025 9:11 AM ESTInhaled Oxygen Concentration--Bwfhdp690 kg (264 lb 12.8 oz)03/08/2025 9:11 AM LVDYonwdq092.1 cm (5' 5 )03/08/2025 9:11 AM ESTBody Mass Index44.0703/08/2025 9:11 AM EST Plan of Treatment Health MaintenanceDue DateLast DoneCommentsCT Ruzruicpepdt61/01/1958FIT-DNA 1957FIT1955FOBT1955 7010Kxllobhvwsflf36/01/1958Pneumococcal Vaccine: 65+ Years (1 of 2 - PCV)05/02/19760744Qrcpjnhiwoc06/15/202403/ Colorectal Cancer Lfoyhouyo56/15/2024Diabetes: Retinopathy Eutxvjlmi86/26/2025 01/25/2023, 3Diabetes: Hemoglobin A1C, 04/10/2024, 04/10/2024, Additional history mfeofgRhmydjfmw68/30/85853605/31/2024, 05/11/2023, 05/11/2023, Additional history existsInfluenza Vaccine (#1)10/29/2025Postponed from 12/31/2024 (Patient Refused)Diabetes: Urine Protein Pgbtzebhh00/04/2026 02/02/2025, 02/15/2024, 02/03/2024, Additional history existsMedicare Annual Wellness (AWV), 02/14/2024, 12/14/2022 Procedures Procedure NamePriorityDate/TimeAssociated DiagnosisCommentsPR REMOVAL IMPACTED CERUMEN INSTRUMENTATION CYBYDJUxoquvy69/07/2025 9:55 AM EST Bilateral impacted cerumen DEXA BONE GMUHLXXIqyjiea81/20/2025 1:23 PM EDTALL LIPID PROFILE (FASTING)Routine 02/02/2025 11:55 AM EDT C[facility] CMP (CMP) (FOR REMOTE [facility] USE)Akywodd3902/02/2025 11:55 AM EDT MLR HEMOGLOBIN A6NJurpyei66/04/2025 11:55 AM EDT ALL CBC WITH AUTO HKJVQwrpbcj74/04/2025 11:55 AM EDT TBH MICROALB CREAT RATIO OGRQUZYurbaln17/04/2025 11:48 AM EDT MM TOMOSYNTHESIS SCREENING BI05/31/2024 4:09 PM EST MICROALBUMIN / CREATININE URINE HFYGDXdjdhjg82/16/2024 10:14 AM EDT Medicare annual wellness visit, subsequent Type 2 diabetes mellitus without complication, without long-term current use of insulin (HCC) POCT GLYCATED HEMOGLOBIN, QUEKPVgufzkg41/15/2024 9:35 AM EDT Medicare annual wellness visit, subsequent Type 2 diabetes mellitus without complication, without long-term current use of insulin (HCC) DIABETIC RETINOPATHY SCREENING - OU - BOTH NHSIVswtoiy50/26/2023 8:39 AM EDT TJFYCHYAXUJDatwnyx77/15/2019 12:00 PM EDT from Last 3 Months or Most Recently Relevant to Health Maintenance Results * OR REMOVAL IMPACTED CERUMEN INSTRUMENTATION UNILAT (03/08/2025 9:55 [...] 7.0 ACTION SUGGESTED > 7.0 ESTIMATED AVERAGE HSMPMSL976hr/dLTBHSpecimen (Source)Anatomical Location / LateralityCollection Method / VolumeCollection TimeReceived Time02/02/2025 11:55 AM EDT1 12:08 PM EDT Narrative CLINISYNC - 02/02/2025 12:30 PM EDT Authorizing ProviderResult TypeResult StatusDanijered Hilton MDCLINISYNCFinal ResultPerforming OrganizationAddressCity/State/ZIP CodePhone Number CLINISYNC [facility] * (ABNORMAL) CCF CMP (CMP) (FOR REMOTE [facility] USE) (02/02/2025 11:55 AM EDT) ComponentValueRef RangeTest MethodAnalysis TimePerformed AtPathologist UuracydoqGYNGOF341860 - 145 mmol/LTBHPOTASSIUM4.23.5 - 5.1 mmol/LTBHCHLORIDE 32716 - 107 mmol/LTBHCARBON PRBREHG07.921.0 - 32.0 mmol/LTBHANION GAP12.3TBH KQFTEKQ501(H)74 - 106 mg/dLTBHBLOOD UREA OKEKMRYC40.07.0 - 18.0 mg/dLTBH CREATININE0.750.55 - 1.02 mg/dLTBHTBH EGFR-AF [place]>60>=60 mL/min/1.73m 2 TBHTBH EGFR-NON AF [place]>60>=60 mL/min/1.73m 2TBHBUN CREATININE RATIO14.7 TBHCALCIUM9.08.5 - 10.1 mg/dLTBHBILIRUBIN TOTAL0.60.2 - 1.0 mg/dLTBHASPARTATE AMINO CGRTCWQHTDK68(L)15 - 37 U/LTBHALANINE GHKPXHTNQSHUKTUW0842 - 59 U/LTBH ALKALINE PRARKSGOEKO24533 - 116 U/LTBHTOTAL PROTEIN7.66.4 - 8.2 g/dLTBHALBUMIN LEVEL3.73.4 - 5.0 g/dLTBHGLOBULIN3.9g/dLTBHALBUMIN GLOBULIN RATIO0.9TBH Specimen (Source)Anatomical Location / LateralityCollection Method / Volume Collection TimeReceived Time02/02/2025 11:55 AM EDT1 12:08 PM EDT Narrative MARCELINA - 02/02/2025 12:33 PM EDT Authorizing ProviderResult TypeResult StatusDakenisha Hilton [facility] ARROWLINISYNCFinal ResultPerforming OrganizationAddressty/State/ZIP CodePhone Number MARCELINA [facility] * (ABNORMAL) ALL LIPID PROFILE (FASTING) (02/02/2025 11:55 AM EDT)ComponentValue Ref RangeTest MethodAnalysis TimePerformed AtPathologist Signature AIHWXLVUFMZJS093(H)<=150 mg/hEWCKLZSLFUHOCJP657<=200 mg/dLTBHHDL QTILKLBYXXL12 40 - 60 mg/dLTBHComment: > or =60 mg/dl - LOW CARDIOVASCULAR RISK <40 mg/dl - HIGH CARDIOVASCULAR RISK LDL CHOLESTEROL IOYXAGCHLB21.0mg/dLTBHComment: <100 mg/dl OPTIMAL 100-129 mg/dl NEAR OR ABOVE OPTIMAL 130-159 mg/dl BORDERLINE HIGH 160-189 mg/dl HIGH >190 mg/dl VERY HIGH VLDL DEVEUTVYMBQ41.0mg/dLTBHCHOL HDL RATIO3.2TBHComment: 3.3 - 4.4 ?? LOW RISK 4.4 - 7.1 ?? AVERAGE RISK 7.1 - 11.0 ??MODERATE RISK >11.0 HIGH RISK Specimen (Source)Anatomical Location / LateralityCollection Method / Volume Collection TimeReceived Time02/02/2025 11:55 AM EDT1 12:08 PM EDT Narrative MARCELINA - 02/02/2025 12:40 PM EDT Authorizing ProviderResult TypeResult StatusBello Hilton [facility] ARROWLINISYNCTonsil Hospitalal ResultPerforming OrganizationAddBrooke Glen Behavioral Hospitalty/State/ZIP CodePhone Number MARCELINA [facility] * (ABNORMAL) ALL CBC WITH AUTO DIFF (02/02/2025 11:55 AM EDT)ComponentValueRef RangeTest MethodAnalysis TimePerformed AtPathologist SignatureTBH WBC7.64.0 - 11.0 10 3/uLTBHTBH RBC4.17(L)4.20 - 5.40 10 6/uLTBHTBH HGB12.512.0 - 16.0 g/dL TBHTBH HCT37.836.0 - 48.0 %TBHTBH MCV90.681.0 - 99.0 fLTBHTBH MCH30.026.7 - 34.0 pgTBHTBH MCHC33.129.9 - 35.2 g/dLTBHTBH RDW12.811.0 - 15.0 %TBHTBH GPB868 150 - 450 10 3/uLTBHTBH MPV9.89.5 - [...] Hilton MDCLINISYNCFinal ResultPerforming OrganizationAddressCity/State/ZIP CodePhone Number CLINISYNC [facility] * TBH MICROALB CREAT RATIO RANDOM (02/02/2025 11:48 AM EDT)ComponentValueRef RangeTest MethodAnalysis TimePerformed AtPathologist SignatureMICROALBUMIN URINE RANDOM<1.3<=30.0 mg/dLTBHCREATININE URINE LRASNS601.9420.00 - 300.00 mg/dLTBHSpecimen (Source)Anatomical Location / LateralityCollection [...] EST Narrative 05/31/2024 4:09 PM EST [facility] ?[address] ? [place] [facility] ? Mammography Report ? Signed ? Patient: BETTE VILLAFANA ?MR#: [id number] ?? : 1955 ?Acct:[id number] ?? Age/Sex: 69 / F ?ADM Date: 05/30/24 ?? Loc: MAMMO ? Attending Dr: BELLO HILTON ? Ordering Physician: BELLO HILTON ? Results: ? Date of Service: 05/30/ ?Follow Up: ? Procedure(s): MM tomosynthesis screening BI ?? Accession Number(s): [id number] ? cc: BELLO HILTON ? Patient Name: ? BETTE VILLAFANA ? MR#: [id number] ? : 1955 ? Exam Date: 05/30/2024 [...] at age ??52. ? LOCATION: ? [facility] ? BREAST COMPOSITION: ? The breasts are [...] ? Signed By: ?05/31/24 1609 ? DD/ ? TD/TT: ? School Plant Consultant: Procedure Note Radiology, Radiologist, - 05/31/2024 [place] [address] Mammography Report Signed Patient: BETTE VILLAFANA SMR#: [id number] : 8Acct:[id number] Age/Sex: 69 / FADM Date: 05/30/24 Loc: MAMMO Attending Dr: BELLO HILTON Ordering Physician: BELLO HILTONResults: Date of Service: 05/30/24Follow Up: Procedure(s): MM tomosynthesis screening BI Accession Number(s): [id number] cc: BELLO HILTON Patient Name: BETTE VILLAFANA MR#: [id number] : 1955 Exam Date: 05/30/2024 Ordering Doctor: DR BELLO HILTON M.D. RADIOLOGY REPORT PROCEDURE: MM TOMOSYNTHESIS SCREENING BI COMPARISON: MM TOMOSYNTHESIS SCREENING BI, 05/11/2023. MG MAMM AOZOIO4B ALFA CAD, 05/11/2022. MG MAMM SCREEN 3D [...] kidney cancer at age 52. LOCATION: [facility] BREAST COMPOSITION: The breasts are almost [...] M.D. Signed By:05/31/24 1609 DD/ 08 TD/TT: School Plant Consultant: Authorizing ProviderResult TypeResult Iftikhar Hilton MDCLINISYNC IMAGING Final Result * Microalbumin / creatinine, urine ratio (02/15/2024 10:14 AM EDT)ComponentValue Ref RangeTest MethodAnalysis TimePerformed AtPathologist SignatureCREATININE, RANDOM ZNOLR08862 - 275 mg/dLQUESTALBUMIN, URINE1.3See Note: mg/dLQUEST Comment: [...] specimen obtained by clean catch procedure / Eatxolu6102/15/2024 10:14 AM EDT1 10:14 AM EDT Narrative Resulting Agency Comment Performing Organization Information ?Site ID: [id number] ?Name: [facility] ?Address: [address] [place] [address], [address] [place] [phone] ?Director: Keyshawn Alfonso MD Authorizing ProviderResult TypeResult Tori BAPTISTE URINE ORDERABLESFinal ResultPerforming OrganizationAddressCity/State/ZIP CodePhone Number [facility]ST * POCT Glycated hemoglobin, total (02/14/2024 9:35 AM EDT)ComponentValueRef RangeTest MethodAnalysis TimePerformed AtPathologist SignatureHemoglobin A1C 5.9Specimen (Source)Anatomical Location / LateralityCollection Method / Volume Collection TimeReceived EpcfOrheq03/15/2024 9:35 AM EDT Narrative Authorizing ProviderResult TypeResult Tori Shepherd NPCOLUMBIA OF CARE TEST ENTER/EDIT ORDERABLESFinal Result * Diabetic Retinopathy Screening - OU - Both Eyes (01/25/2023 8:39 AM EDT) ComponentValueRef RangeTest MethodAnalysis TimePerformed AtPathologist SignatureRESULTSNDRAnatomical RegionLateralityModalityHeadOther Narrative Authorizing ProviderResult TypeResult StatusZulma Glaser PAOPHTH PHOTOGRAPHY Final Result * Colonoscopy (07/14/2018 12:00 PM EDT)Anatomical RegionLateralityModality EndoscopySpecimen (Source)Anatomical Location / LateralityCollection Method / VolumeCollection TimeReceived Time07/14/2018 12:00 PM EDT Narrative 07/14/2018 12:00 PM EDT PERFORMED AT [facility] LOCATION:[id number] polyp-tub.adenoma-repeat 5 years Procedure Note CONVERSION, GENERIC - 09/15/2022 PERFORMED AT [facility] LOCATION:[id number] polyp-tub.adenoma-repeat 5 years Authorizing ProviderResult TypeResult StatusBello Hilton MDENDOSCOPY PROCEDURE ORDERABLESFinal Result from Last 3 Months or Most Recently Relevant to Health Maintenance [place] [address] Care Teams Team MemberRelationshipSpecialtyStart DateEnd Bello Hilton MD [address] [facility] [address] [place] [address] PCP - GeneralInternal Medicine09/21/22 Cristina Shepherd NP [address] [address] PCP - [facility]CO [facility]06/08/24
--- OUTSIDE RECORDS SUMMARY | 2025-05-01 07:31 | XMS_ITS | CCD ---
Author Organization [facility] CliniSyut Care Team Providers Care Occupational Work Experience Teacher Name Role Phone Ronnie Murphy Unavailable Unavailable [...] Hilton IIxton Primary Care Unavail able Guerita Lililam Unavailable Nikki Manning Unavailable MISC, DR GONZALEZ [...] Unavailable Primary Care Provider Unavailabl e Guerita, 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 ARC Lilliam C Attending Provider TANESHA Hilton Primary Care Provider MD Mayito Yang Attending Provider [phone] BELLO HILTON Primary Care Physician Emiliano Lagos Attending Unavailable Mayito YANG Attending Unavailable SHAIKH CORDOBA Referring Unavailable Mayito YANG Attending Unavailable Hilton, II Bello Primary Care Provider MD Mayito Yang Attending Provider ORVILLE Dexter Attending Provider DO Serg Boucher Emergency Provider MD Ben Wasserman Attending Provider [phone] Hilton, II Bello Primary Care Provider ORVILLE Dexter Attending Provider Hilton, II Bello Primary Care Provider MD Ben Wasserman Attending Provider Bello Hilton MD Primary Care Provider Bello Hilton MD Primary Care Provider Yobani II, Bello Primary Care Provider Ben Wasserman MD Attending Provider [phone] BELLO HILTON Primary Care Unavailable CRISTINA HUBBARD Referring Unavailable BELLO HILTON Primary Care Unavailable Stevie COLOR PRINT INSPECTOR, Cristina Greenberg Unavailable Yobani II, Bello Primary Care Provider ScalLilliam rodas APRN Attending Provider Ben Wasserman MD Attending Provider Caryl Meléndez MD Attending Provider Yobani IIBello Primary Care Provider [phone] ScalLilliam rodas APRN Attending Provider Maricel Shultz RD Attending Provider Unavailable RONNIE MURPHY Attending Unavailable BELLO HILTON B Primary Care Unavailable DOMINIC SALDANA Attending Unavailable YOBANI BELLO B Primary Care Unavailable DOMINIC SALDANA Attending Unavailable HILTON, BELLO B Primary Care Unavailable Bello Hilton II Primary Care Provider [phone] Lilliam Dexter APRN Attending Provider Brian Mtz MD Referring Provider Bello Hilton Primary Care Unavailable Caryl Meléndez Attending Unavailable Caryl Meléndez Admitting Unavailable Brian Mtz Referring Unavailable Bello Hilton Primary Care Unavailable Caryl Meléndez Attending Unavailable Caryl Meléndez Admitting Unavailable Ben Wasserman Admitting Unavailab le Bello Hilton Primary Care Unavailable Ben Wasserman Attending Unavailab ZULMA Burks Attending Unavailable STEVIECRISTINA WU Attending Unavailable HEMZULMA NAVARRO Attending Unavailable HEMZULMA NAVARRO Attending Unavailable Yobani ALMENDAREZ, Bello Primary Care Provider [phone] Caryl Meléndez MD Attending Provider Maricel Shultz RD Attending Provider Unavailable Lilliam Dexter APRN Attending Provider Caryl Meléndez MD Other Provider Brina Mtz MD Referring Provider [phone] Andrea Sam MD Attending Provider Allergies Allergy ClassificationReported Allergen(s)Allergy TypeDate of OnsetReaction(s) Facility (1 source)No Known Medication Allergies; Translations: [No Known Medication Allergies]Propensity to adverse reactions (disorder)[facility] Rep[facility] Medications Current Medications MedicationDrug Class(es)DatesSig (Normalized)Sig (Original)0.25 MG, 0.5 MG Dose 3 ML semaglutide 0.68 MG/ML Pen Injector [Ozempic] (1 source)Start: 04-36-4467Jkghtvg 2 mg/3 mL (0.25 mg or 0.5 mg dose) subcutaneous solution 0.25 mg, SubCutaneous, qWeek, Refills(s) 0 Start Date: 06/03/23 Status: Ordered0.5 ML tirzepatide 5 MG/ML Auto-Injector [Mounjaro] (7 sources)Start: 02-19-0764Flexkcwh 2.5 MG/0.5ML as directed Subcutaneous weekly for 30 days E11.65 Rx Bin [id number], Group: [id number], PCN 3F, ID: [id number] Sep, ActiveMounjaro 2.5 MG/0.5ML as directed Subcutaneous weekly for 30 days E11.65 Rx Bin [id number], Group: [id number], PCN 3F, ID: [id number]-- NOT covered Not-TakingMounjaro 2.5 MG/0.5ML as directed Subcutaneous weekly for 30 days E11. Rx Bin [id number], Group: [id number], PCN 3F, ID: [id number]-- NOT covered Activeazithromycin 250 mg oral tablet (5 sources)Macrolide AntimicrobialStart: 10-06-2023 End: 03-38-5913ohba 2 tablets by mouth once daily, then take 1 tablet by mouth once dailyazithromycin (Zithromax) 250 MG tablet Indications: Acute bronchitis, unspecified organism Take 2 tablets (500 mg) by mouth Daily for 1 day, THEN 1 tablet (250 mg) Daily for 4 days. 6 tablet 02/14/2024 02/19/2024 Active cholecalciferol 0.05 mg oral capsule (20 sources)Vitamin DStart: 32-26-1172wcmx 1 capsule by mouth once daily cholecalciferol (Vitamin D-3) 50 MCG (2000 UT) capsule Take 2,000 Units by mouth Daily 08/01/2023 ActiveStart: 08-01-2023 End: 64-50-8011nbfu 1 capsule by mouth once dailyCholecalciferol (Vitamin D3) 50 mcg (2,000 unit) capsule Discontinued 50 MCG PO Daily July 31, 2023 11:00pm October 19, 2023 10:08amVitamin D3 1.25 MG (50276 UT) TAKE 1 CAPSULE BY MOUTH WEEKLY FOR 56 DAYS for 56 Not-Taking/PRNtake 1 capsule by mouth every twenty- four hoursVitamin D3 50 MCG (2000 UT) 1 capsule Orally Once a day Activetake 1 capsule by mouth once dailyCholecalciferol 1.25 MG (62598 UT) 1 capsule Orally weekly for 56 days when complete take 4000 u daily OTC Not-Taking/PRNtake 1 capsule by mouth once dailyCholecalciferol 1.25 MG (37214 UT) 1 capsule Orally weekly for 56 days when complete take 4000 u daily OTC Activedexamethasone 1 mg oral tablet (18 sources)CorticosteroidStart: 97-22-4400gizh 1 tablet by mouth once in the eveningdexAMETHasone (Decadron) 1 mg tablet Indications: Adrenal nodule Take 1 tablet (1 mg) by mouth 1 time for 1 dose. -take 1mg of dexamethasone around 10- 11 pm, blood work at 8am 1 tablet 04/10/2024 ActiveStart: 00-65-8625guml 1 tablet by mouth every twenty-four hoursdexAMETHasone 6 MG 1 tablet Orally Once a day for 5 day(s) Apr, Not-Taking/PRNhydrocortisone 10 mg/ml / neomycin 3.5 mg/ml / polymyxin b 77684 unt/ml otic suspension (4 sources)Aminoglycoside Antibacterial, Polymyxin-class Antibacterial, CorticosteroidStart: 09-03-2024 End: 56-60-4601wlvdihqc-polymyxin-hydrocortisone (Cortisporin) 3.5-07196-1 otic suspension Indications: Other infective acute otitis externa of right ear Administer 3 drops into the right ear in the morning and 3 drops at noon and 3 drops in the evening and 3 drops before bedtime. Do all this for [address] inaffected ear. 10 mL 09/03/2024 09/18/2024 Discontinued (Other)levothyroxine sodium 0.1 mg oral tablet (20 sources)l-ThyroxineStart: 20-03-7922nlzo 1 tablet by mouth once daily levothyroxine 100 mcg (0.1 mg) Tab 100 mcg = 1 tab(s), Oral, Daily, Refills(s) 0 Start Date: 05/18/23 Status: OrderedStart: 88-10-4136kwmw 1 tablet by mouth once dailyLevothyroxine 100 mcg tablet Active 100 MCG PO Daily July 31, 2023 11:00pm Complies with drug therapyStart: 96-06-7194Yflckyzbfxetl Sodium 100 MCG Oral Tablet Quantity: 30 Refills: 0 Ordered: 07-Feb-2021 DO Start : 09-Jan-2021 Activetake 1 tablet by mouth once daily in the morningSynthroid 100 MCG 1 tablet in the morning on an empty stomach Orally Once a day Active End: 00-75-8520zmzjiuqbnusxe (Synthroid) 25 mcg tablet Synthroid 25 MCG Oral Tablet Refills: 0 Active 0 02/22/2023iscontinued (Therapy completed)Synthroid 25 MCG Oral Tablet Quantity: 0 Refills: 0 Ordered: 11-Dec-2013 DO Active LORazepam 0.5 mg oral tablet (20 sources)BenzodiazepineStart: 23-89-6964ewmi 1 tablet by mouth every twenty- four hours as needed for anxietyLORazepam (Ativan) 0.5 MG tablet Take 0.5 mg by mouth Daily as needed for anxiety 03/15/2023 ActiveAtivan 0.5 MG Oral Tablet Quantity: 0 Refills: 0 Ordered: 11-Dec-2013 DO Activemeclizine hydrochloride 50 mg oral tablet (14 sources)AntiemeticStart: 03-08-2025 End: 84-26-5019evms 1 tablet by mouth in the morningmeclizine (ANTIVERT) 50 MG tablet Indications: Vertigo Take 1 tablet (50 mg) by mouth in the morning and 1 tablet (50 mg) before bedtime. Do all this for 10 days. * May cause drowsiness *. 20 tablet 03/08/2025 03/18/2025 ActiveStart: 09-03-2024 End: 49-89-9941fwhz 1 tablet by mouth three times daily as needed for dizziness meclizine (Antivert) 25 MG tablet Indications: Dizziness Take 1 tablet (25 mg) by mouth 3 (three) times a day as needed for dizziness 30 tablet 09/03/2024 02/07/2025 Discontinued (Therapy completed)metFORMIN hydrochloride 500 mg oral tablet (20 sources)BiguanideStart: 08-20-2024 End: 77-66-9318svaz 1 tablet by mouth once daily at mealtimemetFORMIN (Glucophage) 500 MG tablet Indications: Type 2 diabetes mellitus without complication, without long-term current use of insulin (HCC) TAKE 1 TABLET BY MOUTH EVERY DAY WITH A MEAL 100 tablet3 08/20/2024 02/07/2025 Discontinued (Other)Start: 05-15-2023 End: 51-31-7999jikz 1 tablet by mouth once dailyMetformin 500 mg tablet Discontinued 500 MG PO Daily July 31, 2023 11:00pm July 04, 2024 2:09pmtake 1 tablet by mouth twice dailymetFORMIN (Glucophage) 500 mg tablet Take 1 tablet (500 mg) by mouth 2 times daily (morning and late afternoon). Active methylPREDNISolone (2 sources)CorticosteroidStart: 02-14-2024 End: 10-26-6273jtrvhjTXHNGXVnnxjx (Medrol Dospak) 4 MG tablets Indications: Acute bronchitis, unspecified organismFollow schedule on package instructions 21 tablet 02/14/2024 02/21/2024 Activeozempic (0.25 or 0.5 mg/dose) 2 mg/3ml solution pen-injector (4 sources)Start: 75-10-2301Alpxnkl (0.25 or 0.5 MG/DOSE) 2 MG/3ML 0.25 mg Subcutaneous weekly for 30 days Via samples Jun, ActiveOzempic (0.25 or 0.5 MG/DOSE) 2 MG/3ML 0.25 mg Subcutaneous weekly for 90 days Activeinject 0.5 mg by subcutaneous injection every weekOzempic (0.25 or 0.5 MG/DOSE) 2 MG/3ML 0.5 mg Subcutaneous weekly for 90 days ActiveRespiratory Therapy Supplies ([facility] CPAP & [facility]) [facility] ([facility])Start: 09-18-2024 End: 09-34-1503Fksqfdxpyok Therapy Supplies (CareTouch CPAP & BIPAP Hose) [facility] [place]: BiPAP (biphasic positive airway pressure) dependence 1 Dose at bedtime 1 each 1 09/18/2024 09/18/2025 ActiveRespiratory Therapy Supplies (Reusable Comfortseal Mask-MED) misc (11 sources)Start: 94-16-8451Cuyuybeeuiy Therapy Supplies (Reusable Comfortseal Mask-MED) [facility] [place] Indications: BiPAP (biphasic positive airway pressure) dependence 1 Device at bedtime Mirage Activa LT Mask Qud-KJZE-TyaSjr for CPAP 1 each 1 09/18/2024 ActiverisperiDONE 2 mg oral tablet (20 sources)Atypical AntipsychoticStart: 83-94-7681zbdxgshWFDE 2 MG Oral Tablet Quantity: 30 Refills: 0 Ordered: 17-Jan-2015 DO Start : 28-Nov-2014 ActiveStart: 14-11-4113fhqk 1 tablet by mouth once dailyRisperidone 2 mg tablet Active 2 MG PO Daily July 31, 2023 11:00pm Complies with drug therapy0.25 mg, 0.5 mg dose 1.5 ml semaglutide 1.34 mg/ml pen injector (20 sources) End: 09-14-1215ieuzsd 0.25 mg by subcutaneous injection every weeksemaglutide (Ozempic, 0.25 or 0.5 MG/DOSE,) 2 MG/1.5ML solution pen-injector Inject 0.25 mg under the skin 1 (one) time per week. ActiveOzempic (0.25 or 0.5 MG/DOSE) 2 MG/1.5ML SOPN weekly Quantity: 0 Refills: 0 Ordered: 01-Jun-2022 DOActive Semaglutide (7 sources)Start: 63-16-6127zuxwjc 1 mg by subcutaneous injection every week Semaglutide (Ozempic) 1 mg/dose (4 mg/3 mL) pen injector Active 1 MG SUBCUT every week November 06, 2024 11:00pm Complies with drug therapyStart: 11-07-2024 inject 1 mg by subcutaneous injection every weekStart: 34-06-1948vuwenh 1 mg by subcutaneous injection every weekSemaglutide (Ozempic) 1 mg/dose (4 mg/3 mL) pen injector Active 1 MG SUBCUT every week November 07, 2024 12:00am Complies with drug therapysimvastatin 40 mg oral tablet (20 sources)HMG-CoA Reductase InhibitorStart: 04-04-2023 End: 26-28-0789bqqj 1 tablet by mouth once dailySimvastatin 40 mg tablet Active 40 MG PO Daily July 31, 2023 11:00pm Complies with drug therapySimvastatin 40 MG Oral Tablet Quantity: 0 Refills: 0 Ordered: 11-Dec-2013 DO Active triamcinolone acetonide 0.055 mg/actuat metered dose nasal spray (2 sources)CorticosteroidStart: 03-08-2025 End: 34-67-7653benc 2 spray(s) nasal route once dailytriamcinolone (Nasacort Allergy 24HR) 55 MCG/ACT nasal inhaler Indications: Acute dysfunction of left eustachian tube Administer 2 sprays into each nostril Daily for 7 days 16.9 mL 03/08/2025 03/15/2025 Activevenlafaxine 75 mg oral tablet (20 sources)Serotonin and Norepinephrine Reuptake InhibitorStart: 89-01-2367psoy 1 tablet by mouth twice dailyVenlafaxine 75 mg tablet Active 75 MG PO Twice daily July 31, 2023 11:00pm Complies with drug therapyStart: 05-15-2023 Effexor XR 75 mg Cap-ER 75 [...] / HYDROcodone bitartrate 5 mg oral tablet (15 sources)Opioid AgonistStart: 08-06-2023 End: 61-31-4802uawe 1 tablet by mouth every four to six hours as needed for pain Hydrocodone-Acetaminophen 5-325 mg tablet Discontinued 1 TAB PO EVERY 4-6 HOURS as needed for pain 10 3 0 August 06, 2023 August 09, 2023 10:41am Left shoulder pain Pain in left shoulderdextromethorphan hydrobromide 30 mg / pyrilamine maleate 30 mg oral tablet (16 sources)Uncompetitive M-pelxih-Q-aspartate Receptor Antagonist, Sigma-1 AgonistStart: 66-05-6926bvgz 1 tablet by mouth every six hoursCapron DMT 30-30 MG 1 tablet Orally every 6 hours for 7 days Apr, Not-Taking/PRN12 hr hyoscyamine sulfate 0.375 mg extended release oral tablet (4 sources)Start: 29-51-5020sfll 1 tablet by mouth every twelve hours as needed Hyoscyamine Sulfate ER 0.375 MG Oral Tablet Extended Release 12 Hour TAKE 1 TABLET BY MOUTH EVERY 12 HOURS NEEDED FOR SWEATING Quantity: 60 Refills: 0 Start : 17-Oct-2014 Active3 ml liraglutide 6 mg/ml pen injector (8 sources)GLP-1 Receptor AgonistStart: 18-36-1091Gqttvdr 18 MG/3ML 0.6 mg Subcutaneous daily for 30 days Start Victoza at 0.6 mg sq daily x 1 week, i ncrease by 0.6 mg weekly to max dose of 1.8 mg. Hold escalation for toleration issues and call prescriber for instructions. Jan, Not-Taking/PRNmounjaro 2.5 mg/0.5ml solution pen-injector (5 sources)Mounjaro 2.5 MG/0.5ML as directed Subcutaneous weekly for 30 days E11.65 Rx Bin [id number], Group: [id number], PCN 3F, ID: [id number]-- NOT covered Not-Taking/PRNomeprazole 20 mg delayed release oral capsule (20 sources)Proton Pump InhibitorStart: 61-77-7295tmro 1 capsule by mouth once dailyOmeprazole 20 mg capsule,delayed release(DR/EC) Active 20 MG PO Daily December 13, 2024 8:19am Complies with drug therapyStart: 08-02-2019 End: 86-76-9999qlii 1 capsule by mouth twice dailyOmeprazole 20 mg capsule,delayed release(DR/EC) Discontinued 20 MG PO Twice daily July 31, 2023 11:00pm December 13, 2024 8:19amStart: 36-99-3153hiqa 1 tablet by mouth twice dailyOmeprazole 20 MG Oral Tablet Delayed Release TAKE 1 TABLET BY MOUTH TWICE DAILY Quantity: 180 Refills: 2 Ronnie Murphy MD Start : 11-May-2018 ActiveStart: 59-92-6941qjtaofsdtz 20 mg, Oral, Daily, Oral, 0 Refill(s), Refills(s) 0 Start Date: 05/10/18 Status: OrderedpredniSONE 50 mg oral tablet (15 sources)Start: 08-06-2023 End: 81-47-9980smqj 1 tablet by mouth once dailyPrednisone 50 mg tablet Discontinued 50 MG PO Daily 5 5 0 August 05, 2023 11:00pm August 09, 2023 10 :41amSemaglutide (15 sources)Start: 06-20-2023 End: 42-05-9316Puwgyazxlbf (Ozempic) 0.25 mg or 0.5 mg (2 mg/3 mL) pen injector Discontinued 0.5 MG SUBCUT every week June 20, 2023 12:00am November 07, 2024 12:47pm PAP approved thru Start: 06-20-2023 End: 24-18-7609Rmwudkxajga (Ozempic) 0.25 mg or 0.5 mg (2 mg/3 mL) pen injector Discontinued 0.5 MG SUBCUT every week June 20, 2023 1:00am November 07, 2024 1:47pm PAP approved thru Start: 64-47-5471Kbdlpsufsps (Ozempic) 0.25 mg or 0.5 mg (2 mg/3 mL) pen injector Active 0.5 MG SUBCUT every week June 20, 2023 1:00am PAP approved thru terbinafine 250 mg oral tablet (4 sources)Allylamine AntifungalStart: 35-97-5528etvp 1 tablet by mouth once dailyTerbinafine HCl - 250 MG Oral Tablet TAKE 1 TABLET EVERY DAY Quantity: 30 Refills: 0 Start : 25-Sep-2015 Active Problems Active Problems Problem ClassificationProblemDateDocumented DateEpisodic/ChronicAcute bronchitis (18 sources)Acute bronchitis; Translations: [Acute bronchitis]16-72-9481Lttapheo Administrative/social admission (2 sources)Patient encounter status; Translations: [Other specified counseling] 51-53-1680TaidrndqXznlhbmo reactions (18 sources)Allergic condition; Translations: [Allergy, unspecified, initial encounter]Onset: 310101-65-8212ErlxwscyQwbpwmo disorders (20 sources)Mixed anxiety and depressive disorder; Translations: [Other specified anxiety disorders]Onset: 29-71-5394WjcjkgwKjgkqvm obstructive pulmonary disease and bronchiectasis (16 sources)Bronchitis; Translations: [Bronchitis, not specified as acute or chronic]EpisodicConditions associated with dizziness or vertigo (6 sources)Dizziness; Translations: [Dizziness and giddiness]81-62-3036Xfpzwcgm Diabetes mellitus with complications (20 sources)Type II diabetes mellitus uncontrolled; Translations: [Type 2 diabetes mellitus with hyperglycemia]Onset: 80-41-9365IovbsqbJrchgipn mellitus without complication (20 sources)Diabetes mellitus; Translations: [Diabetes mellitus without mention of complication, type II or unspecified type, not stated as uncontrolled]Onset: 09-21-2022 Resolved: 109412-25-2362OxothvcBgjclrwxx of lipid metabolism (20 sources)Hyperlipidemia; Translations: [Other and unspecified hyperlipidemia] Onset: 72-60-8126QibrlksTomieruemu disorders (20 sources)Gastroesophageal reflux disease; Translations: [Esophageal reflux] Onset: 276650-49-4095XdppgovNxxcg and electrolyte disorders (1 source)Dehydration; Translations: [DEHYDRATION]Onset: 29-90-0689Mkocedii Genitourinary symptoms and ill-defined conditions (1 source)Personal history of urinary (tract) infections; Translations: [PERS HX URINARY TRACT INFECTIONS]Onset: 68-03-1605RkddmqeaTrnmt valve disorders (20 sources)Rheumatic disorders of both mitral and aortic valves; 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]Onset: hronic Malaise and fatigue (20 sources)Other fatigue; Translations: [Weakness]Onset: 82-05-7555Kxvmrysy Menopausal disorders (4 sources)Decreased estrogen level; Translations: [Other primary ovarian failure]44-49-7901EctyuudWcovgntpui disorders (1 source)Hormone replacement therapy; Translations: [HORMONE REPLACEMENT THERAPY]Onset: 15-76-5465CxdytpwrExok disorders (20 sources)Bipolar disorder; Translations: [Bipolar disorder, unspecified] Onset: 282986-23-9569MqqhgnmYfxtlb and vomiting (1 source)Nausea with vomiting, unspecified; Translations: [NAUSEA WITH VOMITING UNSPECIFIED]Onset: 67-48-0464HdnojubyKzvfqqlkgtm deficiencies (20 sources)Vitamin D deficiency; Translations: [Vitamin D deficiency, unspecified]Onset: 61-88-8655PwmadwmEjxds aftercare (1 source)FDC (current) use of oral hypoglycemic drugs; Translations: [PRISON USE ORAL HYPOGLYCEMIC DX]Onset: 20-05-9865FapmdkdmIbqlb aftercare (1 source)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 courtesy bus driver (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; Translations: [OTH KENNEL MANAGER DOG TRACK CURRENT DRUG THERAPY]Onset: 31-90-2042PdqxdcnuObmsh and ill-defined heart disease (20 sources)Right ventricular systolic dysfunction; Translations: [Other ill- defined heart diseases]Onset: 084693-27-3424KczfkykUrscm and ill-defined heart disease (20 sources)Left ventricular hypertrophy; Translations: [Cardiomegaly]Onset: 247846-92-6019CyzuksaCosnc and ill-defined heart disease (3 sources)Cardiomegaly; Translations: [Cardiomegaly]Onset: 120564-71-8484 ChronicOther and ill-defined heart disease (3 sources)Heart disease; Translations: [Other ill-defined heart diseases]Onset: 968395-43-1717BpugbtcTbafh and ill-defined heart disease (1 source)Cardiomegaly; Translations: [Cardiomegaly]Onset: 55-27-5766Tbysvcg Other and ill-defined heart disease (1 source)Other ill-defined heart diseases; Translations: [Other ill-defined heart diseases]Onset: 80-57-3279TosertvUebsc connective tissue disease (4 sources)Trigger finger of left hand; Translations: [Trigger finger, unspecified finger]58-92-6237WmzwbovhKachy ear and sense organ disorders (16 sources)Impacted cerumen; Translations: [Impacted cerumen]EpisodicOther ear and sense organ disorders (2 sources)Impacted cerumen in right ear; Translations: [Impacted cerumen, right ear]34-34-9316FhjzpuivTjwzy ear and sense organ disorders (2 sources)Acute infective otitis externa; Translations: [Other infective otitis externa, right ear]49-36-3098OnvrbaadKqice ear and sense organ disorders (2 sources)Impacted cerumen of bilateral ears; Translations: [Impacted cerumen, bilateral]90-27-8128CgwuywztLqvhv endocrine disorders (20 sources)Disorder of adrenal gland; Translations: [Disorder of adrenal gland, unspecified]Onset: 483493-87-8595UjjduwrRhyws endocrine disorders (12 sources)Disorder of adrenal gland, unspecified; Translations: [Unspecified disorder of adrenal glands]Onset: 30-22-6404CdutopgCllmq endocrine disorders (2 sources)Adrenal mass; Translations: [Disorder of adrenal gland, unspecified] 40-78-0306UdlhzqwUfbhh gastrointestinal disorders (6 sources)Heartburn; Translations: [HEARTBURN]Onset: 97-77-0183IyigmnqyAxfdq gastrointestinal disorders (1 source)Diarrhea, unspecified; Translations: [DIARRHEA UNSPECIFIED]Onset: 59-81-3188MwefmimaOvbrh gastrointestinal disorders (15 sources)Heartburn; Translations: [Heartburn]10-80-4976VsleehahMkung gastrointestinal disorders (1 source)Adrenal qbhy57-47-0482EfxzefemJauhm lower respiratory disease (12 sources)Snoring; Translations: [Other respiratory abnormalities]Episodic Other lower respiratory disease (15 sources)Snoring; Translations: [Snoring]44-89-7099JleohjznQvljh lower respiratory disease (20 sources)Dyspnea on exertion; Translations: [Other forms of dyspnea]Onset: 163755-55-1577LamdpzzlWhkkz lower respiratory disease (1 source)Shortness of breath; Translations: [Shortness of breath]Onset: 74-73-9843LqgkqedaZjjyl non-epithelial cancer of skin (20 sources)Basal cell carcinoma of cheek; Translations: [Basal cell carcinoma of skin of other parts of face]Onset: 09-21-2022 Resolved: 465793-18-7384BmudnpniEecmr non-traumatic joint disorders (15 sources)Pain in left shoulder; Translations: [Left shoulder pain]08-06-2023 EpisodicOther nutritional; endocrine; and metabolic disorders (20 sources)Body mass index 40+ - severely obese; Translations: [Morbid obesity] Onset: 449978-62-8680WvpoxrdAstvo nutritional; endocrine; and metabolic disorders (20 sources)Obesity; Translations: [Obesity, unspecified]43-64-0517OrnyedyFulyi nutritional; endocrine; and metabolic disorders (20 sources)Obesity, unspecified; Translations: [Obesity, unspecified]Onset: 07-95-4192MdxbzfaMcjod nutritional; endocrine; and metabolic disorders (18 sources)Body mass index (BMI) 40.0-44.9, adult; Translations: [Body Mass Index 40.0-44.9, adult]Onset: 11-95-6987GamldwhTqnpr nutritional; endocrine; and metabolic disorders (20 sources)Lipoprotein deficiency disorder; Translations: [Lipoprotein deficiency]Onset: 295242-66-6663IrijrdkAzynd nutritional; endocrine; and metabolic disorders (1 source)Severe obesity; Translations: [Class 3 severe obesity with serious comorbidity and body mass index (BMI) of 40.0 to 44.9 in adult, unspecified obesity type]82-84-1807QqribyjCdpde nutritional; endocrine; and metabolic disorders (2 sources)Morbid (severe) obesity due to excess calories; Translations: [Morbid (severe) obesity due to excess calories (Multi)]Onset: 82-23-2203WmsseweFvega nutritional; endocrine; and metabolic disorders (20 sources)Abnormal weight gain; Translations: [Abnormal weight gain]Onset: 044497-27-8609PyelrggsUuqdp screening for suspected conditions (not mental disorders or infectious disease) (20 sources)Echocardiogram abnormal; Translations: [Nonspecific (abnormal) findings on radiological and other examination of other intrathoracic organs] Onset: 20-32-9966BijhngtqDwcau upper respiratory disease (20 sources)Allergic rhinitis; Translations: [Allergic rhinitis, unspecified] Onset: 917779-88-0811MfkbullWegzu upper respiratory disease (2 sources)Allergic rhinitis due to pollen; Translations: [Allergic rhinitis due to pollen]97-97-0805NdowkwdLqbyc upper respiratory infections (4 sources)Acute pharyngitis, unspecified; Translations: [Acute pharyngitis] 01-28-7977EyxsxuwfWmkwam media and related conditions (2 sources)Dysfunction of eustachian tube; Translations: [Unspecified Eustachian tube disorder, left ear]33-67-4781KtobmndbGulqszzeiz disorders (not diabetes) (20 sources)Other specified diseases of pancreas; Translations: [Fatty pancreas] Onset: 94-30-1963XkwrjebzIyqwxugd codes; unclassified (4 sources)Sleep apnea; Translations: [Unspecified sleep apnea]50-82-9874Pjnoque Residual codes; unclassified (20 sources)Obstructive sleep apnea syndrome; Translations: [Obstructive sleep apnea (adult) (pediatric)]Onset: 612958-84-8066PmwxfoaHoevczsr codes; unclassified (17 sources)Obstructive sleep apnea (adult) (pediatric); Translations: [Obstructive sleep apnea (adult)(pediatric)]Onset: 10-57-3638SxwjwhmKqazakpi codes; unclassified (20 sources)Dependence on biphasic positive airway pressure ventilation; Translations: [Dependence on other enabling machines and devices]Onset: 595794-02-6051UfdxaxtPdbcozpa codes; unclassified (14 sources)Dependent edema; Translations: [Edema, unspecified]Onset: 03-08-2025 02-13-5795RnqkideeJcaczoee codes; unclassified (14 sources)Impaired exercise tolerance; Translations: [Other general symptoms and signs]Onset: 823546-57-6072KpvcqffqQifvckv disorders (20 sources)Hypothyroidism; Translations: [Unspecified acquired hypothyroidism] Onset: 59-41-7693NucuixgZrptvka on above:Added by Problem List Migration; 2013-02-28; Moved to Suppressed Mar 24 2013 9:03PM;Outside Source Comment: Comment on above: Added by Problem List Migration; 2013-02-28; Moved to Mares ppressed Mar 24 2013 9:03PM;Unclassified (1 source)CONTACT W/AND (SUSP) EXPOS COVID-19; Translations: [CONTACT W/AND (SUSP) EXPOS COVID-19]Onset: 85-53-1090Zvigrgfmmdhv (5 sources)Patient encounter utthae26-75-5437Pfallbzoogaq (2 sources)R68.89 - Other general symptoms and signs,R60.9 - Edema, unspecified,Z68.42 - Body mass index [BMI] 45.0-49.9, adultUnclassified (1 source)Obesity, class 3; Translations: [Obesity, class 3]Onset: 07-19-2024 Past or Other Problems Problem ClassificationProblemDateDocumented DateEpisodic/ChronicBiliary tract disease (18 sources)Acute cholecystitis; Translations: [Acute cholecystitis]Onset: 06-03-2023 Resolved: 37-12-0274IgofacbsQkuqtfevgvffm (20 sources)Disorder of intra-abdominal lymph nodes; Translations: [Localized enlarged lymph nodes]Onset: 800739-56-3884UxqlgslzFhkp disorders (5 sources)Mood disordersOnset: Other and unspecified benign neoplasm (20 sources)Tubular adenoma of colon; Translations: [Benign neoplasm of colon, unspecified]Onset: 093743-67-4914KcqxdxodTfwxv gastrointestinal disorders (20 sources)Dysphagia; Translations: [Dysphagia, unspecified]Onset: 01-23-2023 25-62-3983NpxplivvZxmgy gastrointestinal disorders (20 sources)Esophageal dysphagia; Translations: [Other dysphagia]Onset: 112537-84-6339BllafhroPbrvl liver diseases (20 sources)Large liver; Translations: [Hepatomegaly, not elsewhere classified] Onset: 168134-49-5615BnnimcvdTebvt lower respiratory disease (8 sources)Dyspnea; Translations: [Other respiratory abnormalities]Onset: 240004-46-4228MxuhfekwDvnye lower respiratory disease (1 source)Other forms of dyspnea; Translations: [OTHER FORMS OF DYSPNEA]Onset: 74-65-8616FuhgutieNhnlk nutritional; endocrine; and metabolic disorders (20 sources)Morbid obesity; Translations: [Morbid (severe) obesity due to excess calories]Onset: 09-21-2022 Resolved: 419691-77-1266WfvamqdPltti upper respiratory disease (20 sources)Stenosis of trachea; Translations: [Other diseases of trachea and bronchus]Onset: 531007-57-4813PdpqfknlPszuc upper respiratory disease (2 sources)Other specified diseases of upper respiratory tract; Translations: [Other specified diseases of upper respiratory tract]Onset: 29-99-1940Iuisswfx Residual codes; unclassified (1 source)Localized edema; Translations: [LOCALIZED EDEMA]Onset: 05-13-2022 EpisodicResidual codes; unclassified (1 source)Family history of malignant neoplasm of breast; Translations: [FAMILY HX MALIG NEOPLASM OF BREAST]Onset: 50-97-3243KvolptreMhegujes codes; unclassified (1 source)Family history of malignant neoplasm of kidney; Translations: [FAM HX MALIGNANT NEOPLASM KIDNEY]Onset: 92-29-0820ZhzohzatJxhmmzwp codes; unclassified (20 sources)Never smoked any substance; Translations: [Other specified health status]Onset: 01-23-2023 Resolved: 928437-98-5150CgbrtmbiKryqxicx codes; unclassified (20 sources)Edema of lower extremity; Translations: [Localized edema]Onset: 272458-17-0502NmswlealXjgcixnlfaba (1 source)Exposure to 2019 novel coronavirus; Translations: [Contact with and (suspected) exposure to COVID19]Unclassified (3 sources)Never smoked tobacco; Translations: [Never a smoker]Unclassified (5 sources)Onset: 220978-67-9217Nmtbkkmzddpj (1 source)Obesity, class 3; Translations: [Obesity, class 3]Onset: 07-19-2024 NEGATED: Highlighted row has not occurred!Residual codes; unclassified (12 sources)DiseaseEpisodic Results Test NameValueInterpretationReference RangeFacilityNo Panel Informationon 46-46-3912TgbcfSAMANTHA Bañuelos 03/08/2025 10:43 AM Ear Cerumen Removal Date/Time: 03/08/2025 9:55 AM Performed by: SAMANTHA Bañuelos Authorized by: SAMANTHA Bañuelos Consent: Consent obtained: Verbal Consent given by: Patient Risks, benefits, and alternatives were discussed: yes Risks discussed: Bleeding, infection, pain, TM perforation, incomplete removal and dizziness Alternatives discussed: No treatment, alternative treatment and referral Procedure details: Location: L ear and R ear Procedure type: curette Procedure type comment: Irrigation with warm water and hydrogen peroxide Procedure outcomes: cerumen removed Post-procedure details: Inspection: Ear canal clear Hearing quality: Improved Procedure completion: Tolerated Comments: Continued to have dizziness, but no worsening during or after procedureMayo Clinic [facility] joselin perf SPECT rest stron 34-81-2939RF joselin perf SPECT rest [facility] [place] [address] Nuclear Medicine Report Signed Patient: Bette Villafana MR#: [id number] [id number] : 1955 Acct:[id number] Age/Sex: 69 / F ADM Date: 02/26/25 Loc: Room: Type: [facility] Attending Dr: Caryl Meléndez MD Copies to: Andrea MD Caryl Berg MD Ordering Provider: Caryl Meléndez MD Date of Service: 02/26/25 NM/NM joselin perf SPECT rest str: cp NUCLEAR MYOCARDIAL PERFUSION DATE OF PROCEDURE: 02/27/2025 ATTENDING NEMATOLOGIST: Dr. Andrea Sam REQUESTING PHYSICIAN: Dr. Meléndez PROCEDURE: The patient received a stress dose of Lexiscan and was then injected with 29.5 millicuries of Technetium 99M Sestamibi. For rest images the patient was injected with 28.6 millicuries of Technetium 99M Sestamibi. FINDINGS: The raw cine images were reviewed. The post stress and rest perfusion images were reviewed as well as the computer quantification.? There was uniform uptake of the radiotracer with no perfusion defects identified.? On the gated portion of the study, the overall ejection fraction calculated at 69%.?Uniform thickening indicative of normal wall motion. TID score 0.89 is within normal limits. NM/NM joselin perf SPECT rest str IMPRESSION: 1. Normal SPECT Sestamibi myocardial perfusion. No ischemia or infarction. 2. Normal wall motion. 3. Normal left ventricular systolic function. LVEF is 69%.? Impression dictated by: Andrea Sam M.D. 02/27/2025 2:41 PM Dictation Location: [place] [address] Transcribed By: [facility] 02/27/25 1441 Dictated By: Andrea Sam MD 02/27/25 1440 Signed By: 02/27/25 1441NoUNC Health Appalachian Physician GroupBNP ser/plasOrdered By: Caryl Meléndez on 69-36-5530Cwxkepdrevq peptide B (Bld) [Mass/Vol]12.0 pg/mLNormal5-100 Wood County HospitalComment on above:Result Comment: PERFORMED BY: [place] [address] PATHOLOGIST HEALTH ASSESSMENT AND TREATMENT TEACHER LEXUS COX M.D.Performed By: #### BNP #### [address] [address] USAECH echo transthoracicon 46-13-6266HWG echo transthoracic [facility] [place] [address] [place], [place] [address] Echocardiogram Signed Patient: Bette Villafana MR#: [id number] [id number] : 1955 Acct:[id number] Age/Sex: 69 / F ADM Date: 02/26/25 Loc: Room: Type: [facility] Attending Dr: Caryl Meléndez MD Ordering Provider: Caryl Meléndez MD Date of Service: 02/26/25 ECH/ECH echo transthoracic: R06.02 - Shortness of breath Copies to: Caryl Meléndez MD BSA: 2.2 m2 BP: 122/66 mmHg HR: 75 Reason For Study: R06.02 - Shortness of breath History: HLD, DM, COVID Interpretation Summary Ejection Fraction = 55-60%. The left ventricular size and thickness are normal. No regional wall motion abnormalities noted. A variety of Doppler measurements indicate normal left ventricular diastolic function. There is trace tricuspid regurgitation. Right ventricular systolic pressure is normal. There is no comparison study available. Procedure/Quality: A two-dimensional transthoracic echocardiogram with color flow, Doppler and injection of contrast agent Definity was performed. The study was technically good in quality. Left Ventricle: The left ventricular size and thickness are normal. Ejection Fraction = 55-60%. A variety of Doppler measurements indicate normal left ventricular diastolic function. No regional wall motion abnormalities noted. Left Atrium: The left atrium appears normal in size. Right Atrium: The right atrium appears normal in size. Right Ventricle: The right ventricle is normal in size and function. Aortic Valve: The aortic valve is moderately sclerotic. No hemodynamically significant valvular aortic stenosis. No aortic regurgitation is present. Mitral Valve: The mitral valve is normal in structure. No significant mitral valve stenosis. There is no mitral regurgitation noted. Tricuspid Valve: The tricuspid valve is normal in structure. There is trace tricuspid regurgitation. Right ventricular systolic pressure is normal. Pulmonic Valve: The pulmonic valve is not well visualized. No significant pulmonic regurgitation. Arteries: The aortic root is normal size. Pericardium/Pleura: No pericardial effusion seen. IVC/Hepatic Veins: The inferior vena cava is normal in size, with a normal collapsibility index. Measurements with Normals IVSd: 1.1 cm (0.7-1.1 cm)LVIDd: 4.6 cm (3.7-5.4 cm) LVPWd: 1.1 cm (0.7-1.1 cm)LVIDs: 2.9 cm (2.3-3.6 cm) LA dimension: 3.8 cm (2.3-4.0 cm)Ao root diam: 3.1 cm(2.0-3.6 cm) asc Aorta Diam: 3.6 cm(2.1-3.4cm) Doppler with Normals RVSP(TR): 21.6 mmHg (18-35mmHg) LV V1 max: 101.0 cm/sec (0.7-1.7m/s)MV E max viky: 78.8 cm/sec(0.8-1.3m/s) MV A max viky: 81.9 cm/sec(0.0-0.0m/s) MV E/A: 0.96 (<1.5) MMode/2D Measurements Calculations RVDd: 2.9 cm FS: 37.4 % Ao root area: LVOT diam: 2.0 cm TAPSE: 3.0 cm EDV(Teich): 7.6 cm2 LVOT area: 3.3 cm2 RV S Viky: 98.6 ml 17.4 cm/sec ESV(Teich): 32.1 ml EF(Teich): 67.4 % __ LVLd ap4: 7.5 cm SV(MOD-sp4): LAV(MOD-sp4): LA A4 area: 14.1 cm2 EDV(MOD-sp4): 74.6 ml 28.3 ml LA length (vol): 126.0 ml 5.6 cm LVLs ap4: 6.5 cm ESV(MOD-sp4): 51.4 ml EF(MOD-sp4): 59.2 % Doppler Measurements Calculations MV dec time: MV V2 max: E/E' lat: 8.0 MV P1/2t max viky: 0.21 sec 99.4 cm/sec E/E' med: 8.9 93.4 cm/sec MV max PG: MV P1/2t: 76.0 msec 3.9 mmHg MVA(P1/2t): 2.9 cm2 MV V2 mean: MV dec slope: 62.7 cm/sec MV mean P.8 cm/sec2 1.8 mmHg MV V2 VTI: 34.6 cm MVA(VTI): 1.9 cm2 __ Ao V2 max: LV V1 max PG: TV max PG: TR max viky: 158.0 cm/sec 4.1 mmHg 17.0 mmHg 203.6 cm/sec Ao max PG: LV V1 mean PG: TR max P.6 mmHg 10.0 mmHg 2.0 mmHg RAP systole: 5.0 mmHg Ao mean PG: LV V1 mean: 6.0 mmHg 65.6 cm/sec Ao V2 mean: LV V1 VTI: 19.9 cm 120.0 cm/sec Ao V2 VTI: 33.5 cm MAHESH(I,D): 1.9 cm2 MAHESH(V,D): 2.1 cm2 Transcribed By: SCV Performed At: 02/26/25 1101 Signed By: Caryl Meléndez MD 02/27/[address] [place] [address] Physician GroupALL CBC WITH AUTO DIFFon 48-85-9871XJYCVXIFD ABSOLUTE AUTO0.1[facility] Basophils/100 WBC (Bld)0.7 %0.2 - 2.0 %[facility] HealthcareEosinophils/100 WBC (Bld)1 %0.9 - 7.0 %[facility] HealthcareErythrocyte distribution width (RBC) [Ratio]12.8 % 11.0 - 15.0 %[facility] HealthcareHematocrit (Bld) [Volume fraction]37.8 %36.0 - 48.0 %[facility] HealthcareHemoglobin (Bld) [Mass/Vol]12.5 g/dL12.0 - 16.0 g/dLNOMS HealthcareIMMATURE GRANULOCYTES ABS AUTO0.1HighNOMS HealthcareImmature granulocytes/100 WBC (Bld)1.3 %High0.0 - 0.5 %[facility] HealthcareLYMPHOCYTES ABSOLUTE AUTO1.6NOMS [facility] HospitalLymphocytes/100 WBC (Bld)20.4 %Low20.5 - 60.0 % [facility] (RBC) [Entitic mass]30 pg26.7 - 34.0 pgCox MonettHC (RBC) [Mass/Vol]33.1 g/dL29.9 - 35.2 g/dLCox MonettV (RBC) [Entitic vol] 90.6 fL81.0 - 99.0 fLSaint John's Aurora Community HospitalMONOCYTES ABSOLUTE AUTO0.5[facility] Monocytes/100 WBC (Bld)6.4 %1.7 - 12.0 %[facility] HospitalNEUTROPHILS ABSOLUTE AUTO 5.4NOCarondelet HealthNeutrophils/100 WBC (Bld)70.2 %43.0 - 75.0 %[facility] Platelet mean volume (Bld) [Entitic vol]9.8 fL9.5 - 13.5 fLMissouri Southern Healthcare EO #0.1N[facility]S [facility] QDY604JDYIThree Rivers Healthcare RBC4.17LowNOThree Rivers Healthcare WBC 7.6[facility] HospitalMLR HEMOGLOBIN A1Con 53-37-4965Pgqwaxj [Mass/Vol]137 mg/dLSaint John's Aurora Community HospitalHbA1c (Bld) [Mass fraction]6.4 %High4.5 - 6.2 %[facility] HospitalComment on above:ADA RECOMMENDED LIMIT 4.0 - 6.0 ADA THERAPEUTIC TARGET < 7.0 ACTION SUGGESTED > 7.0 No Panel Informationon 23-58-5887Wstoxunjsnndlp and review of laboratory results AbnormalSaint John's Aurora Community HospitalCLINISYNCNOMS [facility] MICROALB CREAT RATIO RANDOMon 60-74-0403YIHQFUHNHM URINE RJECKG875.94 mg/dL20.00 - 300.00 mg/dLSaint John's [facility] Hospital MICROALBUMIN URINE RANDOM<1.3NINF - 30.0 mg/dLSaint John's Aurora Community HospitalFPG ECG *CARDIOLOGY ONLY*on 80-52-8650LWL ECG *CARDIOLOGY ONLY*[facility] Main [address] [address] Electrocardiograph Report Signed Patient: Bette Villafana MR#: [id number] 969 : 1955 Acct:[id number] Age/Sex: 69 / F ADM Date: 12/13/24 Loc: EKGCARDIO Room: Type: [facility] Attending Dr: Caryl Meléndez MD Ordering Provider: [...] abnormality Abnormal ECG Confirmed by Caryl Meléndez ([id number]) on 12/14/2024 12:51:23 PM Referred By: Electronically Signed By: Caryl Meléndez Transcribed By: MUS Signed By Caryl Meléndez MD [address] [place] [address] Physician GroupALL THYROID STIM HORMONEon 10-02-2024 TSH Qn2.837 m[IU]/LNOMS HealthcareCLINISYNCNOMS HealthcareNo Panel Informationon 71-84-9918VjkrySAMANTHA Bañuelos 09/03/2024 2:09 PM Ear Cerumen Removal [...] Improved Procedure completion: Tolerated well, no immediate complicationsNOCenterPointe HospitalS [facility] Mercy HospitalCT CARDIAC SCORING WO IV CONTRASTon 36-14-7631BE CARDIAC SCORING WO IV CONTRASTInterpreted By: Sergio Pena, STUDY: CT CARDIAC SCORING WO IV CONTRAST; 08/22/2024 4:24 pm INDICATION: Signs/Symptoms:CAD Screening. COMPARISON: None. ACCESSION NUMBER(S): [id number] ORDERING CLINICIAN: LUL UNSPECIFIELDPROVIDER TECHNIQUE: Using prospective ECG gating, CT [...] coronary heart disease events. According to the [employer] Clinical Expert Consensus [...] modify other non-lipid coronary risk factors. Reference: [place] P et al. Circulation. 2007; 115:402-426 MACRO: None Signed by: Sergio Flores 08/23/2024 12:00 PM Dictation workstation: [id number] HealthMM TOMOSYNTHESIS SCREENING BIon 62-59-7344[place], [place] [address] Mammography Report Signed Patient: BETTE VILLAFANA MR#: [id number] : 1955 Acct:[id number] Age/Sex: 69 / F ADM Date: 05/30/24 Loc: MAMMO Attending Dr: BELLO HILTON Ordering Physician: BELLO HILTON Results: Date of Service: 05/30/24 Follow Up: Procedure(s): MM tomosynthesis screening BI Accession Number(s): [id number] cc: BELLO HILTON Patient Name: BETTE VILLAFANA MR#: [id number] : 1955 Exam Date: 05/30/2024 Ordering Doctor: [...] kidney cancer at age 52. LOCATION: [facility] BREAST COMPOSITION: The breasts are almost entirely [...] Signed By: 05/31/24 1609 DD/ 1609 TD/TT: Financial Administrator:TBHRadiology, Radiologist, - 05/31/2024 [place] [address] Mammography Report Signed Patient: BETTE VILLAFANA MR#: [id number] : 1955 Acct:[id number] Age/Sex: 69 / F ADM Date: 05/30/24 Loc: MAMMO Attending Dr: BELLO HILTON Ordering Physician: BELLO HILTON Results: Date of Service: 05/30/24 Follow Up: Procedure(s): MM tomosynthesis screening BI Accession Number(s): [id number] cc: BELLO HILTON Patient Name: BETTE VILLAFANA MR#: [id number] : 1955 Exam Date: 05/30/2024 Ordering Doctor: [...] kidney cancer at age 52. LOCATION: [facility] BREAST COMPOSITION: The breasts are almost entirely [...] Signed By: 05/31/24 1609 DD/ 1609 TD/TT: Financial Administrator: [facility] HospitalRadiology Study observation (narrative)[facility] TOMOSYNTHESIS SCREENING BIOrdered By: Radiologist Radiology on 72-80-5189LXJWSaint John's [facility] Hospital Work Phone: ct ABDOMEN WO/W CONon 13-84-2909AtjMichael [place] [id number] CT Scan Report Signed Patient: BETTE VILLAFANA MR#: [id number] : 1955 Acct:[id number] Age/Sex: 68 / F ADM Date: 04/18/24 Loc: LAB Attending Dr: Rebekah-Staff Physician Lainez Ordering Physician: Branden Brown M.D. Date of Service: 04/18/24 Procedure(s): CT abdomen wo/w con Accession Number(s): [id number] cc: BELLO IHLTON [place] [id number] Patient Name: BETTE VILLAFANA MRN: [id number] date: 1955 Sex: F Assigned Patient Location: LAB Current Patient Location: Accession/Order Number: [id number] Exam Date: 04/18/2024 08:05 Report Date: 04/19/2024 05:04 At the request of: NON-STAFF PHYSICIAN Procedure: CT abdomen wo/w con EXAMINATION: CT abdomen wo/w con HISTORY: Adrenal nodule, E27.9 COMPARISON: CT abdomen pelvis 05/15/2023 TECHNIQUE: Axial, Coronal, and Sagittal images were obtained without and/or with IV contrast as indicated by examination type. Dose reduction techniques were achieved by using automated exposure control and/or adjustment of mA and/or kV according to patient size and/or use of iterative reconstruction technique FINDINGS: LUNG BASES: No visible pulmonary or pleural disease. LIVER: No enlargement, atrophy, abnormal density, or significant focal lesion. BILIARY: Cholecystectomy. PANCREAS: No lesion, fluid collection, [...] most compatible with a benign adenoma. No additional follow-up recommended at this time. Electronically authenticated by: CAROL ASCENCIO Date: 04/19/2024 05:04 Dictated By: Carol Ascencio M.D. Signed By: 04/19/24506 DD/ 3 TD/TT: Financial Administrator:TBHRadiology, Radiologist, MD - 04/19/2024 [place] [address] CT Scan Report Signed Patient: BETTE VILLAFANA MR#: [id number] : 1955 Acct:[id number] Age/Sex: 68 / F ADM Date: 04/18/24 Loc: LAB Attending Dr: Non-Staff Physician Migel Ordering Physician: PhysicianRyanStaff Migel Date of Service: 04/18/24 Procedure(s): CT abdomen wo/w con Accession Number(s): [id number] cc: BELLO HILTON [place] [id number] Patient Name: BETTE VILLAFANA MRN: [id number] date: 1955 Sex: F Assigned Patient Location: LAB Current Patient Location: Accession/Order Number: [id number] Exam Date: 04/18/2024 08:05 Report Date: 04/19/2024 05:04 At the request of: NON-STAFF PHYSICIAN Procedure: CT abdomen wo/w con EXAMINATION: CT abdomen wo/w con HISTORY: Adrenal nodule, E27.9 COMPARISON: CT abdomen pelvis 05/15/2023 TECHNIQUE: Axial, Coronal, and Sagittal images were obtained without and/or with IV contrast as indicated by examination type. Dose reduction techniques were achieved by using automated exposure control and/or adjustment of mA and/or kV according to patient size and/or use of iterative reconstruction technique FINDINGS: LUNG BASES: No visible pulmonary or pleural disease. LIVER: No enlargement, atrophy, abnormal density, or significant focal lesion. BILIARY: Cholecystectomy. PANCREAS: No lesion, fluid collection, [...] most compatible with a benign adenoma. No additional follow-up recommended at this time. Electronically authenticated by: CAROL ASCENCIO Date: 04/19/2024 05:04 Dictated By: Carol Ascencio M.D. Signed By: 04/19/24506 DD/ 3 TD/TT: Financial Administrator: [facility] HospitalRadiology Study observation (narrative)[facility] HospitalCT ABDOMEN WO/W CONOrdered By: Radiologist Radiology on 03-91-9140HAJCSaint John's Aurora Community Hospital Work Phone: all DHEA SULFATEon 81-36-1872UWXV-ANFHURP24.8 ug/dL 20.4 - 186.6 ug/dLHermann Area District Hospital CORTISOLon 96-19-5717Ingxtylzitpvas and review of laboratory resultsAbnormalNOCarondelet HealthTB CORTISOL0.4 ug/dLAbnormal 6.2 - 19.4 ug/dLSaint John's Aurora Community HospitalComment on above:Please Note: The reference interval and flagging for this test is for an AM collection. If this is a PM collection please use: Cortisol PM: 2.3-11.9 Performed at: [employer] [id number] Bone Grinder: Saul Howard PhD, Phone: [phone] No Panel Informationon 03-73-8315HXKYPEPAZMHYZ HealthcareTBH CREATININEon 89-01-8521Hdxyxzqind [Mass/Vol]0.89 mg/dL0.55 - 1.02 mg/dLSaint John's [facility] Hospital GFR/1.73 sq M.predicted CKD-EPI (S/P/Bld) [Vol rate/Area]>60>=60 mL/min/1.73m 2 [facility] HospitalTB EGFR-NON AF SAUDI ARABIAN>60>=60 mL/min/1.73m 2NRusk Rehabilitation Center CLINISYNCNONY HealthcareCatecholamines 3 panel (P) [Mass/Vol]on 04-17-2024 DOPamine [Mass/Vol]<300 - 48 pg/mLUnSt. Francis HospitalEPINEPHrine (P) [Mass/Vol]<150 - 62 pg/mLToledo HospitalNorepinephrine (P) [Mass/Vol]624 pg/mL0 - 874 pg/mLUnSt. Francis HospitalPerformed at: - Lab[address] [id number] Bone Grinder: Estrella Leggett MD, Phone: [phone] County Community HospitalMetanephrines Plasmaon 04-13-2024 Annotation comment [Interpretation] NarrativeSee NoteUnSt. Francis HospitalComment on above:INTERPRETIVE INFORMATION: Metanephrines, Plasma (Free) This [...] developed and its performance characteristics determined by [employer]. It has not been cleared or approved by the US Food and Drug Administration. This test was performed in a CLIA certified laboratory and is intended for clinical purposes. Performed By: [facility] [address] [place] [address] Batching Operator: Geronimo Gomez MD, PhD CLIA Number: [id number] Metanephrines [Moles/Vol]<0.100.00 - 0.49 nmol/LUnSt. Francis HospitalNormetanephrine Free [Moles/Vol]0.51 nmol/L0.00 - 0.89 nmol/[facility] ClinicUnSt. Francis HospitalDexamethasoneon 87-36-7882Vterfzngjgudl [Mass/Vol]<50.0ng/dLToledo Hospital Comment on above:INTERPRETIVE INFORMATION: Dexamethasone, Serum or [...] developed and its performance characteristics determined by [employer]. It has not been cleared or approved by the US Food and Drug Administration. This test was performed in a CLIA certified laboratory and is intended for clinical purposes. Performed By: [facility] [address] [place] [address] Batching Operator: Geronimo Gomez MD, PhD CLIA Number: [id number] Dexamethasone [Mass/Vol]on 86-97-9844ZxorajvbexSt. Francis Hospital Adrenocorticotropic Hormone (ACTH)on 22-98-6936Ctxvftqqydlwn (P) [Mass/Vol]37.5 pg/mL7.2 - 63.3 pg/mLToledo HospitalComment on above: INTERPRETIVE INFORMATION: Adrenocorticotropic Hormone Reference interval based on samples collected between 7 a.m. and 10 a.m. No reference intervals established for p.m. collections. Pediatric reference values are the same as adults (Acta Paediatr Scand 1981;70:341-345). This assay measures intact ACTH 1-39; some types of synthetic ACTH and ACTH fragments are not detected by this assay. Performed By: [facility] [address] [place] [address] Batching Operator: Geronimo Gomez MD, PhD CLIA Number: [id number] Corticotropin (P) [Mass/Vol]on 45-84-6036NxjhssayszSt. Francis Hospital Catecholamines 3 panel (P) [Mass/Vol]on 78-65-4628UZGkxust [Mass/Vol]<30Normal 0-48UnBrown Memorial HospitalComment on above:Order Comment: TSH testing is performed using different testing methodology at [facility] than at other [facility]. Direct result comparisons should only be made within the same method.Performed By: #### 3016-3 #### IDANIA Alexandre ([id number]) [facility] ([facility]) [address] [place] [address] 86744MVVDRTXmhpr (P) [Mass/Vol]<96Pbvkmm4-38NpzrpumyvpBrown Memorial HospitalComment on above:Order Comment: TSH testing is performed using different testing methodology at [facility] than at other [facility]. Direct result comparisons should only be made within the same method.Performed By: #### 3016-3 #### IDANIA Alexandre ([id number]) [facility] ([facility]) [address] [place] [address] 01259Czpgzusvpxxsil (P) [Mass/Vol]624 pg/mLNormal0-874UnBrown Memorial HospitalComment on above:Order Comment: TSH testing is performed using different testing methodology at [facility] than at [facility]. Direct result comparisons should only be made within the same method.Performed By: #### 3016-3 #### IDANIA Alexandre ([id number]) [facility] ([facility]) [address] [place] [address] 28444Kbucdwftupabxoy 64-13-4224Nqpaylmtbtldf (P) [Mass/Vol]37.5 pg/mLNormal7.2-63.3UnBrown Memorial HospitalComment on above:Result Comment: INTERPRETIVE INFORMATION: Adrenocorticotropic Hormone Reference interval based on samples collected between 7 a.m. and 10 a.m. No reference intervals established for p.m. collections. Pediatric reference values are the same as adults (Acta Paediatr Scand 1981;70:341-345). This assay measures intact ACTH 1-39; some types of synthetic ACTH and ACTH fragments are not detected by this assay. Performed By: [facility] [address] [place] [address] Batching Operator: Geronimo Gomez MD, PhD CLIA Number: [id number] By: #### 2141-0 #### DARNELL CAROLYNN MONCADA) ([id number]) [address] [place], [place] [address]Xvefncdrsi 67-82-4415Mbqaxbyx [Mass/Vol]9.7 ug/dL2.5 - 20.0 ug/dLUnSt. Francis HospitalCortisol [Mass/Vol]9.7 ug/dLNormal 2.5-20.0Zanesville City HospitalComment on above:Performed By: #### 2143-6 #### IDANIA Alexandre ([id number]) [facility] ([facility]) [address] [place] [address] 50106Jrzmwpjz [Mass/Vol]on 92-16-5359Ijtapziwzfplnx and review of laboratory resultsNoalUniBucyrus Community HospitalDHEA-S [Mass/Vol]on 45-02-6788LBIGOWQX-BASED REFERENCE RANGES: PUBERTAL (CHELSEA) STAGE MALE FEMALE [...] may contact their local laboratory for further information.Toledo HospitalDH-Sulfateon 78-65-5768VVOL-S [Mass/Vol]106 ug/dL13 - 130 ug/dLToledo Hospital Dehydroepiandrosterone sulfateon 12-82-6097QPFC-S [Mass/Vol]106 ug/dLNormal 13-130UnBrown Memorial HospitalComment on above:Order Comment: MATURITY-BASED REFERENCE RANGES: PUBERTAL [...] information.Performed By: #### 2191-5 #### IDANIA Alexandre ([id number]) [facility] ([facility]) [address] [place] [address] 82214Fonhkcvqurtpukm 71-79-1708Iltwhxslelkip [Mass/Vol]<50.0Normal Zanesville City HospitalComment on above:Result Comment: INTERPRETIVE INFORMATION: Dexamethasone, [...] developed and its performance characteristics determined by [facility]. It has not been cleared or approved by the US Food and Drug Administration. This test was performed in a CLIA certified laboratory and is intended for clinical purposes. Performed By: [facility] [address] [place] [address] Batching Operator: Geronimo Gomez MD, PhD CLIA Number: [id number] By: #### 31612-4 #### [employer] [facility] ([facility]) ([id number]) [address], [place] [address]Advm T4 [Mass/Vol]on 00-56-1310Llditvicappiiu and review of laboratory resultsNormalUniUC HealthThyroxine Free testing is performed using different testing methodology at [facility]. Direct result comparisons should only be made within the same method.[facility] HospitalHbA1c (Bld) [Mass fraction]on 32-25-4402Ewnuatf glucose Estimated from glycated hemoglobin (Bld) [Mass/Vol]123 mg/dLNot Established [facility] ClevelandInterpretation and review of laboratory results [facility] CenterDiagnosis of Diabetes-Adults Non-Diabetic: < or = 5.6% Increased risk for developing diabetes: 5.7-6.4% Diagnostic of diabetes: > or = 6.5% Toledo HospitalUnSt. Francis HospitalAverage glucose Estimated from glycated hemoglobin (Bld) [Mass/Vol]123 mg/dLNormalNot St. Elizabeth HospitalComment on above:Order Comment: Diagnosis of Diabetes-Adults Non-Diabetic: < or = 5.6% Increased risk for developing diabetes: 5.7-6.4% Diagnostic of diabetes: > or = 6.5%Performed By: #### 4548-4 #### IDANIA Alexandre ([id number]) [facility] ([facility]) [address] [place] [address] 18769Ihitqmdguj A1Con 44-35-1994FzZ2i (Bld) [Mass fraction]5.9 % HighSee commentToledo HospitalHemoglobin A1c/Hemoglobin.total on 50-91-2459EsK8u (Bld) [Mass fraction]5.9 %HighSee Berger HospitalComment on above:Order Comment: Diagnosis of Diabetes-Adults Non-Diabetic: < or = 5.6% Increased risk for developing diabetes: 5.7-6.4% Diagnostic of diabetes: > or = 6.5%Performed By: #### 4548-4 #### IDAINA Alexandre ([id number]) [facility] ([facility]) [address] [place] [address] 10913MUFANPGWBFIGJ PLASMAon 52-93-4348Uarlxnaoqr comment [Interpretation] NarrativeSee NoteNoLakeHealth Beachwood Medical CenterComment on above:Result Comment: INTERPRETIVE INFORMATION: Metanephrines, Plasma [...] developed and its performance characteristics determined by [facility]. It has not been cleared or approved by the US Food and Drug Administration. This test was performed in a CLIA certified laboratory and is intended for clinical purposes. Performed By: [facility] [address] [place] [address] Batching Operator: Geronimo Gomez MD, PhD CLIA Number: [id number] By: #### METPL #### [facility] ([facility]) ([id number]) [address], [place] [address]Ydtqyeqyxxeco [Moles/Vol]<0.98Fzoytx9.00-0.49Zanesville City HospitalComment on above:Performed By: #### METPL #### [facility] ([facility]) ([id number]) [address], [place] [address]Cmqchnlslnglhjc Free [Moles/Vol]0.51 nmol/LNormal 0.00-0.89UnBrown Memorial HospitalComment on above:Performed By: #### METPL #### [facility] ([facility]) ([id number]) [address], [place] [address]Uw Panel Informationon 04-43-2681Ionrhnteqejsit and review of laboratory resultsNormalUniversIndiana University Health North HospitalUnSt. Francis HospitalRenal function 1999 panelon 52-79-4693Untjitn BCP dye [Mass/Vol]4.3 g/dL3.4 - 5.0 g/dLUnSt. Francis HospitalAnion gap [Moles/Vol]14 mmol/L10 - 20 mmol/[facility] Osteopathic ClinicCalcium [Mass/Vol]9.7 mg/dL8.6 - 10.6 mg/dLUnSt. Francis HospitalChloride [Moles/Vol]102 mmol/L98 - 107 mmol/[facility] Osteopathic ClinicCO2 [Moles/Vol]28 mmol/L21 - 32 mmol/[facility] Oste[facility] ClinicCreatinine [Mass/Vol]0.67 mg/dL0.50 - 1.05 mg/dLUnSt. Francis HospitaleGFR- PINF [facility] HospitalComfresenius medical care [facility] [place] on above:Calculations of estimated GFR are performed using the 2020 CKD-EPI Study Refit equation without therace variable for the IDMS-Traceable creatinine methods. https://jasn.asnjournals.org/content/early/ASN.9060889347 Glucose [Mass/Vol]101 mg/eVZpxa72 - 99 mg/dLUnSt. Francis Hospital Interpretation and review of laboratory resultsAbnormalUniUC HealthPhosphate [Mass/Vol]3.9 mg/dL2.5 - 4.9 mg/dLUnCity Hospital on above:The performance characteristics of phosphorus testing in heparinized plasma have been validated by the individual laboratory site where testing is performed. Testing on heparinized plasma is not approved by the FDA; however, such approval is not necessary.Potassium [Moles/Vol]4.4 mmol/L3.5 - 5.3 mmol/[facility] Osteopathic ClinicSodium [Moles/Vol]140 mmol/L136 - 145 mmol/[facility] Osteopathic ClinicUrea nitrogen [Mass/Vol]12 mg/dL6 - 23 mg/dLUnSt. Francis HospitalUnSt. Francis Hospital Albumin BCP dye [Mass/Vol]4.3 g/dLNormal3.4-5.0UnBrown Memorial HospitalComment on above:Performed By: #### 40624-9 #### IDANIA Alexandre ([id number]) [facility] ([facility]) [address] [place] [address] 05724Ianhh gap [Moles/Vol]14 mmol/RPmjmfn72-70QiofbroyfsBrown Memorial HospitalComment on above:Performed By: #### 98993-3 #### IDANIA Alexandre ([id number]) [facility] ([facility]) [address] [place] [address] 75632Qaelomx [Mass/Vol]9.7 mg/dLNormal8.6-10.6UnBrown Memorial HospitalComment on above:Performed By: #### 88540-3 #### IDANIA Alexandre ([id number]) [facility] ([facility]) [address] [place], [place] [address]Ziivjhqa [Moles/Vol]102 mmol/AKdqult11-118NjzadhqyjvBrown Memorial HospitalComment on above:Performed By: #### 98873-4 #### IDANIA Alexandre ([id number]) [facility] ([facility]) [address] [place], [place] [address]UJ6 [Moles/Vol]28 mmol/TPcmaii22-56RqopreaxlnBrown Memorial HospitalComment on above:Performed By: #### 59222-1 #### IDANIA Alexandre ([id number]) [facility] ([facility]) [address] [place] [address]Cvrbevpzvd [Mass/Vol]0.67 mg/dLNormal0.50-1.05Zanesville City HospitalComment on above:Performed By: #### 21841-3 #### IDANIA Alexandre ([id number]) [facility] ([facility]) [address] [place], [place] [address]IKB/1.73 sq M.predicted MDRD (S/P/Bld) [Vol rate/Area] mL/min/{1.73_m2}Normal>60UnBrown Memorial HospitalComment on above:Result Comment: Calculations of estimated GFR are performed using the 2020 CKD-EPI Study Refit equation without the race variable for the IDMS-Traceable creatinine methods. https://jasn.asnjournals.org/content//ASN.1793236876Hhrppctec By: #### 39005-4 #### IDANIA Alexandre ([id number]) [facility] ([facility]) [address] [place], [place] [address]Nefsvsg [Mass/Vol]101 mg/iSVlro16-00BsyfmvwpgnZanesville City HospitalComment on above:Performed By: #### 43606-8 #### IDANIA Alexandre ([id number]) [facility] ([facility]) [address] [place] [address] 29738Smrtfthaf [Mass/Vol]3.9 mg/dLNormal2.5-4.9UnBrown Memorial HospitalComment on above:Result Comment: The performance characteristics of phosphorus testing in heparinized plasma have bee n validated by the individual laboratory site where testing is performed. Testing on heparinizedplasma is not approved by the FDA; however, such approval is not necessary.Performed By: #### 52521-9 #### IDANIA Alexandre ([id number]) [facility] ([facility]) [address] [place] [address] 20[address]Zzuzbonfb [Moles/Vol]4.4 mmol/LNormal3.5-5.3Zanesville City HospitalComment on above:Performed By: #### 88374-1 #### IDANIA Alexandre ([id number]) [facility] ([facility]) [address] [place] [address] 64208Gbturp [Moles/Vol]140 mmol/XYkrhir221-820OeyltcqytcBrown Memorial HospitalComment on above:Performed By: #### 02009-7 #### IDANIA Alexandre ([id number]) [facility] ([facility]) [address] [place] [address] 23040Rstq nitrogen [Mass/Vol]12 mg/dLNormal6-23UnBrown Memorial HospitalComment on above:Performed By: #### 65990-1 #### IDANIA Alexandre ([id number]) [facility] ([facility]) [address] [place] [address] 470[address]ULP Ab Qnon 73-28-4384Dcpkhiryifbbeu and review of laboratory resultsAbnoalUniUC HealthNegative: <=60 U/mL Positive: >60 U/mLUnSt. Francis HospitalUnSt. Francis HospitalTS Qnon 91-76-0477EMG testing is performed using different testing methodology at [facility] than at other [facility]. Direct result comparisons should only be made within the same method. [facility]edo HospitalThyroid Peroxidase (TPO) Antibodyon 04-10-2024 TPO Ab Qn275 [IU]/mLHighNINFToledo HospitalThyroid Stimulating Hormoneon 88-06-3000ZEN Qn3.61 m[IU]/[facility] Thyroperoxidase Abon 24-73-8183AFC Ab Qn275 [IU]/mLHigh<=60Zanesville City HospitalComment on above:Order Comment: Negative: <=60 U/mL Positive: >60 U/mLPerformed By: #### 8099-4 #### IDANIA Alexandre ([id number]) [facility] ([facility]) [address] [place] [address] 037[address]Ojqrsaqaydjyj 41-27-0378JOW Qn3.61 m[IU]/LNormal0.44-3.98 [facility] City HospitalComment on above:Order Comment: TSH testing is performed using different testing methodology at [facility] than at other [facility]. Direct result comparisons should only be made within the same method.Performed By: #### 3016-3 #### IDANIA Alexandre ([id number]) [facility] ([facility]) [address] [place] [address] 11723Gcxtzqsnv, Freeon 55-75-4655Afch T4 [Mass/Vol]1.46 ng/dL0.78 - 1.48 ng/dLToledo HospitalThyroxine.freeon 00-34-9982Ewtd T4 [Mass/Vol]1.46 ng/dLNormal0.78-1.48[facility] Comment on above:Order Comment: Thyroxine Free testing is performed using different testing methodology at [facility] than at other [facility]. Direct result comparisons should only be made withinthe same method. Performed By: #### 3024-7 #### IDANIA Alexandre ([id number]) [facility] ([facility]) [address] [place] [address] 07001Pkwvrsycjp - Hematology and Cell countson 70-71-2744FbO8k (Bld) [Mass fraction]5.9 %NOMS HealthcareNo Panel Informationon 41-94-8189XDZZ HealthcareCreatinine [Mass/volume] in UrineOrdered By: Lilliam Dexter on 60-05-9679Kcrilbqhbu (U) [Mass/Vol]162.00 mg/dLWood County Hospital Comment on above:No reference range pgkoxpvcworJpV0b HPLC (Bld) [Mass fraction] on 05-12-9581DsU7e (Bld) [Mass fraction]6.0 %[facility] Microalbumin [Mass/volume] in UrineOrdered By: Lilliam Dexter on 10-19-2023 Albumin DL <= 20 mg/L (U) [Mass/Vol]0.7 mg/dL0.0-1.8[facility] HospitalNo Panel Informationon 50-31-5455Cnqulvb Vpjvkbe13YeoijjpojWood County HospitalUrine microalbumin/creatinine mass ratioOrdered By: Lilliam Dexter on 97-29-0972Jttqbnm/Creatinine DL <= 20 mg/L (U) [Mass ratio]4.3 mg/g0.0-30.0 [facility] HospitalComment on above:30-300 mg/g indicates an increased risk for diabetic nephropathy. Greater than 300 mg/g is consistent with clinical nephropathy. (Am. J. Kidney Disease 1995, 25:107)No Panel InformationOrdered By: Maricel Jones on 26-74-3578Zwjgw Strep (POC)[facility] HospitalActivated partial thromboplastin time (aPTT) in platelet poor plasma by coagulation aOrdered By: Serg Boucher on 91-06-0661aKWM Coag (PPP) [Time]27.8 s25.1-36.5FMemorial Health SystemComment on above:A hematocrit value greater than 55% may lead to inaccurate results in coagulation testing. Patientshaving hematocrit values >55% require a special collection tube for coagulation studies. Please contact the laboratory at [phone] for redraw instructions.Basophils Auto (Bld) [#/Vol]Ordered By: Serg Boucher on 35-13-6052Esjovnljh (Bld) [#/Vol]0.1 10*3/uL0.0-0.2FMemorial Health SystemBasophils/100 WBC Auto (Bld)Ordered By: Serg Boucher on 08-06-2023 Basophils/100 WBC (Bld)1.1 %.[facility] HospitalCalcium [Mass/volume] in Serum or PlasmaOrdered By: Serg Boucher on 46-36-3048Ybidpbr [Mass/Vol]8.7 mg/dL8.6-10.3FMemorial Health SystemCarbon dioxide, total [Moles/volume] in Serum or PlasmaOrdered By: Serg Boucher on 39-06-9531PH2 [Moles/Vol]26.4 mmol/L21.0-31.0[facility] HospitalChloride [Moles/volume] in Serum or PlasmaOrdered By: Serg Boucher on 55-36-5336Kcplcwrv [Moles/Vol]106 mmol/F56-388JkvesjsptWood County HospitalCreatine kinase [Enzymatic activity/volume] in Serum or PlasmaOrdered By: Serg Boucher on 88-44-5401OR [Catalytic activity/Vol]91 U/G74-512TshpamxnmWood County HospitalCreatinine [Mass/volume] in Serum or PlasmaOrdered By: Serg Boucher on 68-14-0723Jffppqcuoy [Mass/Vol]0.67 mg/dL0.60-1.20[facility] HospitalEosinophils Auto (Bld) [#/Vol]Ordered By: Serg Boucher on 08-06-2023 Eosinophils (Bld) [#/Vol]0.1 10*3/uL0.0-0.45[facility] Eosinophils/100 WBC Auto (Bld)Ordered By: Serg Boucher on 08-06-2023 Eosinophils/100 WBC (Bld)1.0 %.[facility] County HospitalErythrocyte distribution width Auto (RBC) [Ratio]Ordered By: Serg Boucher on 08-06-2023 Erythrocyte distribution width (RBC) [Ratio]14.6 %11.9-15.3FMemorial Health SystemGlucose [Mass/volume] in Serum or PlasmaOrdered By: Serg Boucher on 83-68-3107Xkywive [Mass/Vol]111 mg/vL88-648LcvudwywcWood County Hospital Comment on above:ADA recommended reference rangeRandom Glucose Reference Range is dependent on time and content of last meal. Glucose of more than 200 mg/dL in a nonstressed, ambulatory subject supports the diagnosisof Diabetes Mellitus. Hematocrit Auto (Bld) [Volume fraction]Ordered By: Serg Boucher on 08-06-2023 Hematocrit (Bld) [Volume fraction]33.0 %34.0-46.4FMemorial Health SystemHemoglobin [Mass/volume] in BloodOrdered By: Serg Boucher on 08-06-2023 Hemoglobin (Bld) [Mass/Vol]10.7 g/dL11.8-15.4FMemorial Health System INR in Platelet poor plasma by Coagulation assayOrdered By: Serg Boucher on 19-28-5386PCO Coag (PPP) [Relative time]1.0 {INR}[facility] County HospitalComment on above:INR Therapeutic Range A) Pre- and [...] by Automated counOrdered By: Serg Boucher on 83-67-2037PHH corrected for nucl RBC Auto (Bld) [#/Vol]11.6 10*3/uL3.8-11.6FMemorial Health SystemLymphocytes Auto (Bld) [#/Vol]Ordered By: Serg Boucher on 08-06-2023 Lymphocytes (Bld) [#/Vol]1.9 10*3/uL1.00-4.8[facility] Lymphocytes/100 WBC Auto (Bld)Ordered By: Serg Boucher on 08-06-2023 Lymphocytes/100 WBC (Bld)16.6 %.[facility] CenterH Auto (RBC) [Entitic mass]Ordered By: Serg Boucher on 82-30-6306UWP (RBC) [Entitic mass]29.2 pg24.7-34.3FMemorial Health SystemMCHC Auto (RBC) [Mass/Vol]Ordered By: Serg Boucher on 45-43-0656URDA (RBC) [Mass/Vol]32.5 g/dL32.0-35.0[facility] HospitalMCV Auto (RBC) [Entitic vol]Ordered By: Serg Boucher on 96-54-4259DYZ (RBC) [Entitic vol]89.6 nN34-000LjmszegmfWood County Hospital Monocyte distribution width [Entitic volume] in Blood by AutomatedOrdered By: Serg Boucher on 31-30-7092Dhdfmlts distribution width Auto (Bld) [Entitic vol] 15.33 %0.00-20.00[facility] HospitalMonocytes Auto (Bld) [#/Vol] Ordered By: Serg Boucher on 48-40-8909Oordsovja (Bld) [#/Vol]0.8 10*3/uL0.0-0.8 [facility] HospitalMonocytes/100 WBC Auto (Bld)Ordered By: Serg Boucher on 03-73-4644Ftqkjywas/100 WBC (Bld)6.7 %.[facility] County HospitalNatriuretic peptide B [Mass/Vol]Ordered By: Serg Boucher on 08-06-2023 Natriuretic peptide B (Bld) [Mass/Vol]38.0 pg/mL5-100Wood [facility] HospitalNeutrophils Auto (Bld) [#/Vol]Ordered By: Serg Boucher on 08-06-2023 Neutrophils (Bld) [#/Vol]8.7 10*3/uL1.8-7.7FMemorial Health System Neutrophils/100 WBC Auto (Bld)Ordered By: Serg Boucher on 08-06-2023 Neutrophils/100 WBC (Bld)74.6 %.[facility] HospitalNo Panel InformationOrdered By: Serg Boucher on 49-89-2168Lvaldavjb GFR (CKD-EPI)> 60.0 mL/MinWood County HospitalPharmacy Creatinine Clearance (Chem88.45 [facility] HospitalNucleated erythrocytes [Presence] in Blood by Automated countOrdered By: Serg Boucher on 26-72-6933Ohqrixbki RBC Auto Ql (Bld) 0.1 /100{WBC}0-0.5FMemorial Health SystemPlatelet mean volume Auto (Bld) [Entitic vol]Ordered By: Serg Boucher on 52-62-9143Uckqvpsd mean volume (Bld) [Entitic vol]7.7 fL6.3-10.7FMemorial Health SystemPlatelets Auto (Bld) [#/Vol]Ordered By: Serg Boucher on 62-68-4838Nmjdxmlde (Bld) [#/Vol]322 10*3/fR347-933BquplyvwiWood County HospitalPotassium [Moles/volume] in Serum or PlasmaOrdered By: Serg Boucher on 20-12-7139Txxxfbnlb [Moles/Vol]3.9 mmol/L 3.5-5.1FMemorial Health SystemProthrombin time (PT)Ordered By: Serg Boucher on 36-95-9825GB Coag (PPP) [Time]11.4 s9.0-12.9[facility] HospitalComment on above:A hematocrit value greater than 55% may lead to inaccurate results in coagulation testing. Patientshaving hematocrit values >55% require a special collection tube for coagulation studies. Please contact the laboratory at [phone] for redraw instructions.RBC Auto (Bld) [#/Vol]Ordered By: Serg Boucher on 44-24-0236CDP (Bld) [#/Vol]3.68 10*6/uL3.60-5.00Mer[facility] Health Urbana Hospitalerum or plasma anion gap determinationOrdered By: Serg Boucher on 50-22-9780Amrvh gap [Moles/Vol]7.5 mmol/L6.0-15.0Mer[facility] Health Urbana Hospitalodium [Moles/volume] in Serum or PlasmaOrdered By: Serg Boucher on 87-72-0334Xajazh [Moles/Vol]136 mmol/Z774-619LzpinjtxwWood County Hospital Troponin I.cardiac [Mass/volume] in Serum or Plasma by Detection limit <= 0.01 ng/Ordered By: Serg Boucher on 67-75-2766Olnjsnpr I.cardiac DL <= 0.01 ng/mL [Mass/Vol]3.0 pg/mL0.0-15.0[facility] County HospitalUrea nitrogen [Mass/volume] in Serum or PlasmaOrdered By: Serg Boucher on 95-97-1802Gapi nitrogen [Mass/Vol]11 mg/dL7-25Wood County HospitalWBC Auto (Bld) [#/Vol]Ordered By: Serg Boucher on 03-09-6900SDJ (Bld) [#/Vol]11.6 10*3/uL 3.8-11.6FMemorial Health SystemAmbulatory Visit Summaryon 06-03-2023 Ambulatory Visit Summary BETTE [...] FALK, Mayito Chowdhury Where: General Surgery Celia/Kendell [facility] General Surgery Office/Clinic Noteon 49-88-5059Xsuruxz Surgery Office/Clinic NoteChief Complaint s/p cholecystectomy by HPI Staff Bette is a 68 y.o. female here for s/p cholecystectomy done on 05/16/[address] Yang at [facility] Patient denies excessive bleeding/pain/discharge/fever/chills. last colonoscopy at 64 y.o. [facility] History of Present Illness Bette Villafana is a 68-year-old female status post laparoscopic cholecystectomy performed by Dr. Yang. He is out of town. I am seeing the patient as a postop visit for him. Surgery was done on 05/16/2023 for cholecystitis where she was found to have tnhmb-st-avjnyph gangrenous cholecystitis. During the procedure, a drain [...] female status post laparoscopic cholecystectomy performed at [facility] by Dr. Yang for gangrenous cholecystitis. 1. 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 We will provide a note for this. Portions of this record may have been created with voice recognition artificial intelligence software, specifically [employer], [employer] and or [employer]. Substitutions may have occurred voice recognition and artificial intelligence software. Documentation services were performed after patient or guardian consented to allow [employer] to record this visit. JONAH foot specialist and provider reviewed before signing. JONAH: [...] Given Postpone due to refusal SARS-CoV-2 (COVID-19) mRNAMUL.ORD![id number] 05/11/2022 Recorded SARS-CoV-2 (COVID-19) mRNA BNT-162b2 vax 04/02/2021 Recorded SARS-CoV-2 (COVID-19) mRNA BNT-162b2 vax 09/15/2020 Recorded SARS-CoV-2 (COVID-19) mRNA BNT-162b2 vax 08/25/2020 RecordedCincinnati VA Medical CenterComment on above:Result Comment: Electronically Signed By: Yolis FALK, Emiliano Correa\.br\Date and Time Signed: 06/03/23 09:25 EST\.br\Electronically Co- Signed By: Tiana Drake\.br\Date and Time Co-Signed: 06/03/23 09:08 EST Provider Letteron [id number] Letter June 03, 2023 [place] [address] : 1955 To Whom It May Concern, Please excuse above patient from work. Date of Illness: From: 05/16/2023 To: 06/18/2023 May Return to Work On: 06/18/2023 Restrictions: No restrictions Comments: _ Sincerely, Emiliano Lagos MD [facility] [place] General SurgeryNoMagruder Memorial HospitalPathology Noteon 05-26-2023 Pathology [id number]#1.00TIFOhio Valley Surgical HospitalConsultation Noteon 64-33-6330Sfuntpdskeej Note [id number]#1.00TIFFCincinnati VA Medical CenterConsultation [id number]#1.00TIFFWhite HospitalConsultation Note [id number]#1.00TIFOhio Valley Surgical HospitalLab Reportson 07-28-9233Nqb Reports [id number]#1.00TIFOhio Valley Surgical HospitalLab [id number]#1.00TIFF[address]Fisher [address] Psychiatric CenterLab [id number]#1.00TIFF NormalGlenbeigh HospitalOperative Reporton 03-85-7962Gtsrqxbzg Report [id number]#1.00TIFFNormalNorthern Regional Hospitaler Brook Lane Psychiatric CenterLaboratory - Chemistry and Chemistry - challengeon 31-25-8445Aqwqtxr [Mass/Vol]2.5 g/dLWood County HospitalALP [Catalytic activity/Vol] 76 U/LFMemorial Health SystemALT [Catalytic activity/Vol]32 U/L [facility] HospitalAST [Catalytic activity/Vol]32 U/[facility]eter[facility] Health AdministrationBilirubin [Mass/Vol]0.7 mg/dLWood County HospitalCalcium [Mass/Vol]8.2 mg/dLWood County HospitalChloride [Moles/Vol]97 mmol/[facility]eter[facility] Health AdministrationCO2 [Moles/Vol]31 mmol/L [facility] HospitalCreatinine [Mass/Vol]0.70 mg/dLWood County HospitalGFR/1.73 sq M.predicted MDRD (S/P/Bld) [Vol rate/Area] mL/min/{1.73_m2}[facility] County HospitalGlucose [Mass/Vol]148 mg/dL [facility] HospitalPotassium [Moles/Vol]4.3 mmol/[facility] Health AdministrationProtein [Mass/Vol]6.2 g/dLMercy Health Urbana Hospitalodium [Moles/Vol]134 mmol/[facility] Health AdministrationUrea nitrogen [Mass/Vol]4.0 mg/dLWood County HospitalNo Panel Informationon 70-14-6584Bbpqpzfvr GFR (Non-> 60 mL/minWood County HospitalLaboratory - Chemistry and Chemistry - challengeon 05-16-2023 Albumin [Mass/Vol]3.0 g/dLWood County HospitalALP [Catalytic activity/Vol]78 U/[facility] Health AdministrationALT [Catalytic activity/Vol] 21 U/V[facility] Health AdministrationAST [Catalytic activity/Vol]11 U/L [facility] HospitalBilirubin [Mass/Vol]1.0 mg/dLWood County HospitalCalcium [Mass/Vol]8.7 mg/dLWood County Hospital Chloride [Moles/Vol]99 mmol/[facility] Health AdministrationCO2 [Moles/Vol] 28.5 mmol/[facility] Health AdministrationCreatinine [Mass/Vol]0.79 mg/dL [facility] HospitalGFR/1.73 sq M.predicted MDRD (S/P/Bld) [Vol rate/Area]mL/min/{1.73_m2}[facility] HospitalGlucose [Mass/Vol]134 mg/dLWood County HospitalPotassium [Moles/Vol]3.8 mmol/LFMemorial Health SystemProtein [Mass/Vol]6.8 g/dLMercy Health Urbana Hospitalodium [Moles/Vol]134 mmol/[facility] Health AdministrationUrea nitrogen [Mass/Vol]7.0 mg/dLWood County HospitalNo Panel Informationon 71-49-2782Oeachtlcu GFR (Non-> 60 mL/minWood County HospitalMM TOMOSYNTHESIS SCREENING BIon 84-72-4122KpiZoar, [place] [address] Mammography Report Signed Patient: BETTE VILLAFANA MR#: [id number] : 1955 Acct:[id number] Age/Sex: 68 / F ADM Date: 05/11/23 Loc: MAMMO Attending Dr: BELLO HILTON Ordering Physician: BELLO HILTON Results: Date of Service: 05/11/23 Follow Up: Procedure(s): MM tomosynthesis screening BI Accession Number(s): [id number] cc: BELLO HILTON Patient Name: BETTE VILLAFANA MR#: [id number] : 1955 Exam Date: 05/11/2023 Ordering Doctor: DR BELLO HILTON M.D. RADIOLOGY REPORT PROCEDURE: MM TOMOSYNTHESIS SCREENING BI COMPARISON: MG MAMM SCREEN 3D ALFA CAD, 05/11/2022. MG MAMM SCREEN 3D ALFA CAD, 05/05/2021. MG MAMM SCREEN ALFA W CAD, 05/05/2020. MG MAMM ALFA SCRN W CAD DIG, 04/19/2013. INDICATIONS: screening Calculator Name NCI Breast Cancer Risk Assessment Tool 5 Year Breast Cancer Risk 3.00% Lifetime Breast Cancer Risk 10.60% Personal Breast Cancer No Personal Ovarian Cancer No Treatments None Family Cancers Mother with breast cancer at age 75; Aunt-maternal with breast cancer at age 70; Brother with kidney cancer at age 50. LOCATION: [facility] BREAST COMPOSITION: Almost entirely fatty. FINDINGS: DIAGNOSTIC [...] BIOPSIED. Dictated by: Carol Ascencio M.D. on 05/11/2023 at 15:47 Approved by: Carol Ascencio M.D. on 05/11/2023 at 15:53 Dictated By: Carol Ascencio M.D. Signed By: 05/11/23 1554 DD/ 1554 TD/TT: Financial Administrator:TBHRadiology, Radiologist, - 05/11/2023 [place] [address] Mammography Report Signed Patient: BETTE VILLAFANA MR#: [id number] : 1955 Acct:[id number] Age/Sex: 68 / F ADM Date: 05/11/23 Loc: MAMMO Attending Dr: BELLO HILTON Ordering Physician: BELLO HILTON Results: Date of Service: 05/11/23 Follow Up: Procedure(s): MM tomosynthesis screening BI Accession Number(s): [id number] cc: BELLO HILTON Patient Name: BETTE VILLAFANA MR#: [id number] : 1955 Exam Date: 05/11/2023 Ordering Doctor: DR BELLO HILTON M.D. RADIOLOGY REPORT PROCEDURE: MM TOMOSYNTHESIS SCREENING BI COMPARISON: MG MAMM SCREEN 3D ALFA CAD, 05/11/2022. MG MAMM SCREEN 3D ALFA CAD, 05/05/2021. MG MAMM SCREEN ALFA W CAD, 05/05/2020. MG MAMM ALFA SCRN W CAD DIG, 04/19/2013. INDICATIONS: screening Calculator Name NCI Breast Cancer Risk Assessment Tool 5 Year Breast Cancer Risk 3.00% Lifetime Breast Cancer Risk 10.60% Personal Breast Cancer No Personal Ovarian Cancer No Treatments None Family Cancers Mother with breast cancer at age 75; Aunt-maternal with breast cancer at age 70; Brother with kidney cancer at age 50. LOCATION: [facility] BREAST COMPOSITION: Almost entirely fatty. FINDINGS: DIAGNOSTIC [...] BIOPSIED. Dictated by: Carol Ascencio M.D. on 05/11/2023 at 15:47 Approved by: Carol Ascencio M.D. on 05/11/2023 at 15:53 Dictated By: Carol Ascencio M.D. Signed By: 05/11/23 1554 DD/ 1554 TD/TT: Financial Administrator: [facility] HospitalRadiology Study observation (narrative)[facility] TOMOSYNTHESIS SCREENING BIOrdered By: Radiologist Radiology on 06-91-8807WZLASaint John's Aurora Community Hospital Work Phone: GLYCOHEMOGLOBIN A1Con [phone] RECOMMENDATIONSEE BELOWMercy Health Perrysburg HospitalComment on above:Result Comment: ADA RECOMMENDED LIMIT 4.0 - 6.0 ADA THERAPEUTIC TARGET < 7.0 ACTION SUGGESTED > 7.0Performed By: #### PTT, PT #### [facility] [address] [place] [address] Dr. Vivian FallGlucose [Mass/Vol]120 mg/dLNoSheltering Arms HospitalComment on above:Performed By: #### PTT, PT #### [facility] [address] [address] [address] Vivian FallHbA1c (Bld) [Mass fraction]5.8 %Normal4.5-6.2The Galion Hospitalment on above:Performed By: #### PTT, PT #### [facility] [address] [address] [address] Vivian FallLIPID PROFILEon 09-85-9951RMJL-HDL RATIO NORMSEE BELOWMercy Health Perrysburg HospitalComment on above:Result Comment: 3.3 - 4.4 LOW RISK 4.4 - 7.1 AVERAGE RISK 7.1 - 11.0 MODERATE RISK >11.0 HIGH RISKPerformed By: #### PTT, PT #### [facility] [address] [place] [address] Dr. Vivian FallCholesterol [Mass/Vol]171 mg/dLNormal<=200The [facility] Comment on above:Performed By: #### PTT, PT #### [facility] [address] [place] [address] Dr. Vivian Isaacsesterol in HDL [Mass/Vol]52 mg/aSEupyxb37-54Uth [facility] SystemComment on above:Performed By: #### PTT, PT #### [facility] [address] [place] [address] Dr. Vivian FallCholesterol in LDL [Mass/Vol]89.8 mg/dLMercy Health Perrysburg HospitalComment on above:Performed By: #### PTT, PT #### [facility] [address] [place] [address] Dr. Vivian Isaacsesteredvin.total/Cholesterol in HDL [Mass ratio]3.3 {ratio} NormalThe [facility] SystemComment on above:Performed By: #### PTT, PT #### [facility] [address] [place] [address] Dr. Vivian FallHDL NORMAL> or = 60 mg/dl - LOW CARDIOVASCULAR RISK <40 mg/dl - HIGH CARDIOVASCULAR RISKMercy Health Perrysburg HospitalComment on above:Performed By: #### PTT, PT #### [facility] [address] [place] [address] Dr. Vivian Ceja CALC NORMALSEE BELOWMercy Health Perrysburg HospitalComment on above:Result Comment: <100 mg/dl OPTIMAL 100 - 129 mg/dl NEAR OR ABOVE OPTIMAL 130 - 159 mg/dl BORDERLINE HIGH 160 - 189 mg/dl HIGH >190 mg/dl VERY HIGH Performed By: #### PTT, PT #### [facility] [address] [place] [address] Dr. Vivian FallTriglyceride [Mass/Vol]146 mg/dLNormal<=150The [facility] Comment on above:Performed By: #### PTT, PT #### [facility] [address] [place] [address] Dr. Vivian RodriguezLDL CALC29.2 mg/dLNoSheltering Arms HospitalComment on above: Performed By: #### PTT, PT #### [facility] [address] [place] [address] Dr. Vivian FallPROF 14(COMP METB)on 33-38-2557Vyjzabg [Mass/Vol]3.6 g/dLNormal 3.4-5.0The [facility] SystemComment on above:Performed By: #### CMP, LIPID #### [facility] [address] [place] [address] Dr. Vivian FallAlbumin/Globulin [Mass ratio]0.9 {ratio}NormalThe [facility] SystemComment on above:Performed By: #### CMP, LIPID #### [facility] [address] [place] [address] Dr. Vivian Ellison [Catalytic activity/Vol]81 U/DDukczy32-349Dvq [facility] SystemComment on above:Performed By: #### CMP, LIPID #### [facility] [address] [place] [address] Dr. Vivian Bauman [Catalytic activity/Vol]22 U/MDxdcsm08-55Thb [facility] SystemComment on above:Performed By: #### CMP, LIPID #### [facility] [address] [place] [address] Dr. Yilan ChangAnion gap [Moles/Vol]12.5 mmol/LNormalSelect Medical [facility] Rehabilitation Hospital Comment on above:Performed By: #### CMP, LIPID #### [facility] [address] [place] [address] Dr. Vivian FallAST [Catalytic activity/Vol]15 U/ZZflavg65-48Osw [facility] SystemComment on above:Performed By: #### CMP, LIPID #### [facility] [address] [place] [address] Dr. Vivian FallBilirubin [Mass/Vol]0.6 mg/dLNormal0.2-1.0The [facility] Comment on above:Performed By: #### CMP, LIPID #### [facility] [address] [place] [address] Dr. Vivian FallCalcium [Mass/Vol]9.1 mg/dLNormal8.5-10.1[facility] Comment on above:Performed By: #### CMP, LIPID #### [facility] [address] [place] [address] Dr. Vivian FallChloride [Moles/Vol]103 mmol/QTflnpg31-263JswSelect Medical Trihealth Rehabilitation Hospital Comment on above:Performed By: #### CMP, LIPID #### [facility] [address] [place] [address] Dr. Vivian FallCO2 [Moles/Vol]27.6 mmol/JZqymxa56.0-32.0[facility] Comment on above:Performed By: #### CMP, LIPID #### [facility] [address] [place] [address] Dr. Vivian FallCreatinine [Mass/Vol]0.78 mg/dLNormal0.55-1.02The [facility] SystemComment on above:Performed By: #### CMP, LIPID #### [facility] [address] [place] [address] Dr. Vivian Perry-AF SAUDI ARABIAN>60Normal>=60The [facility] SystemComment on above:Performed By: #### CMP, LIPID #### [facility] [address] [place] [address] Dr. Yilan ChangEGFR-NON AF SAUDI ARABIAN>60Normal>=60The [facility] SystemComment on above:Performed By: #### CMP, LIPID #### [facility] [address] [address] [address] Vivian FallGlobulin (S) [Mass/Vol]3.8 g/dLNormalThe [facility] SystemComment on above:Performed By: #### CMP, LIPID #### [facility] [address] [place] [address] Dr. Vivian FallGlucose [Mass/Vol]105 mg/eFQmgyhb61-609Zmv [facility] Comment on above:Performed By: #### CMP, LIPID #### [facility] [address] [place] [address] Dr. Vivian FallPotassium [Moles/Vol]4.1 mmol/LNormal3.5-5.1The [facility] Comment on above:Performed By: #### CMP, LIPID #### [facility] [address] [place] [address] Dr. Vivain FallProtein [Mass/Vol]7.4 g/dLNormal6.4-8.2[facility] Comment on above:Performed By: #### CMP, LIPID #### [facility] [address] [place] [address] Dr. Vivian FallSodium [Moles/Vol]139 mmol/HGnbdkg516-135Vac [facility] Comment on above:Performed By: #### CMP, LIPID #### [facility] [address] [place] [address] Dr. Vivian FallUrea nitrogen [Mass/Vol]11.0 mg/dLNormal7.0-18.0The [facility] SystemComment on above:Performed By: #### CMP, LIPID #### [facility] [address] [place] [address] Dr. Vivian FallUrea nitrogen/Creatinine [Mass ratio]14.1 mg/mgNormalThe [facility] SystemComment on above:Performed By: #### CMP, LIPID #### [facility] [address] [place] [address] Dr. Vivian FallVITAMIN B12on 35-61-6568Arebfsdyu (Vitamin B12) [Mass/Vol]373.0 pg/uCEtgkpq157.0-986.0The Gal[facility] Hospitalment on above:Performed By: #### PTT, PT #### [facility] [address] [place] [address] Dr. Vivian FallVITAMIN D 25 OHon 07-37-3987SCG D 25-OH16.1 ng/mLNormalThe [facility] SystemComment on above:Performed By: #### PTT, PT #### [facility] [address] [place] [address] Dr. Vivian Viramontes RANGESTriHealthComment on above: Result Comment: <20 ng/mL Vit D deficient 20 - <30 ng/mL Vit D insufficient 30 - 100 ng/mL Vit D sufficient >100 ng/mL Potential ToxicityPerformed By: #### PTT, PT #### [facility] [address] [place] [address] Dr. Vivian Leung 62-66-5664Imparsiyjqp peptide B (Bld) [Mass/Vol]223.0 pg/mL Normal<=900.0The [facility]ion Hospitalment on above:Performed By: #### CMP, HSTROPN, BNP #### [facility] [address] [place] [address] Dr. Vviian Mariscal AUTO DIFFon 45-80-5588PRSX #0.0 103/ulNormal0.0-0.1The [facility] SystemComment on above:Performed By: #### CBC #### [facility] [address] [place] [address] Dr. Vivian FallBasophils/100 WBC (Bld)0.2 %Normal0.2-2.0The [facility] Comment on above:Performed By: #### CBC #### [facility] [address] [place] [address] Dr. Park ChangEQuang #0.0 103/ulNormal0.0-0.7The Diana HospitalComment on above: Performed By: #### CBC #### [facility] [address] [address] [address] Vivian Jacquesosinophils/100 WBC (Bld)0.0 %Critically low0.9-7.0The [facility] SystemComment on above:Performed By: #### CBC #### [facility] [address] [place] [address] Dr. Vivian Jacquesrythrocyte distribution width (RBC) [Ratio]13.0 %Lmumsb08.0-15.0 The [facility] SystemComment on above:Performed By: #### CBC #### [facility] [address] [place] [address] Dr. Vivian FallHematocrit (Bld) [Volume fraction]36.2 %Phpbqt15.0-48.0The [facility] SystemComment on above:Performed By: #### CBC #### [facility] [address] [place] [address] Dr. Vivian FallHemoglobin (Bld) [Mass/Vol]12.2 g/iRJnbqkq22.0-16.0The [facility] SystemComment on above:Performed By: #### CBC #### [facility] [address] [place] [address] Dr. Vivian Wang #0.08 10e3/ulCritically high0.00-0.03[facility] Comment on above:Performed By: #### CBC #### [facility] [address] [place] [address] Dr. Vivian Wang %1.3 %Critically high0.0-0.5The [facility] SystemComment on above:Performed By: #### CBC #### [facility] [address] [place] [address] Dr. Vivian RobinsH #0.3 103/ulCritically low1.2-3.8The [facility] Comment on above:Performed By: #### CBC #### [facility] [address] [place] [address] Dr. Vivian Hernandezmphocytes/100 WBC (Bld)4.2 %Critically low20.5-60.0The [facility] SystemComment on above:Performed By: #### CBC #### [facility] [address] [place] [address] Dr. Vivian Moe DIFF REQNONormalThe [facility] SystemComment on above: Performed By: #### CBC #### [facility] [address] [place] [address] Dr. Vivian Gillette (RBC) [Entitic mass]29.2 mxNghvjd03.7-34.0The [facility] SystemComment on above:Performed By: #### CBC #### [facility] [address] [place] [address] Dr. Vivian Gillette (RBC) [Mass/Vol]33.7 g/iXGisayh02.9-35.2The [facility] SystemComment on above:Performed By: #### CBC #### [facility] [address] [place] [address] Dr. Vivian Gillette (RBC) [Entitic vol]86.6 qBZfhaxy85.0-99.0The [facility] SystemComment on above:Performed By: #### CBC #### [facility] [address] [place] [address] Dr. Vivian Evangelista #0.2 103/ulCritically low0.3-0.8The [facility] SystemComment on above:Performed By: #### CBC #### [facility] [address] [place] [address] Dr. Vivian Hornocytes/100 WBC (Bld)3.5 %Normal1.7-12.0The [facility] Comment on above:Performed By: #### CBC #### [facility] [address] [place] [address] Dr. Vivian Self #5.7 103/ulNormal1.4-6.5The [facility] SystemComment on above:Performed By: #### CBC #### [facility] [address] [place] [address] Dr. Vivian Beyutrophils/100 WBC (Bld)90.8 %Critically high43.0-75.0The [facility] SystemComment on above:Performed By: #### CBC #### [facility] [address] [place] [address] Dr. Vivian Garcia mean volume (Bld) [Entitic vol]9.8 fLNormal9.5-13.5The [facility] SystemComment on above:Performed By: #### CBC #### [facility] [address] [place] [address] Dr. Vivian FallPLT224 103/yvLggrxz788-896Nab [facility] SystemComfresenius medical [facility] at [facility] on above: Performed By: #### CBC #### [facility] [address] [place] [address] Dr. Vivian FallRBC4.18 106/ulCritically low4.20-5.40The [facility] SystemComment on above:Performed By: #### CBC #### [facility] [address] [place] [address] Dr. Vivian FallWBC6.3 103/ulNormal4.0-11.0The [facility] SystemComment on above: Performed By: #### CBC #### [facility] [address] [place] [address] Dr. Vivian FallCT ABD/PELVIS WO CONon 25-99-8820DS ABD/PELVIS WO CONEXAMINATION: CT ABD/PELVIS WO CON, [...] Electronically authenticated by: ANASTACIO BARBOZA Date: 2022-06-29 11:26[facility] HospitalCULTURE BLOODon 43-31-0873Szbhugdxqgy examination of blood, cultureCulture Observations: NO GROWTH AT 5 DAYS. Isolate 1 BC_BA_NANormalSelect Medical Trihealth Rehabilitation HospitalComment on above:Performed By: #### PTT, PT #### [facility] [address] [place] [address] Dr. Vivian FallMicroscopic examination of blood, cultureCulture Observations: NO GROWTH AT 5 DAYS. Isolate 1 BC_BA_NANormalThe [facility] SystemComment on above:Performed By: #### PTT, PT #### [facility] [address] [place] [address] Dr. Vivian FallCULTURE URINEon 26-49-0207EVRSLXU URINECulture Observations: NO GROWTH.NormalThe [facility] SystemComment on above:Performed By: #### PTT, PT #### [facility] [address] [place] [address] Dr. Vivian FallCovid-19 PCR (CVDTBH)on 58-50-8405NQDA-CoV-2 (COVID-19) RNA JONY+probe Ql (Unsp spec)Not detectedNormalNOT DETECTEDSelect Medical [facility]health Rehabilitation Hospital Comment on above:Result Comment: When diagnostic [...] for this test is supported by the [employer] Technical [employer] of Health and Human Service's declaration that [...] longer be used).Performed By: #### CVDTBH #### [facility] [address] [place] [address] Dr. Vivian Adam URINE PROFILEon 30-18-2027Cklxjudua Ql (U)SMALLAbnormal NEGATIVESelect Medical Trihealth Rehabilitation HospitalComment on above:Performed By: #### PTT, PT #### [facility] [address] [place] [address] Dr. Vivian FallClarity (U)CLEARNormalCLEARThe [facility] SystemComment on above: Performed By: #### PTT, PT #### [facility] [address] [place] [address] Dr. Vivian Herr (U)DK. YELLOWNormalYELLOWSelect Medical Trihealth Rehabilitation HospitalComfresenius medical care at [facility] on above:Performed By: #### PTT, PT #### [facility] [address] [place] [address] Dr. Vivian Alfred micrscopic examination will be performed if indicated. NormalThe Sparks HospitalComment on above:Performed By: #### PTT, PT #### [facility] [address] [place] [address] Dr. Vivian FallGlucose Ql (U)NegativeNormalNEGATIVESelect Medical Trihealth Rehabilitation HospitalComment on above:Performed By: #### PTT, PT #### [facility] [address] [place] [address] Dr. Vivian FallHemoglobin Ql (U)TRACE-INTACTAbnormalNEGATIVESelect Medical Trihealth Rehabilitation HospitalComment on above:Performed By: #### PTT, PT #### [facility] [address] [place] [address] Dr. Vivian FallKetones Ql (U)NegativeNormalNEGATIVESelect Medical Trihealth Rehabilitation HospitalComment on above:Performed By: #### PTT, PT #### [facility] [address] [place] [address] Dr. Vivian FallLEUKOCYTESNegativeNormalNEGATIVESelect Medical Tri[facility] Rehabilitation HospitalComfresenius medical [facility] on above:Performed By: #### PTT, PT #### [facility] [address] [place] [address] Dr. Vivian FallNitrite Ql (U)NegativeNormalNEGATIVESelect Medical Trihealth Rehabilitation HospitalComment on above:Performed By: #### PTT, PT #### [facility] [address] [place] [address] Dr. Vivian FallpH (U)6.0 [pH]Normal5-9[facility] HospitalComment on above: Performed By: #### PTT, PT #### [facility] [address] [place] [address] Dr. Vivian FallProtein (U) [Mass/Vol]100 mg/dLAbnormalNEGATIVE/ TRACEThe [facility] SystemComment on above:Performed By: #### PTT, PT #### [facility] [address] [place] [address] Dr. Vivian FallSPEC GRAVITY>=1.392Inbonjru4.005-<=1.025The [facility] Comment on above:Performed By: #### PTT, PT #### [facility] [address] [place] [address] Dr. Vivian Mejia MICRO INDINDICATEDNoShelby Memorial Hospitale [facility] SystemComment on above: Performed By: #### PTT, PT #### [facility] [address] [place] [address] Dr. Vivian Mondragonbilinogen Qn (U)1.0 {Nia'U}/dLNormal0.2 - 1.0The [facility] SystemComment on above:Performed By: #### PTT, PT #### [facility] [address] [place] [address] Dr. Vivian SchmittCTATE/LACTIC ACIDon 36-41-0555Fnebbwc [Moles/Vol]1.3 mmol/L Normal0.4-1.9The [facility] SystemComment on above:Performed By: #### LACT #### [facility] [address] [place] [address] Dr. Vivian FallLactate [Moles/Vol]3.1 mmol/LCritically high0.4-1.9The [facility] SystemComment on above:Performed By: #### LACT #### [facility] [address] [place] [address] Dr. Vivian FallLIPASEon 82-58-5444Dkezwr [Catalytic activity/Vol]88.0 U/LNormal 73.0-393.0The [facility] SystemComment on above:Performed By: #### LIPA #### [facility] [address] [place] [address] Dr. Vivian FallPROF 14(COMP METB)on 81-81-9918Swufnaa [Mass/Vol]3.4 g/dLNormal 3.4-5.0The [facility] SystemComment on above:Performed By: #### CMP, HSTROPN, BNP #### [facility] [address] [place] [address] Dr. Vivian FallAlbumin/Globulin [Mass ratio]0.9 {ratio}NormalThe [facility] SystemComment on above:Performed By: #### CMP, HSTROPN, BNP #### [facility] [address] [place] [address] Dr. Vivian BenitoP [Catalytic activity/Vol]145 U/LCritically zefl10-276Wfc [facility] SystemComment on above:Performed By: #### CMP, HSTROPN, BNP #### [facility] [address] [place] [address] Dr. Vivian Bauman [Catalytic activity/Vol]454 U/LCritically hgam81-80Dfo [facility] SystemComment on above:Performed By: #### CMP, HSTROPN, BNP #### [facility] [address] [place] [address] Dr. Vivian More gap [Moles/Vol]15.7 mmol/LNormalSelect [facility] Comment on above:Performed By: #### CMP, HSTROPN, BNP #### [facility] [address] [place] [address] Dr. Vivian FallAST [Catalytic activity/Vol]404 U/LCritically fnqr19-24Kbv [facility] SystemComment on above:Performed By: #### CMP, HSTROPN, BNP #### [facility] [address] [place] [address] Dr. Vivian FallBilirubin [Mass/Vol]1.4 mg/dLCritically high0.2-1.0The [facility] SystemComment on above:Performed By: #### CMP, HSTROPN, BNP #### [facility] [address] [place] [address] Dr. Vivian FallCalcium [Mass/Vol]8.7 mg/dLNormal8.5-10.1[facility] Comment on above:Performed By: #### CMP, HSTROPN, BNP #### [facility] [address] [address] [address] Vivian FallChloride [Moles/Vol]94 mmol/LCritically uvm36-714Aos [facility] SystemComment on above:Performed By: #### CMP, HSTROPN, BNP #### [facility] [address] [place] [address] Dr. Vivian FallCO2 [Moles/Vol]22.0 mmol/XQjqbkz53.0-32.0The [facility] Comment on above:Performed By: #### CMP, HSTROPN, BNP #### [facility] [address] [place] [address] Dr. Vivian FallCreatinine [Mass/Vol]1.30 mg/dLCritically high0.55-1.02The [facility] SystemComment on above:Performed By: #### CMP, HSTROPN, BNP #### [facility] [address] [place] [address] Dr. Vivian JacquesGFR-AF VECMZULL79 mL/min/1.71l8Ohedppdbah low>=60The [facility] SystemComment on above:Performed By: #### CMP, HSTROPN, BNP #### [facility] [address] [place] [address] Dr. Vivian JacquesGFR-NON AF DFFPMTOF79 mL/min/1.07v2Ffxhdsokoo low>=60The [facility] SystemComment on above:Performed By: #### CMP, HSTROPN, BNP #### [facility] [address] [place] [address] Dr. Vivian FallGlobulin (S) [Mass/Vol]3.7 g/dLNormalThe [facility] SystemComment on above:Performed By: #### CMP, HSTROPN, BNP #### [facility] [address] [place] [address] Dr. Vivian FallGlucose [Mass/Vol]166 mg/dLCritically izcu77-547Jmm [facility] SystemComment on above:Performed By: #### CMP, HSTROPN, BNP #### [facility] [address] [place] [address] Dr. Vivian FallPotassium [Moles/Vol]3.7 mmol/LNormal3.5-5.1The [facility] Comment on above:Performed By: #### CMP, HSTROPN, BNP #### [facility] [address] [place] [address] Dr. Vivian FallProtein [Mass/Vol]7.1 g/dLNormal6.4-8.2The [facility] Comment on above:Performed By: #### CMP, HSTROPN, BNP #### [facility] [address] [place] [address] Dr. Vivian FallSodium [Moles/Vol]128 mmol/LCritically jih850-774Kjf [facility] SystemComment on above:Performed By: #### CMP, HSTROPN, BNP #### [facility] [address] [place] [address] Dr. Vivian FallUrea nitrogen [Mass/Vol]15.0 mg/dLNormal7.0-18.0The [facility] SystemComment on above:Performed By: #### CMP, HSTROPN, BNP #### [facility] [address] [place] [address] Dr. Vivian Javier nitrogen/Creatinine [Mass ratio]11.5 mg/mgNoSheltering Arms HospitalComment on above:Performed By: #### CMP, HSTROPN, BNP #### [facility] [address] [place] [address] Dr. Vivian FallPROTIMEon 68-88-8376LGI Coag (PPP) [Relative time]1.08 {INR} NormalThe [facility] SystemComment on above:Performed By: #### PTT, PT #### [facility] [address] [place] [address] Dr. Vivian Lopez GUIDELINESSEE BELOWMercy Health Perrysburg HospitalComment on above:Result Comment: DESIRED INR: 2.0 - 3.0 CONDITIONS NOT LISTED BELOW 2.5 - 3.5 FOR PROSTHETIC HEART VALVE REPLACEMENT 2.5 - 3.5 RECURRENT THROMBOSIS Performed By: #### PTT, PT #### [facility] [address] [place] [address] Dr. Vivian Parikh Coag (PPP) [Time]11.4 sNormal9.0-11.6The [facility] Comment on above:Performed By: #### PTT, PT #### [facility] [address] [place] [address] Dr. Vivian ParikhTon 91-28-6539xHQO Coag (Bld) [Time]32.2 zEabvnr14.3-36.2The [facility] SystemComment on above:Performed By: #### PTT, PT #### [facility] [address] [place] [address] Dr. Vivian Avina, HIGH SENSITIVITYon 38-45-0050GSTHLB3.8 pg/mLNormal 4.0-51.3The [facility] SystemComment on above:Result Comment: CUT-OFF POINTS HAVE BEEN ESTABLISHED BASED ON THE FOURTH UNIVERSAL DEFINITIONS OF MYOCARDIAL INFARCTION. THE UPPER REFERENCE LIMIT (URL) OF TROPONIN, DEFINED THE 99TH PERCENTILE OF cTnI DISTRIBUTION IN A REFERENCE POPULATION, HAS BEEN CONFIRMED THE DECISION THRESHOLD FOR HI DIAGNOSIS.Performed By: #### CMP, HSTROPN, BNP #### [facility] [address] [place] [address] Dr. Vivian Box MICROSCOPIC ONLYon 25-12-6043IJMFJDHTUMBUBElwvwhplQUAV SEEN The [facility] SystemComment on above:Performed By: #### PTT, PT #### [facility] [address] [place] [address] Dr. Vivian Collins identified Cx Nom (U)INDICATEDNormalThSt. Mary's Medical CenterComment on above:Performed By: #### PTT, PT #### [facility] [address] [place] [address] Dr. Vivian Garcia SEENNormalNONE SEENMount Carmel Health System on above:Performed By: #### PTT, PT #### [facility] [address] [place] [address] Dr. Vivian Zaman LM Nom (Urine sed)NONE SEENNormalNONE SEENThe [facility] SystemComfresenius medical [facility] on above:Performed By: #### PTT, PT #### [facility] [address] [place] [address] Dr. Park ChangEpithelial cells LM Ql (Urine sed)FEWAbnormalNONE SEEN /RAREThe [facility] SystemComfresenius medical care at [facility] on above:Performed By: #### PTT, PT #### [facility] [address] [place] [address] Dr. Vivian FallMUCOUSSMALLAbnormalNONE SEENThe [facility] SystemComfresenius medical [facility] on above:Performed By: #### PTT, PT #### [facility] [address] [place] [address] Dr. Vivian FallRauavVJM6-2Njpvjr2-7Lqr [facility] on above:Performed By: #### PTT, PT #### [facility] [address] [place] [address] Dr. Vivian FallWBC0-2AbnormalNONE SEENThe [facility] SystemComfresenius medical [facility] on above: Performed By: #### PTT, PT #### [facility] [address] [place] [address] Dr. Vivian FallXR CHEST 1 Von 69-36-0108MF CHEST 1 VEXAM: XR CHEST 1 V HISTORY: Altered mental status COMPARISON: None. TECHNIQUE: Frontal view of the chest. FINDINGS: No focal consolidations or pleural effusions. Cardiomegaly. Thoracic spine spondylosis. IMPRESSION: No acute disease. Cardiomegaly. Electronically authenticated by: ZEYAD SOFIA Date: 2022-06-29 10:38[facility] HospitalOffice Visit (Cardiology)on 69-63-4315Uzgyoz-up visit Diagnoses/Problems Assessed Abnormal echocardiogram (793.2) (R93.1) Never a smoker Hypothyroidism (244.9) (E03.9) Added by Problem List Migration; 2013-02-28; Moved to [facility] Mar 24 2013 9:03PM Hyperlipidemia (272.4) [...] H (more content not included)...NormalUH TouchworksTobacco Screening.on 94-15-3565Rklpk depression screening assessmentHuntsman [facility] [address] DO Work Phone: Fall risk assessmenta) No falls within the last year [facility] [address] DO Work Phone: Tobacco use status CPHSb) NoMP-[facility] [address] DO Work Phone: ECHOCARDIO M/2D COMPLETEon 58-19-5499BRAXSZYTSY M/2D COMPLETEPatient: BETTE VILLAFANA Exam Date: 05/11/2022 : 1955 Gender:F Ordering : DR ZULMA MOE PA Admission #: [id number] Family : Order #: [id number] CLICK HERE TO VIEW EXAM ECHOCARDIOGRAM REPORT [...] 3.36 cm Aortic Valve AoV Area (Peak Viky): 3.10 cm2, 3.10 cm2 Peak Velocity(Antegrade Flow): [...] by: Joseline Alarcon M.D. on 05/13/2022 at 10:52[facility] HospitalMG MAMM SCREEN 3D ALFA CADon 80-23-9850GW MAMM SCREEN 3D ALFA CADPatient: BETTE VILLAFANA Exam Date: 05/11/2022 : 1955 Gender:F Ordering : DR ZULMA MOE PA Admission #: [id number] Family : Order #: [id number] CLICK HERE TO VIEW EXAM RADIOLOGY REPORT [...] kidney cancer at age 52. LOCATION: [facility] BREAST COMPOSITION: Almost entirely fatty. FINDINGS: DIAGNOSTIC [...] by: Carol Ascencio M.D. on 05/11/2022 at 14:26[facility] Perrysburg HospitalEstablished Visit (Otolaryngology)on 18-45-8259Mnfocniyndc Visit (Otolaryngology)Diagnoses/Problems Tracheal stenosis (519.19) (J39.8) Esophageal [...] Recorded: 09Feb2022 03:01PM Height5 ft 4 in Eastje638 lb BMI Vinuhxpgxl67.35 kg/m2 BSA Calculated2.22 Tobacco Useb) No Falls [...] Feb 09 2022 3:21PM EST (Author) Normal TouchworksTobacco Screening.on 45-46-1124Gepr risk assessmentc) Not medically lagozenshKR-Xpkpgnhyeivzii-Hfgoyacr Work Phone: ToSogou use status CPHSb) OvFN-Ojuziykwxxwkik-Pbcbsbdd Work Phone: Reference Laboratory TestingOrdered By: Generated DomainUser on 15-09-8996LDEU-CoV-2 (COVID-19) RNA JONY+probe Ql (Resp)Not detectedInvalid Interpretation CodeNot DetectedCLAREMORE INDIAN [facility] SendOutsSSComment on above: Result Comment: This nucleic acid amplification test was developed and its performance characteristics determined by [facility]. Nucleic acid amplification tests include RT-PCR and [...] detected) result in this assay. Performed at: [address] [id number] PhD Anita French Screening.on 58-82-0748Hblj risk assessmenta) No falls within the last khllWX-Acubvduwgftbqz-Bpbiyjax Work Phone: ToSogou use status CPHSb) HuHI-Fajtzmkhzcnyxx-Ekucwmlv Work Phone: coronavirus 2019 RNA by PCR, Screening Asymptomticon 38-67-8019Ijquzbpqzmz 2019 RNA by PCR, Screening AsymptomticNot detectedNormal See DphvoHK-Gnteuwxyeoxotk-Uiiotol Work Phone: comment on above:SOURCE: Nasal, NasopharyngealReference [...] make patient management decisions.Fact sheet for providers: https://www.fda.gov/media/655664/downloadFact sheet for patients: https://www.fda.gov/media/662048/downloadThis test has received FDA Emergency Use Authorization (EUA) and has been verified by [facility] ([facility]). This test is only authorized for the duration of time that circumstances exist to justify the authorization of the emergency use of in vitro diagnostic tests for the detection of SARS-CoV-2 virus and/or diagnosis of COVID-19 infection under section 564(b)(1) of the Act, 21 U.S.C. 360bbb- 3(b)(1), unless the authorization is terminated or revoked sooner. [facility] is certified under CLIA-88 as qualified to perform high complexity testing. Testing is performed in the [facility] laboratories located at [address] [place] [address].Laboratory - Blood bankon 77-01-9011AZO group Nom (Bld)BNF-Hfbpeilyuqvogl-Pxouydh Work Phone: blood group antibody screen QlNegative PD-Darnkdgkvisocr-Ntjwmks Work Phone: Rh immune globulin screen (Bld) [Interp]Positive RF-Blocypovrznqwn-Bszncie Work Phone: Laboratory - Chemistry and Chemistry - challengeon 47-33-2446Orrlg gap [Moles/Vol]13 mmol/L10 - 53CQ-Epryeubpxdueyl-Ndvdxtd Work Phone: [phone] [Mass/Vol]9.3 mg/dL8.6 - 10.6 NI-Mdddukfqfdvyrz-Pdhnqyv Work Phone: [phone] [Moles/Vol]102 mmol/L98 - 107 IN-Xqmotwsywvucio-Hkupmji Work Phone: [phone] [Moles/Vol]28 mmol/L21 - 32 AI-Zbbuavjsadqols-Dnbxjbu Work Phone: [phone] [Mass/Vol]0.77 mg/dLSee Below WL-Ndsgpnbzrlzwrx-Glqwpew Work Phone: [phone] on above:Reference Range: 0.50 - 1.05Glucose [Mass/Vol]95 mg/dL74 - 39CO-Dmocmikjiookmq-Hfrbgyx Work Phone: [phone] [Moles/Vol]5.2 mmol/L3.5 - 5.3 WC-Hokncoebedzpef-Vuqqwjn Work Phone: [phone] [Moles/Vol]138 mmol/L136 - 145 UT-Vtozkvkbygxkuf-Keiqsua Work Phone: [phone] nitrogen [Mass/Vol]19 mg/dL6 - 23 GX-Vcperosurdgytb-Meloncj Work Phone: Laboratory - Hematology and Cell countson 03-13-2021 Erythrocyte distribution width (RBC) [Ratio]12.8 %See Below NO-Ngcdqwpltgxtma-Zpuaemf Work Phone: Comment on above:Reference Range: 11.5 - 14.5 Hematocrit (Bld) [Volume fraction]38.6 %See KyzmrCB-Ydnggrqajqqvwd-Apomahg Work Phone: [phone] on above:Reference Range: 36.0 - 46.0 Hemoglobin (Bld) [Mass/Vol]11.8 g/dLbelow low thresholdSee Below GK-Doixcixxgybzkr-Ardwqax Work Phone: [phone] on above:Reference Range: 12.0 - 16.0MCHC (RBC) [Mass/Vol]30.6 g/dLbelow low thresholdSee YkkiqRE-Tdnutpuucxrjxr-Dzyozqe Work Phone: [phone] on above:Reference Range: 32.0 - 36.0MCV (RBC) [Entitic vol]96 fL80 - 129KE-Skfsluirjtepkv-Bswisws Work Phone: [phone] (Bld) [#/Vol]325 10*3/uL150 - 450 SR-Fzavphibcwuwkb-Jkokaul Work Phone: [phone] (Bld) [#/Vol]4.01 {x10E12/L}See Below IB-Lzxkkdzmmkndoy-Qbixueo Work Phone: [phone] on above:Reference Range: 4.00 - 5.20WBC (Bld) [#/Vol]8.6 10*3/uL4.4 - 11.1RG-Rewublqxnuvawm-Pqmlupg Work Phone: [phone] Panel Informationon 03-13-2021>60>60 MI-Ayzyubrbrbyqzw-Mpqqvpm Work Phone: [phone] on above:CALCULATIONS OF ESTIMATED GFR ARE PERFORMED USING THE MDRD STUDY EQUATION FOR THE IDMS-TRACEABLE CREATININE METHODS. CLIN CHEM 2007;53:766-720.0 {/100_WBC}0.0-0.3UP-Bhdirdomfourga-Wmrlsie Work Phone: [email or web address]?RetrieveTestByDateTime?Patien uPC=[id number]&Da te=04-11-2021&Time=10%3a52%3a43%3a00&TestType=ECG&Site=1&OutputType=PDF&Ext=PDF FR-Tdvbiyjzrnagcc-Ysporvm Work Phone: [phone] sinus lmjngcCJ-Flhbzitreieysd-Tjjygrg Work Phone: [phone]-Dmjjuhbpefxcns-Nishant Work Phone: [phone] 7VR-Euzpusqihkfkvg-Oouecqo Work Phone: [phone] 2GV-Klgwvbunmgnfql-Lbkszwf Work Phone: [phone] 3LO-Msnaaqxtfbvqsg-Vygvdkm Work Phone: [phone] 2OB-Dbziqoxselpmae-Fqqkuoq Work Phone: [phone] 8CS-Qsttzrjuomhgpw-Biszvym Work Phone: [phone] 8PH-Oiiclysituvuiu-Omnbawt Work Phone: [phone] 3VZ-Qflwcefpdfajtz-Jqgkcdi Work Phone: [phone] 7MV-Prnhphhrrhisfk-Itzsbof Work Phone: [phone] 7FC-Ktzbyjzmeqfyua-Ryzhxaz Work Phone: [phone] 9WC-Oyjdzaqeabbifr-Mobtgem Work Phone: [phone] 8WK-Hpwdasoqxfpksd-Uyownld Work Phone: [phone] 5PJ-Meblxufnrgnozz-Czsqmoh Work Phone: [phone] 5EL-Yvskxbyalzqhsy-Qhotnvt Work Phone: [phone] 4EI-Xfyueladljunuj-Rjmvxto Work Phone: [phone] Chest without Contraston 70-15-6803AU Chest WO jjneaqmrGujqrdAK-Fjgzngaoairhjc-Ycxgpnmm Work Phone: Tobacco Screening.on 31-25-9183Qngq risk assessmenta) No falls within the last ioeeMF-Ykiosjfembivzj-Mzluvwhr Work Phone: Tobacco use status CPHSb) PjBQ-Xjfrsqrqfneagc-Ikhgrsdr Work Phone: Tobacco Screening.on 06-48-5277Kvkv risk assessmentc) Not medically ozstmymcaJH-Zovzrekbznqdbf-Yeovecbh Work Phone: Tobacco use status CPHSb) AsMC-Inxxwodbopdogt-Mgfxnljg Work Phone: Vital Signs Date TimeVital SignValuePerforming ObxngvojpTezyphgf49-69-0103 08:49-0500Body kwchob251.56 cmDakenisha Hilton II Work Phone: [phone] [place], [place] 3907311-11-2025 08:49-0500 Body mass index (BMI) [Ratio]46 kg/q6Hhyaah Hilton II Work Phone: [phone] [place], [place] 3907311-11-2025 08:49-0500 Body .56 kgDakenisha Hilton II Work Phone: [phone] [place], [place] 3907311-11-2025 08:49-0500 Diastolic blood sycrgkwi11 mm[Hg]Bello Hilton II Work Phone: [phone] [place], [place] 3907311-11-2025 08:49-0500 Heart rate78 /minDbetzyel Hilton II Work Phone: [phone] [place], [place] 3907311-11-2025 08:49-0500 Respiratory rate18 /minDbetzyel Hilton II Work Phone: [phone] [place], [place] 3907311-11-2025 08:49-0500 SaO2% (BldA) [Mass fraction]95 %Bello Hilton II Work Phone: [phone] [place], [place] 3907311-11-2025 08:49-0500 Systolic blood mkzwtrxe899 mm[Hg]Bello Hilton II Work Phone: [phone] [place], [place] 9461911-07-2025 09:11-0500 Body bctvic038.1 cmDaviden Hemmer PA Work Phone: [facility] HospitalRwkjfcocjv17-56-7092 09:11-0500Body mass index (BMI) [Ratio]44.07 kg/v5Yxbhn Hemmer PA Work Phone: 1(832)[facility]-6889[facility] HospitalItuhedcjpp55-16-0890 09:11-0500Body smwyua873.11 kgKaren Hemmer PA Work Phone: [facility] HospitalPxefgqootb41-54-8287 09:11-0500Diastolic blood ezxsyucg03 mm[Hg]Zulma Hemmer PA Work Phone: [facility] HospitalQqmyimryaa75-81-9261 09:11-0500Heart rate83 /min Zulma Hemmer PA Work Phone: [phone])[facility]-9260[facility] HospitalVbfaejlgxq36-94-2010 09:11-0500Respiratory rate16 /minDaviden Hemmer PA Work Phone: [facility] HospitalJshmcztycb79-69-3531 09:11-6816XoR9% (BldA) [Mass fraction]95 %Zulma Hemmer PA Work Phone: [facility] HospitalDhvyusbmai61-60-4945 09:11-0500Systolic blood wsyxaxle046 mm[Hg]Zulma Hemmer PA Work Phone: 1(587)[facility]-3755[facility] HospitalWoiduvfwpj83-54-5006 12:18-0400Diastolic blood iqxsegpu13 mm[Hg]Bello Hilton II Work Phone: [phone] [place], [place] 3907310-28-2025 12:18-0400 Heart rate73 /minDradha Hilton II Work Phone: 1(574)[facility] [place], [place] 3907310-28-2025 12:18-0400 Systolic blood blegltie845 mm[Hg]Bello Hilton II Work Phone: [phone] [place], [place] 7975610-28-2025 11:33-0400 Body oeizii396.56 cmDakenisha Hilton II Work Phone: [phone])368-[address] [place], [place] 3907310-28-2025 11:33-0400 Body erdpab887.93 kgDaniel Hilton II Work Phone: [phone] [place], [place] 7975610-09-2025 09:17-0400 Body dwuhud699.1 cmKaren Hemmer PA Work Phone: [phone] [place], [place] 5461610-09-2025 09:17-0400Body mass index (BMI) [Ratio]43.97 kg/p6Mcexo Hemmer PA Work Phone: [phone])[address] [place], [place] 5461610-09-2025 09:17-0400Body xpkync862.84 kgKaren Hemmer PA Work Phone: [phone])[address] [place], [place] 5461610-09-2025 09:17-0400Diastolic blood zetkpmth93 mm[Hg]Zulma Hemmer PA Work Phone: 1(419)[address] [place], [place] 5461610-09-2025 09:17-0400Heart rate76 /min Zulma Hemmer PA Work Phone: [phone])[address] [place], [place] 5461610-09-2025 09:17-0400Respiratory rate16 /minKaren Hemmer PA Work Phone: [phone])[address] [place], [place] 5461610-09-2025 09:17-5330DyR8% (BldA) [Mass fraction]96 %Zulma Hemmer PA Work Phone: 1(419)[address] [place], [place] 5461610-09-2025 09:17-0400Systolic blood keusslct050 mm[Hg]Zulma Hemmer PA Work Phone: [phone])[address] [place], [place] 5461609-03-2025 13:07-0400Body wvvwje652.81 cmDaniel Hilton II Work Phone: [phone] [place], [place] 7975609-03-2025 13:07-0400 Body mass index (BMI) [Ratio]46.3 kg/g4Mntlnf Hilton II Work Phone: [phone])[address] [place], [place] 7975609-03-2025 13:07-0400 Body ejoiey032.95 kgDaniel Hilton II Work Phone: [phone])[address] [place], [place] 7975609-03-2025 13:07-0400 Diastolic blood fkxaleib90 mm[Hg]Bello Hilton II Work Phone: [phone])[address]09-03-2025 13:07-0400 Heart rate85 /minDaniel Hilton II Work Phone: [phone])[address]09-03-2025 13:07-0400 Respiratory rate20 /minDaniel Hilton II Work Phone: [phone]09-03-2025 13:07-0400 SaO2% (BldA) [Mass fraction]96 %Bello Hilton II Work Phone: [phone]09-03-2025 13:07-0400 Systolic blood neykhtkp972 mm[Hg]Bello Hilton II Work Phone: [phone])[address]08-14-2025 09:32-0400 Body .56 cmDajoiel Hilton II Work Phone: [phone])[address] [place], [place] 7975608-14-2025 09:32-0400 Body mass index (BMI) [Ratio]48.4 kg/f3Nuzvxp Hilton II Work Phone: 1(419)[address] [place], [place] 7975608-14-2025 09:32-0400 Body hbwfap677.91 kgDajoiel Hilton II Work Phone: 1(419)[address] [place], [place] 7975608-14-2025 09:32-0400 Diastolic blood gjqdbygl23 mm[Hg]Bello Hilton II Work Phone: 1(419)[address]08-14-2025 09:32-0400 Heart rate84 /minDaniel Hilton II Work Phone: 1(419)[address] [place], [place] 7975608-14-2025 09:32-0400 Respiratory rate18 /minDaniel Hilton II Work Phone: [phone])[address] [place], [place] 7975608-14-2025 09:32-0400 SaO2% (BldA) [Mass fraction]93 %Bello Hilton II Work Phone: 1(419)[address] [place], [place] 7975608-14-2025 09:32-0400 Systolic blood zgphbsve469 mm[Hg]Bello Hilton II Work Phone: [phone])[address]07-09-2025 13:40-0400 Body cjolwo708.81 cmDaniel Hilton II Work Phone: [phone])[address]07-09-2025 13:40-0400 Body mass index (BMI) [Ratio]46.8 kg/k6Quyqko Hilton II Work Phone: [phone])[address]07-09-2025 13:40-0400 Body .2 kgDaniel Hilton II Work Phone: 1(283)[address]07-09-2025 13:40-0400 Diastolic blood qewpodbj46 mm[Hg]Bello Hilton II Work Phone: [phone])[address]07-09-2025 13:40-0400 Heart rate82 /minDbetzyel Hilton II Work Phone: 1(660)[address] [place], [place] 7975607-09-2025 13:40-0400 Respiratory rate20 /minDbetzyel Hilton II Work Phone: 1(762)[address] [place], [place] 7975607-09-2025 13:40-0400 SaO2% (BldA) [Mass fraction]96 %Bello Hilton II Work Phone: [phone])[address]07-09-2025 13:40-0400 Systolic blood miuirmwr857 mm[Hg]Bello Hilton II Work Phone: [phone])[address]05-21-2025 14:26-0400 Body qaiypn016.91 cmDajoiel Hilton II Work Phone: [phone])[address]05-21-2025 14:26-0400 Body mass index (BMI) [Ratio]46.8 kg/q0Cxifex Hilton II Work Phone: 1(840)[address]05-21-2025 14:26-0400 Body xmcebf050.25 kgDaniel Hilton II Work Phone: 1(530)[address]05-21-2025 14:26-0400 Diastolic blood edqygiek54 mm[Hg]Bello Hilton II Work Phone: 1(881)622-[address] [place], [place] 3907305-21-2025 14:26-0400 Heart rate80 /Iva Hilton II Work Phone: 1(686)894-[address] [place], [place] 3907305-21-2025 14:26-0400 Respiratory rate20 /Iva Hilton II Work Phone: 1(027)440-[address] [place], [place] 3907305-21-2025 14:26-0400 SaO2% (BldA) [Mass fraction]96 %Bello Hilton II Work Phone: [phone])652-[address] [place], [place] 3907305-21-2025 14:26-0400 Systolic blood mm[Hg]Bello Hilton II Work Phone: [phone])[address]05-20-2025 10:30-0400 Body zptxez652.1 cmSchilo Hubbard [employer] Work Phone: [phone] [place], [place] [address]Jhpahnoyet51-63-6607 10:30-0400Body mass index (BMI) [Ratio]44.6 kg/h1Awtorvgerhard Hubbard [employer] Work Phone: 1([phone] [place], [place] [address]Kuziqnykbf45-00-5601 10:30-0400Body .56 kgShgerhard Hubbard [employer] Work Phone: [facility] [phone] 10:30-0400Diastolic blood mm[Hg]Cristina Hubbard [employer] Work Phone: [phone] [place], [place] [address]Wcqcrquxdv22-37-8248 10:30-0400Heart rate80 /min Cristina Hubbard [employer] Work Phone: [facility] HospitalCocpstmakw87-10-0762 10:30-1040RtZ0% (BldA) [Mass fraction]95 %Cristina Hubbard [employer] Work Phone: [facility] [id number] 10:30-0400Systolic blood mm[Hg]Cristina Hubbard [employer] Work Phone: [facility] HospitalUgqzjswkir42-89-5832 13:36-0400Body patnmq733.1 cmKaren Hemmer PA Work Phone: [facility] HospitalCpyeuipyzx40-85-2015 13:36-0400Body mass index (BMI) [Ratio]44.73 kg/d4Gfcpn Hemmer PA Work Phone: [facility] HospitalSmcqgpujdv17-07-4620 13:36-0400Body .93 kgKaren Hemmer PA Work Phone: [facility] HospitalFfpjpxukua85-78-1036 13:36-0400Diastolic blood muvtftak31 mm[Hg]Zulma Hemmer PA Work Phone: [facility] [facility] HospitalZcpotiuwnf49-69-1820 13:36-0400Heart rate81 /min Zulma Hemmer PA Work Phone: [facility] HospitalGepvobnlxs07-06-6702 13:36-0400Respiratory rate16 /minKaren Hemmer PA Work Phone: [facility] HospitalYdipnlvlrc25-14-5585 13:36-7295OwZ6% (BldA) [Mass fraction]95 %Zulma Hemmer PA Work Phone: [facility] HospitalYwnemdjnys74-40-2904 13:36-0400Systolic blood mm[Hg]Zulma Hemmer PA Work Phone: [facility] HospitalAvfqfjftik37-66-8683 09:44-0400Body .5 John Saldana MD Work Phone: [phone])864-[facility]03-20-2025 09:44-0400 Body mass index (BMI) [Ratio]44.27 kg/v5AicipDominic Saldana MD Work Phone: [phone])124-[facility]03-20-2025 09:44-0400 Body nxyfvwhznre15.5 [degF]Dominic Saldana MD Work Phone: [phone])211-[facility]03-20-2025 09:44-0400 Body ihtnqm552.75 kgDominic Saldana MD Work Phone: [phone])162-[address] [place], [place] 7594403-20-2025 09:44-0400 Diastolic blood oziakweq99 mm[Hg]Dominic Saldana MD Work Phone: [facility]03-20-2025 09:44-0400 Systolic blood moxtpayq365 mm[Hg]Dominic Saldana MD Work Phone: 1(216)070-[facility]03-05-2025 14:06-0500 Diastolic blood pehajkda00 mm[Hg]Bello Hilton II Work Phone: 1(154)584-[address] [place], [place] 9461903-05-2025 14:06-0500 Heart rate77 /minDbetzyel Hilton II Work Phone: 1(054)426-[address] [place], [place] 9461903-05-2025 14:06-0500 Respiratory rate18 /minDaniel Hilton II Work Phone: 1(434)376-[address] [place], [place] 9461903-05-2025 14:06-0500 SaO2% (BldA) [Mass fraction]95 %Blelo Hiltno II Work Phone: 1(842)745-[address] [place], [place] 9461903-05-2025 14:06-0500 Systolic blood vtsyuzst366 mm[Hg]Bello Hilton II Work Phone: [facility]12-10-2024 08:36-0500 Body fqtedc893.6 cmRmeaghan Saldana MD Work Phone: 1(216)218-[facility]12-10-2024 08:36-0500 Body mass index (BMI) [Ratio]45.49 kg/n1AjuchDominic Saldana MD Work Phone: 1(216)828-[facility]12-10-2024 08:36-0500 Body nsoduanncev60.9 [degF]Dominic Saldana MD Work Phone: 1(216)123-[facility]12-10-2024 08:36-0500 Body vshnry861.2 kgDominic Saldana MD Work Phone: 1(216)482-[facility]12-10-2024 08:36-0500 Diastolic blood kbktvoco81 mm[Hg]Dominic Saldana MD Work Phone: 1216)587-[facility]12-10-2024 08:36-0500 Heart rate77 /minDominic Saldana MD Work Phone: [phone]12-10-2024 08:36-0500 Systolic blood amyxohko936 mm[Hg]Dominic Saldana MD Work Phone: [phone]10-22-2024 13:25-0400 Body .6 Kavita Murphy MD Work Phone: [phone]10-22-2024 13:25-0400 Body mass index (BMI) [Ratio]44.11 kg/i4CbrszyRonnie Murphy MD Work Phone: [phone]10-22-2024 13:25-0400 Body ekkrfo651.57 kgRonnie Murphy MD Work Phone: [phone]10-15-2024 08:57-0400 Body .1 cmSchilo Hubbard [employer] Work Phone: 1(904)238-[address] [place], [place] [address]Smfbtqadkr57-65-9338 08:57-0400Body mass index (BMI) [Ratio]43.93 kg/j5UeomqfCristina Hubbard [employer] Work Phone: 1(572)417-[address] [place], [place] [address]Czzfqpqzuj13-99-0986 08:57-0400Body kpgdyt705.75 kgCristina Hubbard [employer] INS[employer] Work Phone: [facility] HospitalAmavfqjude73-82-5052 08:57-0400Diastolic blood uinedyfl84 mm[Hg]Cristina Hubbard [employer] INS[employer]OR Work Phone: [facility] HospitalPfmqyucuxr29-32-4596 08:57-0400Heart rate81 /min Cristina Hubbard [employer] Work Phone: [phone] HospitalTbatgasexm81-02-4911 08:57-5655XnL6% (BldA) [Mass fraction]95 %Cristina Hubbard [employer] INS[employer]OR Work Phone: [facility]OCarondelet HealthUzjfpubhvf53-39-2496 08:57-0400Systolic blood mjtpsamg219 mm[Hg]Cristina Hubbard [employer] Work Phone: 1(897)394-[address] [place], [place] [address]Jevoasgbjv63-08-0864 11:22-0400Body hyopff642.08 cmII Bello Hilton Work Phone: 1(315)[address]08-20-2024 11:22-0400 Body mass index (BMI) [Ratio]43.5 kg/m2II Bello Hilton Work Phone: 1(018)[address] [place], [place] 7975608-20-2024 11:22-040 Body xghhba049.22 kgII Bello Hilton Work Phone: 1(554)[address]08-20-2024 11:22-0400 Diastolic blood zetrodfx85 mm[Hg]II Bello Hilton Work Phone: 1(093)[address] [place], [place] 7975608-20-2024 11:22-0400 Heart rate79 /minII Bello Hilton Work Phone: 1(846)[address] [place], [place] 7975608-20-2024 11:22-0400 Respiratory rate18 /minII Bello Hilton Work Phone: 1(464)[address] [place], [place] 7975608-20-2024 11:22-0400 SaO2% (BldA) [Mass fraction]96 %II Bello Hilton Work Phone: 1(750)[address] [place], [place] 7975608-20-2024 11:22-0400 Systolic blood kosqnvdr608 mm[Hg]II Bello Hilton Work Phone: 1(953)[address] [place], [place] 7975606-19-2024 11:10-0400 Body witbod499.08 cmII Bello Hilton Work Phone: 1(182)[address] [place], [place] 7975606-19-2024 11:10-0400 Body mass index (BMI) [Ratio]43.3 kg/m2II Bello Hilton Work Phone: 1(205)[address]06-19-2024 11:10-0400 Body kzpsiv330.62 kgII Bello Hilton Work Phone: 1(159)[address]06-19-2024 11:10-0400 Diastolic blood vufhyact79 mm[Hg]II Bello Hilton Work Phone: 1(535)[address]06-19-2024 11:10-0400 Heart rate76 /minII Bello Hilton Work Phone: 1(765)850-[address] [place], [place] 3907306-19-2024 11:10-0400 Respiratory rate18 /minII Bello Hilton Work Phone: 1(635)699-[address] [place], [place] 3907306-19-2024 11:10-0400 SaO2% (BldA) [Mass fraction]97 %II Bello Hilton Work Phone: 1(493)901-[address] [place], [place] 3907306-19-2024 11:10-0400 Systolic blood rrbelukh279 mm[Hg]II Bello Hilton Work Phone: 1(746)[address]06-05-2024 10:09-0400 Body jaxfly734.08 cmII Bello Hilton Work Phone: 1(096)[address]06-05-2024 10:09-0400 Body mass index (BMI) [Ratio]42.8 kg/m2II Bello Hilton Work Phone: 1(749)[address]06-05-2024 10:09-0400 Body eccapaxrwxq01.6 [degF]II Bello Hilton Work Phone: 1(555)308-[address] [place], [place] 3907306-05-2024 10:09-0400 Body .32 kgII Bello Hilton Work Phone: 1(466)[address]06-05-2024 10:09-0400 Diastolic blood lpjbqowy79 mm[Hg]II Bello Hilton Work Phone: 1(609)285-[address] [place], [place] 3907306-05-2024 10:09-0400 Heart rate90 /minII Bello Hilton Work Phone: 1(600)733-[address] [place], [place] 3907306-05-2024 10:09-0400 Respiratory rate18 /minII Bello Hilton Work Phone: 1(798)[address]42 [address]06-05-2024 10:09-0400 SaO2% (BldA) [Mass fraction]96 %II Bello Hilton Work Phone: 1(291)897-[address] [place], [place] 3907306-05-2024 10:09-0400 Systolic blood bkvpoffo885 mm[Hg]II Bello Hilton Work Phone: 1(527)343-[address] [place], [place] 3907304-09-2024 11:20-0400 Body ytidms819.1 cmII Bello Hilton Work Phone: 1(526)[address]04-09-2024 11:20-0400 Body mass index (BMI) [Ratio]43.2 kg/m2II Bello Hilton Work Phone: 1(601)899-[address] [place], [place] 3907304-09-2024 11:20-0400 Body poigtt073.67 kgII Bello Hilton Work Phone: 1(618)[address]04-09-2024 11:20-0400 Diastolic blood mm[Hg]II Bello Hilton Work Phone: 1(123)[address]04-09-2024 11:20-0400 Heart rate73 /minII Bello Hilton Work Phone: 1(915)[address]142 [address]04-09-2024 11:20-0400 Respiratory rate18 /minII Bello Hilton Work Phone: 1(833)212-[address] [place], [place] 3907304-09-2024 11:20-0400 SaO2% (BldA) [Mass fraction]96 %II Bello Hilton Work Phone: 1(838)153-[address] [place], [place] 3907304-09-2024 11:20-0400 Systolic blood mm[Hg]II Bello Hilton Work Phone: 1(198)364-[address] [place], [place] 3907304-06-2024 11:30-0400 Diastolic blood weiirjbq36 mm[Hg]II Bello Hilton Work Phone: 1(241)742-[address] [place], [place] 3907304-06-2024 11:30-0400 Heart rate76 /minII Bello Hilton Work Phone: 1(221)953-[address] [place], [place] 3907304-06-2024 11:30-0400 Respiratory rate18 /minII Bello Hilton Work Phone: 1(916)425-[address] [place], [place] 3907304-06-2024 11:30-0400 SaO2% (BldA) [Mass fraction]95 %II Bello Hilton Work Phone: [facility]04-06-2024 11:30-0400 Systolic blood bbatbbck969 mm[Hg]II Bello Hilton Work Phone: [facility]04-06-2024 10:34-0400 Body famfsx719.37 cmII Bello Hilton Work Phone: [facility]04-06-2024 10:34-0400 Body ammmyr482 kgII Bello Hilton Work Phone: [facility]04-06-2024 10:33-0400 Body oszlzbayuzk02.6 [degF]II Bello Hilton Work Phone: 1(536)557-[address] [place], [place] 9461903-05-2024 11:09-0500 Body hzubde626.1 cmII Bello Hilton Work Phone: 1(913)290-[address] [place], [place] [address]461903-05-2024 11:09-0500 Body mass index (BMI) [Ratio]41.3 kg/m2II Bello Hilton Work Phone: [facility]03-05-2024 11:09-0500 Body zkiglr579.71 kgII Bello Hilton Work Phone: [facility]02-06-2024 10:30-0500 Body jsahwq867.1 cmDeelli Dexter Other [employer] Other 02-06-2024 10:30-0500Body mass index (BMI) [Ratio] 41.71 kg/j3Yygnchtelli Floresly Other [employer] Other 02-06-2024 10:30-0500Body wnlgho500.72 kgDeelli Floresly Other [employer] Other 02-06-2024 10:30-0500Diastolic blood mm[Hg] Lilliam Scally Other [place] [employer] Other 02-06-2024 10:30-0500Respiratory rate18 /minDebjose g Dexter Other [facility] [employer] Other 02-06-2024 10:30-9495JkK0% (BldA) [Mass fraction]97 % Lilliam Dexter Other [facility] [employer] Other 02-06-2024 10:30-0500Systolic blood nexbzqyx089 mm[Hg] Lilliam Dexter Other [facility] [employer] Other 02-02-2024 08:24-0500Diastolic blood upctwvtu30 mm[Hg] Emiliano Lagos [phone]-[facility]bcwMet[facility] [place] 06-03-2023 08:24-0500Heart rate91 /Domenica Lagos 268-6133Prrptu-DyiupMetrohealth [facility] [place] 06-03-2023 08:24-0500Systolic blood wujsegfu568 mm[Hg]Emiliano Lagos 509-2922Tfeqxo-MzsttMetrohealth [facility] [place] 02-22-2023 14:36-0400Body .8 Kavita Murphy MD Work Phone: [facility]10-24-2023 14:36-0400 Body mass index (BMI) [Ratio]43.09 kg/p9RnxfikRonnie Murphy MD Work Phone: [facility]10-24-2023 14:36-0400 Body lzsfif882.67 kgRonnie Murphy MD Work Phone: [facility]10-17-2023 13:00-0400 Body pxsczi518.1 cmDawn Fitt Other [employer] Other 10-17-2023 13:00-0400Body mass index (BMI) [Ratio] 42.16 kg/m2Dawn Fitt Other [employer] Other 10-17-2023 13:00-0400Body dbirwt498.94 kgDawn Fitt Other [employer] Other 10-03-2023 10:15-0400Body cfalit277.1 cmDeborah Scally Other [employer] Other 10-03-2023 10:15-0400Body mass index (BMI) [Ratio]42.2 kg/o6Dxcnfuh Alexandrely Other [employer] Other 10-03-2023 10:15-0400Body igsepg446.03 kgDeborah Scally Other [employer] Other 10-03-2023 10:15-0400Diastolic blood cxhxhvri15 mm[Hg] Lilliam Scally Other [employer] Other 10-03-2023 10:15-0400Respiratory rate20 /minDeborah Scally Other [employer] Other 10-03-2023 10:15-8545UyW1% (BldA) [Mass fraction]96 % Lilliam Scally Other [employer] Other 10-03-2023 10:15-0400Systolic blood sjorpfma256 mm[Hg] Lilliam Scally Other [employer] Other 08-23-2023 13:00-0400Body .1 cmDawn Fitt Other [employer] Other 08-23-2023 13:00-0400Body mass index (BMI) [Ratio] 41.73 kg/m2Dawn Fitt Other [employer] Other 08-23-2023 13:00-0400Body onbrbt248.76 kgDawn Fitt Other [employer] Other 06-20-2023 10:15-0400Body stfcmu839.1 cmDeborah Scally Other [employer] Other 06-20-2023 10:15-0400Body mass index (BMI) [Ratio] 41.41 kg/a4Oufcnmp Scally Other [employer] Other 06-20-2023 10:15-0400Body iblfzh908.9 kgDeborah Scally Other [employer] Other 06-20-2023 10:15-0400Diastolic blood elmmsvkt74 mm[Hg] Lilliam Scally Other [employer] Other 06-20-2023 10:15-0400Respiratory rate18 /minDeborah Scally Other [employer] Other 06-20-2023 10:15-1810QvJ4% (BldA) [Mass fraction]96 % Lilliam Scally Other [employer] Other 06-20-2023 10:15-0400Systolic blood iyzodmxz328 mm[Hg] Lilliam Scally Other [employer] Other 06-20-2023 08:15-0400Body oomapk153.1 cmDawn Fitt Other [employer] Other 03-28-2023 10:45-0400Body tijcgc628.1 cmDeborjolly Floresly Other [employer] Other 03-28-2023 10:45-0400Body mass index (BMI) [Ratio] 41.08 kg/j0Fcrukav Scally Other [employer] Other 03-28-2023 10:45-0400Body .99 kgDeborah Alexandrely Other [employer] Other 03-28-2023 10:45-0400Diastolic blood dvpvbihr74 mm[Hg] Lilliam Scally Other [employer] Other 03-28-2023 10:45-0400Respiratory rate20 /minDeborah Scally Other [employer] Other 03-28-2023 10:45-6381LdP6% (BldA) [Mass fraction]97 % Lilliam Scally Other [employer] Other 03-28-2023 10:45-0400Systolic blood thfdquzv137 mm[Hg] Lilliam Scally Other [employer] Other 02-14-2023 09:15-0500Body elzynm888.1 cmDawn Fitt Other [place] [employer] Other 01-31-2023 13:03-0500Body dbioix030.83 cmGopi Solis MD Work Phone: [phone]-Sscsd [facility] [address] DO Work Phone: 1(823) 854-975401-31-2023 13:03-0500Body mass index (BMI) [Ratio]43.6 kg/c0RujlrehGopi Solis MD Work Phone: [phone]-Ifscw [facility] DO Work Phone: 1(162) 838-213301-31-2023 13:03-0500Body surface area Derived from formula2.19 e0RywpanmGopi Solis MD Work Phone: mp110-1676JK-Kohxn [facility] [address] DO Work Phone: 1(714) 276-713601-31-2023 13:03-0500Body olvwkc010.03 kgGopi Solis MD Work Phone: 1(694) 428-7131978-7063GI-Khfat [facility] [address] DO Work Phone: 1(791) 795-198501-31-2023 13:03-0500Diastolic blood wzgaogmh81 mm[Hg] Gopi Solis MD Work Phone: 1(186) 669-4757894-8130SK-Qpfpo [facility] DO Work Phone: 1(145) 362-544801-31-2023 13:03-0500Heart rate76 /minGopi Solis MD Work Phone: 1(269) 951-6255745-5902EX-Cqwkl [facility] DO Work Phone: 1(340) 261-298701-31-2023 13:03-0500Systolic blood szvennht529 mm[Hg] Gopi Solis MD Work Phone: 1(385) 352-1279660-1095CL-Coacm [facility] DO Work Phone: 1(613) 681-912801-31-2023 12:30-0500Body kgaraz230.1 cmDeborah Scally Other [employer] Other 01-31-2023 12:30-0500Body mass index (BMI) [Ratio] 42.85 kg/j6Kpwssepelli Floresly Other [employer] Other 01-31-2023 12:30-0500Body .8 kgDeelli Floresly Other [employer] Other 01-31-2023 12:30-0500Diastolic blood cysxxhtr25 mm[Hg] Lilliam Scally Other [employer] Other 01-31-2023 12:30-0500Respiratory rate20 /minDeborah Scally Other [employer] Other 01-31-2023 12:30-9705ObG9% (BldA) [Mass fraction]97 % Lilliam Scally Other [employer] Other 01-31-2023 12:30-0500Systolic blood mm[Hg] Lilliam Scally Other [employer] Other 10-11-2022 15:01-0400Body .56 Kavita Murphy MD Work Phone: mg761-0087ZH-TkajnzpiwdtbxoYext Work Phone: 1(730) 246-999510-11-2022 15:01-0400Body mass index (BMI) [Ratio] 46.35 kg/p3OtzrkaRonnie Murphy MD Work Phone: mg895-8166NU-PupbailcadguhhYext Work Phone: 1(761) 734-788610-11-2022 15:01-0400Body surface area Derived from formula2.22 b7InwuuqRonnie Murphy MD Work Phone: JK-Gdnoupiazzknqc-Christ Work Phone: 1(788) 974-856210-11-2022 15:01-0400Body rmdoov278.47 kgRonnie Murphy MD Work Phone: UD-Wslirddofmkxim-Christ Work Phone: 1(666) 113-247911-30-2021 15:33-0500Body pirtjg542.56 Kavita Murphy MD Work Phone: PK-Praohzxowlqrnd-Christ Work Phone: 1(434) 980-290111-30-2021 15:33-0500Body mass index (BMI) [Ratio] 46.52 kg/w6DmoxhpRonnie Murphy MD Work Phone: JJ-Srgcicmrmqsnch-Christ Work Phone: 1(910) 978-198411-30-2021 15:33-0500Body surface area Derived from formula2.23 w0SkrrnfRonnie Murphy MD Work Phone: QY-Vcqliddxpmrlnv-Waldo Work Phone: 1(881) 822-109011-30-2021 15:33-0500Body thiacqdaeru38.2 [degF]Ronnie Murphy MD Work Phone: NM-Cevsngdmhgipex-Waldo Work Phone: 1(840) 315-863311-30-2021 15:33-0500Body dctdti819.93 kgRonnie Muprhy MD Work Phone: HV-Hcsptykzviyyii-[place] Work Phone: 1(372) 763-385011-02-2021 12:52-0400Body ohhono959.56 Kavita Murphy MD Work Phone: [phone]-Dntkhcjxlmwmhz-[place] Work Phone: 1(478) 946-923211-02-2021 12:52-0400Body mass index (BMI) [Ratio] 46.35 kg/o1MryqskRonnie Murphy MD Work Phone: HB-Udmkqjbpkeyoec-Waldo Work Phone: 1(191) 587-502511-02-2021 12:52-0400Body surface area Derived from formula2.22 j5BlucukRonnie Murphy MD Work Phone: TZ-Uctdmpfspmsfbu-Christ Work Phone: 1(268) 683-751911-02-2021 12:52-0400Body ijncsb319.47 kgRonnie Murphy MD Work Phone: [phone]-Cavkaxeolkxgjg-Christ Work Phone: 1(103) 345-265410-12-2021 15:05-0400Body eieuva031.56 Kavita Murphy MD Work Phone: QL-Skdvmchrvltbmh-Christ Work Phone: 1(132) 575-588010-12-2021 15:05-0400Body mass index (BMI) [Ratio]46 kg/p0LhxypvRonnie Murphy MD Work Phone: JB-Xzqscanlpmfvsu-Christ Work Phone: 1(537) 873-975210-12-2021 15:05-0400Body surface area Derived from formula2.22 Ramakrishna Murphy MD Work Phone: QA-Ridgixwohcspem-Christ Work Phone: 1(608) 502-847810-12-2021 15:05-0400Body asglcqcjoqn34.4 [degF]Ronnie Murphy MD Work Phone: [phone]-Yyrllrldrsggbs-Christ Work Phone: 1(288) 892-758910-12-2021 15:05-0400Body .56 kgRonnie Murphy MD Work Phone: [phone]-Wowlizdyjprfqy-Waldo Work Phone: Encounters Encounter DateEncounter TypeCare ProviderFacilityStart: 03-12-2025 End: 86-58-3010uurpqkavouBeelhx Berry II Work Phone: [phone]-Ygvqwadfw Health CardiologyStart: 03-12-2025 End: 79-50-3652Msgeoef encounter Maida Meléndez MD-[facility] Work Phone: Start: 03-08-2025 End: 89-64-2389Pcxuxk Jay Jay SINGH Work Phone: [facility] MedinceStart: 03-08-2025 End: 36-19-1974Fhcqiv Jay Jay SINGH Work Phone: NOKF [facility] MedinceStart: 03-08-2025 End: 22-94-0859nfkkbiaxxvFXAKT M HEMMERNot AvailableStart: 03-08-2025 End: 66-55-9868Ejqday outpatient visit 25 minutesZulma SINGH Work Phone: NOM[facility] MedinceComment on above:Bilateral impacted cerumen (Primary Dx); Vertigo; Dizziness; Acute dysfunction of left eustachian tubeStart: 02-26-2025 End: 55-61-0184Amfldqi encounter Maida Meléndez MD-Electrodiagnostics Work Phone: Start: 02-26-2025 End: 91-12-7342jewftorwvwZikwme Hilton II Work Phone: [phone])424-7353803-8215-ZtxvjntanugxyrnrmgQcrrx: 87-19-0268Thc-patient / Non-visitGeorge Michael Sam MD-[facility] Work Phone: Start: 02-07-2025 End: 84-12-0916Bleknp Jay Jay SINGH Work Phone: [facility] MedinceStart: 02-07-2025 End: 00-88-2838Oudedlvargas SINGH Work Phone: [facility] MedinceStart: 02-07-2025 End: 53-37-6298Vxoipll encounter procedureZulma SINGH Work Phone: [facility]oms [facility] HospitalnceComment on above:Medicare annual wellness visit, subsequent (Primary [...] Morbid obesity with BMI of 40.0-44.9, adult ([facility]-HCC); Thyrotoxicosis without thyroid storm, unspecified thyrotoxicosis type; Vitamin D deficiency; Allergic rhinitis due to pollen, unspecified seasonality; Anxiety and depression; Screening for malignant neoplasm of colon; Bipolar 1 disorder, depressed, partial remission (HCC); Estrogen deficiency; History of basal cell carcinoma; Lipoprotein deficiency disorder; Mixed hyperlipidemiaStart: 02-07-2025 End: 86-96-4454xqiroukglnOHGBE M HEMMERNot AvailableStart: 02-02-2025 End: 85-61-3347Mcqbmzipp Result EncounterBello Hilton MD Work Phone: noms External Department UnsolicitedStart: 02-02-2025 End: 32-65-9122Ppfbkklfs Result EncounterDakenisha Hilton MD Work Phone: noms External Department UnsolicitedStart: 01-02-2025 End: 93-34-5652zovfqzvkpeMvpqun Berry II Work Phone: [facility] Work Phone: Start: 01-02-2025 End: 62-60-9244Hwrplnl encounter procedureLilliam Dexter [facility] Work Phone: Start: 12-19-2024 End: 65-46-4531gotsyanawwAoudnn Berry II Work Phone: [facility] Work Phone: Start: 12-19-2024 End: 18-90-8534Hycpamj encounter procedureMaricel ValenciaLos [facility] Work Phone: Start: 12-13-2024 End: 82-79-5126avoakonhbwGnpudy Berry II Work Phone: [facility] Work Phone: Start: 12-13-2024 End: 09-80-6098Lpvqkqt encounter procedureCaryl Meléndez MD-[facility] Work Phone: Start: 11-07-2024 End: 39-86-0973acqbtqlqspBpswwy Hilton II Work Phone: [facility] Work Phone: Start: 11-07-2024 End: 44-70-5430Vzveeqv encounter procedureLilliam Dexter [facility] Work Phone: Start: 10-09-2024 End: 90-78-7150Nuknoipkj encounterDakenisha Hilton MD Work Phone: NOMS CI FMComment on above:Med RefillStart: 10-09-2024 ambulatoryBen WassermanFacility:[facility] Hospitaltart: 76-19-7643Wdiudaxpta RecurringBen Wasserman [facility]DSUM[facility] CredibleStart: 10-02-2024 End: 82-49-6228Zipklajag Result EncounterGeneric External Data ProviderNOMS External Department UnsolicitedStart: 10-02-2024 End: 43-71-5360Etktvzyuu Result EncounterGeneric External Data ProviderNOMS External Department UnsolicitedStart: 09-19-2024 End: 31-71-6231Rlzknyx encounter procedureLilliam Dexter [facility] Work Phone: Start: 09-18-2024 End: 21-24-4778Ozxcfk outpatient visit 25 minutesShgerhard Hubbard [employer] Work Phone: NOM[facility] CI FMComment on above:BiPAP (biphasic positive airway pressure) dependence (Primary Dx)Start: 09-18-2024 End: 28-24-5146chrhxbjwotQSHHYTSergio Dixon AvailableStart: 09-03-2024 End: 99-40-6043Uxyrsn Jay Jay SINGH Work Phone: [facility] CI FMStart: 09-03-2024 End: 14-85-6929Awbmdk Jay Jay SINGH Work Phone: [facility] CI FMStart: 09-03-2024 End: 46-36-0197Bcbxky outpatient visit 15 minutesZulma SINGH Work Phone: NOM[facility] CI FMComment on above:Right ear impacted cerumen (Primary Dx); Dizziness; Other infective acute otitis externa of right earStart: 09-03-2024 End: 02-86-8481fbelzlpvfiNCUQRHolger Martinez AvailableStart: 08-22-2024 End: 21-99-0372Apefgpttpg hospital [facility] by physician[facility] [address] [place], [place] [address]Comment on above:Encounter for screening for cardiovascular disorders; Mixed hyperlipidemia; Type 2 diabetes mellitus without complications; Cardiomegaly; Other ill-defined heart diseasesStart: 08-22-2024 End: 40-41-2215gbgyylxibzELSVNPMercy Health Fairfield Hospitaltart: 07-19-2024 End: 33-17-3115Fnqalt outpatient visit 25 minutesDominic Saldana MD Work Phone: [facility] CampusComment on above: Hypothyroidism, unspecified type (Primary Dx); Class 3 severe obesity with serious comorbidity and body mass index (BMI) of 40.0 to 44.9 in adult,unspecified obesity type; Adrenal nodule; Type 2 diabetes mellitus without complication, without long-term current use of insulin (Multi)Start: 07-19-2024 End: 95-90-7181zbwuqwsmlcYIAYJArchbold - [facility] AmbulatoryStart: 07-04-2024 End: 46-66-0071pyiqdqpsbqWrftmp Berry II Work Phone: [facility] Work Phone: Start: 07-04-2024 End: 43-44-8242Axyuone encounter procedureDakenisha Hilton II Work Phone: [facility] Work Phone: Start: 18-16-3200Tqlxipzvnd RecurringDaniel Yobani II Work Phone: [facility]- CredibleStart: 05-31-2024 End: 52-61-1305Bwgiqydyc Result EncounterBello Hilton MD Work Phone: [facility] External Department UnsolicitedStart: 05-31-2024 End: 32-20-0945Vubgxjxge Result EncounterBello Hilton MD Work Phone: [facility] External Department UnsolicitedStart: 04-19-2024 End: 97-86-3297Etmprwely Result EncounterGeneric External Data ProviderNOMS External Department UnsolicitedStart: 04-19-2024 End: 40-71-9274Jpmszliev Result EncounterGeneric External Data ProviderNOMS External Department UnsolicitedStart: 04-18-2024 End: 35-83-6673Tcvyzqklc Result EncounterGeneric External Data ProviderNOMS External Department UnsolicitedStart: 04-18-2024 End: 81-02-3656Ndcuakjux Result EncounterGeneric External Data ProviderNOMS External Department UnsolicitedStart: 04-17-2024 End: 13-06-7738Ljbzsufyn Result EncounterGeneric External Data ProviderNOMS External Department UnsolicitedStart: 04-17-2024 End: 78-26-7452Yasjahovc Result EncounterGeneric External Data ProviderNOMS External Department UnsolicitedStart: 04-10-2024 End: 10-77-4868wctwnnfmfuWZMSVJ B BERRYGrand Lake Joint Township District [facility]2024 End: 30-67-2177nyengpkczuCGJOE KORTBAWIKettering Health [facility] Township AmbulatoryStart: 04-10-2024 End: 72-40-3109Tgeygd outpatient new 60 minutesDominic Saldana MD Work Phone: uh [facility] SomersetComment on above:Adrenal nodule (Primary Dx); Hypothyroidism, unspecified type; Type 2 diabetes mellitus without complication, without long-term current use of insulin (Multi)Start: 03-05-2024 End: 29-89-0089Mhrpdiaym encounterBello Hilton MD Work Phone: [facility] CI FMStart: 02-21-2024 End: 23-93-6140cioqqehaqhJCOZITHuron Valley-Sinai Hospital AmbulatoryStart: 02-21-2024 End: 98-02-9120Citjvd outpatient visit 15 minutesPiez Murphy MD Work Phone: uh [facility] SomersetComment on above:Tracheal stenosis (Primary Dx); Gastroesophageal reflux disease without esophagitisStart: 02-14-2024 End: 90-99-3838Foojko flowsIzabella Hubbard COLOR PRINT INSPECTOR Work Phone: [facility] CI FMStart: 02-14-2024 End: 94-91-2234Vryrer flowsIzabella Hubbard COLOR PRINT INSPECTOR Work Phone: [facility] CI FMStart: 02-14-2024 End: 49-21-3085Ovyfu of hemosiderin, quantCristina Hubbard COLOR PRINT INSPECTOR Work Phone: [facility] HealthcareStart: 02-14-2024 End: 31-88-0075Auxmqab encounter Randa Hubbard COLOR PRINT INSPECTOR Work Phone: [facility] CI FMComment on above:Medicare annual wellness visit, [...] (CMS/HCC); Mixed hyperlipidemia (CMS/HCC); Lipoprotein deficiency disorder ([facility]); Routine general medical examination at health care facility; Acute bronchitis, unspecified organism; Estrogen deficiency; Screening for heart disease; Trigger finger of left hand, unspecified finger; Type 2 diabetes mellitus with other specified complication ([facility])Start: 12-20-2023 End: 66-66-7411rdaqihxhcvCY Daniel Berry Work Phone: [facility] Work Phone: Start: 12-20-2023 End: 28-57-5117Mwbeuqc encounter procedureII Bello Hilton Work Phone: [facility] Work Phone: Start: 74-28-6093Agabltbmhh RecurringII Bello Yobani Work Phone: [phone] [place] [address]-[facility] CenterStart: 10-19-2023 End: 83-76-3780Ikwvjoov ReferredII Bello Hilton Work Phone: [phone] [place] [address] for Coordinated Care Work Phone: Start: 10-19-2023 End: 34-28-2055sjuxlfhkvoPX Bellojered Hilton Work Phone: [facility] Work Phone: Start: 10-19-2023 End: 01-17-0607Nrkecjs encounter procedureII Bello Hilton Work Phone: [facility] Work Phone: Start: 10-05-2023 End: 62-36-8758hyybtfjlhrOD Bello Hilton Work Phone: [facility] Work Phone: Start: 10-05-2023 End: 85-77-4594Sxiqnxh encounter procedureII Bello Hilton Work Phone: [facility] [place] Work Phone: Start: 08-09-2023 End: 33-78-0570ylrcvmtfyrUL Bello Hilton Work Phone: [facility] Work Phone: Start: 08-09-2023 End: 78-02-8000Uqobpry encounter procedureII Bello Hilton Work Phone: [facility] Work Phone: Start: 08-06-2023 End: 42-78-4937Bekpaamxz department patient visitII Bello Hilton Work Phone: [facility] Work Phone: Start: 07-05-2023 End: 13-29-7016Wlqntqt encounter procedureII Bello Hilton Work Phone: [facility] Work Phone: Start: 78-64-0189Prutafgpyu RecurringII Bello Hilton Work Phone: [facility]- CredibleStart: 06-07-2023(FCCCWMNF/U) Weight Management f/uDeboraMoody Hospital Coordinated Care ClinicStart: 06-07-2023 End: 72-07-1428gqtfuasulwRflnjjy Scally Other [place] [employer] Other Start: 95-82-3906Kkgexxfjmp RecurringII Bello Hilton Work Phone: [facility]-Weight Management Work Phone: Start: 06-03-2023 End: 18-87-8648lkuqhapnobZsbf E. MouranyFacility:EVANS Guptatart: 06-03-2023 End: 71-73-1702Ojothas encounter procedureEmiliano Lagos [phone]-RzorzHocking Valley [facility] [place] Start: 05-25-2023 End: 92-86-9917srjoeicbpxEiulxtx Scally Other [employer] Other Start: 95-40-0664Bifbnpebo encounterLilliam Dexter [facility] Coordinated Care ClinicStart: 76-58-3220cvoylfgtkkNajo Geraharinder Facility:[facility] Hospitaltart: 92-02-5192Hwy-patient / Non-visitII Bello Hilton Work Phone: [facility] Physician GroupIn[facility] Work Phone: Start: 78-58-0178Alawtnmie encounterLilliam Dexter [facility] Coordinated Care ClinicStart: 05-16-2023 End: 48-89-8734ppqanjqzliZX Bello Hilton Work Phone: [employer] Other Start: 05-16-2023 End: 81-79-3728Bfkidxmz ReferredII Bello Hilton Work Phone: [facility] Ctr-LAB Path Spec [facility]ks HospStart: 92-00-0437Gdx-patient / Non-visitII Bello Hilton Work Phone: [facility] Physician GroupInland [facility] Professional [facility] Work Phone: Start: 05-15-2023 End: 74-20-4818xouoaezomoBEVEMO FAWWADFacility:CD:[id number]: 05-11-2023 End: 24-61-5149Pzfsdllmd Result EncounterBello Hilton MD Work Phone: [facility] External Department UnsolicitedStart: 05-11-2023 End: 17-64-3388Wswazhhwa Result EncounterBello Hilton MD Work Phone: noms External Department UnsolicitedStart: 04-13-2023 End: 56-25-1289xtxldsytonIiqvufn Scally Other [employer] Other Start: 85-50-7964Qvrjlsadn encounterRoger Williams Medical Center Coordinated Care ClinicStart: 03-18-2023 End: 39-82-7371sdoaspixdaKsszhxa Scally Other nossm rehab [employer] Other Start: 46-56-5292Llrabpwsn encounterRoger Williams Medical Center Coordinated Care ClinicStart: 51-08-6464Xdhwuliqgp RecurringII Bello Hilton Work Phone: [facility]-Weight Management Work Phone: Start: 02-22-2023 End: 08-43-6505Ofkpxn outpatient visit 15 minutesPiez Murphy MD Work Phone: [facility] CampusComment on above:Tracheal stenosis (Primary Dx)Start: 02-15-2023([facility] RD FU) [facility] F/U Registerd Grinding Wheel Operator Nikki Orozco Coordinated Care ClinicStart: 02-15-2023 End: 62-18-0817okarhqbtpuUqfc Fitt Other nossm rehab [employer] Other Start: 02-01-2023([facility]/U) Weight Management f/u Lilliam DexterNovant Health Rowan [facility] Center Coordinated Care ClinicStart: 02-01-2023 End: 72-27-1873zvtfcfaputSfhxymi Scally Other [place] [employer] Other Start: 97-60-8060Vx RenewalCheryl Cox 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 ARC-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 Work Phone: [phone]-Ojycqjbdylouqp-Admin [place] [address] Work Phone: Start: 01-05-2023 End: 05-84-2122byskjuigniKkbsyif Scally Other nossm rehab [employer] Other Start: 05-81-0749Uicnroksp encounterRoger Williams Medical Center Coordinated Care ClinicStart: 12-22-2022(FCCC WMNI) WMN Initial ProviderDawn [facility] Coordinated Care ClinicStart: 12-22-2022 End: 32-25-1394qylowksarxMzfc Fitt Other noEvermind Other Start: 10-19-2022([facility]) Weight Management f/u Lilliam AlexandrelyFirelands Coordinated Care ClinicStart: 10-19-2022 End: 73-83-1186hqngcoofwoVycl Fitt Other noEvermind Other Start: 21-10-7669IZT FOR [employer] 2-10 30MDVeterans Affairs Medical [facility] Coordinated Care ClinicStart: 09-02-2022 End: 61-80-3986gzcfoiipfwRVGTADC SCALLYFacility:S8Hpmln: 08-05-2022 End: 61-37-3655rsrbewhuuoYatojkt Scally Other [employer] Other Start: 71-68-9640Fhbxjklev encounterChrist Hospital AlexandreVeterans Affairs [facility] Coordinated Care ClinicStart: 07-27-2022([facility]/U) Weight Management f/uDeborah GueritaFirelands Coordinated Care ClinicStart: 07-27-2022 End: 54-70-4591qkmldpnfpjTfxddke Scally Other [employer] Other Start: 06-29-2022 End: 36-81-2028zxwlkbcaiaLF DOCTOR MISCFacility:Y5Zmnye: 06-15-2022 End: 14-91-3556stggvyuvdhYxym Fitt Other [employer] Other Start: 47-62-9014KLW FOR [employer] 2-10 30MDVeterans Affairs Medical Center-[facility] Coordinated Care ClinicStart: 44-56-8915Lbmzli consultation new/estab patient 60 minMourhaf Traboulssi MD Work Phone: [phone]-Ctlkk [facility] [address] DO Work Phone: Start: 19-29-4697Uanczz outpatient new 45 minutes Gopi Solis MD Work Phone: [phone]-Wgrla [facility] [address] DO Work Phone: Start: 06-01-2022([facility]ENTERWMNF/U) Weight Management f/u Lilliam Brownjared Coordinated Care ClinicStart: 06-01-2022 End: 65-80-5296phieynlhfzZgbhep Braxton Berry IIFacility:[id number]: 05-17-2022 End: 22-74-1002dylzpqkvmuRU DOCTOR MISCFacility:E0Xulrm: 05-11-2022 End: 19-09-4779oyjptybvomLB CAROL ASCENCIOFacility:P8Lfjje: 04-35-3586Cr Change 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 RONNEI MURPHY Facility:[id number]: 05-15-2021 End: 48-52-5713Groykqq encounter procedureBELLO HILTON [facility] Start: 25-09-3776Qq Yuly Murphy MD Work Phone: [phone]-Mfcrbggfyibsjc-Admin [place] [address] Work Phone: Start: 31-87-3206Hiltrw outpatient visit 15 minutes Ronnie Murphy MD Work Phone: [phone]-Nkjyefrchzqkvj-Waldo Work Phone: Start: 40-23-5673BWKMTYV, Provider: Ronnie Murphy, Status: Pen, Time: 9:00 Bear Murphy MD Work Phone: [phone]-Msthycxdzpplvs-Nishant Work Phone: [phone]: 68-48-8479Vtptx Willian Murphy MD Work Phone: UD-Yyhtvuwoxwijdf-Nishant Work Phone: [phone]: 45-90-5005Usfej Willian Murphy MD Work Phone: [phone]-Vulsfewsheichf-Christ Work Phone: Start: 07-90-8788Iexuzksbo encounterCheryl Cox 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 AR[employer]-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 Work Phone: [phone]-Ixtyuzfzhzunsb-Suburban Work Phone: [phone]: 93-28-5261Whvaav outpatient visit 15 minutes Ronine Murphy MD Work Phone: [phone]-Idqbvxzheidtqb-Waldo Work Phone: Start: 91-62-8921Enjvdyj encounter procedurePierre VptyounRW-Hrqayilrvdoqsp-Wktcljwe Work Phone: start: 32-00-8926Ldgddjd encounter procedurePierre LkvwnllRT-Nooylfavdsdvog-Tnnjt [place] [address] Work Phone: Start: 24-30-6606Stxmqxe encounter procedurePierre YulirydJH-Qmvycwxtbjerrp-Fxsdv [place] [address] Work Phone: Start: 39-63-5253Nxthbaa encounter procedurePierre OmsplldGA-Fqftjrhipgpvvo-Grhlo [place] [address] Work Phone: Start: 27-84-0202Gcybixq encounter procedurePierre NsunkflXA-Xkmrpimnupzqil-Humcw [place] [address] Work Phone: Procedures DateProcedureProcedure DetailPerforming ClinicianStart: 43-13-3673Xjpefjb impacted cerumen instrumentation Job SINGH Work Phone: Start: 65-79-0916JYO CBC WITH AUTO DIFFBello Hilton MD Work Phone: Start: 08-95-5840QFH HEMOGLOBIN J1QViyvazBello Hilton MD Work Phone: Start: 58-92-6303WJJ MICROALB CREAT RATIO RANDOMBello Hilton MD Work Phone: Start: 10-22-2190WWK THYROID STIM HORMONEGeneric External Data ProviderStart: 71-76-3853Lwcbdqe impacted cerumen instrumentation Job SINGH Work Phone: Start: 88-32-0423AU TOMOSYNTHESIS SCREENING Shimon Hilton MD Work Phone: Start: 39-36-2929CwwjrfveckkMqfgar Berry MD Work Phone: Start: 68-97-0164NY ABDOMEN WO/W CONGeneric External Data ProviderStart: 23-53-6255AFL CREATININEGeneric External Data ProviderStart: 63-69-7333GQB DHEA SULFATEGeneric External Data ProviderStart: 89-36-2105VIUV CORTISOLGeneric External Data ProviderStart: 21-83-7466Zazigagzdgk [Units/volume] in Serum or PlasmaDominic Saldana MD Work Phone: Start: 68-15-7483Ydone 1996 panel - Serum or Plasma Ronnie Murphy MD Work Phone: Start: 51-78-5397Drnxakpdqyn [Units/volume] in Serum or PlasmaRonnie Murphy MD Work Phone: Start: 62-67-2861Yilmrbnadt glycosylated u6mLcogyd Yari Hubbard COLOR PRINT INSPECTOR Work Phone: Start: 36-90-5273Qdycs Strep (POC)II Bello Hilton Work Phone: Start: 50-17-1203Ntpfny scan veins of upper limbII Bello Hilton Work Phone: Start: 12-02-8459Roanx chest X-rayII Bello Hilton Work Phone: Start: 38-21-1109Vilrt X-ray of left shoulderII Bello Hilton Work Phone: Start: 36-02-7156Sjnycmpuekxb cholecystectomyJogabi Mojuanitorylee Start: 14-25-6402ZY TOMOSYNTHESIS SCREENING Shimon Hilton MD Work Phone: Start: 65-20-0951QkwhuclztjpDknxap Shively COLOR PRINT INSPECTOR Work Phone: Start: 61-70-7333KcnziywqmuuAghkmn Lavertu MD Work Phone: Start: 21-29-9348Uzcrq colonoscopyMoveronique Solis MD Work Phone: Start: 89-76-5934ZbcghnpysbcOgfsgf Shively COLOR PRINT INSPECTOR Work Phone: Start: 79-20-2884Wgctpaobo mammoplastyEmiliano Lagos Start: 77-67-4394Ungqjbp of hernia repairEmiliano Lagos Hernia repairMourkeila Solis MD Work Phone: Operation on breastGopi Solis MD Work Phone: Plan of Treatment DateCare ActivityDetailAuthorStart: 95-40-7157Jbaferhtu for malignant neoplasm of colonNOMS HealthcareStart: 10-09-2026Medicare Annual Wellness (AWV)Medicare Annual Wellness (AWV)[facility] HealthcareStart: 21-52-2293Flnoj screening for protein Diabetes: Urine Protein ScreeningNONY HealthcareStart: 56-84-6723Rklfcqvkn vaccinationInfluenza Vaccine (#1)[facility] HealthcareComment on above:Postponed from 12/31/2024 (Patient Refused)Start: 07-16-2025 End: 33-63-4356Csclhjq encounter ppcecnraw90/17/2026 10:00 AM EDT Office Visit [facility] [address] [place], [place] [place] [address] [address] Department of Medicine- [place] [address] [facility]ertart: 53-08-1029Licrfyens for malignant neoplasm of breastMammogramNONY HealthcareStart: 95-60-3703Wrjrvwfejt A1c measurement Diabetes: Hemoglobin W0DPGXF HealthcareStart: 07-62-3210Gfumiiv stimulating hormone measurementTSOhioHealth Van Wert Hospital: 02-26-2025 End: 65-37-2469Tuodjsc encounter tsafbkles09/28/2025 1:15 PM EDT Office Visit [facility] [address] [place] [address] [place] [address] [place] [address] [facility] Centertart: 51-05-7446Xlzegysumkld myocardial perfusion stress studyNM joselin perf SPECT rest & strMercy Health Urbana Hospitaltart: 84-46-0075IATJY Heart perfusion at rest and W stress and W radionuclide [facility]tart: 49-43-5468Emkne panelLipid PanelUnSt. Francis Hospital Start: 89-21-8977Vbkvyjm stimulating hormone measurementTSOhioHealth Van [facility] Hospital: 22-22-1833Rvprr screening for proteinDiabetes: Urine Protein ScreeningMetroHealth Main [facility]: 02-13-2025 Medicare Annual Wellness (AWV)Medicare Annual Wellness (AWV)[facility] Start: 09-31-2357Tilmrrvfkptb Vaccine: 65+ Years (1 of 2 - PCV)Pneumococcal Vaccine: 65+ Years (1 of 2 - PCV)NOM HealthcareComment on above:Postponed from 1963 (Patient Refused)Postponed from 1976 (Patient Refused)Start: 02-07-2025 End: 04-60-6729PPF Skeletal system Views for bone densityDEXA bone density Imaging Routine Estrogen deficiency Expected: 02/07/2025, Expires: 02/07/2026 [facility] Work Phone: Comment on above:Expected: 02/07/2025, Expires: 02/07/2026Start: 02-07-2025 End: 14-70-2373Rwpashk encounter procedureNOMS [facility] MedinceComment on above:ArrivedStart: 72-58-8782Fyzifobs screeningDiabetes: Retinopathy Screening [facility] HealthcareStart: 33-54-8401XPSOR-19 Vaccine ( season)COVID-19 Vaccine ()[facility] HealthcareStart: 56-78-4332Lenmdetrx vaccinationToledo HospitalStart: 68-51-6026QvsksdtsjMercy Health Urbana Hospitaltart: 58-06-6400Izpnnqf referralSt. [facility]'S Hospital Work Phone: Start: 51-64-5854Soeag screening for proteinDiabetes: Urine Protein ScreeningRIVERTON HOSPITAL HealthcareStart: 09-10-2024 End: 59-77-2085EYW-IIGF-I Lab Routine Hypothyroidism, unspecified type Class 3 severe obesity with serious comorbidity and body mass index (BMI) of 40.0 to 44.9 in adult, unspecified obesity type Expected: 09/10/2024 (Approximate), Expires: 07/19/2025[facility] Work Phone: Comment on above:Expected: 09/10/2024 (Approximate), Expires: 07/19/2025Start: 09-10-2024 End: 34-01-6997Nakqljxblcr [Units/volume] in Serum or PlasmaThyroid Stimulating Hormone Lab Routine Hypothyroidism, unspecified type Class 3 severe obesity with serious comorbidity and body mass index (BMI) of 40.0 to 44.9 in adult, unspecified obesity type Expected: 09/10/2024 (Approximate), Expires: 07/19/2025 [facility] Service Area Work Phone: Comment on above:Expected: 09/10/2024 (Approximate), Expires: 07/19/2025Start: 09-10-2024 End: 85-59-7617Vfyliltsi (T4) free [Mass/volume] in Serum or PlasmaThyroxine, Free Lab Routine Hypothyroidism, unspecified type Class 3 severe obesity with serious comorbidity and body mass index (BMI) of 40.0 to 44.9 in adult, unspecified obesity type Expected: 09/10/2024 (Approximate), Expires: 07/19/2025 [facility] Work Phone: Comment on above:Expected: 09/10/2024 (Approximate), Expires: 07/19/2025Start: 09-03-2024 End: 16-58-3350Agttuzx encounter dchzygtmi94/05/2025 1:30 PM EDT Office Visit [facility] [address] [facility] [address] [place] [address] Zulma Moe PA [address] [place] [address] ArrivedNOMS CI FMComment on above:ArrivedStart: 08-22-2024 End: 87-54-4941Wosjuez encounter xasbkznud62/23/2025 4:30 PM EDT Appointment [facility] [address] [place] [phone] [facility] 08-07-2024 End: 56-61-5992Yvzltle encounter pxemszafg15/08/2025 10:20 AM EDT Office Visit [facility] [address] [place], [id number] [place] [address] [address] Department of Medicine- [place] [address] [facility] Centertart: 05-00-6781Cngnkwdzfk A1c measurementDiabetes: Hemoglobin A6FGfiejyzauqToledo HospitalStart: 66-33-5870Vdabqlfyan A1c measurementDiabetes: Hemoglobin Z6WGHBL HealthcareStart: 39-53-5131Pagtzdpew for malignant neoplasm of breastMammogramNONY HealthcareStart: 04-10-2024 End: 66-54-5165OS Adrenal gland WO and W contrast IVCT adrenals w and wo IV contrast Imaging Routine Adrenal nodule Expected: 04/10/2024, Expires: 04/10[facility] Service Area Work Phone: Comment on above:Expected: 04/10/2024, Expires: 04/10/2025Start: 13-77-6524Vopspapun vaccinationInfluenza Vaccine (#1)[facility]OM[facility] HealthcareComment on above:Postponed from 01/01/2024 (Patient Refused)Start: 04-10-2024 End: 09-80-9416Ylqfchb encounter axdlrmsbg33/10/2024 8:20 AM EST Office Visit [facility] [address] [place] [address] [place] [address] [address] Department of Medicine-[place] [address] [facility]: 02-21-2024 End: 60-70-7562Qhwqxrv encounter cjwqzifrz15/22/2024 1:15 PM EDT Office Visit [facility] [address] [place] [address] [place] [address] [address] [facility] [address] [facility]ert[facility]: 02-14-2024 End: 16-58-0302XBZ panel - Blood by Automated countCBC Lab Routine Medicare annual wellness visit, subsequent Gastroesophageal reflux disease without e sophagitis Lower extremity edema Type 2 diabetes mellitus without complication, without long-term current use of insulin (CMS/HCC) Expected: 02/14/2024 (Approximate), Expires: 02/13/2025NONY HealthcareComment on above:Expected: 02/14/2024 (Approximate), Expires: 02/13/2025Start: 02-14-2024 End: 01-27-1372Mmyqwyvpvwciu metabolic 2000 panel - Serum or PlasmaComprehensive metabolic panel Lab Routine Medicare annual wellness visit, subsequent Type 2 diabetes mellitus without complication, without long-term current use of insulin (CMS/HCC) Expected: 02/14/2024 (Approximate), Expires: 02/13/2025[facility] HealthcareComment on above:Expected: 02/14/2024 (Approximate), Expires: 02/13/2025Start: 02-14-2024 End: 65-44-8646NWV Skeletal system Views for bone densityDEXA bone density Imaging Routine Medicare annual wellness visit, subsequent Estrogen deficiency Expected: 02/14/2024 (Approximate), Expires: 02/13/2025[facility] Healthcare Work Phone: Comment on above:Expected: 02/14/2024 (Approximate), Expires: 02/13/2025Start: 02-14-2024 End: 99-04-3834Ravdv 1996 panel - Serum or PlasmaLipid panel Lab Routine Medicare annual wellness visit, subsequent Type 2 diabetes mellitus without complication, without long-term current use of insulin (CMS/HCC) Mixed hyperlipidemia (CMS/HCC) Expected: 02/14/2024 (Approximate), Expires: 02/13/2025 [facility] HealthcareComment on above:Expected: 02/14/2024 (Approximate), Expires: 02/13/2025Start: 02-14-2024 End: 05-98-9760Mxoxqgajoiww/Creatinine panel in random UrineMicroalbumin / creatinine, urine ratio Lab Routine Medicare annual wellness visit, subsequent Type 2 diabetes mellitus without complication, without long-term current use of insulin (CMS/HCC) Expected: 02/14/2024 (Approximate), Expires: 02/13/2025[facility] HealthcareComment on above:Expected: 02/14/2024 (Approximate), Expires: 02/13/2025Start: 02-14-2024 End: 54-53-7252Fblrrsjgdyt [Units/volume] in Serum or PlasmaTSH Lab Routine Medicare annual wellness visit, subsequent Acquired hypothyroidism (CMS/HCC) Expected: 02/14/2024 (Approximate), Expires: 02/13/2025NONY HealthcareComment on above:Expected: 02/14/2024 (Approximate), Expires: 02/13/2025Start: 02-14-2024 End: 51-78-9250Htsmpra encounter jkigmdbaf89/15/2024 9:00 AM EDT Office Visit [facility] [address] [facility] [address] [place] [address] Cristina Hubbard COLOR PRINT INSPECTOR [address] [facility] [address] [place] [address] ArrivedNOMS CI FMComment on above:ArrivedStart: 19-30-9894DPFQM-19 Vaccine ( season)COVID-19 Vaccine ( season)[facility]: 84-29-1020EBFMO-19 Vaccine ( season)COVID-19 Vaccine ()[facility]: 36-82-0346Dgbvvykkg vaccinationInfluenza Vaccine (#1)[facility] HealthcareStart: 08-15-2024Medicare Annual Wellness (AWV)Medicare Annual Wellness (AWV)[facility] HealthcareStart: 90-57-1106Aknuxddydo A1c measurement Diabetes: Hemoglobin G7QFAPR HealthcareStart: 52-62-8001Iofkla scan veins of upper limbUS venous duplex UE [facility] CenterStart: 28-17-8353UC Upper extremity vein - leftMercy Health Urbana Hospitaltart: 76-33-7459Inbdmndsi for malignant neoplasm of colonNONY HealthcareStart: 32-96-6598giictrivodJntczabbgxAkwsqras:GS BellevueStart: 27-45-6420Zeamzipor for malignant neoplasm of breastMammogramUnVan Wert County Hospital: 56-09-8919LLX, Provider: Ronnie Murphy, Status: Pen, Time: 2:45 PMFUV, Provider: Ronnie Murphy, Status: Pen, Time: 2:45 ERMW-Fnzegpfbtjyhhc-Dpqcidjd Work Phone: Start: 77-74-5131Tmgvshvao vaccinationInfluenza Vaccine (#1)[facility]: 16-17-8442JDB, Provider: Gopi Solis, Status: Pen, Time: 12:50 PMFUV, Provider: Gopi Solis, Status: Pen, Time: 12:50 PMMP-[facility] [address] Work Phone: Start: 16-83-3640MRAU ONLY, Provider: CHASITY HHVI NUCLEAR 01,[id number], Status: Pen, Time: 12:30 PMREST ONLY, Provider: CHASITY HHVI NUCLEAR 01,[id number], Status: Pen, Time: 12:30 PMMPJackson Medical Center 250 DO Work Phone: Start: 95-82-8846GREGJAYFW8, Provider: CHASITY REINAI NUCLEAR 01,[id number], Status: Pen, Time: 12:30 PMSTRESSNUC2, Provider: CHASITY HHVI NUCLEAR 01,[id number], Status: Pen, Time: 12:30 PMMPJackson Medical Center 250 DO Work Phone: Start: 35-76-1508RWVJE-19 Vaccine (4 - Pfizer series) COVID-19 Vaccine (4 - Pfizer series)[facility]: 90-62-0184LSL, Provider: Ronnie Murphy, Status: Pen, Time: 2:50 PMFUV, Provider: Ronnie Murphy, Status: Pen, Time: 2:50 JMDH-Xwdgwnbxxifpnh-Hsptffwe Work Phone: Start: 98-94-9762FSX, Provider: Ronnie Murphy, Status: Pen, Time: 3:00 PMPOV, Provider: Ronnie Murphy, Status: Pen, Time: 3:00 ENOM-Xogqbxsamptzdl-Kqyuquz Work Phone: start: 55-46-1004XJNVDMW, Provider: Ronnie Murphy, Status: Pen, Time: 9:00 [facility] [place] Provider: Ronnie Murphy, Status: Pen, Time: 9:00 LIAR-Jgzrbtypfswsmk-Mbuoajjg Work Phone: Start: 79-45-5750FMY, Provider: Ronnie Murphy, Status: Pen, Time: 1:00 PMFUV, Provider: Ronnie Murphy, Status: Pen, Time: 1:00 YHXA-Glkdhqhyuldzlh-Cebgnxqw Work Phone: start: 21-63-6450Impkeluei B Vaccines (1 of 3 - Risk 3-dose series)Hepatitis B Vaccines (1 of 3 - Risk 3-dose series)[facility]: 20-55-8057VXM High Risk: (Elderly (60+) or Population) (1 - Risk 60-74 years 1-dose series)RSV High Risk: (Elderly (60+) or Population) (1 - Risk 60-74 years 1-dose series)[facility]: 28-23-5151Qpvwzr Vaccines (1 of 2)Zoster Vaccines (1 of 2) [facility]: 07-09-0866PRwO/Tdap/Td Vaccines (1 - Tdap)DTaP/Tdap/Td Vaccines (1 - Tdap)[facility]: 95-86-0419Pjlznfdxc for malignant neoplasm of cervixMet[facility]Health Main Campus [facility]: 88-34-7930Tlqguovbu A Vaccines (1 of 2 - Risk 2-dose series) Hepatitis A Vaccines (1 of 2 - Risk 2-dose series)[facility]: 63-88-5720Aaylehwzbogk vaccinationPneumococcal Vaccine (1 of 2 - PCV)[facility]: 46-01-6658Hvnkvplzapgo Vaccine: 65+ Years (1 of 2 - PCV)Pneumococcal Vaccine: 65+ Years (1 of 2 - PCV)[facility]: 01-88-9342Uhlxl screening for proteinDiabetes: Urine Protein ScreeningMet[facility]Health Main Campus [facility]: 05-35-8328Tzrxoeqpv C screening Hepatitis C ScreeningMetroHealth Main Campus [facility]: 33-94-1151Cnzuyvxj foot examinationDiabetes: Foot ExamMet[facility]: 12-25-1734Ijuaqmqg screeningDiabetes: Retinopathy ScreeningMetroHealth Main Campus [facility]: 98-87-1193XWwG/Tdap/Td Vaccines (1 - Tdap)DTaP/Tdap/Td Vaccines (1 - Tdap)[facility]: 23-25-4347Incrkzbafjjt Vaccine: 65+ Years (1 - PCV)Pneumococcal Vaccine: 65+ Years (1 - PCV)[facility]: 16-45-4640Nsuezuehjvpw Vaccine: 65+ Years (1 of 2 - PCV) Pneumococcal Vaccine: 65+ Years (1 of 2 - PCV)[facility]: 1956 MMR Vaccines (1 of 1 - Standard series)MMR Vaccines (1 of 1 - Standard series) [facility]: 11-25-9829Hetqfnctcc A1c measurement Diabetes: Hemoglobin N7VKlqyukywfpMetroHealth Main Campus Medical Center: 85-79-1772Sgbhr panelLipid PanelMetroHealth Main Campus [facility] Center: 01[birth year]01-1956Medicare Annual Wellness VisitMedicare Annual Wellness Visit (AWV)[facility]: 07-63-6849Qeazbdlzq for malignant neoplasm of colonMetroHealth Main Campus [facility] Center: 73-72-3102Wauxtibpr for osteoporosisBone Density ScanMetroHealth Main Campus Medical Center: 26-03-3879Uohlmei stimulating hormone measurementTSH [facility]: 1955 Yearly Adult PhysicalYearly Adult PhysicalUnSt. Francis Hospital Comprehensive metabolic 2000 panel - Serum or PlasmaWood County HospitalCT for calcium scoring WO contrast and CTA W contrast IV Heart and coronary arteriesCT heart calcium scoring wo IV contrast Imaging Routine Decreased right ventricular systolic function LVH (left ventricular hypertrophy) Type 2 diabetes mellitus without complication, without long-term current use of insulin (CMS/HCC) Mixed hyperlipidemia (CMS/HCC) Screening for heart disease Ordered: 02/14/2024NONY HealthcareComment on above:Ordered: 02/14/2024 End: 04-73-4664VF for calcium scoring WO contrast and CTA W contrast IV Heart and coronary arteriesNOR[facility] Service Area Work Phone: Comment on above:Once for 1 Occurrences starting 08/22/2024 until 08/22/2024Patient EducationShoulder Pain (DC)[facility] Work Phone: Patient referralUniversity [facility]als [facility] Work Phone: [facility]ansthoracicH[facility] Immunizations Immunization DateImmunizationNotesCare YcruojlbHdcjxbbm07-96-3589Lhdfphp SARS-CoV-2 VaccinationSherri Stevie [employer]OR PRINT INSPECTOR Work Phone: NONY Rxrryegjtd66-72-6460Selcxh COVID-19 Vac Bivalent 30 MCG/0.3ML Intramuscular SuspensionMoveronique Solis MD Work Phone: [phone]-Zqbfp [facility] [address] DO Work Phone: [phone]-HraBOdlr COVID-19 Vacc 30 MCG/0.3ML Intramuscular SuspensionGopi Solis MD Work Phone: General Surgery Lnxtpnrx71-51-2285Lbenga-TdcZSert COVID-19 Vacc 30 MCG/0.3ML Intramuscular SuspensionGopi Solis MD Work Phone: General Surgery Jrvehokz77-53-3447Xdmqom-NgpOVitw COVID-19 Vacc 30 MCG/0.3ML Intramuscular SuspensionGeraurkeila Solis MD Work Phone: General Surgery Slkbkofq39-11-2911yfobjow toxoid, adsorbedCristina Hubbard COLOR PRINT INSPECTOR Work Phone: NOFO HealthcareNEGATED: Highlighted row has not occurred!56-97-4592effnpxvqk virus vaccine, unspecified formulationEmiliano Lagos [phone]-EnzcfHocking [facility] General Surgery [place] Payers DatePayer CategoryPayerPolicy [id number] [id number] [id number] [id number] or OtherMUTUAL [facility] [id number]-ofx96-71-3504Dvyvahp Health [id number]20-00-6574Ttmadeg Health QsveadhwqYPFOL01-27-3739Ltbueqw Health [id number] [id number] 2.840.1.410209.3.57[id number] 2.16840.1.785191.3.57[id number] 2.16840.1.060239.3.57[id number] 2.840.1.872778.3.57[id number] 2.16.840.1.832930.3.57[id number] 2.16.840.1.520114.3.57[id number] 2.16.840.1.068666.3.57[id number] 2.16.840.1.223849.3.57[id number] 2.16.840.1.152372.3.57[id number] 2.16.840.1.701932.3.57[id number] 2.16.840.1.247728.3.57[id number] 2.16.840.1.375167.3.57[id number] 2.16.840.1.124087.3.579.[id number] 2.16.840.1.075125.3.57[id number] 2.16.840.1.622954.3.57[id number] 2.16.840.1.422584.3.57[id number] 2.16.840.1.081552.3.57[id number] 2.16.840.1.633126.3.57[id number] 2.16.840.1.793482.3.579.2.2[id number] 2.840.1.374676.3.579.2.1259MedicareMedicare- Part A [id number] 2.16.840.1.906748.19UnknownHCAP/HFA/FAP [id number] rm0au957-t899-31kz-203p-[id number] 2.0.1.5[id number] 2.0.1.285446.3.579.2.531 [id number] 2..1.260456.3.579.2.531 Social History DateTypeDetailFacilityStart: 02-22-2023 End: 70-55-1847Gbqbo a smokerNever a xqaariIK-Cwhqivgkfdxxfz-Hycemvja Work Phone: comment on above:pop 3 daily;Start: 02-22-2023 End: 71-47-4012Fdz Assigned At [facility] CenterFeWilson Healthtart: 02-22-2023 End: 74-40-9161Mqbgjmn smoking status NHISNever smoked tobaccoUnSt. Francis HospitalStart: 09-22-2022 End: 30-82-5369Biouhzy use and exposureSmokeless tobacco non-userUnSt. Francis Hospital Work Phone: Start: 88-38-3974Pbd Assigned At BirthNot on file [facility] Work Phone: Start: 02-12-2023 End: 27-81-7395Uyfsssfz to SARS-CoV-2 (event)Not sureUnSt. Francis HospitalStart: 80-42-6324Voa [facility]igned At [facility] Hospitaltart: 12-50-5430Jclrrlk smoking statusNeverFishCentral Louisiana Surgical Hospitaltart: 10-06-2023 End: 40-17-8367Lgmrymuor beverage intakeLifetime non-drinker (finding)[facility] HealthcareStart: 10-67-7626Jkydvfr CommentCaffeine intake: noneNOMS Healthcare Start: 21-13-9609NauCepwyo (finding)[facility] County HospitalNEGATED: Highlighted row--BE-Qmxxpdzfuzpisq-Wtxer [place] [address] Work Phone: Medical Equipment Procedure CodeEquipment CodeEquipment Original TextEquipment IdentifierDatesPen [place] 32G X 4 MMStart: 33-90-0155[employer] Hwg 500 Fiber Case [id number]: 10-48-2762Sfkbgxa on above:Description: Converted from [facility] Acute. Please see archived information for full log information. Additional Information:per bill only jdr 03/28/2021 1456pm Functional Status ZvahQsdfvcckijYtviosBoljkqvk48-06-7683Brumygi Health Questionnaire 2 item (PHQ- 2) [Reported][facility] HospitalPwwljyhrrd73-44-6021Mbieiqq Health Questionnaire 2 item (PHQ- 2) [Reported][facility] HospitalVzldsbqgnv50-52-3909[place] Health Questionnaire 2 item (PHQ- 2) [Reported][facility] HospitalVozpzmarju10-30-9243Itdsxza Health Questionnaire 2 item (PHQ- 2) [Reported][facility] HospitalAfufhywgna39-18-4329Wfjipikehu StatusN/AFisherNorth Oaks [facility] HealthcareNEGATED: Highlighted rowFunctional performanceFunctional status health issues are not documented Disease PI-Oxovjktdzxwwnz-Frvxc [place] [address] Work Phone: Mental Status DateAssessmentResultFacilityNEGATED: Highlighted rowCognitive function [Interpretation]Cognitive status health issues are not documented Disease ZR-Gmetctpieusxya-Hravj [place] [address] Work Phone: Clinical Notes 03-03-2021 to 03-08-2025 Note Date & SupyWrcmAvtkyykw58-43-3347 History of Present illness Narrative* SAMANTHA Bañuelos - 03/08/2025 9:00 AM ESTAssociated Order(s): Ear Cerumen Removal Images from the original note were not included. Subjective Patient ID: Bette Villafana is a 69 y.o. female who presents for dizziness. Bette is present today for evaluation of dizziness. Admits it started Tuesday evening, feels like the room is spinning. She did get water in her left ear showering Tuesday evening. Then when she [place]iddown to go to sleep that night, she felt something in her left ear but ignored it and went to sleep. Then was dizzy all day and today. She has some Meclizine at home and she tried taking that and it did not help. Over the past 2 weeks, how often have you been bothered by any of the following problems? Little interest or pleasure in doing things: Not at all Feeling down, depressed, or hopeless: Not at all Patient Health Questionnaire-2 Score: 0 Current Outpatient Medications on File Prior to [...] by mouth Daily as needed for anxiety omeprazole (PriLOSEC) [address] capsule Take 20 mg by mouth in the morning and 20 mg in the evening.Take before meals. (Patient taking differently: Take 20 mg by mouth in the morning. Take before meals.) Respiratory Therapy Supplies (CareTouch CPAP & BIPAP Hose) misc 1 Dose at bedtime 1 each 1 Respiratory Therapy Supplies (Reusable Comfortseal Mask-MED) misc 1 Device at bedtime Mirage ActivaLT Mask Gdr-EWLV-FzjBch for CPAP 1 each 1 risperiDONE (RisperDAL) 2 MG tablet Take 2 mg by mouth in the morning. semaglutide (Ozempic, 0.25 or 0.5 MG/DOSE,) 2 MG/1.5ML solution pen-injector Inject 0.25 mg under the skin 1 (one) time per week. simvastatin (Zocor) 40 MG tablet Take 1 tablet (40 mg) by mouth at bedtime 100 tablet 3 venlafaxine XR (Effexor XR) [...] disease) Hyperlipidemia Hypertension Idiopathic subglottic tracheal stenosis 2009 Obesity Thyroid disease Past Surgical History: Procedure Laterality Date CHOLECYSTECTOMY 05/16/2023 EXCISION HIDRADENITIS OF INGUINAL / UMBILICAL AREA FEMINIZING AUGMENTATION MAMMOPLASTY Bilateral HERNIA REPAIR 1963 OTHER SURGICAL HISTORY 04/2016 Laryngoscopy, Bronchoscopy & Tracheal Dilation; 2010 and 03/19/2021 OTHER SURGICAL HISTORY 2008 laser/dilation;Disease:subglottic/tracheal stenosis; 2011 [place] BRNCHSC W/TRACHEAL/BRONCHIAL DILAT/CLSD RDCTJ FX 2007 endoscopy w/ tracheal dilitation Visit Vitals BP 124/72 Pulse 83 Resp 16 Ht 5' 5 Wt 264 lb 12.8 oz SpO2 95% BMI 44.07 kg/m Smoking Status Never BSA 2.35 m Review of Systems Constitutional: Negative for chills, fatigue and fever. Respiratory: Negative for cough, shortness of breath and wheezing. Cardiovascular: Negative for chest pain, palpitations and leg swelling. Gastrointestinal: Negative for abdominal pain, constipation, diarrhea, nausea and vomiting. Skin: Negative for rash. Neurological: Positive for dizziness. Objective Physical Exam Constitutional: General: She is not in acute distress. Appearance: She is well-developed. She is obese. HENT: Head: Normocephalic and atraumatic. Left Ear: There is impacted cerumen (Medium brown, dry). Ears: Comments: Mild-moderate cerumen on right - light colored. Eyes: General: No scleral icterus. Conjunctiva/sclera: Conjunctivae [...] Behavior: Behavior normal. Ear Cerumen Removal Date/Time: 03/08/2025 9:55 AM Performed by: SAMANTHA Bañuelos Authorized by: SAMANTHA Bañuelos Consent: Consent obtained: Verbal Consent given by: Patient Risks, benefits, and alternatives were discussed: yes Risks discussed: Bleeding, infection, pain, TM perforation, incomplete removal and dizziness Alternatives discussed: No treatment, alternative treatment and referral Procedure details: Location: L ear and R ear Procedure type: curette Procedure type comment: Irrigation with warm water and hydrogen peroxide Procedure outcomes: cerumen removed Post-procedure details: Inspection: Ear canal clear Hearing quality: Improved Procedure completion: Tolerated Comments: Continued to have dizziness, but no worsening during or after procedure Assessment/Plan Diagnoses and all orders for this visit: Bilateral impacted cerumen - Ear Cerumen Removal Bilateral ears irrigated with excellent results. She did notice improvement in hearing following the irrigation. No worsening of dizziness during or after procedure. After procedure, bilateral TM's were visualized. No erythema. Left TM with two notable clear bubbles along inferior border. Vertigo - meclizine (ANTIVERT) 50 MG tablet; Take 1 tablet (50 mg) by mouth in the morning and 1 tablet (50mg) before bedtime. Do all this for 10 days. * May cause drowsiness *. Will increase pt's dosage temporarily for the Meclizine. Reminded pt that this medication can causedrowsiness. Can consider referral to PT if symptoms do not improve with today's treatments. Dizziness Discussed potential causes. Stay hydrated. Acute dysfunction of left eustachian tube - triamcinolone (Nasacort Allergy 24HR) 55 MCG/ACT nasal inhaler; Administer 2 sprays into each nostril Daily for 7 days Start above as prescribed. Reviewed instructions for use. Advised resolving the ETD may help alleviate the dizziness over time, as may removing the cerumen today that was likely pressing against her TM. Follow up with SAMANTHA Kohler in 5 months (on 08/08/2025 Diabetes). documented in this encounterSaint [facility]'s [facility] HospitalOxljwtsjxa39-14-2499 History of Present illness Narrative* SAMANTHA Bañuelos [...] Do you have a medical power of attorney lawyer?: Yes Current Outpatient Medications on File Prior [...] 1 Device at bedtime Mirage ActivaLT Mask Ees-PSNV-ZxlEbp for CPAP 1 each 1 risperiDONE (RisperDAL) [...] disease) Hyperlipidemia Hypertension Idiopathic subglottic tracheal stenosis 2009 Obesity Thyroid disease Past Surgical History: Procedure Laterality Date CHOLECYSTECTOMY 05/16/2023 EXCISION HIDRADENITIS OF INGUINAL / UMBILICAL AREA FEMINIZING AUGMENTATION MAMMOPLASTY Bilateral HERNIA REPAIR 1963 OTHER SURGICAL HISTORY 04/2016 Laryngoscopy, Bronchoscopy & Tracheal Dilation; 2010 and 03/19/2021 OTHER SURGICAL HISTORY 2008 laser/dilation;Disease:subglottic/tracheal stenosis; 2011 [place] BRNCHSC W/TRACHEAL/BRONCHIAL DILAT/CLSD RDCTJ FX 2007 endoscopy [...] 0.55 - 1.02 mg/dL Final TBH EGFR-AF SAUDI ARABIAN 02/02/2025 >60 >=60 mL/min/1.73m 2 Final TBH EGFR-NON AF SAUDI ARABIAN 02/02/2025 >60 >=60 mL/min/1.73m 2 Final BUN [...] exertion The patient is seeing a medical front desk coordinator for this condition, treatment is deferred to that specialist. Correspondence from that specialist and any available testing were reviewed during today's visit. 6. Tracheal stenosis The patient is seeing a medical front desk coordinator for this condition, treatment is deferred to that specialist. Correspondence from that specialist and any available testing were reviewed during today's visit. 7. Abnormal electrocardiogram The patient is seeing a medical front desk coordinator for this condition, treatment is deferred to that specialist. Correspondence from that specialist and any available testing were reviewed during today's visit. 8. Decreased right ventricular systolic function The patient is seeing a medical front desk coordinator for this condition, treatment is deferred to that specialist. Correspondence from that specialist and any available testing were reviewed during today's visit. 9. LVH (left ventricular hypertrophy) The patient is seeing a medical front desk coordinator for this condition, treatment is deferred to that specialist. Correspondence from that specialist and any available testing were reviewed during today's visit. 10. Mitral valve insufficiency and aortic valve stenosis The patient is seeing a medical front desk coordinator for this condition, treatment is deferred to that specialist. Correspondence from that specialist and any available testing were reviewed during today's visit. 11. Adrenal abnormality (HCC) The patient is seeing a medical front desk coordinator for this condition, treatment is deferred to [...] (HCC) The patient is seeing a medical front desk coordinator for this condition, treatment is deferred to that specialist. Correspondence from that specialist and any available testing were reviewed during today's visit. 15. Hepatomegaly The patient is seeing a medical front desk coordinator for this condition, treatment is deferred to [...] hypothyroidism The patient is seeing a medical front desk coordinator for this condition, treatment is deferred to that specialist. Correspondence from that specialist and any available testing were reviewed during today's visit. 20. Type 2 diabetes mellitus with other specified complication, without long- term current use of insulin (HCC) Advised pt that her recent HgbA1c has increased to 6.4, but does remain controlled. She is currently on Ozempic. Will recheck in 3-6 months. 21. Morbid obesity with BMI of 40.0-44.9, adult ([facility]-H[facility]) Patient has lost 4 pounds since her last appointment. Encouraged portion control, decrease simple sugars and carbohydrates, gradually increase activity level. Aim for continued, gradual steady weightloss. 22. Thyrotoxicosis without thyroid storm, unspecified thyrotoxicosis type The patient is seeing a medical front desk coordinator for this condition, treatment is deferred to [...] carcinoma The patient is seeing a medical front desk coordinator for this condition, treatment is deferred to [...] 6 months (around 08/08/2025) for Diabetes. Zulma NORTON, BRENDON documented in this encounterSaint John's [facility] Community HospitalRwveednkot16-29-3124 Evaluation note* Diagnosis Onset Date Resolution Status [...] 1:00pmFatty pancreasacuteSept2024 1:00pmHyperlipidemiaacuteSept2024 1:00pmHypothyroidacute January 02, 2025 1:00pmObesityacuteSeptember 2024 1:00pmOSA (obstructive sleep apnea)acuteSept2024 1:00pmVitamin D deficiencyacuteSept2024 1:00pm [facility] Work Phone: 1(486) 174-226508-14-2025 Evaluation note* Diagnosis Onset Date Resolution Status [...] 1:00pmOSA (obstructive sleep apnea)acuteSept2024 1:00pmVitamin D deficiencyacuteSept2024 1:00pmAnxiety and depressionacuteNov2024 8:38amBMI 45.0- 49.9, adultacuteNov2024 8:38amDependent edemaacuteNov2024 8:38amDiabetes type 2, uncontrolledacuteMarch 12, 2025 8:38amDOE (dyspnea on exertion)acuteNov2024 8:38amExercise intoleranceacute March 12, 2025 8:38amHyperlipidemiaacuteNov2024 8:38am HypothyroidacuteNov2024 8:38amOSA (obstructive sleep apnea)acute March 12, 2025 8:38am [facility] Work Phone: 1(482) 757-704507-09-2025 Evaluation note* Diagnosis Onset Date Resolution Status [...] 2024 9:13amBMI 45.0-49.9, adultacuteAugust 2024 9:13amDependent edemaacute [place] 2024 9:13amDiabetes type 2, uncontrolledacuteAugust 2024 9:13amDOE (dyspnea on exertion)acuteAugust 2024 9:13amExercise intolerance acuteAugust 2024 9:13amHyperlipidemiaacuteAugust 2024 9:13am HypothyroidacuteAugust 2024 9:13amOSA (obstructive sleep apnea)acuteAugust 2024 9:13am [facility] Work Phone: 1(186) 869-692707-09-2025 Evaluation note* Diagnosis Onset Date Resolution Status [...] 2024 9:13amBMI 45.0-49.9, adultacuteAugust 2024 9:13amDependent edemaacute [place] 2024 9:13amDiabetes type 2, uncontrolledacuteAugust 2024 9:13amDOE (dyspnea on exertion)acuteAugust 2024 9:13amExercise intolerance acuteAugust 2024 9:13amHyperlipidemiaacuteAugust 2024 9:13am HypothyroidacuteAugust 2024 9:13amOSA (obstructive sleep apnea)acuteAugust 2024 9:13amAbnormal weight gainacuteSeptember 2024 1:00pmAcid reflux acuteSept2024 1:00pmAdrenal abnormalityacuteSept2024 1:00pmAnxiety and depressionacuteSeptember 2024 1:00pmBipolar disorderacute January 02, 2025 1:00pmBMI 45.0-49.9, adultacuteSept2024 1:00pm Diabetes type 2, uncontrolledacuteSept2024 1:00pmFatigueacute January 02, 2025 1:00pmFatty pancreasacuteSeptember 2024 1:00pm HyperlipidemiaacuteSept2024 1:00pmHypothyroidacuteSept2024 1:00pmObesityacuteSept2024 1:00pmOSA (obstructive sleep apnea)acute January 02, 2025 1:00pmVitamin D deficiencyacuteSe2024 1:00pm [facility] Work Phone: 1(794) 889-627906-10-2025 Telephone encounter Note* Telephone Encounter - Christina Mercer MA - 10/09/2024 10:24 AM EDT Faxed order and paperwork [facility] [id number] Miscellaneous Notes* Telephone Encounter - Christina Mercer MA - 10/09/2024 10:24 AM EDT Faxed order and paperwork * Telephone Encounter - Justine Bell - 10/09/2024 9:54 AM EDT Patient is due for a new rx for sleep machine hose/mask to [employer] fax number is [phone] documented in this encounterSaint John's [facility] Community HospitalJzxdihbrzq02-19-8846 Telephone encounter Note* Telephone Encounter - Justine Bell - 10/09/2024 9:54 AM EDT Patient is due for a new rx for sleep machine hose/mask to [employer] fax number is [phone] [facility] HospitalBncnvpboif04-30-4014 Evaluation note* Diagnosis Onset Date Resolution Status Admit Date Abnormal weight gain acuteMay 2024 2:00pmAcid refluxacuteMay 2024 2:00pmAdrenal abnormalityacuteMay 2024 2:00pmAnxiety and depressionacuteMay 2024 2:00pmBipolar disorderacuteMay 2024 2:00pmBMI 45.0-49.9, adultacuteMay 2024 2:00pmDiabetes type 2, uncontrolledacutey 2024 2:00pmFatigue acuteMay 2024 2:00pmFatty pancreasacuteMay 2024 2:00pmHyperlipidemia acuteMay 2024 2:00pmHypothyroidacuteMay 2024 2:00pmObesityacuteMay 2024 2:00pmOSA (obstructive sleep apnea)acuteMay 2024 2:00pmVitamin D deficiencyacutey 2024 2:00pmAbnormal weight gainacuteJuly 2024 1:36pmAcid refluxacuteJuly 2024 1:36pmAdrenal abnormalityacuteJuly 2024 1:36pmAnxiety and depressionacuteJuly 2024 1:36pmBipolar disorderacute Jyoti 2024 1:36pmBMI 45.0-49.9, adultacuteJuly 2024 1:36pmDiabetes type 2, uncontrolledacuteJuly 2024 1:36pmFatigueacuteJuly 2024 1:36pmFatty pancreasacuteJuly 2024 1:36pmHyperlipidemiaacuteJuly 2024 1:36pm HypothyroidacuteJuly 2024 1:36pmObesityacuteJuly 2024 1:36pmOSA (obstructive sleep apnea)acuteJuly 2024 1:36pmVitamin D deficiencyacuteJuly 2024 1:36pm [facility] Work Phone: 1(595) 653-347005-21-2025 Evaluation note* Diagnosis Onset Date Resolution Status Admit Date Abnormal weight gain acuteSeptember 19, 2024 2:00pmAcid refluxacuteMay 2024 2:00pmAdrenal abnormalityacuteMay 2024 2:00pmAnxiety and depressionacuteSeptember 19, 2024 2:00pmBipolar disorderacuteMay 2024 2:00pmBMI 45.0-49.9, adultacuteMay 2024 2:00pmDiabetes type 2, uncontrolledacutey 2024 2:00pmFatigue acuteMay 2024 2:00pmFatty pancreasacuteMay 2024 2:00pmHyperlipidemia acuteMay 2024 2:00pmHypothyroidacuteMay 2024 2:00pmObesityacuteMay 2024 2:00pmOSA (obstructive sleep apnea)acuteMay 2024 2:00pmVitamin D deficiencyacuteMay 2024 2:00pmAbnormal weight gainacuteJuly 2024 1:36pmAcid refluxacuteJuly 2024 1:36pmAdrenal abnormalityacuteJuly 2024 1:36pmAnxiety and depressionacuteJuly 2024 1:36pmBipolar disorderacute Jyoti 2024 1:36pmBMI 45.0-49.9, adultacuteJuly 2024 1:36pmDiabetes type [...] 2024 9:13amOSA (obstructive sleep apnea)acuteAugust 2024 9:13am [facility] Work Phone: 1(301) 340-314605-20-2025 History of Present illness Narrative* Cristina Hubbard [...] mask and supplies , pt went to [facility] sleep study.Wearing every night. Mask is 6 months old and pt is in need of a new mask. Pt is using a Mirage Activa LT Mask Bsv-[id number]-HgtPsd. Feels well rested in the morning. No [...] OTHER SURGICAL HISTORY 2008 laser/dilation;Disease:subglottic/tracheal stenosis; 2011 [place] [facility] W/TRACHEAL/BRONCHIAL DILAT/CLSD RDCTJ FX 2008 endoscopy w/ tracheal dilitation Visit Vitals Smoking [...] Device at bedtime Mirage Activa LT Mask Mua-LOVK-IhuJyw for CPAP Pt needs supplies. Her CPAP is still beneficial for her. The company that she was using told her that she needed to be seen in the office. No follow-ups on file. documented in this encounterSaint [facility]'s [facility] Community HospitalQiikyodzgq94-58-0848 History of Present illness Narrative* SAMANTHA Bañuelos [...] OTHER SURGICAL HISTORY 2008 laser/dilation;Disease:subglottic/tracheal stenosis; 2011 [place] [facility] W/TRACHEAL/BRONCHIAL DILAT/CLSD RDCTJ FX 2007 endoscopy [...] acute otitis externa of right ear - ihneiebt-tbdmlrzfa-amunlopxzhqmac (Cortisporin) 3.5-69198-2 otic suspension; Administer 3 drops into the [...] Medicare Wellness Visit. documented in this encounterSaint John's Aurora Community [id number] Evaluation + Plan note* Assessment & Plan Note - Dominic Saldana MD - 07/19/2024 9:40 AM EDTAssociated Problem(s): Hypothyroidism Orders: Thyroid Stimulating Hormone; Future Thyroxine, Free; Future IGF-I; Future [facility] Work Phone: 1([phone]) 817-114703-20-2025 Evaluation + Plan note* Assessment & Plan Note - Dominic Saldana MD - 07/19/2024 9:40 AM EDTAssociated Problem(s): Diabetes (Multi) [facility] Work Phone: 1(931) 855-648903-20-2025 History of Present illness Narrative* Dominic Saldana [...] 04/10/2024 No results found for: ALBUR , [id number] Health Maintenance: Assessment/Plan Bette Villafana is a [...] current use of insulin [facility] Work Phone: 1(714) 836-436203-20-2025 Instructions* Patient Instructions* Dominic Saldana MD - [...] RTC in 1 year [facility] Work Phone: 1(264) 666-282203-20-2025 Miscellaneous Notes* Assessment & Plan Note - Dominic Saldana MD - 07/19/2024 9:40 AM EDTAssociated Problem(s): Hypothyroidism Orders: Thyroid Stimulating Hormone; Future Thyroxine, Free; Future IGF-I; Future * Assessment & Plan Note - Dominic Saldana MD - 07/19/2024 9:40 AM EDTAssociated Problem(s): Diabetes (Multi) documented in this [facility] Work Phone: 1(559) 598-677212-10-2024 Evaluation + Plan note* Assessment & Plan Note - Dominic Saldana MD - 04/10/2024 8:20 AM ESTAssociated Problem(s): Hypothyroidism Orders: Thyroid Stimulating Hormone; Future Thyroid Peroxidase (TPO) Antibody; Future Thyroxine, Free; Future [facility] Work Phone: 1([phone]) 212-817012-10-2024 Evaluation + Plan note* Assessment & Plan Note - Dominic Saldana MD - 04/10/2024 8:20 AM ESTAssociated Problem(s): Diabetes (Multi) Orders: Hemoglobin A1C; Future [facility] Work Phone: 1(261) 487-506412-10-2024 History of Present illness Narrative* Dominic Saldana [...] times per day. 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 documented in this [facility] Work Phone: 1([phone]) 807-598912-10-2024 Instructions* Patient Instructions* Dominic Saldana MD - [...] for at least 7hrs documented [facility] Work Phone: 1([phone]) 698-303412-10-2024 Miscellaneous Notes* Assessment & Plan Note - Dominic Saldana MD - 04/10/2024 8:20 AM ESTAssociated Problem(s): Hypothyroidism Orders: Thyroid Stimulating Hormone; Future Thyroid Peroxidase (TPO) Antibody; Future Thyroxine, Free; Future * Assessment & Plan Note - Dominic Saldana MD - 04/10/2024 8:20 AM ESTAssociated Problem(s): Diabetes (Multi) Orders: Hemoglobin A1C; Future [facility] Work Phone: 1(363) 451-482511-04-2024 Telephone encounter Note* Telephone Encounter - Justine Bell - 03/05/2024 3:25 PM EST [facility] office called and stated that they tried to contact the patient to schedule appt for the referral that was sent to them but tired to two weeks to contact and is unable to get ahold of them. [facility] HospitalXoncogiuow48-22-5149 Miscellaneous Notes* Telephone Encounter - Justine Bell - 03/05/2024 3:25 PM EST [facility] office called and stated that they tried to contact the patient to schedule appt for the referral that was sent to them but tired to two weeks to contact and is unable to get ahold of them. documented in this encounterSaint John's Aurora Community [id number] History of Present illness Narrative* Ronnie Murphy [...] evidence of any inflammation. documented in this [facility] Work Phone: 1([phone]) 396-455310-15-2024 History of Present illness Narrative* Shantel Bahena LPN - 02/14/2024 9:00 AM EDT [facility] Med Refill Additional comments: Metformin, levothyroxine,simvastain--[facility] [...] Do you have a medical power of attorney lawyer?: No Objective : BP 128/66 Pulse 81 [...] complication, without long-term current use of insulin ([facility]) We discussed today, the importance of [...] 16. Bipolar 1 disorder, depressed, partial remission ([facility]) This is a chronic medical condition that is stable since last assessment. No changes in treatment are suggested at this time. 17. Mixed hyperlipidemia ([facility]) This is a chronic medical condition that is stable since last assessment. No changes in treatment are suggested at this time. - Lipid panel; Future - Lipid panel - CT heart calcium scoring wo IV contrast 18. 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 [employer] Other 10-24-2023 History of Present illness Narrative* [...] evidence of any inflammation. [facility] Work Phone: [phone]) 690-154610-17-2023 Evaluation note* Encounter Date Diagnosis Assessment Notes [...] other veggie/fruit w/ dinner; PARTIALLY MET, ON-GOING [employer] [facility] 10-03-2023 Evaluation note* Encounter Date Diagnosis Assessment Notes Treatment Notes Treatment Clinical Notes Jan, Obesity (ICD-10 - E66.9) first sent wrong diagnosis code, then sent to non preferred pharmacy. [facility] Jan,MI 40.0-44.9, adult (ICD-10 - Z68.41) [...] was counseling done by myself, Moira NICHOLS. [employer] Other 08-23-2023 Evaluation note* Encounter Date Diagnosis [...] beans, salad or other veggie/fruit w/ dinner [employer] Other 06-20-2023 Evaluation note* Encounter Date Diagnosis [...] patient set personal goal using given handout. [employer] Other 06-20-2023 Evaluation note* Encounter Date Diagnosis Assessment Notes Treatment Notes Treatment Clinical Notes Sep, Obesity (ICD-10 - E66.9) first sent wrong diagnosis code, then sent to non preferred pharmacy. Sent to [facility] preferred. Sep,MI 40.0-44.9, adult (ICD-10 - Z68.41) [...] was counseling done by myself, Moira NICHOLS. [employer] Other 03-28-2023 Evaluation note* Encounter Date Diagnosis Assessment Notes Treatment Notes Treatment Clinical Notes Jun, Obesity (ICD-10 - E66.9) first sent wrong diagnosis code, then sent to non preferred pharmacy. [facility] Jun,MI 40.0-44.9, adult (ICD-10 - Z68.41) [...] was counseling done by myself, Moira NICHOLS. [employer] Other 02-14-2023 Evaluation note* Encounter Date Diagnosis [...] patient set personal goal using given handout. [employer] Other 01-31-2023 Evaluation note* Encounter Date Diagnosis Assessment Notes Treatment Notes Treatment Clinical Notes May, Obesity (ICD-10 - E66.9) first sent wrong diagnosis code, then sent to non preferred pharmacy. Sent to [facility] preferred. May,MI 40.0-44.9, adult (ICD-10 - Z68.41) [...] was counseling done by myself, Moira NICHOLS. [employer] Other 01-31-2023 History of Present illness Narrative* [...] * 5. Follow-up after testing is done [facility] [employer] Work Phone: 1(963) 311-157111-02-2021 History of Present illness NarrativeThis patient presented [...] and is very pleased with the results. [facility]jkdcrak-Ollvnbcw Work Phone: 1([phone]) 144-601911-02-2021 History of Present illness NarrativeThis patient presented [...] today for follow-up. Her breathing has remained stable.XN-Tsouxabqoeurvl-Dicmhdgw Work Phone: chief complaint Narrative - ReportedAMY ZION is being seen for a consultation for [facility] [address] DO Work Phone: Evaluation + Plan note No data available for this section [facility] CenterEvaluation [facility] Plan note Future Appointments Appointment Date:06/14/2023 02:20:00 PM Scheduled Provider:Mayito YANG MD Location:[facility] Appointment Type:[address] General Surgery [place] Evaluation noteNo InformationNossm rehab [employer] Other Evaluation note* Diagnosis Tracheal stenosis- Primary Other diseases of trachea and bronchus documented in this encounter [facility] Work Phone: Evaluation noteNo assessment information available [facility] Work Phone: Evaluation note* Diagnosis Onset Date Resolution Status Abnormal CT of the abdomen acuteAcid refluxacuteAdrenal abnormalityacuteAnxiety and depressionacuteBipolar disorderacuteBMI 40.0-44.9, adultacuteDiabetes type 2, uncontrolledacuteFatigue acuteFatty pancreasacuteHyperlipidemiaacuteHypertriglyceridemiaacuteHypothyroid acuteObesityacuteOSA (obstructive sleep apnea)acuteSnoresacuteVitamin D deficiencyacute [facility] Work Phone: Evaluation note* Diagnosis Onset Date Resolution Status Abnormal CT of the abdomen acuteAcid refluxacuteAdrenal abnormalityacuteAnxiety and depressionacuteBipolar disorderacuteBMI 40.0-44.9, adultacuteDiabetes type 2, uncontrolledacuteFatigue acuteFatty pancreasacuteHyperlipidemiaacuteHypertriglyceridemiaacuteHypothyroid acuteObesityacuteOSA (obstructive sleep apnea)acuteSnoresacuteVitamin D deficiencyacuteAllergiesacuteSore throatnoneactive [facility] Work Phone: Evaluation note* Diagnosis Onset Date Resolution Status Abnormal CT of the abdomen acuteAcid refluxacuteAdrenal abnormalityacuteAnxiety and depressionacuteBipolar disorderacuteBMI 40.0-44.9, adultacuteDiabetes type 2, uncontrolledacuteFatigue acuteFatty pancreasacuteHyperlipidemiaacuteHypertriglyceridemiaacuteHypothyroid acuteObesityacuteOSA (obstructive sleep apnea)acuteSnoresacuteVitamin D deficiencyacuteAllergiesacuteSore throatnoneactiveAbnormal CT of the abdomen acuteAcid refluxacuteAdrenal abnormalityacuteAnxiety and depressionacuteBipolar disorderacuteBMI 40.0-44.9, adultacuteDiabetes type 2, uncontrolledacuteFatigue acuteFatty pancreasacuteHyperlipidemiaacuteHypertriglyceridemiaacuteHypothyroid acuteObesityacuteOSA (obstructive sleep apnea)acuteSnoresacuteVitamin D deficiencyacute [facility] Work Phone: Evaluation note* Diagnosis Onset Date Resolution Status Allergies acuteSore throatnoneactiveAbnormal CT of the abdomenacuteAcid refluxacuteAdrenal abnormalityacuteAnxiety and depressionacuteBipolar disorderacuteBMI 40.0-44.9, adultacuteDiabetes type 2, uncontrolledacuteFatigueacuteFatty pancreasacute HyperlipidemiaacuteHypertriglyceridemiaacuteHypothyroidacuteObesityacuteOSA (obstructive sleep apnea)acuteSnoresacuteVitamin D deficiencyacute [facility] Work Phone: Evaluation note* Diagnosis Medicare [...] specified complication (CMS/HCC) documented in this encounter [facility] HealthcareEvaluation note* Diagnosis Tracheal stenosis- Primary Other diseases of trachea and bronchus Gastroesophageal reflux disease without esophagitis Esophageal reflux documented in this encounter [facility] Work Phone: Evaluation note* Diagnosis Adrenal nodule- Primary Benign neoplasm of adrenal gland Hypothyroidism, unspecified type Type 2 diabetes mellitus without complication, without long-term current use of insulin (Multi) documented in this encounter [facility] Work Phone: Evaluation note* Diagnosis Adrenal [...] use of insulin documented in this encounter [facility] Work Phone: Evaluation note* Diagnosis Adrenal [...] ill-defined heart diseases documented in this encounter [facility] Work Phone: Evaluation note* Diagnosis Right ear impacted cerumen- Primary Impacted cerumen Dizziness Dizziness and giddiness Other infective acute otitis externa of right ear documented in this encounter [facility] HealthcareEvaluation note* Diagnosis BiPAP (biphasic positive airway pressure) dependence- Primary Dependence on other enabling machine documented in this encounter [facility] HealthcareEvaluation note* Diagnosis Medicare annual wellness [...] Morbid obesity with BMI of 40.0-44.9, adult ([facility]) Thyrotoxicosis without thyroid storm, unspecified thyrotoxicosis type Vitamin D deficiency Allergic rhinitis due to pollen, unspecified seasonality Anxiety and depression Screening for malignant neoplasm of colon Bipolar 1 disorder, depressed, partial remission ([facility]) Estrogen deficiency Other ovarian failure History of basal cell carcinoma Personal history of other malignant neoplasm of skin Lipoprotein deficiency disorder Lipoprotein deficiencies Mixed hyperlipidemia documented in this encounter [facility] HealthcareEvaluation note* Diagnosis Bilateral impacted cerumen- Primary Impacted cerumen Vertigo Dizziness and giddiness Dizziness Dizziness and giddiness Acute dysfunction of left eustachian tube documented in this encounter [facility] HealthcareHistory general Narrative - Reported* Type Description Date Medical History thyroid disease Medical HistoryCholesterolMedical HistorydepressionMedical Historyacid reflux Medical HistorybipolarSurgical Historybreast reductionSurgical Historythroat surgerySurgical HistoryherniaHospitalization Historysee surgical hx [employer] Other Hisbfpv general Narrative - Reported* Type Description Date Medical History thyroid disease Medical HistoryCholesterolMedical HistorydepressionMedical Historyacid reflux Medical HistorybipolarSurgical Historybreast reductionSurgical Historythroat surgerySurgical HistoryherniaHospitalization Historysee surgical hx [facility] [employer] Other Hisooki general Narrative - Reported* Type Description Date Medical History thyroid disease Medical HistoryCholesterolMedical HistorydepressionMedical Historyacid reflux Medical HistorybipolarMedical Historygall bladder diseaseSurgical Historybreast reductionSurgical Historythroat surgerySurgical HistoryherniaSurgical History [id number] Historysee surgical hxHospitalization [facility] ER07/2022 [facility] [employer] Other History of Present illness NarrativeThis patient [...] time it feels like it is somewhat apgeuhijGM-Gzpxpgzvvjnnqx-Qryldcce Work Phone: Hospital Discharge instructions No data available for this section [facility] Dis[facility] instructions Additional Instructions Follow-up with your primary care doctor Return to ED if develop worsening symptoms or [facility]Del[facility] Work Phone: Progress note No data available for this section [facility] [place] Reason for referral (narrative)No reason for referral information availableSt. [facility] Work Phone: Reason for visit Narrative* Imaging (Routine) - AuthorizedSpecialtyDiagnoses / ProceduresReferred By ContactReferred To ContactRadiology Diagnoses Encounter for screening for cardiovascular disorders Mixed hyperlipidemia Type 2 diabetes mellitus without complications Cardiomegaly Other ill-defined heart diseases Procedures CT cardiac scoring wo IV contrast [place], Cristina M, 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 ARC-LAP CUTTER TRUER OPERATOR [address] [facility] [address] [place] [address] Phone: tel: fax: Referral IDStatusReasonStart DateExpiration DateVisits RequestedVisits [id number] Perform Procedure [facility] Work Phone: Family History Mother Name [...] Time Advance Directives No October 04 10:01am Advance Directive Response Recorded Date/ Time Advance Directives No October 04 9:01am Reason for Referral Reason CT abdomen and [...] 3 Fatty pancreas (K86. 89) Referral Organization [facility] Referring Provider First Name Lilliam Referring Provider Last Name Guerita Referring Provider Specialty Nurse Pract kavitaionechani Referred Organization Unknown Facility Referred Provider Specialty [...] Vitamin D deficiency January 02, 2025 1:00pm Chief Complaint Admit Date October 09, 2024 [...] section and content) DATE CREATED AUTHOR 06/02/2022 [facility] DATE CREATED AUTHOR AUTHOR'S ORGANIZ ATION 06/02/2022 [employer] DATE CREATED AUTHOR AUTHOR'S ORGANIZ ATION 09/09/2022 [facility] DATE CREATED AUTHOR AUTHOR'S ORGANIZ ATION 06/10/2023 [facility] DATE CREATED AUTHOR AUTHOR'S ORGANIZ ATION 08/28/2024 [facility] DATE CREATED AUTHOR AUTHOR'S ORGANIZ ATION 02/03/2025 [facility] DATE CREATED AUTHOR AUTHOR'S ORGANIZ ATION 03/01/2025 [facility] DATE CREATED AUTHOR AUTHOR'S ORGANIZ ATION 03/10/2025 [facility] EPIC REASON FOR VISIT (unrecogniz ed section and content) ReasonCommentsFollow-upReasonCommentsMedicare Annual Wellness Visit Subsequent Med RefillMetformin, levothyroxine,simvastain--[facility]vs bellReasonCommentsDiabetes ReasonCommentsDiabetesReasonCommentsSleep ApneaNeeding notes for apnea supplies ReasonOnset DateCommentsMed Hvbfur1210/09/2024ReasonCommentsMedicare Annual Wellness Visit SubsequentMed RefillSimvastatin Care Teams [...] Start: December 13, 2024 End: December 13, 2024Caryl Meléndez MDAttending ProviderActiveStart: December 13, 2024 End: [...] September 19, 2024 End: September 19, 2024Deelli Dexter , APRNAttending ProviderActiveStart: September 19, 2024 End: September 19, 2024 Team Status: Active Member Role Status Dates Bello Hilton II MD Primary Care Provider Active Start: July 03, 2024 Ben Wasserman MDAttending ProviderActiveStart: July 03, 2024 Team Status: Inactive Member Role Status Melvin Hilton II MD Primary Care Provider Active Start: July 04, 2024 End: July 04, 2024Deelli Dexter , APRNAttending ProviderActiveStart: July 04, 2024 End: [...] Active Start: August 09, 2023 End: August 08ebjose g Dexter , APRNAttending ProviderActiveStart: August 09, 2023 End: August 09, 2023 Team Status: Active Member Role Status Dates Lilliam Dexter , 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 ARC Attending Provider Active Start: March 15, 2023 Bello Hilton II [facility] ProviderActiveStart: March 15, 2023 Team Status: Inactive [...] Start: June 07, 2023 Bello Hilton II [facility] ProviderActiveStart: June 07, 2023 Team Status: Active Member Role Status Dates Bello Hilton II MD Primary Care Provider Active Start: June 14, 2023 Ben Wasserman MDAttending ProviderActiveStart: June 14, 2023 Team Status: Inactive Member Role Status Dates Bello Hilton II MD Primary Care Provider Active Start: October 05, 2023 End: October 04jacboo Jones , APRNAttending ProviderActiveStart: October 05, 2023 [...] 05, 2023 End: October 04jacobo Jones - [facility] , APRNAttending ProviderActiveStart: October 05, 2023 End: October 05, 2023 Team Status: Active Member Role Status Dates Bello Hilton II MD Primary Care Provider Active Start: October 25, 2023 Ben Wasserman MDAttending ProviderActiveStart: October 25, 2023 Team Status: Inactive Member Role Status Dates Bello Hilton II MD Primary Care Provider Active Start: December 20, 2023 End: December 19juanis Dexter , APRNAttenreina ProviderActiveStart: December 20, 2023 End: December 20, 2023Team MemberRelationshipSpecialtyStart DateEnd Date Bello Hilton MD [address] [place] [address] PCP - GeneralInternal Medicine09/21/22am MemberRelationshipSpecialtyStart Date End Date Bello Hilton MD [address] [place] [address] PCP - GeneralInternal Medicine09/21/22am MemberRelationshipSpecialtyStart Date End Date Bello Hilton MD [address] [place] [address] PCP - GeneralInternal Myigrivt34/22/24Team MemberRelationshipSpecialtyStart Date End Date Bello Hilton MD [address] [place] [address] PCP - GeneralInternal Medicine09/21/22am MemberRelationshipSpecialtyStart Date End Date Bello Hilton MD [address] [place] [address] PCP - GeneralInternal Medicine09/21/22am MemberRelationshipSpecialtyStart Date End Date Bello Hilton MD [address] [place] [address] PCP - GeneralInternal Lsavvfre99/22/24Team MemberRelationshipSpecialtyStart Date End Date Bello Hilton MD [address] [place] [address] PCP - GeneralInternal Cxzheonk99/22/24Team MemberRelationshipSpecialtyStart Date End Date Bello Hilton MD [address] [place] [address] PCP - [facility]02/21/24Te MemberRelationshipSpecialtyStart Date End Date Bello Hilton MD [address] [place] [address] PCP - [facility]09/21/22 Cristina Hubbard, COLOR PRINT INSPECTOR [address] [place] [address] [facility]06/08/24Te MemberRelationshipSpecialtyStart DateEnd Date Bello Hilton MD [address] [place] [address] [facility] - [facility]09/21/22 Cristina Hubbard, COLOR PRINT INSPECTOR [address] [place] [address] [facility]06/08/24 MemberRelationshipSpecialtyStart DateEnd Date Bello Hilton MD [address] [place] [address] [facility] - [facility]09/21/22 Cristina Hubbard, COLOR PRINT INSPECTOR [address] [place] [address] [facility]06/08/24Te MemberRelationshipSpecialtyStart DateEnd Date Bello Hilton MD [address] [place] [address] PCP - GeneralInternal Medicine09/21/22 Cristina Hubbard, COLOR PRINT INSPECTOR [address] [place] [address] PCP - [facility]06/08/24Team MemberRelationshipSpecialtyStart DateEnd Date Bello Hilton MD [address] [place] [address] [facility] - [facility]09/21/22 Cristina Hubbard, COLOR PRINT INSPECTOR [address] [place] [address] PCP - [place] [facility]06/08/24 Team Status: Active Member Role Status Dates Bello Hilton II MD Primary Care Provider Active Start: December 13, 2024 Ben Edgar ProviderActiveStart: December 13, 2024 Team Status: Inactive Member Role Status Dates Bello Hilton II MD Primary Care Provider Active Start: January 02, 2025 End: January 02, 2025Martha Pineda ProviderActiveStart: January 02, 2025 End: January 02, 2025Team MemberRelationshipSpecialtyStart DateEnd Date Bello Hilton MD [address] [place] [address] [facility] - [facility]/21/22 Cristina Hubbard, COLOR PRINT INSPECTOR [address] [place] [address] PCP - [facility]06/08/24Team MemberRelationshipSpecialtyStart DateEnd Date Bello Hilton MD [address] [place] [address] [facility] - [facility]09/21/22 Cristina Hubbard, COLOR PRINT INSPECTOR [address] [place] [address] PCP - [facility]06/08/24Team MemberRelationshipSpecialtyStart DateEnd Bello Hilton MD [address] [place] [address] PCP - [facility]09/21/22 Cristina Hubbard, COLOR PRINT INSPECTOR [address] [place] [address] PCP - [facility]06/08/24Team MemberRelationshipSpecialtyStart DateEnd Bello Hilton MD [address] [place] [address] PCP - [facility]09/21/22 Cristina Hubbard, COLOR PRINT INSPECTOR [address] [place] [address] [facility] - [facility]06/08/24 Team Status: Active Member Role/Relationship Status Dates Bello Hilton II MD Primary Care Provider Active Team Status: Inactive Member Role/Relationship Status Dates Bello Hilton II MD Primary Care Provider Active Start: December 13, 2024 End: December 13, 2024Ben Edgar ProviderActiveStart: December 13, 2024 End: December 13, 2024 Team Status: Inactive Member Role/Relationship Status Dates Bello Hilton II MD Primary Care Provider Active Start: December 13, 2024 End: December 13, 2024Ben Edgar ProviderActiveStart: December 13, 2024 End: December 13, 2024 Team Status: Inactive Member Role/Relationship Status Dates Bello Hilton II MD Primary Care Provider Active Start: December 19, 2024 End: December 19jacobo Shultz RD LDAttending ProviderActiveStart: December 19, 2024 End: December 19, 2024 Team Status: Inactive Member Role/Relationship Status Dates Bello Hilton II MD Primary Care Provider Active Start: January 02, 2025 End: January 02, 2025Martha Pineda ProviderActiveStart: January 02, 2025 End: January 02, 2025 Team Status: Inactive Member Role/Relationship Status Dates Bello Hilton II MD Primary Care Provider Active Start: February 26, 2025 End: February 26, 2025Ben Edgar ProviderActiveStart: February 26, 2025 End: February 26, 2025StAASHISH Toscanoeferring ProviderActiveStart: February 26, 2025 End: February 26, 2025Team MemberRelationshipSpecialtyStart DateEnd Date Bello Hilton MD [address] [facility] [address] [place] [address] PCP - [facility]09/21/22 Cristina Hubbard, COLOR PRINT INSPECTOR [address] [facility] [address] [place] [address] PCP - [facility]06/08/24Team MemberRelationshipSpecialtyStart DateEnd Date Bello Hilton MD [address] [facility] [address] [place] [address] [facility] - [facility]09/21/22 Cristina Hubbard, COLOR PRINT INSPECTOR [address] [facility] [address] [place] [address] PCP - [facility]06/08/24 Team Status: Active Member Role/Relationship Status Dates Bello Hilton II MD Primary Care Provider Active Start: February 26, 2025 Darinel Edgar ProviderActiveStart: February 26, 2025 AASHISH Salazareferring ProviderActiveStart: February 26, 2025 Andrea Sam MDAttending ProviderActiveStart: February 26, 2025 Team Status: Inactive Member Role/Relationship Status Dates Bello Hilton II MD Primary Care Provider Active Start: March 12, 2025 End: March 12, 2025Rosa M Edgarending ProviderActiveStart: March 12, 2025 End: March 12, 2025 Goals (unrecognized section and content) Goals [...] BE BASED ON THE PRIMARY CLINICAL RECORDS. [facility]. provides no warranty or guarantee of the accuracy or completeness of information in this document.
--- OUTSIDE RECORDS SUMMARY | 2025-05-01 07:31 | XMS_ITS | Encounter Summary ---
Author Organization [facility] Address [address] [facility] [place] [address] Care Team Providers Care Optics Technical Officer Name Role Phone Bello Hilton MD Primary Care Provider [phone] Cristina Shepherd WELDING MACHINE ASSEMBLER Unavailable [phone] Encounter Details DateTypeDepartmentCare Team (Latest Contact Info)Tresqefjknf36/22/2025Telephone [facility] [place] [facility] [address] [facility] [address] [place] [address] Bello Hilton MD [address] [place], [place] [id number] Social History Tobacco UseTypesPacks/DayYears UsedDateSmoking Tobacco: NeverSmokeless Tobacco: NeverAlcohol UseStandard Drinks/WeekCommentsNever0 (1 standard drink = 0.6 oz pure alcohol)Caffeine intake: nonePHQ-2AnswerDate RecordedPatient Health Questionnaire-2 Lnudu91505/15/2024CommentsUnknownSex and Gender InformationValueDate RecordedSex Assigned at BirthNot [...] wondered if something could be sent to [facility] [place]. documented in this encounter Plan of Treatment Not on file documented as of this encounter Visit Diagnoses Diagnosis Acute cough- Primary documented in this encounter Additional Health Concerns AssessmentNoted TimePHQ-9 Depression Total Score: 010 8:00 AM EDT documented as of this encounter Care Teams Team MemberRelationshipSpecialtyStart DateEnd Date Bello Hilton MD [address] [facility] [address] [place] [address] PCP - GeneralInternal Medicine09/21/22 Cristina Shepherd NP [address] [place] [address] PCP - [facility]06/08/24documented as of this encounter
--- OUTSIDE RECORDS SUMMARY | 2025-05-01 07:31 | XMS_ITS | Clinical Summary ---
Author Organization [facility] Address [address] [place] [address] Phone Care Team Providers Care Apple Press Operator Name Role Phone Bello Hilton MD Primary Care Provider [phone] Allergies No known active allergies Medications MedicationSigDispense [...] 1 tablet 04/10/2024ctive Active Problems ProblemNoted DateDiagnosed EdhcSnjvazkap42/24/2023Esophageal cnpeuv4101/23/2023 Tracheal axtttdcs19/24/2023bnormal wgbynhwopbgynnpqi22/24/2023iabetes 01/23/2023 Assessment & Plan (08/03/2024 12:16 PM EDT): Assessment & Plan (04/20/2024 12:03 AM EST): Orders: Hemoglobin A1C; Future Rtzqtuj8301/23/20237439Zktyttewkjozty26/24/6887Sjduzaxyeqospp23/24/2023 Assessment & Plan (08/03/2024 12:16 PM EDT): Orders: Thyroid Stimulating Hormone; Future Thyroxine, Free; Future IGF-I; Future Assessment & Plan (04/20/2024 12:03 AM EST): Orders: Thyroid Stimulating Hormone; Future Thyroid Peroxidase (TPO) Antibody; Future Thyroxine, Free; Future Morbid obesity with BMI of 40.0-44.9, adult01/23/2023Never smoked any substance 01/23/2023OSA (obstructive sleep apnea)01/23/2023 Immunizations ImmunizationAdministration DatesNext DuePfizer COVID-19 vaccine, bivalent, age 12 years and older (30 mcg/0.3 mL)05/11/2022 Family History Medical HistoryRelationNameCommentsKidney cancerBrotherDiabetesFatherHeart failureFatherBreast cancerMotherDiabetesSisterRelationNameStatusCommentsBrother FatherDeceasedMotherSister Social History Tobacco UseTypesPacks/DayYears UsedDateSmoking Tobacco: NeverSmokeless Tobacco: Never Tobacco Cessation:Counseling Given: Not Answered PHQ-2AnswerDate RecordedPatient Health Questionnaire-2 Eozjt065regnant CommentsUnknownSex and Gender InformationValueDate RecordedSex Assigned at Not on fileLegal JedVmczdm63/25/2022 12:02 PM ESTGender IdentityNot on file Sexual OrientationNot on file Last Filed Vital Signs Vital SignReadingTime TakenCommentsBlood Hvcebdcy647/7407/19/2024 9:44 AM EDT Fnbtg483804/10/2024 8:36 AM RYBXwnkjlisnnf64.4 ??C (97.5 ??F)07/19/2024 9:44 AM EDTRespiratory Rate--Oxygen Saturation--Inhaled Oxygen Concentration--Pwpdcc074 kg (264 lb)07/19/2024 9:44 AM ONLGaqunx898.5 cm (5' 4.75 )07/19/2024 9:44 AM EDT Body Mass Index44.27007/19/2024 9:44 AM EDT Plan of Treatment DateTypeDepartmentCare Team (Latest Contact Info)Roiysxfafmc45/17/2026 10:30 AM EDTOffice Visit [facility] [address] [place] [address] [place] [address] Department of Medicine-Endocrinology [place] [id number] Health MaintenanceDue DateLast DoneCommentsCT Viybufxlffvj80/01/1958FIT-DNA (Cologuard)1957FIT1957Medicare Annual Wellness Visit (AWV)1957 Cpqzjyumnadxx44/01/1958MMR Vaccines (1 of 1 - Standard series)1958 Diabetes: Retinopathy Cvhccxzsl15/01/1968Hepatitis C Ciebzswjk41/01/1976 Hepatitis A Vaccines (1 of 2 - Risk 2-dose series)1976Pneumococcal Vaccine (1 of 2 - PCV)1976DTaP/Tdap/Td Vaccines (1 - Tdap)1979RSV High Risk: (Elderly (60+) or Population) (1 - Risk 50-74 years 1-dose series) 2007Zoster Vaccines (1 of 2)2007Hepatitis B Vaccines (1 of 3 - Risk 3-dose series)2017Bone Density Scan05/02/20222955Jkhwnvdov58/10/2024 05/11/2022, 05/06/2021, 05/05/2021, Additional history existsDiabetes: Hemoglobin A1COVID-19 Vaccine (2 - season) Influenza Vaccine (#1)2024Diabetes: Urine Protein Soqkqxqeh68, 06/22/2023Lipid PanelTSH Level, 02/15/20242567Lgodoenrhfh65Colorectal Cancer Nutpcifuh84/15/2029HIB VaccinesAged OutNo longer eligible based on patient's [...] / [employer] Hwg 500 Fiber Case [id number] Implanted:Qty: 1 on 03/19/2021 by Ronnie Siddiqui [facility] [id number] / / Description:Converted from [facility] Acute. Please see archived information for full log information. Additional Information:per bill only jdr 03/28/2021 1456pm Procedures Procedure NamePriorityDate/TimeAssociated DiagnosisCommentsHEMOGLOBIN P8IOjulkph 04/10/2024 10:47 AM EST Type 2 diabetes mellitus without complication, without long-term current use of insulin (Multi) QUYWgjzkdp10/10/2024 10:47 AM EST Adrenal nodule Hypothyroidism, unspecified type from Last 3 Months or Most Recently Relevant to Health Maintenance Results * Thyroid Stimulating Hormone (04/10/2024 10:47 AM EST)ComponentValueRef Range Test MethodAnalysis TimePerformed AtPathologist SignatureThyroid Stimulating Hormone3.610.44 - 3.98 mIU/L LAB IMMUNOASSAY METHOD 04/10/2024 1:06 PM [facility] LABSpecimen (Source)Anatomical Location / Laterality Collection Method / VolumeCollection TimeReceived TimeBloodVenous blood specimen / UnknownVenipuncture / Tmotqkj4504/10/2024 10:47 AM EST04/10/2024 10:47 AM EST Narrative [facility] - 04/10/2024 1:06 PM EST TSH testing is performed using different testing methodology at [facility] than at other [facility]. Direct result comparisons should only be made within the same method. Authorizing ProviderResult TypeResult StatusRamya Saldana [facility] BLOOD ORDERABLESFinal ResultPerforming OrganizationAddressCity/State/ZIP CodePhone Number [facility] [address] [place], [place] [phone] * (ABNORMAL) Hemoglobin A1C (04/10/2024 10:47 AM EST)ComponentValueRef RangeTest MethodAnalysis TimePerformed AtPathologist SignatureHemoglobin A1C5.9(H)See comment %04/10/2024 1:36 PM [facility] LABEstimated Average Ppvlzyz101Tsb Established mg/dL04/10/2024 1:36 PM [facility] LABSpecimen (Source)Anatomical Location / LateralityCollection Method / VolumeCollection TimeReceived Time BloodVenous blood specimen / UnknownVenipuncture / Fdmlbqa4104/10/2024 10:47 AM EST04/10/2024 10:47 AM EST Narrative [facility] - 04/10/2024 1:36 PM EST Diagnosis of Diabetes-Adults Non-Diabetic: < or = 5.6% Increased risk for developing diabetes: 5.7-6.4% Diagnostic of diabetes: > or = 6.5% Authorizing ProviderResult TypeResult StatusRamya Saldana [facility] BLOOD ORDERABLESFinal ResultPerforming OrganizationAddressCity/State/ZIP CodePhone Number [facility] [id number] [place] [phone] from Last 3 Months or Most Recently Relevant to Health Maintenance [place] [address] Care Teams Team MemberRelationshipSpecialtyStart DateEnd Date Bello Hilton MD [address] [address] PCP - GeneralInternal Ntvudxsf11/22/24
[2025-05-01 08:48] VITALS: BP 107/63; PULSE 93; TEMP 37.1; O2SAT 94
[2025-05-01 09:03] VITALS: BP 118/62; PULSE 86; O2SAT 95
[2025-05-01 09:20] VITALS: BP 130/70; PULSE 84; O2SAT 96
== END 2025-05-01 09:25 | disposition home or self-care (01) ==
LOC: SURGOUT 07:28
PROVIDERS: PCP Internal Medicine; Visit Provider Surgery
PROC: (CPT 45385; principal; 2025-05-01 08:15)
DX: Z12.11 Encounter for screening for malignant neoplasm of colon (principal); D12.5 Benign neoplasm of sigmoid colon; Z86.0101 Personal history of adenomatous and serrated colon polyps; I10 Essential (primary) hypertension; E78.5 Hyperlipidemia, unspecified; J45.909 Unspecified asthma, uncomplicated; E11.9 Type 2 diabetes mellitus without complications; E03.9 Hypothyroidism, unspecified; F41.9 Anxiety disorder, unspecified; Z90.49 Acquired absence of other specified parts of digestive tract; Z79.84 Long term (current) use of oral hypoglycemic drugs; G47.33 Obstructive sleep apnea (adult) (pediatric); Z87.891 Personal history of nicotine dependence; K21.9 Gastro-esophageal reflux disease without esophagitis; F31.9 Bipolar disorder, unspecified
CPT/HCPCS: 45385; 36415; 82948; 88305; J2003; J2704